=== PATIENT | female | born 1970 | race Caucasian/White ===

== ENCOUNTER → 2016-04-08 | Outpatient (CLI) | payer BC ==
[2016-04-08 17:14] LABS: EKG EKG PERFORMED
[2016-04-08 17:37] LABS: Basophils # (A) 0.1 k/uL (0-0.2); Basophils % (A) 0 %; CH 29.9; CHCM 32.5; Eosinophils # (A) 0.1 k/uL (0-0.7); Eosinophils % (A) 1 %; HCT 43.8 % (34.0-46.0); HDW 2.25; Luc # (Auto) 0.18; Luc % (Auto) 2; Lymphocytes # (A) 2.8 k/uL (1.0-4.8); Lymphocytes % (A) 25 %; MCH 29.6 pg (25.0-35.0); MCV 92.4 fL (80.0-100.0); Mean Platelet Volume 6.4; Monocytes # (A) 0.5 k/uL (0-1.0); Monocytes % (A) 4 %; Neutrophils # (A) 7.6 k/uL (1.3-7.7); Neutrophils % (A) 68 %; RBC 4.75 m/uL (3.80-5.40); WBC 11.1 k/uL (3.8-10.6); WBC (Perox) 11.25
[2016-04-08 17:48] LABS: ALT 40 U/L (9-52); AST 23 U/L (14-36); Alkaline Phosphatase 86 U/L (38-126); Anion Gap 8 mmol/L; Blood Urea Nitrogen 11 mg/dL (7-17); Calcium 8.8 mg/dL (8.4-10.2); Carbon Dioxide 28 mmol/L (22-30); Chloride 104 mmol/L (98-107); Glucose 172 mg/dL (74-99); Non-African American GFR(MDRD) >60 (>60 ml/min/1.73 sqM); Potassium 3.8 mmol/L (3.5-5.1); Sodium 140 mmol/L (137-145); Total Bilirubin 0.6 mg/dL (0.2-1.3); Total Protein 6.4 g/dL (6.3-8.2)
== END | disposition home or self-care (01) ==
LOC: LABWHC1 16:51
PROVIDERS: ATTEND Psychiatry & Neurology Pain Medicine
DX: G35 Multiple sclerosis (principal)
CPT/HCPCS: 36415; 80053; 85025; 86480; 93005

== ENCOUNTER 2016-06-22 11:54 | Inpatient (IN) | payer BC ==
[2016-06-22] MEDS ORDERED: IPRATROPIUM-ALBUTEROL 3 ML NEB INHALATION PRN (13:49)
[2016-06-22] MEDS ORDERED: LEVOFLOXACIN 750MG-D5W PMX 750 MG in DEXTROSE/WATER 1 150ML.BAG IVPB SCH (14:00)
[2016-06-22] MEDS: BUDESONIDE 0.5 MG/2 ML NEBU INHALATION SCH ×2 (14:11→19:59)
[2016-06-22 15:06] LABS: ALT 23 U/L (9-52); AST 17 U/L (14-36); Alkaline Phosphatase 72 U/L (38-126); Anion Gap 10 mmol/L; Blood Urea Nitrogen 10 mg/dL (7-17); Carbon Dioxide 29 mmol/L (22-30); Chloride 105 mmol/L (98-107); Glucose 96 mg/dL (74-99); Non-African American GFR(MDRD) >60 (>60 ml/min/1.73 sqM); Potassium 3.7 mmol/L (3.5-5.1); Sodium 144 mmol/L (137-145); Total Bilirubin 0.6 mg/dL (0.2-1.3); Total Protein 6.9 g/dL (6.3-8.2)
--- NOTE | 2016-06-22 15:19 | XR ---
EXAMINATION TYPE: XR chest 2V DATE OF EXAM: 06/22/2016 3:15 PM COMPARISON: 06/06/2015 TECHNIQUE: PA and lateral views submitted. HISTORY: Pneumonia FINDINGS: The lungs are clear and there is no pneumothorax, pleural effusion, or focal pneumonia. IMPRESSION: 1. No acute process.
[2016-06-22 16:06] LABS: Basophils # (A) 0.1 k/uL (0-0.2); Basophils % (A) 1 %; CH 30.1; CHCM 33.2; Eosinophils % (A) 0 %; HCT 40.2 % (34.0-46.0); HDW 2.57; Luc % (Auto) 4; Lymphocytes # (A) 3.3 k/uL (1.0-4.8); Lymphocytes % (A) 33 %; MCH 29.4 pg (25.0-35.0); MCHC 32.3 g/dL (31.0-37.0); MCV 91.1 fL (80.0-100.0); Mean Platelet Volume 7.6; Monocytes # (A) 0.6 k/uL (0-1.0); Monocytes % (A) 6 %; Neutrophils # (A) 5.8 k/uL (1.3-7.7); Neutrophils % (A) 56 %; RBC 4.41 m/uL (3.80-5.40); WBC 10.3 k/uL (3.8-10.6)
[2016-06-22] MEDS: IPRATROPIUM-ALBUTEROL 3 ML NEB INHALATION SCH ×2 (16:47→20:00)
[2016-06-22] MEDS: methylPREDNISolone SOD SUCCI 125 MG/2 ML VIAL IV SCH ×3 (17:57→23:53)
[2016-06-22] MEDS: HEPARIN SODIUM,PORCINE 5,000 UNIT/ML 1 ML VIAL SQ SCH ×3 (17:58→23:53)
[2016-06-22] MEDS: SODIUM CHLORIDE 0.9% 1,000 ML IV SCH (18:05)
[2016-06-22] MEDS: FAMOTIDINE 20 MG TAB PO SCH ×2 (18:08→23:53)
[2016-06-22 18:15] LABS: Glucose,Whole Blood 137 mg/dL (75-99)
[2016-06-22] MEDS: INSULIN LISPRO (humaLOG) 300 UNIT/3 ML VIAL SQ SCH ×2 (18:20→22:38)
[2016-06-22] MEDS: guaiFENesin 600 MG TABLET.ER PO SCH (18:22)
[2016-06-22] MEDS ORDERED: DICLOFENAC SODIUM GEL 100 GM TUBE TOPICAL PRN (18:59)
[2016-06-22] MEDS ORDERED: MORPHINE SULFATE IR 15 MG TABLET PO PRN (18:59)
[2016-06-22] MEDS ORDERED: LOPERAMIDE 2 MG CAP PO PRN (19:04)
[2016-06-22] MEDS ORDERED: ATORVASTATIN 10 MG TAB PO SCH (21:00)
[2016-06-22] MEDS ORDERED: MONTELUKAST 10 MG TAB PO SCH (21:00)
[2016-06-22 21:17] LABS: Glucose,Whole Blood 173 mg/dL (75-99)
[2016-06-22 22:03] LABS: Hemoglobin A1C 6.1 % (4.2-6.1)
--- NOTE | 2016-06-22 22:15 | CONS ---
DATE OF CONSULTATION: 06/22/2016. HISTORY OF PRESENT ILLNESS: The patient is a 46-year-old female who follows with Dr. Wynne. She states that she has been sick off and on from April since her grandchildren and her daughter and son-in-law moved in with them. She also has a significant history of MS and problems with hypertension, hypothyroidism, and chronic pain. She also states that she has problems due to her Capoxone causing her to have problems with diabetes mellitus and lupus. She does have a pain pump of morphine. She states that she has been having problems with diarrhea the last few days, problems with night sweats and sore throat. She has been sick since Monday and has been having a cough occasionally productive of yellow-green sputum. Subsequently due to her comorbidities and not getting any better, she was admitted into the hospital for further care. She was started on nebulizer treatments of Duoneb and Pulmicort and started on antibiotic therapy of Levaquin and steroids of Solu-Medrol which are appropriate at this time. The patient also has a significant history of asthma, dyslipidemia, hypertension, hypothyroidism, and migraines. She is examined. She has tight wheezes and cough. She denies any chest pain. She denies any nausea or vomiting. She has no swelling to her extremities at this time. Her allergies are to ADHESIVES, FENTANYL AND LATEX. Her home medications included: 1. Dilaudid pump. 2. Voltaren gel as needed. 3. Flector patch as needed. 4. Norvasc 5 mg daily. 5. Adipex 37.5 mg daily. 6. Morphine sulfate IR 15 mg every 5 hours as needed. 7. Robaxin 1000 mg q.i.d. 8. Amitiza 24 mcg twice a day. 9. Synthroid 100 mcg daily. 10. Copaxone 40 mg on Monday, Monday and Monday. 11. Nuedexta 20/10 mg 1 cap twice a day. 12. Cymbalta 30 mg daily. 13. Vitamin D3 2000 units daily. 14. Lipitor 10 mg daily. 15. ProAir 2 puffs every 6 hours as needed. FAMILY HISTORY: Significant for both parents being alive. She does not know much about them. She is estranged from them, other than father has a history of hypertension. SOCIAL HISTORY: The patient is . She has 5 children, all girls, one girl, does have a history of epilepsy. She is a never smoker. No marijuana. No recreational drugs or alcohol use. 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 She wears glasses. Her past surgical history is significant for hysterectomy and tubal ligation, though she still has ovaries. She has had two tummy tucks, rhinoplasty, bladder suspension, breast surgery implant and morphine pump, right knee arthroscopy, T10 laminectomy for her spinal cord stimulator and removal. PAST MEDICAL HISTORY: Significant for MS, migraines, myalgia, asthma, dyslipidemia, hypertension, hypothyroidism, degenerative disc disease, febrile seizures as a child, uterine cancer, chronic pain, positive for lupus and diabetes mellitus, and both of these complications from Copaxone. Review of systems was completed with patient. Head to toe assessment was done and is negative other than what is noted in her HPI. On physical examination, vital signs show temperature of 97.9, heart rate 88, respiratory rate 20, blood pressure is 110/85. Oxygen saturation on room air is 95%. Labs show sodium of 144, potassium 3.7, chloride 105, carbon dioxide 29, BUN 10, creatinine 0.7. Glucose is 96. Calcium is 9, total bilirubin 0.6, AST 17, ALT 23, alkaline phosphatase 72, total protein 6.9, albumin 3.9. Chest x-ray shows no acute process. GENERAL: She is a 46-year-old female, with mild/mod respiratory distress. HEENT: Head is atraumatic, normocephalic. Pupils are equal, reactive. Mucous membranes slightly dry. NECK: Short, supple. LUNGS: Sounds with scattered wheezes heard throughout, tight. CARDIOVASCULAR: S1 and S2 is heard; regular. No gallop. ABDOMEN: Soft. Bowel sounds are heard, nontender. No obvious masses or organomegaly palpated. No rebound or rigidity. EXTREMITIES: No edema. Dorsalis pedis pulses palpable. NEUROLOGIC: She is awake, alert. IMPRESSION: 1. Acute exacerbation asthma. 2. Multiple sclerosis. 3. Myalgia with chronic pain for which she has a morphine pump. 4. History of hypertension. 5. Hypothyroidism. 6. Degenerative disc disease. 7. Diarrhea. PLAN: Patient's medications have been reviewed. Agree with nebulizer treatments, antibiotic therapy and IV steroids. Continue with GI and DVT prophylaxis. We will add Mucinex, glucose checks and insulin sliding scale. We will also order flutter therapy and incentive spirometer. Oxygen to keep sats 90% or better. Increase activity as tolerated. We will wait for rest of her labs results. CBC is pending. Cultures as needed. Thank you for the consultation. Will continue to follow patient closely with you and make further changes as necessary. I performed a history and physical examination of this patient and discussed the same with the dictator. I agree with the dictator's note. Any additional findings/opinions, etc. will be noted. KYARA
[2016-06-22] MEDS: Dextromethorphan Hbr/Quinidine [Nuedexta 20-10 Mg Capsule] PO SCH (22:40)
[2016-06-22] MEDS: METHOCARBAMOL 500 MG TAB PO SCH (22:40)
[2016-06-23] MEDS: methylPREDNISolone SOD SUCCI 125 MG/2 ML VIAL IV SCH (05:44)
[2016-06-23] MEDS ORDERED: LEVOTHYROXINE 100 MCG TAB PO SCH (06:30)
[2016-06-23] MEDS: METHOCARBAMOL 500 MG TAB PO SCH (07:36)
[2016-06-23] MEDS: SODIUM CHLORIDE 0.9% 1,000 ML IV SCH (07:36)
[2016-06-23 07:42] LABS: Glucose,Whole Blood 163 mg/dL (75-99)
[2016-06-23] MEDS: BUDESONIDE 0.5 MG/2 ML NEBU INHALATION SCH (08:56)
[2016-06-23] MEDS: IPRATROPIUM-ALBUTEROL 3 ML NEB INHALATION SCH (08:56)
[2016-06-23] MEDS ORDERED: amLODIPine 5 MG TAB PO SCH (09:00)
[2016-06-23] MEDS ORDERED: DULoxetine HCL 30 MG CAPSULE.DR PO SCH (09:00)
[2016-06-23] MEDS ORDERED: Phentermine Hcl [Adipex-P] 37.5 MG PO SCH (09:00)
[2016-06-23] MEDS: Dextromethorphan Hbr/Quinidine [Nuedexta 20-10 Mg Capsule] PO SCH (09:29)
[2016-06-23] MEDS: HEPARIN SODIUM,PORCINE 5,000 UNIT/ML 1 ML VIAL SQ SCH (09:29)
--- NOTE | 2016-06-23 09:31 | P.DS ---
Providers Date of admission: 06/22/16 12:56 Expected date of discharge: 06/23/16 Attending physician: Sean Hunt Consults: 06/22/16 13:44 Consult Physician Urgent Consulting Provider: Tuyet Nagy Consult Reason/Comments: asthma Do you want consulting provider notified?: Yes Primary care physician: Sean Hunt [facility] Course: 46-year-old female was a direct admit from Dr. Hunt's office on June 22 patient stated she was being seen for shortness of breath patient stated that she just felt like she could not breathe. She states the symptoms have been on and off since April of this year. She states that all started to occur when her grandchildren her daughter and daughter has been moved in with them. She states she has a significant history of multiple sclerosis has a pain contract with a pain pump of morphine and place. Patient was seen in the office was noted to be audibly wheezing was advised to come into the hospital to be admitted. Patient was started on updrafts IV Solu-Medrol and DuoNeb and Pulmicort and IV antibiotic in the form of Levaquin. Patient's symptoms significant only improved and patient was adamant about being discharged on June 23 to home. Patient was requesting a nebulizer machine stated that she did not have one at home this was set up to the patient case manager. Patient did have poor IV access anesthesiologist was not able to obtain IV access. Patient received a couple doses of IV Solu-Medrol before losing IV access. Patient's home meds worse be started as appropriate and on the day of discharge patient was not wheezing nonproductive dry cough patient felt that she was acting back to baseline was adamant about being discharged stated she would see continuous pillowcase cutter doctor in an outpatient setting next week and with see Dr. Hunt in the office tomorrow . Patient's lungs were clear did not qualify home O2. Subsequently the patient was discharged home Impression discharge diagnosis Present on admission shortness of breath with audible wheezing due to an acute exacerbation of asthma Mild asthma History of multiple sclerosis Chronic pain on opiate and a pain pump of morphine Hypothyroid on supplements myalgia with chronic pain with morphine pump History of chronic diarrhea Acute exacerbation of asthma The above dictated assessment and findings were discussed with dr marilee Howard and the plan of care have been dictated as directed. Olesya Poe nurse practitioner acting as a scribe for dr hunt Plan - Discharge Summary New Discharge Prescriptions: Levofloxacin [Levaquin] 500 mg PO DAILY #7 tab Loperamide [Imodium] 2 mg PO QID PRN #30 cap PRN Reason: Diarrhea Montelukast [Singulair] 10 mg PO DAILY #30 tab guaiFENesin [Mucinex] 1,200 mg PO Q12HR #60 tablet.er methylPREDNISolone Dose Pack [Medrol Dose Pack] 4 mg PO DIRECTED #21 package Discharge Medication List Albuterol Sulfate [Proair Hfa] 2 puff INHALATION RT-Q6H PRN 09/26/15 [History] Atorvastatin [Lipitor] 10 mg PO DAILY 09/26/15 [History] DULoxetine HCL [Cymbalta] 30 mg PO DAILY 09/26/15 [History] Diclofenac Sodium [Voltaren Gel] 4 gm TOPICAL DAILY PRN 09/26/15 [History] Lubiprostone [Amitiza] 24 mcg PO BID 09/26/15 [History] Phentermine HCl [Adipex-P] 37.5 mg PO QAM 09/26/15 [History] amLODIPine BESYLATE [Norvasc] 5 mg PO DAILY 09/26/15 [History] Cholecalciferol [Vitamin D3] 2,000 unit PO DAILY 02/24/16 [History] Diclofenac Epolamine [Flector 1.3% Patch] 2 patch TRANSDERM DAILY PRN 02/24/16 [ History] Glatiramer Acetate [Copaxone] 40 mg SQ MOWEFR 02/24/16 [History] Levothyroxine Sodium [Synthroid] 100 mcg PO DAILY 02/24/16 [History] Methocarbamol [Robaxin] 1,000 mg PO QID 02/24/16 [History] Morphine Sulfate Ir [MSIR] 15 mg PO Q5H PRN 02/24/16 [History] Dextromethorphan HBr/Quinidine [Nuedexta 20-10 mg Capsule] 1 cap PO BID [History] Morphine Pain Pump 5 mg EPIDURAL DAILY 06/22/16 [History] Ipratropium-Albuterol Nebulize [Duoneb 0.5 mg-3 mg/3 ml Soln] 3 ml INHALATION RT -QID ampul.neb 06/23/16 [Rx] Levofloxacin [Levaquin] 500 mg PO DAILY #7 tab 06/23/16 [Rx] Loperamide [Imodium] 2 mg PO QID PRN #30 cap 06/23/16 [Rx] Montelukast [Singulair] 10 mg PO DAILY #30 tab 06/23/16 [Rx] guaiFENesin [Mucinex] 1,200 mg PO Q12HR #60 tablet.er 06/23/16 [Rx] methylPREDNISolone Dose Pack [Medrol Dose Pack] 4 mg PO DIRECTED #21 package 06/23/16 [Rx] Follow up Appointment(s)/Referral(s): Sean Hunt MD [Primary Care Provider] - 06/24/16 Tuyet Nagy DO [Doctor of Osteopathic Medicine] - 1 Week Discharge Disposition: HOME SELF-CARE
[2016-06-23] MEDS: INSULIN LISPRO (humaLOG) 300 UNIT/3 ML VIAL SQ SCH (09:34)
[2016-06-23] MEDS: guaiFENesin 600 MG TABLET.ER PO SCH (09:42)
[2016-06-23] MEDS: FAMOTIDINE 20 MG TAB PO SCH (09:42)
[2016-06-23 09:54] VITALS: BP 130/71; RESP 16; TEMP 99.2
[2016-06-23 10:11] VITALS: PULSE 85
--- NOTE | 2016-06-23 11:16 | HP ---
DATE OF ADMISSION: CHIEF COMPLAINT: A 46-year-old white female who was admitted to the hospital for outpatient failure of treatment for significant cough, congestion, shortness of breath, asthma exacerbation despite oral steroids and updraft treatments. She has been around many sick people including children and family members. She has immune deficiency with multiple sclerosis, hypothyroidism, hypertension. She has some chronic pain also. Her Copaxone has given her diabetes mellitus and lupus and difficulties with this. She is on a pain pump for morphine. She had some diarrhea for the past few days also and productive cough, green-yellow sputum. She was admitted after failing outpatient treatment. She is on home medicines: 1. Dilaudid pump. 2. Voltaren Gel. 3. Flector patch. 4. Norvasc. 5. Adipex. 6. Morphine sulfate. 7. Robaxin. 8. Amitiza. 9. Synthroid. 10. Copaxone. 11. Nuedexta. 12. Cymbalta. 13. Vitamin D3. 14. Lipitor. 15. ProAir. FAMILY HISTORY: Estranged from her parents. Father had hypertension. SOCIAL HISTORY: , 5 children, all girls. ( ). She denies smoking. No marijuana. No recreational drug use or alcohol use. She is not working every since 2009. SURGICAL HISTORY: She has hysterectomy, tubal ligation, 2 tummy tucks, rhinoplasty, bladder suspension, breast surgery implant, morphine ( ), right knee arthroscopy, T10 laminectomy, spinal cord stimulator removal. She has multiple sclerosis, migraines, myalgias, asthma, dyslipidemia, hypertension, hypothyroidism, degenerative disc disease, febrile seizure as a child, uterine cancer, chronic pain, lupus, diabetes mellitus. REVIEW OF SYSTEMS: A 14-point review of systems negative except for as mentioned in HPI. Temperature 97.9, respiratory rate 25 to 35. She has blood pressure 110/85. She is 95% to 93% on room air. She has audible wheezing on exam. CARDIOVASCULAR: S1 and S2. LUNGS: Shows expiratory and inspiratory wheezes x4. Some mild retractions. CARDIAC: Tachycardia, S1, S2. Heart rate is 117. GI: Distended due to obesity. He ABDOMEN: Soft, distended, obesity. EXTREMITIES: No cyanosis, clubbing, edema. VASCULAR: Normal dorsalis pedis, posterior tibial and radial pulse. Liver enzymes are normal. Calcium os 9. Bilirubin 0.6. Creatinine is 0.7. HEAD: Normocephalic, atraumatic. Pupils equal, and reactive to light and accommodation. NECK: Supple. LUNGS: As mentioned. EXTREMITIES: No cyanosis, clubbing, edema. NEUROLOGIC: Alert and oriented x3. ASSESSMENT: 1. Acute asthma exacerbation. 2. Tracheobronchitis. 3. Multiple sclerosis. 4. Hypoxemic respiratory failure. 5. ( ). 6. Chronic pain. 7. Hypertension. 8. Hypothyroidism. 9. Degenerative disc disease. 10. Diarrhea. IV Levaquin and IV steroids, updrafts albuterol and Atrovent, adding Mucinex. Pulmonary consultation. Please see further orders.
[2016-06-24] MEDS ORDERED: Glatiramer Acetate [Copaxone] 40 MG SQ SCH (12:00)
== END 2016-06-23 10:25 | disposition home or self-care (01) | DRG 202 ==
LOC: 6PED 12:56
PROVIDERS: ADMIT Family Medicine; ATTEND Family Medicine
DX: J45.21 Mild intermittent asthma with (acute) exacerbation (principal); D84.9 Immunodeficiency, unspecified; M32.9 Systemic lupus erythematosus, unspecified; G35 Multiple sclerosis; E11.9 Type 2 diabetes mellitus without complications; E03.9 Hypothyroidism, unspecified; E78.5 Hyperlipidemia, unspecified; G89.29 Other chronic pain; I10 Essential (primary) hypertension; M79.1 Myalgia; G43.909 Migraine, unspecified, not intractable, without status migrainosus; R19.7 Diarrhea, unspecified; J02.9 Acute pharyngitis, unspecified; E66.9 Obesity, unspecified; Z79.891 Long term (current) use of opiate analgesic; Z79.899 Other long term (current) drug therapy; Z91.040 Latex allergy status; Z68.39 Body mass index [BMI] 39.0-39.9, adult; Z88.8 Allergy status to other drugs, medicaments and biological substances; Z82.49 Family history of ischemic heart disease and other diseases of the circulatory system
CPT/HCPCS: 71020; 80053; 83036; 85025; 94640; 94667

== ENCOUNTER → 2017-01-05 | Outpatient (CLI) | payer BC, MEDICARE ==
[2017-01-05 18:10] LABS: Basophils # (A) 0.1 k/uL (0-0.2); Basophils % (A) 1 %; CH 30.3; CHCM 32.5; Eosinophils # (A) 0.3 k/uL (0-0.7); Eosinophils % (A) 3 %; HDW 2.33; HGB 14.4 gm/dL (11.4-16.0); Luc # (Auto) 0.11; Luc % (Auto) 1; Lymphocytes # (A) 3.3 k/uL (1.0-4.8); Lymphocytes % (A) 36 %; MCH 29.4 pg (25.0-35.0); MCHC 31.4 g/dL (31.0-37.0); MCV 93.8 fL (80.0-100.0); Mean Platelet Volume 7.1; Monocytes # (A) 0.4 k/uL (0-1.0); Monocytes % (A) 5 %; Neutrophils # (A) 4.9 k/uL (1.3-7.7); Neutrophils % (A) 54 %; RDW 14.2 % (11.5-15.5); WBC (Perox) 9.47
[2017-01-05 18:45] LABS: Appearance,Urine Cloudy (Clear); Bilirubin,Urine Negative (Negative); Calcium Oxalate Crystals,Urine Many /hpf; Glucose,Urine (UA) Negative (Negative); Ketones,Urine Trace (Negative); Leukocyte Esterase,Urine Negative (Negative); Mucus,Urine Few /hpf; Nitrite,Urine Negative (Negative); PH, Urine 5.5 (5.0-8.0); Particle Count 13239; Protein,Urine 1+ (Negative); Specific Gravity,Urine 1.027 (1.001-1.035); Squamous Epithelial Cell,Urine 6 /hpf (0-4); UA Billing (MACRO vs. MICRO) MICRO; WBC,Urine 1 /hpf (0-5)
== END | disposition home or self-care (01) ==
LOC: LABWHC1 17:15
PROVIDERS: ATTEND Psychiatry & Neurology Pain Medicine
DX: G35 Multiple sclerosis (principal)
CPT/HCPCS: 36415; 81001; 85025

== ENCOUNTER → 2017-01-09 | Outpatient (CLI) | payer BC, MEDICARE ==
[2017-01-09 13:38] VITALS: BP 119/85; PULSE 93; RESP 16; TEMP 98.3; BMI 42.0
--- NOTE | 2017-01-09 16:29 | P.HPBAR ---
Bariatric H&P - History & Physicial H&P Date: 01/09/17 History & Physicial: Visit/CC: Initial Visit Patient initial contact: Initial weight: 121.563 kg Initial weight in pounds: 268.00 Height: 5 ft 7 in Initial BMI: 42.0 Last weight: Current weight: 121.563 kg Current weight in pounds: 268.00 Current BMI: 42.0 [place] body weight (based on NIH guidelines): 61.235 kg Excess body weight loss: 0.0% The patient is a 46 year-old F who presents for Bariatric Assessment. Patient presents today for new patient consultation. She has had lifetime problems obesity. She has gained approximately 100 pounds over the last 5 years. She has a history of MS. Past Medical History Past Medical History: Asthma, Neurologic Disorder, Thyroid Disorder Additional Past Medical History / Comment(s): MS, DJD, back pain History of Any Multi-Drug Resistant Organisms: None Reported Past Surgical History: Hysterectomy, Orthopedic Surgery, Tubal Ligation Additional Past Surgical History / Comment(s): rhinoplasty, bladder suspension, breast sx, morphine pump Past Anesthesia/Blood Transfusion Reactions: No Reported Reaction Past Psychological History: No Psychological Hx Reported Smoking Status: Never smoker Past Alcohol Use History: None Reported Past Drug Use History: None Reported - Past Family History Father Family Medical History: Hypertension Mother Family Medical History: Hypertension Surgical - Exam Vital Signs Temp Pulse Resp BP 98.3 F 93 16 119/85 01/09/17 13:35 01/09/17 13:35 01/09/17 13:35 01/09/17 13:35 - General well developed, no distress - Eyes PERRL - Abdomen Abdomen: soft, non tender Bariatric Assessment & Plan Plan: I had a lengthy discussion with the patient regarding sleeve gastrectomy. I went over the risks and benefits of procedure including conversion to the open procedure and injury to the stomach liver spleen I also discussed the possibility of sleeve gastrectomy perforation, bleeding or scarring. The patient will be scheduled for EGD. Bariatric Checklist Checklist: Plan: Checklist: EGD: 1. Hiatal hernia: 2. H. Pylori: HgbA1c: Vitamin D: Smoking: Never smoker Primary care physician referral: MULLALLY Psychiatry clearance: Cardiology clearance: Sleep study: Diet journal: VTE risk score: VTE risk level: Rehab needs at discharge:
== END | disposition home or self-care (01) ==
LOC: BARWHC3 13:07
PROVIDERS: ATTEND Surgery
DX: E66.01 Morbid (severe) obesity due to excess calories (principal); Z68.41 Body mass index [BMI] 40.0-44.9, adult
CPT/HCPCS: 99201

== ENCOUNTER 2017-01-10 17:27 | Emergency (ER) | payer BC, MEDICARE ==
[2017-01-10 17:32] VITALS: TEMP 98.2
[2017-01-10] MEDS ORDERED: SODIUM CHLORIDE 0.9% 1,000 ML IV STA ×2 (17:42→17:43)
--- NOTE | 2017-01-10 17:57 | ED ---
Recheck HPI - General Chief Complaint: Recheck/Abnormal Lab/Rx Stated Complaint: Dehydrated Time Seen by Provider: 01/10/17 17:40 Source: patient Mode of arrival: ambulatory Limitations: no limitations - History of Present Illness Initial Comments: Patient has a history of MS, states she was sent from her neurologist office today for dehydration. Patient states she had "crystals in her urine" & patient states they're concerned her diabetes may be uncontrolled. Patient states she is on metformin. Has no history of DKA. Patient states she does feel dehydrated. Patient states she has exacerbation of her MS pain and muscle spasms in her back. States her neurologist increased her morphine intrathecal pump dosing today in office. However neurologist wanted her to go to Hospital for IV hydration. - Related Data Home Medications Medication Instructions Recorded Confirmed Albuterol Sulfate [Proair Hfa] 2 puff INHALATION RT-Q6H PRN 09/26/15 09/02/16 Atorvastatin [Lipitor] 10 mg PO DAILY 09/26/15 09/02/16 DULoxetine HCL [Cymbalta] 30 mg PO DAILY 09/26/15 09/02/16 Diclofenac Sodium [Voltaren Gel] 4 gm TOPICAL DAILY PRN 09/26/15 09/02/16 Lubiprostone [Amitiza] 24 mcg PO BID 09/26/15 09/02/16 Phentermine HCl [Adipex-P] 37.5 mg PO QAM 09/26/15 09/02/16 amLODIPine BESYLATE [Norvasc] 5 mg PO DAILY 09/26/15 09/02/16 Diclofenac Epolamine [Flector 1.3% 2 patch TRANSDERM DAILY PRN 02/24/16 09/02/16 Patch] Glatiramer Acetate [Copaxone] 40 mg SQ MOWEFR 02/24/16 09/02/16 Levothyroxine Sodium [Synthroid] 100 mcg PO DAILY 02/24/16 09/02/16 Methocarbamol [Robaxin] 1,000 mg PO QID 02/24/16 09/02/16 Morphine Sulfate Ir [MSIR] 15 mg PO Q5H PRN 02/24/16 09/02/16 Dextromethorphan HBr/Quinidine 1 cap PO BID 06/22/16 09/02/16 [Nuedexta 20-10 mg Capsule] Morphine Pain Pump 5 mg EPIDURAL DAILY 06/22/16 09/02/16 metFORMIN HCL [Metformin HCl] 125 mg PO DAILY 08/31/16 09/02/16 Previous Rx's Medication Instructions Recorded Ipratropium-Albuterol Nebulize 3 ml INHALATION RT-QID ampul.neb 06/23/16 [Duoneb 0.5 mg-3 mg/3 ml Soln] Loperamide [Imodium] 2 mg PO QID PRN #30 cap 06/23/16 Montelukast [Singulair] 10 mg PO DAILY #30 tab 06/23/16 Allergies Allergy/AdvReac Type Severity Reaction Status Date / Time adhesive Allergy Rash/Hives Verified 01/10/17 18:43 adhesive tape Allergy Rash/Hives Verified 01/10/17 18:43 fentanyl Allergy Rash/Hives Verified 01/10/17 18:43 latex Allergy Rash/Hives Verified 01/10/17 18:43 Review of Systems ROS Statement: Those systems with pertinent positive or pertinent negative responses have been documented in the HPI. ROS Other: All systems not noted in ROS Statement are negative. Constitutional: Denies: fever, chills, weakness Eyes: Denies: vision change ENT: Denies: ear pain, throat pain, congestion Respiratory: Denies: cough, dyspnea Cardiovascular: Denies: chest pain, palpitations Endocrine: Reports: fatigue. Denies: polydipsia, polyuria Gastrointestinal: Denies: abdominal pain, nausea, vomiting Genitourinary: Denies: urgency, dysuria, frequency, hematuria, discharge Musculoskeletal: Reports: back pain (Chronic) Skin: Denies: rash Neurological: Denies: headache, weakness, numbness, paresthesias, confusion Past Medical History Past Medical History: Asthma, Neurologic Disorder, Thyroid Disorder Additional Past Medical History / Comment(s): MS, DJD, back pain History of Any Multi-Drug Resistant Organisms: None Reported Past Surgical History: Hysterectomy, Orthopedic Surgery, Tubal Ligation Additional Past Surgical History / Comment(s): rhinoplasty, bladder suspension, breast sx, morphine pump Past Anesthesia/Blood Transfusion Reactions: No Reported Reaction Past Psychological History: No Psychological Hx Reported Smoking Status: Never smoker Past Alcohol Use History: None Reported Past Drug Use History: None Reported - Past Family History Father Family Medical History: Hypertension Mother Family Medical History: Hypertension General Exam - General Exam Comments Initial Comments: Patient laying on side on the bed. Well appearing. Appears mildly fatigued. Well-groomed well-dressed. Calm, pleasant. Limitations: no limitations General appearance: alert, in no apparent distress Head exam: Present: atraumatic, normocephalic Eye exam: Present: normal appearance, PERRL, EOMI ENT exam: Present: mucous membranes moist, normal external ear exam Neck exam: Present: normal inspection, full ROM Respiratory exam: Present: normal lung sounds bilaterally. Absent: respiratory distress, wheezes, rales, rhonchi Cardiovascular Exam: Present: regular rate, normal rhythm GI/Abdominal exam: Present: soft. Absent: distended, tenderness, guarding, rebound, rigid Extremities exam: Present: normal inspection Back exam: Absent: tenderness, muscle spasm, paraspinal tenderness, vertebral tenderness Neurological exam: Present: alert, oriented X3, CN II-XII intact. Absent: altered, motor sensory deficit Psychiatric exam: Present: normal affect, normal mood Skin exam: Present: warm, dry, intact, normal color. Absent: rash Course Vital Signs 01/10/17 17:28 Temperature 98.2 F Pulse Rate 101 H Respiratory 18 Rate Blood Pressure 128/75 O2 Sat by Pulse 98 Oximetry Medical Decision Making - Medical Decision Making Patient sent for IV hydration. Patient has no focal abnormalities on exam, including no focal neuro deficits. Infection on urinalysis. Patient with trace ketones. Normal glucose on basic metabolic panel. No significant lab abnormalities. Patient does not appear significantly dehydrated by lab work or exam. Patient was given IV fluids in the ER. Patient updated with all results. Feels comfortable going home. Patient to follow-up with her neurologist regarding her chronic MS symptoms. Return immediately if new or worsening symptoms. Discussed need for evaluation by urologist if her concern for calcium crystals in urine persists. - Lab Data Result diagrams: 01/10/17 18:06 01/10/17 18:06 Lab Results 01/10/17 01/10/17 01/10/17 Range/Units 18:06 18:06 18:06 WBC 10.3 (3.8-10.6) k/uL RBC 4.84 (3.80-5.40) m/uL Hgb 14.4 (11.4-16.0) gm/dL Hct 44.4 (34.0-46.0) % MCV 91.8 (80.0-100.0) fL MCH 29.7 (25.0-35.0) pg MCHC 32.3 (31.0-37.0) g/dL RDW 13.0 (11.5-15.5) % Plt Count 392 (150-450) k/uL Neutrophils % 55 % Lymphocytes % 35 % Monocytes % 5 % Eosinophils % 3 % Basophils % 1 % Neutrophils # 5.6 (1.3-7.7) k/uL Lymphocytes # 3.6 (1.0-4.8) k/uL Monocytes # 0.5 (0-1.0) k/uL Eosinophils # 0.4 (0-0.7) k/uL Basophils # 0.1 (0-0.2) k/uL Sodium (137-145) mmol/L Potassium (3.5-5.1) mmol/L Chloride (98-107) mmol/L Carbon Dioxide (22-30) mmol/L Anion Gap mmol/L BUN (7-17) mg/dL Creatinine (0.52-1.04) mg/dL Est GFR (MDRD) Af Amer (>60 ml/min/1.73 sqM) Est GFR (MDRD) Non-Af (>60 ml/min/1.73 sqM) Glucose (74-99) mg/dL Calcium (8.4-10.2) mg/dL Urine Color Yellow Urine Appearance Cloudy H (Clear) Urine pH 5.5 (5.0-8.0) Ur Specific [place] 1.026 (1.001-1.035) Urine Protein 1+ H (Negative) Urine Glucose (UA) Negative (Negative) Urine Ketones Trace H (Negative) Urine Blood Negative (Negative) Urine Nitrite Negative (Negative) Urine Bilirubin Negative (Negative) Urine Urobilinogen 2.0 (<2.0) mg/dL Ur Leukocyte Esterase Negative (Negative) Urine RBC <1 (0-5) /hpf Urine WBC 2 (0-5) /hpf Ur Squamous Epith Cells 11 H (0-4) /hpf Urine Bacteria Occasional H (None) /hpf Hyaline Casts 26 H (0-2) /lpf Urine Mucus Occasional H (None) /hpf Urine HCG, Qual Not Detected (Not Detectd) 01/10/17 Range/Units 18:06 WBC (3.8-10.6) k/uL RBC (3.80-5.40) m/uL Hgb (11.4-16.0) gm/dL Hct (34.0-46.0) % MCV (80.0-100.0) fL MCH (25.0-35.0) pg MCHC (31.0-37.0) g/dL RDW (11.5-15.5) % Plt Count (150-450) k/uL Neutrophils % % Lymphocytes % % Monocytes % % Eosinophils % % Basophils % % Neutrophils # (1.3-7.7) k/uL Lymphocytes # (1.0-4.8) k/uL Monocytes # (0-1.0) k/uL Eosinophils # (0-0.7) k/uL Basophils # (0-0.2) k/uL Sodium 140 (137-145) mmol/L Potassium 4.1 (3.5-5.1) mmol/L Chloride 102 (98-107) mmol/L Carbon Dioxide 29 (22-30) mmol/L Anion Gap 9 mmol/L BUN 9 (7-17) mg/dL Creatinine 0.71 (0.52-1.04) mg/dL Est GFR (MDRD) Af Amer >60 (>60 ml/min/1.73 sqM) Est GFR (MDRD) Non-Af >60 (>60 ml/min/1.73 sqM) Glucose 108 H (74-99) mg/dL Calcium 9.5 (8.4-10.2) mg/dL Urine Color Urine Appearance (Clear) Urine pH (5.0-8.0) Ur Specific [place] (1.001-1.035) Urine Protein (Negative) Urine Glucose (UA) (Negative) Urine Ketones (Negative) Urine Blood (Negative) Urine Nitrite (Negative) Urine Bilirubin (Negative) Urine Urobilinogen (<2.0) mg/dL Ur Leukocyte Esterase (Negative) Urine RBC (0-5) /hpf Urine WBC (0-5) /hpf Ur Squamous Epith Cells (0-4) /hpf Urine Bacteria (None) /hpf Hyaline Casts (0-2) /lpf Urine Mucus (None) /hpf Urine HCG, Qual (Not Detectd) Disposition Clinical Impression: Dehydration symptoms Disposition: HOME SELF-CARE Condition: Good Instructions: Dehydration (ED) Additional Instructions: Follow-up with your neurologist as directed. Referrals: Sean Wynne MD [Primary Care Provider] - 1-2 days
[2017-01-10] MEDS ORDERED: ONDANSETRON 4 MG/2 ML VIAL IVP STA (18:11)
[2017-01-10 18:14] LABS: Basophils # (A) 0.1 k/uL (0-0.2); Basophils % (A) 1 %; CH 29.3; CHCM 32.1; Eosinophils # (A) 0.4 k/uL (0-0.7); Eosinophils % (A) 3 %; HCT 44.4 % (34.0-46.0); HGB 14.4 gm/dL (11.4-16.0); Luc # (Auto) 0.14; Luc % (Auto) 1; Lymphocytes # (A) 3.6 k/uL (1.0-4.8); Lymphocytes % (A) 35 %; MCH 29.7 pg (25.0-35.0); MCHC 32.3 g/dL (31.0-37.0); MCV 91.8 fL (80.0-100.0); Mean Platelet Volume 6.5; Monocytes # (A) 0.5 k/uL (0-1.0); Monocytes % (A) 5 %; Neutrophils # (A) 5.6 k/uL (1.3-7.7); Neutrophils % (A) 55 %; RBC 4.84 m/uL (3.80-5.40); WBC 10.3 k/uL (3.8-10.6)
[2017-01-10 18:15] LABS: Appearance,Urine Cloudy (Clear); Bacteria,Urine Occasional /hpf; Bilirubin,Urine Negative (Negative); Glucose,Urine (UA) Negative (Negative); Ketones,Urine Trace (Negative); Leukocyte Esterase,Urine Negative (Negative); Mucus,Urine Occasional /hpf; Nitrite,Urine Negative (Negative); PH, Urine 5.5 (5.0-8.0); Particle Count 7845; Protein,Urine 1+ (Negative); RBC,Urine <1 /hpf (0-5); Specific Gravity,Urine 1.026 (1.001-1.035); Squamous Epithelial Cell,Urine 11 /hpf (0-4); UA Billing (MACRO vs. MICRO) MICRO; WBC,Urine 2 /hpf (0-5)
[2017-01-10 18:26] LABS: Anion Gap 9 mmol/L; Blood Urea Nitrogen 9 mg/dL (7-17); Calcium 9.5 mg/dL (8.4-10.2); Carbon Dioxide 29 mmol/L (22-30); Chloride 102 mmol/L (98-107); Glucose 108 mg/dL (74-99); Non-African American GFR(MDRD) >60 (>60 ml/min/1.73 sqM); Potassium 4.1 mmol/L (3.5-5.1); Sodium 140 mmol/L (137-145)
[2017-01-10 18:52] VITALS: BP 132/61; PULSE 89; RESP 16
== END 2017-01-10 18:52 | disposition home or self-care (01) ==
LOC: EC 17:27
DX: E86.0 Dehydration (principal); E07.9 Disorder of thyroid, unspecified; E11.9 Type 2 diabetes mellitus without complications; G35 Multiple sclerosis; Z79.891 Long term (current) use of opiate analgesic; Z79.84 Long term (current) use of oral hypoglycemic drugs; Z79.899 Other long term (current) drug therapy; Z88.5 Allergy status to narcotic agent; Z91.040 Latex allergy status; Z91.048 Other nonmedicinal substance allergy status
CPT/HCPCS: 99284 ×2; 96374 ×2; 96361 ×2; 36415; 80048; 85025; 81001; 81025; J2405

== ENCOUNTER → 2017-03-20 | Outpatient (CLI) | payer BC, MEDICARE ==
[2017-03-20 15:12] VITALS: BP 131/87; PULSE 120; RESP 16; TEMP 98; BMI 42.0
--- NOTE | 2017-03-20 16:23 | P.HPBAR ---
Bariatric H&P - History & Physicial H&P Date: 03/20/17 History & Physicial: Visit/CC: egd follow-up Patient initial contact: Initial weight: 121.563 kg Initial weight in pounds: 268.00 Height: 5 ft 7 in Initial BMI: 42.0 Last weight: Current weight: 121.676 kg Current weight in pounds: 268.00 Current BMI: 42.0 [place] body weight (based on NIH guidelines): 61.235 kg Excess body weight loss: 0.0% The patient is a 46 year-old F who presents for Bariatric Assessment. The patient presents today for new patient consultation for sleeve gastrectomy. She has had lifetime problems obesity. The patient attended informational seminar in November. She is interested in the gastric sleeve. Her BMI is 42 Past Medical History Past Medical History: Asthma, Diabetes Mellitus, Hypertension, Musculoskeletal Disorder, Neurologic Disorder, Thyroid Disorder Additional Past Medical History / Comment(s): MS, DJD, back pain, History of Any Multi-Drug Resistant Organisms: None Reported Past Surgical History: Hysterectomy, Orthopedic Surgery, Tubal Ligation Additional Past Surgical History / Comment(s): rhinoplasty, bladder suspension, breast sx, morphine pump , RT KNEE SCOPE, TUMMY TUCK, SCS DEVICE INSERTED AND REMOVED-DOES NOT HAVE T-11 IN SPINE. Past Anesthesia/Blood Transfusion Reactions: Postoperative Nausea & Vomiting ( PONV) Smoking Status: Never smoker - Past Family History Father Family Medical History: Hypertension Mother Family Medical History: Hypertension Surgical - Exam Vital Signs Temp Pulse Resp BP 98.0 F 120 H 16 131/87 03/20/17 15:08 03/20/17 15:08 03/20/17 15:08 03/20/17 15:08 - General well developed, no distress - Eyes PERRL - ENT normal pinna - Neck no masses - Respiratory normal expansion - Cardiovascular Rhythm: regular - Abdomen Abdomen: soft, non tender Bariatric Assessment & Plan Plan: Morbid obesity with BMI 42. Patient will undergo workup for sleeve gastrectomy. She'll be scheduled for EGD. I went over the risks and benefits of procedure. I discussed with the risk of staple line disruption bleeding or scarring. She will follow-up in 8 weeks after her EGD. Bariatric Checklist Checklist: Plan: Checklist: EGD: 1. Hiatal hernia: 2. H. Pylori: HgbA1c: Vitamin D: Smoking: Never smoker Primary care physician referral: D[facility]IE Psychiatry clearance: Cardiology clearance: Sleep study: Diet journal: VTE risk score: VTE risk level: Rehab needs at discharge:
== END | disposition home or self-care (01) ==
LOC: BARWHC3 14:06
PROVIDERS: ATTEND Surgery
DX: E66.01 Morbid (severe) obesity due to excess calories (principal); Z68.41 Body mass index [BMI] 40.0-44.9, adult
CPT/HCPCS: 99211

== ENCOUNTER → 2017-04-19 | Outpatient (CLI) | payer BC, MEDICARE ==
[2017-04-19 18:24] LABS: Basophils # (A) 0.1 k/uL (0-0.2); Basophils % (A) 1 %; Eosinophils # (A) 0.2 k/uL (0-0.7); Eosinophils % (A) 3 %; HCT 42.8 % (34.0-46.0); HGB 13.5 gm/dL (11.4-16.0); Lymphocytes # (A) 3.5 k/uL (1.0-4.8); Lymphocytes % (A) 39 %; MCH 28.5 pg (25.0-35.0); MCHC 31.4 g/dL (31.0-37.0); MCV 90.8 fL (80.0-100.0); Mean Platelet Volume 7.2; Monocytes # (A) 0.6 k/uL (0-1.0); Monocytes % (A) 6 %; Neutrophils # (A) 4.6 k/uL (1.3-7.7); Neutrophils % (A) 51 %; Platelet Count 357 k/uL (150-450); RBC 4.72 m/uL (3.80-5.40); RDW 13.1 % (11.5-15.5); WBC 9.1 k/uL (3.8-10.6)
[2017-04-19 18:27] LABS: ALT 38 U/L (9-52); AST 19 U/L (14-36); Albumin 3.6 g/dL (3.5-5.0); Alkaline Phosphatase 76 U/L (38-126); Anion Gap 10 mmol/L; Blood Urea Nitrogen 12 mg/dL (7-17); Calcium 9.2 mg/dL (8.4-10.2); Carbon Dioxide 27 mmol/L (22-30); Chloride 104 mmol/L (98-107); Glucose 201 mg/dL (74-99); Potassium 3.8 mmol/L (3.5-5.1); Sodium 141 mmol/L (137-145); Total Bilirubin 0.2 mg/dL (0.2-1.3)
== END | disposition home or self-care (01) ==
LOC: LABPAT 16:59
PROVIDERS: ATTEND Surgery
DX: Z01.812 Encounter for preprocedural laboratory examination (principal); R94.31 Abnormal electrocardiogram [ECG] [EKG]
CPT/HCPCS: 80053; 85025; 93005

== ENCOUNTER 2017-04-26 13:46 | Inpatient (IN) | payer BC, MEDICARE ==
[2017-04-20 11:18] VITALS: BMI 38.9
[~2017-04-26 13:46] MED LIST: LIDOCAINE 1% 20 ML VIAL (10MG/ML) FOR IV START INTRADERMA PRN; ceFAZolin IN SWFI 2 GM/20 ML SYRINGE IVP ONE
--- NOTE | 2017-04-26 14:40 | P.GSHP ---
History of Present Illness H&P Date: 04/26/17 Chief Complaint: GERD This a 46-year-old female who presents today for laparoscopic hiatal hernia repair. Patient's had GERD symptoms. MiThe patient has had long-standing problems with reflux esophagitis. The patient underwent recent EGD is found have evidence of esophagitis. Patient has been well informed on the procedure of laparoscopic hiatal hernia repair. The patient is aware the risk of the conversion to the open procedure, risk of injury to the stomach, liver and spleen. The patient is also a risk of recurrent GERD and dysphagia symptoms. The patient understands there is a postoperative diet of full liquids for 2 weeks after surgery. 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 History of Any Multi-Drug Resistant Organisms: None Reported Past Surgical History: Hysterectomy, Orthopedic Surgery, Tubal Ligation Additional Past Surgical History / Comment(s): rhinoplasty, bladder suspension, breast sx, morphine pump , RT KNEE SCOPE, TUMMY TUCK, SCS DEVICE INSERTED AND REMOVED-DOES NOT HAVE T-11 IN SPINE. Past Anesthesia/Blood Transfusion Reactions: Motion Sickness, Postoperative Nausea & Vomiting (PONV) Past Psychological History: Depression Smoking Status: Never smoker Past Alcohol Use History: None Reported Past Drug Use History: None Reported - Past Family History Father Family Medical History: Hypertension Mother Family Medical History: Hypertension Medications and Allergies Home Medications Medication Instructions Recorded Confirmed Type Albuterol Sulfate [Proair Hfa] 2 puff INHALATION RT-Q6H PRN 09/26/15 04/26/17 History Atorvastatin [Lipitor] 10 mg PO DAILY 09/26/15 04/26/17 History Diclofenac Sodium [Voltaren Gel] 4 gm TOPICAL DAILY PRN 09/26/15 04/20/17 History Lubiprostone [Amitiza] 24 mcg PO BID 09/26/15 04/26/17 History Phentermine HCl [Adipex-P] 37.5 mg PO QAM 09/26/15 04/26/17 History Levothyroxine Sodium [Synthroid] 100 mcg PO QAM 02/24/16 04/26/17 History Morphine Sulfate Ir [MSIR] 15 mg PO Q4H PRN 02/24/16 04/26/17 History Dextromethorphan HBr/Quinidine 1 cap PO BID 06/22/16 04/26/17 History [Nuedexta 20-10 mg Capsule] Morphine Pain Pump 6.355 mg EPIDURAL DAILY 06/22/16 04/20/17 History Loperamide [Imodium] 2 mg PO QID PRN #30 cap 06/23/16 04/26/17 Rx Montelukast [Singulair] 10 mg PO DAILY #30 tab 06/23/16 04/26/17 Rx metFORMIN HCL [Metformin HCl] 250 mg PO DAILY 08/31/16 04/26/17 History Baclofen [Lioresal] 20 mg PO QID 01/10/17 04/26/17 History DULoxetine HCL [Cymbalta] 60 mg PO QAM 01/10/17 04/26/17 History Modafinil [Provigil] 400 mg PO DAILY 01/10/17 04/26/17 History cloNIDine 0.1 MG/24HR PATCH 1 patch TRANSDERM MO 01/10/17 04/26/17 History [Catapres-TTS] Butalb/Acetaminophen/Caffeine 1 cap PO AC-TID PRN 01/16/17 04/26/17 History [Esgic 50-325-40 Capsule] Ipratropium-Albuterol Nebulize 3 ml INHALATION RT-QID PRN 01/16/17 04/26/17 History [Duoneb 0.5 mg-3 mg/3 ml Soln] INSULIN LISPRO (HumaLOG) [HumaLOG] 0 units SQ ACHS PRN 01/19/17 04/20/17 History Cholecalciferol [Vitamin D3] 1,000 unit PO MOWE 03/03/17 04/26/17 History Metoclopramide [Reglan] 10 mg PO DAILY PRN 03/03/17 04/26/17 History Teriflunomide [Aubagio] 7 mg PO DAILY 03/03/17 04/26/17 History Allergies Allergy/AdvReac Type Severity Reaction Status Date / Time adhesive Allergy Severe Rash/Hives Verified 04/26/17 13:57 adhesive tape Allergy Severe Rash/Hives Verified 04/26/17 13:57 fentanyl Allergy Severe Rash/Hives Verified 04/26/17 13:57 latex Allergy Severe Rash/Hives Verified 04/26/17 13:57 Surgical - Exam Vital Signs Temp Pulse Resp BP Pulse Ox 98.5 F 112 H 18 136/85 95 04/26/17 14:06 04/26/17 14:06 04/26/17 14:06 04/26/17 14:06 04/26/17 14:06 - General well developed, no distress - Eyes PERRL - ENT normal pinna - Neck no masses - Respiratory normal expansion - Cardiovascular Rhythm: regular - Abdomen Abdomen: soft, non tender Assessment and Plan Assessment: GERD, hiatal hernia. We'll perform laparoscopic hiatal hernia..
[2017-04-26] MEDS: LACTATED RINGERS 1,000 ML IV SCH ×2 (14:42→18:06)
[2017-04-26] MEDS ORDERED: HEPARIN SODIUM,PORCINE 5,000 UNIT/ML 1 ML VIAL SQ ONE (14:43)
[2017-04-26] MEDS ORDERED: DEXAMETHASONE SOD PHOSPHATE 10 MG/ML 1 ML VIAL IV ONE (14:44)
[2017-04-26] MEDS ORDERED: ONDANSETRON 4 MG/2 ML VIAL IVP ONE (14:44)
[2017-04-26 14:49] LABS: Glucose,Whole Blood 145 mg/dL (75-99)
[2017-04-26] MEDS ORDERED: fentaNYL (PF) 50 MCG/ML 2 ML AMP ONE (15:15)
[2017-04-26] MEDS ORDERED: ROCURONIUM BROMIDE 10 MG/ML 10 ML VIAL IV ONE (15:15)
[2017-04-26] MEDS ORDERED: LIDOCAINE 1% INJ 10MG/ML (20 ML MDV) ONE (15:15)
[2017-04-26] MEDS ORDERED: GLYCOPYRROLATE 0.2 MG/ML 2 ML VIAL ONE (15:15)
[2017-04-26] MEDS ORDERED: SUCCINYLCHOLINE CHLORIDE 100 MG/5 ML SYR IV ONE (15:15)
[2017-04-26] MEDS ORDERED: NEOSTIGMINE 1 MG/ML 10 ML VIAL ONE (15:15)
[2017-04-26] MEDS ORDERED: PROPOFOL 10 MG/ML 20 ML VIAL IV ONE (15:15)
[2017-04-26] MEDS ORDERED: KETOROLAC 30 MG/ML 1 ML VIAL ONE (15:15)
[2017-04-26] MEDS ORDERED: MIDAZOLAM 2 MG/2 ML VIAL ONE (15:15)
[2017-04-26] MEDS ORDERED: BUPIVACAINE (PF) 0.5% 30 ML VIAL SQ ONE (15:36)
[2017-04-26 16:37] LABS: Glucose,Whole Blood 136 mg/dL (75-99)
[2017-04-26] MEDS: HYDROmorphone 0.5 MG/0.5 ML SYRINGE IVP PRN ×4 (16:45→17:02)
--- NOTE | 2017-04-26 16:48 | P.OP ---
Date of Procedure: 04/26/17 Preoperative Diagnosis: Hiatal hernia GERD Postoperative Diagnosis: hiatal hernia GERD Procedure(s) Performed: Endoscopic repair of hiatal hernia with 180 fundoplication wrap Anesthesia: MINH Surgeon: Skyler Denney Estimated Blood Loss (ml): 5 Pathology: none sent Condition: stable Disposition: PACU Description of Procedure: The patient was placed on the operating table in the supine position. The patient received general anesthesia. And was placed in dorsal lithotomy position. The patient was prepped and draped in the usual sterile fashion. The skin incision sites were anesthetized with 1% local Xylocaine. The skin was incised in the left periumbilical area and then using a blade less 5 mm trocar under direct visualization panel cavity was entered. After adequate insufflation the laparoscope was then placed into the peritoneal cavity. Next a 5 mm trochars placed in the right epigastric position. Another 5 millimeter trocar the right lateral position. Another 5 millimeter trocar in the left lateral position a 5 mm trocar is placed in the left epigastric position. And then the initial 5 mm trocar was exchanged for a 10 mm trocar. The left lateral lobe liver was retracted. The hernia was seen. The crural defect was then dissected using the Harmonic scissors device. A 360 crural dissection was performed the esophagus stomach was reduced back into the peritoneal Cavity. The crural defect was then closed using 2-0 Ethibond suture. Next the fundus of the stomach was mobilized using the [place] scissors device. and then a 58-Emirati bougie dilator was placed oropharynx passed into the esophagus and stomach the 180 fundal plication wrap was then performed by grasping the fundus posteriorly and bringing it around the esophagus and stomach fundoplication was then performed using 2-0 Ethibond suture. Care was taken that the fundal location rested over top of the intra-abdominal esophagus. There was no injury seen to the stomach or esophagus. The dilator was then withdrawn. The abdomen was irrigated there is no bleeding seen. The trochars were then withdrawn and then skin incision sites were closed using 3-0 Monocryl suture Steri-Strips are applied. Patient thought procedure well and sent to recovery room in stable condition.
[2017-04-26] MEDS ORDERED: SODIUM CHLORIDE 0.9% 1,000 ML IV ONE (16:57)
[2017-04-26] MEDS: INSULIN ASPART 100 UNIT/ML 1 ML 10 ML VIAL SQ SCH ×2 (18:01→20:49)
[2017-04-26] MEDS: D5-0.45% NACL WITH KCL 20MEQ/L 1,000 ML IV SCH (18:07)
[2017-04-26] MEDS: HYDROmorphone 2 MG/ML 1 ML SYRINGE IVP PRN ×2 (18:08→22:12)
[2017-04-26 20:39] LABS: Glucose,Whole Blood 205 mg/dL (75-99)
[2017-04-26] MEDS ORDERED: METOCLOPRAMIDE 10 MG TAB PO PRN (22:41)
[2017-04-26] MEDS ORDERED: LOPERAMIDE 2 MG CAP PO PRN (22:41)
[2017-04-26] MEDS ORDERED: IPRATROPIUM-ALBUTEROL 3 ML NEB INHALATION PRN (22:41)
[2017-04-26] MEDS ORDERED: DICLOFENAC SODIUM GEL 100 GM TUBE TOPICAL PRN (22:41)
[2017-04-26] MEDS ORDERED: BUTALB/APAP/CAFF 50-325-40MG TAB PO PRN (22:41)
[2017-04-26] MEDS ORDERED: ALBUTEROL INHALER 60 PUFF/8 GM INHALER INHALATION PRN (22:41)
[2017-04-26] MEDS ORDERED: CHOLECALCIFEROL 1,000 UNIT TAB PO SCH (22:45)
[2017-04-26] MEDS: ATORVASTATIN 10 MG TAB PO SCH (23:49)
[2017-04-26] MEDS: BACLOFEN 10 MG TAB PO SCH (23:49)
[2017-04-27] MEDS: HYDROmorphone 2 MG/ML 1 ML SYRINGE IVP PRN ×3 (02:12→10:42)
[2017-04-27] MEDS: D5-0.45% NACL WITH KCL 20MEQ/L 1,000 ML IV SCH (02:13)
[2017-04-27] MEDS ORDERED: LEVOTHYROXINE 100 MCG TAB PO SCH (06:30)
[2017-04-27] MEDS ORDERED: metFORMIN 500 MG TAB PO SCH (07:30)
[2017-04-27 07:34] LABS: Glucose,Whole Blood 189 mg/dL (75-99)
[2017-04-27] MEDS: INSULIN ASPART 100 UNIT/ML 1 ML 10 ML VIAL SQ SCH ×2 (07:44→08:49)
[2017-04-27] MEDS ORDERED: methylPREDNISolone SOD SUCCI 40 MG/ML 1 ML VIAL IV SCH (08:00)
[2017-04-27 08:33] VITALS: BP 133/62; PULSE 79; RESP 18; TEMP 98
[2017-04-27] MEDS: BACLOFEN 10 MG TAB PO SCH (08:48)
[2017-04-27] MEDS: ATORVASTATIN 10 MG TAB PO SCH (08:48)
[2017-04-27] MEDS ORDERED: ENOXAPARIN 40 MG/0.4 ML SYRINGE SQ SCH (09:00)
[2017-04-27] MEDS ORDERED: NON-FORMULARY DRUG (Phentermine Hcl [Adipex-P] 37.5 MG) PO SCH (09:00)
[2017-04-27] MEDS ORDERED: TERIFLUNOMIDE 7 MG PO SCH (09:00)
[2017-04-27] MEDS ORDERED: DULoxetine HCL 60 MG CAPSULE.DR PO SCH (09:00)
[2017-04-27] MEDS ORDERED: MODAFINIL 200 MG TAB PO SCH (09:00)
[2017-04-27] MEDS ORDERED: MONTELUKAST 10 MG TAB PO SCH (09:00)
--- NOTE | 2017-04-27 09:54 | CONS ---
CONSULTATION This is a 46-year-old white female who is status post surgery with Dr. Denney for laparoscopic hiatal hernia repair. She had had problem with esophagitis. Performed procedure, laparoscopic hiatal hernia repair. History of GERD, asthma, diabetes mellitus, dyslipidemia, hypertension, memory impairment, neurologic disorder, hypothyroidism. SURGERY HISTORY: Hysterectomy, orthopedic surgery, tubal ligation, rhinoplasty, bladder suspension, breast surgery, morphine pump, right knee scope. PSYCH HISTORY: Depression. SOCIAL HISTORY: Does not smoke, drink alcohol or take illicit drugs. FAMILY HISTORY: Father with hypertension. Mother with hypertension. HOME MEDICATIONS: She takes ProAir HFA, Lipitor 10 daily, Voltaren gel b.i.d., Amitiza 25 b.i.d. She takes Adipex-P 1 daily p.r.n., Synthroid 100 mcg daily. She apparently takes Nuedexta 20/10 one tablet b.i.d. She has a morphine pain pump. She takes singular 10 mg daily, metformin 250 daily, Lioresal 20 q.i.d., Cymbalta 60 daily, Provigil 400 daily, clonidine Catapres patch 1 patch transdermal every 72 hours. She is on DuoNeb 3 mL q.i.d., Humalog a.c. and bedtime, vitamin D3 one thousand daily, Reglan 10 mg daily, Aubagio 7 mg daily. ALLERGIES: ADHESIVE and LATEX. PHYSICAL EXAM: Temp 98.5, pulse 100, respiratory 18 to 22, blood pressure is 138/85, O2 is 95% on room air. HEENT: Well developed, in no acute distress. OPHTHALMOLOGIC: Pupils equal, round, reactive to light and accommodation. ENT: Normal. NECK: Supple. No masses. RESPIRATORY: Clear. GI: Regular rate and rhythm. ABDOMEN: Soft, nontender. ASSESSMENT: 1. Gastroesophageal reflux disease, status post hiatal hernia. 2. Diabetes mellitus. 3. Hypertension. 4. Hypothyroidism. Continue home medications. Await hiatal hernia repair. Possible discharge home per Dr. Denney. Will monitor blood pressure, status post hernia repair with multiple blood pressure meds on board. MMODL / IJN: [id number] /
--- NOTE | 2017-04-27 11:26 | P.DS ---
Providers Date of admission: 04/26/17 13:46 Expected date of discharge: 04/27/17 Attending physician: Skyler Alicea Consults: 04/26/17 16:18 Consult Physician Routine Consulting Provider: Sean Wynne Reason/Comments: Medical management Do you want consulting provider notified?: Yes [facility] Course: 46-year-old female was admitted on elective basis to undergo an endoscopic repair of hiatal hernia with 180 fundoplication wrapfor symptomatic esophageal reflux symptoms. Patient has a long-standing problem with reflux esophagitis. Patient underwent a recent EGD which showed evidence of esophagitis. Patient underwent the procedure on April 26. There were no postop events. 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 Patient states she would feel more comfortable at home. It was anxious to be discharged stated she has a scheduled appointment tomorrow with her neurologist who manages her MS due to patient's MS has difficulty ambulating uses a walker at home and sits in a specialized chair due to her morphine pain pumpthe day of discharge there were no labs. On room air sats are 96 heart rate was in the 80s temp is 98.8 surgical sites showed no evidence of any redness. Abdomen was soft nondistended tolerating a Ruth clear diet patient was felt to be hemodynamically stable and appropriate proceed with a discharge impression discharge diagnoses Status post April 26 laparoscopic hiatal hernia repair with mesh for symptomatic reflux esophagitis Recent EGD showing evidence of esophagitis History of GERD symptomatic with a hiatal hernia history of MS The above impression and plan of care have been discussed and directed by signing physician. Olesya Poe nurse practitioner acting as scribe for signing physician. Plan - Discharge Summary Discharge Rx Participant: Yes New Discharge Prescriptions: Continue Phentermine HCl [Adipex-P] 37.5 mg PO QAM Atorvastatin [Lipitor] 10 mg PO DAILY Albuterol Sulfate [Proair Hfa] 2 puff INHALATION RT-Q6H PRN PRN Reason: Shortness Of Breath Lubiprostone [Amitiza] 24 mcg PO BID Diclofenac Sodium [Voltaren Gel] 4 gm TOPICAL DAILY PRN PRN Reason: Pain Morphine Sulfate Ir [MSIR] 15 mg PO Q4H PRN PRN Reason: Pain Levothyroxine Sodium [Synthroid] 100 mcg PO QAM Dextromethorphan HBr/Quinidine [Nuedexta 20-10 mg Capsule] 1 cap PO BID Morphine Pain Pump 6.355 mg EPIDURAL DAILY Montelukast [Singulair] 10 mg PO DAILY #30 tab Loperamide [Imodium] 2 mg PO QID PRN #30 cap PRN Reason: Diarrhea metFORMIN HCL [Metformin HCl] 250 mg PO DAILY cloNIDine 0.1 MG/24HR PATCH [Catapres-TTS] 1 patch TRANSDERM MO Modafinil [Provigil] 400 mg PO DAILY DULoxetine HCL [Cymbalta] 60 mg PO QAM Ipratropium-Albuterol Nebulize [Duoneb 0.5 mg-3 mg/3 ml Soln] 3 ml INHALATION RT-QID PRN PRN Reason: Shortness Of Breath Butalb/Acetaminophen/Caffeine [Esgic 50-325-40 Capsule] 1 cap PO AC-TID PRN PRN Reason: Headache INSULIN LISPRO (HumaLOG) [humaLOG] See Protocol SQ ACHS PRN PRN Reason: Blood Sugar - High Cholecalciferol [Vitamin D3] 1,000 unit PO MOWE Teriflunomide [Aubagio] 7 mg PO DAILY Metoclopramide [Reglan] 10 mg PO DAILY PRN PRN Reason: REFLUX Baclofen [Lioresal] 20 mg PO QID Discharge Medication List Albuterol Sulfate [Proair Hfa] 2 puff INHALATION RT-Q6H PRN 09/26/15 [History] Atorvastatin [Lipitor] 10 mg PO DAILY 09/26/15 [History] Diclofenac Sodium [Voltaren Gel] 4 gm TOPICAL DAILY PRN 09/26/15 [History] Lubiprostone [Amitiza] 24 mcg PO BID 09/26/15 [History] Phentermine HCl [Adipex-P] 37.5 mg PO QAM 09/26/15 [History] Levothyroxine Sodium [Synthroid] 100 mcg PO QAM 02/24/16 [History] Morphine Sulfate Ir [MSIR] 15 mg PO Q4H PRN 02/24/16 [History] Dextromethorphan HBr/Quinidine [Nuedexta 20-10 mg Capsule] 1 cap PO BID [History] Morphine Pain Pump 6.355 mg EPIDURAL DAILY 06/22/16 [History] Loperamide [Imodium] 2 mg PO QID PRN #30 cap 06/23/16 [Rx] Montelukast [Singulair] 10 mg PO DAILY #30 tab 06/23/16 [Rx] metFORMIN HCL [Metformin HCl] 250 mg PO DAILY 08/31/16 [History] DULoxetine HCL [Cymbalta] 60 mg PO QAM 01/10/17 [History] Modafinil [Provigil] 400 mg PO DAILY 01/10/17 [History] cloNIDine 0.1 MG/24HR PATCH [Catapres-TTS] 1 patch TRANSDERM MO 01/10/17 [ History] Butalb/Acetaminophen/Caffeine [Esgic 50-325-40 Capsule] 1 cap PO AC-TID PRN [History] Ipratropium-Albuterol Nebulize [Duoneb 0.5 mg-3 mg/3 ml Soln] 3 ml INHALATION RT -QID PRN 01/16/17 [History] INSULIN LISPRO (HumaLOG) [humaLOG] See Protocol SQ ACHS PRN 01/19/17 [History] Cholecalciferol [Vitamin D3] 1,000 unit PO MOWE 03/03/17 [History] Metoclopramide [Reglan] 10 mg PO DAILY PRN 03/03/17 [History] Teriflunomide [Aubagio] 7 mg PO DAILY 03/03/17 [History] Baclofen [Lioresal] 20 mg PO QID 04/26/17 [History] Follow up Appointment(s)/Referral(s): Skyler Alicea MD [STAFF PHYSICIAN] - 1 Week Maura No MD [STAFF PHYSICIAN] - 04/28/17 Activity/Diet/Wound Care/Special Instructions: full liquid diet for 2 weeks after surgery No tub bath for six weeks. Shower daily. No lifting over 4 pounds for the next 6 weeks. May use ice packs to surgical site. No driving while taking narcotic for pain. to not remove surgical dressings at surgical site until seen in a follow-up visit with dr alicea Discharge Disposition: HOME SELF-CARE
--- NOTE | 2017-04-27 11:45 | FL ---
Single contrast esophagram EXAMINATION TYPE: FL esophagus cervic/pharynx DATE OF EXAM: 04/27/2017 9:07 AM COMPARISON: None 6 images obtained. fl time 34 sec. Omnipaque 350 50ml. CLINICAL HISTORY: Status post Ede fundoplication The patient ingested contrast without difficulty or delay. Noted are changes of Ede fundoplicatio n. There is no evidence for leak or obstruction. Small amount of residual contrast within the distal esophagus. IMPRESSION: Post-surgical change of Ede fundoplication without evidence for leak or obstruction.
[2017-04-27 12:06] LABS: Glucose,Whole Blood 174 mg/dL (75-99)
[2017-04-27 17:15] LABS: Hemoglobin A1C 6.3 % (4.0-6.0)
[2017-05-01] MEDS ORDERED: cloNIDine 0.1 MG/24HR PATCH 1 PATCH PATCH TRANSDERM SCH (09:00)
== END 2017-04-27 12:42 | disposition home or self-care (01) | DRG 328 ==
LOC: 2ORWHC 13:46 → EDSTATUS 14:05 → 5MS5E 16:47
PROVIDERS: ADMIT Surgery; ATTEND Surgery
PROC: 0BQT4ZZ Repair Diaphragm, Percutaneous Endoscopic Approach (ICD-10-PCS; 2017-04-26)
PROC: 0DV44ZZ Restriction of Esophagogastric Junction, Percutaneous Endoscopic Approach (ICD-10-PCS; principal; 2017-04-26 15:30)
DX: K44.9 Diaphragmatic hernia without obstruction or gangrene (principal); G35 Multiple sclerosis; E03.9 Hypothyroidism, unspecified; E11.9 Type 2 diabetes mellitus without complications; E78.5 Hyperlipidemia, unspecified; F32.9 Major depressive disorder, single episode, unspecified; I10 Essential (primary) hypertension; J45.909 Unspecified asthma, uncomplicated; K21.0 Gastro-esophageal reflux disease with esophagitis; Z79.899 Other long term (current) drug therapy; Z79.4 Long term (current) use of insulin; H81.90 Unspecified disorder of vestibular function, unspecified ear; H53.9 Unspecified visual disturbance; R41.3 Other amnesia; Z91.040 Latex allergy status; Z88.8 Allergy status to other drugs, medicaments and biological substances; Z91.048 Other nonmedicinal substance allergy status; Z90.710 Acquired absence of both cervix and uterus; Z82.49 Family history of ischemic heart disease and other diseases of the circulatory system
CPT/HCPCS: 74210; 83036

== ENCOUNTER → 2017-05-01 | Outpatient (CLI) | payer BC, MEDICARE ==
[2017-05-01 13:41] VITALS: BP 137/99; PULSE 101; RESP 16; TEMP 98.2; BMI 41.2
--- NOTE | 2017-05-01 15:04 | P.HPBAR ---
Bariatric H&P - History & Physicial H&P Date: 05/01/17 History & Physicial: Visit/CC: Hernia Repair follow-up Patient initial contact: Initial weight: 121.563 kg Initial weight in pounds: 268.00 Height: 5 ft 7 in Initial BMI: 42.0 Last weight: Current weight: 119.408 kg Current weight in pounds: 263.00 Current BMI: 41.2 [place] body weight (based on NIH guidelines): 61.235 kg Excess body weight loss: 3.7% The patient is a 46 year-old F who presents for Bariatric Assessment. The patient is status post laparoscopic hiatal hernia repair. She's doing well she denies a significant dysphagia or GERD symptoms. She has minimal incisional pain. Past Medical History Past Medical History: Asthma, Diabetes Mellitus, Hypertension, Musculoskeletal Disorder, Neurologic Disorder, Thyroid Disorder Additional Past Medical History / Comment(s): MS, DJD, back pain, History of Any Multi-Drug Resistant Organisms: None Reported Past Surgical History: Hysterectomy, Orthopedic Surgery, Tubal Ligation Additional Past Surgical History / Comment(s): rhinoplasty, bladder suspension, breast sx, morphine pump , RT KNEE SCOPE, TUMMY TUCK, SCS DEVICE INSERTED AND REMOVED-DOES NOT HAVE T-11 IN SPINE. Past Anesthesia/Blood Transfusion Reactions: Postoperative Nausea & Vomiting ( PONV) Past Psychological History: Depression Smoking Status: Never smoker Past Alcohol Use History: None Reported Past Drug Use History: None Reported - Past Family History Father Family Medical History: Hypertension Mother Family Medical History: Hypertension Surgical - Exam Vital Signs Temp Pulse Resp BP 98.2 F 101 H 16 137/99 05/01/17 13:24 05/01/17 13:24 05/01/17 13:24 05/01/17 13:24 - General well developed, no distress - Eyes PERRL - ENT normal pinna - Neck no masses - Respiratory normal expansion - Cardiovascular Rhythm: regular - Abdomen Abdomen: soft, non tender Bariatric Assessment & Plan Plan: Status post laparoscopic hiatal hernia repair. Patient is doing quite well. She will follow-up in one month. Bariatric Checklist Checklist: Plan: Checklist: EGD: 1. Hiatal hernia: 2. H. Pylori: HgbA1c: Vitamin D: Smoking: Never smoker [facility] care [facility] [place] Psych[place]ry clearance: Cardiology clearance: Sleep study: Diet journal: VTE risk score: VTE risk level: Rehab needs at discharge:
== END | disposition home or self-care (01) ==
LOC: BARWHC3 13:07
PROVIDERS: ATTEND Surgery
DX: Z09 Encounter for follow-up examination after completed treatment for conditions other than malignant neoplasm (principal); G89.18 Other acute postprocedural pain; J45.909 Unspecified asthma, uncomplicated; E11.9 Type 2 diabetes mellitus without complications; I10 Essential (primary) hypertension; F32.9 Major depressive disorder, single episode, unspecified; Z90.710 Acquired absence of both cervix and uterus; Z98.890 Other specified postprocedural states
CPT/HCPCS: 99211

== ENCOUNTER 2017-05-28 18:20 | Inpatient (IN) | payer BC, MEDICARE ==
[2017-05-28] MEDS ORDERED: PANTOPRAZOLE 40 MG/10 ML VIAL IVP STA (18:34)
[2017-05-28] MEDS ORDERED: MORPHINE SULFATE 4 MG/ML SYRINGE IV STA (18:34)
[2017-05-28] MEDS ORDERED: ONDANSETRON 4 MG/2 ML VIAL IVP STA (18:34)
[2017-05-28] MEDS ORDERED: SODIUM CHLORIDE 0.9% 1,000 ML IV STA (18:34)
[2017-05-28] MEDS ORDERED: RX INFO: IV CONTRAST WAS GIVEN 1 EACH MISC MISCELLANE PRN (18:34)
--- NOTE | 2017-05-28 18:43 | ED ---
General Adult HPI - General Chief complaint: Abdominal Pain Stated complaint: Abdominal pain Time Seen by Provider: 05/28/17 18:28 Source: patient, family, RN notes reviewed, old records reviewed Mode of arrival: wheelchair Limitations: no limitations - History of Present Illness Initial comments: This is a 46-year-old female the ER with severe abdominal pain nausea or vomiting. Unable to eat. Patient recently had recent fundoplication regarding hiatal hernia. Patient has surgery about a week about a month ago. The last week unable to eat.. No fevers, she has had abdominal pain. No recent bowel movements. - Related Data Home Medications Medication Instructions Recorded Confirmed Albuterol Sulfate [Proair Hfa] 2 puff INHALATION RT-Q6H PRN 09/26/15 05/28/17 Atorvastatin [Lipitor] 10 mg PO DAILY 09/26/15 05/28/17 Diclofenac Sodium [Voltaren Gel] 4 gm TOPICAL DAILY PRN 09/26/15 05/28/17 Lubiprostone [Amitiza] 24 mcg PO BID 09/26/15 05/28/17 Phentermine HCl [Adipex-P] 37.5 mg PO QAM 09/26/15 05/28/17 Levothyroxine Sodium [Synthroid] 100 mcg PO QAM 02/24/16 05/28/17 Morphine Sulfate Ir [MSIR] 15 mg PO Q4H PRN 02/24/16 05/28/17 Dextromethorphan HBr/Quinidine 1 cap PO BID 06/22/16 05/28/17 [Nuedexta 20-10 mg Capsule] Morphine Pain Pump 6.355 mg EPIDURAL DAILY 06/22/16 05/28/17 metFORMIN HCL [Metformin HCl] 250 mg PO DAILY 08/31/16 05/28/17 DULoxetine HCL [Cymbalta] 60 mg PO QAM 01/10/17 05/28/17 Modafinil [Provigil] 400 mg PO DAILY 01/10/17 05/28/17 cloNIDine 0.1 MG/24HR PATCH 1 patch TRANSDERM MO 01/10/17 05/28/17 [Catapres-TTS] Butalb/Acetaminophen/Caffeine 1 cap PO AC-TID PRN 01/16/17 05/28/17 [Esgic 50-325-40 Capsule] Ipratropium-Albuterol Nebulize 3 ml INHALATION RT-QID PRN 01/16/17 05/28/17 [Duoneb 0.5 mg-3 mg/3 ml Soln] INSULIN LISPRO (HumaLOG) [humaLOG] See Protocol SQ ACHS PRN 01/19/17 05/28/17 Cholecalciferol [Vitamin D3] 1,000 unit PO MOWE 03/03/17 05/28/17 Metoclopramide [Reglan] 10 mg PO DAILY PRN 03/03/17 05/28/17 Teriflunomide [Aubagio] 14 mg PO DAILY 03/03/17 06/01/17 Baclofen [Lioresal] 20 mg PO QID 04/26/17 05/28/17 Previous Rx's Medication Instructions Recorded Loperamide [Imodium] 2 mg PO QID PRN #30 cap 06/23/16 Montelukast [Singulair] 10 mg PO DAILY #30 tab 06/23/16 Allergies Allergy/AdvReac Type Severity Reaction Status Date / Time adhesive Allergy Severe Rash/Hives Verified 05/28/17 18:30 adhesive tape Allergy Severe Rash/Hives Verified 05/28/17 18:30 fentanyl Allergy Severe Rash/Hives Verified 05/28/17 18:30 latex Allergy Severe Rash/Hives Verified 05/28/17 18:30 Review of Systems ROS Statement: Those systems with pertinent positive or pertinent negative responses have been documented in the HPI. ROS Other: All systems not noted in ROS Statement are negative. Past Medical History Past Medical History: Asthma, Diabetes Mellitus, Hypertension, Musculoskeletal Disorder, Neurologic Disorder, Thyroid Disorder Additional Past Medical History / Comment(s): MS, DJD, back pain, History of Any Multi-Drug Resistant Organisms: None Reported Past Surgical History: Hernia Repair, Hysterectomy, Orthopedic Surgery, Tubal Ligation Additional Past Surgical History / Comment(s): rhinoplasty, bladder suspension, breast sx, morphine pump , RT KNEE SCOPE, TUMMY TUCK, SCS DEVICE INSERTED AND REMOVED-DOES NOT HAVE T-11 IN SPINE. Past Anesthesia/Blood Transfusion Reactions: Postoperative Nausea & Vomiting ( PONV) Past Psychological History: Depression Smoking Status: Never smoker Past Alcohol Use History: None Reported Past Drug Use History: None Reported - Past Family History Father Family Medical History: Hypertension Mother Family Medical History: Hypertension General Exam Limitations: no limitations Course Vital Signs 05/28/17 05/28/17 05/28/17 18:21 20:33 21:41 Temperature 97.9 F 98.1 F 98.1 F Pulse Rate 83 80 71 Respiratory 20 16 18 Rate Blood Pressure 123/73 132/60 127/65 O2 Sat by Pulse 98 95 97 Oximetry Medical Decision Making - Medical Decision Making 46 female the ER for evaluation of abdominal pain, persistent nausea and vomiting. Intractable pain. Patient to be admitted and evaluated for pain control - Lab Data Result diagrams: 05/28/17 18:58 05/31/17 07:57 Lab Results 05/28/17 05/28/17 05/28/17 Range/Units 18:58 18:58 18:58 WBC 4.4 (3.8-10.6) k/uL RBC 4.57 (3.80-5.40) m/uL Hgb 13.2 (11.4-16.0) gm/dL Hct 41.5 (34.0-46.0) % MCV 90.8 (80.0-100.0) fL MCH 28.9 (25.0-35.0) pg MCHC 31.8 (31.0-37.0) g/dL RDW 12.7 (11.5-15.5) % Plt Count 280 (150-450) k/uL Neutrophils % 52 % Lymphocytes % 37 % Monocytes % 5 % Eosinophils % 3 % Basophils % 1 % Neutrophils # 2.3 (1.3-7.7) k/uL Lymphocytes # 1.6 (1.0-4.8) k/uL Monocytes # 0.2 (0-1.0) k/uL Eosinophils # 0.1 (0-0.7) k/uL Basophils # 0.1 (0-0.2) k/uL Sodium 140 (137-145) mmol/L Potassium 4.2 (3.5-5.1) mmol/L Chloride 106 (98-107) mmol/L Carbon Dioxide 25 (22-30) mmol/L Anion Gap 9 mmol/L BUN 11 (7-17) mg/dL Creatinine 0.50 L (0.52-1.04) mg/dL Est GFR (MDRD) Af Amer >60 (>60 ml/min/1.73 sqM) Est GFR (MDRD) Non-Af >60 (>60 ml/min/1.73 sqM) Glucose 103 H (74-99) mg/dL Plasma Lactic Acid Antoni 0.9 (0.7-2.0) mmol/L Calcium 9.0 (8.4-10.2) mg/dL Total Bilirubin 0.5 (0.2-1.3) mg/dL AST 62 H (14-36) U/L ALT 64 H (9-52) U/L Alkaline Phosphatase 75 (38-126) U/L Troponin I (0.000-0.034) ng/mL Total Protein 6.5 (6.3-8.2) g/dL Albumin 3.9 (3.5-5.0) g/dL Amylase 59 (30-110) U/L Lipase 28 (23-300) U/L 05/28/17 Range/Units 18:58 WBC (3.8-10.6) k/uL RBC (3.80-5.40) m/uL Hgb (11.4-16.0) gm/dL Hct (34.0-46.0) % MCV (80.0-100.0) fL MCH (25.0-35.0) pg MCHC (31.0-37.0) g/dL RDW (11.5-15.5) % Plt Count (150-450) k/uL Neutrophils % % Lymphocytes % % Monocytes % % Eosinophils % % Basophils % % Neutrophils # (1.3-7.7) k/uL Lymphocytes # (1.0-4.8) k/uL Monocytes # (0-1.0) k/uL Eosinophils # (0-0.7) k/uL Basophils # (0-0.2) k/uL Sodium (137-145) mmol/L Potassium (3.5-5.1) mmol/L Chloride (98-107) mmol/L Carbon Dioxide (22-30) mmol/L Anion Gap mmol/L BUN (7-17) mg/dL Creatinine (0.52-1.04) mg/dL Est GFR (MDRD) Af Amer (>60 ml/min/1.73 sqM) Est GFR (MDRD) Non-Af (>60 ml/min/1.73 sqM) Glucose (74-99) mg/dL Plasma Lactic Acid Antoni (0.7-2.0) mmol/L Calcium (8.4-10.2) mg/dL Total Bilirubin (0.2-1.3) mg/dL AST (14-36) U/L ALT (9-52) U/L Alkaline Phosphatase (38-126) U/L Troponin I <0.012 (0.000-0.034) ng/mL Total Protein (6.3-8.2) g/dL Albumin (3.5-5.0) g/dL Amylase (30-110) U/L Lipase (23-300) U/L - Radiology Data Radiology results: report reviewed (CT abdomen and pelvis unremarkable), image reviewed Disposition Clinical Impression: Diaphragmatic hernia, Abdominal pain, Intractable nausea and vomiting, Intractable abdominal pain Disposition: ADMITTED IP TO THIS [facility] Condition: Good
[2017-05-28 19:13] LABS: Basophils # (A) 0.1 k/uL (0-0.2); Basophils % (A) 1 %; Eosinophils # (A) 0.1 k/uL (0-0.7); Eosinophils % (A) 3 %; HCT 41.5 % (34.0-46.0); HGB 13.2 gm/dL (11.4-16.0); Lymphocytes # (A) 1.6 k/uL (1.0-4.8); Lymphocytes % (A) 37 %; MCH 28.9 pg (25.0-35.0); MCHC 31.8 g/dL (31.0-37.0); MCV 90.8 fL (80.0-100.0); Mean Platelet Volume 7.3; Monocytes # (A) 0.2 k/uL (0-1.0); Monocytes % (A) 5 %; Neutrophils # (A) 2.3 k/uL (1.3-7.7); Neutrophils % (A) 52 %; Platelet Count 280 k/uL (150-450); RBC 4.57 m/uL (3.80-5.40); RDW 12.7 % (11.5-15.5); WBC 4.4 k/uL (3.8-10.6)
[2017-05-28 19:22] LABS: ALT 64 U/L (9-52); AST 62 U/L (14-36); Albumin 3.9 g/dL (3.5-5.0); Alkaline Phosphatase 75 U/L (38-126); Amylase 59 U/L (30-110); Anion Gap 9 mmol/L; Blood Urea Nitrogen 11 mg/dL (7-17); Carbon Dioxide 25 mmol/L (22-30); Chloride 106 mmol/L (98-107); Glucose 103 mg/dL (74-99); Lipase 28 U/L (23-300); Potassium 4.2 mmol/L (3.5-5.1); Sodium 140 mmol/L (137-145); Total Bilirubin 0.5 mg/dL (0.2-1.3); Total Protein 6.5 g/dL (6.3-8.2)
[2017-05-28] MEDS ORDERED: MORPHINE SULFATE 4 MG/ML SYRINGE IVP STA (19:46)
--- NOTE | 2017-05-28 20:02 | CT ---
EXAMINATION TYPE: CT abdomen pelvis w con DATE OF EXAM: 05/28/2017 HISTORY: Hiatal hernia repair 4 weeks ago. complains of nausea and vomiting for [address] DLP: 1944.6mGycm Automated Exposure Control for Dose Reduction was Utilized. CONTRAST: CT scan of the abdomen and pelvis is performed with IV Contrast, patient injected with 100 mL of Omni paque 300. COMPARISON: None. FINDINGS: LUNG BASES: No significant abnormality is appreciated. LIVER/GB: The liver is diffusely hypoattenuated, most commonly related to hepatic steatosis. Hepatic lesion that is too small to accurately characterize is seen near the gallbladder fossa on series 3 im age 29 measuring 4 mm. No evidence of cholelithiasis. PANCREAS: There is mild atrophy of the pancreatic head parenchyma. No ductal dilatation. SPLEEN: No significant abnormality is seen. No splenomegaly. ADRENALS: No significant abnormality is seen. No thickening. KIDNEYS: No significant abnormality is seen. No hydronephrosis. Kidneys enhance symmetrically. BOWEL: No proximal esophageal dilatation is seen adjacent to postoperative changes from the Ruth fu ndoplication at the gastroesophageal junction. Bowel is nondilated. No focal inflammatory fat strandi ng is seen. UTERUS/ADNEXA: Uterus appears surgically absent and ovaries are seen bilaterally. LYMPH NODES: No greater than 1cm abdominal or pelvic lymph nodes are appreciated. OSSEOUS STRUCTURES: No significant abnormality is seen. Intrathecal pain pump is implanted within the lumbar soft tissues. OTHER: Subcutaneous edema is noted from the recent surgery with a small 1.8 cm subcutaneous fluid col lection likely relating to a postop seroma. IMPRESSION: 1. No proximal esophageal dilation to suggest obstruction at the gastroesophageal junction and this p atient is status post Ruth fundoplication. No evidence of bowel obstruction. 2. Subcutaneous 1.8 cm fluid collection likely representing a postoperative seroma. 3. Hepatic steatosis.
[2017-05-28] MEDS ORDERED: HYDROmorphone 0.5 MG/0.5 ML SYRINGE IVP STA (20:36)
[2017-05-28] MEDS ORDERED: METOCLOPRAMIDE 5 MG/ML 2 ML VIAL IVP STA (20:36)
[2017-05-28] MEDS ORDERED: diphenhydrAMINE 50 MG/ML 1 ML VIAL IVP STA (20:36)
[2017-05-28] MEDS ORDERED: SODIUM CHLORIDE 0.9% 1,000 ML IV ONE (21:09)
[2017-05-28] MEDS: MORPHINE SULFATE 4 MG/ML SYRINGE IVP PRN (22:33)
[2017-05-28] MEDS: ONDANSETRON 4 MG/2 ML VIAL IVP PRN (22:34)
[2017-05-28] MEDS: METOCLOPRAMIDE 5 MG/ML 2 ML VIAL IVP SCH (23:46)
[2017-05-29] MEDS: diphenhydrAMINE 50 MG/ML 1 ML VIAL IVP PRN ×3 (02:47→19:23)
[2017-05-29] MEDS: MORPHINE SULFATE 4 MG/ML SYRINGE IVP PRN ×3 (02:48→10:34)
[2017-05-29] MEDS: METOCLOPRAMIDE 5 MG/ML 2 ML VIAL IVP SCH ×3 (06:03→17:52)
[2017-05-29 07:29] LABS: Glucose,Whole Blood 85 mg/dL (75-99)
[2017-05-29 09:29] LABS: ALT 67 U/L (9-52); AST 48 U/L (14-36)
[2017-05-29] MEDS: ONDANSETRON 4 MG/2 ML VIAL IVP PRN ×2 (09:38→16:24)
[2017-05-29] MEDS: LORazepam 2 MG/ML INJ IV PRN (09:38)
[2017-05-29] MEDS: PANTOPRAZOLE 40 MG/10 ML VIAL IVP SCH (10:48)
[2017-05-29] MEDS: ENOXAPARIN 40 MG/0.4 ML SYRINGE SQ SCH (10:48)
--- NOTE | 2017-05-29 11:17 | P.GSCN ---
<Olesya Poe - Last Filed: 05/29/17 11:05> History of Present Illness Consult date: 05/29/17 Reason for Consult: Abdominal pain History of present illness: 46-year-old female being seen at request of the attending for surgical eval for abdominal pain. Patient stated that she did present to the emergency room on the day of admission with severe abdominal pain nausea vomiting unable to eat onset 4-5 days prior. Patient states she was not able to keep any fluids down started having dry heaves. Patient stated the abdominal pain was intense across the lower abdominal wall patient underwent a recent April 26 laparoscopic hiatal hernia repair with mesh for symptomatic reflux esophagitis. A recent EGD done before the procedure showed evidence of esophagitis. Emergency room CAT scan of the abdomen pelvis the report showed no actual esophageal dilatation to suggest an obstruction. No evidence of a bowel obstruction. Hepatic steatosis, subcutaneous 1.8 cm fluid collection likely represents a postoperative seroma. Labs in the emergency lipase 28 amylase 59 AST 62 the ALT 64 patient was afebrile with a white count of 4.4. Patient states even the smell of food creates sensation of nausea states no frequent stooling no change in bowel habits states it's been several days since her last bowel movement Patient does have a history of having multiple sclerosis Has chronic pain and has a pain pump in place Review of Systems Essentially unremarkable except as mentioned in the present illness Past Medical History Past Medical History: Asthma, Cancer, Diabetes Mellitus, Hypertension, Musculoskeletal Disorder, Neurologic Disorder, Thyroid Disorder Additional Past Medical History / Comment(s): MS, DJD, back pain, uterine cancer History of Any Multi-Drug Resistant Organisms: None Reported Past Surgical History: Hernia Repair, Hysterectomy, Orthopedic Surgery, Tubal Ligation Additional Past Surgical History / Comment(s): rhinoplasty, bladder suspension, breast sx, morphine pump , RT KNEE SCOPE, TUMMY TUCK, SCS DEVICE INSERTED AND REMOVED-DOES NOT HAVE T-11 IN SPINE. partial hysterectomy Past Anesthesia/Blood Transfusion Reactions: Postoperative Nausea & Vomiting ( PONV) Past Psychological History: Depression Smoking Status: Never smoker Past Alcohol Use History: None Reported Past Drug Use History: None Reported - Past Family History Father Family Medical History: Hypertension Mother Family Medical History: Hypertension Medications and Allergies Home Medications Medication Instructions Recorded Confirmed Type Albuterol Sulfate [Proair Hfa] 2 puff INHALATION RT-Q6H PRN 09/26/15 05/28/17 History Atorvastatin [Lipitor] 10 mg PO DAILY 09/26/15 05/28/17 History Diclofenac Sodium [Voltaren Gel] 4 gm TOPICAL DAILY PRN 09/26/15 05/28/17 History Lubiprostone [Amitiza] 24 mcg PO BID 09/26/15 05/28/17 History Phentermine HCl [Adipex-P] 37.5 mg PO QAM 09/26/15 05/28/17 History Levothyroxine Sodium [Synthroid] 100 mcg PO QAM 02/24/16 05/28/17 History Morphine Sulfate Ir [MSIR] 15 mg PO Q4H PRN 02/24/16 05/28/17 History Dextromethorphan HBr/Quinidine 1 cap PO BID 06/22/16 05/28/17 History [Nuedexta 20-10 mg Capsule] Morphine Pain Pump 6.355 mg EPIDURAL DAILY 06/22/16 05/28/17 History Loperamide [Imodium] 2 mg PO QID PRN #30 cap 06/23/16 05/28/17 Rx Montelukast [Singulair] 10 mg PO DAILY #30 tab 06/23/16 05/28/17 Rx metFORMIN HCL [Metformin HCl] 250 mg PO DAILY 08/31/16 05/28/17 History DULoxetine HCL [Cymbalta] 60 mg PO QAM 01/10/17 05/28/17 History Modafinil [Provigil] 400 mg PO DAILY 01/10/17 05/28/17 History cloNIDine 0.1 MG/24HR PATCH 1 patch TRANSDERM MO 01/10/17 05/28/17 History [Catapres-TTS] Butalb/Acetaminophen/Caffeine 1 cap PO AC-TID PRN 01/16/17 05/28/17 History [Esgic 50-325-40 Capsule] Ipratropium-Albuterol Nebulize 3 ml INHALATION RT-QID PRN 01/16/17 05/28/17 History [Duoneb 0.5 mg-3 mg/3 ml Soln] INSULIN LISPRO (HumaLOG) [humaLOG] See Protocol SQ ACHS PRN 01/19/17 05/28/17 History Cholecalciferol [Vitamin D3] 1,000 unit PO MOWE 03/03/17 05/28/17 History Metoclopramide [Reglan] 10 mg PO DAILY PRN 03/03/17 05/28/17 History Teriflunomide [Aubagio] 7 mg PO DAILY 03/03/17 05/28/17 History Baclofen [Lioresal] 20 mg PO QID 04/26/17 05/28/17 History Allergies Allergy/AdvReac Type Severity Reaction Status Date / Time adhesive Allergy Severe Rash/Hives Verified 05/28/17 18:30 adhesive tape Allergy Severe Rash/Hives Verified 05/28/17 18:30 fentanyl Allergy Severe Rash/Hives Verified 05/28/17 18:30 latex Allergy Severe Rash/Hives Verified 05/28/17 18:30 Surgical - Exam Vital Signs Temp Pulse Resp BP Pulse Ox 97.9 F 83 20 123/73 98 05/28/17 18:21 05/28/17 18:21 05/28/17 18:21 05/28/17 18:21 05/28/17 18:21 GENERAL APPEARANCE: 46-year-old female patient is alert, oriented, in no acute distress. Resting in bed VITAL SIGNS: Reviewed HEENT: Head is normocephalic and atraumatic. Pupils are equal and reactive. The nares are patent. Oropharynx is clear without lesions. NECK: Supple without lymphadenopathy. Traches midline. HEART: S1, S2. Regular rate and rhythm. Denying chest pain LUNGS: No crackles or wheezes are heard. Adequate air movement bilaterally on room air no cough noted ABDOMEN: Soft, reports diffuse tenderness across the lower abdominal wall nondistended with good bowel sounds. No peritoneal signs. No palpable organomegaly or masses. EXTREMITIES: Normal skin color and turgor. No cyanosis, rash, ulceration, clubbing or edema. Radial pedal pulses are 2/4 bilaterally. Results Impression Present on admission intractable nausea vomiting abdominal pain unclear etiology Recent April 26 endoscopically repair of hiatal hernia with mesh for symptomatic esophageal reflux symptoms Chronic pain with a pain pump in place History of multiple sclerosis Debilitated Present on admission mildly elevated liver enzymes Computed tomography scan abdomen and pelvis on admission subcutaneous 1.8 cm fluid collection likely representing postoperative seroma with no evidence of a bowel obstruction Plan No evidence of an acute surgical abdomen at this time Check hepatitis panel IV fluid for hydration Pain control DVT and GI prophylaxis We'll follow with you Surgical consultation note dictated for Dr. alicea - Labs 05/28/17 18:58 05/28/17 18:58 Abnormal Lab Results - Last 24 Hours (Table) 05/28/17 05/29/17 Range/Units 18:58 08:46 Creatinine 0.50 L (0.52-1.04) mg/dL Glucose 103 H (74-99) mg/dL AST 62 H 48 H (14-36) U/L ALT 64 H 67 H (9-52) U/L Diabetes panel 05/28/17 05/29/17 Range/Units 18:58 08:46 Sodium 140 (137-145) mmol/L Potassium 4.2 (3.5-5.1) mmol/L Chloride 106 (98-107) mmol/L Carbon Dioxide 25 (22-30) mmol/L BUN 11 (7-17) mg/dL Creatinine 0.50 L (0.52-1.04) mg/dL Glucose 103 H (74-99) mg/dL Calcium 9.0 (8.4-10.2) mg/dL AST 62 H 48 H (14-36) U/L ALT 64 H 67 H (9-52) U/L Alkaline Phosphatase 75 (38-126) U/L Total Protein 6.5 (6.3-8.2) g/dL Albumin 3.9 (3.5-5.0) g/dL Calcium panel 05/28/17 Range/Units 18:58 Calcium 9.0 (8.4-10.2) mg/dL Albumin 3.9 (3.5-5.0) g/dL Pituitary panel 05/28/17 Range/Units 18:58 Sodium 140 (137-145) mmol/L Potassium 4.2 (3.5-5.1) mmol/L Chloride 106 (98-107) mmol/L Carbon Dioxide 25 (22-30) mmol/L BUN 11 (7-17) mg/dL Creatinine 0.50 L (0.52-1.04) mg/dL Glucose 103 H (74-99) mg/dL Calcium 9.0 (8.4-10.2) mg/dL Adrenal panel 05/28/17 05/29/17 Range/Units 18:58 08:46 Sodium 140 (137-145) mmol/L Potassium 4.2 (3.5-5.1) mmol/L Chloride 106 (98-107) mmol/L Carbon Dioxide 25 (22-30) mmol/L BUN 11 (7-17) mg/dL Creatinine 0.50 L (0.52-1.04) mg/dL Glucose 103 H (74-99) mg/dL Calcium 9.0 (8.4-10.2) mg/dL Total Bilirubin 0.5 (0.2-1.3) mg/dL AST 62 H 48 H (14-36) U/L ALT 64 H 67 H (9-52) U/L Alkaline Phosphatase 75 (38-126) U/L Total Protein 6.5 (6.3-8.2) g/dL Albumin 3.9 (3.5-5.0) g/dL <Skyler Alicea - Last Filed: 05/29/17 16:52> Surgical - Exam Vital Signs Temp Pulse Resp BP Pulse Ox 97.9 F 83 20 123/73 98 05/28/17 18:21 05/28/17 18:21 05/28/17 18:21 05/28/17 18:21 05/28/17 18:21 Results - Labs 05/28/17 18:58 05/28/17 18:58 Abnormal Lab Results - Last 24 Hours (Table) 05/28/17 05/29/17 05/29/17 Range/Units 18:58 08:46 08:46 Creatinine 0.50 L (0.52-1.04) mg/dL Glucose 103 H (74-99) mg/dL Delta Bilirubin 0.3 H (0.0-0.2) mg/dL AST 62 H 48 H 50 H (14-36) U/L ALT 64 H 67 H 65 H (9-52) U/L Total Protein 6.0 L (6.3-8.2) g/dL Diabetes panel 05/28/17 05/29/17 05/29/17 Range/Units 18:58 08:46 08:46 Sodium 140 (137-145) mmol/L Potassium 4.2 (3.5-5.1) mmol/L Chloride 106 (98-107) mmol/L Carbon Dioxide 25 (22-30) mmol/L BUN 11 (7-17) mg/dL Creatinine 0.50 L (0.52-1.04) mg/dL Glucose 103 H (74-99) mg/dL Calcium 9.0 (8.4-10.2) mg/dL AST 62 H 48 H 50 H (14-36) U/L ALT 64 H 67 H 65 H (9-52) U/L Alkaline Phosphatase 75 78 (38-126) U/L Total Protein 6.5 6.0 L (6.3-8.2) g/dL Albumin 3.9 3.6 (3.5-5.0) g/dL Calcium panel 05/28/17 05/29/17 Range/Units 18:58 08:46 Calcium 9.0 (8.4-10.2) mg/dL Albumin 3.9 3.6 (3.5-5.0) g/dL Pituitary panel 05/28/17 Range/Units 18:58 Sodium 140 (137-145) mmol/L Potassium 4.2 (3.5-5.1) mmol/L Chloride 106 (98-107) mmol/L Carbon Dioxide 25 (22-30) mmol/L BUN 11 (7-17) mg/dL Creatinine 0.50 L (0.52-1.04) mg/dL Glucose 103 H (74-99) mg/dL Calcium 9.0 (8.4-10.2) mg/dL Adrenal panel 05/28/17 05/29/17 05/29/17 Range/Units 18:58 08:46 08:46 Sodium 140 (137-145) mmol/L Potassium 4.2 (3.5-5.1) mmol/L Chloride 106 (98-107) mmol/L Carbon Dioxide 25 (22-30) mmol/L BUN 11 (7-17) mg/dL Creatinine 0.50 L (0.52-1.04) mg/dL Glucose 103 H (74-99) mg/dL Calcium 9.0 (8.4-10.2) mg/dL Total Bilirubin 0.5 0.3 (0.2-1.3) mg/dL AST 62 H 48 H 50 H (14-36) U/L ALT 64 H 67 H 65 H (9-52) U/L Alkaline Phosphatase 75 78 (38-126) U/L Total Protein 6.5 6.0 L (6.3-8.2) g/dL Albumin 3.9 3.6 (3.5-5.0) g/dL Assessment and Plan Plan: Probable viral gastritis. Patient observed.
[2017-05-29 11:30] LABS: Albumin 3.6 g/dL (3.5-5.0); Bilirubin, Delta 0.3 mg/dL (0.0-0.2); Total Bilirubin 0.3 mg/dL (0.2-1.3)
--- NOTE | 2017-05-29 14:55 | CONS ---
CONSULTATION DATE OF SERVICE: May 29, 2017. REQUESTING PHYSICIAN: Dr. José Miguel Estrada. REASON FOR CONSULTATION: Abdominal pain and elevated LFTs. HISTORY OF PRESENT ILLNESS: The patient is a 46-year-old white female who was admitted to hospital because of severe upper abdominal pain associated with nausea, vomiting for the last 5 days duration. She underwent a laparoscopic Ruth fundoplication by Dr. Denney on April 25 and prior to that she had an upper endoscopy done that according to the patient showed evidence of esophagitis. Following the surgery, she continued to have some vague abdominal discomfort, which has been on and off, associated with some dry heaves. She was able to eat only toast and jam, and experiencing abdominal pain. However, 4 days ago, symptoms got much worse. Came to the emergency room yesterday, had a CT of the abdomen pelvis done that showed no significant pathology other than a small seroma. She was also noted to have mild elevations in serum transaminases and hence we are consulted in regards to this issue. The patient denies any history of chronic liver disease. No history of jaundice or hepatitis in the past. She was noted to have an AST of 62, ALT of 64 and this morning they have slightly improved. The patient is on multiple medications on outpatient basis. PAST MEDICAL HISTORY: Significant for asthma, diabetes mellitus, hypertension, morbid obesity, hypothyroidism, gastroesophageal reflux disease. Chronic pain syndrome. PAST SURGICAL HISTORY: Tubal ligation, rhinoplasty, bladder suspension, breast biopsy, tummy tuck, right knee scope, recent Ruth fundoplication. MEDICATIONS: At home include albuterol, Lipitor, Voltaren, Amitiza, Adipex, Synthroid, morphine pain pump, Imodium, Singulair, metformin, Cymbalta, clonidine, Provigil, Humalog, vitamin D, Reglan, Lioresal. ALLERGIES: To FENTANYL, LATEX. SOCIAL HISTORY: No smoking or alcohol use. FAMILY HISTORY: Unremarkable. Father had hypertension. Mother has hypertension. REVIEW OF SYSTEMS: Cardiopulmonary: No chest pain, shortness of breath. Genitourinary: No dysuria, hematuria. Musculoskeletal unremarkable. Skin unremarkable. Endocrine unremarkable. Psychiatric unremarkable. Neurology unremarkable other than chronic pain syndrome. ENT vision unremarkable. Constitutional: No recent weight loss. No fever, chills, night sweats. PHYSICAL EXAMINATION: She appears comfortable. No apparent distress. VITAL SIGNS: Stable. Blood pressure 103/64, pulse is 70, temperature 97.8. HEENT examination: Unremarkable. Conjunctivae pink. Sclerae anicteric. Oral cavity no lesions. Neck: No jugular venous distention or lymph node enlargement. Chest was clear to auscultation. HEART: Regular rate and rhythm. ABDOMEN: Soft. Diffuse tenderness all over the abdomen. No rebound or rigidity. Bowel sounds are positive. Extremities: No pedal edema. Skin no rashes. Neuro: She is alert and oriented x3. No focal deficits. LABS: WBC 4.4, hemoglobin 13.2, platelets are normal. Basic metabolic panel is within normal limits. AST 62, ALT 64. Today AST is down to 15, ALT 65. Hepatitis viral serology for A, B, and C are pending. CT of the abdomen showed decreased echogenicity, decreased echogenicity consistent with hepatic steatosis. Small seroma noted. IMPRESSION: 1. This is a lady who was admitted to the hospital with acute onset of severe upper abdominal pain associated with nausea, vomiting, and she is status post a Ruth fundoplication by Dr. Denney about [address] of the abdomen was unremarkable. 2. Mild elevation of serum transaminases and fatty liver. RECOMMENDATION: 1. At this time we will await surgical consultation as this could be surgically related from recent Ruth fundoplication. 2. In regards to the mild elevation of LFTs, most likely could be explained on the basis of fatty infiltration of the liver. However, we will obtain hepatitis viral serologies for A, B, and C. I showed the patient that with such mild degree of elevated LFTs, she does not need to have any further workup done. We can just watch them on an outpatient basis and consider further evaluation if they continue to remain persistently elevated on a chronic basis. 3. 4. Thank you for this consultation. MMODL / IJN: [id number] /
[2017-05-29 15:10] VITALS: BMI 38.0
[2017-05-29 16:16] LABS: Hepatitis A Antibody IgM Non-Reactive (Non-Reactive); Hepatitis B Core IgM Non-Reactive (Non-Reactive)
[2017-05-29] MEDS: MORPHINE ORAL SOLN 10 MG/5 ML CUP PO PRN (16:25)
[2017-05-29] MEDS ORDERED: IPRATROPIUM-ALBUTEROL 3 ML NEB INHALATION PRN (16:35)
[2017-05-29] MEDS ORDERED: DICLOFENAC SODIUM GEL 100 GM TUBE TOPICAL PRN (16:35)
[2017-05-29] MEDS ORDERED: ALBUTEROL NEBULIZED 2.5 MG/3 ML INHALATION PRN (16:35)
[2017-05-29] MEDS ORDERED: cloNIDine 0.1 MG/24HR PATCH 1 PATCH PATCH TRANSDERM SCH (17:00)
[2017-05-29] MEDS: metFORMIN 500 MG TAB PO SCH (17:52)
[2017-05-29] MEDS: DULoxetine HCL 60 MG CAPSULE.DR PO SCH (17:53)
[2017-05-29] MEDS: BACLOFEN 10 MG TAB PO SCH ×2 (17:53→21:57)
[2017-05-29] MEDS: DEXTROMETHORPHAN HBR PO SCH (21:54)
[2017-05-29] MEDS: QUINIDINE PO SCH (21:54)
[2017-05-29] MEDS: NON-FORMULARY DRUG (Lubiprostone [Amitiza] 24 MCG) PO SCH (21:54)
--- NOTE | 2017-05-29 23:04 | HP ---
HISTORY AND PHYSICAL CHIEF COMPLAINT: 46-year-old white female with severe abdominal pain, nausea. She states she is unable to eat for 4 weeks after hiatal hernia repair. She has had abdominal pain. She has had no recent bowel movements. Poor appetite. She has refused to go home in the ER due to inability to severe abdominal pain. HOME MEDICATIONS: 1. Amitiza 24 mcg b.i.d. 2. Adipex P 37.5 q.a.m. 3. Synthroid 100 mcg daily. 4. Morphine sulfate 50 mg q.4 hours p.r.n.. 5. Dextromethorphan. 6. Nuedexta 20/10 1 b.i.d. 7. Albuterol 2 puffs q.4-6 hours p.r.n. 8. Morphine pain pump. 9. Metformin 250 daily. 10.Cymbalta 60 daily. 11.Provigil 400 daily. 12.Catapres TTS patch once a week 0.1 mg. 13.Fioricet 1 caplet a.c. t.i.d. 14.DuoNeb 3 mL q.i.d., Humalog a.c. and bedtime. 15.Vitamin D3 1000 daily. 16.Reglan 10 mg p.r.n. 17.Aubagio 7 mg p.o. daily. 18.Lioresal 20 mg q.i.d. ALLERGIES: RELATED TO LATEX, FENTANYL, ADHESIVE TAPE. SURGICAL HISTORY: Orthopedic surgery, tubal ligation, hysterectomy, hernia repair, tummy tuck, right knee scope, bladder suspension, rhinoplasty, for surgery morphine mump. Past psych history of depression. FAMILY HISTORY: Father had hypertension and mother hypertension. PHYSICAL EXAMINATION: Vital signs temp 97, pulse 80 to 83, respirations 16 to 20, blood pressure 120s to 130s over 60s to 70s. O2 95 to 98% on room air. Cardiovascular S1, S2. Gastrointestinal status normal dorsalis pedis, posterior tibial, radial pulses, no carotid bruits. Psychiatric: Fair mood and affect. Neurologic: Alert orient x3. ASSESSMENT: 1. Diaphragmatic hernia. 2. Acute abdominal pain. 3. Retractable nausea, vomiting, intractable abdominal pain. 4. Please see further treatment including Gastroenterology and surgical consult. MMODL / IJN: [id number] /
[2017-05-30] MEDS: METOCLOPRAMIDE 5 MG/ML 2 ML VIAL IVP SCH ×5 (01:13→23:39)
[2017-05-30] MEDS: LORazepam 2 MG/ML INJ IV PRN ×3 (01:13→21:39)
[2017-05-30] MEDS: MORPHINE ORAL SOLN 10 MG/5 ML CUP PO PRN ×3 (02:38→15:57)
[2017-05-30] MEDS: LOPERAMIDE 2 MG CAP PO PRN ×4 (02:38→21:39)
[2017-05-30] MEDS: diphenhydrAMINE 50 MG/ML 1 ML VIAL IVP PRN ×4 (02:39→21:40)
[2017-05-30] MEDS: LEVOTHYROXINE 100 MCG TAB PO SCH (06:24)
[2017-05-30] MEDS: ATORVASTATIN 10 MG TAB PO SCH (08:00)
[2017-05-30] MEDS: QUINIDINE PO SCH ×2 (08:01→21:47)
[2017-05-30] MEDS: BACLOFEN 10 MG TAB PO SCH ×4 (08:01→21:39)
[2017-05-30] MEDS: DULoxetine HCL 60 MG CAPSULE.DR PO SCH (08:01)
[2017-05-30] MEDS: DEXTROMETHORPHAN HBR PO SCH ×2 (08:01→21:47)
[2017-05-30] MEDS: metFORMIN 500 MG TAB PO SCH (08:02)
[2017-05-30] MEDS: ENOXAPARIN 40 MG/0.4 ML SYRINGE SQ SCH (08:02)
[2017-05-30] MEDS: NON-FORMULARY DRUG (Lubiprostone [Amitiza] 24 MCG) PO SCH ×2 (08:02→21:47)
[2017-05-30] MEDS: MONTELUKAST 10 MG TAB PO SCH (08:03)
[2017-05-30] MEDS: MODAFINIL 200 MG TAB PO SCH (08:06)
[2017-05-30] MEDS: TERIFLUNOMIDE 7 MG PO SCH (08:07)
[2017-05-30] MEDS: PANTOPRAZOLE 40 MG/10 ML VIAL IVP SCH (08:07)
[2017-05-30] MEDS: NON-FORMULARY DRUG (Phentermine Hcl [Adipex-P] 37.5 MG) PO SCH (08:07)
[2017-05-30] MEDS: ONDANSETRON 4 MG/2 ML VIAL IVP PRN ×3 (08:08→21:39)
[2017-05-30 08:47] LABS: ALT 53 U/L (9-52); AST 35 U/L (14-36); Albumin 3.2 g/dL (3.5-5.0); Alkaline Phosphatase 66 U/L (38-126); Anion Gap 5 mmol/L; Blood Urea Nitrogen 6 mg/dL (7-17); Calcium 8.1 mg/dL (8.4-10.2); Carbon Dioxide 26 mmol/L (22-30); Chloride 107 mmol/L (98-107); Glucose 84 mg/dL (74-99); Potassium 3.8 mmol/L (3.5-5.1); Sodium 138 mmol/L (137-145); Total Bilirubin 0.2 mg/dL (0.2-1.3); Total Protein 5.4 g/dL (6.3-8.2)
[2017-05-30] MEDS: MORPHINE EPIDURAL SCH (10:03)
--- NOTE | 2017-05-30 10:25 | P.PN ---
Subjective Progress Note Date: 05/30/17 46-year-old female seen and examined at bedside patient reports had an episode last night of having 3-4 loose watery stools incontinent. Patient states she had no control. Patient continues to report having intermittent episodes of severe upper abdominal pain associated with nausea. Stated that she had not vomited last night did have dry heaves. Patient states does not feel any better.. She did undergo laparoscopic Ruth fundoplication on April 25 by . Patient states prior to having the procedure she did undergo an EGD that according to the patient showed evidence of esophagitis. Patient states since having the procedure there's been no real change in patient's symptoms. This admission the patient came into the emergency room a CAT scan of the abdomen done that showed no significant findings except a small seroma. C. diff was negative hepatitis panel nonreactive influenza A and B not detected AST 35 ALT 54 trending down Objective - Vital Signs Vital signs: Vital Signs Temp 98.7 F 05/30/17 06:09 Pulse 76 05/30/17 06:09 Resp 18 05/30/17 06:09 BP 126/60 05/30/17 06:09 Pulse Ox 93 L 05/30/17 06:09 Intake & Output 05/29/17 05/30/17 05/30/17 18:59 06:59 18:59 Intake Total 900 Output Total 1 Balance 899 Weight 113.398 kg Intake: Oral 900 Output: Emesis 1 Other: Voiding Method Toilet # Voids 2 2 1 # Bowel Movements 2 - Exam Physical exam 46-year-old female seen and examined resting in bed appearing in no acute distress Lungs adequate air movement bilaterally on room air Heart S1-S2 audible regular denying chest pain Abdomen soft nondistended with diffuse tenderness across the abdominal wall no facial grimacing with palpitation reports a nausea sensation no active emesis states had several episodes of incontinent stool last night Extremities no edema - Labs CBC & Chem 7: 05/28/17 18:58 05/30/17 07:40 Labs: Abnormal Lab Results - Last 24 Hours (Table) 05/29/17 05/30/17 Range/Units 08:46 07:40 BUN 6 L (7-17) mg/dL Calcium 8.1 L (8.4-10.2) mg/dL Delta Bilirubin 0.3 H (0.0-0.2) mg/dL AST 50 H (14-36) U/L ALT 65 H 53 H (9-52) U/L Total Protein 6.0 L 5.4 L (6.3-8.2) g/dL Albumin 3.2 L (3.5-5.0) g/dL Assessment and Plan Assessment: Impression Mild elevation of liver function test trending down Present on admission intractable nausea vomiting abdominal pain probable viral gastritis Recent April 26 endoscopically repair of hiatal hernia with mesh for symptomatic esophageal reflux symptoms Chronic pain with a pain pump in place History of multiple sclerosis Debilitated Frequent loose stools Computed tomography scan abdomen and pelvis on admission subcutaneous 1.8 cm fluid collection likely representing postoperative seroma with no evidence of a bowel obstruction Plan Schedule patient for an EGD tomorrow Nothing by mouth after midnight Resume home meds as appropriate Repeat labs in the morning DVT and GI prophylaxis Further recommendations pending Progress note dictated for dr alicea The above impression and plan of care have been discussed and directed by signing physician. Olesya Poe nurse practitioner acting as scribe for signing physician.
--- NOTE | 2017-05-30 23:41 | PN ---
PROGRESS NOTE SUBJECTIVE: White female admitted with abdominal pain, status post Ruth procedure. Still has vomiting and diarrhea. Awaiting surgical consultation, possible barium swallow. Vital signs are stable. Afebrile. CARDIOVASCULAR: S1, S2. LUNGS: Clear GI: Diffuse tenderness. Distended due to obesity. HEMATOLOGIC: Negative Homans. ASSESSMENT: Acute abdominal pain, status post Ruth. Possible gastroenteritis. Possible esophageal constriction. Continue current treatments. Await surgical recommendations. MMODL / IJN: [id number] /
[2017-05-31] MEDS: diphenhydrAMINE 50 MG/ML 1 ML VIAL IVP PRN ×2 (03:55→20:28)
[2017-05-31] MEDS: LORazepam 2 MG/ML INJ IV PRN ×3 (03:55→20:28)
[2017-05-31] MEDS: ONDANSETRON 4 MG/2 ML VIAL IVP PRN ×3 (03:55→21:51)
[2017-05-31] MEDS: METOCLOPRAMIDE 5 MG/ML 2 ML VIAL IVP SCH ×4 (05:57→23:37)
[2017-05-31] MEDS: metFORMIN 500 MG TAB PO SCH (08:13)
[2017-05-31] MEDS: NON-FORMULARY DRUG (Phentermine Hcl [Adipex-P] 37.5 MG) PO SCH (08:17)
[2017-05-31] MEDS: NON-FORMULARY DRUG (Lubiprostone [Amitiza] 24 MCG) PO SCH ×2 (08:17→20:35)
[2017-05-31] MEDS: QUINIDINE PO SCH ×2 (08:17→20:44)
[2017-05-31] MEDS: DEXTROMETHORPHAN HBR PO SCH ×2 (08:17→20:44)
[2017-05-31] MEDS: PANTOPRAZOLE 40 MG/10 ML VIAL IVP SCH (08:19)
[2017-05-31] MEDS: ATORVASTATIN 10 MG TAB PO SCH (08:20)
[2017-05-31] MEDS: ENOXAPARIN 40 MG/0.4 ML SYRINGE SQ SCH (08:20)
[2017-05-31] MEDS: LEVOTHYROXINE 100 MCG TAB PO SCH (08:20)
[2017-05-31] MEDS: MONTELUKAST 10 MG TAB PO SCH (08:20)
[2017-05-31] MEDS: DULoxetine HCL 60 MG CAPSULE.DR PO SCH (08:20)
[2017-05-31] MEDS: MODAFINIL 200 MG TAB PO SCH (08:20)
[2017-05-31] MEDS: BACLOFEN 10 MG TAB PO SCH ×4 (08:20→20:38)
[2017-05-31] MEDS: TERIFLUNOMIDE 7 MG PO SCH (08:20)
[2017-05-31] MEDS: MORPHINE ORAL SOLN 10 MG/5 ML CUP PO PRN ×3 (08:27→21:51)
[2017-05-31] MEDS: LOPERAMIDE 2 MG CAP PO PRN (08:27)
[2017-05-31 08:42] LABS: ALT 45 U/L (9-52); AST 24 U/L (14-36); Albumin 3.1 g/dL (3.5-5.0); Alkaline Phosphatase 73 U/L (38-126); Anion Gap 6 mmol/L; Blood Urea Nitrogen 4 mg/dL (7-17); Calcium 8.4 mg/dL (8.4-10.2); Carbon Dioxide 27 mmol/L (22-30); Chloride 108 mmol/L (98-107); Glucose 97 mg/dL (74-99); Potassium 3.7 mmol/L (3.5-5.1); Sodium 141 mmol/L (137-145); Total Bilirubin 0.2 mg/dL (0.2-1.3); Total Protein 5.3 g/dL (6.3-8.2)
[2017-05-31] MEDS: MORPHINE EPIDURAL SCH (09:30)
[2017-05-31] MEDS ORDERED: PROPOFOL 10 MG/ML 20 ML VIAL IV ONE (10:22)
[2017-05-31] MEDS ORDERED: LIDOCAINE 1% INJ 10MG/ML (20 ML MDV) ONE (10:22)
[2017-05-31] MEDS ORDERED: IV FLUID CONTINUATION 200 ML IV ONE (10:25)
[2017-05-31] MEDS ORDERED: SODIUM CHLORIDE 0.9% 1,000 ML IV ONE (10:44)
--- NOTE | 2017-05-31 10:56 | P.OP ---
Date of Procedure: 05/31/17 Preoperative Diagnosis: GERD, nausea Postoperative Diagnosis: Gastroparesis with a large amount of retained food within the stomach Procedure(s) Performed: EGD Anesthesia: MAC Surgeon: Skyler Denney Pathology: other (Antrum) Condition: stable Disposition: PACU Description of Procedure: The patient's placed on the endoscopy table lateral position. She received IV sedation. The gastroscope placed oropharynx and passed in the esophagus and stomach. Scope was then placed through the pylorus. First and second portion of the duodenum appeared normal. Scope was then brought back the antrum and this appeared inflamed a biopsies performed. The patient had a large amount of food within the stomach. There appeared to be gastroparesis. The stomach was retroflexed remainder some appeared normal. The GE junction was at 47 is. There was no hiatal hernia.. The distal esophagus and proximal esophagus appeared normal. Scope was withdrawn for patient.
[2017-05-31] MEDS ORDERED: CHOLECALCIFEROL 1,000 UNIT TAB PO SCH (12:00)
[2017-05-31] MEDS: BUTALB/APAP/CAFF 50-325-40MG TAB PO PRN (18:53)
[2017-05-31 21:04] LABS: Glucose,Whole Blood 126 mg/dL (75-99)
[2017-06-01] MEDS: LORazepam 2 MG/ML INJ IV PRN ×3 (00:23→18:53)
[2017-06-01] MEDS: MORPHINE ORAL SOLN 10 MG/5 ML CUP PO PRN ×3 (01:21→14:53)
[2017-06-01] MEDS: METOCLOPRAMIDE 5 MG/ML 2 ML VIAL IVP SCH ×3 (06:09→17:09)
[2017-06-01] MEDS: LEVOTHYROXINE 100 MCG TAB PO SCH (06:21)
[2017-06-01 07:17] LABS: Glucose,Whole Blood 106 mg/dL (75-99)
[2017-06-01] MEDS: MODAFINIL 200 MG TAB PO SCH (07:48)
[2017-06-01] MEDS: BACLOFEN 10 MG TAB PO SCH ×3 (07:48→17:09)
[2017-06-01] MEDS: metFORMIN 500 MG TAB PO SCH (07:48)
[2017-06-01] MEDS: ENOXAPARIN 40 MG/0.4 ML SYRINGE SQ SCH (07:49)
[2017-06-01] MEDS: DULoxetine HCL 60 MG CAPSULE.DR PO SCH (07:49)
[2017-06-01] MEDS: ATORVASTATIN 10 MG TAB PO SCH (07:49)
[2017-06-01] MEDS: MONTELUKAST 10 MG TAB PO SCH (07:49)
[2017-06-01] MEDS: TERIFLUNOMIDE 7 MG PO SCH (07:49)
[2017-06-01] MEDS: diphenhydrAMINE 50 MG/ML 1 ML VIAL IVP PRN ×2 (07:57→14:53)
[2017-06-01] MEDS: ONDANSETRON 4 MG/2 ML VIAL IVP PRN (07:57)
[2017-06-01] MEDS: DEXTROMETHORPHAN HBR PO SCH (08:04)
[2017-06-01] MEDS: NON-FORMULARY DRUG (Lubiprostone [Amitiza] 24 MCG) PO SCH (08:04)
[2017-06-01] MEDS: QUINIDINE PO SCH (08:04)
[2017-06-01] MEDS: NON-FORMULARY DRUG (Phentermine Hcl [Adipex-P] 37.5 MG) PO SCH (08:05)
[2017-06-01] MEDS ORDERED: PANTOPRAZOLE 40 MG TABLET PO SCH (09:00)
--- NOTE | 2017-06-01 09:32 | P.PN ---
Subjective Progress Note Date: 06/01/17 46-year-old female seen and examined at bedside. Patient is teary-eyed this morning states she's not feeling any improvement feels like she has a nausea sensation with dry heaves when she vomits it's just foam patient states I think there should be some answers" states she has taken Reglan at home and that does not help her. Patient is status post EGD done on May 31 it showed gastroparesis with a large amount of retained food within the stomach no hiatal hernia the esophagus up appeared normal Objective - Vital Signs Vital signs: Vital Signs Temp 98.1 F 06/01/17 07:00 Pulse 85 06/01/17 07:00 Resp 18 06/01/17 07:00 BP 147/75 06/01/17 07:00 Pulse Ox 97 06/01/17 07:00 Intake & Output 05/31/17 06/01/17 06/01/17 18:59 06:59 18:59 Intake Total 400 1200 Balance 400 1200 Intake: IV 400 Oral 1200 Other: # Voids 1 2 # Bowel Movements 0 - Exam Physical exam 46-year-old female seen and examined resting in bed very teary-eyed Lungs adequate air movement bilaterally on room air Heart S1-S2 audible regular denying chest pain Abdomen soft nondistended with diffuse tenderness across the abdominal wall with a nausea sensation dry heaves no stool urinating no difficulty Extremities no edema - Labs CBC & Chem 7: 05/28/17 18:58 05/31/17 07:57 Labs: Abnormal Lab Results - Last 24 Hours (Table) 05/31/17 06/01/17 Range/Units 20:50 07:08 POC Glucose (mg/dL) 126 H 106 H (75-99) mg/dL Microbiology - Last 24 Hours (Table) 05/30/17 14:51 Stool for WBCs - Final Stool Assessment and Plan Assessment: Impression Mild elevation of liver function test trending down Present on admission intractable nausea vomiting abdominal pain probable viral gastritis Recent April 26 endoscopically repair of hiatal hernia with mesh for symptomatic esophageal reflux symptoms Chronic pain with a pain pump in place History of multiple sclerosis Debilitated Frequent loose stools Computed tomography scan abdomen and pelvis on admission subcutaneous 1.8 cm fluid collection likely representing postoperative seroma with no evidence of a bowel obstruction Status post 31 of May gastroparesis with a large amount of retained food within the stomach Plan Continue Reglan as ordered Resume home meds as appropriate Repeat labs in the morning DVT and GI prophylaxis Further recommendations pending Progress note dictated for dr alicea The above impression and plan of care have been discussed and directed by signing physician. Olesya Poe nurse practitioner acting as scribe for signing physician.
[2017-06-01] MEDS ORDERED: NUEDEXTA PO SCH (10:00)
[2017-06-01] MEDS: MORPHINE EPIDURAL SCH (10:18)
[2017-06-01 11:50] LABS: Glucose,Whole Blood 98 mg/dL (75-99)
--- NOTE | 2017-06-01 12:43 | PN ---
PROGRESS NOTE DATE OF SERVICE: 05/31/2017 SUBJECTIVE: This is a white female who had EGD showed severe gastroparesis despite Reglan 10 mg a.c. and at bedtime. Abdominal pain, unable to eat or drink. No obstruction was seen. She is possibly going to be sent down to [facility] as surgeon has run out of ideas on how to fix her gastroparesis and abdominal pain. CARDIOVASCULAR: S1, S2. LUNGS: Clear. GI: Tender and diffuse. ENDOCRINE: BMI is over 30. Discussed the case with her and possible transfer. ASSESSMENT: 1. Severe gastroparesis. 2. Abdominal pain. 3. Poor oral intake. 4. Multiple sclerosis. 5. Hypertension. 6. Hypothyroidism. PLAN: Possibly transfer to [facility] unless Surgery can improve her symptoms with medications as Reglan failed. MMODL / IJN: [id number] /
[2017-06-01] MEDS: BUTALB/APAP/CAFF 50-325-40MG TAB PO PRN (14:53)
[2017-06-01] MEDS: LOPERAMIDE 2 MG CAP PO PRN (14:56)
[2017-06-01 15:26] VITALS: BP 143/97; PULSE 88; RESP 16; TEMP 97.2
== END 2017-06-01 18:56 | disposition short-term general hospital (02) | DRG 74 ==
LOC: EC 18:20 → 4MS4W 21:09
PROVIDERS: ADMIT Family Medicine; ATTEND Family Medicine
PROC: 0DB68ZX Excision of Stomach, Via Natural or Artificial Opening Endoscopic, Diagnostic (ICD-10-PCS; principal; 2017-05-28)
DX: E11.43 Type 2 diabetes mellitus with diabetic autonomic (poly)neuropathy (principal); K76.0 Fatty (change of) liver, not elsewhere classified; K91.872 Postprocedural seroma of a digestive system organ or structure following a digestive system procedure; G35 Multiple sclerosis; K31.84 Gastroparesis; E03.9 Hypothyroidism, unspecified; E66.9 Obesity, unspecified; G89.4 Chronic pain syndrome; I10 Essential (primary) hypertension; J45.909 Unspecified asthma, uncomplicated; K21.0 Gastro-esophageal reflux disease with esophagitis; Z79.84 Long term (current) use of oral hypoglycemic drugs; Z79.899 Other long term (current) drug therapy; Z82.49 Family history of ischemic heart disease and other diseases of the circulatory system; Z85.42 Personal history of malignant neoplasm of other parts of uterus; Z90.710 Acquired absence of both cervix and uterus; Z79.890 Hormone replacement therapy; Z79.891 Long term (current) use of opiate analgesic; Z88.5 Allergy status to narcotic agent; Z91.040 Latex allergy status
CPT/HCPCS: 36415; 43239; 74177; 80053; 80074; 80076; 82150; 82272; 83605; 83690; 84450; 84460; 84484; 85025; 87045; 87046; 87324; 87338; 87425; 87502; 88305; 89055; 96361; 96374; 96375; 96376; 99285

== ENCOUNTER 2017-06-15 14:35 | Observation (INO) | payer BC, MEDICARE ==
[2017-06-15] MEDS ORDERED: METOCLOPRAMIDE 5 MG/ML 2 ML VIAL IVP STA (15:34)
[2017-06-15] MEDS ORDERED: SODIUM CHLORIDE 0.9% 2,000 ML IV ONE (15:35)
[2017-06-15 15:58] LABS: Appearance,Urine Cloudy (Clear); Bacteria,Urine Occasional /hpf; Bilirubin,Urine Negative (Negative); Blood,Urine Negative (Negative); Budding Yeast,Urine Few /hpf; Color,Urine Yellow; Glucose,Urine (UA) Negative (Negative); Ketones,Urine Negative (Negative); Leukocyte Esterase,Urine Trace (Negative); Mucus,Urine Many /hpf; Nitrite,Urine Negative (Negative); PH, Urine 5.5 (5.0-8.0); Protein,Urine 1+ (Negative); RBC,Urine 67 /hpf (0-5); Specific Gravity,Urine 1.027 (1.001-1.035); Squamous Epithelial Cell,Urine 18 /hpf (0-4); WBC,Urine 17 /hpf (0-5)
--- NOTE | 2017-06-15 16:00 | ED ---
Nausea/Vomiting/Diarrhea HPI - General Chief complaint: Nausea/Vomiting/Diarrhea Stated complaint: gastroparesis Time Seen by Provider: 06/15/17 15:34 Source: patient, RN notes reviewed Mode of arrival: ambulatory Limitations: no limitations - History of Present Illness Initial comments: 47-year-old female presents emergency Department chief complaint abdominal issues. Patient states that she's been having ongoing issues last few months. Patient states that she's been transferred to other hospitals for further evaluation. Patient states that she's had issues with gastroparesis, was told that she had a for her stomach Surgery in a [place] complication here by Dr. Denney. Patient states states that she's had no fevers or chills. She was at Dr. Bartholomew's office few days ago though she nausea and diarrhea. Patient called office today and which she attempted to direct admit but then advised patient go to the emergency department to be admitted. Patient was instructed that she did receive IV Reglan - Related Data Home Medications Medication Instructions Recorded Confirmed Albuterol Sulfate [Proair Hfa] 2 puff INHALATION RT-Q6H PRN 09/26/15 06/15/17 Atorvastatin [Lipitor] 10 mg PO DAILY 09/26/15 06/15/17 Diclofenac Sodium [Voltaren Gel] 4 gm TOPICAL DAILY PRN 09/26/15 06/15/17 Lubiprostone [Amitiza] 24 mcg PO BID 09/26/15 06/15/17 Phentermine HCl [Adipex-P] 37.5 mg PO QAM 09/26/15 06/15/17 Levothyroxine Sodium [Synthroid] 100 mcg PO QAM 02/24/16 06/15/17 Morphine Sulfate Ir [MSIR] 15 mg PO Q4H PRN 02/24/16 06/15/17 Dextromethorphan HBr/Quinidine 1 cap PO BID 06/22/16 06/15/17 [Nuedexta 20-10 mg Capsule] Morphine Pain Pump 6.355 mg EPIDURAL DAILY 06/22/16 06/15/17 metFORMIN HCL [Metformin HCl] 250 mg PO DAILY 08/31/16 06/15/17 DULoxetine HCL [Cymbalta] 60 mg PO QAM 01/10/17 06/15/17 Modafinil [Provigil] 400 mg PO DAILY 01/10/17 06/15/17 cloNIDine 0.1 MG/24HR PATCH 1 patch TRANSDERM MO 01/10/17 06/15/17 [Catapres-TTS] Butalb/Acetaminophen/Caffeine 1 cap PO AC-TID PRN 01/16/17 06/15/17 [Esgic 50-325-40 Capsule] Ipratropium-Albuterol Nebulize 3 ml INHALATION RT-QID PRN 01/16/17 06/15/17 [Duoneb 0.5 mg-3 mg/3 ml Soln] INSULIN LISPRO (HumaLOG) [humaLOG] See Protocol SQ ACHS PRN 01/19/17 06/15/17 Cholecalciferol [Vitamin D3] 1,000 unit PO MOWE 03/03/17 06/15/17 Metoclopramide [Reglan] 10 mg PO ACHS 03/03/17 06/15/17 Teriflunomide [Aubagio] 14 mg PO DAILY 03/03/17 06/15/17 Baclofen [Lioresal] 20 mg PO QID 04/26/17 06/15/17 tiZANidine HCL [Zanaflex] 2 mg PO QID 06/15/17 06/15/17 Previous Rx's Medication Instructions Recorded Loperamide [Imodium] 2 mg PO QID PRN #30 cap 06/23/16 Montelukast [Singulair] 10 mg PO DAILY #30 tab 06/23/16 Allergies Allergy/AdvReac Type Severity Reaction Status Date / Time adhesive Allergy Severe Rash/Hives Verified 06/15/17 15:42 adhesive tape Allergy Severe Rash/Hives Verified 06/15/17 15:42 fentanyl Allergy Severe Rash/Hives Verified 06/15/17 15:42 latex Allergy Severe Rash/Hives Verified 06/15/17 15:42 Review of Systems ROS Statement: Those systems with pertinent positive or pertinent negative responses have been documented in the HPI. ROS Other: All systems not noted in ROS Statement are negative. Past Medical History Past Medical History: Asthma, Diabetes Mellitus, Hypertension, Musculoskeletal Disorder, Neurologic Disorder, Thyroid Disorder Additional Past Medical History / Comment(s): MS, DJD, back pain, History of Any Multi-Drug Resistant Organisms: None Reported Past Surgical History: Hernia Repair, Hysterectomy, Orthopedic Surgery, Tubal Ligation Additional Past Surgical History / Comment(s): rhinoplasty, bladder suspension, breast sx, morphine pump , RT KNEE SCOPE, TUMMY TUCK, SCS DEVICE INSERTED AND REMOVED-DOES NOT HAVE T-11 IN SPINE. Past Anesthesia/Blood Transfusion Reactions: Postoperative Nausea & Vomiting ( PONV) Past Psychological History: Depression Smoking Status: Never smoker Past Alcohol Use History: None Reported Past Drug Use History: None Reported - Past Family History Father Family Medical History: Hypertension Mother Family Medical History: Hypertension General Exam Limitations: no limitations General appearance: alert, in no apparent distress Head exam: Present: atraumatic, normocephalic, normal inspection Neck exam: Present: normal inspection. Absent: tenderness, meningismus, lymphadenopathy Respiratory exam: Present: normal lung sounds bilaterally. Absent: respiratory distress, wheezes, rales, rhonchi, stridor Cardiovascular Exam: Present: regular rate, normal rhythm, normal heart sounds. Absent: systolic murmur, diastolic murmur, rubs, gallop, clicks GI/Abdominal exam: Present: soft, tenderness, normal bowel sounds. Absent: distended, guarding, rebound, rigid Back exam: Absent: CVA tenderness (R), CVA tenderness (L) Skin exam: Present: warm, dry, intact, normal color. Absent: rash Course Vital Signs 06/15/17 06/15/17 14:53 17:21 Temperature 98.3 F Pulse Rate 94 78 Respiratory 18 18 Rate Blood Pressure 123/76 125/78 O2 Sat by Pulse 98 98 Oximetry Medical Decision Making - Lab Data Result diagrams: 06/15/17 16:07 06/15/17 16:07 Lab Results 06/15/17 06/15/17 06/15/17 Range/Units 15:26 16:07 16:07 WBC 7.2 (3.8-10.6) k/uL RBC 4.73 (3.80-5.40) m/uL Hgb 14.1 (11.4-16.0) gm/dL Hct 41.3 (34.0-46.0) % MCV 87.4 (80.0-100.0) fL MCH 29.8 (25.0-35.0) pg MCHC 34.1 (31.0-37.0) g/dL RDW 13.3 (11.5-15.5) % Plt Count 319 (150-450) k/uL Neutrophils % 55 % Lymphocytes % 33 % Monocytes % 5 % Eosinophils % 5 % Basophils % 1 % Neutrophils # 3.9 (1.3-7.7) k/uL Lymphocytes # 2.4 (1.0-4.8) k/uL Monocytes # 0.4 (0-1.0) k/uL Eosinophils # 0.4 (0-0.7) k/uL Basophils # 0.1 (0-0.2) k/uL Sodium 139 (137-145) mmol/L Potassium 3.8 (3.5-5.1) mmol/L Chloride 106 (98-107) mmol/L Carbon Dioxide 23 (22-30) mmol/L Anion Gap 10 mmol/L BUN 12 (7-17) mg/dL Creatinine 0.50 L (0.52-1.04) mg/dL Est GFR (CKD-EPI)AfAm >90 (>60 ml/min/1.73 sqM) Est GFR (CKD-EPI)NonAf >90 (>60 ml/min/1.73 sqM) Glucose 117 H (74-99) mg/dL Calcium 9.4 (8.4-10.2) mg/dL Total Bilirubin 0.5 (0.2-1.3) mg/dL AST 28 (14-36) U/L ALT 56 H (9-52) U/L Alkaline Phosphatase 91 (38-126) U/L Total Protein 6.5 (6.3-8.2) g/dL Albumin 4.0 (3.5-5.0) g/dL Amylase 51 (30-110) U/L Lipase 20 L (23-300) U/L Urine Color Yellow Urine Appearance Cloudy H (Clear) Urine pH 5.5 (5.0-8.0) Ur Specific [place] 1.027 (1.001-1.035) Urine Protein 1+ H (Negative) Urine Glucose (UA) Negative (Negative) Urine Ketones Negative (Negative) Urine Blood Negative (Negative) Urine Nitrite Negative (Negative) Urine Bilirubin Negative (Negative) Urine Urobilinogen 2.0 (<2.0) mg/dL Ur Leukocyte Esterase Trace H (Negative) Urine RBC 67 H (0-5) /hpf Urine WBC 17 H (0-5) /hpf Urine WBC Clumps Many H (None) /hpf Ur Squamous Epith Cells 18 H (0-4) /hpf Urine Bacteria Occasional H (None) /hpf Urine Mucus Many H (None) /hpf Urine Yeast (Budding) Few H (None) /hpf Disposition Clinical Impression: Intractable nausea and vomiting, Intractable abdominal pain, Abdominal pain, Gastroparesis Disposition: ADMITTED IP TO THIS [facility] Condition: Stable Referrals: Sean Wynne MD [Primary Care Provider] - 1-2 days
--- NOTE | 2017-06-15 16:00 | XR ---
EXAMINATION TYPE: XR KUB DATE OF EXAM: 06/15/2017 COMPARISON: 06/06/2015 HISTORY: Pain TECHNIQUE: One view abdominal series FINDINGS: The osseous structures are intact. The bowel gas pattern is nonspecific. Lung bases are clear. Auberry llic device overlying the right lower quadrant. Retained fecal debris. IMPRESSION: 1. Nonspecific abdomen.
[2017-06-15] MEDS: SODIUM CHLORIDE 0.9% 1,000 ML IV SCH (16:04)
[2017-06-15] MEDS ORDERED: diphenhydrAMINE 50 MG/ML 1 ML VIAL IVP STA (16:12)
[2017-06-15 16:21] LABS: Basophils # (A) 0.1 k/uL (0-0.2); Basophils % (A) 1 %; Eosinophils # (A) 0.4 k/uL (0-0.7); Eosinophils % (A) 5 %; HCT 41.3 % (34.0-46.0); HGB 14.1 gm/dL (11.4-16.0); Lymphocytes # (A) 2.4 k/uL (1.0-4.8); Lymphocytes % (A) 33 %; MCH 29.8 pg (25.0-35.0); MCHC 34.1 g/dL (31.0-37.0); MCV 87.4 fL (80.0-100.0); Monocytes # (A) 0.4 k/uL (0-1.0); Monocytes % (A) 5 %; Neutrophils # (A) 3.9 k/uL (1.3-7.7); Neutrophils % (A) 55 %; Platelet Count 319 k/uL (150-450); RBC 4.73 m/uL (3.80-5.40); RDW 13.3 % (11.5-15.5); WBC 7.2 k/uL (3.8-10.6)
[2017-06-15 16:26] LABS: ALT 56 U/L (9-52); AST 28 U/L (14-36); Alkaline Phosphatase 91 U/L (38-126); Amylase 51 U/L (30-110); Anion Gap 10 mmol/L; Blood Urea Nitrogen 12 mg/dL (7-17); Calcium 9.4 mg/dL (8.4-10.2); Carbon Dioxide 23 mmol/L (22-30); Chloride 106 mmol/L (98-107); Glucose 117 mg/dL (74-99); Lipase 20 U/L (23-300); Potassium 3.8 mmol/L (3.5-5.1); Sodium 139 mmol/L (137-145); Total Bilirubin 0.5 mg/dL (0.2-1.3); Total Protein 6.5 g/dL (6.3-8.2)
[2017-06-15] MEDS ORDERED: MORPHINE SULFATE 4 MG/ML SYRINGE IVP STA (17:44)
[2017-06-15] MEDS ORDERED: NALOXONE 0.4 MG/ML 1 ML VIAL IV PRN (17:47)
[2017-06-15] MEDS ORDERED: MORPHINE SULFATE IR 15 MG TABLET PO PRN (17:49)
[2017-06-15] MEDS ORDERED: IPRATROPIUM-ALBUTEROL 3 ML NEB INHALATION PRN (17:49)
[2017-06-15] MEDS: BACLOFEN 10 MG TAB PO SCH (20:17)
[2017-06-15] MEDS: METOCLOPRAMIDE 5 MG/ML 2 ML VIAL IVP SCH (20:53)
[2017-06-15] MEDS: MORPHINE SULFATE 4 MG/ML SYRINGE IVP PRN (20:53)
[2017-06-15 21:17] LABS: Glucose,Whole Blood 117 mg/dL (75-99)
[2017-06-15] MEDS: INSULIN ASPART 100 UNIT/ML 1 ML 10 ML VIAL SQ SCH (23:55)
[2017-06-16] MEDS: METOCLOPRAMIDE 5 MG/ML 2 ML VIAL IVP SCH ×4 (00:13→17:33)
[2017-06-16] MEDS: SODIUM CHLORIDE 0.9% 1,000 ML IV SCH ×4 (00:13→09:39)
[2017-06-16] MEDS: BACLOFEN 10 MG TAB PO SCH ×5 (00:13→21:16)
[2017-06-16 00:32] VITALS: BMI 38.0
[2017-06-16] MEDS: diphenhydrAMINE 50 MG/ML 1 ML VIAL IVP PRN ×3 (00:33→15:50)
[2017-06-16] MEDS: MORPHINE SULFATE 4 MG/ML SYRINGE IVP PRN ×4 (00:34→12:50)
[2017-06-16] MEDS: LEVOTHYROXINE 100 MCG TAB PO SCH (06:18)
[2017-06-16] MEDS: INSULIN ASPART 100 UNIT/ML 1 ML 10 ML VIAL SQ SCH ×5 (09:10→21:12)
[2017-06-16 09:15] LABS: Glucose,Whole Blood 139 mg/dL (75-99)
[2017-06-16] MEDS: Teriflunomide [Aubagio] 14 MG PO SCH (09:34)
[2017-06-16] MEDS: ATORVASTATIN 10 MG TAB PO SCH (09:34)
[2017-06-16] MEDS: DULoxetine HCL 60 MG CAPSULE.DR PO SCH (09:34)
[2017-06-16 11:08] LABS: Glucose,Whole Blood 110 mg/dL (75-99)
--- NOTE | 2017-06-16 11:28 | P.CONS ---
History of Present Illness - Reason for Consult Consult date: 06/16/17 gastroparesis Requesting physician: Sean Wynne - History of Present Illness 47-year-old female with a past medical history of multiple sclerosis, asthma, diabetes, hypertension, chronic back pain, chronic pain with morphine pump. Patient presents with a recent diagnosis of gastroparesis. She underwent endoscopic repair of hiatal hernia with 180 degree fundoplication wrap on [address] Denney. Patient states since her procedure she's had an EGD that confirmed large amount of retained food. She followed up at [facility] for further evaluation with a diagnosis of gastroparesis. [facility] to not provide any additional intervention secondary to her morphine pump. Patient is expressing a lot of frustration secondary to these ongoing symptoms. She reports chronic diarrhea chronic abdominal discomfort nausea vomiting since having the surgery. She has requested "to have this fixed " and is awaiting surgical evaluation. Oral Reglan worsens her diarrhea she states intravenous Reglan helps more with her nausea. Denies hematemesis hematochezia melena. Afebrile. KUB nonspecific abdomen. Review of Systems Constitutional: Denies fever, chills, sweats, weight gain, or loss. HEENT: Negative for migraines, blurred vision or loss, earaches, drainage, tinnitus, oral mucosal lesions, dysphagia, or odynophagia. CARDIAC: Negative for chest pain, arrhythmias, or palpitation. RESPIRATORY: Asthma. Negative for shortness of breath, hemoptysis, cough, or sputum production. GI: See HPI for pertinent findings. : Negative for hematuria, urgency, frequency, polyuria, or dysuria. GYNc: Denies possibility of . Negative vaginal discharge. MUSCULOSKELETAL: Multiple sclerosis. Chronic pain. Negative for muscle aches, swelling, arthritis, and arthralgias. NEUROLOGIC: Negative for stroke or TIA. ENDOCRINE: Negative for thyroid problems. SKIN: Negative for rash or itching. PSYCHIATRIC: Negative history for depression and anxiety Past Medical History Past Medical History: Asthma, Diabetes Mellitus, Hypertension, Musculoskeletal Disorder, Neurologic Disorder, Thyroid Disorder Additional Past Medical History / Comment(s): MS, DJD, back pain, History of Any Multi-Drug Resistant Organisms: None Reported Past Surgical History: Hernia Repair, Hysterectomy, Orthopedic Surgery, Tubal Ligation Additional Past Surgical History / Comment(s): rhinoplasty, bladder suspension, breast sx, morphine pump , RT KNEE SCOPE, TUMMY TUCK, SCS DEVICE INSERTED AND REMOVED-DOES NOT HAVE T-11 IN SPINE. Past Anesthesia/Blood Transfusion Reactions: Postoperative Nausea & Vomiting ( PONV) Past Psychological History: Depression Smoking Status: Never smoker Past Alcohol Use History: None Reported Past Drug Use History: None Reported - Past Family History Father Family Medical History: Hypertension Mother History Unknown: Yes Family Medical History: Hypertension Medications and Allergies Home Medications Medication Instructions Recorded Confirmed Type Albuterol Sulfate [Proair Hfa] 2 puff INHALATION RT-Q6H PRN 09/26/15 06/15/17 History Atorvastatin [Lipitor] 10 mg PO DAILY 09/26/15 06/15/17 History Diclofenac Sodium [Voltaren Gel] 4 gm TOPICAL DAILY PRN 09/26/15 06/15/17 History Lubiprostone [Amitiza] 24 mcg PO BID 09/26/15 06/15/17 History Phentermine HCl [Adipex-P] 37.5 mg PO QAM 09/26/15 06/15/17 History Levothyroxine Sodium [Synthroid] 100 mcg PO QAM 02/24/16 06/15/17 History Morphine Sulfate Ir [MSIR] 15 mg PO Q4H PRN 02/24/16 06/15/17 History Dextromethorphan HBr/Quinidine 1 cap PO BID 06/22/16 06/15/17 History [Nuedexta 20-10 mg Capsule] Morphine Pain Pump 6.355 mg EPIDURAL DAILY 06/22/16 06/15/17 History Loperamide [Imodium] 2 mg PO QID PRN #30 cap 06/23/16 06/15/17 Rx Montelukast [Singulair] 10 mg PO DAILY #30 tab 06/23/16 06/15/17 Rx metFORMIN HCL [Metformin HCl] 250 mg PO DAILY 08/31/16 06/15/17 History DULoxetine HCL [Cymbalta] 60 mg PO QAM 01/10/17 06/15/17 History Modafinil [Provigil] 400 mg PO DAILY 01/10/17 06/15/17 History cloNIDine 0.1 MG/24HR PATCH 1 patch TRANSDERM MO 01/10/17 06/15/17 History [Catapres-TTS] Butalb/Acetaminophen/Caffeine 1 cap PO AC-TID PRN 01/16/17 06/15/17 History [Esgic 50-325-40 Capsule] Ipratropium-Albuterol Nebulize 3 ml INHALATION RT-QID PRN 01/16/17 06/15/17 History [Duoneb 0.5 mg-3 mg/3 ml Soln] INSULIN LISPRO (HumaLOG) [humaLOG] See Protocol SQ ACHS PRN 01/19/17 06/15/17 History Cholecalciferol [Vitamin D3] 1,000 unit PO MOWE 03/03/17 06/15/17 History Metoclopramide [Reglan] 10 mg PO ACHS 03/03/17 06/15/17 History Teriflunomide [Aubagio] 14 mg PO DAILY 03/03/17 06/15/17 History Baclofen [Lioresal] 20 mg PO QID 04/26/17 06/15/17 History tiZANidine HCL [Zanaflex] 2 mg PO QID 06/15/17 06/15/17 History Allergies Allergy/AdvReac Type Severity Reaction Status Date / Time adhesive Allergy Severe Rash/Hives Verified 06/15/17 15:42 adhesive tape Allergy Severe Rash/Hives Verified 06/15/17 15:42 fentanyl Allergy Severe Rash/Hives Verified 06/15/17 15:42 latex Allergy Severe Rash/Hives Verified 06/15/17 15:42 Physical Exam Vitals: Vital Signs Temp Pulse Pulse Resp BP BP Pulse Ox 06/16/17 09:12 98.8 F 75 16 104/70 95 06/16/17 01:19 98.3 F 72 16 99/55 94 L 06/16/17 00:00 16 06/15/17 20:00 69 18 06/15/17 18:51 98.5 F 69 18 143/84 100 06/15/17 18:32 98.0 F 71 18 130/65 98 06/15/17 18:07 18 06/15/17 17:21 78 18 125/78 98 06/15/17 14:53 98.3 F 94 18 123/76 98 Intake and Output 06/15/17 06/16/17 06/16/17 22:59 06:59 14:59 Intake Total 650 237 Balance 650 237 Intake: Intake, IV Titration 300 Amount Sodium Chloride 0.9% 1, 300 000 ml @ 75 mls/hr IV . [id number] [facility] Rx#:[id number] Oral 350 237 Other: Voiding Method Toilet Toilet Toilet # Voids 3 1 1 Weight 113.398 kg General appearance: The patient is alert, oriented, in no acute distress. HET: Head is normocephalic and atraumatic. Pupils are equal and reactive. Oropharynx is clear without lesions. Neck: Supple without lymphadenopathy. Trachea midline. Heart: S1 S2. Regular rate and rhythm. Lungs: No crackles or wheezes are heard. Abdomen: Soft, mild tenderness midepigastrium, nondistended with bowel sounds. No peritoneal signs. No palpable organomegaly or masses. Extremities: Normal skin color and turgor. No cyanosis, rash, ulceration, clubbing, or edema. Radial and pedal pulses are 2/4 bilaterally. Neurological: No focal deficits. Strength and sensation are grossly intact. Results CBC & Chem 7: 06/15/17 16:07 06/15/17 16:07 Labs: Abnormal Lab Results - Last 24 Hours (Table) 06/15/17 06/15/17 06/15/17 Range/Units 15:26 16:07 21:15 Creatinine 0.50 L (0.52-1.04) mg/dL Glucose 117 H (74-99) mg/dL POC Glucose (mg/dL) 117 H (75-99) mg/dL ALT 56 H (9-52) U/L Lipase 20 L (23-300) U/L Urine Appearance Cloudy H (Clear) Urine Protein 1+ H (Negative) Ur Leukocyte Esterase Trace H (Negative) Urine RBC 67 H (0-5) /hpf Urine WBC 17 H (0-5) /hpf Urine WBC Clumps Many H (None) /hpf Ur Squamous Epith Cells 18 H (0-4) /hpf Urine Bacteria Occasional H (None) /hpf Urine Mucus Many H (None) /hpf Urine Yeast (Budding) Few H (None) /hpf 06/16/17 06/16/17 Range/Units 09:13 11:03 Creatinine (0.52-1.04) mg/dL Glucose (74-99) mg/dL POC Glucose (mg/dL) 139 H 110 H (75-99) mg/dL ALT (9-52) U/L Lipase (23-300) U/L Urine Appearance (Clear) Urine Protein (Negative) Ur Leukocyte Esterase (Negative) Urine RBC (0-5) /hpf Urine WBC (0-5) /hpf Urine WBC Clumps (None) /hpf Ur Squamous Epith Cells (0-4) /hpf Urine Bacteria (None) /hpf Urine Mucus (None) /hpf Urine Yeast (Budding) (None) /hpf Microbiology - Last 24 Hours (Table) 06/15/17 15:26 Urine Culture - Preliminary Urine,Clean Catch Abdominal x-ray: report reviewed (Dr. Orourke) Assessment and Plan (1) Abdominal pain Narrative/Plan: Intractable nausea vomiting upper abdominal pain status post fundoplication April 2017 with worsening nausea vomiting diarrhea recently evaluated at [facility] with diagnosis of gastroparesis without further intervention. Current Visit: Yes Status: Acute Code(s): R10.9 - UNSPECIFIED ABDOMINAL PAIN SNOMED Code(s): 47808607 Plan: 1. General surgical consult. 2. Scopolamine patch for nausea. Continue intravenous Reglan. Iv Protonix. Diet as tolerated per patient request. Thank you for this kind referral and the opportunity to participate in the care of your patient. This consultation was discussed with Dr. Orourke. The impression and plan of care have been directed as dictated.
[2017-06-16] MEDS ORDERED: SCOPOLAMINE 1.5MG/72HR PATCH TRANSDERM STA (12:09)
--- NOTE | 2017-06-16 12:32 | P.GSCN ---
History of Present Illness Consult date: 06/16/17 History of present illness: 47-year-old female well known to Dr. alicea service presented to the emergency room for chief complaint of ongoing abdominal pain with nausea vomiting frequent stooling. Patient states that there has been no improvement since her last hospitalization. Patient has a history of multiple sclerosis with limited mobility and uses a pain pump. Patient has had multiple admissions and workup for gastroparesis. Recently had an EGD May 31 at this facility which did show large amount of retained food. That admission the patient was transferred to [facility] for further evaluation for diagnosis of gastroparesis for a workup. According to the patient she was at [facility] in [place] for a week according to the patient they told her that her primary surgeon would need to address the gastroparesis that there would not be any intervention at [facility]. Patient is expressing a sense of frustration. She states "that she wants this fixed by Dr. alicea wants food that is in the stomach retained taken out " "I'm not leaving the hospital this time until this is fixed" patient states that she's been having emesis is described as foamy. She hasn' t eaten 48 hours. Patient states she has severe pain in the right upper quadrant cannot take the pain anymore. Patient is stating that IV Reglan is effective for the nausea sensation. Patient asking for a diet states that she' s hungry Patient is teary-eyed stating she cannot take much more this" patient states she's under a lot of stress at home her daughter 16 years of age is at a facility for mental illness after attempted suicide according to the patient Patient has a past medical history multiple sclerosis, hypertension, chronic back pain with the pain pump morphine asthma Past surgical history patient has had an extensive past surgical history multiple EGDs, bladder suspension, tummy tuck. Review of Systems Essentially unremarkable except as mentioned in the present illness Past Medical History Past Medical History: Asthma, Diabetes Mellitus, Hypertension, Musculoskeletal Disorder, Neurologic Disorder, Thyroid Disorder Additional Past Medical History / Comment(s): MS, DJD, back pain, History of Any Multi-Drug Resistant Organisms: None Reported Past Surgical History: Hernia Repair, Hysterectomy, Orthopedic Surgery, Tubal Ligation Additional Past Surgical History / Comment(s): rhinoplasty, bladder suspension, breast sx, morphine pump , RT KNEE SCOPE, TUMMY TUCK, SCS DEVICE INSERTED AND REMOVED-DOES NOT HAVE T-11 IN SPINE. Past Anesthesia/Blood Transfusion Reactions: Postoperative Nausea & Vomiting ( PONV) Past Psychological History: Depression Smoking Status: Never smoker Past Alcohol Use History: None Reported Past Drug Use History: None Reported - Past Family History Father Family Medical History: Hypertension Mother History Unknown: Yes Family Medical History: Hypertension Medications and Allergies Home Medications Medication Instructions Recorded Confirmed Type Albuterol Sulfate [Proair Hfa] 2 puff INHALATION RT-Q6H PRN 09/26/15 06/15/17 History Atorvastatin [Lipitor] 10 mg PO DAILY 09/26/15 06/15/17 History Diclofenac Sodium [Voltaren Gel] 4 gm TOPICAL DAILY PRN 09/26/15 06/15/17 History Lubiprostone [Amitiza] 24 mcg PO BID 09/26/15 06/15/17 History Phentermine HCl [Adipex-P] 37.5 mg PO QAM 09/26/15 06/15/17 History Levothyroxine Sodium [Synthroid] 100 mcg PO QAM 02/24/16 06/15/17 History Morphine Sulfate Ir [MSIR] 15 mg PO Q4H PRN 02/24/16 06/15/17 History Dextromethorphan HBr/Quinidine 1 cap PO BID 06/22/16 06/15/17 History [Nuedexta 20-10 mg Capsule] Morphine Pain Pump 6.355 mg EPIDURAL DAILY 06/22/16 06/15/17 History Loperamide [Imodium] 2 mg PO QID PRN #30 cap 06/23/16 06/15/17 Rx Montelukast [Singulair] 10 mg PO DAILY #30 tab 06/23/16 06/15/17 Rx metFORMIN HCL [Metformin HCl] 250 mg PO DAILY 08/31/16 06/15/17 History DULoxetine HCL [Cymbalta] 60 mg PO QAM 01/10/17 06/15/17 History Modafinil [Provigil] 400 mg PO DAILY 01/10/17 06/15/17 History cloNIDine 0.1 MG/24HR PATCH 1 patch TRANSDERM MO 01/10/17 06/15/17 History [Catapres-TTS] Butalb/Acetaminophen/Caffeine 1 cap PO AC-TID PRN 01/16/17 06/15/17 History [Esgic 50-325-40 Capsule] Ipratropium-Albuterol Nebulize 3 ml INHALATION RT-QID PRN 01/16/17 06/15/17 History [Duoneb 0.5 mg-3 mg/3 ml Soln] INSULIN LISPRO (HumaLOG) [humaLOG] See Protocol SQ ACHS PRN 01/19/17 06/15/17 History Cholecalciferol [Vitamin D3] 1,000 unit PO MOWE 03/03/17 06/15/17 History Metoclopramide [Reglan] 10 mg PO ACHS 03/03/17 06/15/17 History Teriflunomide [Aubagio] 14 mg PO DAILY 03/03/17 06/15/17 History Baclofen [Lioresal] 20 mg PO QID 04/26/17 06/15/17 History tiZANidine HCL [Zanaflex] 2 mg PO QID 06/15/17 06/15/17 History Allergies Allergy/AdvReac Type Severity Reaction Status Date / Time adhesive Allergy Severe Rash/Hives Verified 06/15/17 15:42 adhesive tape Allergy Severe Rash/Hives Verified 06/15/17 15:42 fentanyl Allergy Severe Rash/Hives Verified 06/15/17 15:42 latex Allergy Severe Rash/Hives Verified 06/15/17 15:42 Surgical - Exam Vital Signs Temp Pulse Resp BP Pulse Ox 98.3 F 94 18 123/76 98 06/15/17 14:53 06/15/17 14:53 06/15/17 14:53 06/15/17 14:53 06/15/17 14:53 GENERAL APPEARANCE: 47-year-old female teary-eyed resting in bed states having severe right upper quadrant pain VITAL SIGNS: Reviewed HEENT: Head is normocephalic and atraumatic. Pupils are equal and reactive. The nares are patent. Oropharynx is clear without lesions. NECK: Supple without lymphadenopathy. Traches midline. HEART: S1, S2. Regular rate and rhythm. Denies chest pain LUNGS: No crackles or wheezes are heard. On room air adequate air movement ABDOMEN: Soft, mild tenderness right upper quadrant nondistended with good bowel sounds. No peritoneal signs. No palpable organomegaly or masses. EXTREMITIES: Normal skin color and turgor. No cyanosis, rash, ulceration, clubbing or edema. Radial pedal pulses are 2/4 bilaterally. NEUROLOGICAL: No focal deficits. Strength and sensation are grossly intact. Results - Labs 06/15/17 16:07 06/15/17 16:07 Abnormal Lab Results - Last 24 Hours (Table) 06/15/17 06/15/17 06/15/17 Range/Units 15:26 16:07 21:15 Creatinine 0.50 L (0.52-1.04) mg/dL Glucose 117 H (74-99) mg/dL POC Glucose (mg/dL) 117 H (75-99) mg/dL ALT 56 H (9-52) U/L Lipase 20 L (23-300) U/L Urine Appearance Cloudy H (Clear) Urine Protein 1+ H (Negative) Ur Leukocyte Esterase Trace H (Negative) Urine RBC 67 H (0-5) /hpf Urine WBC 17 H (0-5) /hpf Urine WBC Clumps Many H (None) /hpf Ur Squamous Epith Cells 18 H (0-4) /hpf Urine Bacteria Occasional H (None) /hpf Urine Mucus Many H (None) /hpf Urine Yeast (Budding) Few H (None) /hpf 06/16/17 06/16/17 Range/Units 09:13 11:03 Creatinine (0.52-1.04) mg/dL Glucose (74-99) mg/dL POC Glucose (mg/dL) 139 H 110 H (75-99) mg/dL ALT (9-52) U/L Lipase (23-300) U/L Urine Appearance (Clear) Urine Protein (Negative) Ur Leukocyte Esterase (Negative) Urine RBC (0-5) /hpf Urine WBC (0-5) /hpf Urine WBC Clumps (None) /hpf Ur Squamous Epith Cells (0-4) /hpf Urine Bacteria (None) /hpf Urine Mucus (None) /hpf Urine Yeast (Budding) (None) /hpf Microbiology - Last 24 Hours (Table) 06/15/17 15:26 Urine Culture - Preliminary Urine,Clean Catch Diabetes panel 06/15/17 Range/Units 16:07 Sodium 139 (137-145) mmol/L Potassium 3.8 (3.5-5.1) mmol/L Chloride 106 (98-107) mmol/L Carbon Dioxide 23 (22-30) mmol/L BUN 12 (7-17) mg/dL Creatinine 0.50 L (0.52-1.04) mg/dL Glucose 117 H (74-99) mg/dL Calcium 9.4 (8.4-10.2) mg/dL AST 28 (14-36) U/L ALT 56 H (9-52) U/L Alkaline Phosphatase 91 (38-126) U/L Total Protein 6.5 (6.3-8.2) g/dL Albumin 4.0 (3.5-5.0) g/dL Calcium panel 06/15/17 Range/Units 16:07 Calcium 9.4 (8.4-10.2) mg/dL Albumin 4.0 (3.5-5.0) g/dL Pituitary panel 06/15/17 Range/Units 16:07 Sodium 139 (137-145) mmol/L Potassium 3.8 (3.5-5.1) mmol/L Chloride 106 (98-107) mmol/L Carbon Dioxide 23 (22-30) mmol/L BUN 12 (7-17) mg/dL Creatinine 0.50 L (0.52-1.04) mg/dL Glucose 117 H (74-99) mg/dL Calcium 9.4 (8.4-10.2) mg/dL Adrenal panel 06/15/17 Range/Units 16:07 Sodium 139 (137-145) mmol/L Potassium 3.8 (3.5-5.1) mmol/L Chloride 106 (98-107) mmol/L Carbon Dioxide 23 (22-30) mmol/L BUN 12 (7-17) mg/dL Creatinine 0.50 L (0.52-1.04) mg/dL Glucose 117 H (74-99) mg/dL Calcium 9.4 (8.4-10.2) mg/dL Total Bilirubin 0.5 (0.2-1.3) mg/dL AST 28 (14-36) U/L ALT 56 H (9-52) U/L Alkaline Phosphatase 91 (38-126) U/L Total Protein 6.5 (6.3-8.2) g/dL Albumin 4.0 (3.5-5.0) g/dL Assessment and Plan Assessment: Impression Present on admission intractable nausea vomiting upper abdominal pain likely due to gastroparesis Chronic pain with a pain pump Multiple sclerosis limited mobility wheelchair bedbound A recent April 26 into scalp he repair hiatal hernia with mesh for symptomatic esophageal reflux symptoms A recent EGD May 31 2017 confirmed a large amount of retained food Chronic abdominal discomfort with chronic nausea Plan Further recommendations pending eval by dr alicea Home meds as appropriate Pain pump as ordered Scopolamine patch for nausea Continue IV Reglan as ordered IV protonix as ordered Will follow with you Surgical consultation note dictated for Dr. alicea The above impression and plan of care have been discussed and directed by signing physician. Olesya Poe nurse practitioner acting as scribe for signing physician.
[2017-06-16] MEDS: PANTOPRAZOLE 40 MG/10 ML VIAL IVP SCH ×2 (12:49→21:16)
[2017-06-16] MEDS: HEPARIN SODIUM,PORCINE 5,000 UNIT/ML 1 ML VIAL SQ SCH (17:06)
[2017-06-16] MEDS: MORPHINE ORAL SOLN 10 MG/5 ML CUP PO PRN (17:06)
[2017-06-16 17:11] LABS: Glucose,Whole Blood 111 mg/dL (75-99)
[2017-06-16 20:54] LABS: Glucose,Whole Blood 113 mg/dL (75-99)
[2017-06-17] MEDS: METOCLOPRAMIDE 5 MG/ML 2 ML VIAL IVP SCH ×3 (00:32→12:08)
[2017-06-17] MEDS: HEPARIN SODIUM,PORCINE 5,000 UNIT/ML 1 ML VIAL SQ SCH ×2 (00:32→08:56)
[2017-06-17] MEDS: diphenhydrAMINE 50 MG/ML 1 ML VIAL IVP PRN ×3 (01:53→12:08)
[2017-06-17] MEDS: MORPHINE ORAL SOLN 10 MG/5 ML CUP PO PRN ×3 (01:53→12:07)
[2017-06-17] MEDS: SODIUM CHLORIDE 0.9% 1,000 ML IV SCH ×2 (06:39→08:55)
[2017-06-17] MEDS: BACLOFEN 10 MG TAB PO SCH ×2 (06:44→12:09)
[2017-06-17] MEDS: LEVOTHYROXINE 100 MCG TAB PO SCH (06:44)
[2017-06-17 07:08] LABS: Glucose,Whole Blood 122 mg/dL (75-99)
[2017-06-17] MEDS: INSULIN ASPART 100 UNIT/ML 1 ML 10 ML VIAL SQ SCH ×2 (07:17→12:10)
[2017-06-17 07:23] VITALS: RESP 18
[2017-06-17 07:24] LABS: Basophils # (A) 0.1 k/uL (0-0.2); Basophils % (A) 1 %; Eosinophils # (A) 0.4 k/uL (0-0.7); Eosinophils % (A) 5 %; HCT 35.8 % (34.0-46.0); HGB 11.8 gm/dL (11.4-16.0); Lymphocytes % (A) 28 %; MCH 29.3 pg (25.0-35.0); MCHC 32.9 g/dL (31.0-37.0); MCV 89.1 fL (80.0-100.0); Mean Platelet Volume 7.5; Monocytes # (A) 0.5 k/uL (0-1.0); Monocytes % (A) 6 %; Neutrophils # (A) 4.2 k/uL (1.3-7.7); Neutrophils % (A) 59 %; Platelet Count 292 k/uL (150-450); RBC 4.01 m/uL (3.80-5.40); RDW 13.4 % (11.5-15.5); WBC 7.2 k/uL (3.8-10.6)
[2017-06-17 07:55] LABS: ALT 49 U/L (9-52); AST 23 U/L (14-36); Albumin 3.2 g/dL (3.5-5.0); Alkaline Phosphatase 82 U/L (38-126); Anion Gap 8 mmol/L; Blood Urea Nitrogen 5 mg/dL (7-17); Calcium 8.6 mg/dL (8.4-10.2); Carbon Dioxide 24 mmol/L (22-30); Chloride 108 mmol/L (98-107); Glucose 122 mg/dL (74-99); Potassium 4.1 mmol/L (3.5-5.1); Sodium 140 mmol/L (137-145); Total Bilirubin 0.3 mg/dL (0.2-1.3); Total Protein 5.4 g/dL (6.3-8.2)
--- NOTE | 2017-06-17 08:02 | HP ---
HISTORY AND PHYSICAL CHIEF COMPLAINT: 47-year-old white female, gastroparesis, severe abdominal pain. HISTORY OF PRESENT ILLNESS: A white female who developed severe abdominal pain, nausea, vomiting, unable to swallow food, status post Ruth procedure 2 months ago. She has had difficulty ever since surgery. She is recommended a gastric sleeve procedure to be done or reversal of her Ruth procedure as she thinks it is too tight and her diet has not been the same. She is unable to eat and she has nausea and severe gastroparesis ever since surgery. Before that she had gastroparesis and multiple sclerosis, but she had no difficulty with her swallowing or abdominal pain or gastroparesis like she does now, which she thinks is from surgery. HOME MEDICATIONS: Albuterol, Lipitor, Voltaren, Amitiza, Adipex-P, Synthroid, MS IR, Nuedexta, metformin, Cymbalta, Provigil, Catapres patch, DuoNeb updrafts, Reglan, Lioresal, Zanaflex, Aubagio. PAST MEDICAL HISTORY: Asthma, diabetes mellitus, hypertension, musculoskeletal disorder, thyroid disorder, neurologic disorder, DJD. SURGERY: Hernia repair, hysterectomy, orthopedic surgery, tubal ligation, rhinoplasty, bladder suspension, morphine problem, right knee scope. SOCIAL HISTORY: Does not smoke, drinks alcohol or take illicit drugs. PAST FAMILY MEDICAL HISTORY: Father with hypertension. Mother with hypertension. PHYSICAL EXAM: Vital signs stable, afebrile. CARDIOVASCULAR: S1, S2. LUNGS: Transmitted upper sounds. GI: Soft, nontender. She has abdominal distention, has decreased bowel sounds. HEMATOLOGIC: Negative Homans. PSYCH: Fair mood and affect. NEUROLOGIC: Alert and oriented x3. VASCULAR: Normal dorsalis pedis, posterior tibial, radial pulse. ASSESSMENT: Irretractable nausea, vomiting, and irretractable abdominal pain, gastroparesis, possible Ruth abnormality causing severe trouble with bowels. Await surgical repair of the issue as this is clearly related to Ruth procedure as that is when the procedure occurred and abdominal pain and vomiting started. MMODL / IJN: [id number] /
--- NOTE | 2017-06-17 08:39 | FL ---
EXAMINATION TYPE: FL barium swallow DATE OF EXAM ORDERED: 06/17/2017 8:24 AM HISTORY: History of Ruth fundoplication. COMPARISON: None. FINDINGS: The esophagus distended normally with air and barium without evidence of obstructing or co nstricting disease. The mucosal pattern throughout the esophagus is normal. There is no significant h iatal hernia or reflux. Stomach contour is unremarkable. There is no fixed filling defect or yanira ulceration. The duodenal c ap and sweep are normal. IMPRESSION: NORMAL AIR-CONTRAST UPPER GI SERIES.
[2017-06-17] MEDS: Teriflunomide [Aubagio] 14 MG PO SCH (08:54)
[2017-06-17] MEDS: PANTOPRAZOLE 40 MG/10 ML VIAL IVP SCH (08:54)
[2017-06-17] MEDS: DULoxetine HCL 60 MG CAPSULE.DR PO SCH (08:54)
[2017-06-17] MEDS: ATORVASTATIN 10 MG TAB PO SCH (08:55)
--- NOTE | 2017-06-17 10:54 | P.PN ---
Progress Note - Text Progress Note Date: 06/17/17 The patient states he feels better today. She and esophagram performed showed no evidence of hilar hernia, obstruction or reflux. She is requesting a home. On exam her vital signs are stable. Her abdomen soft. It. Patient is stable for discharge. I recommended she stay on a full liquid diet to her gastroparesis. She'll follow-up in the burn center in 1-2 weeks.
[2017-06-17 11:28] LABS: Glucose,Whole Blood 120 mg/dL (75-99)
[2017-06-17 14:39] VITALS: BP 99/67; PULSE 72; TEMP 97.9
[2017-06-17] MEDS ORDERED: PANTOPRAZOLE 40 MG TABLET PO SCH (17:30)
== END 2017-06-17 15:30 | disposition home or self-care (01) ==
LOC: EC 14:35 → 3SUR 17:55
PROVIDERS: ADMIT Family Medicine; ATTEND Family Medicine
DX: E11.43 Type 2 diabetes mellitus with diabetic autonomic (poly)neuropathy (principal); K31.84 Gastroparesis; G35 Multiple sclerosis; I10 Essential (primary) hypertension; E07.9 Disorder of thyroid, unspecified; J45.909 Unspecified asthma, uncomplicated; M19.90 Unspecified osteoarthritis, unspecified site; M54.9 Dorsalgia, unspecified; F32.9 Major depressive disorder, single episode, unspecified; R19.7 Diarrhea, unspecified; G89.29 Other chronic pain; Z79.899 Other long term (current) drug therapy; Z79.84 Long term (current) use of oral hypoglycemic drugs; Z91.040 Latex allergy status; Z88.5 Allergy status to narcotic agent; Z91.048 Other nonmedicinal substance allergy status; Z82.49 Family history of ischemic heart disease and other diseases of the circulatory system; Z79.4 Long term (current) use of insulin; Z99.3 Dependence on wheelchair; Z96.89 Presence of other specified functional implants
CPT/HCPCS: 99285 ×2; 96374 ×2; 96361 ×4; 96375 ×4; 96376 ×3; 96372 ×2; 36415; 80053 ×2; 82150; 83690; 85025 ×2; 81001; 87086; 74220; 74018; G0378 ×3; J2270 ×2; J1200 ×3; J1644 ×2; J2765 ×3; C9113 ×2

== ENCOUNTER 2017-07-12 07:53 | Day surgery (SDC) | payer BC, MEDICARE ==
[2017-07-07 14:19] VITALS: BMI 38.5
[~2017-07-12 07:53] MED LIST changes: +DEXAMETHASONE SOD PHOSPHATE 10 MG/ML 1 ML VIAL IV ONE; -LIDOCAINE 1% 20 ML VIAL (10MG/ML) FOR IV START INTRADERMA PRN; +ONDANSETRON 4 MG/2 ML VIAL IVP ONE; -ceFAZolin IN SWFI 2 GM/20 ML SYRINGE IVP ONE
[2017-07-12 08:09] VITALS: RESP 18; TEMP 98.3
[2017-07-12] MEDS: LACTATED RINGERS 1,000 ML IV SCH ×2 (08:25→08:28)
[2017-07-12 08:29] LABS: Glucose,Whole Blood 142 mg/dL (75-99)
[2017-07-12] MEDS ORDERED: GLYCOPYRROLATE 0.2 MG/ML 2 ML VIAL ONE (08:30)
[2017-07-12] MEDS ORDERED: PROPOFOL 10 MG/ML 20 ML VIAL IV ONE (08:30)
[2017-07-12] MEDS ORDERED: LIDOCAINE 1% INJ 10MG/ML (20 ML MDV) ONE (08:30)
--- NOTE | 2017-07-12 08:37 | P.GSHP ---
History of Present Illness H&P Date: 07/12/17 Chief Complaint: Gastritis, gastroparesis This a 47-year-old female who presents today for EGD. She's had issues with gastritis and gastroparesis. Patient is also had some chronic nausea. Patient' s had previous esophagram which shows no evidence of any obstruction of the GE junction. She's had a previous hiatal hernia repair. Past Medical History Past Medical History: Asthma, Diabetes Mellitus, Hypertension, Musculoskeletal Disorder, Neurologic Disorder, Thyroid Disorder Additional Past Medical History / Comment(s): MS, back pain, DEGENERATIVE DISC DISEASE History of Any Multi-Drug Resistant Organisms: None Reported Past Surgical History: Bladder Surgery, Hernia Repair, Hysterectomy, Orthopedic Surgery, Tubal Ligation Additional Past Surgical History / Comment(s): rhinoplasty, bladder suspension, breast sx, morphine pump , RT KNEE SCOPE, TUMMY TUCK, SCS DEVICE INSERTED AND REMOVED-DOES NOT HAVE T-11 IN SPINE. Past Anesthesia/Blood Transfusion Reactions: Motion Sickness, Postoperative Nausea & Vomiting (PONV) Smoking Status: Never smoker - Past Family History Father Family Medical History: Hypertension Mother History Unknown: Yes Family Medical History: No Reported History, Unable to Obtain Additional Family Medical History / Comment(s): NO FAMILY HISTORY Medications and Allergies Home Medications Medication Instructions Recorded Confirmed Type Albuterol Sulfate [Proair Hfa] 2 puff INHALATION RT-Q6H PRN 09/26/15 07/12/17 History Atorvastatin [Lipitor] 10 mg PO DAILY 09/26/15 07/12/17 History Diclofenac Sodium [Voltaren Gel] 4 gm TOPICAL DAILY PRN 09/26/15 07/12/17 History Lubiprostone [Amitiza] 24 mcg PO BID 09/26/15 07/12/17 History Phentermine HCl [Adipex-P] 37.5 mg PO QAM 09/26/15 07/12/17 History Levothyroxine Sodium [Synthroid] 100 mcg PO QAM 02/24/16 07/12/17 History Morphine Sulfate Ir [MSIR] 15 mg PO Q4H PRN 02/24/16 07/12/17 History Dextromethorphan HBr/Quinidine 1 cap PO BID 06/22/16 07/12/17 History [Nuedexta 20-10 mg Capsule] Morphine Pain Pump 7 mg EPIDURAL DAILY 06/22/16 07/12/17 History Loperamide [Imodium] 2 mg PO QID PRN #30 cap 06/23/16 07/12/17 Rx Montelukast [Singulair] 10 mg PO DAILY #30 tab 06/23/16 07/12/17 Rx metFORMIN HCL [Metformin HCl] 250 mg PO DAILY 08/31/16 07/12/17 History DULoxetine HCL [Cymbalta] 60 mg PO QAM 01/10/17 07/12/17 History Modafinil [Provigil] 400 mg PO DAILY 01/10/17 07/12/17 History cloNIDine 0.1 MG/24HR PATCH 1 patch TRANSDERM MO 01/10/17 07/12/17 History [Catapres-TTS] Butalb/Acetaminophen/Caffeine 1 cap PO AC-TID PRN 01/16/17 07/12/17 History [Esgic 50-325-40 Capsule] Ipratropium-Albuterol Nebulize 3 ml INHALATION RT-QID PRN 01/16/17 07/12/17 History [Duoneb 0.5 mg-3 mg/3 ml Soln] INSULIN LISPRO (HumaLOG) [humaLOG] See Protocol SQ ACHS PRN 01/19/17 07/12/17 History Cholecalciferol [Vitamin D3] 1,000 unit PO MOWE 03/03/17 07/12/17 History Metoclopramide [Reglan] 10 mg PO QID 03/03/17 07/12/17 History Teriflunomide [Aubagio] 14 mg PO DAILY 03/03/17 07/12/17 History Baclofen [Lioresal] 20 mg PO QID 04/26/17 07/12/17 History tiZANidine HCL [Zanaflex] 2 mg PO QID 06/15/17 07/12/17 History Scopolamine 1.5MG/72Hr Patch 1 patch TRANSDERM Q72H 07/07/17 07/12/17 History [Transderm-Scop 1.5MG/72Hr Patch] Allergies Allergy/AdvReac Type Severity Reaction Status Date / Time adhesive Allergy Severe Rash/Hives Verified 07/12/17 08:11 adhesive tape Allergy Severe Rash/Hives Verified 07/12/17 08:11 fentanyl Allergy Severe Rash/Hives Verified 07/12/17 08:11 latex Allergy Severe Rash/Hives Verified 07/12/17 08:11 Surgical - Exam Vital Signs Temp Pulse Resp BP Pulse Ox 98.3 F 84 18 126/59 95 07/12/17 08:06 07/12/17 08:06 07/12/17 08:06 07/12/17 08:06 07/12/17 08:06 Patient's morbidly obese with BMI of 39. - General well developed, no distress - Eyes PERRL - ENT normal pinna - Neck no masses - Respiratory normal expansion - Cardiovascular Rhythm: regular - Abdomen Abdomen: soft, non tender Results - Labs Abnormal Lab Results - Last 24 Hours (Table) 07/12/17 Range/Units 08:22 POC Glucose (mg/dL) 142 H (75-99) mg/dL Assessment and Plan Assessment: History of gastritis and gastroparesis. We'll perform EGD.
--- NOTE | 2017-07-12 08:51 | P.OP ---
Date of Procedure: 07/12/17 Preoperative Diagnosis: Gastritis Postoperative Diagnosis: Mild antral gastritis Fundal polyp No evidence of hiatal hernia No evidence of GE junction stricture Mild esophagitis pathology pending Procedure(s) Performed: EGD Anesthesia: MAC Surgeon: Skyler Denney Pathology: other (Antrum, esophagus) Condition: stable Disposition: PACU Description of Procedure: The patient's placed on the endoscopy table lateral position. She received sedation. The gastroscope placed oropharynx passed in the esophagus into the stomach. The scope was then placed through the pylorus. The first and second portion of duodenum appeared normal. Scope was then brought back the antrum and this appeared minimally inflamed a biopsies performed. The scope was then retroflexed there was a small amount of liquid food in the stomach. There is evidence of polyps. A biopsy was performed. Scope was then brought back to the level of the GE junction. There was no evidence of a hiatal hernia. There did not appear to be any evidence of a stricture of the GE junction. Due to the patient's symptoms of intermittent dysphagia a 20 mm balloon was placed across the GE junction. The balloon was slid easily back and forth across the GE junction. There was no holdup of the balloon. The balloon was photograph of the GE junction showing space around the balloon. There was definitely no evidence of a GE junction stricture. At this point the balloon was withdrawn. The distal esophagus appeared minimally inflamed a biopsies performed. The proximal esophagus appeared normal. Scope was withdrawn for patient.
[2017-07-12 09:09] VITALS: BP 116/78; PULSE 79
== END 2017-07-12 09:52 | disposition home or self-care (01) ==
LOC: ORWHC2ENDO 07:53
PROVIDERS: ATTEND Surgery
DX: K29.50 Unspecified chronic gastritis without bleeding (principal); K31.7 Polyp of stomach and duodenum; K20.9 Esophagitis, unspecified; E11.43 Type 2 diabetes mellitus with diabetic autonomic (poly)neuropathy; K31.84 Gastroparesis; J45.909 Unspecified asthma, uncomplicated; I10 Essential (primary) hypertension; E07.9 Disorder of thyroid, unspecified; G35 Multiple sclerosis; E66.9 Obesity, unspecified; Z68.38 Body mass index [BMI] 38.0-38.9, adult; Z79.890 Hormone replacement therapy; Z79.4 Long term (current) use of insulin; Z79.891 Long term (current) use of opiate analgesic; Z79.899 Other long term (current) drug therapy; Z91.040 Latex allergy status; Z88.8 Allergy status to other drugs, medicaments and biological substances; Z91.048 Other nonmedicinal substance allergy status; Z98.51 Tubal ligation status; Z90.710 Acquired absence of both cervix and uterus
CPT/HCPCS: 88305; 43239; 43249; J2001; J2704; C1726; 43266

== ENCOUNTER 2017-07-22 17:48 | Observation (INO) | payer BC, MEDICARE ==
[2017-07-22] MEDS ORDERED: methylPREDNISolone SOD SUCCI 250 MG in SODIUM CHLORIDE 0.9% 100 ML IVPB STA (18:30)
--- NOTE | 2017-07-22 18:33 | ED ---
General Adult HPI - General Chief complaint: Back Pain/Injury Stated complaint: MS flare up Time Seen by Provider: 07/22/17 18:04 Source: patient, RN notes reviewed Mode of arrival: EMS Limitations: no limitations - History of Present Illness Initial comments: This is a 47-year-old female who presents to the emergency department with chief complaint of MS flareup. Patient states that she was diagnosed with MS in 2008. She states that she has flareups approximately every 6 months where she is admitted and receives high-dose IV steroids. Patient states that 2 days ago she began to experience bilateral leg spasms. She states that today she developed low back pain that is sharp and spastic. This started at approximately 3 PM this afternoon. States that the majority of the back pain is located on the right side of the low back. She denies any falls, injuries or trauma. She denies saddle paresthesias or loss of bladder or bowel function. She denies fevers or chills, chest pain or shortness breath, abdominal pain, nausea or vomiting. She does admit to having diarrhea for the past 3 days. Denies dysuria or hematuria. - Related Data Home Medications Medication Instructions Recorded Confirmed Albuterol Sulfate [Proair Hfa] 2 puff INHALATION RT-Q6H PRN 09/26/15 07/12/17 Atorvastatin [Lipitor] 10 mg PO DAILY 09/26/15 07/12/17 Diclofenac Sodium [Voltaren Gel] 4 gm TOPICAL DAILY PRN 09/26/15 07/12/17 Lubiprostone [Amitiza] 24 mcg PO BID 09/26/15 07/12/17 Phentermine HCl [Adipex-P] 37.5 mg PO QAM 09/26/15 07/12/17 Levothyroxine Sodium [Synthroid] 100 mcg PO QAM 02/24/16 07/12/17 Morphine Sulfate Ir [MSIR] 15 mg PO Q4H PRN 02/24/16 07/12/17 Dextromethorphan HBr/Quinidine 1 cap PO BID 06/22/16 07/12/17 [Nuedexta 20-10 mg Capsule] Morphine Pain Pump 7 mg EPIDURAL DAILY 06/22/16 07/12/17 metFORMIN HCL [Metformin HCl] 250 mg PO DAILY 08/31/16 07/12/17 DULoxetine HCL [Cymbalta] 60 mg PO QAM 01/10/17 07/12/17 Modafinil [Provigil] 400 mg PO DAILY 01/10/17 07/12/17 cloNIDine 0.1 MG/24HR PATCH 1 patch TRANSDERM MO 01/10/17 07/12/17 [Catapres-TTS] Butalb/Acetaminophen/Caffeine 1 cap PO AC-TID PRN 01/16/17 07/12/17 [Esgic 50-325-40 Capsule] Ipratropium-Albuterol Nebulize 3 ml INHALATION RT-QID PRN 01/16/17 07/12/17 [Duoneb 0.5 mg-3 mg/3 ml Soln] INSULIN LISPRO (HumaLOG) [humaLOG] See Protocol SQ ACHS PRN 01/19/17 07/12/17 Cholecalciferol [Vitamin D3] 1,000 unit PO MOWE 03/03/17 07/12/17 Metoclopramide [Reglan] 10 mg PO QID 03/03/17 07/12/17 Teriflunomide [Aubagio] 14 mg PO DAILY 03/03/17 07/12/17 Baclofen [Lioresal] 20 mg PO QID 04/26/17 07/12/17 tiZANidine HCL [Zanaflex] 2 mg PO QID 06/15/17 07/12/17 Scopolamine 1.5MG/72Hr Patch 1 patch TRANSDERM Q72H 07/07/17 07/12/17 [Transderm-Scop 1.5MG/72Hr Patch] Previous Rx's Medication Instructions Recorded Loperamide [Imodium] 2 mg PO QID PRN #30 cap 06/23/16 Montelukast [Singulair] 10 mg PO DAILY #30 tab 06/23/16 Omeprazole 40 mg PO DAILY #60 capsule. 07/12/17 Allergies Allergy/AdvReac Type Severity Reaction Status Date / Time adhesive Allergy Severe Rash/Hives Verified 07/22/17 17:56 adhesive tape Allergy Severe Rash/Hives Verified 07/22/17 17:56 fentanyl Allergy Severe Rash/Hives Verified 07/22/17 17:56 latex Allergy Severe Rash/Hives Verified 07/22/17 17:56 Review of Systems ROS Statement: Those systems with pertinent positive or pertinent negative responses have been documented in the HPI. ROS Other: All systems not noted in ROS Statement are negative. Past Medical History Past Medical History: Asthma, Diabetes Mellitus, Hypertension, Musculoskeletal Disorder, Neurologic Disorder, Thyroid Disorder Additional Past Medical History / Comment(s): MS, back pain, DEGENERATIVE DISC DISEASE History of Any Multi-Drug Resistant Organisms: None Reported Past Surgical History: Bladder Surgery, Hernia Repair, Hysterectomy, Orthopedic Surgery, Tubal Ligation Additional Past Surgical History / Comment(s): rhinoplasty, bladder suspension, breast sx, morphine pump , RT KNEE SCOPE, TUMMY TUCK, SCS DEVICE INSERTED AND REMOVED-DOES NOT HAVE T-11 IN SPINE. Past Anesthesia/Blood Transfusion Reactions: Motion Sickness, Postoperative Nausea & Vomiting (PONV) Past Psychological History: No Psychological Hx Reported Smoking Status: Never smoker - Past Family History Father Family Medical History: Hypertension Mother History Unknown: Yes Family Medical History: No Reported History, Unable to Obtain Additional Family Medical History / Comment(s): NO FAMILY HISTORY General Exam - General Exam Comments Initial Comments: General: Awake and alert, well-developed; in no apparent distress. Rocking back and forth and fidgeting. Appears uncomfortable. is at bedside. HEENT: Head atraumatic, normocephalic. Pupils are equal, round and reactive to light. Extraocular movements intact. Oropharynx moist without erythema or exudate. Neck: Supple. Normal ROM. Cardiovascular: Regular rate and rhythm. No murmurs, rubs or gallops. Chest symmetrical. Respiratory: Lungs clear to auscultation bilaterally. No wheezes, rales or rhonchi. Normal respiratory effort with no use of accessory muscles. Abdomen: Soft, non-tender, non-distended. No rigidity, rebound or guarding. Normal bowel sounds in all 4 quadrants. Musculoskeletal: Normal ROM, no tenderness bilateral upper and lower extremities. Weakness of bilateral upper and lower extremities. There is tenderness on palpation of the paraspinal muscles of the low back, specifically right side. Ambulating normally. Skin: [place], warm and dry without rashes or lesions. Neurological: Alert and oriented x3. CN II-XII grossly intact. Speech is fluent and answers are appropriate. No focal neuro deficits. Limitations: no limitations Course Vital Signs 07/22/17 17:53 Temperature 98.2 F Pulse Rate 105 H Respiratory 18 Rate Blood Pressure 163/93 O2 Sat by Pulse 96 Oximetry Medical Decision Making - Medical Decision Making This is a 47-year-old female who presents to the emergency department with chief complaint of acute MS flare up. Patient was diagnosed with MS in 2008. She states that she has flareups approximately every 6 months. She complains of leg spasms and low back pain. Denies any injuries or trauma. Vital signs are stable and she is in no acute distress. She was started on IV Solu-Medrol in the emergency department. Labs were obtained. CBC, CMP, coags and UA were unremarkable. Patient will be admitted to Dr. Sean Wynne with a consult to neurology, Dr. No. She was made aware of findings and plan and is in agreement for admission. All questions answered. - Lab Data Result diagrams: 07/22/17 18:55 07/22/17 19:36 Lab Results 07/22/17 07/22/17 07/22/17 Range/Units 18:55 19:36 19:36 WBC 9.0 (3.8-10.6) k/uL RBC 4.41 (3.80-5.40) m/uL Hgb 12.9 (11.4-16.0) gm/dL Hct 38.4 (34.0-46.0) % MCV 87.1 (80.0-100.0) fL MCH 29.3 (25.0-35.0) pg MCHC 33.7 (31.0-37.0) g/dL RDW 13.3 (11.5-15.5) % Plt Count 334 (150-450) k/uL Neutrophils % 83 % Lymphocytes % 11 % Monocytes % 2 % Eosinophils % 4 % Basophils % 0 % Neutrophils # 7.4 (1.3-7.7) k/uL Lymphocytes # 1.0 (1.0-4.8) k/uL Monocytes # 0.2 (0-1.0) k/uL Eosinophils # 0.4 (0-0.7) k/uL Basophils # 0.0 (0-0.2) k/uL PT 10.1 (9.0-12.0) sec INR 1.0 (<1.2) APTT 22.7 (22.0-30.0) sec Sodium 142 (137-145) mmol/L Potassium 3.8 (3.5-5.1) mmol/L Chloride 106 (98-107) mmol/L Carbon Dioxide 24 (22-30) mmol/L Anion Gap 12 mmol/L BUN 11 (7-17) mg/dL Creatinine 0.60 (0.52-1.04) mg/dL Est GFR (CKD-EPI)AfAm >90 (>60 ml/min/1.73 sqM) Est GFR (CKD-EPI)NonAf >90 (>60 ml/min/1.73 sqM) Glucose 150 H (74-99) mg/dL Calcium 10.0 (8.4-10.2) mg/dL Phosphorus 1.7 L (2.5-4.5) mg/dL Magnesium 1.7 (1.6-2.3) mg/dL Total Bilirubin 0.3 (0.2-1.3) mg/dL AST 40 H (14-36) U/L ALT 70 H (9-52) U/L Alkaline Phosphatase 88 (38-126) U/L Total Protein 6.1 L (6.3-8.2) g/dL Albumin 3.8 (3.5-5.0) g/dL Urine Color Urine Appearance (Clear) Urine pH (5.0-8.0) Ur Specific [place] (1.001-1.035) Urine Protein (Negative) Urine Glucose (UA) (Negative) Urine Ketones (Negative) Urine Blood (Negative) Urine Nitrite (Negative) Urine Bilirubin (Negative) Urine Urobilinogen (<2.0) mg/dL Ur Leukocyte Esterase (Negative) 07/22/17 Range/Units 20:30 WBC (3.8-10.6) k/uL RBC (3.80-5.40) m/uL Hgb (11.4-16.0) gm/dL Hct (34.0-46.0) % MCV (80.0-100.0) fL MCH (25.0-35.0) pg MCHC (31.0-37.0) g/dL RDW (11.5-15.5) % Plt Count (150-450) k/uL Neutrophils % % Lymphocytes % % Monocytes % % Eosinophils % % Basophils % % Neutrophils # (1.3-7.7) k/uL Lymphocytes # (1.0-4.8) k/uL Monocytes # (0-1.0) k/uL Eosinophils # (0-0.7) k/uL Basophils # (0-0.2) k/uL PT (9.0-12.0) sec INR (<1.2) APTT (22.0-30.0) sec Sodium (137-145) mmol/L Potassium (3.5-5.1) mmol/L Chloride (98-107) mmol/L Carbon Dioxide (22-30) mmol/L Anion Gap mmol/L BUN (7-17) mg/dL Creatinine (0.52-1.04) mg/dL Est GFR (CKD-EPI)AfAm (>60 ml/min/1.73 sqM) Est GFR (CKD-EPI)NonAf (>60 ml/min/1.73 sqM) Glucose (74-99) mg/dL Calcium (8.4-10.2) mg/dL Phosphorus (2.5-4.5) mg/dL Magnesium (1.6-2.3) mg/dL Total Bilirubin (0.2-1.3) mg/dL AST (14-36) U/L ALT (9-52) U/L Alkaline Phosphatase (38-126) U/L Total Protein (6.3-8.2) g/dL Albumin (3.5-5.0) g/dL Urine Color Yellow Urine Appearance Clear (Clear) Urine pH 8.5 H (5.0-8.0) Ur Specific [place] 1.020 (1.001-1.035) Urine Protein Trace H (Negative) Urine Glucose (UA) Negative (Negative) Urine Ketones Negative (Negative) Urine Blood Negative (Negative) Urine Nitrite Negative (Negative) Urine Bilirubin Negative (Negative) Urine Urobilinogen <2.0 (<2.0) mg/dL Ur Leukocyte Esterase Negative (Negative) Disposition Clinical Impression: Exacerbation of multiple sclerosis Disposition: ADMITTED IP TO THIS HOSP Condition: Stable Is patient prescribed a controlled substance at d/c from ED?: No Referrals: None,Stated [Primary Care Provider] - 1-2 days Time of Disposition: 20:53
[2017-07-22 19:03] LABS: Basophils % (A) 0 %; Eosinophils # (A) 0.4 k/uL (0-0.7); Eosinophils % (A) 4 %; HCT 38.4 % (34.0-46.0); HGB 12.9 gm/dL (11.4-16.0); Lymphocytes % (A) 11 %; MCH 29.3 pg (25.0-35.0); MCHC 33.7 g/dL (31.0-37.0); MCV 87.1 fL (80.0-100.0); Mean Platelet Volume 7.5; Monocytes # (A) 0.2 k/uL (0-1.0); Monocytes % (A) 2 %; Neutrophils # (A) 7.4 k/uL (1.3-7.7); Neutrophils % (A) 83 %; Platelet Count 334 k/uL (150-450); RBC 4.41 m/uL (3.80-5.40); RDW 13.3 % (11.5-15.5)
[2017-07-22] MEDS ORDERED: NALOXONE 0.4 MG/ML 1 ML VIAL IV PRN (19:51)
[2017-07-22] MEDS ORDERED: ACETAMINOPHEN TAB 325 MG TAB PO PRN (19:51)
[2017-07-22] MEDS ORDERED: Acetaminophen-Codeine 300-30mg TAB PO PRN (19:51)
[2017-07-22] MEDS ORDERED: MORPHINE ORAL SOLN 10 MG/5 ML CUP PO PRN (19:51)
[2017-07-22 20:14] LABS: Partial Thromboplastin Time 22.7 sec (22.0-30.0); Prothrombin Time 10.1 sec (9.0-12.0)
[2017-07-22 20:32] LABS: ALT 70 U/L (9-52); AST 40 U/L (14-36); Albumin 3.8 g/dL (3.5-5.0); Alkaline Phosphatase 88 U/L (38-126); Anion Gap 12 mmol/L; Blood Urea Nitrogen 11 mg/dL (7-17); Carbon Dioxide 24 mmol/L (22-30); Chloride 106 mmol/L (98-107); Glucose 150 mg/dL (74-99); Magnesium 1.7 mg/dL (1.6-2.3); Phosphorus 1.7 mg/dL (2.5-4.5); Potassium 3.8 mmol/L (3.5-5.1); Sodium 142 mmol/L (137-145); Total Bilirubin 0.3 mg/dL (0.2-1.3); Total Protein 6.1 g/dL (6.3-8.2)
[2017-07-22 20:45] LABS: Appearance,Urine Clear (Clear); Bilirubin,Urine Negative (Negative); Blood,Urine Negative (Negative); Color,Urine Yellow; Glucose,Urine (UA) Negative (Negative); Ketones,Urine Negative (Negative); Leukocyte Esterase,Urine Negative (Negative); Nitrite,Urine Negative (Negative); PH, Urine 8.5 (5.0-8.0); Protein,Urine Trace (Negative); Urobilinogen,Urine <2.0 mg/dL (<2.0)
[2017-07-22] MEDS ORDERED: ACETAMINOPHEN TAB 500 MG TAB PO STA (20:48)
[2017-07-22] MEDS ORDERED: IBUPROFEN 600 MG TAB PO STA (20:48)
[2017-07-22] MEDS ORDERED: BACLOFEN 10 MG TAB PO STA (20:50)
[2017-07-22] MEDS ORDERED: SODIUM CHLORIDE 0.9% 500 ML IV SCH (21:00)
[2017-07-22] MEDS: SODIUM CHLORIDE 0.9% 1,000 ML IV SCH (21:34)
[2017-07-22] MEDS ORDERED: BUTALB PO PRN (22:15)
[2017-07-22] MEDS ORDERED: ALBUTEROL INHALER 60 PUFF/8 GM INHALER INHALATION PRN (22:15)
[2017-07-22] MEDS ORDERED: CAFFEINE PO PRN (22:15)
[2017-07-22] MEDS ORDERED: IPRATROPIUM-ALBUTEROL 3 ML NEB INHALATION PRN (22:15)
[2017-07-22] MEDS ORDERED: ACETAMINOPHEN PO PRN (22:15)
[2017-07-22 22:58] LABS: Glucose,Whole Blood 177 mg/dL (75-99)
[2017-07-22] MEDS: QUINIDINE PO SCH (23:16)
[2017-07-22] MEDS: DEXTROMETHORPHAN HBR PO SCH (23:16)
[2017-07-22] MEDS: NON-FORMULARY DRUG (Lubiprostone [Amitiza] 24 MCG) PO SCH (23:16)
[2017-07-22] MEDS: METOCLOPRAMIDE 10 MG TAB PO SCH (23:17)
[2017-07-22] MEDS: MORPHINE SULFATE IR 15 MG TABLET PO PRN (23:17)
[2017-07-22] MEDS: diphenhydrAMINE 50 MG/ML 1 ML VIAL IVP SCH (23:39)
[2017-07-22] MEDS: INSULIN ASPART 100 UNIT/ML 1 ML 10 ML VIAL SQ SCH (23:40)
[2017-07-23] MEDS: MORPHINE SULFATE IR 15 MG TABLET PO PRN ×2 (03:12→12:39)
[2017-07-23] MEDS: diphenhydrAMINE 50 MG/ML 1 ML VIAL IVP SCH ×4 (05:11→23:50)
[2017-07-23] MEDS: LEVOTHYROXINE 100 MCG TAB PO SCH (05:13)
[2017-07-23 07:38] LABS: Glucose,Whole Blood 209 mg/dL (75-99)
[2017-07-23] MEDS: DEXTROMETHORPHAN HBR PO SCH ×2 (08:01→21:49)
[2017-07-23] MEDS: QUINIDINE PO SCH ×2 (08:01→21:49)
[2017-07-23] MEDS: NON-FORMULARY DRUG (Lubiprostone [Amitiza] 24 MCG) PO SCH ×2 (08:01→21:50)
[2017-07-23] MEDS: MORPHINE EPIDURAL SCH (08:02)
[2017-07-23] MEDS: NON-FORMULARY DRUG (Phentermine Hcl [Adipex-P] 37.5 MG) PO SCH (08:03)
[2017-07-23] MEDS: PANTOPRAZOLE 40 MG TABLET PO SCH (08:04)
[2017-07-23] MEDS: METOCLOPRAMIDE 10 MG TAB PO SCH ×4 (08:04→21:48)
[2017-07-23] MEDS: metFORMIN 500 MG TAB PO SCH (08:04)
[2017-07-23] MEDS: ATORVASTATIN 10 MG TAB PO SCH (08:04)
[2017-07-23] MEDS: DULoxetine HCL 60 MG CAPSULE.DR PO SCH (08:04)
[2017-07-23] MEDS: MONTELUKAST 10 MG TAB PO SCH (08:05)
[2017-07-23] MEDS: INSULIN ASPART 100 UNIT/ML 1 ML 10 ML VIAL SQ SCH ×4 (08:05→21:47)
[2017-07-23] MEDS: NON-FORMULARY DRUG (Teriflunomide [Aubagio] 14 MG) PO SCH (08:06)
[2017-07-23] MEDS: BACLOFEN 10 MG TAB PO SCH ×4 (08:07→21:48)
[2017-07-23] MEDS ORDERED: methylPREDNISolone SOD SUCCI 125 MG/2 ML VIAL IVPB SCH (08:30)
[2017-07-23] MEDS: NALTREXONE 4.5 MG PO SCH (08:53)
[2017-07-23] MEDS: SCOPOLAMINE 1.5MG/72HR PATCH TRANSDERM SCH (08:58)
[2017-07-23] MEDS ORDERED: NALTREXONE HCL 50 MG TAB PO SCH (09:00)
[2017-07-23] MEDS: SODIUM CHLORIDE 0.9% 1,000 ML IV SCH ×2 (09:20→23:48)
[2017-07-23] MEDS: BUTALB/APAP/CAFF 50-325-40MG TAB PO PRN (09:58)
[2017-07-23] MEDS: methylPREDNISolone SOD SUCCI 250 MG in SODIUM CHLORIDE 0.9% 100 ML IVPB SCH ×4 (09:58→23:48)
[2017-07-23 12:30] LABS: Glucose,Whole Blood 204 mg/dL (75-99)
--- NOTE | 2017-07-23 15:19 | P.CNNES ---
History of Present Illness Consult date: 07/23/17 Requesting physician: Greta Macias Reason for Consult: MS Exacerbation Chief complaint: Lower extremity and back pain History of Present Illness: Neurology is counseled in a 47-year-old female presented to the emergency room with complaint of MS exacerbation. Patient was diagnosed in 2008. Patient does have intermittent flareups of approximate 6 months between flareups. Patient does have good history of IV steroid response for treatment of MS exacerbation. Patient is a known clinic patient of our practice and does have significant MS history along with multiple other comorbidities. Patient developed low back pain that was sharp and spastic as well as bilateral leg spasms. Complaints started approximately 3 PM yesterday. Majority of the back pain is right low back. Patient is positive for nausea at this time. Denies any falls, injury or trauma. Denies saddle paresthesia or loss of bladder or bowel function. Denies fever chills, shortness of breath chest pain, abdominal pain. patient is extremely aware of her disease process as well as her treatment and success with different treatment options. Patient is requesting IV steroid infusion at this time. Patient is alert and oriented 3, resting in bed in no acute distress. Review of Systems systems not noted in HPI or negative Past Medical History Past Medical History: Asthma, Diabetes Mellitus, Hypertension, Musculoskeletal Disorder, Neurologic Disorder, Thyroid Disorder Additional Past Medical History / Comment(s): MS, back pain, DEGENERATIVE DISC DISEASE History of Any Multi-Drug Resistant Organisms: None Reported Past Surgical History: Bladder Surgery, Hernia Repair, Hysterectomy, Orthopedic Surgery, Tubal Ligation Additional Past Surgical History / Comment(s): rhinoplasty, bladder suspension, breast sx, morphine pump , RT KNEE SCOPE, TUMMY TUCK, SCS DEVICE INSERTED AND REMOVED-DOES NOT HAVE T-11 IN SPINE. Past Anesthesia/Blood Transfusion Reactions: Motion Sickness, Postoperative Nausea & Vomiting (PONV) Past Psychological History: No Psychological Hx Reported Smoking Status: Never smoker Past Alcohol Use History: None Reported Past Drug Use History: None Reported - Past Family History Father Family Medical History: Hypertension Mother History Unknown: Yes Family Medical History: No Reported History, Unable to Obtain Additional Family Medical History / Comment(s): NO FAMILY HISTORY Medications and Allergies Home Medications Medication Instructions Recorded Confirmed Type Albuterol Sulfate [Proair Hfa] 2 puff INHALATION RT-Q6H PRN 09/26/15 07/23/17 History Atorvastatin [Lipitor] 10 mg PO DAILY 09/26/15 07/23/17 History Diclofenac Sodium [Voltaren Gel] 4 gm TOPICAL DAILY PRN 09/26/15 07/23/17 History Lubiprostone [Amitiza] 24 mcg PO BID 09/26/15 07/23/17 History Phentermine HCl [Adipex-P] 37.5 mg PO QAM 09/26/15 07/23/17 History Levothyroxine Sodium [Synthroid] 100 mcg PO QAM 02/24/16 07/23/17 History Morphine Sulfate Ir [MSIR] 15 mg PO Q4H PRN 02/24/16 07/23/17 History Dextromethorphan HBr/Quinidine 1 cap PO BID 06/22/16 07/23/17 History [Nuedexta 20-10 mg Capsule] Morphine Pain Pump 8.35 mg EPIDURAL DAILY 06/22/16 07/23/17 History Loperamide [Imodium] 2 mg PO QID PRN #30 cap 06/23/16 07/23/17 Rx Montelukast [Singulair] 10 mg PO DAILY #30 tab 06/23/16 07/23/17 Rx metFORMIN HCL [Metformin HCl] 250 mg PO DAILY 08/31/16 07/23/17 History DULoxetine HCL [Cymbalta] 60 mg PO QAM 01/10/17 07/23/17 History cloNIDine 0.1 MG/24HR PATCH 1 patch TRANSDERM MO 01/10/17 07/23/17 History [Catapres-TTS] Butalb/Acetaminophen/Caffeine 1 cap PO AC-TID PRN 01/16/17 07/23/17 History [Esgic 50-325-40 Capsule] Ipratropium-Albuterol Nebulize 3 ml INHALATION RT-QID PRN 01/16/17 07/23/17 History [Duoneb 0.5 mg-3 mg/3 ml Soln] INSULIN LISPRO (HumaLOG) [humaLOG] See Protocol SQ ACHS PRN 01/19/17 07/23/17 History Cholecalciferol [Vitamin D3] 1,000 unit PO MOWE 03/03/17 07/23/17 History Metoclopramide [Reglan] 10 mg PO QID 03/03/17 07/23/17 History Teriflunomide [Aubagio] 14 mg PO DAILY 03/03/17 07/23/17 History Baclofen [Lioresal] 20 mg PO QID 04/26/17 07/23/17 History tiZANidine HCL [Zanaflex] 2 mg PO QID 06/15/17 07/23/17 History Scopolamine 1.5MG/72Hr Patch 1 patch TRANSDERM Q72H 07/07/17 07/23/17 History [Transderm-Scop 1.5MG/72Hr Patch] Omeprazole 40 mg PO DAILY #60 capsule. 07/12/17 07/23/17 Rx Allergies Allergy/AdvReac Type Severity Reaction Status Date / Time adhesive Allergy Severe Rash/Hives Verified 07/23/17 12:56 adhesive tape Allergy Severe Rash/Hives Verified 07/23/17 12:56 fentanyl Allergy Severe Rash/Hives Verified 07/23/17 12:56 latex Allergy Severe Rash/Hives Verified 07/23/17 12:56 Physical Examination - Vital Signs Vital Signs: Vital Signs Temp Pulse Pulse Resp BP BP Pulse Ox 07/23/17 07:47 95 07/23/17 05:40 98.9 F 94 16 112/70 93 L 07/22/17 23:00 98.9 F 88 16 119/77 92 L 07/22/17 21:15 97.4 F L 90 18 140/87 99 07/22/17 17:53 98.2 F 105 H 18 163/93 96 Intake and Output 07/23/17 07/23/17 07/23/17 06:59 14:59 22:59 Intake Total 240 Balance 240 Intake: Oral 240 Other: Voiding Method Toilet # Voids 1 2 Weight 113.398 kg General appearance: Alert & oriented x3, no apparent distress. Head: Atraumatic, normocephalic, normal inspection Eyes: Well appearance, PERRLA, EOMI. Ear, nose and throat: Normal exam, mucous membranes moist Neck: Normal inspection, absent tenderness, lymphadenopathy. Respiratory: No increased work of breathing Cardiovascular: Regular rate, rhythm GI/abdominal: nontender nondistended Extremities: full range of motion in all 4 extremities, lower extremities present with some acute weakness as noted below. Integumentary: patient does have right gluteal scar which is noteworthy for IT pump placement location site. Patient pump is managed by our group. Provider is actively involved in patient's treatment. Neurological: cranial nerves II through XII intact no lateralizing weakness no seizure activity noted on physical exam no pronator drift and no nystagmus. Left lower extremity: 4-/5 Right lower extremity: 4-/5 Left upper extremity: 4+/5 Right upper extremity: 4+/5 Sensation: equal in all 4 extremities to light touch Psychological: Mood and affect appropriate for setting. Results - Laboratory Findings CBC and BMP: 07/22/17 18:55 07/22/17 19:36 Abnormal Lab Findings: Abnormal Labs 07/22/17 07/22/17 07/22/17 19:36 20:30 22:56 Glucose 150 H POC Glucose (mg/dL) 177 H Phosphorus 1.7 L AST 40 H ALT 70 H Total Protein 6.1 L Urine pH 8.5 H Urine Protein Trace H 07/23/17 07/23/17 07:09 11:57 Glucose POC Glucose (mg/dL) 209 H 204 H Phosphorus AST ALT Total Protein Urine pH Urine Protein Assessment and Plan (1) Exacerbation of multiple sclerosis Current Visit: Yes Status: Acute Code(s): G35 - MULTIPLE SCLEROSIS SNOMED Code(s): 427388645 (2) Low back ache Current Visit: Yes Status: Acute Code(s): M54.5 - LOW BACK PAIN SNOMED Code(s): 804911112 (3) Lower extremity weakness Current Visit: Yes Status: Acute Code(s): R29.898 - OTH SYMPTOMS AND SIGNS INVOLVING THE MUSCULOSKELETAL SYSTEM SNOMED Code(s): 414943445 Plan: Patient's constellation of symptoms are consistent with the patient's MS exacerbation pattern. Patient also confirms that her complaints and symptoms are consistent with previous MS exacerbations. Laboratory blood work blood work is unremarkable. Provider has treated patient in the clinic and is aware the patient does respond well to IV steroid infusion. I am going to prescribe IV Solu-Medrol 250 mg IV piggyback every 6 hours along with bedside blood glucose monitoring every 6 hours and sliding scale insulin protocol for steroid use. Patient already has Reglan prescribed for nausea. Patient does complain of some nausea at this time. If after IV steroid infusion, patient's symptoms are not decreased to a tolerable level, we'll repeat imaging of the brain as well as cervical spine for any new or changed underlying etiology related to patient's MS. patient does have intrathecal pump at this time. No reprogramming was performed on the pump today. We will attempt to treat the patient with IV medication as well as oral medication at this time. Discussed treatment and testing options with the patient agreed to risks, benefits and alternatives. Patient agreed to proceed as noted above. status: Neurology will continue to follow provide updates as needed or warranted. I have discussed the plan of care with the physician prior to implementation and he agrees with the plan as implemented.
--- NOTE | 2017-07-23 17:04 | HP ---
HISTORY AND PHYSICAL CHIEF COMPLAINT: 47-year-old white female, MS exacerbation, admitted with bilateral leg weakness, diagnosed with MS in 2008. She has had flare-ups probably every 6 months. Uses IV steroids. Bilateral leg spasms, sharp spastic sharp pain at which time she came to the ER and was admitted to the hospital with MS exacerbation. Denies saddle paresthesias or loss of bladder or bowel function. Denies fever, chills, abdominal pain, nausea, vomiting. Has had diarrhea over the past 3 days. Denies dysuria or hematuria. MEDICATIONS: ProAir HFA, Lipitor 10 mg daily, Voltaren gel 4 g b.i.d. and Amitiza 25 mcg daily. Adipex-P, Synthroid, MS-IR, Nuedexta metformin is 250 daily, Cymbalta 60 daily, Provigil 400 daily, Catapres TTS patch, capsules, DuoNeb, Humalog, vitamin D3, raglan, Lioresal, Zanaflex, scopolamine. PAST MEDICAL HISTORY: Asthma, diabetes mellitus, hypertension, musculoskeletal disorder, MS exacerbation, hypothyroidism, rhinoplasty, bladder suspension, morphine pump, SCS device inserted. FAMILY HISTORY: Father hypertension. Mother unable to obtain. PHYSICAL: Vital signs stable. Afebrile. Cardiovascular S1, S2. LUNGS: Transmitted upper sounds. Hematology negative Homans. Psych: Fair mood and affect. NEUROLOGIC: Alert and oriented x3. Vascular: Normal dorsalis pedis, posterior tibial pulses. Ophthalmological: Pupils equal, round, react to light and accommodation. GI: Soft and nontender. Vascular: Normal dorsalis pedis, posterior tibial pulse. Ophthalmologic: Pupils equal, round, react to light and accommodation. NEUROLOGIC: Alert and oriented x3. Musculoskeletal generalized weakness 3 out of 5 all 4 extremities. Temp 98.2, pulse 105, respiratory rate 18, blood pressure 163/83, O2 96% on room air. LABORATORY DATA: White count is 9, hemoglobin 12.9. ASSESSMENT: 1. Status post exacerbation of multiple sclerosis. 2. Hypothyroidism. 3. Hypertension. 4. Asthma. 5. Diabetes mellitus. 6. Hypertension. 7. Neurologic disorder. 8. Hypothyroidism. IV Solu-Medrol 60 q.8, continue current home medications. Await neurology consult. MMODL / IJN: [id number] /
[2017-07-23 17:06] LABS: Glucose,Whole Blood 228 mg/dL (75-99)
[2017-07-23 19:12] LABS: Hemoglobin A1C 5.8 % (4.0-6.0)
[2017-07-23] MEDS: LOPERAMIDE 2 MG CAP PO PRN (20:11)
[2017-07-23 20:59] LABS: Glucose,Whole Blood 263 mg/dL (75-99)
[2017-07-23] MEDS ORDERED: DICLOFENAC SODIUM GEL 100 GM TUBE TOPICAL PRN (22:17)
[2017-07-23] MEDS ORDERED: INSULIN ASPART 100 UNIT/ML 1 ML 10 ML VIAL SQ SCH (23:23)
[2017-07-24] MEDS: MORPHINE SULFATE IR 15 MG TABLET PO PRN ×5 (00:05→17:02)
[2017-07-24 02:20] LABS: Glucose,Whole Blood 233 mg/dL (75-99)
[2017-07-24] MEDS: BUTALB/APAP/CAFF 50-325-40MG TAB PO PRN ×2 (05:01→12:40)
[2017-07-24] MEDS: LOPERAMIDE 2 MG CAP PO PRN ×3 (05:09→22:21)
[2017-07-24] MEDS: LEVOTHYROXINE 100 MCG TAB PO SCH (05:09)
[2017-07-24] MEDS: methylPREDNISolone SOD SUCCI 250 MG in SODIUM CHLORIDE 0.9% 100 ML IVPB SCH ×4 (06:17→23:20)
[2017-07-24] MEDS: diphenhydrAMINE 50 MG/ML 1 ML VIAL IVP SCH ×4 (06:17→23:20)
[2017-07-24 06:24] LABS: Glucose,Whole Blood 201 mg/dL (75-99)
[2017-07-24] MEDS: INSULIN ASPART 100 UNIT/ML 1 ML 10 ML VIAL SQ SCH ×3 (06:28→17:22)
[2017-07-24] MEDS: BACLOFEN 10 MG TAB PO SCH ×4 (08:12→20:54)
[2017-07-24] MEDS: NALTREXONE 4.5 MG PO SCH (08:12)
[2017-07-24] MEDS: NON-FORMULARY DRUG (Teriflunomide [Aubagio] 14 MG) PO SCH (08:12)
[2017-07-24] MEDS: METOCLOPRAMIDE 10 MG TAB PO SCH ×4 (08:13→20:54)
[2017-07-24] MEDS: metFORMIN 500 MG TAB PO SCH (08:13)
[2017-07-24] MEDS: DULoxetine HCL 60 MG CAPSULE.DR PO SCH (08:13)
[2017-07-24] MEDS: CHOLECALCIFEROL 1,000 UNIT TAB PO SCH (08:13)
[2017-07-24] MEDS: ATORVASTATIN 10 MG TAB PO SCH (08:13)
[2017-07-24] MEDS: PANTOPRAZOLE 40 MG TABLET PO SCH (08:13)
[2017-07-24] MEDS: MONTELUKAST 10 MG TAB PO SCH (08:13)
[2017-07-24] MEDS: QUINIDINE PO SCH ×2 (08:14→20:53)
[2017-07-24] MEDS: DEXTROMETHORPHAN HBR PO SCH ×2 (08:14→20:53)
[2017-07-24] MEDS: NON-FORMULARY DRUG (Lubiprostone [Amitiza] 24 MCG) PO SCH ×2 (08:15→20:53)
[2017-07-24] MEDS: NON-FORMULARY DRUG (Phentermine Hcl [Adipex-P] 37.5 MG) PO SCH (08:15)
[2017-07-24] MEDS: MORPHINE EPIDURAL SCH (08:15)
[2017-07-24] MEDS ORDERED: SCOPOLAMINE 1.5MG/72HR PATCH TRANSDERM SCH (09:00)
[2017-07-24] MEDS ORDERED: cloNIDine 0.1 MG/24HR PATCH 1 PATCH PATCH TRANSDERM SCH (09:00)
[2017-07-24 09:04] LABS: ALT 46 U/L (9-52); AST 18 U/L (14-36); Albumin 3.5 g/dL (3.5-5.0); Alkaline Phosphatase 65 U/L (38-126); Anion Gap 12 mmol/L; Blood Urea Nitrogen 14 mg/dL (7-17); Calcium 8.8 mg/dL (8.4-10.2); Carbon Dioxide 24 mmol/L (22-30); Chloride 110 mmol/L (98-107); Glucose 169 mg/dL (74-99); Potassium 3.9 mmol/L (3.5-5.1); Sodium 146 mmol/L (137-145); Total Bilirubin 0.3 mg/dL (0.2-1.3); Total Protein 5.7 g/dL (6.3-8.2)
[2017-07-24 12:22] LABS: Glucose,Whole Blood 157 mg/dL (75-99)
[2017-07-24] MEDS: SODIUM CHLORIDE 0.9% 1,000 ML IV SCH (12:51)
--- NOTE | 2017-07-24 14:49 | US ---
EXAMINATION TYPE: US liver DATE OF EXAM: 07/24/2017 COMPARISON: CT, US CLINICAL HISTORY: Davide colored stool, abdominal pain; acute MS exacerbation; on Morphine for MS and d egenerative disc disease, gastroparesis per patient EXAM MEASUREMENTS: Liver Length: 16.1 cm Gallbladder Wall: 0.2 cm CBD: 0.4 cm Right Kidney: 10.7 x 6.3 x 4.2 cm Pancreas: hyperechoic, mid and tail obscured by overlying bowel gas Liver: Hyperechoic echotexture with poor visualization of the portal triads and right hemidiaphragm. This finding limits evaluation for underlying hepatic masses. A right lobe cystic mass anterior to g allbladder within segment IVb is seen measuring 0.6 x 0.6 x 0.5cm with increased through transmissio n. Gallbladder: wnl Evidence for sonographic Small's sign: No CBD: wnl Right Kidney: No hydronephrosis or masses seen IMPRESSION: 1. Sonographic findings most compatible with hepatic steatosis appearing moderate in degree. 2. Simple appearing subcentimeter hepatic cyst. 3. No sonographic evidence of acute cholecystitis or cholelithiasis.
--- NOTE | 2017-07-24 16:48 | P.GSCN ---
History of Present Illness Consult date: 07/24/17 Reason for Consult: Intermittent dysphagia History of present illness: 's is a 47-year-old female well-known to myself. Patient was admitted to the hospital for exacerbation of her MS. She's had known history of intermittent dysphagia due to gastroparesis. The patient is morbidly obese. Her BMI is 38. She is awaiting authorization for sleeve gastrectomy. Past Medical History Past Medical History: Asthma, Diabetes Mellitus, Hypertension, Musculoskeletal Disorder, Neurologic Disorder, Thyroid Disorder Additional Past Medical History / Comment(s): MS, back pain, DEGENERATIVE DISC DISEASE History of Any Multi-Drug Resistant Organisms: None Reported Past Surgical History: Bladder Surgery, Hernia Repair, Hysterectomy, Orthopedic Surgery, Tubal Ligation Additional Past Surgical History / Comment(s): rhinoplasty, bladder suspension, breast sx, morphine pump , RT KNEE SCOPE, TUMMY TUCK, SCS DEVICE INSERTED AND REMOVED-DOES NOT HAVE T-11 IN SPINE. Past Anesthesia/Blood Transfusion Reactions: Motion Sickness, Postoperative Nausea & Vomiting (PONV) Past Psychological History: No Psychological Hx Reported Smoking Status: Never smoker Past Alcohol Use History: None Reported Past Drug Use History: None Reported - Past Family History Father Family Medical History: Hypertension Mother History Unknown: Yes Family Medical History: No Reported History, Unable to Obtain Additional Family Medical History / Comment(s): NO FAMILY HISTORY Medications and Allergies Home Medications Medication Instructions Recorded Confirmed Type Albuterol Sulfate [Proair Hfa] 2 puff INHALATION RT-Q6H PRN 09/26/15 07/23/17 History Atorvastatin [Lipitor] 10 mg PO DAILY 09/26/15 07/23/17 History Diclofenac Sodium [Voltaren Gel] 4 gm TOPICAL DAILY PRN 09/26/15 07/23/17 History Lubiprostone [Amitiza] 24 mcg PO BID 09/26/15 07/23/17 History Phentermine HCl [Adipex-P] 37.5 mg PO QAM 09/26/15 07/23/17 History Levothyroxine Sodium [Synthroid] 100 mcg PO QAM 02/24/16 07/23/17 History Morphine Sulfate Ir [MSIR] 15 mg PO Q4H PRN 02/24/16 07/23/17 History Dextromethorphan HBr/Quinidine 1 cap PO BID 06/22/16 07/23/17 History [Nuedexta 20-10 mg Capsule] Morphine Pain Pump 8.35 mg EPIDURAL DAILY 06/22/16 07/23/17 History Loperamide [Imodium] 2 mg PO QID PRN #30 cap 06/23/16 07/23/17 Rx Montelukast [Singulair] 10 mg PO DAILY #30 tab 06/23/16 07/23/17 Rx metFORMIN HCL [Metformin HCl] 250 mg PO DAILY 08/31/16 07/23/17 History DULoxetine HCL [Cymbalta] 60 mg PO QAM 01/10/17 07/23/17 History cloNIDine 0.1 MG/24HR PATCH 1 patch TRANSDERM MO 01/10/17 07/23/17 History [Catapres-TTS] Butalb/Acetaminophen/Caffeine 1 cap PO AC-TID PRN 01/16/17 07/23/17 History [Esgic 50-325-40 Capsule] Ipratropium-Albuterol Nebulize 3 ml INHALATION RT-QID PRN 01/16/17 07/23/17 History [Duoneb 0.5 mg-3 mg/3 ml Soln] INSULIN LISPRO (HumaLOG) [humaLOG] See Protocol SQ ACHS PRN 01/19/17 07/23/17 History Cholecalciferol [Vitamin D3] 1,000 unit PO MOWE 03/03/17 07/23/17 History Metoclopramide [Reglan] 10 mg PO QID 03/03/17 07/23/17 History Teriflunomide [Aubagio] 14 mg PO DAILY 03/03/17 07/23/17 History Baclofen [Lioresal] 20 mg PO QID 04/26/17 07/23/17 History tiZANidine HCL [Zanaflex] 2 mg PO QID 06/15/17 07/23/17 History Scopolamine 1.5MG/72Hr Patch 1 patch TRANSDERM Q72H 07/07/17 07/23/17 History [Transderm-Scop 1.5MG/72Hr Patch] Omeprazole 40 mg PO DAILY #60 capsule. 07/12/17 07/23/17 Rx Allergies Allergy/AdvReac Type Severity Reaction Status Date / Time adhesive Allergy Severe Rash/Hives Verified 07/23/17 12:56 adhesive tape Allergy Severe Rash/Hives Verified 07/23/17 12:56 fentanyl Allergy Severe Rash/Hives Verified 07/23/17 12:56 latex Allergy Severe Rash/Hives Verified 07/23/17 12:56 Surgical - Exam Vital Signs Temp Pulse Resp BP Pulse Ox 98.2 F 105 H 18 163/93 96 07/22/17 17:53 07/22/17 17:53 07/22/17 17:53 07/22/17 17:53 07/22/17 17:53 - General well developed, no distress - Eyes PERRL - ENT normal pinna - Neck no masses - Respiratory normal expansion - Cardiovascular Rhythm: regular - Abdomen Abdomen: soft, non tender Results - Labs 07/22/17 18:55 07/24/17 08:34 Abnormal Lab Results - Last 24 Hours (Table) 07/23/17 07/23/17 07/24/17 Range/Units 16:58 20:58 02:19 Sodium (137-145) mmol/L Chloride (98-107) mmol/L Glucose (74-99) mg/dL POC Glucose (mg/dL) 228 H 263 H 233 H (75-99) mg/dL Total Protein (6.3-8.2) g/dL 07/24/17 07/24/17 07/24/17 Range/Units 06:23 08:34 12:16 Sodium 146 H (137-145) mmol/L Chloride 110 H (98-107) mmol/L Glucose 169 H (74-99) mg/dL POC Glucose (mg/dL) 201 H 157 H (75-99) mg/dL Total Protein 5.7 L (6.3-8.2) g/dL Diabetes panel 07/22/17 07/24/17 Range/Units 18:55 08:34 Sodium 146 H (137-145) mmol/L Potassium 3.9 (3.5-5.1) mmol/L Chloride 110 H (98-107) mmol/L Carbon Dioxide 24 (22-30) mmol/L BUN 14 (7-17) mg/dL Creatinine 0.64 (0.52-1.04) mg/dL Glucose 169 H (74-99) mg/dL Hemoglobin A1c 5.8 (4.0-6.0) % Calcium 8.8 (8.4-10.2) mg/dL AST 18 (14-36) U/L ALT 46 (9-52) U/L Alkaline Phosphatase 65 (38-126) U/L Total Protein 5.7 L (6.3-8.2) g/dL Albumin 3.5 (3.5-5.0) g/dL Calcium panel 07/24/17 Range/Units 08:34 Calcium 8.8 (8.4-10.2) mg/dL Albumin 3.5 (3.5-5.0) g/dL Pituitary panel 07/24/17 Range/Units 08:34 Sodium 146 H (137-145) mmol/L Potassium 3.9 (3.5-5.1) mmol/L Chloride 110 H (98-107) mmol/L Carbon Dioxide 24 (22-30) mmol/L BUN 14 (7-17) mg/dL Creatinine 0.64 (0.52-1.04) mg/dL Glucose 169 H (74-99) mg/dL Calcium 8.8 (8.4-10.2) mg/dL Adrenal panel 07/24/17 Range/Units 08:34 Sodium 146 H (137-145) mmol/L Potassium 3.9 (3.5-5.1) mmol/L Chloride 110 H (98-107) mmol/L Carbon Dioxide 24 (22-30) mmol/L BUN 14 (7-17) mg/dL Creatinine 0.64 (0.52-1.04) mg/dL Glucose 169 H (74-99) mg/dL Calcium 8.8 (8.4-10.2) mg/dL Total Bilirubin 0.3 (0.2-1.3) mg/dL AST 18 (14-36) U/L ALT 46 (9-52) U/L Alkaline Phosphatase 65 (38-126) U/L Total Protein 5.7 L (6.3-8.2) g/dL Albumin 3.5 (3.5-5.0) g/dL Assessment and Plan Assessment: The patient currently does not have any significant dysphagia. She will be managed conservatively. We will await insurance authorization for her sleeve gastrectomy.
[2017-07-24 17:08] LABS: Glucose,Whole Blood 185 mg/dL (75-99)
[2017-07-24 17:20] LABS: Hepatitis A Antibody IgM Non-Reactive (Non-Reactive); Hepatitis B Core IgM Non-Reactive (Non-Reactive)
--- NOTE | 2017-07-24 18:07 | P.PN ---
Subjective Progress Note Date: 07/24/17 Principal diagnosis: MS exacerbation interval update: (07/24/17): Rounding time 0605 hrs. Neurology is following on a 47-year-old female with known MS. Patient is known in our practice and treated in the clinic. Patient has extensive history of MS and IV steroid infusion for exacerbation. Patient complained of bilateral lower extremity weakness at admission via the ED. Patient was placed on IV Solu -Medrol to 50 mg every 6 hours with glucose monitoring, sliding scale insulin and Reglan. Patient stated she did improve from an exacerbation level of 10 out of 10 to approximately a 7 out of 10 and starting IV steroid infusion. Patient is known to take up to 3-5 days of IV steroid infusion in the outpatient infusion center when needing IV steroid for exacerbation. She reports no new neurological deficits or complaints related to her MS or any other neurological condition. Patient was found resting in bed, alert and oriented 3 in no acute distress. Objective - Vital Signs Vital signs: Vital Signs Temp 98.8 F 07/24/17 14:36 Pulse 69 07/24/17 14:36 Resp 16 07/24/17 14:36 BP 123/64 07/24/17 14:36 Pulse Ox 92 L 07/24/17 14:36 Intake & Output 07/23/17 07/24/17 07/24/17 18:59 06:59 18:59 Intake Total 240 850 200 Balance 240 850 200 Intake: Intake, IV Titration 850 Amount Sodium Chloride 0.9% 1, 600 000 ml @ 75 mls/hr IV . [id number] [facility] Rx#:[id number] methylPREDNISolone SOD 250 SUCCI 250 mg In Sodium Chloride 0.9% 100 ml @ 100 mls/hr IVPB Q6HR [facility] Rx#:[id number] Oral 240 200 Other: Voiding Method Toilet Toilet # Voids 2 2 2 # Bowel Movements 1 0 - Exam General appearance: Alert & oriented x3, no apparent distress. Head: Atraumatic, normocephalic, normal inspection Eyes: Well appearance, PERRLA, EOMI. Ear, nose and throat: Normal exam, mucous membranes moist Neck: Normal inspection, absent tenderness, lymphadenopathy. Respiratory: No increased work of breathing Cardiovascular: Regular rate, rhythm GI/abdominal: no guarding Extremities: range of motion all 4 extremities Neurological: cranial nerves II through XII intact no lateralizing weakness no seizure activity noted on physical exam no pronator drift and no nystagmus. Left lower extremity: 4 minus/5 Right lower extremity: 4 minus /5 Left upper extremity: 4+/5 Right upper extremity: 4+/5 Sensation: resident off 4 extremities Psychological: anxious - Labs CBC & Chem 7: 07/22/17 18:55 07/24/17 08:34 Labs: Abnormal Lab Results - Last 24 Hours (Table) 07/23/17 07/24/17 07/24/17 Range/Units 20:58 02:19 06:23 Sodium (137-145) mmol/L Chloride (98-107) mmol/L Glucose (74-99) mg/dL POC Glucose (mg/dL) 263 H 233 H 201 H (75-99) mg/dL Total Protein (6.3-8.2) g/dL 07/24/17 07/24/17 07/24/17 Range/Units 08:34 12:16 17:05 Sodium 146 H (137-145) mmol/L Chloride 110 H (98-107) mmol/L Glucose 169 H (74-99) mg/dL POC Glucose (mg/dL) 157 H 185 H (75-99) mg/dL Total Protein 5.7 L (6.3-8.2) g/dL Assessment and Plan (1) Exacerbation of multiple sclerosis Current Visit: Yes Status: Acute Code(s): G35 - MULTIPLE SCLEROSIS SNOMED Code(s): 587606103 (2) Low back ache Current Visit: Yes Status: Acute Code(s): M54.5 - LOW BACK PAIN SNOMED Code(s): 800677346 (3) Lower extremity weakness Current Visit: Yes Status: Acute Code(s): R29.898 - OTH SYMPTOMS AND SIGNS INVOLVING THE MUSCULOSKELETAL SYSTEM SNOMED Code(s): 097753050 Plan: Patient's constellation of symptoms are consistent with the patient's MS exacerbation pattern. Patient also confirms that her complaints and symptoms are consistent with previous MS exacerbations. Laboratory blood work blood work is unremarkable. Provider has treated patient in the clinic and is aware the patient does respond well to IV steroid infusion. I am going to continue IV Solu-Medrol 250 mg IV piggyback every 6 hours along with bedside blood glucose monitoring every 6 hours and sliding scale insulin protocol for steroid use. Patient already has Reglan prescribed for nausea. Patient does complain of some nausea at this time. if IV steroid infusion does not decrease patient's symptoms to a tolerable level , we'll repeat imaging of the brain as well as cervical spine for any new or changed underlying etiology related to patient's MS. Patient does have intrathecal pump at this time. No reprogramming was performed on the pump today. We will attempt to treat the patient with IV medication as well as oral medication at this time. Discussed treatment and testing options with the patient agreed to risks, benefits and alternatives. Patient agreed to proceed as noted above. Patient is known to take 3-5 days of IV steroid infusion 1000 mg daily in the outpatient setting in the infusion center. This is consistent with her previous MS exacerbation pattern of treatment. continue treatment as noted above. status: Neurology will continue to follow on an as-needed basis. The patient is discharged, advised patient to contact our office for follow-up in the office at the next available date. I have discussed the plan of care with the physician prior to implementation and he agrees with the plan as implemented.
[2017-07-25 00:27] LABS: Glucose,Whole Blood 198 mg/dL (75-99)
[2017-07-25] MEDS: INSULIN ASPART 100 UNIT/ML 1 ML 10 ML VIAL SQ SCH ×4 (00:54→18:11)
[2017-07-25] MEDS: diphenhydrAMINE 50 MG/ML 1 ML VIAL IVP SCH ×4 (06:07→23:03)
[2017-07-25] MEDS: SODIUM CHLORIDE 0.9% 1,000 ML IV SCH ×2 (06:07→17:03)
[2017-07-25] MEDS: LEVOTHYROXINE 100 MCG TAB PO SCH (06:08)
[2017-07-25] MEDS: methylPREDNISolone SOD SUCCI 250 MG in SODIUM CHLORIDE 0.9% 100 ML IVPB SCH ×4 (06:08→23:03)
[2017-07-25] MEDS: BUTALB/APAP/CAFF 50-325-40MG TAB PO PRN ×2 (06:08→17:02)
[2017-07-25 06:09] LABS: Glucose,Whole Blood 205 mg/dL (75-99)
[2017-07-25] MEDS: MORPHINE SULFATE IR 15 MG TABLET PO PRN ×4 (06:09→23:03)
[2017-07-25] MEDS: BACLOFEN 10 MG TAB PO SCH ×4 (08:27→21:13)
[2017-07-25] MEDS: NON-FORMULARY DRUG (Teriflunomide [Aubagio] 14 MG) PO SCH (08:27)
[2017-07-25] MEDS: METOCLOPRAMIDE 10 MG TAB PO SCH ×4 (08:27→21:13)
[2017-07-25] MEDS: MONTELUKAST 10 MG TAB PO SCH (08:27)
[2017-07-25] MEDS: ATORVASTATIN 10 MG TAB PO SCH (08:27)
[2017-07-25] MEDS: DULoxetine HCL 60 MG CAPSULE.DR PO SCH (08:27)
[2017-07-25] MEDS: PANTOPRAZOLE 40 MG TABLET PO SCH (08:27)
[2017-07-25] MEDS: DEXTROMETHORPHAN HBR PO SCH ×2 (08:28→20:48)
[2017-07-25] MEDS: NON-FORMULARY DRUG (Lubiprostone [Amitiza] 24 MCG) PO SCH ×2 (08:28→20:48)
[2017-07-25] MEDS: QUINIDINE PO SCH ×2 (08:28→20:48)
[2017-07-25] MEDS: NALTREXONE 4.5 MG PO SCH (08:28)
[2017-07-25] MEDS: metFORMIN 500 MG TAB PO SCH (08:28)
[2017-07-25] MEDS: MORPHINE EPIDURAL SCH (08:28)
[2017-07-25] MEDS: NON-FORMULARY DRUG (Phentermine Hcl [Adipex-P] 37.5 MG) PO SCH (08:28)
[2017-07-25] MEDS ORDERED: RX INFO: IV CONTRAST WAS GIVEN 1 EACH MISC MISCELLANE PRN (08:53)
--- NOTE | 2017-07-25 08:59 | PN ---
PROGRESS NOTE SUBJECTIVE: A 47-year-old white female with MS exacerbation, placed on 250 mg IV q.6 hours. Close monitoring for MS exacerbation. Her leg pain is sharp, shooting. Pain and numbness are improving. Temperature 98.8, pulse 65, respiratory rate 16-18, blood pressure 130/20, 3.4, O2 92%. CARDIOVASCULAR: S1, S2. LUNGS: Clear. GI: Soft. MUSCULOSKELETAL: 5/5 strength x4 extremities. Cranial nerves are intact. HEMATOLOGY: Negative Homans. PSYCH: Fair mood and affect. Labs reviewed. She will continue on IV steroids. Accu-Chek protocol. Continue current treatment. Waiting for Neurology to clear her for discharge. MMODL / IJN: [id number] /
--- NOTE | 2017-07-25 10:25 | CT ---
EXAMINATION TYPE: CT lumbar spine w con DATE OF EXAM: 07/25/2017 COMPARISON: CT abdomen and pelvis May 28, 2017 HISTORY: Herniated disc per order. 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 CT DLP: 999 mGycm Automated exposure control for dose reduction was used. CONTRAST: CT scan of the lumbar is performed with IV Contrast, patient injected with 100 mL of Isovue 300. Enhanced CT of the lumbar spine was performed. Bone and soft tissue window settings are submitted as well as coronal and sagittal reconstructions. 5 lumbar-type vertebra are redemonstrated. Lumbar spine shows satisfactory alignment without evidence of acute fracture or dislocation. There is mild disc space narrowing L4-L5 level redemonstrated. Schuyler tebral body heights and disc space heights otherwise are maintained. Spinal canal is grossly preserve d. No large disc herniations are seen. Evaluation for small disc herniations is suboptimal due to art ifact possibly related to patient's large body habitus. There appear to be posterior disc herniation L5-S1 level on recent CT sagittal image 63 not as well seen on today's study. Axial images show the T12-L1, L1-L2, and L2-L3 levels to appear within normal limits. Axial images at L3-L4 level show mild facet arthropathy bilaterally and mild broad disc bulge minimal ly effacing anterior thecal sac on axial image 40, bilateral neural foramina are patent. Axial images at L4-L5 level show mild to moderate facet degenerative changes bilaterally along with c entral disc protrusion minimally effacing anterior thecal sac. There is mild bilateral anterior infer ior neural foraminal narrowing at this level identified. Axial images at L5-S1 level show moderate facet degenerative changes bilaterally. Previously visualiz ed focal right paracentral disc protrusion axial image 57 that is likely effacing central right S1 ne rve is redemonstrated seen best axial image 59 on today's study. Spinal canal is preserved. Bilateral neural foramina are patent. No suspicious retroperitoneal findings are seen. IMPRESSION: Suboptimal study with increased artifact degradation. Persistent degenerative changes mid to lower piotr mbar spine are redemonstrated with no made of prominent disc herniation L5-S1 level believed to be ef facing central right S1 nerve again seen. Clinical correlation advised.
[2017-07-25 12:04] LABS: Glucose,Whole Blood 219 mg/dL (75-99)
[2017-07-25 18:19] LABS: Glucose,Whole Blood 211 mg/dL (75-99)
[2017-07-25] MEDS: LOPERAMIDE 2 MG CAP PO PRN (21:13)
[2017-07-26 00:01] LABS: Glucose,Whole Blood 219 mg/dL (75-99)
[2017-07-26] MEDS: INSULIN ASPART 100 UNIT/ML 1 ML 10 ML VIAL SQ SCH ×2 (00:02→06:04)
[2017-07-26] MEDS: LOPERAMIDE 2 MG CAP PO PRN ×2 (02:36→08:02)
[2017-07-26] MEDS: SODIUM CHLORIDE 0.9% 1,000 ML IV SCH (03:54)
[2017-07-26 06:02] LABS: Glucose,Whole Blood 181 mg/dL (75-99)
[2017-07-26] MEDS: MORPHINE SULFATE IR 15 MG TABLET PO PRN (06:03)
[2017-07-26] MEDS: methylPREDNISolone SOD SUCCI 250 MG in SODIUM CHLORIDE 0.9% 100 ML IVPB SCH (06:03)
[2017-07-26] MEDS: LEVOTHYROXINE 100 MCG TAB PO SCH (06:03)
[2017-07-26] MEDS: diphenhydrAMINE 50 MG/ML 1 ML VIAL IVP SCH (06:04)
[2017-07-26] MEDS: PANTOPRAZOLE 40 MG TABLET PO SCH (08:01)
[2017-07-26] MEDS: METOCLOPRAMIDE 10 MG TAB PO SCH (08:01)
[2017-07-26] MEDS: ATORVASTATIN 10 MG TAB PO SCH (08:02)
[2017-07-26] MEDS: SCOPOLAMINE 1.5MG/72HR PATCH TRANSDERM SCH (08:02)
[2017-07-26] MEDS: CHOLECALCIFEROL 1,000 UNIT TAB PO SCH (08:02)
[2017-07-26] MEDS: BACLOFEN 10 MG TAB PO SCH (08:02)
[2017-07-26] MEDS: DEXTROMETHORPHAN HBR PO SCH (08:03)
[2017-07-26] MEDS: QUINIDINE PO SCH (08:03)
[2017-07-26] MEDS: DULoxetine HCL 60 MG CAPSULE.DR PO SCH (08:03)
[2017-07-26] MEDS: MONTELUKAST 10 MG TAB PO SCH (08:03)
[2017-07-26] MEDS: NON-FORMULARY DRUG (Phentermine Hcl [Adipex-P] 37.5 MG) PO SCH (08:04)
[2017-07-26] MEDS: NON-FORMULARY DRUG (Lubiprostone [Amitiza] 24 MCG) PO SCH (08:04)
[2017-07-26] MEDS: NALTREXONE 4.5 MG PO SCH (08:04)
[2017-07-26] MEDS: NON-FORMULARY DRUG (Teriflunomide [Aubagio] 14 MG) PO SCH (08:05)
[2017-07-26 08:32] VITALS: BP 147/85; PULSE 59; RESP 16; TEMP 97
--- NOTE | 2017-07-26 08:40 | P.CON ---
Consult Note - . Consult date: 07/26/17 Assessment/Plan:: Ms. Braun is a 47-year-old female admitted with intractable back pain radiating to bilateral lower extremities. Patient has history of MS that is treated by Dr. No with neurologic medications and an intrathecal pain pump , and her symptoms have been diagnosed as MS exacerbation and she is receiving IV steroids. Pain service consulted for epidural steroid injection today. Patient does not use blood thinners. I spoke to the patient regarding this procedure, and explained the risks, benefits, and alternatives thoroughly. Although the patient initially signed consent for the procedure, she later decided that she did not want it and preferred to follow up with Dr. No as an outpatient for further evaluation. Will sign off, please call back with questions.
[2017-07-26] MEDS: MORPHINE EPIDURAL SCH (09:31)
--- NOTE | 2017-07-26 13:41 | DS ---
DISCHARGE SUMMARY DISCHARGE MEDICATIONS: 1. Adipex-P one q. day. 2. Lipitor 10 q. day. 3. ProAir HFA 2 puffs q.4 hours p.r.n. 4. Prednisone taper 60 mg for 4 days, 40 mg for 4 days, 20 mg for 4 days, 10 mg for 4 days. 5. Voltaren gel 4 grams topically p.r.n. 6. Pain pump per pain physician. 7. Synthroid 100 mcg daily. 8. Nuedexta 20 to 10 b.i.d. 9. Singulair 10 mg daily. 10.Imodium p.r.n. 11.Metformin 250 daily. 12.Catapres TTS patch 0.1 every 7 days. 13.Cymbalta 60 mg daily. 14.DuoNeb q.i.d. 15.Esgic 50-325-40 one capsule q.8 hours p.r.n. 16.Humalog a.c. and at bedtime protocol. 17.Vitamin D3 daily. 18.Teriflunomide which is Aubagio 14 mg daily. 19.Reglan 10 mg q.i.d. 20.Lioresal 20 mg q.i.d. 21.Zanaflex 2 mg q.i.d. 22.Scopolamine patch q.72 hours p.r.n. 23.Omeprazole 40 mg daily. CONDITION: Stable. PROGNOSIS: Guarded. Ambulate as tolerated. DISCHARGE DIAGNOSES: 1. Acute exacerbation of multiple sclerosis. 2. Acute lumbar disc herniation. 3. Lumbar degenerative disc disease. 4. Gait imbalance. 5. Lower extremity weakness. 6. History of multiple sclerosis. 7. History of gastroparesis. 8. History of diabetes mellitus. 9. History of irritable bowel syndrome. 10.History of severe chronic pain syndrome. CAT scan was done while she was in the hospital, showed lumbar disc herniation. Neurology saw her, placed her on IV Solu-Medrol for multiple sclerosis exacerbation. Patient is slowly improving. [facility] were consulted for possible epidural injection, which patient did not have. The patient continued with current treatment. Will follow up as an outpatient after cleared by Neurology to go home and [facility] were not going to do lumbar epidural. Follow up with outpatient PT, OT and pain physician in [place]. MMODL / IJN: [id number] /
== END 2017-07-26 12:13 | disposition home or self-care (01) ==
LOC: EC 17:48 → 4MS4W 19:57
PROVIDERS: ADMIT Family Medicine; ATTEND Family Medicine
DX: G35 Multiple sclerosis (principal); M51.27 Other intervertebral disc displacement, lumbosacral region; M51.36 Other intervertebral disc degeneration, lumbar region; G89.4 Chronic pain syndrome; E11.43 Type 2 diabetes mellitus with diabetic autonomic (poly)neuropathy; K31.84 Gastroparesis; J45.909 Unspecified asthma, uncomplicated; I10 Essential (primary) hypertension; K58.0 Irritable bowel syndrome with diarrhea; E03.9 Hypothyroidism, unspecified; E66.01 Morbid (severe) obesity due to excess calories; Z68.38 Body mass index [BMI] 38.0-38.9, adult; Z79.84 Long term (current) use of oral hypoglycemic drugs; Z97.8 Presence of other specified devices; Z79.891 Long term (current) use of opiate analgesic; Z79.899 Other long term (current) drug therapy; Z91.040 Latex allergy status; Z88.5 Allergy status to narcotic agent; Z91.048 Other nonmedicinal substance allergy status; Z82.49 Family history of ischemic heart disease and other diseases of the circulatory system
CPT/HCPCS: 99285 ×2; 96365 ×2; 96366 ×5; 96376 ×4; 96375; 36415; 94760; 80053 ×2; 80074; 83735; 84100; 85025; 85610; 85730; 81003; 83036; 76705; 72132; G0378 ×5; J1200 ×5; J2930 ×5; Q9967

== ENCOUNTER → 2017-08-07 | Outpatient (CLI) | payer BC, MEDICARE | LOC: BARWHC3 14:12 | PROVIDERS: ATTEND Surgery | DX: Z53.9 Procedure and treatment not carried out, unspecified reason (principal) ==

== ENCOUNTER → 2017-09-19 | Outpatient (CLI) | payer BC, MEDICARE ==
[2017-09-19 17:43] LABS: Basophils # (A) 0.1 k/uL (0-0.2); Basophils % (A) 1 %; Eosinophils # (A) 0.2 k/uL (0-0.7); Eosinophils % (A) 4 %; HCT 41.4 % (34.0-46.0); HGB 13.7 gm/dL (11.4-16.0); Lymphocytes # (A) 2.5 k/uL (1.0-4.8); Lymphocytes % (A) 41 %; MCHC 33.1 g/dL (31.0-37.0); MCV 87.8 fL (80.0-100.0); Mean Platelet Volume 7.5; Monocytes # (A) 0.4 k/uL (0-1.0); Monocytes % (A) 6 %; Neutrophils # (A) 2.9 k/uL (1.3-7.7); Neutrophils % (A) 48 %; Platelet Count 403 k/uL (150-450); RBC 4.71 m/uL (3.80-5.40); RDW 13.4 % (11.5-15.5); WBC 6.1 k/uL (3.8-10.6)
[2017-09-19 17:56] LABS: ALT 66 U/L (9-52); AST 46 U/L (14-36); Albumin 3.7 g/dL (3.5-5.0); Alkaline Phosphatase 81 U/L (38-126); Anion Gap 9 mmol/L; Blood Urea Nitrogen 13 mg/dL (7-17); Calcium 8.9 mg/dL (8.4-10.2); Carbon Dioxide 22 mmol/L (22-30); Chloride 109 mmol/L (98-107); Glucose 193 mg/dL (74-99); Sodium 140 mmol/L (137-145); Total Bilirubin 0.3 mg/dL (0.2-1.3); Total Protein 5.9 g/dL (6.3-8.2)
[2017-09-19 18:12] LABS: T4, Free (Free Thyroxine) 0.65 ng/dL (0.78-2.19)
[2017-09-20 01:53] LABS: Vitamin D 25 Hydroxy 22.1 ng/mL (30.0-100.0)
[2017-09-20 02:02] LABS: Folate, Serum 10.2 ng/mL
[2017-09-20 02:05] LABS: Hepatitis A Antibody IgM Non-Reactive (Non-Reactive); Hepatitis B Core IgM Non-Reactive (Non-Reactive)
[2017-09-20 02:42] LABS: HIV AB P24 Non-Reactive (Non-Reactive); HIV P24 AG Non-Reactive (Non-Reactive)
[2017-09-20 02:47] LABS: Hemoglobin A1C 6.6 % (4.0-6.0)
[2017-09-21 05:26] LABS: Vitamin B1 46 ug/L (38-122)
== END | disposition home or self-care (01) ==
LOC: LABWHC1 17:19
PROVIDERS: ATTEND Psychiatry & Neurology Neurology
DX: G35 Multiple sclerosis (principal)
CPT/HCPCS: 36415; 80053; 80074; 82306; 82607; 82746; 83036; 84207; 84425; 84439; 84443; 84481; 84591; 85025; 87390

== ENCOUNTER → 2017-10-23 | Outpatient (CLI) | payer BC, MEDICARE ==
--- NOTE | 2017-10-24 09:11 | MR ---
EXAMINATION TYPE: MR brain/cspine wo/w DATE OF EXAM: 10/24/2017 COMPARISON: NONE HISTORY: Neck pain, headaches, BUE weakness, MS CONTRAST: 11 mL Gadavist TECHNIQUE: T1 sagittal and coronal, T2 sagittal, and gradient echo axial views of the cervical spine are submitted. FINDINGS: The cranial cervical junction is preserved. There is no abnormal signal seen within the sp inal cord or paraspinal soft tissues. At C2-3 there is no disc herniation, canal stenosis, or foraminal encroachment. At C3-4 there is no disc herniation, canal stenosis, or foraminal encroachment. At C4-5 there is no disc herniation, canal stenosis, or foraminal encroachment. At C5-6 there is no disc herniation, canal stenosis, or foraminal encroachment. At C6-7 there is no disc herniation, canal stenosis, or foraminal encroachment. At C7-T1 there is no disc herniation, canal stenosis, or foraminal encroachment. IMPRESSION: 1. Normal MRI cervical spine. MRI of the brain with and without contrast EXAM DATE: 10/24/2017 HISTORY: MS TECHNIQUE: T1-weighted sagittal, T2, FLAIR, and diffusion axial, postcontrast T1 axial and coronal vi ews of the brain are submitted. CONTRAST: 11 mL Gadavist FINDINGS: There is no evidence of acute ischemia. The ventricles, basal cisterns, and sulci overlying the co nvexities are consistent with the patient's age. There is no mass effect or enhancing mass. Craniocervical junction maintained. Sella turcica has a normal appearance. No evidence of cerebellopo ntine angle mass. Basilar artery somewhat diminutive in size. Changes of chronic sinusitis noted. WHITE MATTER: Artifact in the posterior fossa is noted. There is a 5 mm focus of abnormal signal within the right cerebellar hemisphere and a 2 mm area of ab normal signal within the left parietal white matter. No enhancing lesions. No callosal lesions. IMPRESSION: 1. No acute intracranial process. There are 2 5 mm or less white matter lesions with no evidence of enhancement. Findings are nonspecific.
== END | disposition home or self-care (01) ==
LOC: RADMRIMAIN 19:57
PROVIDERS: ATTEND Psychiatry & Neurology Neurology
DX: M54.2 Cervicalgia (principal); R90.82 White matter disease, unspecified; G35 Multiple sclerosis; Z88.5 Allergy status to narcotic agent; Z91.048 Other nonmedicinal substance allergy status; Z91.040 Latex allergy status
CPT/HCPCS: 70553; 72156; A9581

== ENCOUNTER → 2017-10-24 | Outpatient (CLI) | payer BC, MEDICARE | END | disposition home or self-care (01) | LOC: RADMRIMAIN 20:05 | PROVIDERS: ATTEND Psychiatry & Neurology Neurology | DX: Z53.9 Procedure and treatment not carried out, unspecified reason (principal) ==

== ENCOUNTER 2017-12-15 20:16 | Observation (INO) | payer BC, MEDICARE ==
--- NOTE | 2017-12-15 21:08 | ED ---
General Adult HPI - General Chief complaint: Recheck/Abnormal Lab/Rx Stated complaint: HTN Time Seen by Provider: 12/15/17 21:08 Source: patient Mode of arrival: ambulatory Limitations: no limitations - History of Present Illness Initial comments: Peyton is a 47-year-old female with past medical history most significant for multiple sclerosis and chronic migraines who presents to emergency department today for evaluation of palpitations. Patient reports that approximately 2 weeks ago she began a new infusion therapy for her MS, she states after starting this therapy she began experiencing headache and palpitations. She followed up with her primary care physician 7 days after initiating therapy and was advised to come to the ER however she decided not to at that time and she wanted to pursue the second dose of the medication. Patient had her second dose of the medication today and followed up with her neurologist who noted that she was tachycardic and hypertensive. Patient was complaining of persistent headache as well as exacerbation of her MS symptoms including feeling some mental confusion, unsteadiness on her feet and generalized malaise. The patient's neurologist agreed she was likely having a flare of her MS, this could be related to having been taken off all medications for 1 month prior to starting this new medication, however he advised that she come to the ER for evaluation of her palpitations and hypertension. Patient reports she's had palpitations intermittently for approximately 2 weeks. These are not associated with any shortness of breath or difficulty breathing. She has had intermittent episodes of diaphoresis but they are not exertional. Patient's physical activity is limited by her MS and chronic back pain. She states she is able to walk approximately 15 minutes but then has severe back pain or leg spasms and has to rest. This is unchanged recently. Patient has no personal cardiac history, no history of DVT or PE in the past. She has used albuterol in the past. She does report that her brother in his sleep in his mid 20s and this was attributed to an acute cardiac event though he had no predisposing cardiac condition she was aware of. Patient is a nonsmoker, she's not on any estrogen supplementation, she's had no recent immobilizations or other risk factors for DVT. - Related Data Home Medications Medication Instructions Recorded Confirmed Albuterol Sulfate [Proair Hfa] 2 puff INHALATION RT-Q6H PRN 09/26/15 12/15/17 Atorvastatin [Lipitor] 10 mg PO DAILY 09/26/15 12/15/17 Diclofenac Sodium [Voltaren Gel] 4 gm TOPICAL DAILY PRN 09/26/15 12/15/17 Phentermine HCl [Adipex-P] 37.5 mg PO QAM 09/26/15 12/15/17 Levothyroxine Sodium [Synthroid] 100 mcg PO QAM 02/24/16 12/15/17 Dextromethorphan HBr/Quinidine 1 cap PO BID 06/22/16 12/15/17 [Nuedexta 20-10 mg Capsule] Morphine Pain Pump 8.35 mg EPIDURAL DAILY 06/22/16 12/15/17 metFORMIN HCL [Metformin HCl] 250 mg PO DAILY 08/31/16 12/15/17 DULoxetine HCL [Cymbalta] 60 mg PO QAM 01/10/17 12/15/17 Butalb/Acetaminophen/Caffeine 1 cap PO AC-TID PRN 01/16/17 12/15/17 [Esgic 50-325-40 Capsule] Ipratropium-Albuterol Nebulize 3 ml INHALATION RT-QID PRN 01/16/17 12/15/17 [Duoneb 0.5 mg-3 mg/3 ml Soln] INSULIN LISPRO (HumaLOG) [humaLOG] See Protocol SQ ACHS PRN 01/19/17 12/15/17 Cholecalciferol [Vitamin D3] 1,000 unit PO MOWE 03/03/17 12/15/17 Metoclopramide [Reglan] 10 mg PO QID 03/03/17 12/15/17 Baclofen [Lioresal] 20 mg PO QID 04/26/17 12/15/17 tiZANidine HCL [Zanaflex] 2 mg PO QID 06/15/17 12/15/17 Scopolamine 1.5MG/72Hr Patch 1 patch TRANSDERM Q72H 07/07/17 12/15/17 [Transderm-Scop 1.5MG/72Hr Patch] rOPINIRole HCL [Requip] 1 mg PO TID 10/30/17 12/15/17 Ketorolac [Toradol] 10 mg PO TID 12/15/17 12/15/17 Previous Rx's Medication Instructions Recorded Loperamide [Imodium] 2 mg PO QID PRN #30 cap 06/23/16 Montelukast [Singulair] 10 mg PO DAILY #30 tab 06/23/16 Omeprazole 40 mg PO DAILY #60 capsule. 07/12/17 Allergies Allergy/AdvReac Type Severity Reaction Status Date / Time adhesive Allergy Severe Rash/Hives Verified 12/15/17 20:26 adhesive tape Allergy Severe Rash/Hives Verified 12/15/17 20:26 fentanyl Allergy Severe Rash/Hives Verified 12/15/17 20:26 latex Allergy Severe Rash/Hives Verified 12/15/17 20:26 Review of Systems ROS Statement: Those systems with pertinent positive or pertinent negative responses have been documented in the HPI. ROS Other: All systems not noted in ROS Statement are negative. Past Medical History Past Medical History: Asthma, Diabetes Mellitus, Hypertension, Musculoskeletal Disorder, Neurologic Disorder, Thyroid Disorder Additional Past Medical History / Comment(s): MS, back pain, DEGENERATIVE DISC DISEASE History of Any Multi-Drug Resistant Organisms: None Reported Past Surgical History: Bladder Surgery, Hernia Repair, Hysterectomy, Orthopedic Surgery, Tubal Ligation Additional Past Surgical History / Comment(s): rhinoplasty, bladder suspension, breast sx, morphine pump , RT KNEE SCOPE, TUMMY TUCK, SCS DEVICE INSERTED AND REMOVED-DOES NOT HAVE T-11 IN SPINE. Past Anesthesia/Blood Transfusion Reactions: Motion Sickness, Postoperative Nausea & Vomiting (PONV) Past Psychological History: No Psychological Hx Reported Smoking Status: Never smoker Past Alcohol Use History: None Reported Past Drug Use History: None Reported - Past Family History Father Family Medical History: Hypertension Mother History Unknown: Yes Family Medical History: No Reported History, Unable to Obtain Additional Family Medical History / Comment(s): NO FAMILY HISTORY General Exam - General Exam Comments Initial Comments: GENERAL: Patient is well-developed and well-nourished. Patient is nontoxic and well- hydrated and appears quite anxious, her legs are shaking which she attributes to her restless leg. HENT: Normocephalic, Atraumatic. Neck is soft and supple. No significant lymphadenopathy is noted. Oropharynx is clear. Moist mucous membranes. Neck has full range of motion without eliciting any pain. EYES: The sclera were anicteric and conjunctiva were pink and moist. Extraocular movements were intact and pupils were equal round and reactive to light. Eyelids were unremarkable. PULMONARY: Unlabored respirations. Good breath sounds bilaterally. No audible rales rhonchi or wheezing was noted. CARDIOVASCULAR: Tachycardic, regular without any murmurs rubs or gallops ABDOMEN: Soft and nontender with normal bowel sounds. SKIN: Skin is clear with no lesions or rashes and otherwise unremarkable. NEUROLOGIC: Patient is alert and oriented x3. Cranial nerves II through XII are grossly intact. Normal strength in bilateral upper and lower extremities MUSCULOSKELETAL: Normal extremities with adequate strength and full range of motion. No lower extremity swelling or edema. No calf tenderness. LYMPHATICS: No significant lymphadenopathy is noted PSYCHIATRIC: Anxious Limitations: no limitations Limitations: no limitations Course Vital Signs 12/15/17 12/15/17 12/15/17 20:21 21:06 21:52 Temperature 98.8 F Pulse Rate 130 H 119 H Respiratory 20 20 Rate Blood Pressure 148/105 151/102 O2 Sat by Pulse 98 96 Oximetry 12/15/17 12/15/17 12/15/17 22:28 23:17 23:32 Temperature Pulse Rate 113 H 116 H 103 H Respiratory 18 18 18 Rate Blood Pressure 120/60 154/104 153/94 O2 Sat by Pulse 95 97 Oximetry 12/15/17 12/16/17 23:48 00:47 Temperature Pulse Rate 108 H Respiratory Rate Blood Pressure 163/115 148/93 O2 Sat by Pulse 96 Oximetry Medical Decision Making - Medical Decision Making Patient was seen and evaluated, history is obtained from patient and review of medical record A short with a history of MS was taken off of her medication for approximately month and started a new medication approximately 2 weeks ago, had her second infusion earlier today, has persistent headache and palpitations and was advised come to the ER for evaluation as well as treatment of a MS exacerbation Medications ordered for headache Cardiac workup was ordered EKG obtained at 2032, rate is 127, rhythm is sinus tachycardia, there is normal axis, there are normal intervals, IN 128, QRS 66, QTC is 459, there is a wandering baseline but no acute ST elevations or depressions no evidence of acute ischemia or infarction. Troponin and d-dimer were negative CBC and BMP with no significant abnormalities TSH within normal limits Patient's HR improved to low 100s while resting Labs and EKG findings were discussed with patient who expresses understanding and relief, however she does not feel well enough to go home and does feel she requires treatment for her MS exacerbation. Review of previous admissions reveals patient is typically treated with 250mg Solu-medrol Q6 - first dose ordered in ER Patient care discussed with patients PCP Dr. Recio who accepts admission with consult to neurology placed - Lab Data Result diagrams: 12/15/17 21:47 12/15/17 21:47 Lab Results 12/15/17 12/15/17 12/15/17 Range/Units 21:47 21:47 21:47 WBC 11.6 H (3.8-10.6) k/uL RBC 4.59 (3.80-5.40) m/uL Hgb 13.1 (11.4-16.0) gm/dL Hct 40.2 (34.0-46.0) % MCV 87.5 (80.0-100.0) fL MCH 28.5 (25.0-35.0) pg MCHC 32.6 (31.0-37.0) g/dL RDW 13.4 (11.5-15.5) % Plt Count 308 (150-450) k/uL Neutrophils % 90 % Lymphocytes % 6 % Monocytes % 3 % Eosinophils % 1 % Basophils % 0 % Neutrophils # 10.5 H (1.3-7.7) k/uL Lymphocytes # 0.7 L (1.0-4.8) k/uL Monocytes # 0.3 (0-1.0) k/uL Eosinophils # 0.1 (0-0.7) k/uL Basophils # 0.0 (0-0.2) k/uL PT (9.0-12.0) sec INR (<1.2) APTT (22.0-30.0) sec D-Dimer (<0.60) mg/L FEU Sodium 141 (137-145) mmol/L Potassium 4.3 (3.5-5.1) mmol/L Chloride 110 H (98-107) mmol/L Carbon Dioxide 21 L (22-30) mmol/L Anion Gap 10 mmol/L BUN 15 (7-17) mg/dL Creatinine 0.58 (0.52-1.04) mg/dL Est GFR (CKD-EPI)AfAm >90 (>60 ml/min/1.73 sqM) Est GFR (CKD-EPI)NonAf >90 (>60 ml/min/1.73 sqM) Glucose 179 H (74-99) mg/dL Calcium 9.8 (8.4-10.2) mg/dL Magnesium 1.7 (1.6-2.3) mg/dL Total Bilirubin 0.3 (0.2-1.3) mg/dL AST 22 (14-36) U/L ALT 28 (9-52) U/L Alkaline Phosphatase 68 (38-126) U/L Total Creatine Kinase 63 (30-135) U/L CK-MB (CK-2) 0.3 (0.0-2.4) ng/mL CK-MB (CK-2) Rel Index 0.5 Troponin I <0.012 (0.000-0.034) ng/mL Total Protein 6.7 (6.3-8.2) g/dL Albumin 4.1 (3.5-5.0) g/dL TSH 1.790 (0.465-4.680) mIU/L Urine Color Urine Appearance (Clear) Urine pH (5.0-8.0) Ur Specific [place] (1.001-1.035) Urine Protein (Negative) Urine Glucose (UA) (Negative) Urine Ketones (Negative) Urine Blood (Negative) Urine Nitrite (Negative) Urine Bilirubin (Negative) Urine Urobilinogen (<2.0) mg/dL Ur Leukocyte Esterase (Negative) Urine RBC (0-5) /hpf Urine WBC (0-5) /hpf Ur Squamous Epith Cells (0-4) /hpf Urine Mucus (None) /hpf 12/15/17 12/15/17 Range/Units 21:47 22:17 WBC (3.8-10.6) k/uL RBC (3.80-5.40) m/uL Hgb (11.4-16.0) gm/dL Hct (34.0-46.0) % MCV (80.0-100.0) fL MCH (25.0-35.0) pg MCHC (31.0-37.0) g/dL RDW (11.5-15.5) % Plt Count (150-450) k/uL Neutrophils % % Lymphocytes % % Monocytes % % Eosinophils % % Basophils % % Neutrophils # (1.3-7.7) k/uL Lymphocytes # (1.0-4.8) k/uL Monocytes # (0-1.0) k/uL Eosinophils # (0-0.7) k/uL Basophils # (0-0.2) k/uL PT 9.5 (9.0-12.0) sec INR 1.0 (<1.2) APTT 21.6 L (22.0-30.0) sec D-Dimer 0.52 (<0.60) mg/L FEU Sodium (137-145) mmol/L Potassium (3.5-5.1) mmol/L Chloride (98-107) mmol/L Carbon Dioxide (22-30) mmol/L Anion Gap mmol/L BUN (7-17) mg/dL Creatinine (0.52-1.04) mg/dL Est GFR (CKD-EPI)AfAm (>60 ml/min/1.73 sqM) Est GFR (CKD-EPI)NonAf (>60 ml/min/1.73 sqM) Glucose (74-99) mg/dL Calcium (8.4-10.2) mg/dL Magnesium (1.6-2.3) mg/dL Total Bilirubin (0.2-1.3) mg/dL AST (14-36) U/L ALT (9-52) U/L Alkaline Phosphatase (38-126) U/L Total Creatine Kinase (30-135) U/L CK-MB (CK-2) (0.0-2.4) ng/mL CK-MB (CK-2) Rel Index Troponin I (0.000-0.034) ng/mL Total Protein (6.3-8.2) g/dL Albumin (3.5-5.0) g/dL TSH (0.465-4.680) mIU/L Urine Color Yellow Urine Appearance Cloudy H (Clear) Urine pH 5.5 (5.0-8.0) Ur Specific [place] 1.031 (1.001-1.035) Urine Protein 1+ H (Negative) Urine Glucose (UA) Negative (Negative) Urine Ketones Trace H (Negative) Urine Blood Negative (Negative) Urine Nitrite Negative (Negative) Urine Bilirubin Negative (Negative) Urine Urobilinogen <2.0 (<2.0) mg/dL Ur Leukocyte Esterase Moderate H (Negative) Urine RBC 3 (0-5) /hpf Urine WBC 3 (0-5) /hpf Ur Squamous Epith Cells 11 H (0-4) /hpf Urine Mucus Rare H (None) /hpf Disposition Clinical Impression: Exacerbation of multiple sclerosis Disposition: ADMITTED IP TO THIS HOSP Condition: Fair Referrals: Robbie Recio MD [Primary Care Provider] - 1-2 days
[2017-12-15] MEDS ORDERED: diphenhydrAMINE 50 MG/ML 1 ML VIAL IVP STA (21:25)
[2017-12-15] MEDS ORDERED: SODIUM CHLORIDE 0.9% 1,000 ML IV STA (21:25)
[2017-12-15] MEDS ORDERED: METOCLOPRAMIDE 5 MG/ML 2 ML VIAL IVP STA (21:25)
[2017-12-15] MEDS ORDERED: KETOROLAC 30 MG/ML 1 ML VIAL IVP STA (21:25)
[2017-12-15 22:05] LABS: Basophils % (A) 0 %; Eosinophils # (A) 0.1 k/uL (0-0.7); Eosinophils % (A) 1 %; HCT 40.2 % (34.0-46.0); HGB 13.1 gm/dL (11.4-16.0); Lymphocytes # (A) 0.7 k/uL (1.0-4.8); Lymphocytes % (A) 6 %; MCH 28.5 pg (25.0-35.0); MCHC 32.6 g/dL (31.0-37.0); MCV 87.5 fL (80.0-100.0); Mean Platelet Volume 7.7; Monocytes # (A) 0.3 k/uL (0-1.0); Monocytes % (A) 3 %; Neutrophils # (A) 10.5 k/uL (1.3-7.7); Neutrophils % (A) 90 %; Platelet Count 308 k/uL (150-450); RBC 4.59 m/uL (3.80-5.40); RDW 13.4 % (11.5-15.5); WBC 11.6 k/uL (3.8-10.6)
[2017-12-15 22:12] LABS: ALT 28 U/L (9-52); AST 22 U/L (14-36); Albumin 4.1 g/dL (3.5-5.0); Alkaline Phosphatase 68 U/L (38-126); Anion Gap 10 mmol/L; Blood Urea Nitrogen 15 mg/dL (7-17); Calcium 9.8 mg/dL (8.4-10.2); Carbon Dioxide 21 mmol/L (22-30); Chloride 110 mmol/L (98-107); Glucose 179 mg/dL (74-99); Magnesium 1.7 mg/dL (1.6-2.3); Potassium 4.3 mmol/L (3.5-5.1); Sodium 141 mmol/L (137-145); Total Bilirubin 0.3 mg/dL (0.2-1.3); Total Protein 6.7 g/dL (6.3-8.2)
--- NOTE | 2017-12-15 22:19 | XR ---
EXAMINATION TYPE: XR chest 2V DATE OF EXAM: 12/15/2017 COMPARISON: 06/22/2016 HISTORY: Asthma. Hypertension TECHNIQUE: Frontal and lateral views of the chest are obtained. FINDINGS: Heart and mediastinum are normal. Lungs are clear. Diaphragm is normal. Bony thorax is int act. IMPRESSION: Normal chest. No change.
[2017-12-15 22:26] LABS: D-Dimer 0.52 mg/L FEU (<0.60); Prothrombin Time 9.5 sec (9.0-12.0)
[2017-12-15 22:29] LABS: Partial Thromboplastin Time 21.6 sec (22.0-30.0)
[2017-12-15 22:32] LABS: Appearance,Urine Cloudy (Clear); Bilirubin,Urine Negative (Negative); Blood,Urine Negative (Negative); Color,Urine Yellow; Glucose,Urine (UA) Negative (Negative); Ketones,Urine Trace (Negative); Leukocyte Esterase,Urine Moderate (Negative); Mucus,Urine Rare /hpf; Nitrite,Urine Negative (Negative); PH, Urine 5.5 (5.0-8.0); Protein,Urine 1+ (Negative); RBC,Urine 3 /hpf (0-5); Specific Gravity,Urine 1.031 (1.001-1.035); Squamous Epithelial Cell,Urine 11 /hpf (0-4); Urobilinogen,Urine <2.0 mg/dL (<2.0); WBC,Urine 3 /hpf (0-5)
[2017-12-15 22:33] LABS: Creatine Kinase 63 U/L (30-135)
[2017-12-15 22:46] LABS: Creatine Kinase MB 0.3 ng/mL (0.0-2.4); Troponin I <0.012 ng/mL (0.000-0.034)
[2017-12-16] MEDS ORDERED: methylPREDNISolone SOD SUCCI 250 MG in SODIUM CHLORIDE 0.9% 100 ML IVPB STA ×2 (00:08→08:54)
[2017-12-16] MEDS ORDERED: NALOXONE 0.4 MG/ML 1 ML VIAL IV PRN (00:13)
[2017-12-16 01:52] VITALS: BMI 34.8
[2017-12-16] MEDS ORDERED: diphenhydrAMINE 25 MG CAP PO PRN (02:07)
[2017-12-16] MEDS ORDERED: KETOROLAC 30 MG/ML 1 ML VIAL IVP SCH (02:15)
[2017-12-16] MEDS: BACLOFEN 10 MG TAB PO PRN ×5 (03:16→23:08)
[2017-12-16] MEDS: diphenhydrAMINE 50 MG/ML 1 ML VIAL IVP PRN ×4 (03:21→18:49)
[2017-12-16] MEDS: KETOROLAC 30 MG/ML 1 ML VIAL IVP PRN ×4 (07:31→23:06)
[2017-12-16] MEDS: INSULIN ASPART 100 UNIT/ML 1 ML 10 ML VIAL SQ SCH ×4 (07:39→21:10)
[2017-12-16 07:41] LABS: Glucose,Whole Blood 277 mg/dL (75-99)
[2017-12-16] MEDS: MONTELUKAST 10 MG TAB PO SCH (09:19)
[2017-12-16] MEDS: DULoxetine HCL 60 MG CAPSULE.DR PO SCH (09:19)
[2017-12-16] MEDS: PANTOPRAZOLE 40 MG TABLET PO SCH (09:19)
[2017-12-16] MEDS: ATORVASTATIN 10 MG TAB PO SCH (09:19)
[2017-12-16] MEDS: metFORMIN 500 MG TAB PO SCH (09:19)
[2017-12-16] MEDS: LEVOTHYROXINE 100 MCG TAB PO SCH (09:20)
[2017-12-16] MEDS: CHOLECALCIFEROL 1,000 UNIT TAB PO SCH (09:20)
[2017-12-16] MEDS: METOPROLOL TARTRATE 25 MG TAB PO SCH ×2 (09:20→21:10)
[2017-12-16] MEDS: NON-FORMULARY DRUG (Phentermine Hcl [Adipex-P] 37.5 MG) PO SCH (09:42)
[2017-12-16 11:42] LABS: Glucose,Whole Blood 257 mg/dL (75-99)
[2017-12-16 17:22] LABS: Glucose,Whole Blood 277 mg/dL (75-99)
--- NOTE | 2017-12-16 17:43 | P.HPIM ---
History of Present Illness Chief Complaint: numbness Peyton is a 47-year-old female newer to my practice with a history of multiple sclerosis and chronic migraines. She went to the emergency department yesterday for evaluation of palpitations. Patient reports that approximately 2 weeks ago she began a new infusion therapy for her MS (Ocrevus), since then, she began experiencing headache and palpitations. She followed up with us last week, but had no abnormalities on EKG and BP was minimally elevated. She c/o of some mental confusion, unsteadiness on her feet and generalized malaise. The patient's neurologist agreed she was likely having a flare of her MS, this could be related to having been taken off all medications for 1 month prior to starting this new medication, however he advised that she come to the ER for evaluation of her palpitations and hypertension. Review of Systems All systems: negative Past Medical History Past Medical History: Asthma, Diabetes Mellitus, Hypertension, Musculoskeletal Disorder, Neurologic Disorder, Thyroid Disorder Additional Past Medical History / Comment(s): MS, back pain, DEGENERATIVE DISC DISEASE History of Any Multi-Drug Resistant Organisms: None Reported Past Surgical History: Bladder Surgery, Hernia Repair, Hysterectomy, Orthopedic Surgery, Tubal Ligation Additional Past Surgical History / Comment(s): rhinoplasty, bladder suspension, breast sx, morphine pump , RT KNEE SCOPE, TUMMY TUCK, SCS DEVICE INSERTED AND REMOVED-DOES NOT HAVE T-11 IN SPINE. Past Anesthesia/Blood Transfusion Reactions: Motion Sickness, Postoperative Nausea & Vomiting (PONV) Past Psychological History: No Psychological Hx Reported Smoking Status: Never smoker Past Alcohol Use History: None Reported Past Drug Use History: None Reported - Past Family History Father Family Medical History: Hypertension Mother History Unknown: Yes Family Medical History: No Reported History, Unable to Obtain Additional Family Medical History / Comment(s): NO FAMILY HISTORY Medications and Allergies Home Medications Medication Instructions Recorded Confirmed Type Albuterol Sulfate [Proair Hfa] 2 puff INHALATION RT-Q6H PRN 09/26/15 12/15/17 History Atorvastatin [Lipitor] 10 mg PO DAILY 09/26/15 12/15/17 History Diclofenac Sodium [Voltaren Gel] 4 gm TOPICAL DAILY PRN 09/26/15 12/15/17 History Phentermine HCl [Adipex-P] 37.5 mg PO QAM 09/26/15 12/15/17 History Levothyroxine Sodium [Synthroid] 100 mcg PO QAM 02/24/16 12/15/17 History Dextromethorphan HBr/Quinidine 1 cap PO BID 06/22/16 12/15/17 History [Nuedexta 20-10 mg Capsule] Morphine Pain Pump 8.35 mg EPIDURAL DAILY 06/22/16 12/15/17 History Loperamide [Imodium] 2 mg PO QID PRN #30 cap 06/23/16 12/15/17 Rx Montelukast [Singulair] 10 mg PO DAILY #30 tab 06/23/16 12/15/17 Rx metFORMIN HCL [Metformin HCl] 250 mg PO DAILY 08/31/16 12/15/17 History DULoxetine HCL [Cymbalta] 60 mg PO QAM 01/10/17 12/15/17 History Butalb/Acetaminophen/Caffeine 1 cap PO AC-TID PRN 01/16/17 12/15/17 History [Esgic 50-325-40 Capsule] Ipratropium-Albuterol Nebulize 3 ml INHALATION RT-QID PRN 01/16/17 12/15/17 History [Duoneb 0.5 mg-3 mg/3 ml Soln] INSULIN LISPRO (HumaLOG) [humaLOG] See Protocol SQ ACHS PRN 01/19/17 12/15/17 History Cholecalciferol [Vitamin D3] 1,000 unit PO MOWE 03/03/17 12/15/17 History Metoclopramide [Reglan] 10 mg PO QID 03/03/17 12/15/17 History Baclofen [Lioresal] 20 mg PO QID 04/26/17 12/15/17 History tiZANidine HCL [Zanaflex] 2 mg PO QID 06/15/17 12/15/17 History Scopolamine 1.5MG/72Hr Patch 1 patch TRANSDERM Q72H 07/07/17 12/15/17 History [Transderm-Scop 1.5MG/72Hr Patch] Omeprazole 40 mg PO DAILY #60 capsule. 07/12/17 12/15/17 Rx rOPINIRole HCL [Requip] 1 mg PO TID 10/30/17 12/15/17 History Ketorolac [Toradol] 10 mg PO TID 12/15/17 12/15/17 History Allergies Allergy/AdvReac Type Severity Reaction Status Date / Time adhesive Allergy Severe Rash/Hives Verified 12/15/17 20:26 adhesive tape Allergy Severe Rash/Hives Verified 12/15/17 20:26 fentanyl Allergy Severe Rash/Hives Verified 12/15/17 20:26 latex Allergy Severe Rash/Hives Verified 12/15/17 20:26 Physical Exam Vitals: Vital Signs Temp Pulse Pulse Resp BP BP Pulse Ox 12/16/17 15:00 98.8 F 86 18 153/98 94 L 12/16/17 12:55 92 142/99 93 L 12/16/17 11:00 82 134/74 12/16/17 09:00 110 H 176/117 12/16/17 07:37 98.4 F 101 H 22 164/104 97 12/16/17 03:00 18 12/16/17 01:46 98.8 F 94 18 170/69 96 12/16/17 01:26 84 16 141/76 95 12/16/17 00:47 148/93 12/15/17 23:48 108 H 163/115 96 12/15/17 23:32 103 H 18 153/94 12/15/17 23:17 116 H 18 154/104 97 12/15/17 22:28 113 H 18 120/60 95 12/15/17 21:52 151/102 12/15/17 21:06 119 H 20 96 12/15/17 20:21 98.8 F 130 H 20 148/105 98 Intake and Output 12/16/17 12/16/17 12/16/17 06:59 14:59 22:59 Intake Total 850 Balance 850 Intake: Oral 850 Other: Voiding Method Toilet Toilet # Voids 2 2 Weight 104 kg GENERAL: Well-appearing, well-nourished and in mild acute distress. sHe looks her age of 47. HEAD: Atraumatic, normocephalic. EYES: Pupils equal round and reactive to light, extraocular movements intact, sclera anicteric, conjunctiva are normal. ENT:nares patent, oropharynx clear without exudates. Moist mucous membranes. NECK: Normal range of motion, supple without lymphadenopathy or JVD, no thyromegaly LUNGS: Breath sounds clear to auscultation bilaterally and equal. No wheezes rales or rhonchi. HEART: Regular rate and rhythm without murmurs, rubs or gallops.S1S2 Normal ABDOMEN: Soft, nontender, normoactive bowel sounds. No guarding, no rebound. No masses appreciated. EXTREMITIES: Normal range of motion, no pitting or edema. No clubbing or cyanosis. NEUROLOGICAL: Cranial nerves II through XII grossly intact. Normal speech, normal gait. PSYCH: Normal mood, normal affect. SKIN: Warm, Dry, normal turgor, no rashes or lesions noted. Results CBC & Chem 7: 12/15/17 21:47 12/15/17 21:47 Labs: Abnormal Lab Results - Last 24 Hours (Table) 12/15/17 12/15/17 12/15/17 Range/Units 21:47 21:47 21:47 WBC 11.6 H (3.8-10.6) k/uL Neutrophils # 10.5 H (1.3-7.7) k/uL Lymphocytes # 0.7 L (1.0-4.8) k/uL APTT 21.6 L (22.0-30.0) sec Chloride 110 H (98-107) mmol/L Carbon Dioxide 21 L (22-30) mmol/L Glucose 179 H (74-99) mg/dL POC Glucose (mg/dL) (75-99) mg/dL Urine Appearance (Clear) Urine Protein (Negative) Urine Ketones (Negative) Ur Leukocyte Esterase (Negative) Ur Squamous Epith Cells (0-4) /hpf Urine Mucus (None) /hpf 12/15/17 12/16/17 12/16/17 Range/Units 22:17 07:35 11:39 WBC (3.8-10.6) k/uL Neutrophils # (1.3-7.7) k/uL Lymphocytes # (1.0-4.8) k/uL APTT (22.0-30.0) sec Chloride (98-107) mmol/L Carbon Dioxide (22-30) mmol/L Glucose (74-99) mg/dL POC Glucose (mg/dL) 277 H 257 H (75-99) mg/dL Urine Appearance Cloudy H (Clear) Urine Protein 1+ H (Negative) Urine Ketones Trace H (Negative) Ur Leukocyte Esterase Moderate H (Negative) Ur Squamous Epith Cells 11 H (0-4) /hpf Urine Mucus Rare H (None) /hpf 12/16/17 Range/Units 17:13 WBC (3.8-10.6) k/uL Neutrophils # (1.3-7.7) k/uL Lymphocytes # (1.0-4.8) k/uL APTT (22.0-30.0) sec Chloride (98-107) mmol/L Carbon Dioxide (22-30) mmol/L Glucose (74-99) mg/dL POC Glucose (mg/dL) 277 H (75-99) mg/dL Urine Appearance (Clear) Urine Protein (Negative) Urine Ketones (Negative) Ur Leukocyte Esterase (Negative) Ur Squamous Epith Cells (0-4) /hpf Urine Mucus (None) /hpf Chest x-ray: report reviewed Thrombosis Risk Factor Assmnt - Choose All That Apply Each Factor Represents 1 point: Age 41-60 years Thrombosis Risk Factor Assessment Total Risk Factor Score: 1 Thrombosis Risk Factor Assessment Level: Low Risk Assessment and Plan (1) Accelerated hypertension Current Visit: Yes Status: Acute Code(s): I10 - ESSENTIAL (PRIMARY) HYPERTENSION SNOMED Code(s): 04302453 (2) Palpitations Current Visit: Yes Status: Acute Code(s): R00.2 - PALPITATIONS SNOMED Code (s): 44769056 (3) Exacerbation of multiple sclerosis Current Visit: Yes Status: Acute Code(s): G35 - MULTIPLE SCLEROSIS SNOMED Code(s): 071995591 (4) Migraine Current Visit: No Status: Acute Code(s): G43.909 - MIGRAINE, UNSP, NOT INTRACTABLE, WITHOUT STATUS MIGRAINOSUS SNOMED Code(s): 60416736 (5) Paresthesias Current Visit: No Status: Acute Code(s): R20.2 - PARESTHESIA OF SKIN SNOMED Code(s): 37058335 Plan: I have already started her on Lpressor. Neuro Consult pending. Continue Solumedol 250mg q6hr. She will be revaluated in the next 24 hrs
[2017-12-16] MEDS: LISINOPRIL 20 MG TAB PO SCH (17:54)
[2017-12-16] MEDS ORDERED: methylPREDNISolone SOD SUCCI 250 MG in SODIUM CHLORIDE 0.9% 100 ML IVPB SCH (18:00)
[2017-12-16 21:18] LABS: Glucose,Whole Blood 258 mg/dL (75-99)
--- NOTE | 2017-12-16 22:42 | P.CNNES ---
History of Present Illness Consult date: 12/16/17 Reason for Consult: Patient admitted for MS exacerbation and headaches. History of Present Illness: This patient is a 47-year-old right-handed white female who was admitted to [facility] today for possible exacerbation of multiple sclerosis. The patient has a history of relapsing remitting form of multiple sclerosis which was first diagnosed in 2008. She was treated aggressively with interferon therapy at the time but over the last several years has been showing progression of her multiple sclerosis. She is followed in the outpatient neurology clinic with Dr. No. She has history of multiple other medical conditions including chronic pain syndrome, diabetes mellitus, asthma, and thyroid disorder. Due to her chronic pain syndrome she has been treated with a pain pump. This is usually been of some help in terms of management of her chronic pain symptoms. More recently she has been showing progression of her MS. She initially was treated for MS and was taking interferon therapy with Copaxone for years. She then tried to linear for a year to all of which were not effective in controlling her MS condition as was identified with progressive MRI studies of her brain. According to the patient about 2 months ago she underwent a MRI of the brain which showed 2 new lesions. For this reason she was recommended to consider Ocrevus infusion for treatment of her more advanced MS. The patient underwent her first infusion for this medication on 11/30/2017. Patient states that the entire infusion over 6 hours with close monitoring. The patient apparently developed some hypertension following this first infusion. She also was complaining of headache symptoms which were worsening after this first infusion. The patient apparently over the last 2 months has been having chest discomfort and has had evaluation with EKG studies showing some changes for her. She has not been seen by cardiology however for these conditions. Following her first infusion on 11/30/2017 the patient has been having increased symptoms of uncontrolled hypertension as well as tachycardia. We have recommended a cardiology consultation for this patient to be seen as soon as possible today. The patient states that her MS has been progressing over the last 1 year. 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 Due to this finding she was advised to stop all treatment for her MS for 2 months. This has been progressing causing her more discomfort and most likely an acute exacerbation of her MS requiring her admission to hospital today. The patient underwent a second dose of Ocrevus infusion yesterday at Dr. No's office. She again had 6 hours of infusion therapy and again was complaining of chest discomfort as well as headaches. She was noted to have uncontrolled hypertension at the time as well. Due to her symptoms of worsening blood pressure control she was advised admission to the hospital today for further evaluation. Due to her MS exacerbation she was started on IV Solu-Medrol. Due to her immunocompromised state with the use of the new infusion therapy for her MS which is the Ocrevus we are recommending that she be placed on a slightly lower dose of the IV Solu-Medrol and we are recommending IV Solu-Medrol 250 mg IVP back every 12 hours. Would also recommend for her to be on Benadryl 25 mg IV piggyback every 8 hours. Due to her MS she has more left sided weakness. Her MRI of the brain which was performed on 10/24/2017 revealed 2 lesions one in the right cerebellum and the other on the left parietal lobe. These did not show enhancement with gadolinium. She has mostly left-sided weakness secondary to her MS findings. The patient is more concerned now in terms of her heart condition. We have explained to her that it would be best to have a full and complete evaluation from cardiology tomorrow morning. She is complaining of headaches today as well and on examination she has evidence of occipital neuritis left greater than right side on palpation. Her pain level is rated at 9/10 intensity especially on her left side. We have recommended the patient undergo an occipital nerve block procedure tomorrow to be performed by anesthesia. She is fully agreeable and we will arrange for this consultation for her. This patient 's overall prognosis at this time remains very guarded. She should follow-up with Dr. No for further management of her advanced multiple sclerosis when she is discharged. Hopefully we will be able to continue with IV Solu-Medrol for 2-3 days for her to see if we can alleviate some of her MS exacerbation symptoms. Her overall prognosis at this time remains very guarded. Neurology is now been consulted for further evaluation and recommendations. Review of Systems Constitutional: Denies chills, Denies fever Eyes: denies blurred vision, denies pain Ears, nose, mouth and throat: Denies headache, Denies sore throat Cardiovascular: Denies chest pain, Denies shortness of breath Respiratory: Denies cough Gastrointestinal: Denies abdominal pain, Denies diarrhea, Denies nausea, Denies vomiting Genitourinary: Denies dysuria, Denies hematuria Musculoskeletal: Denies myalgias Integumentary: Denies pruritus, Denies rash Neurological: Reports burning pain, Reports headaches, Reports migraines, Reports paresthesias, Denies numbness, Denies weakness Psychiatric: Denies anxiety, Denies depression Endocrine: Denies fatigue, Denies weight change Past Medical History Past Medical History: Asthma, Diabetes Mellitus, Hypertension, Musculoskeletal Disorder, Neurologic Disorder, Thyroid Disorder Additional Past Medical History / Comment(s): MS, back pain, DEGENERATIVE DISC DISEASE History of Any Multi-Drug Resistant Organisms: None Reported Past Surgical History: Bladder Surgery, Hernia Repair, Hysterectomy, Orthopedic Surgery, Tubal Ligation Additional Past Surgical History / Comment(s): rhinoplasty, bladder suspension, breast sx, morphine pump , RT KNEE SCOPE, TUMMY TUCK, SCS DEVICE INSERTED AND REMOVED-DOES NOT HAVE T-11 IN SPINE. Past Anesthesia/Blood Transfusion Reactions: Motion Sickness, Postoperative Nausea & Vomiting (PONV) Past Psychological History: No Psychological Hx Reported Smoking Status: Never smoker Past Alcohol Use History: None Reported Past Drug Use History: None Reported - Past Family History Father Family Medical History: Hypertension Mother History Unknown: Yes Family Medical History: No Reported History, Unable to Obtain Additional Family Medical History / Comment(s): NO FAMILY HISTORY Medications and Allergies Home Medications Medication Instructions Recorded Confirmed Type Albuterol Sulfate [Proair Hfa] 2 puff INHALATION RT-Q6H PRN 09/26/15 12/15/17 History Atorvastatin [Lipitor] 10 mg PO DAILY 09/26/15 12/15/17 History Diclofenac Sodium [Voltaren Gel] 4 gm TOPICAL DAILY PRN 09/26/15 12/15/17 History Phentermine HCl [Adipex-P] 37.5 mg PO QAM 09/26/15 12/15/17 History Levothyroxine Sodium [Synthroid] 100 mcg PO QAM 02/24/16 12/15/17 History Dextromethorphan HBr/Quinidine 1 cap PO BID 06/22/16 12/15/17 History [Nuedexta 20-10 mg Capsule] Morphine Pain Pump 8.35 mg EPIDURAL DAILY 06/22/16 12/15/17 History Loperamide [Imodium] 2 mg PO QID PRN #30 cap 06/23/16 12/15/17 Rx Montelukast [Singulair] 10 mg PO DAILY #30 tab 06/23/16 12/15/17 Rx metFORMIN HCL [Metformin HCl] 250 mg PO DAILY 08/31/16 12/15/17 History DULoxetine HCL [Cymbalta] 60 mg PO QAM 01/10/17 12/15/17 History Butalb/Acetaminophen/Caffeine 1 cap PO AC-TID PRN 01/16/17 12/15/17 History [Esgic 50-325-40 Capsule] Ipratropium-Albuterol Nebulize 3 ml INHALATION RT-QID PRN 01/16/17 12/15/17 History [Duoneb 0.5 mg-3 mg/3 ml Soln] INSULIN LISPRO (HumaLOG) [humaLOG] See Protocol SQ ACHS PRN 01/19/17 12/15/17 History Cholecalciferol [Vitamin D3] 1,000 unit PO MOWE 03/03/17 12/15/17 History Metoclopramide [Reglan] 10 mg PO QID 03/03/17 12/15/17 History Baclofen [Lioresal] 20 mg PO QID 04/26/17 12/15/17 History tiZANidine HCL [Zanaflex] 2 mg PO QID 06/15/17 12/15/17 History Scopolamine 1.5MG/72Hr Patch 1 patch TRANSDERM Q72H 07/07/17 12/15/17 History [Transderm-Scop 1.5MG/72Hr Patch] Omeprazole 40 mg PO DAILY #60 capsule. 07/12/17 12/15/17 Rx rOPINIRole HCL [Requip] 1 mg PO TID 10/30/17 12/15/17 History Ketorolac [Toradol] 10 mg PO TID 12/15/17 12/15/17 History Allergies Allergy/AdvReac Type Severity Reaction Status Date / Time adhesive Allergy Severe Rash/Hives Verified 12/15/17 20:26 adhesive tape Allergy Severe Rash/Hives Verified 12/15/17 20:26 fentanyl Allergy Severe Rash/Hives Verified 12/15/17 20:26 latex Allergy Severe Rash/Hives Verified 12/15/17 20:26 Physical Examination - Vital Signs Vital Signs: Vital Signs Temp Pulse Pulse Resp BP BP Pulse Ox 12/16/17 15:00 98.8 F 86 18 153/98 94 L 12/16/17 12:55 92 142/99 93 L 12/16/17 11:00 82 134/74 12/16/17 09:00 110 H 176/117 12/16/17 07:37 98.4 F 101 H 22 164/104 97 12/16/17 03:00 18 12/16/17 01:46 98.8 F 94 18 170/69 96 12/16/17 01:26 84 16 141/76 95 12/16/17 00:47 148/93 12/15/17 23:48 108 H 163/115 96 12/15/17 23:32 103 H 18 153/94 12/15/17 23:17 116 H 18 154/104 97 12/15/17 22:28 113 H 18 120/60 95 Intake and Output 12/16/17 12/16/17 12/16/17 06:59 14:59 22:59 Intake Total 850 Balance 850 Intake: Oral 850 Other: Voiding Method Toilet Toilet # Voids 2 2 Weight 104 kg - Constitutional General appearance: average body habitus, cooperative - EENT EENT: PERRL, mucous membranes moist - Respiratory Respiratory: lungs clear, normal breath sounds - Cardiovascular Cardiovascular: regular rate, normal S1, normal S2 Extremities: no peripheral edema bilaterally - Gastrointestinal Gastrointestinal: normoactive bowel sounds - Integumentary Integumentary: normal - Neurologic Cranial nerve examination: PERRL, EOMI, VFF, V1/V2/V3 grossly intact, face symmetric, tongue midline, intact gag reflex, intact corneal reflex, normal palatal elevation Speech examination: intact Sensorimotor examination: intact Motor examination - right side: 4/5: biceps, triceps, wrist flexion, wrist extension, purchasing intern, hip flexors, knee extensors, dorsiflexion, toe extension (EHL) , plantarflexion Motor examination - left side: 3/5: biceps, triceps, wrist flexion, wrist extension, purchasing intern, hip flexors, knee extensors, dorsiflexion, toe extension (EHL) , plantarflexion Detailed sensory examination: intact Reflex and gait examination: intact Reflexes: 1+: ankle, bicep, knee, tricep - Musculoskeletal Musculoskeletal: no pain - Psychiatric Psychiatric: mood/affect appropriate, cooperative Results - Laboratory Findings CBC and BMP: 12/15/17 21:47 12/15/17 21:47 Abnormal Lab Findings: Abnormal Labs 12/15/17 12/15/17 12/15/17 21:47 21:47 21:47 WBC 11.6 H Neutrophils # 10.5 H Lymphocytes # 0.7 L APTT 21.6 L Chloride 110 H Carbon Dioxide 21 L Glucose 179 H POC Glucose (mg/dL) Urine Appearance Urine Protein Urine Ketones Ur Leukocyte Esterase Ur Squamous Epith Cells Urine Mucus 12/15/17 12/16/17 12/16/17 22:17 07:35 11:39 WBC Neutrophils # Lymphocytes # APTT Chloride Carbon Dioxide Glucose POC Glucose (mg/dL) 277 H 257 H Urine Appearance Cloudy H Urine Protein 1+ H Urine Ketones Trace H Ur Leukocyte Esterase Moderate H Ur Squamous Epith Cells 11 H Urine Mucus Rare H 12/16/17 12/16/17 17:13 21:06 WBC Neutrophils # Lymphocytes # APTT Chloride Carbon Dioxide Glucose POC Glucose (mg/dL) 277 H 258 H Urine Appearance Urine Protein Urine Ketones Ur Leukocyte Esterase Ur Squamous Epith Cells Urine Mucus Assessment and Plan (1) Exacerbation of multiple sclerosis Current Visit: Yes Status: Acute Code(s): G35 - MULTIPLE SCLEROSIS SNOMED Code(s): 310546009 (2) Accelerated hypertension Current Visit: Yes Status: Acute Code(s): I10 - ESSENTIAL (PRIMARY) HYPERTENSION SNOMED Code(s): 80688298 (3) Occipital neuritis Current Visit: Yes Status: Acute Code(s): M54.81 - OCCIPITAL NEURALGIA SNOMED Code(s): 17003116 (4) Palpitations Current Visit: Yes Status: Acute Code(s): R00.2 - PALPITATIONS SNOMED Code (s): 48643349 Plan: This patient is a 47-year-old female who has a long-standing history of relapsing remitting form of multiple sclerosis. She was diagnosed in 2008 and has been showing evidence of progression of her MS condition. She has tried many interferon therapies over the years. 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 She was advised to begin a trial with use of Ocrevus infusion therapy for her more advanced MS. She had her first dose of this infusion back on 11/30. Her second dose was given to her yesterday on 12/15/2017. Following the first infusion therapy she began experiencing uncontrolled hypertension and chest discomfort. Her blood pressure was out of control and she was experiencing tachycardia. She has no previous history of these symptoms prior to the onset and use of the infusion therapy for her MS. 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 Patient states that her blood pressure readings recently were 173/120 with a heart rate of 140. She was quite concerned and decided to mention this to her primary care physician Dr. Recio. We have recommended the patient to be seen by cardiology as soon as possible tomorrow regarding her overall cardiac symptoms. In terms of her MS we would recommend he use the IV Solu- Medrol with Benadryl. She will need to follow-up with Dr. Moran for further management of her MS and whether she should continue use of the Ocrevus. We have discussed all of these findings in detail today with the patient. We reviewed her most recent MRI of the brain with her in detail as well. We will continue to follow her progress closely during this admission. Her overall prognosis at this time remains very guarded. Time with Patient: Greater than 30
[2017-12-16] MEDS: methylPREDNISolone SOD SUCCI 250 MG in SODIUM CHLORIDE 0.9% 100 ML IVPB SCH (23:05)
[2017-12-17] MEDS: KETOROLAC 30 MG/ML 1 ML VIAL IVP PRN ×3 (06:44→21:27)
[2017-12-17] MEDS: LEVOTHYROXINE 100 MCG TAB PO SCH (06:44)
[2017-12-17] MEDS: diphenhydrAMINE 50 MG/ML 1 ML VIAL IVP PRN ×3 (07:09→23:45)
[2017-12-17 07:19] LABS: Glucose,Whole Blood 212 mg/dL (75-99)
[2017-12-17] MEDS: metFORMIN 500 MG TAB PO SCH (08:09)
[2017-12-17] MEDS: INSULIN ASPART 100 UNIT/ML 1 ML 10 ML VIAL SQ SCH ×4 (08:09→21:16)
[2017-12-17] MEDS: PANTOPRAZOLE 40 MG TABLET PO SCH (08:11)
[2017-12-17] MEDS: CHOLECALCIFEROL 1,000 UNIT TAB PO SCH (08:11)
[2017-12-17] MEDS: ATORVASTATIN 10 MG TAB PO SCH (08:11)
[2017-12-17] MEDS: DULoxetine HCL 60 MG CAPSULE.DR PO SCH (08:11)
[2017-12-17] MEDS: METOPROLOL TARTRATE 25 MG TAB PO SCH (08:12)
[2017-12-17] MEDS: NON-FORMULARY DRUG (Phentermine Hcl [Adipex-P] 37.5 MG) PO SCH (08:13)
[2017-12-17] MEDS: MONTELUKAST 10 MG TAB PO SCH (08:13)
[2017-12-17 08:30] LABS: ALT 20 U/L (9-52); AST 12 U/L (14-36); Albumin 3.5 g/dL (3.5-5.0); Alkaline Phosphatase 62 U/L (38-126); Anion Gap 7 mmol/L; Blood Urea Nitrogen 18 mg/dL (7-17); Calcium 8.9 mg/dL (8.4-10.2); Carbon Dioxide 25 mmol/L (22-30); Chloride 110 mmol/L (98-107); Glucose 212 mg/dL (74-99); Potassium 4.3 mmol/L (3.5-5.1); Sodium 142 mmol/L (137-145); Total Bilirubin 0.3 mg/dL (0.2-1.3); Total Protein 5.8 g/dL (6.3-8.2)
[2017-12-17] MEDS: LISINOPRIL 20 MG TAB PO SCH (09:15)
[2017-12-17] MEDS: methylPREDNISolone SOD SUCCI 250 MG in SODIUM CHLORIDE 0.9% 100 ML IVPB SCH ×2 (10:07→21:15)
[2017-12-17] MEDS: BACLOFEN 10 MG TAB PO PRN ×2 (10:19→18:04)
[2017-12-17 12:02] LABS: Glucose,Whole Blood 230 mg/dL (75-99)
--- NOTE | 2017-12-17 12:02 | P.CRDCN ---
History of Present Illness History of present illness: Mrs. Braun is a pleasant 47-year-old female past medical history significant for multiple sclerosis, dyslipidemia, diabetes mellitus, hypertension, hypothyroidism, chronic back pain with morphine pump in place and asthma. She denies history of coronary artery disease or dyslipidemia and is never seen a carcass trimmer for any reason. We've been asked to see her in consultation for tachycardia and hypertension related to new MS medication infusion. She states she underwent an infusion of a new medication Ocrevus secondary to 2 new lesions noted on recent MRI. She states since undergoing the first infusion approximately 2 weeks ago she has had a persistent headache. She went in on Monday to undergo the second infusion. After the infusion was completed her blood pressure was checked and came to be elevated roughly 140/ 110 per the patient. She was tachycardic at 119. She was told that this can be a side effect of the medication. She states she has suffered from blood pressure in the past but since having a morphine pump implantation in 2012 she is not on any antihypertensives and her blood pressures been low 90-100 systolic. Upon admission to the hospital blood pressure was 148/105, 151/102. She has been started on lisinopril 20 mg daily and Lopressor 25 mg twice a day. Blood pressure this morning 128/72 heart rate is 78. She also has very vague complaints of intermittent episodes of chest discomfort in the last 2 weeks described as somebody flicking her chest. The symptoms are not associated with exertion with no specific aggravating or alleviating factors. They have been intermittent in nature and associated with mild shortness of breath and nausea. She also states she has been extremely diaphoretic. EKG reveals sinus tachycardia no acute ST or T wave abnormalities noted with a heart rate of 127 on admission. Chest x-ray is negative for an acute cardiopulmonary process. Laboratory data reviewed, sodium 142, potassium 4.3, creatinine 0.68, WBC 11.6, hemoglobin 13.1, platelets 308, d-dimer 0.52, magnesium 1.7, cardiac enzymes negative 1, TSH 1.79. At the time of my exam: CONSTITUTIONAL: Denies fever. Denies chills. EYES: Denies blurred vision. Denies vision changes. Denies eye pain. EARS, NOSE, MOUTH & THROAT: Denies headache. Denies sore throat. Denies ear pain. CARDIOVASCULAR: Denies chest pain. Denies shortness of breath. Denies orthopnea. Denies PND. Denies palpitations. RESPIRATORY: Denies cough. GASTROINTESTINAL: Denies abdominal pain. Denies diarrhea. Denies constipation. Denies nausea. Denies vomiting. MUSCULOSKELETAL: Denies myalgias. INTEGUMENTARY: Denies pruitis. Denies rash. NEUROLOGIC: Denies numbness. Denies tingling. Denies weakness. PSYCHIATRIC: Denies anxiety. Denies depression. ENDOCRINE: Denies fatigue. Denies weight change. Denies polydipsia. Denies polyurina. GENITOURINARY: Denies burning, hematuria or urgency with micturation. HEMATOLOGIC: Denies history of anemia. Denies bleeding. GENERAL: This is a 47-year-old occasion female in no apparent distress at the time of my examination. Obese. HEENT: Head is atraumatic, normocephalic. Pupils are equal, round. Sclerae anicteric. Conjunctivae are clear. Mucous membranes of the mouth are moist. Neck is supple. There is no jugular venous distention. No carotid bruit is heard. LUNGS: Clear to auscultation no wheezes, rales or rhonchi. No chest wall tenderness is noted on palpation or with deep breathing. HEART: Regular rate and rhythm without murmurs, rubs or gallops. S1 and S2 heard. ABDOMEN: Soft, nontender. Bowel sounds are heard. No organomegaly noted. EXTREMITIES: No evidence of peripheral edema and no calf tenderness noted. VASCULAR: Radial and dorsalis pedis pulses palpated, no evidence of clubbing. NEUROLOGIC: Patient is awake, alert and oriented x3. ASSESSMENT Chest pain, atypical. Hypertension Sinus tachycardia History of multiple sclerosis recently started new medication Ocrevus Diabetes mellitus Hypothyroidism Obesity PLAN Obtain stat troponin to rule out an acute coronary event. Obtain 2-D echocardiogram and Doppler study to assess cardiac structure and function. Discontinue lopressor and decrease lisinopril to 10 mg daily. Hemodynamically stable. Further recommendations to follow based on clinical course. Thank you kindly for this consultation. Nurse Practitioner note has been reviewed, I agree with a documented findings and plan of care. Patient was seen and examined. Past Medical History Past Medical History: Asthma, Diabetes Mellitus, Hypertension, Musculoskeletal Disorder, Neurologic Disorder, Thyroid Disorder Additional Past Medical History / Comment(s): MS, back pain, DEGENERATIVE DISC DISEASE History of Any Multi-Drug Resistant Organisms: None Reported Past Surgical History: Bladder Surgery, Hernia Repair, Hysterectomy, Orthopedic Surgery, Tubal Ligation Additional Past Surgical History / Comment(s): rhinoplasty, bladder suspension, breast sx, morphine pump , RT KNEE SCOPE, TUMMY TUCK, SCS DEVICE INSERTED AND REMOVED-DOES NOT HAVE T-11 IN SPINE. Past Anesthesia/Blood Transfusion Reactions: Motion Sickness, Postoperative Nausea & Vomiting (PONV) Past Psychological History: No Psychological Hx Reported Smoking Status: Never smoker Past Alcohol Use History: None Reported Past Drug Use History: None Reported - Past Family History Father Family Medical History: Hypertension Mother History Unknown: Yes Family Medical History: No Reported History, Unable to Obtain Additional Family Medical History / Comment(s): NO FAMILY HISTORY Medications and Allergies Home Medications Medication Instructions Recorded Confirmed Type Albuterol Sulfate [Proair Hfa] 2 puff INHALATION RT-Q6H PRN 09/26/15 12/15/17 History Atorvastatin [Lipitor] 10 mg PO DAILY 09/26/15 12/15/17 History Diclofenac Sodium [Voltaren Gel] 4 gm TOPICAL DAILY PRN 09/26/15 12/15/17 History Phentermine HCl [Adipex-P] 37.5 mg PO QAM 09/26/15 12/15/17 History Levothyroxine Sodium [Synthroid] 100 mcg PO QAM 02/24/16 12/15/17 History Dextromethorphan HBr/Quinidine 1 cap PO BID 06/22/16 12/15/17 History [Nuedexta 20-10 mg Capsule] Morphine Pain Pump 8.35 mg EPIDURAL DAILY 06/22/16 12/15/17 History Loperamide [Imodium] 2 mg PO QID PRN #30 cap 06/23/16 12/15/17 Rx Montelukast [Singulair] 10 mg PO DAILY #30 tab 06/23/16 12/15/17 Rx metFORMIN HCL [Metformin HCl] 250 mg PO DAILY 08/31/16 12/15/17 History DULoxetine HCL [Cymbalta] 60 mg PO QAM 01/10/17 12/15/17 History Butalb/Acetaminophen/Caffeine 1 cap PO AC-TID PRN 01/16/17 12/15/17 History [Esgic 50-325-40 Capsule] Ipratropium-Albuterol Nebulize 3 ml INHALATION RT-QID PRN 01/16/17 12/15/17 History [Duoneb 0.5 mg-3 mg/3 ml Soln] INSULIN LISPRO (HumaLOG) [humaLOG] See Protocol SQ ACHS PRN 01/19/17 12/15/17 History Cholecalciferol [Vitamin D3] 1,000 unit PO MOWE 03/03/17 12/15/17 History Metoclopramide [Reglan] 10 mg PO QID 03/03/17 12/15/17 History Baclofen [Lioresal] 20 mg PO QID 04/26/17 12/15/17 History tiZANidine HCL [Zanaflex] 2 mg PO QID 06/15/17 12/15/17 History Scopolamine 1.5MG/72Hr Patch 1 patch TRANSDERM Q72H 07/07/17 12/15/17 History [Transderm-Scop 1.5MG/72Hr Patch] Omeprazole 40 mg PO DAILY #60 capsule. 07/12/17 12/15/17 Rx rOPINIRole HCL [Requip] 1 mg PO TID 10/30/17 12/15/17 History Ketorolac [Toradol] 10 mg PO TID 12/15/17 12/15/17 History Allergies Allergy/AdvReac Type Severity Reaction Status Date / Time adhesive Allergy Severe Rash/Hives Verified 12/15/17 20:26 adhesive tape Allergy Severe Rash/Hives Verified 12/15/17 20:26 fentanyl Allergy Severe Rash/Hives Verified 12/15/17 20:26 latex Allergy Severe Rash/Hives Verified 12/15/17 20:26 Physical Exam Vitals: Vital Signs Temp Pulse Pulse Resp BP Pulse Ox 12/17/17 05:56 98.6 F 78 20 128/72 95 12/16/17 23:00 98.5 F 68 20 123/78 98 12/16/17 15:00 98.8 F 86 18 153/98 94 L 12/16/17 12:55 92 142/99 93 L Intake and Output 12/16/17 12/17/17 12/17/17 22:59 06:59 14:59 Intake Total 300 200 320 Balance 300 200 320 Intake: Oral 300 200 320 Other: Voiding Method Toilet Toilet # Voids 1 1 Results 12/15/17 21:47 12/17/17 07:51 Cardiac Enzymes 12/17/17 Range/Units 07:51 AST 12 L (14-36) U/L Comprehensive Metabolic Panel 12/17/17 Range/Units 07:51 Sodium 142 (137-145) mmol/L Potassium 4.3 (3.5-5.1) mmol/L Chloride 110 H (98-107) mmol/L Carbon Dioxide 25 (22-30) mmol/L BUN 18 H (7-17) mg/dL Creatinine 0.68 (0.52-1.04) mg/dL Glucose 212 H (74-99) mg/dL Calcium 8.9 (8.4-10.2) mg/dL AST 12 L (14-36) U/L ALT 20 (9-52) U/L Alkaline Phosphatase 62 (38-126) U/L Total Protein 5.8 L (6.3-8.2) g/dL Albumin 3.5 (3.5-5.0) g/dL Current Medications Generic Name Dose Route Start Last Admin Trade Name Freq PRN Reason Stop Dose Admin Atorvastatin Calcium 10 mg 12/16/17 09:00 12/17/17 08:11 Lipitor PO 10 mg DAILY DESTINY Administration Baclofen 20 mg 12/16/17 02:15 12/17/17 10:19 Lioresal PO 20 mg QID PRN Administration SPASM Cholecalciferol 1,000 unit 12/16/17 09:00 12/17/17 08:11 Vitamin D3 PO 1,000 unit DAILY DESTINY Administration Diphenhydramine HCl 25 mg 12/16/17 22:20 12/17/17 07:09 Benadryl IVP 25 mg Q8HR PRN Administration Allergy Symptoms Duloxetine HCl 60 mg 12/16/17 09:00 12/17/17 08:11 Cymbalta PO 60 mg QAM DESTINY Administration Methylprednisolone Sodium 104 mls @ 100 mls/hr 12/17/17 00:00 12/17/17 10:07 Succinate 250 mg/ Sodium IVPB 12/18/17 22:03 100 mls/hr Chloride Q12HR DESTINY Administration Insulin Aspart 0 unit 12/16/17 07:30 12/17/17 08:09 Novolog SQ 4 unit ACHS DESTINY Administration Protocol Ketorolac Tromethamine 15 mg 12/16/17 04:54 12/17/17 06:44 Toradol IVP 12/20/17 02:08 15 mg Q6HR PRN Administration Pain Scale 3 To 5 Levothyroxine Sodium 100 mcg 12/16/17 09:00 12/17/17 06:44 Synthroid PO 100 mcg 0630 DESTINY Administration Lisinopril 20 mg 12/16/17 17:45 12/17/17 09:15 Zestril PO 20 mg DAILY DESTINY Administration Metformin HCl 250 mg 12/16/17 09:00 12/17/17 08:09 Glucophage PO 250 mg W/BRKFST DESTINY Administration Metoprolol Tartrate 25 mg 12/16/17 09:00 12/17/17 08:12 Lopressor PO 25 mg BID DESTINY Administration Montelukast Sodium 10 mg 12/16/17 09:00 12/17/17 08:13 Singulair PO 10 mg DAILY DESTINY Administration Naloxone HCl 0.2 mg 12/16/17 00:13 Narcan IV Q2M PRN Opioid Reversal Non-Formulary Medication 37.5 mg 12/16/17 09:00 12/17/17 08:13 Phentermine Hcl [Adipex-P] PO Not Given QAM DESTINY Pantoprazole Sodium 40 mg 12/16/17 09:00 12/17/17 08:11 Protonix PO 40 mg AC-BRKFST DESTINY Administration Ropinirole HCl 1 mg 12/16/17 02:27 12/17/17 08:13 Requip PO 1 mg TID [facility] Administration Scopolamine 1 patch 12/18/17 09:00 Transderm-Scop 1.5mg/72hr Patch TRANSDERM Q72H [facility] Tizanidine HCl 2 mg 12/16/17 09:00 12/17/17 08:13 Zanaflex PO 2 mg QID [facility] Administration Intake and Output 12/16/17 12/17/17 12/17/17 22:59 06:59 14:59 Intake Total 300 200 320 Balance 300 200 320 Intake: Oral 300 200 320 Other: Voiding Method Toilet Toilet # Voids 1 1 12/15/17 21:47 12/17/17 07:51
[2017-12-17 17:18] LABS: Glucose,Whole Blood 191 mg/dL (75-99)
--- NOTE | 2017-12-17 17:21 | P.PN ---
Subjective Peyton is a 47-year-old female newer to my practice with a history of multiple sclerosis and chronic migraines. She went to the emergency department yesterday for evaluation of palpitations. Patient reports that approximately 2 weeks ago she began a new infusion therapy for her MS (Ocrevus), since then, she began experiencing headache and palpitations. She followed up with us last week, but had no abnormalities on EKG and BP was minimally elevated. She c/o of some mental confusion, unsteadiness on her feet and generalized malaise. The patient's neurologist agreed she was likely having a flare of her MS, this could be related to having been taken off all medications for 1 month prior to starting this new medication, however he advised that she come to the ER for evaluation of her palpitations and hypertension. 12/17/2017: Neurology evaluation was noted. They're planning a occipital block tomorrow. They reduced her steroids to 250 mg IV piggyback every 12 hourly. Cardiology evaluation was noted. The etiology discontinued her Lopressor and decreased her lisinopril. Her blood pressure and pulse remained good today. Currently Peyton is complaining of her ongoing headache. She denies any chest pains, pressures, or shortness of breath this time. She denies any more palpitations. Objective - Vital Signs Vital signs: Vital Signs Temp 99.2 F 12/17/17 15:00 Pulse 77 12/17/17 15:00 Resp 16 12/17/17 15:00 BP 144/83 12/17/17 15:00 Pulse Ox 95 12/17/17 15:00 Intake & Output 12/16/17 12/17/17 12/17/17 18:59 06:59 18:59 Intake Total 850 500 320 Balance 850 500 320 Intake: Oral 850 500 320 Other: Voiding Method Toilet Toilet Toilet # Voids 2 1 4 - Exam GENERAL: Well-appearing, well-nourished and in mild acute distress. sHe looks her age of 47. HEAD: Atraumatic, normocephalic. EYES: Pupils equal round and reactive to light, extraocular movements intact, sclera anicteric, conjunctiva are normal. ENT:nares patent, oropharynx clear without exudates. Moist mucous membranes. NECK: Normal range of motion, supple without lymphadenopathy or JVD, no thyromegaly LUNGS: Breath sounds clear to auscultation bilaterally and equal. No wheezes rales or rhonchi. HEART: Regular rate and rhythm without murmurs, rubs or gallops.S1S2 Normal ABDOMEN: Soft, nontender, normoactive bowel sounds. No guarding, no rebound. No masses appreciated. EXTREMITIES: Normal range of motion, no pitting or edema. No clubbing or cyanosis. NEUROLOGICAL: Cranial nerves II through XII grossly intact. Normal speech, normal gait. PSYCH: Normal mood, normal affect. SKIN: Warm, Dry, normal turgor, no rashes or lesions noted. - Labs CBC & Chem 7: 12/15/17 21:47 12/17/17 07:51 Labs: Abnormal Lab Results - Last 24 Hours (Table) 12/16/17 12/16/17 12/17/17 Range/Units 17:13 21:06 07:12 Chloride (98-107) mmol/L BUN (7-17) mg/dL Glucose (74-99) mg/dL POC Glucose (mg/dL) 277 H 258 H 212 H (75-99) mg/dL AST (14-36) U/L Total Protein (6.3-8.2) g/dL 12/17/17 12/17/17 Range/Units 07:51 11:56 Chloride 110 H (98-107) mmol/L BUN 18 H (7-17) mg/dL Glucose 212 H (74-99) mg/dL POC Glucose (mg/dL) 230 H (75-99) mg/dL AST 12 L (14-36) U/L Total Protein 5.8 L (6.3-8.2) g/dL Assessment and Plan (1) Accelerated hypertension Current Visit: Yes Status: Acute Code(s): I10 - ESSENTIAL (PRIMARY) HYPERTENSION SNOMED Code(s): 14741762 (2) Palpitations Current Visit: Yes Status: Acute Code(s): R00.2 - PALPITATIONS SNOMED Code (s): 46709092 (3) Exacerbation of multiple sclerosis Current Visit: Yes Status: Acute Code(s): G35 - MULTIPLE SCLEROSIS SNOMED Code(s): 043078510 (4) Migraine Current Visit: No Status: Acute Code(s): G43.909 - MIGRAINE, UNSP, NOT INTRACTABLE, WITHOUT STATUS MIGRAINOSUS SNOMED Code(s): 72859067 (5) Paresthesias Current Visit: No Status: Acute Code(s): R20.2 - PARESTHESIA OF SKIN SNOMED Code(s): 83187842 Plan: Occipital block pending with neurology. Continue lisinopril, and her Lopressor was discontinued by cardiology. She will remain on the Solu-Medrol per neurology 250 IV piggyback every 12 hourly. She will be revaluated in the next 24 hrs
[2017-12-17 20:57] LABS: Glucose,Whole Blood 192 mg/dL (75-99)
[2017-12-18] MEDS: KETOROLAC 30 MG/ML 1 ML VIAL IVP PRN ×4 (03:44→20:19)
[2017-12-18] MEDS: LEVOTHYROXINE 100 MCG TAB PO SCH (06:32)
[2017-12-18 07:38] LABS: Glucose,Whole Blood 210 mg/dL (75-99)
[2017-12-18] MEDS: BACLOFEN 10 MG TAB PO PRN ×2 (08:09→14:20)
[2017-12-18] MEDS: diphenhydrAMINE 50 MG/ML 1 ML VIAL IVP PRN ×3 (08:10→23:30)
[2017-12-18] MEDS: INSULIN ASPART 100 UNIT/ML 1 ML 10 ML VIAL SQ SCH ×4 (08:10→21:06)
[2017-12-18] MEDS: DULoxetine HCL 60 MG CAPSULE.DR PO SCH (08:10)
[2017-12-18] MEDS: NON-FORMULARY DRUG (Phentermine Hcl [Adipex-P] 37.5 MG) PO SCH (08:11)
[2017-12-18] MEDS: PANTOPRAZOLE 40 MG TABLET PO SCH (08:11)
[2017-12-18] MEDS: MONTELUKAST 10 MG TAB PO SCH (08:11)
[2017-12-18] MEDS: LISINOPRIL 20 MG TAB PO SCH (08:11)
[2017-12-18] MEDS: ATORVASTATIN 10 MG TAB PO SCH (08:11)
[2017-12-18] MEDS: CHOLECALCIFEROL 1,000 UNIT TAB PO SCH (08:11)
[2017-12-18] MEDS: metFORMIN 500 MG TAB PO SCH (08:11)
[2017-12-18] MEDS ORDERED: SCOPOLAMINE 1.5MG/72HR PATCH TRANSDERM SCH (09:00)
[2017-12-18] MEDS: methylPREDNISolone SOD SUCCI 250 MG in SODIUM CHLORIDE 0.9% 100 ML IVPB SCH ×2 (09:04→21:40)
[2017-12-18 09:28] LABS: Anion Gap 7 mmol/L; Blood Urea Nitrogen 24 mg/dL (7-17); Calcium 8.8 mg/dL (8.4-10.2); Carbon Dioxide 27 mmol/L (22-30); Chloride 107 mmol/L (98-107); Glucose 190 mg/dL (74-99); Potassium 4.1 mmol/L (3.5-5.1); Sodium 141 mmol/L (137-145)
[2017-12-18 09:36] LABS: Basophils % (A) 0 %; Eosinophils % (A) 0 %; HCT 35.8 % (34.0-46.0); HGB 11.6 gm/dL (11.4-16.0); Lymphocytes # (A) 0.7 k/uL (1.0-4.8); Lymphocytes % (A) 7 %; MCH 29.1 pg (25.0-35.0); MCHC 32.4 g/dL (31.0-37.0); MCV 89.8 fL (80.0-100.0); Mean Platelet Volume 7.4; Monocytes # (A) 0.4 k/uL (0-1.0); Monocytes % (A) 4 %; Neutrophils % (A) 89 %; Platelet Count 299 k/uL (150-450); RBC 3.99 m/uL (3.80-5.40); RDW 13.9 % (11.5-15.5); WBC 11.2 k/uL (3.8-10.6)
--- NOTE | 2017-12-18 09:53 | P.PN ---
Subjective Progress Note Date: 12/18/17 Peyton is a 47-year-old female newer to my practice with a history of multiple sclerosis and chronic migraines. She went to the emergency department yesterday for evaluation of palpitations. Patient reports that approximately 2 weeks ago she began a new infusion therapy for her MS (Ocrevus), since then, she began experiencing headache and palpitations. She followed up with us last week, but had no abnormalities on EKG and BP was minimally elevated. She c/o of some mental confusion, unsteadiness on her feet and generalized malaise. The patient's neurologist agreed she was likely having a flare of her MS, this could be related to having been taken off all medications for 1 month prior to starting this new medication, however he advised that she come to the ER for evaluation of her palpitations and hypertension. 12/17/2017: Neurology evaluation was noted. They're planning a occipital block tomorrow. They reduced her steroids to 250 mg IV piggyback every 12 hourly. Cardiology evaluation was noted. The etiology discontinued her Lopressor and decreased her lisinopril. Her blood pressure and pulse remained good today. Currently Peyton is complaining of her ongoing headache. She denies any chest pains, pressures, or shortness of breath this time. She denies any more palpitations. Above notes per Dr. Recio 12/18/2017 Patient seen and examined at the bedside. Patient reports persistent headache. Neurology has consulted anesthesia for occipital nerve block but anesthesia has not evaluated patient yet at the time of my discussion with the patient. She does report she ate breakfast this morning. She states for previous nerve blocks she had to be "knocked out" for them. Advised patient to remain NPO until evaluated by anesthesia. If not intervention is to be performed from their standpoint today, patient may resume her diet. Patient states she continues to have weakness, mostly on her left side. She remains on Solumedral 250mg Q12 hours per neurology. Patient was started on lisinopril for her hypertension, which is currently controlled. 138/72 this morning. She denies chest pain or pressure. Denies shortness of breath or cough. Denies nausea or vomiting. Objective - Vital Signs Vital signs: Vital Signs Temp 98.9 F 12/18/17 07:33 Pulse 66 12/18/17 07:33 Resp 16 12/18/17 07:33 BP 138/72 12/18/17 07:33 Pulse Ox 94 L 12/18/17 07:33 Intake & Output 12/17/17 12/18/17 12/18/17 18:59 06:59 18:59 Intake Total 320 Balance 320 Weight 104 kg Intake: Oral 320 Other: Voiding Method Toilet Toilet Toilet # Voids 4 2 - Exam GENERAL: This is a 47-year-old female in no apparent distress at the time of examination. Pleasant and cooperative. HEENT: Head is atraumatic, normocephalic. Sclerae anicteric. Conjunctivae are clear. Mucus membranes of the mouth are moist. Neck is supple. RESPIRATORY: Clear to ausculation. No wheezes, rales, or rhonchi. No use of accessory muscles. Patient maintaining oxygen saturation greater than 92%. No chest wall tenderness is noted on palpation or with deep breathing. CARDIOVASCULAR: Regular rate and rhythm. S1 and S2 noted. No systolic or diastolic murmur auscultated. No JVD noted. No S3 or S4 noted. GASTROINTESTINAL: No distention noted. Abdomen soft and round. Normal active bowel sounds auscultated x 4 quadrants. No pain or tenderness noted upon palpation. INTEGUMENTARY: No cyanosis. No jaundice. No rashes noted. No cellulitis noted. EXTREMITIES: 2+ peripheral pulses. No evidence of peripheral edema. No calf tenderness noted. NEUROLOGIC: Cranial nerves II-XII intact. Left-sided weakness. PSYCHIATRIC: Awake, alert, and oriented X 3. Appropriate affect. Intact judgement and insight. - Labs CBC & Chem 7: 12/18/17 08:37 12/18/17 08:37 Labs: Abnormal Lab Results - Last 24 Hours (Table) 12/17/17 12/17/17 12/17/17 Range/Units 11:56 17:13 20:56 WBC (3.8-10.6) k/uL Neutrophils # (1.3-7.7) k/uL Lymphocytes # (1.0-4.8) k/uL BUN (7-17) mg/dL Glucose (74-99) mg/dL POC Glucose (mg/dL) 230 H 191 H 192 H (75-99) mg/dL 12/18/17 12/18/17 12/18/17 Range/Units 07:31 08:37 08:37 WBC 11.2 H (3.8-10.6) k/uL Neutrophils # 10.0 H (1.3-7.7) k/uL Lymphocytes # 0.7 L (1.0-4.8) k/uL BUN 24 H (7-17) mg/dL Glucose 190 H (74-99) mg/dL POC Glucose (mg/dL) 210 H (75-99) mg/dL Assessment and Plan Plan: ASSESSMENT: Acute exacerbation of multiple sclerosis Accelerated hypertension Chest pain, atypical, acute coronary syndrome ruled out Intractable migraine Occipital neuritis Diabetes mellitus, type II Steroid-induced hyperglycemia Hypothyroidism Obesity: BMI 34.9 Chronic pain syndrome with implantation of morphine pain pump PLAN: Cardiology on consult. Appreciate recommendations and input Echo ordered. Await results. Continue lisinopril Neurology on consult. Appreciate recommendations and input Continue Solu-Medrol 250 mg IV every 12 hours per neurology Continue NovoLog sliding scale AC/HS Anesthesia consulted for occipital nerve block NPO until patient has been evaluated by anesthesia. If no intervention today, patient may resume diet Home meds as appropriate Monitor labs GI prophylaxis: Protonix 40 mg PO Daily DVT prophylaxis: SCDs to bilateral lower extremities Monitor vital signs and address as appropriate Discharge planning: Patient to return home when stable Further recommendations pending patient's course Nurse practitioner note has been reviewed by physician. Signing provider agrees with the documented findings, assessment, and plan of care.
[2017-12-18] MEDS ORDERED: BUPIVACAIN-EPI 0.5%-1:200,000 30 ML VIAL SQ ONE (10:32)
[2017-12-18] MEDS ORDERED: TRIAMCINOLONE ACETONIDE 40 MG/ML 1 ML VIAL INTRABURSA ONE (10:33)
--- NOTE | 2017-12-18 11:25 | P.PCN ---
Date of Procedure: 12/18/17 Preoperative Diagnosis: Occipital headache Postoperative Diagnosis: Occipital headache Anesthesia: local Surgeon: Dejon Street Pathology: none sent Condition: stable Disposition: floor Description of Procedure: Procedure: 1- Bilateral (Right /Left ) occipital nerve block EBL: Minimal PROCEDURE INDICATION: The patient with neck pain and headache secondary to occipital neuralgea unresponsive to conservative treatments. PROCEDURE DESCRIPTION / TECHNIQUE: The patient was seen and identified in the preoperative area. Risks, benefits, complications, and alternatives were discussed with the patient, the patient agreed to proceed with the procedure and signed the consent. IV was started. Vital signs remained stable throughout the procedure. Patient was taken to the OR and time out was completed. The patient was placed in the prone position on the procedure table. A pillow was placed under the patients chest to increase the cervical interlaminar space. The cervical area and right occiptial area were prepped with chloraprep. Critical pause was taken. Vital signs were closely monitored during the procedure. Conscious sedation was used during the procedure to decrease patients anxiety. The the occipital exuberance and superior nuchal line were identified on the right side of the occiput. The greater occipital nerve location was estimated to be medial to the occipital artery and one third of the distance between the occipital exuberance and the right mastoid and the lesser occipital nerve was about two thirds of the distance between the occipital exuberance and the right mastoid on the superior nuchal line. I used 25-gauge 1-1/2 inch needle to go through the skin at these 2 points and infiltrate 2.5 MLS of a solution made up of 6 MLS Marcaine 0.5% +20 mg of Kenalog. The solution was infiltrated down to the periosteum.The same procedure was repeated on the left side. Patient tolerated procedure well.
[2017-12-18 11:45] LABS: Glucose,Whole Blood 154 mg/dL (75-99)
--- NOTE | 2017-12-18 13:05 | ECHOF ---
Referral Reason:Chest pain MEASUREMENTS -------- HEIGHT: 172.7 cm WEIGHT: 103.9 kg BP: 118/75 RVIDd: 3.3 cm (< 3.3) IVSd: 1.1 cm (0.6 - 1.1) LVIDd: 4.9 cm (3.9 - 5.3) LVPWd: 1.1 cm (0.6 - 1.1) IVSs: 1.5 cm LVIDs: 3.4 cm LVPWs: 1.8 cm LA Diam: 3.9 cm (2.7 - 3.8) LAESV Index (A-L): 23.56 ml/m Ao Diam: 3.4 cm (2.0 - 3.7) AV Cusp: 2.3 cm (1.5 - 2.6) MV EXCURSION: 15.618 mm (> 18.000) MV EF SLOPE: 110 mm/s (70 - 150) EPSS: 0.3 cm MV E Alireza: 1.06 m/s MV DecT: 152 ms MV A Alireza: 0.80 m/s MV E/A Ratio: 1.33 RAP: 5.00 mmHg RVSP: 40.81 mmHg FINDINGS -------- Resting bradycardia (HR<60bpm). This was a technically adequate study. Pt. Has Breast inplants The left ventricular size is normal. There is borderline concentric left ventricular hypertrophy. Overall left ventricular systolic function is normal with, an EF between 55 - 60 %. The right ventricle is mildly enlarged. Normal LA size by volume 22+/-6 ml/m2. The right atrium is normal in size. There is mild aortic valve sclerosis. Mild mitral annular calcification present. There is trace to mild mitral regurgitation. Mild tricuspid regurgitation present. There is mild pulmonary hypertension. The right ventricular systolic pressure, as measured by Doppler, is 40.81mmHg. Trace/mild (physiologic) pulmonic regurgitation. The aortic root size is normal. IVC Not well visulized. There is no pericardial effusion. CONCLUSIONS -------- 1. Resting bradycardia (HR<60bpm). 2. This was a technically adequate study. 3. Pt. Has Breast inplants 4. The left ventricular size is normal. 5. There is borderline concentric left ventricular hypertrophy. 6. Overall left ventricular systolic function is normal with, an EF between 55 - 60 %. 7. The right ventricle is mildly enlarged. 8. Normal LA size by volume 22+/-6 ml/m2. 9. The right atrium is normal in size. 10. There is mild aortic valve sclerosis. 11. Mild mitral annular calcification present. 12. There is trace to mild mitral regurgitation. 13. Mild tricuspid regurgitation present. 14. There is mild pulmonary hypertension. 15. The right ventricular systolic pressure, as measured by Doppler, is 40.81mmHg. 16. Trace/mild (physiologic) pulmonic regurgitation. 17. The aortic root size is normal. 18. IVC Not well visulized. 19. There is no pericardial effusion. FINAL FINISHER FORGING DIES: Fang Avila RDCS
[2017-12-18 17:01] LABS: Glucose,Whole Blood 271 mg/dL (75-99)
[2017-12-18 20:51] LABS: Glucose,Whole Blood 218 mg/dL (75-99)
[2017-12-19] MEDS: KETOROLAC 30 MG/ML 1 ML VIAL IVP PRN ×2 (02:40→10:13)
[2017-12-19] MEDS: BACLOFEN 10 MG TAB PO PRN (02:40)
[2017-12-19 05:54] VITALS: BP 141/86; PULSE 65; RESP 18; TEMP 98
[2017-12-19] MEDS: LEVOTHYROXINE 100 MCG TAB PO SCH (06:21)
[2017-12-19 07:18] LABS: Glucose,Whole Blood 222 mg/dL (75-99)
[2017-12-19] MEDS: PANTOPRAZOLE 40 MG TABLET PO SCH (07:49)
[2017-12-19] MEDS: ATORVASTATIN 10 MG TAB PO SCH (07:49)
[2017-12-19] MEDS: INSULIN ASPART 100 UNIT/ML 1 ML 10 ML VIAL SQ SCH (07:49)
[2017-12-19] MEDS: metFORMIN 500 MG TAB PO SCH (07:49)
[2017-12-19] MEDS: LISINOPRIL 20 MG TAB PO SCH (07:50)
[2017-12-19] MEDS: CHOLECALCIFEROL 1,000 UNIT TAB PO SCH (07:50)
[2017-12-19] MEDS: DULoxetine HCL 60 MG CAPSULE.DR PO SCH (07:50)
[2017-12-19] MEDS: NON-FORMULARY DRUG (Phentermine Hcl [Adipex-P] 37.5 MG) PO SCH (07:50)
[2017-12-19] MEDS: MONTELUKAST 10 MG TAB PO SCH (07:50)
[2017-12-19] MEDS: diphenhydrAMINE 50 MG/ML 1 ML VIAL IVP PRN (07:54)
--- NOTE | 2017-12-19 11:09 | P.DS ---
Providers Date of admission: 12/16/17 00:17 Expected date of discharge: 12/19/17 Attending physician: Robbie Recio Consults: 12/16/17 09:59 Consult Physician Urgent Consulting Provider: Carlos Winters Consult Reason/Comments: MS exacerbation Do you want consulting provider notified?: Yes 12/16/17 10:47 Consult Physician Routine Consulting Provider: Ziggy Arango Consult Reason/Comments: HTN, Tachycardia r/t possible MS medication Do you want consulting provider notified?: Yes 12/17/17 08:00 Consult to Anesthesia Routine Consulting Provider: Anesthesia,Services Consult Reason/Comments: Bilateral occipital nerve block procedure for occipital neuritis. Primary care physician: Robbie Recio [facility] Course: Peyton is a 47-year-old female newer to my practice with a history of multiple sclerosis and chronic migraines. She went to the emergency department yesterday for evaluation of palpitations. Patient reports that approximately 2 weeks ago she began a new infusion therapy for her MS (Ocrevus), since then, she began experiencing headache and palpitations. She followed up with us last week, but had no abnormalities on EKG and BP was minimally elevated. She c/o of some mental confusion, unsteadiness on her feet and generalized malaise. The patient's neurologist agreed she was likely having a flare of her MS, this could be related to having been taken off all medications for 1 month prior to starting this new medication, however he advised that she come to the ER for evaluation of her palpitations and hypertension. 12/17/2017: Neurology evaluation was noted. They're planning a occipital block tomorrow. They reduced her steroids to 250 mg IV piggyback every 12 hourly. Cardiology evaluation was noted. The etiology discontinued her Lopressor and decreased her lisinopril. Her blood pressure and pulse remained good today. Currently Peyton is complaining of her ongoing headache. She denies any chest pains, pressures, or shortness of breath this time. She denies any more palpitations. Above notes per Dr. Recio 12/18/2017 Patient seen and examined at the bedside. Patient reports persistent headache. Neurology has consulted anesthesia for occipital nerve block but anesthesia has not evaluated patient yet at the time of my discussion with the patient. She does report she ate breakfast this morning. She states for previous nerve blocks she had to be "knocked out" for them. Advised patient to remain NPO until evaluated by anesthesia. If not intervention is to be performed from their standpoint today, patient may resume her diet. Patient states she continues to have weakness, mostly on her left side. She remains on Solumedral 250mg Q12 hours per neurology. Patient was started on lisinopril for her hypertension, which is currently controlled. 138/72 this morning. She denies chest pain or pressure. Denies shortness of breath or cough. Denies nausea or vomiting. 12/19/2017 Patient received occipital nerve block yesterday per anesthesia. She reports her headache has improved. Patient has completed her regimen of IV steroids. Dr. Rivera requesting prednisone taper to begin at 40mg daily. Her blood pressure has remained stable since she was started on lisinopril 20 mg daily. Cardiology recommends to continue lisinopril 20 mg at the time of discharge. Patient had an echocardiogram completed which revealed an ejection fraction of 55-60%. No further intervention at this time from cardiology. The patient was cleared for discharge. She is to follow up on an outpatient basis with her primary care physician and all consulting providers. Prescriptions were sent to the patient's preferred pharmacy for lisinopril 20 mg daily. Also a prescription for a prednisone taper was sent to the patient's pharmacy at the request of neurology, Dr. Winters DISCHARGE DIAGNOSIS: Acute exacerbation of multiple sclerosis, improved at discharge Accelerated hypertension, improved at discharge Chest pain, atypical, acute coronary syndrome ruled out Intractable migraine, resolved Occipital neuritis, status post occipital nerve block Diabetes mellitus, type II Steroid-induced hyperglycemia Hypothyroidism Obesity: BMI 34.9 Chronic pain syndrome with implantation of morphine pain pump Nurse practitioner note has been reviewed by physician. Signing provider agrees with the documented findings, assessment, and plan of care. Patient Condition at Discharge: Stable Plan - Discharge Summary New Discharge Prescriptions: New Lisinopril [Zestril] 20 mg PO DAILY #30 tab predniSONE See Taper PO DIRECTED #30 tab Continue Phentermine HCl [Adipex-P] 37.5 mg PO QAM Atorvastatin [Lipitor] 10 mg PO DAILY Albuterol Sulfate [Proair Hfa] 2 puff INHALATION RT-Q6H PRN PRN Reason: Shortness Of Breath Diclofenac Sodium [Voltaren Gel] 4 gm TOPICAL DAILY PRN PRN Reason: Pain Levothyroxine Sodium [Synthroid] 100 mcg PO QAM Dextromethorphan HBr/Quinidine [Nuedexta 20-10 mg Capsule] 1 cap PO BID Morphine Pain Pump 8.35 mg EPIDURAL DAILY Montelukast [Singulair] 10 mg PO DAILY #30 tab Loperamide [Imodium] 2 mg PO QID PRN #30 cap PRN Reason: Diarrhea metFORMIN HCL [Metformin HCl] 250 mg PO DAILY DULoxetine HCL [Cymbalta] 60 mg PO QAM Ipratropium-Albuterol Nebulize [Duoneb 0.5 mg-3 mg/3 ml Soln] 3 ml INHALATION RT-QID PRN PRN Reason: Shortness Of Breath Butalb/Acetaminophen/Caffeine [Esgic 50-325-40 Capsule] 1 cap PO AC-TID PRN PRN Reason: Headache INSULIN LISPRO (HumaLOG) [humaLOG] See Protocol SQ ACHS PRN PRN Reason: Blood Sugar - High Cholecalciferol [Vitamin D3] 1,000 unit PO MOWE Metoclopramide [Reglan] 10 mg PO QID Baclofen [Lioresal] 20 mg PO QID tiZANidine HCL [Zanaflex] 2 mg PO QID Scopolamine 1.5MG/72Hr Patch [TransDerm Scop] 1 patch TRANSDERM Q72H Omeprazole 40 mg PO DAILY #60 capsule. rOPINIRole HCL [Requip] 1 mg PO TID Ketorolac [Toradol] 10 mg PO TID Discharge Medication List Albuterol Sulfate [Proair Hfa] 2 puff INHALATION RT-Q6H PRN 09/26/15 [History] Atorvastatin [Lipitor] 10 mg PO DAILY 09/26/15 [History] Diclofenac Sodium [Voltaren Gel] 4 gm TOPICAL DAILY PRN 09/26/15 [History] Phentermine HCl [Adipex-P] 37.5 mg PO QAM 09/26/15 [History] Levothyroxine Sodium [Synthroid] 100 mcg PO QAM 02/24/16 [History] Dextromethorphan HBr/Quinidine [Nuedexta 20-10 mg Capsule] 1 cap PO BID [History] Morphine Pain Pump 8.35 mg EPIDURAL DAILY 06/22/16 [History] Loperamide [Imodium] 2 mg PO QID PRN #30 cap 06/23/16 [Rx] Montelukast [Singulair] 10 mg PO DAILY #30 tab 06/23/16 [Rx] metFORMIN HCL [Metformin HCl] 250 mg PO DAILY 08/31/16 [History] DULoxetine HCL [Cymbalta] 60 mg PO QAM 01/10/17 [History] Butalb/Acetaminophen/Caffeine [Esgic 50-325-40 Capsule] 1 cap PO AC-TID PRN [History] Ipratropium-Albuterol Nebulize [Duoneb 0.5 mg-3 mg/3 ml Soln] 3 ml INHALATION RT -QID PRN 01/16/17 [History] INSULIN LISPRO (HumaLOG) [humaLOG] See Protocol SQ ACHS PRN 01/19/17 [History] Cholecalciferol [Vitamin D3] 1,000 unit PO MOWE 03/03/17 [History] Metoclopramide [Reglan] 10 mg PO QID 03/03/17 [History] Baclofen [Lioresal] 20 mg PO QID 04/26/17 [History] tiZANidine HCL [Zanaflex] 2 mg PO QID 06/15/17 [History] Scopolamine 1.5MG/72Hr Patch [TransDerm Scop] 1 patch TRANSDERM Q72H 07/07/17 [ History] Omeprazole 40 mg PO DAILY #60 capsule. 07/12/17 [Rx] rOPINIRole HCL [Requip] 1 mg PO TID 10/30/17 [History] Ketorolac [Toradol] 10 mg PO TID 12/15/17 [History] Lisinopril [Zestril] 20 mg PO DAILY #30 tab 12/19/17 [Rx] predniSONE See Taper PO DIRECTED #30 tab 12/19/17 [Rx] Follow up Appointment(s)/Referral(s): Landen Demarco MD [STAFF PHYSICIAN] - 2 Weeks (pt wants to make her own appointment.) Maura No MD [STAFF PHYSICIAN] - 1 Week (pt wants to make her own appointment.) Robbie Recio MD [Primary Care Provider] - 1 Week (pt wants to make her own appointment.) Patient Instructions/Handouts: Hypertension (DC) Discharge Disposition: HOME SELF-CARE
[2017-12-19 11:26] LABS: Glucose,Whole Blood 187 mg/dL (75-99)
== END 2017-12-19 11:48 | disposition home or self-care (01) ==
LOC: EC 20:16 → 4MS4W 12-16 00:17
PROVIDERS: ADMIT Family Medicine; ATTEND Family Medicine
DX: G35 Multiple sclerosis (principal); R00.2 Palpitations; G43.919 Migraine, unspecified, intractable, without status migrainosus; F44.89 Other dissociative and conversion disorders; I10 Essential (primary) hypertension; R07.89 Other chest pain; M54.81 Occipital neuralgia; E11.65 Type 2 diabetes mellitus with hyperglycemia; T38.0X5A Adverse effect of glucocorticoids and synthetic analogues, initial encounter; E03.9 Hypothyroidism, unspecified; Z68.34 Body mass index [BMI] 34.0-34.9, adult; E66.9 Obesity, unspecified; G89.4 Chronic pain syndrome; R00.0 Tachycardia, unspecified; R61 Generalized hyperhidrosis; R11.0 Nausea; R06.02 Shortness of breath; E78.5 Hyperlipidemia, unspecified; J45.909 Unspecified asthma, uncomplicated; Z82.41 Family history of sudden cardiac death; Z79.899 Other long term (current) drug therapy; Z79.890 Hormone replacement therapy; Z79.84 Long term (current) use of oral hypoglycemic drugs; Z79.891 Long term (current) use of opiate analgesic; Z79.4 Long term (current) use of insulin; Z91.040 Latex allergy status; Z88.5 Allergy status to narcotic agent; Z91.048 Other nonmedicinal substance allergy status
CPT/HCPCS: 99284; 96365 ×2; 96375 ×4; 96361 ×2; 96376 ×4; 96366 ×4; 36415; 93005; 93306; 64405; 85379; 80053 ×2; 80048; 84443; 82550; 82553; 83735; 84484 ×2; 85025 ×2; 85610; 85730; 81001; 71046; G0378 ×4; J1200 ×5; J3301; J2765; J2930 ×3; J1885 ×5

== ENCOUNTER 2017-12-21 14:54 | Emergency (ER) | payer BC, MEDICARE ==
[2017-12-21] MEDS ORDERED: SODIUM CHLORIDE 0.9% 500 ML IV STA (16:31)
[2017-12-21] MEDS ORDERED: HYDROmorphone 0.5 MG/0.5 ML SYRINGE IVP STA (16:33)
[2017-12-21] MEDS ORDERED: diphenhydrAMINE 50 MG/ML 1 ML VIAL IVP STA (16:33)
[2017-12-21] MEDS ORDERED: ONDANSETRON 4 MG/2 ML VIAL IVP STA (16:33)
--- NOTE | 2017-12-21 16:45 | ED ---
General Adult HPI - General Chief complaint: Recheck/Abnormal Lab/Rx Stated complaint: High blood pressure Time Seen by Provider: 12/21/17 16:12 Source: patient, RN notes reviewed Mode of arrival: ambulatory Limitations: no limitations - History of Present Illness Initial comments: This a 47-year-old female presents emergency Department chief complaint of palpitations, hypertension. Patient states she was just discharged from the hospital 2 days ago for similar complaints. She states that they told her it was related to a new MS medication infusion. She states that she was controlled on lisinopril and metoprolol in the hospital but was only sent home on lisinopril. She states that her blood pressure was elevated morning and her heart rate has been in the 130s all day. She now complains of worsening headache. She did have an occipital block by neurology while in the hospital and states that it did initially help. She didn't states that she tried to call her PCP and neurologist to get into a secondary symptoms though they had no availability. She states her neurologist now is told her that her symptoms are not related to the new medications though she states all symptoms started after receiving this infusion on Monday. - Related Data Home Medications Medication Instructions Recorded Confirmed Albuterol Sulfate [Proair Hfa] 2 puff INHALATION RT-Q6H PRN 09/26/15 12/21/17 Atorvastatin [Lipitor] 10 mg PO DAILY 09/26/15 12/21/17 Diclofenac Sodium [Voltaren Gel] 4 gm TOPICAL DAILY PRN 09/26/15 12/21/17 Phentermine HCl [Adipex-P] 37.5 mg PO QAM 09/26/15 12/21/17 Levothyroxine Sodium [Synthroid] 100 mcg PO QAM 02/24/16 12/21/17 Dextromethorphan HBr/Quinidine 1 cap PO BID 06/22/16 12/21/17 [Nuedexta 20-10 mg Capsule] Morphine Pain Pump 8.35 mg EPIDURAL DAILY 06/22/16 12/21/17 metFORMIN HCL [Metformin HCl] 250 mg PO DAILY 08/31/16 12/21/17 DULoxetine HCL [Cymbalta] 60 mg PO QAM 01/10/17 12/21/17 Butalb/Acetaminophen/Caffeine 1 cap PO AC-TID PRN 01/16/17 12/21/17 [Esgic 50-325-40 Capsule] Ipratropium-Albuterol Nebulize 3 ml INHALATION RT-QID PRN 01/16/17 12/21/17 [Duoneb 0.5 mg-3 mg/3 ml Soln] INSULIN LISPRO (HumaLOG) [humaLOG] See Protocol SQ ACHS PRN 01/19/17 12/21/17 Cholecalciferol [Vitamin D3] 1,000 unit PO MOWE 03/03/17 12/21/17 Metoclopramide [Reglan] 10 mg PO QID 03/03/17 12/21/17 Baclofen [Lioresal] 20 mg PO QID 04/26/17 12/21/17 tiZANidine HCL [Zanaflex] 2 mg PO QID 06/15/17 12/21/17 Scopolamine 1.5MG/72Hr Patch 1 patch TRANSDERM Q72H 07/07/17 12/21/17 [TransDerm Scop] rOPINIRole HCL [Requip] 1 mg PO TID 10/30/17 12/21/17 Ketorolac [Toradol] 10 mg PO TID 12/15/17 12/21/17 Previous Rx's Medication Instructions Recorded Loperamide [Imodium] 2 mg PO QID PRN #30 cap 06/23/16 Montelukast [Singulair] 10 mg PO DAILY #30 tab 06/23/16 Omeprazole 40 mg PO DAILY #60 capsule. 07/12/17 Lisinopril [Zestril] 20 mg PO DAILY #30 tab 12/19/17 predniSONE See Taper PO DIRECTED #30 tab 12/19/17 Metoprolol Tartrate [Lopressor] 12.5 mg PO BID #14 dose 12/21/17 Allergies Allergy/AdvReac Type Severity Reaction Status Date / Time adhesive Allergy Severe Rash/Hives Verified 12/21/17 16:26 adhesive tape Allergy Severe Rash/Hives Verified 12/21/17 16:26 fentanyl Allergy Severe Rash/Hives Verified 12/21/17 16:26 latex Allergy Severe Rash/Hives Verified 12/21/17 16:26 Review of Systems ROS Statement: Those systems with pertinent positive or pertinent negative responses have been documented in the HPI. ROS Other: All systems not noted in ROS Statement are negative. Past Medical History Past Medical History: Asthma, Diabetes Mellitus, Hypertension, Musculoskeletal Disorder, Neurologic Disorder, Thyroid Disorder Additional Past Medical History / Comment(s): MS, back pain, DEGENERATIVE DISC DISEASE History of Any Multi-Drug Resistant Organisms: None Reported Past Surgical History: Bladder Surgery, Hernia Repair, Hysterectomy, Orthopedic Surgery, Tubal Ligation Additional Past Surgical History / Comment(s): rhinoplasty, bladder suspension, breast sx, morphine pump , RT KNEE SCOPE, TUMMY TUCK, SCS DEVICE INSERTED AND REMOVED-DOES NOT HAVE T-11 IN SPINE. Past Anesthesia/Blood Transfusion Reactions: Motion Sickness, Postoperative Nausea & Vomiting (PONV) Past Psychological History: No Psychological Hx Reported Smoking Status: Never smoker Past Alcohol Use History: None Reported Past Drug Use History: None Reported - Past Family History Father Family Medical History: Hypertension Mother History Unknown: Yes Family Medical History: No Reported History, Unable to Obtain Additional Family Medical History / Comment(s): NO FAMILY HISTORY General Exam Limitations: no limitations General appearance: alert, in no apparent distress Head exam: Present: atraumatic, normocephalic, normal inspection Eye exam: Present: normal appearance, PERRL, EOMI. Absent: scleral icterus, conjunctival injection, periorbital swelling ENT exam: Present: normal exam, normal oropharynx, mucous membranes moist Neck exam: Present: normal inspection, full ROM. Absent: tenderness, meningismus, lymphadenopathy Respiratory exam: Present: normal lung sounds bilaterally. Absent: respiratory distress, wheezes, rales, rhonchi, stridor Cardiovascular Exam: Present: normal rhythm, tachycardia, normal heart sounds. Absent: systolic murmur, diastolic murmur, rubs, gallop, clicks GI/Abdominal exam: Present: soft, normal bowel sounds. Absent: distended, tenderness, guarding, rebound, rigid Neurological exam: Present: alert, oriented X3, CN II-XII intact, reflexes normal. Absent: motor sensory deficit Skin exam: Present: warm, dry, intact, normal color. Absent: rash Course Vital Signs 12/21/17 12/21/17 12/21/17 14:59 17:02 18:49 Temperature 98.2 F 99.5 F Pulse Rate 131 H 75 84 Respiratory 22 16 16 Rate Blood Pressure 134/92 144/89 O2 Sat by Pulse 98 98 98 Oximetry EKG Findings - EKG Comments: EKG Findings:: EKG performed at 15:13 sinus tachycardia with rate of 107 TX 112 QRS 66 QT/QTC 352/469 Medical Decision Making - Medical Decision Making 47-year-old female presented for episode of tachycardia palpitations and headache. This headache has been ongoing has been evaluated by neurology. They do feel this is related to her MS and had an occipital block. Patient did have tachycardia at 1:30 on initial triage vitals. Though she has been in the 70s to 80s at this time. Patient EKG is unremarkable. Labwork was obtained which is unremarkable. Patient will be discharged on low-dose Toprol and follow -up with PCP. - Lab Data Result diagrams: 12/21/17 17:24 12/21/17 17:24 Lab Results 12/21/17 12/21/17 12/21/17 Range/Units 17:24 17:24 17:24 WBC 13.0 H (3.8-10.6) k/uL RBC 4.79 (3.80-5.40) m/uL Hgb 14.1 (11.4-16.0) gm/dL Hct 41.9 (34.0-46.0) % MCV 87.4 (80.0-100.0) fL MCH 29.4 (25.0-35.0) pg MCHC 33.6 (31.0-37.0) g/dL RDW 13.7 (11.5-15.5) % Plt Count 360 (150-450) k/uL Neutrophils % 73 % Lymphocytes % 18 % Monocytes % 5 % Eosinophils % 3 % Basophils % 0 % Neutrophils # 9.5 H (1.3-7.7) k/uL Lymphocytes # 2.4 (1.0-4.8) k/uL Monocytes # 0.7 (0-1.0) k/uL Eosinophils # 0.4 (0-0.7) k/uL Basophils # 0.0 (0-0.2) k/uL PT (9.0-12.0) sec INR (<1.2) APTT (22.0-30.0) sec Sodium 138 (137-145) mmol/L Potassium 4.1 (3.5-5.1) mmol/L Chloride 100 (98-107) mmol/L Carbon Dioxide 31 H (22-30) mmol/L Anion Gap 7 mmol/L BUN 21 H (7-17) mg/dL Creatinine 0.75 (0.52-1.04) mg/dL Est GFR (CKD-EPI)AfAm >90 (>60 ml/min/1.73 sqM) Est GFR (CKD-EPI)NonAf >90 (>60 ml/min/1.73 sqM) Glucose 128 H (74-99) mg/dL Calcium 9.1 (8.4-10.2) mg/dL Magnesium 2.0 (1.6-2.3) mg/dL Total Bilirubin 0.5 (0.2-1.3) mg/dL AST 23 (14-36) U/L ALT 30 (9-52) U/L Alkaline Phosphatase 52 (38-126) U/L Total Creatine Kinase 28 L (30-135) U/L CK-MB (CK-2) 0.2 (0.0-2.4) ng/mL CK-MB (CK-2) Rel Index 0.7 Troponin I <0.012 (0.000-0.034) ng/mL Total Protein 5.8 L (6.3-8.2) g/dL Albumin 3.3 L (3.5-5.0) g/dL TSH 4.970 H (0.465-4.680) mIU/L 12/21/17 Range/Units 17:24 WBC (3.8-10.6) k/uL RBC (3.80-5.40) m/uL Hgb (11.4-16.0) gm/dL Hct (34.0-46.0) % MCV (80.0-100.0) fL MCH (25.0-35.0) pg MCHC (31.0-37.0) g/dL RDW (11.5-15.5) % Plt Count (150-450) k/uL Neutrophils % % Lymphocytes % % Monocytes % % Eosinophils % % Basophils % % Neutrophils # (1.3-7.7) k/uL Lymphocytes # (1.0-4.8) k/uL Monocytes # (0-1.0) k/uL Eosinophils # (0-0.7) k/uL Basophils # (0-0.2) k/uL PT 9.8 (9.0-12.0) sec INR 1.0 (<1.2) APTT 19.2 L (22.0-30.0) sec Sodium (137-145) mmol/L Potassium (3.5-5.1) mmol/L Chloride (98-107) mmol/L Carbon Dioxide (22-30) mmol/L Anion Gap mmol/L BUN (7-17) mg/dL Creatinine (0.52-1.04) mg/dL Est GFR (CKD-EPI)AfAm (>60 ml/min/1.73 sqM) Est GFR (CKD-EPI)NonAf (>60 ml/min/1.73 sqM) Glucose (74-99) mg/dL Calcium (8.4-10.2) mg/dL Magnesium (1.6-2.3) mg/dL Total Bilirubin (0.2-1.3) mg/dL AST (14-36) U/L ALT (9-52) U/L Alkaline Phosphatase (38-126) U/L Total Creatine Kinase (30-135) U/L CK-MB (CK-2) (0.0-2.4) ng/mL CK-MB (CK-2) Rel Index Troponin I (0.000-0.034) ng/mL Total Protein (6.3-8.2) g/dL Albumin (3.5-5.0) g/dL TSH (0.465-4.680) mIU/L Disposition Clinical Impression: Palpitations, Paroxysmal tachycardia Disposition: HOME SELF-CARE Condition: Stable Instructions: Heart Palpitations (ED) Additional Instructions: Please return to the Emergency Department if symptoms worsen or any other concerns. Prescriptions: Metoprolol Tartrate [Lopressor] 12.5 mg PO BID #14 dose Is patient prescribed a controlled substance at d/c from ED?: No Referrals: Robbie Recio MD [Primary Care Provider] - 1-2 days Time of Disposition: 18:56
[2017-12-21 17:33] VITALS: RESP 16
[2017-12-21 17:57] LABS: Basophils % (A) 0 %; Eosinophils # (A) 0.4 k/uL (0-0.7); Eosinophils % (A) 3 %; HCT 41.9 % (34.0-46.0); HGB 14.1 gm/dL (11.4-16.0); Lymphocytes # (A) 2.4 k/uL (1.0-4.8); Lymphocytes % (A) 18 %; MCH 29.4 pg (25.0-35.0); MCHC 33.6 g/dL (31.0-37.0); MCV 87.4 fL (80.0-100.0); Mean Platelet Volume 7.9; Monocytes # (A) 0.7 k/uL (0-1.0); Monocytes % (A) 5 %; Neutrophils # (A) 9.5 k/uL (1.3-7.7); Neutrophils % (A) 73 %; Platelet Count 360 k/uL (150-450); RBC 4.79 m/uL (3.80-5.40); RDW 13.7 % (11.5-15.5)
[2017-12-21 18:11] LABS: ALT 30 U/L (9-52); AST 23 U/L (14-36); Albumin 3.3 g/dL (3.5-5.0); Alkaline Phosphatase 52 U/L (38-126); Anion Gap 7 mmol/L; Blood Urea Nitrogen 21 mg/dL (7-17); Calcium 9.1 mg/dL (8.4-10.2); Carbon Dioxide 31 mmol/L (22-30); Chloride 100 mmol/L (98-107); Creatine Kinase 28 U/L (30-135); Glucose 128 mg/dL (74-99); Potassium 4.1 mmol/L (3.5-5.1); Prothrombin Time 9.8 sec (9.0-12.0); Sodium 138 mmol/L (137-145); Total Bilirubin 0.5 mg/dL (0.2-1.3); Total Protein 5.8 g/dL (6.3-8.2)
[2017-12-21 18:17] LABS: Partial Thromboplastin Time 19.2 sec (22.0-30.0)
[2017-12-21 18:23] LABS: Creatine Kinase MB 0.2 ng/mL (0.0-2.4); Troponin I <0.012 ng/mL (0.000-0.034)
[2017-12-21 18:51] VITALS: BP 144/89; PULSE 84; TEMP 99.5
== END 2017-12-21 19:04 | disposition home or self-care (01) ==
LOC: EC 14:54
DX: I47.9 Paroxysmal tachycardia, unspecified (principal); R51 Headache; J45.909 Unspecified asthma, uncomplicated; E11.9 Type 2 diabetes mellitus without complications; I10 Essential (primary) hypertension; E07.9 Disorder of thyroid, unspecified; G35 Multiple sclerosis; Z79.4 Long term (current) use of insulin; Z79.891 Long term (current) use of opiate analgesic; Z79.899 Other long term (current) drug therapy; Z91.040 Latex allergy status; Z88.5 Allergy status to narcotic agent; Z91.048 Other nonmedicinal substance allergy status
CPT/HCPCS: 36415; 93005; 80053; 82550; 82553; 83735; 84443; 84484; 85025; 85610; 85730; 99283; 96374; 96375 ×2; J1200; J2405; J1170

== ENCOUNTER 2018-01-09 17:07 | Emergency (ER) | payer BC, MEDICARE ==
[2018-01-09] MEDS ORDERED: ORPHENADRINE 30 MG/ML 2 ML VIAL IVP STA (18:21)
[2018-01-09] MEDS ORDERED: HYDROmorphone 1 MG/ML 1 ML SYRINGE IVP STA (18:21)
[2018-01-09] MEDS ORDERED: METOPROLOL TARTRATE 25 MG TAB PO STA (18:21)
[2018-01-09] MEDS ORDERED: METOCLOPRAMIDE 5 MG/ML 2 ML VIAL IVP STA (18:21)
[2018-01-09] MEDS ORDERED: diphenhydrAMINE 50 MG/ML 1 ML VIAL IVP STA (18:21)
[2018-01-09] MEDS ORDERED: KETOROLAC 30 MG/ML 1 ML VIAL IVP STA (18:21)
[2018-01-09] MEDS ORDERED: SODIUM CHLORIDE 0.9% 1,000 ML IV ONE (18:21)
[2018-01-09] MEDS ORDERED: DIAZEPAM 5 MG/ML 2 ML INJ IVP STA (19:27)
--- NOTE | 2018-01-09 19:49 | ED ---
General Adult HPI - General Chief complaint: Recheck/Abnormal Lab/Rx Stated complaint: HTN,migraine Time Seen by Provider: 01/09/18 17:43 Source: patient, RN notes reviewed Mode of arrival: ambulatory Limitations: no limitations - History of Present Illness Initial comments: This a 47-year-old female presented emergency department for multiple complaints. Patient states that she's had ongoing headaches and blood pressure issues ever since receiving medication for MS infusion. Patient states that she called her neurologist today who advised to go emergency department again for her symptoms. She states that she has a morphine pump. Patient has been evaluated in the emergency department and admitted for symptoms in the past. Patient has no focal weakness. Patient has had recent MRI of her thoracic and lumbar region which showed degenerative changes and bulging disks. Patient states that she is not taking much [id number] medications because he usually does not work. - Related Data Home Medications Medication Instructions Recorded Confirmed Albuterol Sulfate [Proair Hfa] 2 puff INHALATION RT-Q6H PRN 09/26/15 01/09/18 Atorvastatin [Lipitor] 10 mg PO DAILY 09/26/15 01/09/18 Diclofenac Sodium [Voltaren Gel] 4 gm TOPICAL DAILY PRN 09/26/15 01/09/18 Levothyroxine Sodium [Synthroid] 100 mcg PO QAM 02/24/16 01/09/18 Morphine Pain Pump 8.35 mg EPIDURAL DAILY 06/22/16 01/09/18 metFORMIN HCL [Metformin HCl] 250 mg PO DAILY 08/31/16 01/09/18 DULoxetine HCL [Cymbalta] 60 mg PO QAM 01/10/17 01/09/18 Butalb/Acetaminophen/Caffeine 1 cap PO AC-TID PRN 01/16/17 01/09/18 [Esgic 50-325-40 Capsule] Ipratropium-Albuterol Nebulize 3 ml INHALATION RT-QID PRN 01/16/17 01/09/18 [Duoneb 0.5 mg-3 mg/3 ml Soln] INSULIN LISPRO (HumaLOG) [humaLOG] See Protocol SQ ACHS PRN 01/19/17 01/09/18 Cholecalciferol [Vitamin D3] 1,000 unit PO MOWE 03/03/17 01/09/18 Metoclopramide [Reglan] 10 mg PO QID PRN 03/03/17 01/09/18 Baclofen [Lioresal] 20 mg PO QID 04/26/17 01/09/18 tiZANidine HCL [Zanaflex] 2 mg PO QID 06/15/17 01/09/18 Scopolamine 1.5MG/72Hr Patch 1 patch TRANSDERM Q72H 07/07/17 01/09/18 [TransDerm Scop] rOPINIRole HCL [Requip] 1 mg PO TID 10/30/17 01/09/18 Metoprolol Tartrate [Lopressor] 25 mg PO BID 01/09/18 01/09/18 Previous Rx's Medication Instructions Recorded Montelukast [Singulair] 10 mg PO DAILY #30 tab 06/23/16 Omeprazole 40 mg PO DAILY #60 capsule. 07/12/17 Lisinopril [Zestril] 20 mg PO DAILY #30 tab 12/19/17 Allergies Allergy/AdvReac Type Severity Reaction Status Date / Time adhesive Allergy Severe Rash/Hives Verified 01/09/18 17:24 adhesive tape Allergy Severe Rash/Hives Verified 01/09/18 17:24 fentanyl Allergy Severe Rash/Hives Verified 01/09/18 17:24 latex Allergy Severe Rash/Hives Verified 01/09/18 17:24 Review of Systems ROS Statement: Those systems with pertinent positive or pertinent negative responses have been documented in the HPI. ROS Other: All systems not noted in ROS Statement are negative. Past Medical History Past Medical History: Asthma, Diabetes Mellitus, Hypertension, Musculoskeletal Disorder, Neurologic Disorder, Thyroid Disorder Additional Past Medical History / Comment(s): MS, back pain, DEGENERATIVE DISC DISEASE History of Any Multi-Drug Resistant Organisms: None Reported Past Surgical History: Bladder Surgery, Hernia Repair, Hysterectomy, Orthopedic Surgery, Tubal Ligation Additional Past Surgical History / Comment(s): rhinoplasty, bladder suspension, breast sx, morphine pump , RT KNEE SCOPE, TUMMY TUCK, SCS DEVICE INSERTED AND REMOVED-DOES NOT HAVE T-11 IN SPINE. Past Anesthesia/Blood Transfusion Reactions: Motion Sickness, Postoperative Nausea & Vomiting (PONV) Past Psychological History: No Psychological Hx Reported Smoking Status: Never smoker Past Alcohol Use History: None Reported Past Drug Use History: None Reported - Past Family History Father Family Medical History: Hypertension Mother History Unknown: Yes Family Medical History: No Reported History, Unable to Obtain Additional Family Medical History / Comment(s): NO FAMILY HISTORY General Exam Limitations: no limitations General appearance: alert, in no apparent distress Head exam: Present: atraumatic, normocephalic, normal inspection Eye exam: Present: normal appearance, PERRL, EOMI. Absent: scleral icterus, conjunctival injection, periorbital swelling ENT exam: Present: normal exam, normal oropharynx, mucous membranes moist, TM's normal bilaterally, normal external ear exam Neck exam: Present: normal inspection, full ROM. Absent: tenderness, meningismus, lymphadenopathy Respiratory exam: Present: normal lung sounds bilaterally. Absent: respiratory distress, wheezes, rales, rhonchi, stridor Cardiovascular Exam: Present: regular rate, normal rhythm, normal heart sounds. Absent: systolic murmur, diastolic murmur, rubs, gallop, clicks Neurological exam: Present: alert, oriented X3, CN II-XII intact, reflexes normal. Absent: motor sensory deficit Skin exam: Present: warm, dry, intact, normal color. Absent: rash Course Vital Signs 01/09/18 01/09/18 01/09/18 17:09 19:14 19:58 Temperature 98.4 F Pulse Rate 107 H Respiratory 18 19 Rate Blood Pressure 151/92 182/70 119/80 O2 Sat by Pulse 99 Oximetry Medical Decision Making - Medical Decision Making 47-year-old female presented for multiple complaints to emergency from. Primary complaint was headache. Patient states that she was told it was related to her blood pressure which was 150/90. Patient has normal neuro exam. Patient was given IV medications and has improved. She states that her headache has resolved and no exam remains unremarkable. Patient states that she has "MS symptoms" which she states are numb since tingling and restless legs of her lower extremities but she does have MRI which shows bulging disc and she's had a history of lumbar radiculopathy. Patient will follow-up with neurology tomorrow she was given a prescription by her neurologist today for increase of her blood pressure medication and which she'll continue palpation. Return parameters were discussed. Disposition Clinical Impression: Chronic headaches, Hypertension, Lumbar radicular syndrome Disposition: HOME SELF-CARE Condition: Stable Instructions: Acute Headache (ED) Additional Instructions: Please return to the Emergency Department if symptoms worsen or any other concerns. Is patient prescribed a controlled substance at d/c from ED?: No Referrals: Robbie Recio MD [Primary Care Provider] - 1-2 days Time of Disposition: 20:07
[2018-01-09] MEDS ORDERED: methylPREDNISolone SOD SUCCI 125 MG/2 ML VIAL IV STA (20:07)
[2018-01-09 20:28] VITALS: BP 123/73; PULSE 82; RESP 18; TEMP 98.2
== END 2018-01-09 20:28 | disposition home or self-care (01) ==
LOC: EC 17:07
DX: M54.16 Radiculopathy, lumbar region (principal); I10 Essential (primary) hypertension; R51 Headache; G89.29 Other chronic pain; E11.9 Type 2 diabetes mellitus without complications; J45.909 Unspecified asthma, uncomplicated; G35 Multiple sclerosis; Z79.891 Long term (current) use of opiate analgesic; Z79.899 Other long term (current) drug therapy; Z79.4 Long term (current) use of insulin; Z91.040 Latex allergy status; Z91.048 Other nonmedicinal substance allergy status; Z88.8 Allergy status to other drugs, medicaments and biological substances; Z87.898 Personal history of other specified conditions
CPT/HCPCS: 99284; 96374; 96375 ×6; 96361; J1200; J2360; J2765; J2930; J3360; J1885; J1170

== ENCOUNTER 2018-01-11 03:35 | Observation (INO) | payer BC, MEDICARE ==
[2018-01-11] MEDS ORDERED: KETOROLAC 30 MG/ML 1 ML VIAL IVP STA (04:45)
[2018-01-11] MEDS ORDERED: diphenhydrAMINE 50 MG/ML 1 ML VIAL IVP STA (04:45)
[2018-01-11] MEDS ORDERED: METOCLOPRAMIDE 5 MG/ML 2 ML VIAL IVP STA (04:45)
--- NOTE | 2018-01-11 04:54 | ED ---
Headache HPI - General Chief Complaint: Headache Stated Complaint: Headache Time Seen by Provider: 01/11/18 04:14 Mode of arrival: ambulatory Limitations: no limitations - History of Present Illness Initial Comments: This patient is a 47-year-old woman who presents to be evaluated for headache. She describes it as frontal and retro-orbital. The pain is a burning type of pain and also aching. She describes this as being similar to previous MS flares though not exactly identical. She states pain is severe. She has tried her home medications without relief. She has found no relieving factors but does get worse with light. No fever or chills. No neck stiffness. MD Complaint: headache -: days(s) Onset Description: gradual Location: diffuse Severity: moderate Quality: aching, throbbing Consistency: constant Improves With: nothing Worsens With: none Context: occurred at rest Treatments Prior to Arrival: none - Related Data Home Medications Medication Instructions Recorded Confirmed Albuterol Sulfate [Proair Hfa] 2 puff INHALATION RT-Q6H PRN 09/26/15 01/11/18 Atorvastatin [Lipitor] 10 mg PO DAILY 09/26/15 01/11/18 Diclofenac Sodium [Voltaren Gel] 4 gm TOPICAL DAILY PRN 09/26/15 01/11/18 Levothyroxine Sodium [Synthroid] 100 mcg PO QAM 02/24/16 01/11/18 Morphine Pain Pump 8.35 mg EPIDURAL DAILY 06/22/16 01/11/18 metFORMIN HCL [Metformin HCl] 250 mg PO DAILY 08/31/16 01/11/18 DULoxetine HCL [Cymbalta] 60 mg PO QAM 01/10/17 01/11/18 Butalb/Acetaminophen/Caffeine 1 cap PO AC-TID PRN 01/16/17 01/11/18 [Esgic 50-325-40 Capsule] Ipratropium-Albuterol Nebulize 3 ml INHALATION RT-QID PRN 01/16/17 01/11/18 [Duoneb 0.5 mg-3 mg/3 ml Soln] INSULIN LISPRO (HumaLOG) [humaLOG] See Protocol SQ ACHS PRN 01/19/17 01/11/18 Cholecalciferol [Vitamin D3] 1,000 unit PO MOWE 03/03/17 01/11/18 Metoclopramide [Reglan] 10 mg PO QID PRN 03/03/17 01/11/18 Baclofen [Lioresal] 20 mg PO QID 04/26/17 01/11/18 tiZANidine HCL [Zanaflex] 2 mg PO QID 06/15/17 01/11/18 Scopolamine 1.5MG/72Hr Patch 1 patch TRANSDERM Q72H 07/07/17 01/11/18 [TransDerm Scop] rOPINIRole HCL [Requip] 1 mg PO TID 10/30/17 01/11/18 Metoprolol Tartrate [Lopressor] 25 mg PO BID 01/09/18 01/11/18 Previous Rx's Medication Instructions Recorded Montelukast [Singulair] 10 mg PO DAILY #30 tab 06/23/16 Omeprazole 40 mg PO DAILY #60 capsule. 07/12/17 Lisinopril [Zestril] 20 mg PO DAILY #30 tab 12/19/17 Allergies Allergy/AdvReac Type Severity Reaction Status Date / Time adhesive Allergy Severe Rash/Hives Verified 01/11/18 08:21 adhesive tape Allergy Severe Rash/Hives Verified 01/11/18 08:21 fentanyl Allergy Severe Rash/Hives Verified 01/11/18 08:21 latex Allergy Severe Rash/Hives Verified 01/11/18 08:21 Review of Systems ROS Statement: Those systems with pertinent positive or pertinent negative responses have been documented in the HPI. ROS Other: All systems not noted in ROS Statement are negative. Constitutional: Denies: fever, chills, weakness Eyes: Denies: eye pain, eye discharge, vision change ENT: Denies: ear pain, congestion Respiratory: Denies: cough, dyspnea Cardiovascular: Denies: chest pain, palpitations, edema, syncope Gastrointestinal: Reports: nausea. Denies: abdominal pain, vomiting Musculoskeletal: Denies: back pain Skin: Denies: rash Neurological: Reports: as per HPI, headache. Denies: weakness, numbness, paresthesias Past Medical History Past Medical History: Asthma, Diabetes Mellitus, Hypertension, Musculoskeletal Disorder, Neurologic Disorder, Thyroid Disorder Additional Past Medical History / Comment(s): MS, back pain, DEGENERATIVE DISC DISEASE History of Any Multi-Drug Resistant Organisms: None Reported Past Surgical History: Bladder Surgery, Hernia Repair, Hysterectomy, Orthopedic Surgery, Tubal Ligation Additional Past Surgical History / Comment(s): rhinoplasty, bladder suspension, breast sx, morphine pump , RT KNEE SCOPE, TUMMY TUCK, SCS DEVICE INSERTED AND REMOVED-DOES NOT HAVE T-11 IN SPINE. Past Anesthesia/Blood Transfusion Reactions: Motion Sickness, Postoperative Nausea & Vomiting (PONV) Past Psychological History: No Psychological Hx Reported Smoking Status: Never smoker Past Alcohol Use History: None Reported Past Drug Use History: None Reported - Past Family History Father Family Medical History: Hypertension Mother History Unknown: Yes Family Medical History: No Reported History, Unable to Obtain Additional Family Medical History / Comment(s): NO FAMILY HISTORY General Exam Limitations: no limitations General appearance: alert, in no apparent distress, obese Head exam: Present: atraumatic, normocephalic Eye exam: Present: normal appearance, EOMI. Absent: scleral icterus, conjunctival injection Pupils: Present: other (Unable to perform funduscopic exam secondary to photophobia) ENT exam: Present: normal oropharynx, mucous membranes dry Neck exam: Present: normal inspection, full ROM. Absent: meningismus Respiratory exam: Present: normal lung sounds bilaterally. Absent: respiratory distress, wheezes, rales, rhonchi, stridor Cardiovascular Exam: Present: regular rate, normal rhythm, normal heart sounds. Absent: systolic murmur, diastolic murmur, rubs, gallop Neurological exam: Present: alert, oriented X3, CN II-XII intact. Absent: motor sensory deficit Skin exam: Present: warm, dry, intact, normal color. Absent: rash Course Vital Signs 01/11/18 01/11/18 01/11/18 03:43 06:30 07:46 Temperature 98.7 F 97 F L Pulse Rate 80 77 76 Respiratory 20 18 18 Rate Blood Pressure 152/90 129/85 130/99 O2 Sat by Pulse 98 98 97 Oximetry Medical Decision Making - Medical Decision Making Patient is a 47-year-old woman with intractable headache. We were not achieving good symptom relief. Discussed with Dr. Recio, who will admit with neurology consult. Patient started on steroid therapy here. - Lab Data Result diagrams: 01/11/18 13:38 01/11/18 13:38 Disposition Clinical Impression: Exacerbation of multiple sclerosis, Intractable headache Disposition: ADMITTED IP TO THIS HOSP Condition: Fair Is patient prescribed a controlled substance at d/c from ED?: No
[2018-01-11] MEDS ORDERED: methylPREDNISolone SOD SUCCI 125 MG/2 ML VIAL IV STA (06:20)
[2018-01-11] MEDS ORDERED: NALOXONE 0.4 MG/ML 1 ML VIAL IV PRN (06:56)
[2018-01-11] MEDS ORDERED: DICLOFENAC SODIUM GEL 100 GM TUBE TOPICAL PRN (07:12)
[2018-01-11] MEDS ORDERED: METOCLOPRAMIDE 10 MG TAB PO PRN (07:12)
[2018-01-11 10:42] LABS: Glucose,Whole Blood 180 mg/dL (75-99)
[2018-01-11] MEDS: BUTALB/APAP/CAFF 50-325-40MG TAB PO PRN (10:42)
[2018-01-11] MEDS: BACLOFEN 10 MG TAB PO SCH ×4 (10:45→22:51)
[2018-01-11] MEDS: LEVOTHYROXINE 100 MCG TAB PO SCH (10:45)
[2018-01-11] MEDS: ATORVASTATIN 10 MG TAB PO SCH (10:45)
[2018-01-11] MEDS: DULoxetine HCL 60 MG CAPSULE.DR PO SCH (10:46)
[2018-01-11] MEDS: FAMOTIDINE 20 MG TAB PO SCH ×2 (10:47→22:50)
[2018-01-11] MEDS: LISINOPRIL 20 MG TAB PO SCH (10:47)
[2018-01-11] MEDS: METOPROLOL TARTRATE 25 MG TAB PO SCH ×2 (10:48→22:51)
[2018-01-11] MEDS: MONTELUKAST 10 MG TAB PO SCH (10:48)
[2018-01-11] MEDS: SCOPOLAMINE 1.5MG/72HR PATCH TRANSDERM SCH (10:49)
[2018-01-11] MEDS: metFORMIN 500 MG TAB PO SCH (10:56)
[2018-01-11] MEDS: ONDANSETRON 4 MG/2 ML VIAL IVP PRN (10:57)
[2018-01-11 11:33] LABS: Glucose,Whole Blood 214 mg/dL (75-99)
[2018-01-11] MEDS ORDERED: ALBUTEROL NEBULIZED 2.5 MG/3 ML INHALATION PRN (12:37)
--- NOTE | 2018-01-11 13:06 | P.HPIM ---
History of Present Illness H&P Date: 01/11/18 Chief Complaint: Intractable headache 47-year-old female well-known to Dr. Recio, this patient presented to the hospital with intractable headache secondary to infusion for multiple sclerosis, patient states that her MS is a progressive type of MS and she was going to need infusion ever since the first infusion patient has complained of significant retractable headache. Patient also has history of lumbar radiculopathy as well as history of migraine headaches Review of Systems Constitutional: Reports chronic headaches, Reports weight gain Ears, nose, mouth and throat: Reports as per HPI, Reports ant. neck pain Breasts: bilateral: as per HPI (History of breast reduction and then subsequent implant placement bilaterally) Cardiovascular: Reports as per HPI Respiratory: Reports as per HPI Gastrointestinal: Reports as per HPI Genitourinary: Reports as per HPI Menstruation: Reports as per HPI Musculoskeletal: Reports low back pain, Reports myalgias, Reports neck pain Integumentary: Reports as per HPI Neurological: Reports headaches Psychiatric: Reports anxiety attacks, Reports depression, Reports insomnia, Reports irritability (Secondary to multiple sclerosis) Past Medical History Past Medical History: Asthma, Diabetes Mellitus, Hypertension, Musculoskeletal Disorder, Neurologic Disorder, Thyroid Disorder Additional Past Medical History / Comment(s): Pt recently admitted to [facility] on with palpitations/mental confusion/unsteady gait/general malaise/L sided weakness/acute exacerbation of MS, chest pain, intractable migraine, occipital neuritis with nerve block. Other hx: Multiple sclerosis, hyperglycemia with steroid use, chronic migraines, chronic back pain/DDD, RLS, hypothyroid, missing T 11 d/t pain pump (now out). History of Any Multi-Drug Resistant Organisms: None Reported Past Surgical History: Bladder Surgery, Hernia Repair, Hysterectomy, Orthopedic Surgery, Tubal Ligation Additional Past Surgical History / Comment(s): rhinoplasty, bladder suspension, bilateral breast reduction then implants, morphine pain pump-out now , RT KNEE SCOPE, TUMMY TUCK, abdominal hernia repair, low back nerve blocks, 12/2017 occipital nerve block. Past Anesthesia/Blood Transfusion Reactions: Motion Sickness, Postoperative Nausea & Vomiting (PONV) Smoking Status: Never smoker - Past Family History Father History Unknown: Yes Family Medical History: Unable to Obtain Additional Family Medical History / Comment(s): Pt left home as a teen and does not know parents PMH Mother History Unknown: Yes Family Medical History: Unable to Obtain Additional Family Medical History / Comment(s): Pt left home as a teen and does not know mother or father PMH Medications and Allergies Home Medications Medication Instructions Recorded Confirmed Type RX: Albuterol Sulfate [Proair Hfa] 2 puff INHALATION RT-Q6H PRN 09/26/15 History RX: Atorvastatin [Lipitor] 10 mg PO DAILY 09/26/15 01/11/18 History RX: Diclofenac Sodium [Voltaren 4 gm TOPICAL DAILY PRN 09/26/15 01/11/18 History Gel] RX: Levothyroxine Sodium 100 mcg PO QAM 02/24/16 01/11/18 History [Synthroid] Morphine Pain Pump 8.35 mg EPIDURAL DAILY 06/22/16 01/11/18 History RX: Montelukast [Singulair] 10 mg PO DAILY #30 tab 06/23/16 01/11/18 Rx RX: metFORMIN HCL [Metformin HCl] 250 mg PO DAILY 08/31/16 01/11/18 History RX: DULoxetine HCL [Cymbalta] 60 mg PO QAM 01/10/17 01/11/18 History RX: Butalb/Acetaminophen/Caffeine 1 cap PO AC-TID PRN 01/16/17 01/11/18 History [Esgic 50-325-40 Capsule] RX: Ipratropium-Albuterol Nebulize 3 ml INHALATION RT-QID PRN 01/16/17 01/11/18 History [Duoneb 0.5 mg-3 mg/3 ml Soln] RX: INSULIN LISPRO (HumaLOG) See Protocol SQ ACHS PRN 01/19/17 01/11/18 History [humaLOG] RX: Cholecalciferol [Vitamin D3] 1,000 unit PO MOWE 03/03/17 01/11/18 History RX: Metoclopramide [Reglan] 10 mg PO QID PRN 03/03/17 01/11/18 History RX: Baclofen [Lioresal] 20 mg PO QID 04/26/17 01/11/18 History RX: tiZANidine HCL [Zanaflex] 2 mg PO QID 06/15/17 01/11/18 History RX: Scopolamine 1.5MG/72Hr Patch 1 patch TRANSDERM Q72H 04/06/18 10/11/18 History [TransDerm Scop] RX: Omeprazole 40 mg PO DAILY #60 capsule. 07/12/17 01/11/18 Rx RX: rOPINIRole HCL [Requip] 1 mg PO TID 10/30/17 01/11/18 History RX: Lisinopril [Zestril] 20 mg PO DAILY #30 tab 12/19/17 01/11/18 Rx Metoprolol Tartrate [Lopressor] 25 mg PO BID 01/09/18 01/11/18 History Allergies Allergy/AdvReac Type Severity Reaction Status Date / Time adhesive Allergy Severe Rash/Hives Verified 01/11/18 08:21 adhesive tape Allergy Severe Rash/Hives Verified 01/11/18 08:21 fentanyl Allergy Severe Rash/Hives Verified 01/11/18 08:21 latex Allergy Severe Rash/Hives Verified 01/11/18 08:21 Physical Exam Osteopathic Statement: *. No significant issues noted on an osteopathic structural exam other than those noted in the History and Physical/Consult. Vitals: Vital Signs Temp Pulse Resp BP Pulse Ox 01/11/18 07:46 97 F L 76 18 130/99 97 01/11/18 06:30 77 18 129/85 98 01/11/18 03:43 98.7 F 80 20 152/90 98 Intake and Output 01/10/18 01/11/18 01/11/18 22:59 06:59 14:59 Other: Weight 106.594 kg General: [Patient awake, alert and oriented times 3. Patient in no acute distress.] HEENT: [PERRL. EOMI. No pharyngeal erythema or exudate.] Neck: [No adenopathy.] Cardiac: [Heart regular in rate and rhythm. No S3. No S4. No clicks, rubs. No murmur.] Lungs: [Clear to auscultation bilaterally.] Abdomen: [No mass. No organomegaly. Bowel sounds presnt and normoactive in all 4 quadrants.] Extremes: [No edema no cyanosis no claudication normal pulses] Morbid obesity Musculoskeletal: [No joint erythema, edema or tenderness.] Skin: [No rash.] Neurologic: [No lateralizing deficits. CN II - XII grossly intact.] Lymphatic: [No adenopathy.] Results Results: We'll obtain baseline labs Labs: Abnormal Lab Results - Last 24 Hours (Table) 01/11/18 01/11/18 Range/Units 10:40 11:32 POC Glucose (mg/dL) 180 H 214 H (75-99) mg/dL Thrombosis Risk Factor Assmnt - Choose All That Apply Any of the Below Risk Factors Present?: Yes Each Factor Represents 1 point: Age 41-60 years, Obesity (BMI >25) Other Risk Factors: No Other congenital or acquired thrombophilia - If yes, enter type in comment: No Thrombosis Risk Factor Assessment Total Risk Factor Score: 2 Thrombosis Risk Factor Assessment Level: Low Risk Assessment and Plan (1) Chronic headaches Current Visit: No Status: Acute Code(s): R51 - HEADACHE SNOMED Code(s): 995053357 (2) Exacerbation of multiple sclerosis Current Visit: No Status: Acute Code(s): G35 - MULTIPLE SCLEROSIS SNOMED Code(s): 189543573 Plan: Chronic intractable migraines Will give patient IV Tylenol currently has morphine infusion pump reluctant to give patient more opiates Waiting on neurology for evaluation and recommendations Will obtain baseline labs including CBC basic metabolic panel and thyroid stimulating hormone Will reevaluate patient tomorrow Time with Patient: Greater than 30
[2018-01-11 14:18] LABS: Basophils % (A) 1 %; Eosinophils % (A) 0 %; HCT 38.3 % (34.0-46.0); HGB 12.2 gm/dL (11.4-16.0); Lymphocytes # (A) 1.1 k/uL (1.0-4.8); Lymphocytes % (A) 13 %; MCH 29.4 pg (25.0-35.0); Mean Platelet Volume 7.3; Monocytes # (A) 0.1 k/uL (0-1.0); Monocytes % (A) 1 %; Neutrophils % (A) 84 %; Platelet Count 359 k/uL (150-450); RBC 4.16 m/uL (3.80-5.40); RDW 14.2 % (11.5-15.5); WBC 8.3 k/uL (3.8-10.6)
[2018-01-11 14:28] LABS: Anion Gap 9 mmol/L; Blood Urea Nitrogen 15 mg/dL (7-17); Calcium 9.1 mg/dL (8.4-10.2); Carbon Dioxide 24 mmol/L (22-30); Chloride 106 mmol/L (98-107); Glucose 250 mg/dL (74-99); Potassium 4.4 mmol/L (3.5-5.1); Sodium 139 mmol/L (137-145)
[2018-01-11] MEDS: ACETAMINOPHEN IV (For NPO) 1,000 MG in EMPTY BAG 1 BAG IVPB PRN ×2 (14:54→22:57)
[2018-01-11] MEDS ORDERED: diphenhydrAMINE 25 MG CAP PO PRN (16:59)
[2018-01-11 17:06] LABS: Glucose,Whole Blood 203 mg/dL (75-99)
[2018-01-11] MEDS ORDERED: diphenhydrAMINE 50 MG CAP PO PRN (17:58)
[2018-01-11] MEDS: INSULIN ASPART 100 UNIT/ML 1 ML 10 ML VIAL SQ SCH ×2 (18:06→22:50)
[2018-01-11 20:06] LABS: Glucose,Whole Blood 185 mg/dL (75-99)
[2018-01-11] MEDS: ALPRAZolam 0.25 MG TAB PO PRN (22:49)
[2018-01-11] MEDS: hydrALAZINE HCL 25 MG TAB PO SCH (22:50)
[2018-01-11] MEDS: diphenhydrAMINE 50 MG/ML 1 ML VIAL IVP SCH (23:48)
[2018-01-12] MEDS: methylPREDNISolone SOD SUCCI 250 MG in SODIUM CHLORIDE 0.9% 100 ML IVPB SCH ×5 (00:15→23:41)
--- NOTE | 2018-01-12 01:49 | P.CNNES ---
History of Present Illness Consult date: 01/11/18 Reason for Consult: Patient admitted with headache and MS exacerbation. History of Present Illness: This patient is a 47-year-old right-handed white female who has a history of underlying multiple sclerosis. Patient was just recently admitted to Hospital on 12/16/2017 for MS exacerbation and headaches. She was treated with IV Solu- Medrol during that course of treatment and did fairly well and was discharged home. More recently she has had flareup of her MS-like symptoms including blurred vision, headache, chronic low back pain. Patient states that these are her typical symptoms with each of her MS exacerbations. The patient is followed in the outpatient clinic by Dr. No. She went to see him on Monday of this last week and was found to have evidence of hypertensive urgency. Blood pressure was 168/112. This is quite elevated for her and she was advised to talk to her primary care physician to increase her antihypertensive medications. During this office visit her most recent MRI of the lumbar spine done on 12/21/2017 was also reviewed and reveals significant arthritic changes with a large disc herniation. She was advised to seek out neurosurgical or orthopedic spine surgery for further management. The patient has noted a slight increase in her MS exacerbations over the last several months. She is being considered for more aggressive MS therapy with the use of Ocrevus. The patient has history of occipital neuritis in the past as well. She does feel she needs a redo injection for the occipital nerve pain as well. Dr. No's office and schedule this only towards the end of January. We are recommending the patient to have occipital nerve block procedure done tomorrow by anesthesia while she is still an inpatient. She will require 3 days of IV Solu-Medrol therapy. we have also recommended a pain management consultation to be done for her. She did seem to respond to IV Solu-Medrol therapy last month. As noted she has been noticing the frequency and intensity of the storms have been increasing. The patient is aware of her chronic low back pain symptoms and her recent MRI of the lumbar spine. She is to be referred to a building specialist for further treatment and management. Her overall prognosis remains guarded. We will continue to monitor this patient's overall condition closely during this admission. Review of Systems Constitutional: Denies chills, Denies fever Eyes: denies blurred vision, denies pain Ears, nose, mouth and throat: Denies headache, Denies sore throat Cardiovascular: Denies chest pain, Denies shortness of breath Respiratory: Denies cough Gastrointestinal: Denies abdominal pain, Denies diarrhea, Denies nausea, Denies vomiting Genitourinary: Denies dysuria, Denies hematuria Musculoskeletal: Denies myalgias Integumentary: Denies pruritus, Denies rash Neurological: Reports confusion, Reports headaches, Reports migraines, Reports paresthesias, Reports spasticity, Reports tingling, Denies numbness, Denies weakness Psychiatric: Denies anxiety, Denies depression Endocrine: Denies fatigue, Denies weight change Past Medical History Past Medical History: Asthma, Diabetes Mellitus, Hypertension, Musculoskeletal Disorder, Neurologic Disorder, Thyroid Disorder Additional Past Medical History / Comment(s): Pt recently admitted to [facility] on with palpitations/mental confusion/unsteady gait/general malaise/L sided weakness/acute exacerbation of MS, chest pain, intractable migraine, occipital neuritis with nerve block. Other hx: Multiple sclerosis, hyperglycemia with steroid use, chronic migraines, chronic back pain/DDD, RLS, hypothyroid, missing T 11 d/t pain pump (now out). History of Any Multi-Drug Resistant Organisms: None Reported Past Surgical History: Bladder Surgery, Hernia Repair, Hysterectomy, Orthopedic Surgery, Tubal Ligation Additional Past Surgical History / Comment(s): rhinoplasty, bladder suspension, bilateral breast reduction then implants, morphine pain pump-out now , RT KNEE SCOPE, TUMMY TUCK, abdominal hernia repair, low back nerve blocks, 12/2017 occipital nerve block. Past Anesthesia/Blood Transfusion Reactions: Motion Sickness, Postoperative Nausea & Vomiting (PONV) Smoking Status: Never smoker - Past Family History Father History Unknown: Yes Family Medical History: Unable to Obtain Additional Family Medical History / Comment(s): Pt left home as a teen and does not know parents PMH Mother History Unknown: Yes Family Medical History: Unable to Obtain Additional Family Medical History / Comment(s): Pt left home as a teen and does not know mother or father PMH Medications and Allergies Home Medications Medication Instructions Recorded Confirmed Type Albuterol Sulfate [Proair Hfa] 2 puff INHALATION RT-Q6H PRN 09/26/15 01/11/18 History Atorvastatin [Lipitor] 10 mg PO DAILY 09/26/15 01/11/18 History Diclofenac Sodium [Voltaren Gel] 4 gm TOPICAL DAILY PRN 09/26/15 01/11/18 History Levothyroxine Sodium [Synthroid] 100 mcg PO QAM 02/24/16 01/11/18 History Morphine Pain Pump 8.35 mg EPIDURAL DAILY 06/22/16 01/11/18 History Montelukast [Singulair] 10 mg PO DAILY #30 tab 06/23/16 01/11/18 Rx metFORMIN HCL [Metformin HCl] 250 mg PO DAILY 08/31/16 01/11/18 History DULoxetine HCL [Cymbalta] 60 mg PO QAM 01/10/17 01/11/18 History Butalb/Acetaminophen/Caffeine 1 cap PO AC-TID PRN 01/16/17 01/11/18 History [Esgic 50-325-40 Capsule] Ipratropium-Albuterol Nebulize 3 ml INHALATION RT-QID PRN 01/16/17 01/11/18 History [Duoneb 0.5 mg-3 mg/3 ml Soln] INSULIN LISPRO (HumaLOG) [humaLOG] See Protocol SQ ACHS PRN 01/19/17 01/11/18 History Cholecalciferol [Vitamin D3] 1,000 unit PO MOWE 03/03/17 01/11/18 History Metoclopramide [Reglan] 10 mg PO QID PRN 03/03/17 01/11/18 History Baclofen [Lioresal] 20 mg PO QID 04/26/17 01/11/18 History tiZANidine HCL [Zanaflex] 2 mg PO QID 06/15/17 01/11/18 History Scopolamine 1.5MG/72Hr Patch 1 patch TRANSDERM Q72H 07/07/17 01/11/18 History [TransDerm Scop] Omeprazole 40 mg PO DAILY #60 capsule. 07/12/17 01/11/18 Rx rOPINIRole HCL [Requip] 1 mg PO TID 10/30/17 01/11/18 History Lisinopril [Zestril] 20 mg PO DAILY #30 tab 12/19/17 01/11/18 Rx Metoprolol Tartrate [Lopressor] 25 mg PO BID 01/09/18 01/11/18 History Allergies Allergy/AdvReac Type Severity Reaction Status Date / Time adhesive Allergy Severe Rash/Hives Verified 01/11/18 08:21 adhesive tape Allergy Severe Rash/Hives Verified 01/11/18 08:21 fentanyl Allergy Severe Rash/Hives Verified 01/11/18 08:21 latex Allergy Severe Rash/Hives Verified 01/11/18 08:21 Physical Examination - Vital Signs Vital Signs: Vital Signs Temp Pulse Pulse Resp BP BP Pulse Ox 01/11/18 21:50 98.9 F 85 16 111/55 95 01/11/18 14:12 97.5 F L 81 20 124/67 95 01/11/18 08:00 98.6 F 73 20 127/83 95 01/11/18 07:46 97 F L 76 18 130/99 97 01/11/18 06:30 77 18 129/85 98 01/11/18 03:43 98.7 F 80 20 152/90 98 Intake and Output 01/11/18 01/11/18 01/12/18 14:59 22:59 06:59 Other: # Voids 2 - Constitutional General appearance: average body habitus, cooperative - EENT EENT: PERRL, mucous membranes moist - Respiratory Respiratory: lungs clear, normal breath sounds - Cardiovascular Cardiovascular: regular rate, normal S1, normal S2 Extremities: no peripheral edema bilaterally - Gastrointestinal Gastrointestinal: normoactive bowel sounds - Integumentary Integumentary: normal - Neurologic Cranial nerve examination: PERRL, EOMI, VFF, anisocoria, nystagmus, V1/V2/V3 grossly intact, face symmetric, tongue midline, intact gag reflex, intact corneal reflex, normal palatal elevation Speech examination: intact Sensorimotor examination: intact Motor examination - right side: 3/5: biceps, triceps, wrist flexion, wrist extension, vice investigator, hip flexors, knee extensors, dorsiflexion, toe extension (EHL) , plantarflexion Motor examination - left side: 3/5: biceps, triceps, wrist flexion, wrist extension, vice investigator, hip flexors, knee extensors, dorsiflexion, toe extension (EHL) , plantarflexion Detailed sensory examination: intact Reflex and gait examination: intact Reflexes: 1+: ankle, bicep, knee, tricep - Musculoskeletal Musculoskeletal: no pain - Psychiatric Psychiatric: mood/affect appropriate, cooperative Results - Laboratory Findings CBC and BMP: 01/11/18 13:38 01/11/18 13:38 Abnormal Lab Findings: Abnormal Labs 01/11/18 01/11/18 01/11/18 10:40 11:32 13:38 Glucose 250 H POC Glucose (mg/dL) 180 H 214 H 01/11/18 01/11/18 17:05 20:00 Glucose POC Glucose (mg/dL) 203 H 185 H Assessment and Plan (1) Chronic headaches Current Visit: No Status: Acute Code(s): R51 - HEADACHE SNOMED Code(s): 292526621 (2) Exacerbation of multiple sclerosis Current Visit: No Status: Acute Code(s): G35 - MULTIPLE SCLEROSIS SNOMED Code(s): 461733556 Plan: This patient is a 47-year-old female who was admitted today to the hospital for treatment and management of acute MS exacerbation. Patient has been having blurred vision and increase in paresthesias and numbness causing her some alarm. She was brought into the emergency room subsequently admitted to hospital under the care of Dr. Patton. She continues to do quite well overall now that her bladder symptoms have been treated. She has been started on IV Solu-Medrol for 3 day course of treatment. She is being considered for newer treatments for MS is well including the use of Ocrevus. Due to the acute nature of her MS exacerbation she will continue on IV steroid therapy for 3 days. Her overall prognosis at this time remains very guarded. Time with Patient: Greater than 30
[2018-01-12] MEDS: diphenhydrAMINE 50 MG/ML 1 ML VIAL IVP SCH ×4 (05:43→21:58)
[2018-01-12] MEDS: LEVOTHYROXINE 100 MCG TAB PO SCH (05:44)
[2018-01-12 07:09] LABS: Glucose,Whole Blood 215 mg/dL (75-99)
[2018-01-12] MEDS: BACLOFEN 10 MG TAB PO SCH ×4 (07:49→20:39)
[2018-01-12] MEDS: hydrALAZINE HCL 25 MG TAB PO SCH ×2 (07:49→20:39)
[2018-01-12] MEDS: MONTELUKAST 10 MG TAB PO SCH (07:49)
[2018-01-12] MEDS: METOPROLOL TARTRATE 25 MG TAB PO SCH ×2 (07:50→20:39)
[2018-01-12] MEDS: LISINOPRIL 20 MG TAB PO SCH (07:50)
[2018-01-12] MEDS: DULoxetine HCL 60 MG CAPSULE.DR PO SCH (07:51)
[2018-01-12] MEDS: FAMOTIDINE 20 MG TAB PO SCH ×2 (07:51→20:39)
[2018-01-12] MEDS: ATORVASTATIN 10 MG TAB PO SCH (07:51)
[2018-01-12] MEDS: metFORMIN 500 MG TAB PO SCH (07:51)
[2018-01-12] MEDS: INSULIN ASPART 100 UNIT/ML 1 ML 10 ML VIAL SQ SCH ×4 (07:53→20:38)
[2018-01-12] MEDS: MORPHINE EPIDURAL SCH (07:54)
--- NOTE | 2018-01-12 10:19 | P.PN ---
Subjective Progress Note Date: 01/12/18 Patient seen and examined at the bedside. Patient states her headache is currently 9/10. She states her morphine pump does not help with her headache. She reports the only thing that helps with her pain is "the cocktail they gave me in ER that had dilaudid in it and some other stuff ". She did receive IV tylenol which she states did not help the pain. She states her weakness is slowly improving. She remains on IV steroids per neurology. She denies chest pain or pressure. Denies shortness of breath. Vital signs have been stable. Objective - Vital Signs Vital signs: Vital Signs Temp 98.4 F 01/12/18 05:03 Pulse 80 01/12/18 05:03 Resp 16 01/12/18 05:03 BP 143/81 01/12/18 05:03 Pulse Ox 94 L 01/12/18 05:03 Intake & Output 01/11/18 01/12/18 01/12/18 18:59 06:59 18:59 Intake Total 1900 Balance 1900 Weight 106.594 kg Intake: Intake, IV Titration 100 Amount methylPREDNISolone SOD 100 SUCCI 250 mg In Sodium Chloride 0.9% 100 ml @ 100 mls/hr IVPB Q6HR [facility] Rx#:[id number] Oral 1800 Other: Voiding Method Toilet Toilet # Voids 2 1 - Constitutional General appearance: Present: cooperative, no acute distress - EENT Eyes: Present: PERRLA - Neck Neck: Present: normal ROM - Respiratory Respiratory: bilateral: CTA, negative: rales, rhonchi, wheezing - Cardiovascular Rhythm: regular Heart sounds: normal: S1, S2 - Gastrointestinal General gastrointestinal: Present: normal bowel sounds, soft - Integumentary Integumentary: Present: normal - Neurologic Neurologic: Present: CNII-XII intact - Musculoskeletal Musculoskeletal: Present: generalized weakness - Psychiatric Psychiatric: Present: A&O x's 3, appropriate affect - Labs CBC & Chem 7: 01/11/18 13:38 01/11/18 13:38 Labs: Abnormal Lab Results - Last 24 Hours (Table) 01/11/18 01/11/18 01/11/18 Range/Units 10:40 11:32 13:38 Glucose 250 H (74-99) mg/dL POC Glucose (mg/dL) 180 H 214 H (75-99) mg/dL 01/11/18 01/11/18 01/12/18 Range/Units 17:05 20:00 07:07 Glucose (74-99) mg/dL POC Glucose (mg/dL) 203 H 185 H 215 H (75-99) mg/dL Assessment and Plan Plan: ASSESSMENT: Chronic headache, patient reports due to MS medication Ocrevus Acute exacerbation of multiple sclerosis Hypertension Diabetes mellitus, type II Hypothyroidism Obesity: BMI 35.7 Chronic pain syndrome with implantation of morphine pain pump PLAN: Neurology on consult. Appreciate recommendations and input Continue IV steroids per neurology Anesthesia consulted for occipital nerve block and pain management. Await recommendations Avoid use of additional narcotics due to patients morphine pain pump and risk for respiratory depression. May use additional non-narcotic pain options but patient declining at this time Home meds as appropriate Monitor labs GI prophylaxis: Pepcid 20 mg by mouth twice a day DVT prophylaxis: SCDs to bilateral lower extremities Monitor vital signs and address as appropriate Discharge planning: Patient to return home when stable Further recommendations pending patient's course Nurse practitioner note has been reviewed by physician. Signing provider agrees with the documented findings, assessment, and plan of care.
[2018-01-12 11:16] LABS: Glucose,Whole Blood 229 mg/dL (75-99)
[2018-01-12 15:25] LABS: Hemoglobin A1C 6.7 % (4.0-6.0)
[2018-01-12] MEDS: BUTALB/APAP/CAFF 50-325-40MG TAB PO PRN (15:37)
[2018-01-12 17:28] LABS: Glucose,Whole Blood 176 mg/dL (75-99)
[2018-01-12 20:27] LABS: Glucose,Whole Blood 199 mg/dL (75-99)
[2018-01-12] MEDS: ONDANSETRON 4 MG/2 ML VIAL IVP PRN (20:39)
[2018-01-13] MEDS: BUTALB/APAP/CAFF 50-325-40MG TAB PO PRN ×2 (00:06→12:46)
[2018-01-13] MEDS: ALPRAZolam 0.25 MG TAB PO PRN ×2 (03:45→11:27)
[2018-01-13] MEDS: methylPREDNISolone SOD SUCCI 250 MG in SODIUM CHLORIDE 0.9% 100 ML IVPB SCH ×3 (05:19→17:06)
[2018-01-13] MEDS: diphenhydrAMINE 50 MG/ML 1 ML VIAL IVP SCH ×3 (05:21→17:06)
[2018-01-13] MEDS: LEVOTHYROXINE 100 MCG TAB PO SCH (05:25)
[2018-01-13 05:44] VITALS: RESP 18
[2018-01-13 06:56] LABS: Glucose,Whole Blood 225 mg/dL (75-99)
[2018-01-13] MEDS: INSULIN ASPART 100 UNIT/ML 1 ML 10 ML VIAL SQ SCH ×4 (08:20→21:23)
[2018-01-13] MEDS: MONTELUKAST 10 MG TAB PO SCH (11:09)
[2018-01-13] MEDS: metFORMIN 500 MG TAB PO SCH (11:09)
[2018-01-13] MEDS: LISINOPRIL 20 MG TAB PO SCH (11:09)
[2018-01-13] MEDS: METOPROLOL TARTRATE 25 MG TAB PO SCH ×2 (11:09→21:23)
[2018-01-13] MEDS: FAMOTIDINE 20 MG TAB PO SCH ×2 (11:10→21:23)
[2018-01-13] MEDS: ATORVASTATIN 10 MG TAB PO SCH (11:10)
[2018-01-13] MEDS: hydrALAZINE HCL 25 MG TAB PO SCH ×2 (11:10→21:23)
[2018-01-13] MEDS: BACLOFEN 10 MG TAB PO SCH ×4 (11:10→21:23)
[2018-01-13] MEDS: DULoxetine HCL 60 MG CAPSULE.DR PO SCH (11:11)
[2018-01-13 11:39] LABS: Glucose,Whole Blood 234 mg/dL (75-99)
[2018-01-13] MEDS: MORPHINE EPIDURAL SCH (12:59)
[2018-01-13 17:21] LABS: Glucose,Whole Blood 182 mg/dL (75-99)
[2018-01-13 20:26] LABS: Glucose,Whole Blood 201 mg/dL (75-99)
[2018-01-13 22:44] VITALS: TEMP 98.2
[2018-01-14] MEDS ORDERED: diphenhydrAMINE 50 MG/ML 1 ML VIAL IVP SCH (03:11)
[2018-01-14] MEDS: methylPREDNISolone SOD SUCCI 250 MG in SODIUM CHLORIDE 0.9% 100 ML IVPB SCH ×2 (03:15→05:30)
[2018-01-14] MEDS: IPRATROPIUM-ALBUTEROL 3 ML NEB INHALATION PRN ×3 (03:28→12:10)
[2018-01-14] MEDS: diphenhydrAMINE 50 MG/ML 1 ML VIAL IVP SCH ×3 (04:20→12:36)
[2018-01-14] MEDS: LEVOTHYROXINE 100 MCG TAB PO SCH (05:30)
[2018-01-14 06:22] VITALS: BP 132/81
[2018-01-14 06:29] LABS: Glucose,Whole Blood 177 mg/dL (75-99)
[2018-01-14] MEDS: INSULIN ASPART 100 UNIT/ML 1 ML 10 ML VIAL SQ SCH ×2 (07:54→12:35)
[2018-01-14] MEDS: metFORMIN 500 MG TAB PO SCH (08:07)
[2018-01-14] MEDS: SCOPOLAMINE 1.5MG/72HR PATCH TRANSDERM SCH (08:07)
[2018-01-14] MEDS: MONTELUKAST 10 MG TAB PO SCH (08:07)
[2018-01-14] MEDS: BACLOFEN 10 MG TAB PO SCH ×2 (08:07→12:36)
[2018-01-14] MEDS: LISINOPRIL 20 MG TAB PO SCH (08:08)
[2018-01-14] MEDS: ATORVASTATIN 10 MG TAB PO SCH (08:08)
[2018-01-14] MEDS: DULoxetine HCL 60 MG CAPSULE.DR PO SCH (08:08)
[2018-01-14] MEDS: FAMOTIDINE 20 MG TAB PO SCH (08:08)
[2018-01-14] MEDS: hydrALAZINE HCL 25 MG TAB PO SCH (08:08)
[2018-01-14] MEDS: METOPROLOL TARTRATE 25 MG TAB PO SCH (08:08)
[2018-01-14] MEDS: ALPRAZolam 0.25 MG TAB PO PRN (08:16)
[2018-01-14] MEDS: MORPHINE EPIDURAL SCH (08:31)
--- NOTE | 2018-01-14 10:15 | P.PN ---
Subjective Progress Note Date: 01/13/18 This patient is a 47 year old female admitted for acute MS exacerbation and pain management. The patient has evidence of bilateral occipital neuritis and we did request a consultation with anesthesia for bilateral occipital nerve block treatment as well as pain management. Unfortunately the anesthesia Department cannot see her until Monday of this coming week. The patient states she is also been having increasing back pain and we did review her recent MRI study of the lumbar spine that was done on 12/21/2017 which reveals evidence of a large right disc herniation at L5-S1. Given the findings on the MRI she is requesting neurosurgical consultation at [facility]. Apparently her neurologist recommended she should be seen in the neurosurgery clinic given her MRI findings. We have recommended the patient to discuss this with her attending physician Dr. Rivera. Patient states she still would like to be considered for transfer as soon as possible when a bed may be available. We will initiate this request of the patient and will contact the administrative charge tomorrow morning to help make arrangements for her transfer. Her overall prognosis at this time remains very guarded. Objective - Vital Signs Vital signs: Vital Signs Temp 98.5 F 01/13/18 12:49 Pulse 78 01/13/18 21:00 Resp 18 01/13/18 21:00 BP 151/90 01/13/18 21:00 Pulse Ox 93 L 01/13/18 12:49 Intake & Output 01/13/18 01/13/18 01/14/18 06:59 18:59 06:59 Intake Total 700 250 Balance 700 250 Intake: Intake, IV Titration 100 Amount methylPREDNISolone SOD 100 SUCCI 250 mg In Sodium Chloride 0.9% 100 ml @ 100 mls/hr IVPB Q6HR [facility] Rx#:[id number] Oral 600 250 Other: Voiding Method Toilet Toilet # Voids 3 3 - Exam Physical Examination: PHYSICAL EXAMINATION: Patient is resting comfortably in bed. VITAL SIGNS: Blood pressure is [157/89]. Heart rate is [85]. Respiration is [18] . Temperature is [98.5]. HEENT: Head is atraumatic, neck is supple, there were no carotid bruits. CHEST: Lungs are clear to auscultation and percussion. CARDIAC: S1, S2 normal rate and rhythm. There is no murmur. ABDOMEN: Soft and nontender. Bowel sounds are present. EXTREMITIES: There is no pedal edema. Peripheral pulses are present. Neurological examination: Patient's neurological examination is unchanged from yesterday.atient states her headache pain is slilling of the face earli back pain still is problematic for her causing moderate to severe pain and discomfort. - Labs CBC & Chem 7: 01/11/18 13:38 01/11/18 13:38 Labs: Abnormal Lab Results - Last 24 Hours (Table) 01/13/18 01/13/18 01/13/18 Range/Units 06:55 11:38 17:20 POC Glucose (mg/dL) 225 H 234 H 182 H (75-99) mg/dL 01/13/18 Range/Units 20:25 POC Glucose (mg/dL) 201 H (75-99) mg/dL Assessment and Plan (1) Chronic headaches Current Visit: No Status: Acute Code(s): R51 - HEADACHE SNOMED Code(s): 014113051 (2) Exacerbation of multiple sclerosis Current Visit: Yes Status: Acute Code(s): G35 - MULTIPLE SCLEROSIS SNOMED Code(s): 860460747 Plan: This patient is a 47-year-old female who was admitted today to the hospital for treatment and management of acute MS exacerbation. Patient has been having blurred vision and increase in paresthesias and numbness causing her some alarm. She was brought into the emergency room subsequently admitted to hospital under the care of Dr. Patton. She continues to do quite well overall now that her bladder symptoms have been treated. She has been started on IV Solu-Medrol for 3 day course of treatment. She is being considered for newer treatments for MS is well including the use of Ocrevus. Due to the acute nature of her MS exacerbation she will continue on IV steroid therapy for 3 days.he patient underwent recent MRI of the lumbar spine on 12/21/2017 which did reveal evidence of a large right disc herniation at L5-S1. This is causing her moderate to severe degree of back pain. The patient is requesting transfer to [facility] for neurosurgical consultation. We've recommended she should discuss this with her attending physician Dr. Rivera. Patient still would like to move forward with transfer plan hopefully for tomorrow morning. We will arrange for the administrative charged Carmen to help initiate transferred for this patient to [facility] neurosurgery. She should also be evaluated and treated for intractable headache. Her MS condition remains stable and she will complete a full five-day course of IV Solu-Medrol by the time she is discharged. Her overall prognosis at this time remains very guarded.
[2018-01-14 12:22] VITALS: PULSE 84
[2018-01-14] MEDS: BUTALB/APAP/CAFF 50-325-40MG TAB PO PRN (12:35)
[2018-01-14 12:38] LABS: Glucose,Whole Blood 276 mg/dL (75-99)
[2018-01-15] MEDS ORDERED: CHOLECALCIFEROL 1,000 UNIT TAB PO SCH (12:00)
== END 2018-01-14 13:30 ==
LOC: EC 03:35 → 5MS5E 07:12 → 4SSUR 01-14 11:50
PROVIDERS: ADMIT Family Medicine; ATTEND Family Medicine
DX: G43.919 Migraine, unspecified, intractable, without status migrainosus (principal); G35 Multiple sclerosis; E66.9 Obesity, unspecified; Z68.35 Body mass index [BMI] 35.0-35.9, adult; Z91.040 Latex allergy status; Z88.5 Allergy status to narcotic agent; Z91.048 Other nonmedicinal substance allergy status; J45.909 Unspecified asthma, uncomplicated; M51.16 Intervertebral disc disorders with radiculopathy, lumbar region; I10 Essential (primary) hypertension; E03.9 Hypothyroidism, unspecified; G89.4 Chronic pain syndrome; G25.81 Restless legs syndrome; M54.5 Low back pain; Z79.899 Other long term (current) drug therapy; Z79.890 Hormone replacement therapy; Z79.84 Long term (current) use of oral hypoglycemic drugs; Z79.4 Long term (current) use of insulin; Z82.49 Family history of ischemic heart disease and other diseases of the circulatory system; T50.995A Adverse effect of other drugs, medicaments and biological substances, initial encounter; Z96.41 Presence of insulin pump (external) (internal); E09.65 Drug or chemical induced diabetes mellitus with hyperglycemia; T38.0X5A Adverse effect of glucocorticoids and synthetic analogues, initial encounter
CPT/HCPCS: 96375 ×5; 96376 ×6; 99284 ×2; 96365; 96366 ×4; 96367; 94640 ×2; 80048; 84443; 85025; 83036; G0378 ×4; J1200 ×4; J2765; J2930 ×4; J2405 ×2; J1885; J0131

== ENCOUNTER 2018-02-06 21:54 | Inpatient (IN) | payer BC, MEDICARE ==
[2018-02-06] MEDS ORDERED: SODIUM CHLORIDE 0.9% 1,000 ML IV STA (23:19)
[2018-02-06] MEDS ORDERED: KETOROLAC 30 MG/ML 1 ML VIAL IVP STA (23:19)
[2018-02-06] MEDS ORDERED: diphenhydrAMINE 50 MG/ML 1 ML VIAL IVP STA (23:19)
[2018-02-06] MEDS ORDERED: METOCLOPRAMIDE 5 MG/ML 2 ML VIAL IVP STA (23:19)
[2018-02-06 23:39] LABS: Basophils % (A) 0 %; Eosinophils # (A) 0.4 k/uL (0-0.7); Eosinophils % (A) 5 %; HCT 36.9 % (34.0-46.0); HGB 12.3 gm/dL (11.4-16.0); Lymphocytes # (A) 2.3 k/uL (1.0-4.8); Lymphocytes % (A) 30 %; MCH 30.8 pg (25.0-35.0); MCHC 33.4 g/dL (31.0-37.0); MCV 92.2 fL (80.0-100.0); Mean Platelet Volume 7.2; Monocytes # (A) 0.4 k/uL (0-1.0); Monocytes % (A) 5 %; Neutrophils # (A) 4.5 k/uL (1.3-7.7); Neutrophils % (A) 58 %; Platelet Count 400 k/uL (150-450); RDW 14.5 % (11.5-15.5); WBC 7.8 k/uL (3.8-10.6)
[2018-02-06] MEDS: methylPREDNISolone SOD SUCCI 250 MG in SODIUM CHLORIDE 0.9% 100 ML IVPB STA ×2 (23:45→23:58)
[2018-02-06 23:52] LABS: Anion Gap 8 mmol/L; Blood Urea Nitrogen 15 mg/dL (7-17); Calcium 9.4 mg/dL (8.4-10.2); Carbon Dioxide 22 mmol/L (22-30); Chloride 111 mmol/L (98-107); Glucose 150 mg/dL (74-99); Potassium 3.9 mmol/L (3.5-5.1); Sodium 141 mmol/L (137-145)
--- NOTE | 2018-02-07 00:18 | ED ---
Headache HPI - General Source: RN notes reviewed, old records reviewed Mode of arrival: ambulatory Limitations: no limitations <Lesly Felton - Last Filed: 02/07/18 01:25> <Patti Bobby - Last Filed: 02/07/18 04:11> - General Chief Complaint: Headache Stated Complaint: Migraine & MS flare up Time Seen by Provider: 02/06/18 22:41 - History of Present Illness Initial Comments: Patient is a 47-year-old female with history of MS presents emergency Department due to complaint of migraine-like headache and MS exacerbation. Patient reports that she feels like her lower extremities are numb and tingling. Patient reports that he felt weak and restless. She also complains of increased blurry vision concern for occipital neuritis. Patient states that she was seen at this hospital and then transferred [facility] early in January and had an occipital nerve block completed. She reports that her symptoms were relieved at that time. Patient states that she's had an MS flare up today due to increased stressors at home. She's been an argument with her daughter. She' s had a go to court with her daughter today. Patient reports that the increased stresses cause this to be much worse. [facility] department today complaining of migraine. (Lesly Felton) - Related Data Home Medications Medication Instructions Recorded Confirmed Albuterol Sulfate [Proair Hfa] 2 puff INHALATION RT-Q6H PRN 09/26/15 02/06/18 Atorvastatin [Lipitor] 10 mg PO DAILY 09/26/15 02/06/18 Diclofenac Sodium [Voltaren Gel] 4 gm TOPICAL DAILY PRN 09/26/15 02/06/18 Levothyroxine Sodium [Synthroid] 100 mcg PO QAM 02/24/16 02/06/18 Morphine Pain Pump 8.35 mg EPIDURAL DAILY 06/22/16 02/06/18 metFORMIN HCL [Metformin HCl] 250 mg PO DAILY 08/31/16 02/06/18 DULoxetine HCL [Cymbalta] 60 mg PO QAM 01/10/17 02/06/18 Butalb/Acetaminophen/Caffeine 1 cap PO AC-TID PRN 01/16/17 02/06/18 [Esgic 50-325-40 Capsule] Ipratropium-Albuterol Nebulize 3 ml INHALATION RT-QID PRN 01/16/17 02/06/18 [Duoneb 0.5 mg-3 mg/3 ml Soln] INSULIN LISPRO (HumaLOG) [humaLOG] See Protocol SQ ACHS PRN 01/19/17 02/06/18 Cholecalciferol [Vitamin D3] 1,000 unit PO MOWE 03/03/17 02/06/18 Metoclopramide [Reglan] 10 mg PO QID PRN 03/03/17 02/06/18 Baclofen [Lioresal] 20 mg PO QID 04/26/17 02/06/18 tiZANidine HCL [Zanaflex] 2 mg PO QID 06/15/17 02/06/18 Scopolamine 1.5MG/72Hr Patch 1 patch TRANSDERM Q72H 07/07/17 02/06/18 [TransDerm Scop] rOPINIRole HCL [Requip] 1 mg PO TID 10/30/17 02/06/18 Metoprolol Tartrate [Lopressor] 25 mg PO BID 01/09/18 02/06/18 Gabapentin [Neurontin] 300 mg PO TID 02/06/18 02/06/18 Ketorolac [Toradol] 10 mg PO Q6HR PRN 02/06/18 02/06/18 Prochlorperazine [Compazine] 10 mg PO Q6H 02/06/18 02/06/18 Previous Rx's Medication Instructions Recorded Montelukast [Singulair] 10 mg PO DAILY #30 tab 06/23/16 Omeprazole 40 mg PO DAILY #60 capsule. 07/12/17 Lisinopril [Zestril] 20 mg PO DAILY #30 tab 12/19/17 Allergies Allergy/AdvReac Type Severity Reaction Status Date / Time adhesive Allergy Severe Rash/Hives Verified 02/06/18 22:12 adhesive tape Allergy Severe Rash/Hives Verified 02/06/18 22:12 fentanyl Allergy Severe Rash/Hives Verified 02/06/18 22:12 latex Allergy Severe Rash/Hives Verified 02/06/18 22:12 Review of Systems ROS Other: All systems not noted in ROS Statement are negative. <Lesly Felton - Last Filed: 02/07/18 01:25> ROS Other: All systems not noted in ROS Statement are negative. <Patti Bobby - Last Filed: 02/07/18 04:11> ROS Statement: Those systems with pertinent positive or pertinent negative responses have been documented in the HPI. Past Medical History Past Medical History: Asthma, Diabetes Mellitus, Hypertension, Musculoskeletal Disorder, Neurologic Disorder, Thyroid Disorder Additional Past Medical History / Comment(s): MS, back pain, DEGENERATIVE DISC DISEASE History of Any Multi-Drug Resistant Organisms: None Reported Past Surgical History: Bladder Surgery, Hernia Repair, Hysterectomy, Orthopedic Surgery, Tubal Ligation Additional Past Surgical History / Comment(s): rhinoplasty, bladder suspension, breast sx, morphine pump , RT KNEE SCOPE, TUMMY TUCK, SCS DEVICE INSERTED AND REMOVED-DOES NOT HAVE T-11 IN SPINE. Past Anesthesia/Blood Transfusion Reactions: Motion Sickness, Postoperative Nausea & Vomiting (PONV) Past Psychological History: No Psychological Hx Reported Smoking Status: Never smoker Past Alcohol Use History: None Reported Past Drug Use History: None Reported - Past Family History Father History Unknown: Yes Family Medical History: Hypertension Additional Family Medical History / Comment(s): Pt left home as a teen and does not know parents PMH Mother History Unknown: Yes Family Medical History: No Reported History, Unable to Obtain Additional Family Medical History / Comment(s): NO FAMILY HISTORY <Lesly Felton - Last Filed: 02/07/18 01:25> General Exam Limitations: no limitations General appearance: alert, in no apparent distress Head exam: Present: atraumatic, normocephalic, normal inspection Eye exam: Present: normal appearance, PERRL, EOMI. Absent: scleral icterus, conjunctival injection, periorbital swelling ENT exam: Present: normal exam Neck exam: Present: normal inspection. Absent: tenderness, meningismus, lymphadenopathy Respiratory exam: Present: normal lung sounds bilaterally. Absent: respiratory distress, wheezes, rales, rhonchi, stridor Cardiovascular Exam: Present: regular rate, normal rhythm, normal heart sounds. Absent: systolic murmur, diastolic murmur, rubs, gallop, clicks GI/Abdominal exam: Present: soft, normal bowel sounds. Absent: distended, tenderness, guarding, rebound, rigid Neurological exam: Present: alert, oriented X3 Expanded Patient oriented to: Present: person, place, time Speech: Present: fluid speech Cranial nerves: EOM's Intact: Normal Cerebellar function: Finger to Nose: Normal Upper motor neuron: Pronator Drift: Normal Sensory exam: Upper Extremity Light Touch: Normal, Lower Extremity Light Touch: Normal Motor strength exam: RUE: 5, LUE: 5, RLE: 5, LLE: 4 (Patient has decreased flexion and extension of the left foot.The right foot.) Eye Response: (4) open spontaneously Motor Response: (6) obeys commands Verbal Response: (5) oriented [place] Total: 15 Psychiatric exam: Present: normal affect, normal mood Skin exam: Present: warm, dry, intact, normal color. Absent: rash <Lesly Felton - Last Filed: 02/07/18 01:25> <Patti Bobby - Last Filed: 02/07/18 04:11> - General Exam Comments Initial Comments: 47-year-old female. Alert and oriented 3. Patient appears in no acute distress. (Lesly Felton) Course <Lesly Felton - Last Filed: 02/07/18 01:25> <Patti Bobby - Last Filed: 02/07/18 04:11> Vital Signs 02/06/18 02/07/18 02/07/18 21:56 00:59 01:41 Temperature 99.0 F Pulse Rate 111 H 97 85 Respiratory 20 16 16 Rate Blood Pressure 120/80 152/90 108/64 O2 Sat by Pulse 100 100 96 Oximetry - Reevaluation(s) Reevaluation #1: 02/07/18 01:22 is reevaluated this time. Patient's parents have somewhat of a dystonic reaction related clearly related to the Reglan dose for nausea. Patient is given Benadryl. Complaining of restless legs. Moving around the bed. ( Lesly Felton) Medical Decision Making - Lab Data Result diagrams: 02/06/18 22:56 02/06/18 22:56 <Lesly Felton - Last Filed: 02/07/18 01:25> - Lab Data Result diagrams: 02/06/18 22:56 02/06/18 22:56 <Patti Bobby P - Last Filed: 02/07/18 04:11> - Medical Decision Making 47-year-old female presents emergency department today and she played an MS exacerbation. Reports she's having some blurry vision complains of left lower extremity weakness. She reports that her typical and was at its vaccinations continue to have the left leg weakness. Patient also complains of migraine- like headache. She's been having a headache for the past 3 days. She is given IV fluids and laboratory obtained. Normal white count and normal chemistry panel. Patient's EKG was reviewed and normal. Patient was given migraine cocktail. She continues to state that she's having a significant headache. She was given Reglan and subsequently developed a dystonic reaction restless legs. She is given Benadryl and Norflex and Ativan. Patient was started on 250 mg of IV Solu-Medrol. Discussed that I would like the Patient at this time for increased leg weakness and concern for MS exacerbation. An intractable headache. She's had multiple CT scans and MRIs. She does not want to have a further computed tomography scan during this emergency department visit. ( Lesly Felton) Patient care was discussed with Dr. Arciniega who states the patient has been discharged from their service he recommends that if the patient requires admission he admitted to the on-call medicine service. Patient care was discussed with Dr. Linares of the [facility] [place] [facility] who accepts the admission. Patient was placed in observation for headache, MS exacerbation. (Patti Bobby) - Lab Data Lab Results 02/06/18 02/06/18 02/06/18 Range/Units 22:56 22:56 22:56 WBC 7.8 (3.8-10.6) k/uL RBC 4.00 (3.80-5.40) m/uL Hgb 12.3 (11.4-16.0) gm/dL Hct 36.9 (34.0-46.0) % MCV 92.2 (80.0-100.0) fL MCH 30.8 (25.0-35.0) pg MCHC 33.4 (31.0-37.0) g/dL RDW 14.5 (11.5-15.5) % Plt Count 400 (150-450) k/uL Neutrophils % 58 % Lymphocytes % 30 % Monocytes % 5 % Eosinophils % 5 % Basophils % 0 % Neutrophils # 4.5 (1.3-7.7) k/uL Lymphocytes # 2.3 (1.0-4.8) k/uL Monocytes # 0.4 (0-1.0) k/uL Eosinophils # 0.4 (0-0.7) k/uL Basophils # 0.0 (0-0.2) k/uL Sodium 141 (137-145) mmol/L Potassium 3.9 (3.5-5.1) mmol/L Chloride 111 H (98-107) mmol/L Carbon Dioxide 22 (22-30) mmol/L Anion Gap 8 mmol/L BUN 15 (7-17) mg/dL Creatinine 0.71 (0.52-1.04) mg/dL Est GFR (CKD-EPI)AfAm >90 (>60 ml/min/1.73 sqM) Est GFR (CKD-EPI)NonAf >90 (>60 ml/min/1.73 sqM) Glucose 150 H (74-99) mg/dL Calcium 9.4 (8.4-10.2) mg/dL Troponin I <0.012 (0.000-0.034) ng/mL 02/07/18 01:25 EKG shows normal sinus rhythm mobile distress. Prolonged QT. A normal EKG. Ventricular rate 95 bpm. NH interval is 122 ms. QRS ration 72 ms. QT QTC 390/ 4 and 90 ms. (Lesly Felton) Disposition Is patient prescribed a controlled substance at d/c from ED?: No Time of Disposition: 01:28 <Lelsy Felton - Last Filed: 02/07/18 01:25> <Patti Bobby - Last Filed: 02/07/18 04:11> Clinical Impression: Exacerbation of multiple sclerosis, Lower extremity weakness, Headache Disposition: ADMITTED IP TO THIS HOSP Condition: Stable
[2018-02-07] MEDS ORDERED: ORPHENADRINE 30 MG/ML 2 ML VIAL IVP STA (00:37)
[2018-02-07] MEDS ORDERED: LORazepam 2 MG/ML INJ IV STA (00:37)
[2018-02-07] MEDS: SODIUM CHLORIDE 0.9% 1,000 ML IV SCH ×3 (00:46→20:54)
[2018-02-07] MEDS ORDERED: IBUPROFEN 400 MG TAB PO PRN (01:28)
[2018-02-07] MEDS ORDERED: NALOXONE 0.4 MG/ML 1 ML VIAL IV PRN (01:28)
[2018-02-07] MEDS ORDERED: LORazepam 2 MG/ML INJ IV PRN (01:28)
[2018-02-07] MEDS ORDERED: ACETAMINOPHEN TAB 325 MG TAB PO PRN (01:28)
[2018-02-07] MEDS ORDERED: ONDANSETRON 4 MG/2 ML VIAL IVP PRN (01:28)
[2018-02-07] MEDS ORDERED: CHOLECALCIFEROL 1,000 UNIT TAB PO SCH (01:30)
[2018-02-07] MEDS ORDERED: NON-FORMULARY DRUG (Ketorolac 10 MG) PO PRN (01:30)
[2018-02-07] MEDS ORDERED: BUTALB/APAP/CAFF 50-325-40MG TAB PO PRN (01:30)
[2018-02-07] MEDS ORDERED: DICLOFENAC SODIUM GEL 100 GM TUBE TOPICAL PRN (01:30)
[2018-02-07] MEDS ORDERED: PROCHLORPERAZINE 10 MG TAB PO PRN (01:30)
[2018-02-07] MEDS ORDERED: MORPHINE SULFATE 4 MG/ML SYRINGE IVP STA (01:35)
[2018-02-07 03:09] VITALS: BMI 35.7
[2018-02-07] MEDS ORDERED: GABAPENTIN 300 MG CAP PO STA (04:02)
[2018-02-07] MEDS ORDERED: BACLOFEN 10 MG TAB PO PRN (04:03)
[2018-02-07] MEDS ORDERED: diphenhydrAMINE 25 MG CAP PO SCH (04:15)
[2018-02-07] MEDS: KETOROLAC 30 MG/ML 1 ML VIAL IVP PRN ×4 (04:28→23:47)
[2018-02-07] MEDS: methylPREDNISolone SOD SUCCI 250 MG in SODIUM CHLORIDE 0.9% 100 ML IVPB SCH ×4 (05:58→23:48)
[2018-02-07] MEDS: LEVOTHYROXINE 100 MCG TAB PO SCH (06:07)
[2018-02-07] MEDS ORDERED: diphenhydrAMINE 50 MG/ML 1 ML VIAL IVP PRN ×2 (06:13→18:16)
--- NOTE | 2018-02-07 06:46 | P.HPIM ---
History of Present Illness H&P Date: 02/07/18 Chief Complaint: Migraine headaches 47-year-old female with history of MS and migraines. Patient presented to the hospital mainly for migraine headaches. She reports multiple other comorbidities. She reports that her headache started 2 days back, she has called her doctor who her prescription for oral Toradol Compazine and Benadryl however she didn't get a chance to fill in the prescription. She felt that her headaches are getting worse sitting decided come the hospital. She describes the headache as typical mainly in the back of her head severe and was getting worse and becoming associated with blurry vision. Now she reports that she has history of MS and usually when she gets exacerbations she presents with worsening tingling and numbness in her lower extremities and blurry vision. She also describes the numbness and tingling in her lower extremities without any new onset weakness. And then she does report history of residual left upper extremity weakness from prior attacks. Her most recent flareup was back in early January when she presented with similar symptoms but then was transferred to [facility] to receive occipital nerve block for the migraine headaches. She reports that the procedure was successful and helped easing down her pain. She is going through a lot of stress in her life these days and she says this is typical precipitating factor for her MS flareups. In the emergency department she got the "headache "cocktail but then she had a reaction to the Reglan with worsening restless legs and dystonia. She was given Benadryl in the ED and helped resolve the symptoms. Patient also reports history of reaction to the Tegaderm in the hospital and requesting IV Benadryl otherwise she was started swelling up and her asthma with flareup 2. Patient also reports diarrhea this been going on for over a week however for today she didn't have any bowel movements yet as she didn't eat. She denies any fevers chills abdominal pain, denies any bloody bowel movements. She denies any recent traveling or in any unsanitary food. Patient also has morphine pump for her chronic back pain and also has scopolamine patch on from home. Currently she feels comfortable laying in bed denies any trouble breathing or any chest pain reports that her headache is improving but she continues to have blurry vision and bilateral lower extremity tingling up to the mid leg Review of Systems Pertinent positives as noted in HPI. All other systems were reviewed and are negative Past Medical History Past Medical History: Asthma, Diabetes Mellitus, Hypertension, Musculoskeletal Disorder, Neurologic Disorder, Thyroid Disorder Additional Past Medical History / Comment(s): MS, back pain, DEGENERATIVE DISC DISEASE History of Any Multi-Drug Resistant Organisms: None Reported Past Surgical History: Bladder Surgery, Hernia Repair, Hysterectomy, Orthopedic Surgery, Tubal Ligation Additional Past Surgical History / Comment(s): rhinoplasty, bladder suspension, breast sx, morphine pump , RT KNEE SCOPE, TUMMY TUCK, SCS DEVICE INSERTED AND REMOVED-DOES NOT HAVE T-11 IN SPINE. Past Anesthesia/Blood Transfusion Reactions: Motion Sickness, Postoperative Nausea & Vomiting (PONV) Past Psychological History: No Psychological Hx Reported Additional Psychological History / Comment(s): Pt resides with her spouse and a 16 yr old mindy. She has a glucometer. She is independent. Smoking Status: Never smoker Past Alcohol Use History: None Reported Past Drug Use History: None Reported - Past Family History Father History Unknown: Yes Family Medical History: Hypertension Additional Family Medical History / Comment(s): Pt left home as a teen and does not know parents PMH Mother History Unknown: Yes Family Medical History: No Reported History, Unable to Obtain Additional Family Medical History / Comment(s): NO FAMILY HISTORY Medications and Allergies Home Medications Medication Instructions Recorded Confirmed Type Albuterol Sulfate [Proair Hfa] 2 puff INHALATION RT-Q6H PRN 09/26/15 02/06/18 History Atorvastatin [Lipitor] 10 mg PO DAILY 09/26/15 02/06/18 History Diclofenac Sodium [Voltaren Gel] 4 gm TOPICAL DAILY PRN 09/26/15 02/06/18 History Levothyroxine Sodium [Synthroid] 100 mcg PO QAM 02/24/16 02/06/18 History Morphine Pain Pump 8.35 mg EPIDURAL DAILY 06/22/16 02/06/18 History Montelukast [Singulair] 10 mg PO DAILY #30 tab 06/23/16 02/06/18 Rx metFORMIN HCL [Metformin HCl] 250 mg PO DAILY 08/31/16 02/06/18 History DULoxetine HCL [Cymbalta] 60 mg PO QAM 01/10/17 02/06/18 History Butalb/Acetaminophen/Caffeine 1 cap PO AC-TID PRN 01/16/17 02/06/18 History [Esgic 50-325-40 Capsule] Ipratropium-Albuterol Nebulize 3 ml INHALATION RT-QID PRN 01/16/17 02/06/18 History [Duoneb 0.5 mg-3 mg/3 ml Soln] INSULIN LISPRO (HumaLOG) [humaLOG] See Protocol SQ ACHS PRN 01/19/17 02/06/18 History Cholecalciferol [Vitamin D3] 1,000 unit PO MOWE 03/03/17 02/06/18 History Metoclopramide [Reglan] 10 mg PO QID PRN 03/03/17 02/06/18 History Baclofen [Lioresal] 20 mg PO QID 04/26/17 02/06/18 History tiZANidine HCL [Zanaflex] 2 mg PO QID 06/15/17 02/06/18 History Scopolamine 1.5MG/72Hr Patch 1 patch TRANSDERM Q72H 07/07/17 02/06/18 History [TransDerm Scop] Omeprazole 40 mg PO DAILY #60 capsule. 07/12/17 02/06/18 Rx rOPINIRole HCL [Requip] 1 mg PO TID 10/30/17 02/06/18 History Lisinopril [Zestril] 20 mg PO DAILY #30 tab 12/19/17 02/06/18 Rx Metoprolol Tartrate [Lopressor] 25 mg PO BID 01/09/18 02/06/18 History Gabapentin [Neurontin] 300 mg PO TID 02/06/18 02/06/18 History Ketorolac [Toradol] 10 mg PO Q6HR PRN 02/06/18 02/06/18 History Prochlorperazine [Compazine] 10 mg PO Q6H 02/06/18 02/06/18 History Allergies Allergy/AdvReac Type Severity Reaction Status Date / Time adhesive Allergy Severe Rash/Hives Verified 02/06/18 22:12 adhesive tape Allergy Severe Rash/Hives Verified 02/06/18 22:12 fentanyl Allergy Severe Rash/Hives Verified 02/06/18 22:12 latex Allergy Severe Rash/Hives Verified 02/06/18 22:12 Physical Exam Vitals: Vital Signs Temp Pulse Pulse Resp BP BP Pulse Ox 02/07/18 03:20 98.2 F 85 17 112/75 95 02/07/18 02:36 88 97 02/07/18 01:41 85 16 108/64 96 02/07/18 00:59 97 16 152/90 100 02/06/18 21:56 99.0 F 111 H 20 120/80 100 Intake and Output 02/06/18 02/06/18 02/07/18 14:59 22:59 06:59 Intake Total 150 Balance 150 Intake: Intake, IV Titration 150 Amount Sodium Chloride 0.9% 1, 150 000 ml @ 100 mls/hr IV . Q10H [facility] Rx#:[id number] Other: Weight 106.594 kg 106.594 kg Constitutional: No acute distress, conversant, pleasant, obese Eyes: Anicteric sclerae, moist conjunctiva, no lid-lag Pupils equal round reactive to light ENMT: NC/AT Oropharynx clear, no erythema, or exudates Neck: Supple, FROM, no masses, or JVD No carotid bruits No thyromegaly Lungs: Clear to auscultation Clear to percussion Normal respiratory effort, no accessory muscle use Cardiovascular: Heart regular in rate and rhythm, No murmurs, gallops, or rubs No peripheral edema Abdominal: Soft Nontender, no guarding, rebound or rigidity Abdomen moving with respiration Normoactive bowel sounds No hepatomegaly, No splenomegaly No palpable mass No abdominal wall hernia noted Skin: Normal temperature, tone, texture, turgor No induration No subcutaneous nodules No rash, lesions No ulcers Extremities: No digital cyanosis No clubbing Pedal pulses intact and symmetrical Radial pulses intact and symmetrical No calf tenderness Psychiatric: Alert and oriented to person, place and time Appropriate affect fair judgment Neuro Muscles Strength 5/5 in all 4 extremities except for left upper extremity with strength 4 / 5 in both proximal and distal muscle groups Sensation to light touch grossly present throughout, except for reported dullness to sensation over bilateral feet Cranial nerves II-XII grossly intact Lymphatics: no palpable cervical or supraclavicular , or inguinal lymph nodes Results CBC & Chem 7: 02/06/18 22:56 02/06/18 22:56 Labs: Abnormal Lab Results - Last 24 Hours (Table) 02/06/18 Range/Units 22:56 Chloride 111 H (98-107) mmol/L Glucose 150 H (74-99) mg/dL Thrombosis Risk Factor Assmnt - Choose All That Apply Any of the Below Risk Factors Present?: No Other Risk Factors: No Other congenital or acquired thrombophilia - If yes, enter type in comment: No Thrombosis Risk Factor Assessment Level: Very Low Risk Assessment and Plan Assessment: 47-year-old female with history of MS and occipital headaches "migraine code, patient admitted as inpatient with anticipated length of stay more than 48 hours due to suspected MS flareup, and uncontrolled headaches. Patient was started on IV Solu-Medrol and was given NSAIDs for her headaches. Neurology's consult for further evaluation and recommendations. Most recent presentation back in January patient had to be transferred to [facility] for occipital nerve block which was done successfully. Patient admitted under [facility] as she was discharged from her regular team service Dr. Rivera Plan: Migraine headaches Acute flareup of MS Patient started on IV Solu-Medrol Toradol for pain control Neurochecks Neuro consult Full precautions Diabetes mellitus, on oral hypoglycemic, currently controlled Hold metformin Insulin sliding scale History of asthma, intermittent, currently stable DuoNeb's when necessary Hypothyroidism Continue levothyroxine Chronic low back pain Patient has morphine pump DVT prophylaxis Heparin subcu 3 times a day Hypertension currently stable continu home meds restless leg syndrome requip Obesity Outpatient follow-up, consider lifestyle modification Preformed a thorough record review from recent hospitalization is summarized in HPI Surrogate decision-maker: Patient has been met. CODE STATUS: Full code Discussed with: Patient, ER, RN Anticipated discharge: 48-[address]: Home A total of 55 minutes was spent on the care of this complex patient more than 50 % of the time was spent in counseling and care coordination.
[2018-02-07 07:07] LABS: Glucose,Whole Blood 199 mg/dL (75-99)
[2018-02-07] MEDS: INSULIN ASPART 100 UNIT/ML 1 ML 10 ML VIAL SQ SCH ×4 (07:46→20:54)
[2018-02-07] MEDS: LISINOPRIL 20 MG TAB PO SCH (08:30)
[2018-02-07] MEDS: METOPROLOL TARTRATE 25 MG TAB PO SCH ×2 (08:31→20:53)
[2018-02-07] MEDS: HEPARIN SODIUM,PORCINE 5,000 UNIT/ML 1 ML VIAL SQ SCH ×3 (08:38→23:48)
[2018-02-07] MEDS: BACLOFEN 10 MG TAB PO SCH ×4 (08:38→20:54)
[2018-02-07] MEDS: SCOPOLAMINE 1.5MG/72HR PATCH TRANSDERM SCH (08:38)
[2018-02-07] MEDS: ATORVASTATIN 10 MG TAB PO SCH (08:38)
[2018-02-07] MEDS: MONTELUKAST 10 MG TAB PO SCH (08:38)
[2018-02-07] MEDS: GABAPENTIN 300 MG CAP PO SCH ×3 (08:39→20:53)
[2018-02-07] MEDS: DULoxetine HCL 60 MG CAPSULE.DR PO SCH (08:39)
[2018-02-07] MEDS: MORPHINE EPIDURAL SCH (08:46)
[2018-02-07] MEDS ORDERED: NON-FORMULARY DRUG (Omeprazole [Omeprazole] 40 MG) PO SCH (09:00)
[2018-02-07] MEDS ORDERED: metFORMIN 500 MG TAB PO SCH (09:00)
[2018-02-07] MEDS ORDERED: TIZANIDINE HCL 2 MG PO SCH (09:00)
[2018-02-07] MEDS ORDERED: PANTOPRAZOLE 40 MG/10 ML VIAL IV SCH (09:00)
[2018-02-07] MEDS: oxyCODONE-APAP 5-325MG 1 EACH TAB PO PRN ×2 (11:31→20:53)
[2018-02-07 11:34] LABS: Glucose,Whole Blood 191 mg/dL (75-99)
[2018-02-07] MEDS ORDERED: diphenhydrAMINE 25 MG CAP PO PRN ×2 (14:43→23:50)
[2018-02-07 14:56] LABS: Hemoglobin A1C 6.3 % (4.0-6.0)
--- NOTE | 2018-02-07 15:58 | P.PN ---
Progress Note - Text Progress Note Date: 02/07/18 Hospital. The: Patient reports that her headache is slightly better. She reports that she had an occipital nerve block at [facility] approximately 3 weeks ago. They did state she would be a candidate for repeat block if needed. States her headache is getting better but still present. Still having blurry vision and an increased lower extremity numbness. Had tried new MS medication in December and has felt ill since that infusion. Is investigating id she will continue to see Dr. Recio on discharge. General: non toxic, no distress, appears at stated age Derm: warm, dry Head: atraumatic, normocephalic, symmetric Eyes: EOMI, no lid lag, anicteric sclera Mouth: no lip lesion, mucus membranes moist Cardiovascular: S1S2 reg, no murmur, positive posterior tibial pulse bilateral, Lungs: CTA bilateral, no rhonchi, no rales , no accessory muscle use Abdominal: soft, nontender to palpation, no guarding, no appreciable organomegaly Ext: no gross muscle atrophy, no edema, no contractures Neuro: CN II-XI grossly intact Psych: Alert, oriented, appropriate affect Medications reviewed. Continue current medications.
--- NOTE | 2018-02-07 16:09 | P.CON ---
Consult Note - . Consult date: 02/07/18 Assessment/Plan:: This is a 47-year-old lady with history of MS with current exacerbation. She also has occipital neuralgia with occipital headache that responded previously to occipital nerve block which lasted for about one month. By physical exam she is alert oriented 3 She has tenderness in the occipital area bilaterally. We will plan on doing occipital nerve block bilaterally with IV moderate conscious sedation tomorrow. The patient will be made nothing by mouth after midnight. I thank you for the consultation
[2018-02-07 17:02] LABS: Glucose,Whole Blood 193 mg/dL (75-99)
[2018-02-07 19:56] LABS: Glucose,Whole Blood 137 mg/dL (75-99)
--- NOTE | 2018-02-07 22:46 | P.CNNES ---
History of Present Illness Consult date: 02/07/18 Reason for Consult: Patient admitted with occipital neuritis and MS exacerbation. History of Present Illness: This patient is a 47-year-old right-handed white female who was brought into the emergency room at [facility] with a 2 day history of severe migraine headaches. Apparently 2 days ago she did contact her primary care physician for prescription for pain medication. She was unable to fill the prescription and apparently the headaches worsen. Due to the worsening severity of the headache pain she decided to come to the emergency room and was seen in the ER today by Dr. Bobby as well as the physician assistant quality manager Lesly Felton. Her headache pain was noted by the ER physician as mostly involving the occipital region of the head and neck area. She has a history of underlying multiple sclerosis which is usually exacerbated by any stress or occipital headache pain. Over the last few days the patient was also experiencing numbness and tingling in her lower extremities as well as blurriness in her vision. She feels these are her typical symptoms of acute MS exacerbation at the early onset of symptoms. She had a recent flareup of her MS with MS exacerbation in January of this year for which she was treated and then transferred to [facility] where she was treated for occipital neuritis with the occipital nerve block procedure. She was also complaining of back pain and this was also evaluated at [facility]. It was felt her back was moderate to severe degree of arthritic changes but she did not require any back surgery. She did have a adverse reaction to one of the newer MS medications which was given to her as IV infusion. She was treated with Ocrevus several months ago and had a very adverse reaction to this IV infusion. Patient also notices that stress will definitely exacerbate her MS condition as well. She has been under a great deal of stress recently due to family issues related to her daughter. She had to be in court with the daughter today and has been under a great deal of stress taking care of her daughter. This likely had worsened some of her MS symptoms as well. The patient was seen in the emergency room is noted and was given and a cocktail. One of the ingredients included Reglan for nausea vomiting and apparently she had a very bad adverse reaction to the Reglan and had a acute dystonic reaction. She was given Benadryl in the emergency room and her symptoms did gradually improve. The patient states that her chronic low back pain has been treated with a morphine pump. She is being followed in the outpatient clinics for this condition. Once again [facility] did not recommend any acute surgical intervention for her back pain. Patient states she is somewhat limited in what she can do due to the severity of her back pain. Soon after admission today she was evaluated by anesthesia for her occipital neuritis. Anesthesia is agreed to proceed with a bilateral occipital nerve brought procedure tomorrow which should be very helpful for her. Her last occipital nerve block procedure done at [facility] worked very well according to the patient for the past month. She was told that she may require repeat procedure with a occipital nerve block depending on her long-term course. The patient was started on IV Solu-Medrol today at a rate of 250 mg IV piggyback every 6 hours. We did recommend she be on these IV Solu-Medrol for at least 3 days. The patient otherwise seems to be coming along well. She is now been admitted and neurology has been consulted for further evaluation and recommendations. Review of Systems Constitutional: Reports as per HPI Eyes: denies blurred vision, denies pain Ears, nose, mouth and throat: Denies headache, Denies sore throat Cardiovascular: Denies chest pain, Denies shortness of breath Respiratory: Denies cough Gastrointestinal: Denies abdominal pain, Denies diarrhea, Denies nausea, Denies vomiting Genitourinary: Denies dysuria, Denies hematuria Musculoskeletal: Denies myalgias Integumentary: Denies pruritus, Denies rash Neurological: Reports headaches, Reports migraines, Reports paresthesias, Reports sensory deficit, Reports spasticity, Reports tingling, Denies numbness, Denies weakness Psychiatric: Reports irritability, Reports mood swings, Denies anxiety, Denies depression Endocrine: Denies fatigue, Denies weight change Past Medical History Past Medical History: Asthma, Diabetes Mellitus, Hypertension, Musculoskeletal Disorder, Neurologic Disorder, Thyroid Disorder Additional Past Medical History / Comment(s): MS, back pain, DEGENERATIVE DISC DISEASE History of Any Multi-Drug Resistant Organisms: None Reported Past Surgical History: Bladder Surgery, Hernia Repair, Hysterectomy, Orthopedic Surgery, Tubal Ligation Additional Past Surgical History / Comment(s): rhinoplasty, bladder suspension, breast sx, morphine pump , RT KNEE SCOPE, TUMMY TUCK, SCS DEVICE INSERTED AND REMOVED-DOES NOT HAVE T-11 IN SPINE. Past Anesthesia/Blood Transfusion Reactions: Motion Sickness, Postoperative Nausea & Vomiting (PONV) Past Psychological History: No Psychological Hx Reported Additional Psychological History / Comment(s): Pt resides with her spouse and a 16 yr old mindy. She has a glucometer. She is independent. Smoking Status: Never smoker Past Alcohol Use History: None Reported Past Drug Use History: None Reported - Past Family History Father History Unknown: Yes Family Medical History: Hypertension Additional Family Medical History / Comment(s): Pt left home as a teen and does not know parents PMH Mother History Unknown: Yes Family Medical History: No Reported History, Unable to Obtain Additional Family Medical History / Comment(s): NO FAMILY HISTORY Medications and Allergies Home Medications Medication Instructions Recorded Confirmed Type Albuterol Sulfate [Proair Hfa] 2 puff INHALATION RT-Q6H PRN 09/26/15 02/06/18 History Atorvastatin [Lipitor] 10 mg PO DAILY 09/26/15 02/06/18 History Diclofenac Sodium [Voltaren Gel] 4 gm TOPICAL DAILY PRN 09/26/15 02/06/18 History Levothyroxine Sodium [Synthroid] 100 mcg PO QAM 02/24/16 02/06/18 History Morphine Pain Pump 8.35 mg EPIDURAL DAILY 06/22/16 02/06/18 History Montelukast [Singulair] 10 mg PO DAILY #30 tab 06/23/16 02/06/18 Rx metFORMIN HCL [Metformin HCl] 250 mg PO DAILY 08/31/16 02/06/18 History DULoxetine HCL [Cymbalta] 60 mg PO QAM 01/10/17 02/06/18 History Butalb/Acetaminophen/Caffeine 1 cap PO AC-TID PRN 01/16/17 02/06/18 History [Esgic 50-325-40 Capsule] Ipratropium-Albuterol Nebulize 3 ml INHALATION RT-QID PRN 01/16/17 02/06/18 History [Duoneb 0.5 mg-3 mg/3 ml Soln] INSULIN LISPRO (HumaLOG) [humaLOG] See Protocol SQ ACHS PRN 01/19/17 02/06/18 History Cholecalciferol [Vitamin D3] 1,000 unit PO MOWE 03/03/17 02/06/18 History Metoclopramide [Reglan] 10 mg PO QID PRN 03/03/17 02/06/18 History Baclofen [Lioresal] 20 mg PO QID 04/26/17 02/06/18 History tiZANidine HCL [Zanaflex] 2 mg PO QID 06/15/17 02/06/18 History Scopolamine 1.5MG/72Hr Patch 1 patch TRANSDERM Q72H 07/07/17 02/06/18 History [TransDerm Scop] Omeprazole 40 mg PO DAILY #60 capsule.dr 07/12/17 02/06/18 Rx rOPINIRole HCL [Requip] 1 mg PO TID 10/30/17 02/06/18 History Lisinopril [Zestril] 20 mg PO DAILY #30 tab 12/19/17 02/06/18 Rx Metoprolol Tartrate [Lopressor] 25 mg PO BID 01/09/18 02/06/18 History Gabapentin [Neurontin] 300 mg PO TID 02/06/18 02/06/18 History Ketorolac [Toradol] 10 mg PO Q6HR PRN 02/06/18 02/06/18 History Prochlorperazine [Compazine] 10 mg PO Q6H 02/06/18 02/06/18 History Allergies Allergy/AdvReac Type Severity Reaction Status Date / Time adhesive Allergy Severe Rash/Hives Verified 02/06/18 22:12 adhesive tape Allergy Severe Rash/Hives Verified 02/06/18 22:12 fentanyl Allergy Severe Rash/Hives Verified 02/06/18 22:12 latex Allergy Severe Rash/Hives Verified 02/06/18 22:12 Physical Examination - Vital Signs Vital Signs: Vital Signs Temp Pulse Pulse Resp BP BP Pulse Ox 02/07/18 16:22 98.1 F 55 L 16 144/78 95 02/07/18 07:00 98.3 F 78 16 104/67 94 L 02/07/18 03:20 98.2 F 85 17 112/75 95 02/07/18 02:36 88 97 02/07/18 01:41 85 16 108/64 96 02/07/18 00:59 97 16 152/90 100 02/06/18 21:56 99.0 F 111 H 20 120/80 100 Intake and Output 11/07/18 11/07/18 11/07/18 06:59 14:59 22:59 Intake Total 150 Balance 150 Intake: Intake, IV Titration 150 Amount Sodium Chloride 0.9% 1, 150 000 ml @ 100 mls/hr IV . Q10H [facility] Rx#:[id number] Other: Voiding Method Toilet # Voids 3 Weight 106.594 kg - Constitutional General appearance: average body habitus, cooperative - EENT EENT: PERRL, mucous membranes moist - Respiratory Respiratory: lungs clear, normal breath sounds - Cardiovascular Cardiovascular: regular rate, normal S1, normal S2 Extremities: no peripheral edema bilaterally - Gastrointestinal Gastrointestinal: normoactive bowel sounds - Integumentary Integumentary: normal - Neurologic Cranial nerve examination: PERRL, EOMI, VFF, V1/V2/V3 grossly intact, face symmetric, intact gag reflex, intact corneal reflex, normal palatal elevation Speech examination: intact Sensorimotor examination: intact Motor examination - right side: 4/5: biceps, triceps, wrist flexion, wrist extension, electrician, hip flexors, knee extensors, dorsiflexion, toe extension (EHL) , plantarflexion Motor examination - left side: 4/5: biceps, triceps, wrist flexion, wrist extension, electrician, hip flexors, knee extensors, dorsiflexion, toe extension (EHL) , plantarflexion Detailed sensory examination: intact Reflex and gait examination: intact Reflexes: 1+: ankle, bicep, knee, tricep - Musculoskeletal Musculoskeletal: no pain - Psychiatric Psychiatric: mood/affect appropriate, cooperative Results - Laboratory Findings CBC and BMP: 02/06/18 22:56 02/06/18 22:56 Abnormal Lab Findings: Abnormal Labs 02/06/18 02/06/18 02/07/18 22:56 22:56 06:55 Chloride 111 H Glucose 150 H POC Glucose (mg/dL) 199 H Hemoglobin A1c 6.3 H 02/07/18 02/07/18 11:23 16:58 Chloride Glucose POC Glucose (mg/dL) 191 H 193 H Hemoglobin A1c Assessment and Plan (1) Exacerbation of multiple sclerosis Current Visit: Yes Status: Acute Code(s): G35 - MULTIPLE SCLEROSIS SNOMED Code(s): 522838264 (2) Occipital neuritis Current Visit: No Status: Acute Code(s): M54.81 - OCCIPITAL NEURALGIA SNOMED Code(s): 62459482 (3) Chronic headaches Current Visit: No Status: Acute Code(s): R51 - HEADACHE SNOMED Code(s): 675896498 (4) Lumbar radicular syndrome Current Visit: No Status: Acute Code(s): M54.16 - RADICULOPATHY, LUMBAR REGION SNOMED Code(s): 028472184 (5) Migraine Current Visit: No Status: Acute Code(s): G43.909 - MIGRAINE, UNSP, NOT INTRACTABLE, WITHOUT STATUS MIGRAINOSUS SNOMED Code(s): 61941677 (6) Paresthesias Current Visit: No Status: Acute Code(s): R20.2 - PARESTHESIA OF SKIN SNOMED Code(s): 81884005 Plan: This patient is a 47-year-old female with a long-standing history of relapsing remitting form of multiple sclerosis. Her last MS exacerbation was in January of this year. Patient over the last 2 days had recurrent severe occipital headache pain. She recently underwent a occipital nerve block procedure to [facility] in January. This worked very well for the past 1 month. Patient decided to come to the emergency room as her headache pain was becoming unmanageable at home. She was seen in the ER and was given a headache cocktail unfortunately she had a side effect to the Reglan. She was treated for acute dystonic reaction and was given Benadryl and did seem to come out fairly well. The patient has been on various treatments for her MS over the years. More recently she had been given an infusion of Ocrevus. This treatment unfortunately caused a severe side effect and she has not been able to go back to this new or treatment plan. She is considering to restart on one of the interferons most likely Copaxone in the past. The patient otherwise was recommended admission to the hospital. She was seen by anesthesia earlier today and they're agreeable to perform a bilateral occipital nerve block procedure for this patient. She may also require other trigger point injections to the shoulder region. We will have the patient continue on IV Solu -Medrol 250 mg IV piggyback every 6 hours for 3 days. We will await her occipital nerve block procedure to be done tomorrow morning and we will monitor for any further intervention as needed. This patient's overall prognosis at this time remains guarded. Time with Patient: Greater than 30
[2018-02-08] MEDS ORDERED: diphenhydrAMINE 50 MG/ML 1 ML VIAL IVP PRN (05:17)
[2018-02-08] MEDS: methylPREDNISolone SOD SUCCI 250 MG in SODIUM CHLORIDE 0.9% 100 ML IVPB SCH ×4 (05:23→23:43)
[2018-02-08] MEDS: LEVOTHYROXINE 100 MCG TAB PO SCH (05:23)
[2018-02-08] MEDS: oxyCODONE-APAP 5-325MG 1 EACH TAB PO PRN ×2 (05:23→15:34)
[2018-02-08 07:06] LABS: Glucose,Whole Blood 190 mg/dL (75-99)
[2018-02-08] MEDS: KETOROLAC 30 MG/ML 1 ML VIAL IVP PRN ×3 (07:21→21:26)
[2018-02-08] MEDS: SODIUM CHLORIDE 0.9% 1,000 ML IV SCH ×2 (09:02→18:25)
[2018-02-08] MEDS: HEPARIN SODIUM,PORCINE 5,000 UNIT/ML 1 ML VIAL SQ SCH ×3 (09:03→23:43)
[2018-02-08] MEDS: INSULIN ASPART 100 UNIT/ML 1 ML 10 ML VIAL SQ SCH ×4 (09:03→21:25)
[2018-02-08] MEDS: BACLOFEN 10 MG TAB PO SCH ×4 (09:04→21:26)
[2018-02-08] MEDS: MONTELUKAST 10 MG TAB PO SCH (09:04)
[2018-02-08] MEDS: ATORVASTATIN 10 MG TAB PO SCH (09:04)
[2018-02-08] MEDS: LISINOPRIL 20 MG TAB PO SCH (09:04)
[2018-02-08] MEDS: DULoxetine HCL 60 MG CAPSULE.DR PO SCH (09:05)
[2018-02-08] MEDS: METOPROLOL TARTRATE 25 MG TAB PO SCH ×2 (09:05→21:25)
[2018-02-08] MEDS: PANTOPRAZOLE 40 MG TABLET PO SCH (09:05)
[2018-02-08] MEDS: GABAPENTIN 300 MG CAP PO SCH ×3 (09:05→21:26)
[2018-02-08] MEDS: MORPHINE EPIDURAL SCH (09:06)
[2018-02-08] MEDS ORDERED: diphenhydrAMINE 25 MG CAP PO PRN (10:35)
--- NOTE | 2018-02-08 11:54 | P.PN ---
Subjective Progress Note Date: 02/08/18 Principal diagnosis: headache Patient is a 47-year-old female with a history of diabetes mellitus, gastroparesis, relapsing remitting limiting MS, and occipital migraine headaches who presented to the ER with complaints of migraine headaches. In the ER she underwent an extensive evaluation. She received Reglan for her headache which caused dystonic reaction worsening her restless legs and cramping. She was also reporting blurry vision and numbness and tingling in her lower extremities which is consistent with her MS flare. With concern for an MS flare she was started on IV steroids and request was made for admission. She has been seen by neurology who agrees with continuing IV steroids for 72 hours. She was seen by anesthesia who planned on an occipital nerve block as well as trigger point injections on 02/08. She also developed a reaction to her Tegaderm and tape and required IV Benadryl. Patient seen and examined at bedside. She states that she is still having her headache, blurry vision, and lower extremity cramping. No nausea, vomiting, or diarrhea. Sleeping well. We discussed that her A1c is 6.3 consistent with diabetes, she states it is down from 6.7 several months ago. 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 at bedside all questions answered. Objective - Vital Signs Vital signs: Vital Signs Temp 98.0 F 02/08/18 07:00 Pulse 76 02/08/18 07:00 Resp 18 02/08/18 07:00 BP 122/70 02/08/18 07:00 Pulse Ox 95 02/07/18 23:00 Intake & Output 02/07/18 02/08/18 02/08/18 18:59 06:59 18:59 Other: Voiding Method Toilet # Voids 3 1 - Exam General: non toxic, no distress, appears at stated age, obese Derm: Swelling over left arm, warm, dry Head: atraumatic, normocephalic, symmetric Eyes: EOMI, no lid lag, anicteric sclera Mouth: no lip lesion, mucus membranes moist Cardiovascular: S1S2 reg, no murmur, positive posterior tibial pulse bilateral, Lungs: CTA bilateral, no rhonchi, no rales , no accessory muscle use Abdominal: soft, nontender to palpation, no guarding, no appreciable organomegaly Ext: no gross muscle atrophy, no edema bilateral lower extremities, no contractures Neuro: CN II-XI grossly intact, no focal neuro deficits Psych: Alert, oriented, appropriate affect - Labs CBC & Chem 7: 02/06/18 22:56 02/06/18 22:56 Labs: Abnormal Lab Results - Last 24 Hours (Table) 02/06/18 02/07/18 02/07/18 Range/Units 22:56 16:58 19:44 POC Glucose (mg/dL) 193 H 137 H (75-99) mg/dL Hemoglobin A1c 6.3 H (4.0-6.0) % 02/08/18 Range/Units 06:54 POC Glucose (mg/dL) 190 H (75-99) mg/dL Hemoglobin A1c (4.0-6.0) % Assessment and Plan Assessment: Occipital migraine headache with history of occipital neuritis -Continue with pain control -Plan is for anesthesia to do occipital nerve block and possible trigger point injections on 02/08 -Neurology recommendations appreciated MS flare, relapsing remitting -Continue with Solu-Medrol for an additional 48 hours IV -Neurology recommendations appreciated -Continue outpatient evaluation with [facility] Nurse Practitioner with Dr. No' s Office -Baclofen, Diabetes mellitus type 2, diet controlled -Continue with sliding scale while on IV steroids -A1c 6.3 -Follow blood sugars closely -Suspect secondary to chronic steroid usage Chronic low back pain with degenerative disc disease -Continue morphine pain pump Stable asthma -DuoNeb's when necessary Hypothyroidism -Levothyroxine Hypertension, stable -Continue with metoprolol, lisinopril Restless Leg syndrome -Continue Requip DVT prophylaxis: Heparin Discussed with: Patient,, , nursing Anticipated discharge: [address]: home A total of 40 minutes was spent on the care of this complex patient more than 50 % of the time was spent in counseling and care coordination.
--- NOTE | 2018-02-08 11:58 | P.PCN ---
Date of Procedure: 02/08/18 Procedure(s) Performed: Preoperative diagnoses= 1- occipital neuralgia Postoperative diagnoses= same as preoperative diagnosis. Procedure= Bilateral Greater occipital nerve block Anesthesia= moderate sedation with Versed 2 mg . Estimated blood loss=minimal. Procedure indication= the patient had a history of severe chronic neck pain , and headache, diagnosed with occipital neuralgia exam was positive for severe tenderness over the occipital nerve bilaterally, she will be a good candidate occipital nerve block, patient failed conservative management Procedure description= the patient was seen and identified in the preoperative holding area, risks and benefits and alternative of the procedure and possible complications discussed with the patient, and he agreed with the preceding, patient signed the consent, an IV was started, and vital signs were monitored and were stable throughout the procedure, patient was placed in the sitting position or table and the neck area was prepped and draped with a sterile fashion, vital signs were closely monitored during the procedure, 25-gauge needle advanced 1 inch lateral to the occipital protuberance on the right side , at the location of the right occipital nerve , then after negative aspiration for heme and CSF and there was no paresthesia during the injection, 6 ml of Robivacaine 0.5% and 20 mg of Kenalog injected after negative aspiration, the needle removed, and the entire same procedure was repeated for the left Greater occipital nerve. Patient tolerated the procedure well without any complication, The patient returned to supine position after the back was cleaned and a Band- Aid applied, the patient transported to recovery room in stable condition and he was monitored for 30 minutes before he was discharged home and then patient was reexamined before going home and patient was discharged in stable condition and patient will follow up with the pain clinic in a f
[2018-02-08 17:23] LABS: Glucose,Whole Blood 212 mg/dL (75-99)
[2018-02-08 20:36] LABS: Glucose,Whole Blood 220 mg/dL (75-99)
[2018-02-08] MEDS: diphenhydrAMINE 50 MG/ML 1 ML VIAL IVP PRN (21:27)
[2018-02-09] MEDS: oxyCODONE-APAP 5-325MG 1 EACH TAB PO PRN ×4 (01:25→22:29)
[2018-02-09] MEDS: SODIUM CHLORIDE 0.9% 1,000 ML IV SCH ×3 (04:51→22:32)
[2018-02-09] MEDS: IPRATROPIUM-ALBUTEROL 3 ML NEB INHALATION PRN ×4 (05:34→17:11)
[2018-02-09] MEDS: LEVOTHYROXINE 100 MCG TAB PO SCH (06:09)
[2018-02-09] MEDS: KETOROLAC 30 MG/ML 1 ML VIAL IVP PRN ×3 (06:09→20:08)
[2018-02-09] MEDS: methylPREDNISolone SOD SUCCI 250 MG in SODIUM CHLORIDE 0.9% 100 ML IVPB SCH ×3 (06:09→19:06)
[2018-02-09] MEDS: diphenhydrAMINE 50 MG/ML 1 ML VIAL IVP PRN ×3 (06:09→20:08)
[2018-02-09 07:37] LABS: Glucose,Whole Blood 216 mg/dL (75-99)
--- NOTE | 2018-02-09 09:07 | P.PN ---
Subjective Progress Note Date: 02/08/18 This patient is a 47-year-old right-handed white female was admitted to hospital with symptoms of severe recurrent occipital neuritis headache pain and MS exacerbation. Patient has a known history of multiple sclerosis and has been treated for this condition over the years. She was treated in January for an acute MS exacerbation. She was transferred to [facility] during that admission and was seen in the neurology clinic for her MS and occipital neuritis. She underwent a occipital neuritis nerve block procedure which was helpful for about a month. More recently she has been under great deal of stress and this is exacerbated another recurrence of her MS symptoms. She was admitted to hospital yesterday and started on IV Solu-Medrol therapy. She has evidence of recurrent occipital neuritis and was seen today by the anesthesia pain clinic. She underwent bilateral occipital nerve block procedure today performed by Dr. Skinner. Patient was told that it may take one or 2 days to see the maximum benefit of the nerve block procedure. We will have to see how this procedure works in terms of reducing the severity of her headache pain. She does have known history of diabetes mellitus type 2. Her most recent hemoglobin A1c was 6.3. We are recommending tight control since she is receiving IV steroids at this time. She is to continue with 3 days of IV Solu- Medrol therapy at which time she can be discharged home on tapering doses of oral prednisone. She is to follow-up with her regular neurologist soon after discharge. She is to continue on Requip for treatment of her restless leg syndrome. We will continue close neurological follow-up with the patient during this admission. Her overall prognosis at this time remains guarded. Objective - Vital Signs Vital signs: Vital Signs Temp 99.0 F 02/08/18 20:07 Pulse 73 02/08/18 20:07 Resp 17 02/08/18 20:07 BP 107/70 02/08/18 20:07 Pulse Ox 95 02/08/18 14:15 Intake & Output 02/08/18 02/08/18 02/09/18 06:59 18:59 06:59 Intake Total 1620 120 Balance 1620 120 Intake: Intake, IV Titration 900 Amount methylPREDNISolone SOD 900 SUCCI 250 mg In Sodium Chloride 0.9% 100 ml @ 100 mls/hr IVPB Q6H [facility] Rx#:[id number] Oral 720 120 Other: # Voids 1 3 - Exam Physical examination: PHYSICAL EXAMINATION: Patient is resting comfortably in bed. VITAL SIGNS: Blood pressure is [107/70]. Heart rate is [73]. Respiration is [17] . Temperature is [99.0]. HEENT: Head is atraumatic, neck is supple, there were no carotid bruits. CHEST: Lungs are clear to auscultation and percussion. CARDIAC: S1, S2 normal rate and rhythm. There is no murmur. ABDOMEN: Soft and nontender. Bowel sounds are present. EXTREMITIES: There is no pedal edema. Peripheral pulses are present. Neurological examination: Patient's neurological examination is unchanged from yesterday. - Labs CBC & Chem 7: 02/06/18 22:56 02/06/18 22:56 Labs: Abnormal Lab Results - Last 24 Hours (Table) 02/08/18 02/08/18 02/08/18 Range/Units 06:54 17:11 20:25 POC Glucose (mg/dL) 190 H 212 H 220 H (75-99) mg/dL Assessment and Plan (1) Exacerbation of multiple sclerosis Current Visit: Yes Status: Acute Code(s): G35 - MULTIPLE SCLEROSIS SNOMED Code(s): 220912931 (2) Occipital neuritis Current Visit: No Status: Acute Code(s): M54.81 - OCCIPITAL NEURALGIA SNOMED Code(s): 37504303 (3) Chronic headaches Current Visit: No Status: Inactive Code(s): R51 - HEADACHE SNOMED Code(s) : 700028788 (4) Lumbar radicular syndrome Current Visit: No Status: Inactive Code(s): M54.16 - RADICULOPATHY, LUMBAR REGION SNOMED Code(s): 521276068 (5) Migraine Current Visit: No Status: Acute Code(s): G43.909 - MIGRAINE, UNSP, NOT INTRACTABLE, WITHOUT STATUS MIGRAINOSUS SNOMED Code(s): 53124285 (6) Paresthesias Current Visit: No Status: Acute Code(s): R20.2 - PARESTHESIA OF SKIN SNOMED Code(s): 70760862 Plan: This patient is a 47-year-old female with a long-standing history of relapsing remitting form of multiple sclerosis. Her last MS exacerbation was in January of this year. Patient over the last 2 days had recurrent severe occipital headache pain. She recently underwent a occipital nerve block procedure to [facility] in January. This worked very well for the past 1 month. Patient decided to come to the emergency room as her headache pain was becoming unmanageable at home. She was seen in the ER and was given a headache cocktail unfortunately she had a side effect to the Reglan. She was treated for acute dystonic reaction and was given Benadryl and did seem to come out fairly well. The patient has been on various treatments for her MS over the years. More recently she had been given an infusion of Ocrevus. This treatment unfortunately caused a severe side effect and she has not been able to go back to this new or treatment plan. She is considering to restart on one of the interferons most likely Copaxone in the past. The patient otherwise was recommended admission to the hospital. She was seen by anesthesia earlier today and they're agreeable to perform a bilateral occipital nerve block procedure for this patient. She may also require other trigger point injections to the shoulder region. We will have the patient continue on IV Solu -Medrol 250 mg IV piggyback every 6 hours for 3 days. We will await her occipital nerve block procedure to be done tomorrow morning and we will monitor for any further intervention as needed. This patient's overall prognosis at this time remains guarded. Patient did undergo bilateral occipital nerve block procedure today and she has noted slight improvement. It may take one or 2 days to see the maximum effect of this procedure. She is to continue on IV Solu -Medrol and complete 3 days of therapy at which time she can be transitioned to oral prednisone and discharge home. She is making good progress. We will continue close neurological follow-up for the patient during this admission.
[2018-02-09] MEDS: ATORVASTATIN 10 MG TAB PO SCH (10:03)
[2018-02-09] MEDS: LISINOPRIL 20 MG TAB PO SCH (10:03)
[2018-02-09] MEDS: HEPARIN SODIUM,PORCINE 5,000 UNIT/ML 1 ML VIAL SQ SCH ×2 (10:03→16:48)
[2018-02-09] MEDS: MONTELUKAST 10 MG TAB PO SCH (10:04)
[2018-02-09] MEDS: INSULIN ASPART 100 UNIT/ML 1 ML 10 ML VIAL SQ SCH ×4 (10:04→20:58)
[2018-02-09] MEDS: BACLOFEN 10 MG TAB PO SCH ×4 (10:04→22:29)
[2018-02-09] MEDS: PANTOPRAZOLE 40 MG TABLET PO SCH (10:04)
[2018-02-09] MEDS: DULoxetine HCL 60 MG CAPSULE.DR PO SCH (10:04)
[2018-02-09] MEDS: METOPROLOL TARTRATE 25 MG TAB PO SCH ×2 (10:04→22:28)
[2018-02-09] MEDS: GABAPENTIN 300 MG CAP PO SCH ×3 (10:04→22:29)
[2018-02-09 10:21] LABS: Anion Gap 8 mmol/L; Blood Urea Nitrogen 22 mg/dL (7-17); Calcium 8.9 mg/dL (8.4-10.2); Carbon Dioxide 20 mmol/L (22-30); Chloride 115 mmol/L (98-107); Glucose 190 mg/dL (74-99); Potassium 4.5 mmol/L (3.5-5.1); Sodium 143 mmol/L (137-145)
[2018-02-09] MEDS: MORPHINE EPIDURAL SCH (10:23)
--- NOTE | 2018-02-09 10:58 | P.PN ---
Subjective Progress Note Date: 02/09/18 Principal diagnosis: headache Patient is a 47-year-old female with a history of diabetes mellitus, gastroparesis, relapsing remitting limiting MS, and occipital migraine headaches who presented to the ER with complaints of migraine headaches. In the ER she underwent an extensive evaluation. She received Reglan for her headache which caused dystonic reaction worsening her restless legs and cramping. She was also reporting blurry vision and numbness and tingling in her lower extremities which is consistent with her MS flare. With concern for an MS flare she was started on IV steroids and request was made for admission. She has been seen by neurology who agrees with continuing IV steroids for 72 hours. She was seen by anesthesia and underwent an occipital nerve block as well as trigger point injections on 02/08. She also developed a reaction to her Tegaderm and tape and required IV Benadryl. Her symptoms slowly improved. Patient seen and examined at bedside. Leg tingling and cramping are improving. Still with RAMON has minimal improvement. C/O wheezing as she missed 1 dose of IV benadryl when her IV went bad yesterday. Has been taking q 4 hours breathing treatments. States that she is still "wheezing Bad". Discussed with patient that she will complete her IV steroids tmorrow morning at 6 am and plan will be for discharge home. Objective - Vital Signs Vital signs: Vital Signs Temp 98.2 F 02/09/18 07:16 Pulse 76 02/09/18 08:17 Resp 16 02/09/18 07:16 BP 127/81 02/09/18 07:16 Pulse Ox 95 02/09/18 07:16 Intake & Output 02/08/18 02/09/18 02/09/18 18:59 06:59 18:59 Intake Total 1620 120 Balance 1620 120 Intake: Intake, IV Titration 900 Amount methylPREDNISolone SOD 900 SUCCI 250 mg In Sodium Chloride 0.9% 100 ml @ 100 mls/hr IVPB Q6H [facility] Rx#:[id number] Oral 720 120 Other: # Voids 3 - Exam General: non toxic, mild distress, appears at stated age, obese Derm: Swelling over left arm, warm, dry Head: atraumatic, normocephalic, symmetric Eyes: EOMI, no lid lag, anicteric sclera Mouth: no lip lesion, mucus membranes moist Cardiovascular: S1S2 reg, no murmur, positive posterior tibial pulse bilateral, Lungs: faint expiratory wheeze anterior chest wall, no rhonchi, no rales , no accessory muscle use Abdominal: soft, nontender to palpation, no guarding, no appreciable organomegaly Ext: no gross muscle atrophy, 2+ edema bilateral lower extremities, no contractures Neuro: CN II-XI grossly intact, no focal neuro deficits Psych: Alert, oriented, appropriate affect - Labs CBC & Chem 7: 02/06/18 22:56 02/09/18 08:13 Labs: Abnormal Lab Results - Last 24 Hours (Table) 02/08/18 02/08/18 02/09/18 Range/Units 17:11 20:25 07:17 Chloride (98-107) mmol/L Carbon Dioxide (22-30) mmol/L BUN (7-17) mg/dL Glucose (74-99) mg/dL POC Glucose (mg/dL) 212 H 220 H 216 H (75-99) mg/dL 02/09/18 Range/Units 08:13 Chloride 115 H (98-107) mmol/L Carbon Dioxide 20 L (22-30) mmol/L BUN 22 H (7-17) mg/dL Glucose 190 H (74-99) mg/dL POC Glucose (mg/dL) (75-99) mg/dL Assessment and Plan Assessment: Occipital migraine headache with history of occipital neuritis -Continue with pain control -Occipital nerve block on 02/08 -Neurology recommendations appreciated MS flare, relapsing remitting -Continue with Solu-Medrol for an additional 24 hours IV, plan on D/C home in AM with steroid dominic -Neurology recommendations appreciated -Continue outpatient evaluation with [facility] Practitioner with Dr. No' s [facility] -Baclofen Diabetes mellitus type 2, diet controlled -Continue with sliding scale while on IV steroids -A1c 6.3 -Follow blood sugars closely -Suspect secondary to chronic steroid usage Chronic low back pain with degenerative disc disease -Continue morphine pain pump Stable asthma -DuoNeb's when necessary Hypothyroidism -Levothyroxine Hypertension, stable -Continue with metoprolol, lisinopril Restless Leg syndrome -Continue Requip DVT prophylaxis: Heparin Discussed with: Patient, nursing Anticipated discharge: [address]: home A total of 25 minutes was spent on the care of this complex patient more than 50 % of the time was spent in counseling and care coordination.
[2018-02-09 11:40] LABS: Glucose,Whole Blood 326 mg/dL (75-99)
[2018-02-09] MEDS ORDERED: INSULIN ASPART 100 UNIT/ML 1 ML 10 ML VIAL SQ ONE ×2 (12:45→23:03)
[2018-02-09 17:08] LABS: Glucose,Whole Blood 205 mg/dL (75-99)
[2018-02-09 20:09] LABS: Glucose,Whole Blood 291 mg/dL (75-99)
[2018-02-09 20:45] LABS: Glucose,Whole Blood 311 mg/dL (75-99)
[2018-02-09 23:09] LABS: Glucose,Whole Blood 303 mg/dL (75-99)
[2018-02-10] MEDS: HEPARIN SODIUM,PORCINE 5,000 UNIT/ML 1 ML VIAL SQ SCH ×2 (00:46→08:32)
[2018-02-10] MEDS: methylPREDNISolone SOD SUCCI 250 MG in SODIUM CHLORIDE 0.9% 100 ML IVPB SCH ×3 (00:46→12:50)
[2018-02-10] MEDS ORDERED: INSULIN ASPART 100 UNIT/ML 1 ML 10 ML VIAL SQ ONE (01:21)
[2018-02-10 01:22] LABS: Glucose,Whole Blood 235 mg/dL (75-99)
[2018-02-10 03:35] LABS: Glucose,Whole Blood 218 mg/dL (75-99)
[2018-02-10] MEDS: KETOROLAC 30 MG/ML 1 ML VIAL IVP PRN ×2 (04:23→11:08)
[2018-02-10] MEDS: diphenhydrAMINE 50 MG/ML 1 ML VIAL IVP PRN ×2 (04:23→11:04)
[2018-02-10] MEDS: IPRATROPIUM-ALBUTEROL 3 ML NEB INHALATION PRN ×3 (04:28→11:15)
[2018-02-10] MEDS: LEVOTHYROXINE 100 MCG TAB PO SCH (05:58)
[2018-02-10 07:26] LABS: Glucose,Whole Blood 174 mg/dL (75-99)
[2018-02-10 07:59] VITALS: BP 140/70; RESP 16; TEMP 98
[2018-02-10] MEDS: INSULIN ASPART 100 UNIT/ML 1 ML 10 ML VIAL SQ SCH ×2 (08:31→13:14)
[2018-02-10] MEDS: SCOPOLAMINE 1.5MG/72HR PATCH TRANSDERM SCH (08:32)
[2018-02-10] MEDS: MONTELUKAST 10 MG TAB PO SCH (08:32)
[2018-02-10] MEDS: ATORVASTATIN 10 MG TAB PO SCH (08:32)
[2018-02-10] MEDS: BACLOFEN 10 MG TAB PO SCH ×2 (08:32→13:14)
[2018-02-10] MEDS: METOPROLOL TARTRATE 25 MG TAB PO SCH (08:32)
[2018-02-10] MEDS: LISINOPRIL 20 MG TAB PO SCH (08:32)
[2018-02-10] MEDS: PANTOPRAZOLE 40 MG TABLET PO SCH (08:32)
[2018-02-10] MEDS: DULoxetine HCL 60 MG CAPSULE.DR PO SCH (08:33)
[2018-02-10] MEDS: SODIUM CHLORIDE 0.9% 1,000 ML IV SCH (08:33)
[2018-02-10] MEDS: MORPHINE EPIDURAL SCH (08:34)
[2018-02-10] MEDS: GABAPENTIN 300 MG CAP PO SCH (08:34)
[2018-02-10 11:24] VITALS: PULSE 74
[2018-02-10 12:10] LABS: Glucose,Whole Blood 216 mg/dL (75-99)
--- NOTE | 2018-02-10 17:23 | P.DS ---
Providers Date of admission: 02/08/18 08:40 Expected date of discharge: 02/10/18 Attending physician: Narcisa Zamudio MD Consults: 02/07/18 02:11 Consult Physician Stat Consulting Provider: Maranda Winters Consult Reason/Comments: MS exacerbation Do you want consulting provider notified?: Yes 02/07/18 11:33 Consult Physician Routine Consulting Provider: Guillermina Skinner Consult Reason/Comments: occipital migraine, occipital injection, Hx of injecction at [facility] Do you want consulting provider notified?: Yes Primary care physician: Robbie Recio Hospital Course: Discharge Diagnosis: Exacerbation of relapsing remitting multiple sclerosis Occipital migraine with history of occipital neuritis Diabetes mellitus type 2 (A1C 6.3) with steroid induced hyperglycemia Chronic low back pain Stable asthma Hypothyroidism Hypertension Restless leg syndrome Hospital Course: Patient is a 47-year-old female with a history of diabetes mellitus, gastroparesis, relapsing remitting limiting MS, and occipital migraine headaches who presented to the ER with complaints of migraine headaches. In the ER she underwent an extensive evaluation. She received Reglan for her headache which caused dystonic reaction worsening her restless legs and cramping. She was also reporting blurry vision and numbness and tingling in her lower extremities which is consistent with her MS flare. With concern for an MS flare she was started on IV steroids and request was made for admission. She has been seen by neurology who agrees with continuing IV steroids for 72 hours. She was seen by anesthesia and underwent an occipital nerve block as well as trigger point injections on 02/08. She also developed a reaction to her Tegaderm and tape and required IV Benadryl. Her symptoms slowly improved. She completed 72 hours of IV solumedrol. Her blood sugars elevated slightly and she required insulin. She already uses insulin as needed at home when on steroids. Her lower extremity tingling improved slightly with IV steroids. She was determined stable for discharge home. She will complete a slow steroids dominic at neurology recommendations. She will increase her metformin to 500mg BID. She will follow up with Dr. Recio and [facility]. She is considering to keep following with anesthesia for never block with sedation. Patient seen and examined at bedside. Still with wheeze (upper airway on exam). C/O swelling in face and legs. ( Offered lasix but she declines and will let in improve naturally). No chest pain. Still with some tingling in feet, cramping improved. Vital signs reviewed and stable. General: non toxic, no distress, appears at stated age Derm: warm, dry Head: atraumatic, normocephalic, symmetric Eyes: EOMI, no lid lag, anicteric sclera Mouth: no lip lesion, mucus membranes moist Cardiovascular: S1S2 reg, no murmur, positive posterior tibial pulse bilateral, Lungs: CTA bilateral- upper airway wheeze audible over trachea., no rhonchi, no rales , no accessory muscle use Abdominal: soft, nontender to palpation, no guarding, no appreciable organomegaly Ext: no gross muscle atrophy, no edema, no contractures Neuro: CN II-XI grossly intact, no focal neuro deficits Psych: Alert, oriented, withdrawn A total of 35 minutes of time were spent preparing this complex discharge summary . Pertinent Studies: None Patient Condition at Discharge: Stable Plan - Discharge Summary Discharge Rx Participant: No New Discharge Prescriptions: New metFORMIN HCL [Glucophage] 500 mg PO BID #60 tab predniSONE 0 mg PO DIRECTED #140 tab Continue Atorvastatin [Lipitor] 10 mg PO DAILY Albuterol Sulfate [Proair Hfa] 2 puff INHALATION RT-Q6H PRN PRN Reason: Shortness Of Breath Diclofenac Sodium [Voltaren Gel] 4 gm TOPICAL DAILY PRN PRN Reason: Pain Levothyroxine Sodium [Synthroid] 100 mcg PO QAM Morphine Pain Pump 8.35 mg EPIDURAL DAILY Montelukast [Singulair] 10 mg PO DAILY #30 tab DULoxetine HCL [Cymbalta] 60 mg PO QAM Ipratropium-Albuterol Nebulize [Duoneb 0.5 mg-3 mg/3 ml Soln] 3 ml INHALATION RT-QID PRN PRN Reason: Shortness Of Breath Butalb/Acetaminophen/Caffeine [Esgic 50-325-40 Capsule] 1 cap PO AC-TID PRN PRN Reason: Headache INSULIN LISPRO (HumaLOG) [humaLOG] See Protocol SQ ACHS PRN PRN Reason: Blood Sugar - High Cholecalciferol [Vitamin D3] 1,000 unit PO MOWE Metoclopramide [Reglan] 10 mg PO QID PRN PRN Reason: Muscle Spasm Baclofen [Lioresal] 20 mg PO QID tiZANidine HCL [Zanaflex] 2 mg PO QID Scopolamine 1.5MG/72Hr Patch [TransDerm Scop] 1 patch TRANSDERM Q72H Omeprazole 40 mg PO DAILY #60 capsule. rOPINIRole HCL [Requip] 1 mg PO TID Lisinopril [Zestril] 20 mg PO DAILY #30 tab Metoprolol Tartrate [Lopressor] 25 mg PO BID Prochlorperazine [Compazine] 10 mg PO Q6H Gabapentin [Neurontin] 300 mg PO TID Ketorolac [Toradol] 10 mg PO Q6HR PRN PRN Reason: Pain Discontinued metFORMIN HCL [Metformin HCl] 250 mg PO DAILY Discharge Medication List Albuterol Sulfate [Proair Hfa] 2 puff INHALATION RT-Q6H PRN 09/26/15 [History] Atorvastatin [Lipitor] 10 mg PO DAILY 09/26/15 [History] Diclofenac Sodium [Voltaren Gel] 4 gm TOPICAL DAILY PRN 09/26/15 [History] Levothyroxine Sodium [Synthroid] 100 mcg PO QAM 02/24/16 [History] Morphine Pain Pump 8.35 mg EPIDURAL DAILY 06/22/16 [History] Montelukast [Singulair] 10 mg PO DAILY #30 tab 06/23/16 [Rx] DULoxetine HCL [Cymbalta] 60 mg PO QAM 01/10/17 [History] Butalb/Acetaminophen/Caffeine [Esgic 50-325-40 Capsule] 1 cap PO AC-TID PRN [History] Ipratropium-Albuterol Nebulize [Duoneb 0.5 mg-3 mg/3 ml Soln] 3 ml INHALATION RT -QID PRN 01/16/17 [History] INSULIN LISPRO (HumaLOG) [humaLOG] See Protocol SQ ACHS PRN 01/19/17 [History] Cholecalciferol [Vitamin D3] 1,000 unit PO MOWE 03/03/17 [History] Metoclopramide [Reglan] 10 mg PO QID PRN 03/03/17 [History] Baclofen [Lioresal] 20 mg PO QID 04/26/17 [History] tiZANidine HCL [Zanaflex] 2 mg PO QID 06/15/17 [History] Scopolamine 1.5MG/72Hr Patch [TransDerm Scop] 1 patch TRANSDERM Q72H 07/07/17 [ History] Omeprazole 40 mg PO DAILY #60 myke. 07/12/17 [Rx] rOPINIRole HCL [Requip] 1 mg PO TID 10/30/17 [History] Lisinopril [Zestril] 20 mg PO DAILY #30 tab 12/19/17 [Rx] Metoprolol Tartrate [Lopressor] 25 mg PO BID 01/09/18 [History] Gabapentin [Neurontin] 300 mg PO TID 02/06/18 [History] Ketorolac [Toradol] 10 mg PO Q6HR PRN 02/06/18 [History] Prochlorperazine [Compazine] 10 mg PO Q6H 02/06/18 [History] metFORMIN HCL [Glucophage] 500 mg PO BID #60 tab 02/10/18 [Rx] predniSONE 0 mg PO DIRECTED #140 tab 02/10/18 [Rx] Follow up Appointment(s)/Referral(s): [facility] [REFERRING] - 03/02/18 Robbie Recio MD [Primary Care Provider] - 1-2 days Activity/Diet/Wound Care/Special Instructions: carb consistent diet activity as tolerated Discharge Disposition: HOME SELF-CARE
== END 2018-02-10 14:02 | disposition home or self-care (01) | DRG 103 ==
LOC: EC 21:54 → 4SSUR 02-07 02:09 → OBSVTOIN 02-08 08:40
PROVIDERS: ADMIT Internal Medicine; ATTEND Internal Medicine
PROC: 3E0R33Z Introduction of Anti-inflammatory into Spinal Canal, Percutaneous Approach (ICD-10-PCS; principal; 2018-02-08)
PROC: 3E0R33Z Introduction of Anti-inflammatory into Spinal Canal, Percutaneous Approach (ICD-10-PCS; 2018-02-08)
PROC: 3E0R3BZ Introduction of Anesthetic Agent into Spinal Canal, Percutaneous Approach (ICD-10-PCS; 2018-02-08)
PROC: 3E0R3BZ Introduction of Anesthetic Agent into Spinal Canal, Percutaneous Approach (ICD-10-PCS; 2018-02-08)
DX: G43.819 Other migraine, intractable, without status migrainosus (principal); E11.43 Type 2 diabetes mellitus with diabetic autonomic (poly)neuropathy; K31.84 Gastroparesis; E11.65 Type 2 diabetes mellitus with hyperglycemia; G35 Multiple sclerosis; T38.0X5A Adverse effect of glucocorticoids and synthetic analogues, initial encounter; M54.81 Occipital neuralgia; J45.20 Mild intermittent asthma, uncomplicated; I10 Essential (primary) hypertension; E03.9 Hypothyroidism, unspecified; G25.81 Restless legs syndrome; G24.9 Dystonia, unspecified; G89.29 Other chronic pain; M51.16 Intervertebral disc disorders with radiculopathy, lumbar region; L23.1 Allergic contact dermatitis due to adhesives; R19.7 Diarrhea, unspecified; E66.9 Obesity, unspecified; Z68.35 Body mass index [BMI] 35.0-35.9, adult; Z79.890 Hormone replacement therapy; Z79.4 Long term (current) use of insulin; Z79.891 Long term (current) use of opiate analgesic; Z79.899 Other long term (current) drug therapy; Z90.710 Acquired absence of both cervix and uterus; Z98.51 Tubal ligation status; Z91.040 Latex allergy status; Z88.5 Allergy status to narcotic agent; Z91.048 Other nonmedicinal substance allergy status; Z82.49 Family history of ischemic heart disease and other diseases of the circulatory system
CPT/HCPCS: 36415; 80048; 83036; 84484; 85025; 93005; 94640; 96365; 96366; 96375; 99285

== ENCOUNTER 2018-02-11 10:21 | Emergency (ER) | payer BC, MEDICARE ==
[2018-02-11 10:32] VITALS: RESP 18; TEMP 98.4
[2018-02-11] MEDS ORDERED: methylPREDNISolone SOD SUCCI 125 MG/2 ML VIAL IM STA (10:55)
[2018-02-11] MEDS ORDERED: hydrOXYzine HCL 25 MG TAB PO STA (10:56)
--- NOTE | 2018-02-11 11:06 | ED ---
General Adult HPI - General Chief complaint: Allergic Reaction Stated complaint: Allergic Reaction Time Seen by Provider: 02/11/18 10:44 Source: patient, RN notes reviewed, old records reviewed Mode of arrival: ambulatory Limitations: no limitations - History of Present Illness Initial comments: Patient 47-year-old female was sent with a past medical history for MS, presented to the emergency room today with a chief complaint of an ALLERGIC reaction. She states that she was admitted to the hospital symptoms yesterday. She states she has an ALLERGY to adhesive. She states that she had to hold an IV in place because she was receiving steroids and also IV Benadryl while she was here in the emergency room. She states that she went home yesterday and she feels like she is more swollen today. Some swelling to the left hand and face. She states she does not feel that this is due to the steroids that she's on. She states she's been on these for a long times never had a problem. She feels that it is a reaction to the adhesive tape. She denies any difficulty breathing, swallowing, tongue swelling, lip swelling. Patient denies any other complaints currently. - Related Data Home Medications Medication Instructions Recorded Confirmed Albuterol Sulfate [Proair Hfa] 2 puff INHALATION RT-Q6H PRN 09/26/15 02/06/18 Atorvastatin [Lipitor] 10 mg PO DAILY 09/26/15 02/06/18 Diclofenac Sodium [Voltaren Gel] 4 gm TOPICAL DAILY PRN 09/26/15 02/06/18 Levothyroxine Sodium [Synthroid] 100 mcg PO QAM 02/24/16 02/06/18 Morphine Pain Pump 8.35 mg EPIDURAL DAILY 06/22/16 02/06/18 DULoxetine HCL [Cymbalta] 60 mg PO QAM 01/10/17 02/06/18 Butalb/Acetaminophen/Caffeine 1 cap PO AC-TID PRN 01/16/17 02/06/18 [Esgic 50-325-40 Capsule] Ipratropium-Albuterol Nebulize 3 ml INHALATION RT-QID PRN 01/16/17 02/06/18 [Duoneb 0.5 mg-3 mg/3 ml Soln] INSULIN LISPRO (HumaLOG) [humaLOG] See Protocol SQ ACHS PRN 01/19/17 02/06/18 Cholecalciferol [Vitamin D3] 1,000 unit PO MOWE 03/03/17 02/06/18 Metoclopramide [Reglan] 10 mg PO QID PRN 03/03/17 02/06/18 Baclofen [Lioresal] 20 mg PO QID 04/26/17 02/06/18 tiZANidine HCL [Zanaflex] 2 mg PO QID 06/15/17 02/06/18 Scopolamine 1.5MG/72Hr Patch 1 patch TRANSDERM Q72H 07/07/17 02/06/18 [TransDerm Scop] rOPINIRole HCL [Requip] 1 mg PO TID 10/30/17 02/06/18 Metoprolol Tartrate [Lopressor] 25 mg PO BID 01/09/18 02/06/18 Gabapentin [Neurontin] 300 mg PO TID 02/06/18 02/06/18 Ketorolac [Toradol] 10 mg PO Q6HR PRN 02/06/18 02/06/18 Prochlorperazine [Compazine] 10 mg PO Q6H 02/06/18 02/06/18 diphenhydrAMINE [Benadryl] 75 mg PO DAILY PRN 02/11/18 02/11/18 Previous Rx's Medication Instructions Recorded Montelukast [Singulair] 10 mg PO DAILY #30 tab 06/23/16 Omeprazole 40 mg PO DAILY #60 capsule. 07/12/17 Lisinopril [Zestril] 20 mg PO DAILY #30 tab 12/19/17 metFORMIN HCL [Glucophage] 500 mg PO BID #60 tab 02/10/18 Famotidine [Pepcid] 20 mg PO BID #20 tablet 02/11/18 hydrOXYzine HCL [Atarax] 1 - 2 tab PO QID #30 tab 02/11/18 Allergies Allergy/AdvReac Type Severity Reaction Status Date / Time adhesive Allergy Severe Rash/Hives Verified 02/11/18 10:32 adhesive tape Allergy Severe Rash/Hives Verified 02/11/18 10:32 fentanyl Allergy Severe Rash/Hives Verified 02/11/18 11:01 latex Allergy Severe Rash/Hives Verified 02/11/18 10:32 Review of Systems ROS Statement: Those systems with pertinent positive or pertinent negative responses have been documented in the HPI. ROS Other: All systems not noted in ROS Statement are negative. Past Medical History Past Medical History: Asthma, Diabetes Mellitus, Hypertension, Musculoskeletal Disorder, Neurologic Disorder, Thyroid Disorder Additional Past Medical History / Comment(s): MS, back pain, DEGENERATIVE DISC DISEASE History of Any Multi-Drug Resistant Organisms: None Reported Past Surgical History: Bladder Surgery, Hernia Repair, Hysterectomy, Orthopedic Surgery, Tubal Ligation Additional Past Surgical History / Comment(s): rhinoplasty, bladder suspension, breast sx, morphine pump , RT KNEE SCOPE, TUMMY TUCK, SCS DEVICE INSERTED AND REMOVED-DOES NOT HAVE T-11 IN SPINE. Past Anesthesia/Blood Transfusion Reactions: Motion Sickness, Postoperative Nausea & Vomiting (PONV) Past Psychological History: No Psychological Hx Reported Smoking Status: Never smoker Past Alcohol Use History: None Reported Past Drug Use History: None Reported - Past Family History Father History Unknown: Yes Family Medical History: Hypertension Additional Family Medical History / Comment(s): Pt left home as a teen and does not know parents PMH Mother History Unknown: Yes Family Medical History: No Reported History, Unable to Obtain Additional Family Medical History / Comment(s): NO FAMILY HISTORY General Exam - General Exam Comments Initial Comments: General: The patient is awake and alert, in no distress, and does not appear acutely ill. Patient resting comfortable and speaking in full sentences no sign of distress. Eye: There is normal conjunctiva bilaterally. No signs of icterus. Ears, nose, mouth and throat: There are moist mucous membranes and no oral lesions. Uvula midline. Patient swallows and tolerating oral secretions without any difficulty. Neck: The neck is supple, there is no tenderness or JVD. Cardiovascular: There is a regular rate and rhythm. No murmur, rub or gallop is appreciated. Respiratory: Lungs are clear to auscultation, respirations are non-labored, breath sounds are equal. No wheezes, stridor, rales, or rhonchi. Musculoskeletal: Normal ROM, no tenderness. Sensation intact. Strength 5/5. Pulses equal bilaterally 2+. Neurological: A&O x 3. CN II-XII intact, There are no obvious motor or sensory deficits. Coordination appears grossly intact. Speech is normal. Skin: Skin is warm and dry and no rashes or lesions are noted. Psychiatric: Cooperative, appropriate mood & affect, normal judgment. Limitations: no limitations Course Vital Signs 02/11/18 10:28 Temperature 98.4 F Pulse Rate 68 Respiratory 18 Rate Blood Pressure 187/101 O2 Sat by Pulse 97 Oximetry Medical Decision Making - Medical Decision Making Was discussed with the patient that there is no rash or for a IV Benadryl. She states that by mouth does not seem to work for her as she has a history of gastroparesis. She states she feels that she needs something. Patient offered a dose of steroids here as did discuss that Benadryl is on a shortage. Did discuss with patient about trying Atarax along with Pepcid. She'll be discharged home with prescriptions. She is advised that she should follow-up the family doctor tomorrow return here to the emergency room symptoms increase or worsen. Did offer the patient breathing treatment as well as she states that she feels that she has wheeze. Her lungs are clear. She has declined breathing treatments that she has these at home. Disposition Clinical Impression: Allergy to adhesive tape Disposition: HOME SELF-CARE Condition: Good Instructions: Urticaria (ED) Additional Instructions: Please use medication as discussed. Please follow-up with family doctor in the next 2 days of symptoms have not improved. Please return to emergency room if the symptoms increase or worsen or for any other concerns. Prescriptions: Famotidine [Pepcid] 20 mg PO BID #20 tablet hydrOXYzine HCL [Atarax] 1 - 2 tab PO QID #30 tab Is patient prescribed a controlled substance at d/c from ED?: No Referrals: Robbie Recio MD [Primary Care Provider] - 1-2 days Time of Disposition: 11:05
[2018-02-11 11:45] VITALS: BP 141/90; PULSE 71
== END 2018-02-11 11:43 | disposition home or self-care (01) ==
LOC: EC 10:21
DX: T78.49XA Other allergy, initial encounter (principal); R22.0 Localized swelling, mass and lump, head; M79.89 Other specified soft tissue disorders; J45.909 Unspecified asthma, uncomplicated; E11.9 Type 2 diabetes mellitus without complications; I10 Essential (primary) hypertension; E07.9 Disorder of thyroid, unspecified; Z79.4 Long term (current) use of insulin; Z79.899 Other long term (current) drug therapy; Z79.891 Long term (current) use of opiate analgesic; Z91.048 Other nonmedicinal substance allergy status; Z91.040 Latex allergy status; Z88.5 Allergy status to narcotic agent
CPT/HCPCS: 99283; 96372; J2930

== ENCOUNTER 2018-03-24 15:42 | Emergency (ER) | payer BC, MEDICARE ==
[2018-03-24] MEDS ORDERED: IOPAMIDOL-300 CONTRAST 30 ML VIAL (ORAL USE) PO PRN (16:32)
[2018-03-24] MEDS ORDERED: MORPHINE SULFATE 4 MG/ML SYRINGE IVP STA (16:32)
[2018-03-24] MEDS ORDERED: ONDANSETRON 4 MG/2 ML VIAL IVP STA (16:32)
--- NOTE | 2018-03-24 16:36 | ED ---
Abdominal Pain HPI - General Chief Complaint: Abdominal Pain Stated Complaint: Abd pain Time Seen by Provider: 03/24/18 16:21 Source: patient Mode of arrival: ambulatory Limitations: no limitations - History of Present Illness Initial Comments: Patient is a 47-year-old female presents with the chief complaint of abdominal pain after running a grocery cart into a cement pillar yesterday and subsequently running into a cart. She states the bar of the cart hit her across the abdomen. Patient states that she had pain initially but was able to go home. She states that earlier this morning she started having hematochezia. Patient denies any other injury. Patient states that her bowel movements of bloody though they are not painful. She characterizes her pain as cramping in nature. There are no aggravating or alleviating factors. She states her pain is constant. - Related Data Home Medications Medication Instructions Recorded Confirmed Albuterol Sulfate [Proair Hfa] See Taper INHALATION RT-Q6H PRN 09/26/15 02/11/18 Atorvastatin [Lipitor] 10 mg PO DAILY 09/26/15 02/11/18 Diclofenac Sodium [Voltaren Gel] 4 gm TOPICAL DAILY PRN 09/26/15 02/11/18 Levothyroxine Sodium [Synthroid] 100 mcg PO QAM 02/24/16 02/11/18 Morphine Pain Pump 8.35 mg EPIDURAL DAILY 06/22/16 02/11/18 DULoxetine HCL [Cymbalta] 60 mg PO QAM 01/10/17 02/11/18 Butalb/Acetaminophen/Caffeine 1 cap PO AC-TID PRN 01/16/17 02/11/18 [Esgic 50-325-40 Capsule] Ipratropium-Albuterol Nebulize 3 ml INHALATION RT-QID PRN 01/16/17 02/11/18 [Duoneb 0.5 mg-3 mg/3 ml Soln] INSULIN LISPRO (HumaLOG) [humaLOG] See Protocol SQ ACHS PRN 01/19/17 02/11/18 Cholecalciferol [Vitamin D3] 1,000 unit PO MOWE 03/03/17 02/11/18 Metoclopramide [Reglan] 10 mg PO QID PRN 03/03/17 02/11/18 Baclofen [Lioresal] 20 mg PO QID 04/26/17 02/11/18 tiZANidine HCL [Zanaflex] 2 mg PO QID 06/15/17 02/11/18 Scopolamine 1.5MG/72Hr Patch 1 patch TRANSDERM Q72H 07/07/17 02/11/18 [TransDerm Scop] rOPINIRole HCL [Requip] 1 mg PO TID 10/30/17 02/11/18 Metoprolol Tartrate [Lopressor] 25 mg PO BID 01/09/18 02/11/18 Gabapentin [Neurontin] 300 mg PO TID 02/06/18 02/11/18 Ketorolac [Toradol] 10 mg PO Q6HR PRN 02/06/18 02/11/18 Prochlorperazine [Compazine] 10 mg PO Q6H 02/06/18 02/11/18 diphenhydrAMINE [Benadryl] 75 mg PO DAILY PRN 02/11/18 02/11/18 predniSONE See Taper PO DAILY 02/11/18 02/11/18 Previous Rx's Medication Instructions Recorded Montelukast [Singulair] 10 mg PO DAILY #30 tab 06/23/16 Omeprazole 40 mg PO DAILY #60 capsule. 07/12/17 Lisinopril [Zestril] 20 mg PO DAILY #30 tab 12/19/17 metFORMIN HCL [Glucophage] 500 mg PO BID #60 tab 02/10/18 Famotidine [Pepcid] 20 mg PO BID #20 tablet 02/11/18 hydrOXYzine HCL [Atarax] 1 - 2 tab PO QID #30 tab 02/11/18 Allergies Allergy/AdvReac Type Severity Reaction Status Date / Time adhesive Allergy Severe Rash/Hives Verified 03/24/18 15:46 adhesive tape Allergy Severe Rash/Hives Verified 03/24/18 15:46 fentanyl Allergy Severe Rash/Hives Verified 03/24/18 15:46 latex Allergy Severe Rash/Hives Verified 03/24/18 15:46 Review of Systems ROS Statement: Those systems with pertinent positive or pertinent negative responses have been documented in the HPI. ROS Other: All systems not noted in ROS Statement are negative. Gastrointestinal: Reports: abdominal pain, hematochezia Past Medical History Past Medical History: Asthma, Diabetes Mellitus, Hypertension, Musculoskeletal Disorder, Neurologic Disorder, Thyroid Disorder Additional Past Medical History / Comment(s): MS, back pain, DEGENERATIVE DISC DISEASE History of Any Multi-Drug Resistant Organisms: None Reported Past Surgical History: Bladder Surgery, Hernia Repair, Hysterectomy, Orthopedic Surgery, Tubal Ligation Additional Past Surgical History / Comment(s): rhinoplasty, bladder suspension, breast sx, morphine pump , RT KNEE SCOPE, TUMMY TUCK, SCS DEVICE INSERTED AND REMOVED-DOES NOT HAVE T-11 IN SPINE. Past Anesthesia/Blood Transfusion Reactions: Motion Sickness, Postoperative Nausea & Vomiting (PONV) Past Psychological History: No Psychological Hx Reported Smoking Status: Never smoker Past Alcohol Use History: None Reported Past Drug Use History: None Reported - Past Family History Father History Unknown: Yes Family Medical History: Hypertension Additional Family Medical History / Comment(s): Pt left home as a teen and does not know parents PMH Mother History Unknown: Yes Family Medical History: No Reported History, Unable to Obtain Additional Family Medical History / Comment(s): NO FAMILY HISTORY General Exam Limitations: no limitations General appearance: alert, in no apparent distress Head exam: Present: atraumatic, normocephalic Eye exam: Present: normal appearance ENT exam: Present: normal exam Neck exam: Present: normal inspection Respiratory exam: Present: normal lung sounds bilaterally. Absent: respiratory distress, wheezes Cardiovascular Exam: Present: regular rate, normal rhythm GI/Abdominal exam: Present: soft, tenderness. Absent: distended Extremities exam: Present: normal inspection Back exam: Present: normal inspection Neurological exam: Present: alert, oriented X3 Psychiatric exam: Present: normal affect, normal mood Skin exam: Present: warm, dry, intact Course Vital Signs 03/24/18 15:44 Temperature 98.1 F Pulse Rate 86 Respiratory 20 Rate Blood Pressure 147/97 O2 Sat by Pulse 100 Oximetry Medical Decision Making - Medical Decision Making Patient presents with a chief complaint of abdominal pain after running into a stop shopping cart yesterday. She also complains of hematochezia. On initial evaluation, vitals are stable, patient is in no acute distress. She will be evaluated with basic labs including liver profile and lipase. Rectal exam will be performed. Patient will be sent for a computed tomography scan of the abdomen and pelvis with IV and oral contrast. She was given morphine and Zofran for symptomatic relief. 7:43 PM lab evaluation of this patient shows a mildly elevated white count but is otherwise unremarkable. there was no gross blood on rectal exam, however occult is positive. suspect internal hemorrhoids. CT shows no acute process. there is incidental finding of an unchanged abdominal wall seroma, and an ovarian cyst. patient updated on the results. at this time, she is stable for discharge and close follow up with PCP. prior to discharge, patient complains of a migraine headache. she was given a headache cocktail. - Lab Data Result diagrams: 03/24/18 16:41 03/24/18 16:41 Lab Results 03/24/18 03/24/18 03/24/18 Range/Units 16:41 16:41 Unknown WBC 12.2 H (3.8-10.6) k/uL RBC 4.35 (3.80-5.40) m/uL Hgb 13.3 (11.4-16.0) gm/dL Hct 39.3 (34.0-46.0) % MCV 90.2 (80.0-100.0) fL MCH 30.6 (25.0-35.0) pg MCHC 33.9 (31.0-37.0) g/dL RDW 13.4 (11.5-15.5) % Plt Count 319 (150-450) k/uL Neutrophils % 74 % Lymphocytes % 20 % Monocytes % 4 % Eosinophils % 1 % Basophils % 0 % Neutrophils # 9.0 H (1.3-7.7) k/uL Lymphocytes # 2.4 (1.0-4.8) k/uL Monocytes # 0.5 (0-1.0) k/uL Eosinophils # 0.2 (0-0.7) k/uL Basophils # 0.1 (0-0.2) k/uL Sodium 141 (137-145) mmol/L Potassium 4.1 (3.5-5.1) mmol/L Chloride 108 H (98-107) mmol/L Carbon Dioxide 26 (22-30) mmol/L Anion Gap 7 mmol/L BUN 15 (7-17) mg/dL Creatinine 0.67 (0.52-1.04) mg/dL Est GFR (CKD-EPI)AfAm >90 (>60 ml/min/1.73 sqM) Est GFR (CKD-EPI)NonAf >90 (>60 ml/min/1.73 sqM) Glucose 117 H (74-99) mg/dL Calcium 9.2 (8.4-10.2) mg/dL Total Bilirubin 0.3 (0.2-1.3) mg/dL AST 16 (14-36) U/L ALT 19 (9-52) U/L Alkaline Phosphatase 61 (38-126) U/L Total Protein 6.4 (6.3-8.2) g/dL Albumin 4.0 (3.5-5.0) g/dL Lipase 14 L (23-300) U/L Stool Occult Blood Positive H (Negative) Disposition Clinical Impression: Abdominal pain, Seroma, Ovarian cyst, Migraine headache Disposition: HOME SELF-CARE Condition: Good Is patient prescribed a controlled substance at d/c from ED?: No Referrals: Robbie Recio MD [Primary Care Provider] - 1-2 days
[2018-03-24 17:04] LABS: ALT 19 U/L (9-52); AST 16 U/L (14-36); Alkaline Phosphatase 61 U/L (38-126); Anion Gap 7 mmol/L; Blood Urea Nitrogen 15 mg/dL (7-17); Calcium 9.2 mg/dL (8.4-10.2); Carbon Dioxide 26 mmol/L (22-30); Chloride 108 mmol/L (98-107); Glucose 117 mg/dL (74-99); Lipase 14 U/L (23-300); Potassium 4.1 mmol/L (3.5-5.1); Sodium 141 mmol/L (137-145); Total Bilirubin 0.3 mg/dL (0.2-1.3); Total Protein 6.4 g/dL (6.3-8.2)
[2018-03-24 17:08] LABS: Basophils # (A) 0.1 k/uL (0-0.2); Basophils % (A) 0 %; Eosinophils # (A) 0.2 k/uL (0-0.7); Eosinophils % (A) 1 %; HCT 39.3 % (34.0-46.0); HGB 13.3 gm/dL (11.4-16.0); Lymphocytes # (A) 2.4 k/uL (1.0-4.8); Lymphocytes % (A) 20 %; MCH 30.6 pg (25.0-35.0); MCHC 33.9 g/dL (31.0-37.0); MCV 90.2 fL (80.0-100.0); Mean Platelet Volume 7.1; Monocytes # (A) 0.5 k/uL (0-1.0); Monocytes % (A) 4 %; Neutrophils % (A) 74 %; Platelet Count 319 k/uL (150-450); RBC 4.35 m/uL (3.80-5.40); RDW 13.4 % (11.5-15.5); WBC 12.2 k/uL (3.8-10.6)
--- NOTE | 2018-03-24 18:41 | CT ---
EXAMINATION TYPE: CT abdomen pelvis w con DATE OF EXAM: 03/24/2018 COMPARISON: 05/28/2017 HISTORY: Abdominal pain after injury CT DLP: 1885.1 mGycm Automated exposure control for dose reduction was used. TECHNIQUE: Helical acquisition of images was performed from the lung bases through the pelvis. CONTRAST: Performed with Oral Contrast and without and with IV Contrast, patient injected with 100 mL of Isovue 300. FINDINGS: Lung bases are clear. There is no pleural effusion. There is no pericardial effusion. There are bilat eral breast implants. Liver spleen pancreas gallbladder appear normal. Bile ducts are not dilated. St omach appears normal. There is no adrenal mass. Kidneys show satisfactory contrast opacification. There is no hydronephrosi s. Ureters are not dilated. There is no retroperitoneal adenopathy. There is subcutaneous edema aroun d the abdomen. There is a 3 cm cystic fluid collection in the subcutaneous fat over the anterior mid abdomen. Bladder distends smoothly. There is no inguinal hernia. There is no free fluid in the pelvis. There is a 4.5 cm cyst in the pelvis on the right side that is probably ovarian cyst. There is no evidence of a bowel obstruction. There is no sign of free air. The re is no ascites. There is no mesenteric edema. IMPRESSION: SUBCUTANEOUS CYST OVER THE ANTERIOR ABDOMEN NOT SIGNIFICANTLY DIFFERENT THAN OLD EXAM AND PROBABLY IS A SEROMA. THERE IS A NEW CYSTIC FLUID COLLECTION IN THE PELVIS ON THE RIGHT SIDE THAT IS PROBABLY OVARIAN CYST COMPARED TO OLD EXAM. FOLLOW-UP IS RECOMMENDED.
[2018-03-24] MEDS ORDERED: SODIUM CHLORIDE 0.9% 1,000 ML IV ONE (19:06)
[2018-03-24] MEDS ORDERED: diphenhydrAMINE 50 MG/ML 1 ML VIAL IVP STA (19:06)
[2018-03-24] MEDS ORDERED: PROCHLORPERAZINE 10 MG TAB PO STA (19:06)
[2018-03-24] MEDS ORDERED: KETOROLAC 30 MG/ML 1 ML VIAL IVP STA (19:06)
[2018-03-24] MEDS ORDERED: DEXAMETHASONE SOD PHOSPHATE 10 MG/ML 1 ML VIAL IV STA (19:06)
[2018-03-24 20:17] VITALS: BP 144/96; PULSE 76; RESP 16; TEMP 98.6
== END 2018-03-24 20:11 | disposition home or self-care (01) ==
LOC: EC 15:42
DX: N83.209 Unspecified ovarian cyst, unspecified side (principal); G43.909 Migraine, unspecified, not intractable, without status migrainosus; S30.1XXA Contusion of abdominal wall, initial encounter; J45.909 Unspecified asthma, uncomplicated; E11.9 Type 2 diabetes mellitus without complications; I10 Essential (primary) hypertension; Z79.4 Long term (current) use of insulin; Z79.51 Long term (current) use of inhaled steroids; Z79.899 Other long term (current) drug therapy; Z91.048 Other nonmedicinal substance allergy status; Z91.040 Latex allergy status; Z88.8 Allergy status to other drugs, medicaments and biological substances; W22.8XXA Striking against or struck by other objects, initial encounter
CPT/HCPCS: 99284; 96374; 96375 ×4; 96361; 36415; 80053; 83690; 85025; 82272; 74177; S0183; J2270; J1200; J1100; J2405; J1885; Q9967

== ENCOUNTER → 2018-03-29 | Outpatient (CLI) | payer BC, MEDICARE ==
[2018-03-29 12:29] LABS: Basophils # (A) 0.1 k/uL (0-0.2); Basophils % (A) 1 %; Eosinophils # (A) 0.3 k/uL (0-0.7); Eosinophils % (A) 3 %; HCT 40.1 % (34.0-46.0); HGB 13.5 gm/dL (11.4-16.0); Lymphocytes # (A) 2.3 k/uL (1.0-4.8); Lymphocytes % (A) 25 %; MCH 30.5 pg (25.0-35.0); MCHC 33.7 g/dL (31.0-37.0); MCV 90.7 fL (80.0-100.0); Mean Platelet Volume 7.2; Monocytes # (A) 0.4 k/uL (0-1.0); Monocytes % (A) 4 %; Neutrophils # (A) 6.2 k/uL (1.3-7.7); Neutrophils % (A) 67 %; Platelet Count 355 k/uL (150-450); RBC 4.41 m/uL (3.80-5.40); RDW 13.4 % (11.5-15.5); WBC 9.3 k/uL (3.8-10.6)
== END ==
LOC: LABWHC1 11:18
PROVIDERS: ATTEND Nurse Practitioner Family
DX: R79.9 Abnormal finding of blood chemistry, unspecified (principal)
CPT/HCPCS: 36415; 85025

== ENCOUNTER 2018-03-31 11:35 | Observation (INO) | payer BC, MEDICARE ==
--- NOTE | 2018-03-31 12:21 | ED ---
General Adult HPI - General Chief complaint: Recheck/Abnormal Lab/Rx Stated complaint: MS flare up Source: patient Mode of arrival: ambulatory Limitations: no limitations - History of Present Illness Initial comments: Dictation was produced using [employer] dictation software. please excuse any grammatical, word or spelling errors. Chief Complaint: 37 year old female past medical history of multiple sclerosis presents with MS flare and lower extremity swelling. History of Present Illness: He is a 47-year-old female past medical history of multiple sclerosis. She states that she is here for lower extremity swelling and MS flare. Patient was receiving infusions for ocrevus for her MS. Patient has not had any confusion for several months. States that she was evaluated by her neurologist for these symptoms before and she believes that her symptoms are from that medication. Patient states she's developed swelling to her bilateral lower extremities. Patient denies any shortness of breath. She feels as though she is having MS flare. She has not had any multiple sclerosis treatment which is whitish believes her multiple sclerosis is flaring up. She states her symptoms are of numbness in her lower extremities and pain. The ROS documented in this emergency department record has been reviewed and confirmed by me. Those systems with pertinent positive or negative responses have been documented in the HPI. All other systems are other negative and/or noncontributory. - Related Data Home Medications Medication Instructions Recorded Confirmed Albuterol Sulfate [Proair Hfa] See Taper INHALATION RT-Q6H PRN 09/26/15 03/31/18 Atorvastatin [Lipitor] 10 mg PO DAILY 09/26/15 03/31/18 Diclofenac Sodium [Voltaren Gel] 4 gm TOPICAL DAILY PRN 09/26/15 03/31/18 Levothyroxine Sodium [Synthroid] 100 mcg PO QAM 02/24/16 03/31/18 Morphine Pain Pump 8.35 mg EPIDURAL DAILY 06/22/16 03/31/18 DULoxetine HCL [Cymbalta] 60 mg PO QAM 01/10/17 03/31/18 Butalb/Acetaminophen/Caffeine 1 cap PO AC-TID PRN 01/16/17 03/31/18 [Esgic 50-325-40 Capsule] Ipratropium-Albuterol Nebulize 3 ml INHALATION RT-QID PRN 01/16/17 03/31/18 [Duoneb 0.5 mg-3 mg/3 ml Soln] INSULIN LISPRO (HumaLOG) [humaLOG] See Protocol SQ ACHS PRN 01/19/17 03/31/18 Cholecalciferol [Vitamin D3] 1,000 unit PO MOWE 03/03/17 03/31/18 Metoclopramide [Reglan] 10 mg PO QID PRN 03/03/17 03/31/18 Baclofen [Lioresal] 20 mg PO QID 04/26/17 03/31/18 tiZANidine HCL [Zanaflex] 2 mg PO QID 06/15/17 03/31/18 Scopolamine 1.5MG/72Hr Patch 1 patch TRANSDERM Q72H 07/07/17 03/31/18 [TransDerm Scop] rOPINIRole HCL [Requip] 1 mg PO TID 10/30/17 03/31/18 Metoprolol Tartrate [Lopressor] 25 mg PO BID 01/09/18 03/31/18 Gabapentin [Neurontin] 300 mg PO TID 02/06/18 03/31/18 Ketorolac [Toradol] 10 mg PO Q6HR PRN 02/06/18 03/31/18 Prochlorperazine [Compazine] 10 mg PO Q6H 02/06/18 03/31/18 diphenhydrAMINE [Benadryl] 75 mg PO DAILY PRN 02/11/18 03/31/18 predniSONE See Taper PO DAILY 02/11/18 03/31/18 Previous Rx's Medication Instructions Recorded Montelukast [Singulair] 10 mg PO DAILY #30 tab 06/23/16 Omeprazole 40 mg PO DAILY #60 capsule. 07/12/17 Lisinopril [Zestril] 20 mg PO DAILY #30 tab 12/19/17 metFORMIN HCL [Glucophage] 500 mg PO BID #60 tab 02/10/18 Famotidine [Pepcid] 20 mg PO BID #20 tablet 02/11/18 hydrOXYzine HCL [Atarax] 1 - 2 tab PO QID #30 tab 02/11/18 Allergies Allergy/AdvReac Type Severity Reaction Status Date / Time adhesive Allergy Severe Rash/Hives Verified 03/31/18 13:23 adhesive tape Allergy Severe Rash/Hives Verified 03/31/18 13:23 fentanyl Allergy Severe Rash/Hives Verified 03/31/18 13:23 latex Allergy Severe Rash/Hives Verified 03/31/18 13:23 Review of Systems ROS Statement: Those systems with pertinent positive or pertinent negative responses have been documented in the HPI. ROS Other: All systems not noted in ROS Statement are negative. Past Medical History Past Medical History: Asthma, Diabetes Mellitus, Hypertension, Musculoskeletal Disorder, Neurologic Disorder, Thyroid Disorder Additional Past Medical History / Comment(s): MS, back pain, DEGENERATIVE DISC DISEASE History of Any Multi-Drug Resistant Organisms: None Reported Past Surgical History: Bladder Surgery, Hernia Repair, Hysterectomy, Orthopedic Surgery, Tubal Ligation Additional Past Surgical History / Comment(s): rhinoplasty, bladder suspension, breast sx, morphine pump , RT KNEE SCOPE, TUMMY TUCK, SCS DEVICE INSERTED AND REMOVED-DOES NOT HAVE T-11 IN SPINE. Past Anesthesia/Blood Transfusion Reactions: Motion Sickness, Postoperative Nausea & Vomiting (PONV) Past Psychological History: No Psychological Hx Reported Smoking Status: Never smoker Past Alcohol Use History: None Reported Past Drug Use History: None Reported - Past Family History Father History Unknown: Yes Family Medical History: Hypertension Additional Family Medical History / Comment(s): Pt left home as a teen and does not know parents PMH Mother History Unknown: Yes Family Medical History: No Reported History, Unable to Obtain Additional Family Medical History / Comment(s): NO FAMILY HISTORY General Exam - General Exam Comments Initial Comments: PHYSICAL EXAM: General Impression: Alert and oriented x3, not in acute distress HEENT: Normocephalic atraumatic, extra-ocular movements intact, pupils equal and reactive to light bilaterally, mucous membranes moist. Cardiovascular: Heart regular rate and rhythm, S1&S2 audible, no murmurs, rubs or gallops Chest: Lungs clear to auscultation bilaterally, no rhonchi, no wheeze, no rales Abdomen: Bowel sounds present, abdomen soft, non-tender, non-distended, no organomegaly Musculoskeletal: Pulses present and equal in all extremities, 1+ pitting edema of bilateral lower extremities Motor: Power 5/5 bilaterally, no focal deficits noted Neurological: CN II-XII grossly intact, no focal motor or sensory deficits to light touch noted Skin: Intact with no visualized rashes Psych: Normal affect and mood Limitations: no limitations Course Vital Signs 03/31/18 03/31/18 03/31/18 11:37 12:15 13:06 Temperature 98.2 F Pulse Rate 90 78 Respiratory 20 18 16 Rate Blood Pressure 158/94 149/89 O2 Sat by Pulse 99 99 Oximetry Medical Decision Making - Medical Decision Making ED course: 47-year-old female past medical history of multiple sclerosis presents with lower extremity swelling. Vital signs upon arrival are within acceptable limits. Discussed patient case with Dr. Winters who agrees with headache cocktail and administration of steroids here. He does not believe that her symptoms are secondary to the antibiotic treatment. Recommends that patient be seen outpatient for outpatient management of multiple sclerosis. Laboratory evaluation is unremarkable. Patient case was discussed with Dr. Recio who works closely Dr. Rivera. Allegedly she was fired from their practice. Plans to admit patient to on-call medical service with neurology on consultation. - Lab Data Result diagrams: 03/31/18 12:40 03/31/18 12:40 Lab Results 03/31/18 03/31/18 03/31/18 Range/Units 12:40 12:40 12:40 WBC 8.3 (3.8-10.6) k/uL RBC 4.28 (3.80-5.40) m/uL Hgb 12.7 (11.4-16.0) gm/dL Hct 38.4 (34.0-46.0) % MCV 89.6 (80.0-100.0) fL MCH 29.6 (25.0-35.0) pg MCHC 33.1 (31.0-37.0) g/dL RDW 13.2 (11.5-15.5) % Plt Count 324 (150-450) k/uL Neutrophils % 63 % Lymphocytes % 27 % Monocytes % 4 % Eosinophils % 4 % Basophils % 1 % Neutrophils # 5.2 (1.3-7.7) k/uL Lymphocytes # 2.3 (1.0-4.8) k/uL Monocytes # 0.3 (0-1.0) k/uL Eosinophils # 0.3 (0-0.7) k/uL Basophils # 0.1 (0-0.2) k/uL PT (9.0-12.0) sec INR (<1.2) APTT (22.0-30.0) sec Sodium 140 (137-145) mmol/L Potassium 4.2 (3.5-5.1) mmol/L Chloride 108 H (98-107) mmol/L Carbon Dioxide 27 (22-30) mmol/L Anion Gap 5 mmol/L BUN 12 (7-17) mg/dL Creatinine 0.61 (0.52-1.04) mg/dL Est GFR (CKD-EPI)AfAm >90 (>60 ml/min/1.73 sqM) Est GFR (CKD-EPI)NonAf >90 (>60 ml/min/1.73 sqM) Glucose 107 H (74-99) mg/dL Calcium 9.0 (8.4-10.2) mg/dL Total Bilirubin 0.2 (0.2-1.3) mg/dL AST 16 (14-36) U/L ALT 29 (9-52) U/L Alkaline Phosphatase 58 (38-126) U/L Total Creatine Kinase 51 (30-135) U/L CK-MB (CK-2) <0.2 (0.0-2.4) ng/mL CK-MB (CK-2) Rel Index Troponin I <0.012 (0.000-0.034) ng/mL NT-Pro-B Natriuret Pep pg/mL Total Protein 5.7 L (6.3-8.2) g/dL Albumin 3.4 L (3.5-5.0) g/dL 03/31/18 03/31/18 Range/Units 12:40 12:40 WBC (3.8-10.6) k/uL RBC (3.80-5.40) m/uL Hgb (11.4-16.0) gm/dL Hct (34.0-46.0) % MCV (80.0-100.0) fL MCH (25.0-35.0) pg MCHC (31.0-37.0) g/dL RDW (11.5-15.5) % Plt Count (150-450) k/uL Neutrophils % % Lymphocytes % % Monocytes % % Eosinophils % % Basophils % % Neutrophils # (1.3-7.7) k/uL Lymphocytes # (1.0-4.8) k/uL Monocytes # (0-1.0) k/uL Eosinophils # (0-0.7) k/uL Basophils # (0-0.2) k/uL PT 9.6 (9.0-12.0) sec INR 0.9 (<1.2) APTT 22.6 (22.0-30.0) sec Sodium (137-145) mmol/L Potassium (3.5-5.1) mmol/L Chloride (98-107) mmol/L Carbon Dioxide (22-30) mmol/L Anion Gap mmol/L BUN (7-17) mg/dL Creatinine (0.52-1.04) mg/dL Est GFR (CKD-EPI)AfAm (>60 ml/min/1.73 sqM) Est GFR (CKD-EPI)NonAf (>60 ml/min/1.73 sqM) Glucose (74-99) mg/dL Calcium (8.4-10.2) mg/dL Total Bilirubin (0.2-1.3) mg/dL AST (14-36) U/L ALT (9-52) U/L Alkaline Phosphatase (38-126) U/L Total Creatine Kinase (30-135) U/L CK-MB (CK-2) (0.0-2.4) ng/mL CK-MB (CK-2) Rel Index Troponin I (0.000-0.034) ng/mL NT-Pro-B Natriuret Pep 127 pg/mL Total Protein (6.3-8.2) g/dL Albumin (3.5-5.0) g/dL Disposition Clinical Impression: Multiple sclerosis Disposition: ADMITTED IP TO THIS HOSP Condition: Good Referrals: Robbie Recio MD [Primary Care Provider] - 1-2 days Decision Time: 14:23
[2018-03-31] MEDS ORDERED: KETOROLAC 30 MG/ML 1 ML VIAL IVP STA (12:27)
[2018-03-31] MEDS ORDERED: diphenhydrAMINE 50 MG/ML 1 ML VIAL IVP STA (12:28)
[2018-03-31] MEDS ORDERED: METOCLOPRAMIDE 5 MG/ML 2 ML VIAL IVP STA (12:28)
[2018-03-31] MEDS ORDERED: DEXAMETHASONE SOD PHOSPHATE 10 MG/ML 1 ML VIAL IV STA (12:30)
[2018-03-31] MEDS ORDERED: ONDANSETRON 4 MG/2 ML VIAL IVP STA (12:51)
[2018-03-31 13:08] LABS: Basophils # (A) 0.1 k/uL (0-0.2); Basophils % (A) 1 %; Eosinophils # (A) 0.3 k/uL (0-0.7); Eosinophils % (A) 4 %; HCT 38.4 % (34.0-46.0); HGB 12.7 gm/dL (11.4-16.0); Lymphocytes # (A) 2.3 k/uL (1.0-4.8); Lymphocytes % (A) 27 %; MCH 29.6 pg (25.0-35.0); MCHC 33.1 g/dL (31.0-37.0); MCV 89.6 fL (80.0-100.0); Monocytes # (A) 0.3 k/uL (0-1.0); Monocytes % (A) 4 %; Neutrophils # (A) 5.2 k/uL (1.3-7.7); Neutrophils % (A) 63 %; Platelet Count 324 k/uL (150-450); RBC 4.28 m/uL (3.80-5.40); RDW 13.2 % (11.5-15.5); WBC 8.3 k/uL (3.8-10.6)
[2018-03-31 13:17] LABS: ALT 29 U/L (9-52); AST 16 U/L (14-36); Albumin 3.4 g/dL (3.5-5.0); Alkaline Phosphatase 58 U/L (38-126); Anion Gap 5 mmol/L; Blood Urea Nitrogen 12 mg/dL (7-17); Carbon Dioxide 27 mmol/L (22-30); Chloride 108 mmol/L (98-107); Glucose 107 mg/dL (74-99); Potassium 4.2 mmol/L (3.5-5.1); Sodium 140 mmol/L (137-145); Total Bilirubin 0.2 mg/dL (0.2-1.3); Total Protein 5.7 g/dL (6.3-8.2)
--- NOTE | 2018-03-31 13:33 | XR ---
EXAMINATION TYPE: XR chest 2V DATE OF EXAM: 03/31/2018 COMPARISON: 12/15/2017 INDICATION: MS flare and lower extremity swelling TECHNIQUE: Frontal and lateral views of the chest are obtained. FINDINGS: The heart size is normal. The pulmonary vasculature is normal. The lungs are clear. IMPRESSION: 1. No acute pulmonary process.
[2018-03-31 13:34] LABS: Creatine Kinase 51 U/L (30-135)
[2018-03-31 13:41] LABS: INR 0.9 (<1.2); Partial Thromboplastin Time 22.6 sec (22.0-30.0); Prothrombin Time 9.6 sec (9.0-12.0)
[2018-03-31 13:47] LABS: Creatine Kinase MB <0.2 ng/mL (0.0-2.4); Troponin I <0.012 ng/mL (0.000-0.034)
[2018-03-31] MEDS ORDERED: NALOXONE 0.4 MG/ML 1 ML VIAL IV PRN (14:24)
[2018-03-31] MEDS ORDERED: ACETAMINOPHEN TAB 500 MG TAB PO STA (14:51)
[2018-03-31] MEDS ORDERED: diphenhydrAMINE 25 MG CAP PO PRN (16:05)
[2018-03-31] MEDS ORDERED: DICLOFENAC SODIUM GEL 100 GM TUBE TOPICAL PRN (16:05)
[2018-03-31] MEDS ORDERED: IPRATROPIUM-ALBUTEROL 3 ML NEB INHALATION PRN (16:05)
[2018-03-31] MEDS ORDERED: BUTALB/APAP/CAFF 50-325-40MG TAB PO PRN (16:05)
[2018-03-31] MEDS ORDERED: ACETAMINOPHEN TAB 500 MG TAB PO PRN (16:09)
[2018-03-31] MEDS ORDERED: ALPRAZolam 0.25 MG TAB PO PRN (16:09)
[2018-03-31] MEDS ORDERED: methylPREDNISolone SOD SUCCI 125 MG/2 ML VIAL IV SCH (16:15)
[2018-03-31 16:59] LABS: Glucose,Whole Blood 127 mg/dL (75-99)
[2018-03-31] MEDS ORDERED: SCOPOLAMINE 1.5MG/72HR PATCH TRANSDERM SCH (17:00)
[2018-03-31] MEDS: BACLOFEN 10 MG TAB PO SCH ×2 (17:15→21:20)
[2018-03-31] MEDS: FAMOTIDINE 20 MG TAB PO SCH (17:15)
[2018-03-31] MEDS: INSULIN ASPART 100 UNIT/ML 1 ML 10 ML VIAL SQ SCH ×2 (17:16→21:21)
[2018-03-31] MEDS: methylPREDNISolone SOD SUCCI 250 MG in SODIUM CHLORIDE 0.9% 100 ML IVPB SCH ×2 (17:16→23:41)
[2018-03-31] MEDS ORDERED: hydrOXYzine HCL 25 MG TAB PO PRN (18:00)
--- NOTE | 2018-03-31 19:19 | HP ---
HISTORY AND PHYSICAL DATE OF ADMISSION: 03/31/2018 I am covering for Dr. Recio. CHIEF COMPLAINTS: Weakness, tiredness and leg pain. HISTORY OF PRESENT ILLNESS: This 47-year-old woman with a past medical history of multiple medical problems including multiple sclerosis, asthma, diabetes mellitus, hypertension, history of hypothyroidism, being followed by [facility] and Dr. No in the outpatient setting was taking MS medications recently but the patient is unable to tolerate because of allergies. The patient apparently had injury with a shopping cart about a week ago and the patient came to [facility]. Patient also had apparently some rectal bleeding. CT scan showed only a cyst and the patient improved significantly. Patient went home. Currently the patient is complaining of abdominal pain, diffuse leg pain, weakness, and the patient is admitted for further evaluation and treatment. There is no history of fever, rigors or chills. No history of headache, loss of consciousness or seizures. PAST MEDICAL HISTORY: History of asthma, MS, diabetes, hypertension, DJD, history of hypothyroidism. MEDICATIONS: Home medications are reviewed which include: 1. Zanaflex 2 mg q.i.d. 2. Requip 1 mg p.o. t.i.d. 3. Glucophage 500 mg b.i.d. 5. Benadryl 75 mg p.o. daily p.r.n. 6. Transderm patch 1 patch q.72h hours. 7. Omeprazole 40 mg p.o. daily. 8. Singulair 10 mg p.o. daily. 9. Lopressor 25 mg p.o. b.i.d. 10.Zestril 20 mg. 11.Synthroid 120 mcg p.o. q.a.m. 12.DuoNeb q.i.d. p.r.n. 13.Humalog scale. 14.Pepcid 20 mg p.o. b.i.d. 15.Voltaren 4 mg b.i.d. p.r.n. 16.Cymbalta 60 mg p.o. q.a.m. 17.Vitamin D3 1000 p.o. Monday, Monday. 18.Butalbital 1 capsule t.i.d. p.r.n. 19.Lioresal 20 mg q.h.s. 20.Lipitor 10 mg daily. 21.ProAir HFA q.6h p.r.n. ALLERGIES: ADHESIVES, FENTANYL and LATEX. FAMILY HISTORY: History of hypertension in the family. SOCIAL HISTORY: No history of smoking. No history of alcohol intake. REVIEW OF SYSTEMS: ENT: No diminished vision. No diminished hearing. CARDIOVASCULAR: No angina or palpitations. RESPIRATORY: No cough. GI no nausea or vomiting. : No dysuria. NERVOUS SYSTEM: As mentioned earlier. ALLERGY/IMMUNOLOGY: No asthma or hayfever. MUSCULOSKELETAL: As mentioned earlier. HEMATOLOGY/ONCOLOGY: No history of anemia. ENDOCRINE: Hypothyroidism and diabetes. CONSTITUTIONAL: As mentioned. Dermatology: Negative. Rheumatology: Negative. Psychiatry: As mentioned earlier. PHYSICAL EXAMINATION: GENERAL: Alert and oriented times three. VITAL SIGNS: Pulse is 74, blood pressure 160/86, respiration 16, temperature 97.8, pulse ox 99% on room air. HEENT: Conjunctivae normal. Oral mucosa moist. NECK is no jugular venous distention. No carotid bruit. No lymph node enlargement. CARDIOVASCULAR: S1, S2. No S3. No S4. RESPIRATORY: Breath sounds diminished in the bases. No rhonchi. No crackles. ABDOMEN: Soft, obese, mild diffuse discomfort. No guarding. No rigidity. No mass palpable. No tenderness. Bowel sounds present. Ascites. LEGS: Minimal edema otherwise. Moves all 4 limbs. NERVOUS SYSTEM: Higher functions minimal diffuse weakness present. No signs of cerebellar incoordination. SKIN: No ulcer, rash or bleeding. Lymphatics: No lymph nodes palpable in the neck, axillae or groin. JOINTS: No active deforming arthropathy. LABS: At this time shows CBC within normal limits, chloride is 108, albumin 3.4. ASSESSMENT: 1. Generalized aches and pains and also weakness and multiple sclerosis acute exacerbation. 2. History of asthma. 3. Diabetes mellitus type 2. 4. Hypertension. 5. Degenerative joint disease. 6. History of hypothyroidism. 7. History of back pain. 8. History of bladder surgery. RECOMMENDATIONS AND DISCUSSION: In this 47-year-old woman who presented with multiple complex medical issues, we will monitor the patient closely. Continue the current medications, management and symptomatic treatment. Otherwise, at this time, I recommend initiate high-dose intravenous steroids. Monitor blood sugars closely. If blood sugar is more than 300, recommend IV insulin drip. Continue rest of medications. Pain medications. Prognosis guarded. Further recommendations to follow. A copy of dictation being forwarded to Dr. Recio, who is the primary care physician, who will follow the patient on Monday. POONAM / GANGA: [id number] / MTDD
[2018-03-31] MEDS: HYDROcodone/APAP 5-325MG 1 EACH TAB PO PRN (19:26)
[2018-03-31] MEDS: diphenhydrAMINE 50 MG/ML 1 ML VIAL IVP PRN (20:13)
[2018-03-31 20:42] LABS: Glucose,Whole Blood 262 mg/dL (75-99)
[2018-03-31] MEDS: TEMAZEPAM 15 MG CAP PO PRN (21:20)
[2018-03-31] MEDS: metFORMIN 500 MG TAB PO SCH (21:21)
[2018-03-31] MEDS: METOPROLOL TARTRATE 25 MG TAB PO SCH (21:21)
[2018-03-31] MEDS: HEPARIN SODIUM,PORCINE 5,000 UNIT/ML 1 ML VIAL SQ SCH (21:21)
[2018-04-01] MEDS: HYDROmorphone 0.5 MG/0.5 ML SYRINGE IVP PRN ×2 (00:10→06:50)
[2018-04-01] MEDS: diphenhydrAMINE 50 MG/ML 1 ML VIAL IVP PRN ×3 (02:50→21:21)
[2018-04-01] MEDS: HYDROcodone/APAP 5-325MG 1 EACH TAB PO PRN ×3 (02:51→16:52)
[2018-04-01] MEDS: LEVOTHYROXINE 100 MCG TAB PO SCH (05:53)
[2018-04-01 07:18] LABS: Glucose,Whole Blood 195 mg/dL (75-99)
[2018-04-01 07:18] LABS: Basophils % (A) 0 %; Eosinophils # (A) 0.1 k/uL (0-0.7); Eosinophils % (A) 0 %; HCT 39.2 % (34.0-46.0); HGB 12.8 gm/dL (11.4-16.0); Lymphocytes # (A) 1.3 k/uL (1.0-4.8); Lymphocytes % (A) 8 %; MCH 29.4 pg (25.0-35.0); MCHC 32.7 g/dL (31.0-37.0); MCV 90.1 fL (80.0-100.0); Mean Platelet Volume 7.2; Monocytes # (A) 0.1 k/uL (0-1.0); Monocytes % (A) 1 %; Neutrophils # (A) 14.6 k/uL (1.3-7.7); Neutrophils % (A) 91 %; Platelet Count 362 k/uL (150-450); RBC 4.35 m/uL (3.80-5.40); RDW 13.1 % (11.5-15.5); WBC 16.1 k/uL (3.8-10.6)
[2018-04-01 07:26] LABS: Anion Gap 7 mmol/L; Blood Urea Nitrogen 14 mg/dL (7-17); Calcium 9.3 mg/dL (8.4-10.2); Carbon Dioxide 24 mmol/L (22-30); Chloride 109 mmol/L (98-107); Glucose 210 mg/dL (74-99); Potassium 4.4 mmol/L (3.5-5.1); Sodium 140 mmol/L (137-145)
[2018-04-01] MEDS: metFORMIN 500 MG TAB PO SCH (08:16)
[2018-04-01] MEDS: MONTELUKAST 10 MG TAB PO SCH (08:16)
[2018-04-01] MEDS: BACLOFEN 10 MG TAB PO SCH ×4 (08:16→20:53)
[2018-04-01] MEDS: ATORVASTATIN 10 MG TAB PO SCH (08:16)
[2018-04-01] MEDS: PANTOPRAZOLE 40 MG TABLET PO SCH (08:16)
[2018-04-01] MEDS: METOPROLOL TARTRATE 25 MG TAB PO SCH ×2 (08:16→20:53)
[2018-04-01] MEDS: LISINOPRIL 20 MG TAB PO SCH (08:17)
[2018-04-01] MEDS: HEPARIN SODIUM,PORCINE 5,000 UNIT/ML 1 ML VIAL SQ SCH (08:17)
[2018-04-01] MEDS: DULoxetine HCL 60 MG CAPSULE.DR PO SCH (08:17)
[2018-04-01] MEDS: FAMOTIDINE 20 MG TAB PO SCH ×2 (08:17→20:53)
[2018-04-01] MEDS: INSULIN ASPART 100 UNIT/ML 1 ML 10 ML VIAL SQ SCH ×4 (08:18→20:56)
[2018-04-01] MEDS: methylPREDNISolone SOD SUCCI 250 MG in SODIUM CHLORIDE 0.9% 100 ML IVPB SCH ×3 (08:26→20:55)
[2018-04-01 11:51] LABS: Glucose,Whole Blood 228 mg/dL (75-99)
--- NOTE | 2018-04-01 12:05 | P.PN ---
Subjective This is a 47-year-old white female with multiple medical issues who came emergency room with complaints of tingling or numbness to hands or feet in complaining of a flareup of multiple sclerosis. She currently sees Dr. No outpatient for MS treatment. There was not significant impairment noted time other than the subjective symptoms, per the emergency room physician. Patient also complained of significant abdominal pain with my visit to her today. She reports running into a concrete barrier with a shopping cart 1 week ago, made her abdominal pain worse. She indicates that since then she's had some bright red blood per rectum. She is noted to have a history of hemorrhoids as well. She sees Dr. Killian for GI problems and his multiple surgeries in the past for abdomen, including a hernia repair 11 months ago. Currently she denies any chest pains, pressures, shortness of breath. This to play significant swelling and relates that to a recent MS treatment about 6 months ago. Due to a miscommunication with my office, the patient was seen by Dr. Aguirre, the hospitalist, initially, I am taking over her care at this time. Objective - Vital Signs Vital signs: Vital Signs Temp 98.9 F 04/01/18 06:00 Pulse 72 04/01/18 06:00 Resp 20 04/01/18 06:00 BP 147/83 04/01/18 06:00 Pulse Ox 92 L 04/01/18 06:00 Intake & Output 03/31/18 04/01/18 04/01/18 18:59 06:59 18:59 Intake Total 800 Balance 800 Weight 104.326 kg 104.326 kg Intake: Oral 800 Other: Voiding Method Toilet Toilet Toilet # Voids 1 2 - Exam GENERAL: Morbidly obese female in no acute distress. 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 EYES: Pupils equal round and reactive to light, extraocular movements intact, sclera anicteric, conjunctiva are normal. ENT:nares patent, oropharynx clear without exudates. Moist mucous membranes. NECK: Normal range of motion, supple without lymphadenopathy or JVD, no thyromegaly LUNGS: Breath sounds clear to auscultation bilaterally and equal. No wheezes rales or rhonchi. HEART: Regular rate and rhythm without murmurs, rubs or gallops.S1S2 Normal ABDOMEN: Soft, nontender, normoactive bowel sounds. No guarding, no rebound. No masses appreciated. EXTREMITIES: Normal range of motion, minimal pitting +1 edema to the lower extremities. No clubbing or cyanosis. NEUROLOGICAL: Cranial nerves II through XII grossly intact. Normal speech, normal gait. There is weakness to the left hand grasp. Strength with standing is normal on each leg independently. She ambulates without assistance. PSYCH: Depressed mood, normal affect. SKIN: Warm, Dry, normal turgor, no rashes or lesions noted. - Labs CBC & Chem 7: 04/01/18 06:39 04/01/18 06:39 Labs: Abnormal Lab Results - Last 24 Hours (Table) 03/31/18 03/31/18 03/31/18 Range/Units 12:40 16:56 20:39 WBC (3.8-10.6) k/uL Neutrophils # (1.3-7.7) k/uL Chloride 108 H (98-107) mmol/L Glucose 107 H (74-99) mg/dL POC Glucose (mg/dL) 127 H 262 H (75-99) mg/dL Total Protein 5.7 L (6.3-8.2) g/dL Albumin 3.4 L (3.5-5.0) g/dL 04/01/18 04/01/18 04/01/18 Range/Units 06:39 06:39 07:14 WBC 16.1 H (3.8-10.6) k/uL Neutrophils # 14.6 H (1.3-7.7) k/uL Chloride 109 H (98-107) mmol/L Glucose 210 H (74-99) mg/dL POC Glucose (mg/dL) 195 H (75-99) mg/dL Total Protein (6.3-8.2) g/dL Albumin (3.5-5.0) g/dL 04/01/18 Range/Units 11:49 WBC (3.8-10.6) k/uL Neutrophils # (1.3-7.7) k/uL Chloride (98-107) mmol/L Glucose (74-99) mg/dL POC Glucose (mg/dL) 228 H (75-99) mg/dL Total Protein (6.3-8.2) g/dL Albumin (3.5-5.0) g/dL Assessment and Plan (1) Exacerbation of multiple sclerosis Current Visit: Yes Status: Acute Code(s): G35 - MULTIPLE SCLEROSIS SNOMED Code(s): 625707640 (2) Abdominal pain Current Visit: Yes Status: Acute Code(s): R10.9 - UNSPECIFIED ABDOMINAL PAIN SNOMED Code(s): 98920247 (3) Multiple sclerosis Current Visit: Yes Status: Chronic Code(s): G35 - MULTIPLE SCLEROSIS SNOMED Code(s): 34908030 (4) Headache Current Visit: Yes Status: Acute Code(s): R51 - HEADACHE SNOMED Code(s): 70705219 (5) Paresthesias Current Visit: Yes Status: Acute Code(s): R20.2 - PARESTHESIA OF SKIN SNOMED Code(s): 53836078 (6) Diabetes Narrative/Plan: HbA1c was 6.3 on 02/06/2018 Current Visit: Yes Status: Acute Code(s): E11.9 - TYPE 2 DIABETES MELLITUS WITHOUT COMPLICATIONS SNOMED Code(s): 05074199 (7) Somatization disorder Current Visit: Yes Status: Acute Code(s): F45.0 - SOMATIZATION DISORDER SNOMED Code(s): 431426806 Plan: We'll consult neurology and general surgery for her MS complaints and her abdominal pain complaints. She has a known old seroma over the anterior abdomen. There is a new ovarian cyst on the right lower quadrant from her 03/24 CT, that may explain some of her pain. Otherwise it was negative. We'll repeat labs in a.m. She'll be reevaluate next 24 hours.
[2018-04-01] MEDS ORDERED: KETOROLAC 30 MG/ML 1 ML VIAL IVP PRN (12:08)
[2018-04-01] MEDS: LOPERAMIDE 2 MG CAP PO PRN ×2 (14:25→19:41)
[2018-04-01] MEDS ORDERED: SODIUM CHLORIDE 0.9% 1,000 ML IV ONE (15:07)
--- NOTE | 2018-04-01 15:07 | P.GSCN ---
History of Present Illness Consult date: 04/01/18 History of present illness: CHIEF COMPLAINT: Abdominal pain HISTORY OF PRESENT ILLNESS: The patient is a 47-year-old female who over 1 week ago on 03/24/2018 presented to the ER following a trauma to the abdomen. She reports a grocery cart had hit a cement pillar and into her abdomen. At that time she had gross blood in her stools. She was seen in the emergency room and subsequently released. She has history of multiple sclerosis. She now presents with exacerbation of her multiple sclerosis including persistent abdominal pain. Since her trauma over 1 week ago, her pain is still persistent along the periumbilical area. She has past surgical history of a colectomy, hiatal hernia repair including upper endoscopies. She denies any previous colonoscopies. She has also incidental finding of a cyst of the ovary. She reports abdominal gas bloat as well. Her pain is otherwise monitor. PAST MEDICAL HISTORY: Please see list PAST SURGICAL HISTORY: Please see list MEDICATIONS: Please see list ALLERGIES: Please see list SOCIAL HISTORY: No illicit drug use or recent tobacco use FAMILY HISTORY: Noncontributory REVIEW OF ORGAN SYSTEMS: CONSTITUTIONAL: No reports of fevers or chills. HEENT: Denies any troubles with the vision or hearing. ENDOCRINE: Has hypothyroidism. Has diabetes. RESPIRATORY: No recent pneumonias. CARDIOVASCULAR: Denies chest pain or palpitations GI: Had blood in stools. No constipation. MUSCULOSKELETAL: Has joint pain including back pain. NEURO: No seizure disorders or headaches. No recent stroke. PSYCH: Has depression. No suicidal ideation. GENITOURINARY: No active blood in urine. No urinary hesitancy. History of ovarian cyst. HEMATOLOGIC: No personal or family history of DVTs or pulmonary emboli. SKIN: No skin cancer. No rash PHYSICAL EXAM: VITAL SIGNS: Reviewed GENERAL: Well-developed pleasant in no acute distress. HEENT: No scleral icterus. Extraocular movements grossly intact. Moist buccal mucosa. NECK: Supple without lymphadenopathy. CHEST: Unlabored respirations. Equal bilateral excursions. CARDIOVASCULAR: Regular rate regular rhythm rhythm. Distal 2+ pulses. ABDOMEN: Soft, mildy distended. Tender along the lower abdomen and periumbilical area. Absent umbilicus from previous panniculectomy MUSCULOSKELETAL: No clubbing, cyanosis, or edema. NEURO: Cranial nerves II to XII within normal limits. No focal or lateralizing signs. PSYCH: Alert and oriented to person, place and time. SKIN: Well-perfused good skin turgor. ASSESSMENT: 1. Lower abdominal pain 2. History of hematochezia 3. History of ovarian cyst 4. Multiple sclerosis PLAN: 1. Her previous computed tomography scan was reviewed however as his symptoms progress, recommend repeat imaging. 2. Gynecology consultation for increase in size of ovarian cyst 3. Colonoscopy on hold should she have another episode of rectal bleeding 4. Most of her pain is lower abdomen, no upper endoscopy at this time. Past Medical History Past Medical History: Asthma, Diabetes Mellitus, Hypertension, Musculoskeletal Disorder, Neurologic Disorder, Thyroid Disorder Additional Past Medical History / Comment(s): MS, back pain, DEGENERATIVE DISC DISEASE History of Any Multi-Drug Resistant Organisms: None Reported Past Surgical History: Bladder Surgery, Hernia Repair, Hysterectomy, Orthopedic Surgery, Tubal Ligation Additional Past Surgical History / Comment(s): rhinoplasty, bladder suspension, breast sx, morphine pump , RT KNEE SCOPE, TUMMY TUCK, SCS DEVICE INSERTED AND REMOVED-DOES NOT HAVE T-11 IN SPINE. Past Anesthesia/Blood Transfusion Reactions: Motion Sickness, Postoperative Nausea & Vomiting (PONV) Past Psychological History: No Psychological Hx Reported Additional Psychological History / Comment(s): Pt resides with her spouse and a 16 yr old mindy. She has a glucometer. She is independent. Smoking Status: Never smoker Past Alcohol Use History: None Reported Past Drug Use History: None Reported - Past Family History Father History Unknown: Yes Family Medical History: Hypertension Additional Family Medical History / Comment(s): Pt left home as a teen and does not know parents PMH Mother History Unknown: Yes Family Medical History: No Reported History, Unable to Obtain Additional Family Medical History / Comment(s): NO FAMILY HISTORY Medications and Allergies Home Medications Medication Instructions Recorded Confirmed Type Albuterol Sulfate [Proair Hfa] See Taper INHALATION RT-Q6H PRN 09/26/15 History Atorvastatin [Lipitor] 10 mg PO DAILY 09/26/15 03/31/18 History Diclofenac Sodium [Voltaren Gel] 4 gm TOPICAL DAILY PRN 09/26/15 03/31/18 History Levothyroxine Sodium [Synthroid] 100 mcg PO QAM 02/24/16 03/31/18 History Montelukast [Singulair] 10 mg PO DAILY #30 tab 06/23/16 03/31/18 Rx DULoxetine HCL [Cymbalta] 60 mg PO QAM 01/10/17 03/31/18 History Butalb/Acetaminophen/Caffeine 1 cap PO AC-TID PRN 01/16/17 03/31/18 History [Esgic 50-325-40 Capsule] Ipratropium-Albuterol Nebulize 3 ml INHALATION RT-QID PRN 01/16/17 03/31/18 History [Duoneb 0.5 mg-3 mg/3 ml Soln] INSULIN LISPRO (HumaLOG) [humaLOG] See Protocol SQ ACHS PRN 01/19/17 03/31/18 History Cholecalciferol [Vitamin D3] 1,000 unit PO MOWE 03/03/17 03/31/18 History Baclofen [Lioresal] 20 mg PO QID 04/26/17 03/31/18 History tiZANidine HCL [Zanaflex] 2 mg PO QID 06/15/17 03/31/18 History Scopolamine 1.5MG/72Hr Patch 1 patch TRANSDERM Q72H 07/07/17 03/31/18 History [TransDerm Scop] Omeprazole 40 mg PO DAILY #60 capsule. 07/12/17 03/31/18 Rx rOPINIRole HCL [Requip] 1 mg PO TID 10/30/17 03/31/18 History Lisinopril [Zestril] 20 mg PO DAILY #30 tab 12/19/17 03/31/18 Rx Metoprolol Tartrate [Lopressor] 25 mg PO BID 01/09/18 03/31/18 History metFORMIN HCL [Glucophage] 500 mg PO BID #60 tab 02/10/18 03/31/18 Rx Famotidine [Pepcid] 20 mg PO BID #20 tablet 02/11/18 03/31/18 Rx diphenhydrAMINE [Benadryl] 75 mg PO DAILY PRN 02/11/18 03/31/18 History hydrOXYzine HCL [Atarax] 1 - 2 tab PO QID #30 tab 02/11/18 03/31/18 Rx Allergies Allergy/AdvReac Type Severity Reaction Status Date / Time adhesive Allergy Severe Rash/Hives Verified 03/31/18 13:23 adhesive tape Allergy Severe Rash/Hives Verified 03/31/18 13:23 fentanyl Allergy Severe Rash/Hives Verified 03/31/18 13:23 latex Allergy Severe Rash/Hives Verified 03/31/18 13:23 Surgical - Exam Vital Signs Temp Pulse Resp BP Pulse Ox 98.2 F 90 20 158/94 99 03/31/18 11:37 03/31/18 11:37 03/31/18 11:37 03/31/18 11:37 03/31/18 11:37 Results - Labs 04/01/18 06:39 04/01/18 06:39 Abnormal Lab Results - Last 24 Hours (Table) 03/31/18 03/31/18 04/01/18 Range/Units 16:56 20:39 06:39 WBC 16.1 H (3.8-10.6) k/uL Neutrophils # 14.6 H (1.3-7.7) k/uL Chloride (98-107) mmol/L Glucose (74-99) mg/dL POC Glucose (mg/dL) 127 H 262 H (75-99) mg/dL 04/01/18 04/01/18 04/01/18 Range/Units 06:39 07:14 11:49 WBC (3.8-10.6) k/uL Neutrophils # (1.3-7.7) k/uL Chloride 109 H (98-107) mmol/L Glucose 210 H (74-99) mg/dL POC Glucose (mg/dL) 195 H 228 H (75-99) mg/dL Diabetes panel 04/01/18 Range/Units 06:39 Sodium 140 (137-145) mmol/L Potassium 4.4 (3.5-5.1) mmol/L Chloride 109 H (98-107) mmol/L Carbon Dioxide 24 (22-30) mmol/L BUN 14 (7-17) mg/dL Creatinine 0.62 (0.52-1.04) mg/dL Glucose 210 H (74-99) mg/dL Calcium 9.3 (8.4-10.2) mg/dL Calcium panel 04/01/18 Range/Units 06:39 Calcium 9.3 (8.4-10.2) mg/dL Pituitary panel 04/01/18 Range/Units 06:39 Sodium 140 (137-145) mmol/L Potassium 4.4 (3.5-5.1) mmol/L Chloride 109 H (98-107) mmol/L Carbon Dioxide 24 (22-30) mmol/L BUN 14 (7-17) mg/dL Creatinine 0.62 (0.52-1.04) mg/dL Glucose 210 H (74-99) mg/dL Calcium 9.3 (8.4-10.2) mg/dL Adrenal panel 04/01/18 Range/Units 06:39 Sodium 140 (137-145) mmol/L Potassium 4.4 (3.5-5.1) mmol/L Chloride 109 H (98-107) mmol/L Carbon Dioxide 24 (22-30) mmol/L BUN 14 (7-17) mg/dL Creatinine 0.62 (0.52-1.04) mg/dL Glucose 210 H (74-99) mg/dL Calcium 9.3 (8.4-10.2) mg/dL - Imaging CT scan - abdomen: report reviewed, image reviewed CT scan - pelvis: report reviewed, image reviewed (Previous computed tomography scan was unremarkable for hematoma of the intestine. Small seroma of the umbilicus noted. Ovarian cyst noted.) Assessment and Plan (1) Abdominal pain Current Visit: Yes Status: Acute Code(s): R10.9 - UNSPECIFIED ABDOMINAL PAIN SNOMED Code(s): 99298240 (2) Exacerbation of multiple sclerosis Current Visit: Yes Status: Acute Code(s): G35 - MULTIPLE SCLEROSIS SNOMED Code(s): 372471579 (3) Multiple sclerosis Current Visit: Yes Status: Chronic Code(s): G35 - MULTIPLE SCLEROSIS SNOMED Code(s): 26630955 (4) Ovarian cyst Current Visit: No Status: Acute Code(s): N83.209 - UNSPECIFIED OVARIAN CYST , UNSPECIFIED SIDE SNOMED Code(s): 90301843 (5) Seroma Current Visit: No Status: Acute Code(s): DSL5070 - SNOMED Code(s): 299991592 (6) Morbid obesity due to excess calories Current Visit: Yes Status: Acute Code(s): E66.01 - MORBID (SEVERE) OBESITY DUE TO EXCESS CALORIES SNOMED Code(s): 701150011 (7) BMI 35.0-35.9,adult Current Visit: Yes Status: Acute Code(s): Z68.35 - BODY MASS INDEX (BMI) 35.0-35.9, ADULT SNOMED Code(s): 754081630 (8) S/P panniculectomy Current Visit: Yes Status: Acute Code(s): Z98.890 - OTHER SPECIFIED POSTPROCEDURAL STATES SNOMED Code(s): 575043636
[2018-04-01] MEDS ORDERED: IOPAMIDOL-300 CONTRAST 30 ML VIAL (ORAL USE) PO PRN (15:09)
--- NOTE | 2018-04-01 15:46 | P.CNNES ---
History of Present Illness Consult date: 04/01/18 Reason for Consult: Patient admitted for Multiple Sclerosis exacerbation. History of Present Illness: This patient is a 47-year-old right-handed white female who was admitted to [facility] on 03/31/2018 for acute MS exacerbation. Patient had been having symptoms of ongoing swelling of both her hands and feet as well as increased paresthesias involving her hands and feet as well. She was seen in the emergency room on 03/31/2018 and was advised admission for acute MS flare up. She is followed in the outpatient neurology clinic by Dr. No for treatment of her MS. She had started on a new treatment for MS in December of this year and had been given a infusion of Ocrevus. She states that recently she was told that the medication may be causing some of her edema in the hands and feet. She is to remain off of this medication as the infusion is done every 6 months. She states that recently she was having increasing weakness as well as numbness in her hands and feet. This is her typical MS presentation for acute MS exacerbation. She also recently was involved in a mild trauma back on 03/24/2018 when she was pushing a cart outside of the parking lot and then struck a cement pillar. This caused trauma to her abdominal area. She went into the emergency room and apparently was discharged following this trauma. She still experiences pain around the periumbilical area and surgery has been consulted today. She was also found on CAT scan during her last evaluation for the abdominal pain to have a seroma as well as a cyst on her ovary. She is to have this further evaluated. The patient has had frequent admissions for acute MS exacerbation this past year. This was her reason to switch to the new treatment with the IV infusion using Orevus. We have recommended that she should be placed on IV Solu-Medrol 250 mg IV piggyback every 6 hours for 3 days. Apparently her admission dosage was only every 8 hours. We have made the change today with the nursing staff on the fourth floor. We would recommend she at least have a total of 3 days of IV Solu -Medrol therapy for MS condition. The patient otherwise is being further evaluated for her abdominal symptoms. Neurology is consulted for further evaluation and management of her MS condition. Review of Systems Constitutional: Denies chills, Denies fever Eyes: denies blurred vision, denies pain Ears, nose, mouth and throat: Denies headache, Denies sore throat Cardiovascular: Denies chest pain, Denies shortness of breath Respiratory: Denies cough Gastrointestinal: Denies abdominal pain, Denies diarrhea, Denies nausea, Denies vomiting Genitourinary: Denies dysuria, Denies hematuria Musculoskeletal: Denies myalgias Integumentary: Denies pruritus, Denies rash Neurological: Reports paresthesias, Reports sensory deficit, Reports tingling, Denies numbness, Denies weakness Psychiatric: Denies anxiety, Denies depression Endocrine: Denies fatigue, Denies weight change Past Medical History Past Medical History: Asthma, Diabetes Mellitus, Hypertension, Musculoskeletal Disorder, Neurologic Disorder, Thyroid Disorder Additional Past Medical History / Comment(s): MS, back pain, DEGENERATIVE DISC DISEASE History of Any Multi-Drug Resistant Organisms: None Reported Past Surgical History: Bladder Surgery, Hernia Repair, Hysterectomy, Orthopedic Surgery, Tubal Ligation Additional Past Surgical History / Comment(s): rhinoplasty, bladder suspension, breast sx, morphine pump , RT KNEE SCOPE, TUMMY TUCK, SCS DEVICE INSERTED AND REMOVED-DOES NOT HAVE T-11 IN SPINE. Past Anesthesia/Blood Transfusion Reactions: Motion Sickness, Postoperative Nausea & Vomiting (PONV) Past Psychological History: No Psychological Hx Reported Additional Psychological History / Comment(s): Pt resides with her spouse and a 16 yr old mindy. She has a glucometer. She is independent. Smoking Status: Never smoker Past Alcohol Use History: None Reported Past Drug Use History: None Reported - Past Family History Father History Unknown: Yes Family Medical History: Hypertension Additional Family Medical History / Comment(s): Pt left home as a teen and does not know parents PMH Mother History Unknown: Yes Family Medical History: No Reported History, Unable to Obtain Additional Family Medical History / Comment(s): NO FAMILY HISTORY Medications and Allergies Home Medications Medication Instructions Recorded Confirmed Type Albuterol Sulfate [Proair Hfa] See Taper INHALATION RT-Q6H PRN 09/26/15 History Atorvastatin [Lipitor] 10 mg PO DAILY 09/26/15 03/31/18 History Diclofenac Sodium [Voltaren Gel] 4 gm TOPICAL DAILY PRN 09/26/15 03/31/18 History Levothyroxine Sodium [Synthroid] 100 mcg PO QAM 02/24/16 03/31/18 History Montelukast [Singulair] 10 mg PO DAILY #30 tab 06/23/16 03/31/18 Rx DULoxetine HCL [Cymbalta] 60 mg PO QAM 01/10/17 03/31/18 History Butalb/Acetaminophen/Caffeine 1 cap PO AC-TID PRN 01/16/17 03/31/18 History [Esgic 50-325-40 Capsule] Ipratropium-Albuterol Nebulize 3 ml INHALATION RT-QID PRN 01/16/17 03/31/18 History [Duoneb 0.5 mg-3 mg/3 ml Soln] INSULIN LISPRO (HumaLOG) [humaLOG] See Protocol SQ ACHS PRN 01/19/17 03/31/18 History Cholecalciferol [Vitamin D3] 1,000 unit PO MOWE 03/03/17 03/31/18 History Baclofen [Lioresal] 20 mg PO QID 04/26/17 03/31/18 History tiZANidine HCL [Zanaflex] 2 mg PO QID 06/15/17 03/31/18 History Scopolamine 1.5MG/72Hr Patch 1 patch TRANSDERM Q72H 07/07/17 03/31/18 History [TransDerm Scop] Omeprazole 40 mg PO DAILY #60 capsule. 07/12/17 03/31/18 Rx rOPINIRole HCL [Requip] 1 mg PO TID 10/30/17 03/31/18 History Lisinopril [Zestril] 20 mg PO DAILY #30 tab 12/19/17 03/31/18 Rx Metoprolol Tartrate [Lopressor] 25 mg PO BID 01/09/18 03/31/18 History metFORMIN HCL [Glucophage] 500 mg PO BID #60 tab 02/10/18 03/31/18 Rx Famotidine [Pepcid] 20 mg PO BID #20 tablet 02/11/18 03/31/18 Rx diphenhydrAMINE [Benadryl] 75 mg PO DAILY PRN 02/11/18 03/31/18 History hydrOXYzine HCL [Atarax] 1 - 2 tab PO QID #30 tab 02/11/18 03/31/18 Rx Allergies Allergy/AdvReac Type Severity Reaction Status Date / Time adhesive Allergy Severe Rash/Hives Verified 03/31/18 13:23 adhesive tape Allergy Severe Rash/Hives Verified 03/31/18 13:23 fentanyl Allergy Severe Rash/Hives Verified 03/31/18 13:23 latex Allergy Severe Rash/Hives Verified 03/31/18 13:23 Physical Examination - Vital Signs Vital Signs: Vital Signs Temp Pulse Resp BP BP Pulse Ox 04/01/18 06:00 98.9 F 72 20 147/83 92 L 03/31/18 22:00 97.8 F 77 20 110/70 94 L 03/31/18 15:08 97.8 F 74 16 164/86 99 Intake and Output 03/31/18 04/01/18 04/01/18 22:59 06:59 14:59 Intake Total 700 100 Balance 700 100 Intake: Oral 700 100 Other: Voiding Method Toilet Toilet Toilet # Voids 1 1 2 Weight 104.326 kg - Constitutional General appearance: average body habitus, cooperative - EENT EENT: PERRL, mucous membranes moist - Respiratory Respiratory: lungs clear, normal breath sounds - Cardiovascular Cardiovascular: regular rate, normal S1, normal S2 Extremities: no peripheral edema bilaterally - Gastrointestinal Gastrointestinal: normoactive bowel sounds - Integumentary Integumentary: normal - Neurologic Cranial nerve examination: PERRL, EOMI, VFF, V1/V2/V3 grossly intact, face symmetric, intact gag reflex, intact corneal reflex, normal palatal elevation Speech examination: intact Sensorimotor examination: intact Motor examination - right side: 4/5: biceps, triceps, wrist flexion, wrist extension, human resources executive, hip flexors, knee extensors, dorsiflexion, toe extension (EHL) , plantarflexion Motor examination - left side: 4/5: biceps, triceps, wrist flexion, wrist extension, human resources executive, hip flexors, knee extensors, dorsiflexion, toe extension (EHL) , plantarflexion Detailed sensory examination: intact Reflex and gait examination: intact Reflexes: 1+: ankle, bicep, knee, tricep - Musculoskeletal Musculoskeletal: no pain - Psychiatric Psychiatric: mood/affect appropriate, cooperative Results - Laboratory Findings CBC and BMP: 04/01/18 06:39 04/01/18 06:39 Abnormal Lab Findings: Abnormal Labs 03/31/18 03/31/18 03/31/18 12:40 16:56 20:39 WBC Neutrophils # Chloride 108 H Glucose 107 H POC Glucose (mg/dL) 127 H 262 H Total Protein 5.7 L Albumin 3.4 L 04/01/18 04/01/18 04/01/18 06:39 06:39 07:14 WBC 16.1 H Neutrophils # 14.6 H Chloride 109 H Glucose 210 H POC Glucose (mg/dL) 195 H Total Protein Albumin 04/01/18 11:49 WBC Neutrophils # Chloride Glucose POC Glucose (mg/dL) 228 H Total Protein Albumin Assessment and Plan (1) Exacerbation of multiple sclerosis Current Visit: Yes Status: Acute Code(s): G35 - MULTIPLE SCLEROSIS SNOMED Code(s): 369606932 (2) Abdominal pain Current Visit: Yes Status: Acute Code(s): R10.9 - UNSPECIFIED ABDOMINAL PAIN SNOMED Code(s): 93859677 (3) Ovarian cyst Current Visit: No Status: Acute Code(s): N83.209 - UNSPECIFIED OVARIAN CYST , UNSPECIFIED SIDE SNOMED Code(s): 57482286 (4) Seroma Current Visit: No Status: Acute Code(s): ZQO6680 - SNOMED Code(s): 460936369 Plan: This patient is a 47-year-old female who was admitted to hospital for acute MS exacerbation. She has a history of multiple sclerosis for many years and had recently and treated in December with Ocrevus infusion therapy for her MS. She is developing increase symptoms of swelling and apparently this medication is on hold for her. She recently developed increased symptoms of paresthesias and numbness in the hands and feet along with swelling. She was admitted to hospital yesterday for acute MS exacerbation. We are recommending that she be placed on IV Solu-Medrol 250 mg IV piggyback every 6 hours. She is to be treated for at least 3 days minimum to see how she responds. She is being evaluated by surgery for recent abdominal contusion. She sustained an injury while pushing a cart and had a cement pillar causing her to sustain a trauma to the abdomen. She is being evaluated by surgery with repeat CAT scan of the abdomen. We are recommend patient to have ongoing PT /OT evaluation for MS exacerbation. We will continue to follow her progress closely during this admission. Time with Patient: Greater than 30
[2018-04-01 17:00] LABS: Glucose,Whole Blood 162 mg/dL (75-99)
[2018-04-01] MEDS: TEMAZEPAM 15 MG CAP PO PRN (20:53)
[2018-04-01 21:01] LABS: Glucose,Whole Blood 227 mg/dL (75-99)
[2018-04-02] MEDS: methylPREDNISolone SOD SUCCI 250 MG in SODIUM CHLORIDE 0.9% 100 ML IVPB SCH ×4 (03:27→20:59)
[2018-04-02] MEDS: diphenhydrAMINE 50 MG/ML 1 ML VIAL IVP PRN ×4 (03:28→21:02)
[2018-04-02] MEDS: HYDROcodone/APAP 5-325MG 1 EACH TAB PO PRN ×4 (03:28→20:49)
[2018-04-02] MEDS: LEVOTHYROXINE 100 MCG TAB PO SCH (05:41)
[2018-04-02 07:31] LABS: Glucose,Whole Blood 169 mg/dL (75-99)
[2018-04-02 08:41] LABS: Basophils % (A) 0 %; Eosinophils % (A) 0 %; HCT 38.2 % (34.0-46.0); HGB 12.1 gm/dL (11.4-16.0); Lymphocytes # (A) 1.2 k/uL (1.0-4.8); Lymphocytes % (A) 6 %; MCH 28.8 pg (25.0-35.0); MCHC 31.7 g/dL (31.0-37.0); MCV 90.9 fL (80.0-100.0); Mean Platelet Volume 7.2; Monocytes # (A) 0.4 k/uL (0-1.0); Monocytes % (A) 2 %; Neutrophils # (A) 19.8 k/uL (1.3-7.7); Neutrophils % (A) 92 %; Platelet Count 377 k/uL (150-450); RBC 4.21 m/uL (3.80-5.40); RDW 13.3 % (11.5-15.5); WBC 21.5 k/uL (3.8-10.6)
[2018-04-02] MEDS: IOPAMIDOL-300 CONTRAST 30 ML VIAL (ORAL USE) PO PRN ×2 (08:50→09:59)
[2018-04-02] MEDS: LISINOPRIL 20 MG TAB PO SCH (08:51)
[2018-04-02] MEDS: DULoxetine HCL 60 MG CAPSULE.DR PO SCH (08:51)
[2018-04-02] MEDS: FAMOTIDINE 20 MG TAB PO SCH ×2 (08:51→20:48)
[2018-04-02] MEDS: BACLOFEN 10 MG TAB PO SCH ×4 (08:52→20:49)
[2018-04-02] MEDS: PANTOPRAZOLE 40 MG TABLET PO SCH (08:52)
[2018-04-02] MEDS: ATORVASTATIN 10 MG TAB PO SCH (08:52)
[2018-04-02] MEDS: MONTELUKAST 10 MG TAB PO SCH (08:53)
[2018-04-02] MEDS: METOPROLOL TARTRATE 25 MG TAB PO SCH ×2 (08:53→20:48)
[2018-04-02] MEDS: INSULIN ASPART 100 UNIT/ML 1 ML 10 ML VIAL SQ SCH ×4 (08:53→20:58)
[2018-04-02 09:02] LABS: Anion Gap 8 mmol/L; Blood Urea Nitrogen 21 mg/dL (7-17); Calcium 9.2 mg/dL (8.4-10.2); Carbon Dioxide 26 mmol/L (22-30); Chloride 108 mmol/L (98-107); Glucose 189 mg/dL (74-99); Magnesium 2.1 mg/dL (1.6-2.3); Potassium 4.8 mmol/L (3.5-5.1); Sodium 142 mmol/L (137-145)
--- NOTE | 2018-04-02 11:21 | CT ---
EXAMINATION TYPE: CT abdomen pelvis w con DATE OF EXAM: 04/02/2018 COMPARISON: 03/24/2018 INDICATION: Follow up scan for seroma. DLP: 2289.8 mGycm, Automated exposure control for dose reduction was used. CONTRAST: 100 mL of Isovue M300. Study performed with Oral Contrast TECHNIQUE: Axial images were obtained from above the diaphragm to the pubic rami in the axial plane a t 5 mm thick sections. Reconstructed images are reviewed on the computer in the coronal plane. FINDINGS: Limited CT sections are obtained the lung bases. The lung bases are clear. Bilateral breast prosthe ses are present. CT ABDOMEN: Liver: Normal Spleen: Normal Pancreas: Atrophic Adrenal glands: The adrenal glands are normal. Gallbladder: Normal Kidneys: No masses are evident. No hydronephrosis is present. No cysts are present. Delayed images were obtained through the kidneys, which remain unremarkable. Aorta: Normal Inferior vena cava: Normal. CT PELVIS: r there is a 2.2 cm rounded density in the subcutaneous tissues periumbilical region. This is smaller than comparison. Increased markings are through the subcutaneous tissues of the anterior mid abdomen. Loops of bowel within the abdomen and pelvis are normal. There are loops of bowel which are incom pletely distended or lack oral contrast limiting their evaluation. Appendix: Normal as visualized. Urinary bladder: Normal. Genitourinary structures: Uterus is not identified. The right ovarian cyst has diminished markedly ov er the interval. Free fluid is not evident within the pelvis. Osseous structures: No suspicious lytic or sclerotic lesions. IMPRESSIONS: 1. Increased markings to the subtalar tissue can be compatible some ecchymosis. A small rounded dens ity in the subcutaneous tissue may be a diminished size small hematoma or seroma.
[2018-04-02] MEDS ORDERED: CHOLECALCIFEROL 1,000 UNIT TAB PO SCH (12:00)
[2018-04-02 12:19] LABS: Glucose,Whole Blood 217 mg/dL (75-99)
[2018-04-02 13:09] LABS: Hemoglobin A1C 6.5 % (4.0-6.0)
[2018-04-02] MEDS ORDERED: diphenhydrAMINE 25 MG CAP PO PRN (14:42)
--- NOTE | 2018-04-02 14:47 | P.PN ---
Subjective This is a 47-year-old white female with multiple medical issues who came emergency room with complaints of tingling or numbness to hands or feet in complaining of a flareup of multiple sclerosis. She currently sees Dr. No outpatient for MS treatment. There was not significant impairment noted time other than the subjective symptoms, per the emergency room physician. Patient also complained of significant abdominal pain with my visit to her today. She reports running into a concrete barrier with a shopping cart 1 week ago, made her abdominal pain worse. She indicates that since then she's had some bright red blood per rectum. She is noted to have a history of hemorrhoids as well. She sees Dr. Killian for GI problems and his multiple surgeries in the past for abdomen, including a hernia repair 11 months ago. Currently she denies any chest pains, pressures, shortness of breath. This to play significant swelling and relates that to a recent MS treatment about 6 months ago. Due to a miscommunication with my office, the patient was seen by Dr. Aguirre, the hospitalist, initially, I am taking over her care at this time. 04/02/2018 Patient seen by Neurology who increased steroids. She was alos seen by Gerneal Surgery and a CT abdomen was ordered. She reports no more blood in stool, but indates abdominal pain is now upper abdomen. She denoes any CP, Pressures, SOB, Nausea or vomiting. She reports minimal improvent in Subjective numbness to extremities. Objective - Vital Signs Vital signs: Vital Signs Temp 98.7 F 04/02/18 06:42 Pulse 58 L 04/02/18 06:42 Resp 18 04/02/18 06:42 BP 116/72 04/02/18 06:42 Pulse Ox 92 L 04/02/18 06:42 Intake & Output 04/01/18 04/02/18 04/02/18 18:59 06:59 18:59 Intake Total 200 Balance 200 Weight 104.326 kg Intake: Oral 200 Other: Voiding Method Toilet Toilet Toilet # Voids 3 2 # Bowel Movements 2 - Exam GENERAL: Morbidly obese female in no acute distress. She has noted generalized edema, mild in quality NECK: Normal range of motion, supple without lymphadenopathy or JVD, no thyromegaly LUNGS: Breath sounds clear to auscultation bilaterally and equal. No wheezes rales or rhonchi. HEART: Regular rate and rhythm without murmurs, rubs or gallops.S1S2 Normal ABDOMEN: Soft,, normoactive bowel sounds. No guarding, no rebound. No masses appreciated.now has upper abdominal tenderness, , no rebound, minimal lower quadrant paon EXTREMITIES: Normal range of motion, minimal pitting +1 edema to the lower extremities. No clubbing or cyanosis. NEUROLOGICAL: Cranial nerves II through XII grossly intact. Normal speech, normal gait. There is weakness to the left hand grasp. Strength with standing is normal on each leg independently. She ambulates without assistance. PSYCH: Depressed mood, normal affect. SKIN: Warm, Dry, normal turgor, no rashes or lesions noted. - Labs CBC & Chem 7: 04/02/18 08:02 04/02/18 08:02 Labs: Abnormal Lab Results - Last 24 Hours (Table) 04/01/18 04/01/18 04/01/18 Range/Units 06:39 16:58 20:41 WBC (3.8-10.6) k/uL Neutrophils # (1.3-7.7) k/uL Chloride (98-107) mmol/L BUN (7-17) mg/dL Glucose (74-99) mg/dL POC Glucose (mg/dL) 162 H 227 H (75-99) mg/dL Hemoglobin A1c 6.5 H (4.0-6.0) % 04/02/18 04/02/18 04/02/18 Range/Units 07:24 08:02 08:02 WBC 21.5 H (3.8-10.6) k/uL Neutrophils # 19.8 H (1.3-7.7) k/uL Chloride 108 H (98-107) mmol/L BUN 21 H (7-17) mg/dL Glucose 189 H (74-99) mg/dL POC Glucose (mg/dL) 169 H (75-99) mg/dL Hemoglobin A1c (4.0-6.0) % 04/02/18 Range/Units 12:11 WBC (3.8-10.6) k/uL Neutrophils # (1.3-7.7) k/uL Chloride (98-107) mmol/L BUN (7-17) mg/dL Glucose (74-99) mg/dL POC Glucose (mg/dL) 217 H (75-99) mg/dL Hemoglobin A1c (4.0-6.0) % Assessment and Plan (1) Exacerbation of multiple sclerosis Current Visit: Yes Status: Acute Code(s): G35 - MULTIPLE SCLEROSIS SNOMED Code(s): 936544246 (2) Abdominal pain Current Visit: Yes Status: Acute Code(s): R10.9 - UNSPECIFIED ABDOMINAL PAIN SNOMED Code(s): 13250994 (3) Multiple sclerosis Current Visit: Yes Status: Chronic Code(s): G35 - MULTIPLE SCLEROSIS SNOMED Code(s): 14730273 (4) Headache Current Visit: Yes Status: Acute Code(s): R51 - HEADACHE SNOMED Code(s): 61540656 (5) Paresthesias Current Visit: Yes Status: Acute Code(s): R20.2 - PARESTHESIA OF SKIN SNOMED Code(s): 33634379 (6) Diabetes Narrative/Plan: HbA1c was 6.3 on 02/06/2018 Current Visit: Yes Status: Acute Code(s): E11.9 - TYPE 2 DIABETES MELLITUS WITHOUT COMPLICATIONS SNOMED Code(s): 43363533 (7) Somatization disorder Current Visit: Yes Status: Acute Code(s): F45.0 - SOMATIZATION DISORDER SNOMED Code(s): 766611854 Plan: lrepeat CT does not show any significant abnormalities at this time. Will wait on further recommendations from consultants We'll repeat labs in a.m. She'll be reevaluate next 24 hours.She will remain on IV steroids pre Neurology
--- NOTE | 2018-04-02 15:46 | P.PN ---
Subjective Progress Note Date: 04/02/18 CHIEF COMPLAINT: Abdominal pain HISTORY OF PRESENT ILLNESS: The patient is a 47-year-old female who over 1 week ago on 03/24/2018 presented to the ER following a trauma to the abdomen. She also has multiple sclerosis flare up. She has chronic pain. As a result of the chronicity of her abdominal pain, a repeat computed tomography scan was obtained. No reports of blood in her stools since admission. She is tolerating diet. She still reports primarily periumbilical pain. PHYSICAL EXAM: VITAL SIGNS: Reviewed GENERAL: Well-developed pleasant in no acute distress. HEENT: No scleral icterus. Extraocular movements grossly intact. Moist buccal mucosa. NECK: Supple without lymphadenopathy. CHEST: Unlabored respirations. Equal bilateral excursions. CARDIOVASCULAR: Regular rate regular rhythm rhythm. Distal 2+ pulses. ABDOMEN: No peritonitis. Absent umbilicus from previous panniculectomy MUSCULOSKELETAL: No clubbing, cyanosis, or edema. NEURO: Cranial nerves II to XII within normal limits. No focal or lateralizing signs. PSYCH: Alert and oriented to person, place and time. SKIN: Well-perfused good skin turgor. ASSESSMENT: 1. Abdominal pain 2. History of hematochezia, resolved 3. History of ovarian cyst 4. Multiple sclerosis 5. History of chronic pain with multiple sclerosis PLAN: 1. Her repeat computed tomography scan demonstrates as to be expected inflammation of the abdominal wall consistent with her history of trauma. 2. CT scan show no significant intra-abdominal pathology such as duodenal hematoma or colitis for history of hematochezia which is now resolved. 3. Leukocytosis likely secondary to steroid exposure. Otherwise no acute abdomen. 4. No surgical intervention at this time. 5. For history of abdominal wall bruise, may benefit from anti-inflammatory such as NSAIDs and cool compress 6. Recommend PPIs for current steroid treatment that puts her at risk for gastritis as well as epigastric abdominal pain 6. We'll follow as needed Objective - Vital Signs Vital signs: Vital Signs Temp 98.0 F 04/02/18 15:00 Pulse 60 04/02/18 15:19 Resp 20 04/02/18 15:19 BP 153/84 04/02/18 15:00 Pulse Ox 94 L 04/02/18 15:00 Intake & Output 12/30/18 12/31/18 12/31/18 18:59 06:59 18:59 Intake Total 200 Balance 200 Weight 104.326 kg 104.326 kg Intake: Oral 200 Other: Voiding Method Toilet Toilet Toilet # Voids 3 2 3 # Bowel Movements 2 2 - Labs CBC & Chem 7: 04/02/18 08:02 04/02/18 08:02 Labs: Abnormal Lab Results - Last 24 Hours (Table) 04/01/18 04/01/18 04/01/18 Range/Units 06:39 16:58 20:41 WBC (3.8-10.6) k/uL Neutrophils # (1.3-7.7) k/uL Chloride (98-107) mmol/L BUN (7-17) mg/dL Glucose (74-99) mg/dL POC Glucose (mg/dL) 162 H 227 H (75-99) mg/dL Hemoglobin A1c 6.5 H (4.0-6.0) % 04/02/18 04/02/18 04/02/18 Range/Units 07:24 08:02 08:02 WBC 21.5 H (3.8-10.6) k/uL Neutrophils # 19.8 H (1.3-7.7) k/uL Chloride 108 H (98-107) mmol/L BUN 21 H (7-17) mg/dL Glucose 189 H (74-99) mg/dL POC Glucose (mg/dL) 169 H (75-99) mg/dL Hemoglobin A1c (4.0-6.0) % 04/02/18 Range/Units 12:11 WBC (3.8-10.6) k/uL Neutrophils # (1.3-7.7) k/uL Chloride (98-107) mmol/L BUN (7-17) mg/dL Glucose (74-99) mg/dL POC Glucose (mg/dL) 217 H (75-99) mg/dL Hemoglobin A1c (4.0-6.0) % - Imaging and Cardiology CT scan - abdomen: report reviewed (No acute abdominal pathology such as colitis or duodenal hematoma noted. Inflammation of abdominal wall consistent with history of trauma), image reviewed CT scan - pelvis: report reviewed, image reviewed Assessment and Plan (1) Abdominal pain Current Visit: Yes Status: Acute Code(s): R10.9 - UNSPECIFIED ABDOMINAL PAIN SNOMED Code(s): 97049938 (2) Exacerbation of multiple sclerosis Current Visit: Yes Status: Acute Code(s): G35 - MULTIPLE SCLEROSIS SNOMED Code(s): 112444212 (3) Multiple sclerosis Current Visit: Yes Status: Chronic Code(s): G35 - MULTIPLE SCLEROSIS SNOMED Code(s): 54179897 (4) Ovarian cyst Current Visit: No Status: Acute Code(s): N83.209 - UNSPECIFIED OVARIAN CYST , UNSPECIFIED SIDE SNOMED Code(s): 26593886 (5) Seroma Current Visit: No Status: Acute Code(s): DXU4522 - SNOMED Code(s): 929183314 (6) Morbid obesity due to excess calories Current Visit: Yes Status: Acute Code(s): E66.01 - MORBID (SEVERE) OBESITY DUE TO EXCESS CALORIES SNOMED Code(s): 723900116 (7) BMI 35.0-35.9,adult Current Visit: Yes Status: Acute Code(s): Z68.35 - BODY MASS INDEX (BMI) 35.0-35.9, ADULT SNOMED Code(s): 491387136 (8) S/P panniculectomy Current Visit: Yes Status: Acute Code(s): Z98.890 - OTHER SPECIFIED POSTPROCEDURAL STATES SNOMED Code(s): 691024623
[2018-04-02 17:19] LABS: Glucose,Whole Blood 190 mg/dL (75-99)
--- NOTE | 2018-04-02 20:24 | P.PN ---
Subjective Progress Note Date: 04/02/18 This patient is seen in Neurology follow-up today for MS exacerbation. Patient has been started on IV Solu-Medrol therapy for acute MS exacerbation. She also sustained a recent trauma to her abdominal area and was evaluated by Dr. Merchant. Apparently a repeat computed tomography scan of the abdomen was reviewed and does not indicate any immediate surgical intervention. Patient has noted improvement on the IV Solu-Medrol for treatment of her acute MS exacerbation. She will complete 3 days tomorrow and hopefully should be ready for discharge home tomorrow on tapering doses of oral prednisone. She may follow-up with her regular neurologist once she is discharged for further management of her MS condition. She has been cleared by her surgeon as well after review of her CAT scan results today. We will continue to follow the patient closely during this admission. Her overall prognosis remains guarded. Objective - Vital Signs Vital signs: Vital Signs Temp 98.0 F 04/02/18 15:00 Pulse 60 04/02/18 15:19 Resp 20 04/02/18 15:19 BP 153/84 04/02/18 15:00 Pulse Ox 94 L 04/02/18 15:00 Intake & Output 04/01/18 04/02/18 04/02/18 18:59 06:59 18:59 Intake Total 200 Balance 200 Weight 104.326 kg 104.326 kg Intake: Oral 200 Other: Voiding Method Toilet Toilet Toilet # Voids 3 2 3 # Bowel Movements 2 2 - Exam Physical Examination: PHYSICAL EXAMINATION: Patient is resting comfortably in bed. VITAL SIGNS: Blood pressure is [153/84]. Heart rate is [60]. Respiration is [20] . Temperature is [98.0]. HEENT: Head is atraumatic, neck is supple, there were no carotid bruits. CHEST: Lungs are clear to auscultation and percussion. CARDIAC: S1, S2 normal rate and rhythm. There is no murmur. ABDOMEN: Soft and nontender. Bowel sounds are present. EXTREMITIES: There is no pedal edema. Peripheral pulses are present. Neurological examination: Patient's neurological examination is nonfocal today. She has some mild generalized weakness but is improving with steroid therapy. - Labs CBC & Chem 7: 04/02/18 08:02 04/02/18 08:02 Labs: Abnormal Lab Results - Last 24 Hours (Table) 04/01/18 04/01/18 04/02/18 Range/Units 06:39 20:41 07:24 WBC (3.8-10.6) k/uL Neutrophils # (1.3-7.7) k/uL Chloride (98-107) mmol/L BUN (7-17) mg/dL Glucose (74-99) mg/dL POC Glucose (mg/dL) 227 H 169 H (75-99) mg/dL Hemoglobin A1c 6.5 H (4.0-6.0) % 04/02/18 04/02/18 04/02/18 Range/Units 08:02 08:02 12:11 WBC 21.5 H (3.8-10.6) k/uL Neutrophils # 19.8 H (1.3-7.7) k/uL Chloride 108 H (98-107) mmol/L BUN 21 H (7-17) mg/dL Glucose 189 H (74-99) mg/dL POC Glucose (mg/dL) 217 H (75-99) mg/dL Hemoglobin A1c (4.0-6.0) % 04/02/18 Range/Units 17:17 WBC (3.8-10.6) k/uL Neutrophils # (1.3-7.7) k/uL Chloride (98-107) mmol/L BUN (7-17) mg/dL Glucose (74-99) mg/dL POC Glucose (mg/dL) 190 H (75-99) mg/dL Hemoglobin A1c (4.0-6.0) % Assessment and Plan (1) Exacerbation of multiple sclerosis Current Visit: Yes Status: Acute Code(s): G35 - MULTIPLE SCLEROSIS SNOMED Code(s): 042403100 (2) Abdominal pain Current Visit: Yes Status: Acute Code(s): R10.9 - UNSPECIFIED ABDOMINAL PAIN SNOMED Code(s): 84033933 (3) Ovarian cyst Current Visit: No Status: Acute Code(s): N83.209 - UNSPECIFIED OVARIAN CYST , UNSPECIFIED SIDE SNOMED Code(s): 06868632 (4) Seroma Current Visit: No Status: Acute Code(s): AHI8907 - SNOMED Code(s): 163333067 Plan: This patient is a 47-year-old female who is admitted to Hospital for evaluation and treatment of acute MS exacerbation. She is on IV Solu-Medrol therapy and is responding well. She has noted improvement today in her overall MS condition. She recently sustained abdominal injury and has been evaluated and cleared by the surgeon for discharge. Patient will be completing 3 days of IV steroid therapy tomorrow and may be considered for discharge home. She may follow-up with her regular neurologist for further management of her MS condition soon after discharge. Patient should be placed on tapering doses of oral prednisone at the time of her discharge. Overall prognosis at this time remains fair. Case was discussed at length with the patient and her at bedside today. All of their questions were answered. We will continue to follow her closely during this admission.
[2018-04-02 20:47] LABS: Glucose,Whole Blood 274 mg/dL (75-99)
[2018-04-02] MEDS: TEMAZEPAM 15 MG CAP PO PRN (20:48)
[2018-04-03 00:41] VITALS: PULSE 55
[2018-04-03] MEDS: diphenhydrAMINE 50 MG/ML 1 ML VIAL IVP PRN (03:07)
[2018-04-03] MEDS: HYDROcodone/APAP 5-325MG 1 EACH TAB PO PRN ×2 (03:08→09:10)
[2018-04-03] MEDS: methylPREDNISolone SOD SUCCI 250 MG in SODIUM CHLORIDE 0.9% 100 ML IVPB SCH (04:52)
[2018-04-03] MEDS: LEVOTHYROXINE 100 MCG TAB PO SCH (04:56)
[2018-04-03 07:51] LABS: Glucose,Whole Blood 190 mg/dL (75-99)
[2018-04-03] MEDS: METOPROLOL TARTRATE 25 MG TAB PO SCH (08:13)
[2018-04-03] MEDS: PANTOPRAZOLE 40 MG TABLET PO SCH (08:13)
[2018-04-03] MEDS: LOPERAMIDE 2 MG CAP PO PRN (08:13)
[2018-04-03] MEDS: FAMOTIDINE 20 MG TAB PO SCH (08:14)
[2018-04-03] MEDS: BACLOFEN 10 MG TAB PO SCH ×2 (08:14→12:15)
[2018-04-03] MEDS: ATORVASTATIN 10 MG TAB PO SCH (08:14)
[2018-04-03] MEDS: MONTELUKAST 10 MG TAB PO SCH (08:14)
[2018-04-03] MEDS: INSULIN ASPART 100 UNIT/ML 1 ML 10 ML VIAL SQ SCH (08:14)
[2018-04-03] MEDS: LISINOPRIL 20 MG TAB PO SCH (08:14)
[2018-04-03] MEDS: DULoxetine HCL 60 MG CAPSULE.DR PO SCH (08:14)
[2018-04-03 08:54] VITALS: BP 149/89; RESP 16; TEMP 98.3
[2018-04-03 10:12] LABS: Basophils % (A) 0 %; Eosinophils # (A) 0.1 k/uL (0-0.7); Eosinophils % (A) 0 %; HCT 37.5 % (34.0-46.0); Lymphocytes # (A) 0.7 k/uL (1.0-4.8); Lymphocytes % (A) 5 %; MCH 29.4 pg (25.0-35.0); MCV 91.8 fL (80.0-100.0); Mean Platelet Volume 7.4; Monocytes # (A) 0.3 k/uL (0-1.0); Monocytes % (A) 2 %; Neutrophils # (A) 14.6 k/uL (1.3-7.7); Neutrophils % (A) 93 %; Platelet Count 352 k/uL (150-450); RBC 4.08 m/uL (3.80-5.40); RDW 13.4 % (11.5-15.5); WBC 15.8 k/uL (3.8-10.6)
[2018-04-03 10:20] LABS: Anion Gap 9 mmol/L; Blood Urea Nitrogen 20 mg/dL (7-17); Calcium 9.1 mg/dL (8.4-10.2); Carbon Dioxide 25 mmol/L (22-30); Chloride 107 mmol/L (98-107); Glucose 225 mg/dL (74-99); Potassium 4.4 mmol/L (3.5-5.1); Sodium 141 mmol/L (137-145)
[2018-04-03] MEDS ORDERED: diphenhydrAMINE 50 MG/ML 1 ML VIAL IM PRN (11:55)
[2018-04-03] MEDS ORDERED: methylPREDNISolone SOD SUCCI 125 MG/2 ML VIAL IM ONE (11:55)
--- NOTE | 2018-04-03 12:04 | P.DS ---
Providers Date of admission: 03/31/18 14:25 Expected date of discharge: 04/03/18 Attending physician: Robbie Recio Consults: 04/01/18 12:07 Consult Physician Routine Consulting Provider: Carlos Winters Consult Reason/Comments: ms Do you want consulting provider notified?: Yes 04/01/18 12:09 Consult Physician Routine Consulting Provider: Skyler Denney Consult Reason/Comments: abdominal pain, rectal bleeding Do you want consulting provider notified?: Yes Primary care physician: Robbie Recio - Discharge Diagnosis(es) (1) Exacerbation of multiple sclerosis Current Visit: Yes Status: Acute (2) Abdominal pain Current Visit: Yes Status: Acute (3) Multiple sclerosis Current Visit: Yes Status: Chronic (4) Headache Current Visit: Yes Status: Acute (5) Paresthesias Current Visit: Yes Status: Acute (6) Diabetes Current Visit: Yes Status: Acute (7) Somatization disorder Current Visit: Yes Status: Acute Hospital Course: This is a 47-year-old white female with multiple medical issues who came emergency room with complaints of tingling or numbness to hands or feet in complaining of a flareup of multiple sclerosis. She currently sees Dr. No outpatient for MS treatment. There was not significant impairment noted time other than the subjective symptoms, per the emergency room physician. Patient also complained of significant abdominal pain with my visit to her today. She reports running into a concrete barrier with a shopping cart 1 week ago, made her abdominal pain worse. She indicates that since then she's had some bright red blood per rectum. She is noted to have a history of hemorrhoids as well. She sees Dr. Killian for GI problems and his multiple surgeries in the past for abdomen, including a hernia repair 11 months ago. Currently she denies any chest pains, pressures, shortness of breath. This to play significant swelling and relates that to a recent MS treatment about 6 months ago. Due to a miscommunication with my office, the patient was seen by Dr. Aguirre, the hospitalist, initially, I am taking over her care at this time. 04/02/2018 Patient seen by Neurology who increased steroids. She was alos seen by Gerneal Surgery and a CT abdomen was ordered. She reports no more blood in stool, but indates abdominal pain is now upper abdomen. She denoes any CP, Pressures, SOB, Nausea or vomiting. She reports minimal improvent in Subjective numbness to extremities. 04/03/2018 Patient was seen and examined rounds today. She's been cleared by neurology to go home. Her IV did go subcutaneous, and she required her last dose of Solu- Medrol IM. General surgery and cleared her and indicated no surgery was needed as her hematochezia resolved. She continues to have some mild midepigastric and lower quadrant pain. Medicate midepigastric pain from trauma due to her shopping cart, and the lower quadrant pain from her ovarian cyst. We discussed the her seeing gynecology for Ovarian cyst pain should it change or worsen. We' ll plan outpatient ultrasound of this in the next several weeks reevaluate this. Patient Condition at Discharge: Fair Plan - Discharge Summary New Discharge Prescriptions: Continue Atorvastatin [Lipitor] 10 mg PO DAILY Albuterol Sulfate [Proair Hfa] See Taper INHALATION RT-Q6H PRN PRN Reason: Shortness Of Breath Diclofenac Sodium [Voltaren Gel] 4 gm TOPICAL DAILY PRN PRN Reason: Pain Levothyroxine Sodium [Synthroid] 100 mcg PO QAM Montelukast [Singulair] 10 mg PO DAILY #30 tab DULoxetine HCL [Cymbalta] 60 mg PO QAM Ipratropium-Albuterol Nebulize [Duoneb 0.5 mg-3 mg/3 ml Soln] 3 ml INHALATION RT-QID PRN PRN Reason: Shortness Of Breath Butalb/Acetaminophen/Caffeine [Esgic 50-325-40 Capsule] 1 cap PO AC-TID PRN PRN Reason: Headache INSULIN LISPRO (HumaLOG) [humaLOG] See Protocol SQ ACHS PRN PRN Reason: Blood Sugar - High Cholecalciferol [Vitamin D3] 1,000 unit PO MOWE Baclofen [Lioresal] 20 mg PO QID tiZANidine HCL [Zanaflex] 2 mg PO QID Scopolamine 1.5MG/72Hr Patch [TransDerm Scop] 1 patch TRANSDERM Q72H Omeprazole 40 mg PO DAILY #60 capsule. rOPINIRole HCL [Requip] 1 mg PO TID Lisinopril [Zestril] 20 mg PO DAILY #30 tab Metoprolol Tartrate [Lopressor] 25 mg PO BID metFORMIN HCL [Glucophage] 500 mg PO BID #60 tab diphenhydrAMINE [Benadryl] 75 mg PO DAILY PRN PRN Reason: Rash Famotidine [Pepcid] 20 mg PO BID #20 tablet hydrOXYzine HCL [Atarax] 1 - 2 tab PO QID #30 tab Discharge Medication List Albuterol Sulfate [Proair Hfa] See Taper INHALATION RT-Q6H PRN 09/26/15 [History ] Atorvastatin [Lipitor] 10 mg PO DAILY 09/26/15 [History] Diclofenac Sodium [Voltaren Gel] 4 gm TOPICAL DAILY PRN 09/26/15 [History] Levothyroxine Sodium [Synthroid] 100 mcg PO QAM 02/24/16 [History] Montelukast [Singulair] 10 mg PO DAILY #30 tab 06/23/16 [Rx] DULoxetine HCL [Cymbalta] 60 mg PO QAM 01/10/17 [History] Butalb/Acetaminophen/Caffeine [Esgic 50-325-40 Capsule] 1 cap PO AC-TID PRN [History] Ipratropium-Albuterol Nebulize [Duoneb 0.5 mg-3 mg/3 ml Soln] 3 ml INHALATION RT -QID PRN 01/16/17 [History] INSULIN LISPRO (HumaLOG) [humaLOG] See Protocol SQ ACHS PRN 01/19/17 [History] Cholecalciferol [Vitamin D3] 1,000 unit PO MOWE 03/03/17 [History] Baclofen [Lioresal] 20 mg PO QID 04/26/17 [History] tiZANidine HCL [Zanaflex] 2 mg PO QID 06/15/17 [History] Scopolamine 1.5MG/72Hr Patch [TransDerm Scop] 1 patch TRANSDERM Q72H 07/07/17 [ History] Omeprazole 40 mg PO DAILY #60 capsule. 07/12/17 [Rx] rOPINIRole HCL [Requip] 1 mg PO TID 10/30/17 [History] Lisinopril [Zestril] 20 mg PO DAILY #30 tab 12/19/17 [Rx] Metoprolol Tartrate [Lopressor] 25 mg PO BID 01/09/18 [History] metFORMIN HCL [Glucophage] 500 mg PO BID #60 tab 02/10/18 [Rx] Famotidine [Pepcid] 20 mg PO BID #20 tablet 02/11/18 [Rx] diphenhydrAMINE [Benadryl] 75 mg PO DAILY PRN 02/11/18 [History] hydrOXYzine HCL [Atarax] 1 - 2 tab PO QID #30 tab 02/11/18 [Rx] Follow up Appointment(s)/Referral(s): Robbie Recio MD [Primary Care Provider] - 1 Week Maura No MD [REFERRING] - 3 Days Amrik Licea MD [Medical Doctor] - 1 Week Discharge Disposition: HOME SELF-CARE
[2018-04-03 12:17] LABS: Glucose,Whole Blood 219 mg/dL (75-99)
== END 2018-04-03 12:38 | disposition home or self-care (01) ==
LOC: EC 11:35 → 4MS4W 14:25
PROVIDERS: ADMIT Family Medicine; ATTEND Family Medicine
DX: G35 Multiple sclerosis (principal); E66.01 Morbid (severe) obesity due to excess calories; Z68.35 Body mass index [BMI] 35.0-35.9, adult; F45.0 Somatization disorder; N83.209 Unspecified ovarian cyst, unspecified side; M19.90 Unspecified osteoarthritis, unspecified site; E03.9 Hypothyroidism, unspecified; I10 Essential (primary) hypertension; E11.9 Type 2 diabetes mellitus without complications; R10.33 Periumbilical pain; Z90.49 Acquired absence of other specified parts of digestive tract; Z98.890 Other specified postprocedural states; J45.909 Unspecified asthma, uncomplicated; Z79.4 Long term (current) use of insulin; Z79.899 Other long term (current) drug therapy; Z82.49 Family history of ischemic heart disease and other diseases of the circulatory system; Z91.040 Latex allergy status; Z88.5 Allergy status to narcotic agent; Z91.048 Other nonmedicinal substance allergy status; Z90.710 Acquired absence of both cervix and uterus; Z98.51 Tubal ligation status
CPT/HCPCS: 96376 ×4; 96365; 96366 ×3; 96375 ×2; 99285; 36415; 97162; 97166; 83880; 80053; 80048 ×3; 82550; 82553; 83735; 84484; 85025 ×4; 85610; 85730; 82272; 87324; 83036; 71046; 74177; G0378 ×4; J1200 ×4; J1644 ×2; J1100; J2930 ×4; J2405; J1885 ×2; J1170; Q9967

== ENCOUNTER → 2018-07-03 | Outpatient (CLI) | payer BC, MEDICARE | END | disposition home or self-care (01) | LOC: LABWHC1 17:20 | PROVIDERS: ATTEND Internal Medicine | DX: D72.829 Elevated white blood cell count, unspecified (principal) | CPT/HCPCS: 36415; 87040 ==

== ENCOUNTER 2018-11-19 23:18 | Emergency (ER) | payer BC, MEDICARE ==
[2018-11-19 23:25] VITALS: RESP 18
[2018-11-20] MEDS ORDERED: diphenhydrAMINE 2% CREAM 28.4 GM TUBE TOPICAL STA (00:22)
[2018-11-20] MEDS ORDERED: methylPREDNISolone SOD SUCCI 125 MG/2 ML VIAL IM ONE (00:22)
[2018-11-20] MEDS ORDERED: diphenhydrAMINE 50 MG/ML 1 ML VIAL IM STA (00:22)
[2018-11-20] MEDS ORDERED: FAMOTIDINE 20 MG TAB PO STA (00:25)
--- NOTE | 2018-11-20 00:25 | ED ---
Skin/Abscess/FB HPI - General Chief complaint: Skin/Abscess/Foreign Body Stated complaint: Rash Time Seen by Provider: 11/20/18 00:03 Source: patient Mode of arrival: ambulatory Limitations: no limitations - History of Present Illness Initial comments: 48 year-old female patient presents to the emergency department today for evaluation of rash. Patient states that she's had the rash since last Monday. States that it started on her arms and develops over her body wherever she scratches. Patient states that she has been taking Eliana without much relief of symptoms. Patient states rash [place]. She denies any known new exposures. States that she does have history of MS and autoimmune disorder. She states she has been applying hydrocortisone/lidocaine cream without much relief. She denies lip, tongue, or throat swelling. States the itching was getting out of control tonight so she presented for further evaluation. Patient denies any recent fever, chills, shortness breath, chest pain, abdominal pain, nausea, vomiting, diarrhea, constipation, back pain, numbness, tingling, dizziness, weakness, hematuria, dysuria, urinary urgency, urinary frequency, headache, visual changes, or any other complaints. - Related Data Home Medications Medication Instructions Recorded Confirmed Albuterol Sulfate [Proair Hfa] See Taper INHALATION RT-Q6H PRN 09/26/15 03/31/18 Atorvastatin [Lipitor] 10 mg PO DAILY 09/26/15 03/31/18 Diclofenac Sodium [Voltaren Gel] 4 gm TOPICAL DAILY PRN 09/26/15 03/31/18 Levothyroxine Sodium [Synthroid] 100 mcg PO QAM 02/24/16 03/31/18 DULoxetine HCL [Cymbalta] 60 mg PO QAM 01/10/17 03/31/18 Butalb/Acetaminophen/Caffeine 1 cap PO AC-TID PRN 01/16/17 03/31/18 [Esgic 50-325-40 Capsule] Ipratropium-Albuterol Nebulize 3 ml INHALATION RT-QID PRN 01/16/17 03/31/18 [Duoneb 0.5 mg-3 mg/3 ml Soln] INSULIN LISPRO (HumaLOG) [humaLOG] See Protocol SQ ACHS PRN 01/19/17 03/31/18 Cholecalciferol [Vitamin D3 (25 1,000 unit PO MOWE 03/03/17 03/31/18 Mcg = 1000 Iu)] Baclofen [Lioresal] 20 mg PO QID 04/26/17 03/31/18 tiZANidine HCL [Zanaflex] 2 mg PO QID 06/15/17 03/31/18 Scopolamine 1.5MG/72Hr Patch 1 patch TRANSDERM Q72H 07/07/17 03/31/18 [TransDerm Scop] rOPINIRole HCL [Requip] 1 mg PO TID 10/30/17 03/31/18 Metoprolol Tartrate [Lopressor] 25 mg PO BID 01/09/18 03/31/18 diphenhydrAMINE [Benadryl] 75 mg PO DAILY PRN 02/11/18 03/31/18 Previous Rx's Medication Instructions Recorded Montelukast [Singulair] 10 mg PO DAILY #30 tab 06/23/16 Omeprazole 40 mg PO DAILY #60 capsule. 07/12/17 Lisinopril [Zestril] 20 mg PO DAILY #30 tab 12/19/17 metFORMIN HCL [Glucophage] 500 mg PO BID #60 tab 02/10/18 Famotidine [Pepcid] 20 mg PO BID #20 tablet 02/11/18 hydrOXYzine HCL [Atarax] 1 - 2 tab PO QID #30 tab 02/11/18 Famotidine [Pepcid] 20 mg PO DAILY #3 tablet 11/20/18 predniSONE 50 mg PO DAILY #3 tab 11/20/18 Allergies Allergy/AdvReac Type Severity Reaction Status Date / Time adhesive Allergy Severe Rash/Hives Verified 03/31/18 13:23 adhesive tape Allergy Severe Rash/Hives Verified 03/31/18 13:23 fentanyl Allergy Severe Rash/Hives Verified 03/31/18 13:23 latex Allergy Severe Rash/Hives Verified 03/31/18 13:23 Review of Systems ROS Statement: Those systems with pertinent positive or pertinent negative responses have been documented in the HPI. ROS Other: All systems not noted in ROS Statement are negative. Past Medical History Past Medical History: Asthma, Diabetes Mellitus, Hypertension, Musculoskeletal Disorder, Neurologic Disorder, Thyroid Disorder Additional Past Medical History / Comment(s): MS, back pain, DEGENERATIVE DISC DISEASE, History of Any Multi-Drug Resistant Organisms: C-DIFF Date of last positivie culture/infection: 2019 MDRO Source:: stool Past Surgical History: Bladder Surgery, Hernia Repair, Hysterectomy, Orthopedic Surgery, Tubal Ligation Additional Past Surgical History / Comment(s): rhinoplasty, bladder suspension, breast sx, morphine pump , RT KNEE SCOPE, TUMMY TUCK, SCS DEVICE INSERTED AND REMOVED-DOES NOT HAVE T-11 IN SPINE. Past Anesthesia/Blood Transfusion Reactions: Motion Sickness, Postoperative N ausea & Vomiting (PONV) Past Psychological History: No Psychological Hx Reported Smoking Status: Never smoker Past Alcohol Use History: None Reported Past Drug Use History: None Reported - Past Family History Father History Unknown: Yes Family Medical History: Hypertension Additional Family Medical History / Comment(s): Pt left home as a teen and does not know parents PMH Mother History Unknown: Yes Family Medical History: No Reported History, Unable to Obtain Additional Family Medical History / Comment(s): NO FAMILY HISTORY General Exam Limitations: no limitations General appearance: alert, in no apparent distress, other (Physical well-dev eloped, well-nourished adult female patient in no acute distress. Vital signs upon presentation are temperature 98.3F, pulse 99, respirations 18, blood pressure 147/92, pulse ox 97% on room air.) Eye exam: Present: normal appearance, PERRL, EOMI. Absent: scleral icterus, conjunctival injection, periorbital swelling ENT exam: Present: normal exam, normal oropharynx, mucous membranes moist Respiratory exam: Present: normal lung sounds bilaterally. Absent: respiratory distress, wheezes, rales, rhonchi, stridor Cardiovascular Exam: Present: regular rate, normal rhythm, normal heart sounds. Absent: systolic murmur, diastolic murmur, rubs, gallop, clicks Neurological exam: Present: alert, oriented X3, CN II-XII intact Psychiatric exam: Present: normal affect, normal mood Skin exam: Present: warm, dry, intact, normal color, rash (Rash noted to the bilateral arms, erythematous, urticarial. Lesions are non-petechial, nonvesicular.) Course Vital Signs 11/19/18 11/20/18 23:19 01:13 Temperature 98.3 F 98 F Pulse Rate 99 77 Respiratory 18 18 Rate Blood Pressure 147/92 137/86 O2 Sat by Pulse 97 96 Oximetry Medical Decision Making - Medical Decision Making 48-year-old female patient presented to the emergency department today for evaluation of rash of the bilateral arms and over left leg. Physical examination did reveal a urticarial type rash. She'll be discharged home at this time with prescription for steroids, Pepcid, and Benadryl cream. She is instructed to follow-up with her primary care physician for recheck as soon as possible. She does have an appointment on Monday. Return parameters were discussed in detail. She verbalizes understanding and agrees with this plan. Disposition Clinical Impression: Rash Disposition: HOME SELF-CARE Condition: Good Instructions (If sedation given, give patient instructions): Diphenhydramine/Zinc (On the skin), Acute Rash (ED) Additional Instructions: Continue Eliana. Take Pepcid and steroid as directed. Apply Benadryl cream 3 times daily as needed. Follow up with her primary care physician for recheck as soon as possible. Return to the emergency department immediately for any new, worsening, or concerning symptoms. Prescriptions: Famotidine [Pepcid] 20 mg PO DAILY #3 tablet predniSONE 50 mg PO DAILY #3 tab Is patient prescribed a controlled substance at d/c from ED?: No Referrals: Viola Serrano MD [Primary Care Provider] - 1-2 days Time of Disposition: 00:25
[2018-11-20 01:15] VITALS: BP 137/86; PULSE 77; TEMP 98
== END 2018-11-20 01:15 | disposition home or self-care (01) ==
LOC: EC 23:18
DX: R21 Rash and other nonspecific skin eruption (principal); J45.909 Unspecified asthma, uncomplicated; E11.9 Type 2 diabetes mellitus without complications; I10 Essential (primary) hypertension; E07.9 Disorder of thyroid, unspecified; Z79.890 Hormone replacement therapy; Z79.4 Long term (current) use of insulin; Z79.899 Other long term (current) drug therapy; Z91.040 Latex allergy status; Z91.048 Other nonmedicinal substance allergy status; Z88.5 Allergy status to narcotic agent
CPT/HCPCS: 99282; 96372 ×2; J1200; J2930

== ENCOUNTER 2018-12-05 15:51 | Observation (INO) | payer BC, MEDICARE ==
[2018-12-05] MEDS ORDERED: KETOROLAC 30 MG/ML 1 ML VIAL IVP STA (16:29)
[2018-12-05] MEDS ORDERED: DEXAMETHASONE SOD PHOSPHATE 10 MG/ML 1 ML VIAL IV STA (16:29)
[2018-12-05] MEDS ORDERED: MAGNESIUM SULFATE-D5W PMX 1 GM in DEXTROSE/WATER 1 100ML.BAG IVPB ONE (16:29)
[2018-12-05] MEDS ORDERED: ONDANSETRON 4 MG/2 ML VIAL IVP STA (16:29)
[2018-12-05] MEDS ORDERED: SODIUM CHLORIDE 0.9% 1,000 ML IV STA (16:29)
[2018-12-05] MEDS ORDERED: diphenhydrAMINE 50 MG/ML 1 ML VIAL IVP STA (16:29)
[2018-12-05 16:46] LABS: Basophils # (A) 0.1 k/uL (0-0.2); Basophils % (A) 1 %; Eosinophils # (A) 0.2 k/uL (0-0.7); Eosinophils % (A) 2 %; HCT 39.9 % (34.0-46.0); HGB 13.3 gm/dL (11.4-16.0); Lymphocytes # (A) 2.2 k/uL (1.0-4.8); Lymphocytes % (A) 22 %; MCH 28.6 pg (25.0-35.0); MCHC 33.3 g/dL (31.0-37.0); MCV 85.9 fL (80.0-100.0); Mean Platelet Volume 6.4; Monocytes # (A) 0.4 k/uL (0-1.0); Monocytes % (A) 4 %; Neutrophils # (A) 6.8 k/uL (1.3-7.7); Neutrophils % (A) 69 %; Platelet Count 316 k/uL (150-450); RBC 4.65 m/uL (3.80-5.40); RDW 13.9 % (11.5-15.5); WBC 9.9 k/uL (3.8-10.6)
[2018-12-05 16:50] LABS: Appearance,Urine Cloudy (Clear); Bacteria,Urine Rare /hpf; Bilirubin,Urine Negative (Negative); Blood,Urine Negative (Negative); Color,Urine Yellow; Glucose,Urine (UA) Negative (Negative); Ketones,Urine Negative (Negative); Leukocyte Esterase,Urine Small (Negative); Mucus,Urine Rare /hpf; Nitrite,Urine Negative (Negative); Protein,Urine Trace (Negative); RBC,Urine 1 /hpf (0-5); Specific Gravity,Urine 1.021 (1.001-1.035); Squamous Epithelial Cell,Urine 6 /hpf (0-4); Urobilinogen,Urine <2.0 mg/dL (<2.0); WBC,Urine 3 /hpf (0-5)
[2018-12-05 16:56] LABS: ALT 22 U/L (9-52); AST 22 U/L (14-36); African American GFR (CKD) >90 (>60 ml/min/1.73 sqM); Alkaline Phosphatase 72 U/L (38-126); Anion Gap 12 mmol/L; Blood Urea Nitrogen 12 mg/dL (7-17); Calcium 9.1 mg/dL (8.4-10.2); Carbon Dioxide 24 mmol/L (22-30); Chloride 104 mmol/L (98-107); Glucose 149 mg/dL (74-99); Potassium 3.8 mmol/L (3.5-5.1); Sodium 140 mmol/L (137-145); Total Bilirubin 0.6 mg/dL (0.2-1.3); Total Protein 6.5 g/dL (6.3-8.2)
--- NOTE | 2018-12-05 18:27 | ED ---
Headache HPI - General Chief Complaint: Headache Stated Complaint: migraine x 3 days Time Seen by Provider: 12/05/18 16:02 Mode of arrival: ambulatory Limitations: no limitations - History of Present Illness Initial Comments: The patient is a 48-year-old female with past medical history of MS and migraines who presents to the emergency room with a headache that has been going on for the past 3 days. She states that she normally takes Topamax and Imitrex at home for her symptoms. States that she's been taking both these medications at home without improvement. She states that the duration of the headache is inconsistent with her previous migraines. It is described as a global ache. She denies any visual changes, unilateral numbness or weakness, slurred speech or confusion. She does report to photophobia and phonophobia. Reports neck pain. Denies any fevers or chills. No sick contacts. No recent head trauma. This was not sudden onset or maximal intensity. Also reports to profuse watery diarrhea which has been going on for the past 3 days. She was on antibiotics several months ago and did develop C. diff. Last week she did have an open wound on her lower extremity and did take an additional course of antibiotics. She is concerned that she may have C. diff again.She denies any urinary changes to include dysuria, hematuria or difficulty voiding. Denies any melanotic stools or hematochezia. There are no other alleviating, precipitating or modifying factors - Related Data Home Medications Medication Instructions Recorded Confirmed Albuterol Sulfate [Proair Hfa] See Taper INHALATION RT-Q6H PRN 09/26/15 12/05/18 Atorvastatin [Lipitor] 10 mg PO DAILY 09/26/15 12/05/18 DULoxetine HCL [Cymbalta] 60 mg PO QAM 01/10/17 12/05/18 Butalb/Acetaminophen/Caffeine 1 cap PO AC-TID PRN 01/16/17 12/05/18 [Esgic 50-325-40 Capsule] Ipratropium-Albuterol Nebulize 3 ml INHALATION RT-QID PRN 01/16/17 12/05/18 [Duoneb 0.5 mg-3 mg/3 ml Soln] INSULIN LISPRO (HumaLOG) [humaLOG] See Protocol SQ ACHS PRN 01/19/17 12/05/18 Cholecalciferol [Vitamin D3 (25 1,000 unit PO MOWE 03/03/17 12/05/18 Mcg = 1000 Iu)] Baclofen [Lioresal] 20 mg PO QID 04/26/17 12/05/18 tiZANidine HCL [Zanaflex] 2 mg PO QID 06/15/17 12/05/18 Scopolamine 1.5MG/72Hr Patch 1 patch TRANSDERM Q72H 07/07/17 12/05/18 [TransDerm Scop] Metoprolol Tartrate [Lopressor] 25 mg PO DAILY 01/09/18 12/05/18 Acetaminophen-Codeine 300-30mg 1 tab PO TID PRN 12/05/18 12/05/18 [Tylenol w/codeine #3] Glatiramer Acetate [Copaxone] 40 mg SQ MOWEFR 12/05/18 12/05/18 Levothyroxine Sodium [Synthroid] 112 mcg PO DAILY 12/05/18 12/05/18 SUMAtriptan SUCCINATE [Sumatriptan 6 mg SQ DAILY PRN 12/05/18 12/05/18 Succinate] Topiramate [Topamax] 50 mg PO BID PRN 12/05/18 12/05/18 rOPINIRole HCL [Requip] 2 mg PO TID 12/05/18 12/05/18 Previous Rx's Medication Instructions Recorded Montelukast [Singulair] 10 mg PO DAILY #30 tab 06/23/16 Lisinopril [Zestril] 20 mg PO DAILY #30 tab 12/19/17 metFORMIN HCL [Glucophage] 500 mg PO BID #60 tab 02/10/18 Famotidine [Pepcid] 20 mg PO BID #20 tablet 02/11/18 Magnesium Oxide [Mag-Ox] 400 mg PO BID #30 tab 12/06/18 Allergies Allergy/AdvReac Type Severity Reaction Status Date / Time adhesive Allergy Severe Rash/Hives Verified 12/05/18 16:27 adhesive tape Allergy Severe Rash/Hives Verified 12/05/18 16:27 fentanyl Allergy Severe Rash/Hives Verified 12/05/18 16:27 latex Allergy Severe Rash/Hives Verified 12/05/18 16:27 Review of Systems ROS Statement: Those systems with pertinent positive or pertinent negative responses have been documented in the HPI. ROS Other: All systems not noted in ROS Statement are negative. Past Medical History Past Medical History: Asthma, Diabetes Mellitus, Hypertension, Musculoskeletal Disorder, Neurologic Disorder, Thyroid Disorder Additional Past Medical History / Comment(s): MS, back pain, DEGENERATIVE DISC DISEASE, History of Any Multi-Drug Resistant Organisms: C-DIFF Date of last positivie culture/infection: 2018 MDRO Source:: stool Past Surgical History: Bladder Surgery, Hernia Repair, Hysterectomy, Orthopedic Surgery, Tubal Ligation Additional Past Surgical History / Comment(s): rhinoplasty, bladder suspension, breast sx, morphine pump , RT KNEE SCOPE, TUMMY TUCK, SCS DEVICE INSERTED AND REMOVED-DOES NOT HAVE T-11 IN SPINE. Past Anesthesia/Blood Transfusion Reactions: Motion Sickness, Postoperative Nausea & Vomiting (PONV) Past Psychological History: No Psychological Hx Reported Smoking Status: Never smoker Past Alcohol Use History: None Reported Past Drug Use History: None Reported - Past Family History Father History Unknown: Yes Family Medical History: Hypertension Additional Family Medical History / Comment(s): Pt left home as a teen and does not know parents PMH Mother History Unknown: Yes Family Medical History: No Reported History, Unable to Obtain Additional Family Medical History / Comment(s): NO FAMILY HISTORY General Exam Limitations: no limitations General appearance: alert, in no apparent distress Head exam: Present: atraumatic, normocephalic, normal inspection, other (tenderness to the posterior occiput) Eye exam: Present: normal appearance, PERRL, EOMI. Absent: scleral icterus, conjunctival injection, periorbital swelling ENT exam: Present: normal exam, mucous membranes moist Neck exam: Present: normal inspection. Absent: tenderness, meningismus, lymphadenopathy Respiratory exam: Present: normal lung sounds bilaterally. Absent: respiratory distress, wheezes, rales, rhonchi, stridor Cardiovascular Exam: Present: regular rate, normal rhythm, normal heart sounds. Absent: systolic murmur, diastolic murmur, rubs, gallop, clicks GI/Abdominal exam: Present: soft, normal bowel sounds. Absent: distended, tenderness, guarding, rebound, rigid Extremities exam: Present: normal inspection, full ROM, normal capillary refill. Absent: tenderness, pedal edema, joint swelling, calf tenderness Back exam: Present: normal inspection Neurological exam: Present: alert, oriented X3, CN II-XII intact Psychiatric exam: Present: normal affect, normal mood Skin exam: Present: warm, dry, intact, normal color. Absent: rash Course Vital Signs 12/05/18 12/05/18 15:51 18:45 Temperature 98.8 F 97.7 F Pulse Rate 99 82 Respiratory 18 15 Rate Blood Pressure 161/123 130/81 O2 Sat by Pulse 96 98 Oximetry Medical Decision Making - Medical Decision Making Upon arrival the patient is placed into room 21. She is hooked up to continuous pulse ox and cardiac monitoring. Peripheral IV is established. The patient is given 4 mg of Zofran, 25 mg of Benadryl, 1 g of magnesium, 15 milligrams of Toradol, and 10 mg of Decadron. I did recommend laboratory studies. I did discuss CT examination the patient's head. The patient is refusing head CT at this time. I did order a urinalysis and stool sample. Upon review the patient's results she does have trace leukocyte esterase in her urine. We will hold off on initiating antibiotics as the patient reports to possible C. diff. Still currently awaiting a stool study. The patient's glucose is 149. I did re evaluate the patient she continues to have a persistent headache. She normally states that the migraine cocktail does alleviate her symptoms however once she did have to be hospitalized for her headache. I discussed diagnosis, differential and treatment options. The patient states that he continues to have persistent right-sided headache. She does not feel comfortable going home. Because of this I did call discuss case with Dr. dozier. He did accept admission of the patient. I will place neurology on consult. The patient remained in stable condition and is awaiting a bed on the floor - Lab Data Result diagrams: 12/05/18 16:30 12/05/18 16:30 Lab Results 12/05/18 12/05/18 12/05/18 Range/Units 16:30 16:30 16:30 WBC 9.9 (3.8-10.6) k/uL RBC 4.65 (3.80-5.40) m/uL Hgb 13.3 (11.4-16.0) gm/dL Hct 39.9 (34.0-46.0) % MCV 85.9 (80.0-100.0) fL MCH 28.6 (25.0-35.0) pg MCHC 33.3 (31.0-37.0) g/dL RDW 13.9 (11.5-15.5) % Plt Count 316 (150-450) k/uL Neutrophils % 69 % Lymphocytes % 22 % Monocytes % 4 % Eosinophils % 2 % Basophils % 1 % Neutrophils # 6.8 (1.3-7.7) k/uL Lymphocytes # 2.2 (1.0-4.8) k/uL Monocytes # 0.4 (0-1.0) k/uL Eosinophils # 0.2 (0-0.7) k/uL Basophils # 0.1 (0-0.2) k/uL Sodium 140 (137-145) mmol/L Potassium 3.8 (3.5-5.1) mmol/L Chloride 104 (98-107) mmol/L Carbon Dioxide 24 (22-30) mmol/L Anion Gap 12 mmol/L BUN 12 (7-17) mg/dL Creatinine 0.66 (0.52-1.04) mg/dL Est GFR (CKD-EPI)AfAm >90 (>60 ml/min/1.73 sqM) Est GFR (CKD-EPI)NonAf >90 (>60 ml/min/1.73 sqM) Glucose 149 H (74-99) mg/dL Calcium 9.1 (8.4-10.2) mg/dL Total Bilirubin 0.6 (0.2-1.3) mg/dL AST 22 (14-36) U/L ALT 22 (9-52) U/L Alkaline Phosphatase 72 (38-126) U/L Total Protein 6.5 (6.3-8.2) g/dL Albumin 4.0 (3.5-5.0) g/dL TSH 2.860 (0.465-4.680) mIU/L Urine Color Urine Appearance (Clear) Urine pH (5.0-8.0) Ur Specific [place] (1.001-1.035) Urine Protein (Negative) Urine Glucose (UA) (Negative) Urine Ketones (Negative) Urine Blood (Negative) Urine Nitrite (Negative) Urine Bilirubin (Negative) Urine Urobilinogen (<2.0) mg/dL Ur Leukocyte Esterase (Negative) Urine RBC (0-5) /hpf Urine WBC (0-5) /hpf Ur Squamous Epith Cells (0-4) /hpf Urine Bacteria (None) /hpf Urine Mucus (None) /hpf Urine HCG, Qual Not Detected (Not Detectd) 12/05/18 Range/Units 16:30 WBC (3.8-10.6) k/uL RBC (3.80-5.40) m/uL Hgb (11.4-16.0) gm/dL Hct (34.0-46.0) % MCV (80.0-100.0) fL MCH (25.0-35.0) pg MCHC (31.0-37.0) g/dL RDW (11.5-15.5) % Plt Count (150-450) k/uL Neutrophils % % Lymphocytes % % Monocytes % % Eosinophils % % Basophils % % Neutrophils # (1.3-7.7) k/uL Lymphocytes # (1.0-4.8) k/uL Monocytes # (0-1.0) k/uL Eosinophils # (0-0.7) k/uL Basophils # (0-0.2) k/uL Sodium (137-145) mmol/L Potassium (3.5-5.1) mmol/L Chloride (98-107) mmol/L Carbon Dioxide (22-30) mmol/L Anion Gap mmol/L BUN (7-17) mg/dL Creatinine (0.52-1.04) mg/dL Est GFR (CKD-EPI)AfAm (>60 ml/min/1.73 sqM) Est GFR (CKD-EPI)NonAf (>60 ml/min/1.73 sqM) Glucose (74-99) mg/dL Calcium (8.4-10.2) mg/dL Total Bilirubin (0.2-1.3) mg/dL AST (14-36) U/L ALT (9-52) U/L Alkaline Phosphatase (38-126) U/L Total Protein (6.3-8.2) g/dL Albumin (3.5-5.0) g/dL TSH (0.465-4.680) mIU/L Urine Color Yellow Urine Appearance Cloudy H (Clear) Urine pH 5.0 (5.0-8.0) Ur Specific [place] 1.021 (1.001-1.035) Urine Protein Trace H (Negative) Urine Glucose (UA) Negative (Negative) Urine Ketones Negative (Negative) Urine Blood Negative (Negative) Urine Nitrite Negative (Negative) Urine Bilirubin Negative (Negative) Urine Urobilinogen <2.0 (<2.0) mg/dL Ur Leukocyte Esterase Small H (Negative) Urine RBC 1 (0-5) /hpf Urine WBC 3 (0-5) /hpf Ur Squamous Epith Cells 6 H (0-4) /hpf Urine Bacteria Rare H (None) /hpf Urine Mucus Rare H (None) /hpf Urine HCG, Qual (Not Detectd) Disposition Clinical Impression: Migraine, Diarrhea Disposition: ADMITTED IP TO THIS [facility] Condition: Stable Is patient prescribed a controlled substance at d/c from ED?: No Decision to Admit Reason: Admit from EC Decision Date: 12/05/18 Decision Time: 18:54
[2018-12-05] MEDS ORDERED: NALOXONE 0.4 MG/ML 1 ML VIAL IV PRN (18:55)
[2018-12-05] MEDS ORDERED: SUMAtriptan SUCCINATE 6 MG/0.5 ML VIAL SQ PRN (18:59)
[2018-12-05] MEDS ORDERED: TOPIRAMATE 25 MG TAB PO PRN (18:59)
[2018-12-05] MEDS ORDERED: SODIUM CHLORIDE 0.9% 1,000 ML IV SCH (19:00)
[2018-12-05 20:23] LABS: Glucose,Whole Blood 152 mg/dL (75-99)
[2018-12-05] MEDS: FAMOTIDINE 20 MG TAB PO SCH (21:01)
[2018-12-05] MEDS: ONDANSETRON 4 MG/2 ML VIAL IVP PRN (21:01)
[2018-12-05] MEDS: BACLOFEN 10 MG TAB PO SCH (21:01)
[2018-12-05] MEDS: INSULIN ASPART (NovoLOG) 100 UNIT/ML VIAL SQ SCH (21:02)
[2018-12-05] MEDS: diphenhydrAMINE 50 MG/ML 1 ML VIAL IVP PRN (23:07)
[2018-12-05] MEDS: KETOROLAC 30 MG/ML 1 ML VIAL IVP PRN (23:08)
[2018-12-06] MEDS: BUTALB/APAP/CAFF 50-325-40MG TAB PO PRN ×2 (03:18→11:18)
[2018-12-06] MEDS: ONDANSETRON 4 MG/2 ML VIAL IVP PRN ×3 (03:18→16:56)
[2018-12-06 04:42] VITALS: TEMP 98.6
[2018-12-06] MEDS: diphenhydrAMINE 50 MG/ML 1 ML VIAL IVP PRN ×3 (05:04→17:41)
[2018-12-06] MEDS: KETOROLAC 30 MG/ML 1 ML VIAL IVP PRN ×3 (05:04→17:42)
[2018-12-06] MEDS ORDERED: LEVOTHYROXINE 112 MCG TAB PO SCH (06:30)
[2018-12-06 07:19] LABS: Glucose,Whole Blood 143 mg/dL (75-99)
[2018-12-06] MEDS: INSULIN ASPART (NovoLOG) 100 UNIT/ML VIAL SQ SCH ×3 (07:40→16:56)
[2018-12-06] MEDS: BACLOFEN 10 MG TAB PO SCH ×3 (07:40→16:55)
[2018-12-06] MEDS: FAMOTIDINE 20 MG TAB PO SCH (07:41)
[2018-12-06] MEDS ORDERED: DULoxetine HCL 60 MG CAPSULE.DR PO SCH (09:00)
[2018-12-06] MEDS ORDERED: MONTELUKAST 10 MG TAB PO SCH (09:00)
[2018-12-06] MEDS ORDERED: METOPROLOL TARTRATE 25 MG TAB PO SCH (09:00)
[2018-12-06] MEDS ORDERED: LISINOPRIL 20 MG TAB PO SCH (09:00)
[2018-12-06] MEDS ORDERED: ATORVASTATIN 10 MG TAB PO SCH (09:00)
[2018-12-06 11:55] LABS: Glucose,Whole Blood 153 mg/dL (75-99)
[2018-12-06] MEDS ORDERED: MAGNESIUM OXIDE 400 MG TAB PO SCH (12:45)
--- NOTE | 2018-12-06 12:46 | P.CNNES ---
History of Present Illness Consult date: 12/06/18 Reason for Consult: Intractable cephalgia Chief complaint: Headaches 3 days History of Present Illness: REFERRING PHYSICIAN: Dr. Joi Cid HISTORY OF PRESENT ILLNESS: Thank you for allowing me to evaluate Ms. Peyton Braun is a 48-year-old woman with past medical history of asthma, multiple sclerosis, diabetes, hypertension, back pain, hypothyroidism, presenting with 4 days of significant migraine. Patient states that her daughter moved in with her about 4 months ago with her 5 kids, so it's been very difficult to manage her migraines which are staying in a quiet and dark room. Patient also states that she's been having issues with diarrhea for about 4 days. Patient was recently on Ocrevus, but she did not tolerate it. Patient is just on Copaxone for her MS, and she will be meeting with her neurologist Dr. Rivera for further management. Patient stated that she's only been on Topamax for her migraine. Patient takes Sumatriptan and Fioricet when she starts having a headache. Patient only takes Topamax as needed cause she does not like its side effects. She has not been on any other migraine prophylactics. Patient states that her previous MS exacerbations included weakness and vision deficits. Patient herself does not believe that she is having an MS flare. She is complaining of a lot of headache as well as bilateral yesterday 10 out of 10 pain with photophobia and phonophobia, which has improved after she got her Decadron, magnesium, Zofran as her medical detail in the ED yesterday. PAST MEDICAL HISTORY: Asthma, multiple sclerosis, diabetes, hypertension, back pain, hypothyroidism, multiple sclerosis, pain, degenerative disc disease, PAST SURGICAL HISTORY: Rhinoplasty, hernia repair, hysterectomy, tubal ligation, breast surgery, morphine pump, tummy tuck HOME MEDICATIONS: Singulair, fluoxetine, insulin, vitamin D, baclofen, tizanidine, scopolamine q72 hours, Lisinopril, metoprolol, metformin, famotidine, Topamax PRN, Copaxone, ropinirole, levothyroxine, sumatriptan prn ALLERGIES: Adhesive and no latex SOCIAL HISTORY: Never smoker. FAMILY HISTORY: Father hypertension. Brother at age 27 with a heart attack (Brother at that time a diagnosis of sleep apnea) REVIEW OF SYSTEMS: The 14 systems are reviewed and no additional points are identified compared to the review of systems documented history and physical PHYSICAL EXAMINATION: VITAL SIGNS: Temperature 98.6 pulse rate 90 respiratory rate 20 blood pressure 152/77 O2 saturation 97% on room air GEN.: NAD, pleasant and cooperative HEENT: NCAT, sclera without icterus NECK: Supple SKIN AND EXTREMITIES: Warm to touch, no edema NEURO: MENTAL STATUS: Patient alert and oriented to self, place, time. Able to name the current president. Speech fluent, able to name and repeat, following all commands readily. No right and left disorientation, extinction to double simultaneous stimulation, finger agnosia, neglect. CRANIAL NERVES II THROUGH XII: II: Pupils are equal and reactive to light symmetrically. Afferent pupillary defect present in both eyes. Visual leung are intact. III, IV, : No ptosis. Extraocular movements full. No nystagmus. V: Facial sensation intact from V1-3. VII. No clear facial asymmetry. VIII: Hearing intact to finger rub bilaterally. IX, X: Symmetric palate elevation. XI: Shoulder shrug intact. XII: Tongue midline without fasciculation or atrophy. MOTOR: Normal bulk/tone. No pronator drift or tremor. Strength is 5/5 in right upper and lower extremity. Left upper extremity and lower extremity proximal strength is greater than her distal strength. Patient mostly has difficulty with dorsiflexion of her left foot and finger register of wills. Overall however, 4/5 strength in left upper and lower extremity. SENSORY: Grossly intact REFLEXES: 2+ throughout, toes downgoing COORDINATION: Finger to nose intact. No dysmetria. GAIT: Patient refusing to headache DIAGNOSTIC TESTING: LABORATORY: WBC 9.9 hemoglobin 13.3 platelet 316 sodium 140 potassium 3.8 chloride 104 bicarb 24 BUN 12 creatinine 0.66 glucose 149 AST 22 ALT 22 alk phos 72 TSH 2.6 urinalysis small LEUK esterase IMAGING: MRI brain without contrast and cervical MRI on 10/03/2017: Normal cervical MRI. 5 mm focus of abnormal signal within the right cerebral hemisphere and a 2 mm area of abnormal signal within the left parietal white matter. No acute intracranial process. Findings are nonspecific ASSESSMENT: Ms. Braun is a 48-year-old woman with past medical history of asthma, multiple sclerosis, diabetes, hypertension, back pain, hypothyroidism, presenting with 4 days of significant migraine. Her migraine has improved about 30% per patient since the migraine cocktail. Previously, patient has gotten occipital nerve block which helped with her headache. This point, patient with mostly occipital headache. Patient states that she has gotten occipital nerve blocks at her neurologists office, she doesn't like getting them there is the PA that gives her a nerve block injection. Patient does not want to take scheduled Topamax. Patient also reporting some difficulty with sleeping, for which patient actually has a sleep study scheduled for next week. Patient states that she's had some possible blocking while sitting on her bed with her . Patient denies any heart palpitations or chest pain. There is some concern about starting a TCA as patient having these possible syncope-like episodes. Gave her a list of medications the patient can ask her neurologist about for migraine prophylaxis. RECOMMENDATIONS: 1. Magnesium 500 mg twice a day. The patient having diarrhea, can increase to once a day dosing. 2. Patient should also be started on vitamin B2 400 mg once a day for migraine prophylaxis. However not on the formulary at this hospitals. Patient agrees to purchase it and discharge. 3. Neurology will sign off at this time. Please feel free to contact Neurology again if with additional questions or concerns. Past Medical History Past Medical History: Asthma, Diabetes Mellitus, Hypertension, Musculoskeletal Disorder, Neurologic Disorder, Thyroid Disorder Additional Past Medical History / Comment(s): MS, back pain, DEGENERATIVE DISC DISEASE, History of Any Multi-Drug Resistant Organisms: C-DIFF Date of last positivie culture/infection: 2018 MDRO Source:: stool Past Surgical History: Bladder Surgery, Hernia Repair, Hysterectomy, Orthopedic Surgery, Tubal Ligation Additional Past Surgical History / Comment(s): rhinoplasty, bladder suspension, breast sx, morphine pump , RT KNEE SCOPE, TUMMY TUCK, SCS DEVICE INSERTED AND REMOVED-DOES NOT HAVE T-11 IN SPINE. Past Anesthesia/Blood Transfusion Reactions: Motion Sickness, Postoperative Nausea & Vomiting (PONV) Past Psychological History: No Psychological Hx Reported Additional Psychological History / Comment(s): Pt resides with her spouse and a 16 yr old mindy. She has a glucometer. She is independent. Smoking Status: Never smoker Past Alcohol Use History: None Reported Past Drug Use History: None Reported - Past Family History Father History Unknown: Yes Family Medical History: Hypertension Additional Family Medical History / Comment(s): Pt left home as a teen and does not know parents PMH Mother History Unknown: Yes Family Medical History: No Reported History, Unable to Obtain Additional Family Medical History / Comment(s): NO FAMILY HISTORY Medications and Allergies Home Medications Medication Instructions Recorded Confirmed Type Albuterol Sulfate [Proair Hfa] See Taper INHALATION RT-Q6H PRN 09/26/15 12/05/18 History Atorvastatin [Lipitor] 10 mg PO DAILY 09/26/15 12/05/18 History Montelukast [Singulair] 10 mg PO DAILY #30 tab 06/23/16 12/05/18 Rx DULoxetine HCL [Cymbalta] 60 mg PO QAM 01/10/17 12/05/18 History Butalb/Acetaminophen/Caffeine 1 cap PO AC-TID PRN 01/16/17 12/05/18 History [Esgic 50-325-40 Capsule] Ipratropium-Albuterol Nebulize 3 ml INHALATION RT-QID PRN 01/16/17 12/05/18 History [Duoneb 0.5 mg-3 mg/3 ml Soln] INSULIN LISPRO (HumaLOG) [humaLOG] See Protocol SQ ACHS PRN 01/19/17 12/05/18 History Cholecalciferol [Vitamin D3 (25 1,000 unit PO MOWE 03/03/17 12/05/18 History Mcg = 1000 Iu)] Baclofen [Lioresal] 20 mg PO QID 04/26/17 12/05/18 History tiZANidine HCL [Zanaflex] 2 mg PO QID 06/15/17 12/05/18 History Scopolamine 1.5MG/72Hr Patch 1 patch TRANSDERM Q72H 07/07/17 12/05/18 History [TransDerm Scop] Lisinopril [Zestril] 20 mg PO DAILY #30 tab 12/19/17 12/05/18 Rx Metoprolol Tartrate [Lopressor] 25 mg PO DAILY 01/09/18 12/05/18 History metFORMIN HCL [Glucophage] 500 mg PO BID #60 tab 02/10/18 12/05/18 Rx Famotidine [Pepcid] 20 mg PO BID #20 tablet 02/11/18 12/05/18 Rx Acetaminophen-Codeine 300-30mg 1 tab PO TID PRN 12/05/18 12/05/18 History [Tylenol w/codeine #3] Glatiramer Acetate [Copaxone] 40 mg SQ MOWEFR 12/05/18 12/05/18 History Levothyroxine Sodium [Synthroid] 112 mcg PO DAILY 12/05/18 12/05/18 History SUMAtriptan SUCCINATE [Sumatriptan 6 mg SQ DAILY PRN 12/05/18 12/05/18 History Succinate] Topiramate [Topamax] 50 mg PO BID PRN 12/05/18 12/05/18 History rOPINIRole HCL [Requip] 2 mg PO TID 12/05/18 12/05/18 History Allergies Allergy/AdvReac Type Severity Reaction Status Date / Time adhesive Allergy Severe Rash/Hives Verified 12/05/18 16:27 adhesive tape Allergy Severe Rash/Hives Verified 12/05/18 16:27 fentanyl Allergy Severe Rash/Hives Verified 12/05/18 16:27 latex Allergy Severe Rash/Hives Verified 12/05/18 16:27 Physical Examination - Vital Signs Vital Signs: Vital Signs Temp Pulse Pulse Resp BP BP Pulse Ox 12/06/18 04:30 98.6 F 90 20 152/77 97 12/05/18 20:10 98.8 F 83 20 159/95 95 12/05/18 18:45 97.7 F 82 15 130/81 98 12/05/18 15:51 98.8 F 99 18 161/123 96 Intake and Output 12/05/18 12/06/18 12/06/18 22:59 06:59 14:59 Intake Total 200 100 Balance 200 100 Intake: Oral 200 100 Other: # Voids 1 Weight 113.398 kg Results - Laboratory Findings CBC and BMP: 12/05/18 16:30 12/05/18 16:30 Abnormal Lab Findings: Abnormal Labs 12/05/18 12/05/18 12/05/18 16:30 16:30 20:19 Glucose 149 H POC Glucose (mg/dL) 152 H Urine Appearance Cloudy H Urine Protein Trace H Ur Leukocyte Esterase Small H Ur Squamous Epith Cells 6 H Urine Bacteria Rare H Urine Mucus Rare H 12/06/18 07:10 Glucose POC Glucose (mg/dL) 143 H Urine Appearance Urine Protein Ur Leukocyte Esterase Ur Squamous Epith Cells Urine Bacteria Urine Mucus
[2018-12-06] MEDS ORDERED: BUPIVACAINE (PF) 0.5% 30 ML VIAL SQ ONE (15:11)
[2018-12-06] MEDS ORDERED: TRIAMCINOLONE ACETONIDE 40 MG/ML 1 ML VIAL INTRADERMA ONE (15:12)
[2018-12-06 15:16] VITALS: BP 102/68; PULSE 69; RESP 16
[2018-12-06 16:54] LABS: Glucose,Whole Blood 144 mg/dL (75-99)
--- NOTE | 2018-12-06 17:06 | P.PAINCN ---
History of Present Illness - Reason for Consult Consult date: 12/06/18 - History of Present Illness Consult date: 12/06/18 Reason for Consult: Occipital neuralgia Chief complaint: Headaches 3 days History of Present Illness: REFERRING PHYSICIAN: Dr. José Ferreira HISTORY OF PRESENT ILLNESS: Ms. Braun is a 48-year-old woman with past medical history of asthma, multiple sclerosis, diabetes, hypertension, back pain, hypothyroidism, presenting with 4 days of significant migraine. She is also complaining of bilateral occipital pain, left greater than right, with radiation into the upper part of her neck. She has had this kind of pain before, and has responded well to bilateral occipital nerve blocks. The patient was evaluated by neurology, who recommended bilateral occipital nerve blocks. We will consult for this reason. PAST MEDICAL HISTORY: Asthma, multiple sclerosis, diabetes, hypertension, back pain, hypothyroidism, multiple sclerosis, pain, degenerative disc disease, PAST SURGICAL HISTORY: Rhinoplasty, hernia repair, hysterectomy, tubal ligation, breast surgery, morphine pump, tummy tuck HOME MEDICATIONS: Singulair, fluoxetine, insulin, vitamin D, baclofen, tizanidine, scopolamine q72 hours, Lisinopril, metoprolol, metformin, famotidine, Topamax PRN, Copaxone, ropinirole, levothyroxine, sumatriptan prn ALLERGIES: Adhesive and no latex SOCIAL HISTORY: Never smoker. FAMILY HISTORY: Father hypertension. Brother at age 27 with a heart attack (Brother at that time a diagnosis of sleep apnea) REVIEW OF SYSTEMS: The 14 systems are reviewed and no additional points are identified compared to the review of systems documented history and physical, except chronic bowel and bladder incontinence patient attributes to multiple sclerosis. PHYSICAL EXAMINATION: VITAL SIGNS: Temperature 98.6 pulse rate 90 respiratory rate 20 blood pressure 1 52/77 O2 saturation 97% on room air GEN.: NAD, pleasant and cooperative HEENT: NCAT, sclera without icterus NECK: Supple SKIN AND EXTREMITIES: Warm to touch, no edema NEURO: MENTAL STATUS: Patient alert, CRANIAL NERVES II THROUGH XII: Grossly intact DIAGNOSTIC TESTING: LABORATORY: WBC 9.9 hemoglobin 13.3 platelet 316 sodium 140 potassium 3.8 chloride 104 bicarb 24 BUN 12 creatinine 0.66 glucose 149 AST 22 ALT 22 alk phos 72 TSH 2.6 urinalysis small LEUK esterase IMAGING: MRI brain without contrast and cervical MRI on 10/03/2017: Normal cervical MRI. 5 mm focus of abnormal signal within the right cerebral hemisphere and a 2 mm area of abnormal signal within the left parietal white matter. No acute intracranial process. Findings are nonspecific ASSESSMENT: Ms. Braun is a 48-year-old woman with past medical history of asthma, multiple sclerosis, diabetes, hypertension, back pain, hypothyroidism, presenting with 4 days of significant migraine with occipital neuralgia. Previously, patient has gotten occipital nerve block in the past which helped with her headache. At this point, patient with mostly occipital headache. RECOMMENDATIONS: 1. Bilateral occipital nerve blocks done at bedside today. See separate procedure note. 2. Medication management per neurology and primary service. 3. We will sign off at this time, please call with additional questions. Thank you for allowing us to participate in the care of . Past Medical History Past Medical History: Asthma, Diabetes Mellitus, Hypertension, Musculoskeletal Disorder, Neurologic Disorder, Thyroid Disorder Additional Past Medical History / Comment(s): MS, back pain, DEGENERATIVE DISC DISEASE, History of Any Multi-Drug Resistant Organisms: C-DIFF Year Discovered:: 2018 MDRO Source:: stool Past Surgical History: Bladder Surgery, Hernia Repair, Hysterectomy, Orthopedic Surgery, Tubal Ligation Additional Past Surgical History / Comment(s): rhinoplasty, bladder suspension, breast sx, morphine pump , RT KNEE SCOPE, TUMMY TUCK, SCS DEVICE INSERTED AND REMOVED-DOES NOT HAVE T-11 IN SPINE. Past Anesthesia/Blood Transfusion Reactions: Motion Sickness, Postoperative Nausea & Vomiting (PONV) Past Psychological History: No Psychological Hx Reported Additional Psychological History / Comment(s): Pt resides with her spouse and a 16 yr old mindy. She has a glucometer. She is independent. Smoking Status: Never smoker Past Alcohol Use History: None Reported Past Drug Use History: None Reported - Past Family History Father History Unknown: Yes Family Medical History: Hypertension Additional Family Medical History / Comment(s): Pt left home as a teen and does not know parents PMH Mother History Unknown: Yes Family Medical History: No Reported History, Unable to Obtain Additional Family Medical History / Comment(s): NO FAMILY HISTORY Medications and Allergies Home Medications Medication Instructions Recorded Confirmed Type Albuterol Sulfate [Proair Hfa] See Taper INHALATION RT-Q6H PRN 09/25/12/05/18 History Atorvastatin [Lipitor] 10 mg PO DAILY 09/26/15 12/05/18 History Montelukast [Singulair] 10 mg PO DAILY #30 tab 06/23/16 12/05/18 Rx DULoxetine HCL [Cymbalta] 60 mg PO QAM 01/10/17 12/05/18 History Butalb/Acetaminophen/Caffeine 1 cap PO AC-TID PRN 01/16/17 12/05/18 History [Esgic 50-325-40 Capsule] Ipratropium-Albuterol Nebulize 3 ml INHALATION RT-QID PRN 01/16/17 12/05/18 History [Duoneb 0.5 mg-3 mg/3 ml Soln] INSULIN LISPRO (HumaLOG) [humaLOG] See Protocol SQ ACHS PRN 01/19/17 12/05/18 History Cholecalciferol [Vitamin D3 (25 1,000 unit PO MOWE 03/03/17 12/05/18 History Mcg = 1000 Iu)] Baclofen [Lioresal] 20 mg PO QID 04/26/17 12/05/18 History tiZANidine HCL [Zanaflex] 2 mg PO QID 06/15/17 12/05/18 History Scopolamine 1.5MG/72Hr Patch 1 patch TRANSDERM Q72H 07/07/17 12/05/18 History [TransDerm Scop] Lisinopril [Zestril] 20 mg PO DAILY #30 tab 12/19/17 12/05/18 Rx Metoprolol Tartrate [Lopressor] 25 mg PO DAILY 01/09/18 12/05/18 History metFORMIN HCL [Glucophage] 500 mg PO BID #60 tab 02/10/18 12/05/18 Rx Famotidine [Pepcid] 20 mg PO BID #20 tablet 02/11/18 12/05/18 Rx Acetaminophen-Codeine 300-30mg 1 tab PO TID PRN 12/05/18 12/05/18 History [Tylenol w/codeine #3] Glatiramer Acetate [Copaxone] 40 mg SQ MOWEFR 12/05/18 12/05/18 History Levothyroxine Sodium [Synthroid] 112 mcg PO DAILY 12/05/18 12/05/18 History SUMAtriptan SUCCINATE [Sumatriptan 6 mg SQ DAILY PRN 12/05/18 12/05/18 History Succinate] Topiramate [Topamax] 50 mg PO BID PRN 12/05/18 12/05/18 History rOPINIRole HCL [Requip] 2 mg PO TID 12/05/18 12/05/18 History Allergies Allergy/AdvReac Type Severity Reaction Status Date / Time adhesive Allergy Severe Rash/Hives Verified 12/05/18 16:27 adhesive tape Allergy Severe Rash/Hives Verified 12/05/18 16:27 fentanyl Allergy Severe Rash/Hives Verified 12/05/18 16:27 latex Allergy Severe Rash/Hives Verified 12/05/18 16:27 Physical Exam Vitals: Vital Signs Temp Pulse Pulse Resp BP BP Pulse Ox 12/06/18 13:49 98.6 F 69 16 102/68 97 12/06/18 04:30 98.6 F 90 20 152/77 97 12/05/18 20:10 98.8 F 83 20 159/95 95 12/05/18 18:45 97.7 F 82 15 130/81 98 Intake and Output 12/06/18 12/06/18 12/06/18 06:59 14:59 22:59 Intake Total 100 540 Balance 100 540 Intake: Oral 100 540 Other: # Voids 1 5 Results CBC & Chem 7: 12/05/18 16:30 12/05/18 16:30 Labs: Abnormal Lab Results - Last 24 Hours (Table) 12/05/18 12/06/18 12/06/18 Range/Units 20:19 07:10 11:45 POC Glucose (mg/dL) 152 H 143 H 153 H (75-99) mg/dL 12/06/18 Range/Units 16:38 POC Glucose (mg/dL) 144 H (75-99) mg/dL PQRS Measure Charge Sheet PQRS Narrative: Smoking Status Never smoker Blood Pressure [Right Arm] 102/68 Blood Pressure 130/81 Pain Intensity [Head] 0 Pain Intensity 3 Pain Scale Used Numeric (1 - 10) Scale Used Numeric (1 - 10) Home Medications: Ambulatory Orders Albuterol Sulfate [Proair Hfa] See Taper INHALATION RT-Q6H PRN 09/26/15 Atorvastatin [Lipitor] 10 mg PO DAILY 09/26/15 Montelukast [Singulair] 10 mg PO DAILY #30 tab 06/23/16 DULoxetine HCL [Cymbalta] 60 mg PO QAM 01/10/17 Butalb/Acetaminophen/Caffeine [Esgic 50-325-40 Capsule] 1 cap PO AC-TID PRN 01/16/17 Ipratropium-Albuterol Nebulize [Duoneb 0.5 mg-3 mg/3 ml Soln] 3 ml INHALATION RT-QID PRN 01/16/17 INSULIN LISPRO (HumaLOG) [humaLOG] See Protocol SQ ACHS PRN 01/19/17 Cholecalciferol [Vitamin D3 (25 Mcg = 1000 Iu)] 1,000 unit PO MOWE 03/03/17 Baclofen [Lioresal] 20 mg PO QID 04/26/17 tiZANidine HCL [Zanaflex] 2 mg PO QID 06/15/17 Scopolamine 1.5MG/72Hr Patch [TransDerm Scop] 1 patch TRANSDERM Q72H 07/07/17 Lisinopril [Zestril] 20 mg PO DAILY #30 tab 12/19/17 Metoprolol Tartrate [Lopressor] 25 mg PO DAILY 01/09/18 metFORMIN HCL [Glucophage] 500 mg PO BID #60 tab 02/10/18 Famotidine [Pepcid] 20 mg PO BID #20 tablet 02/11/18 Acetaminophen-Codeine 300-30mg [Tylenol w/codeine #3] 1 tab PO TID PRN 12/05/18 Glatiramer Acetate [Copaxone] 40 mg SQ MOWEFR 12/05/18 Levothyroxine Sodium [Synthroid] 112 mcg PO DAILY 12/05/18 SUMAtriptan SUCCINATE [Sumatriptan Succinate] 6 mg SQ DAILY PRN 12/05/18 Topiramate [Topamax] 50 mg PO BID PRN 12/05/18 rOPINIRole HCL [Requip] 2 mg PO TID 12/05/18
--- NOTE | 2018-12-06 17:09 | P.PCN ---
Date of Procedure: 12/06/18 Procedure(s) Performed: Pre-operative diagnosis: bilateral occipital neuralgia Post Operative Diagnosis same Procedure: Bilateral occipital nerve blocks ANESTHESIA: none EBL: Minimal PROCEDURE INDICATION: The patient with neck pain and headache secondary to occipital neuralgia unresponsive to conservative treatments. PROCEDURE DESCRIPTION / TECHNIQUE: The patient was seen and identified. Risks, benefits, complications, and alternatives were discussed with the patient, the patient agreed to proceed with the procedure and signed the consent. Procedure was performed at bedside, bedside nurse was present throughout the procedure. A time out was completed. The patient was placed in the seated position on the bed. The bilateral occiptial area were prepped with alcohol swab. The bilateral occiptal ridge was palpated and was then accessed with a 25 G needle. Then after negative aspiration, 3.5 ml of the block solution containing 3 ml of ropivacaine 0.5% and Kenalog 20 mg was injected at each side. A total of 40 mg of Kenalog was used. Needle was withdrawn intact. Patient tolerated procedure well. No acute complications.
--- NOTE | 2018-12-06 18:15 | P.HPIM ---
History of Present Illness H&P Date: 12/06/18 Chief Complaint: Headache History of presenting complaint: This is a 48-year-old patient of Dr.L Serrano. Chronic stable medical conditions include asthma, diabetes, hypertension, hypothyroid. Patient has a diagnosis of multiple sclerosis. Does follow with Dr. No. Patient also's optic neuritis. At a baseline vision is sometimes fuzzy. Also does subtle left-sided weakness does use a walker. Patient is maintained on Copaxone. Patient presents with 4 days of headaches. She's had occipital no block and Dr. Brown office by his PA. She states she does not going there.. She is also the injection here in the hospital. She states that this is a migraine flareup. When asked to describe for the headache is. He states sometimes on the left side some blood on the right side now primarily localized to the back of the head. She is also tender at the nuchal line. No nausea vomiting. No change in vision. No neck stiffness. No fever. Patient able to keep some food down. Review of systems: GEN.: Tired EYES: As above HEENT: None NECK: None RESPIRATORY: None CARDIOVASCULAR: None GASTROINTESTINAL: Diarrhea at home for 4 days prior to coming in now settled down.] GENITOURINARY: None MUSCULOSKELETAL: Some pain in the joints LYMPHATICS: None HEMATOLOGICAL: None PSYCHIATRY: Anxious NEUROLOGICAL: As above Past medical history: To include Asthma, diabetes, hypertension, hypothyroid, multiple sclerosis, occipital neuralgia Social history: Doesn't smoke or drink alcohol. . 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 Physical examination: VITAL SIGNS: 98.8, 99, 18, 1:30 was 81, 98% on room air GENERAL: BMI 38, laying in bed, not in distress. EYES: Pupils equal. Conjunctiva normal. HEENT: External appearance of nose and ears normal, oral cavity grossly normal, significant tenderness at the nuchal line. NECK: JVD not raised; masses not palpable. HEART: First and second heart sounds are normal; no edema. LUNGS: Respiratory rate normal; clear to auscultation. ABDOMEN: Soft, nontender, liver spleen not palpable, no masses palpable. PSYCH: Alert and oriented x3; mood and affect anxiousl. NEUROLOGICAL: Cranial nerves grossly intact; no facial asymmetry, some weakness on the left side. LYMPHATICS: No lymph nodes palpable in the axilla and neck Assessment: -Intractable headache for 4 days. Patient is very tender at the nuchal line. Patient's a prior steroid injections with relief. We'll consult the pain management team and the hospital for the same. Otherwise patient looks rela tively stable. -Intermittent asthma -Diabetes mellitus type 2 on oral hypoglycemic -Essential hypertension -Hypothyroid -Chronic multiple sclerosis with chronic left-sided weakness and optic neuritis Plan: Neurology was consulted. Pain management was consulted for steroid injection the nuchal line. Home medications were resumed. Care was discussed in detail with the patient. Past Medical History Past Medical History: Asthma, Diabetes Mellitus, Hypertension, Musculoskeletal Disorder, Neurologic Disorder, Thyroid Disorder Additional Past Medical History / Comment(s): MS, back pain, DEGENERATIVE DISC DISEASE, History of Any Multi-Drug Resistant Organisms: None Reported Date of last positivie culture/infection: 2018 MDRO Source:: stool Past Surgical History: Bladder Surgery, Hernia Repair, Hysterectomy, Orthopedic Surgery, Tubal Ligation Additional Past Surgical History / Comment(s): rhinoplasty, bladder suspension, breast sx, morphine pump , RT KNEE SCOPE, TUMMY TUCK, SCS DEVICE INSERTED AND REMOVED-DOES NOT HAVE T-11 IN SPINE. Past Anesthesia/Blood Transfusion Reactions: Motion Sickness, Postoperative Nausea & Vomiting (PONV) Past Psychological History: No Psychological Hx Reported Additional Psychological History / Comment(s): Pt resides with her spouse and a 16 yr old mindy. She has a glucometer. She is independent. Smoking Status: Never smoker Past Alcohol Use History: None Reported Past Drug Use History: None Reported - Past Family History Father History Unknown: Yes Family Medical History: Hypertension Additional Family Medical History / Comment(s): Pt left home as a teen and does not know parents PMH Mother History Unknown: Yes Family Medical History: No Reported History, Unable to Obtain Additional Family Medical History / Comment(s): NO FAMILY HISTORY Medications and Allergies Home Medications Medication Instructions Recorded Confirmed Type Albuterol Sulfate [Proair Hfa] See Taper INHALATION RT-Q6H PRN 09/26/15 12/05/18 History Atorvastatin [Lipitor] 10 mg PO DAILY 09/26/15 12/05/18 History Montelukast [Singulair] 10 mg PO DAILY #30 tab 06/23/16 12/05/18 Rx DULoxetine HCL [Cymbalta] 60 mg PO QAM 01/10/17 12/05/18 History Butalb/Acetaminophen/Caffeine 1 cap PO AC-TID PRN 01/16/17 12/05/18 History [Esgic 50-325-40 Capsule] Ipratropium-Albuterol Nebulize 3 ml INHALATION RT-QID PRN 01/16/17 12/05/18 History [Duoneb 0.5 mg-3 mg/3 ml Soln] INSULIN LISPRO (HumaLOG) [humaLOG] See Protocol SQ ACHS PRN 01/19/17 12/05/18 History Cholecalciferol [Vitamin D3 (25 1,000 unit PO MOWE 03/03/17 12/05/18 History Mcg = 1000 Iu)] Baclofen [Lioresal] 20 mg PO QID 04/26/17 12/05/18 History tiZANidine HCL [Zanaflex] 2 mg PO QID 06/15/17 12/05/18 History Scopolamine 1.5MG/72Hr Patch 1 patch TRANSDERM Q72H 07/07/17 12/05/18 History [TransDerm Scop] Lisinopril [Zestril] 20 mg PO DAILY #30 tab 12/19/17 12/05/18 Rx Metoprolol Tartrate [Lopressor] 25 mg PO DAILY 01/09/18 12/05/18 History metFORMIN HCL [Glucophage] 500 mg PO BID #60 tab 02/10/18 12/05/18 Rx Famotidine [Pepcid] 20 mg PO BID #20 tablet 02/11/18 12/05/18 Rx Acetaminophen-Codeine 300-30mg 1 tab PO TID PRN 12/05/18 12/05/18 History [Tylenol w/codeine #3] Glatiramer Acetate [Copaxone] 40 mg SQ MOWEFR 12/05/18 12/05/18 History Levothyroxine Sodium [Synthroid] 112 mcg PO DAILY 12/05/18 12/05/18 History SUMAtriptan SUCCINATE [Sumatriptan 6 mg SQ DAILY PRN 12/05/18 12/05/18 History Succinate] Topiramate [Topamax] 50 mg PO BID PRN 12/05/18 12/05/18 History rOPINIRole HCL [Requip] 2 mg PO TID 12/05/18 12/05/18 History Allergies Allergy/AdvReac Type Severity Reaction Status Date / Time adhesive Allergy Severe Rash/Hives Verified 12/05/18 16:27 adhesive tape Allergy Severe Rash/Hives Verified 12/05/18 16:27 fentanyl Allergy Severe Rash/Hives Verified 12/05/18 16:27 latex Allergy Severe Rash/Hives Verified 12/05/18 16:27 Physical Exam Vitals: Vital Signs Temp Pulse Pulse Resp BP BP Pulse Ox 12/06/18 04:30 98.6 F 90 20 152/77 97 12/05/18 20:10 98.8 F 83 20 159/95 95 12/05/18 18:45 97.7 F 82 15 130/81 98 12/05/18 15:51 98.8 F 99 18 161/123 96 Intake and Output 12/05/18 12/06/18 12/06/18 22:59 06:59 14:59 Intake Total 200 100 Balance 200 100 Intake: Oral 200 100 Other: # Voids 1 Weight 113.398 kg Results CBC & Chem 7: 12/05/18 16:30 12/05/18 16:30 Labs: Abnormal Lab Results - Last 24 Hours (Table) 12/05/18 12/05/18 12/05/18 Range/Units 16:30 16:30 20:19 Glucose 149 H (74-99) mg/dL POC Glucose (mg/dL) 152 H (75-99) mg/dL Urine Appearance Cloudy H (Clear) Urine Protein Trace H (Negative) Ur Leukocyte Esterase Small H (Negative) Ur Squamous Epith Cells 6 H (0-4) /hpf Urine Bacteria Rare H (None) /hpf Urine Mucus Rare H (None) /hpf 12/06/18 Range/Units 07:10 Glucose (74-99) mg/dL POC Glucose (mg/dL) 143 H (75-99) mg/dL Urine Appearance (Clear) Urine Protein (Negative) Ur Leukocyte Esterase (Negative) Ur Squamous Epith Cells (0-4) /hpf Urine Bacteria (None) /hpf Urine Mucus (None) /hpf Thrombosis Risk Factor Assmnt - Choose All That Apply Any of the Below Risk Factors Present?: Yes Each Factor Represents 1 point: Age 41-60 years, Obesity (BMI >25) Thrombosis Risk Factor Assessment Total Risk Factor Score: 2 Thrombosis Risk Factor Assessment Level: Low Risk
--- NOTE | 2018-12-08 22:33 | P.DS ---
Providers Date of admission: 12/05/18 18:55 Expected date of discharge: 12/06/18 Attending physician: José Ferreira Consults: 12/05/18 18:55 Consult Physician Urgent Consulting Provider: Pilar Kincaid Consult Reason/Comments: intractable cephalgia Do you want consulting provider notified?: Yes Primary care physician: Viola Serrano [facility] Course: Hospital course: This is a 48-year-old patient of Dr.L Serrano. Chronic stable medical conditions include asthma, diabetes, hypertension, hypothyroid. Patient has a diagnosis of multiple sclerosis. Does follow with Dr. No. Patient also's optic neuritis. At a baseline vision is sometimes fuzzy. Also does subtle left-sided weakness does use a walker. Patient is maintained on Copaxone. Patient presents with 4 days of headaches. She's had occipital no block and Dr. Brown office by his PA. She states she does not going there.. She is also the injection here in the hospital. She states that this is a migraine flareup. When asked to describe for the headache is. He states sometimes on the left side some blood on the right side now primarily localized to the back of the head. She is also tender at the nuchal line. No nausea vomiting. No change in vision. No neck stiffness. No fever. Patient able to keep some food down. Patient is felt to have headaches from occipital neuralgia. Seen by pain ma nagement team. Steroid injection was carried out. Doing much better by the evening. Consultation: Dr. Kincaid from neurology Dr. Johnston from pain management Physical examination: VITAL SIGNS: 98.6, 69, 16, 1 or 2/68, 97% room air GENERAL: BMI 38, laying in bed, not in distress. EYES: Pupils equal. Conjunctiva normal. HEENT: External appearance of nose and ears normal, oral cavity grossly normal, significant tenderness at the nuchal line. NECK: JVD not raised; masses not palpable. HEART: First and second heart sounds are normal; no edema. LUNGS: Respiratory rate normal; clear to auscultation. ABDOMEN: Soft, nontender, liver spleen not palpable, no masses palpable. PSYCH: Alert and oriented x3; mood and affect anxiousl. NEUROLOGICAL: Cranial nerves grossly intact; no facial asymmetry, some weakness on the left side. LYMPHATICS: No lymph nodes palpable in the axilla and neck Discharge diagnosis: -Acute flareup of occipital neuralgia -Intermittent asthma -Diabetes mellitus type 2 on oral hypoglycemic -Essential hypertension -Hypothyroid -Chronic multiple sclerosis with chronic left-sided weakness and optic neuritis Disposition: Home Patient Condition at Discharge: Stable Plan - Discharge Summary New Discharge Prescriptions: New Magnesium Oxide [Mag-Ox] 400 mg PO BID #30 tab Continue Atorvastatin [Lipitor] 10 mg PO DAILY Albuterol Sulfate [Proair Hfa] See Taper INHALATION RT-Q6H PRN PRN Reason: Shortness Of Breath Montelukast [Singulair] 10 mg PO DAILY #30 tab DULoxetine HCL [Cymbalta] 60 mg PO QAM Ipratropium-Albuterol Nebulize [Duoneb 0.5 mg-3 mg/3 ml Soln] 3 ml INHALATION RT-QID PRN PRN Reason: Shortness Of Breath Butalb/Acetaminophen/Caffeine [Esgic 50-325-40 Capsule] 1 cap PO AC-TID PRN PRN Reason: Headache INSULIN LISPRO (HumaLOG) [humaLOG] See Protocol SQ ACHS PRN PRN Reason: Blood Sugar - High Cholecalciferol [Vitamin D3 (25 Mcg = 1000 Iu)] 1,000 unit PO MOWE Baclofen [Lioresal] 20 mg PO QID tiZANidine HCL [Zanaflex] 2 mg PO QID Scopolamine 1.5MG/72Hr Patch [TransDerm Scop] 1 patch TRANSDERM Q72H Lisinopril [Zestril] 20 mg PO DAILY #30 tab Metoprolol Tartrate [Lopressor] 25 mg PO DAILY metFORMIN HCL [Glucophage] 500 mg PO BID #60 tab Famotidine [Pepcid] 20 mg PO BID #20 tablet Topiramate [Topamax] 50 mg PO BID PRN PRN Reason: Migraine Headache Glatiramer Acetate [Copaxone] 40 mg SQ MOWEFR Acetaminophen-Codeine 300-30mg [Tylenol w/codeine #3] 1 tab PO TID PRN PRN Reason: Pain rOPINIRole HCL [Requip] 2 mg PO TID Levothyroxine Sodium [Synthroid] 112 mcg PO DAILY SUMAtriptan SUCCINATE [Sumatriptan Succinate] 6 mg SQ DAILY PRN PRN Reason: Migraine Headache Discharge Medication List Albuterol Sulfate [Proair Hfa] See Taper INHALATION RT-Q6H PRN 09/26/15 [History] Atorvastatin [Lipitor] 10 mg PO DAILY 09/26/15 [History] Montelukast [Singulair] 10 mg PO DAILY #30 tab 06/23/16 [Rx] DULoxetine HCL [Cymbalta] 60 mg PO QAM 01/10/17 [History] Butalb/Acetaminophen/Caffeine [Esgic 50-325-40 Capsule] 1 cap PO AC-TID PRN 1 [History] Ipratropium-Albuterol Nebulize [Duoneb 0.5 mg-3 mg/3 ml Soln] 3 ml INHALATION RT-QID PRN 01/16/17 [History] INSULIN LISPRO (HumaLOG) [humaLOG] See Protocol SQ ACHS PRN 01/19/17 [History] Cholecalciferol [Vitamin D3 (25 Mcg = 1000 Iu)] 1,000 unit PO MOWE 03/03/17 [History] Baclofen [Lioresal] 20 mg PO QID 04/26/17 [History] tiZANidine HCL [Zanaflex] 2 mg PO QID 06/15/17 [History] Scopolamine 1.5MG/72Hr Patch [TransDerm Scop] 1 patch TRANSDERM Q72H 07/07/17 [History] Lisinopril [Zestril] 20 mg PO DAILY #30 tab 12/19/17 [Rx] Metoprolol Tartrate [Lopressor] 25 mg PO DAILY 01/09/18 [History] metFORMIN HCL [Glucophage] 500 mg PO BID #60 tab 02/10/18 [Rx] Famotidine [Pepcid] 20 mg PO BID #20 tablet 02/11/18 [Rx] Acetaminophen-Codeine 300-30mg [Tylenol w/codeine #3] 1 tab PO TID PRN 12/05/18 [History] Glatiramer Acetate [Copaxone] 40 mg SQ MOWEFR 12/05/18 [History] Levothyroxine Sodium [Synthroid] 112 mcg PO DAILY 12/05/18 [History] SUMAtriptan SUCCINATE [Sumatriptan Succinate] 6 mg SQ DAILY PRN 12/05/18 [History] Topiramate [Topamax] 50 mg PO BID PRN 12/05/18 [History] rOPINIRole HCL [Requip] 2 mg PO TID 12/05/18 [History] Magnesium Oxide [Mag-Ox] 400 mg PO BID #30 tab 12/06/18 [Rx] Follow up Appointment(s)/Referral(s): Viola Serrano MD [Primary Care Provider] - 1-2 days (office closed. please call to schedule appt) Maura No MD [Family Provider] - 1-2 Days (office closed. please call to schedule appt. ) Patient Instructions/Handouts: Migraine Headache (ED) Discharge Disposition: HOME SELF-CARE
== END 2018-12-06 18:49 | disposition home or self-care (01) ==
LOC: EC 15:51 → 4SSUR 18:55 → 4MS4W 19:20
PROVIDERS: ADMIT Hospitalist; ATTEND Hospitalist
DX: M54.81 Occipital neuralgia (principal); J45.20 Mild intermittent asthma, uncomplicated; E11.9 Type 2 diabetes mellitus without complications; I10 Essential (primary) hypertension; E03.9 Hypothyroidism, unspecified; G35 Multiple sclerosis; H46.9 Unspecified optic neuritis; R19.7 Diarrhea, unspecified; M54.9 Dorsalgia, unspecified; Z79.899 Other long term (current) drug therapy; Z79.4 Long term (current) use of insulin; Z79.890 Hormone replacement therapy; Z79.891 Long term (current) use of opiate analgesic; Z88.5 Allergy status to narcotic agent; Z91.048 Other nonmedicinal substance allergy status; Z91.040 Latex allergy status; Z16.24 Resistance to multiple antibiotics; E66.9 Obesity, unspecified; Z68.38 Body mass index [BMI] 38.0-38.9, adult; Z80.49 Family history of malignant neoplasm of other genital organs; Z84.89 Family history of other specified conditions; Z82.49 Family history of ischemic heart disease and other diseases of the circulatory system
CPT/HCPCS: 64405; 96376 ×2; 96365; 96375; 99284; 36415; 80053; 84443; 85025; 81001; 81025; G0378 ×2; J1200 ×2; J1100; J3301; J2405 ×2; J1885 ×2; J3475

== ENCOUNTER 2019-01-15 17:40 | Inpatient (IN) | payer BC, MEDICARE ==
[2019-01-15] MEDS ORDERED: MORPHINE SULFATE 4 MG/ML SYRINGE IVP STA (19:10)
[2019-01-15] MEDS ORDERED: ONDANSETRON 4 MG/2 ML VIAL IVP STA (19:10)
[2019-01-15] MEDS ORDERED: SODIUM CHLORIDE 0.9% 1,000 ML IV STA ×2 (19:10)
[2019-01-15] MEDS ORDERED: MORPHINE SULFATE 4 MG/ML SYRINGE IVP PRN (19:10)
--- NOTE | 2019-01-15 19:14 | ED ---
Weakness HPI - General Chief complaint: Weakness Stated complaint: MS attack Time Seen by Provider: 01/15/19 18:46 Source: patient, RN notes reviewed, old records reviewed Mode of arrival: ambulatory Limitations: no limitations - History of Present Illness Initial comments: This is a 48-year-old female the ER for evaluation patient does say for evaluati on regards to weakness severe pain and mouth pain and hand pain and foot pain generalized body pain and severe weakness secondary to MS exacerbation 7 by neurologist for evaluation regarding an MS exacerbation unable to give steroids at home and coming in for further management. Patient has had symptoms before with multiple hospitalizations. No other significant symptoms no vision changes no other complaints MD Complaint: generalized weakness, lack of energy -: days(s) Location: generalized Severity: moderate Severity scale (1-10): 4 Quality: sharp Consistency: constant Improves with: none Worsens with: none Context: recent illness, history of similar Associated Symptoms: fever/chills, nausea/vomiting - Related Data Home Medications Medication Instructions Recorded Confirmed Albuterol Sulfate [Proair Hfa] 2 puff INHALATION RT-Q6H PRN 09/26/15 01/15/19 Atorvastatin [Lipitor] 10 mg PO DAILY 09/26/15 01/15/19 DULoxetine HCL [Cymbalta] 60 mg PO QAM 01/10/17 01/15/19 Butalb/Acetaminophen/Caffeine 1 cap PO AC-TID PRN 01/16/17 01/15/19 [Esgic 50-325-40 Capsule] Ipratropium-Albuterol Nebulize 3 ml INHALATION RT-QID PRN 01/16/17 01/15/19 [Duoneb 0.5 mg-3 mg/3 ml Soln] INSULIN LISPRO (HumaLOG) [humaLOG] See Protocol SQ ACHS PRN 01/19/17 01/15/19 Cholecalciferol [Vitamin D3 (25 1,000 unit PO MOWE 03/03/17 01/15/19 Mcg = 1000 Iu)] Baclofen [Lioresal] 20 mg PO QID 04/26/17 01/15/19 tiZANidine HCL [Zanaflex] 2 mg PO QID 06/15/17 01/15/19 Scopolamine 1.5MG/72Hr Patch 1 patch TRANSDERM Q72H 07/07/17 01/15/19 [TransDerm Scop] Metoprolol Tartrate [Lopressor] 25 mg PO DAILY 01/09/18 01/15/19 Acetaminophen-Codeine 300-30mg 1 tab PO TID PRN 12/05/18 01/15/19 [Tylenol w/codeine #3] Glatiramer Acetate [Copaxone] 40 mg SQ MOWEFR 12/05/18 01/15/19 Levothyroxine Sodium [Synthroid] 112 mcg PO DAILY 12/05/18 01/15/19 SUMAtriptan SUCCINATE [Sumatriptan 6 mg SQ DAILY PRN 12/05/18 01/15/19 Succinate] rOPINIRole HCL [Requip] 2 mg PO TID 12/05/18 01/15/19 Erenumab-Aooe [Aimovig 70 mg SQ Q30D 01/15/19 01/15/19 Autoinjector] Morphine Pump 0.1 dose SQ CONTINUOUS 01/15/19 01/15/19 valACYclovir HCL [Valtrex] 1,000 mg PO BID 01/15/19 01/15/19 Previous Rx's Medication Instructions Recorded Montelukast [Singulair] 10 mg PO DAILY #30 tab 06/23/16 Lisinopril [Zestril] 20 mg PO DAILY #30 tab 12/19/17 metFORMIN HCL [Glucophage] 500 mg PO BID #60 tab 02/10/18 Famotidine [Pepcid] 20 mg PO BID #20 tablet 02/11/18 Allergies Allergy/AdvReac Type Severity Reaction Status Date / Time adhesive Allergy Severe Rash/Hives Verified 01/15/19 19:14 adhesive tape Allergy Severe Rash/Hives Verified 01/15/19 19:14 fentanyl Allergy Severe Rash/Hives Verified 01/15/19 19:14 latex Allergy Severe Rash/Hives Verified 01/15/19 19:14 metoclopramide [From Reglan] Allergy Unknown Verified 01/15/19 19:14 Review of Systems ROS Statement: Those systems with pertinent positive or pertinent negative responses have been documented in the HPI. ROS Other: All systems not noted in ROS Statement are negative. Past Medical History Past Medical History: Asthma, Diabetes Mellitus, Hypertension, Musculoskeletal Disorder, Neurologic Disorder, Thyroid Disorder Additional Past Medical History / Comment(s): MS, back pain, DEGENERATIVE DISC DISEASE, History of Any Multi-Drug Resistant Organisms: None Reported Date of last positivie culture/infection: 2018 MDRO Source:: stool Past Surgical History: Bladder Surgery, Hernia Repair, Hysterectomy, Orthopedic Surgery, Tubal Ligation Additional Past Surgical History / Comment(s): rhinoplasty, bladder suspension, breast sx, morphine pump , RT KNEE SCOPE, TUMMY TUCK, SCS DEVICE INSERTED AND REMOVED-DOES NOT HAVE T-11 IN SPINE. Past Anesthesia/Blood Transfusion Reactions: Motion Sickness, Postoperative Nausea & Vomiting (PONV) Past Psychological History: No Psychological Hx Reported Smoking Status: Never smoker Past Alcohol Use History: None Reported Past Drug Use History: None Reported - Past Family History Father History Unknown: Yes Family Medical History: Hypertension Additional Family Medical History / Comment(s): Pt left home as a teen and does not know parents PMH Mother History Unknown: Yes Family Medical History: No Reported History, Unable to Obtain Additional Family Medical History / Comment(s): NO FAMILY HISTORY General Exam Limitations: no limitations General appearance: alert, in no apparent distress Head exam: Present: atraumatic, normocephalic, normal inspection Eye exam: Present: normal appearance, EOMI. Absent: scleral icterus, conjunctival injection, periorbital swelling ENT exam: Present: normal exam, mucous membranes moist Neck exam: Present: normal inspection. Absent: tenderness, meningismus, lymphadenopathy Respiratory exam: Present: normal lung sounds bilaterally. Absent: respiratory distress, wheezes, rales, rhonchi, stridor Cardiovascular Exam: Present: normal rhythm, tachycardia, normal heart sounds. Absent: systolic murmur, diastolic murmur, rubs, gallop, clicks GI/Abdominal exam: Present: soft, normal bowel sounds. Absent: distended, tenderness, guarding, rebound, rigid Extremities exam: Present: normal inspection, full ROM, normal capillary refill. Absent: tenderness, pedal edema, joint swelling, calf tenderness Back exam: Present: normal inspection Neurological exam: Present: alert, oriented X3, CN II-XII intact Psychiatric exam: Present: normal affect, normal mood Skin exam: Present: warm, dry, intact, normal color, other (rash to hand and feet, leukoplasia). Absent: rash Course Vital Signs 01/15/19 17:54 Temperature 99 F Pulse Rate 118 H Respiratory 20 Rate Blood Pressure 154/97 O2 Sat by Pulse 100 Oximetry - Reevaluation(s) Reevaluation #1: 01/15/19 19:27 Medical records reviewed Reevaluation #2: 01/15/19 19:27 Patient has mild improvement in pain control Reevaluation #3: 01/15/19 19:27 started on steroids 1 g a day - Consultations Consultation #1: Will admit for Dr. Aguirre, spoke with Dr. Aguirre who is agreeable for admission and neurology consult Medical Decision Making - Medical Decision Making 48 female positive for MS exacerbation will admit for persistent steroids pain control as needed Disposition Clinical Impression: Dehydration, Chronic pain, Exacerbation of multiple sclerosis Disposition: ADMITTED IP TO THIS [facility] Condition: Fair Is patient prescribed a controlled substance at d/c from ED?: No Referrals: Viola Serrano MD [Primary Care Provider] - 1-2 days
[2019-01-15 20:25] LABS: Appearance,Urine Clear (Clear); Bilirubin,Urine Negative (Negative); Blood,Urine Negative (Negative); Color,Urine Yellow; Glucose,Urine (UA) Negative (Negative); Ketones,Urine Negative (Negative); Leukocyte Esterase,Urine Negative (Negative); Nitrite,Urine Negative (Negative); Protein,Urine Negative (Negative); Specific Gravity,Urine 1.012 (1.001-1.035); Urobilinogen,Urine <2.0 mg/dL (<2.0)
[2019-01-15] MEDS: diphenhydrAMINE 50 MG/ML 1 ML VIAL IVP PRN (20:49)
[2019-01-15 21:22] LABS: ALT 13 U/L (9-52); AST 25 U/L (14-36); African American GFR (CKD) >90 (>60 ml/min/1.73 sqM); Alkaline Phosphatase 56 U/L (38-126); Anion Gap 10 mmol/L; Blood Urea Nitrogen 17 mg/dL (7-17); Calcium 9.2 mg/dL (8.4-10.2); Carbon Dioxide 23 mmol/L (22-30); Chloride 107 mmol/L (98-107); Creatine Kinase 60 U/L (30-135); Glucose 96 mg/dL (74-99); Magnesium 1.9 mg/dL (1.6-2.3); Sodium 140 mmol/L (137-145); Total Bilirubin 0.6 mg/dL (0.2-1.3); Total Protein 6.9 g/dL (6.3-8.2)
[2019-01-15 21:27] LABS: HGB 14.1 gm/dL (11.4-16.0); MCH 29.8 pg (25.0-35.0); MCHC 33.6 g/dL (31.0-37.0); MCV 88.6 fL (80.0-100.0); Platelet Count 341 k/uL (150-450); RBC 4.75 m/uL (3.80-5.40); RDW 12.8 % (11.5-15.5); WBC 9.2 k/uL (3.8-10.6)
[2019-01-15 21:34] LABS: Potassium 4.7 mmol/L (3.5-5.1)
[2019-01-15] MEDS ORDERED: DEXAMETHASONE SOD PHOSPHATE 10 MG/ML 1 ML VIAL IM STA (22:20)
[2019-01-15 22:24] LABS: Eosinophils # (M) 0.28 k/uL (0-0.7); Lymphocytes # (M) 1.47 k/uL (1.0-4.8); Monocytes # (M) 0.74 k/uL (0-1.0); Neutrophils % (M) 73 %; Nucleated Red Blood Cells 0 /100 WBC (0-0); Total Cells Counted 100
[2019-01-16] MEDS ORDERED: valACYclovir HCL 1,000 MG TABLET PO ONE
[2019-01-16] MEDS ORDERED: MORPHINE SULFATE 4 MG/ML SYRINGE ONE ×2
[2019-01-16] MEDS ORDERED: diphenhydrAMINE 50 MG/ML 1 ML VIAL ONE
[2019-01-16] MEDS ORDERED: INSULIN ASPART (NovoLOG) 100 UNIT/ML VIAL SQ ONE
[2019-01-16] MEDS ORDERED: methylPREDNISolone SOD SUCCI 125 MG/2 ML VIAL ONE ×2
[2019-01-16] MEDS ORDERED: BACLOFEN 10 MG TAB ONE
[2019-01-16] MEDS ORDERED: ONDANSETRON 4 MG/2 ML VIAL ONE ×2 (03:53)
[2019-01-16 07:18] LABS: Glucose,Whole Blood 211 mg/dL (75-99)
[2019-01-16 07:18] LABS: Glucose,Whole Blood 242 mg/dL (75-99)
[2019-01-16 07:19] LABS: Glucose,Whole Blood 199 mg/dL (75-99)
[2019-01-16] MEDS: diphenhydrAMINE 50 MG/ML 1 ML VIAL IVP PRN (08:30)
[2019-01-16] MEDS: ENOXAPARIN 40 MG/0.4 ML SYRINGE SQ SCH (08:30)
[2019-01-16] MEDS: BACLOFEN 10 MG TAB PO SCH ×4 (08:30→21:32)
[2019-01-16] MEDS: INSULIN ASPART (NovoLOG) 100 UNIT/ML VIAL SQ SCH ×4 (08:31→21:33)
[2019-01-16] MEDS: valACYclovir HCL 1,000 MG TABLET PO SCH ×2 (10:45→21:32)
[2019-01-16] MEDS: ONDANSETRON 4 MG/2 ML VIAL IVP PRN (10:50)
[2019-01-16 11:35] LABS: Glucose,Whole Blood 227 mg/dL (75-99)
[2019-01-16] MEDS ORDERED: diphenhydrAMINE 25 MG CAP PO PRN (13:11)
[2019-01-16] MEDS ORDERED: SUMAtriptan SUCCINATE 6 MG/0.5 ML VIAL SQ PRN (13:36)
[2019-01-16] MEDS ORDERED: ALBUTEROL INHALER 60 PUFF/8 GM INHALER INHALATION PRN (13:36)
[2019-01-16] MEDS ORDERED: IPRATROPIUM-ALBUTEROL 3 ML NEB INHALATION PRN (13:36)
[2019-01-16] MEDS ORDERED: BUTALB/APAP/CAFF 50-325-40MG TAB PO PRN (13:36)
[2019-01-16] MEDS ORDERED: SCOPOLAMINE 1.5MG/72HR PATCH TRANSDERM SCH (13:45)
[2019-01-16] MEDS ORDERED: METOPROLOL TARTRATE 25 MG TAB PO SCH (13:45)
[2019-01-16] MEDS ORDERED: ERENUMAB AOOE 70 MG SQ SCH (13:45)
--- NOTE | 2019-01-16 14:26 | P.HPIM ---
History of Present Illness 48-year-old the female came in with complaints of tingling numbness in both legs patient was believed to have medicine and her neurologist asked her to get admitted because of which patient admitted I tried to reach the neurologist I'm unable to reach him. Neurology here was consult that. Patient has seen her neurologist yesterday. Patient has multiple hospitalizations in the past for similar complaints patient is on multiple opiate medication she is comparing of her severe tingling and numbness in both hands and legs which she believes it Neno exacerbation denied any weakness denied any visual problems. Patient is requesting IV Benadryl as she has lot of ALLERGIES although I don't see any obvious ALLERGIC reaction at this time because of which IV Benadryl will be discontinued and patient was also started on IV morphine I don't need to don't see a reason for her IV morphine patient already has a pain pump in is also on Boomer as well as Fioricet which will be continued on IV morphine will be discontinued. Patient is clearly exhibiting opiate seeking behavior. Review of Systems REVIEW OF SYSTEMS: CONSTITUTIONAL: No fever, no malaise, no fatigue. HEENT: No recent visual problems or hearing problems. Denied any sore throat. CARDIOVASCULAR: No chest pain, orthopnea, PND, no palpitations, no syncope. PULMONARY: No shortness of breath, no cough, no hemoptysis. GASTROINTESTINAL: No diarrhea, no nausea, no vomiting, no abdominal pain. NEUROLOGICAL: As mentioned in HPI HEMATOLOGICAL: Denies any bleeding or petechiae. GENITOURINARY: Denies any burning micturition, frequency, or urgency. MUSCULOSKELETAL/RHEUMATOLOGICAL: Denies any joint pain, swelling, or any muscle pain. ENDOCRINE: Denies any polyuria or polydipsia. The rest of the 14-point review of systems is negative. Past Medical History Past Medical History: Asthma, Diabetes Mellitus, Hypertension, Musculoskeletal Disorder, Neurologic Disorder, Thyroid Disorder Additional Past Medical History / Comment(s): MS, back pain, DEGENERATIVE DISC D ISEASE, optic neuritis, leukopenia (sores in mouth) History of Any Multi-Drug Resistant Organisms: C-DIFF Date of last positivie culture/infection: 2018 MDRO Source:: stool Past Surgical History: Bladder Surgery, Hernia Repair, Hysterectomy, Orthopedic Surgery, Tubal Ligation Additional Past Surgical History / Comment(s): rhinoplasty, bladder suspension, breast sx, morphine pump , RT KNEE SCOPE, TUMMY TUCK, SCS DEVICE INSERTED AND REMOVED-DOES NOT HAVE T-11 IN SPINE. Past Anesthesia/Blood Transfusion Reactions: Motion Sickness, Postoperative Nausea & Vomiting (PONV) Past Psychological History: No Psychological Hx Reported Additional Psychological History / Comment(s): Pt resides with her spouse and a 16 yr old mindy. She has a glucometer. She is independent. Smoking Status: Never smoker Past Alcohol Use History: None Reported Past Drug Use History: None Reported - Past Family History Father History Unknown: Yes Family Medical History: Hypertension Additional Family Medical History / Comment(s): Pt left home as a teen and does not know parents PMH Mother History Unknown: Yes Family Medical History: No Reported History, Unable to Obtain Additional Family Medical History / Comment(s): NO FAMILY HISTORY Medications and Allergies Home Medications Medication Instructions Recorded Confirmed Type Albuterol Sulfate [Proair Hfa] 2 puff INHALATION RT-Q6H PRN 09/26/15 01/15/19 History Atorvastatin [Lipitor] 10 mg PO DAILY 09/26/15 01/15/19 History Montelukast [Singulair] 10 mg PO DAILY #30 tab 06/23/16 01/15/19 Rx DULoxetine HCL [Cymbalta] 60 mg PO QAM 01/10/17 01/15/19 History Butalb/Acetaminophen/Caffeine 1 cap PO AC-TID PRN 01/16/17 01/15/19 History [Esgic 50-325-40 Capsule] Ipratropium-Albuterol Nebulize 3 ml INHALATION RT-QID PRN 01/16/17 01/15/19 History [Duoneb 0.5 mg-3 mg/3 ml Soln] INSULIN LISPRO (HumaLOG) [humaLOG] See Protocol SQ ACHS PRN 01/19/17 01/15/19 History Cholecalciferol [Vitamin D3 (25 1,000 unit PO MOWE 03/03/17 01/15/19 History Mcg = 1000 Iu)] Baclofen [Lioresal] 20 mg PO QID 04/26/17 01/15/19 History tiZANidine HCL [Zanaflex] 2 mg PO QID 06/15/17 01/15/19 History Scopolamine 1.5MG/72Hr Patch 1 patch TRANSDERM Q72H 07/07/17 01/15/19 History [TransDerm Scop] Lisinopril [Zestril] 20 mg PO DAILY #30 tab 12/19/17 01/15/19 Rx Metoprolol Tartrate [Lopressor] 25 mg PO DAILY 01/09/18 01/15/19 History metFORMIN HCL [Glucophage] 500 mg PO BID #60 tab 02/10/18 01/15/19 Rx Famotidine [Pepcid] 20 mg PO BID #20 tablet 02/11/18 01/15/19 Rx Acetaminophen-Codeine 300-30mg 1 tab PO TID PRN 12/05/18 01/15/19 History [Tylenol w/codeine #3] Glatiramer Acetate [Copaxone] 40 mg SQ MOWEFR 12/05/18 01/15/19 History Levothyroxine Sodium [Synthroid] 112 mcg PO DAILY 12/05/18 01/15/19 History SUMAtriptan SUCCINATE [Sumatriptan 6 mg SQ DAILY PRN 12/05/18 01/15/19 History Succinate] rOPINIRole HCL [Requip] 2 mg PO TID 12/05/18 01/15/19 History Erenumab-Aooe [Aimovig 70 mg SQ Q30D 01/15/19 01/15/19 History Autoinjector] Morphine Pump 0.1 dose SQ CONTINUOUS 01/15/19 01/15/19 History valACYclovir HCL [Valtrex] 1,000 mg PO BID 01/15/19 01/15/19 History Allergies Allergy/AdvReac Type Severity Reaction Status Date / Time adhesive Allergy Severe Rash/Hives Verified 01/15/19 19:14 adhesive tape Allergy Severe Rash/Hives Verified 01/15/19 19:14 fentanyl Allergy Severe Rash/Hives Verified 01/15/19 19:14 latex Allergy Severe Rash/Hives Verified 01/15/19 19:14 metoclopramide [From Reglan] Allergy Unknown Verified 01/15/19 19:14 Physical Exam Vitals: Vital Signs Temp Pulse Pulse Resp BP BP Pulse Ox 01/16/19 11:14 98.6 F 66 16 89/54 94 L 01/16/19 08:00 18 01/15/19 22:25 80 18 127/91 98 01/15/19 21:06 85 18 118/81 98 01/15/19 17:54 99 F 118 H 20 154/97 100 Intake and Output 01/15/19 01/16/19 01/16/19 22:59 06:59 14:59 Other: Weight 113.398 kg PHYSICAL EXAMINATION: GENERAL: The patient is alert and oriented x3, not in any acute distress. Well developed, well nourished. HEENT: Pupils are round and equally reacting to light. EOMI. No scleral icterus. No conjunctival pallor. Normocephalic, atraumatic. No pharyngeal erythema. No thyromegaly. CARDIOVASCULAR: S1 and S2 present. No murmurs, rubs, or gallops. PULMONARY: Chest is clear to auscultation, no wheezing or crackles. ABDOMEN: Soft, nontender, nondistended, normoactive bowel sounds. No palpable organomegaly. MUSCULOSKELETAL: No joint swelling or deformity. EXTREMITIES: No cyanosis, clubbing, or pedal edema. NEUROLOGICAL: Gross neurological examination did not reveal any new focal deficits. She appears to have some chronic weakness in both upper limbs and lower limbs with 4/5 strength SKIN: No rashes. Results CBC & Chem 7: 01/15/19 20:45 01/15/19 20:45 Labs: Abnormal Lab Results - Last 24 Hours (Table) 01/15/19 01/16/19 01/16/19 Range/Units 23:53 02:30 06:59 POC Glucose (mg/dL) 242 H 211 H 199 H (75-99) mg/dL 01/16/19 Range/Units 11:33 POC Glucose (mg/dL) 227 H (75-99) mg/dL Thrombosis Risk Factor Assmnt - Choose All That Apply Any of the Below Risk Factors Present?: Yes Each Factor Represents 1 point: Age 41-60 years, Obesity (BMI >25) Other Risk Factors: No Other congenital or acquired thrombophilia - If yes, enter type in comment: No Thrombosis Risk Factor Assessment Total Risk Factor Score: 2 Thrombosis Risk Factor Assessment Level: Low Risk Assessment and Plan Plan: -Tingling and numbness in both hands and legs: Patient is on IV sodium Medrol which will be continued and neurology will be consulted possibility of MS cannot be ruled out but the possibly is low the other differential being malingering for opiates. Patient definitely exhibiting opiate seeking behavior and narcotic seeking behavior. -Type 2 diabetes mellitus: Patient will be resumed on her home regimen along with the sliding scale insulin patient is on high-dose of steroids and had blood sugars are expected to go up -Hypertension: Patient is hypotensive because of which I'll hold off on lisinopril and metoprolol temporarily patient is not an appropriate dose of met oprolol Hypothyroidism -History of MS -History of migraine -Hypothyroidism -Depression -hyperlipidemia For above-mentioned chronic medical problems patient will be resumed and continued on appropriate home medications
--- NOTE | 2019-01-16 16:10 | P.CNNES ---
History of Present Illness Consult date: 01/16/19 Requesting physician: Beatrice De La Vega Reason for Consult: MS exacerbation Chief complaint: MS exacerbation. History of Present Illness: Patient is a 48-year-old female, who was diagnosed with MS in 2009, currently follows up with Dr. Wilkinson. Patient currently is taking Copaxone generic 40 mg 3 times a week. She has previously failed Ocrevus, Aubagio, Gilenya due to possible side effects. Patient is JCV positive with index value 3.11, therefore cannot try Tysabri. Patient frequently gets MS flare ups. Patient states that since 01/10/2019, she has been noticing "MS hugs" pointing to her upper abdominal region. She is getting spasms in the legs, numbness and tingling in the feet and legs. Patient went to see her neurologist, who did not have any opening for Solu-Medrol infusions at his office, therefore is recommended to go to the hospital for admission for MS exacerbation. Patient states that whenever she is hospitalized, she has to have an IV line, and Tegaderm or any tape on even Band-Aids produces significant rash and ALLERGIES. She therefore requires Benadryl 50 mg IV every 6 hours to prevent rash. Patient states that this has been consistently given to her with previous admissions. She also needs pain medications, as she takes Tylenol 3 at home. She is asking for morphine although she does have a morphine pump in place. Patient was recently admitted to the hospital on 12/06/2018 for intractable headaches. Patient states that she has been started on Aimovig injections by her neurologist. Patient's last MRI of the cervical spine with and without contrast from 10/23/2017 was normal. MRI of the brain showed no acute intracranial process. There are 25 mm or less white matter lesions with no evidence of enhancement. Findings are nonspecific. Her last B6 level was borderline 5, B12 453, folate 10.2. Vitamin D was slightly elevated 87. Her last hemoglobin A1c 6.5 on 04/01/2018. I do not see any spinal fluid results in the system. Review of Systems Multiple including headache, numbness tingling, pain, rashes, ALLERGIES, weakness, dizziness. No blood pressure. Pain, aching. Arthralgias. Denies any loss of control of bowels or bladder. Joint pain, swelling, abdominal pain. Possible anxiety depression. Past Medical History Past Medical History: Asthma, Diabetes Mellitus, Hypertension, Musculoskeletal Disorder, Neurologic Disorder, Thyroid Disorder Additional Past Medical History / Comment(s): MS, back pain, DEGENERATIVE DISC DISEASE, optic neuritis, leukopenia (sores in mouth) History of Any Multi-Drug Resistant Organisms: C-DIFF Date of last positivie culture/infection: 2018 MDRO Source:: stool Past Surgical History: Bladder Surgery, Hernia Repair, Hysterectomy, Orthopedic Surgery, Tubal Ligation Additional Past Surgical History / Comment(s): rhinoplasty, bladder suspension, breast sx, morphine pump , RT KNEE SCOPE, TUMMY TUCK, SCS DEVICE INSERTED AND REMOVED-DOES NOT HAVE T-11 IN SPINE. Past Anesthesia/Blood Transfusion Reactions: Motion Sickness, Postoperative Nausea & Vomiting (PONV) Past Psychological History: No Psychological Hx Reported Additional Psychological History / Comment(s): Pt resides with her spouse and a 16 yr old mindy. She has a glucometer. She is independent. Smoking Status: Never smoker Past Alcohol Use History: None Reported Past Drug Use History: None Reported - Past Family History Father History Unknown: Yes Family Medical History: Hypertension Additional Family Medical History / Comment(s): Pt left home as a teen and does not know parents PMH Mother History Unknown: Yes Family Medical History: No Reported History, Unable to Obtain Additional Family Medical History / Comment(s): NO FAMILY HISTORY Medications and Allergies Home Medications Medication Instructions Recorded Confirmed Type Albuterol Sulfate [Proair Hfa] 2 puff INHALATION RT-Q6H PRN 09/26/15 01/15/19 Hi story Atorvastatin [Lipitor] 10 mg PO DAILY 09/26/15 01/15/19 History Montelukast [Singulair] 10 mg PO DAILY #30 tab 06/23/16 01/15/19 Rx DULoxetine HCL [Cymbalta] 60 mg PO QAM 01/10/17 01/15/19 History Butalb/Acetaminophen/Caffeine 1 cap PO AC-TID PRN 01/16/17 01/15/19 History [Esgic 50-325-40 Capsule] Ipratropium-Albuterol Nebulize 3 ml INHALATION RT-QID PRN 01/16/17 01/15/19 Hist ory [Duoneb 0.5 mg-3 mg/3 ml Soln] INSULIN LISPRO (HumaLOG) [humaLOG] See Protocol SQ ACHS PRN 01/19/17 01/15/19 History Cholecalciferol [Vitamin D3 (25 1,000 unit PO MOWE 03/03/17 01/15/19 History Mcg = 1000 Iu)] Baclofen [Lioresal] 20 mg PO QID 04/26/17 01/15/19 History tiZANidine HCL [Zanaflex] 2 mg PO QID 06/15/17 01/15/19 History Scopolamine 1.5MG/72Hr Patch 1 patch TRANSDERM Q72H 07/07/17 01/15/19 History [TransDerm Scop] Lisinopril [Zestril] 20 mg PO DAILY #30 tab 12/19/17 01/15/19 Rx Metoprolol Tartrate [Lopressor] 25 mg PO DAILY 01/09/18 01/15/19 History metFORMIN HCL [Glucophage] 500 mg PO BID #60 tab 02/10/18 01/15/19 Rx Famotidine [Pepcid] 20 mg PO BID #20 tablet 02/11/18 01/15/19 Rx Acetaminophen-Codeine 300-30mg 1 tab PO TID PRN 12/05/18 01/15/19 History [Tylenol w/codeine #3] Glatiramer Acetate [Copaxone] 40 mg SQ MOWEFR 12/05/18 01/15/19 History Levothyroxine Sodium [Synthroid] 112 mcg PO DAILY 12/05/18 01/15/19 History SUMAtriptan SUCCINATE [Sumatriptan 6 mg SQ DAILY PRN 12/05/18 01/15/19 History Succinate] rOPINIRole HCL [Requip] 2 mg PO TID 12/05/18 01/15/19 History Erenumab-Aooe [Aimovig 70 mg SQ Q30D 01/15/19 01/15/19 History Autoinjector] Morphine Pump 0.1 dose SQ CONTINUOUS 01/15/19 01/15/19 History valACYclovir HCL [Valtrex] 1,000 mg PO BID 01/15/19 01/15/19 History Allergies Allergy/AdvReac Type Severity Reaction Status Date / Time adhesive Allergy Severe Rash/Hives Verified 01/15/19 19:14 adhesive tape Allergy Severe Rash/Hives Verified 01/15/19 19:14 fentanyl Allergy Severe Rash/Hives Verified 01/15/19 19:14 latex Allergy Severe Rash/Hives Verified 01/15/19 19:14 metoclopramide [From Reglan] Allergy Unknown Verified 01/15/19 19:14 Physical Examination - Vital Signs Vital Signs: Vital Signs Temp Pulse Pulse Resp BP BP Pulse Ox 01/16/19 14:47 118/69 01/16/19 11:30 111/51 01/16/19 11:14 98.6 F 66 16 89/54 94 L 01/16/19 08:00 18 01/15/19 22:25 80 18 127/91 98 01/15/19 21:06 85 18 118/81 98 01/15/19 17:54 99 F 118 H 20 154/97 100 Intake and Output 01/16/19 01/16/19 01/16/19 06:59 14:59 22:59 Intake Total 1130 Balance 1130 Intake: Intake, IV Titration 450 Amount Sodium Chloride 0.9% 1, 200 000 ml @ 100 mls/hr IV . Q10H STA Rx#:[id number] methylPREDNISolone SOD 250 SUCC 250 mg In Sodium Chloride 0.9% 100 ml @ 100 mls/hr IVPB Q6HR DESTINY Rx#:[id number] Oral 680 Other: # Voids 2 On examination patient is a middle aged female, who is alert and awake, in no distress. Patient does cry, and sometimes laughs inappropriately. She appears to have some pseudobulbar affect. Patient is demanding medication regimen as above. Speech and language functions are normal. On cranial nerve examination her pupils are round and reacting, visual leung are full. Face is symmetric and tongue protrudes the midline. Palatal elevation and sensation normal. On muscle strength testing, there is no pronator drift, and the strength has a lot of inconsistencies, some giveaway weakness. Overall it was 4 to 4+ to 5-all over. Reflexes are 1+ and plantars are downgoing. No obvious ataxia for [id number] testing. Tone and bulk of muscles normal. Gait deferred. Results - Laboratory Findings CBC and BMP: 01/15/19 20:45 01/15/19 20:45 Abnormal Lab Findings: Abnormal Labs 01/15/19 01/16/19 01/16/19 23:53 02:30 06:59 POC Glucose (mg/dL) 242 H 211 H 199 H 01/16/19 11:33 POC Glucose (mg/dL) 227 H Assessment and Plan Assessment: * Possible MS exacerbation. * Reported history of relapsing remitting MS. * Occipital neuralgia * Multiple ALLERGIES with rash Plan: * Patient will be started on Solu-Medrol 250 mg IV PB every 6 hours for a total of 3 days. * Benadryl 50 mg IV twice a day, as per patient request (although she requested it 4 times a day.) * Tramadol as needed for pain. * After completing above therapy, then patient can follow up with her neurolo gist. * Thank you very much for allowing me to participate in care of your patient.
--- NOTE | 2019-01-16 16:26 | P.PN ---
Progress Note - Text After discontinuation of opiate medications patient declined to see her service. Patient doesn't want any physician from [facility]. She will not be followed by any physician from [facility]. I will let the hospital administration addressed this issue.
[2019-01-16] MEDS: Acetaminophen-Codeine 300-30mg TAB PO PRN (17:02)
[2019-01-16 17:07] LABS: Glucose,Whole Blood 164 mg/dL (75-99)
[2019-01-16] MEDS ORDERED: KETOROLAC 30 MG/ML 1 ML VIAL IVP SCH (19:30)
[2019-01-16] MEDS: KETOROLAC 30 MG/ML 1 ML VIAL IVP PRN (19:56)
[2019-01-16 20:43] LABS: Glucose,Whole Blood 382 mg/dL (75-99)
[2019-01-16] MEDS ORDERED: diphenhydrAMINE 50 MG/ML 1 ML VIAL IVP SCH (21:00)
[2019-01-16] MEDS: FAMOTIDINE 20 MG TAB PO SCH (21:32)
[2019-01-16] MEDS: metFORMIN 500 MG TAB PO SCH (21:32)
[2019-01-16] MEDS: diphenhydrAMINE 50 MG/ML 1 ML VIAL IVP SCH (23:32)
[2019-01-17] MEDS: KETOROLAC 30 MG/ML 1 ML VIAL IVP PRN (04:13)
[2019-01-17] MEDS: LEVOTHYROXINE 112 MCG TAB PO SCH (05:49)
[2019-01-17] MEDS: diphenhydrAMINE 50 MG/ML 1 ML VIAL IVP SCH ×4 (05:50→23:31)
[2019-01-17 07:00] LABS: Glucose,Whole Blood 189 mg/dL (75-99)
[2019-01-17] MEDS: METOPROLOL TARTRATE 25 MG TAB PO SCH (08:22)
[2019-01-17] MEDS: ATORVASTATIN 10 MG TAB PO SCH (08:23)
[2019-01-17] MEDS: LISINOPRIL 20 MG TAB PO SCH (08:23)
[2019-01-17] MEDS: valACYclovir HCL 1,000 MG TABLET PO SCH ×2 (08:23→22:00)
[2019-01-17] MEDS: FAMOTIDINE 20 MG TAB PO SCH ×2 (08:23→22:00)
[2019-01-17] MEDS: BACLOFEN 10 MG TAB PO SCH ×4 (08:23→22:00)
[2019-01-17] MEDS: metFORMIN 500 MG TAB PO SCH ×2 (08:24→22:00)
[2019-01-17] MEDS: ENOXAPARIN 40 MG/0.4 ML SYRINGE SQ SCH (08:24)
[2019-01-17] MEDS: INSULIN ASPART (NovoLOG) 100 UNIT/ML VIAL SQ SCH ×4 (08:25→22:00)
[2019-01-17] MEDS: ONDANSETRON 4 MG/2 ML VIAL IVP PRN (08:29)
[2019-01-17] MEDS: DULoxetine HCL 60 MG CAPSULE.DR PO SCH (08:30)
[2019-01-17] MEDS ORDERED: LISINOPRIL 20 MG TAB PO SCH (09:00)
[2019-01-17] MEDS: Acetaminophen-Codeine 300-30mg TAB PO PRN (10:32)
[2019-01-17 11:35] LABS: Glucose,Whole Blood 200 mg/dL (75-99)
--- NOTE | 2019-01-17 14:04 | P.PAINCN ---
History of Present Illness - Reason for Consult Consult date: 01/17/19 - History of Present Illness This is a 48 years old female, with a long-standing history of severe and chronic low back and generalized pain, she's been diagnosed with multiple sclerosis in 2009, when she had chronic pain syndrome, and she had intrathecal pain pump implanted several years ago and she is currently on intrathecal morphine therapy 9 mg per day, and patient recently admitted to [facility] b ecause of multiple sclerosis exacerbation, she is getting Tylenol No. 3 for breakthrough pain, and she reported the current medication is not helping enough to control her pain she had generalized pain all over her body, and for this reason pain management consultation was requested Past Medical History Past Medical History: Asthma, Diabetes Mellitus, Hypertension, Musculoskeletal Disorder, Neurologic Disorder, Thyroid Disorder Additional Past Medical History / Comment(s): MS, back pain, DEGENERATIVE DISC DISEASE, optic neuritis, leukopenia (sores in mouth) History of Any Multi-Drug Resistant Organisms: C-DIFF Year Discovered:: 2018 MDRO Source:: stool Past Surgical History: Bladder Surgery, Hernia Repair, Hysterectomy, Orthopedic Surgery, Tubal Ligation Additional Past Surgical History / Comment(s): rhinoplasty, bladder suspension, breast sx, morphine pump , RT KNEE SCOPE, TUMMY TUCK, SCS DEVICE INSERTED AND REMOVED-DOES NOT HAVE T-11 IN SPINE. Past Anesthesia/Blood Transfusion Reactions: Motion Sickness, Postoperative Nausea & Vomiting (PONV) Past Psychological History: No Psychological Hx Reported Additional Psychological History / Comment(s): Pt resides with her spouse and a 16 yr old mindy. She has a glucometer. She is independent. Smoking Status: Never smoker Past Alcohol Use History: None Reported Past Drug Use History: None Reported - Past Family History Father History Unknown: Yes Family Medical History: Hypertension Additional Family Medical History / Comment(s): Pt left home as a teen and does not know parents PMH Mother History Unknown: Yes Family Medical History: No Reported History, Unable to Obtain Additional Family Medical History / Comment(s): NO FAMILY HISTORY Medications and Allergies Home Medications Medication Instructions Recorded Confirmed Type Albuterol Sulfate [Proair Hfa] 2 puff INHALATION RT-Q6H PRN 09/26/15 01/15/19 History Atorvastatin [Lipitor] 10 mg PO DAILY 09/26/15 01/15/19 History Montelukast [Singulair] 10 mg PO DAILY #30 tab 06/23/16 01/15/19 Rx DULoxetine HCL [Cymbalta] 60 mg PO QAM 01/10/17 01/15/19 History Butalb/Acetaminophen/Caffeine 1 cap PO AC-TID PRN 01/16/17 01/15/19 History [Esgic 50-325-40 Capsule] Ipratropium-Albuterol Nebulize 3 ml INHALATION RT-QID PRN 01/16/17 01/15/19 History [Duoneb 0.5 mg-3 mg/3 ml Soln] INSULIN LISPRO (HumaLOG) [humaLOG] See Protocol SQ ACHS PRN 01/19/17 01/15/19 History Cholecalciferol [Vitamin D3 (25 1,000 unit PO MOWE 03/03/17 01/15/19 History Mcg = 1000 Iu)] Baclofen [Lioresal] 20 mg PO QID 04/26/17 01/15/19 History tiZANidine HCL [Zanaflex] 2 mg PO QID 06/15/17 01/15/19 History Scopolamine 1.5MG/72Hr Patch 1 patch TRANSDERM Q72H 07/07/17 01/15/19 History [TransDerm Scop] Lisinopril [Zestril] 20 mg PO DAILY #30 tab 12/19/17 01/15/19 Rx Metoprolol Tartrate [Lopressor] 25 mg PO DAILY 01/09/18 01/15/19 History metFORMIN HCL [Glucophage] 500 mg PO BID #60 tab 02/10/18 01/15/19 Rx Famotidine [Pepcid] 20 mg PO BID #20 tablet 02/11/18 01/15/19 Rx Acetaminophen-Codeine 300-30mg 1 tab PO TID PRN 12/05/18 01/15/19 History [Tylenol w/codeine #3] Glatiramer Acetate [Copaxone] 40 mg SQ MOWEFR 12/05/18 01/15/19 History Levothyroxine Sodium [Synthroid] 112 mcg PO DAILY 12/05/18 01/15/19 History SUMAtriptan SUCCINATE [Sumatriptan 6 mg SQ DAILY PRN 12/05/18 01/15/19 History Succinate] rOPINIRole HCL [Requip] 2 mg PO TID 12/05/18 01/15/19 History Erenumab-Aooe [Aimovig 70 mg SQ Q30D 01/15/19 01/15/19 History Autoinjector] Morphine Pump 0.1 dose SQ CONTINUOUS 01/15/19 01/15/19 History valACYclovir HCL [Valtrex] 1,000 mg PO BID 01/15/19 01/15/19 History Allergies Allergy/AdvReac Type Severity Reaction Status Date / Time adhesive Allergy Severe Rash/Hives Verified 01/15/19 19:14 adhesive tape Allergy Severe Rash/Hives Verified 01/15/19 19:14 fentanyl Allergy Severe Rash/Hives Verified 01/15/19 19:14 latex Allergy Severe Rash/Hives Verified 01/15/19 19:14 metoclopramide [From Reglan] Allergy Unknown Verified 01/15/19 19:14 Physical Exam Vitals: Vital Signs Temp Pulse Resp BP Pulse Ox 01/17/19 12:02 98 F 57 L 18 143/90 96 01/17/19 04:56 98.2 F 69 18 118/65 97 01/16/19 23:30 18 01/16/19 22:47 98.9 F 90 18 103/60 93 L 01/16/19 16:33 96 01/16/19 16:00 66 16 01/16/19 14:47 118/69 Intake and Output 01/16/19 01/17/19 01/17/19 22:59 06:59 14:59 Intake Total 740 Balance 740 Intake: Intake, IV Titration 260 Amount Sodium Chloride 0.9% 1, 160 000 ml @ 100 mls/hr IV . Q10H [facility] Rx#:[id number] methylPREDNISolone SOD 100 SUCC 250 mg In Sodium Chloride 0.9% 100 ml @ 100 mls/hr IVPB Q6HR [facility] Rx#:[id number] Oral 480 Other: Voiding Method Toilet # Voids 1 1 Physical Examinations : -Constitutiona : Cooperative , not in acute distress . -HEENT : nech : supple , no Lymphadenopathy , normal thyroid size . eyes : no ptosis , no icterus, no photophobia . . - neurologic : Cranial nerve II to XII intact , no focal ne urological deffecit . -psychatric : alert , oriented X 3 , appropriate affect , intact judgment and insight . Results CBC & Chem 7: 01/15/19 20:45 01/15/19 20:45 Labs: Abnormal Lab Results - Last 24 Hours (Table) 01/16/19 01/16/19 01/17/19 Range/Units 17:06 20:42 06:57 POC Glucose (mg/dL) 164 H 382 H 189 H (75-99) mg/dL 01/17/19 Range/Units 11:32 POC Glucose (mg/dL) 200 H (75-99) mg/dL Assessment and Plan Plan: Assessment and plan= chronic pain syndrome/opioid tolerance, Multiple Sclerosis exacerbation. Patient currently on intrathecal morphine 9 mg per day , she is getting Tylenol No. 3 for breakthrough pain Current regimen is not helping enough to control her pain I recommend to add morphine sulfate 4 mg IV every 4 hours when necessary Time with Patient: Less than 30 PQRS Measure Charge Sheet PQRS Narrative: Smoking Status Never smoker Blood Pressure [Right Arm] 143/90 Blood Pressure 127/91 Pain Intensity [Generalized] 8 Pain Intensity 0 Pain Scale Used Non Verbal Pain Indicator Scale Used Numeric (1 - 10) Home Medications: Ambulatory Orders Albuterol Sulfate [Proair Hfa] 2 puff INHALATION RT-Q6H PRN 09/26/15 Atorvastatin [Lipitor] 10 mg PO DAILY 09/26/15 Montelukast [Singulair] 10 mg PO DAILY #30 tab 06/23/16 DULoxetine HCL [Cymbalta] 60 mg PO QAM 01/10/17 Butalb/Acetaminophen/Caffeine [Esgic 50-325-40 Capsule] 1 cap PO AC-TID PRN 01/16/17 Ipratropium-Albuterol Nebulize [Duoneb 0.5 mg-3 mg/3 ml Soln] 3 ml INHALATION RT-QID PRN 01/16/17 INSULIN LISPRO (HumaLOG) [humaLOG] See Protocol SQ ACHS PRN 01/19/17 Cholecalciferol [Vitamin D3 (25 Mcg = 1000 Iu)] 1,000 unit PO MOWE 03/03/17 Baclofen [Lioresal] 20 mg PO QID 04/26/17 tiZANidine HCL [Zanaflex] 2 mg PO QID 06/15/17 Scopolamine 1.5MG/72Hr Patch [TransDerm Scop] 1 patch TRANSDERM Q72H 07/07/17 Lisinopril [Zestril] 20 mg PO DAILY #30 tab 12/19/17 Metoprolol Tartrate [Lopressor] 25 mg PO DAILY 01/09/18 metFORMIN HCL [Glucophage] 500 mg PO BID #60 tab 02/10/18 Famotidine [Pepcid] 20 mg PO BID #20 tablet 02/11/18 Acetaminophen-Codeine 300-30mg [Tylenol w/codeine #3] 1 tab PO TID PRN 12/05/18 Glatiramer Acetate [Copaxone] 40 mg SQ MOWEFR 12/05/18 Levothyroxine Sodium [Synthroid] 112 mcg PO DAILY 12/05/18 SUMAtriptan SUCCINATE [Sumatriptan Succinate] 6 mg SQ DAILY PRN 12/05/18 rOPINIRole HCL [Requip] 2 mg PO TID 12/05/18 Erenumab-Aooe [Aimovig Autoinjector] 70 mg SQ Q30D 01/15/19 Morphine Pump 0.1 dose SQ CONTINUOUS 01/15/19 valACYclovir HCL [Valtrex] 1,000 mg PO BID 01/15/19
[2019-01-17] MEDS: MORPHINE SULFATE 4 MG/ML SYRINGE IVP PRN (14:35)
[2019-01-17 17:39] LABS: Glucose,Whole Blood 150 mg/dL (75-99)
--- NOTE | 2019-01-17 19:48 | P.PN ---
Subjective Progress Note Date: 01/17/19 Patient states she is feeling much better. She is receiving Solu-Medrol 250 mg every 6 hours. Patient is also on Benadryl 50 May grams IV push every 6 hours to prevent ALLERGIES related to adhesive tape material. She is also getting optimal pain control, as per recommendation from pain specialist. No new neurological symptoms. Objective - Vital Signs Vital signs: Vital Signs Temp 98 F 01/17/19 12:02 Pulse 72 01/17/19 15:45 Resp 18 01/17/19 15:45 BP 143/90 01/17/19 12:02 Pulse Ox 96 01/17/19 12:02 Intake & Output 01/17/19 01/17/19 01/18/19 06:59 18:59 06:59 Intake Total 260 1060 360 Balance 260 1060 360 Intake: Intake, IV Titration 260 200 Amount Sodium Chloride 0.9% 1, 160 000 ml @ 100 mls/hr IV . Q10H [facility] Rx#:[id number] methylPREDNISolone SOD 100 200 SUCC 250 mg In Sodium Chloride 0.9% 100 ml @ 100 mls/hr IVPB Q6HR [facility] Rx#:[id number] Oral 860 360 Other: Voiding Method Toilet Toilet # Voids 1 4 - Exam Patient's mental status, speech and language functions are normal. Affect is improved. - Labs CBC & Chem 7: 01/15/19 20:45 01/15/19 20:45 Labs: Abnormal Lab Results - Last 24 Hours (Table) 01/16/19 01/17/19 01/17/19 Range/Units 20:42 06:57 11:32 POC Glucose (mg/dL) 382 H 189 H 200 H (75-99) mg/dL 01/17/19 Range/Units 17:37 POC Glucose (mg/dL) 150 H (75-99) mg/dL Assessment and Plan Assessment: * Possible MS exacerbation. * Reported history of relapsing remitting MS. * Occipital neuralgia * Multiple ALLERGIES with rash Plan: * Continue Solu-Medrol 250 mg IV PB every 6 hours for a total of 3 days (or equal to 12 doses total). Then patient can be discharged. * Benadryl 50 mg IV every 6 hours. * Pain management addressing her chronic pain. * After completing above therapy, then patient can follow up with her neurologist. * Thank you very much for allowing me to participate in care of your patient.
[2019-01-17 20:57] LABS: Glucose,Whole Blood 194 mg/dL (75-99)
--- NOTE | 2019-01-17 23:00 | P.PN ---
Progress Note - Text Progress Note Date: 01/17/19 Interval history: Patient admitted with MS exacerbation. Admitted with numbness and tingling in both the legs. Patient does follow with Dr. No. She also follows with him for his chronic pain medications. On IV Solu-Medrol. Also got chronic pain. Feeling better. Up to the bathroom. Starting a diet. Had a bowel movement. Feeling better today. Review of systems: Was done for constitutional, cardiovascular, GI, pulmonary. Neurological, relevant finding as above Active Medications Acetaminophen/Butalbital/Caffeine (Fioricet 50-325-40) 1 each PO AC-TID PRN PRN Reason: Headache Acetaminophen/Codeine Phosphate (Tylenol #3) 1 each PO TID PRN PRN Reason: Moderate Pain Last Admin: 01/17/19 10:32 Dose: 1 each Documented by: Albuterol/Ipratropium (Duoneb 0.5 Mg-3 Mg/3 Ml Soln) 3 ml INHALATION RT-QID PRN PRN Reason: Shortness Of Breath Atorvastatin Calcium (Lipitor) 10 mg PO DAILY [facility] Last Admin: 01/17/19 08:23 Dose: 10 mg Documented by: Baclofen (Lioresal) 20 mg PO QID [facility] Last Admin: 01/17/19 22:00 Dose: 20 mg Documented by: Diphenhydramine HCl (Benadryl) 50 mg IVP Q6HR [facility] Last Admin: 01/17/19 17:54 Dose: 50 mg Documented by: Duloxetine HCl (Cymbalta) 60 mg PO QAM [facility] Last Admin: 01/17/19 08:30 Dose: 60 mg Documented by: Enoxaparin Sodium (Lovenox) 40 mg SQ DAILY [facility] Last Admin: 01/17/19 08:24 Dose: 40 mg Documented by: Famotidine (Pepcid) 20 mg PO BID [facility] Last Admin: 01/17/19 22:00 Dose: 20 mg Documented by: Methylprednisolone Sodium Succinate 250 mg/ Sodium Chloride 100 mls @ 100 mls/hr IVPB Q6HR [facility] Last Admin: 01/17/19 17:53 Dose: 100 mls/hr Documented by: Insulin Aspart (Novolog) 0 unit SQ ACHS [facility]; Protocol Last Admin: 01/17/19 22:00 Dose: 2 unit Documented by: Ketorolac Tromethamine (Toradol) 30 mg IVP Q8HR PRN PRN Reason: Mild Pain Stop: 01/20/19 19:23 Last Admin: 01/17/19 04:13 Dose: 30 mg Documented by: Levothyroxine Sodium (Synthroid) 112 mcg PO 0630 [facility] Last Admin: 01/17/19 05:49 Dose: 112 mcg Documented by: Lisinopril (Zestril) 20 mg PO DAILY [facility] Last Admin: 01/17/19 08:23 Dose: 20 mg Documented by: Metformin HCl (Glucophage) 500 mg PO BID [facility] Last Admin: 01/17/19 22:00 Dose: 500 mg Documented by: Metoprolol Tartrate (Lopressor) 25 mg PO DAILY [facility] Last Admin: 01/17/19 08:22 Dose: 25 mg Documented by: Morphine Sulfate (Morphine Sulfate (Inj)) 4 mg IVP Q4H PRN PRN Reason: Severe Pain Last Admin: 01/17/19 14:35 Dose: 4 mg Documented by: Copaxone (Glatiramer (Acetate) 40 Mg) 40 mg SQ MoWeFr@0900 [facility] Last Admin: 01/16/19 19:55 Dose: 40 mg Documented by: Ondansetron HCl (Zofran) 4 mg IVP Q6HR PRN PRN Reason: Nausea And Vomiting Last Admin: 01/17/19 08:29 Dose: 4 mg Documented by: Ropinirole HCl (Requip) 2 mg PO TID [facility] Last Admin: 01/17/19 22:00 Dose: 2 mg Documented by: Scopolamine (Transderm-Scop 1.5mg/72hr Patch) 1 patch TRANSDERM Q72H [facility] Last Admin: 01/16/19 16:31 Dose: 1 patch Documented by: Sumatriptan Succinate (Imitrex) 6 mg SQ DAILY PRN PRN Reason: Migraine Headache Last Admin: 01/17/19 10:57 Dose: 6 mg Documented by: Valacyclovir HCl (Valtrex) 1,000 mg PO BID [facility] Last Admin: 01/17/19 22:00 Dose: 1,000 mg Documented by: Physical examination: VITAL SIGNS: 98, 57, 18, 143/90, 96% room air GENERAL: BMI 38, laying in bed not in distress. EYES: Pupils equal. Conjunctiva normal. HEENT: External appearance of nose and ears normal, oral cavity grossly normal. NECK: JVD not raised; masses not palpable. HEART: First and second heart sounds are normal; no edema. LUNGS: Respiratory rate normal; clear to auscultation. ABDOMEN: Soft, nontender, liver spleen not palpable, no masses palpable. PSYCH: Alert and oriented x3; mood and affect normal. NEUROLOGICAL: Cranial nerves grossly intact; no facial asymmetry, power and sensation grossly intact. INVESTIGATIONS, reviewed in the clinical context: [id number], 200, 150, Assessment: -Acute exacerbation of multiple sclerosis with chronic left-sided weakness and optic neuritis -Hypothyroid -Essential hypertension -Diabetes mellitus type 2 -Intermittent asthma -Chronic pain syndrome Plan: Patient is IV Solu-Medrol was 6 out of a total of 3 days. Also in IV Benadryl 50 mg every 6 per neurology. Pain management was consulted. Care was discussed with the patient. Questions were answered. Hopefully can be discharged tomorrow.
[2019-01-17] MEDS ORDERED: ENOXAPARIN 40 MG/0.4 ML SYRINGE SQ SCH (23:15)
[2019-01-18] MEDS: ONDANSETRON 4 MG/2 ML VIAL IVP PRN ×2 (00:16→07:52)
[2019-01-18] MEDS: MORPHINE SULFATE 4 MG/ML SYRINGE IVP PRN ×3 (00:18→17:20)
[2019-01-18] MEDS: KETOROLAC 30 MG/ML 1 ML VIAL IVP PRN ×2 (03:59→11:45)
[2019-01-18] MEDS: diphenhydrAMINE 50 MG/ML 1 ML VIAL IVP SCH ×3 (06:12→21:51)
[2019-01-18] MEDS: LEVOTHYROXINE 112 MCG TAB PO SCH (06:17)
[2019-01-18 07:15] LABS: Glucose,Whole Blood 190 mg/dL (75-99)
[2019-01-18] MEDS: metFORMIN 500 MG TAB PO SCH ×2 (07:39→22:04)
[2019-01-18] MEDS: valACYclovir HCL 1,000 MG TABLET PO SCH ×2 (07:39→22:04)
[2019-01-18] MEDS: FAMOTIDINE 20 MG TAB PO SCH ×2 (07:39→22:00)
[2019-01-18] MEDS: DULoxetine HCL 60 MG CAPSULE.DR PO SCH (07:40)
[2019-01-18] MEDS: ENOXAPARIN 40 MG/0.4 ML SYRINGE SQ SCH (07:40)
[2019-01-18] MEDS: ATORVASTATIN 10 MG TAB PO SCH (07:40)
[2019-01-18] MEDS: INSULIN ASPART (NovoLOG) 100 UNIT/ML VIAL SQ SCH ×4 (07:40→22:00)
[2019-01-18] MEDS: METOPROLOL TARTRATE 25 MG TAB PO SCH (07:40)
[2019-01-18] MEDS: BACLOFEN 10 MG TAB PO SCH ×4 (07:40→22:04)
[2019-01-18] MEDS: LISINOPRIL 20 MG TAB PO SCH (07:40)
[2019-01-18 11:43] LABS: Glucose,Whole Blood 190 mg/dL (75-99)
[2019-01-18 17:19] LABS: Glucose,Whole Blood 176 mg/dL (75-99)
[2019-01-18 20:13] LABS: Glucose,Whole Blood 181 mg/dL (75-99)
--- NOTE | 2019-01-18 21:29 | P.PN ---
Subjective Progress Note Date: 01/18/19 Patient states she is feeling much better. She is receiving Solu-Medrol 250 mg every 6 hours. Patient is also on Benadryl 50 May grams IV push every 6 hours to prevent ALLERGIES related to adhesive tape material. She is also getting optimal pain control, as per recommendation from pain specialist. Patient's IV got infiltrated. The nurses tried numerous times including anesthesiologists and not able to get an IV access. Patient upset that she is not able to receive her pain medications, Benadryl or Solu-Medrol. Objective - Vital Signs Vital signs: Vital Signs Temp 98.8 F 01/18/19 13:00 Pulse 61 01/18/19 16:00 Resp 18 01/18/19 16:00 BP 143/74 01/18/19 13:00 Pulse Ox 94 L 01/18/19 16:39 Intake & Output 01/18/19 01/18/19 01/19/19 06:59 18:59 06:59 Intake Total 1640 Balance 1640 Intake: Intake, IV Titration 200 Amount methylPREDNISolone SOD 200 SUCC 250 mg In Sodium Chloride 0.9% 100 ml @ 100 mls/hr IVPB Q6HR [facility] Rx#:[id number] Oral 1440 Other: Voiding Method Toilet Toilet # Voids 3 1 - Exam Patient's mental status, speech and language functions are normal. Affect is i mproved. 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 Hip flexion is 5-, but ankles and knees are normal. No ataxia. - Labs CBC & Chem 7: 01/15/19 20:45 01/15/19 20:45 Labs: Abnormal Lab Results - Last 24 Hours (Table) 01/18/19 01/18/19 01/18/19 Range/Units 07:12 11:20 17:10 POC Glucose (mg/dL) 190 H 190 H 176 H (75-99) mg/dL 01/18/19 Range/Units 20:11 POC Glucose (mg/dL) 181 H (75-99) mg/dL Assessment and Plan Assessment: * Possible MS exacerbation. * Reported history of relapsing remitting MS. * Occipital neuralgia * Multiple ALLERGIES with rash Plan: * Continue Solu-Medrol 250 mg IV PB every 6 hours for a total of 3 days. If the IV access cannot be obtained, and if patient is feeling well, no need to give the last one treatment of Solu-Medrol 250 mg. * Patient is clear for discharge from neurology point. * We will sign off.
[2019-01-18] MEDS: Acetaminophen-Codeine 300-30mg TAB PO PRN (22:10)
--- NOTE | 2019-01-18 22:21 | P.PN ---
Progress Note - Text Progress Note Date: 01/18/19 Interval history: Patient admitted with MS exacerbation. Admitted with numbness and tingling in both the legs. Patient does follow with Dr. No. She also follows with him for his chronic pain medications. On IV Solu-Medrol. Also got chronic pain. Patient seen by neurology and also by pain management team. Today-current is to feel better. Care is IV Solu-Medrol. Tolerating a diet. Pain is better controlled. Laying in bed. Up to the bathroom. Review of systems: Was done for constitutional, cardiovascular, GI, pulmonary. Neurological, relevant finding as above Active Medications Acetaminophen/Butalbital/Caffeine (Fioricet 50-325-40) 1 each PO AC-TID PRN PRN Reason: Headache Acetaminophen/Codeine Phosphate (Tylenol #3) 1 each PO TID PRN PRN Reason: Moderate Pain Last Admin: 01/18/19 22:10 Dose: 1 each Documented by: Albuterol/Ipratropium (Duoneb 0.5 Mg-3 Mg/3 Ml Soln) 3 ml INHALATION RT-QID PRN PRN Reason: Shortness Of Breath Atorvastatin Calcium (Lipitor) 10 mg PO DAILY [facility] Last Admin: 01/18/19 07:40 Dose: 10 mg Documented by: Baclofen (Lioresal) 20 mg PO QID [facility] Last Admin: 01/18/19 22:04 Dose: 20 mg Documented by: Diphenhydramine HCl (Benadryl) 50 mg IVP Q6HR [facility] Last Admin: 01/18/19 21:51 Dose: Not Given Documented by: Duloxetine HCl (Cymbalta) 60 mg PO QAM [facility] Last Admin: 01/18/19 07:40 Dose: 60 mg Documented by: Enoxaparin Sodium (Lovenox) 40 mg SQ DAILY [facility] Last Admin: 01/18/19 07:40 Dose: 40 mg Documented by: Famotidine (Pepcid) 20 mg PO BID [facility] Last Admin: 01/18/19 22:00 Dose: 20 mg Documented by: Insulin Aspart (Novolog) 0 unit SQ [facility]; Protocol Last Admin: 01/18/19 22:00 Dose: 4 unit Documented by: Ketorolac Tromethamine (Toradol) 30 mg IVP Q8HR PRN PRN Reason: Mild Pain Stop: 01/20/19 19:23 Last Admin: 01/18/19 11:45 Dose: 30 mg Documented by: Levothyroxine Sodium (Synthroid) 112 mcg PO 0630 [facility] Last Admin: 01/18/19 06:17 Dose: 112 mcg Documented by: Lisinopril (Zestril) 20 mg PO DAILY [facility] Last Admin: 01/18/19 07:40 Dose: 20 mg Documented by: Metformin HCl (Glucophage) 500 mg PO BID [facility] Last Admin: 01/18/19 22:04 Dose: 500 mg Documented by: Methylprednisolone Sodium Succinate (Solu-Medrol) 250 mg IM Q6HR [facility] Stop: 01/19/19 06:01 Metoprolol Tartrate (Lopressor) 25 mg PO DAILY [facility] Last Admin: 01/18/19 07:40 Dose: 25 mg Documented by: Morphine Sulfate (Morphine Sulfate (Inj)) 4 mg IVP Q4H PRN PRN Reason: Severe Pain Last Admin: 01/18/19 17:20 Dose: 4 mg Documented by: Copaxone (Glatiramer (Acetate) 40 Mg) 40 mg SQ MoWeFr@0900 [facility] Last Admin: 01/16/19 19:55 Dose: 40 mg Documented by: Ondansetron HCl (Zofran) 4 mg IVP Q6HR PRN PRN Reason: Nausea And Vomiting Last Admin: 01/18/19 07:52 Dose: 4 mg Documented by: Ropinirole HCl (Requip) 2 mg PO TID [facility] Last Admin: 01/18/19 22:04 Dose: 2 mg Documented by: Scopolamine (Transderm-Scop 1.5mg/72hr Patch) 1 patch TRANSDERM Q72H [facility] Last Admin: 01/16/19 16:31 Dose: 1 patch Documented by: Sumatriptan Succinate (Imitrex) 6 mg SQ DAILY PRN PRN Reason: Migraine Headache Last Admin: 01/17/19 10:57 Dose: 6 mg Documented by: Valacyclovir HCl (Valtrex) 1,000 mg PO BID [facility] Last Admin: 01/18/19 22:04 Dose: 1,000 mg Documented by: Physical examination: VITAL SIGNS: 98.8, 61, 18, 143 was 34, 93% room air GENERAL: Laying in bed, comfortable. EYES: Pupils equal. Conjunctiva normal. HEENT: External appearance of nose and ears normal, oral cavity grossly normal. NECK: JVD not raised; masses not palpable. HEART: First and second heart sounds are normal; no edema. LUNGS: Respiratory rate normal; clear to auscultation. ABDOMEN: Soft, nontender, liver spleen not palpable, no masses palpable. PSYCH: Alert and oriented x3; mood and affect normal. NEUROLOGICAL: Cranial nerves grossly intact; no facial asymmetry, power and sensation grossly intact. INVESTIGATIONS, reviewed in the clinical context: [id number] Assessment: -Acute exacerbation of multiple sclerosis with chronic left-sided weakness and optic neuritis -Hypothyroid -Essential hypertension -Diabetes mellitus type 2 -Intermittent asthma -Chronic pain syndrome Plan: Patient be completing her 12 doses of Solu-Medrol tomorrow afternoon. Patient came in discharge of left. Discussed with the patient. Question answered
[2019-01-19] MEDS: methylPREDNISolone SOD SUCCI 125 MG/2 ML VIAL IM SCH ×2 (01:04→06:07)
[2019-01-19] MEDS: diphenhydrAMINE 50 MG/ML 1 ML VIAL IVP SCH ×3 (01:07→12:11)
[2019-01-19 05:28] VITALS: BP 153/67; TEMP 97.7
[2019-01-19] MEDS: LEVOTHYROXINE 112 MCG TAB PO SCH (06:08)
[2019-01-19 07:32] LABS: Glucose,Whole Blood 195 mg/dL (75-99)
[2019-01-19] MEDS: diphenhydrAMINE 25 MG CAP PO STA ×2 (08:28→09:25)
[2019-01-19] MEDS: INSULIN ASPART (NovoLOG) 100 UNIT/ML VIAL SQ SCH (08:34)
[2019-01-19] MEDS: metFORMIN 500 MG TAB PO SCH (08:38)
[2019-01-19] MEDS: LISINOPRIL 20 MG TAB PO SCH (08:38)
[2019-01-19] MEDS: valACYclovir HCL 1,000 MG TABLET PO SCH (08:38)
[2019-01-19] MEDS: FAMOTIDINE 20 MG TAB PO SCH (08:39)
[2019-01-19] MEDS: DULoxetine HCL 60 MG CAPSULE.DR PO SCH (08:39)
[2019-01-19] MEDS: ENOXAPARIN 40 MG/0.4 ML SYRINGE SQ SCH (08:39)
[2019-01-19] MEDS: ATORVASTATIN 10 MG TAB PO SCH (08:39)
[2019-01-19] MEDS: BACLOFEN 10 MG TAB PO SCH (08:39)
[2019-01-19] MEDS: METOPROLOL TARTRATE 25 MG TAB PO SCH (08:40)
[2019-01-19] MEDS: Acetaminophen-Codeine 300-30mg TAB PO PRN (10:41)
[2019-01-19 11:07] VITALS: PULSE 52; RESP 18
[2019-01-19] MEDS ORDERED: diphenhydrAMINE 50 MG/ML 1 ML VIAL IVP STA (12:07)
--- NOTE | 2019-01-21 00:22 | P.DS ---
Providers Date of admission: 01/17/19 08:12 Expected date of discharge: 01/19/19 Attending physician: José Ferreira Consults: 01/15/19 19:26 Consult Physician Routine Consulting Provider: Travis Hirsch Consult Reason/Comments: MS Do you want consulting provider notified?: Yes 01/17/19 10:26 Consult Physician Routine Consulting Provider: Guillermina Skinner Consult Reason/Comments: pain management Do you want consulting provider notified?: Yes Primary care physician: Viola Serrano [facility] Course: Hospital course: Patient admitted with MS exacerbation. Admitted with numbness and tingling in both the legs. Patient does follow with Dr. No. She also follows with him for his chronic pain medications. On IV Solu-Medrol. Also got chronic pain. Patient seen by neurology and also by pain management team. Patient received a total current dose of IV Solu-Medrol. Feeling much better care of discharge. Care was discussed with the patient and the daughter in detail. Daughters will be staying with the patient 2 days at all times. Patient is ambulatory. Consultation: Dr. Izquierdo from neurology Dr. Skinner from pain management Physical examination: VITAL SIGNS: 97.7, 52, 18, 153/67, 97% room air GENERAL: Propped up, comfortable EYES: Pupils equal. Conjunctiva normal. HEENT: External appearance of nose and ears normal, oral cavity grossly normal. NECK: JVD not raised; masses not palpable. HEART: First and second heart sounds are normal; no edema. LUNGS: Respiratory rate normal; clear to auscultation. ABDOMEN: Soft, nontender, liver spleen not palpable, no masses palpable. PSYCH: Alert and oriented x3; mood and affect normal. NEUROLOGICAL: Cranial nerves grossly intact; no facial asymmetry, power and sensation grossly intact. INVESTIGATIONS, reviewed in the clinical context: [id number] Discharge diagnosis: -Acute exacerbation of multiple sclerosis with chronic left-sided weakness and optic neuritis -Hypothyroid -Essential hypertension -Diabetes mellitus type 2 -Intermittent asthma -Chronic pain syndrome Disposition: Home Patient Condition at Discharge: Stable Plan - Discharge Summary Discharge Rx Participant: Yes New Discharge Prescriptions: Continue Atorvastatin [Lipitor] 10 mg PO DAILY Albuterol Sulfate [Proair Hfa] 2 puff INHALATION RT-Q6H PRN PRN Reason: Shortness Of Breath Montelukast [Singulair] 10 mg PO DAILY #30 tab DULoxetine HCL [Cymbalta] 60 mg PO QAM Ipratropium-Albuterol Nebulize [Duoneb 0.5 mg-3 mg/3 ml Soln] 3 ml INHALATION RT-QID PRN PRN Reason: Shortness Of Breath Butalb/Acetaminophen/Caffeine [Esgic 50-325-40 Capsule] 1 cap PO AC-TID PRN PRN Reason: Headache INSULIN LISPRO (HumaLOG) [humaLOG] See Protocol SQ ACHS PRN PRN Reason: Blood Sugar - High Cholecalciferol [Vitamin D3 (25 Mcg = 1000 Iu)] 1,000 unit PO MOWE Baclofen [Lioresal] 20 mg PO QID tiZANidine HCL [Zanaflex] 2 mg PO QID Scopolamine 1.5MG/72Hr Patch [TransDerm Scop] 1 patch TRANSDERM Q72H Lisinopril [Zestril] 20 mg PO DAILY #30 tab metFORMIN HCL [Glucophage] 500 mg PO BID #60 tab Famotidine [Pepcid] 20 mg PO BID #20 tablet Glatiramer Acetate [Copaxone] 40 mg SQ MOWEFR Acetaminophen-Codeine 300-30mg [Tylenol w/codeine #3] 1 tab PO TID PRN PRN Reason: Pain rOPINIRole HCL [Requip] 2 mg PO TID Levothyroxine Sodium [Synthroid] 112 mcg PO DAILY SUMAtriptan SUCCINATE [Sumatriptan Succinate] 6 mg SQ DAILY PRN PRN Reason: Migraine Headache Erenumab-Aooe [Aimovig Autoinjector] 70 mg SQ Q30D valACYclovir HCL [Valtrex] 1,000 mg PO BID Morphine Pump 0.1 dose SQ CONTINUOUS Changed Metoprolol Tartrate [Lopressor] 12.5 mg PO BID #0 Discharge Medication List Albuterol Sulfate [Proair Hfa] 2 puff INHALATION RT-Q6H PRN 09/26/15 [History] Atorvastatin [Lipitor] 10 mg PO DAILY 09/26/15 [History] Montelukast [Singulair] 10 mg PO DAILY #30 tab 06/23/16 [Rx] DULoxetine HCL [Cymbalta] 60 mg PO QAM 01/10/17 [History] Butalb/Acetaminophen/Caffeine [Esgic 50-325-40 Capsule] 1 cap PO AC-TID PRN 01/16/17 [History] Ipratropium-Albuterol Nebulize [Duoneb 0.5 mg-3 mg/3 ml Soln] 3 ml INHALATION RT-QID PRN 01/16/17 [History] INSULIN LISPRO (HumaLOG) [humaLOG] See Protocol SQ ACHS PRN 01/19/17 [History] Cholecalciferol [Vitamin D3 (25 Mcg = 1000 Iu)] 1,000 unit PO MOWE 03/03/17 [History] Baclofen [Lioresal] 20 mg PO QID 04/26/17 [History] tiZANidine HCL [Zanaflex] 2 mg PO QID 06/15/17 [History] Scopolamine 1.5MG/72Hr Patch [TransDerm Scop] 1 patch TRANSDERM Q72H 07/07/17 [History] Lisinopril [Zestril] 20 mg PO DAILY #30 tab 12/19/17 [Rx] metFORMIN HCL [Glucophage] 500 mg PO BID #60 tab 02/10/18 [Rx] Famotidine [Pepcid] 20 mg PO BID #20 tablet 02/11/18 [Rx] Acetaminophen-Codeine 300-30mg [Tylenol w/codeine #3] 1 tab PO TID PRN 12/05/18 [History] Glatiramer Acetate [Copaxone] 40 mg SQ MOWEFR 12/05/18 [History] Levothyroxine Sodium [Synthroid] 112 mcg PO DAILY 12/05/18 [History] SUMAtriptan SUCCINATE [Sumatriptan Succinate] 6 mg SQ DAILY PRN 12/05/18 [History] rOPINIRole HCL [Requip] 2 mg PO TID 12/05/18 [History] Erenumab-Aooe [Aimovig Autoinjector] 70 mg SQ Q30D 01/15/19 [History] Morphine Pump 0.1 dose SQ CONTINUOUS 01/15/19 [History] valACYclovir HCL [Valtrex] 1,000 mg PO BID 01/15/19 [History] Metoprolol Tartrate [Lopressor] 12.5 mg PO BID #0 01/19/19 [Rx] Follow up Appointment(s)/Referral(s): Viola Serrano MD [Primary Care Provider] - 1 Week (Patient to call Dr. Serrano's office Monday morning to schedule follow up appointment. The office is closed at time of discharge. ) Maura No MD [Medical Doctor] - 3 Days (Patient to call Dr. No's office Monday morning to schedule follow up appointment. The office is closed at time of discharge. ) Patient Instructions/Handouts: Dehydration (DC), Chronic Pain (DC) Discharge Disposition: HOME SELF-CARE
== END 2019-01-19 12:30 | disposition home or self-care (01) | DRG 59 ==
LOC: EC 17:40 → 3NMEDONC 19:26 → OBSVTOIN 01-17 08:12
PROVIDERS: ADMIT Hospitalist; ATTEND Hospitalist
DX: G35 Multiple sclerosis (principal); H46.9 Unspecified optic neuritis; I95.9 Hypotension, unspecified; M54.81 Occipital neuralgia; G89.4 Chronic pain syndrome; M54.9 Dorsalgia, unspecified; E86.0 Dehydration; Z76.5 Malingerer [conscious simulation]; G43.909 Migraine, unspecified, not intractable, without status migrainosus; I10 Essential (primary) hypertension; E11.9 Type 2 diabetes mellitus without complications; J45.20 Mild intermittent asthma, uncomplicated; E78.5 Hyperlipidemia, unspecified; E03.9 Hypothyroidism, unspecified; F32.9 Major depressive disorder, single episode, unspecified; Z79.4 Long term (current) use of insulin; Z79.890 Hormone replacement therapy; Z79.891 Long term (current) use of opiate analgesic; Z79.899 Other long term (current) drug therapy; Z90.710 Acquired absence of both cervix and uterus; Z96.9 Presence of functional implant, unspecified; Z86.19 Personal history of other infectious and parasitic diseases; Z98.51 Tubal ligation status; Z98.890 Other specified postprocedural states; Z91.040 Latex allergy status; Z88.5 Allergy status to narcotic agent; Z88.8 Allergy status to other drugs, medicaments and biological substances; Z91.048 Other nonmedicinal substance allergy status; Z82.49 Family history of ischemic heart disease and other diseases of the circulatory system
CPT/HCPCS: 80053; 81003; 82550; 83735; 84100; 85025; 93005; 94760; 96365; 96366; 96372; 96375; 99285

== ENCOUNTER 2019-03-20 20:46 | Emergency (ER) | payer BC, MEDICARE ==
[2019-03-20 21:01] VITALS: RESP 18; TEMP 98.3
[2019-03-20] MEDS ORDERED: SODIUM CHLORIDE 0.9% 1,000 ML IV STA (21:12)
[2019-03-20] MEDS ORDERED: ONDANSETRON 4 MG/2 ML VIAL IVP STA (21:12)
[2019-03-20] MEDS ORDERED: MORPHINE SULFATE 4 MG/ML SYRINGE IV STA (21:12)
--- NOTE | 2019-03-20 21:15 | ED ---
General Adult HPI - General Chief complaint: Abdominal Pain Stated complaint: Abd Pain Time Seen by Provider: 03/20/19 21:08 Source: patient, RN notes reviewed, old records reviewed Mode of arrival: ambulatory Limitations: no limitations - History of Present Illness Initial comments: 48 -year-old female history of MS, migraines presenting for evaluation of generalized abdominal pain and nausea. Patient states she's had persistent abdominal pain for the past one week. She has history of anterior abdominal wall hernia which was repaired approximately 2 years ago. She states that her symptoms feel similar to previous hernia. She's had approximately 20 episodes of vomiting over the course of one week. She does report several episodes of diarrhea yesterday. No diarrhea today. She reports subjective low grade fever and chills. She also is complaining of a migraine headache and states she does have nausea with her headaches but this is only been going on today. - Related Data Home Medications Medication Instructions Recorded Confirmed Albuterol Sulfate [Proair Hfa] 2 puff INHALATION RT-Q6H PRN 09/26/15 01/15/19 Atorvastatin [Lipitor] 10 mg PO DAILY 09/26/15 01/15/19 DULoxetine HCL [Cymbalta] 60 mg PO QAM 01/10/17 01/15/19 Butalb/Acetaminophen/Caffeine 1 cap PO AC-TID PRN 01/16/17 01/15/19 [Esgic 50-325-40 Capsule] Ipratropium-Albuterol Nebulize 3 ml INHALATION RT-QID PRN 01/16/17 01/15/19 [Duoneb 0.5 mg-3 mg/3 ml Soln] INSULIN LISPRO (HumaLOG) [humaLOG] See Protocol SQ ACHS PRN 01/19/17 01/15/19 Cholecalciferol [Vitamin D3 (25 1,000 unit PO MOWE 03/03/17 01/15/19 Mcg = 1000 Iu)] Baclofen [Lioresal] 20 mg PO QID 04/26/17 01/15/19 tiZANidine HCL [Zanaflex] 2 mg PO QID 06/15/17 01/15/19 Scopolamine 1.5MG/72Hr Patch 1 patch TRANSDERM Q72H 07/07/17 01/15/19 [TransDerm Scop] Acetaminophen-Codeine 300-30mg 1 tab PO TID PRN 12/05/18 01/15/19 [Tylenol w/codeine #3] Glatiramer Acetate [Copaxone] 40 mg SQ MOWEFR 12/05/18 01/15/19 Levothyroxine Sodium [Synthroid] 112 mcg PO DAILY 12/05/18 01/15/19 SUMAtriptan SUCCINATE [Sumatriptan 6 mg SQ DAILY PRN 12/05/18 01/15/19 Succinate] rOPINIRole HCL [Requip] 2 mg PO TID 12/05/18 01/15/19 Erenumab-Aooe [Aimovig 70 mg SQ Q30D 01/15/19 01/15/19 Autoinjector] Morphine Pump 0.1 dose SQ CONTINUOUS 01/15/19 01/15/19 valACYclovir HCL [Valtrex] 1,000 mg PO BID 01/15/19 01/15/19 Previous Rx's Medication Instructions Recorded Montelukast [Singulair] 10 mg PO DAILY #30 tab 06/23/16 Lisinopril [Zestril] 20 mg PO DAILY #30 tab 12/19/17 metFORMIN HCL [Glucophage] 500 mg PO BID #60 tab 02/10/18 Famotidine [Pepcid] 20 mg PO BID #20 tablet 02/11/18 Metoprolol Tartrate [Lopressor] 12.5 mg PO BID #0 01/19/19 Allergies Allergy/AdvReac Type Severity Reaction Status Date / Time adhesive Allergy Severe Rash/Hives Verified 03/20/19 21:01 adhesive tape Allergy Severe Rash/Hives Verified 03/20/19 21:01 fentanyl Allergy Severe Rash/Hives Verified 03/20/19 21:01 latex Allergy Severe Rash/Hives Verified 03/20/19 21:01 metoclopramide [From Reglan] Allergy Unknown Verified 03/20/19 21:01 Review of Systems ROS Statement: Those systems with pertinent positive or pertinent negative responses have been documented in the HPI. ROS Other: All systems not noted in ROS Statement are negative. Past Medical History Past Medical History: Asthma, Diabetes Mellitus, Hypertension, Musculoskeletal Disorder, Neurologic Disorder, Thyroid Disorder Additional Past Medical History / Comment(s): MS, back pain, DEGENERATIVE DISC DISEASE, optic neuritis, leukopenia (sores in mouth) History of Any Multi-Drug Resistant Organisms: C-DIFF Date of last positivie culture/infection: 2018 MDRO Source:: stool Past Surgical History: Bladder Surgery, Hernia Repair, Hysterectomy, Orthopedic Surgery, Tubal Ligation Additional Past Surgical History / Comment(s): rhinoplasty, bladder suspension, breast sx, morphine pump , RT KNEE SCOPE, TUMMY TUCK, SCS DEVICE INSERTED AND REMOVED-DOES NOT HAVE T-11 IN SPINE. Past Anesthesia/Blood Transfusion Reactions: Motion Sickness, Postoperative Nausea & Vomiting (PONV) Past Psychological History: No Psychological Hx Reported Smoking Status: Never smoker Past Alcohol Use History: None Reported Past Drug Use History: None Reported - Past Family History Father History Unknown: Yes Family Medical History: Hypertension Additional Family Medical History / Comment(s): Pt left home as a teen and does not know parents PMH Mother History Unknown: Yes Family Medical History: No Reported History, Unable to Obtain Additional Family Medical History / Comment(s): NO FAMILY HISTORY General Exam Limitations: no limitations General appearance: alert, in no apparent distress Head exam: Present: atraumatic, normocephalic Eye exam: Present: normal appearance, PERRL ENT exam: Present: mucous membranes dry Neck exam: Present: normal inspection. Absent: tenderness, meningismus Respiratory exam: Present: normal lung sounds bilaterally. Absent: respiratory distress Cardiovascular Exam: Present: normal rhythm, tachycardia GI/Abdominal exam: Present: soft, tenderness (mild generalized tenderness). Absent: distended, guarding, rebound, hernia Extremities exam: Present: normal inspection Neurological exam: Present: alert, oriented X3, CN II-XII intact. Absent: motor sensory deficit Psychiatric exam: Present: normal affect, normal mood Skin exam: Present: warm, dry, intact. Absent: cyanosis, diaphoretic Course Vital Signs 03/20/19 03/20/19 20:55 23:44 Temperature 98.3 F Pulse Rate 106 H 80 Respiratory 18 18 Rate Blood Pressure 185/128 137/93 O2 Sat by Pulse 99 98 Oximetry Medical Decision Making - Medical Decision Making 48-year-old female with generalized abdominal pain, nausea vomiting and diarrhea. Patient has mild generalized tenderness to palpation, no rebound or guarding. She isinitially hypotensive and tachycardic likely related to deh ydration and a complaints. This improves with symptomatic treatment. She has normal CBC, normal CMP, normal lactic acid. X-ray negative for obstruction or free air. She had previous intra-abdominal hernia and is concerned that she may have recurrent hernia. This is not palpable on exam however there is a 3 cm defect in the anterior abdominal wall which is soft, no erythema, no induration. CT is performed which shows a cystic accumulation within this region. No adjacent signs of infection. No hernia. No acute intra-abdominal process. she is feeling better after symptomatic treatment. She is stable for discharge. She will follow-up with her primary care physician. patient has had no episodes of vomiting or diarrhea while in the emergency department. - Lab Data Result diagrams: 03/20/19 21:46 03/20/19 21:46 Lab Results 03/20/19 03/20/19 03/20/19 Range/Units 21:46 21:46 21:46 WBC 8.5 (3.8-10.6) k/uL RBC 4.29 (3.80-5.40) m/uL Hgb 12.6 (11.4-16.0) gm/dL Hct 38.5 (34.0-46.0) % MCV 89.7 (80.0-100.0) fL MCH 29.4 (25.0-35.0) pg MCHC 32.8 (31.0-37.0) g/dL RDW 13.1 (11.5-15.5) % Plt Count 385 (150-450) k/uL Neutrophils % 65 % Lymphocytes % 23 % Monocytes % 4 % Eosinophils % 5 % Basophils % 1 % Neutrophils # 5.5 (1.3-7.7) k/uL Lymphocytes # 2.0 (1.0-4.8) k/uL Monocytes # 0.4 (0-1.0) k/uL Eosinophils # 0.4 (0-0.7) k/uL Basophils # 0.1 (0-0.2) k/uL PT (9.0-12.0) sec INR (<1.2) APTT (22.0-30.0) sec Sodium 140 (137-145) mmol/L Potassium 4.1 (3.5-5.1) mmol/L Chloride 105 (98-107) mmol/L Carbon Dioxide 26 (22-30) mmol/L Anion Gap 9 mmol/L BUN 12 (7-17) mg/dL Creatinine 0.62 (0.52-1.04) mg/dL Est GFR (CKD-EPI)AfAm >90 (>60 ml/min/1.73 sqM) Est GFR (CKD-EPI)NonAf >90 (>60 ml/min/1.73 sqM) Glucose 122 H (74-99) mg/dL Plasma Lactic Acid Antoni 1.1 (0.7-2.0) mmol/L Calcium 9.4 (8.4-10.2) mg/dL Total Bilirubin 0.4 (0.2-1.3) mg/dL AST 25 (14-36) U/L ALT 16 (4-34) U/L Alkaline Phosphatase 67 (38-126) U/L Total Protein 6.5 (6.3-8.2) g/dL Albumin 4.0 (3.5-5.0) g/dL Amylase 54 (30-110) U/L Lipase 23 (23-300) U/L //19 Range/Units 21:46 WBC (3.8-10.6) k/uL RBC (3.80-5.40) m/uL Hgb (11.4-16.0) gm/dL Hct (34.0-46.0) % MCV (80.0-100.0) fL MCH (25.0-35.0) pg MCHC (31.0-37.0) g/dL RDW (11.5-15.5) % Plt Count (150-450) k/uL Neutrophils % % Lymphocytes % % Monocytes % % Eosinophils % % Basophils % % Neutrophils # (1.3-7.7) k/uL Lymphocytes # (1.0-4.8) k/uL Monocytes # (0-1.0) k/uL Eosinophils # (0-0.7) k/uL Basophils # (0-0.2) k/uL PT 9.6 (9.0-12.0) sec INR 0.9 (<1.2) APTT 23.4 (22.0-30.0) sec Sodium (137-145) mmol/L Potassium (3.5-5.1) mmol/L Chloride (98-107) mmol/L Carbon Dioxide (22-30) mmol/L Anion Gap mmol/L BUN (7-17) mg/dL Creatinine (0.52-1.04) mg/dL Est GFR (CKD-EPI)AfAm (>60 ml/min/1.73 sqM) Est GFR (CKD-EPI)NonAf (>60 ml/min/1.73 sqM) Glucose (74-99) mg/dL Plasma Lactic Acid Antoni (0.7-2.0) mmol/L Calcium (8.4-10.2) mg/dL Total Bilirubin (0.2-1.3) mg/dL AST (14-36) U/L ALT (4-34) U/L Alkaline Phosphatase (38-126) U/L Total Protein (6.3-8.2) g/dL Albumin (3.5-5.0) g/dL Amylase (30-110) U/L Lipase (23-300) U/L Disposition Clinical Impression: Abdominal pain, Nausea and vomiting, Diarrhea Disposition: HOME SELF-CARE Condition: Good Instructions (If sedation given, give patient instructions): Acute Nausea and Vomiting (ED), Abdominal Pain (ED) Is patient prescribed a controlled substance at d/c from ED?: No Referrals: Viola Serrano MD [Primary Care Provider] - 1-2 days Time of Disposition: 00:07
[2019-03-20 21:58] LABS: Basophils # (A) 0.1 k/uL (0-0.2); Basophils % (A) 1 %; Eosinophils # (A) 0.4 k/uL (0-0.7); Eosinophils % (A) 5 %; HCT 38.5 % (34.0-46.0); HGB 12.6 gm/dL (11.4-16.0); Lymphocytes % (A) 23 %; MCH 29.4 pg (25.0-35.0); MCHC 32.8 g/dL (31.0-37.0); MCV 89.7 fL (80.0-100.0); Mean Platelet Volume 7.3; Monocytes # (A) 0.4 k/uL (0-1.0); Monocytes % (A) 4 %; Neutrophils # (A) 5.5 k/uL (1.3-7.7); Neutrophils % (A) 65 %; Platelet Count 385 k/uL (150-450); RBC 4.29 m/uL (3.80-5.40); RDW 13.1 % (11.5-15.5); WBC 8.5 k/uL (3.8-10.6)
[2019-03-20] MEDS ORDERED: diphenhydrAMINE 50 MG/ML 1 ML VIAL IVP STA (22:06)
[2019-03-20 22:08] LABS: INR 0.9 (<1.2); Partial Thromboplastin Time 23.4 sec (22.0-30.0); Prothrombin Time 9.6 sec (9.0-12.0)
[2019-03-20 22:09] LABS: ALT 16 U/L (4-34); AST 25 U/L (14-36); African American GFR (CKD) >90 (>60 ml/min/1.73 sqM); Alkaline Phosphatase 67 U/L (38-126); Amylase 54 U/L (30-110); Anion Gap 9 mmol/L; Blood Urea Nitrogen 12 mg/dL (7-17); Calcium 9.4 mg/dL (8.4-10.2); Carbon Dioxide 26 mmol/L (22-30); Chloride 105 mmol/L (98-107); Glucose 122 mg/dL (74-99); Non-African American GFR(CKD) >90 (>60 ml/min/1.73 sqM); Potassium 4.1 mmol/L (3.5-5.1); Sodium 140 mmol/L (137-145); Total Bilirubin 0.4 mg/dL (0.2-1.3); Total Protein 6.5 g/dL (6.3-8.2)
--- NOTE | 2019-03-20 22:34 | XR ---
EXAMINATION TYPE: XR KUB DATE OF EXAM: 03/20/2019 COMPARISON: 06/15/2017 HISTORY: Gastroparesis TECHNIQUE: 2 views FINDINGS: There is no sign of intestinal obstruction or pneumoperitoneum. Fecal pattern is normal. Sonali ng bases are clear. There are no pathologic calcifications over the kidneys. IMPRESSION: Nonacute abdomen. No change.
[2019-03-20] MEDS ORDERED: SODIUM CHLORIDE 0.9% 500 ML 500 ML IV ONE (23:00)
[2019-03-20] MEDS ORDERED: HYDROmorphone 1 MG/ML 1 ML SYRINGE IVP STA (23:00)
--- NOTE | 2019-03-20 23:44 | CT ---
EXAMINATION TYPE: CT abdomen pelvis w con DATE OF EXAM: 03/20/2019 COMPARISON: 04/02/2018 HISTORY: Patient presents with lower abdominal pain. CT DLP: 1846.9 mGycm Automated exposure control for dose reduction was used. CONTRAST: Performed with IV Contrast, patient injected with 100mL mL of Isovue 300. Lung bases are clear. There is no pleural effusion. Heart size is normal. There is no pericardial eff usion. There is small hiatal hernia. Liver spleen pancreas gallbladder appear normal. Bile ducts are not dilated. There is 2 cm cystic fluid collection at the umbilicus. There is no adrenal mass. Kidneys show satisfactory contrast opacification. There is no hydronephrosi s. Ureters are not dilated. There is no retroperitoneal adenopathy. Bladder distends smoothly. There is no inguinal hernia. There is no free fluid in the pelvis. Appendix is not seen. There is no sign o f thickened appendix. There is no mesenteric edema. There is no sign of a bowel obstruction. There is no ascites or free air. There is device implanted over the right iliac bone posteriorly. Lumbar vertebra have normal alignmen t. Disc spaces are fairly normal. There is no compression fracture. Bony pelvis is intact. IMPRESSION: No acute abnormality of the abdomen pelvis. Small umbilical cystic fluid collection could be a seroma unchanged. There is partial clearing of the subcutaneous edema over the anterior mid abdomen compare d to old exam.
[2019-03-20 23:47] VITALS: BP 137/93; PULSE 80
[2019-03-21] MEDS ORDERED: diphenhydrAMINE 50 MG/ML 1 ML VIAL IM STA (00:22)
== END 2019-03-21 00:30 | disposition home or self-care (01) ==
LOC: EC 20:46
DX: R10.84 Generalized abdominal pain (principal); R11.2 Nausea with vomiting, unspecified; R19.7 Diarrhea, unspecified; K45.8 Other specified abdominal hernia without obstruction or gangrene; I95.9 Hypotension, unspecified; R00.0 Tachycardia, unspecified; G43.909 Migraine, unspecified, not intractable, without status migrainosus; J45.909 Unspecified asthma, uncomplicated; E11.9 Type 2 diabetes mellitus without complications; I10 Essential (primary) hypertension; E07.9 Disorder of thyroid, unspecified; G35 Multiple sclerosis; H46.9 Unspecified optic neuritis; Z79.51 Long term (current) use of inhaled steroids; Z79.899 Other long term (current) drug therapy; Z79.4 Long term (current) use of insulin; Z91.048 Other nonmedicinal substance allergy status; Z88.5 Allergy status to narcotic agent; Z91.040 Latex allergy status; Z88.8 Allergy status to other drugs, medicaments and biological substances
CPT/HCPCS: 36415; 80053; 82150; 83605; 83690; 85025; 85610; 85730; 74018; 74177; 99285; 96374; 96375 ×3; 96372; 96361 ×2; J2270; J1200; J2405; J1170; Q9967

== ENCOUNTER 2019-04-29 12:51 | Inpatient (IN) | payer BC, MEDICARE ==
[2019-04-29] MEDS ORDERED: SODIUM CHLORIDE 0.9% 1,000 ML IV STA (13:46)
[2019-04-29] MEDS ORDERED: diphenhydrAMINE 50 MG/ML 1 ML VIAL IVP SCH (14:00)
--- NOTE | 2019-04-29 14:00 | ED ---
General Adult HPI - General Chief complaint: Recheck/Abnormal Lab/Rx Stated complaint: MS pain Time Seen by Provider: 04/29/19 13:22 Source: patient, family, RN notes reviewed Mode of arrival: ambulatory Limitations: no limitations - History of Present Illness Initial comments: Patient is a pleasant 48-year-old female presenting to the emergency Department with MS exacerbation. Symptoms have progressed over the past couple days. Patient is having generalized weakness and difficulty with walking. Patient does have some blurred vision. Patient has diffuse pain. Symptoms are similar to previous EMS. Patient did see her doctor who put orders for Solu-Medrol 1000 mg over 3 days. Patient states they were unable to do it at the infusion center. Patient also states that count includes the [facility] was unable to get her in. - Related Data Home Medications Medication Instructions Recorded Confirmed Albuterol Sulfate [Proair Hfa] 2 puff INHALATION RT-Q6H PRN 09/26/15 01/15/19 Atorvastatin [Lipitor] 10 mg PO DAILY 09/26/15 01/15/19 DULoxetine HCL [Cymbalta] 60 mg PO QAM 01/10/17 01/15/19 Butalb/Acetaminophen/Caffeine 1 cap PO AC-TID PRN 01/16/17 01/15/19 [Esgic 50-325-40 Capsule] Ipratropium-Albuterol Nebulize 3 ml INHALATION RT-QID PRN 01/16/17 01/15/19 [Duoneb 0.5 mg-3 mg/3 ml Soln] INSULIN LISPRO (HumaLOG) [humaLOG] See Protocol SQ ACHS PRN 01/19/17 01/15/19 Cholecalciferol [Vitamin D3 (25 1,000 unit PO MOWE 03/03/17 01/15/19 Mcg = 1000 Iu)] Baclofen [Lioresal] 20 mg PO QID 04/26/17 01/15/19 tiZANidine HCL [Zanaflex] 2 mg PO QID 06/15/17 01/15/19 Scopolamine 1.5MG/72Hr Patch 1 patch TRANSDERM Q72H 07/07/17 01/15/19 [TransDerm Scop] Acetaminophen-Codeine 300-30mg 1 tab PO TID PRN 12/05/18 01/15/19 [Tylenol w/codeine #3] Glatiramer Acetate [Copaxone] 40 mg SQ MOWEFR 12/05/18 01/15/19 Levothyroxine Sodium [Synthroid] 112 mcg PO DAILY 12/05/18 01/15/19 SUMAtriptan SUCCINATE [Sumatriptan 6 mg SQ DAILY PRN 12/05/18 01/15/19 Succinate] rOPINIRole HCL [Requip] 2 mg PO TID 12/05/18 01/15/19 Erenumab-Aooe [Aimovig 70 mg SQ Q30D 01/15/19 01/15/19 Autoinjector] Morphine Pump 0.1 dose SQ CONTINUOUS 01/15/19 01/15/19 valACYclovir HCL [Valtrex] 1,000 mg PO BID 01/15/19 01/15/19 Previous Rx's Medication Instructions Recorded Montelukast [Singulair] 10 mg PO DAILY #30 tab 06/23/16 Lisinopril [Zestril] 20 mg PO DAILY #30 tab 12/19/17 metFORMIN HCL [Glucophage] 500 mg PO BID #60 tab 02/10/18 Famotidine [Pepcid] 20 mg PO BID #20 tablet 02/11/18 Metoprolol Tartrate [Lopressor] 12.5 mg PO BID #0 01/19/19 Allergies Allergy/AdvReac Type Severity Reaction Status Date / Time adhesive Allergy Severe Rash/Hives Verified 03/20/19 21:01 adhesive tape Allergy Severe Rash/Hives Verified 03/20/19 21:01 fentanyl Allergy Severe Rash/Hives Verified 03/20/19 21:01 latex Allergy Severe Rash/Hives Verified 03/20/19 21:01 metoclopramide [From Reglan] Allergy Unknown Verified 03/20/19 21:01 Review of Systems ROS Statement: Those systems with pertinent positive or pertinent negative responses have been documented in the HPI. ROS Other: All systems not noted in ROS Statement are negative. Constitutional: Denies: fever Eyes: Reports: vision change ENT: Denies: ear pain Respiratory: Denies: cough Cardiovascular: Denies: chest pain Endocrine: Reports: fatigue Gastrointestinal: Reports: abdominal pain Genitourinary: Denies: dysuria Musculoskeletal: Reports: back pain Skin: Reports: rash Neurological: Reports: weakness Past Medical History Past Medical History: Asthma, Diabetes Mellitus, Hypertension, Musculoskeletal Disorder, Neurologic Disorder, Thyroid Disorder Additional Past Medical History / Comment(s): MS, back pain, DEGENERATIVE DISC DISEASE, optic neuritis, leukopenia (sores in mouth) History of Any Multi-Drug Resistant Organisms: C-DIFF Date of last positivie culture/infection: 2018 MDRO Source:: stool Past Surgical History: Bladder Surgery, Hernia Repair, Hysterectomy, Orthopedic Surgery, Tubal Ligation Additional Past Surgical History / Comment(s): rhinoplasty, bladder suspension, breast sx, morphine pump , RT KNEE SCOPE, TUMMY TUCK, SCS DEVICE INSERTED AND REMOVED-DOES NOT HAVE T-11 IN SPINE. Past Anesthesia/Blood Transfusion Reactions: Motion Sickness, Postoperative Nausea & Vomiting (PONV) Past Psychological History: No Psychological Hx Reported Smoking Status: Never smoker Past Alcohol Use History: None Reported Past Drug Use History: None Reported - Past Family History Father History Unknown: Yes Family Medical History: Hypertension Additional Family Medical History / Comment(s): Pt left home as a teen and does not know parents PMH Mother History Unknown: Yes Family Medical History: No Reported History, Unable to Obtain Additional Family Medical History / Comment(s): NO FAMILY HISTORY General Exam Limitations: no limitations General appearance: alert, in no apparent distress Head exam: Present: normocephalic Eye exam: Present: normal appearance, PERRL ENT exam: Present: normal oropharynx Neck exam: Present: normal inspection Respiratory exam: Present: normal lung sounds bilaterally Cardiovascular Exam: Present: regular rate, normal rhythm GI/Abdominal exam: Present: soft. Absent: tenderness Extremities exam: Present: normal inspection Neurological exam: Present: alert Psychiatric exam: Present: normal affect, normal mood Skin exam: Present: other (Patient has a couple diffuse macules with some tenderness.) Course Vital Signs 04/29/19 12:59 Temperature 98.2 F Pulse Rate 105 H Respiratory 18 Rate Blood Pressure 157/82 O2 Sat by Pulse 99 Oximetry Medical Decision Making - Medical Decision Making Case discussed with Dr. Aguirre, who will admit covering for Dr. Ferreira, who admits for Dr. Briscoe. Patient updated. - Lab Data Result diagrams: 04/29/19 14:15 Lab Results 04/29/19 04/29/19 Range/Units 14:15 14:30 WBC 8.8 (3.8-10.6) k/uL RBC 4.82 (3.80-5.40) m/uL Hgb 13.4 (11.4-16.0) gm/dL Hct 41.3 (34.0-46.0) % MCV 85.8 (80.0-100.0) fL MCH 27.7 (25.0-35.0) pg MCHC 32.3 (31.0-37.0) g/dL RDW 13.2 (11.5-15.5) % Plt Count 493 H (150-450) k/uL Neutrophils % 71 % Lymphocytes % 20 % Monocytes % 4 % Eosinophils % 3 % Basophils % 1 % Neutrophils # 6.2 (1.3-7.7) k/uL Lymphocytes # 1.8 (1.0-4.8) k/uL Monocytes # 0.4 (0-1.0) k/uL Eosinophils # 0.3 (0-0.7) k/uL Basophils # 0.1 (0-0.2) k/uL POC Glucose (mg/dL) 114 H (75-99) mg/dL POC Glu Cable Tender ID Jael Braun Disposition Clinical Impression: Multiple sclerosis Disposition: ADMITTED IP TO THIS HOSP Is patient prescribed a controlled substance at d/c from ED?: No Referrals: Viola Serrano MD [Primary Care Provider] - 1-2 days Decision Time: 14:40
[2019-04-29 14:29] LABS: Basophils # (A) 0.1 k/uL (0-0.2); Basophils % (A) 1 %; Eosinophils # (A) 0.3 k/uL (0-0.7); Eosinophils % (A) 3 %; HCT 41.3 % (34.0-46.0); HGB 13.4 gm/dL (11.4-16.0); Lymphocytes # (A) 1.8 k/uL (1.0-4.8); Lymphocytes % (A) 20 %; MCH 27.7 pg (25.0-35.0); MCHC 32.3 g/dL (31.0-37.0); MCV 85.8 fL (80.0-100.0); Monocytes # (A) 0.4 k/uL (0-1.0); Monocytes % (A) 4 %; Neutrophils # (A) 6.2 k/uL (1.3-7.7); Neutrophils % (A) 71 %; Platelet Count 493 k/uL (150-450); RBC 4.82 m/uL (3.80-5.40); RDW 13.2 % (11.5-15.5); WBC 8.8 k/uL (3.8-10.6)
[2019-04-29] MEDS: FAMOTIDINE 20 MG/2 ML VIAL IV SCH (14:31)
[2019-04-29 14:36] LABS: Glucose,Whole Blood 114 mg/dL (75-99)
[2019-04-29 14:41] LABS: ALT 12 U/L (4-34); AST 19 U/L (14-36); African American GFR (CKD) >90 (>60 ml/min/1.73 sqM); Alkaline Phosphatase 71 U/L (38-126); Anion Gap 9 mmol/L; Blood Urea Nitrogen 12 mg/dL (7-17); Calcium 9.5 mg/dL (8.4-10.2); Carbon Dioxide 26 mmol/L (22-30); Chloride 105 mmol/L (98-107); Glucose 125 mg/dL (74-99); Non-African American GFR(CKD) >90 (>60 ml/min/1.73 sqM); Potassium 4.1 mmol/L (3.5-5.1); Sodium 140 mmol/L (137-145); Total Bilirubin 0.4 mg/dL (0.2-1.3); Total Protein 6.5 g/dL (6.3-8.2)
[2019-04-29] MEDS ORDERED: NALOXONE 0.4 MG/ML 1 ML VIAL IV PRN (14:41)
[2019-04-29 14:58] LABS: T4, Free (Free Thyroxine) 0.82 ng/dL (0.78-2.19)
[2019-04-29] MEDS ORDERED: methylPREDNISolone SOD SUCC 1,000 MG in SODIUM CHLORIDE 0.9% 250 ML IVPB ONE (15:00)
[2019-04-29] MEDS: SODIUM CHLORIDE 0.9% 1,000 ML IV SCH (15:06)
[2019-04-29 17:22] LABS: Glucose,Whole Blood 170 mg/dL (75-99)
[2019-04-29] MEDS ORDERED: ALBUTEROL INHALER 60 PUFF/8 GM INHALER INHALATION PRN (17:55)
[2019-04-29] MEDS ORDERED: SUMAtriptan SUCCINATE 6 MG/0.5 ML VIAL SQ PRN (17:55)
[2019-04-29] MEDS ORDERED: IPRATROPIUM-ALBUTEROL 3 ML NEB INHALATION PRN (17:55)
[2019-04-29] MEDS ORDERED: TEMAZEPAM 15 MG CAP PO PRN (17:57)
[2019-04-29] MEDS ORDERED: NON FORMULARY DRUG (Omeprazole 20 MG) PO SCH (18:00)
[2019-04-29] MEDS: INSULIN ASPART (NovoLOG) 100 UNIT/ML VIAL SQ SCH ×2 (18:04→20:27)
[2019-04-29] MEDS: NON FORMULARY DRUG (Glatiramer Acetate [Copaxone] 40 MG) SQ SCH (18:13)
[2019-04-29] MEDS: MORPHINE PUMP SQ SCH (18:14)
[2019-04-29] MEDS: Acetaminophen-Codeine 300-30mg TAB PO PRN (18:18)
[2019-04-29] MEDS: BACLOFEN 10 MG TAB PO SCH ×2 (18:18→21:40)
[2019-04-29] MEDS: tiZANidine 4 MG TAB PO SCH ×2 (19:08→23:40)
[2019-04-29] MEDS: KETOROLAC 30 MG/ML 1 ML VIAL IVP PRN (19:08)
[2019-04-29 20:08] LABS: Glucose,Whole Blood 354 mg/dL (75-99)
[2019-04-29] MEDS: METOPROLOL TARTRATE 12.5 MG TAB PO SCH (20:26)
[2019-04-29] MEDS: metFORMIN 500 MG TAB PO SCH (20:26)
[2019-04-29] MEDS: HEPARIN SODIUM,PORCINE 5,000 UNIT/ML 1 ML VIAL SQ SCH (20:27)
[2019-04-29] MEDS: diphenhydrAMINE 50 MG/ML 1 ML VIAL IVP PRN (20:27)
--- NOTE | 2019-04-29 22:50 | HP ---
HISTORY AND PHYSICAL CHIEF COMPLAINTS: Weakness and diffuse aches and pains. HISTORY OF PRESENT ILLNESS: This 48-year-old woman with a past medical history of multiple medical problems including asthma, diabetes, hypertension, history of DJD, history of multiple sclerosis, being followed by Dr. Serrano and Dr. No in the outpatient setting is being evaluated in the outpatient setting recently. The patient is complaining of diffuse aches and pains and weakness. 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 Patient also had difficulty in getting up. Indicates some proximal muscle weakness. The patient also had painful bumps all over the body especially the palms and the hand also. Dr. No is evaluating the patient in the outpatient setting. However, MRI of the brain could not be done because of the lack of IV access and Dr. No recommended Solu-Medrol 1000 mg IV b.i.d. and the patient directed to [facility] emergency room. The patient came to [facility] emergency Room and was admitted for further evaluation and treatment. There is no history of fever, rigors or chills. No history of headache, loss of seizures. The platelets were slightly increased to 493. Sugars also increased. TSH is 5.13, 5.310. PAST MEDICAL HISTORY: History of multiple sclerosis, history of asthma, diabetes mellitus, hypertension, history of DJD, history of C difficile colitis. MEDICATIONS: Home medications are: 1. Scopolamine patch daily q.72h hours. 2. Baclofen 20 mg p.o. q.i.d. 3. DuoNeb q.i.d. and p.r.n. 4. Humalog scale. 5. Copaxone 40 mg subcu Monday, Monday, Monday. 6. Vitamin D3 1000 units daily. 7. ProAir HFA 2 puffs q.6h p.r.n. 8. Lipitor 10 mg p.o. daily. 9. Requip 2 mg p.o. t.i.d. 10.Sumatriptan 6 mg p.o. daily p.r.n. 11.Zanaflex 2 mg p.o. q.i.d. 12.Prilosec 20 mg p.o. daily. 13.Synthroid 112 mcg p.o. daily. 14.Cymbalta 60 mg q.a.m. 15.Morphine pump. 16.Tylenol No.3. 17.Singulair 10 mg p.o. daily. 18.Zestril 20 mg. 19.Glucophage 500 mg p.o. b.i.d. 20.Lopressor 12.5 mg p.o. b.i.d. ALLERGIES: ADHESIVE TAPE, FENTANYL, LATEX, REGLAN. FAMILY HISTORY: History of hypertension in the family. SOCIAL HISTORY: No history of smoking. No history of alcohol intake. REVIEW OF SYSTEMS: ENT: No diminished vision. No diminished hearing. CARDIOVASCULAR: No angina or palpitations. RESPIRATORY: No cough. No hemoptysis. GI no nausea or vomiting. no dysuria. Nervous System as mentioned earlier. ALLERGIES/IMMUNOLOGY: No asthma or hayfever. MUSCULOSKELETAL as mentioned earlier. HEMATOLOGY/ONCOLOGY: No history of anemia. ENDOCRINE: As mentioned earlier. CONSTITUTIONAL: As mentioned earlier. DERMATOLOGY negative. RHEUMATOLOGY: Negative. PSYCHIATRIC: As mentioned earlier. PHYSICAL EXAMINATION: Alert and oriented times three. Pulse is 85. Blood pressure 135/82, respiration 18, temperature 98.1, pulse ox 98% on room air. HEENT: Conjunctivae normal. Oral mucosa moist. NECK is no jugular venous distention. No carotid bruit. No lymph node enlargement. Cardiovascular system: S1, S2 muffled. No S3, no S4. RESPIRATORY: Breath sounds diminished in the bases. No rhonchi. No crackles. ABDOMEN: Soft, obese, nontender. No mass palpable. LEGS: No edema. No swelling. NERVOUS SYSTEM: Higher functions as mentioned earlier. Moves all 4 limbs. Mild diffuse weakness present. No wasting appreciated. Significant tenderness also noted especially in the subcutaneous nodules in the arms and both forearms also. SKIN: No ulcer, no rash, no bleeding. JOINTS: No active deforming arthropathy. LYMPHATICS: No lymph nodes palpable in the neck, axillae or groin. LABS: WBC 8.2, hemoglobin 13.4, platelets 493. Glucose 125. TSH 5.310. ASSESSMENT: 1. Acute multiple sclerosis, acute exacerbation. 2. Diffuse aches and pains. 3. Chronic pain syndrome with acute on chronic pain syndrome. 4. Diabetes mellitus type 2. 5. Obesity with body mass index 36.5. 6. History of asthma. 7. History of hypertension. 8. History of degenerative joint disease. 9. History of hypothyroidism. 10.History of back pain. 11.History of optic neuritis. 12.History of leukopenia. 13.History of Clostridium difficile colitis. 14.Mild thrombocytosis. 15.Increased TSH with normal free T3, and free T4. PLAN AND DISCUSSION: This 48-year-old woman who presented with multiple complex medical issues, at this time, I recommend continue the current medications, continue symptomatic treatment. Otherwise, at this time I would recommend high-dose IV steroids and monitor blood sugars closely. If the blood sugars are going more than 300, I would recommend insulin drip to control blood sugars. DVT prophylaxis. Symptomatic treatment of the pain. Patient already had pain pump which was renewed today. We will continue to monitor p.r.n. Benadryl can be used. See orders for details. Resume the home medications. DVT prophylaxis. Prognosis guarded because of multiple complex medical issues. I recommend the patient follow up with closely with primary physician and as well as the neurologist in outpatient setting. Repeat labs have been ordered. Discussed with staff. Discussed with the patient's family at the bedside. Copy of this dictation being forwarded to Dr. Viola Serrano who is the primary physician. MMODL / IJN: [id number] /
[2019-04-29 23:09] LABS: Appearance,Urine Clear (Clear); Bilirubin,Urine Negative (Negative); Blood,Urine Negative (Negative); Color,Urine Yellow; Glucose,Urine (UA) 4+ (Negative); Ketones,Urine 1+ (Negative); Leukocyte Esterase,Urine Negative (Negative); Nitrite,Urine Negative (Negative); Protein,Urine Trace (Negative); Urobilinogen,Urine <2.0 mg/dL (<2.0)
[2019-04-29] MEDS: ONDANSETRON 4 MG/2 ML VIAL IVP PRN (23:41)
[2019-04-30] MEDS: Acetaminophen-Codeine 300-30mg TAB PO PRN ×3 (02:32→15:28)
[2019-04-30] MEDS: diphenhydrAMINE 50 MG/ML 1 ML VIAL IVP PRN ×4 (02:33→21:29)
[2019-04-30] MEDS: KETOROLAC 30 MG/ML 1 ML VIAL IVP PRN ×4 (02:33→21:29)
[2019-04-30] MEDS: LEVOTHYROXINE 112 MCG TAB PO SCH (05:52)
[2019-04-30] MEDS: methylPREDNISolone SOD SUCC 1,000 MG in SODIUM CHLORIDE 0.9% 250 ML IVPB SCH ×2 (05:52→17:26)
[2019-04-30 06:50] LABS: Glucose,Whole Blood 288 mg/dL (75-99)
[2019-04-30] MEDS: INSULIN ASPART (NovoLOG) 100 UNIT/ML VIAL SQ SCH ×4 (07:51→21:25)
[2019-04-30] MEDS: PANTOPRAZOLE 40 MG TABLET PO SCH (07:52)
[2019-04-30] MEDS: FAMOTIDINE 20 MG/2 ML VIAL IV SCH (08:45)
[2019-04-30] MEDS: ONDANSETRON 4 MG/2 ML VIAL IVP PRN ×2 (08:46→14:47)
[2019-04-30] MEDS ORDERED: methylPREDNISolone SOD SUCC 1,000 MG in SODIUM CHLORIDE 0.9% 250 ML IVPB SCH (09:00)
[2019-04-30 09:39] LABS: Basophils # (A) 0.1 k/uL (0-0.2); Basophils % (A) 1 %; Eosinophils # (A) 0.1 k/uL (0-0.7); Eosinophils % (A) 0 %; HCT 40.8 % (34.0-46.0); HGB 13.1 gm/dL (11.4-16.0); Lymphocytes # (A) 1.3 k/uL (1.0-4.8); Lymphocytes % (A) 6 %; MCH 28.5 pg (25.0-35.0); MCHC 32.1 g/dL (31.0-37.0); MCV 88.9 fL (80.0-100.0); Mean Platelet Volume 7.9; Monocytes # (A) 0.2 k/uL (0-1.0); Monocytes % (A) 1 %; Neutrophils # (A) 18.6 k/uL (1.3-7.7); Neutrophils % (A) 92 %; Platelet Count 424 k/uL (150-450); RBC 4.59 m/uL (3.80-5.40); RDW 13.4 % (11.5-15.5); WBC 20.3 k/uL (3.8-10.6)
[2019-04-30 10:31] LABS: African American GFR (CKD) >90 (>60 ml/min/1.73 sqM); Anion Gap 16 mmol/L; Blood Urea Nitrogen 21 mg/dL (7-17); Calcium 9.4 mg/dL (8.4-10.2); Carbon Dioxide 16 mmol/L (22-30); Chloride 109 mmol/L (98-107); Glucose 263 mg/dL (74-99); Non-African American GFR(CKD) >90 (>60 ml/min/1.73 sqM); Potassium 4.6 mmol/L (3.5-5.1); Sodium 141 mmol/L (137-145)
[2019-04-30 11:12] LABS: Glucose,Whole Blood 207 mg/dL (75-99)
[2019-04-30] MEDS: HEPARIN SODIUM,PORCINE 5,000 UNIT/ML 1 ML VIAL SQ SCH ×2 (11:36→21:25)
[2019-04-30] MEDS: MONTELUKAST 10 MG TAB PO SCH (11:37)
[2019-04-30] MEDS: METOPROLOL TARTRATE 12.5 MG TAB PO SCH ×2 (11:37→21:24)
[2019-04-30] MEDS: tiZANidine 4 MG TAB PO SCH ×4 (11:38→21:25)
[2019-04-30] MEDS: DULoxetine HCL 60 MG CAPSULE.DR PO SCH (11:39)
[2019-04-30] MEDS: metFORMIN 500 MG TAB PO SCH ×2 (11:39→21:25)
[2019-04-30] MEDS: CHOLECALCIFEROL 1,000 UNIT TAB PO SCH (11:39)
[2019-04-30] MEDS: BACLOFEN 10 MG TAB PO SCH ×4 (11:39→21:25)
[2019-04-30] MEDS: SCOPOLAMINE 1.5MG/72HR PATCH TRANSDERM SCH (11:40)
[2019-04-30] MEDS: ATORVASTATIN 10 MG TAB PO SCH (11:40)
[2019-04-30] MEDS: LISINOPRIL 20 MG TAB PO SCH (11:40)
[2019-04-30] MEDS ORDERED: diphenhydrAMINE 25 MG CAP PO PRN (12:33)
[2019-04-30] MEDS: SODIUM CHLORIDE 0.9% 1,000 ML IV SCH (14:28)
[2019-04-30 16:49] LABS: Glucose,Whole Blood 202 mg/dL (75-99)
--- NOTE | 2019-04-30 17:01 | XR ---
EXAMINATION TYPE: XR chest 1V portable DATE OF EXAM: 04/30/2019 COMPARISON: 03/31/2018 HISTORY: Short of breath. Heart failure. TECHNIQUE: FINDINGS: A single view of the chest shows a normal heart and mediastinum. Lungs are clear. Diaphragm is normal. Bony thorax is intact. IMPRESSION: Normal chest. No change compared to old exam. No heart failure seen.
[2019-04-30] MEDS: MORPHINE PUMP SQ SCH (17:20)
--- NOTE | 2019-04-30 18:58 | PN ---
PROGRESS NOTE DATE OF SERVICE: 04/30/2019 This 48-year-old woman with a past medical history of multiple medical problems was admitted with AMS, acute exacerbation. Patient was started on high-dose IV steroids. Patient is being closely monitored. Patient is also complaining of upper abdominal discomfort at this time. The patient apparently had an outpatient appointment with Dr. Gage for evaluation of the abdominal pain as well as evaluation of hernia, according to her. No chest pain. No palpitations. Past medical history reviewed. REVIEW OF SYSTEMS: CARDIOVASCULAR SYSTEM: No angina. RESPIRATORY SYSTEM: As mentioned earlier. GI: As mentioned earlier. : No dysuria or retention. NERVOUS SYSTEM: As mentioned earlier. CURRENT MEDICATIONS: Reviewed. They include: 1. Tylenol No.3. 2. Lipitor 10 mg p.o. daily. 3. Lioresal 20 mg p.o. q.i.d. 4. Vitamin D3. 5. Benadryl. 6. Cymbalta 60 mg each morning. 7. Pepcid 20 mg daily. 8. Heparin 5000 units subcutaneously b.i.d. 9. Toradol p.r.n. 10.Synthroid 112 mcg. 11.Pain pump. 12.Zestril 20 mg p.o. daily. 13.Glucophage. 15.Lopressor. 16.Singulair 10 mg p.o. daily. 17.Narcan. 18.Morphine pump. 19.Zofran. 20.Protonix 40 mg daily. 21.Requip 2 mg p.o. t.i.d. 22.Imitrex 6 mg p.o. daily. 23.Restoril. 24.Zanaflex. PHYSICAL EXAMINATION: Patient is alert and oriented x3. Pulse 83, blood pressure 113/60, respiration 17, temperature 98.3, pulse ox 92% on room air. HEENT: Conjunctivae normal. NECK: No jugular venous distention. CARDIOVASCULAR SYSTEM: S1, S2 muffled. RESPIRATORY SYSTEM: Breath sounds diminished at the bases. No rhonchi. No crackles. ABDOMEN: Soft. Minimal diffuse discomfort. Otherwise, no guarding. No rigidity. No mass palpable. LEGS: No edema. No swelling. NERVOUS SYSTEM: Higher functions as mentioned earlier. Diffuse weakness present. LYMPHATICS: No lymph node palpable in neck, axillae or groin. LABS: WBC 20.3, sodium 141, potassium 4.6. Accu-Cheks are 288, 263, 207. ASSESSMENT: 1. Acute multiple sclerosis, acute exacerbation. 2. Diffuse aches and pains. 3. Chronic pain syndrome with acute on chronic pain syndrome. 4. Diabetes mellitus, type 2, uncontrolled, with hyperglycemia. 5. Obesity with a body mass index of 36.5. 6. History of asthma. 7. History of hypertension. 8. Degenerative joint disease. 9. Hypothyroidism. 10.Back pain. 11.History of optic neuritis. 12.History of leukopenia. 13.History of Clostridium difficile colitis. 14.Mild thrombocytosis. 15.Increased TSH with normal free T3 and free T4. RECOMMENDATIONS AND DISCUSSION: I recommend to continue the current medications, continue with the monitoring, symptomatic treatment. Continue with the high-dose IV steroids. Otherwise, add proton pump inhibitors. I would recommend Protonix IV twice daily. Otherwise, continue to monitor. Monitor blood sugars closely. DVT prophylaxis. Continue the rest of the medications. See orders for further details. Symptomatic treatment. to be continued. Further recommendations to follow. MMODL / IJN: [id number] / MTDD
--- NOTE | 2019-04-30 19:41 | P.CNNES ---
History of Present Illness Consult date: 04/30/19 Reason for Consult: MS exacerbation History of Present Illness: HISTORY OF PRESENT ILLNESS: Thank you for allowing me to evaluate Ms. Peyton Braun. Ms. Braun is a 48 year-old woman with PMhx of Asthma, Diabetes Mellitus, Hypertension, hypothyroidism, Multiple Sclerosis, back pain, DEGENERATIVE DISC DISEASE, optic neuritis, leukopenia (sores in mouth), who presented to [facility] for generalized weakness and difficulty with walking, which is a common manifestation of her MS exacerbation. Patient states that she has been having these symptoms since about 1.5 weeks ago, saw Dr. No, and he wanted to get MRI brain w and w/o contrast, but they could not get an IV in. It sounds that patient also got MRI c-spine, but without contrast. Patient is reporting pain all over, which has improved, but still there. Patient asking if she can get MRI of her back with contrast as she has never gotten it before. 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 Denies any recent sickness, fever, nausea, vomiting, headache, coughing, diarrhea, constipation. Patient is still on copaxone for MS along with morphine pump and baclofen. From previous neuro consult note on 01/2019: 48-year-old female, who was diagnosed with MS in 2009, currently follows up with Dr. Wilkinson. Patient currently is taking Copaxone generic 40 mg 3 times a week. She has previously failed Ocrevus, Aubagio, Gilenya due to possible side effects. Patient is JCV positive with index value 3.11, therefore cannot try Tysabri. Patient frequently gets MS flare ups. Patient states that since 01/10/2019, she has been noticing "MS hugs" pointing to her upper abdominal region. She is getting spasms in the legs, numbness and tingling in the feet and legs. Patient went to see her neurologist, who did not have any opening for Solu-Medrol infusions at his office, therefore is recommended to go to the hospital for admission for MS exacerbation. Patient states that whenever she is hospitalized, she has to have an IV line, an d Tegaderm or any tape on even Band-Aids produces significant rash and ALLERGIES. She therefore requires Benadryl 50 mg IV every 6 hours to prevent rash. Patient states that this has been consistently given to her with previous admissions. She also needs pain medications, as she takes Tylenol 3 at home. She is asking for morphine although she does have a morphine pump in place. Patient was recently admitted to the hospital on 12/06/2018 for intractable headaches. Patient states that she has been started on Aimovig injections by her neurologist. Patient's last MRI of the cervical spine with and without contrast from 10/23/2017 was normal. MRI of the brain showed no acute intracranial process. There are 25 mm or less white matter lesions with no evidence of enhancement. Findings are nonspecific. Her last B6 level was borderline 5, B12 453, folate 10.2. Vitamin D was slightly elevated 87. Her last hemoglobin A1c 6.5 on 04/01/2018. I do not see any spinal fluid results in the system. Review of Systems: Multiple including headache, numbness tingling, pain, rashes, ALLERGIES, weakness, dizziness. No blood pressure. Pain, aching. Arthralgias. Denies any loss of control of bowels or bladder. Joint pain, swelling, abdominal pain. Possible anxiety depression. PAST MEDICAL HISTORY: Asthma, Diabetes Mellitus, Hypertension, hypothyroidism, Multiple Sclerosis, back pain, DEGENERATIVE DISC DISEASE, optic neuritis, leukopenia (sores in mouth) PAST SURGICAL HISTORY: Bladder suspension, Hernia Repair, Hysterectomy, T11 spine surgery, R knee scope, breast surgery Tubal Ligation HOME MEDICATIONS: Atorvastatin, albuterol, singulair, duloxetime, duoneb, insulin, vitamin D, tizanidine, scopolamine, lisinopril, metformin, copaxone, ropinirole, levothyroxine, sumatriptan, aimovig, metoprolol, omeprazole baclofen ALLERGIES: adhesive, fentanl, latex, metoclopramide SOCIAL HISTORY: Never smoker. FAMILY HISTORY: Pt left home as a teen and does not know parents PMH REVIEW OF SYSTEMS: The 14 systems are reviewed and no additional points are identified compared to the review of systems documented history and physical PHYSICAL EXAMINATION: VITAL SIGNS: T 98.5 HR 80 RR 20 BP 122/63 O2 sat 92% on RA GEN.: NAD, pleasant and cooperative HEENT: NCAT, sclera without icterus NECK: Supple SKIN AND EXTREMITIES: Warm to touch, no edema NEURO: MENTAL STATUS: Patient alert and oriented to self, place, time. Able to name the current president. Speech fluent, able to name and repeat, following all commands readily. CRANIAL NERVES II THROUGH XII: II: Pupils are equal and reactive to light symmetrically. Visual leung are intact to confrontation. No red color desaturation. III, IV, : No ptosis. Extraocular movements full. No nystagmus. No pain with eye movement. V: Facial sensation intact from V1-3. VII. No clear facial asymmetry. VIII: Hearing intact to finger rub bilaterally. IX, X: Symmetric palate elevation. XI: Shoulder shrug intact. XII: Tongue midline without fasciculation or atrophy. MOTOR: Normal bulk/tone. No pronator drift or tremor. Strength is 5/5 throughout all 4 extremities but at times, patient showing L hand and L foot weakness that is not consistent SENSORY: Intact to light touch in all 4 extremities. REFLEXES: 2+ throughout. Toes are downgoing. No clonus. Marisol's is present COORDINATION: Finger to nose intact. No dysmetria. GAIT: not assessed DIAGNOSTIC TESTING: LABORATORY: WBC 20.3 Hgb 13.1 Platelet 424 Na 141 K 4.6 Cl 109 CO2 16 BUN 21 Cr 0.73 glucose 263 urinarlysis negative for NE and nitrite. r+ glucose and 1+ ketones IMAGING: No brain imaging obtained during this admission ASSESSMENT: 48 year-old woman with PMhx of Asthma, Diabetes Mellitus, Hypertension, hypothyroidism, Multiple Sclerosis, back pain, DDD, optic neuritis, leukopenia (sores in mouth), who presented to [facility] for generalized weakness and difficulty with walking, which is a common manifestation of her MS exacerbation. On review of MRI brain w/ and w/o contrast from 2018, patient with 2 lesions, one in R cerebellum and one in the L parietal white matter, diagnosis of MS difficult to make. Patient reports having diagnosed in 2008. Patient's outpatient neurologist, Dr. No, had written prescription for patient to receive steroids for concern for MS exacerbation. RECOMMENDATIONS: 1. c/w IV steroids 2. c/w PPI and glucose checks 3. will call Dr. No's office to ask about patient's diagnosis; will consider MRI after discussion 4. Neurology will continue to follow. Past Medical History Past Medical History: Asthma, Diabetes Mellitus, Hypertension, Musculoskeletal Disorder, Neurologic Disorder, Thyroid Disorder Additional Past Medical History / Comment(s): MS, back pain, DEGENERATIVE DISC DISEASE, optic neuritis, leukopenia (sores in mouth) migraines History of Any Multi-Drug Resistant Organisms: C-DIFF Date of last positivie culture/infection: 2018 MDRO Source:: stool Past Surgical History: Bladder Surgery, Hernia Repair, Hysterectomy, Orthopedic Surgery, Tubal Ligation Additional Past Surgical History / Comment(s): rhinoplasty, bladder suspension, breast sx, morphine pump , RT KNEE SCOPE, TUMMY TUCK, SCS DEVICE INSERTED AND REMOVED-DOES NOT HAVE T-11 IN SPINE. Past Anesthesia/Blood Transfusion Reactions: Motion Sickness, Postoperative Nausea & Vomiting (PONV) Past Psychological History: No Psychological Hx Reported Additional Psychological History / Comment(s): Pt resides with her spouse and a 16 yr old mindy. She has a glucometer. She is independent. Smoking Status: Never smoker Past Alcohol Use History: None Reported Past Drug Use History: None Reported - Past Family History Father History Unknown: Yes Family Medical History: Hypertension Additional Family Medical History / Comment(s): Pt left home as a teen and does not know parents PMH Mother History Unknown: Yes Family Medical History: No Reported History, Unable to Obtain Additional Family Medical History / Comment(s): NO FAMILY HISTORY Medications and Allergies Home Medications Medication Instructions Recorded Confirmed Type Albuterol Sulfate [Proair Hfa] 2 puff INHALATION RT-Q6H PRN 09/26/15 04/29/19 History Atorvastatin [Lipitor] 10 mg PO DAILY 09/26/15 04/29/19 History Montelukast [Singulair] 10 mg PO DAILY #30 tab 06/23/16 04/29/19 Rx DULoxetine HCL [Cymbalta] 60 mg PO QAM 01/10/17 04/29/19 History Ipratropium-Albuterol Nebulize 3 ml INHALATION RT-QID PRN 01/16/17 04/29/19 History [Duoneb 0.5 mg-3 mg/3 ml Soln] INSULIN LISPRO (HumaLOG) [humaLOG] See Protocol SQ ACHS PRN 01/19/17 04/29/19 History Cholecalciferol [Vitamin D3 (25 1,000 unit PO DAILY 03/03/17 04/29/19 History Mcg = 1000 Iu)] tiZANidine HCL [Zanaflex] 2 mg PO QID 06/15/17 04/29/19 History Scopolamine 1.5MG/72Hr Patch 1 patch TRANSDERM Q72H 07/07/17 04/29/19 History [TransDerm Scop] Lisinopril [Zestril] 20 mg PO DAILY #30 tab 12/19/17 04/29/19 Rx metFORMIN HCL [Glucophage] 500 mg PO BID #60 tab 02/10/18 04/29/19 Rx Acetaminophen-Codeine 300-30mg 1 tab PO TID PRN 12/05/18 04/29/19 History [Tylenol w/codeine #3] Glatiramer Acetate [Copaxone] 40 mg SQ MOWESA 12/05/18 04/29/19 History Levothyroxine Sodium [Synthroid] 112 mcg PO DAILY 12/05/18 04/29/19 History SUMAtriptan SUCCINATE [Sumatriptan 6 mg SQ DAILY PRN 12/05/18 04/29/19 History Succinate] rOPINIRole HCL [Requip] 2 mg PO TID 12/05/18 04/29/19 History Erenumab-Aooe [Aimovig 70 mg SQ Q30D 01/15/19 04/29/19 History Autoinjector] Morphine Pump 0.1 dose SQ CONTINUOUS 01/15/19 04/29/19 History Metoprolol Tartrate [Lopressor] 12.5 mg PO BID #0 01/19/19 04/29/19 Rx Baclofen 20 mg PO QID 04/29/19 04/29/19 History Omeprazole [PriLOSEC] 20 mg PO DAILY 04/29/19 04/29/19 History Allergies Allergy/AdvReac Type Severity Reaction Status Date / Time adhesive Allergy Severe Rash/Hives Verified 04/29/19 15:13 adhesive tape Allergy Severe Rash/Hives Verified 04/29/19 15:13 fentanyl Allergy Severe Rash/Hives Verified 04/29/19 15:13 latex Allergy Severe Rash/Hives Verified 04/29/19 15:13 metoclopramide [From Reglan] Allergy Unknown Verified 04/29/19 15:13 Physical Examination - Vital Signs Vital Signs: Vital Signs Temp Pulse Resp BP Pulse Ox 04/30/19 13:00 98.5 F 80 20 122/63 04/30/19 08:20 98.3 F 83 17 113/69 04/30/19 05:31 98.2 F 71 20 100/57 92 L 04/29/19 21:13 98.1 F 90 20 110/72 95 04/29/19 16:46 20 04/29/19 16:30 98.2 F 82 20 149/91 97 Intake and Output 04/30/19 04/30/19 04/30/19 06:59 14:59 22:59 Intake Total 1650 Balance 1650 Intake: Intake, IV Titration 850 Amount Sodium Chloride 0.9% 1, 600 000 ml @ 100 mls/hr IV . Q10H STA Rx#:[id number] methylPREDNISolone SOD 250 SUCC 1,000 mg In Sodium Chloride 0.9% 250 ml @ 250 mls/hr IVPB BID@0600, 1800 DESTINY Rx#:[id number] Oral 800 Other: Voiding Method Toilet Toilet # Voids 1 2 Results - Laboratory Findings CBC and BMP: 04/30/19 08:31 04/30/19 08:31 Abnormal Lab Findings: Abnormal Labs 04/29/19 04/29/19 04/29/19 14:15 14:15 14:30 WBC Plt Count 493 H Neutrophils # Chloride Carbon Dioxide BUN Glucose 125 H POC Glucose (mg/dL) 114 H TSH 5.310 H Ur Specific [place] Urine Protein Urine Glucose (UA) Urine Ketones 04/29/19 04/29/19 04/29/19 17:21 20:06 22:45 WBC Plt Count Neutrophils # Chloride Carbon Dioxide BUN Glucose POC Glucose (mg/dL) 170 H 354 H TSH Ur Specific [place] 1.040 H Urine Protein Trace H Urine Glucose (UA) 4+ H Urine Ketones 1+ H 04/30/19 04/30/19 04/30/19 06:49 08:31 08:31 WBC 20.3 H Plt Count Neutrophils # 18.6 H Chloride 109 H Carbon Dioxide 16 L BUN 21 H Glucose 263 H POC Glucose (mg/dL) 288 H TSH Ur Specific [place] Urine Protein Urine Glucose (UA) Urine Ketones 04/30/19 11:10 WBC Plt Count Neutrophils # Chloride Carbon Dioxide BUN Glucose POC Glucose (mg/dL) 207 H TSH Ur Specific [place] Urine Protein Urine Glucose (UA) Urine Ketones
[2019-04-30 19:56] LABS: Glucose,Whole Blood 219 mg/dL (75-99)
[2019-05-01] MEDS: Acetaminophen-Codeine 300-30mg TAB PO PRN ×3 (02:20→21:39)
[2019-05-01] MEDS: diphenhydrAMINE 50 MG/ML 1 ML VIAL IVP PRN ×2 (04:02→16:14)
[2019-05-01] MEDS: KETOROLAC 30 MG/ML 1 ML VIAL IVP PRN ×2 (04:02→16:14)
[2019-05-01] MEDS: methylPREDNISolone SOD SUCC 1,000 MG in SODIUM CHLORIDE 0.9% 250 ML IVPB SCH ×2 (05:48→16:15)
[2019-05-01] MEDS: LEVOTHYROXINE 112 MCG TAB PO SCH (05:49)
[2019-05-01 06:57] LABS: Glucose,Whole Blood 201 mg/dL (75-99)
[2019-05-01 09:39] LABS: Basophils % (A) 0 %; Eosinophils # (A) 0.1 k/uL (0-0.7); Eosinophils % (A) 0 %; HCT 38.1 % (34.0-46.0); HGB 11.7 gm/dL (11.4-16.0); Lymphocytes # (A) 1.2 k/uL (1.0-4.8); Lymphocytes % (A) 5 %; MCH 27.5 pg (25.0-35.0); MCHC 30.8 g/dL (31.0-37.0); MCV 89.2 fL (80.0-100.0); Mean Platelet Volume 7.7; Monocytes # (A) 0.4 k/uL (0-1.0); Monocytes % (A) 2 %; Neutrophils # (A) 20.3 k/uL (1.3-7.7); Neutrophils % (A) 92 %; Platelet Count 422 k/uL (150-450); RBC 4.27 m/uL (3.80-5.40); RDW 13.7 % (11.5-15.5)
[2019-05-01] MEDS: INSULIN ASPART (NovoLOG) 100 UNIT/ML VIAL SQ SCH ×4 (09:46→21:38)
[2019-05-01] MEDS: DULoxetine HCL 60 MG CAPSULE.DR PO SCH (09:48)
[2019-05-01] MEDS: ATORVASTATIN 10 MG TAB PO SCH (09:49)
[2019-05-01] MEDS: BACLOFEN 10 MG TAB PO SCH ×4 (09:49→21:39)
[2019-05-01] MEDS: PANTOPRAZOLE 40 MG TABLET PO SCH (09:49)
[2019-05-01] MEDS: LISINOPRIL 20 MG TAB PO SCH (09:49)
[2019-05-01] MEDS: CHOLECALCIFEROL 1,000 UNIT TAB PO SCH (09:49)
[2019-05-01] MEDS: metFORMIN 500 MG TAB PO SCH ×2 (09:49→21:39)
[2019-05-01] MEDS: METOPROLOL TARTRATE 12.5 MG TAB PO SCH ×2 (09:50→21:40)
[2019-05-01] MEDS: tiZANidine 4 MG TAB PO SCH ×4 (09:50→21:39)
[2019-05-01] MEDS: FAMOTIDINE 20 MG TAB PO SCH (09:50)
[2019-05-01] MEDS: MONTELUKAST 10 MG TAB PO SCH (09:50)
[2019-05-01] MEDS: HEPARIN SODIUM,PORCINE 5,000 UNIT/ML 1 ML VIAL SQ SCH ×2 (09:57→21:38)
[2019-05-01 10:02] LABS: African American GFR (CKD) >90 (>60 ml/min/1.73 sqM); Anion Gap 9 mmol/L; Blood Urea Nitrogen 27 mg/dL (7-17); Calcium 9.6 mg/dL (8.4-10.2); Carbon Dioxide 21 mmol/L (22-30); Chloride 111 mmol/L (98-107); Glucose 182 mg/dL (74-99); Non-African American GFR(CKD) 83 (>60 ml/min/1.73 sqM); Potassium 4.6 mmol/L (3.5-5.1); Sodium 141 mmol/L (137-145)
[2019-05-01 11:06] LABS: Glucose,Whole Blood 214 mg/dL (75-99)
[2019-05-01] MEDS: SODIUM CHLORIDE 0.9% 1,000 ML IV SCH (13:10)
[2019-05-01] MEDS: MORPHINE PUMP SQ SCH (16:15)
[2019-05-01 17:15] LABS: Glucose,Whole Blood 243 mg/dL (75-99)
[2019-05-01] MEDS: NON FORMULARY DRUG (Glatiramer Acetate [Copaxone] 40 MG) SQ SCH (17:37)
[2019-05-01 20:29] LABS: Glucose,Whole Blood 145 mg/dL (75-99)
--- NOTE | 2019-05-01 21:57 | P.PN ---
Progress Note - Text Progress Note Date: 05/01/19 SUBJECTIVE/INTERVAL EVENTS: No acute overnight events. Patient states that she feels better. With her usual MS exacerbation, with steroid treatment, her arms improve first, then her legs then her vision. Her arms feels better but legs still have tingling sensation and has blurred vision. Denies any headache, nausea, vomiting, dizziness. PHYSICAL EXAMINATION: VITAL SIGNS: T 98.5 HR 60 RR 18 BP 109/68 O2 sat 94% on RA GEN.: NAD, pleasant and cooperative HEENT: NCAT, sclera without icterus NECK: Supple SKIN AND EXTREMITIES: Warm to touch, no edema NEURO: MENTAL STATUS: Patient alert and oriented to self, place, time. Able to name the current president. Speech fluent, able to name and repeat, following all commands readily. CRANIAL NERVES II THROUGH XII: II: Pupils are equal and reactive to light symmetrically. Visual leung are intact to confrontation. No red color desaturation. III, IV, : No ptosis. Extraocular movements full. No nystagmus. No pain with eye movement. V: Facial sensation intact from V1-3. VII. No clear facial asymmetry. VIII: Hearing intact to finger rub bilaterally. IX, X: Symmetric palate elevation. XI: Shoulder shrug intact. XII: Tongue midline without fasciculation or atrophy. MOTOR: Normal bulk/tone. No pronator drift or tremor. Strength is 5/5 throughout all 4 extremities but at times, patient showing L hand and L foot weakness that is not consistent SENSORY: Intact to light touch in all 4 extremities. REFLEXES: 2+ throughout. Toes are downgoing. No clonus. Marisol's is present COORDINATION: Finger to nose intact. No dysmetria. GAIT: not assessed DIAGNOSTIC TESTING: LABORATORY: WBC 20.3 Hgb 13.1 Platelet 424 Na 141 K 4.6 Cl 109 CO2 16 BUN 21 Cr 0.73 glucose 263 urinarlysis negative for NE and nitrite. r+ glucose and 1+ ketones IMAGING: No brain imaging obtained during this admission ASSESSMENT: 48 year-old woman with PMhx of Asthma, Diabetes Mellitus, Hypertension, hypothyroidism, Multiple Sclerosis, back pain, DDD, optic neuritis, leukopenia (sores in mouth), who presented to [facility] for generalized weakness and difficulty with walking, which is a common manifestation of her MS exacerbation. On review of MRI brain w/ and w/o contrast from 2018, patient with 2 lesions, one in R cerebellum and one in the L parietal white matter, diagnosis of MS difficult to make. Patient reports having diagnosed in 2008. Patient's outpatient neurologist, Dr. No, had written prescription for patient to receive steroids for concern for MS exacerbation. Spoke to Dr. No today, who states patient should not get MRI inpatient as her morphine pump needs to be periodically checked during and after MRI. RECOMMENDATIONS: 1. c/w IV steroids 2. c/w PPI and glucose checks 3. will call Dr. No's office to ask about patient's diagnosis; will consider MRI after discussion 4. Neurology will sign off at this time. Please contact with additional questi ons or concerns.
--- NOTE | 2019-05-01 22:21 | P.PN ---
Subjective Progress Note Date: 05/01/19 Principal diagnosis: Acute MS exacerbation Patient is a 48-year-old female with a known history of multiple sclerosis with frequent admissions and chronic pain and diabetes type 2 was at the hospital due to acute MS exacerbation. 05/01/2019 Patient says that her visual disturbance and bilateral leg weakness is improving. Still having tingling sensation in the upper extremities. Patient is being continued on high-dose Solu-Medrol as per neurology. Denied any complaints of dizziness or lightheadedness. Patient is also complaining of pain in the anterior abdominal wall and hernia for which patient has with her physician. No chest pain or shortness of breath. WBC 22 likely due to steroids. Patient has been afebrile. Patient says that she also has history of gastroparesis. Active Medications Acetaminophen/Codeine Phosphate (Tylenol #3) 1 each PO TID PRN PRN Reason: Pain Last Admin: 05/01/19 21:39 Dose: 1 each Documented by: Albuterol/Ipratropium (Duoneb 0.5 Mg-3 Mg/3 Ml Soln) 3 ml INHALATION RT-QID PRN PRN Reason: Shortness Of Breath Atorvastatin Calcium (Lipitor) 10 mg PO DAILY [facility] Last Admin: 05/01/19 09:49 Dose: 10 mg Documented by: Baclofen (Lioresal) 20 mg PO QID [facility] Last Admin: 05/01/19 21:39 Dose: 20 mg Documented by: Cholecalciferol (Vitamin D3 (25 Mcg = 1000 Iu)) 1,000 unit PO DAILY [facility] Last Admin: 05/01/19 09:49 Dose: 1,000 unit Documented by: Diphenhydramine HCl (Benadryl) 50 mg IVP Q6HR PRN PRN Reason: Allergy Symptoms Stop: 05/02/19 23:59 Last Admin: 05/01/19 16:14 Dose: 50 mg Documented by: Duloxetine HCl (Cymbalta) 60 mg PO QAM [facility] Last Admin: 05/01/19 09:48 Dose: 60 mg Documented by: Famotidine (Pepcid) 20 mg PO DAILY [facility] Last Admin: 05/01/19 09:50 Dose: 20 mg Documented by: Heparin Sodium (Porcine) (Heparin) 5,000 unit SQ Q12HR [facility] Last Admin: 05/01/19 21:38 Dose: 5,000 unit Documented by: Sodium Chloride (Saline 0.9%) 1,000 mls @ 20 mls/hr IV .Q24H [facility] Last Admin: 05/01/19 13:10 Dose: Not Given Documented by: Methylprednisolone Sodium Succinate 1,000 mg/ Sodium Chloride 250 mls @ 250 mls/hr IVPB BID@0600,1800 [facility] Last Admin: 05/01/19 16:15 Dose: 250 mls/hr Documented by: Insulin Aspart (Novolog) 0 unit SQ [facility]; Protocol Last Admin: 05/01/19 21:38 Dose: 2 unit Documented by: Ketorolac Tromethamine (Toradol) 15 mg IVP Q6HR PRN PRN Reason: Breakthrough Pain Stop: 05/03/19 17:58 Last Admin: 05/01/19 16:14 Dose: 15 mg Documented by: Levothyroxine Sodium (Synthroid) 112 mcg PO 0630 [facility] Last Admin: 05/01/19 05:49 Dose: 112 mcg Documented by: Lisinopril (Zestril) 20 mg PO DAILY [facility] Last Admin: 05/01/19 09:49 Dose: 20 mg Documented by: Metformin HCl (Glucophage) 500 mg PO BID [facility] Last Admin: 05/01/19 21:39 Dose: 500 mg Documented by: Metoprolol Tartrate (Lopressor) 12.5 mg PO BID [facility] Last Admin: 05/01/19 21:40 Dose: 12.5 mg Documented by: Montelukast Sodium (Singulair) 10 mg PO DAILY [facility] Last Admin: 05/01/19 09:50 Dose: 10 mg Documented by: Naloxone HCl (Narcan) 0.2 mg IV Q2M PRN PRN Reason: Opioid Reversal Non-Formulary Medication (Morphine Pump) 0.1 dose SQ CONTINUOUS [facility] Last Admin: 05/01/19 16:15 Dose: Not Given Documented by: Non-Formulary Medication (Glatiramer Acetate [Copaxone]) 40 mg SQ [facility] Last Admin: 05/01/19 17:37 Dose: Not Given Documented by: Ondansetron HCl (Zofran) 4 mg IVP Q6HR PRN PRN Reason: Nausea And Vomiting Last Admin: 04/30/19 14:47 Dose: 4 mg Documented by: Pantoprazole Sodium (Protonix) 40 mg [facility] Last Admin: 05/01/19 09:49 Dose: 40 mg Documented by: Ropinirole HCl (Requip) 2 mg PO TID [facility] Last Admin: 05/01/19 21:40 Dose: 2 mg Documented by: Scopolamine (Transderm-Scop 1.5mg/72hr Patch) 1 patch TRANSDERM Q72H [facility] Last Admin: 04/30/19 11:40 Dose: 1 patch Documented by: Sumatriptan Succinate (Imitrex) 6 mg SQ DAILY PRN PRN Reason: Migraine Headache Temazepam (Restoril) 15 mg PO HS PRN PRN Reason: Insomnia Tizanidine HCl (Zanaflex) 2 mg PO QID [facility] Last Admin: 05/01/19 21:39 Dose: 2 mg Documented by: Objective - Vital Signs Vital signs: Vital Signs Temp 97.7 F 05/01/19 13:53 Pulse 65 05/01/19 13:53 Resp 18 05/01/19 13:53 BP 110/67 05/01/19 13:53 Pulse Ox 96 05/01/19 13:53 Intake & Output 04/30/19 05/01/19 05/01/19 18:59 06:59 18:59 Intake Total 1650 830 100 Balance 1650 830 100 Intake: Intake, IV Titration 850 270 100 Amount Sodium Chloride 0.9% 1, 600 000 ml @ 100 mls/hr IV . Q10H [facility] Rx#:[id number] Sodium Chloride 0.9% 1, 20 000 ml @ 20 mls/hr IV . Q24H [facility] Rx#:[id number] methylPREDNISolone SOD 250 100 SUCC 1,000 mg In Sodium Chloride 0.9% 250 ml @ 250 mls/hr IVPB BID@0600, 1800 [facility] Rx#:[id number] methylPREDNISolone SOD 250 SUCC 1,000 mg In Sodium Chloride 0.9% 250 ml @ 250 mls/hr IVPB DAILY [facility] Rx#:[id number] Oral 800 560 Other: Voiding Method Toilet Toilet Toilet # Voids 2 1 - Exam PHYSICAL EXAMINATION: Patient is lying in the bed comfortably, no acute distress, awake alert and oriented.. HEENT: Normocephalic. Neck is supple. Pupils reactive. Nostrils clear. Oral cavity is moist. Ears reveal no drainage. Neck reveals no JVD, carotid bruits, or thyromegaly. CHEST EXAMINATION: Trachea is central. Symmetrical expansion. Lung leung clear to auscultation and percussion. CARDIAC: Normal S1, S2 with no gallops. No murmurs ABDOMEN: Soft. Small anterior upper ventral hernia. Nontender. No guarding no rigidity. Bowel sounds normal. No organomegaly. No abdominal bruits. Extremities: reveal no edema. No clubbing or cyanosis Neurologically awake, alert, oriented x3 with well-coordinated movements. Bilateral lower extremity weakness. Upper extremities weakness left greater than right. Skin: No rash or skin lesions. Psychiatric: Coperative. Nonsuicidal. Anxious. Musculoskeletal: No joint swelling or deformity. Normal range of motion. - Labs CBC & Chem 7: 05/01/19 08:32 05/01/19 08:32 Labs: Abnormal Lab Results - Last 24 Hours (Table) 04/30/19 04/30/19 05/01/19 Range/Units 16:48 19:54 06:56 WBC (3.8-10.6) k/uL MCHC (31.0-37.0) g/dL Neutrophils # (1.3-7.7) k/uL Chloride (98-107) mmol/L Carbon Dioxide (22-30) mmol/L BUN (7-17) mg/dL Glucose (74-99) mg/dL POC Glucose (mg/dL) 202 H 219 H 201 H (75-99) mg/dL 05/01/19 05/01/19 05/01/19 Range/Units 08:32 08:32 11:05 WBC 22.0 H (3.8-10.6) k/uL MCHC 30.8 L (31.0-37.0) g/dL Neutrophils # 20.3 H (1.3-7.7) k/uL Chloride 111 H (98-107) mmol/L Carbon Dioxide 21 L (22-30) mmol/L BUN 27 H (7-17) mg/dL Glucose 182 H (74-99) mg/dL POC Glucose (mg/dL) 214 H (75-99) mg/dL Assessment and Plan Assessment: Acute multiple sclerosis exacerbation Generalized body pains and aches. Chronic pain syndrome, on morphine pump Hyperglycemia with uncontrolled diabetes type 2. Steroids contributing. Leukocytosis likely due to steroids. Asthma, Hypertension Morbid obesity with BMI 36.5 Hypothyroidism Degenerative joint disease History of optic neuritis Increased TSH with normal free T4 and T3 levels DVT prophylaxis with heparin subcu for Plan: Patient will be continued on high-dose IV steroids. Patient is improving symptomatically. Continue to monitor blood sugar closely and continue with pain management. Continue the home medications and follow up closely. Neurology is on board. MRI of the brain is being considered but currently on hold after discussing with her neurologist, Dr. franklin who recommends outpatient follow-up for MRI. Further recommendations based on the clinical course. Time with Patient: Greater than 30
[2019-05-02] MEDS: diphenhydrAMINE 50 MG/ML 1 ML VIAL IVP PRN ×3 (00:30→19:50)
[2019-05-02] MEDS: KETOROLAC 30 MG/ML 1 ML VIAL IVP PRN ×3 (00:30→19:48)
[2019-05-02] MEDS: Acetaminophen-Codeine 300-30mg TAB PO PRN ×2 (05:04→21:44)
[2019-05-02] MEDS: methylPREDNISolone SOD SUCC 1,000 MG in SODIUM CHLORIDE 0.9% 250 ML IVPB SCH ×2 (05:04→17:30)
[2019-05-02] MEDS: LEVOTHYROXINE 112 MCG TAB PO SCH (05:04)
[2019-05-02] MEDS: ONDANSETRON 4 MG/2 ML VIAL IVP PRN (05:09)
[2019-05-02 07:06] LABS: Glucose,Whole Blood 172 mg/dL (75-99)
[2019-05-02] MEDS: INSULIN ASPART (NovoLOG) 100 UNIT/ML VIAL SQ SCH ×4 (08:12→21:05)
[2019-05-02] MEDS: BACLOFEN 10 MG TAB PO SCH ×4 (08:14→21:05)
[2019-05-02] MEDS: CHOLECALCIFEROL 1,000 UNIT TAB PO SCH (08:14)
[2019-05-02] MEDS: LISINOPRIL 20 MG TAB PO SCH (08:14)
[2019-05-02] MEDS: ATORVASTATIN 10 MG TAB PO SCH (08:14)
[2019-05-02] MEDS: DULoxetine HCL 60 MG CAPSULE.DR PO SCH (08:14)
[2019-05-02] MEDS: MONTELUKAST 10 MG TAB PO SCH (08:14)
[2019-05-02] MEDS: HEPARIN SODIUM,PORCINE 5,000 UNIT/ML 1 ML VIAL SQ SCH ×2 (08:14→21:05)
[2019-05-02] MEDS: metFORMIN 500 MG TAB PO SCH ×2 (08:14→21:05)
[2019-05-02] MEDS: PANTOPRAZOLE 40 MG TABLET PO SCH (08:15)
[2019-05-02] MEDS: FAMOTIDINE 20 MG TAB PO SCH (08:15)
[2019-05-02] MEDS: METOPROLOL TARTRATE 12.5 MG TAB PO SCH ×2 (08:15→21:05)
[2019-05-02] MEDS: tiZANidine 4 MG TAB PO SCH ×4 (08:16→21:27)
[2019-05-02 09:13] LABS: Basophils % (A) 0 %; Eosinophils # (A) 0.1 k/uL (0-0.7); Eosinophils % (A) 0 %; HCT 37.1 % (34.0-46.0); HGB 11.4 gm/dL (11.4-16.0); Lymphocytes # (A) 0.7 k/uL (1.0-4.8); Lymphocytes % (A) 4 %; MCH 27.4 pg (25.0-35.0); MCHC 30.8 g/dL (31.0-37.0); MCV 88.9 fL (80.0-100.0); Mean Platelet Volume 7.7; Monocytes # (A) 0.4 k/uL (0-1.0); Monocytes % (A) 3 %; Neutrophils # (A) 14.2 k/uL (1.3-7.7); Neutrophils % (A) 93 %; Platelet Count 374 k/uL (150-450); RBC 4.18 m/uL (3.80-5.40); RDW 13.6 % (11.5-15.5); WBC 15.4 k/uL (3.8-10.6)
[2019-05-02 09:28] LABS: African American GFR (CKD) >90 (>60 ml/min/1.73 sqM); Anion Gap 8 mmol/L; Blood Urea Nitrogen 32 mg/dL (7-17); Calcium 8.9 mg/dL (8.4-10.2); Carbon Dioxide 23 mmol/L (22-30); Chloride 110 mmol/L (98-107); Glucose 182 mg/dL (74-99); Non-African American GFR(CKD) 80 (>60 ml/min/1.73 sqM); Potassium 4.6 mmol/L (3.5-5.1); Sodium 141 mmol/L (137-145)
[2019-05-02] MEDS: SODIUM CHLORIDE 0.9% 1,000 ML IV SCH (12:30)
[2019-05-02 12:44] LABS: Glucose,Whole Blood 160 mg/dL (75-99)
[2019-05-02 17:08] LABS: Glucose,Whole Blood 197 mg/dL (75-99)
[2019-05-02] MEDS: MORPHINE PUMP SQ SCH (17:23)
--- NOTE | 2019-05-02 18:26 | PN ---
PROGRESS NOTE DATE OF SERVICE: 05/02/2019 This 48-year-old woman who was admitted with significant multiple sclerosis, acute exacerbation, also had lack of IV access. The patient is on high-dose IV steroids. Neurology is following the patient closely. PAST MEDICAL HISTORY: Reviewed. PHYSICAL EXAMINATION: Patient is alert and oriented x3. Pulse is 50, blood pressure is 134//66, respiration 16, temperature 98.2, pulse ox 94% on room air. HEENT: Conjunctivae normal. NECK: No jugular venous distention. CARDIOVASCULAR SYSTEM: S1, S2 muffled. RESPIRATORY SYSTEM: Breath sounds diminished at the bases. No rhonchi. No crackles. ABDOMEN: Soft, obese. Non-tender. LEGS: No edema. No swelling. NERVOUS SYSTEM: Diffusely weak. LABS: WBC 15.5, hemoglobin is 11.4. ASSESSMENT: 1. Multiple sclerosis, acute exacerbation, on high-dose IV steroids. 2. Diffuse aches and pains. 3. Chronic pain syndrome with acute on chronic pain syndrome. 4. Diabetes mellitus, type 2, uncontrolled, with hyperglycemia. 5. Obesity with a body mass index of 36.5. 6. History of asthma. 7. History of hypertension. 8. History of degenerative joint disease. 9. Hypothyroidism. 10.History of back pain. 11.History of optic neuritis. 12.History of leukopenia. 13.History of Clostridium difficile colitis. 14.History of mild thrombocytopenia. 15.Increased TSH with normal free T3 and free T4. RECOMMENDATIONS AND DISCUSSION: I recommend to continue current medications, continue symptomatic treatment, continue with the high-dose IV steroids, monitor closely. Otherwise, MRA has been scheduled at this time, but would like to get it from Dr. No's office because of the pain pump issues. I would keep the IV line, and if the patient is stabilized, he may be discharged home in the next 24-48 hours with outpatient followup. Prognosis extremely guarded because of multiple complex medical issues. Further recommendations to follow. MMODL / IJN: [id number] /
[2019-05-02 19:56] LABS: Glucose,Whole Blood 163 mg/dL (75-99)
[2019-05-02] MEDS ORDERED: NON FORMULARY DRUG (Glatiramer Acetate [Copaxone] 40 MG) SQ SCH (21:30)
[2019-05-03] MEDS: KETOROLAC 30 MG/ML 1 ML VIAL IVP PRN ×3 (01:49→19:29)
[2019-05-03] MEDS ORDERED: diphenhydrAMINE 50 MG/ML 1 ML VIAL IVP STA (03:08)
[2019-05-03] MEDS: LEVOTHYROXINE 112 MCG TAB PO SCH (06:26)
[2019-05-03] MEDS: methylPREDNISolone SOD SUCC 1,000 MG in SODIUM CHLORIDE 0.9% 250 ML IVPB SCH ×2 (06:26→17:41)
[2019-05-03 07:07] LABS: Glucose,Whole Blood 187 mg/dL (75-99)
[2019-05-03] MEDS: tiZANidine 4 MG TAB PO SCH ×4 (08:15→21:13)
[2019-05-03] MEDS: CHOLECALCIFEROL 1,000 UNIT TAB PO SCH (08:16)
[2019-05-03] MEDS: METOPROLOL TARTRATE 12.5 MG TAB PO SCH ×2 (08:16→21:12)
[2019-05-03] MEDS: FAMOTIDINE 20 MG TAB PO SCH (08:16)
[2019-05-03] MEDS: BACLOFEN 10 MG TAB PO SCH ×4 (08:16→21:12)
[2019-05-03] MEDS: DULoxetine HCL 60 MG CAPSULE.DR PO SCH (08:16)
[2019-05-03] MEDS: SCOPOLAMINE 1.5MG/72HR PATCH TRANSDERM SCH (08:16)
[2019-05-03] MEDS: metFORMIN 500 MG TAB PO SCH ×2 (08:17→21:12)
[2019-05-03] MEDS: HEPARIN SODIUM,PORCINE 5,000 UNIT/ML 1 ML VIAL SQ SCH ×2 (08:17→21:13)
[2019-05-03] MEDS: PANTOPRAZOLE 40 MG TABLET PO SCH (08:17)
[2019-05-03] MEDS: INSULIN ASPART (NovoLOG) 100 UNIT/ML VIAL SQ SCH ×4 (08:17→21:13)
[2019-05-03] MEDS: LISINOPRIL 20 MG TAB PO SCH (08:17)
[2019-05-03] MEDS: MONTELUKAST 10 MG TAB PO SCH (08:17)
[2019-05-03] MEDS: ATORVASTATIN 10 MG TAB PO SCH (08:56)
[2019-05-03] MEDS ORDERED: diphenhydrAMINE 50 MG/ML 1 ML VIAL IVP PRN (10:40)
[2019-05-03 11:07] LABS: Glucose,Whole Blood 190 mg/dL (75-99)
[2019-05-03] MEDS: ONDANSETRON 4 MG/2 ML VIAL IVP PRN (14:06)
[2019-05-03] MEDS: SODIUM CHLORIDE 0.9% 1,000 ML IV SCH (15:41)
--- NOTE | 2019-05-03 16:52 | PN ---
PROGRESS NOTE DATE OF SERVICE: 05/03/2018 This 48-year-old woman who was admitted with multiple sclerosis acute exacerbation, also had significant diarrhea and diffuse aches and pains also. The patient is heart sick and the patient had difficulty in getting IV axis. The patient also has allergy to multiple medications, multiple substances as well. The patient had catheter intravenously currently at this time. Because of the IV access, the patient had difficulty in receiving routine treatments according to the according the . The patient was unable to get an MRI also done because of the issue of the IV access. Apparently the MRI currently could not be done in Dr. No's office because of concerns of the pain pump which is also being monitored by Dr. No's office at this time. PAST MEDICAL HISTORY: Reviewed. REVIEW OF SYSTEMS: CARDIOVASCULAR SYSTEM: No angina or palpitations. RESPIRATORY: As mentioned earlier. GASTROINTESTINAL: As mentioned earlier. : No dysuria. CENTRAL NERVOUS SYSTEM: No numbness or weakness. CURRENT MEDICATIONS: Reviewed and include: 1. Tylenol No.3 p.r.n. 2. Lipitor 10 mg daily. 3. Lioresal 20 mg q.i.d. 4. Benadryl 50 mg p.r.n. 5. Cymbalta 60 mg q.a.m. 6. Pepcid 20 mg daily. 7. Heparin. 8. Toradol. 9. Synthroid. 10.Zestril. 11.Glucophage. 12.Singular. 13.Narcan. 14.Zofran. 15.Protonix. 16.Requip. 17.Imitrex. 18.Zanaflex. PHYSICAL EXAM: Patient is alert, oriented x3. Pulse 61. Blood pressure 161/79, respirations 16, temperature 98.1. HEENT: Conjunctivae normal. NECK: No JVD. CARDIOVASCULAR: S1. S2 muffled. RESPIRATIONS: Breath sounds diminished in the bases. A few scattered rhonchi and crackles. ABDOMEN: Soft. Nontender. LEGS are no edema. No swelling. CENTRAL NERVOUS SYSTEM: Diffusely weak. LABS: At this time shows glucose 190 and WBC 15.4, sodium 141, potassium 4.6. ASSESSMENT: 1. Multiple sclerosis, acute exacerbation on high-dose IV steroids. 2. Diffuse aches and pains. 3. Diarrhea for evaluation. 4. Chronic pain syndrome with acute on chronic pain syndrome. 5. Lack of IV access. 6. Diabetes mellitus type 2 uncontrolled with hyperglycemia. 7. Obesity with body mass index of 36.5. 8. History of asthma. 9. History of hypertension. 10.History of degenerative joint disease. 11.History of hypothyroidism. 12.History of back pain. 13.History of optic neuritis. 14.History of mild leukopenia. 15.History of C difficile colitis. 16.Mild thrombocytopenia. 17.Increased TSH. Normal free T3 and free T4 with sick euthyroid syndrome. RECOMMENDATIONS AND DISCUSSION: In this 48-year-old woman who presented with multiple complex medical issues, we will monitor the patient closely. Continue the current medications, management and symptomatic treatment. We will recommend to continue with high-dose IV steroids. Monitor blood sugars closely. Repeat labs. The patient also had IV line at this time. Continue with Benadryl. Otherwise, I recommend resume the home medications. Also I had a detailed discussion with the family at this time. I would also recommend consideration of port also. Despite the risk of infections and other complications, the family is very keen on having one. I would recommend evaluation by a vascular surgeon as an outpatient. Otherwise, repeat labs are ordered and continue the rest of medications. Guarded prognosis. Further recommendations to follow. Follow closely with neurology. MMODL / IJN: [id number] /
[2019-05-03 17:21] LABS: Glucose,Whole Blood 167 mg/dL (75-99)
[2019-05-03] MEDS: MORPHINE PUMP SQ SCH (17:37)
[2019-05-03] MEDS: diphenhydrAMINE 50 MG/ML 1 ML VIAL IVP PRN (19:28)
[2019-05-03 20:18] LABS: Glucose,Whole Blood 189 mg/dL (75-99)
[2019-05-04] MEDS: KETOROLAC 30 MG/ML 1 ML VIAL IVP PRN ×4 (01:28→21:41)
[2019-05-04] MEDS: diphenhydrAMINE 50 MG/ML 1 ML VIAL IVP PRN ×4 (01:29→21:41)
[2019-05-04] MEDS: LEVOTHYROXINE 112 MCG TAB PO SCH (06:25)
[2019-05-04 07:02] LABS: Glucose,Whole Blood 193 mg/dL (75-99)
[2019-05-04] MEDS: methylPREDNISolone SOD SUCC 1,000 MG in SODIUM CHLORIDE 0.9% 250 ML IVPB SCH ×2 (07:30→18:09)
[2019-05-04 08:06] LABS: Basophils % (A) 0 %; Eosinophils # (A) 0.2 k/uL (0-0.7); Eosinophils % (A) 1 %; HCT 36.4 % (34.0-46.0); HGB 11.6 gm/dL (11.4-16.0); Lymphocytes # (A) 0.5 k/uL (1.0-4.8); Lymphocytes % (A) 4 %; MCV 87.4 fL (80.0-100.0); Mean Platelet Volume 7.7; Monocytes # (A) 0.1 k/uL (0-1.0); Monocytes % (A) 1 %; Neutrophils # (A) 10.1 k/uL (1.3-7.7); Neutrophils % (A) 93 %; Platelet Count 349 k/uL (150-450); RBC 4.16 m/uL (3.80-5.40); RDW 13.3 % (11.5-15.5); WBC 10.9 k/uL (3.8-10.6)
[2019-05-04 08:13] LABS: African American GFR (CKD) >90 (>60 ml/min/1.73 sqM); Anion Gap 10 mmol/L; Blood Urea Nitrogen 36 mg/dL (7-17); Calcium 8.7 mg/dL (8.4-10.2); Carbon Dioxide 24 mmol/L (22-30); Chloride 107 mmol/L (98-107); Glucose 199 mg/dL (74-99); Non-African American GFR(CKD) 81 (>60 ml/min/1.73 sqM); Potassium 4.3 mmol/L (3.5-5.1); Sodium 141 mmol/L (137-145)
[2019-05-04] MEDS: INSULIN ASPART (NovoLOG) 100 UNIT/ML VIAL SQ SCH ×4 (08:19→20:48)
[2019-05-04] MEDS: BACLOFEN 10 MG TAB PO SCH ×4 (08:26→20:50)
[2019-05-04] MEDS: CHOLECALCIFEROL 1,000 UNIT TAB PO SCH ×2 (08:26→08:27)
[2019-05-04] MEDS: FAMOTIDINE 20 MG TAB PO SCH (08:27)
[2019-05-04] MEDS: PANTOPRAZOLE 40 MG TABLET PO SCH (08:27)
[2019-05-04] MEDS: METOPROLOL TARTRATE 12.5 MG TAB PO SCH ×2 (08:27→20:49)
[2019-05-04] MEDS: LISINOPRIL 20 MG TAB PO SCH (08:28)
[2019-05-04] MEDS: metFORMIN 500 MG TAB PO SCH ×2 (08:28→20:50)
[2019-05-04] MEDS: DULoxetine HCL 60 MG CAPSULE.DR PO SCH (08:28)
[2019-05-04] MEDS: MONTELUKAST 10 MG TAB PO SCH (08:28)
[2019-05-04] MEDS: ATORVASTATIN 10 MG TAB PO SCH (08:29)
[2019-05-04] MEDS: HEPARIN SODIUM,PORCINE 5,000 UNIT/ML 1 ML VIAL SQ SCH ×2 (08:29→20:50)
[2019-05-04] MEDS: tiZANidine 4 MG TAB PO SCH ×4 (08:31→20:49)
[2019-05-04 11:44] LABS: Glucose,Whole Blood 171 mg/dL (75-99)
[2019-05-04] MEDS: SODIUM CHLORIDE 0.9% 1,000 ML IV SCH (14:07)
--- NOTE | 2019-05-04 15:00 | PN ---
PROGRESS NOTE DATE OF SERVICE: 05/04/2019 This 48-year-old woman who was admitted with multiple sclerosis, acute exacerbation, is still on high-dose IV steroids. The patient had lack of IV site because of apparent fragility of the veins. No chest pain. No palpitations. No fever. PHYSICAL EXAMINATION: Alert and oriented x3. Pulse is 56, blood pressure 158/92, respiration 18, temperature 98.2, pulse ox 94% on room air. HEENT: Conjunctivae normal. NECK: No jugular venous distention. CARDIOVASCULAR SYSTEM: S1, S2 muffled. RESPIRATORY SYSTEM: Breath sounds diminished at the bases. No rhonchi. No crackles. ABDOMEN: Soft, non-tender. LEGS: No edema. No swelling. NERVOUS SYSTEM: Diffusely weak. LABS: WBC 10.9. Other labs are noted. Accu-Cheks noted. ASSESSMENT: 1. Acute multiple sclerosis, acute exacerbation, on high-dose IV steroids. 2. Diffuse aches and pains. 3. Diarrhea, improved. 4. Chronic pain syndrome with acute on chronic pain syndrome. 5. Lack of IV access. 6. Diabetes mellitus, type 2, uncontrolled with hyperglycemia. 7. Obesity with body mass index of 36.5. 8. History of asthma. 9. Hypertension. 10.Degenerative joint disease. 11.History of hypothyroidism. 12.History of back pain. 13.History of optic neuritis. 14.History of mild leukopenia. 15.History of Clostridium difficile colitis. 16.Mild thrombocytopenia. 17.Increased TSH with normal free T3 and T4 with sick euthyroid syndrome. RECOMMENDATIONS AND DISCUSSION: I recommend to continue current medications, continue with the monitoring, symptomatic treatment. Otherwise at this time I recommend continuing with the high-dose IV steroids. Guarded prognosis because of the multiple complex medical issues. Further recommendations to follow. The patient will require an MRI to be done as an outpatient because of the compatibility issues and the patient's pain pump. Prognosis guarded. Further recommendations to follow. MMODL / IJN: [id number] /
[2019-05-04 17:03] LABS: Glucose,Whole Blood 179 mg/dL (75-99)
[2019-05-04] MEDS: MORPHINE PUMP SQ SCH (18:02)
[2019-05-04] MEDS: ONDANSETRON 4 MG/2 ML VIAL IVP PRN (18:14)
[2019-05-04 19:58] LABS: Glucose,Whole Blood 193 mg/dL (75-99)
[2019-05-04] MEDS: Acetaminophen-Codeine 300-30mg TAB PO PRN (20:51)
[2019-05-04 22:06] VITALS: RESP 16
[2019-05-05] MEDS: ONDANSETRON 4 MG/2 ML VIAL IVP PRN ×2 (01:19→20:49)
[2019-05-05] MEDS: KETOROLAC 30 MG/ML 1 ML VIAL IVP PRN ×4 (03:57→22:59)
[2019-05-05] MEDS: diphenhydrAMINE 50 MG/ML 1 ML VIAL IVP PRN ×4 (03:57→23:00)
[2019-05-05] MEDS: methylPREDNISolone SOD SUCC 1,000 MG in SODIUM CHLORIDE 0.9% 250 ML IVPB SCH (05:16)
[2019-05-05] MEDS: LEVOTHYROXINE 112 MCG TAB PO SCH (05:16)
[2019-05-05 07:11] LABS: Glucose,Whole Blood 189 mg/dL (75-99)
[2019-05-05 07:26] LABS: Basophils % (A) 0 %; Eosinophils # (A) 0.1 k/uL (0-0.7); Eosinophils % (A) 1 %; HCT 38.6 % (34.0-46.0); HGB 12.3 gm/dL (11.4-16.0); Lymphocytes # (A) 0.5 k/uL (1.0-4.8); Lymphocytes % (A) 4 %; MCHC 31.9 g/dL (31.0-37.0); MCV 87.5 fL (80.0-100.0); Mean Platelet Volume 7.5; Monocytes # (A) 0.2 k/uL (0-1.0); Monocytes % (A) 2 %; Neutrophils # (A) 11.5 k/uL (1.3-7.7); Neutrophils % (A) 93 %; Platelet Count 365 k/uL (150-450); RBC 4.41 m/uL (3.80-5.40); RDW 13.1 % (11.5-15.5); WBC 12.4 k/uL (3.8-10.6)
[2019-05-05 07:35] LABS: African American GFR (CKD) >90 (>60 ml/min/1.73 sqM); Anion Gap 7 mmol/L; Blood Urea Nitrogen 28 mg/dL (7-17); Calcium 8.6 mg/dL (8.4-10.2); Carbon Dioxide 29 mmol/L (22-30); Chloride 102 mmol/L (98-107); Glucose 182 mg/dL (74-99); Non-African American GFR(CKD) >90 (>60 ml/min/1.73 sqM); Potassium 4.3 mmol/L (3.5-5.1); Sodium 138 mmol/L (137-145)
[2019-05-05] MEDS: INSULIN ASPART (NovoLOG) 100 UNIT/ML VIAL SQ SCH ×4 (10:02→21:36)
[2019-05-05] MEDS: PANTOPRAZOLE 40 MG TABLET PO SCH (10:03)
[2019-05-05] MEDS: LISINOPRIL 20 MG TAB PO SCH (10:03)
[2019-05-05] MEDS: FAMOTIDINE 20 MG TAB PO SCH (10:03)
[2019-05-05] MEDS: BACLOFEN 10 MG TAB PO SCH ×4 (10:03→22:58)
[2019-05-05] MEDS: METOPROLOL TARTRATE 12.5 MG TAB PO SCH ×2 (10:03→20:49)
[2019-05-05] MEDS: MONTELUKAST 10 MG TAB PO SCH (10:03)
[2019-05-05] MEDS: DULoxetine HCL 60 MG CAPSULE.DR PO SCH (10:03)
[2019-05-05] MEDS: metFORMIN 500 MG TAB PO SCH ×2 (10:03→20:49)
[2019-05-05] MEDS: ATORVASTATIN 10 MG TAB PO SCH (10:04)
[2019-05-05] MEDS: HEPARIN SODIUM,PORCINE 5,000 UNIT/ML 1 ML VIAL SQ SCH ×2 (10:04→20:49)
[2019-05-05] MEDS: CHOLECALCIFEROL 1,000 UNIT TAB PO SCH (10:04)
[2019-05-05] MEDS: tiZANidine 4 MG TAB PO SCH ×4 (10:05→22:58)
[2019-05-05 12:06] LABS: Glucose,Whole Blood 245 mg/dL (75-99)
[2019-05-05] MEDS: SODIUM CHLORIDE 0.9% 1,000 ML IV SCH (13:13)
[2019-05-05] MEDS: MORPHINE PUMP SQ SCH (17:07)
[2019-05-05 17:27] LABS: Glucose,Whole Blood 150 mg/dL (75-99)
--- NOTE | 2019-05-05 19:53 | PN ---
PROGRESS NOTE DATE OF SERVICE: 05/05/2019 This 48-year-old woman was admitted with acute multiple sclerosis acute exacerbation on high-dose IV steroids. No chest pain. No palpitations. No fever. The patient had positive IV access. The patient is scheduled for MRI at Dr. No's office, Monday afternoon actually 1 o'clock. No chest pain. No palpitations. No fever. Patient complains of diarrhea. EXAM: Alert and oriented times three. Pulse 55. Blood pressure 179/80, respiration 16, temperature 97.8, pulse ox 98% on room air. HEENT: Conjunctivae normal. NECK: No JVD. CARDIOVASCULAR SYSTEM: S1, S2 muffled. RESPIRATORY SYSTEM: Breath sounds diminished at the bases. No rhonchi. No crackles. Abdomen soft, obese. LEGS are no edema. No swelling. Nervous system: Mild diffuse weakness. LAB STUDIES: WBC 12.4, glucose 189. ASSESSMENT: 1. Acute multiple sclerosis acute exacerbation on high-dose IV steroids. 2. Diffuse aches and pains. 3. Diarrhea improved. 4. Chronic pain syndrome with acute on chronic pain syndrome. 5. Lack of IV access. 6. Diabetes mellitus type 2 uncontrolled with hyperglycemia. 7. Obesity with body mass index 36.5. 8. History of asthma. 9. Hypertension. 10.History of degenerative joint disease. 11.History of hypothyroidism. 12.History of back pain. 13.History of optic neuritis. 14.History of mild leukopenia. 15.History of C difficile colitis. 16.Mild thrombocytopenia. 17.Increased TSH with normal free T3 and free T4 with sick euthyroid syndrome. RECOMMENDATION AND DISCUSSION: In this 48-year-old woman who presented with multiple medical problems, at this time, I recommend to continue the IV steroids at a lower dose. Otherwise, continue the rest of medications, symptomatic treatment. Keep an IV line and we will try to discharge the patient with an IV line, so the patient can have an MRI with contrast at Dr. No's office. Office once again the prognosis guarded. Further recommendations to follow. MMCLINTL / GANGA: [id number] /
[2019-05-05 20:01] LABS: Glucose,Whole Blood 104 mg/dL (75-99)
[2019-05-05] MEDS: Acetaminophen-Codeine 300-30mg TAB PO PRN (20:50)
[2019-05-06] MEDS: KETOROLAC 30 MG/ML 1 ML VIAL IVP PRN ×2 (04:58→10:40)
[2019-05-06] MEDS: LEVOTHYROXINE 112 MCG TAB PO SCH (04:58)
[2019-05-06] MEDS: diphenhydrAMINE 50 MG/ML 1 ML VIAL IVP PRN ×2 (04:58→10:40)
[2019-05-06 05:43] VITALS: PULSE 90; TEMP 98.6
[2019-05-06 06:19] VITALS: BP 159/79
[2019-05-06 07:16] LABS: Glucose,Whole Blood 166 mg/dL (75-99)
[2019-05-06 07:50] LABS: Basophils # (A) 0.1 k/uL (0-0.2); Basophils % (A) 1 %; Eosinophils # (A) 0.1 k/uL (0-0.7); Eosinophils % (A) 1 %; HGB 13.1 gm/dL (11.4-16.0); Lymphocytes # (A) 0.8 k/uL (1.0-4.8); Lymphocytes % (A) 6 %; MCHC 32.8 g/dL (31.0-37.0); MCV 85.4 fL (80.0-100.0); Mean Platelet Volume 7.9; Monocytes # (A) 0.3 k/uL (0-1.0); Monocytes % (A) 2 %; Neutrophils # (A) 12.6 k/uL (1.3-7.7); Neutrophils % (A) 91 %; Platelet Count 405 k/uL (150-450); RBC 4.69 m/uL (3.80-5.40); RDW 12.7 % (11.5-15.5); WBC 13.9 k/uL (3.8-10.6)
[2019-05-06 08:05] LABS: African American GFR (CKD) >90 (>60 ml/min/1.73 sqM); Anion Gap 8 mmol/L; Blood Urea Nitrogen 25 mg/dL (7-17); Calcium 8.6 mg/dL (8.4-10.2); Carbon Dioxide 31 mmol/L (22-30); Chloride 96 mmol/L (98-107); Glucose 158 mg/dL (74-99); Non-African American GFR(CKD) >90 (>60 ml/min/1.73 sqM); Potassium 3.6 mmol/L (3.5-5.1); Sodium 135 mmol/L (137-145)
[2019-05-06] MEDS: MONTELUKAST 10 MG TAB PO SCH (09:18)
[2019-05-06] MEDS: BACLOFEN 10 MG TAB PO SCH (09:19)
[2019-05-06] MEDS: LISINOPRIL 20 MG TAB PO SCH (09:19)
[2019-05-06] MEDS: DULoxetine HCL 60 MG CAPSULE.DR PO SCH (09:19)
[2019-05-06] MEDS: METOPROLOL TARTRATE 12.5 MG TAB PO SCH (09:19)
[2019-05-06] MEDS: FAMOTIDINE 20 MG TAB PO SCH (09:19)
[2019-05-06] MEDS: ATORVASTATIN 10 MG TAB PO SCH (09:19)
[2019-05-06] MEDS: PANTOPRAZOLE 40 MG TABLET PO SCH (09:19)
[2019-05-06] MEDS: INSULIN ASPART (NovoLOG) 100 UNIT/ML VIAL SQ SCH (09:19)
[2019-05-06] MEDS: HEPARIN SODIUM,PORCINE 5,000 UNIT/ML 1 ML VIAL SQ SCH (09:19)
[2019-05-06] MEDS: metFORMIN 500 MG TAB PO SCH (09:19)
[2019-05-06] MEDS: tiZANidine 4 MG TAB PO SCH (09:20)
[2019-05-06] MEDS: SCOPOLAMINE 1.5MG/72HR PATCH TRANSDERM SCH (09:20)
[2019-05-06 11:37] LABS: Glucose,Whole Blood 202 mg/dL (75-99)
--- NOTE | 2019-05-06 19:42 | DS ---
DISCHARGE SUMMARY DATE OF SERVICE: 05/06/2019 FINAL DIAGNOSES: 1. Acute multiple sclerosis acute exacerbation status post high-dose IV steroids. 2. Diffuse aches and pains with acute on chronic pain syndrome. 3. Diarrhea, improved, possibly infective. 4. Chronic pain syndrome with acute on chronic pain syndrome. 5. Lack of IV access. 6. Diabetes mellitus type 2, uncontrolled with hyperglycemia. 7. Obesity with a body mass index of 36.5. 8. History of asthma. 9. History of hypertension. 10.History of degenerative joint disease. 11.Hypothyroidism. 12.History of back pain. 13.History of optic neuritis. 14.History of mild leukopenia. 15.History of C difficile colitis. 16.Mild thrombocytopenia. 17.Increased TSH with normal free T3 and free T4 with sick euthyroid syndrome. DISCHARGE DISPOSITION: The patient will be discharged in stable condition with guarded prognosis. HISTORY OF PRESENT ILLNESS: This 48-year-old woman with a past medical history of multiple medical problems was admitted with multiple sclerosis, acute exacerbation. Patient was seen by Dr. No. The patient was given high-dose IV steroids. Neurology saw the patient. The patient also had lack of IV access. The patient was supposed to have a MRI scan from Dr. No's office. A midline was inserted just for the purpose of contrast admission during the MRI scan and midline to be cared off and then taken off after the MRI scan and MRI scan to be followed up from primary physician and as well as Dr. No. On exam, vitals stable. Cardiovascular: S1, S2. Abdomen soft. Nervous system: Mild diffuse weakness. The patient also has significant issues with IV access. Multiple IV lines including Angiocath have been inserted and blown causing no significant issues and the patient also reports this also currently happening in the outpatient setting also. The patient is requesting a possibility of a port. I would recommend the patient follow up with Dr. Licea closely in the outpatient setting and discuss for a permanent port placement. The family is aware of the long-term risks including infection, thrombosis to which they are agreeable to take the risk because of the continued discomfort and inability to administer proper medications in a timely manner to this patient. DISCHARGE ADVICE AND MEDICATIONS: 1. Diet is cardiac diet. 2. Activity limited until followup. 3. Follow up with Dr. Serrano in 2-3 days. 4. Follow up with neurologist Dr. No as recommended. 5. Follow up with Dr. Licea as recommended. DISCHARGE MEDICATIONS: 1. Amovig 70 mg subcu 30 days. 2. Baclofen 20 mg p.o. q.i.d. 3. Copaxone 40 mg subcu Monday, Monday. 4. Cymbalta 60 mg p.o. q.a.m. 5. DuoNeb q.i.d. and p.r.n. 6. NovoLog scale. 7. Lipitor 10 mg p.o. daily. 8. Morphine pump as before. 9. Prilosec 20 mg p.o. daily. 10.ProAir an 8.5, q.i.d. and p.r.n. 11.Requip 2 mg p.o. t.i.d. 12.Sumatriptan p.r.n. 6 mg subcu daily p.r.n. 13.Synthroid 112 mcg p.o. daily. 14.Scopolamine patch q.72h hours. 15.Tylenol No.3 t.i.d. p.r.n. 16.Vitamin D3 1000 daily. 17.Zanaflex 2 mg p.o. q.i.d. 18.Glucophage 500 mg p.o. b.i.d. 19.Lopressor 12.5 mg p.o. b.i.d. 20.Singulair 10 mg p.o. daily. 21.Zestril 20 mg p.o. daily. Once again the patient being discharged in stable condition with guarded prognosis. MMODL / IJN: [id number] /
== END 2019-05-06 13:47 | disposition home or self-care (01) | DRG 59 ==
LOC: EC 12:51 → 5NMEDONC 14:49 → OBSVTOIN 05-01 09:26
PROVIDERS: ADMIT Hospitalist; ATTEND Hospitalist
PROC: 05HD33Z Insertion of Infusion Device into Right Cephalic Vein, Percutaneous Approach (ICD-10-PCS; principal; 2019-05-01 09:45)
PROC: 05HB33Z Insertion of Infusion Device into Right Basilic Vein, Percutaneous Approach (ICD-10-PCS; 2019-05-06 08:30)
DX: G35 Multiple sclerosis (principal); A09 Infectious gastroenteritis and colitis, unspecified; D69.6 Thrombocytopenia, unspecified; E11.43 Type 2 diabetes mellitus with diabetic autonomic (poly)neuropathy; K31.84 Gastroparesis; D72.829 Elevated white blood cell count, unspecified; E03.9 Hypothyroidism, unspecified; T38.0X5A Adverse effect of glucocorticoids and synthetic analogues, initial encounter; E11.65 Type 2 diabetes mellitus with hyperglycemia; E07.81 Sick-euthyroid syndrome; G89.4 Chronic pain syndrome; J45.909 Unspecified asthma, uncomplicated; I10 Essential (primary) hypertension; G43.909 Migraine, unspecified, not intractable, without status migrainosus; G47.00 Insomnia, unspecified; M19.90 Unspecified osteoarthritis, unspecified site; M54.9 Dorsalgia, unspecified; E66.01 Morbid (severe) obesity due to excess calories; Z68.36 Body mass index [BMI] 36.0-36.9, adult; Z79.890 Hormone replacement therapy; Z79.4 Long term (current) use of insulin; Z79.891 Long term (current) use of opiate analgesic; Z79.899 Other long term (current) drug therapy; Z86.19 Personal history of other infectious and parasitic diseases; Z86.69 Personal history of other diseases of the nervous system and sense organs; Z90.710 Acquired absence of both cervix and uterus; Z98.890 Other specified postprocedural states; Z98.51 Tubal ligation status; Z91.040 Latex allergy status; Z88.5 Allergy status to narcotic agent; Z88.8 Allergy status to other drugs, medicaments and biological substances; Z91.048 Other nonmedicinal substance allergy status; Z82.49 Family history of ischemic heart disease and other diseases of the circulatory system
CPT/HCPCS: 36410; 36415; 71045; 76937; 80048; 80053; 81003; 84439; 84443; 84481; 85025; 87324; 94760; 96365; 96375; 99284

== ENCOUNTER 2019-10-03 07:40 | Day surgery (SDC) | payer BC, MEDICARE ==
[2019-10-03] MEDS ORDERED: diphenhydrAMINE 50 MG/ML 1 ML VIAL ONE ×2 (08:29→14:55)
[2019-10-03 08:34] LABS: Glucose,Whole Blood 122 mg/dL (75-99)
[2019-10-03] MEDS: LACTATED RINGERS 1,000 ML IV SCH ×2 (08:38→10:07)
[2019-10-03] MEDS ORDERED: fentaNYL (PF) 50 MCG/ML 2 ML AMP ONE (08:40)
[2019-10-03] MEDS ORDERED: MIDAZOLAM 2 MG/2 ML VIAL ONE (08:40)
[2019-10-03] MEDS ORDERED: IV FLUID CONTINUATION 800 ML IV ONE (08:55)
[2019-10-03] MEDS ORDERED: ONDANSETRON 4 MG/2 ML VIAL ONE (09:20)
[2019-10-03] MEDS ORDERED: KETOROLAC 30 MG/ML 1 ML VIAL ONE ×2 (09:20→14:55)
--- NOTE | 2019-10-03 09:24 | P.PCN ---
Date of Procedure: 10/03/19 Procedure(s) Performed: Preoperative diagnosis: White matter disease, possible multiple sclerosis Post operative diagnoses: Same Anesthesia local infiltration with lidocaine 1% 2 mL., [moderate sedation with fentanyl and Versed], sedation time 10 minutes Condition: stable Complication: none. Description of the procedure procedure risk and benefits discussed with the patient and family, consent signed. Patient was taken to the procedure area placed in left lateral position. Local infiltration of the skin and subcutaneous tissue with lidocaine 1%. A 20-gauge Quincke-type needle advanced slowly at L4- 5 interlaminar space. CSF was collected. A total of 12 ML of clear cerebrospinal fluid collected in 4 tubes. Then, the needle was removed and a Band-Aid applied and patient tolerated the procedure well without any complications.
[2019-10-03] MEDS ORDERED: ONDANSETRON 4 MG/2 ML VIAL IVP ONE (09:26)
[2019-10-03] MEDS ORDERED: CAFFEINE-SODIUM BENZOATE 500 MG in SODIUM CHLORIDE 0.9% 1,000 ML IVPB ONE (11:11)
[2019-10-03] MEDS ORDERED: ACETAMINOPHEN TAB 325 MG TAB PO PRN (14:32)
[2019-10-03] MEDS ORDERED: NALOXONE 0.4 MG/ML 1 ML VIAL IV PRN (14:32)
[2019-10-03] MEDS ORDERED: IBUPROFEN 400 MG TAB PO PRN (14:32)
[2019-10-03] MEDS ORDERED: ONDANSETRON 4 MG/2 ML VIAL IVP PRN (14:32)
[2019-10-03] MEDS ORDERED: ALBUTEROL HFA INHALER INHALATION PRN (14:35)
[2019-10-03] MEDS ORDERED: IPRATROPIUM-ALBUTEROL 3 ML NEB INHALATION PRN (14:35)
[2019-10-03] MEDS ORDERED: Acetaminophen-Codeine 300-30mg TAB PO PRN (14:35)
[2019-10-03] MEDS ORDERED: MORPHINE SULFATE 2 MG/ML SYRINGE IVP PRN (14:36)
[2019-10-03] MEDS ORDERED: SCOPOLAMINE 1.5MG/72HR PATCH TRANSDERM SCH (14:45)
--- NOTE | 2019-10-03 14:45 | P.CONS ---
History of Present Illness - Reason for Consult Consult date: 10/03/19 Bradycardia - Chief Complaint Headache - History of Present Illness This is a 49-year-old female with complex past medical history significant for underlying multiple sclerosis, chronic pain syndrome, and morbid obesity who presented to the hospital for a scheduled outpatient lumbar puncture procedure. After the procedure well in recovery room, patient was noted to be bradycardic with heart rate down to the high 30s and low 40s on multiple occasions. Patient was complaining of severe headache on the right side associated with some numbness in her arm. I was asked to see her for medical consultation. At the time of my evaluation heart rate was in the 60s and 70s. Twelve-lead EKG done earlier showed normal sinus rhythm with sinus bradycardia. Patient denies any chest pain or dizziness. She is on metoprolol at home. She said that she did not take her metoprolol this morning. She received fentanyl and midazolam for sedation area. Patient was offered to have a blood patch procedure tomorrow that she feels uncomfortable going home and draining back in the morning. She said that her migraine headache is also not well controlled. Her at bedside is requesting her to have Benadryl every 6 hours as she is ALLERGIC to ''tape''. Review of Systems Review of system: 14 points review of systems were obtained and were negative except to what were mentioned in the HPI. Past Medical History Past Medical History: Asthma, Diabetes Mellitus, GERD/Reflux, Hypertension, Musculoskeletal Disorder, Neurologic Disorder, Sleep Apnea/CPAP/BIPAP, Thyroid Disorder Additional Past Medical History / Comment(s): MS, back pain, DDD, optic neuritis, Gastroparesis., C-Diff (June 2018) leukopenia (sores in mouth) migraines, sleep apnea due to M.S. (no machine), History of Any Multi-Drug Resistant Organisms: None Reported Year Discovered:: 2018 MDRO Source:: stool Past Surgical History: Bladder Surgery, Hernia Repair, Hysterectomy, Orthopedic Surgery, Tubal Ligation Additional Past Surgical History / Comment(s): rhinoplasty, bladder suspension, breast sx, morphine pump , RT KNEE SCOPE, TUMMY TUCK, Spinal cord stimulator inserted and removed. Past Anesthesia/Blood Transfusion Reactions: Motion Sickness, Postoperative Nausea & Vomiting (PONV) Past Psychological History: No Psychological Hx Reported Additional Psychological History / Comment(s): . Smoking Status: Never smoker Past Alcohol Use History: None Reported Past Drug Use History: None Reported - Past Family History Father History Unknown: Yes Family Medical History: No Reported History Additional Family Medical History / Comment(s): . Mother History Unknown: Yes Family Medical History: No Reported History Additional Family Medical History / Comment(s): NO FAMILY HISTORY Medications and Allergies Home Medications Medication Instructions Recorded Confirmed Type Albuterol Sulfate [Proair Hfa] 2 puff INHALATION RT-Q6H PRN 09/26/15 10/01/19 History Atorvastatin [Lipitor] 10 mg PO DAILY 09/26/15 10/01/19 History Montelukast [Singulair] 10 mg PO DAILY #30 tab 06/23/16 10/01/19 Rx DULoxetine HCL [Cymbalta] 60 mg PO QAM 01/10/17 10/01/19 History Ipratropium-Albuterol Nebulize 3 ml INHALATION RT-QID PRN 01/16/17 10/01/19 History [Duoneb 0.5 mg-3 mg/3 ml Soln] INSULIN LISPRO (HumaLOG) [humaLOG] See Protocol SQ ACHS PRN 01/19/17 10/01/19 History Cholecalciferol [Vitamin D3 (25 1,000 unit PO DAILY 03/03/17 10/01/19 History Mcg = 1000 Iu)] tiZANidine HCL [Zanaflex] 2 mg PO QID 06/15/17 10/01/19 History Scopolamine 1.5MG/72Hr Patch 1 patch TRANSDERM Q72H 07/07/17 10/01/19 History [TransDerm Scop] metFORMIN HCL [Glucophage] 500 mg PO BID #60 tab 02/10/18 10/01/19 Rx Acetaminophen-Codeine 300-30mg 1 tab PO TID PRN 12/05/18 10/01/19 History [Tylenol w/codeine #3] Levothyroxine Sodium [Synthroid] 112 mcg PO DAILY 12/05/18 10/01/19 History rOPINIRole HCL [Requip] 2 mg PO TID 12/05/18 10/01/19 History Erenumab-Aooe [Aimovig 140 mg SQ Q30D 01/15/19 10/01/19 History Autoinjector] Morphine Pump 8.93 dose SQ DAILY 01/15/19 10/01/19 History Metoprolol Tartrate [Lopressor] 12.5 mg PO BID #0 01/19/19 10/01/19 Rx Baclofen 20 mg PO QID 04/29/19 10/01/19 History Omeprazole [PriLOSEC] 20 mg PO DAILY 04/29/19 10/01/19 History Cyanocobalamin (Vitamin B-12) 1,000 mcg PO DAILY 10/01/19 10/01/19 History [Vitamin B-12] Allergies Allergy/AdvReac Type Severity Reaction Status Date / Time adhesive Allergy Severe Rash/Hives Verified 10/03/19 07:52 adhesive tape Allergy Severe Rash/Hives Verified 10/03/19 07:52 fentanyl Allergy Severe Rash/Hives Verified 10/03/19 07:52 from patch only latex Allergy Severe Rash/Hives Verified 10/03/19 07:52 metoclopramide [From Reglan] Allergy dystonia Verified 10/03/19 07:52 Physical Exam Vitals: Vital Signs Temp Pulse Resp BP Pulse Ox 10/03/19 14:07 57 L 16 99 10/03/19 13:40 86 16 117/73 10/03/19 13:10 71 16 119/74 100 10/03/19 12:24 62 16 103/67 100 10/03/19 12:04 68 18 108/61 100 10/03/19 10:35 62 16 107/64 100 10/03/19 10:13 55 L 18 108/70 99 10/03/19 09:56 63 20 125/82 98 10/03/19 09:40 61 18 129/78 97 10/03/19 09:25 69 18 130/84 96 10/03/19 09:10 65 16 130/75 99 10/03/19 08:55 63 16 119/76 99 10/03/19 08:05 96.8 F L 65 120/70 65 L Intake and Output 10/02/19 10/03/19 10/03/19 22:59 06:59 14:59 Intake Total 2852 Balance 2852 Intake: IV 2852 Other: Weight 114 kg General: The patient is awake and alert, in no distress Eye: there is normal conjunctiva bilaterally. Neck: The neck is supple, there is no JVD. Cardiovascular: Normal S1-S2, no S3-S4, no murmurs. Respiratory: Lungs clear to auscultation bilaterally Gastrointestinal: Abdomen is soft, nontender Musculoskeletal: There is no pedal edema. Neurological:. Speech is normal. Skin: Skin is warm and dry Results Labs: Abnormal Lab Results - Last 24 Hours (Table) 10/03/19 Range/Units 08:33 POC Glucose (mg/dL) 122 H (75-99) mg/dL Assessment and Plan Assessment: 1. Sinus bradycardia, postoperative probably secondary to fentanyl and medazepam use. Now resolved heart rate in the 60s and 70s. I would continue to hold her metoprolol and continue telemetry monitoring. Check thyroid function test. Consult cardiology for further evaluation. Patient denies any cardiac history otherwise. 2. Essential hypertension: Blood pressure within acceptable range. Discharge summary from May showed that patient also takes history that she reported that she took herself off of it. We will continue to monitor blood pressure. If blood pressure started to increase may consider starting different agent other than metoprolol for blood pressure control. 3. Acute migraine headache, will continue with Tylenol/caffeine, Benadryl, and IV morphine for severe pain. May be evaluated for blood patch procedure to [place]. 4. Underlying multiple sclerosis 5. Hypothyroidism on levothyroxine 6. DVT prophylaxis with SCD
[2019-10-03] MEDS ORDERED: diphenhydrAMINE 50 MG/ML 1 ML VIAL IVP ONE (14:58)
[2019-10-03] MEDS ORDERED: KETOROLAC 30 MG/ML 1 ML VIAL IVP ONE ×2 (14:59→22:53)
[2019-10-03 17:56] LABS: Glucose,Whole Blood 93 mg/dL (75-99)
[2019-10-03 19:09] LABS: African American GFR (CKD) >90 (>60 ml/min/1.73 sqM); Anion Gap 5 mmol/L; Basophils # (A) 0.1 k/uL (0-0.2); Basophils % (A) 1 %; Blood Urea Nitrogen 12 mg/dL (7-17); Calcium 8.6 mg/dL (8.4-10.2); Carbon Dioxide 24 mmol/L (22-30); Chloride 107 mmol/L (98-107); Eosinophils # (A) 0.2 k/uL (0-0.7); Eosinophils % (A) 3 %; Glucose 119 mg/dL (74-99); HCT 36.5 % (34.0-46.0); HGB 12.4 gm/dL (11.4-16.0); Lymphocytes # (A) 2.4 k/uL (1.0-4.8); Lymphocytes % (A) 34 %; MCH 30.7 pg (25.0-35.0); MCHC 34.1 g/dL (31.0-37.0); Magnesium 1.8 mg/dL (1.6-2.3); Mean Platelet Volume 7.3; Monocytes # (A) 0.3 k/uL (0-1.0); Monocytes % (A) 4 %; Neutrophils % (A) 56 %; Non-African American GFR(CKD) >90 (>60 ml/min/1.73 sqM); Platelet Count 315 k/uL (150-450); Potassium 4.2 mmol/L (3.5-5.1); RBC 4.06 m/uL (3.80-5.40); Sodium 136 mmol/L (137-145); WBC 7.1 k/uL (3.8-10.6)
[2019-10-03] MEDS: INSULIN ASPART (NovoLOG) 100 UNIT/ML VIAL SQ SCH ×2 (20:50→21:51)
[2019-10-03] MEDS: BACLOFEN 10 MG TAB PO SCH (21:48)
[2019-10-03] MEDS: diphenhydrAMINE 25 MG CAP PO SCH ×2 (21:48→23:10)
[2019-10-03 21:52] LABS: Glucose,Whole Blood 105 mg/dL (75-99)
[2019-10-04] MEDS ORDERED: KETOROLAC 30 MG/ML 1 ML VIAL IVP SCH
[2019-10-04] MEDS ORDERED: diphenhydrAMINE 50 MG/ML 1 ML VIAL IVP STA ×2 (03:47→10:30)
[2019-10-04] MEDS ORDERED: KETOROLAC 30 MG/ML 1 ML VIAL IVP ONE (03:48)
[2019-10-04] MEDS ORDERED: methylPREDNISolone SOD SUCCI 125 MG/2 ML VIAL IV STA (04:04)
[2019-10-04] MEDS ORDERED: LEVOTHYROXINE 112 MCG TAB PO SCH (06:30)
[2019-10-04 07:05] LABS: Glucose,Whole Blood 157 mg/dL (75-99)
[2019-10-04] MEDS ORDERED: PANTOPRAZOLE 40 MG TABLET PO SCH (07:30)
[2019-10-04 08:26] VITALS: BP 123/64; PULSE 70; RESP 12; TEMP 98.2
[2019-10-04] MEDS: diphenhydrAMINE 25 MG CAP PO SCH (08:26)
[2019-10-04] MEDS: INSULIN ASPART (NovoLOG) 100 UNIT/ML VIAL SQ SCH (08:27)
[2019-10-04] MEDS: BACLOFEN 10 MG TAB PO SCH (08:36)
[2019-10-04] MEDS ORDERED: ATORVASTATIN 10 MG TAB PO SCH (09:00)
[2019-10-04] MEDS ORDERED: DULoxetine HCL 60 MG CAPSULE.DR PO SCH (09:00)
[2019-10-04] MEDS ORDERED: MONTELUKAST 10 MG TAB PO SCH (09:00)
--- NOTE | 2019-10-04 11:24 | CONS ---
CONSULTATION This is a 49-year-old lady was admitted to the hospital and had a spinal tap. Subsequently developed spinal headache and while she was being observed here had an episode of bradycardia of a heart rate of about 38 beats per minute and I was asked to see her. The patient was asleep at that time. It was nearly 12:30 in the morning. She does have a diagnosis of obstructive sleep apnea. She was prescribed a CPAP, but for whatever reason she chose not to wear it. So, her bradycardia is probably asymptomatic related to underlying sleep apnea. She is comfortable, resting without any symptoms at the time of my evaluation. PAST MEDICAL HISTORY: Remarkable for type 2 diabetes mellitus, hypothyroidism, she also has some mild underlying depression and hyperlipidemia. MEDICATIONS: Medications at home include atorvastatin, metformin, insulin, levothyroxine, omeprazole, Singulair, and Lopressor 12.5 mg b.i.d. and vitamin supplements. ALLERGIES: ALLERGIC TO REGLAN AND FENTANYL. On examination, blood pressure is 124/70, pulse rate is 70 per minute regular. HEENT unremarkable. Fundus was not examined by me neck is supple. No JVD. I do not hear a carotid bruit. Heart exam reveals S1, S2 heard normally. No rub, murmur or gallop. Lungs are clear. Abdomen is soft, nontender. Lower extremities reveal normal pulses. No edema. Central nervous system is normal. EKG revealed sinus mechanism, no acute changes and no evidence of bradycardia. IMPRESSION: 1. Episode of asymptomatic bradycardia, probably related to underlying obstructive sleep apnea, which patient and was advised but not has not used CPAP. 2. Obesity. 3. Type 2 diabetes. 4. Hypertension. RECOMMENDATIONS: No intervention necessary. The patient is not on any rate-lowering agents. Her bradycardia is asymptomatic related to obstructive sleep apnea. I will see her as needed, but I will request Dr. Pedro to see her from a sleep apnea standpoint since he has seen and performed a sleep study not too long ago. Thank you very much for the consult. MMODL / IJN: [id number] /
--- NOTE | 2019-10-04 13:25 | P.DS ---
Providers Date of admission: 10/03/19 14:32 Expected date of discharge: 10/04/19 Attending physician: Keith Johnston MD Consults: 10/03/19 13:18 Consult Physician Routine Consulting Provider: Morgan Pelayo Consult Reason/Comments: bradycardia Do you want consulting provider notified?: Yes 10/03/19 14:34 Consult Physician Routine Consulting Provider: Kayla Saavedra Consult Reason/Comments: bradycardia Do you want consulting provider notified?: Yes 10/03/19 15:15 Consult Physician Routine Consulting Provider: Keith Johnston Consult Reason/Comments: continue care Do you want consulting provider notified?: Yes, Notify in am Primary care physician: [facility] Course: Patient is a 49-year-old female with PMH of multiple sclerosis, chronic pain syndrome and morbid obesity presented to the ED for outpatient lumbar puncture. Patient was noted to be bradycardic with heart rate in the high 30s and low 40s after her lumbar puncture. She also had complaints of right-sided headache and numbness in her arm. 12-lead EKG was done which showed normal sinus rhythm with sinus bradycardia. She did receive fentanyl and midazolam for sedation during the lumbar puncture. She was on metoprolol at home. She was admitted for observation. Cardiology was consulted and recommended discontinuing metoprolol at home as discussed with nursing. TSH was within normal limits. Anesthesiology was consulted and recommended no further management or blood patch. Patient was seen and examined. No acute events overnight. Patient reports continued right-sided headache but appears comfortable. She is requesting IV Benadryl. She denies any chest pain, shortness of breath or palpitations. No nausea or vomiting. No fever or chills. General: [non toxic], [no distress. obese], [appears at stated age] Derm: [warm], [dry] Head: [atraumatic], [normocephalic], [symmetric] Eyes: [EOMI], [no lid lag], [anicteric sclera] Mouth: [no lip lesion], [mucus membranes moist] Cardiovascular: [S1S2 reg], [bradycardic], [positive DP pulse bilateral], Lungs: [CTA bilateral], [no rhonchi, no rales] , [no accessory muscle use] Abdominal: [soft], [ nontender to palpation], [no guarding], [no appreciable organomegaly] Ext: [no gross muscle atrophy], [no edema], [no contractures] Neuro: [no focal neuro deficits] Psych: [Alert], [oriented], [appropriate affect] Sinus bradycardia Hypertension Dyslipidemia Migraine headache Chronic conditions: Multiple sclerosis, hypothyroidism Patient's heart rate is in the 60s. Cardiology has evaluated the patient and recommends discontinuing metoprolol. Thyroid function is within normal limits. Her sinus bradycardia is likely multifactorial related to fentanyl, medazepam, metoprolol induced. She is asymptomatic. Her blood pressure has been within normal limits during her admission. As metoprolol has been discontinued, we'll start the patient on hydrochlorothiazide by mouth. Continue Lipitor for dyslipidemia. Continue Synthroid for hypothyroidism. Patient will be given an appointment with cardiology, anesthesiology and neurology. Plans on DC home today. Pertinent Studies: EKG Patient Condition at Discharge: Stable Plan - Discharge Summary Discharge Rx Participant: No New Discharge Prescriptions: New Hydrochlorothiazide 12.5 mg PO DAILY #30 capsule Continue Atorvastatin [Lipitor] 10 mg PO DAILY Albuterol Sulfate [Proair Hfa] 2 puff INHALATION RT-Q6H PRN PRN Reason: Shortness Of Breath Montelukast [Singulair] 10 mg PO DAILY #30 tab DULoxetine HCL [Cymbalta] 60 mg PO QAM Ipratropium-Albuterol Nebulize [Duoneb 0.5 mg-3 mg/3 ml Soln] 3 ml INHALATION RT-QID PRN PRN Reason: Shortness Of Breath INSULIN LISPRO (HumaLOG) [humaLOG] See Protocol SQ ACHS PRN PRN Reason: Blood Sugar - High Cholecalciferol [Vitamin D3 (25 Mcg = 1000 Iu)] 1,000 unit PO DAILY tiZANidine HCL [Zanaflex] 2 mg PO QID Scopolamine 1.5MG/72Hr Patch [TransDerm Scop] 1 patch TRANSDERM Q72H metFORMIN HCL [Glucophage] 500 mg PO BID #60 tab rOPINIRole HCL [Requip] 2 mg PO TID Levothyroxine Sodium [Synthroid] 112 mcg PO DAILY Erenumab-Aooe [Aimovig Autoinjector] 140 mg SQ Q30D Morphine Pump 8.93 dose SQ DAILY Omeprazole [PriLOSEC] 20 mg PO DAILY Baclofen 20 mg PO QID Cyanocobalamin (Vitamin B-12) [Vitamin B-12] 1,000 mcg PO DAILY Discontinued Acetaminophen-Codeine 300-30mg [Tylenol w/codeine #3] 1 tab PO TID PRN PRN Reason: Pain Metoprolol Tartrate [Lopressor] 12.5 mg PO BID #0 Discharge Medication List Albuterol Sulfate [Proair Hfa] 2 puff INHALATION RT-Q6H PRN 09/26/15 [History] Atorvastatin [Lipitor] 10 mg PO DAILY 09/26/15 [History] Montelukast [Singulair] 10 mg PO DAILY #30 tab 06/23/16 [Rx] DULoxetine HCL [Cymbalta] 60 mg PO QAM 01/10/17 [History] Ipratropium-Albuterol Nebulize [Duoneb 0.5 mg-3 mg/3 ml Soln] 3 ml INHALATION RT-QID PRN 01/16/17 [History] INSULIN LISPRO (HumaLOG) [humaLOG] See Protocol SQ ACHS PRN 01/19/17 [History] Cholecalciferol [Vitamin D3 (25 Mcg = 1000 Iu)] 1,000 unit PO DAILY 03/03/17 [History] tiZANidine HCL [Zanaflex] 2 mg PO QID 06/15/17 [History] Scopolamine 1.5MG/72Hr Patch [TransDerm Scop] 1 patch TRANSDERM Q72H 07/07/17 [History] metFORMIN HCL [Glucophage] 500 mg PO BID #60 tab 02/10/18 [Rx] Levothyroxine Sodium [Synthroid] 112 mcg PO DAILY 12/05/18 [History] rOPINIRole HCL [Requip] 2 mg PO TID 12/05/18 [History] Erenumab-Aooe [Aimovig Autoinjector] 140 mg SQ Q30D 01/15/19 [History] Morphine Pump 8.93 dose SQ DAILY 01/15/19 [History] Baclofen 20 mg PO QID 04/29/19 [History] Omeprazole [PriLOSEC] 20 mg PO DAILY 04/29/19 [History] Cyanocobalamin (Vitamin B-12) [Vitamin B-12] 1,000 mcg PO DAILY 10/01/19 [History] Hydrochlorothiazide 12.5 mg PO DAILY #30 capsule 10/04/19 [Rx] Follow up Appointment(s)/Referral(s): Landen Demarco MD [STAFF PHYSICIAN] - 1 Week Keith Johnston MD [STAFF PHYSICIAN] - 1 Week Maura No MD [Medical Doctor] - 1 Week Patient Instructions/Handouts: *Surgery [facility] - Lumbar Puncture Discharge Instructions Activity/Diet/Wound Care/Special Instructions: Diet: Low salt FU PCP within 3 days of DC. FU Cardiology, Anesthesia and Neurology within 1 week of DC. Take all meds as advised. DC Metoprolol and start HCTZ Come back to the ED or call 911 for worsening intractable RAMON, CP, SOB, palpitations, dizziness. Discharge/Stand Alone Forms: Anes Pain/Wismer Instructions Discharge Disposition: HOME SELF-CARE
[2019-10-09 12:20] LABS: IgG - CSF 0.8 mg/dL (0.0 - 3.4); IgG/Albumin Index (CSF) 0.48 (0.00 - 0.77); Immunoglobulin G 552 mg/dL (700 - 1600)
== END 2019-10-04 12:32 | disposition home or self-care (01) ==
LOC: ORPAIN 07:40 → 1SOBS 14:32 → ORPAIN 14:32 → 1SOBS 17:31
PROVIDERS: ADMIT Anesthesiology; ATTEND Anesthesiology
DX: R90.82 White matter disease, unspecified (principal); G35 Multiple sclerosis; E03.9 Hypothyroidism, unspecified; G89.4 Chronic pain syndrome; E66.01 Morbid (severe) obesity due to excess calories; R00.1 Bradycardia, unspecified; G43.909 Migraine, unspecified, not intractable, without status migrainosus; J45.909 Unspecified asthma, uncomplicated; E11.9 Type 2 diabetes mellitus without complications; K21.9 Gastro-esophageal reflux disease without esophagitis; I10 Essential (primary) hypertension; G47.33 Obstructive sleep apnea (adult) (pediatric); H46.9 Unspecified optic neuritis; E11.43 Type 2 diabetes mellitus with diabetic autonomic (poly)neuropathy; K31.84 Gastroparesis; Z98.890 Other specified postprocedural states; Z90.710 Acquired absence of both cervix and uterus; Z98.51 Tubal ligation status; Z86.19 Personal history of other infectious and parasitic diseases; Z79.899 Other long term (current) drug therapy; Z79.4 Long term (current) use of insulin; Z79.890 Hormone replacement therapy; Z79.891 Long term (current) use of opiate analgesic; Z91.048 Other nonmedicinal substance allergy status; Z91.040 Latex allergy status; Z88.8 Allergy status to other drugs, medicaments and biological substances; E78.5 Hyperlipidemia, unspecified; F32.9 Major depressive disorder, single episode, unspecified
CPT/HCPCS: 62270; 93005; 88108; 84157; 80048; 84443; 82040; 82042; 82784; 83916; 83735; 85025; 81025; 87801; G0378 ×2; J2250; J1200 ×2; J2930; J2405; J1642; J3010; J1885 ×2; J2270; 99152

== ENCOUNTER 2019-10-10 15:27 | Observation (INO) | payer BC, MEDICARE ==
[2019-10-10] MEDS ORDERED: CAFFEINE-SODIUM BENZOATE 500 MG in SODIUM CHLORIDE 0.9% 1,000 ML IVPB ONE (16:14)
[2019-10-10] MEDS ORDERED: diphenhydrAMINE 50 MG/ML 1 ML VIAL IVP STA (16:14)
[2019-10-10] MEDS ORDERED: MAGNESIUM SULFATE-D5W PMX 1 GM in DEXTROSE/WATER 1 100ML.BAG IVPB ONE (16:18)
[2019-10-10] MEDS ORDERED: DEXAMETHASONE SOD PHOSPHATE 10 MG/ML 1 ML VIAL IV STA (16:18)
[2019-10-10 17:24] LABS: Basophils % (A) 1 %; Eosinophils # (A) 0.3 k/uL (0-0.7); Eosinophils % (A) 4 %; HGB 12.8 gm/dL (11.4-16.0); Lymphocytes # (A) 2.1 k/uL (1.0-4.8); Lymphocytes % (A) 23 %; MCH 28.3 pg (25.0-35.0); MCV 88.2 fL (80.0-100.0); Mean Platelet Volume 7.8; Monocytes # (A) 0.4 k/uL (0-1.0); Monocytes % (A) 5 %; Neutrophils % (A) 67 %; Platelet Count 308 k/uL (150-450); RBC 4.54 m/uL (3.80-5.40); RDW 13.3 % (11.5-15.5)
[2019-10-10 17:39] LABS: ALT 14 U/L (4-34); AST 18 U/L (14-36); African American GFR (CKD) >90 (>60 ml/min/1.73 sqM); Albumin 3.7 g/dL (3.5-5.0); Alkaline Phosphatase 64 U/L (38-126); Anion Gap 6 mmol/L; Blood Urea Nitrogen 9 mg/dL (7-17); Calcium 9.2 mg/dL (8.4-10.2); Carbon Dioxide 25 mmol/L (22-30); Chloride 107 mmol/L (98-107); Glucose 104 mg/dL (74-99); Non-African American GFR(CKD) >90 (>60 ml/min/1.73 sqM); Potassium 4.1 mmol/L (3.5-5.1); Sodium 138 mmol/L (137-145); Total Bilirubin 0.4 mg/dL (0.2-1.3); Total Protein 5.9 g/dL (6.3-8.2)
[2019-10-10 18:05] LABS: INR 0.9 (<1.2); Prothrombin Time 9.5 sec (9.0-12.0)
[2019-10-10 18:09] LABS: Partial Thromboplastin Time 21.5 sec (22.0-30.0)
--- NOTE | 2019-10-10 18:21 | ED ---
Headache HPI - General Chief Complaint: Headache Stated Complaint: Migraine, low Vitamin D Time Seen by Provider: 10/10/19 15:58 Mode of arrival: ambulatory Limitations: no limitations - History of Present Illness Initial Comments: Patient is a 49-year-old female past nuchal history of MS who presents to the emergency department after she lumbar puncture on the second. She was kept overnight in the hospital. She had a headache while hospitalized and she reports that they thought about doing a blood patch however she went home and felt somewhat improved. They afterward she began having a throbbing headache every time she got up and ambulated. She denies any fevers or chills. No visual changes. No unilateral numbness or weakness. Denies any neck stiffness. Does admit to nausea without vomiting. She sees Dr. No in office. She did not take any medications for her headache. There are no other alleviating, precipitating or modifying factors - Related Data Home Medications Medication Instructions Recorded Confirmed Albuterol Sulfate [Proair Hfa] 2 puff INHALATION RT-Q6H PRN 09/26/15 10/10/19 Atorvastatin [Lipitor] 10 mg PO DAILY 09/26/15 10/10/19 DULoxetine HCL [Cymbalta] 60 mg PO DAILY 01/10/17 10/10/19 Ipratropium-Albuterol Nebulize 3 ml INHALATION RT-QID PRN 01/16/17 10/10/19 [Duoneb 0.5 mg-3 mg/3 ml Soln] INSULIN LISPRO (HumaLOG) [humaLOG] See Protocol SQ ACHS PRN 01/19/17 10/10/19 Cholecalciferol [Vitamin D3 (25 1,000 unit PO DAILY 03/03/17 10/10/19 Mcg = 1000 Iu)] tiZANidine HCL [Zanaflex] 2 mg PO Q6H PRN 06/15/17 10/10/19 Scopolamine 1.5MG/72Hr Patch 1 patch TRANSDERM Q72H 07/07/17 10/10/19 [TransDerm Scop] Levothyroxine Sodium [Synthroid] 112 mcg PO DAILY 12/05/18 10/10/19 rOPINIRole HCL [Requip] 2 mg PO TID 12/05/18 10/10/19 Erenumab-Aooe [Aimovig 140 mg SQ Q30D 01/15/19 10/10/19 Autoinjector] Baclofen 20 mg PO QID 04/29/19 10/10/19 Omeprazole [PriLOSEC] 20 mg PO DAILY 04/29/19 10/10/19 Cyanocobalamin (Vitamin B-12) 1,000 mcg PO DAILY 10/01/19 10/10/19 [Vitamin B-12] Morphine Pain Pump 1 dose INTRATHECA CONTINUOUS 10/10/19 10/10/19 Previous Rx's Medication Instructions Recorded Montelukast [Singulair] 10 mg PO DAILY #30 tab 06/23/16 metFORMIN HCL [Glucophage] 500 mg PO BID #60 tab 02/10/18 Hydrochlorothiazide 12.5 mg PO DAILY #30 capsule 10/04/19 Allergies Allergy/AdvReac Type Severity Reaction Status Date / Time adhesive Allergy Severe Rash/Hives Verified 10/10/19 16:42 adhesive tape Allergy Severe Rash/Hives Verified 10/10/19 16:42 fentanyl Allergy Severe Rash/Hives Verified 10/10/19 16:42 from patch only latex Allergy Severe Rash/Hives Verified 10/10/19 16:42 metoclopramide [From Reglan] Allergy dystonia Verified 10/10/19 16:42 Review of Systems ROS Statement: Those systems with pertinent positive or pertinent negative responses have been documented in the HPI. ROS Other: All systems not noted in ROS Statement are negative. Past Medical History Past Medical History: Asthma, Diabetes Mellitus, GERD/Reflux, Hypertension, Musculoskeletal Disorder, Neurologic Disorder, Sleep Apnea/CPAP/BIPAP, Thyroid Disorder Additional Past Medical History / Comment(s): MS, back pain, DDD, optic neuritis, Gastroparesis., C-Diff (June 2018) leukopenia (sores in mouth) migraines, sleep apnea due to M.S. (no machine), sarcoidosis History of Any Multi-Drug Resistant Organisms: None Reported Date of last positivie culture/infection: 2018 MDRO Source:: stool Past Surgical History: Bladder Surgery, Hernia Repair, Hysterectomy, Orthopedic Surgery, Tubal Ligation Additional Past Surgical History / Comment(s): rhinoplasty, bladder suspension, breast sx, morphine pump , RT KNEE SCOPE, TUMMY TUCK, Spinal cord stimulator inserted and removed. port august 2019 Past Anesthesia/Blood Transfusion Reactions: Motion Sickness, Postoperative Nausea & Vomiting (PONV) Past Psychological History: No Psychological Hx Reported Smoking Status: Never smoker Past Alcohol Use History: None Reported Past Drug Use History: None Reported - Past Family History Father History Unknown: Yes Family Medical History: No Reported History Additional Family Medical History / Comment(s): . Mother History Unknown: Yes Family Medical History: No Reported History Additional Family Medical History / Comment(s): NO FAMILY HISTORY General Exam Limitations: no limitations General appearance: alert, in no apparent distress Head exam: Present: atraumatic, normocephalic, normal inspection Eye exam: Present: normal appearance, PERRL, EOMI. Absent: scleral icterus, conjunctival injection, periorbital swelling ENT exam: Present: normal exam, mucous membranes moist Neck exam: Present: normal inspection. Absent: tenderness, meningismus, lymphadenopathy Respiratory exam: Present: normal lung sounds bilaterally. Absent: respiratory distress, wheezes, rales, rhonchi, stridor Cardiovascular Exam: Present: regular rate, normal rhythm, normal heart sounds. Absent: systolic murmur, diastolic murmur, rubs, gallop, clicks GI/Abdominal exam: Present: soft, normal bowel sounds. Absent: distended, tenderness, guarding, rebound, rigid Extremities exam: Present: normal inspection, full ROM, normal capillary refill. Absent: tenderness, pedal edema, joint swelling, calf tenderness Back exam: Present: normal inspection Neurological exam: Present: alert, oriented X3, CN II-XII intact Psychiatric exam: Present: normal affect, normal mood Skin exam: Present: warm, dry, intact, normal color. Absent: rash Course Vital Signs 10/10/19 10/10/19 15:30 18:26 Temperature 98.2 F Pulse Rate 81 73 Respiratory 18 18 Rate Blood Pressure 138/91 124/81 O2 Sat by Pulse 99 100 Oximetry Medical Decision Making - Medical Decision Making Upon arrival the patient was placed into room 10. Her history and physical exam was performed. We did access the patient's port. Patient was given 50 mg of Benadryl, 10 mg of Decadron, 1 g of magnesium and 500 mg back caffeine. Laboratory studies were conducted. Lab studies all within normal range. Patient is reevaluated and continues to complain of an intractable headache. I discussed the patient's care with Dr. Fernandez of anesthesiology who presents emergency Department. He does not feel patient would benefit from a blood patch as he does not believe that the patient is having spinal headache at this time. He recommended a CT of the patient's brain for which the patient does go over to. CT is read as no acute intracranial hemorrhage or midline shift. No signif icant change from prior. He does recommend that the patient be started on steroids and Fioricet. I did provide the patient with a dose of Toradol for which she does not get any relief. Patient continues to report 10 out of 10 pain and therefore I did give her a dose of Dilaudid. As the patient is having an intractable headache and I am having difficulty controlling her pain. Recommend hospital admission for neurology evaluation. Patient does agree to this. I discussed case with Dr. Ferreira who accepted admission. Patient transported to floor in stable condition - Lab Data Result diagrams: 10/10/19 17:00 10/10/19 17:00 Lab Results 10/10/19 10/10/19 10/10/19 Range/Units 17:00 17:00 17:00 WBC 9.0 (3.8-10.6) k/uL RBC 4.54 (3.80-5.40) m/uL Hgb 12.8 (11.4-16.0) gm/dL Hct 40.0 (34.0-46.0) % MCV 88.2 (80.0-100.0) fL MCH 28.3 (25.0-35.0) pg MCHC 32.0 (31.0-37.0) g/dL RDW 13.3 (11.5-15.5) % Plt Count 308 (150-450) k/uL Neutrophils % 67 % Lymphocytes % 23 % Monocytes % 5 % Eosinophils % 4 % Basophils % 1 % Neutrophils # 6.0 (1.3-7.7) k/uL Lymphocytes # 2.1 (1.0-4.8) k/uL Monocytes # 0.4 (0-1.0) k/uL Eosinophils # 0.3 (0-0.7) k/uL Basophils # 0.0 (0-0.2) k/uL PT 9.5 (9.0-12.0) sec INR 0.9 (<1.2) APTT 21.5 L (22.0-30.0) sec Sodium 138 (137-145) mmol/L Potassium 4.1 (3.5-5.1) mmol/L Chloride 107 (98-107) mmol/L Carbon Dioxide 25 (22-30) mmol/L Anion Gap 6 mmol/L BUN 9 (7-17) mg/dL Creatinine 0.59 (0.52-1.04) mg/dL Est GFR (CKD-EPI)AfAm >90 (>60 ml/min/1.73 sqM) Est GFR (CKD-EPI)NonAf >90 (>60 ml/min/1.73 sqM) Glucose 104 H (74-99) mg/dL Calcium 9.2 (8.4-10.2) mg/dL Total Bilirubin 0.4 (0.2-1.3) mg/dL AST 18 (14-36) U/L ALT 14 (4-34) U/L Alkaline Phosphatase 64 (38-126) U/L Total Protein 5.9 L (6.3-8.2) g/dL Albumin 3.7 (3.5-5.0) g/dL Disposition Clinical Impression: Intractable headache Disposition: ADMITTED IP TO THIS [facility] Condition: Stable Is patient prescribed a controlled substance at d/c from ED?: No Decision to Admit Reason: Admit from EC Decision Date: 10/10/19 Decision Time: 20:23
[2019-10-10] MEDS ORDERED: ONDANSETRON 4 MG/2 ML VIAL IVP STA (18:55)
[2019-10-10] MEDS ORDERED: KETOROLAC 30 MG/ML 1 ML VIAL IVP STA (19:23)
--- NOTE | 2019-10-10 19:49 | CT ---
EXAMINATION TYPE: CT brain wo con DATE OF EXAM: 10/10/2019 COMPARISON: CT brain December 11, 2015. MRI brain October 23, 2017. HISTORY: RAMON post lumbar puncture on 10/03/19 CT DLP: 1147.4 mGycm. Automated Exposure Control for Dose Reduction was Utilized. TECHNIQUE: CT scan of the head is performed without contrast. FINDINGS: There is no acute intracranial hemorrhage, mass effect, or midline shift identified. The ventricles and sulci are within normal limits in size. Blum-white matter differentiation fairly well maintained. The globes are intact and the visualized sinuses are clear. IMPRESSION: No acute intracranial hemorrhage or midline shift is seen. No significant change from pr ior studies.
[2019-10-10] MEDS ORDERED: HYDROmorphone 1 MG/ML 1 ML SYRINGE IVP STA (20:05)
[2019-10-10] MEDS ORDERED: NALOXONE 0.4 MG/ML 1 ML VIAL IV PRN (20:23)
[2019-10-10] MEDS ORDERED: ONDANSETRON 4 MG/2 ML VIAL IVP PRN (20:23)
[2019-10-10] MEDS ORDERED: ALBUTEROL HFA INHALER INHALATION PRN (20:24)
[2019-10-10] MEDS ORDERED: tiZANidine 4 MG TAB PO PRN (20:24)
[2019-10-10] MEDS ORDERED: IPRATROPIUM-ALBUTEROL 3 ML NEB INHALATION PRN (20:24)
[2019-10-10] MEDS ORDERED: PATIENT'S OWN (Morphine Pain Pump 1 DOSE) MISCELLANE SCH (20:30)
[2019-10-10] MEDS ORDERED: diphenhydrAMINE 50 MG/ML 1 ML VIAL IVP SCH (20:30)
[2019-10-10] MEDS: SODIUM CHLORIDE 0.9% 1,000 ML IV SCH (20:51)
[2019-10-10] MEDS ORDERED: SCOPOLAMINE 1.5MG/72HR PATCH TRANSDERM SCH (21:00)
[2019-10-10] MEDS: BACLOFEN 10 MG TAB PO SCH (21:36)
[2019-10-10] MEDS: INSULIN ASPART (NovoLOG) 100 UNIT/ML VIAL SQ SCH (21:37)
[2019-10-10] MEDS: diphenhydrAMINE 50 MG/ML 1 ML VIAL IVP SCH (23:19)
[2019-10-10] MEDS: KETOROLAC 30 MG/ML 1 ML VIAL IVP PRN (23:58)
[2019-10-11] MEDS: diphenhydrAMINE 50 MG/ML 1 ML VIAL IVP SCH ×2 (05:50→11:46)
[2019-10-11] MEDS: KETOROLAC 30 MG/ML 1 ML VIAL IVP PRN ×2 (05:51→11:47)
[2019-10-11 06:07] LABS: Glucose,Whole Blood 138 mg/dL (75-99)
[2019-10-11] MEDS ORDERED: LEVOTHYROXINE 112 MCG TAB PO SCH (06:30)
[2019-10-11] MEDS ORDERED: PANTOPRAZOLE 40 MG TABLET PO SCH (07:30)
[2019-10-11] MEDS ORDERED: CHOLECALCIFEROL 1,000 UNIT TAB PO SCH (09:00)
[2019-10-11] MEDS ORDERED: MONTELUKAST 10 MG TAB PO SCH (09:00)
[2019-10-11] MEDS ORDERED: hydroCHLOROthiazide 12.5 MG CAP PO SCH (09:00)
[2019-10-11] MEDS ORDERED: ATORVASTATIN 10 MG TAB PO SCH (09:00)
[2019-10-11] MEDS ORDERED: DULoxetine HCL 60 MG CAPSULE.DR PO SCH (09:00)
[2019-10-11] MEDS: INSULIN ASPART (NovoLOG) 100 UNIT/ML VIAL SQ SCH ×2 (09:18→11:54)
[2019-10-11] MEDS: BACLOFEN 10 MG TAB PO SCH ×2 (09:27→12:52)
[2019-10-11] MEDS ORDERED: OXYMETAZOLINE 0.05% NASL SPRAY 1 SPRAY BOTTLE ONE (09:31)
[2019-10-11 10:18] VITALS: RESP 16; TEMP 98.4
[2019-10-11] MEDS ORDERED: OXYMETAZOLINE 0.05% NASL SPRAY 1 SPRAY BOTTLE EA NOSTRIL ONE (10:25)
[2019-10-11] MEDS ORDERED: SODIUM CHLORIDE 0.9% 1,000 ML IV ONE (10:36)
[2019-10-11] MEDS ORDERED: CYANOCOBALAMIN 500 MCG TAB PO SCH (10:45)
--- NOTE | 2019-10-11 10:59 | P.CNNES ---
History of Present Illness Consult date: 10/11/19 Requesting physician: Joi Cid Reason for Consult: Intractable headache History of Present Illness: Patient is a 49-year-old female who carries a diagnosis of relapsing remitting multiple sclerosis. Patient follows up with Dr. Oliver in his office. I have seen patient previously on 01/16/2019 as well. Patient tells me that she has been diagnosed with multiple sclerosis in 2019. She has previously failed numerous MS medications. Patient most recently was on on Copaxone. Patient previously was JCV positive index of 3.11. Patient has previously failedOcrevus, Aubagio, Gilenya due to possible side effects. Patient states that she had undergone lumbar puncture to her neurology office on 10/03/2019. This was performed because her initial lumbar puncture that was performed "was lost". Patient since the lumbar puncture has been having headaches. Patient went to her PCP, who diagnosed her with vitamin D deficiency of 13. Because she has "severe gastroparesis", she was recommended vitamin D replacement intravenous Nissley, therefore she came to the hospital. Patient has been having headaches with nausea vomiting. Patient also is on Aimovig 140 mg, which she took on 10/07/2019. Patient does not take any abortive treatment for migraines. She does have morphine pain pump. Also on Cymbalta, Zanaflex, baclofen. Patient states that she is going for sphenopalatine ganglion block by her anesthesiologist for headaches. Patient's blood tests from 09/19/2017 showed vitamin D of 22.1, folate 10.2, TSH is normal vitamin B1 46 B12 453, hemoglobin A1c 6.5 on 04/01/2018. Patient's CSF from 10/03/2019 showed negative oligoclonal bands. Synthesis rate is 0. IgG index negative. Total protein 80 which is normal. Previous rheumatoid factor, MORGAN negative. Lyme titer negative. Review of Systems Complains of headaches. Denies double vision loss of vision. Denies hoarseness, sore throat, dysphagia. Denies abdominal pain nausea vomiting diarrhea. She does have gastroparesis. All other review of systems unremarkable. Past Medical History Past Medical History: Asthma, Diabetes Mellitus, GERD/Reflux, Hypertension, Musculoskeletal Disorder, Neurologic Disorder, Sleep Apnea/CPAP/BIPAP, Thyroid Disorder Additional Past Medical History / Comment(s): MS, back pain, DDD, optic neuritis, Gastroparesis., C-Diff (June 2018) leukopenia (sores in mouth) migraines, sleep apnea due to M.S. (no machine), sarcoidosis History of Any Multi-Drug Resistant Organisms: None Reported Date of last positivie culture/infection: 2018 MDRO Source:: stool Past Surgical History: Bladder Surgery, Hernia Repair, Hysterectomy, Orthopedic Surgery, Tubal Ligation Additional Past Surgical History / Comment(s): rhinoplasty, bladder suspension, breast sx, morphine pump , RT KNEE SCOPE, TUMMY TUCK, Spinal cord stimulator inserted and removed. port august 2019 Past Anesthesia/Blood Transfusion Reactions: Motion Sickness, Postoperative Nausea & Vomiting (PONV) Past Psychological History: No Psychological Hx Reported Smoking Status: Never smoker Past Alcohol Use History: None Reported Past Drug Use History: None Reported - Past Family History Father History Unknown: Yes Family Medical History: No Reported History Additional Family Medical History / Comment(s): . Mother History Unknown: Yes Family Medical History: No Reported History Additional Family Medical History / Comment(s): NO FAMILY HISTORY Medications and Allergies Home Medications Medication Instructions Recorded Confirmed Type Albuterol Sulfate [Proair Hfa] 2 puff INHALATION RT-Q6H PRN 09/26/15 10/10/19 History Atorvastatin [Lipitor] 10 mg PO DAILY 09/26/15 10/10/19 History Montelukast [Singulair] 10 mg PO DAILY #30 tab 06/23/16 10/10/19 Rx DULoxetine HCL [Cymbalta] 60 mg PO DAILY 01/10/17 10/10/19 History Ipratropium-Albuterol Nebulize 3 ml INHALATION RT-QID PRN 01/16/17 10/10/19 History [Duoneb 0.5 mg-3 mg/3 ml Soln] INSULIN LISPRO (HumaLOG) [humaLOG] See Protocol SQ ACHS PRN 01/19/17 10/10/19 History Cholecalciferol [Vitamin D3 (25 1,000 unit PO DAILY 03/03/17 10/10/19 History Mcg = 1000 Iu)] tiZANidine HCL [Zanaflex] 2 mg PO Q6H PRN 06/15/17 10/10/19 History Scopolamine 1.5MG/72Hr Patch 1 patch TRANSDERM Q72H 07/07/17 10/10/19 History [TransDerm Scop] metFORMIN HCL [Glucophage] 500 mg PO BID #60 tab 02/10/18 10/10/19 Rx Levothyroxine Sodium [Synthroid] 112 mcg PO DAILY 12/05/18 10/10/19 History rOPINIRole HCL [Requip] 2 mg PO TID 12/05/18 10/10/19 History Erenumab-Aooe [Aimovig 140 mg SQ Q30D 01/15/19 10/10/19 History Autoinjector] Baclofen 20 mg PO QID 04/29/19 10/10/19 History Omeprazole [PriLOSEC] 20 mg PO DAILY 04/29/19 10/10/19 History Cyanocobalamin (Vitamin B-12) 1,000 mcg PO DAILY 10/01/19 10/10/19 History [Vitamin B-12] Hydrochlorothiazide 12.5 mg PO DAILY #30 capsule 10/04/19 10/10/19 Rx Morphine Pain Pump 1 dose INTRATHECA CONTINUOUS 10/10/19 10/10/19 History Allergies Allergy/AdvReac Type Severity Reaction Status Date / Time adhesive Allergy Severe Rash/Hives Verified 10/10/19 16:42 adhesive tape Allergy Severe Rash/Hives Verified 10/10/19 16:42 fentanyl Allergy Severe Rash/Hives Verified 10/10/19 16:42 from patch only latex Allergy Severe Rash/Hives Verified 10/10/19 16:42 metoclopramide [From Reglan] Allergy dystonia Verified 10/10/19 16:42 Physical Examination - Vital Signs Vital Signs: Vital Signs Temp Pulse Pulse Resp BP BP Pulse Ox 10/11/19 08:23 98.4 F 58 L 16 109/58 99 10/11/19 04:00 98.7 F 73 14 10/11/19 00:00 98.0 F 73 14 107/56 93 L 10/10/19 21:25 99.3 F 70 16 133/83 96 10/10/19 21:00 98.6 F 71 18 136/57 96 10/10/19 18:26 73 18 124/81 100 10/10/19 15:30 98.2 F 81 18 138/91 99 Intake and Output 10/10/19 10/11/19 10/11/19 22:59 06:59 14:59 Intake Total 480 Balance 480 Intake: Oral 480 Other: # Voids 1 Weight 111.13 kg On examination patient is a middle aged female, laying comfortably in the bed. Patient is alert awake fully oriented. Speech and language functions are normal. Attention, concentration and fund of knowledge is adequate. On cranial exam showed pupils are round and reactive to light, visual leung appears full, face is symmetric, tongue protrudes midline. Palatal elevation and sensation normal. Shoulder shrug normal. On muscle strength testing, there is no pronator drift and the strength is normal in arms and legs. Reflexes are 1+ to 2 and plantars downgoing. Sensory touch is equal. No ataxia for fin jersey-to-nose testing. Tone and bulk of muscles normal. Gait deferred. No obvious bruit or murmur, peripheral pulses present. Abdomen soft nontender. Chest clear. Results - Laboratory Findings CBC and BMP: 10/10/19 17:00 10/10/19 17:00 Abnormal Lab Findings: Abnormal Labs 10/10/19 10/10/19 10/11/19 17:00 17:00 06:06 APTT 21.5 L Glucose 104 H POC Glucose (mg/dL) 138 H Total Protein 5.9 L Assessment and Plan Assessment: * Cephalgia, possible post spinal headache. Patient does have a history of chronic headaches. * Reported history of multiple sclerosis. Patient's spinal fluid is negative for oligoclonal bands or IgG index. Her previous MRI of the brain did not reveal significant white matter lesions. * History of gastroparesis. * History of vitamin D deficiency. Her vitamin D level was borderline 22 previously. Plan: * Patient is currently undergoing sphenopalatine ganglion block for headache. * Patient should follow-up with her neurologist regarding interpretation of spinal for examination, and possible MS. * Neurologically clear.
[2019-10-11 11:39] VITALS: BP 107/72; PULSE 58
[2019-10-11 11:45] LABS: Glucose,Whole Blood 112 mg/dL (75-99)
[2019-10-11] MEDS: SODIUM CHLORIDE 0.9% 1,000 ML IV SCH (11:48)
--- NOTE | 2019-10-11 13:01 | P.PAINCN ---
History of Present Illness - Reason for Consult Consult date: 10/11/19 (7 AM) - History of Present Illness This is a 49-year-old patient who was seen and examined at bedside at 7 AM on 10/11/2019. She has a chief complaint of headache. She was referred by Dr. Dixon, ED physician. Her past medical history is significant for chronic headaches, migraines, multiple sclerosis. She underwent lumbar puncture for multiple sclerosis on 10/03/2019. At that time, she had significant headache in the recovery room, she was admitted to observation for pain management, discharg ed the next day. Her pain at the time was not felt to be post dural puncture headache and pain was improving on discharge. However, 2 days later, she noticed a headache of different character, which was positional, worse when sitting up, better when laying down, frontal in nature, described as throbbing, rated as 8-10/10 in intensity. She presented to the emergency room last night. She underwent a computed tomography scan of the head which was negative. She has been given IV caffeine, Toradol with no significant relief. She does endorse nausea and vomiting associated with the headache, photophobia. She denies fevers, chills, motor or sensory weakness, back pain, nuchal rigidity. Physical exam: Vital Signs: Reviewed in EMR GENERAL: Well appearing, lights in the room are dimmed, patient holding her head in pain PSYCH: Awake, alert, and oriented SKIN: Skin color, texture, turgor normal, no rashes or lesions HEENT: Normocephalic, atraumatic. EOM intact CV: No pedal edema RESP: Respirations are unlabored, no audible wheezing GI: Abdomen non-distended MUSCULOSKELETAL: Bilateral lower extremity strength is normal and symmetric. No atrophy or tone abnormalities are noted. Neck: No nuchal rigidity NEUR: Cranial nerves are grossly intact. Imaging: CT spine done at [facility] on 10/10/2019 is negative for acute intracranial process Assessment: 1. Post dural puncture headache 2. Chronic headaches and migraines 3. Multiple sclerosis 4. Morbid obesity Plan: We had a lengthy discussion regarding the risks and benefits of epidural blood patch. Given her multiple sclerosis and chronic headaches, combined with the possibility of worsening headaches if dural puncture were to ensue, we elected to not proceed with epidural blood patch. I have also had a lengthy discussion with the patient regarding sphenopalatine ganglion block. Risks and benefits were discussed. She would like to proceed with this. This was done in PACU at 1020 AM. Procedure note to follow. Past Medical History Past Medical History: Asthma, Diabetes Mellitus, GERD/Reflux, Hypertension, Musculoskeletal Disorder, Neurologic Disorder, Sleep Apnea/CPAP/BIPAP, Thyroid Disorder Additional Past Medical History / Comment(s): MS, back pain, DDD, optic neuritis, Gastroparesis., C-Diff (June 2018) leukopenia (sores in mouth) migraines, sleep apnea due to M.S. (no machine), sarcoidosis History of Any Multi-Drug Resistant Organisms: None Reported Year Discovered:: 2018 MDRO Source:: stool Past Surgical History: Bladder Surgery, Hernia Repair, Hysterectomy, Orthopedic Surgery, Tubal Ligation Additional Past Surgical History / Comment(s): rhinoplasty, bladder suspension, breast sx, morphine pump , RT KNEE SCOPE, TUMMY TUCK, Spinal cord stimulator inserted and removed. port august 2019 Past Anesthesia/Blood Transfusion Reactions: Motion Sickness, Postoperative Nausea & Vomiting (PONV) Past Psychological History: No Psychological Hx Reported Smoking Status: Never smoker Past Alcohol Use History: None Reported Past Drug Use History: None Reported - Past Family History Father History Unknown: Yes Family Medical History: No Reported History Additional Family Medical History / Comment(s): . Mother History Unknown: Yes Family Medical History: No Reported History Additional Family Medical History / Comment(s): NO FAMILY HISTORY Medications and Allergies Home Medications Medication Instructions Recorded Confirmed Type Albuterol Sulfate [Proair Hfa] 2 puff INHALATION RT-Q6H PRN 09/26/15 10/10/19 History Atorvastatin [Lipitor] 10 mg PO DAILY 09/26/15 10/10/19 History Montelukast [Singulair] 10 mg PO DAILY #30 tab 06/23/16 10/10/19 Rx DULoxetine HCL [Cymbalta] 60 mg PO DAILY 01/10/17 10/10/19 History Ipratropium-Albuterol Nebulize 3 ml INHALATION RT-QID PRN 01/16/17 10/10/19 History [Duoneb 0.5 mg-3 mg/3 ml Soln] INSULIN LISPRO (HumaLOG) [humaLOG] See Protocol SQ ACHS PRN 01/19/17 10/10/19 History Cholecalciferol [Vitamin D3 (25 1,000 unit PO DAILY 03/03/17 10/10/19 History Mcg = 1000 Iu)] tiZANidine HCL [Zanaflex] 2 mg PO Q6H PRN 06/15/17 10/10/19 History Scopolamine 1.5MG/72Hr Patch 1 patch TRANSDERM Q72H 07/07/17 10/10/19 History [TransDerm Scop] metFORMIN HCL [Glucophage] 500 mg PO BID #60 tab 02/10/18 10/10/19 Rx Levothyroxine Sodium [Synthroid] 112 mcg PO DAILY 12/05/18 10/10/19 History rOPINIRole HCL [Requip] 2 mg PO TID 12/05/18 10/10/19 History Erenumab-Aooe [Aimovig 140 mg SQ Q30D 01/15/19 10/10/19 History Autoinjector] Baclofen 20 mg PO QID 04/29/19 10/10/19 History Omeprazole [PriLOSEC] 20 mg PO DAILY 04/29/19 10/10/19 History Cyanocobalamin (Vitamin B-12) 1,000 mcg PO DAILY 10/01/19 10/10/19 History [Vitamin B-12] Hydrochlorothiazide 12.5 mg PO DAILY #30 capsule 10/04/19 10/10/19 Rx Morphine Pain Pump 1 dose INTRATHECA CONTINUOUS 10/10/19 10/10/19 History Allergies Allergy/AdvReac Type Severity Reaction Status Date / Time adhesive Allergy Severe Rash/Hives Verified 10/10/19 16:42 adhesive tape Allergy Severe Rash/Hives Verified 10/10/19 16:42 fentanyl Allergy Severe Rash/Hives Verified 10/10/19 16:42 from patch only latex Allergy Severe Rash/Hives Verified 10/10/19 16:42 metoclopramide [From Reglan] Allergy dystonia Verified 10/10/19 16:42 Physical Exam Vitals: Vital Signs Temp Pulse Pulse Resp BP BP Pulse Ox 10/11/19 11:38 58 L 16 107/72 98 10/11/19 11:15 70 16 119/56 100 10/11/19 11:03 69 16 118/69 100 10/11/19 10:45 71 16 120/71 100 10/11/19 10:20 98.4 F 69 16 119/70 99 10/11/19 08:23 98.4 F 58 L 16 109/58 99 10/11/19 08:00 78 10/11/19 04:00 98.7 F 73 14 10/11/19 00:00 98.0 F 73 14 107/56 93 L 10/10/19 21:25 99.3 F 70 16 133/83 96 10/10/19 21:00 98.6 F 71 18 136/57 96 10/10/19 18:26 73 18 124/81 100 10/10/19 15:30 98.2 F 81 18 138/91 99 Intake and Output 10/10/19 10/11/19 10/11/19 22:59 06:59 14:59 Intake Total 480 100 Balance 480 100 Intake: IV 100 Oral 480 Other: # Voids 1 Weight 111.13 kg 111.13 kg Results CBC & Chem 7: 10/10/19 17:00 10/10/19 17:00 Labs: Abnormal Lab Results - Last 24 Hours (Table) 10/10/19 10/10/19 10/11/19 Range/Units 17:00 17:00 06:06 APTT 21.5 L (22.0-30.0) sec Glucose 104 H (74-99) mg/dL POC Glucose (mg/dL) 138 H (75-99) mg/dL Total Protein 5.9 L (6.3-8.2) g/dL 10/11/19 Range/Units 11:43 APTT (22.0-30.0) sec Glucose (74-99) mg/dL POC Glucose (mg/dL) 112 H (75-99) mg/dL Total Protein (6.3-8.2) g/dL PQRS Measure Charge Sheet PQRS Narrative: Smoking Status Never smoker Do You Want the Pneumonia No Vaccine AT THIS TIME? Blood Pressure [Left Arm] 107/72 Blood Pressure 136/57 Pain Intensity [Head] 5 Pain Intensity 4 Pain Scale Used Numeric (1 - 10) Scale Used Numeric (1 - 10) Home Medications: Ambulatory Orders Albuterol Sulfate [Proair Hfa] 2 puff INHALATION RT-Q6H PRN 09/26/15 Atorvastatin [Lipitor] 10 mg PO DAILY 09/26/15 Montelukast [Singulair] 10 mg PO DAILY #30 tab 06/23/16 DULoxetine HCL [Cymbalta] 60 mg PO DAILY 01/10/17 Ipratropium-Albuterol Nebulize [Duoneb 0.5 mg-3 mg/3 ml Soln] 3 ml INHALATION RT-QID PRN 01/16/17 INSULIN LISPRO (HumaLOG) [humaLOG] See Protocol SQ ACHS PRN 01/19/17 Cholecalciferol [Vitamin D3 (25 Mcg = 1000 Iu)] 1,000 unit PO DAILY 03/03/17 tiZANidine HCL [Zanaflex] 2 mg PO Q6H PRN 06/15/17 Scopolamine 1.5MG/72Hr Patch [TransDerm Scop] 1 patch TRANSDERM Q72H 07/07/17 metFORMIN HCL [Glucophage] 500 mg PO BID #60 tab 02/10/18 Levothyroxine Sodium [Synthroid] 112 mcg PO DAILY 12/05/18 rOPINIRole HCL [Requip] 2 mg PO TID 12/05/18 Erenumab-Aooe [Aimovig Autoinjector] 140 mg SQ Q30D 01/15/19 Baclofen 20 mg PO QID 04/29/19 Omeprazole [PriLOSEC] 20 mg PO DAILY 04/29/19 Cyanocobalamin (Vitamin B-12) [Vitamin B-12] 1,000 mcg PO DAILY 10/01/19 Hydrochlorothiazide 12.5 mg PO DAILY #30 capsule 10/04/19 Morphine Pain Pump 1 dose INTRATHECA CONTINUOUS 10/10/19
--- NOTE | 2019-10-11 13:19 | P.PCN ---
Date of Procedure: 10/11/19 Procedure(s) Performed: Procedure Note Sphenopalatine ganglion block Procedure Date:10/11/2019 TIme [id number] AM PREOPERATIVE DIAGNOSIS: Postdural puncture headache POSTOPERATIVE DIAGNOSIS: Postdural OPERATION PERFORMED: Bilateral sphenopalatine ganglion block SEDATION WAS NOT USED ESTIMATED BLOOD LOSS: None FLUIDS: None Procedure performed in PACU. INDICATIONS FOR PROCEDURE: This is a 49-year-old female with a clinical picture of posterior puncture headache, not responsive to conservative management, she is not a candidate for an epidural blood patch. PROCEDURE AND FINDINGS: The patient was greeted in the pre procedure holding area. The risk, benefits and alternatives to the procedure were again reviewed with the patient and written informed consent was placed in the chart. Prior to the procedure a time out was completed, verifying correct patient, procedure, site, positioning, and implants and/or special equipment. Both nostrils were sprayed with Bert-synephrine 2-sprays each nostril. An IV line was in place. Routine monitors were applied including EKG leads, blood pressure cuff, and pulse oximetry. An LTA kit was lubricated and then placed into the bilateral nostril(s). The LTA kit advanced into the nasal passage staying anterior to the middle turbinate until the catheter tip contacted the mucosa overlying the cribiform plate. Then 2 mls containing 4% lidocaine was injected without incident into each nostril. The patient monitored in the recovery room for 1 hour. They tolerated the procedure well and were discharged in stable condition with post procedural instructions. Prior to the procedure, the patient reported a pain score of 8 out of 10. Thirty minutes following the procedure, the pain was reported as 0 out of 10- she had no headache on sitting up. Follow-up when necessary COMPLICATIONS: NONE Comment(s): None
[2019-10-11 14:09] LABS: Glucose,Whole Blood 150 mg/dL (75-99)
--- NOTE | 2019-10-11 20:46 | P.HPIM ---
History of Present Illness H&P Date: 10/11/19 Chief Complaint: Headache History of presenting complaint: This is a [address] Taylor. Chronic stable medical conditions include asthma, diabetes, GERD, hypertension,(s) sleep apnea, optic neuritis, gastroparesis sleep apnea or MS but no machine. Patient does follow Dr. No. Also the pain pump. Patient now switching over to neurologist called Dr. Cavazos. Patient on October 03 underwent a lumbar puncture by neurology for further workup not MS. Subsequently that she kept having significant headache. Positional worse with sitting up in standing up. Some nausea. No fever no chills. Patient is had vomiting for 2 days. Patient is readmitted to the ER. No lateralizing signs. Review of systems: GEN.: Tired EYES: None HEENT: [As above, no photophobia NECK: No neck stiffness RESPIRATORY: None CARDIOVASCULAR: None GASTROINTESTINAL: None GENITOURINARY: None MUSCULOSKELETAL: None LYMPHATICS: None HEMATOLOGICAL: None PSYCHIATRY: [But anxious NEUROLOGICAL: None Past medical history to include: Asthma, diabetes, GERD, hypertension, chronic pain syndrome, obstructive sleep apnea, multiple sclerosis, optic neuritis, gastroparesis questionable sarco idosis, patient is a morphine pain pump Social history: . Does not smoke or drink alcohol. Family history: Reviewed, noncontributory to presentation Physical examination: VITAL SIGNS: 98.2, 81, 18, 138/91, 99% room air GENERAL: BMI 37.3, laying in bed comfortable. EYES: Pupils equal. Conjunctiva normal. HEENT: External appearance of nose and ears normal, oral cavity grossly normal. NECK: JVD not raised; masses not palpable. HEART: First and second heart sounds are normal; no edema. LUNGS: Respiratory rate normal; clear to auscultation. ABDOMEN: Soft, nontender, liver spleen not palpable, no masses palpable. PSYCH: [Alert and oriented x3; mood and affect slightly anxious l. NEUROLOGICAL: Cranial nerves grossly intact; no facial asymmetry, power and sensation grossly intact. LYMPHATICS: No lymph nodes palpable in the axilla and neck INVESTIGATIONS, reviewed in the clinical context: White count 9 hemoglobin 12.8 platelets 308 potassium 4.1 crit 0.59 COVID 19 PCR-moderate infected Computed tomography scan of the brain unremarkable Assessment: -This is a patient presented with symptoms of a classical for spinal headache following a lumbar puncture done on October 03. Headache is worse with sitting up better with laying down. Nausea vomiting. No symptoms of meningism -Intubated asthma -Diabetes mellitus type 2 -GERD -Hypertension -Obstructive sleep apnea -Hypothyroid -Multiple sclerosis -Optic neuritis Plan: Home medications resumed. Consultations made to anesthesia with a view to blood patch. Also neurology was consulted. Care was discussed with the patient. Past Medical History Past Medical History: Asthma, Diabetes Mellitus, GERD/Reflux, Hypertension, Musculoskeletal Disorder, Neurologic Disorder, Sleep Apnea/CPAP/BIPAP, Thyroid Disorder Additional Past Medical History / Comment(s): MS, back pain, DDD, optic neuritis, Gastroparesis., C-Diff (June 2018) leukopenia (sores in mouth) migraines, sleep apnea due to M.S. (no machine), sarcoidosis History of Any Multi-Drug Resistant Organisms: None Reported Date of last positivie culture/infection: 2018 MDRO Source:: stool Past Surgical History: Bladder Surgery, Hernia Repair, Hysterectomy, Orthopedic Surgery, Tubal Ligation Additional Past Surgical History / Comment(s): rhinoplasty, bladder suspension, breast sx, morphine pump , RT KNEE SCOPE, TUMMY TUCK, Spinal cord stimulator inserted and removed. port august 2019 Past Anesthesia/Blood Transfusion Reactions: Motion Sickness, Postoperative Nausea & Vomiting (PONV) Past Psychological History: No Psychological Hx Reported Smoking Status: Never smoker Past Alcohol Use History: None Reported Past Drug Use History: None Reported - Past Family History Father History Unknown: Yes Family Medical History: No Reported History Additional Family Medical History / Comment(s): . Mother History Unknown: Yes Family Medical History: No Reported History Additional Family Medical History / Comment(s): NO FAMILY HISTORY Medications and Allergies Home Medications Medication Instructions Recorded Confirmed Type Albuterol Sulfate [Proair Hfa] 2 puff INHALATION RT-Q6H PRN 09/26/15 10/10/19 History Atorvastatin [Lipitor] 10 mg PO DAILY 09/26/15 10/10/19 History Montelukast [Singulair] 10 mg PO DAILY #30 tab 06/23/16 10/10/19 Rx DULoxetine HCL [Cymbalta] 60 mg PO DAILY 01/10/17 10/10/19 History Ipratropium-Albuterol Nebulize 3 ml INHALATION RT-QID PRN 01/16/17 10/10/19 Hist ory [Duoneb 0.5 mg-3 mg/3 ml Soln] INSULIN LISPRO (HumaLOG) [humaLOG] See Protocol SQ ACHS PRN 01/19/17 10/10/19 History Cholecalciferol [Vitamin D3 (25 1,000 unit PO DAILY 03/03/17 10/10/19 History Mcg = 1000 Iu)] tiZANidine HCL [Zanaflex] 2 mg PO Q6H PRN 06/15/17 10/10/19 History Scopolamine 1.5MG/72Hr Patch 1 patch TRANSDERM Q72H 07/07/17 10/10/19 History [TransDerm Scop] metFORMIN HCL [Glucophage] 500 mg PO BID #60 tab 02/10/18 10/10/19 Rx Levothyroxine Sodium [Synthroid] 112 mcg PO DAILY 12/05/18 10/10/19 History rOPINIRole HCL [Requip] 2 mg PO TID 12/05/18 10/10/19 History Erenumab-Aooe [Aimovig 140 mg SQ Q30D 01/15/19 10/10/19 History Autoinjector] Baclofen 20 mg PO QID 04/29/19 10/10/19 History Omeprazole [PriLOSEC] 20 mg PO DAILY 04/29/19 10/10/19 History Cyanocobalamin (Vitamin B-12) 1,000 mcg PO DAILY 10/01/19 10/10/19 History [Vitamin B-12] Hydrochlorothiazide 12.5 mg PO DAILY #30 capsule 10/04/19 10/10/19 Rx Morphine Pain Pump 1 dose INTRATHECA CONTINUOUS 10/10/19 10/10/19 History Allergies Allergy/AdvReac Type Severity Reaction Status Date / Time adhesive Allergy Severe Rash/Hives Verified 10/10/19 16:42 adhesive tape Allergy Severe Rash/Hives Verified 10/10/19 16:42 fentanyl Allergy Severe Rash/Hives Verified 10/10/19 16:42 from patch only latex Allergy Severe Rash/Hives Verified 10/10/19 16:42 metoclopramide [From Reglan] Allergy dystonia Verified 10/10/19 16:42 Physical Exam Vitals: Vital Signs Temp Pulse Pulse Resp BP BP Pulse Ox 10/11/19 10:20 98.4 F 69 16 119/70 99 10/11/19 08:23 98.4 F 58 L 16 109/58 99 10/11/19 08:00 78 10/11/19 04:00 98.7 F 73 14 10/11/19 00:00 98.0 F 73 14 107/56 93 L 10/10/19 21:25 99.3 F 70 16 133/83 96 10/10/19 21:00 98.6 F 71 18 136/57 96 10/10/19 18:26 73 18 124/81 100 10/10/19 15:30 98.2 F 81 18 138/91 99 Intake and Output 10/10/19 10/11/19 10/11/19 22:59 06:59 14:59 Intake Total 480 Balance 480 Intake: Oral 480 Other: # Voids 1 Weight 111.13 kg 111.13 kg Results CBC & Chem 7: 10/10/19 17:00 10/10/19 17:00 Labs: Abnormal Lab Results - Last 24 Hours (Table) 10/10/19 10/10/19 10/11/19 Range/Units 17:00 17:00 06:06 APTT 21.5 L (22.0-30.0) sec Glucose 104 H (74-99) mg/dL POC Glucose (mg/dL) 138 H (75-99) mg/dL Total Protein 5.9 L (6.3-8.2) g/dL Thrombosis Risk Factor Assmnt - Choose All That Apply Any of the Below Risk Factors Present?: Yes Each Factor Represents 1 point: Age 41-60 years, Obesity (BMI >25) Other congenital or acquired thrombophilia - If yes, enter type in comment: No Thrombosis Risk Factor Assessment Total Risk Factor Score: 2 Thrombosis Risk Factor Assessment Level: Low Risk
--- NOTE | 2019-10-11 20:50 | P.DS ---
Providers Date of admission: 10/10/19 20:23 Expected date of discharge: 10/11/19 Attending physician: José Ferreira Consults: 10/10/19 20:23 Consult Physician Urgent Consulting Provider: Travis Hirsch Consult Reason/Comments: intractable headache Do you want consulting provider notified?: Yes Primary care physician: [facility] Course: Chief Complaint: Headache History of presenting complaint: This is a [address] Taylor. Chronic stable medical conditions include asthma, diabetes, GERD, hypertension,(s) sleep apnea, optic neuritis, gastroparesis sleep apnea or MS but no machine. Patient does follow Dr. No. Also the pain pump. Patient now switching over to neurologist called Dr. Cavazos. Patient on October 03 underwent a lumbar puncture by neurology for further workup not MS. Subsequently that she kept having significant headache. Positional worse with sitting up in standing up. Some nausea. No fever no chills. Patient is had vomiting for 2 days. Patient is admitted from the ER. No lateralizing signs. Patient was seen by anesthesia. Underwent bilateral sphenopalatine ganglion block. Postprocedure patient doing much better. Headache improved significantly. Patient very keen to go home. Pain also seen by the neurologist. Consultation: Dr. Izquierdo from neurology Dr. Johnston from anesthesia Physical examination: VITAL SIGNS: 58, 16, 1971, 98% room air GENERAL: BMI 37.3, laying in bed comfortable. EYES: Pupils equal. Conjunctiva normal. HEENT: External appearance of nose and ears normal, oral cavity grossly normal. NECK: JVD not raised; masses not palpable. HEART: First and second heart sounds are normal; no edema. LUNGS: Respiratory rate normal; clear to auscultation. ABDOMEN: Soft, nontender, liver spleen not palpable, no masses palpable. PSYCH: [Alert and oriented x3; mood and affect slightly anxious l. NEUROLOGICAL: Nonfocal INVESTIGATIONS, reviewed in the clinical context: White count 9 hemoglobin 12.8 platelets 308 potassium 4.1 crit 0.59 COVID 19 PCR-moderate infected Computed tomography scan of the brain unremarkable Assessment: -This is a patient presented with symptoms of a classical for spinal headache following a lumbar puncture done on October 03. Status post bilateral sphenopalatine ganglion block-successful -Intermittent asthma -Diabetes mellitus type 2 -GERD -Hypertension -Obstructive sleep apnea -Hypothyroid -Multiple sclerosis -Optic neuritis Disposition: Home Patient Condition at Discharge: Stable Plan - Discharge Summary New Discharge Prescriptions: Continue Atorvastatin [Lipitor] 10 mg PO DAILY Albuterol Sulfate [Proair Hfa] 2 puff INHALATION RT-Q6H PRN PRN Reason: Shortness Of Breath Montelukast [Singulair] 10 mg PO DAILY #30 tab DULoxetine HCL [Cymbalta] 60 mg PO DAILY Ipratropium-Albuterol Nebulize [Duoneb 0.5 mg-3 mg/3 ml Soln] 3 ml INHALATION RT-QID PRN PRN Reason: Shortness Of Breath INSULIN LISPRO (HumaLOG) [humaLOG] See Protocol SQ ACHS PRN PRN Reason: taking steroids Cholecalciferol [Vitamin D3 (25 Mcg = 1000 Iu)] 1,000 unit PO DAILY tiZANidine HCL [Zanaflex] 2 mg PO Q6H PRN PRN Reason: Muscle Spasm Scopolamine 1.5MG/72Hr Patch [TransDerm Scop] 1 patch TRANSDERM Q72H metFORMIN HCL [Glucophage] 500 mg PO BID #60 tab rOPINIRole HCL [Requip] 2 mg PO TID Levothyroxine Sodium [Synthroid] 112 mcg PO DAILY Erenumab-Aooe [Aimovig Autoinjector] 140 mg SQ Q30D Omeprazole [PriLOSEC] 20 mg PO DAILY Baclofen 20 mg PO QID Cyanocobalamin (Vitamin B-12) [Vitamin B-12] 1,000 mcg PO DAILY Hydrochlorothiazide 12.5 mg PO DAILY #30 capsule Morphine Pain Pump 1 dose INTRATHECA CONTINUOUS Discharge Medication List Albuterol Sulfate [Proair Hfa] 2 puff INHALATION RT-Q6H PRN 09/26/15 [History] Atorvastatin [Lipitor] 10 mg PO DAILY 09/26/15 [History] Montelukast [Singulair] 10 mg PO DAILY #30 tab 06/23/16 [Rx] DULoxetine HCL [Cymbalta] 60 mg PO DAILY 01/10/17 [History] Ipratropium-Albuterol Nebulize [Duoneb 0.5 mg-3 mg/3 ml Soln] 3 ml INHALATION RT-QID PRN 01/16/17 [History] INSULIN LISPRO (HumaLOG) [humaLOG] See Protocol SQ ACHS PRN 01/19/17 [History] Cholecalciferol [Vitamin D3 (25 Mcg = 1000 Iu)] 1,000 unit PO DAILY 03/03/17 [History] tiZANidine HCL [Zanaflex] 2 mg PO Q6H PRN 06/15/17 [History] Scopolamine 1.5MG/72Hr Patch [TransDerm Scop] 1 patch TRANSDERM Q72H 07/07/17 [History] metFORMIN HCL [Glucophage] 500 mg PO BID #60 tab 02/10/18 [Rx] Levothyroxine Sodium [Synthroid] 112 mcg PO DAILY 12/05/18 [History] rOPINIRole HCL [Requip] 2 mg PO TID 12/05/18 [History] Erenumab-Aooe [Aimovig Autoinjector] 140 mg SQ Q30D 01/15/19 [History] Baclofen 20 mg PO QID 04/29/19 [History] Omeprazole [PriLOSEC] 20 mg PO DAILY 04/29/19 [History] Cyanocobalamin (Vitamin B-12) [Vitamin B-12] 1,000 mcg PO DAILY 10/01/19 [History] Hydrochlorothiazide 12.5 mg PO DAILY #30 capsule 10/04/19 [Rx] Morphine Pain Pump 1 dose INTRATHECA CONTINUOUS 10/10/19 [History] Follow up Appointment(s)/Referral(s): Abdi Taylor MD [Primary Care Provider] - 1-2 days (Patient to follow up with Dr. Taylor in office call on Monday to . [phone] Office is currently closed) Maura No MD [Medical Doctor] - 1 Week (please call office and reschedule appointment, missed due to current hospitalization) Patient Instructions/Handouts: Migraine Headache (ED) Discharge Disposition: HOME SELF-CARE
== END 2019-10-11 13:38 | disposition home or self-care (01) ==
LOC: EC 15:27 → 1SOBS 20:23
PROVIDERS: ADMIT Hospitalist; ATTEND Hospitalist
DX: G97.1 Other reaction to spinal and lumbar puncture (principal); Y84.4 Aspiration of fluid as the cause of abnormal reaction of the patient, or of later complication, without mention of misadventure at the time of the procedure; J45.20 Mild intermittent asthma, uncomplicated; K31.84 Gastroparesis; E11.43 Type 2 diabetes mellitus with diabetic autonomic (poly)neuropathy; K21.9 Gastro-esophageal reflux disease without esophagitis; I10 Essential (primary) hypertension; G47.33 Obstructive sleep apnea (adult) (pediatric); E03.9 Hypothyroidism, unspecified; G35 Multiple sclerosis; H46.9 Unspecified optic neuritis; G43.909 Migraine, unspecified, not intractable, without status migrainosus; E66.01 Morbid (severe) obesity due to excess calories; Z68.37 Body mass index [BMI] 37.0-37.9, adult; E07.9 Disorder of thyroid, unspecified; M54.9 Dorsalgia, unspecified; D72.819 Decreased white blood cell count, unspecified; Z79.899 Other long term (current) drug therapy; Z79.4 Long term (current) use of insulin; E55.9 Vitamin D deficiency, unspecified; Z79.890 Hormone replacement therapy; Z79.891 Long term (current) use of opiate analgesic; Z88.5 Allergy status to narcotic agent; Z88.8 Allergy status to other drugs, medicaments and biological substances; Z91.040 Latex allergy status; Z91.048 Other nonmedicinal substance allergy status; Z97.8 Presence of other specified devices; Z11.59 Encounter for screening for other viral diseases
CPT/HCPCS: 96376 ×2; 96365; 96366; 96367; 96375; 99285; 36415; 64505; 80053; 85025; 85610; 85730; 70450; G0378 ×2; U0003; J1200 ×2; J1100; J2405 ×2; J1885 ×2; J1170; J3475; J1642

== ENCOUNTER → 2019-10-23 | Day surgery (SDC) | payer BC, MEDICARE ==
[2019-10-22 13:05] VITALS: BMI 34.9
[~2019-10-23] MED LIST changes: -DEXAMETHASONE SOD PHOSPHATE 10 MG/ML 1 ML VIAL IV ONE; +LACTATED RINGERS 1,000 ML IV ONE; +LIDOCAINE 1% (10MG/ML) FOR IV START INTRADERMA ONE; +LIDOCAINE 1% INJ 10MG/ML (20 ML MDV) ONE; -ONDANSETRON 4 MG/2 ML VIAL IVP ONE; +PROPOFOL 10 MG/ML 20 ML VIAL IV ONE; +diphenhydrAMINE 50 MG/ML 1 ML VIAL IVP ONE; +diphenhydrAMINE 50 MG/ML 1 ML VIAL ONE
[2019-10-23 07:42] VITALS: RESP 16; TEMP 97.7
--- NOTE | 2019-10-23 08:10 | P.PCN ---
Date of Procedure: 10/23/19 Procedure(s) Performed: BRIEF HISTORY: Patient is a 49-year-old, pleasant, female scheduled for an upper endoscopy as a part of evaluation of epigastric pain and persistent nausea vomiting on and off for the last 2 years duration. She is status post Ruth fundoplication in 2018 and since then her symptoms have been progressively get worse. His been on Prilosec 20 mg daily. She was irregular in the past but caused diarrhea and hence stop the medication. PROCEDURE PERFORMED: Esophagogastroduodenoscopy with biopsy PREOPERATIVE DIAGNOSIS: Persistent nausea vomiting and abdominal pain of several months duration. IV sedation per anesthesia. PROCEDURE: After informed consent was obtained, the patient was brought into the endoscopy unit. IV sedation was administered by Anesthesia under continuous monitoring. Initially the Olympus GIF-140 video endoscope was inserted into the mouth. Esophagus intubated without any difficulty. It was gradually advanced into the stomach and duodenum and carefully examined. The bulb and the second part of the duodenum appeared normal. The scope at this time was withdrawn to the stomach, adequately insufflated with air, and upon careful examination, mucosa of the antrum had mild gastritis and biopsies were done from this area. It was large amount of retained food noted in the proximal body of the stomach consistent with gastroparesis. The visualized portions of the, cardia and the fundus appeared normal. The scope was then withdrawn into the esophagus. The GE junction was located at 37 cm from the incisors. It appeared irregular and there were 2 tongues of Dhillon's appearing mucosa extending 5 mm proximal to the GE junction which were biopsied. The rest of the esophagus appeared normal. There were no erosions or ulcerations seen and the patient tolerated the procedure well. IMPRESSION: 1. Retained food in the stomach suggestive of gastroparesis. 2. No evidence of gastric outlet obstruction. 3. Short segment Dhillon's esophagus RECOMMENDATIONS: The findings of this examination were discussed with the patient as well as a family. She was advised to continue with small frequent meals. She will increase the Prilosec to 20 mg twice daily and follow antireflux measures.
[2019-10-23 08:16] VITALS: BP 117/74
[2019-10-23 08:33] VITALS: PULSE 64
== END ==
LOC: ORWHC2ENDO 06:57
PROVIDERS: ATTEND Internal Medicine Gastroenterology
DX: K29.50 Unspecified chronic gastritis without bleeding (principal); K31.9 Disease of stomach and duodenum, unspecified; K22.70 Barrett's esophagus without dysplasia; K21.0 Gastro-esophageal reflux disease with esophagitis; I10 Essential (primary) hypertension; E78.5 Hyperlipidemia, unspecified; E11.9 Type 2 diabetes mellitus without complications; E07.9 Disorder of thyroid, unspecified; Z98.890 Other specified postprocedural states; Z79.899 Other long term (current) drug therapy; Z79.890 Hormone replacement therapy; Z79.4 Long term (current) use of insulin; Z98.82 Breast implant status; Z96.89 Presence of other specified functional implants; Z90.710 Acquired absence of both cervix and uterus; Z91.040 Latex allergy status; Z88.5 Allergy status to narcotic agent; Z88.8 Allergy status to other drugs, medicaments and biological substances; Z91.09 Other allergy status, other than to drugs and biological substances
CPT/HCPCS: 88305; 43239; J1200; J2001; J1642; J2704

== ENCOUNTER 2019-10-24 11:32 | Emergency (ER) | payer BC, MEDICARE ==
[2019-10-24 11:46] VITALS: RESP 18
[2019-10-24] MEDS ORDERED: MORPHINE SULFATE 4 MG/ML SYRINGE IVP STA (12:47)
[2019-10-24] MEDS ORDERED: MORPHINE SULFATE 4 MG/ML SYRINGE IM STA (12:56)
[2019-10-24] MEDS ORDERED: valACYclovir 500 MG TAB PO STA (13:05)
--- NOTE | 2019-10-24 13:23 | ED ---
Skin/Abscess/FB HPI - General Chief complaint: Skin/Abscess/Foreign Body Stated complaint: Rash Time Seen by Provider: 10/24/19 12:30 Source: patient, RN notes reviewed, old records reviewed Mode of arrival: ambulatory Limitations: no limitations - History of Present Illness Initial comments: 70 is a 41-year-old female who presents today with 1 day of painful burning rash over the left side of her back across chest and shooting pain down the left arm. Patient reports that she had an upper endoscopy yesterday and was informed that she has gastroparesis. Patient states that she initially thought that the area of pain was a spider bite a few days ago. Patient states that she did have chickenpox as a child. She denies any other area of rash or pain. - Related Data Home Medications Medication Instructions Recorded Confirmed Albuterol Sulfate [Proair Hfa] 2 puff INHALATION RT-Q6H PRN 09/26/15 10/24/19 Atorvastatin [Lipitor] 10 mg PO DAILY 09/26/15 10/24/19 DULoxetine HCL [Cymbalta] 60 mg PO DAILY 01/10/17 10/24/19 Ipratropium-Albuterol Nebulize 3 ml INHALATION RT-QID PRN 01/16/17 10/24/19 [Duoneb 0.5 mg-3 mg/3 ml Soln] INSULIN LISPRO (HumaLOG) [humaLOG] See Protocol SQ ACHS PRN 01/19/17 10/24/19 tiZANidine HCL [Zanaflex] 2 mg PO Q6H PRN 06/15/17 10/24/19 Scopolamine 1.5MG/72Hr Patch 1 patch TRANSDERM Q72H 07/07/17 10/24/19 [TransDerm Scop] Levothyroxine Sodium [Synthroid] 112 mcg PO DAILY 12/05/18 10/24/19 rOPINIRole HCL [Requip] 2 mg PO TID 12/05/18 10/24/19 Erenumab-Aooe [Aimovig 140 mg SQ Q30D 01/15/19 10/24/19 Autoinjector] Baclofen 20 mg PO QID 04/29/19 10/24/19 Omeprazole [PriLOSEC] 20 mg PO DAILY 04/29/19 10/24/19 Cyanocobalamin (Vitamin B-12) 1,000 mcg PO DAILY 10/01/19 10/24/19 [Vitamin B-12] Morphine Pain Pump 1 dose INTRATHECA CONTINUOUS 10/10/19 10/24/19 Acetaminophen-Codeine 300-30mg 1 tab PO DIRECTED PRN 10/22/19 10/24/19 [Tylenol w/codeine #3] Ergocalciferol [Vitamin D2] 50,000 unit PO Q7D 10/22/19 10/24/19 Previous Rx's Medication Instructions Recorded Montelukast [Singulair] 10 mg PO DAILY #30 tab 06/23/16 metFORMIN HCL [Glucophage] 500 mg PO BID #60 tab 02/10/18 Hydrochlorothiazide 12.5 mg PO DAILY #30 capsule 10/04/19 [hydroCHLOROthiazide] Lidocaine 4% Cream [Lmx 4] 1 applic TOPICAL DAILY #1 bottle 10/24/19 valACYclovir HCL [Valacyclovir] 1,000 mg PO TID #21 tablet 10/24/19 Allergies Allergy/AdvReac Type Severity Reaction Status Date / Time adhesive Allergy Severe Rash/Hives Verified 10/24/19 13:55 adhesive tape Allergy Severe Rash/Hives Verified 10/24/19 13:55 fentanyl Allergy Severe Rash/Hives Verified 10/24/19 13:55 from patch only latex Allergy Severe Rash/Hives Verified 10/24/19 13:55 metoclopramide [From Reglan] Allergy dystonia Verified 10/24/19 13:55 from IV Reglan Review of Systems ROS Statement: Those systems with pertinent positive or pertinent negative responses have been documented in the HPI. ROS Other: All systems not noted in ROS Statement are negative. Past Medical History Past Medical History: Asthma, Diabetes Mellitus, GERD/Reflux, Hypertension, Musculoskeletal Disorder, Neurologic Disorder, Sleep Apnea/CPAP/BIPAP, Thyroid Disorder Additional Past Medical History / Comment(s): MS, back pain, DDD, optic neuritis, Gastroparesis., C-Diff (June 2018) leukopenia (sores in mouth) migraines, sleep apnea due to M.S. (no machine), sarcoidosis, cyst in stomach. , hopitalized 10/04/19 after lumbar puncture becaruse heart rate dropped, hospitalized 10/10/19 for headache (post l.p.), states allergy to all adhesive and needs benadry 50mg prior to using tape or tegaderm etc. History of Any Multi-Drug Resistant Organisms: None Reported Date of last positivie culture/infection: 2018 MDRO Source:: stool Past Surgical History: Bladder Surgery, Hernia Repair, Hysterectomy, Orthopedic Surgery, Tubal Ligation Additional Past Surgical History / Comment(s): rhinoplasty, bladder suspension, breast sx, morphine pump , RT KNEE SCOPE, TUMMY TUCK, Spinal cord stimulator inserted and removed. port august 2019 Past Anesthesia/Blood Transfusion Reactions: Motion Sickness, Postoperative N ausea & Vomiting (PONV) Past Psychological History: No Psychological Hx Reported Smoking Status: Never smoker Past Alcohol Use History: Occasional Past Drug Use History: None Reported - Past Family History Father History Unknown: Yes Family Medical History: No Reported History Additional Family Medical History / Comment(s): . Mother History Unknown: Yes Family Medical History: No Reported History Additional Family Medical History / Comment(s): NO FAMILY HISTORY General Exam - General Exam Comments Initial Comments: 49-year-old female. Patient appears in mild to moderate discomfort. Oriented 3. Limitations: no limitations General appearance: alert, in no apparent distress Head exam: Present: atraumatic, normocephalic, normal inspection Eye exam: Present: normal appearance, PERRL, EOMI. Absent: scleral icterus, conjunctival injection, periorbital swelling ENT exam: Present: normal exam Neck exam: Present: normal inspection. Absent: tenderness, meningismus, lymphadenopathy Respiratory exam: Present: normal lung sounds bilaterally. Absent: respiratory distress, wheezes, rales, rhonchi, stridor Cardiovascular Exam: Present: regular rate, normal rhythm, normal heart sounds, other (Patient has evidence of erythematous papular rash over the T4 to T5 dermatome on the left side. The rash does not cross the midline of the back.). Absent: systolic murmur, diastolic murmur, rubs, gallop, clicks GI/Abdominal exam: Present: soft, normal bowel sounds. Absent: distended, tenderness, guarding, rebound, rigid Extremities exam: Present: normal inspection, full ROM, normal capillary refill. Absent: tenderness, pedal edema, joint swelling, calf tenderness Back exam: Present: normal inspection Neurological exam: Present: alert, oriented X3, CN II-XII intact Psychiatric exam: Present: normal affect, normal mood Skin exam: Present: warm, dry, intact, normal color. Absent: rash Course Vital Signs 10/24/19 10/24/19 10/24/19 11:38 13:29 13:40 Temperature 98.2 F 98.3 F 98.3 F Pulse Rate 81 79 79 Respiratory 18 18 18 Rate Blood Pressure 139/96 151/95 151/95 O2 Sat by Pulse 100 98 98 Oximetry Medical Decision Making - Medical Decision Making 49-year-old female presents emergency department today for evaluation for concerns for rash over her back across the chest and pain with down the left arm. Patient's rash does not cross the midline has macular papular lesions that are concerning for early blisters. Rash is consistent with shingles. Patient is worried with history of gastric paresis that she'll not be able to tolerate the pills. I discussed that she does take other pills and she needs to attempt that at this time and the fact that the rash is only consolidated to one dermatome does not mean and systemic. Patient was not pleased with this. Discussed with my attending Dr. Stuart, whom stated to only do oral medications in the meantime. I did offer the Patient lidocaine patches and states she's had a history of ALLERGIES to adhesive. Discussed to do topical lidocaine cream. Discussed follow-up with her PCP. Discussed return parameters. Disposition Clinical Impression: Shingles Disposition: HOME SELF-CARE Condition: Good Instructions (If sedation given, give patient instructions): Shingles (ED) Additional Instructions: Patient is a follow-up with your primary care doctor for further pain management and take the antiviral as prescribed. Topical lidocaine cream can help with sym ptoms. Prescriptions: Lidocaine 4% Cream [Lmx 4] 1 applic TOPICAL DAILY #1 bottle valACYclovir HCL [Valacyclovir] 1,000 mg PO TID #21 tablet Is patient prescribed a controlled substance at d/c from ED?: No Referrals: Abdi Taylor MD [Primary Care Provider] - 1-2 days Time of Disposition: 13:20
[2019-10-24 13:36] VITALS: BP 151/95; PULSE 79; TEMP 98.3
== END 2019-10-24 13:40 | disposition home or self-care (01) ==
LOC: EC 11:32
DX: B02.9 Zoster without complications (principal); J45.909 Unspecified asthma, uncomplicated; E11.9 Type 2 diabetes mellitus without complications; K21.9 Gastro-esophageal reflux disease without esophagitis; G47.30 Sleep apnea, unspecified; G35 Multiple sclerosis; M54.9 Dorsalgia, unspecified; E07.9 Disorder of thyroid, unspecified; G43.909 Migraine, unspecified, not intractable, without status migrainosus; Z79.890 Hormone replacement therapy; Z79.899 Other long term (current) drug therapy; Z88.8 Allergy status to other drugs, medicaments and biological substances; Z91.040 Latex allergy status; Z91.048 Other nonmedicinal substance allergy status; Z99.89 Dependence on other enabling machines and devices
CPT/HCPCS: 96372; 99283; J2270

== ENCOUNTER 2019-10-24 13:44 | Day surgery (SDC) | payer BC, MEDICARE ==
[2019-10-24 14:15] VITALS: BP 105/56; PULSE 73; RESP 16; TEMP 98.8
--- NOTE | 2019-10-24 16:04 | US ---
Ultrasound EXAMINATION TYPE: US discontinued FNA panel DATE OF EXAM: 10/24/2019 HISTORY: Seroma. Remote surgical history. Lower abdominal pain. FINDINGS: Preprocedure preliminary ultrasound imaging demonstrates a 2.3 x 2.3 x 2.4 cm well-circumscribed roun d hypoechoic heterogenous primarily solid round mass within the superficial lower mid abdomen subcuta neous soft tissue. No internal color flow. There are scattered 2 to 3 mm, more hypoechoic possibly cy stic spaces. No evidence of fluid large enough to target for aspiration. Appearance is consistent with primarily solid old hematoma. Findings were discussed with patient. I d iscussed with patient the possibility of canceling procedure versus trying to aspirate the scattered tiny 2 to 3 mm cystic areas for fluid sample, however I did not expect to yield much fluid/any fluid based on ultrasound appearance and any benefit would be for laboratory evaluation and would not decre ase the actual size of the lesion. Seeing as patient goal is symptomatic pain relief, patient in agre ement with canceling procedure. IMPRESSION: 2.4 cm lower abdominal subcutaneous mass with appearance of hematoma. A few internal 2 to 3 mm more c ystic-appearing spaces within the hematoma are seen, however appearance is primarily solid. No aspira tion performed.
== END 2019-10-24 14:50 | disposition home or self-care (01) ==
LOC: RADPROMAIN 13:44
PROVIDERS: ATTEND Surgery Plastic and Reconstructive Surgery
DX: L76.32 Postprocedural hematoma of skin and subcutaneous tissue following other procedure (principal)
CPT/HCPCS: 76536

== ENCOUNTER 2019-11-06 11:48 | Day surgery (SDC) | payer BC, MEDICARE ==
[2019-11-06] MEDS ORDERED: LACTATED RINGERS 1,000 ML IV ONE (11:56)
[2019-11-06] MEDS ORDERED: diphenhydrAMINE 50 MG/ML 1 ML VIAL ONE (12:05)
[2019-11-06 12:10] VITALS: TEMP 97
[2019-11-06] MEDS ORDERED: ONABOTULINUMTOXINA 100 UNIT VIAL MISCELLANE ONE ×2 (12:22→13:38)
[2019-11-06] MEDS ORDERED: diphenhydrAMINE 50 MG/ML 1 ML VIAL IVP ONE (12:25)
[2019-11-06 12:42] LABS: Glucose,Whole Blood 115 mg/dL (75-99)
[2019-11-06] MEDS ORDERED: PROPOFOL 10 MG/ML 20 ML VIAL IV ONE (13:10)
[2019-11-06] MEDS ORDERED: LIDOCAINE 1% INJ 10MG/ML (20 ML MDV) ONE (13:10)
--- NOTE | 2019-11-06 13:46 | P.PCN ---
Date of Procedure: 11/06/19 Procedure(s) Performed: BRIEF HISTORY: Patient is a 49-year-old, pleasant, white female diagnosed with diabetic gastroparesis 5 years ago. Lately she has been having nausea vomiting I placed4 times a week. She cheduled for an upper endoscopy with Botox injection of the pyloric sphincter.. PROCEDURE PERFORMED: EGD With Botox injection of the pylorus and biopsy PREOPERATIVE DIAGNOSIS: diabetic gastroparesis IV sedation per anesthesia. PROCEDURE: After informed consent was obtained, the patient was brought into the endoscopy unit. IV sedation was administered by Anesthesia under continuous monitoring. Initially the Olympus GIF-140 video endoscope was inserted into the mouth. Esophagus intubated without any difficulty. It was gradually advanced into the stomach and duodenum and carefully examined. The bulb and the second part of the duodenum appeared normal. The scope at this time was withdrawn to the stomach, adequately insufflated with air, and upon careful examination, and upon careful examination the pylorus was patent. At this time 100 units of Botox was injected in 4 quadrants around the pylorus. The mucosa of the antrum, body, cardia and the fundus appeared normal. evidence of retained solid food in the stomach noted. Small gastric polyps identified. The scope was then withdrawn into the esophagus. The GE junction was located at 39 cm from the incisors. small hiatal hernia noted. There was 2 cm tongue of Dhillon's appearing mucosa proximal to the GE junction which was biopsied.The rest of the esophagus appeared normal. There were no erosions or ulcerations seen and the patient tolerated the procedure well. IMPRESSION: 1. Botox injection of the pyloric as described above. 2. Diabetic gastroparesis with no evidence of gastric outlet obstruction 3. Small hiatal hernia and 2 centimeter length of Dhillon's mucosa at the distal esophagus status post biopsy RECOMMENDATIONS: The findings of this examination were discussed with the patient as well as a family. She will follow with the biopsy results. She was advised to follow up in office in 2 weeks. Continue current medications.
[2019-11-06] MEDS ORDERED: IV FLUID CONTINUATION 700 ML IV ONE (13:53)
[2019-11-06] MEDS ORDERED: ONDANSETRON 4 MG/2 ML VIAL ONE (14:14)
[2019-11-06] MEDS ORDERED: DEXAMETHASONE SOD PHOSPHATE 10 MG/ML 1 ML VIAL IV ONE (14:19)
[2019-11-06] MEDS ORDERED: ONDANSETRON 4 MG/2 ML VIAL IVP ONE (14:20)
[2019-11-06 14:29] VITALS: RESP 18
[2019-11-06 14:42] VITALS: BP 157/86; PULSE 79
== END 2019-11-06 15:18 | disposition home or self-care (01) ==
LOC: ORWHC2ENDO 11:48
PROVIDERS: ATTEND Internal Medicine Gastroenterology
DX: K31.84 Gastroparesis (principal); K22.70 Barrett's esophagus without dysplasia; K31.7 Polyp of stomach and duodenum; E11.43 Type 2 diabetes mellitus with diabetic autonomic (poly)neuropathy; K44.9 Diaphragmatic hernia without obstruction or gangrene; J45.909 Unspecified asthma, uncomplicated; G47.33 Obstructive sleep apnea (adult) (pediatric); H46.9 Unspecified optic neuritis; K21.9 Gastro-esophageal reflux disease without esophagitis; Z91.048 Other nonmedicinal substance allergy status; Z91.040 Latex allergy status; Z88.8 Allergy status to other drugs, medicaments and biological substances; Z99.89 Dependence on other enabling machines and devices; Z79.4 Long term (current) use of insulin; Z79.899 Other long term (current) drug therapy
CPT/HCPCS: 43239; 43236; 88305; J1200; J1100; J2405; J2001; J0585; J2704; 43243

== ENCOUNTER 2019-11-13 10:48 | Emergency (ER) | payer BC, MEDICARE ==
[2019-11-13] MEDS ORDERED: PANTOPRAZOLE 40 MG/10 ML VIAL IVP STA (11:29)
[2019-11-13] MEDS ORDERED: SODIUM CHLORIDE 0.9% 1,000 ML IV ONE ×2 (11:29→14:04)
[2019-11-13] MEDS ORDERED: diphenhydrAMINE 50 MG/ML 1 ML VIAL IVP STA (11:29)
--- NOTE | 2019-11-13 11:32 | ED ---
Abdominal Pain HPI - General Chief Complaint: Abdominal Pain Stated Complaint: post op abd pain Time Seen by Provider: 11/13/19 11:14 Source: patient, family, RN notes reviewed, old records reviewed Mode of arrival: ambulatory Limitations: no limitations - History of Present Illness Initial Comments: Patient is a 39-year-old female sent by Dr. Hutchinson's office for concerns for dehydration related to gastroparesis. Patient reports that she has had signif icant nausea vomiting diarrhea since she's had upper GI scope on 11/06/2019. She reports that they did Botox injections in her stomach. When she saw their office today and a 70 maps in her [facility] facility to deal with her gastroparesis. Patient states that she at this time feels very weak and dehydrated. She states that she has been trying to keep fluids down. - Related Data Home Medications Medication Instructions Recorded Confirmed Albuterol Sulfate [Proair Hfa] 2 puff INHALATION RT-Q6H PRN 09/26/15 11/13/19 Atorvastatin [Lipitor] 10 mg PO DAILY 09/26/15 11/13/19 DULoxetine HCL [Cymbalta] 60 mg PO DAILY 01/10/17 11/13/19 Ipratropium-Albuterol Nebulize 3 ml INHALATION RT-QID PRN 01/16/17 11/13/19 [Duoneb 0.5 mg-3 mg/3 ml Soln] INSULIN LISPRO (HumaLOG) [humaLOG] See Protocol SQ ACHS PRN 01/19/17 11/13/19 tiZANidine HCL [Zanaflex] 2 mg PO Q6H PRN 06/15/17 11/13/19 Scopolamine 1.5MG/72Hr Patch 1 patch TRANSDERM Q72H 07/07/17 11/13/19 [TransDerm Scop] Levothyroxine Sodium [Synthroid] 112 mcg PO DAILY 12/05/18 11/13/19 rOPINIRole HCL [Requip] 2 mg PO TID 12/05/18 11/13/19 Erenumab-Aooe [Aimovig 140 mg SQ Q30D 01/15/19 11/13/19 Autoinjector] Baclofen 20 mg PO QID 04/29/19 11/13/19 Omeprazole [PriLOSEC] 20 mg PO BID 04/29/19 11/13/19 Cyanocobalamin (Vitamin B-12) 1,000 mcg PO DAILY 10/01/19 11/13/19 [Vitamin B-12] Morphine Pain Pump 1 dose INTRATHECA CONTINUOUS 10/10/19 11/13/19 Acetaminophen-Codeine 300-30mg 1 tab PO TID PRN 10/22/19 11/13/19 [Tylenol w/codeine #3] Ergocalciferol [Vitamin D2] 50,000 unit PO WE 10/22/19 11/13/19 Lidocaine 4% Cream [Lmx 4] 1 applic TOPICAL DAILY PRN 11/13/19 11/13/19 Ondansetron Odt [Zofran Odt] 8 mg PO Q6H PRN 11/13/19 11/13/19 Previous Rx's Medication Instructions Recorded Montelukast [Singulair] 10 mg PO DAILY #30 tab 06/23/16 metFORMIN HCL [Glucophage] 500 mg PO BID #60 tab 02/10/18 Hydrochlorothiazide 12.5 mg PO DAILY #30 capsule 10/04/19 [hydroCHLOROthiazide] Allergies Allergy/AdvReac Type Severity Reaction Status Date / Time adhesive Allergy Severe Rash/Hives Verified 11/13/19 13:30 adhesive tape Allergy Severe Rash/Hives Verified 11/13/19 13:30 fentanyl Allergy Severe Rash/Hives Verified 11/13/19 13:30 from patch only latex Allergy Severe Rash/Hives Verified 11/13/19 13:30 metoclopramide [From Reglan] Allergy dystonia Verified 11/13/19 13:30 from IV Reglan Review of Systems ROS Statement: Those systems with pertinent positive or pertinent negative responses have been documented in the HPI. ROS Other: All systems not noted in ROS Statement are negative. Past Medical History Past Medical History: Asthma, Diabetes Mellitus, GERD/Reflux, Hypertension, Musculoskeletal Disorder, Neurologic Disorder, Sleep Apnea/CPAP/BIPAP, Thyroid Disorder Additional Past Medical History / Comment(s): MS, back pain, DDD, optic neuritis, Gastroparesis., C-Diff (June 2018) leukopenia (sores in mouth) migraines, sleep apnea due to M.S. (no machine), sarcoidosis, cyst in stomach. , hopitalized 10/04/19 after lumbar puncture becaruse heart rate dropped, hospitalized 10/10/19 for headache (post l.p.), states allergy to all adhesive and needs benadry 50mg prior to using tape or tegaderm etc. History of Any Multi-Drug Resistant Organisms: C-DIFF Date of last positivie culture/infection: 2018 MDRO Source:: stool Past Surgical History: Bladder Surgery, Hernia Repair, Hysterectomy, Orthopedic Surgery, Tubal Ligation Additional Past Surgical History / Comment(s): rhinoplasty, bladder suspension, breast sx, morphine pump , RT KNEE SCOPE, TUMMY TUCK, Spinal cord stimulator inserted and removed. port august 2019, gastroparesis botox and EGD 11/06/2019 Past Anesthesia/Blood Transfusion Reactions: Motion Sickness, Postoperative Nausea & Vomiting (PONV) Past Psychological History: No Psychological Hx Reported Smoking Status: Never smoker Past Alcohol Use History: Occasional Past Drug Use History: None Reported - Past Family History Father History Unknown: Yes Family Medical History: No Reported History Additional Family Medical History / Comment(s): . Mother History Unknown: Yes Family Medical History: No Reported History Additional Family Medical History / Comment(s): NO FAMILY HISTORY General Exam - General Exam Comments Initial Comments: 49 year old female, resting in bed. No acute distress. Limitations: no limitations General appearance: alert, in no apparent distress Head exam: Present: atraumatic, normocephalic, normal inspection Eye exam: Present: normal appearance, PERRL, EOMI. Absent: scleral icterus, conjunctival injection, periorbital swelling ENT exam: Present: normal exam, mucous membranes moist Neck exam: Present: normal inspection. Absent: tenderness, meningismus, lymphadenopathy Respiratory exam: Present: normal lung sounds bilaterally. Absent: respiratory distress, wheezes, rales, rhonchi, stridor Cardiovascular Exam: Present: regular rate, normal rhythm, normal heart sounds. Absent: systolic murmur, diastolic murmur, rubs, gallop, clicks GI/Abdominal exam: Present: soft, distended, normal bowel sounds. Absent: te nderness, guarding, rebound, rigid Neurological exam: Present: alert, oriented X3, CN II-XII intact Psychiatric exam: Present: normal affect, normal mood Skin exam: Present: warm, dry, intact, normal color. Absent: rash Course Vital Signs 08/12/20 08/12/20 08/12/20 11:18 14:02 16:47 Temperature 98.2 F 99.4 F Pulse Rate 90 83 70 Respiratory 18 17 18 Rate Blood Pressure 139/90 123/85 127/74 O2 Sat by Pulse 100 100 98 Oximetry Medical Decision Making - Medical Decision Making 49 year old female presents today for concern for nausea, vomiting, and diarrhea related to chronic gastroparesis. She reports 7lb weight loss and states her abdomen feels full and distended. She has KUB with moderate stool burden, despite hx of diarrhea. She has no vomiting in ED. She had port accessed and was given IV fluids, labs obtained.Labs are reviewed and unremarkable, no elevated lactic or significant ketones in urine. She was given 2 L bolus. Discussed with Dr. Stuart, whom discussed with Dr. Peoples, advised DC with outpatient follow up. Discussed with patient whom is agreeable. - Lab Data Result diagrams: 11/13/19 13:13 11/13/19 13:13 Lab Results 11/13/19 11/13/19 11/13/19 Range/Units 13:13 13:13 13:13 WBC 10.5 (3.8-10.6) k/uL RBC 4.69 (3.80-5.40) m/uL Hgb 13.3 (11.4-16.0) gm/dL Hct 41.0 (34.0-46.0) % MCV 87.4 (80.0-100.0) fL MCH 28.4 (25.0-35.0) pg MCHC 32.5 (31.0-37.0) g/dL RDW 13.2 (11.5-15.5) % Plt Count 349 (150-450) k/uL Neutrophils % 71 % Lymphocytes % 21 % Monocytes % 5 % Eosinophils % 2 % Basophils % 1 % Neutrophils # 7.4 (1.3-7.7) k/uL Lymphocytes # 2.2 (1.0-4.8) k/uL Monocytes # 0.5 (0-1.0) k/uL Eosinophils # 0.3 (0-0.7) k/uL Basophils # 0.1 (0-0.2) k/uL Sodium 138 (137-145) mmol/L Potassium 4.6 (3.5-5.1) mmol/L Chloride 106 (98-107) mmol/L Carbon Dioxide 25 (22-30) mmol/L Anion Gap 7 mmol/L BUN 13 (7-17) mg/dL Creatinine 0.67 (0.52-1.04) mg/dL Est GFR (CKD-EPI)AfAm >90 (>60 ml/min/1.73 sqM) Est GFR (CKD-EPI)NonAf >90 (>60 ml/min/1.73 sqM) Glucose 99 (74-99) mg/dL Plasma Lactic Acid Antoni 0.9 (0.7-2.0) mmol/L Calcium 9.5 (8.4-10.2) mg/dL Total Bilirubin 0.5 (0.2-1.3) mg/dL AST 18 (14-36) U/L ALT 13 (4-34) U/L Alkaline Phosphatase 67 (38-126) U/L Total Protein 6.1 L (6.3-8.2) g/dL Albumin 3.8 (3.5-5.0) g/dL Lipase 29 (23-300) U/L Urine Color Urine Appearance (Clear) Urine pH (5.0-8.0) Ur Specific [place] (1.001-1.035) Urine Protein (Negative) Urine Glucose (UA) (Negative) Urine Ketones (Negative) Urine Blood (Negative) Urine Nitrite (Negative) Urine Bilirubin (Negative) Urine Urobilinogen (<2.0) mg/dL Ur Leukocyte Esterase (Negative) 11/13/19 Range/Units 14:28 WBC (3.8-10.6) k/uL RBC (3.80-5.40) m/uL Hgb (11.4-16.0) gm/dL Hct (34.0-46.0) % MCV (80.0-100.0) fL MCH (25.0-35.0) pg MCHC (31.0-37.0) g/dL RDW (11.5-15.5) % Plt Count (150-450) k/uL Neutrophils % % Lymphocytes % % Monocytes % % Eosinophils % % Basophils % % Neutrophils # (1.3-7.7) k/uL Lymphocytes # (1.0-4.8) k/uL Monocytes # (0-1.0) k/uL Eosinophils # (0-0.7) k/uL Basophils # (0-0.2) k/uL Sodium (137-145) mmol/L Potassium (3.5-5.1) mmol/L Chloride (98-107) mmol/L Carbon Dioxide (22-30) mmol/L Anion Gap mmol/L BUN (7-17) mg/dL Creatinine (0.52-1.04) mg/dL Est GFR (CKD-EPI)AfAm (>60 ml/min/1.73 sqM) Est GFR (CKD-EPI)NonAf (>60 ml/min/1.73 sqM) Glucose (74-99) mg/dL Plasma Lactic Acid Antoni (0.7-2.0) mmol/L Calcium (8.4-10.2) mg/dL Total Bilirubin (0.2-1.3) mg/dL AST (14-36) U/L ALT (4-34) U/L Alkaline Phosphatase (38-126) U/L Total Protein (6.3-8.2) g/dL Albumin (3.5-5.0) g/dL Lipase (23-300) U/L Urine Color Yellow Urine Appearance Clear (Clear) Urine pH 7.5 (5.0-8.0) Ur Specific [place] 1.018 (1.001-1.035) Urine Protein Negative (Negative) Urine Glucose (UA) Negative (Negative) Urine Ketones Negative (Negative) Urine Blood Negative (Negative) Urine Nitrite Negative (Negative) Urine Bilirubin Negative (Negative) Urine Urobilinogen <2.0 (<2.0) mg/dL Ur Leukocyte Esterase Negative (Negative) - Radiology Data Radiology results: report reviewed KUB shows moderate stool burden, no evidence for free air or bowel obstruction. Possible hepatomegaly at 19 cm. Disposition Clinical Impression: Gastroparesis Disposition: HOME SELF-CARE Condition: Good Instructions (If sedation given, give patient instructions): Gastroparesis (ED) Additional Instructions: Follow up with GI physician. Return to ED if any alarming signs or symptoms occur. Is patient prescribed a controlled substance at d/c from ED?: No Referrals: Abdi Taylor MD [Primary Care Provider] - 1-2 days Time of Disposition: 15:32
--- NOTE | 2019-11-13 12:08 | XR ---
EXAMINATION TYPE: XR KUB DATE OF EXAM: 11/13/2019 Comparison: 03/20/2019 Clinical History: 49-year-old female abdominal pain and distension Findings: Lung bases are clear. No evidence for free intraperitoneal air. Liver may be enlarged measuring up to 19.0 cm. No dilated small bowel or air-fluid levels. Scattered moderate stool throughout the colon extending distally to the rectum. Generator device projecting at the right hip. No suspicious calcifications seen. Impression: Moderate stool burden. No evidence for free air or bowel obstruction. Possible mild hepatomegaly at 1 9.0 cm.
[2019-11-13 13:48] LABS: ALT 13 U/L (4-34); AST 18 U/L (14-36); African American GFR (CKD) >90 (>60 ml/min/1.73 sqM); Albumin 3.8 g/dL (3.5-5.0); Alkaline Phosphatase 67 U/L (38-126); Anion Gap 7 mmol/L; Blood Urea Nitrogen 13 mg/dL (7-17); Calcium 9.5 mg/dL (8.4-10.2); Carbon Dioxide 25 mmol/L (22-30); Chloride 106 mmol/L (98-107); Glucose 99 mg/dL (74-99); Non-African American GFR(CKD) >90 (>60 ml/min/1.73 sqM); Potassium 4.6 mmol/L (3.5-5.1); Sodium 138 mmol/L (137-145); Total Bilirubin 0.5 mg/dL (0.2-1.3); Total Protein 6.1 g/dL (6.3-8.2)
[2019-11-13 13:54] LABS: Basophils # (A) 0.1 k/uL (0-0.2); Basophils % (A) 1 %; Eosinophils # (A) 0.3 k/uL (0-0.7); Eosinophils % (A) 2 %; HGB 13.3 gm/dL (11.4-16.0); Lymphocytes # (A) 2.2 k/uL (1.0-4.8); Lymphocytes % (A) 21 %; MCH 28.4 pg (25.0-35.0); MCHC 32.5 g/dL (31.0-37.0); MCV 87.4 fL (80.0-100.0); Mean Platelet Volume 7.4; Monocytes # (A) 0.5 k/uL (0-1.0); Monocytes % (A) 5 %; Neutrophils # (A) 7.4 k/uL (1.3-7.7); Neutrophils % (A) 71 %; Platelet Count 349 k/uL (150-450); RBC 4.69 m/uL (3.80-5.40); RDW 13.2 % (11.5-15.5); WBC 10.5 k/uL (3.8-10.6)
[2019-11-13 14:49] LABS: Appearance,Urine Clear (Clear); Bilirubin,Urine Negative (Negative); Blood,Urine Negative (Negative); Color,Urine Yellow; Glucose,Urine (UA) Negative (Negative); Ketones,Urine Negative (Negative); Leukocyte Esterase,Urine Negative (Negative); Nitrite,Urine Negative (Negative); PH, Urine 7.5 (5.0-8.0); Protein,Urine Negative (Negative); Specific Gravity,Urine 1.018 (1.001-1.035); Urobilinogen,Urine <2.0 mg/dL (<2.0)
[2019-11-13] MEDS ORDERED: ONDANSETRON 4 MG/2 ML VIAL IVP STA (15:12)
[2019-11-13] MEDS ORDERED: DEXAMETHASONE SOD PHOSPHATE 10 MG/ML 1 ML VIAL IV STA (15:12)
[2019-11-13] MEDS ORDERED: KETOROLAC 15 MG/ML 1 ML VIAL IVP STA (15:12)
[2019-11-13 16:48] VITALS: BP 127/74; PULSE 70; RESP 18; TEMP 99.4
== END 2019-11-13 16:48 | disposition home or self-care (01) ==
LOC: EC 10:48
DX: E11.43 Type 2 diabetes mellitus with diabetic autonomic (poly)neuropathy (principal); K31.84 Gastroparesis; J45.909 Unspecified asthma, uncomplicated; K21.9 Gastro-esophageal reflux disease without esophagitis; I10 Essential (primary) hypertension; G47.30 Sleep apnea, unspecified; E07.9 Disorder of thyroid, unspecified; G35 Multiple sclerosis; H46.9 Unspecified optic neuritis; G43.909 Migraine, unspecified, not intractable, without status migrainosus; Z79.891 Long term (current) use of opiate analgesic; Z98.890 Other specified postprocedural states; Z79.51 Long term (current) use of inhaled steroids; Z79.4 Long term (current) use of insulin; Z79.899 Other long term (current) drug therapy; Z79.890 Hormone replacement therapy; Z91.048 Other nonmedicinal substance allergy status; Z88.5 Allergy status to narcotic agent; Z91.040 Latex allergy status; Z88.8 Allergy status to other drugs, medicaments and biological substances; Z99.89 Dependence on other enabling machines and devices
CPT/HCPCS: 99284; 96374; 96375 ×5; 96361 ×3; 36415; 80053; 83605; 83690; 85025; 81003; 87040; 74018; J1200; J1100; J2405; J1642; J1885; C9113

== ENCOUNTER → 2019-12-20 | Day surgery (SDC) | payer BC, MEDICARE ==
[2019-12-19 11:10] VITALS: BMI 33.4
[~2019-12-20] MED LIST changes: +IOPAMIDOL-370 100ML BTL INJ ONE; -LACTATED RINGERS 1,000 ML IV ONE; -LIDOCAINE 1% (10MG/ML) FOR IV START INTRADERMA ONE; -LIDOCAINE 1% INJ 10MG/ML (20 ML MDV) ONE; -PROPOFOL 10 MG/ML 20 ML VIAL IV ONE; -diphenhydrAMINE 50 MG/ML 1 ML VIAL IVP ONE; -diphenhydrAMINE 50 MG/ML 1 ML VIAL ONE
[2019-12-20 14:20] VITALS: BP 130/60; PULSE 64; RESP 18; TEMP 98
[2019-12-20 14:29] LABS: Glucose,Whole Blood 88 mg/dL (75-99)
--- NOTE | 2019-12-23 15:39 | IR ---
Port-A-Cath check HISTORY: Pain, Port-A-Cath dysfunction Following informed consent, the skin overlying the patient's port was localized with fluoroscopy. The skin was prepped and draped. Under fluoroscopic guidance the port was accessed with a Julio needle. Gentle hand injection of contrast material was performed under fluoroscopy. 545 images were obtained. 4 minutes of fluoroscopy time. The catheter is intact. There is no evident leak. Flow the contrast material is along the catheter ra ther than from the distal tip. Following the procedure the catheters flushed with heparin flush. Patient remained stable. There is n o immediate application. IMPRESSION: There is a fibrin sheath along the catheter, the tip the catheter is intraluminal within the superior vena cava.
== END ==
LOC: CATHCVL 13:51
PROVIDERS: ATTEND Radiology Diagnostic Radiology
DX: T82.594A Other mechanical complication of infusion catheter, initial encounter (principal)
CPT/HCPCS: 36598; J1642; Q9967

== ENCOUNTER 2019-12-24 08:06 | Day surgery (SDC) | payer BC, MEDICARE ==
[2019-12-19 13:29] VITALS: BMI 33.4
[~2019-12-24 08:06] MED LIST changes: +ACETAMINOPHEN TAB 500 MG TAB PO ONE; +DEXAMETHASONE SOD PHOSPHATE 10 MG/ML 1 ML VIAL IV ONE; +HEPARIN SODIUM,PORCINE 5,000 UNIT/ML 1 ML VIAL SQ ONE; -IOPAMIDOL-370 100ML BTL INJ ONE; +LACTATED RINGERS 1,000 ML IV SCH; +LIDOCAINE 1% (10MG/ML) FOR IV START INTRADERMA PRN; +MIDAZOLAM 2 MG/2 ML VIAL IV PRN; +ONDANSETRON 4 MG/2 ML VIAL IVP ONE
[2019-12-24] MEDS ORDERED: diphenhydrAMINE 50 MG/ML 1 ML VIAL ONE (08:44)
[2019-12-24] MEDS ORDERED: diphenhydrAMINE 50 MG/ML 1 ML VIAL IVP ONE (09:20)
--- NOTE | 2019-12-24 09:28 | P.GSHP ---
History of Present Illness H&P Date: 12/24/19 Chief Complaint: Umbilical hernia This a 41-year-old female who's developed a tender mass at her umbilicus. Patient rents today for laparoscopic robotic periumbilical hernia. Patient. History of abdominoplasty. Past Medical History Past Medical History: Asthma, Diabetes Mellitus, GERD/Reflux, Hypertension, Musculoskeletal Disorder, Neurologic Disorder, Sleep Apnea/CPAP/BIPAP, Thyroid Disorder Additional Past Medical History / Comment(s): MS, back pain, DDD, optic neuritis, Gastroparesis., C-Diff (June 2018) leukopenia (sores in mouth) migraines, sleep apnea due to M.S. (no machine), sarcoidosis, cyst in stomach. , hopitalized 10/04/19 after lumbar puncture because heart rate dropped, hospitalized 10/10/19 for headache (post l.p.), states allergy to all adhesive and needs benadryl IV 50mg prior to using tape or tegaderm etc., no longer take BP med. History of Any Multi-Drug Resistant Organisms: C-DIFF Date of last positivie culture/infection: 2018 MDRO Source:: stool Past Surgical History: Bladder Surgery, Hernia Repair, Hysterectomy, Orthopedic Surgery, Tubal Ligation Additional Past Surgical History / Comment(s): rhinoplasty, bladder suspension, breast sx, morphine pump , RT KNEE SCOPE, TUMMY TUCK, Spinal cord stimulator inserted and removed. port august 2019, gastroparesis, botox and EGD 11/06/2019 Past Anesthesia/Blood Transfusion Reactions: Motion Sickness, Postoperative Nausea & Vomiting (PONV) Smoking Status: Never smoker - Past Family History Father History Unknown: Yes Family Medical History: No Reported History Additional Family Medical History / Comment(s): . Mother History Unknown: Yes Family Medical History: No Reported History Additional Family Medical History / Comment(s): NO FAMILY HISTORY Medications and Allergies Home Medications Medication Instructions Recorded Confirmed Type Albuterol Sulfate [Proair Hfa] 2 puff INHALATION RT-Q6H PRN 09/26/15 12/24/19 History Atorvastatin [Lipitor] 10 mg PO DAILY 09/26/15 12/24/19 History Montelukast [Singulair] 10 mg PO DAILY #30 tab 06/23/16 12/24/19 Rx DULoxetine HCL [Cymbalta] 60 mg PO DAILY 01/10/17 12/24/19 History Ipratropium-Albuterol Nebulize 3 ml INHALATION RT-QID PRN 01/16/17 12/24/19 H istory [Duoneb 0.5 mg-3 mg/3 ml Soln] INSULIN LISPRO (HumaLOG) [humaLOG] See Protocol SQ ACHS PRN 01/19/17 12/24/19 History tiZANidine HCL [Zanaflex] 2 mg PO Q6H PRN 06/15/17 12/24/19 History Scopolamine 1.5MG/72Hr Patch 1 patch TRANSDERM Q72H 07/07/17 12/24/19 History [TransDerm Scop] metFORMIN HCL [Glucophage] 500 mg PO BID #60 tab 02/10/18 12/24/19 Rx Levothyroxine Sodium [Synthroid] 112 mcg PO DAILY 12/05/18 12/24/19 History rOPINIRole HCL [Requip] 2 mg PO TID 12/05/18 12/24/19 History Erenumab-Aooe [Aimovig 140 mg SQ Q30D 01/15/19 12/24/19 History Autoinjector] Baclofen 20 mg PO QID 04/29/19 12/24/19 History Omeprazole [PriLOSEC] 20 mg PO BID 04/29/19 12/24/19 History Cyanocobalamin (Vitamin B-12) 1,000 mcg PO DAILY 10/01/19 12/24/19 History [Vitamin B-12] Hydrochlorothiazide 12.5 mg PO DAILY #30 capsule 10/04/19 12/24/19 Rx [hydroCHLOROthiazide] Morphine Pain Pump 1 dose INTRATHECA CONTINUOUS 10/10/19 12/24/19 History Acetaminophen-Codeine 300-30mg 1 tab PO TID PRN 10/22/19 12/24/19 History [Tylenol w/codeine #3] Ergocalciferol [Vitamin D2] 50,000 unit PO WE 10/22/19 12/24/19 History Lidocaine 4% Cream [Lmx 4] 1 applic TOPICAL DAILY PRN 11/13/19 12/24/19 History Ondansetron Odt [Zofran Odt] 8 mg PO Q6H PRN 11/13/19 12/24/19 History SUMAtriptan SUCCINATE [Imitrex] 4 mg SQ DIRECTED PRN 12/19/19 12/24/19 Hist ory Allergies Allergy/AdvReac Type Severity Reaction Status Date / Time adhesive Allergy Severe Rash/Hives Verified 12/24/19 08:32 adhesive tape Allergy Severe Rash/Hives Verified 12/24/19 08:32 fentanyl Allergy Severe Rash/Hives Verified 12/24/19 08:32 from patch only latex Allergy Severe Rash/Hives Verified 12/24/19 08:32 metoclopramide [From Reglan] Allergy dystonia Verified 12/24/19 08:32 from IV Reglan Surgical - Exam - General well developed, well nourished, no distress - Eyes PERRL - ENT normal pinna - Neck no masses - Respiratory normal expansion - Cardiovascular Rhythm: regular - Abdomen Abdomen: soft, non tender Hernia: umbilical (3 cm mass in umbilicus) Assessment and Plan Assessment: Umbilical hernia. We'll perform laparoscopic robotic-assisted repair.
[2019-12-24] MEDS ORDERED: SCOPOLAMINE 1.5MG/72HR PATCH TRANSDERM ONE (09:29)
[2019-12-24 09:30] LABS: Glucose,Whole Blood 114 mg/dL (75-99)
[2019-12-24] MEDS ORDERED: SUCCINYLCHOLINE CHLORIDE 100 MG/5 ML SYR IV ONE (09:51)
[2019-12-24] MEDS ORDERED: NEOSTIGMINE 1 MG/ML 10 ML VIAL ONE (09:51)
[2019-12-24] MEDS ORDERED: ePHEDrine SULFATE/0.9% NACL/PF 50 MG/5 ML SYRINGE IV ONE (09:51)
[2019-12-24] MEDS ORDERED: fentaNYL (PF) 50 MCG/ML 2 ML AMP ONE (09:51)
[2019-12-24] MEDS ORDERED: ROCURONIUM BROMIDE 10 MG/ML 5 ML VIAL IV ONE (09:51)
[2019-12-24] MEDS ORDERED: LIDOCAINE 1% INJ 10MG/ML (20 ML MDV) ONE (09:51)
[2019-12-24] MEDS ORDERED: MIDAZOLAM 2 MG/2 ML VIAL ONE (09:51)
[2019-12-24] MEDS ORDERED: PROPOFOL 10 MG/ML 20 ML VIAL IV ONE (09:51)
[2019-12-24] MEDS ORDERED: GLYCOPYRROLATE 0.2 MG/ML 2 ML VIAL ONE (09:51)
[2019-12-24] MEDS ORDERED: LIDOCAINE 1%-EPI 1:100,000 20 ML VIAL SQ ONE ×2 (10:09→10:25)
--- NOTE | 2019-12-24 10:36 | P.OP ---
Date of Procedure: 12/24/19 Preoperative Diagnosis: Umbilical hernia Postoperative Diagnosis: Incisional hernia Sebaceous cyst Procedure(s) Performed: Excision of sebaceous cyst Repair of incisional hernia Anesthesia: MINH Surgeon: Skyler Denney Estimated Blood Loss (ml): 10 Pathology: other (Sebaceous cyst) Condition: stable Disposition: PACU Description of Procedure: The patient's placed on the operative table in the supine position. She received general anesthesia. Her abdomen was prepped and draped in sterile fashion. The patient a previous medical therapy. Her umbilicus had been previously excised. The skin incision was made below the umbilical scar. Using blunt sharp dissection with cautery a sebaceous cyst was found. This measured approximately 3 cm diameter. This was dissected free with cautery and sent to pathology. The hernia defect was then visualized. It measured approximately 3 cm diameter. The hernia defect was then closed using number once traffic suture. After the hernia was repaired. The skin was closed interrupted 3-0 Monocryl suture. Dermabond was applied. Patient top she will was sent to recovery room stable condition
[2019-12-24 10:42] VITALS: TEMP 98.3
[2019-12-24] MEDS ORDERED: KETOROLAC 15 MG/ML 1 ML VIAL IVP ONE (10:51)
[2019-12-24 10:58] LABS: Glucose,Whole Blood 180 mg/dL (75-99)
[2019-12-24] MEDS: HYDROmorphone 0.5 MG/0.5 ML SYRINGE IVP PRN ×4 (11:00→11:15)
[2019-12-24] MEDS ORDERED: LACTATED RINGERS 1,000 ML IV ONE (12:26)
[2019-12-24] MEDS ORDERED: HYDROcodone/APAP 5-325MG 1 EACH TAB PO ONE (12:31)
[2019-12-24] MEDS ORDERED: HYDROcodone/APAP 5-325MG 1 EACH TAB ONE (12:31)
[2019-12-24 12:55] VITALS: RESP 20
[2019-12-24 13:09] VITALS: BP 113/63; PULSE 63
== END 2019-12-24 13:27 | disposition home or self-care (01) ==
LOC: OR 08:06
PROVIDERS: ATTEND Surgery
DX: K43.2 Incisional hernia without obstruction or gangrene (principal); L72.0 Epidermal cyst; I10 Essential (primary) hypertension; E11.9 Type 2 diabetes mellitus without complications; E07.9 Disorder of thyroid, unspecified; J45.909 Unspecified asthma, uncomplicated; E78.5 Hyperlipidemia, unspecified; K21.9 Gastro-esophageal reflux disease without esophagitis; G43.909 Migraine, unspecified, not intractable, without status migrainosus; G47.30 Sleep apnea, unspecified; G35 Multiple sclerosis; Z91.040 Latex allergy status; Z91.048 Other nonmedicinal substance allergy status; Z88.8 Allergy status to other drugs, medicaments and biological substances; Z79.890 Hormone replacement therapy; Z79.891 Long term (current) use of opiate analgesic; Z79.4 Long term (current) use of insulin; Z79.899 Other long term (current) drug therapy; Z90.710 Acquired absence of both cervix and uterus; Z98.890 Other specified postprocedural states; Z99.89 Dependence on other enabling machines and devices; Z86.19 Personal history of other infectious and parasitic diseases; Z98.51 Tubal ligation status
CPT/HCPCS: 88304; 49560; J2250; J1200; J1644; J1100; J2710; J0690; J2405; J2001; J3010; J1885; J0330; J2704; J1170

== ENCOUNTER → 2020-03-16 | Outpatient (CLI) | payer BC, MEDICARE ==
[~2020-03-16] MED LIST changes: -ACETAMINOPHEN TAB 500 MG TAB PO ONE; -DEXAMETHASONE SOD PHOSPHATE 10 MG/ML 1 ML VIAL IV ONE; -HEPARIN SODIUM,PORCINE 5,000 UNIT/ML 1 ML VIAL SQ ONE; -LACTATED RINGERS 1,000 ML IV SCH; -LIDOCAINE 1% (10MG/ML) FOR IV START INTRADERMA PRN; -MIDAZOLAM 2 MG/2 ML VIAL IV PRN; -ONDANSETRON 4 MG/2 ML VIAL IVP ONE; +diphenhydrAMINE 50 MG/ML 1 ML VIAL IVP STA
[2020-03-16 15:15] LABS: African American GFR (CKD) >90 (>60 ml/min/1.73 sqM); Blood Urea Nitrogen 12 mg/dL (7-17); Non-African American GFR(CKD) >90 (>60 ml/min/1.73 sqM)
--- NOTE | 2020-03-16 16:48 | CT ---
EXAMINATION TYPE: CT chest w con DATE OF EXAM: 03/16/2020 COMPARISON: Chest x-ray April 30, 2019 and older x-rays. HISTORY: sarcoidosis CT DLP: 768 mGycm. Automated Exposure Control for Dose Reduction was Utilized. TECHNIQUE: CT scan of the thorax is performed following with IV Contrast, patient injected with 100 mL of Isovue 300. FINDINGS: LUNGS: The lungs are grossly clear, there is no concerning parenchymal mass or nodule identified. T here is no pleural effusion or pneumothorax seen. The tracheobronchial tree is patent. MEDIASTINUM: There are prominent borderline enlarged prevascular, AP window, right paratracheal, and bilateral hilar lymph nodes. No definitive greater than 1 cm thoracic lymph nodes. No cardiomegaly or pericardial effusion is seen. OTHER: There is right internal jugular Mediport catheter terminating in SVC. Small sized hiatal herni a. Subpectoral bilateral breast implants noted. IMPRESSION: No acute or chronic pulmonary parenchymal process. Prominent but subcentimeter thoracic l ymph nodes.
== END | disposition home or self-care (01) ==
LOC: RADPROMAIN 13:37
PROVIDERS: ATTEND Internal Medicine
DX: R59.0 Localized enlarged lymph nodes (principal); J98.4 Other disorders of lung
CPT/HCPCS: 82565; 84520; 71260; 36415; J1200; J1642; Q9967

== ENCOUNTER 2020-05-10 13:25 | Observation (INO) | payer BC, MEDICARE ==
--- NOTE | 2020-05-10 13:59 | ED ---
Chest Pain HPI - General Chief Complaint: Chest Pain Stated Complaint: Chest Pain Time Seen by Provider: 05/10/20 13:30 Source: patient, EMS Mode of arrival: EMS Limitations: no limitations - History of Present Illness Initial Comments: Patient is a 49-year-old female, with history of diabetes, hypertension, recent diagnosis sarcoidosis, presenting to the emergency Department as a transfer from [facility] for chest pain. Patient states she woke up this morning with left arm pain with radiation into her chest as well as chest tightness. Patient was seen and evaluated [facility], she had normal blood work and chest x-ray, normal EKG and first troponin was normal. Patient has a recent diagnosis of sarcoidosis, was also start transfusions in a week. Patient also had a recent gastric surgery at [facility] one week ago. She has been recovering well from this. Patient has received an aspirin, fluids, Solu- Medrol, Benadryl and Zofran prior to arrival. Currently she is experiencing no chest pain, she does continue to have pain in the left shoulder. She rates her pain as 7/10. Patient is currently on a morphine pump. Patient denies any fever or chills. She has no shortness of breath. She has no further complaints at this time. - Related Data Home Medications Medication Instructions Recorded Confirmed Albuterol Sulfate [Proair Hfa] 2 puff INHALATION RT-Q6H PRN 09/26/15 12/24/19 Atorvastatin [Lipitor] 10 mg PO DAILY 09/26/15 12/24/19 DULoxetine HCL [Cymbalta] 60 mg PO DAILY 01/10/17 12/24/19 Ipratropium-Albuterol Nebulize 3 ml INHALATION RT-QID PRN 01/16/17 12/24/19 [Duoneb 0.5 mg-3 mg/3 ml Soln] INSULIN LISPRO (HumaLOG) [humaLOG] See Protocol SQ ACHS PRN 01/19/17 12/24/19 tiZANidine HCL [Zanaflex] 2 mg PO Q6H PRN 06/15/17 12/24/19 Scopolamine 1.5MG/72Hr Patch 1 patch TRANSDERM Q72H 07/07/17 12/24/19 [TransDerm Scop] Levothyroxine Sodium [Synthroid] 112 mcg PO DAILY 12/05/18 12/24/19 rOPINIRole HCL [Requip] 2 mg PO TID 12/05/18 12/24/19 Erenumab-Aooe [Aimovig 140 mg SQ Q30D 01/15/19 12/24/19 Autoinjector] Baclofen 20 mg PO QID 04/29/19 12/24/19 Omeprazole [PriLOSEC] 20 mg PO BID 04/29/19 12/24/19 Cyanocobalamin (Vitamin B-12) 1,000 mcg PO DAILY 10/01/19 12/24/19 [Vitamin B-12] Morphine Pain Pump 1 dose INTRATHECA CONTINUOUS 10/10/19 12/24/19 Acetaminophen-Codeine 300-30mg 1 tab PO TID PRN 10/22/19 12/24/19 [Tylenol w/codeine #3] Ergocalciferol [Vitamin D2] 50,000 unit PO WE 10/22/19 12/24/19 Lidocaine 4% Cream [Lmx 4] 1 applic TOPICAL DAILY PRN 11/13/19 12/24/19 Ondansetron Odt [Zofran Odt] 8 mg PO Q6H PRN 11/13/19 12/24/19 SUMAtriptan SUCCINATE [Imitrex] 4 mg SQ DIRECTED PRN 12/19/19 12/24/19 Previous Rx's Medication Instructions Recorded Montelukast [Singulair] 10 mg PO DAILY #30 tab 06/23/16 metFORMIN HCL [Glucophage] 500 mg PO BID #60 tab 02/10/18 Hydrochlorothiazide 12.5 mg PO DAILY #30 capsule 10/04/19 [hydroCHLOROthiazide] Docusate [Colace] 100 mg PO BID #20 capsule 12/24/19 HYDROcodone/APAP 5-325MG [[place] 1 tab PO Q6HR PRN #10 tab 12/24/19 5-325] Allergies Allergy/AdvReac Type Severity Reaction Status Date / Time adhesive Allergy Severe Rash/Hives Verified 12/24/19 08:32 adhesive tape Allergy Severe Rash/Hives Verified 12/24/19 08:32 fentanyl Allergy Severe Rash/Hives Verified 12/24/19 08:32 from patch only latex Allergy Severe Rash/Hives Verified 12/24/19 08:32 metoclopramide [From Reglan] Allergy dystonia Verified 12/24/19 08:32 from IV Reglan prochlorperazine Allergy Unknown Verified 05/10/20 13:43 [From Compazine] Review of Systems ROS Statement: Those systems with pertinent positive or pertinent negative responses have been documented in the HPI. ROS Other: All systems not noted in ROS Statement are negative. Past Medical History Past Medical History: Asthma, Diabetes Mellitus, GERD/Reflux, Hypertension, Musculoskeletal Disorder, Neurologic Disorder, Sleep Apnea/CPAP/BIPAP, Thyroid Disorder Additional Past Medical History / Comment(s): MS, back pain, DDD, optic neuritis, Gastroparesis., C-Diff (June 2018) leukopenia (sores in mouth) migraines, sleep apnea due to M.S. (no machine), sarcoidosis, cyst in stomach. , hopitalized 10/04/19 after lumbar puncture because heart rate dropped, hos pitalized 10/10/19 for headache (post l.p.), states allergy to all adhesive and needs benadryl IV 50mg prior to using tape or tegaderm etc. History of Any Multi-Drug Resistant Organisms: C-DIFF Date of last positivie culture/infection: 2018 MDRO Source:: stool Past Surgical History: Bladder Surgery, Breast Surgery, Hernia Repair, Hysterectomy, Orthopedic Surgery, Tubal Ligation Additional Past Surgical History / Comment(s): rhinoplasty, bladder suspension, breast sx, morphine pump , RT KNEE SCOPE, TUMMY TUCK, Spinal cord stimulator inserted and removed. port august 2019, gastroparesis botox and EGD 11/06/2019, breast implants, gastric surgery 05/05/20 Past Anesthesia/Blood Transfusion Reactions: Motion Sickness, Postoperative Nausea & Vomiting (PONV) Past Psychological History: No Psychological Hx Reported Smoking Status: Never smoker - Past Family History Father History Unknown: Yes Family Medical History: No Reported History Additional Family Medical History / Comment(s): . Mother History Unknown: Yes Family Medical History: No Reported History Additional Family Medical History / Comment(s): NO FAMILY HISTORY General Exam - General Exam Comments Initial Comments: GENERAL: Patient is well-developed and well-nourished. Patient is nontoxic and in no acute distress. HEAD: Atraumatic, normocephalic. EYES: Pupils equal round and reactive to light, extraocular movements intact, sclera anicteric, conjunctiva are normal. Eyelids were unremarkable. ENT: TMs normal, nares patent, oropharynx clear without exudates. Moist mucous membranes. NECK: Normal range of motion, supple without lymphadenopathy or JVD. LUNGS: Unlabored respirations. Breath sounds clear to auscultation bilaterally and equal. No wheezes rales or rhonchi. HEART: Regular rate and rhythm without murmurs, rubs or gallops. ABDOMEN: Recent gastric surgery, incisions clean and dry. Soft, normoactive bowel sounds. No guarding, no rebound. No masses appreciated. : Deferred MUSCULOSKELETAL: Normal extremities with adequate strength and normal range of motion, no pitting or edema. No clubbing or cyanosis. NEUROLOGICAL: Patient is alert and oriented x 3. Motor and sensory are also intact. Cranial nerves II through XII grossly intact. Symmetrical smile. Normal speech, normal gait. PSYCH: Normal mood, normal affect. SKIN: Warm, Dry, normal turgor, no rashes or lesions noted. Limitations: no limitations Course Vital Signs 05/10/20 13:31 Temperature 98.2 F Pulse Rate 96 Respiratory 16 Rate Blood Pressure 137/93 O2 Sat by Pulse 98 Oximetry Chest Pain [facility] Patient is a 49-year-old female with history of diabetes, sarcoidosis, recent gastric surgery one week ago, presenting as a [facility] transfer for chest pain. EKG showed no acute process, lab work including troponin was normal, BNP was normal, rapid Covid and influenza were both negative today as well. Patient will be admitted for chest pain r/o, serial troponins and cardiac consult. Patient accepted by Dr. Ferreira. Case discussed with Dr. moreno. Disposition Clinical Impression: Chest pain Disposition: ADMITTED IP TO THIS HOSP Condition: Stable Referrals: Abdi Taylor MD [Primary Care Provider] - 1-2 days Decision Date: 05/10/20 Decision Time: 14:30
[2020-05-10] MEDS ORDERED: NITROGLYCERIN SL TABS 0.4 MG TAB SUBLINGUAL PRN (14:28)
[2020-05-10] MEDS ORDERED: KETOROLAC 15 MG/ML 1 ML VIAL IVP STA (14:36)
[2020-05-10] MEDS ORDERED: SUMAtriptan succinate 6 MG/0.5 ML VIAL SQ PRN (16:23)
[2020-05-10] MEDS ORDERED: ONDANSETRON ODT 8 MG TAB.RAPDIS PO PRN (16:23)
[2020-05-10] MEDS ORDERED: ALBUTEROL HFA INHALER INHALATION PRN (16:23)
[2020-05-10] MEDS ORDERED: Acetaminophen-Codeine 300-30mg TAB PO PRN (16:23)
[2020-05-10] MEDS ORDERED: diphenhydrAMINE 50 MG CAP PO PRN (17:00)
[2020-05-10] MEDS ORDERED: diphenhydrAMINE 50 MG/ML 1 ML VIAL IVP SCH (17:00)
[2020-05-10 17:09] LABS: Glucose,Whole Blood 150 mg/dL (75-99)
[2020-05-10] MEDS: BACLOFEN 10 MG TAB PO SCH ×2 (17:47→22:37)
[2020-05-10] MEDS ORDERED: ATORVASTATIN 10 MG TAB PO SCH (21:00)
[2020-05-10 21:01] LABS: Glucose,Whole Blood 207 mg/dL (75-99)
--- NOTE | 2020-05-10 22:33 | P.HPIM ---
History of Present Illness H&P Date: 05/10/20 Chief Complaint: Chest pressure History of presenting complaint: This is a [address] Taylor. Chronic stable medical conditions include asthma, diabetes, GERD, hypertension,(s) sleep apnea, optic neuritis, gastroparesis-recently had surgery for hoping the pylorus. Patient has a morphine pain pump that is operated by . Patient of month ago had lymph nodes pulmonary biopsy done at [facility].. pt has received first dose of Inflectra. Patient today developed a pressure across the chest left arm and presented to [facility]. Her EKG and troponin was negative. No dizziness nor lightheadedness. Patient is on a soft diet because of her gastric surgery. No fever no chills. No cough. Patient is as a telei appointment with the last waxer tomorrow. Review of systems: GEN.: Tired EYES: None HEENT: Has a migraine headache NECK: None RESPIRATORY: None CARDIOVASCULAR: As above GASTROINTESTINAL: None GENITOURINARY: None MUSCULOSKELETAL: None LYMPHATICS: None HEMATOLOGICAL: None PSYCHIATRY: [But anxious NEUROLOGICAL: None Past medical history to include: Asthma, diabetes, GERD, hypertension, chronic pain syndrome, obstructive sleep apnea, multiple sclerosis, optic neuritis, gastroparesis-with outlet surgery, sarcoidosis, morphine pain pump Social history: . Does not smoke or drink alcohol. 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 Conjunctiva normal. HEENT: External appearance of nose and ears normal, oral cavity grossly normal. NECK: JVD not raised; masses not palpable. HEART: First and second heart sounds are normal; no edema. LUNGS: Respiratory rate normal; clear to auscultation. ABDOMEN: Soft, nontender, liver spleen not palpable, no masses palpable. PSYCH: [Alert and oriented x3; mood and affect slightly anxious NEUROLOGICAL: Cranial nerves grossly intact; no facial asymmetry, power and sensation grossly intact. LYMPHATICS: No lymph nodes palpable in the axilla and neck INVESTIGATIONS, reviewed in the clinical context: Troponin I 2 negative here. Additional set was negative at [facility]. Assessment and plan: -Patient presents with chest pain and left arm. EKG was reported to be negative. Troponin is negative. Could be muscular skeletal. Patient has cardiac risk factors. Telemetry. Consult cardiology -Sarcoidosis. Patient had lymph node biopsies done about 4 weeks ago at [facility]. Patient be started on Inflectra infusion. -Diabetes mellitus type 2 on oral hypoglycemic. Follow Accu-Cheks. -Gastroparesis-patient is just had pylorus release surgery at [facility]. Soft diet -GERD -Hypertension -Obstructive sleep apnea -Hypothyroid -Multiple sclerosis -Optic neuritis -Chronic pain syndrome patient does have a morphine pain pump being followed by Dr. Dias Care was discussed with the patient. Questions answered. Past Medical History Past Medical History: Asthma, Diabetes Mellitus, GERD/Reflux, Hypertension, Musculoskeletal Disorder, Neurologic Disorder, Sleep Apnea/CPAP/BIPAP, Thyroid Disorder Additional Past Medical History / Comment(s): MS, back pain, DDD, optic neuritis, Gastroparesis., C-Diff (June 2018) leukopenia (sores in mouth) migraines, sleep apnea due to M.S. (no machine), sarcoidosis, cyst in stomach. , hopitalized 10/04/19 after lumbar puncture because heart rate dropped, hospitalized 10/10/19 for headache (post l.p.), states allergy to all adhesive and needs benadryl IV 50mg prior to using tape or tegaderm etc. History of Any Multi-Drug Resistant Organisms: C-DIFF Date of last positivie culture/infection: 2018 MDRO Source:: stool Past Surgical History: Bladder Surgery, Breast Surgery, Hernia Repair, Hysterectomy, Orthopedic Surgery, Tubal Ligation Additional Past Surgical History / Comment(s): rhinoplasty, bladder suspension, breast sx, morphine pump , RT KNEE SCOPE, TUMMY TUCK, Spinal cord stimulator inserted and removed. port august 2019, gastroparesis botox and EGD 11/06/2019, breast implants, gastric surgery 05/05/20 Past Anesthesia/Blood Transfusion Reactions: Motion Sickness, Postoperative Nausea & Vomiting (PONV) Past Psychological History: No Psychological Hx Reported Additional Psychological History / Comment(s): . Smoking Status: Never smoker Past Alcohol Use History: Occasional Past Drug Use History: None Reported - Past Family History Father History Unknown: Yes Family Medical History: No Reported History Additional Family Medical History / Comment(s): . Mother History Unknown: Yes Family Medical History: No Reported History Additional Family Medical History / Comment(s): NO FAMILY HISTORY Medications and Allergies Home Medications Medication Instructions Recorded Confirmed Type Albuterol Sulfate [Proair Hfa] 2 puff INHALATION RT-Q6H PRN 09/26/15 05/10/20 History Atorvastatin [Lipitor] 10 mg PO HS 09/26/15 05/10/20 History Montelukast [Singulair] 10 mg PO DAILY #30 tab 06/23/16 05/10/20 Rx DULoxetine HCL [Cymbalta] 60 mg PO DAILY 01/10/17 05/10/20 History Scopolamine 1.5MG/72Hr Patch 1 patch TRANSDERM Q72H 07/07/17 05/10/20 History [TransDerm Scop] metFORMIN HCL [Glucophage] 500 mg PO BID #60 tab 02/10/18 05/10/20 Rx Levothyroxine Sodium [Synthroid] 112 mcg PO DAILY 12/05/18 05/10/20 History rOPINIRole HCL [Requip] 2 mg PO TID 12/05/18 05/10/20 History Baclofen 20 mg PO QID 04/29/19 05/10/20 History Cyanocobalamin (Vitamin B-12) 1,000 mcg PO DAILY 10/01/19 05/10/20 History [Vitamin B-12] Hydrochlorothiazide 12.5 mg PO DAILY #30 capsule 10/04/19 05/10/20 Rx [hydroCHLOROthiazide] Morphine Pain Pump 1 dose INTRATHECA CONTINUOUS 10/10/19 05/10/20 History Acetaminophen-Codeine 300-30mg 1 tab PO Q12H PRN 10/22/19 05/10/20 History [Tylenol w/codeine #3] Ondansetron Odt [Zofran Odt] 8 mg PO Q6H PRN 11/13/19 05/10/20 History Ergocalciferol [Vitamin D2 (1250 1,250 mcg PO WE 05/10/20 05/10/20 History Mcg = 31699 Iu)] Fremanezumab-Vfrm [Ajovy 225 mg SQ Q30D 05/10/20 05/10/20 History Autoinjector] Gabapentin [Neurontin] 100 mg PO TID 05/10/20 05/10/20 History Pantoprazole Sodium [Protonix] 40 mg PO DAILY 05/10/20 05/10/20 History SUMAtriptan succinate [Sumatriptan 12 mg SQ DAILY PRN 05/10/20 05/10/20 History Succinate] methocarbamoL [Robaxin] 500 mg PO TID 05/10/20 05/10/20 History Allergies Allergy/AdvReac Type Severity Reaction Status Date / Time adhesive Allergy Severe Rash/Hives Verified 05/10/20 15:57 adhesive tape Allergy Severe Rash/Hives Verified 05/10/20 15:57 fentanyl Allergy Severe Rash/Hives Verified 05/10/20 15:57 from patch only latex Allergy Severe Rash/Hives Verified 05/10/20 15:57 metoclopramide [From Reglan] Allergy dystonia Verified 05/10/20 15:57 from IV Reglan prochlorperazine Allergy Unknown Verified 05/10/20 15:57 [From Compazine] Physical Exam Vitals: Vital Signs Temp Pulse Pulse Resp BP BP Pulse Ox 05/10/20 15:10 98.8 F 64 19 130/83 98 05/10/20 14:44 70 16 125/72 97 05/10/20 13:31 98.2 F 96 16 137/93 98 Intake and Output 05/10/20 05/10/20 05/10/20 06:59 14:59 22:59 Intake Total 540 Balance 540 Intake: Oral 540 Other: # Voids 0 Weight 104.326 kg 104.326 kg Results Labs: Abnormal Lab Results - Last 24 Hours (Table) 05/10/20 05/10/20 Range/Units 17:08 20:57 POC Glucose (mg/dL) 150 H 207 H (75-99) mg/dL Thrombosis Risk Factor Assmnt - Choose All That Apply Each Factor Represents 1 point: Age 41-60 years Thrombosis Risk Factor Assessment Total Risk Factor Score: 1 Thrombosis Risk Factor Assessment Level: Low Risk
[2020-05-10] MEDS: GABAPENTIN 100 MG CAP PO SCH (22:37)
[2020-05-10] MEDS: methocarbamoL 500 MG TAB PO SCH (22:38)
[2020-05-10] MEDS: diphenhydrAMINE 50 MG/ML 1 ML VIAL IVP SCH (22:38)
[2020-05-10] MEDS: metFORMIN 500 MG TAB PO SCH (22:39)
[2020-05-10 23:03] LABS: Basophils % (A) 0 %; Eosinophils # (A) 0.3 k/uL (0-0.7); Eosinophils % (A) 2 %; HCT 40.7 % (34.0-46.0); HGB 13.5 gm/dL (11.4-16.0); Lymphocytes # (A) 1.1 k/uL (1.0-4.8); Lymphocytes % (A) 7 %; MCH 29.5 pg (25.0-35.0); MCHC 33.2 g/dL (31.0-37.0); Mean Platelet Volume 7.2; Monocytes # (A) 0.3 k/uL (0-1.0); Monocytes % (A) 2 %; Neutrophils % (A) 89 %; Platelet Count 341 k/uL (150-450); RBC 4.57 m/uL (3.80-5.40); WBC 15.7 k/uL (3.8-10.6)
[2020-05-10 23:14] LABS: African American GFR (CKD) >90 (>60 ml/min/1.73 sqM); Anion Gap 14 mmol/L; Blood Urea Nitrogen 19 mg/dL (7-17); Calcium 9.1 mg/dL (8.4-10.2); Carbon Dioxide 20 mmol/L (22-30); Chloride 105 mmol/L (98-107); Glucose 186 mg/dL (74-99); Magnesium 1.8 mg/dL (1.6-2.3); Non-African American GFR(CKD) >90 (>60 ml/min/1.73 sqM); Potassium 4.4 mmol/L (3.5-5.1); Sodium 139 mmol/L (137-145)
[2020-05-11] MEDS: DULoxetine HCL 60 MG CAPSULE.DR PO SCH ×2 (00:28→13:36)
[2020-05-11] MEDS: diphenhydrAMINE 50 MG/ML 1 ML VIAL IVP SCH ×2 (04:49→12:11)
[2020-05-11] MEDS ORDERED: LEVOTHYROXINE 112 MCG TAB PO SCH (06:30)
[2020-05-11] MEDS ORDERED: PANTOPRAZOLE 40 MG TABLET PO SCH (07:30)
[2020-05-11] MEDS ORDERED: DOBUTamine DRIP for NUC MED 500 MG in DEXTROSE/WATER 1 250ML.BAG IV PRN (07:55)
[2020-05-11 08:19] VITALS: BP 142/85; PULSE 68; RESP 16; TEMP 98.2
[2020-05-11 08:27] LABS: Glucose,Whole Blood 45 mg/dL (75-99)
--- NOTE | 2020-05-11 08:30 | CONS ---
CONSULTATION Mrs. Braun is a 49-year-old female with history of multiple sclerosis, history of recently diagnosed sarcoidosis, who presented to the hospital with symptoms of chest and arm discomfort. The discomfort occurred at rest and persisted throughout the day, was not associated with any other symptoms. The patient has a known history of chronic dyspnea on exertion. She is limited in her physical activity and has chronic pain pump. She recently underwent surgery at [facility] for gastroparesis. She was diagnosed with the sarcoidosis and was scheduled to start treatment. She has a Port-A-Cath. The patient has chronic dyspnea on exertion, history of bronchial asthma. She has no peripheral edema. No dizziness or palpitation. No syncope. She has no prior history of smoking or documented coronary artery disease. She has a history of diabetes and hypertension. MEDICATION: Her medications at home include Requip, Robaxin, metformin 500 mg twice a day, sumatriptan, scopolamine, Protonix, Zofran, Singulair, Synthroid, hydrochlorothiazide 12.5 mg daily, Lipitor 10 mg daily. REVIEW OF SYSTEMS: RESPIRATORY SYSTEM: She has chronic dyspnea on exertion, cough, but no recent wheezing. GI SYSTEM: She has gastroparesis. No recent GI bleeding. She has nausea. SYSTEM: No dysuria or hematuria. NERVOUS SYSTEM: She has chronic pain, but no history of stroke or seizure. PHYSICAL EXAMINATION: A 49-year-old female, alert, oriented, in no apparent distress. Blood pressure 116/70 with the heart rate in the 70s. HEAD: Normocephalic. EYES: Sclerae anicteric. NECK: Good carotid upstroke. No bruit. No jugular venous distention. LUNGS: Clear to auscultation. HEART: Regular rate and rhythm. S1, S2. No S3 with systolic ejection murmur 2/6 heard at the base. No diastolic murmur. No rub. ABDOMEN: Soft, obese, nontender. EXTREMITIES: No edema. Intact distal pulses. EKG revealed a sinus mechanism with no acute ST-segment changes. LAB DATA: Lab data revealed a hemoglobin of 13.5, her white blood cells 15.7. BUN and creatinine 19 and 0.72. Troponin less than 0.012. IMPRESSION: 1. Chest discomfort, has atypical features for ischemic heart disease probably noncardiac. 2. History of sarcoidosis. 3. History of multiple sclerosis. 4. Chronic pain. 5. History of diabetes mellitus. RECOMMENDATION: From the cardiac standpoint, I will obtain echocardiogram and the dobutamine stress echocardiogram to assess her status and guide her treatment and depending on those testing, further recommendation will be made. Thank you for this consult. We will follow with you. POONAM / ADRIANN: [id number] /
[2020-05-11 08:59] LABS: Glucose,Whole Blood 41 mg/dL (75-99)
[2020-05-11] MEDS ORDERED: hydroCHLOROthiazide 12.5 MG CAP PO SCH (09:00)
[2020-05-11] MEDS ORDERED: ASPIRIN 325 MG TAB PO SCH (09:00)
[2020-05-11] MEDS ORDERED: CYANOCOBALAMIN 500 MCG TAB PO SCH (09:00)
[2020-05-11] MEDS ORDERED: MONTELUKAST 10 MG TAB PO SCH (09:00)
[2020-05-11] MEDS ORDERED: DULoxetine HCL 60 MG CAPSULE.DR PO SCH (09:00)
[2020-05-11] MEDS ORDERED: SCOPOLAMINE 1.5MG/72HR PATCH TRANSDERM SCH (09:00)
[2020-05-11 09:16] LABS: Chol/HDL Ratio 4.15
[2020-05-11] MEDS ORDERED: DEXTROSE 50% SYRINGE 50 ML IVP STA (09:19)
[2020-05-11 10:07] LABS: Glucose,Whole Blood 81 mg/dL (75-99)
--- NOTE | 2020-05-11 13:16 | ECHOF ---
Referral Reason:cp MEASUREMENTS -------- HEIGHT: 172.7 cm WEIGHT: 104.3 kg BP: IVSd: 1.2 cm (0.6 - 1.1) LVIDd: 4.0 cm (3.9 - 5.3) LVPWd: 1.3 cm (0.6 - 1.1) IVSs: 1.7 cm LVIDs: 2.5 cm LVPWs: 1.9 cm Ao Diam: 3.0 cm (2.0 - 3.7) AV Cusp: 2.1 cm (1.5 - 2.6) LA Diam: 3.7 cm (2.7 - 3.8) MV EXCURSION: 9.479 mm (> 18.000) MV EF SLOPE: 105 mm/s (70 - 150) EPSS: 0.6 cm MV E Alireza: 1.09 m/s MV DecT: 314 ms MV A Alireza: 0.94 m/s MV E/A Ratio: 1.16 RAP: 5.00 mmHg RVSP: 33.58 mmHg FINDINGS -------- Sinus rhythm. This was a technically difficult study with suboptimal views. Pt. Has Breast inplants The left ventricular size is normal. There is mild concentric left ventricular hypertrophy. Overa ll left ventricular systolic function is normal with, an EF between 55 - 60 %. The right ventricle is normal in size. The left atrial size is normal. The right atrial size is normal. 5.0mg of Lumason was utilized for enhancement of images The aortic valve is trileaflet, and appears structurally normal. No aortic stenosis or regurgitation. The mitral valve is normal. There is trace mitral regurgitation. The tricuspid valve appears structurally normal. Trace tricuspid regurgitation present. Right lala tricular systolic pressure is normal at < 35 mmHg. The pulmonic valve was not well visualized. There is no pulmonic regurgitation present. The aortic root size is normal. IVC Not well visulized. There is no pericardial effusion. CONCLUSIONS -------- 1. This was a technically difficult study with suboptimal views. 2. Pt. Has Breast inplants 3. There is mild concentric left ventricular hypertrophy. 4. Overall left ventricular systolic function is normal with, an EF between 55 - 60 %. 5. 5.0mg of Lumason was utilized for enhancement of images 6. The aortic valve is trileaflet, and appears structurally normal. No aortic stenosis or regurgitati on. 7. There is trace mitral regurgitation. 8. Trace tricuspid regurgitation present. 9. There is no pericardial effusion. METAL CUT OFF SAW TENDER: Jennifer Costa RDCS
[2020-05-11] MEDS: metFORMIN 500 MG TAB PO SCH (13:24)
[2020-05-11] MEDS: BACLOFEN 10 MG TAB PO SCH ×2 (13:35→13:37)
[2020-05-11] MEDS: GABAPENTIN 100 MG CAP PO SCH (13:36)
[2020-05-11] MEDS: methocarbamoL 500 MG TAB PO SCH (13:36)
--- NOTE | 2020-05-11 23:43 | P.DS ---
Providers Date of admission: 05/10/20 14:28 Expected date of discharge: 05/11/20 Attending physician: José Ferreira Consults: 05/10/20 14:28 Consult Physician Urgent Consulting Provider: [facility] Consult Reason/Comments: chest pain Do you want consulting provider notified?: Yes Primary care physician: [facility] Course: Chief Complaint: Chest pressure History of presenting complaint: This is a [address] Taylor. Chronic stable medical conditions include asthma, diabetes, GERD, hypertension,(s) sleep apnea, optic neuritis, gastroparesis-recently had surgery for hoping the pylorus. Patient has a morphine pain pump that is operated by . Patient of month ago had lymph nodes pulmonary biopsy done at [facility].. pt has received first dose of Inflectra. Patient today developed a pressure across the chest left arm and presented to [facility]. Her EKG and troponin was negative. No dizziness nor lightheadedness. Patient is on a soft diet because of her gastric surgery. No fever no chills. No cough. Patient is as a telei appointment with the award machine operator tomorrow. Today-patient is agreed to a tele appointment from her room. With the award machine operator. Stress echocardiogram was negative. Patient will follow-up with her physicians at an different hospital. Consultation: Dr. Saavedra from cardiology Past medical history to include: Asthma, diabetes, GERD, hypertension, chronic pain syndrome, obstructive sleep apnea, multiple sclerosis, optic neuritis, gastroparesis-with outlet surgery, sarcoidosis, morphine pain pump Social history: . Does not smoke or drink alcohol. 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 Conjunctiva normal. HEENT: External appearance of nose and ears normal, oral cavity grossly normal. NECK: JVD not raised; masses not palpable. HEART: First and second heart sounds are normal; no edema. LUNGS: Respiratory rate normal; clear to auscultation. ABDOMEN: Soft, nontender, liver spleen not palpable, no masses palpable. PSYCH: [Alert and oriented x3; mood and affect slightly anxious INVESTIGATIONS, reviewed in the clinical context: White count 15.7 hemoglobin 13.5 potassium 4.4 creatinine 0.7 to LDL 145 Troponin I 2 negative here. Additional set was negative at [facility]. Assessment and plan: -Chest pain possibly muscular skeletal. -Leukocytosis likely from recent gastric surgery. No clinical evidence of infection. No fever. No respiratory urinary symptoms. -Sarcoidosis. Patient had lymph node biopsies done about 4 weeks ago at [facility]. Patient be started on Inflectra infusion. -Diabetes mellitus type 2 on oral hypoglycemic. Uncontrolled with hypoglycemia. Patient was nothing by mouth for the stress test. -Gastroparesis-patient is just had pylorus release surgery at [facility]. Soft diet -GERD -Hypertension -Obstructive sleep apnea -Hypothyroid -Multiple sclerosis -Optic neuritis -Chronic pain syndrome patient does have a morphine pain pump being followed by Dr. Dias Disposition: Home Patient Condition at Discharge: Stable Plan - Discharge Summary Discharge Rx Participant: No New Discharge Prescriptions: Continue Atorvastatin [Lipitor] 10 mg PO HS Albuterol Sulfate [Proair Hfa] 2 puff INHALATION RT-Q6H PRN PRN Reason: Shortness Of Breath Montelukast [Singulair] 10 mg PO DAILY #30 tab DULoxetine HCL [Cymbalta] 60 mg PO DAILY Scopolamine 1.5MG/72Hr Patch [TransDerm Scop] 1 patch TRANSDERM Q72H metFORMIN HCL [Glucophage] 500 mg PO BID #60 tab rOPINIRole HCL [Requip] 2 mg PO TID Levothyroxine Sodium [Synthroid] 112 mcg PO DAILY Baclofen 20 mg PO QID Cyanocobalamin (Vitamin B-12) [Vitamin B-12] 1,000 mcg PO DAILY Hydrochlorothiazide [hydroCHLOROthiazide] 12.5 mg PO DAILY #30 capsule Morphine Pain Pump 1 dose INTRATHECA CONTINUOUS Acetaminophen-Codeine 300-30mg [Tylenol w/codeine #3] 1 tab PO Q12H PRN PRN Reason: Breakthrough Pain Ondansetron Odt [Zofran ODT] 8 mg PO Q6H PRN PRN Reason: Nausea Ergocalciferol [Vitamin D2 (1250 Mcg = 01953 Iu)] 1,250 mcg PO WE Gabapentin [Neurontin] 100 mg PO TID methocarbamoL [Robaxin] 500 mg PO TID Pantoprazole Sodium [Protonix] 40 mg PO DAILY SUMAtriptan succinate [Sumatriptan Succinate] 12 mg SQ DAILY PRN PRN Reason: Migraine Headache Fremanezumab-Vfrm [Ajovy Autoinjector] 225 mg SQ Q30D Discharge Medication List Albuterol Sulfate [Proair Hfa] 2 puff INHALATION RT-Q6H PRN 09/26/15 [History] Atorvastatin [Lipitor] 10 mg PO HS 09/26/15 [History] Montelukast [Singulair] 10 mg PO DAILY #30 tab 06/23/16 [Rx] DULoxetine HCL [Cymbalta] 60 mg PO DAILY 01/10/17 [History] Scopolamine 1.5MG/72Hr Patch [TransDerm Scop] 1 patch TRANSDERM Q72H 07/07/17 [History] metFORMIN HCL [Glucophage] 500 mg PO BID #60 tab 02/10/18 [Rx] Levothyroxine Sodium [Synthroid] 112 mcg PO DAILY 12/05/18 [History] rOPINIRole HCL [Requip] 2 mg PO TID 12/05/18 [History] Baclofen 20 mg PO QID 04/29/19 [History] Cyanocobalamin (Vitamin B-12) [Vitamin B-12] 1,000 mcg PO DAILY 10/01/19 [History] Hydrochlorothiazide [hydroCHLOROthiazide] 12.5 mg PO DAILY #30 capsule 10/04/19 [Rx] Morphine Pain Pump 1 dose INTRATHECA CONTINUOUS 10/10/19 [History] Acetaminophen-Codeine 300-30mg [Tylenol w/codeine #3] 1 tab PO Q12H PRN 10/22/19 [History] Ondansetron Odt [Zofran ODT] 8 mg PO Q6H PRN 11/13/19 [History] Ergocalciferol [Vitamin D2 (1250 Mcg = 16594 Iu)] 1,250 mcg PO WE 05/10/20 [History] Fremanezumab-Vfrm [Ajovy Autoinjector] 225 mg SQ Q30D 05/10/20 [History] Gabapentin [Neurontin] 100 mg PO TID 05/10/20 [History] Pantoprazole Sodium [Protonix] 40 mg PO DAILY 05/10/20 [History] SUMAtriptan succinate [Sumatriptan Succinate] 12 mg SQ DAILY PRN 05/10/20 [History] methocarbamoL [Robaxin] 500 mg PO TID 05/10/20 [History] Follow up Appointment(s)/Referral(s): Kayla Saavedra MD [STAFF PHYSICIAN] - 2 Weeks Abdi Taylor MD [Primary Care Provider] - 1-2 days Patient Instructions/Handouts: Chest Pain (GEN) Activity/Diet/Wound Care/Special Instructions: soft diet
--- NOTE | 2020-05-12 10:16 | ECHOS ---
STRESS ECHOCARDIOGRAM LUMASON: N/A Vial INDICATIONS: Chest pain MEDICATIONS: BASELINE HEART RATE: 61 BASELINE BLOOD PRESSURE: 104/68 MAXIMUM HEART RATE: 145 MAXIMUM BLOOD PRESSURE: 107/55 85% MPHR: 146 100% MPHR: 172 METS: MAXIMUM STAGE REACHED: 146 TOTAL EXERCISE TIME: 172 CLINICAL INFORMATION: Baseline rhythm is sinus mechanism, rate of 61, normal axis and intervals, minor nonspecific ST-T wave changes. Baseline blood pressure 104/68 mmHg. Patient received infusion of dobutamine per protocol, peak rate 145 beats per minute which is equal to 84% maximum predicted heart rate. Peak blood pressure 107/55 mmHg. Electrocardiograph monitoring revealed no evidence of diagnostic ischemic ST deviation. Occasional PVCs were noted. Baseline echocardiogram revealed normal wall motion. At peak infusion, there was normal wall motion augmentation with no hypokinesis or dyskinesis. CONCLUSION: 1. Nondiagnostic electrocardiographic response to dobutamine infusion secondary to baseline EKG abnormality. 2. Normal stress echocardiogram with no evidence of stress-induced ischemia. MMODL / IJN: [id number] /
[2020-05-13] MEDS ORDERED: ERGOCALCIFEROL 1,250 MCG (50,000 IU) CAPSULE PO SCH (09:00)
== END 2020-05-11 16:55 ==
LOC: EC 13:25 → 6NMEDSUR 14:28
PROVIDERS: ADMIT Hospitalist; ATTEND Hospitalist
DX: R07.89 Other chest pain (principal); M25.512 Pain in left shoulder; I10 Essential (primary) hypertension; D86.9 Sarcoidosis, unspecified; R06.09 Other forms of dyspnea; J45.909 Unspecified asthma, uncomplicated; G35 Multiple sclerosis; M54.9 Dorsalgia, unspecified; H46.9 Unspecified optic neuritis; K21.9 Gastro-esophageal reflux disease without esophagitis; E11.649 Type 2 diabetes mellitus with hypoglycemia without coma; E11.43 Type 2 diabetes mellitus with diabetic autonomic (poly)neuropathy; K31.84 Gastroparesis; G47.33 Obstructive sleep apnea (adult) (pediatric); G89.4 Chronic pain syndrome; E03.9 Hypothyroidism, unspecified; G43.909 Migraine, unspecified, not intractable, without status migrainosus; Z16.24 Resistance to multiple antibiotics; Z90.710 Acquired absence of both cervix and uterus; Z98.82 Breast implant status; Z79.899 Other long term (current) drug therapy; Z79.4 Long term (current) use of insulin; Z79.890 Hormone replacement therapy; Z79.891 Long term (current) use of opiate analgesic; Z96.9 Presence of functional implant, unspecified; Z91.040 Latex allergy status; Z88.5 Allergy status to narcotic agent; Z88.8 Allergy status to other drugs, medicaments and biological substances; Z91.048 Other nonmedicinal substance allergy status
CPT/HCPCS: 96376 ×2; 96375 ×2; 96374; 99285; 94640; 93306; 93351; 80061; 80048; 83735; 84484; 85025; G0378 ×2; J1250; J1200 ×2; J1885; Q9950

== ENCOUNTER 2020-05-23 08:14 | Inpatient (IN) | payer BC, MEDICARE ==
[2020-05-23] MEDS ORDERED: KETOROLAC 15 MG/ML 1 ML VIAL IVP STA (08:34)
[2020-05-23] MEDS ORDERED: ONDANSETRON 4 MG/2 ML VIAL IVP STA (08:34)
[2020-05-23] MEDS ORDERED: HYDROmorphone 0.5 MG/0.5 ML SYRINGE IVP STA (08:34)
[2020-05-23] MEDS ORDERED: SODIUM CHLORIDE 0.9% 500 ML 500 ML IV STA (08:34)
--- NOTE | 2020-05-23 08:47 | ED ---
Abdominal Pain HPI - General Chief Complaint: Abdominal Pain Stated Complaint: kidney stone Time Seen by Provider: 05/23/20 08:25 Source: patient Mode of arrival: ambulatory Limitations: no limitations - History of Present Illness Initial Comments: 49-year-old female history of multiple sclerosis and sarcoidosis that affects the lungs present to the ER today for chief complaint of kidney stone. Patient states that she was diagnosed on the , yesterday, with a kidney stone at [facility]. Patient states she had a horrible stabbing pain in the right flank that radiated towards the right groin and radiated into the vagina. She states it is stabbing pain. She states it comes in waves. She states she has occasional nausea no vomiting. Patient denies any fevers chills or malaise. There is a chest pain shortness of breath. Patient states she could not tolerate the pain any longer and was up all night. Patient has no additional complaints. Appears nontoxic on arrival. Patient states she is highly allergic to any type of tega-derm, or adhesives, she states she will need benadryl 50mg IV q6h while any tape is on her skin. - Related Data Home Medications Medication Instructions Recorded Confirmed Albuterol Sulfate [Proair Hfa] 2 puff INHALATION RT-Q6H PRN 09/26/15 05/23/20 Atorvastatin [Lipitor] 10 mg PO HS 09/26/15 05/23/20 DULoxetine HCL [Cymbalta] 60 mg PO DAILY 01/10/17 05/23/20 Scopolamine 1.5MG/72Hr Patch 1 patch TRANSDERM Q72H 07/07/17 05/23/20 [TransDerm Scop] Levothyroxine Sodium [Synthroid] 112 mcg PO DAILY 12/05/18 05/23/20 rOPINIRole HCL [Requip] 2 mg PO TID 12/05/18 05/23/20 Baclofen 20 mg PO QID 04/29/19 05/23/20 Cyanocobalamin (Vitamin B-12) 1,000 mcg PO DAILY 10/01/19 05/23/20 [Vitamin B-12] Morphine Pain Pump 1 dose INTRATHECA CONTINUOUS 10/10/19 05/23/20 Acetaminophen-Codeine 300-30mg 1 tab PO Q12H PRN 10/22/19 05/23/20 [Tylenol w/codeine #3] Ondansetron Odt [Zofran ODT] 8 mg PO Q6H PRN 11/13/19 05/23/20 Ergocalciferol [Vitamin D2 (1250 1,250 mcg PO WE 05/10/20 05/23/20 Mcg = 90789 Iu)] Fremanezumab-Vfrm [Ajovy 225 mg SQ Q30D 05/10/20 05/23/20 Autoinjector] Gabapentin [Neurontin] 100 mg PO TID 05/10/20 05/23/20 Pantoprazole Sodium [Protonix] 40 mg PO DAILY 05/10/20 05/23/20 SUMAtriptan succinate [Sumatriptan 12 mg SQ DAILY PRN 05/10/20 05/23/20 Succinate] methocarbamoL [Robaxin] 500 mg PO TID 05/10/20 05/23/20 Previous Rx's Medication Instructions Recorded Montelukast [Singulair] 10 mg PO DAILY #30 tab 06/23/16 metFORMIN HCL [Glucophage] 500 mg PO BID #60 tab 02/10/18 Hydrochlorothiazide 12.5 mg PO DAILY #30 capsule 10/04/19 [hydroCHLOROthiazide] Allergies Allergy/AdvReac Type Severity Reaction Status Date / Time adhesive Allergy Severe Rash/Hives Verified 05/23/20 10:03 adhesive tape Allergy Severe Rash/Hives Verified 05/23/20 10:03 fentanyl Allergy Severe Rash/Hives Verified 05/23/20 10:03 from patch only latex Allergy Severe Rash/Hives Verified 05/23/20 10:03 metoclopramide [From Reglan] Allergy dystonia Verified 05/23/20 10:03 from IV Reglan prochlorperazine Allergy Unknown Verified 05/23/20 10:03 [From Compazine] Review of Systems ROS Statement: Those systems with pertinent positive or pertinent negative responses have been documented in the HPI. ROS Other: All systems not noted in ROS Statement are negative. Past Medical History Past Medical History: Asthma, Diabetes Mellitus, GERD/Reflux, Hypertension, Musculoskeletal Disorder, Neurologic Disorder, Sleep Apnea/CPAP/BIPAP, Thyroid Disorder Additional Past Medical History / Comment(s): MS, back pain, DDD, optic neuritis, Gastroparesis., C-Diff (June 2018) leukopenia (sores in mouth) migraines, sleep apnea due to M.S. (no machine), sarcoidosis, cyst in stomach. , hopitalized 10/04/19 after lumbar puncture because heart rate dropped, hospitalized 10/10/19 for headache (post l.p.), states allergy to all adhesive and needs benadryl IV 50mg prior to using tape or tegaderm etc. History of Any Multi-Drug Resistant Organisms: C-DIFF Date of last positivie culture/infection: 2018 MDRO Source:: stool Past Surgical History: Bladder Surgery, Breast Surgery, Hernia Repair, Hysterectomy, Orthopedic Surgery, Tubal Ligation Additional Past Surgical History / Comment(s): rhinoplasty, bladder suspension, breast sx, morphine pump , RT KNEE SCOPE, TUMMY TUCK, Spinal cord stimulator inserted and removed. port august 2019, gastroparesis botox and EGD 11/06/2019, breast implants, gastric surgery 05/05/20 Past Anesthesia/Blood Transfusion Reactions: Motion Sickness, Postoperative Nausea & Vomiting (PONV) Past Psychological History: No Psychological Hx Reported Smoking Status: Never smoker Past Alcohol Use History: Occasional Past Drug Use History: None Reported - Past Family History Father History Unknown: Yes Family Medical History: No Reported History Additional Family Medical History / Comment(s): . Mother History Unknown: Yes Family Medical History: No Reported History Additional Family Medical History / Comment(s): NO FAMILY HISTORY General Exam - General Exam Comments Initial Comments: General: The patient is awake and alert, writhing in pain Eye: Pupils are equal, round and reactive to light, extra-ocular movements are intact. No nystagmus. There is normal conjunctiva bilaterally. No signs of icterus. Ears, nose, mouth and throat: There are moist mucous membranes and no oral lesions. Neck: The neck is supple, there is no tenderness or JVD. Cardiovascular: There is a regular rate and rhythm. No murmur, rub or gallop is appreciated. Respiratory: Lungs are clear to auscultation, respirations are non-labored, breath sounds are equal. No wheezes, stridor, rales, or rhonchi. Gastrointestinal: Soft, non-distended, non-tender abdomen without masses or organomegaly noted. There is no rebound or guarding present. Musculoskeletal: Normal ROM, no tenderness. Strength 5/5. Sensation intact. Radial pulses equal bilaterally 2+. Neurological: A&O x 3. CN II-XII intact grossly, There are no obvious motor or sensory deficits. Coordination appears grossly intact. Speech is normal. Skin: Skin is warm and dry and no rashes or lesions are noted. Psychiatric: Cooperative, appropriate mood & affect, normal judgment. Limitations: no limitations Course Vital Signs 05/23/20 08:16 Temperature 98.6 F Pulse Rate 86 Respiratory 16 Rate Blood Pressure 143/86 O2 Sat by Pulse 98 Oximetry Medical Decision Making - Medical Decision Making Patient presented for right flank pain diagnosed with 5 mm ureterovesicular junction stone yesterday at [facility]. Stone appears unchanged in comparison with previous KUB and today's KUB which was sent over from outside facility. After multiple doses of analgesics patient continues to be writhing in pain she is afebrile she does have mild leukocytosis which is felt to be reactive with a contaminated urine sample. Only 6 white blood cells. No nitrates. I consulted on-call urologist Dr. Dorantes who is agreeable to admission, recommending rocephin--and NPO after midnight. Patient agreeable to admission. Dr Stuart agreeable to care plan. - Lab Data Result diagrams: 05/23/20 09:03 05/23/20 09:03 Lab Results 05/23/20 05/23/20 05/23/20 Range/Units 09:03 09:03 09:03 WBC 12.0 H (3.8-10.6) k/uL RBC 4.42 (3.80-5.40) m/uL Hgb 13.1 (11.4-16.0) gm/dL Hct 39.4 (34.0-46.0) % MCV 89.1 (80.0-100.0) fL MCH 29.7 (25.0-35.0) pg MCHC 33.3 (31.0-37.0) g/dL RDW 13.4 (11.5-15.5) % Plt Count 332 (150-450) k/uL MPV 7.1 Neutrophils % 72 % Lymphocytes % 20 % Monocytes % 4 % Eosinophils % 2 % Basophils % 1 % Neutrophils # 8.7 H (1.3-7.7) k/uL Lymphocytes # 2.4 (1.0-4.8) k/uL Monocytes # 0.5 (0-1.0) k/uL Eosinophils # 0.3 (0-0.7) k/uL Basophils # 0.1 (0-0.2) k/uL Sodium 138 (137-145) mmol/L Potassium 4.5 (3.5-5.1) mmol/L Chloride 105 (98-107) mmol/L Carbon Dioxide 27 (22-30) mmol/L Anion Gap 6 mmol/L BUN 16 (7-17) mg/dL Creatinine 0.77 (0.52-1.04) mg/dL Est GFR (CKD-EPI)AfAm >90 (>60 ml/min/1.73 sqM) Est GFR (CKD-EPI)NonAf >90 (>60 ml/min/1.73 sqM) Glucose 135 H (74-99) mg/dL Calcium 9.0 (8.4-10.2) mg/dL Total Bilirubin 0.5 (0.2-1.3) mg/dL AST 20 (14-36) U/L ALT 13 (4-34) U/L Alkaline Phosphatase 64 (38-126) U/L Total Protein 6.4 (6.3-8.2) g/dL Albumin 3.8 (3.5-5.0) g/dL Lipase 40 (23-300) U/L Urine Color Yellow Urine Appearance Cloudy H (Clear) Urine pH 5.5 (5.0-8.0) Ur Specific [place] 1.023 (1.001-1.035) Urine Protein Trace H (Negative) Urine Glucose (UA) Negative (Negative) Urine Ketones Negative (Negative) Urine Blood Moderate H (Negative) Urine Nitrite Negative (Negative) Urine Bilirubin Negative (Negative) Urine Urobilinogen <2.0 (<2.0) mg/dL Ur Leukocyte Esterase Trace H (Negative) Urine RBC 33 H (0-5) /hpf Urine WBC 6 H (0-5) /hpf Ur Squamous Epith Cells 22 H (0-4) /hpf Urine Bacteria Rare H (None) /hpf Urine Mucus Few H (None) /hpf Disposition Clinical Impression: Intractable pain, Kidney stone, Urolithiasis Disposition: ADMITTED IP TO THIS [facility] Condition: Stable Is patient prescribed a controlled substance at d/c from ED?: No Referrals: Abdi Taylor MD [Primary Care Provider] - 1-2 days Time of Disposition: 10:08 Decision to Admit Reason: Admit from EC Decision Date: 05/23/20 Decision Time: 10:08
[2020-05-23] MEDS: diphenhydrAMINE 50 MG/ML 1 ML VIAL IVP SCH ×3 (09:07→20:01)
[2020-05-23 09:21] LABS: Basophils # (A) 0.1 k/uL (0-0.2); Basophils % (A) 1 %; Eosinophils # (A) 0.3 k/uL (0-0.7); Eosinophils % (A) 2 %; HCT 39.4 % (34.0-46.0); HGB 13.1 gm/dL (11.4-16.0); Lymphocytes # (A) 2.4 k/uL (1.0-4.8); Lymphocytes % (A) 20 %; MCH 29.7 pg (25.0-35.0); MCHC 33.3 g/dL (31.0-37.0); MCV 89.1 fL (80.0-100.0); Mean Platelet Volume 7.1; Monocytes # (A) 0.5 k/uL (0-1.0); Monocytes % (A) 4 %; Neutrophils # (A) 8.7 k/uL (1.3-7.7); Neutrophils % (A) 72 %; Platelet Count 332 k/uL (150-450); RBC 4.42 m/uL (3.80-5.40); RDW 13.4 % (11.5-15.5)
[2020-05-23 09:23] LABS: Appearance,Urine Cloudy (Clear); Bacteria,Urine Rare /hpf; Bilirubin,Urine Negative (Negative); Blood,Urine Moderate (Negative); Color,Urine Yellow; Glucose,Urine (UA) Negative (Negative); Ketones,Urine Negative (Negative); Leukocyte Esterase,Urine Trace (Negative); Mucus,Urine Few /hpf; Nitrite,Urine Negative (Negative); PH, Urine 5.5 (5.0-8.0); Protein,Urine Trace (Negative); RBC,Urine 33 /hpf (0-5); Specific Gravity,Urine 1.023 (1.001-1.035); Squamous Epithelial Cell,Urine 22 /hpf (0-4); Urobilinogen,Urine <2.0 mg/dL (<2.0); WBC,Urine 6 /hpf (0-5)
[2020-05-23 09:33] LABS: ALT 13 U/L (4-34); AST 20 U/L (14-36); African American GFR (CKD) >90 (>60 ml/min/1.73 sqM); Albumin 3.8 g/dL (3.5-5.0); Alkaline Phosphatase 64 U/L (38-126); Anion Gap 6 mmol/L; Blood Urea Nitrogen 16 mg/dL (7-17); Carbon Dioxide 27 mmol/L (22-30); Chloride 105 mmol/L (98-107); Glucose 135 mg/dL (74-99); Lipase 40 U/L (23-300); Non-African American GFR(CKD) >90 (>60 ml/min/1.73 sqM); Potassium 4.5 mmol/L (3.5-5.1); Sodium 138 mmol/L (137-145); Total Bilirubin 0.5 mg/dL (0.2-1.3); Total Protein 6.4 g/dL (6.3-8.2)
[2020-05-23] MEDS ORDERED: HYDROmorphone 1 MG/ML 1 ML SYRINGE IVP STA (09:40)
--- NOTE | 2020-05-23 09:50 | XR ---
EXAMINATION TYPE: XR KUB portable DATE OF EXAM: 05/23/2020 COMPARISON: 11/13/2019 HISTORY: Pain TECHNIQUE: Single supine KUB image of the abdomen is obtained FINDINGS: Small bowel demonstrates no evidence for dilatation or air fluid levels. Gas and fecal material is seen in non-distended colon. No convincing evidence for pneumoperitoneum. No unusual calcifications. The lung bases are clear. The osseous structures are intact. IMPRESSION: 1. Overall nonobstructive bowel gas pattern.
[2020-05-23] MEDS ORDERED: NALOXONE 0.4 MG/ML 1 ML VIAL IV PRN (10:04)
[2020-05-23] MEDS: SODIUM CHLORIDE 0.9% 1,000 ML IV SCH ×2 (10:30→20:02)
[2020-05-23] MEDS: ONDANSETRON 4 MG/2 ML VIAL IVP PRN (12:31)
[2020-05-23] MEDS ORDERED: ALBUTEROL NEBULIZED 2.5 MG/3 ML INHALATION PRN (13:48)
[2020-05-23] MEDS ORDERED: AUTO INJCT SQ SCH (14:00)
[2020-05-23] MEDS ORDERED: FREMANEZUMAB VFRM 225 MG/1.5 ML SQ SCH (14:00)
[2020-05-23] MEDS: BACLOFEN 10 MG TAB PO SCH ×3 (14:05→22:07)
[2020-05-23] MEDS: DULoxetine HCL 60 MG CAPSULE.DR PO SCH (14:06)
[2020-05-23] MEDS: CYANOCOBALAMIN 500 MCG TAB PO SCH (14:06)
[2020-05-23] MEDS: GABAPENTIN 100 MG CAP PO SCH ×2 (14:06→22:07)
[2020-05-23] MEDS: hydroCHLOROthiazide 12.5 MG CAP PO SCH (14:06)
[2020-05-23] MEDS: HYDROmorphone 1 MG/ML 1 ML SYRINGE IVP PRN ×4 (14:07→23:15)
[2020-05-23] MEDS ORDERED: KETOROLAC 15 MG/ML 1 ML VIAL IVP SCH (16:00)
[2020-05-23] MEDS: KETOROLAC 15 MG/ML 1 ML VIAL IVP SCH (17:16)
--- NOTE | 2020-05-23 19:57 | P.GSHP ---
History of Present Illness H&P Date: 05/23/20 Chief Complaint: right flank pain Ms Braun is a 49-year-old female with multiple comorbidities. She presents to the ED with right flank pain. Patient states that she was diagnosed on the , yesterday, with a kidney stone at [facility]. It was 5 mm stone at the UVJ, She is been having intractable pain, and presented today to the ED with the flank pain. She denies any previous hx of kidney stones. She indicates her pain is radiating to the groin, she also complains of gross hematuria. Denies any fever/chills, or dysuria. - Constitutional Constitutional: Denies chills, Denies fever - Cardiovascular Cardiovascular: Denies chest pain, Denies shortness of breath - Respiratory Respiratory: Denies cough, Denies 7 - Gastrointestinal Gastrointestinal: Reports abdominal pain, Reports nausea, Denies diarrhea, Denies vomiting - Genitourinary (Female) Genitourinary: Reports flank pain, Reports hematuria, Denies dysuria - Musculoskeletal Musculoskeletal: Denies myalgias - Integumentary Integumentary: Denies pruritus, Denies rash - Neurological Neurological: Denies numbness, Denies weakness Past Medical History Past Medical History: Asthma, Diabetes Mellitus, GERD/Reflux, Hypertension, Musculoskeletal Disorder, Neurologic Disorder, Sleep Apnea/CPAP/BIPAP, Thyroid Disorder Additional Past Medical History / Comment(s): MS, back pain, DDD, optic neuritis, Gastroparesis., C-Diff (June 2018) leukopenia (sores in mouth) migraines, sleep apnea due to M.S. (no machine), sarcoidosis, cyst in stomach. , hopitalized 10/04/19 after lumbar puncture because heart rate dropped, hospital ized 10/10/19 for headache (post l.p.), states allergy to all adhesive and needs benadryl IV 50mg prior to using tape or tegaderm etc. History of Any Multi-Drug Resistant Organisms: C-DIFF Date of last positivie culture/infection: 2018 MDRO Source:: stool Past Surgical History: Bladder Surgery, Breast Surgery, Hernia Repair, Hysterectomy, Orthopedic Surgery, Tubal Ligation Additional Past Surgical History / Comment(s): rhinoplasty, bladder suspension, breast sx, morphine pump , RT KNEE SCOPE, TUMMY TUCK, Spinal cord stimulator inserted and removed. port august 2019, gastroparesis botox and EGD 11/06/2019, breast implants, gastric surgery 05/05/20 Past Anesthesia/Blood Transfusion Reactions: Motion Sickness, Postoperative Nausea & Vomiting (PONV) Past Psychological History: No Psychological Hx Reported Additional Psychological History / Comment(s): . Smoking Status: Never smoker Past Alcohol Use History: Occasional Past Drug Use History: None Reported - Past Family History Father History Unknown: Yes Family Medical History: No Reported History Additional Family Medical History / Comment(s): . Mother History Unknown: Yes Family Medical History: No Reported History Additional Family Medical History / Comment(s): NO FAMILY HISTORY Medications and Allergies Home Medications Medication Instructions Recorded Confirmed Type Albuterol Sulfate [Proair Hfa] 2 puff INHALATION RT-Q6H PRN 09/26/15 05/23/20 History Atorvastatin [Lipitor] 10 mg PO HS 09/26/15 05/10/20 History Montelukast [Singulair] 10 mg PO DAILY #30 tab 06/23/16 05/10/20 Rx DULoxetine HCL [Cymbalta] 60 mg PO DAILY 01/10/17 05/23/20 History Scopolamine 1.5MG/72Hr Patch 1 patch TRANSDERM Q72H 07/07/17 05/23/20 History [TransDerm Scop] metFORMIN HCL [Glucophage] 500 mg PO BID #60 tab 02/10/18 05/23/20 Rx Levothyroxine Sodium [Synthroid] 112 mcg PO DAILY 12/05/18 05/10/20 History rOPINIRole HCL [Requip] 2 mg PO TID 12/05/18 05/23/20 History Baclofen 20 mg PO QID 04/29/19 05/23/20 History Cyanocobalamin (Vitamin B-12) 1,000 mcg PO DAILY 10/01/19 05/23/20 History [Vitamin B-12] Hydrochlorothiazide 12.5 mg PO DAILY #30 capsule 10/04/19 05/23/20 Rx [hydroCHLOROthiazide] Morphine Pain Pump 1 dose INTRATHECA CONTINUOUS 10/10/19 05/23/20 History Acetaminophen-Codeine 300-30mg 1 tab PO Q12H PRN 10/22/19 05/23/20 History [Tylenol w/codeine #3] Ondansetron Odt [Zofran ODT] 8 mg PO Q6H PRN 11/13/19 05/23/20 History Ergocalciferol [Vitamin D2 (1250 1,250 mcg PO WE 05/10/20 05/23/20 History Mcg = 32019 Iu)] Fremanezumab-Vfrm [Ajovy 225 mg SQ Q30D 05/10/20 05/23/20 History Autoinjector] Gabapentin [Neurontin] 100 mg PO TID 05/10/20 05/23/20 History Pantoprazole Sodium [Protonix] 40 mg PO DAILY 05/10/20 05/23/20 History SUMAtriptan succinate [Sumatriptan 12 mg SQ DAILY PRN 05/10/20 05/23/20 History Succinate] methocarbamoL [Robaxin] 500 mg PO TID 05/10/20 05/23/20 History HYDROcodone/APAP 7.5-325MG [Rogers 1 tab PO DAILY PRN 05/23/20 05/23/20 History 7.5-325] Infliximab-Dyyb [Inflectra] 1 dose IV [id number] 05/23/20 05/23/20 History Allergies Allergy/AdvReac Type Severity Reaction Status Date / Time adhesive Allergy Severe Rash/Hives Verified 05/23/20 10:03 adhesive tape Allergy Severe Rash/Hives Verified 05/23/20 10:03 fentanyl Allergy Severe Rash/Hives Verified 05/23/20 10:03 from patch only latex Allergy Severe Rash/Hives Verified 05/23/20 10:03 metoclopramide [From Reglan] Allergy dystonia Verified 05/23/20 10:03 from IV Reglan prochlorperazine Allergy Unknown Verified 05/23/20 10:03 [From Compazine] Surgical - Exam Vital Signs Temp Pulse Resp BP Pulse Ox 98.6 F 86 16 143/86 98 05/23/20 08:16 05/23/20 08:16 05/23/20 08:16 05/23/20 08:16 05/23/20 08:16 - General well developed, well nourished, moderate distress, severe pain - Eyes PERRL, normal ocular movement - ENT normal nares, normal mucosa, no hearing loss - Neck trachea midline, no venous distension - Respiratory normal expansion, normal respiratory effort - Psychiatric oriented to time, oriented to person, oriented to place, speech is normal Results - Labs 05/23/20 09:03 05/23/20 09:03 Abnormal Lab Results - Last 24 Hours (Table) 05/23/20 05/23/20 05/23/20 Range/Units 09:03 09:03 09:03 WBC 12.0 H (3.8-10.6) k/uL Neutrophils # 8.7 H (1.3-7.7) k/uL Glucose 135 H (74-99) mg/dL Urine Appearance Cloudy H (Clear) Urine Protein Trace H (Negative) Urine Blood Moderate H (Negative) Ur Leukocyte Esterase Trace H (Negative) Urine RBC 33 H (0-5) /hpf Urine WBC 6 H (0-5) /hpf Ur Squamous Epith Cells 22 H (0-4) /hpf Urine Bacteria Rare H (None) /hpf Urine Mucus Few H (None) /hpf Diabetes panel 05/23/20 Range/Units 09:03 Sodium 138 (137-145) mmol/L Potassium 4.5 (3.5-5.1) mmol/L Chloride 105 (98-107) mmol/L Carbon Dioxide 27 (22-30) mmol/L BUN 16 (7-17) mg/dL Creatinine 0.77 (0.52-1.04) mg/dL Glucose 135 H (74-99) mg/dL Calcium 9.0 (8.4-10.2) mg/dL AST 20 (14-36) U/L ALT 13 (4-34) U/L Alkaline Phosphatase 64 (38-126) U/L Total Protein 6.4 (6.3-8.2) g/dL Albumin 3.8 (3.5-5.0) g/dL Calcium panel 05/23/20 Range/Units 09:03 Calcium 9.0 (8.4-10.2) mg/dL Albumin 3.8 (3.5-5.0) g/dL Pituitary panel 05/23/20 Range/Units 09:03 Sodium 138 (137-145) mmol/L Potassium 4.5 (3.5-5.1) mmol/L Chloride 105 (98-107) mmol/L Carbon Dioxide 27 (22-30) mmol/L BUN 16 (7-17) mg/dL Creatinine 0.77 (0.52-1.04) mg/dL Glucose 135 H (74-99) mg/dL Calcium 9.0 (8.4-10.2) mg/dL Adrenal panel 05/23/20 Range/Units 09:03 Sodium 138 (137-145) mmol/L Potassium 4.5 (3.5-5.1) mmol/L Chloride 105 (98-107) mmol/L Carbon Dioxide 27 (22-30) mmol/L BUN 16 (7-17) mg/dL Creatinine 0.77 (0.52-1.04) mg/dL Glucose 135 H (74-99) mg/dL Calcium 9.0 (8.4-10.2) mg/dL Total Bilirubin 0.5 (0.2-1.3) mg/dL AST 20 (14-36) U/L ALT 13 (4-34) U/L Alkaline Phosphatase 64 (38-126) U/L Total Protein 6.4 (6.3-8.2) g/dL Albumin 3.8 (3.5-5.0) g/dL Assessment and Plan Assessment: 49 yo female with 5 mm right UVJ stone, having intractable pain. No previous hx of stone. UA showed only 6 WBC, and negative Nitrite. WBC is 12, VSS. Discussed with her if her urine dosen't appear infected, will proceed with right sided ureteroscopy with holmium laser and stent. Discussed risk of bleeding, infection and injury to ureter. -NPO past MN -Continue ceftrixone -OR tomorrow for right sided ureteroscopy with holmium laser and stent placement
[2020-05-23 20:01] LABS: Glucose,Whole Blood 129 mg/dL (75-99)
[2020-05-23] MEDS: ATORVASTATIN 10 MG TAB PO SCH (20:01)
[2020-05-23] MEDS: metFORMIN 500 MG TAB PO SCH (20:11)
[2020-05-23] MEDS: methocarbamoL 500 MG TAB PO SCH (22:07)
[2020-05-24] MEDS: KETOROLAC 15 MG/ML 1 ML VIAL IVP SCH ×4 (00:06→17:28)
[2020-05-24] MEDS: ONDANSETRON 4 MG/2 ML VIAL IVP PRN (00:11)
[2020-05-24] MEDS: diphenhydrAMINE 50 MG/ML 1 ML VIAL IVP SCH ×4 (03:27→21:25)
[2020-05-24] MEDS: HYDROmorphone 1 MG/ML 1 ML SYRINGE IVP PRN (03:27)
[2020-05-24] MEDS: LEVOTHYROXINE 112 MCG TAB PO SCH (05:24)
[2020-05-24] MEDS: SODIUM CHLORIDE 0.9% 1,000 ML IV SCH ×2 (06:07→17:28)
[2020-05-24 07:10] LABS: Glucose,Whole Blood 114 mg/dL (75-99)
[2020-05-24] MEDS ORDERED: fentaNYL (PF) 50 MCG/ML 2 ML AMP ONE (08:02)
[2020-05-24] MEDS ORDERED: MIDAZOLAM 2 MG/2 ML VIAL ONE (08:02)
[2020-05-24] MEDS ORDERED: ePHEDrine SULFATE/0.9% NACL/PF 50 MG/5 ML SYRINGE IV ONE (08:02)
[2020-05-24] MEDS ORDERED: PROPOFOL 10 MG/ML 20 ML VIAL IV ONE (08:02)
[2020-05-24] MEDS ORDERED: IV FLUID CONTINUATION 1,000 ML IV ONE (08:08)
[2020-05-24] MEDS ORDERED: SODIUM CHLORIDE 0.9% IV ONE ×2 (08:28)
[2020-05-24] MEDS ORDERED: GENTAMICIN IV ONE ×2 (08:28)
[2020-05-24] MEDS ORDERED: IOPAMIDOL-300 50ML BTL MISCELLANE ONE (08:38)
--- NOTE | 2020-05-24 08:53 | P.PN ---
Subjective Progress Note Date: 05/24/20 No acute overnight event, still having pain this am Objective - Vital Signs Vital signs: Vital Signs Temp 98.0 F 05/24/20 07:00 Pulse 74 05/24/20 07:00 Resp 18 05/24/20 07:00 BP 120/76 05/24/20 07:00 Pulse Ox 98 05/24/20 07:00 Intake & Output 05/23/20 05/24/20 05/24/20 18:59 06:59 18:59 Weight 115.5 kg Other: # Voids 1 4 # Bowel Movements 3 - Constitutional General appearance: Present: mild distress, morbidly obese - Psychiatric Psychiatric: Present: A&O x's 3 - Labs CBC & Chem 7: 05/23/20 09:03 05/23/20 09:03 Labs: Abnormal Lab Results - Last 24 Hours (Table) 05/23/20 05/23/20 05/23/20 Range/Units 09:03 09:03 09:03 WBC 12.0 H (3.8-10.6) k/uL Neutrophils # 8.7 H (1.3-7.7) k/uL Glucose 135 H (74-99) mg/dL POC Glucose (mg/dL) (75-99) mg/dL Urine Appearance Cloudy H (Clear) Urine Protein Trace H (Negative) Urine Blood Moderate H (Negative) Ur Leukocyte Esterase Trace H (Negative) Urine RBC 33 H (0-5) /hpf Urine WBC 6 H (0-5) /hpf Ur Squamous Epith Cells 22 H (0-4) /hpf Urine Bacteria Rare H (None) /hpf Urine Mucus Few H (None) /hpf 05/23/20 05/24/20 Range/Units 20:00 07:09 WBC (3.8-10.6) k/uL Neutrophils # (1.3-7.7) k/uL Glucose (74-99) mg/dL POC Glucose (mg/dL) 129 H 114 H (75-99) mg/dL Urine Appearance (Clear) Urine Protein (Negative) Urine Blood (Negative) Ur Leukocyte Esterase (Negative) Urine RBC (0-5) /hpf Urine WBC (0-5) /hpf Ur Squamous Epith Cells (0-4) /hpf Urine Bacteria (None) /hpf Urine Mucus (None) /hpf Assessment and Plan Assessment: 49 yo female with 5 mm right UVJ stone, having intractable pain. No previous hx of stone. UA showed only 6 WBC, and negative Nitrite. WBC is 12, VSS. Discussed with her if her urine dosen't appear infected, will proceed with right sided ureteroscopy with holmium laser and stent. Discussed risk of bleeding, infection and injury to ureter. -OR today for right sided ureteroscopy with holmium laser and stent placement
--- NOTE | 2020-05-24 08:59 | P.OP ---
Date of Procedure: 05/24/20 Preoperative Diagnosis: Right ureteral calculi Postoperative Diagnosis: Same Procedure(s) Performed: Cystoscopy, right ureteroscopy, retrograde pyelogram holmium laser lithotripsy, stone basketing and stent placement Implants: 6-Burmese by 26 cm stent Anesthesia: NEDRAA Surgeon: Fabian Dorantes Estimated Blood Loss (ml): 1 Pathology: other (right ureteral calculi) Condition: stable Disposition: PACU Indications for Procedure: Ms Braun is 49 yo female with 5 mm right UVJ stone, having intractable pain. No previous hx of stone. UA showed only 6 WBC, and negative Nitrite. WBC is 12, VSS. Discussed with her if her urine dosen't appear infected, will proceed with right sided ureteroscopy with holmium laser and stent. Discussed risk of bleeding, infection and injury to ureter. Operative Findings: Stone in the distal ureter, impacted at the right UVJ Description of Procedure: Patient was brought to the operating room, general anesthesia was induced. She was prepped and draped in sterile fashion a placemed in dorsal lithotomy position. Cystoscopy fitted with 21-Burmese sheath was inserted per urethra, cystoscopy was performed which showed no abnormality within the bladder, there was evidence of cystitis. The cystoscope was withdrawn and a semirigid ureteroscope was inserted per urethra, it was advanced up the right ureteral orifice, right at the UVJ the stone was completely impacted, I attempted to pass a wire past the stone but was completely impacted. At this time using the holmium laser the stone was fragmented into small fragments, the fragments were removed and sent to pathology, once the stone was removed I can see the opening to the lumen. A sensor wire was advanced through the impaction site and up into the renal pelvis. Next the ureteroscope was withdrawn and an open-ended catheter was advanced over the wire. Retrograde pyelogram was performed which which showed moderate hydronephrosis but no filling defect within the kidney, at this time the wire was readvanced through the catheter the catheter was removed the wire in place. Next the semirigid ureteroscope was advanced up the urethra and into the right ureteral orifice, I was able to navigate over the wire the ureteroscope past the area of impaction, next the ureteroscope was advanced all the way up to the proximal ureter which showed no evidence of additional stones. Pullback ureteroscopy was performed which showed no stone fragments or injury to the ureter. Of note the stone impaction site had significant ureteral edema. Next a ureteral stent was passed over the wire, the proximal curl was visu alized on fluoroscopy and the distal curl was visualized using the cystoscope. The bladder was emptied and the case. The patient tolerated the procedure well was taken to PACU in stable condition
[2020-05-24] MEDS ORDERED: HYDROmorphone 0.5 MG/0.5 ML SYRINGE IVP ONE ×2 (09:15→09:20)
[2020-05-24 09:28] LABS: Glucose,Whole Blood 94 mg/dL (75-99)
[2020-05-24] MEDS: CYANOCOBALAMIN 500 MCG TAB PO SCH (10:17)
[2020-05-24] MEDS: BACLOFEN 10 MG TAB PO SCH ×4 (10:18→21:25)
[2020-05-24] MEDS: GABAPENTIN 100 MG CAP PO SCH ×3 (10:18→21:26)
[2020-05-24] MEDS: methocarbamoL 500 MG TAB PO SCH ×3 (10:18→21:26)
[2020-05-24] MEDS: hydroCHLOROthiazide 12.5 MG CAP PO SCH (10:18)
[2020-05-24] MEDS: MONTELUKAST 10 MG TAB PO SCH (10:18)
[2020-05-24] MEDS: DULoxetine HCL 60 MG CAPSULE.DR PO SCH (10:18)
[2020-05-24] MEDS: metFORMIN 500 MG TAB PO SCH ×2 (10:19→17:28)
[2020-05-24] MEDS: PANTOPRAZOLE 40 MG TABLET PO SCH (10:19)
[2020-05-24 11:18] LABS: Glucose,Whole Blood 66 mg/dL (75-99)
[2020-05-24 11:50] LABS: Glucose,Whole Blood 75 mg/dL (75-99)
[2020-05-24] MEDS: PHENAZOPYRIDINE 100 MG TAB PO PRN (13:49)
[2020-05-24 17:12] LABS: Glucose,Whole Blood 144 mg/dL (75-99)
[2020-05-24 19:34] LABS: Glucose,Whole Blood 157 mg/dL (75-99)
[2020-05-24] MEDS: ATORVASTATIN 10 MG TAB PO SCH (21:26)
[2020-05-25] MEDS: KETOROLAC 15 MG/ML 1 ML VIAL IVP SCH ×5 (00:35→23:18)
[2020-05-25] MEDS ORDERED: MORPHINE SULFATE 2 MG/ML SYRINGE IVP STA (03:09)
[2020-05-25] MEDS: SODIUM CHLORIDE 0.9% 1,000 ML IV SCH ×3 (03:36→23:13)
[2020-05-25] MEDS: diphenhydrAMINE 50 MG/ML 1 ML VIAL IVP SCH ×4 (03:39→20:08)
[2020-05-25] MEDS: PHENAZOPYRIDINE 100 MG TAB PO PRN (03:40)
[2020-05-25] MEDS: LEVOTHYROXINE 112 MCG TAB PO SCH (05:53)
[2020-05-25 08:04] LABS: Glucose,Whole Blood 120 mg/dL (75-99)
[2020-05-25] MEDS ORDERED: MORPHINE SULFATE 2 MG/ML SYRINGE IVP PRN (08:12)
[2020-05-25] MEDS: metFORMIN 500 MG TAB PO SCH ×2 (08:32→20:00)
[2020-05-25] MEDS: PANTOPRAZOLE 40 MG TABLET PO SCH (08:32)
[2020-05-25] MEDS: CYANOCOBALAMIN 500 MCG TAB PO SCH (08:32)
[2020-05-25] MEDS: BACLOFEN 10 MG TAB PO SCH ×4 (08:32→23:20)
[2020-05-25] MEDS: methocarbamoL 500 MG TAB PO SCH ×3 (08:32→23:19)
[2020-05-25] MEDS: hydroCHLOROthiazide 12.5 MG CAP PO SCH (08:33)
[2020-05-25] MEDS: GABAPENTIN 100 MG CAP PO SCH ×3 (08:33→23:20)
[2020-05-25] MEDS: DULoxetine HCL 60 MG CAPSULE.DR PO SCH (08:33)
[2020-05-25] MEDS: MONTELUKAST 10 MG TAB PO SCH (08:33)
--- NOTE | 2020-05-25 08:52 | FL ---
Fluoroscopy HISTORY: Stent placement 24 seconds fluoroscopy time supplied to the referring clinician. 1 intraoperative C-arm images docum ent the procedure. See dictated report from urology.
[2020-05-25] MEDS: PHENAZOPYRIDINE 100 MG TAB PO SCH ×3 (09:22→23:33)
[2020-05-25] MEDS: OXYBUTYNIN 10 MG TAB.ER.24 PO SCH (09:22)
[2020-05-25] MEDS ORDERED: NON FORMULARY DRUG (Morphine Pain Pump 1 DOSE) IV PRN (10:30)
[2020-05-25 11:47] LABS: Glucose,Whole Blood 91 mg/dL (75-99)
--- NOTE | 2020-05-25 13:08 | P.PN ---
Subjective Progress Note Date: 05/25/20 POD #1 S/P right ureteroscopy with holmium laser Still having significant spasms secondary to her stent, has required IV toradol and IV morphine. No fever/chills. Objective - Vital Signs Vital signs: Vital Signs Temp 98.2 F 05/25/20 07:26 Pulse 83 05/25/20 07:26 Resp 18 05/25/20 07:26 BP 132/78 05/25/20 07:26 Pulse Ox 94 L 05/25/20 07:26 Intake & Output 05/24/20 05/25/20 05/25/20 18:59 06:59 18:59 Intake Total 1701.5 Output Total 1 Balance 1700.5 Intake: IV 151.5 Intake, IV Titration 1100 Amount Sodium Chloride 0.9% 1, 1000 000 ml @ 100 mls/hr IV . Q10H DESTINY Rx#:[id number] Sodium Chloride 0.9% 50 50 ml @ 0 mls/hr IV .STK-MED ONE with Gentamicin 60 mg Rx#:[id number] cefTRIAXone 1 gm In 50 Sodium Chloride 0.9% 50 ml @ 100 mls/hr IVPB DAILY DESTINY Rx#:[id number] Oral 450 Output: Estimated Blood Loss 1 Other: # Voids 2 2 - Constitutional General appearance: Present: morbidly obese, severe distress - Psychiatric Psychiatric: Present: A&O x's 3, appropriate affect - Labs CBC & Chem 7: 05/23/20 09:03 05/23/20 09:03 Labs: Abnormal Lab Results - Last 24 Hours (Table) 05/24/20 05/24/20 05/25/20 Range/Units 17:10 19:32 08:03 POC Glucose (mg/dL) 144 H 157 H 120 H (75-99) mg/dL Assessment and Plan Assessment: 49 yo female with 5 mm right UVJ stone, She proceeded right sided ureteroscopy with holmium laser and stent on 05/24. Of note stone was impacted. Having significant spasms secondary to her stent, is requiring IV Toradol and IV mor phine for pain control. She also has been complaining of possible Sarcoidosis flare up. -Continue IV Toradol, Pyriduim,Will also Add Ditropan 10 mg XL. -Consult medicine for medical management -Consult pain service -Consult rheumatology for her Sarcoidosis -Repeat CBC and BMP
--- NOTE | 2020-05-25 13:08 | P.CON ---
Consult Note - . Consult date: 05/25/20 Assessment/Plan:: This is a 49-year-old morbidly obese lady with multiple medical issues including: Diabetes, sarcoidosis with arthritis, right kidney stone with right ureteral stent placement yesterday, intrathecal morphine pump due to chronic lower back pain with no back surgeries previously. The patient's pain has increased since her on urethroscopy and ureteral stent placement. Right now she gets morphine every 4 hours IV. Of note the patient cannot take pills because of surgery on her stomach and due to gastroparesis. By physical exam the patient is alert oriented 3 in mild distress. Positive tenderness on the right side of her lumbar spine. Plan: I will switch from IV morphine to IV Dilaudid 1 mg every 4 hours when necessary pain. The patient is to continue the same rate of intrathecal morphine dose which is 9 mg a day as she states. I thank you for the consultation
[2020-05-25] MEDS: HYDROmorphone 1 MG/ML 1 ML SYRINGE IVP PRN ×2 (13:31→17:52)
[2020-05-25 17:42] LABS: Glucose,Whole Blood 178 mg/dL (75-99)
[2020-05-25] MEDS: methylPREDNISolone SOD SUCCI 125 MG/2 ML VIAL IV SCH ×2 (17:52→23:18)
[2020-05-25 19:59] LABS: Glucose,Whole Blood 126 mg/dL (75-99)
[2020-05-25] MEDS: ATORVASTATIN 10 MG TAB PO SCH (20:06)
--- NOTE | 2020-05-25 22:49 | P.CONS ---
History of Present Illness - Reason for Consult Consult date: 05/25/20 Medical management Requesting physician: Fabian Dorantes - Chief Complaint Pain in all the joints joints - History of Present Illness Consultation: This is a [address] Taylor. Chronic stable medical conditions include asthma, diabetes, GERD, hypertension,(s) sleep apnea, optic neuritis, has had surgery for opening the pylorus. Patient has a morphine pain pump that is operated by . April of this year had lymph nodes pulmonary biopsy done at [facility].. pt has received Inflectra. . Patient recently received a second dose of the same. Started having significant pain all over. Presented to [facility]. Was discharged home. She presented to our ER with increasing abdominal pain. Yesterday morning patient underwent cystoscopy with the right rectus copy retrograde pyelogram laser lithotripsy, stone basketing and stent placement. This morning patient is complaining of pain predominantly in all her joints. She was to get transferred to [facility]. She states that the pain in her joints and not in the lungs. And she now says she cannot get treated her. She states that a morphine pain pump which is active does not do anything for her. Denies any fever and chills. She had eaten on her dinner last night and had all her breakfast this morning. She is quite sure that her pain is from sarcoidosis. She cannot take her car right to [facility] hence wants us to transfer her there. Review of systems: GEN.: None EYES: None HEENT: None NECK: None RESPIRATORY: None CARDIOVASCULAR: As above GASTROINTESTINAL: None GENITOURINARY: None MUSCULOSKELETAL: Pain in multiple joints LYMPHATICS: None HEMATOLOGICAL: None PSYCHIATRY: anxious NEUROLOGICAL: None Past medical history to include: Asthma, diabetes, GERD, hypertension, chronic pain syndrome, obstructive sleep apnea, multiple sclerosis, optic neuritis, gastroparesis-with outlet surgery, sarcoidosis, morphine pain pump Social history: . Does not smoke or drink alcohol. 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 Conjunctiva normal. HEENT: External appearance of nose and ears normal, oral cavity grossly normal. NECK: JVD not raised; masses not palpable. HEART: First and second heart sounds are normal; no edema. LUNGS: Respiratory rate normal; clear to auscultation. ABDOMEN: Soft, mild, liver spleen not palpable, no masses palpable. PSYCH: [Alert and oriented x3; mood and affect anxious NEUROLOGICAL: Cranial nerves grossly intact; no facial asymmetry, power and sensation grossly intact. LYMPHATICS: No lymph nodes palpable in the axilla and neck INVESTIGATIONS, reviewed in the clinical context: WBC 12 hemoglobin 13.1 platelets 332 potassium 4.5 creatinine 0.77 Coronavirus [PCR]-not detected Assessment and plan: -Patient completed her acute flareup of pain in multiple joints especially the hands. Patient's only a morphine pain pump. I'm not sure if additional pain medications will be entirely helpful. I did offer the patient that we can check with the primary team and may be a pain services see her. Patient quite thinks that the fluid up in the joints is from sarcoidosis. I'm not sure about the diagnosis. Also offered the patient to see the [facility]iee architect [facility] -Right ureter calculi: cystoscopy with the right ureteroscopy retrograde pyelogram laser lithotripsy, stone basketing and stent placement. On May 24 -Sarcoidosis. Patient had lymph node biopsies done at [facility]. Has received 2 doses Inflectra infusion. -Diabetes mellitus type 2 on oral hypoglycemic. Follow Accu-Cheks. -Gastroparesis- pylorus release surgery at [facility]. Soft diet -GERD -Hypertension -Obstructive sleep apnea -Hypothyroid -Multiple sclerosis -Optic neuritis -Chronic pain syndrome patient does have a morphine pain pump being followed by Dr. Dias Spoke to patient's nurse this morning. We'll communicate to Dr. dorantes about pain services consultation and consultation to rheumatology. I do not see any obvious benefit for patient transfer to [facility] at this point. We will await further input from the above consultants Thank you Dr. dorantes Past Medical History Past Medical History: Asthma, Diabetes Mellitus, GERD/Reflux, Hypertension, Musculoskeletal Disorder, Neurologic Disorder, Sleep Apnea/CPAP/BIPAP, Thyroid Disorder Additional Past Medical History / Comment(s): MS, back pain, DDD, optic neuritis, Gastroparesis., C-Diff (June 2018) leukopenia (sores in mouth) migraines, sleep apnea due to M.S. (no machine), sarcoidosis, cyst in stomach. , hopitalized 10/04/19 after lumbar puncture because heart rate dropped, ho spitalized 10/10/19 for headache (post l.p.), states allergy to all adhesive and needs benadryl IV 50mg prior to using tape or tegaderm etc. History of Any Multi-Drug Resistant Organisms: C-DIFF Year Discovered:: 2018 MDRO Source:: stool Past Surgical History: Bladder Surgery, Breast Surgery, Hernia Repair, Hysterectomy, Orthopedic Surgery, Tubal Ligation Additional Past Surgical History / Comment(s): rhinoplasty, bladder suspension, breast sx, morphine pump , RT KNEE SCOPE, TUMMY TUCK, Spinal cord stimulator inserted and removed. port august 2019, gastroparesis botox and EGD 11/06/2019, breast implants, gastric surgery 05/05/20 Past Anesthesia/Blood Transfusion Reactions: Motion Sickness, Postoperative Nausea & Vomiting (PONV) Past Psychological History: No Psychological Hx Reported Additional Psychological History / Comment(s): . Smoking Status: Never smoker Past Alcohol Use History: Occasional Past Drug Use History: None Reported - Past Family History Father History Unknown: Yes Family Medical History: No Reported History Additional Family Medical History / Comment(s): . Mother History Unknown: Yes Family Medical History: No Reported History Additional Family Medical History / Comment(s): NO FAMILY HISTORY Medications and Allergies Home Medications Medication Instructions Recorded Confirmed Type Albuterol Sulfate [Proair Hfa] 2 puff INHALATION RT-Q6H PRN 09/26/15 05/23/20 History Atorvastatin [Lipitor] 10 mg PO HS 09/26/15 05/10/20 History Montelukast [Singulair] 10 mg PO DAILY #30 tab 06/23/16 05/10/20 Rx DULoxetine HCL [Cymbalta] 60 mg PO DAILY 01/10/17 05/23/20 History Scopolamine 1.5MG/72Hr Patch 1 patch TRANSDERM Q72H 07/07/17 05/23/20 History [TransDerm Scop] metFORMIN HCL [Glucophage] 500 mg PO BID #60 tab 02/10/18 05/23/20 Rx Levothyroxine Sodium [Synthroid] 112 mcg PO DAILY 12/05/18 05/10/20 History rOPINIRole HCL [Requip] 2 mg PO TID 12/05/18 05/23/20 History Baclofen 20 mg PO QID 04/29/19 05/23/20 History Cyanocobalamin (Vitamin B-12) 1,000 mcg PO DAILY 10/01/19 05/23/20 History [Vitamin B-12] Hydrochlorothiazide 12.5 mg PO DAILY #30 capsule 10/04/19 05/23/20 Rx [hydroCHLOROthiazide] Morphine Pain Pump 1 dose INTRATHECA CONTINUOUS 10/10/19 05/23/20 History Acetaminophen-Codeine 300-30mg 1 tab PO Q12H PRN 10/22/19 05/23/20 History [Tylenol w/codeine #3] Ondansetron Odt [Zofran ODT] 8 mg PO Q6H PRN 11/13/19 05/23/20 History Ergocalciferol [Vitamin D2 (1250 1,250 mcg PO WE 05/10/20 05/23/20 History Mcg = 19677 Iu)] Fremanezumab-Vfrm [Ajovy 225 mg SQ Q30D 05/10/20 05/23/20 History Autoinjector] Gabapentin [Neurontin] 100 mg PO TID 05/10/20 05/23/20 History Pantoprazole Sodium [Protonix] 40 mg PO DAILY 05/10/20 05/23/20 History SUMAtriptan succinate [Sumatriptan 12 mg SQ DAILY PRN 05/10/20 05/23/20 History Succinate] methocarbamoL [Robaxin] 500 mg PO TID 05/10/20 05/23/20 History HYDROcodone/APAP 7.5-325MG [[place] 1 tab PO DAILY PRN 05/23/20 05/23/20 History 7.5-325] Infliximab-Dyyb [Inflectra] 1 dose IV [id number] 05/23/20 05/23/20 History Cephalexin [Keflex] 500 mg PO Q8HR #15 cap 05/24/20 Rx Ibuprofen 600 mg PO Q8H #20 tab 05/24/20 Rx Allergies Allergy/AdvReac Type Severity Reaction Status Date / Time adhesive Allergy Severe Rash/Hives Verified 05/23/20 10:03 adhesive tape Allergy Severe Rash/Hives Verified 05/23/20 10:03 fentanyl Allergy Severe Rash/Hives Verified 05/23/20 10:03 from patch only latex Allergy Severe Rash/Hives Verified 05/23/20 10:03 metoclopramide [From Reglan] Allergy dystonia Verified 05/23/20 10:03 from IV Reglan prochlorperazine Allergy Unknown Verified 05/23/20 10:03 [From Compazine] Physical Exam Vitals: Vital Signs Temp Pulse Resp BP Pulse Ox 05/25/20 07:26 98.2 F 83 18 132/78 94 L 05/25/20 01:37 69 17 05/25/20 00:49 97.6 F 69 17 107/70 97 05/24/20 20:00 98.0 F 78 16 117/61 97 05/24/20 15:34 97.8 F 05/24/20 15:00 71 16 116/75 98 Intake and Output 05/24/20 05/25/20 05/25/20 22:59 06:59 14:59 Other: # Voids 1 2 Results CBC & Chem 7: 05/23/20 09:03 05/23/20 09:03 Labs: Abnormal Lab Results - Last 24 Hours (Table) 05/24/20 05/24/20 05/24/20 Range/Units 11:17 17:10 19:32 POC Glucose (mg/dL) 66 L 144 H 157 H (75-99) mg/dL 05/25/20 Range/Units 08:03 POC Glucose (mg/dL) 120 H (75-99) mg/dL
[2020-05-26 01:23] LABS: Basophils # (A) 0.07 X 10*3/uL (0.00-0.10); Basophils % (A) 0.7 %; Eosinophils # (A) 0.39 X 10*3/uL (0.04-0.35); Eosinophils % (A) 3.7 %; HCT 38.3 % (37.2-46.3); HGB 12.2 g/dL (12.0-15.0); Lymphocytes % (A) 31.1 %; MCHC 31.9 g/dL (32.0-37.0); MCV 91.2 fL (80.0-97.0); Monocytes # (A) 0.59 X 10*3/uL (0.20-1.00); Monocytes % (A) 5.6 %; Neutrophils # (A) 6.23 X 10*3/uL (1.80-7.70); Neutrophils % (A) 58.7 %; Platelet Count 300 X 10*3/uL (140-440); RDW 13.3 % (11.5-14.5)
[2020-05-26] MEDS: HYDROmorphone 1 MG/ML 1 ML SYRINGE IVP PRN ×4 (02:18→17:48)
[2020-05-26 02:34] LABS: Anion Gap 10.2 mmol/L (4.00-12.00); BUN/Creat Ratio 17.5 Ratio (12.00-20.00); Calcium 8.9 mg/dL (8.7-10.3); Carbon Dioxide 25.8 mmol/L (21.6-31.8); Non-African American GFR(CKD) 87.2 (60.0-200.0); Potassium 4.4 mmol/L (3.5-5.5)
[2020-05-26] MEDS: diphenhydrAMINE 50 MG/ML 1 ML VIAL IVP SCH ×4 (03:58→21:34)
[2020-05-26] MEDS: methylPREDNISolone SOD SUCCI 125 MG/2 ML VIAL IV SCH ×3 (05:55→17:28)
[2020-05-26] MEDS: KETOROLAC 15 MG/ML 1 ML VIAL IVP SCH ×3 (05:55→17:54)
[2020-05-26] MEDS: LEVOTHYROXINE 112 MCG TAB PO SCH (05:57)
[2020-05-26 06:53] LABS: Glucose,Whole Blood 186 mg/dL (75-99)
[2020-05-26] MEDS: hydroCHLOROthiazide 12.5 MG CAP PO SCH (08:22)
[2020-05-26] MEDS: metFORMIN 500 MG TAB PO SCH ×2 (08:22→17:26)
[2020-05-26] MEDS: BACLOFEN 10 MG TAB PO SCH ×4 (08:22→21:34)
[2020-05-26] MEDS: GABAPENTIN 100 MG CAP PO SCH ×3 (08:22→21:33)
[2020-05-26] MEDS: PANTOPRAZOLE 40 MG TABLET PO SCH (08:22)
[2020-05-26] MEDS: MONTELUKAST 10 MG TAB PO SCH (08:22)
[2020-05-26] MEDS: DULoxetine HCL 60 MG CAPSULE.DR PO SCH (08:23)
[2020-05-26] MEDS: CYANOCOBALAMIN 500 MCG TAB PO SCH (08:23)
[2020-05-26] MEDS: SODIUM CHLORIDE 0.9% 1,000 ML IV SCH ×2 (08:27→21:34)
[2020-05-26] MEDS: PHENAZOPYRIDINE 100 MG TAB PO SCH ×3 (09:39→21:33)
[2020-05-26] MEDS: OXYBUTYNIN 10 MG TAB.ER.24 PO SCH (09:39)
[2020-05-26] MEDS: methocarbamoL 500 MG TAB PO SCH ×3 (09:40→21:34)
[2020-05-26 11:50] LABS: Glucose,Whole Blood 244 mg/dL (75-99)
[2020-05-26 16:58] LABS: Glucose,Whole Blood 257 mg/dL (75-99)
--- NOTE | 2020-05-26 17:01 | P.PN ---
Subjective Progress Note Date: 05/26/20 POD #2 S/P right ureteroscopy with holmium laser Still having significant spasms secondary to her stent, has required IV pain medications. No fever/chills. Objective - Vital Signs Vital signs: Vital Signs Temp 98.3 F 05/26/20 14:45 Pulse 84 05/26/20 14:45 Resp 16 05/26/20 14:45 BP 120/72 05/26/20 14:45 Pulse Ox 94 L 05/26/20 14:45 Intake & Output 05/25/20 05/26/20 05/26/20 18:59 06:59 18:59 Intake Total 620 Balance 620 Intake: Oral 620 Other: # Voids 1 2 - Constitutional General appearance: Present: mild distress, morbidly obese - Psychiatric Psychiatric: Present: A&O x's 3 - Labs CBC & Chem 7: 05/25/20 16:40 05/25/20 16:40 Labs: Abnormal Lab Results - Last 24 Hours (Table) 05/25/20 05/25/20 05/25/20 Range/Units 16:40 16:40 17:41 WBC 10.60 H (4.50-10.00) X 10*3/uL MCHC 31.9 L (32.0-37.0) g/dL Eosinophils # 0.39 H (0.04-0.35) X 10*3/uL Glucose 119 H (70-110) mg/dL POC Glucose (mg/dL) 178 H (75-99) mg/dL 05/25/20 05/26/20 05/26/20 Range/Units 19:57 06:51 11:48 WBC (4.50-10.00) X 10*3/uL MCHC (32.0-37.0) g/dL Eosinophils # (0.04-0.35) X 10*3/uL Glucose (70-110) mg/dL POC Glucose (mg/dL) 126 H 186 H 244 H (75-99) mg/dL 05/26/20 Range/Units 16:56 WBC (4.50-10.00) X 10*3/uL MCHC (32.0-37.0) g/dL Eosinophils # (0.04-0.35) X 10*3/uL Glucose (70-110) mg/dL POC Glucose (mg/dL) 257 H (75-99) mg/dL Assessment and Plan Assessment: 49 yo female with 5 mm right UVJ stone, She proceeded right sided ureteroscopy with holmium laser and stent on 05/24. Of note stone was impacted. Having significant spasms secondary to her stent, is requiring IV Toradol and IV morphine for pain control. She also has been complaining of possible Sarcoidosis flare up. -Continue IV Toradol, Pyriduim, Ditropan 10 mg XL, will also add B&O suppositories -F/U on rheumatology recs for her Sarcoidosis
--- NOTE | 2020-05-26 17:20 | P.CONS ---
History of Present Illness - Reason for Consult Consult date: 05/25/20 Requesting physician: José Ferreira - Chief Complaint sarcoidosis - History of Present Illness Pain in all joints Review of Systems Constitutional: Reports fatigue Musculoskeletal: Reports morning stiffness, Reports myalgias Past Medical History Past Medical History: Asthma, Diabetes Mellitus, GERD/Reflux, Hypertension, Musculoskeletal Disorder, Neurologic Disorder, Sleep Apnea/CPAP/BIPAP, Thyroid Disorder Additional Past Medical History / Comment(s): MS, back pain, DDD, optic neuritis, Gastroparesis., C-Diff (June 2018) leukopenia (sores in mouth) migraines, sleep apnea due to M.S. (no machine), sarcoidosis, cyst in stomach. , hopitalized 10/04/19 after lumbar puncture because heart rate dropped, hospitalized 10/10/19 for headache (post l.p.), states allergy to all adhesive and needs benadryl IV 50mg prior to using tape or tegaderm etc. History of Any Multi-Drug Resistant Organisms: C-DIFF Year Discovered:: 2018 MDRO Source:: stool Past Surgical History: Bladder Surgery, Breast Surgery, Hernia Repair, Hysterectomy, Orthopedic Surgery, Tubal Ligation Additional Past Surgical History / Comment(s): rhinoplasty, bladder suspension, breast sx, morphine pump , RT KNEE SCOPE, TUMMY TUCK, Spinal cord stimulator inserted and removed. port august 2019, gastroparesis botox and EGD 11/06/2019, breast implants, gastric surgery 05/05/20 Past Anesthesia/Blood Transfusion Reactions: Motion Sickness, Postoperative Nausea & Vomiting (PONV) Past Psychological History: No Psychological Hx Reported Additional Psychological History / Comment(s): . Smoking Status: Never smoker Past Alcohol Use History: Occasional Past Drug Use History: None Reported - Past Family History Father History Unknown: Yes Family Medical History: No Reported History Additional Family Medical History / Comment(s): . Mother History Unknown: Yes Family Medical History: No Reported History Additional Family Medical History / Comment(s): NO FAMILY HISTORY Medications and Allergies Home Medications Medication Instructions Recorded Confirmed Type Albuterol Sulfate [Proair Hfa] 2 puff INHALATION RT-Q6H PRN 09/26/15 05/23/20 History Atorvastatin [Lipitor] 10 mg PO HS 09/26/15 05/10/20 History Montelukast [Singulair] 10 mg PO DAILY #30 tab 06/23/16 05/10/20 Rx DULoxetine HCL [Cymbalta] 60 mg PO DAILY 01/10/17 05/23/20 History Scopolamine 1.5MG/72Hr Patch 1 patch TRANSDERM Q72H 07/07/17 05/23/20 History [TransDerm Scop] metFORMIN HCL [Glucophage] 500 mg PO BID #60 tab 02/10/18 05/23/20 Rx Levothyroxine Sodium [Synthroid] 112 mcg PO DAILY 12/05/18 05/10/20 History rOPINIRole HCL [Requip] 2 mg PO TID 12/05/18 05/23/20 History Baclofen 20 mg PO QID 04/29/19 05/23/20 History Cyanocobalamin (Vitamin B-12) 1,000 mcg PO DAILY 10/01/19 05/23/20 History [Vitamin B-12] Hydrochlorothiazide 12.5 mg PO DAILY #30 capsule 10/04/19 05/23/20 Rx [hydroCHLOROthiazide] Morphine Pain Pump 1 dose INTRATHECA CONTINUOUS 10/10/19 05/23/20 History Acetaminophen-Codeine 300-30mg 1 tab PO Q12H PRN 10/22/19 05/23/20 History [Tylenol w/codeine #3] Ondansetron Odt [Zofran ODT] 8 mg PO Q6H PRN 11/13/19 05/23/20 History Ergocalciferol [Vitamin D2 (1250 1,250 mcg PO WE 05/10/20 05/23/20 History Mcg = 60753 Iu)] Fremanezumab-Vfrm [Ajovy 225 mg SQ Q30D 05/10/20 05/23/20 History Autoinjector] Gabapentin [Neurontin] 100 mg PO TID 05/10/20 05/23/20 History Pantoprazole Sodium [Protonix] 40 mg PO DAILY 05/10/20 05/23/20 History SUMAtriptan succinate [Sumatriptan 12 mg SQ DAILY PRN 05/10/20 05/23/20 History Succinate] methocarbamoL [Robaxin] 500 mg PO TID 05/10/20 05/23/20 History HYDROcodone/APAP 7.5-325MG [[place] 1 tab PO DAILY PRN 05/23/20 05/23/20 History 7.5-325] Infliximab-Dyyb [Inflectra] 1 dose IV [id number] 05/23/20 05/23/20 History Cephalexin [Keflex] 500 mg PO Q8HR #15 cap 05/24/20 Rx Ibuprofen 600 mg PO Q8H #20 tab 05/24/20 Rx Allergies Allergy/AdvReac Type Severity Reaction Status Date / Time adhesive Allergy Severe Rash/Hives Verified 05/23/20 10:03 adhesive tape Allergy Severe Rash/Hives Verified 05/23/20 10:03 fentanyl Allergy Severe Rash/Hives Verified 05/23/20 10:03 from patch only latex Allergy Severe Rash/Hives Verified 05/23/20 10:03 metoclopramide [From Reglan] Allergy dystonia Verified 05/23/20 10:03 from IV Reglan prochlorperazine Allergy Unknown Verified 05/23/20 10:03 [From Compazine] Physical Exam Vitals: Vital Signs Temp Pulse Resp BP Pulse Ox 05/26/20 14:45 98.3 F 84 16 120/72 94 L 05/26/20 14:00 16 05/26/20 07:00 98.6 F 76 17 136/78 93 L 05/26/20 02:00 98.1 F 83 125/80 95 05/25/20 19:55 98.1 F 71 127/83 95 05/25/20 18:21 124/71 Intake and Output 05/26/20 05/26/20 05/26/20 06:59 14:59 22:59 Other: # Voids 2 Results CBC & Chem 7: 05/25/20 16:40 05/25/20 16:40 Labs: Abnormal Lab Results - Last 24 Hours (Table) 05/25/20 05/25/20 05/25/20 Range/Units 16:40 16:40 17:41 WBC 10.60 H (4.50-10.00) X 10*3/uL MCHC 31.9 L (32.0-37.0) g/dL Eosinophils # 0.39 H (0.04-0.35) X 10*3/uL Glucose 119 H (70-110) mg/dL POC Glucose (mg/dL) 178 H (75-99) mg/dL 05/25/20 05/26/20 05/26/20 Range/Units 19:57 06:51 11:48 WBC (4.50-10.00) X 10*3/uL MCHC (32.0-37.0) g/dL Eosinophils # (0.04-0.35) X 10*3/uL Glucose (70-110) mg/dL POC Glucose (mg/dL) 126 H 186 H 244 H (75-99) mg/dL 05/26/20 Range/Units 16:56 WBC (4.50-10.00) X 10*3/uL MCHC (32.0-37.0) g/dL Eosinophils # (0.04-0.35) X 10*3/uL Glucose (70-110) mg/dL POC Glucose (mg/dL) 257 H (75-99) mg/dL Assessment and Plan (1) Sarcoidosis of lung Current Visit: Yes Status: Acute Code(s): D86.0 - SARCOIDOSIS OF LUNG SNOMED Code(s): 27676813 (2) Intractable pain Current Visit: Yes Status: Acute Code(s): R52 - PAIN, UNSPECIFIED SNOMED Code(s): 96662252 (3) Kidney stone Current Visit: Yes Status: Acute Code(s): N20.0 - CALCULUS OF KIDNEY SNOMED Code(s): 38757292 Plan: This is a 49 y.o female that was admitted to the emergency room for (pain secondary to kidney stones....?). Patient is accompanied by her at bedside. Rheumatology was consulted as patient has recent history of sarcoidosis s/p first Inflectra infusion through Dr. Hearn at [facility]. Patient was diagnosed with sarcoidosis by roll carrier Dr. Hearn at [facility] after a positive bronchoscopy on 03/31/20 which showed non-caseating granulomas consistent with sarcoidosis along with Chronic Pain Syndrome versus small fiber neuropathy ( These results were reviewed on the patient's Portal over her phone) The patient said she received a single infusion of Inflectra on 05/21/20 and the next day experienced severe abdominal cramping. She then went to the ER in [place] and was told that she was passing kidney stones which had already reached her bladder so she was then discharged home. She continued to experience severe pain and went to [facility] emergency room on 05/23/20 where she was admitted and bladder stent inserted by Dr Magdaleno. Patient denies any previous history of renal calculi. At the time of my exam, patient complains of severe generalized pain rated a 8/10 and describes pain as a throbbing throughout shoulders and across lower abdomen. She states that pain medication makes it better and certain positions make it worse. On exam, no active synovitis or swelling. She has decreased ROM of bilateral shoulders with abduction and forward flexion secondary to pain and positive impingement sign bilaterally. Her lung leung are clear to auscultation and heart sounds RRR. Her abdomen is soft and non-distended. She has no edema. Pulses equal and 2+. Patient is in no acute distress and appears well nourished. Her skin is warm and dry to touch. She was previously seen as a new patient at our office on 09/18/19 for polyarth ropathy, weakness, swelling, and elevated C-reactive protein. Previous medical history of multiple sclerosis and hypothyroidism. At that time, she complained of mouth sores, hand swelling, and a bumpy skin rash. Her Complete Connective Tissue Disease Panel showed a POSITIVE HLA-B27, low vitamin D, and HIGH CARMEN OF 77. Her initial exam by Dr. Frazier was normal. Pelvic x-ray in 2015 and 2019 were both normal. Her elevated CARMEN level was thought to be benign as she denied any symptoms of shortness of breath, wheezing, or cough and also had clear lung leung. As she had two separate work-ups that were negative for any evidence of autoimmune disease or inflammatory arthritis, she was switched to a PRN follow up. We will draw a ionized calcium, angiotension converting enzyme, and sedimentation rate stat. I will initiate IV solu-medrol 60mg every 6 hours for 24 hours followed by Solu-medrol 60mg [id number] after. Patient may discharge home on Prednisone 30mg twice daily once she is stable, and should follow up with pulmonology as soon as possible. Addendum Dr. Frazier :The patient was seen and examined by me. I did speak directly to about this patient and the patient was demanding to be sent to [facility] as she felt that all her symptoms were related sarcoidosis which was diagnosed by pulmonary at [facility]. On physical exam I did not see any active inflammation and I was not certain that her joint pains are related to sarcoidosis. Her kidney stone could be related sarcoid but I explained to the patient that the acute treatment of kidney stone would be the same whether or not it was related sarcoid. We will do an ionized calcium to make sure she is not hypercalcemic. At this time the patient seems to be in severe pain which is most likely related to her chronic pain syndrome But since it might have something to do with her sarcoidosis I will give her IV steroids for couple days and discharged on oral steroids that she may be able to see her roll carrier as an outpatient. The patient's questions were answered to her satisfaction and she understood why a transfer to [facility] was not necessary at this time . We will return to see the patient in a day or so to get further recommendations on discharge.
[2020-05-26] MEDS: BELLADONNA-OPIUM 16.2-60 MG 1 EACH SUPP RECTAL SCH (17:35)
--- NOTE | 2020-05-26 20:39 | P.PN ---
Progress Note - Text Progress Note Date: 05/26/20 - Chief Complaint Pain in all the joints joints - History of Present Illness Consultation: This is a [address] Taylor. Chronic stable medical conditions include asthma, diabetes, GERD, hypertension,(s) sleep apnea, optic neuritis, h as had surgery for opening the pylorus. Patient has a morphine pain pump that is operated by . April of this year had lymph nodes pulmonary biopsy done at [facility].. pt has received Inflectra. . Patient recently received a second dose of the same. Started having significant pain all over. Presented to [facility]. Was discharged home. She presented to our ER with increasing abdominal pain. Yesterday morning patient underwent cystoscopy with the right rectus copy retrograde pyelogram laser lithotripsy, stone basketing and stent placement. This morning patient is complaining of pain predominantly in all her joints. She was to get transferred to [facility]. She states that the pain in her joints and not in the lungs. And she now says she cannot get treated her. She states that a morphine pain pump which is active does not do anything for her. Denies any fever and chills. She had eaten on her dinner last night and had all her breakfast this morning. She is quite sure that her pain is from sarcoidosis. She cannot take her car right to [facility] hence wants us to transfer her there. Patient was seen by Dr. Frazier from rheumatology. Started on IV Solu-Medrol. Also seen by pain services. Patient IV Dilaudid. Today-laying in bed. Appears rather comfortable. Complaining of pain in the right flank. Also stating she had some blood in the urine. Complaining of joint pains. Both in the hands and knees. Review of systems: Was done for constitutional, cardiovascular, GI, pulmonary. relevant finding as above Active Medications Albuterol Sulfate (Albuterol Nebulized 2.5 Mg/3 Ml) 2.5 mg INHALATION RT-Q6H PRN PRN Reason: Shortness Of Breath Atorvastatin Calcium (Atorvastatin 10 Mg Tab) 10 mg PO HS [facility] Last Admin: 05/25/20 20:06 Dose: 10 mg Documented by: Baclofen (Baclofen 10 Mg Tab) 20 mg PO QID [facility] Last Admin: 05/26/20 17:26 Dose: 20 mg Documented by: Belladonna Alkaloids/Opium (Belladonna-Opium 16.2-60 Mg 1 Each Supp) 1 each RECTAL TID [facility] Last Admin: 05/26/20 17:35 Dose: Not Given Documented by: Cyanocobalamin (Cyanocobalamin 500 Mcg Tab) 1,000 mcg PO DAILY [facility] Last Admin: 05/26/20 08:23 Dose: 1,000 mcg Documented by: Diphenhydramine HCl (Diphenhydramine 50 Mg/Ml 1 Ml Vial) 50 mg IVP Q6H [facility] Last Admin: 05/26/20 17:54 Dose: 50 mg Documented by: Duloxetine HCl (Duloxetine Hcl 60 Mg Capsule.Dr) 60 mg PO DAILY [facility] Last Admin: 05/26/20 08:23 Dose: 60 mg Documented by: Ergocalciferol (Ergocalciferol 1,250 Mcg (50,000 Iu) Capsule) 1,250 mcg PO [facility] Gabapentin (Gabapentin 100 Mg Cap) 100 mg PO TID [facility] Last Admin: 05/26/20 17:26 Dose: 100 mg Documented by: Hydrochlorothiazide (Hydrochlorothiazide 12.5 Mg Cap) 12.5 mg PO DAILY [facility] Last Admin: 05/26/20 08:22 Dose: 12.5 mg Documented by: Hydromorphone HCl (Hydromorphone 1 Mg/Ml 1 Ml Syringe) 1 mg IVP Q4HR PRN PRN Reason: Pain Last Admin: 05/26/20 17:48 Dose: 1 mg Documented by: Ceftriaxone Sodium 1 gm/ (Sodium Chloride) 50 mls @ 100 mls/hr IVPB DAILY [facility] Last Admin: 05/26/20 08:22 Dose: 100 mls/hr Documented by: Sodium Chloride (Saline 0.9%) 1,000 mls @ 100 mls/hr IV .Q10H [facility] Last Admin: 05/26/20 08:27 Dose: 100 mls/hr Documented by: Ketorolac Tromethamine (Ketorolac 15 Mg/Ml 1 Ml Vial) 30 mg IVP Q6HR [facility] Stop: 05/28/20 18:01 Last Admin: 05/26/20 17:54 Dose: 30 mg Documented by: Levothyroxine Sodium (Levothyroxine 112 Mcg Tab) 112 mcg PO DAILY@0630 [facility] Last Admin: 05/26/20 05:57 Dose: 112 mcg Documented by: Metformin HCl (Metformin 500 Mg Tab) 500 mg PO AC-BID [facility] Last Admin: 05/26/20 17:26 Dose: 500 mg Documented by: Methocarbamol (Methocarbamol 500 Mg Tab) 500 mg PO TID [facility] Last Admin: 05/26/20 17:26 Dose: 500 mg Documented by: Methylprednisolone Sodium Succinate (Methylprednisolone Sod Succi 125 Mg/2 Ml Vial) 60 mg IV Q8HR [facility] Last Admin: 05/26/20 17:28 Dose: 60 mg Documented by: Montelukast Sodium (Montelukast 10 Mg Tab) 10 mg PO DAILY [facility] Last Admin: 05/26/20 08:22 Dose: 10 mg Documented by: Naloxone HCl (Naloxone 0.4 Mg/Ml 1 Ml Vial) 0.2 mg IV Q2M PRN PRN Reason: Opioid Reversal Non-Formulary Medication (Morphine Pain Pump) 1 dose IV CONTINUOUS PRN PRN Reason: SEE COMMENTS Ondansetron HCl (Ondansetron 4 Mg/2 Ml Vial) 8 mg IVP Q8HR PRN PRN Reason: Nausea And Vomiting Last Admin: 05/24/20 00:11 Dose: 8 mg Documented by: Oxybutynin Chloride (Oxybutynin 10 Mg Tab.Er.24) 10 mg PO DAILY [facility] Last Admin: 05/26/20 09:39 Dose: 10 mg Documented by: Pantoprazole Sodium (Pantoprazole 40 Mg Tablet) 40 mg PO AC-BRKFST [facility] Last Admin: 05/26/20 08:22 Dose: 40 mg Documented by: Phenazopyridine HCl (Phenazopyridine 100 Mg Tab) 100 mg PO TID [facility] Last Admin: 05/26/20 17:26 Dose: 100 mg Documented by: Ropinirole HCl (Ropinirole Hcl 1 Mg Tab) 2 mg PO TID [facility] Last Admin: 05/26/20 17:26 Dose: 2 mg Documented by: Past medical history to include: Asthma, diabetes, GERD, hypertension, chronic pain syndrome, obstructive sleep apnea, multiple sclerosis, optic neuritis, gastroparesis-with outlet surgery, sarcoidosis, morphine pain pump Social history: . Does not smoke or drink alcohol. 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 Conjunctiva normal. NECK: JVD not raised; masses not palpable. HEART: First and second heart sounds are normal; no edema. LUNGS: Respiratory rate normal; clear to auscultation. ABDOMEN: Soft, mild right abdominal pain. liver spleen not palpable, no masses palpable. Muscular skeletal: Possible tenderness in the small joints of the hand PSYCH: [Alert and oriented x3; mood and affect anxious INVESTIGATIONS, reviewed in the clinical context: [address]: ESR 15 ionized calcium 5.2 AST 48 WBC 12 hemoglobin 13.1 platelets 332 potassium 4.5 creatinine 0.77 Coronavirus [PCR]-not detected Assessment and plan: -Acute care of of pain in both the hands and knees. Questionable diagnosis of sarcoidosis. Doubt the same. Ionized calcium is normal. This could be delayed serositis from Inflectra -Right ureter calculi: cystoscopy with the right ureteroscopy retrograde pyelogram laser lithotripsy, stone basketing and stent placement. On May 24 -Sarcoidosis. Patient had lymph node biopsies done [facility]. Has received 2 doses Inflectra infusion. -Diabetes mellitus type 2 on oral hypoglycemic. Uncontrolled with hyperglycemia secondary to steroids -Gastroparesis- pylorus release surgery at [facility]. Soft diet -GERD -Hypertension -Obstructive sleep apnea -Hypothyroid -Multiple sclerosis -Optic neuritis -Chronic pain syndrome patient does have a morphine pain pump being followed by Dr. Dias -Obesity BMI 30.7 Patient being followed by Dr. Frazier from rheumatology and the pain services. Continue current medications. Patient should follow-up at [facility] upon discharge. Thank you Dr. porter
[2020-05-26 21:17] LABS: Glucose,Whole Blood 177 mg/dL (75-99)
[2020-05-26] MEDS: ATORVASTATIN 10 MG TAB PO SCH (21:33)
[2020-05-27] MEDS: KETOROLAC 15 MG/ML 1 ML VIAL IVP SCH ×3 (00:30→11:25)
[2020-05-27] MEDS: BELLADONNA-OPIUM 16.2-60 MG 1 EACH SUPP RECTAL SCH ×2 (00:32→08:07)
[2020-05-27] MEDS: methylPREDNISolone SOD SUCCI 125 MG/2 ML VIAL IV SCH ×2 (00:34→07:59)
[2020-05-27] MEDS: SODIUM CHLORIDE 0.9% 1,000 ML IV SCH ×2 (02:18→11:25)
[2020-05-27] MEDS: diphenhydrAMINE 50 MG/ML 1 ML VIAL IVP SCH ×2 (02:26→08:10)
[2020-05-27] MEDS: HYDROmorphone 1 MG/ML 1 ML SYRINGE IVP PRN ×3 (02:26→13:49)
[2020-05-27] MEDS: LEVOTHYROXINE 112 MCG TAB PO SCH (06:02)
[2020-05-27 06:56] LABS: Glucose,Whole Blood 185 mg/dL (75-99)
[2020-05-27] MEDS: CYANOCOBALAMIN 500 MCG TAB PO SCH (08:03)
[2020-05-27] MEDS: MONTELUKAST 10 MG TAB PO SCH (08:03)
[2020-05-27] MEDS: BACLOFEN 10 MG TAB PO SCH ×2 (08:03→13:10)
[2020-05-27] MEDS: metFORMIN 500 MG TAB PO SCH (08:03)
[2020-05-27] MEDS: hydroCHLOROthiazide 12.5 MG CAP PO SCH (08:03)
[2020-05-27] MEDS: PANTOPRAZOLE 40 MG TABLET PO SCH (08:03)
[2020-05-27] MEDS: GABAPENTIN 100 MG CAP PO SCH (08:03)
[2020-05-27] MEDS: DULoxetine HCL 60 MG CAPSULE.DR PO SCH (08:04)
[2020-05-27] MEDS ORDERED: ERGOCALCIFEROL 1,250 MCG (50,000 IU) CAPSULE PO SCH (09:00)
[2020-05-27] MEDS: PHENAZOPYRIDINE 100 MG TAB PO SCH (09:14)
[2020-05-27] MEDS: methocarbamoL 500 MG TAB PO SCH (09:14)
[2020-05-27] MEDS: OXYBUTYNIN 10 MG TAB.ER.24 PO SCH (09:14)
[2020-05-27 11:06] VITALS: BP 183/87; PULSE 77; RESP 17; TEMP 97.6
--- NOTE | 2020-05-27 11:23 | P.PN ---
Subjective Progress Note Date: 05/27/20 Objective - Vital Signs Vital signs: Vital Signs Temp 97.6 F 05/27/20 11:05 Pulse 77 05/27/20 11:13 Resp 17 05/27/20 11:05 BP 183/87 05/27/20 11:13 Pulse Ox 94 L 05/27/20 11:05 Intake & Output 05/26/20 05/27/20 05/27/20 18:59 06:59 18:59 Intake Total 2140 Balance 2140 Intake: Intake, IV Titration 1200 Amount Sodium Chloride 0.9% 1, 1200 000 ml @ 100 mls/hr IV . Q10H DESTINY Rx#:[id number] Oral 940 Other: Voiding Method Toilet # Voids 2 4 - Labs CBC & Chem 7: 05/25/20 16:40 05/25/20 16:40 Labs: Abnormal Lab Results - Last 24 Hours (Table) 05/26/20 05/26/20 05/26/20 Range/Units 11:48 16:56 21:16 POC Glucose (mg/dL) 244 H 257 H 177 H (75-99) mg/dL 05/27/20 Range/Units 06:56 POC Glucose (mg/dL) 185 H (75-99) mg/dL Assessment and Plan (1) Sarcoidosis of lung Current Visit: Yes Status: Acute Code(s): D86.0 - SARCOIDOSIS OF LUNG SNOMED Code(s): 74964514 (2) Intractable pain Current Visit: Yes Status: Acute Code(s): R52 - PAIN, UNSPECIFIED SNOMED Code(s): 05772840 (3) Kidney stone Current Visit: Yes Status: Acute Code(s): N20.0 - CALCULUS OF KIDNEY SNOME D Code(s): 37028303 Plan: Patient was examined at bedside and is complaining of swelling in face, hands, and legs, hoarseness of voice, continued pain, and lesions to knuckles. Patient states that around 9pm last night she started noticing swelling in her left hand, eyelids, and bilateral lower extremities. She then paged the nurse who took her blood pressure which was found to be elevated. Dr Frazier was called and instructed the nurse to turn off any IVF that may be running and to contact Dr Ferreira for further management. Today, patient complains of generalized pain rated a 6/10 at best and 10/10 at worst. She denies any aggravating factors and states her pain medication is the only alleviating factor. On exam, lungs CTA and heart sounds RRR. There is mild swelling in left hand dorsum and mild swelling to BLE. She has a erythematosus papule on right 4th MCP but no rashes, skin is warm and dry. Her neurological exam is negative, AOx4. Pain is elicited with active ROM of bilateral shoulders with patient wincing and grunting. All other joints have good ROM. Patient's voice is hoarse. She appears well nourished and in no acute distress. Abdomen soft, non distended, no guarding or tenderness. I spoke with Dr. Frazier regarding the patient and we do feel her joint pain is likely non-inflammatory as she did not have a positive response to intravenous steroids and her Sed Rate prior to the initiation of IV steroids was also normal. Patient is likely suffering from chronic joint pain related to chronic pain syndrome. We will discontinue all IV steroids. Patient is stable from our standpoint as there is no evidence to suggest she is in a sarcoidosis flare. Our recommendation would include discharge home and follow-up with [facility] for further evaluation and treatment. Dictated by Rosalia Sofia HEAD BUCKER Addendum Dr De Leon : The night nurse Tata called me at 10:15 PM to tell me the patient was in severe pain from swelling in her joints and felt this was all related to sarcoidosis. Per the nurse she did feel her joints are swollen and red. I told the nurse that on initial exam she did not have any inflammatory arthritis and I did not feel her joint pain was related to her sarcoidosis as she has had chronic pain syndrome for many years and is on opiate therapy for her fibromyalgia and chronic pain And so her joint pain is certainly not a new symptom. I also told the nurse that if this was an inflammatory arthritis it would have responded to IV steroids which she has been on for 2 days and it seems like the pain has only gotten worse. When I asked the nurse with a she was on a lot of IV fluids which may be causing her edema and her blood pressure was also elevated, the nurse told me that she is only on KVO. The morning nurse did mention that her IV fluids were going at 100 and not KVO and did turn them down this morning and last night I did tell the nurse to call the primary care to discuss hypertension management. This morning per my nurse practitioner's exam she did not have any synovitis and it seemed like she had some edema related to fluid retention. At this time we have told the patient that she can stop the IV steroids since that did not really seem to help her pain and only aggravated her swelling and blood pressure and so does not need to be discharged home on oral steroids which she believes she cannot tolerate anyway. At this point rheumatology will not continue on this case. From our standpoint she can be discharged and has sarcoidosis and any potential complications can be taken care of by her [facility] specialists. She continues to complain of pain in spite of being on IV Dilaudid every 4-6 hours. I also believe she may need to see a counselor and psychiatry because of his symptoms seem exaggerated and now that she has a diagnosis of sarcoid she wants to attribute everything to that. Time with Patient: Greater than 30
[2020-05-27 11:36] LABS: Glucose,Whole Blood 280 mg/dL (75-99)
--- NOTE | 2020-05-27 22:44 | P.DS ---
Providers Date of admission: 05/23/20 10:13 Attending physician: Fabian Dorantes MD Consults: 05/25/20 08:11 Consult Physician Routine Consulting Provider: José Ferreira Consult Reason/Comments: medical management Do you want consulting provider notified?: Yes 05/25/20 11:37 Consult Physician Routine Consulting Provider: María Frazier Consult Reason/Comments: pain management Do you want consulting provider notified?: Yes Primary care physician: [facility] Course: Ms Braun is a 49 yo female that presented to the ED with 5mm right distal ureteral stone on 05/23 patient was admitted to the hospital due to intractable pain secondary to her stone. She was taken to the OR on 05/24 for right sided ureteroscopy holmium laser and stent placement, please see op note dated 05/24 for surgery details. Patient was having intractable pain secondary to spasms from her stent, she was also complaining of possible Sarcoidosis flare up. Rheumotology and internal medicine service was consulted. She was initially started on IV steroid but did not have symptoms improvement at that time it was felt her symptoms were more from chronic pain rather than Sarcoidosis flare up. She was deemed stable for discharge on 05/27 from internal medicine and Rheumotology service. Her stent discomfort also improved. She was discharged home on 05/27, she was advised to follow up in one week for stent removal, At time of discharge she was tolerating a diet, ambulating and pain is well controlled Assessment: Patient Condition at Discharge: Good Plan - Discharge Summary Discharge Rx Participant: No New Discharge Prescriptions: New Ibuprofen 600 mg PO Q8H #20 tab Cephalexin [Keflex] 500 mg PO Q8HR #15 cap No Action Atorvastatin [Lipitor] 10 mg PO HS Albuterol Sulfate [Proair Hfa] 2 puff INHALATION RT-Q6H PRN PRN Reason: Shortness Of Breath Montelukast [Singulair] 10 mg PO DAILY #30 tab DULoxetine HCL [Cymbalta] 60 mg PO DAILY Scopolamine 1.5MG/72Hr Patch [TransDerm Scop] 1 patch TRANSDERM Q72H metFORMIN HCL [Glucophage] 500 mg PO BID #60 tab rOPINIRole HCL [Requip] 2 mg PO TID Levothyroxine Sodium [Synthroid] 112 mcg PO DAILY Baclofen 20 mg PO QID Cyanocobalamin (Vitamin B-12) [Vitamin B-12] 1,000 mcg PO DAILY Hydrochlorothiazide [hydroCHLOROthiazide] 12.5 mg PO DAILY #30 capsule Morphine Pain Pump 1 dose INTRATHECA CONTINUOUS Acetaminophen-Codeine 300-30mg [Tylenol w/codeine #3] 1 tab PO Q12H PRN PRN Reason: Breakthrough Pain Ondansetron Odt [Zofran ODT] 8 mg PO Q6H PRN PRN Reason: Nausea Ergocalciferol [Vitamin D2 (1250 Mcg = 39663 Iu)] 1,250 mcg PO WE Gabapentin [Neurontin] 100 mg PO TID methocarbamoL [Robaxin] 500 mg PO TID Pantoprazole Sodium [Protonix] 40 mg PO DAILY SUMAtriptan succinate [Sumatriptan Succinate] 12 mg SQ DAILY PRN PRN Reason: Migraine Headache Fremanezumab-Vfrm [Ajovy Autoinjector] 225 mg SQ Q30D Infliximab-Dyyb [Inflectra] 1 dose IV [id number] HYDROcodone/APAP 7.5-325MG [Mcdonald 7.5-325] 1 tab PO DAILY PRN PRN Reason: Pain Discharge Medication List Albuterol Sulfate [Proair Hfa] 2 puff INHALATION RT-Q6H PRN 09/26/15 [History] Atorvastatin [Lipitor] 10 mg PO HS 09/26/15 [History] Montelukast [Singulair] 10 mg PO DAILY #30 tab 06/23/16 [Rx] DULoxetine HCL [Cymbalta] 60 mg PO DAILY 01/10/17 [History] Scopolamine 1.5MG/72Hr Patch [TransDerm Scop] 1 patch TRANSDERM Q72H 07/07/17 [History] metFORMIN HCL [Glucophage] 500 mg PO BID #60 tab 02/10/18 [Rx] Levothyroxine Sodium [Synthroid] 112 mcg PO DAILY 12/05/18 [History] rOPINIRole HCL [Requip] 2 mg PO TID 12/05/18 [History] Baclofen 20 mg PO QID 04/29/19 [History] Cyanocobalamin (Vitamin B-12) [Vitamin B-12] 1,000 mcg PO DAILY 10/01/19 [History] Hydrochlorothiazide [hydroCHLOROthiazide] 12.5 mg PO DAILY #30 capsule 10/04/19 [Rx] Morphine Pain Pump 1 dose INTRATHECA CONTINUOUS 10/10/19 [History] Acetaminophen-Codeine 300-30mg [Tylenol w/codeine #3] 1 tab PO Q12H PRN 10/22/19 [History] Ondansetron Odt [Zofran ODT] 8 mg PO Q6H PRN 11/13/19 [History] Ergocalciferol [Vitamin D2 (1250 Mcg = 69864 Iu)] 1,250 mcg PO WE 05/10/20 [History] Fremanezumab-Vfrm [Ajovy Autoinjector] 225 mg SQ Q30D 05/10/20 [History] Gabapentin [Neurontin] 100 mg PO TID 05/10/20 [History] Pantoprazole Sodium [Protonix] 40 mg PO DAILY 05/10/20 [History] SUMAtriptan succinate [Sumatriptan Succinate] 12 mg SQ DAILY PRN 05/10/20 [History] methocarbamoL [Robaxin] 500 mg PO TID 05/10/20 [History] HYDROcodone/APAP 7.5-325MG [Mcdonald 7.5-325] 1 tab PO DAILY PRN 05/23/20 [History] Infliximab-Dyyb [Inflectra] 1 dose IV [id number] 05/23/20 [History] Cephalexin [Keflex] 500 mg PO Q8HR #15 cap 05/24/20 [Rx] Ibuprofen 600 mg PO Q8H #20 tab 05/24/20 [Rx] Follow up Appointment(s)/Referral(s): Fabian Dorantes MD [STAFF PHYSICIAN] - 2 Weeks (stent removal Office is currently closed, please call the office Monday am to schedule your appointment.) Abdi Taylor MD [Primary Care Provider] - 1-2 days (Office is currently closed, please call the office Monday am to schedule your appointment.) Ashely [facility], [NON-STAFF] - 1-2 Days Patient Instructions/Handouts: Cystoscopy (DC), Lithotripsy (DC) Activity/Diet/Wound Care/Special Instructions: Increase fluid intake You may see some blood in the urine Follow-up in 2-3 weeks for you stent removal follow up at [facility] with current artist agent Discharge Disposition: HOME WITH HOME HEALTH SERVICES
--- NOTE | 2020-05-27 23:06 | P.PN ---
Progress Note - Text Progress Note Date: 05/27/20 - Chief Complaint Pain in all the joints joints - History of Present Illness Consultation: This is a [address] Taylor. Chronic stable medical conditions include asthma, diabetes, GERD, hypertension,(s) sleep apnea, optic neuritis, h as had surgery for opening the pylorus. Patient has a morphine pain pump that is operated by . April of this year had lymph nodes pulmonary biopsy done at [facility].. pt has received Inflectra. . Patient recently received a second dose of the same. Started having significant pain all over. Presented to [facility]. Was discharged home. She presented to our ER with increasing abdominal pain. Yesterday morning patient underwent cystoscopy with the right rectus copy retrograde pyelogram laser lithotripsy, stone basketing and stent placement. This morning patient is complaining of pain predominantly in all her joints. She was to get transferred to [facility]. She states that the pain in her joints and not in the lungs. And she now says she cannot get treated her. She states that a morphine pain pump which is active does not do anything for her. Denies any fever and chills. She had eaten on her dinner last night and had all her breakfast this morning. She is quite sure that her pain is from sarcoidosis. She cannot take her car right to [facility] hence wants us to transfer her there. Patient was seen by Dr. Frazier from rheumatology. Started on IV Solu-Medrol. Also seen by pain services. Patient IV Dilaudid. Today-so the patient this afternoon. Sitting at the edge of the bed. Wants to go home. Once her IV Dilaudid before she leaves. at the bedside. Still complaining of abdominal pain. Does not wish to be here anymore. Did not sleep at all last night. Rather upset. Blood pressure running on the high side. Review of systems: Was done for constitutional, cardiovascular, GI, pulmonary. relevant finding as above Current medications reviewed in today's electronic records Past medical history to include: Asthma, diabetes, GERD, hypertension, chronic pain syndrome, obstructive sleep apnea, multiple sclerosis, optic neuritis, gastroparesis-with outlet surgery, sarcoidosis, morphine pain pump Social history: . Does not smoke or drink alcohol. 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 Conjunctiva normal. NECK: JVD not raised; masses not palpable. HEART: First and second heart sounds are normal; no edema. LUNGS: Respiratory rate normal; clear to auscultation. ABDOMEN: Soft, mild right abdominal pain. liver spleen not palpable, no masses palpable. Muscular skeletal: Possible tenderness in the small joints of the hand PSYCH: [Alert and oriented x3; mood and affect very anxious INVESTIGATIONS, reviewed in the clinical context: May 26: ESR 15 ionized calcium 5.2 AST 48 WBC 12 hemoglobin 13.1 platelets 332 potassium 4.5 creatinine 0.77 Coronavirus [PCR]-not detected Assessment and plan: -Acute flare of pain in both the hands and knees. Questionable diagnosis of sarcoidosis. Doubt the same. Ionized calcium is normal. This could be delayed serositis from Inflectra -Right ureter calculi: cystoscopy with the right ureteroscopy retrograde pyelogram laser lithotripsy, stone basketing and stent placement. On May 24 -Sarcoidosis. Patient had lymph node biopsies done [facility]. Has received 2 doses Inflectra infusion. -Diabetes mellitus type 2 on oral hypoglycemic. Uncontrolled with hyperglycemia secondary to steroids -Gastroparesis- pylorus release surgery at [facility]. Soft diet -GERD -Hypertension -Obstructive sleep apnea -Hypothyroid -Multiple sclerosis -Optic neuritis -Chronic pain syndrome patient does have a morphine pain pump being followed by Dr. Dias -Obesity BMI 30.7 Patient was concerned about her blood pressure. I did explain to her it was totally relatively the same. I did explain that she has not slept last night is rather upset that explains her acute rise in blood pressure. She's had several normal readings in the course of the last 2 days. Did explain to them at length to follow up with her specialist at [facility]. For the pain instructions by the pain services and steroids as per Dr. Frazier. Several questions answered. Thank you Dr. porter
[2020-06-06] MEDS ORDERED: INFLIXIMAB-DYYB 100 MG VIAL IV SCH (09:00)
== END 2020-05-27 14:44 | disposition home health service (06) | DRG 660 ==
LOC: EC 08:14 → 6NMEDSUR 10:13 → OBSVTOIN 10:13 → 6NMEDSUR 05-26 21:50
PROVIDERS: ADMIT Urology; ATTEND Urology
PROC: BT1D1ZZ Fluoroscopy of Right Kidney, Ureter and Bladder using Low Osmolar Contrast (ICD-10-PCS; 2020-05-24)
PROC: 0T768DZ Dilation of Right Ureter with Intraluminal Device, Via Natural or Artificial Opening Endoscopic (ICD-10-PCS; principal; 2020-05-24 07:40)
PROC: 0TC68ZZ Extirpation of Matter from Right Ureter, Via Natural or Artificial Opening Endoscopic (ICD-10-PCS; 2020-05-24 07:40)
DX: N13.2 Hydronephrosis with renal and ureteral calculous obstruction (principal); H46.9 Unspecified optic neuritis; E66.01 Morbid (severe) obesity due to excess calories; E11.65 Type 2 diabetes mellitus with hyperglycemia; D86.0 Sarcoidosis of lung; G35 Multiple sclerosis; E11.43 Type 2 diabetes mellitus with diabetic autonomic (poly)neuropathy; Z20.822 Contact with and (suspected) exposure to COVID-19; K31.84 Gastroparesis; G47.33 Obstructive sleep apnea (adult) (pediatric); I10 Essential (primary) hypertension; J45.909 Unspecified asthma, uncomplicated; K21.9 Gastro-esophageal reflux disease without esophagitis; M51.36 Other intervertebral disc degeneration, lumbar region; G89.4 Chronic pain syndrome; M19.90 Unspecified osteoarthritis, unspecified site; E03.9 Hypothyroidism, unspecified; T38.0X5A Adverse effect of glucocorticoids and synthetic analogues, initial encounter; R31.0 Gross hematuria; G43.909 Migraine, unspecified, not intractable, without status migrainosus; Z68.38 Body mass index [BMI] 38.0-38.9, adult; Z79.899 Other long term (current) drug therapy; Z79.890 Hormone replacement therapy; Z79.84 Long term (current) use of oral hypoglycemic drugs; Z79.891 Long term (current) use of opiate analgesic; Z91.048 Other nonmedicinal substance allergy status; Z98.890 Other specified postprocedural states; Z90.710 Acquired absence of both cervix and uterus; Z96.82 Presence of neurostimulator; Z98.82 Breast implant status; Z91.040 Latex allergy status; Z88.5 Allergy status to narcotic agent; Z88.8 Allergy status to other drugs, medicaments and biological substances
CPT/HCPCS: 36415; 74018; 74420; 80048; 80053; 81001; 82164; 82330; 82365; 83690; 85025; 85652; 87635; 96361; 96365; 96375; 99285

== ENCOUNTER 2020-05-30 21:45 | Observation (INO) | payer BC, MEDICARE ==
[2020-05-30] MEDS ORDERED: SODIUM CHLORIDE 0.9% 1,000 ML IV STA (23:05)
[2020-05-30] MEDS ORDERED: HYDROmorphone 1 MG/ML 1 ML SYRINGE IVP STA (23:05)
[2020-05-30] MEDS ORDERED: ONDANSETRON 4 MG/2 ML VIAL IVP STA (23:05)
[2020-05-30] MEDS ORDERED: diphenhydrAMINE 50 MG/ML 1 ML VIAL IVP STA (23:05)
[2020-05-30 23:32] LABS: Basophils % (A) 0 %; Eosinophils # (A) 0.5 k/uL (0-0.7); Eosinophils % (A) 6 %; HCT 37.6 % (34.0-46.0); HGB 12.4 gm/dL (11.4-16.0); Lymphocytes # (A) 2.9 k/uL (1.0-4.8); Lymphocytes % (A) 36 %; MCH 28.8 pg (25.0-35.0); MCHC 33.1 g/dL (31.0-37.0); MCV 87.1 fL (80.0-100.0); Mean Platelet Volume 7.3; Monocytes # (A) 0.4 k/uL (0-1.0); Monocytes % (A) 5 %; Neutrophils # (A) 4.2 k/uL (1.3-7.7); Neutrophils % (A) 51 %; Platelet Count 322 k/uL (150-450); RBC 4.32 m/uL (3.80-5.40); RDW 13.5 % (11.5-15.5); WBC 8.1 k/uL (3.8-10.6)
[2020-05-30 23:41] LABS: Appearance,Urine Clear (Clear); Bacteria,Urine Rare /hpf; Bilirubin,Urine Negative (Negative); Blood,Urine Large (Negative); Color,Urine Yellow; Glucose,Urine (UA) Negative (Negative); Ketones,Urine Negative (Negative); Leukocyte Esterase,Urine Trace (Negative); Mucus,Urine Occasional /hpf; Nitrite,Urine Negative (Negative); Protein,Urine 1+ (Negative); RBC,Urine >182 /hpf (0-5); Specific Gravity,Urine 1.017 (1.001-1.035); Squamous Epithelial Cell,Urine <1 /hpf (0-4); Urobilinogen,Urine <2.0 mg/dL (<2.0); WBC,Urine 4 /hpf (0-5)
[2020-05-30 23:46] LABS: ALT 14 U/L (4-34); AST 17 U/L (14-36); African American GFR (CKD) >90 (>60 ml/min/1.73 sqM); Albumin 3.5 g/dL (3.5-5.0); Alkaline Phosphatase 66 U/L (38-126); Amylase 48 U/L (30-110); Anion Gap 4 mmol/L; Blood Urea Nitrogen 21 mg/dL (7-17); Calcium 9.1 mg/dL (8.4-10.2); Carbon Dioxide 30 mmol/L (22-30); Chloride 103 mmol/L (98-107); Glucose 121 mg/dL (74-99); Lipase 25 U/L (23-300); Non-African American GFR(CKD) >90 (>60 ml/min/1.73 sqM); Potassium 4.3 mmol/L (3.5-5.1); Sodium 137 mmol/L (137-145); Total Bilirubin 0.3 mg/dL (0.2-1.3); Total Protein 5.8 g/dL (6.3-8.2)
--- NOTE | 2020-05-31 00:19 | CT ---
EXAMINATION TYPE: CT abdomen pelvis w con DATE OF EXAM: 05/31/2020 COMPARISON: 05/22/2020 HISTORY: Abd Pain CT DLP: 2380.4 mGycm Automated exposure control for dose reduction was used. CONTRAST: Performed with IV Contrast, patient injected with 100 mL of Isovue 300. Images obtained from the diaphragm to the floor the pelvis with IV contrast. Lung bases show no pulmonary consolidation or pleural fluid. Heart appears normal. There is no perica rdial effusion. There is small hiatal hernia. Liver spleen stomach pancreas gallbladder appear intact. The bile ducts are not dilated. There is no adrenal mass. There is right-sided ureteral stent in good position. There is mild right-s ided hydronephrosis. The bladder distends smoothly. Left kidney shows no hydronephrosis. There is no retroperitoneal adenopathy. There is no inguinal hernia. There is no free fluid in the pelvis. There are scattered sigmoid divert icula. There is no sign of diverticulitis. There is subcutaneous edema over the anterior abdomen. The re is device implanted in the subcutaneous tissues posterior to the right iliac bone. There is hyster ectomy. There is 2.7 cm cyst in the pelvis on the right side that is probably ovarian cyst. Appendix is not definitely seen. There is no sign of thickened appendix. There is no mesenteric edema. There is no ascites or free air. There is no bowel obstruction. The del ayed images show normal renal excretion. There is normal contrast opacification of the urinary bladde r. I see no sign of renal obstruction. IMPRESSION: There is right ureteral stent in good position. Mild right-sided hydronephrosis not changed compared to old exam. No sign of renal obstruction. There is moderate subcutaneous edema over the anterior abdomen that is new compared to old exam. Ther e is also subcutaneous edema over the lower lumbar spine also essentially new compared to old exam. C linical significance is not clear.
[2020-05-31] MEDS ORDERED: ONDANSETRON 4 MG/2 ML VIAL IVP PRN (01:03)
[2020-05-31] MEDS ORDERED: NALOXONE 0.4 MG/ML 1 ML VIAL IV PRN (01:03)
--- NOTE | 2020-05-31 01:07 | ED ---
Abdominal Pain HPI - General Chief Complaint: Abdominal Pain Stated Complaint: nausea, abd pain Time Seen by Provider: 05/30/20 22:14 Source: patient Mode of arrival: ambulatory Limitations: no limitations - History of Present Illness Initial Comments: 49-year-old female patient presents to the emergency department today for evaluation of right flank pain, swelling over her abdomen and lower legs. Patient states she recently was admitted and had a stent placed in the right ureter for a kidney stone. States she was discharged home feeling somewhat b jesus. States pain started to increase again. States her home pain medications are not helping. States that she has a history of gastroparesis and can't take ibuprofen because the pills in her stomach for to long. States that her pain management physician did give her prescription for one [place] per day which is not helping. Patient states over the last couple days she has noticed increased swelling over her abdomen and lower legs. Denies any shortness of breath or orthopnea. Denies fever or chills. States she is still having a lot of blood in her urine. States she has pain over her lower abdomen and suprapubic region. Patient denies any recent rash, cough, shortness of breath, chest pain, diarrhea, constipation, numbness, tingling, dizziness, weakness, headache, visual changes, or any other complaints. - Related Data Home Medications Medication Instructions Recorded Confirmed Albuterol Sulfate [Proair Hfa] 2 puff INHALATION RT-Q6H PRN 09/26/15 05/23/20 Atorvastatin [Lipitor] 10 mg PO HS 09/26/15 05/10/20 DULoxetine HCL [Cymbalta] 60 mg PO DAILY 01/10/17 05/23/20 Scopolamine 1.5MG/72Hr Patch 1 patch TRANSDERM Q72H 07/07/17 05/23/20 [TransDerm Scop] Levothyroxine Sodium [Synthroid] 112 mcg PO DAILY 12/05/18 05/10/20 rOPINIRole HCL [Requip] 2 mg PO TID 12/05/18 05/23/20 Baclofen 20 mg PO QID 04/29/19 05/23/20 Cyanocobalamin (Vitamin B-12) 1,000 mcg PO DAILY 10/01/19 05/23/20 [Vitamin B-12] Morphine Pain Pump 1 dose INTRATHECA CONTINUOUS 10/10/19 05/23/20 Acetaminophen-Codeine 300-30mg 1 tab PO Q12H PRN 10/22/19 05/23/20 [Tylenol w/codeine #3] Ondansetron Odt [Zofran ODT] 8 mg PO Q6H PRN 11/13/19 05/23/20 Ergocalciferol [Vitamin D2 (1250 1,250 mcg PO WE 05/10/20 05/23/20 Mcg = 43176 Iu)] Fremanezumab-Vfrm [Ajovy 225 mg SQ Q30D 05/10/20 05/23/20 Autoinjector] Gabapentin [Neurontin] 100 mg PO TID 05/10/20 05/23/20 Pantoprazole Sodium [Protonix] 40 mg PO DAILY 05/10/20 05/23/20 SUMAtriptan succinate [Sumatriptan 12 mg SQ DAILY PRN 05/10/20 05/23/20 Succinate] methocarbamoL [Robaxin] 500 mg PO TID 05/10/20 05/23/20 HYDROcodone/APAP 7.5-325MG [[place] 1 tab PO DAILY PRN 05/23/20 05/23/20 7.5-325] Infliximab-Dyyb [Inflectra] 1 dose IV [id number] 05/23/20 05/23/20 Previous Rx's Medication Instructions Recorded Montelukast [Singulair] 10 mg PO DAILY #30 tab 06/23/16 metFORMIN HCL [Glucophage] 500 mg PO BID #60 tab 02/10/18 Hydrochlorothiazide 12.5 mg PO DAILY #30 capsule 10/04/19 [hydroCHLOROthiazide] Cephalexin [Keflex] 500 mg PO Q8HR #15 cap 05/24/20 Ibuprofen 600 mg PO Q8H #20 tab 05/24/20 Allergies Allergy/AdvReac Type Severity Reaction Status Date / Time adhesive Allergy Severe Rash/Hives Verified 05/30/20 21:52 adhesive tape Allergy Severe Rash/Hives Verified 05/30/20 21:52 fentanyl Allergy Severe Rash/Hives Verified 05/30/20 21:52 from patch only latex Allergy Severe Rash/Hives Verified 05/30/20 21:52 metoclopramide [From Reglan] Allergy dystonia Verified 05/30/20 21:52 from IV Reglan prochlorperazine Allergy Unknown Verified 05/30/20 21:52 [From Compazine] Review of Systems ROS Statement: Those systems with pertinent positive or pertinent negative responses have been documented in the HPI. ROS Other: All systems not noted in ROS Statement are negative. Past Medical History Past Medical History: Asthma, Diabetes Mellitus, GERD/Reflux, Hypertension, Musculoskeletal Disorder, Neurologic Disorder, Sleep Apnea/CPAP/BIPAP, Thyroid Disorder Additional Past Medical History / Comment(s): MS, back pain, DDD, optic neuritis, Gastroparesis., C-Diff (June 2018) leukopenia (sores in mouth) migraines, sleep apnea due to M.S. (no machine), sarcoidosis, cyst in stomach. , hopitalized 10/04/19 after lumbar puncture because heart rate dropped, hospitalized 10/10/19 for headache (post l.p.), states allergy to all adhesive and needs benadryl IV 50mg prior to using tape or tegaderm etc. History of Any Multi-Drug Resistant Organisms: C-DIFF Date of last positivie culture/infection: 2018 MDRO Source:: stool Past Surgical History: Bladder Surgery, Breast Surgery, Hernia Repair, Hysterect dread, Orthopedic Surgery, Tubal Ligation Additional Past Surgical History / Comment(s): rhinoplasty, bladder suspension, breast sx, morphine pump , RT KNEE SCOPE, TUMMY TUCK, Spinal cord stimulator inserted and removed. port august 2019, gastroparesis botox and EGD 11/06/2019, kandi ast implants, gastric surgery 05/05/20 Past Anesthesia/Blood Transfusion Reactions: Motion Sickness, Postoperative Nausea & Vomiting (PONV) Past Psychological History: No Psychological Hx Reported Smoking Status: Never smoker Past Alcohol Use History: Occasional Past Drug Use History: None Reported - Past Family History Father History Unknown: Yes Family Medical History: No Reported History Additional Family Medical History / Comment(s): . Mother History Unknown: Yes Family Medical History: No Reported History Additional Family Medical History / Comment(s): NO FAMILY HISTORY General Exam Limitations: no limitations General appearance: alert, in no apparent distress, other (This is a well- developed, well-nourished adult female patient in no acute distress. Vital signs upon presentation are temperature 98.9F, pulse 75, respirations 20, blood pressure 173/113, pulse ox 100% on room air.) Eye exam: Present: normal appearance, PERRL, EOMI. Absent: scleral icterus, conjunctival injection, periorbital swelling ENT exam: Present: normal exam, normal oropharynx, mucous membranes moist Respiratory exam: Present: normal lung sounds bilaterally. Absent: respiratory distress, wheezes, rales, rhonchi, stridor Cardiovascular Exam: Present: regular rate, normal rhythm, normal heart sounds. Absent: systolic murmur, diastolic murmur, rubs, gallop, clicks GI/Abdominal exam: Present: soft, tenderness (Suprapubic), normal bowel sounds. Absent: distended, guarding, rebound, rigid Back exam: Present: normal inspection, CVA tenderness (R), CVA tenderness (L) Neurological exam: Present: alert, oriented X3, CN II-XII intact Psychiatric exam: Present: normal affect, normal mood Skin exam: Present: warm, dry, intact, normal color. Absent: rash Course Vital Signs 05/30/20 21:49 Temperature 98.9 F Pulse Rate 75 Respiratory 20 Rate Blood Pressure 173/113 O2 Sat by Pulse 100 Oximetry Medical Decision Making - Medical Decision Making 49-year-old female patient presented to the emergency department today reporting uncontrollable pain to the back and abdomen mostly in the right flank. Had a recent ureteral stent placed for kidney stone. Home pain medication is not work ing. Patient is also reporting swelling over her abdomen and lower legs which is new for her. Physical examination did reveal bilateral CVA tenderness, suprapubic tenderness. Labs reviewed and revealed normal white blood cell count, elevated BUN at 21. Urinalysis showed greater than [address] abdomen and pelvis was obtained to check stent position, this shows to be in good position with mild right-sided hydronephrosis. Also showed new moderate subcutaneous edema over the abdomen and lumbar spine which is of uncertain clinical significance. Patient will be admitted to the hospital for intractable pain. We will consult urology. Patient is agreeable this plan. Case discussed with my attending Dr. Chacon. - Lab Data Result diagrams: 05/30/20 23:14 05/30/20 23:14 Lab Results 05/30/20 05/30/20 05/30/20 Range/Units 23:14 23:14 23:14 WBC 8.1 (3.8-10.6) k/uL RBC 4.32 (3.80-5.40) m/uL Hgb 12.4 (11.4-16.0) gm/dL Hct 37.6 (34.0-46.0) % MCV 87.1 (80.0-100.0) fL MCH 28.8 (25.0-35.0) pg MCHC 33.1 (31.0-37.0) g/dL RDW 13.5 (11.5-15.5) % Plt Count 322 (150-450) k/uL MPV 7.3 Neutrophils % 51 % Lymphocytes % 36 % Monocytes % 5 % Eosinophils % 6 % Basophils % 0 % Neutrophils # 4.2 (1.3-7.7) k/uL Lymphocytes # 2.9 (1.0-4.8) k/uL Monocytes # 0.4 (0-1.0) k/uL Eosinophils # 0.5 (0-0.7) k/uL Basophils # 0.0 (0-0.2) k/uL Sodium 137 (137-145) mmol/L Potassium 4.3 (3.5-5.1) mmol/L Chloride 103 (98-107) mmol/L Carbon Dioxide 30 (22-30) mmol/L Anion Gap 4 mmol/L BUN 21 H (7-17) mg/dL Creatinine 0.75 (0.52-1.04) mg/dL Est GFR (CKD-EPI)AfAm >90 (>60 ml/min/1.73 sqM) Est GFR (CKD-EPI)NonAf >90 (>60 ml/min/1.73 sqM) Glucose 121 H (74-99) mg/dL Calcium 9.1 (8.4-10.2) mg/dL Total Bilirubin 0.3 (0.2-1.3) mg/dL AST 17 (14-36) U/L ALT 14 (4-34) U/L Alkaline Phosphatase 66 (38-126) U/L Total Protein 5.8 L (6.3-8.2) g/dL Albumin 3.5 (3.5-5.0) g/dL Amylase 48 (30-110) U/L Lipase 25 (23-300) U/L Urine Color Yellow Urine Appearance Clear (Clear) Urine pH 7.0 (5.0-8.0) Ur Specific [place] 1.017 (1.001-1.035) Urine Protein 1+ H (Negative) Urine Glucose (UA) Negative (Negative) Urine Ketones Negative (Negative) Urine Blood Large H (Negative) Urine Nitrite Negative (Negative) Urine Bilirubin Negative (Negative) Urine Urobilinogen <2.0 (<2.0) mg/dL Ur Leukocyte Esterase Trace H (Negative) Urine RBC >182 H (0-5) /hpf Urine WBC 4 (0-5) /hpf Ur Squamous Epith Cells <1 (0-4) /hpf Urine Bacteria Rare H (None) /hpf Urine Mucus Occasional H (None) /hpf - Radiology Data Radiology results: report reviewed, image reviewed CT abdomen and pelvis with contrast was obtained. Report was reviewed in its entirety. Impression by Dr. Humphrey shows right ureteral stent in good position. Mild right-sided hydronephrosis not changed compared to old exam. No sign of renal traction. There is moderate subcutaneous edema over the anterior abdomen that is new compared to old exam. There is also subcutaneous edema over the lower lumbar spine also essentially new compared to old exam. Clinical significance is not clear. Disposition Clinical Impression: Right flank pain, Intractable pain, Edema Disposition: ADMITTED IP TO THIS [facility] Condition: Serious Referrals: Abdi Taylor MD [Primary Care Provider] - 1-2 days Decision to Admit Reason: Admit from EC Decision Date: 05/31/20 Decision Time: 01:07
[2020-05-31] MEDS ORDERED: SODIUM CHLORIDE 0.9% 1,000 ML IV SCH (01:15)
[2020-05-31] MEDS: HYDROmorphone 1 MG/ML 1 ML SYRINGE IVP PRN ×2 (04:21→07:37)
[2020-05-31] MEDS ORDERED: KETOROLAC 15 MG/ML 1 ML VIAL IVP SCH (06:00)
[2020-05-31 07:47] VITALS: PULSE 82; RESP 16; TEMP 98.6
[2020-05-31] MEDS ORDERED: HYDROcodone/APAP 7.5-325MG 1 EACH TAB PO PRN (08:35)
[2020-05-31] MEDS ORDERED: ONDANSETRON ODT 8 MG TAB.RAPDIS PO PRN (08:49)
[2020-05-31] MEDS ORDERED: DULoxetine HCL 60 MG CAPSULE.DR PO SCH (09:00)
[2020-05-31] MEDS ORDERED: LEVOTHYROXINE 112 MCG TAB PO SCH (09:00)
[2020-05-31] MEDS ORDERED: methocarbamoL 500 MG TAB PO SCH (09:00)
[2020-05-31] MEDS ORDERED: metFORMIN 500 MG TAB PO SCH (09:00)
[2020-05-31] MEDS ORDERED: SCOPOLAMINE 1.5MG/72HR PATCH TRANSDERM SCH (09:00)
[2020-05-31] MEDS ORDERED: CYANOCOBALAMIN 500 MCG TAB PO SCH (09:00)
[2020-05-31] MEDS ORDERED: BACLOFEN 10 MG TAB PO SCH (09:00)
[2020-05-31] MEDS ORDERED: MONTELUKAST 10 MG TAB PO SCH (09:00)
[2020-05-31] MEDS ORDERED: IBUPROFEN 600 MG TAB PO SCH (09:00)
[2020-05-31] MEDS ORDERED: PANTOPRAZOLE 40 MG TABLET PO SCH (09:00)
[2020-05-31] MEDS ORDERED: GABAPENTIN 100 MG CAP PO SCH (09:00)
[2020-05-31] MEDS ORDERED: hydroCHLOROthiazide 12.5 MG CAP PO SCH (09:00)
[2020-05-31 09:27] VITALS: BP 170/80
--- NOTE | 2020-05-31 14:47 | P.HPIM ---
History of Present Illness 49-year-old the female was admitted the with concerns of pain secondary to ureteral stents. Patient has a recent ureteral stents that were placed. Patient was comparing of right flank pain and believes she has pain secondary to his ureteral stents. Patient has multiple other complaints. Patient was requesting for narcotic pain medication although all night patient doesn't have any evidence of ALLERGIC reaction clinically but was requesting Benadryl. Patient is clearly exhibiting narcotic seeking behavior CT of the him in and pelvis was obtained which was read as abdominal wall edema or erythema in the back although that was not evident clinically patient doesn't have any abdominal wall edema or edema of the back may have mild nonpitting pedal edema. She does not have any other signs or symptoms of sepsis. Denied any UTI symptoms patient urine did show RBC of 182 which is said secondary to recent ureteral stent. Patient requested multiple times for Benadryl when I declined to give her Benadryl patient became belligerent started shouting. Although clinically patient doesn't have any rash no evidence of any ALLERGIC reaction will not require any Benadryl or any opiates. Patient is clearly exhibiting narcotic seeking behavior. Review of Systems REVIEW OF SYSTEMS: CONSTITUTIONAL: No fever, no malaise, no fatigue. HEENT: No recent visual problems or hearing problems. Denied any sore throat. CARDIOVASCULAR: No chest pain, orthopnea, PND, no palpitations, no syncope. PULMONARY: No shortness of breath, no cough, no hemoptysis. GASTROINTESTINAL: Mentioned in HPI NEUROLOGICAL: No headaches, no weakness, no numbness. HEMATOLOGICAL: Denies any bleeding or petechiae. GENITOURINARY: Denies any burning micturition, frequency, or urgency. MUSCULOSKELETAL/RHEUMATOLOGICAL: Denies any joint pain, swelling, or any muscle pain. ENDOCRINE: Denies any polyuria or polydipsia. The rest of the 14-point review of systems is negative. Past Medical History Past Medical History: Asthma, Diabetes Mellitus, GERD/Reflux, Hypertension, Musc uloskeletal Disorder, Neurologic Disorder, Sleep Apnea/CPAP/BIPAP, Thyroid Disorder Additional Past Medical History / Comment(s): MS, back pain, DDD, optic neuritis, Gastroparesis., C-Diff (June 2018) leukopenia (sores in mouth) migraines, sleep apnea due to M.S. (no machine), sarcoidosis, cyst in stomach. , hopitalized 10/04/19 after lumbar puncture because heart rate dropped, hospitalized 10/10/19 for headache (post l.p.), states allergy to all adhesive and needs benadryl IV 50mg prior to using tape or tegaderm etc. History of Any Multi-Drug Resistant Organisms: C-DIFF Date of last positivie culture/infection: 2018 MDRO Source:: stool Past Surgical History: Bladder Surgery, Breast Surgery, Hernia Repair, Hysterectomy, Orthopedic Surgery, Tubal Ligation Additional Past Surgical History / Comment(s): rhinoplasty, bladder suspension, breast sx, morphine pump , RT KNEE SCOPE, TUMMY TUCK, Spinal cord stimulator inserted and removed. port august 2019, gastroparesis botox and EGD 11/06/2019, breast implants, gastric surgery 05/05/20, Stent placed on kidney Past Anesthesia/Blood Transfusion Reactions: Motion Sickness, Postoperative Nausea & Vomiting (PONV) Past Psychological History: No Psychological Hx Reported Additional Psychological History / Comment(s): . Smoking Status: Never smoker Past Alcohol Use History: Occasional Past Drug Use History: None Reported - Past Family History Father History Unknown: Yes Family Medical History: No Reported History Additional Family Medical History / Comment(s): . Mother History Unknown: Yes Family Medical History: No Reported History Additional Family Medical History / Comment(s): NO FAMILY HISTORY Medications and Allergies Home Medications Medication Instructions Recorded Confirmed Type Albuterol Sulfate [Proair Hfa] 2 puff INHALATION RT-Q6H PRN 09/26/15 05/31/20 History Atorvastatin [Lipitor] 10 mg PO HS 09/26/15 05/31/20 History Montelukast [Singulair] 10 mg PO DAILY #30 tab 06/23/16 05/31/20 Rx DULoxetine HCL [Cymbalta] 60 mg PO DAILY 01/10/17 05/31/20 History Scopolamine 1.5MG/72Hr Patch 1 patch TRANSDERM Q72H 07/07/17 05/31/20 History [TransDerm Scop] metFORMIN HCL [Glucophage] 500 mg PO BID #60 tab 02/10/18 05/31/20 Rx Levothyroxine Sodium [Synthroid] 112 mcg PO DAILY 12/05/18 05/31/20 History rOPINIRole HCL [Requip] 2 mg PO TID 12/05/18 05/31/20 History Baclofen 20 mg PO QID 04/29/19 05/31/20 History Cyanocobalamin (Vitamin B-12) 1,000 mcg PO DAILY 10/01/19 05/31/20 History [Vitamin B-12] Hydrochlorothiazide 12.5 mg PO DAILY #30 capsule 10/04/19 05/31/20 Rx [hydroCHLOROthiazide] Morphine Pain Pump 1 dose INTRATHECA CONTINUOUS 10/10/19 05/31/20 History Acetaminophen-Codeine 300-30mg 1 tab PO Q12H PRN 10/22/19 05/31/20 History [Tylenol w/codeine #3] Ondansetron Odt [Zofran ODT] 8 mg PO Q6H PRN 11/13/19 05/31/20 History Ergocalciferol [Vitamin D2 (1250 1,250 mcg PO WE 05/10/20 05/31/20 History Mcg = 89101 Iu)] Fremanezumab-Vfrm [Ajovy 225 mg SQ Q30D 05/10/20 05/31/20 History Autoinjector] Gabapentin [Neurontin] 100 mg PO TID 05/10/20 05/31/20 History Pantoprazole Sodium [Protonix] 40 mg PO DAILY 05/10/20 05/31/20 History SUMAtriptan succinate [Sumatriptan 12 mg SQ DAILY PRN 05/10/20 05/31/20 History Succinate] methocarbamoL [Robaxin] 500 mg PO TID 05/10/20 05/31/20 History HYDROcodone/APAP 7.5-325MG [[place] 1 tab PO DAILY PRN 05/23/20 05/31/20 History 7.5-325] Infliximab-Dyyb [Inflectra] 1 dose IV [id number] 05/23/20 05/31/20 History Cephalexin [Keflex] 500 mg PO Q8HR #15 cap 05/24/20 05/31/20 Rx Ibuprofen 600 mg PO Q8H #20 tab 05/24/20 05/31/20 Rx Allergies Allergy/AdvReac Type Severity Reaction Status Date / Time adhesive Allergy Severe Rash/Hives Verified 05/31/20 09:18 adhesive tape Allergy Severe Rash/Hives Verified 05/31/20 09:18 fentanyl Allergy Severe Rash/Hives Verified 05/31/20 09:18 from patch only latex Allergy Severe Rash/Hives Verified 05/31/20 09:18 metoclopramide [From Reglan] Allergy dystonia Verified 05/31/20 09:18 from IV Reglan prochlorperazine Allergy Unknown Verified 05/31/20 09:18 [From Compazine] Physical Exam Vitals: Vital Signs Temp Pulse Pulse Resp BP BP Pulse Ox 05/31/20 09:26 170/80 05/31/20 07:00 98.6 F 82 16 178/99 98 05/31/20 02:52 98.1 F 05/31/20 02:01 98 F 72 18 146/99 97 05/31/20 01:28 68 18 146/90 98 05/30/20 21:49 98.9 F 75 20 173/113 100 Intake and Output 05/30/20 05/31/20 05/31/20 22:59 06:59 14:59 Intake Total 160 Balance 160 Intake: Intake, IV Titration 160 Amount Sodium Chloride 0.9% 1, 160 000 ml @ 20 mls/hr IV . Q24H [facility] Rx#:[id number] Other: Voiding Method Toilet # Voids 1 Weight 108.862 kg 108.862 kg PHYSICAL EXAMINATION: GENERAL: The patient is alert and oriented x3, not in any acute distress. Obese HEENT: Pupils are round and equally reacting to light. EOMI. No scleral icterus. No conjunctival pallor. Normocephalic, atraumatic. No pharyngeal erythema. No thyromegaly. CARDIOVASCULAR: S1 and S2 present. No murmurs, rubs, or gallops. PULMONARY: Chest is clear to auscultation, no wheezing or crackles. ABDOMEN: Soft, nontender, nondistended, normoactive bowel sounds. No palpable organomegaly. MUSCULOSKELETAL: No joint swelling or deformity. EXTREMITIES: No cyanosis, clubbing, or pedal edema. NEUROLOGICAL: Gross neurological examination did not reveal any focal deficits. SKIN: No rashes. Results CBC & Chem 7: 05/30/20 23:14 05/30/20 23:14 Labs: Abnormal Lab Results - Last 24 Hours (Table) 05/30/20 05/30/20 Range/Units 23:14 23:14 BUN 21 H (7-17) mg/dL Glucose 121 H (74-99) mg/dL Total Protein 5.8 L (6.3-8.2) g/dL Urine Protein 1+ H (Negative) Urine Blood Large H (Negative) Ur Leukocyte Esterase Trace H (Negative) Urine RBC >182 H (0-5) /hpf Urine Bacteria Rare H (None) /hpf Urine Mucus Occasional H (None) /hpf Thrombosis Risk Factor Assmnt - Choose All That Apply Any of the Below Risk Factors Present?: Yes Each Factor Represents 1 point: Age 41-60 years, Obesity (BMI >25) Other Risk Factors: No Other congenital or acquired thrombophilia - If yes, enter type in comment: No Thrombosis Risk Factor Assessment Total Risk Factor Score: 2 Thrombosis Risk Factor Assessment Level: Low Risk Assessment and Plan Plan: -Abdominal pain. No clear pathology was evident on the computed tomography scan of the abdomen clinically abdomen is soft. Patient is probably malingering for opiates. Patient will be discharged today counseling was provided although patient really became belligerent. She and the in the past had a spinal Stimulator Which Was Subsequently Removed Patient Has Multiple Other Diagnosis Including Multiple Sclerosis, Sarcoidosis Not Sure whether she actually has these conditions. -Type 2 diabetes mellitus -gastroesophageal reflux disease -hypertension -Sleep apnea -Obesity -Hypothyroidism -Hypertension Patient will be discharged today will not need further hospitalization
--- NOTE | 2020-05-31 14:48 | P.DS ---
Providers Date of admission: 05/31/20 00:51 Attending physician: Nyla Aguirre Consults: 05/31/20 01:05 Consult Physician Routine Consulting Provider: Fabian Dorantes Consult Reason/Comments: intractable right flank pain; Recent stent placement Do you want consulting provider notified?: Yes Primary care physician: [facility] Course: Refer to HPI for further details Patient Condition at Discharge: Serious Plan - Discharge Summary Discharge Rx Participant: No New Discharge Prescriptions: No Action Atorvastatin [Lipitor] 10 mg PO HS Albuterol Sulfate [Proair Hfa] 2 puff INHALATION RT-Q6H PRN PRN Reason: Shortness Of Breath Montelukast [Singulair] 10 mg PO DAILY #30 tab DULoxetine HCL [Cymbalta] 60 mg PO DAILY Scopolamine 1.5MG/72Hr Patch [TransDerm Scop] 1 patch TRANSDERM Q72H metFORMIN HCL [Glucophage] 500 mg PO BID #60 tab rOPINIRole HCL [Requip] 2 mg PO TID Levothyroxine Sodium [Synthroid] 112 mcg PO DAILY Baclofen 20 mg PO QID Cyanocobalamin (Vitamin B-12) [Vitamin B-12] 1,000 mcg PO DAILY Hydrochlorothiazide [hydroCHLOROthiazide] 12.5 mg PO DAILY #30 capsule Morphine Pain Pump 1 dose INTRATHECA CONTINUOUS Acetaminophen-Codeine 300-30mg [Tylenol w/codeine #3] 1 tab PO Q12H PRN PRN Reason: Breakthrough Pain Ondansetron Odt [Zofran ODT] 8 mg PO Q6H PRN PRN Reason: Nausea Ergocalciferol [Vitamin D2 (1250 Mcg = 41292 Iu)] 1,250 mcg PO WE Gabapentin [Neurontin] 100 mg PO TID methocarbamoL [Robaxin] 500 mg PO TID Pantoprazole Sodium [Protonix] 40 mg PO DAILY SUMAtriptan succinate [Sumatriptan Succinate] 12 mg SQ DAILY PRN PRN Reason: Migraine Headache Fremanezumab-Vfrm [Ajovy Autoinjector] 225 mg SQ Q30D Infliximab-Dyyb [Inflectra] 1 dose IV [id number] HYDROcodone/APAP 7.5-325MG [[place] 7.5-325] 1 tab PO DAILY PRN PRN Reason: Pain Ibuprofen 600 mg PO Q8H #20 tab Cephalexin [Keflex] 500 mg PO Q8HR #15 cap Discharge Medication List Albuterol Sulfate [Proair Hfa] 2 puff INHALATION RT-Q6H PRN 09/26/15 [History] Atorvastatin [Lipitor] 10 mg PO HS 09/26/15 [History] Montelukast [Singulair] 10 mg PO DAILY #30 tab 06/23/16 [Rx] DULoxetine HCL [Cymbalta] 60 mg PO DAILY 01/10/17 [History] Scopolamine 1.5MG/72Hr Patch [TransDerm Scop] 1 patch TRANSDERM Q72H 07/07/17 [History] metFORMIN HCL [Glucophage] 500 mg PO BID #60 tab 02/10/18 [Rx] Levothyroxine Sodium [Synthroid] 112 mcg PO DAILY 12/05/18 [History] rOPINIRole HCL [Requip] 2 mg PO TID 12/05/18 [History] Baclofen 20 mg PO QID 04/29/19 [History] Cyanocobalamin (Vitamin B-12) [Vitamin B-12] 1,000 mcg PO DAILY 10/01/19 [History] Hydrochlorothiazide [hydroCHLOROthiazide] 12.5 mg PO DAILY #30 capsule 10/04/19 [Rx] Morphine Pain Pump 1 dose INTRATHECA CONTINUOUS 10/10/19 [History] Acetaminophen-Codeine 300-30mg [Tylenol w/codeine #3] 1 tab PO Q12H PRN 10/22/19 [History] Ondansetron Odt [Zofran ODT] 8 mg PO Q6H PRN 11/13/19 [History] Ergocalciferol [Vitamin D2 (1250 Mcg = 61739 Iu)] 1,250 mcg PO WE 05/10/20 [History] Fremanezumab-Vfrm [Ajovy Autoinjector] 225 mg SQ Q30D 05/10/20 [History] Gabapentin [Neurontin] 100 mg PO TID 05/10/20 [History] Pantoprazole Sodium [Protonix] 40 mg PO DAILY 05/10/20 [History] SUMAtriptan succinate [Sumatriptan Succinate] 12 mg SQ DAILY PRN 05/10/20 [History] methocarbamoL [Robaxin] 500 mg PO TID 05/10/20 [History] HYDROcodone/APAP 7.5-325MG [[place] 7.5-325] 1 tab PO DAILY PRN 05/23/20 [History] Infliximab-Dyyb [Inflectra] 1 dose IV [id number] 05/23/20 [History] Cephalexin [Keflex] 500 mg PO Q8HR #15 cap 05/24/20 [Rx] Ibuprofen 600 mg PO Q8H #20 tab 05/24/20 [Rx] Follow up Appointment(s)/Referral(s): Abdi Taylor MD [Primary Care Provider] - 1-2 days Patient Instructions/Handouts: Chronic Pain (DC) Discharge Disposition: HOME SELF-CARE
[2020-05-31] MEDS ORDERED: CEPHALEXIN 500 MG CAP PO SCH (16:00)
[2020-05-31] MEDS ORDERED: ATORVASTATIN 10 MG TAB PO SCH (21:00)
== END 2020-05-31 10:50 | disposition home or self-care (01) ==
LOC: EC 21:45 → 6NMEDSUR 05-31 00:51
PROVIDERS: ADMIT Hospitalist; ATTEND Hospitalist
DX: R10.30 Lower abdominal pain, unspecified (principal); R11.0 Nausea; R60.9 Edema, unspecified; E11.43 Type 2 diabetes mellitus with diabetic autonomic (poly)neuropathy; K31.84 Gastroparesis; I10 Essential (primary) hypertension; K21.9 Gastro-esophageal reflux disease without esophagitis; G47.30 Sleep apnea, unspecified; E66.9 Obesity, unspecified; Z68.36 Body mass index [BMI] 36.0-36.9, adult; E03.9 Hypothyroidism, unspecified; J45.909 Unspecified asthma, uncomplicated; G35 Multiple sclerosis; M54.9 Dorsalgia, unspecified; H46.9 Unspecified optic neuritis; G43.909 Migraine, unspecified, not intractable, without status migrainosus; D86.9 Sarcoidosis, unspecified; Z96.0 Presence of urogenital implants; R94.4 Abnormal results of kidney function studies; M79.89 Other specified soft tissue disorders; Z91.048 Other nonmedicinal substance allergy status; Z16.24 Resistance to multiple antibiotics; Z90.710 Acquired absence of both cervix and uterus; Z98.82 Breast implant status; Z79.899 Other long term (current) drug therapy; Z79.84 Long term (current) use of oral hypoglycemic drugs; Z79.890 Hormone replacement therapy; Z79.891 Long term (current) use of opiate analgesic; Z88.5 Allergy status to narcotic agent; Z88.8 Allergy status to other drugs, medicaments and biological substances; Z91.040 Latex allergy status; Z87.442 Personal history of urinary calculi; Z20.822 Contact with and (suspected) exposure to COVID-19; Z96.9 Presence of functional implant, unspecified
CPT/HCPCS: 96376; 96361 ×3; 96375 ×2; 96374; 99285; 36415; 80053; 82150; 83690; 85025; 81001; 87635; 74177; G0378; J1200; J2405 ×2; J1642; J1170 ×2; J1885; Q9967

== ENCOUNTER → 2020-07-06 | Outpatient (CLI) | payer BC, MEDICARE ==
--- NOTE | 2020-07-06 15:51 | US ---
EXAMINATION TYPE: US kidneys/renal and bladder DATE OF EXAM: 07/06/2020 COMPARISON: CT 05/30/2020 CLINICAL HISTORY: 50-year-old female N20.1 Calculus of ureter. TECHNIQUE: Multiple sonographic images of the kidneys and bladder are obtained. FINDINGS: EXAM MEASUREMENTS: Right Kidney: 10.8 x 4.5 x 4.5 cm Left Kidney: 11.5 x 5.8 x 5.5 cm No hydronephrosis on either side. Bladder: Partially distended bladder shows no gross abnormality. Bilateral Jets seen: only right jet seen. IMPRESSION: No hydronephrosis.
== END | disposition home or self-care (01) ==
LOC: RADUSWWP 15:04
PROVIDERS: ATTEND Urology
DX: N20.1 Calculus of ureter (principal)
CPT/HCPCS: 76770

== ENCOUNTER 2022-04-17 18:17 | Inpatient (IN) | payer MEDICARE, OTHER ==
[2022-04-17] MEDS ORDERED: MORPHINE SULFATE 4 MG/ML SYRINGE IV STA ×2 (18:45→21:06)
[2022-04-17] MEDS ORDERED: SODIUM CHLORIDE 0.9% 500 ML 500 ML IV STA (18:45)
[2022-04-17] MEDS ORDERED: diphenhydrAMINE 50 MG/ML 1 ML VIAL IVP STA (19:03)
[2022-04-17 19:23] LABS: Appearance,Urine Clear (Clear); Bilirubin,Urine Negative (Negative); Blood,Urine Large (Negative); Color,Urine Yellow; Glucose,Urine (UA) Negative (Negative); Ketones,Urine Negative (Negative); Leukocyte Esterase,Urine Moderate (Negative); Mucus,Urine Rare /hpf; Nitrite,Urine Negative (Negative); Protein,Urine Trace (Negative); RBC,Urine >182 /hpf (0-5); Specific Gravity,Urine 1.028 (1.001-1.035); Squamous Epithelial Cell,Urine 2 /hpf (0-4); Urobilinogen,Urine <2.0 mg/dL (<2.0); WBC,Urine 5 /hpf (0-5)
--- NOTE | 2022-04-17 19:26 | XR ---
EXAMINATION TYPE: XR KUB DATE OF EXAM: 04/17/2022 COMPARISON: 05/23/2020 HISTORY: Abdominal pain TECHNIQUE: 2 views FINDINGS: There is no sign of intestinal obstruction or pneumoperitoneum. Fecal pattern is normal. No evidence of a mass. There is device implanted over the right ilium. Lung bases are clear. No patholo gic calcifications over the kidneys. IMPRESSION: Nonacute abdomen. No adverse change.
[2022-04-17 19:54] LABS: Basophils # (A) 0.1 k/uL (0-0.2); Basophils % (A) 1 %; Eosinophils # (A) 0.2 k/uL (0-0.7); Eosinophils % (A) 4 %; HCT 36.2 % (34.0-46.0); HGB 11.6 gm/dL (11.4-16.0); Lymphocytes # (A) 2.6 k/uL (1.0-4.8); Lymphocytes % (A) 50 %; MCH 27.9 pg (25.0-35.0); MCHC 31.9 g/dL (31.0-37.0); MCV 87.4 fL (80.0-100.0); Mean Platelet Volume 7.5; Monocytes # (A) 0.3 k/uL (0-1.0); Monocytes % (A) 5 %; Neutrophils # (A) 1.9 k/uL (1.3-7.7); Neutrophils % (A) 37 %; Platelet Count 257 k/uL (150-450); RBC 4.14 m/uL (3.80-5.40); RDW 13.7 % (11.5-15.5); WBC 5.2 k/uL (3.8-10.6)
[2022-04-17 20:09] LABS: ALT 23 U/L (4-34); AST 26 U/L (14-36); African American GFR (CKD) >90 (>60 ml/min/1.73 sqM); Albumin 3.5 g/dL (3.5-5.0); Alkaline Phosphatase 70 U/L (38-126); Amylase 59 U/L (30-110); Anion Gap 4 mmol/L; Blood Urea Nitrogen 18 mg/dL (7-17); Calcium 8.5 mg/dL (8.4-10.2); Carbon Dioxide 28 mmol/L (22-30); Chloride 107 mmol/L (98-107); Glucose 121 mg/dL (74-99); Lipase 34 U/L (23-300); Non-African American GFR(CKD) 78 (>60 ml/min/1.73 sqM); Potassium 4.1 mmol/L (3.5-5.1); Sodium 139 mmol/L (137-145); Total Bilirubin 0.3 mg/dL (0.2-1.3); Total Protein 6.2 g/dL (6.3-8.2)
--- NOTE | 2022-04-17 20:47 | CT ---
EXAMINATION TYPE: CT abdomen pelvis wo con DATE OF EXAM: 04/17/2022 COMPARISON: 05/30/2020 HISTORY: Right flank pain CT DLP: mGycm Automated exposure control for dose reduction was used. Images obtained from the diaphragm to the floor the pelvis with no contrast. Heart is normal. Lung bases are clear of consolidation. No pleural effusion. No pericardial effusion. There is small hiatal hernia. Liver spleen and stomach appear intact. The bile duct are not dilated. There is no evidence of pancre atic mass. Gallbladder appears normal. There is no adrenal mass. Kidneys have normal size and contour. No hydronephrosis. Ureters are not dilated. The bladder distend s smoothly. No inguinal hernia. No free fluid in the pelvis. No pelvic mass. There is hysterectomy. There is no mesenteric edema. No ascites or free air. No sign of a bowel obstruction. Appendix appear s normal. The lumbar vertebra have normal alignment. Posterior element are intact. No compression fracture. The bony pelvis is intact. The hip joints are intact. There is device implanted over the anterior right lower quadrant. IMPRESSION: Negative CT scan abdomen and pelvis. No renal stone or obstruction. Normal appendix. No adverse merida e compared to old exam. There is removal of the right-sided ureteral stent compared to old exam. Ther e is clearing of the anterior subcutaneous edema compared to old exam.
[2022-04-17] MEDS ORDERED: ONDANSETRON 4 MG/2 ML VIAL IVP STA (21:06)
[2022-04-17] MEDS ORDERED: ACETAMINOPHEN TAB 325 MG TAB PO PRN (21:09)
[2022-04-17] MEDS ORDERED: NALOXONE 0.4 MG/ML 1 ML VIAL IV PRN (21:09)
--- NOTE | 2022-04-17 21:17 | ED ---
Abdominal Pain HPI - General Chief Complaint: Abdominal Pain Stated Complaint: abd pain, migraine Time Seen by Provider: 04/17/22 18:23 Source: patient Limitations: no limitations - History of Present Illness Initial Comments: This patient is a 51-year-old woman who presents to have evaluation of right sided abdominal pain. She states that this is been going on and getting pro gressively worse over the pulp the past 3 days or so. She states the pains were sharp and severe but then will resolve for a number of minutes but they do recur. The patient has had associated nausea and has had a couple of episodes of vomiting, no hematemesis. Patient states she has had no change in bowel movements. When questioned she states she does have a bowel movement every week and that that is normal for her. No change in urination noted. No fever or chills. No chest symptoms no symptoms into the legs. MD Complaint: abdominal pain Onset/Timin -: days(s) Location: RLQ, R flank Radiation: none Migration to: no migration Severity: severe Quality: sharp Consistency: intermittent Improves With: nothing Worsens With: nothing Associated Symptoms: nausea - Related Data Home Medications Medication Instructions Recorded Confirmed Albuterol Sulfate [Proair Hfa] 2 puff INHALATION RT-Q6H PRN 09/26/15 04/17/22 DULoxetine HCL [Cymbalta] 60 mg PO DAILY 01/10/17 04/17/22 Scopolamine 1 mg/72 Hr Patch 1 patch TRANSDERM Q72H 07/07/17 04/17/22 [TransDerm Scop] Levothyroxine Sodium [Synthroid] 112 mcg PO DAILY 12/05/18 04/18/22 rOPINIRole HCL [Requip] 2 mg PO TID 12/05/18 04/17/22 Baclofen 10 mg PO TID PRN 04/29/19 04/17/22 Morphine Pain Pump 1 dose INTRATHECA CONTINUOUS 10/10/19 04/17/22 Ondansetron Odt [Zofran ODT] 8 mg PO Q6H PRN 11/13/19 04/17/22 Gabapentin [Neurontin] 100 mg PO TID 05/10/20 04/17/22 Pantoprazole Sodium [Protonix] 40 mg PO BID 05/10/20 04/17/22 SUMAtriptan succinate 6 mg SQ BID PRN 05/10/20 04/17/22 methocarbamoL [Robaxin] 500 mg PO TID PRN 05/10/20 04/17/22 Infliximab-Dyyb [Inflectra] 1 dose IV Q42D 05/23/20 04/17/22 oxyCODONE-APAP 10-325MG [Percocet 1 tab PO BID PRN 04/17/22 04/17/22 10-325 mg] Previous Rx's Medication Instructions Recorded metFORMIN HCL [Glucophage] 500 mg PO BID #60 tab 02/10/18 Allergies Allergy/AdvReac Type Severity Reaction Status Date / Time adhesive Allergy Severe Rash/Hives Verified 04/17/22 21:37 adhesive tape Allergy Severe Rash/Hives Verified 04/17/22 21:37 fentanyl Allergy Severe Rash/Hives Verified 04/17/22 21:37 from patch only latex Allergy Severe Rash/Hives Verified 04/17/22 21:37 metoclopramide [From Reglan] Allergy dystonia Verified 04/17/22 21:37 from IV Reglan prochlorperazine Allergy Unknown Verified 04/17/22 21:37 [From Compazine] Review of Systems ROS Statement: Those systems with pertinent positive or pertinent negative responses have been documented in the HPI. ROS Other: All systems not noted in ROS Statement are negative. Constitutional: Denies: fever, chills Respiratory: Denies: cough, dyspnea Cardiovascular: Denies: chest pain, palpitations, edema Gastrointestinal: Reports: abdominal pain, nausea, vomiting. Denies: diarrhea, constipation, melena, hematochezia Genitourinary: Denies: dysuria, frequency, hematuria Musculoskeletal: Denies: back pain Skin: Denies: rash Neurological: Denies: headache, weakness Past Medical History Past Medical History: Asthma, Diabetes Mellitus, GERD/Reflux, Hypertension, Musculoskeletal Disorder, Neurologic Disorder, Sleep Apnea/CPAP/BIPAP, Thyroid Disorder Additional Past Medical History / Comment(s): MS, back pain, DDD, optic chaz ritis, Gastroparesis., C-Diff (June 2018) leukopenia (sores in mouth) migraines, sleep apnea due to M.S. (no machine), sarcoidosis, cyst in stomach. , hopitalized 10/04/19 after lumbar puncture because heart rate dropped, hospitalized 10/10/19 for headache (post l.p.), states allergy to all adhesive and needs benadryl IV 50mg prior to using tape or tegaderm etc. History of Any Multi-Drug Resistant Organisms: C-DIFF Date of last positivie culture/infection: 2018 MDRO Source:: stool Past Surgical History: Bladder Surgery, Breast Surgery, Hernia Repair, Hysterectomy, Orthopedic Surgery, Tubal Ligation Additional Past Surgical History / Comment(s): rhinoplasty, bladder suspension, breast sx, morphine pump , RT KNEE SCOPE, TUMMY TUCK, Spinal cord stimulator inserted and removed. port august 2019, gastroparesis botox and EGD 11/06/2019, breast implants, gastric surgery 05/05/20, Stent placed on kidney Past Anesthesia/Blood Transfusion Reactions: Motion Sickness, Postoperative Nausea & Vomiting (PONV) Past Psychological History: No Psychological Hx Reported Smoking Status: Never smoker Past Alcohol Use History: Occasional Past Drug Use History: None Reported - Past Family History Father History Unknown: Yes Family Medical History: No Reported History Additional Family Medical History / Comment(s): . Mother History Unknown: Yes Family Medical History: No Reported History Additional Family Medical History / Comment(s): NO FAMILY HISTORY General Exam Limitations: no limitations General appearance: alert, in no apparent distress Head exam: Present: atraumatic, normocephalic Eye exam: Present: normal appearance. Absent: scleral icterus, conjunctival injection Neck exam: Present: normal inspection Respiratory exam: Present: normal lung sounds bilaterally. Absent: respiratory distress, wheezes, rales, rhonchi, stridor Cardiovascular Exam: Present: regular rate, normal rhythm, normal heart sounds. Absent: systolic murmur, diastolic murmur, rubs, gallop GI/Abdominal exam: Present: soft, tenderness (Right-sided tenderness no rebo und), other (Exam is slightly limited in that the patient has pain pump implanted in the area of the pain makes palpation of the underlying abdomen difficult.). Absent: distended, guarding, rebound, rigid, mass, pulsatile mass, hernia Extremities exam: Present: normal inspection, normal capillary refill. Absent: pedal edema, calf tenderness Back exam: Present: normal inspection. Absent: CVA tenderness (R), CVA tenderness (L) Neurological exam: Present: alert Skin exam: Present: warm, dry, intact, normal color. Absent: rash Course Vital Signs 04/17/22 04/17/22 18:18 21:37 Temperature 98.6 F Pulse Rate 70 72 Respiratory 18 16 Rate Blood Pressure 158/94 124/88 O2 Sat by Pulse 99 95 Oximetry Medical Decision Making - Medical Decision Making Patient is 51-year-old woman with going on 3 days of intermittent, severe, sharp, right lower quadrant abdominal pains. The workup here not revealing the cause. She does have large amounts of much Hematuria and therefore sent for CT but does not reveal evident stone. Computed tomography scan of the abdomen as interpreted by myself does not reveal acute kidney stone. No evident appendicitis. There does appear to be moderate amount of stool throughout the colon, but no yanira obstruction. The patient is given multiple rounds of analgesic and antiemetic here and states she is has not having any improvement, therefore will admit to medical service with surgery consult for abdominal pain. Was pt. sent in by a medical professional or institution? @ -No Did you speak to anyone other than the patient for history? @ -[Partner Did you review nursing and triage notes? @ -[agree Were old charts reviewed? @ -[No Differential Diagnosis? @ -[Differential Abdominal Pain Women: Appendicitis, Cholecystitis, diverticulosis, ischemic bowel, pancreatitis, hepatitis, UTI, gastroenteritis, AAA, incarcerated hernia, bowel obstruction, constipation, inflammatory bowel, hepatitis, peptic ulcer disease, splenic infarction, perforated viscus, vulvitis, ovarian torsion, PID, kidney stone, placenta abruption, this is not meant to be an all-inclusive list EKG interpreted by me (3pts min.)? @ -[none] X-rays interpreted by me (1pt min.)? @ -[none] CT interpreted by me (1pt min.)? @ -[See chart] U/S interpreted by me (1pt. min.)? @ -[none] What testing was considered but not performed? (CT, X-rays, U/S, labs)? Why? @ [No What meds were considered but not given? Why? @ -[none] Did you discuss the management of the patient with other professionals? @ -[Admitting provider Did you reconcile home meds? @ -[none] Was smoking cessation discussed for >3mins.? @ -[none] Was critical care preformed (if so, how long)? @ -[none] Were there social determinants of health that impacted care today? How? (Homelessness, low income, unemployed, alcoholism, drug addiction, transportation, low edu. Level, literacy, decrease access to med. care, [facility], rehab)? @ -[No Was there de-escalation of care discussed even if they declined? (Discuss DNR or withdrawal of care, Hospice)? @ -[No What co-morbidities impacted this encounter? (DM, HTN, Smoking, COPD, CAD, Cancer, CVA, Hep., AIDS, mental health diagnosis, sleep apnea, morbid obesity)? @ -[Patient multiple comorbidities Was patient admitted / discharged? @ -[Admitted Undiagnosed new problem with uncertain prognosis? @ -[none] Drug Therapy requiring intensive monitoring for toxicity (Heparin, Nitro, Insulin, Cardizem)? @ -[none] Were any procedures done? @ -[none] Diagnosis/symptom? @ -[1. Intractable right-sided abdominal pain, acute 2. Hematuria Acute, or Chronic, or Acute on Chronic? @ -[default] Uncomplicated (without systemic symptoms) or Complicated (systemic symptoms)? @ -[Uncomplicated Side effects of treatment? @ -[none] Exacerbation, Progression, or Severe Exacerbation] @ -[no] Poses a threat to life or bodily function? @ -[no] - Lab Data Result diagrams: 04/21/22 05:19 04/21/22 05:19 Lab Results 04/17/22 04/17/22 04/17/22 Range/Units 18:49 18:49 18:49 WBC 5.2 (3.8-10.6) k/uL RBC 4.14 (3.80-5.40) m/uL Hgb 11.6 (11.4-16.0) gm/dL Hct 36.2 (34.0-46.0) % MCV 87.4 (80.0-100.0) fL MCH 27.9 (25.0-35.0) pg MCHC 31.9 (31.0-37.0) g/dL RDW 13.7 (11.5-15.5) % Plt Count 257 (150-450) k/uL MPV 7.5 Neutrophils % 37 % Lymphocytes % 50 % Monocytes % 5 % Eosinophils % 4 % Basophils % 1 % Neutrophils # 1.9 (1.3-7.7) k/uL Lymphocytes # 2.6 (1.0-4.8) k/uL Monocytes # 0.3 (0-1.0) k/uL Eosinophils # 0.2 (0-0.7) k/uL Basophils # 0.1 (0-0.2) k/uL Sodium 139 (137-145) mmol/L Potassium 4.1 (3.5-5.1) mmol/L Chloride 107 (98-107) mmol/L Carbon Dioxide 28 (22-30) mmol/L Anion Gap 4 mmol/L BUN 18 H (7-17) mg/dL Creatinine 0.87 (0.52-1.04) mg/dL Est GFR (CKD-EPI)AfAm >90 (>60 ml/min/1.73 sqM) Est GFR (CKD-EPI)NonAf 78 (>60 ml/min/1.73 sqM) Glucose 121 H (74-99) mg/dL POC Glucose (mg/dL) (70-110) mg/dL POC Glu Injection Molding Process Technician ID Estimated Ave Glu mg/dL Hemoglobin A1c (0.0-6.0) % Plasma Lactic Acid Antoni (0.7-2.0) mmol/L Calcium 8.5 (8.4-10.2) mg/dL Total Bilirubin 0.3 (0.2-1.3) mg/dL AST 26 (14-36) U/L ALT 23 (4-34) U/L Alkaline Phosphatase 70 (38-126) U/L Total Protein 6.2 L (6.3-8.2) g/dL Albumin 3.5 (3.5-5.0) g/dL Amylase 59 (30-110) U/L Lipase 34 (23-300) U/L Urine Color Yellow Urine Appearance Clear (Clear) Urine pH 5.0 (5.0-8.0) Ur Specific [place] 1.028 (1.001-1.035) Urine Protein Trace H (Negative) Urine Glucose (UA) Negative (Negative) Urine Ketones Negative (Negative) Urine Blood Large H (Negative) Urine Nitrite Negative (Negative) Urine Bilirubin Negative (Negative) Urine Urobilinogen <2.0 (<2.0) mg/dL Ur Leukocyte Esterase Moderate H (Negative) Urine RBC >182 H (0-5) /hpf Urine WBC 5 (0-5) /hpf Ur Squamous Epith Cells 2 (0-4) /hpf Urine Mucus Rare H (None) /hpf 04/17/22 04/17/22 04/18/22 Range/Units 18:49 18:49 17:37 WBC (3.8-10.6) k/uL RBC (3.80-5.40) m/uL Hgb (11.4-16.0) gm/dL Hct (34.0-46.0) % MCV (80.0-100.0) fL MCH (25.0-35.0) pg MCHC (31.0-37.0) g/dL RDW (11.5-15.5) % Plt Count (150-450) k/uL MPV Neutrophils % % Lymphocytes % % Monocytes % % Eosinophils % % Basophils % % Neutrophils # (1.3-7.7) k/uL Lymphocytes # (1.0-4.8) k/uL Monocytes # (0-1.0) k/uL Eosinophils # (0-0.7) k/uL Basophils # (0-0.2) k/uL Sodium (137-145) mmol/L Potassium (3.5-5.1) mmol/L Chloride (98-107) mmol/L Carbon Dioxide (22-30) mmol/L Anion Gap mmol/L BUN (7-17) mg/dL Creatinine (0.52-1.04) mg/dL Est GFR (CKD-EPI)AfAm (>60 ml/min/1.73 sqM) Est GFR (CKD-EPI)NonAf (>60 ml/min/1.73 sqM) Glucose (74-99) mg/dL POC Glucose (mg/dL) 105 (70-110) mg/dL POC Glu Injection Molding Process Technician ID Jeannette Manzo Estimated Ave Glu mg/dL 128 Hemoglobin A1c 6.1 H (0.0-6.0) % Plasma Lactic Acid Antoni 1.7 (0.7-2.0) mmol/L Calcium (8.4-10.2) mg/dL Total Bilirubin (0.2-1.3) mg/dL AST (14-36) U/L ALT (4-34) U/L Alkaline Phosphatase (38-126) U/L Total Protein (6.3-8.2) g/dL Albumin (3.5-5.0) g/dL Amylase (30-110) U/L Lipase (23-300) U/L Urine Color Urine Appearance (Clear) Urine pH (5.0-8.0) Ur Specific [place] (1.001-1.035) Urine Protein (Negative) Urine Glucose (UA) (Negative) Urine Ketones (Negative) Urine Blood (Negative) Urine Nitrite (Negative) Urine Bilirubin (Negative) Urine Urobilinogen (<2.0) mg/dL Ur Leukocyte Esterase (Negative) Urine RBC (0-5) /hpf Urine WBC (0-5) /hpf Ur Squamous Epith Cells (0-4) /hpf Urine Mucus (None) /hpf 04/18/22 04/19/22 Range/Units 20:32 06:34 WBC (3.8-10.6) k/uL RBC (3.80-5.40) m/uL Hgb (11.4-16.0) gm/dL Hct (34.0-46.0) % MCV (80.0-100.0) fL MCH (25.0-35.0) pg MCHC (31.0-37.0) g/dL RDW (11.5-15.5) % Plt Count (150-450) k/uL MPV Neutrophils % % Lymphocytes % % Monocytes % % Eosinophils % % Basophils % % Neutrophils # (1.3-7.7) k/uL Lymphocytes # (1.0-4.8) k/uL Monocytes # (0-1.0) k/uL Eosinophils # (0-0.7) k/uL Basophils # (0-0.2) k/uL Sodium (137-145) mmol/L Potassium (3.5-5.1) mmol/L Chloride (98-107) mmol/L Carbon Dioxide (22-30) mmol/L Anion Gap mmol/L BUN (7-17) mg/dL Creatinine (0.52-1.04) mg/dL Est GFR (CKD-EPI)AfAm (>60 ml/min/1.73 sqM) Est GFR (CKD-EPI)NonAf (>60 ml/min/1.73 sqM) Glucose (74-99) mg/dL POC Glucose (mg/dL) 147 H 111 H (70-110) mg/dL POC Glu Injection Molding Process Technician ID Eliud, Earl Blaine, Domonique Estimated Ave Glu mg/dL Hemoglobin A1c (0.0-6.0) % Plasma Lactic Acid Antoni (0.7-2.0) mmol/L Calcium (8.4-10.2) mg/dL Total Bilirubin (0.2-1.3) mg/dL AST (14-36) U/L ALT (4-34) U/L Alkaline Phosphatase (38-126) U/L Total Protein (6.3-8.2) g/dL Albumin (3.5-5.0) g/dL Amylase (30-110) U/L Lipase (23-300) U/L Urine Color Urine Appearance (Clear) Urine pH (5.0-8.0) Ur Specific [place] (1.001-1.035) Urine Protein (Negative) Urine Glucose (UA) (Negative) Urine Ketones (Negative) Urine Blood (Negative) Urine Nitrite (Negative) Urine Bilirubin (Negative) Urine Urobilinogen (<2.0) mg/dL Ur Leukocyte Esterase (Negative) Urine RBC (0-5) /hpf Urine WBC (0-5) /hpf Ur Squamous Epith Cells (0-4) /hpf Urine Mucus (None) /hpf Disposition Clinical Impression: Abdominal pain, Hematuria Disposition: ADMITTED IP TO THIS HOSP
[2022-04-17] MEDS ORDERED: ALBUTEROL NEBULIZED 2.5 MG/3 ML INHALATION PRN (21:57)
[2022-04-17] MEDS: SODIUM CHLORIDE 0.9% 1,000 ML IV SCH (22:24)
[2022-04-17] MEDS: GABAPENTIN 100 MG CAP PO SCH (22:25)
[2022-04-17] MEDS: diphenhydrAMINE 50 MG/ML 1 ML VIAL IVP PRN (22:40)
[2022-04-18] MEDS: MORPHINE SULFATE 4 MG/ML SYRINGE IV PRN ×5 (01:08→23:39)
[2022-04-18] MEDS: SODIUM CHLORIDE 0.9% 1,000 ML IV SCH ×3 (05:45→20:34)
[2022-04-18] MEDS: LEVOTHYROXINE 112 MCG TAB PO SCH (05:46)
[2022-04-18] MEDS: ONDANSETRON 4 MG/2 ML VIAL IVP PRN ×3 (05:46→23:40)
[2022-04-18] MEDS: diphenhydrAMINE 50 MG/ML 1 ML VIAL IVP PRN ×3 (06:08→20:34)
[2022-04-18] MEDS: GABAPENTIN 100 MG CAP PO SCH ×3 (08:53→20:34)
[2022-04-18] MEDS: DULoxetine HCL 60 MG CAPSULE.DR PO SCH (08:54)
[2022-04-18] MEDS: FAMOTIDINE 20 MG TAB PO SCH ×2 (08:54→20:34)
--- NOTE | 2022-04-18 13:30 | P.HPIM ---
History of Present Illness H&P Date: 04/18/22 History of present illness; patient is a 51-year-old lady with past medical history significant for gastroparesis, kidney stone presented to the ER because of right-sided abdominal pain. Patient stated that this abdominal pain started 3 days ago and is progressively getting worse. Patient describes pain as being sharp, intermittent in nature. It was initially associated nausea and vomiting. No blood in the vomitus. There was no change in patient with bowel movements, for patient normal is going once or twice a week.Initial lab work showed sodium of 139, potassium 4.1, chloride 107, carbon dioxide 28, anion gap 4, BUN 18, creatinine 0.87. X abdominal showed no acute intra-abdominal process CT abdominal pelvis was negative for any acute intercurrent pathology, no renal stones or obstruction. Patient was admitted to hospitalist service for further evaluation and treatment. REVIEW OF SYSTEMS: CONSTITUTIONAL: No fever, no malaise, no fatigue. HEENT: No recent visual problems or hearing problems. Denied any sore throat. CARDIOVASCULAR: No chest pain, orthopnea, PND, no palpitations, no syncope. PULMONARY: No shortness of breath, no cough, no hemoptysis. GASTROINTESTINAL As mentioned in HPI NEUROLOGICAL: No headaches, no weakness, no numbness. HEMATOLOGICAL: Denies any bleeding or petechiae. GENITOURINARY: Denies any burning micturition, frequency, or urgency. Did notice some hematuria MUSCULOSKELETAL/RHEUMATOLOGICAL: Denies any joint pain, swelling, or any muscle pain. ENDOCRINE: Denies any polyuria or polydipsia. The rest of the 14-point review of systems is negative. PHYSICAL EXAMINATION: GENERAL: The patient is alert and oriented x3, not in any acute distress. Well developed, well nourished. HEENT: Pupils are round and equally reacting to light. EOMI. No scleral icterus. No conjunctival pallor. Normocephalic, atraumatic. No pharyngeal erythema. No thyromegaly. CARDIOVASCULAR: S1 and S2 present. No murmurs, rubs, or gallops. PULMONARY: Chest is clear to auscultation, no wheezing or crackles. ABDOMEN: Soft, nontender, nondistended, normoactive bowel sounds. No palpable organomegaly. MUSCULOSKELETAL: No joint swelling or deformity. EXTREMITIES: No cyanosis, clubbing, or pedal edema. NEUROLOGICAL: Gross neurological examination did not reveal any focal deficits. SKIN: No rashes. Assessment and plan Abdominal pain History of gastroparesis History of prior kidney stones Plan; Monitor vital signs Monitor CBC Monitor CMP Continue IV fluids and continue antiemetics Continue pain management Consulted surgery for evaluation Past Medical History Past Medical History: Asthma, Diabetes Mellitus, GERD/Reflux, Hypertension, Musculoskeletal Disorder, Neurologic Disorder, Sleep Apnea/CPAP/BIPAP, Thyroid Disorder Additional Past Medical History / Comment(s): MS, back pain, DDD, optic neuritis, Gastroparesis., C-Diff (June 2018) leukopenia (sores in mouth) migraines, sleep apnea due to M.S. (no machine), sarcoidosis, cyst in stomach. , hopitalized 10/04/19 after lumbar puncture because heart rate dropped, hospitalized 10/10/19 for headache (post l.p.), states allergy to all adhesive and needs benadryl IV 50mg prior to using tape or tegaderm etc. History of Any Multi-Drug Resistant Organisms: C-DIFF Date of last positivie culture/infection: 2018 MDRO Source:: stool Past Surgical History: Bladder Surgery, Breast Surgery, Hernia Repair, Hysterectomy, Orthopedic Surgery, Tubal Ligation Additional Past Surgical History / Comment(s): rhinoplasty, bladder suspension, breast sx, morphine pump , RT KNEE SCOPE, TUMMY TUCK, Spinal cord stimulator inserted and removed. port august 2019, gastroparesis botox and EGD 11/06/2019, breast implants, gastric surgery 05/05/20, Stent placed on kidney Past Anesthesia/Blood Transfusion Reactions: Motion Sickness, Postoperative Nausea & Vomiting (PONV) Past Psychological History: No Psychological Hx Reported Smoking Status: Never smoker Past Alcohol Use History: Occasional Past Drug Use History: None Reported - Past Family History Father History Unknown: Yes Family Medical History: No Reported History Additional Family Medical History / Comment(s): . Mother History Unknown: Yes Family Medical History: No Reported History Additional Family Medical History / Comment(s): NO FAMILY HISTORY Medications and Allergies Home Medications Medication Instructions Recorded Confirmed Type Albuterol Sulfate [Proair Hfa] 2 puff INHALATION RT-Q6H PRN 09/25/04/17/22 History DULoxetine HCL [Cymbalta] 60 mg PO DAILY 01/10/17 04/17/22 History Scopolamine 1 mg/72 Hr Patch 1 patch TRANSDERM Q72H 07/07/17 04/17/22 History [TransDerm Scop] metFORMIN HCL [Glucophage] 500 mg PO BID #60 tab 02/10/18 04/17/22 Rx Levothyroxine Sodium [Synthroid] 112 mcg PO DAILY 12/05/18 04/18/22 History rOPINIRole HCL [Requip] 2 mg PO TID 12/05/18 04/17/22 History Baclofen 10 mg PO TID PRN 04/29/19 04/17/22 History Morphine Pain Pump 1 dose INTRATHECA CONTINUOUS 10/10/19 04/17/22 History Ondansetron Odt [Zofran ODT] 8 mg PO Q6H PRN 11/13/19 04/17/22 History Gabapentin [Neurontin] 100 mg PO TID 05/10/20 04/17/22 History Pantoprazole Sodium [Protonix] 40 mg PO BID 05/10/20 04/17/22 History SUMAtriptan succinate 6 mg SQ BID PRN 05/10/20 04/17/22 History methocarbamoL [Robaxin] 500 mg PO TID PRN 05/10/20 04/17/22 History Infliximab-Dyyb [Inflectra] 1 dose IV Q42D 05/23/20 04/17/22 History oxyCODONE-APAP 10-325MG [Percocet 1 tab PO BID PRN 04/17/22 04/17/22 History 10-325 mg] Allergies Allergy/AdvReac Type Severity Reaction Status Date / Time adhesive Allergy Severe Rash/Hives Verified 04/17/22 21:37 adhesive tape Allergy Severe Rash/Hives Verified 04/17/22 21:37 fentanyl Allergy Severe Rash/Hives Verified 04/17/22 21:37 from patch only latex Allergy Severe Rash/Hives Verified 04/17/22 21:37 metoclopramide [From Reglan] Allergy dystonia Verified 04/17/22 21:37 from IV Reglan prochlorperazine Allergy Unknown Verified 04/17/22 21:37 [From Compazine] Physical Exam Vitals: Vital Signs Temp Pulse Pulse Resp BP BP Pulse Ox 04/18/22 09:34 108/72 04/18/22 07:00 98.6 F 65 16 95/57 99 04/18/22 02:40 98.1 F 58 L 17 99/61 95 04/18/22 01:26 82 17 04/17/22 22:23 98.0 F 82 17 141/77 94 L 04/17/22 21:37 72 16 124/88 95 04/17/22 18:18 98.6 F 70 18 158/94 99 Intake and Output 04/17/22 04/18/22 04/18/22 22:59 06:59 14:59 Intake Total 222 Balance 222 Intake: Oral 222 Other: Voiding Method Toilet # Voids 2 Weight 90.718 kg Results CBC & Chem 7: 04/17/22 18:49 04/17/22 18:49 Labs: Abnormal Lab Results - Last 24 Hours (Table) 04/17/22 04/17/22 Range/Units 18:49 18:49 BUN 18 H (7-17) mg/dL Glucose 121 H (74-99) mg/dL Total Protein 6.2 L (6.3-8.2) g/dL Urine Protein Trace H (Negative) Urine Blood Large H (Negative) Ur Leukocyte Esterase Moderate H (Negative) Urine RBC >182 H (0-5) /hpf Urine Mucus Rare H (None) /hpf Thrombosis Risk Factor Assmnt - Choose All That Apply Each Factor Represents 1 point: Age 41-60 years, Obesity (BMI >25) Other Risk Factors: No Other congenital or acquired thrombophilia - If yes, enter type in comment: No Thrombosis Risk Factor Assessment Total Risk Factor Score: 2 Thrombosis Risk Factor Assessment Level: Low Risk
[2022-04-18] MEDS ORDERED: METOCLOPRAMIDE 5 MG/ML 2 ML VIAL IVP STA (14:12)
[2022-04-18] MEDS ORDERED: DEXAMETHASONE SOD PHOSPHATE 4 MG/ML 1 ML VIAL IVP STA (14:40)
[2022-04-18] MEDS ORDERED: DEXTROSE 50% SYRINGE 50 ML IVP PRN ×2 (16:29)
[2022-04-18 17:38] LABS: Glucose,Whole Blood 105 mg/dL (70-110)
[2022-04-18] MEDS: INSULIN ASPART (NovoLOG) 100 UNIT/ML VIAL SQ SCH ×2 (17:40→20:38)
--- NOTE | 2022-04-18 18:53 | P.GSCN ---
History of Present Illness Consult date: 04/18/22 Reason for Consult: Abdominal pain History of present illness: This a 51-year-old female. Patient has history of chronic pain. She has a pain pump inserted on her right abdominal wall. Patient states that she had some bloody urine. She is also states that she had some diarrhea recently. Currently states he has pain throughout her abdomen. Which radiates up to her neck. Past Medical History Past Medical History: Asthma, Diabetes Mellitus, GERD/Reflux, Hypertension, Musculoskeletal Disorder, Neurologic Disorder, Sleep Apnea/CPAP/BIPAP, Thyroid Disorder Additional Past Medical History / Comment(s): MS, back pain, DDD, optic neuritis, Gastroparesis., C-Diff (June 2018) leukopenia (sores in mouth) migraines, sleep apnea due to M.S. (no machine), sarcoidosis, cyst in stomach. , hopitalized 10/04/19 after lumbar puncture because heart rate dropped, hospitalized 10/10/19 for headache (post l.p.), states allergy to all adhesive and needs benadryl IV 50mg prior to using tape or tegaderm etc. History of Any Multi-Drug Resistant Organisms: C-DIFF Year Discovered:: 2018 MDRO Source:: stool Past Surgical History: Bladder Surgery, Breast Surgery, Hernia Repair, Hys terectomy, Orthopedic Surgery, Tubal Ligation Additional Past Surgical History / Comment(s): rhinoplasty, bladder suspension, breast sx, morphine pump , RT KNEE SCOPE, TUMMY TUCK, Spinal cord stimulator inserted and removed. port august 2019, gastroparesis botox and EGD 11/06/2019, breast implants, gastric surgery 05/05/20, Stent placed on kidney Past Anesthesia/Blood Transfusion Reactions: Motion Sickness, Postoperative Nausea & Vomiting (PONV) Past Psychological History: No Psychological Hx Reported Smoking Status: Never smoker Past Alcohol Use History: Occasional Past Drug Use History: None Reported - Past Family History Father History Unknown: Yes Family Medical History: No Reported History Additional Family Medical History / Comment(s): . Mother History Unknown: Yes Family Medical History: No Reported History Additional Family Medical History / Comment(s): NO FAMILY HISTORY Medications and Allergies Home Medications Medication Instructions Recorded Confirmed Type Albuterol Sulfate [Proair Hfa] 2 puff INHALATION RT-Q6H PRN 09/25/04/17/22 History DULoxetine HCL [Cymbalta] 60 mg PO DAILY 01/10/17 04/17/22 History Scopolamine 1 mg/72 Hr Patch 1 patch TRANSDERM Q72H 07/07/17 04/17/22 History [TransDerm Scop] metFORMIN HCL [Glucophage] 500 mg PO BID #60 tab 02/10/18 04/17/22 Rx Levothyroxine Sodium [Synthroid] 112 mcg PO DAILY 12/05/18 04/18/22 History rOPINIRole HCL [Requip] 2 mg PO TID 12/05/18 04/17/22 History Baclofen 10 mg PO TID PRN 04/29/19 04/17/22 History Morphine Pain Pump 1 dose INTRATHECA CONTINUOUS 10/10/19 04/17/22 History Ondansetron Odt [Zofran ODT] 8 mg PO Q6H PRN 11/13/19 04/17/22 History Gabapentin [Neurontin] 100 mg PO TID 05/10/20 04/17/22 History Pantoprazole Sodium [Protonix] 40 mg PO BID 05/10/20 04/17/22 History SUMAtriptan succinate 6 mg SQ BID PRN 05/10/20 04/17/22 History methocarbamoL [Robaxin] 500 mg PO TID PRN 05/10/20 04/17/22 History Infliximab-Dyyb [Inflectra] 1 dose IV Q42D 05/23/20 04/17/22 History oxyCODONE-APAP 10-325MG [Percocet 1 tab PO BID PRN 04/17/22 04/17/22 History 10-325 mg] Allergies Allergy/AdvReac Type Severity Reaction Status Date / Time adhesive Allergy Severe Rash/Hives Verified 04/17/22 21:37 adhesive tape Allergy Severe Rash/Hives Verified 04/17/22 21:37 fentanyl Allergy Severe Rash/Hives Verified 04/17/22 21:37 from patch only latex Allergy Severe Rash/Hives Verified 04/17/22 21:37 metoclopramide [From Reglan] Allergy dystonia Verified 04/17/22 21:37 from IV Reglan prochlorperazine Allergy Unknown Verified 04/17/22 21:37 [From Compazine] Surgical - Exam Vital Signs Temp Pulse Resp BP Pulse Ox 98.6 F 70 18 158/94 99 04/17/22 18:18 04/17/22 18:18 04/17/22 18:18 04/17/22 18:18 04/17/22 18:18 - General well developed, well nourished, no distress - Eyes PERRL - ENT normal pinna - Neck no masses - Respiratory normal expansion - Cardiovascular Rhythm: regular - Abdomen Mild tenderness throughout. There is no rebound or guarding. Abdomen: soft Results - Labs 04/17/22 18:49 04/17/22 18:49 Abnormal Lab Results - Last 24 Hours (Table) 04/17/22 04/17/22 Range/Units 18:49 18:49 BUN 18 H (7-17) mg/dL Glucose 121 H (74-99) mg/dL Total Protein 6.2 L (6.3-8.2) g/dL Urine Protein Trace H (Negative) Urine Blood Large H (Negative) Ur Leukocyte Esterase Moderate H (Negative) Urine RBC >182 H (0-5) /hpf Urine Mucus Rare H (None) /hpf Diabetes panel 04/17/22 Range/Units 18:49 Sodium 139 (137-145) mmol/L Potassium 4.1 (3.5-5.1) mmol/L Chloride 107 (98-107) mmol/L Carbon Dioxide 28 (22-30) mmol/L BUN 18 H (7-17) mg/dL Creatinine 0.87 (0.52-1.04) mg/dL Glucose 121 H (74-99) mg/dL Calcium 8.5 (8.4-10.2) mg/dL AST 26 (14-36) U/L ALT 23 (4-34) U/L Alkaline Phosphatase 70 (38-126) U/L Total Protein 6.2 L (6.3-8.2) g/dL Albumin 3.5 (3.5-5.0) g/dL Calcium panel 04/17/22 Range/Units 18:49 Calcium 8.5 (8.4-10.2) mg/dL Albumin 3.5 (3.5-5.0) g/dL Pituitary panel 04/17/22 Range/Units 18:49 Sodium 139 (137-145) mmol/L Potassium 4.1 (3.5-5.1) mmol/L Chloride 107 (98-107) mmol/L Carbon Dioxide 28 (22-30) mmol/L BUN 18 H (7-17) mg/dL Creatinine 0.87 (0.52-1.04) mg/dL Glucose 121 H (74-99) mg/dL Calcium 8.5 (8.4-10.2) mg/dL Adrenal panel 04/17/22 Range/Units 18:49 Sodium 139 (137-145) mmol/L Potassium 4.1 (3.5-5.1) mmol/L Chloride 107 (98-107) mmol/L Carbon Dioxide 28 (22-30) mmol/L BUN 18 H (7-17) mg/dL Creatinine 0.87 (0.52-1.04) mg/dL Glucose 121 H (74-99) mg/dL Calcium 8.5 (8.4-10.2) mg/dL Total Bilirubin 0.3 (0.2-1.3) mg/dL AST 26 (14-36) U/L ALT 23 (4-34) U/L Alkaline Phosphatase 70 (38-126) U/L Total Protein 6.2 L (6.3-8.2) g/dL Albumin 3.5 (3.5-5.0) g/dL - Imaging CT scan - abdomen: report reviewed (Report reviewed. CT is essentially negative.) Assessment and Plan Assessment: Chronic abdominal pain. Unsure of etiology this point. Patient may have adhesions. We will follow with you.
[2022-04-18 20:35] LABS: Glucose,Whole Blood 147 mg/dL (70-110)
[2022-04-19] MEDS: diphenhydrAMINE 50 MG/ML 1 ML VIAL IVP PRN ×4 (02:18→21:16)
[2022-04-19] MEDS: SODIUM CHLORIDE 0.9% 1,000 ML IV SCH ×3 (04:16→18:11)
[2022-04-19] MEDS: LEVOTHYROXINE 112 MCG TAB PO SCH (05:53)
[2022-04-19] MEDS: MORPHINE SULFATE 4 MG/ML SYRINGE IV PRN ×4 (05:53→21:16)
[2022-04-19] MEDS: INSULIN ASPART (NovoLOG) 100 UNIT/ML VIAL SQ SCH ×4 (06:36→21:15)
[2022-04-19 06:47] LABS: Glucose,Whole Blood 111 mg/dL (70-110)
[2022-04-19] MEDS: DULoxetine HCL 60 MG CAPSULE.DR PO SCH (08:50)
[2022-04-19] MEDS: GABAPENTIN 100 MG CAP PO SCH ×3 (08:51→21:17)
[2022-04-19] MEDS: FAMOTIDINE 20 MG TAB PO SCH ×2 (08:51→21:17)
[2022-04-19] MEDS: ONDANSETRON 4 MG/2 ML VIAL IVP PRN ×2 (08:52→16:50)
--- NOTE | 2022-04-19 11:21 | P.PN ---
Subjective Progress Note Date: 04/19/22 patient is a 51-year-old lady with past medical history significant for gastroparesis, kidney stone presented to the ER because of right-sided abdominal pain. Patient stated that this abdominal pain started 3 days ago and is progressively getting worse. Patient describes pain as being sharp, intermitten t in nature. It was initially associated nausea and vomiting. No blood in the vomitus. There was no change in patient with bowel movements, for patient normal is going once or twice a week.Initial lab work showed sodium of 139, potassium 4.1, chloride 107, carbon dioxide 28, anion gap 4, BUN 18, creatinine 0.87. X abdominal showed no acute intra-abdominal process CT abdominal pelvis was negative for any acute intercurrent pathology, no renal stones or obstruction. Patient was admitted to hospitalist service for further evaluation and treatment. . seen and examined. Still having abdominal pain willing to try a regular diet. Encourage patient to ambulate REVIEW OF SYSTEMS: CONSTITUTIONAL: No fever, no malaise,. CARDIOVASCULAR: No chest pain, no palpitations, no syncope. PULMONARY: No shortness of breath, no cough, GASTROINTESTINAL: Complaining of nausea. NEUROLOGICAL: No headaches, no weakness, PHYSICAL EXAMINATION: GENERAL: The patient is alert and oriented x3, not in any acute distress. Well developed, well nourished. HEENT: Pupils are round and equally reacting to light. EOMI. No scleral icterus. No conjunctival pallor. Normocephalic, atraumatic. No pharyngeal erythema. No thyromegaly. CARDIOVASCULAR: S1 and S2 present. No murmurs, rubs, or gallops. PULMONARY: Chest is clear to auscultation, no wheezing or crackles. ABDOMEN: Soft, nontender, nondistended, normoactive bowel sounds. No palpable organomegaly. MUSCULOSKELETAL: No joint swelling or deformity. EXTREMITIES: No cyanosis, clubbing, or pedal edema. NEUROLOGICAL: Gross neurological examination did not reveal any focal deficits. SKIN: No rashes. Assessment and plan Abdominal pain History of gastroparesis History of prior kidney stones [id number] diabetes mellitus Plan; Monitor vital signs Monitor CBC Monitor CMP Continue IV fluids continue antiemetics Continue pain management Advance diet to regular. Encourage ambulation Follow-up on surgery recs Objective - Vital Signs Vital signs: Vital Signs Temp 98.4 F 04/19/22 06:58 Pulse 59 L 04/19/22 08:00 Resp 16 04/19/22 08:00 BP 90/55 04/19/22 06:58 Pulse Ox 99 04/19/22 06:58 FiO2 Intake & Output 04/18/22 04/19/22 04/19/22 18:59 06:59 18:59 Intake Total 222 200 Balance 222 200 Intake: Oral 222 200 Other: Voiding Method Toilet Toilet # Voids 5 1 - Labs CBC & Chem 7: 04/17/22 18:49 04/17/22 18:49 Labs: Abnormal Lab Results - Last 24 Hours (Table) 04/17/22 04/18/22 04/19/22 Range/Units 18:49 20:32 06:34 POC Glucose (mg/dL) 147 H 111 H (70-110) mg/dL Hemoglobin A1c 6.1 H (0.0-6.0) %
[2022-04-19 11:57] LABS: Glucose,Whole Blood 133 mg/dL (70-110)
--- NOTE | 2022-04-19 16:19 | P.PN ---
Subjective Progress Note Date: 04/19/22 CHIEF COMPLAINT: Abdominal pain HISTORY OF PRESENT ILLNESS: Patient continues to report abdominal pain mostly on the right lower abdomen that radiates to her back and down her legs. She has a known history of gastroparesis. Computed tomography scan abdomen and pelvis was essentially unremarkable. She reports her last bowel movement was 4 days ago and this is not abnormal for her. Patient continues to have hematuria. Patient reports no further blood in her stools. She did have one stool with blood prior to admission Afebrile. She does report feeling hungry. Hemoglobin 11.6 PHYSICAL EXAM: VITAL SIGNS: Reviewed. GENERAL: Well-developed in no acute distress. HEENT: No sclera icterus. Extraocular movements grossly intact. Moist buccal mucosa. Head is atraumatic, normocephalic. ABDOMEN: Soft. Nondistended. Right lower quadrant tenderness NEUROLOGIC: Alert and oriented. Cranial nerves II through XII grossly intact. ASSESSMENT: 1. Chronic abdominal pain pain could be related to adhesions 2. History of gastroparesis 3. Multiple abdominal surgeries 4. Hematuria PLAN: -Agree with advancing diet to regular -Continue supportive care -No surgical intervention planned -Patient may benefit from urology consult regarding her hematuria Physician [employer] note has been reviewed by physician. Signing provider agrees with the documented findings, assessment, and plan of care. Objective - Vital Signs Vital signs: Vital Signs Temp 98.2 F 04/19/22 13:49 Pulse 76 04/19/22 13:49 Resp 12 04/19/22 13:49 BP 95/60 04/19/22 13:49 Pulse Ox 100 04/19/22 13:49 FiO2 Intake & Output 04/18/22 04/19/22 04/19/22 18:59 06:59 18:59 Intake Total 222 200 Balance 222 200 Intake: Oral 222 200 Other: Voiding Method Toilet Toilet # Voids 5 1 - Labs CBC & Chem 7: 04/17/22 18:49 04/17/22 18:49 Labs: Abnormal Lab Results - Last 24 Hours (Table) 04/17/22 04/18/22 04/19/22 Range/Units 18:49 20:32 06:34 POC Glucose (mg/dL) 147 H 111 H (70-110) mg/dL Hemoglobin A1c 6.1 H (0.0-6.0) % 04/19/22 Range/Units 11:55 POC Glucose (mg/dL) 133 H (70-110) mg/dL Hemoglobin A1c (0.0-6.0) %
[2022-04-19 17:35] LABS: Glucose,Whole Blood 105 mg/dL (70-110)
[2022-04-19 20:35] LABS: Glucose,Whole Blood 127 mg/dL (70-110)
[2022-04-20] MEDS: SODIUM CHLORIDE 0.9% 1,000 ML IV SCH ×4 (03:21→23:26)
[2022-04-20] MEDS: MORPHINE SULFATE 4 MG/ML SYRINGE IV PRN ×4 (04:02→20:30)
[2022-04-20] MEDS: ONDANSETRON 4 MG/2 ML VIAL IVP PRN ×3 (04:02→20:29)
[2022-04-20] MEDS: diphenhydrAMINE 50 MG/ML 1 ML VIAL IVP PRN ×4 (04:02→23:26)
[2022-04-20 06:04] LABS: Glucose,Whole Blood 107 mg/dL (70-110)
[2022-04-20] MEDS: LEVOTHYROXINE 112 MCG TAB PO SCH (06:17)
[2022-04-20] MEDS: INSULIN ASPART (NovoLOG) 100 UNIT/ML VIAL SQ SCH ×4 (06:26→20:13)
[2022-04-20] MEDS: FAMOTIDINE 20 MG TAB PO SCH ×2 (09:25→20:30)
[2022-04-20] MEDS: DULoxetine HCL 60 MG CAPSULE.DR PO SCH (09:25)
[2022-04-20] MEDS: GABAPENTIN 100 MG CAP PO SCH ×3 (09:26→20:30)
[2022-04-20 11:05] LABS: ALT 19 U/L (4-34); AST 26 U/L (14-36); African American GFR (CKD) 87 (>60 ml/min/1.73 sqM); Albumin 3.1 g/dL (3.5-5.0); Albumin/Globulin Ratio 1.2; Alkaline Phosphatase 66 U/L (38-126); Anion Gap 3 mmol/L; Blood Urea Nitrogen 10 mg/dL (7-17); Calcium 7.8 mg/dL (8.4-10.2); Carbon Dioxide 26 mmol/L (22-30); Chloride 111 mmol/L (98-107); Globulin 2.5 g/dL; Glucose 98 mg/dL (74-99); Non-African American GFR(CKD) 75 (>60 ml/min/1.73 sqM); Potassium 3.8 mmol/L (3.5-5.1); Sodium 140 mmol/L (137-145); Total Bilirubin 0.4 mg/dL (0.2-1.3); Total Protein 5.6 g/dL (6.3-8.2)
[2022-04-20 12:13] LABS: Glucose,Whole Blood 84 mg/dL (70-110)
[2022-04-20] MEDS ORDERED: PEG 3350 (236 GM/BTL) + LYTES 4,000 ML BOTTLE PO ONE (12:13)
--- NOTE | 2022-04-20 13:26 | P.PN ---
Subjective Progress Note Date: 04/20/22 CHIEF COMPLAINT: Abdominal pain HISTORY OF PRESENT ILLNESS: Patient continues to report abdominal pain mostly on the right lower abdomen that radiates to her back and down her legs. She has a known history of gastroparesis. Computed tomography scan abdomen and pelvis was essentially unremarkable. Patient had episode of vomiting yesterday. And reports diarrhea with no blood times one. Further discussion with medicine service patient has been having bloody stools for about one week. And they're r equesting EGD and colonoscopy. Patient also continues to have hematuria. Afebrile hemoglobin 11.6 PHYSICAL EXAM: VITAL SIGNS: Reviewed. GENERAL: Well-developed in no acute distress. HEENT: No sclera icterus. Extraocular movements grossly intact. Moist buccal mucosa. Head is atraumatic, normocephalic. ABDOMEN: Soft. Nondistended. Right lower quadrant tenderness NEUROLOGIC: Alert and oriented. Cranial nerves II through XII grossly intact. ASSESSMENT: 1. Chronic abdominal pain pain could be related to adhesions 2. History of gastroparesis 3. Multiple abdominal surgeries 4. Hematuria 5. GI bleed with bloody stools PLAN: -Patient scheduled for EGD and colonoscopy tomorrow -Start clear liquid diet -Start GoLYTELY bowel prep -Nothing by mouth after midnight -Urology following regarding hematuria Physician Quality Manager note has been reviewed by physician. Signing provider agrees with the documented findings, assessment, and plan of care. Objective - Vital Signs Vital signs: Vital Signs Temp 98.6 F 04/20/22 06:51 Pulse 60 04/20/22 08:00 Resp 16 04/20/22 08:00 BP 108/70 04/20/22 06:51 Pulse Ox 99 04/20/22 06:51 FiO2 Intake & Output 04/19/22 04/20/22 04/20/22 18:59 06:59 18:59 Intake Total 200 Balance 200 Intake: Oral 200 Other: Voiding Method Toilet Toilet Toilet # Voids 5 2 - Labs CBC & Chem 7: 04/17/22 18:49 04/20/22 10:24 Labs: Abnormal Lab Results - Last 24 Hours (Table) 04/19/22 04/20/22 Range/Units 20:33 10:24 Chloride 111 H (98-107) mmol/L POC Glucose (mg/dL) 127 H (70-110) mg/dL Calcium 7.8 L (8.4-10.2) mg/dL Total Protein 5.6 L (6.3-8.2) g/dL Albumin 3.1 L (3.5-5.0) g/dL
--- NOTE | 2022-04-20 14:43 | P.GSCN ---
History of Present Illness Consult date: 04/20/22 Reason for Consult: Hematuria Requesting physician: Darvin Sanders History of present illness: The patient is a 51-year-old female with a past medical history significant for gastroparesis, hypertension, asthma, diabetes mellitus, GERD, sleep apnea, hypothyroid, MS, DDD, and sarcoidosis. She presented to the [facility] on 04/17/22 with complaints of lower quadrant abdominal pain. She reports that the pain has been going on for 3 days and radiates to her back. The patient denies any fever, chills, pain, or shortness of breath. Since reports being chronically nauseated secondary to her gastroparesis. She has a history of chronic pain and has a pain pump inserted on her right abdominal wall. She has reported hematochezia as well as hematuria. CT abdomen and pelvis without contrast done and does not show any renal stones, obstruction, or hydronephrosis.. General surgery has been consult regarding her abdominal pain. Their plan is to do an EGD and colonoscopy tomorrow. Patient has a history of a kidney stone which required laser lithotripsy and stone basketing and a right ureteral stent placement with Dr. Dorantes in 05/24. Her stent was later removed. She also has had a bladder suspension. Review of Systems - Constitutional Denies chills, Denies fever - EENT Ears, nose, mouth and throat: Denies headache - Cardiovascular Denies chest pain, Denies shortness of breath - Respiratory Denies cough - Gastrointestinal Reports abdominal pain, Reports diarrhea, Reports nausea, Reports vomiting - Genitourinary Genitourinary: Reports flank pain, Reports urgency, Reports urinary frequency, Denies dysuria Past Medical History Past Medical History: Asthma, Diabetes Mellitus, GERD/Reflux, Hypertension, Musculoskeletal Disorder, Neurologic Disorder, Sleep Apnea/CPAP/BIPAP, Thyroid Disorder Additional Past Medical History / Comment(s): MS, back pain, DDD, optic neuritis, Gastroparesis., C-Diff (June 2018) leukopenia (sores in mouth) migraines, sleep apnea due to M.S. (no machine), sarcoidosis, cyst in stomach. , hopitalized 10/04/19 after lumbar puncture because heart rate dropped, hospitalized 10/10/19 for headache (post l.p.), states allergy to all adhesive and needs benadryl IV 50mg prior to using tape or tegaderm etc. History of Any Multi-Drug Resistant Organisms: C-DIFF Year Discovered:: 2018 MDRO Source:: stool Past Surgical History: Bladder Surgery, Breast Surgery, Hernia Repair, Hysterectomy, Orthopedic Surgery, Tubal Ligation Additional Past Surgical History / Comment(s): rhinoplasty, bladder suspension, breast sx, morphine pump , RT KNEE SCOPE, TUMMY TUCK, Spinal cord stimulator inserted and removed. port august 2019, gastroparesis botox and EGD 11/06/2019, breast implants, gastric surgery 05/05/20, Stent placed on kidney Past Anesthesia/Blood Transfusion Reactions: Motion Sickness, Postoperative Nausea & Vomiting (PONV) Past Psychological History: No Psychological Hx Reported Smoking Status: Never smoker Past Alcohol Use History: Occasional Past Drug Use History: None Reported - Past Family History Father History Unknown: Yes Family Medical History: No Reported History Additional Family Medical History / Comment(s): . Mother History Unknown: Yes Family Medical History: No Reported History Additional Family Medical History / Comment(s): NO FAMILY HISTORY Medications and Allergies Home Medications Medication Instructions Recorded Confirmed Type Albuterol Sulfate [Proair Hfa] 2 puff INHALATION RT-Q6H PRN 09/26/15 04/17/22 History DULoxetine HCL [Cymbalta] 60 mg PO DAILY 01/10/17 04/17/22 History Scopolamine 1 mg/72 Hr Patch 1 patch TRANSDERM Q72H 07/07/17 04/17/22 History [TransDerm Scop] metFORMIN HCL [Glucophage] 500 mg PO BID #60 tab 02/10/18 04/17/22 Rx Levothyroxine Sodium [Synthroid] 112 mcg PO DAILY 12/05/18 04/18/22 History rOPINIRole HCL [Requip] 2 mg PO TID 12/05/18 04/17/22 History Baclofen 10 mg PO TID PRN 04/29/19 04/17/22 History Morphine Pain Pump 1 dose INTRATHECA CONTINUOUS 10/10/19 04/17/22 History Ondansetron Odt [Zofran ODT] 8 mg PO Q6H PRN 11/13/19 04/17/22 History Gabapentin [Neurontin] 100 mg PO TID 05/10/20 04/17/22 History Pantoprazole Sodium [Protonix] 40 mg PO BID 05/10/20 04/17/22 History SUMAtriptan succinate 6 mg SQ BID PRN 05/10/20 04/17/22 History methocarbamoL [Robaxin] 500 mg PO TID PRN 05/10/20 04/17/22 History Infliximab-Dyyb [Inflectra] 1 dose IV Q42D 05/23/20 04/17/22 History oxyCODONE-APAP 10-325MG [Percocet 1 tab PO BID PRN 04/17/22 04/17/22 History 10-325 mg] Allergies Allergy/AdvReac Type Severity Reaction Status Date / Time adhesive Allergy Severe Rash/Hives Verified 04/17/22 21:37 adhesive tape Allergy Severe Rash/Hives Verified 04/17/22 21:37 fentanyl Allergy Severe Rash/Hives Verified 04/17/22 21:37 from patch only latex Allergy Severe Rash/Hives Verified 04/17/22 21:37 metoclopramide [From Reglan] Allergy dystonia Verified 04/17/22 21:37 from IV Reglan prochlorperazine Allergy Unknown Verified 04/17/22 21:37 [From Compazine] Surgical - Exam Vital Signs Temp Pulse Resp BP Pulse Ox 98.6 F 70 18 158/94 99 04/17/22 18:18 04/17/22 18:18 04/17/22 18:18 04/17/22 18:18 04/17/22 18:18 General: Well developed, well nourished. No acute distress. HEENT: Head is atraumatic, normocephalic. Mucus membranes moist. Lungs: Respirations even and nonlabored. Abdomen/GI: Soft. Nondistended Right lower quadrant tenderness. : No suprapubic tenderness. Skin: Warm and dry Neurologic: Awake, alert and oriented times 3. CN II-XII grossly intact. No focal deficits. Psychiatric: Appropriate mood and affect. Results - Labs 04/21/22 05:19 04/21/22 05:19 Abnormal Lab Results - Last 24 Hours (Table) 04/19/22 04/20/22 Range/Units 20:33 10:24 Chloride 111 H (98-107) mmol/L POC Glucose (mg/dL) 127 H (70-110) mg/dL Calcium 7.8 L (8.4-10.2) mg/dL Total Protein 5.6 L (6.3-8.2) g/dL Albumin 3.1 L (3.5-5.0) g/dL Diabetes panel 04/20/22 Range/Units 10:24 Sodium 140 (137-145) mmol/L Potassium 3.8 (3.5-5.1) mmol/L Chloride 111 H (98-107) mmol/L Carbon Dioxide 26 (22-30) mmol/L BUN 10 (7-17) mg/dL Creatinine 0.90 (0.52-1.04) mg/dL Glucose 98 (74-99) mg/dL Calcium 7.8 L (8.4-10.2) mg/dL AST 26 (14-36) U/L ALT 19 (4-34) U/L Alkaline Phosphatase 66 (38-126) U/L Total Protein 5.6 L (6.3-8.2) g/dL Albumin 3.1 L (3.5-5.0) g/dL Calcium panel 04/20/22 Range/Units 10:24 Calcium 7.8 L (8.4-10.2) mg/dL Albumin 3.1 L (3.5-5.0) g/dL Pituitary panel 04/20/22 Range/Units 10:24 Sodium 140 (137-145) mmol/L Potassium 3.8 (3.5-5.1) mmol/L Chloride 111 H (98-107) mmol/L Carbon Dioxide 26 (22-30) mmol/L BUN 10 (7-17) mg/dL Creatinine 0.90 (0.52-1.04) mg/dL Glucose 98 (74-99) mg/dL Calcium 7.8 L (8.4-10.2) mg/dL Adrenal panel 04/20/22 Range/Units 10:24 Sodium 140 (137-145) mmol/L Potassium 3.8 (3.5-5.1) mmol/L Chloride 111 H (98-107) mmol/L Carbon Dioxide 26 (22-30) mmol/L BUN 10 (7-17) mg/dL Creatinine 0.90 (0.52-1.04) mg/dL Glucose 98 (74-99) mg/dL Calcium 7.8 L (8.4-10.2) mg/dL Total Bilirubin 0.4 (0.2-1.3) mg/dL AST 26 (14-36) U/L ALT 19 (4-34) U/L Alkaline Phosphatase 66 (38-126) U/L Total Protein 5.6 L (6.3-8.2) g/dL Albumin 3.1 L (3.5-5.0) g/dL - Imaging CT scan - abdomen: report reviewed CT scan - pelvis: report reviewed Assessment and Plan Assessment: The patient complains of right lower quadrant pain that radiates to her right flank. She describes the pain as a dull ache that becomes sharp at times. She states this pain is different than she experienced with her kidney stone. She states having hematuria for approximately 6 days now. She denies any family history of renal or bladder cancer. She denies any dysuria. She does report urinary frequency and urgency. She has been afebrile, vital signs stable, and she is on room air. Urinalysis without evidence of infection. WBC 5.2, hemoglobin stable at 11.6, and creatinine 0.90. (1) Hematuria Current Visit: Yes Status: Acute Code(s): R31.9 - HEMATURIA, UNSPECIFIED SNOMED Code(s): 98092043 Plan: - Monitor hemoglobin - Will need a cystoscopy - Further recommendations to come from surgeon Impression and plan of care have been directed as dictated by the signing physician. Gladys Huggins nurse practitioner acting as scribe for signing physician. Gladys Huggins [facility] Palliative Care/Urology Spectralink [phone] Email: [email or web address] I have personally seen and examined the patient, reviewed the documentation and agree with the assessment and plan as written. Number of minutes spent on the visit: 30. I have reviewed the CT scan. There is no evidence of hydronephrosis or urolithiasis. UA shows significant microhematuria, no evidence of infection. Given her irritative voiding symptoms, she may have passed a ureteral calculus and is experiencing persistent irritative voiding symptoms. Outpatient cystoscopy will confirm the absence of intravesical pathology. Karel Bishop MD Time with Patient: Greater than 30
[2022-04-20 17:18] LABS: Glucose,Whole Blood 90 mg/dL (70-110)
--- NOTE | 2022-04-20 19:05 | P.PN ---
Progress Note - Text Progress Note Date: 04/20/22 patient is a 51-year-old lady with past medical history significant for gastroparesis, kidney stone presented to the ER because of right-sided abdominal pain. Patient stated that this abdominal pain started 3 days ago and is progressively getting worse. Patient describes pain as being sharp, intermittent in nature. It was initially associated nausea and vomiting. No blood in the vomitus. There was no change in patient with bowel movements, for patient normal is going once or twice a week.Initial lab work showed sodium of 139, potassium 4.1, chloride 107, carbon dioxide 28, anion gap 4, BUN 18, creatinine 0.87. X abdominal showed no acute intra-abdominal process CT abdominal pelvis was negative for any acute intercurrent pathology, no renal stones or obstruction. Patient was admitted to hospitalist service for further evaluation and treatment. 04/20/2022: I assumed care of the patient today. She informed be that patient had maroon stool for about a week prior to coming in. Including abdominal pain. Had nausea vomiting last night. Discussed with Janie from surgery. She called back to me that patient proceed with EGD colonoscopy. Urology was also consulted. Active Medications Acetaminophen (Acetaminophen Tab 325 Mg Tab) 650 mg PO Q6HR PRN PRN Reason: Mild Pain or Fever > 100.5 Albuterol Sulfate (Albuterol Nebulized 2.5 Mg/3 Ml) 2.5 mg INHALATION RT-Q6H PRN PRN Reason: Shortness Of Breath Baclofen (Baclofen 10 Mg Tab) 10 mg PO TID PRN PRN Reason: Muscle Pain Dextrose/Water (Dextrose 50% Syringe 50 Ml) 25 ml IVP PER PROTOCOL PRN; Protocol PRN Reason: Hypoglycemia Dextrose/Water (Dextrose 50% Syringe 50 Ml) 50 ml IVP PER PROTOCOL PRN; Protocol PRN Reason: Hypoglycemia Diphenhydramine HCl (Diphenhydramine 50 Mg/Ml 1 Ml Vial) 25 mg IVP Q6HR PRN PRN Reason: Allergy Symptoms Last Admin: 04/20/22 16:13 Dose: 25 mg Duloxetine HCl (Duloxetine Hcl 60 Mg Capsule.Dr) 60 mg PO DAILY [facility] Last Admin: 04/20/22 09:25 Dose: 60 mg Famotidine (Famotidine 20 Mg Tab) 20 mg PO BID [facility] Last Admin: 04/20/22 09:25 Dose: 20 mg Gabapentin (Gabapentin 100 Mg Cap) 100 mg PO TID [facility] Last Admin: 04/20/22 16:13 Dose: 100 mg Sodium Chloride (Saline 0.9%) 1,000 mls @ 130 mls/hr IV .Q7H42M [facility] Last Admin: 04/20/22 17:34 Dose: Not Given Insulin Aspart (Insulin Aspart (Novolog) 100 Unit/Ml Vial) 0 unit SQ ACHS [facility]; Protocol Last Admin: 04/20/22 17:28 Dose: Not Given Levothyroxine Sodium (Levothyroxine 112 Mcg Tab) 112 mcg PO DAILY@0630 [facility] Last Admin: 04/20/22 06:17 Dose: 112 mcg Methocarbamol (Methocarbamol 500 Mg Tab) 500 mg PO TID PRN PRN Reason: Muscle Pain Morphine Sulfate (Morphine Sulfate 4 Mg/Ml Syringe) 4 mg IV Q4HR PRN PRN Reason: Severe Pain (Scale 7 to 10) Last Admin: 04/20/22 16:13 Dose: 4 mg Naloxone HCl (Naloxone 0.4 Mg/Ml 1 Ml Vial) 0.2 mg IV Q2M PRN PRN Reason: Opioid Reversal Ondansetron HCl (Ondansetron 4 Mg/2 Ml Vial) 4 mg IVP Q8HR PRN PRN Reason: Nausea And Vomiting Last Admin: 04/20/22 12:19 Dose: 4 mg Ropinirole HCl (Ropinirole Hcl 1 Mg Tab) 2 mg PO TID [facility] Last Admin: 04/20/22 16:14 Dose: 2 mg INVESTIGATIONS, reviewed in the clinical context: Sodium 140 potassium 3.8 creatinine 0.90 Computed tomography scan abdomen and pelvis: Negative for renal stone. No obstruction. Assessment and plan: -Acute GI bleed. Patient complained of maroon stool for about a week prior to coming in. Has had endoscopies a while ago.: New diagnosis EGD coloscopy by Dr. Denney. Follow CBC. -Sarcoidosis. IV inflecta every 42 days -Diabetes mellitus type 2 on oral hypoglycemic. Follow Accu-Cheks and sliding scale -Gastroparesis- had pylorus release surgery at [facility]. -GERD Protonix 40 mg twice a day -Obstructive sleep apnea -Hypothyroid Synthroid 112 -Multiple sclerosis Baclofen -Chronic restless legs syndrome Requip -Optic neuritis -Chronic pain syndrome patient does have a morphine pain pump [facility]
[2022-04-20 20:08] LABS: Glucose,Whole Blood 96 mg/dL (70-110)
[2022-04-21] MEDS: MORPHINE SULFATE 4 MG/ML SYRINGE IV PRN ×4 (02:04→16:01)
[2022-04-21 02:09] LABS: Glucose,Whole Blood 87 mg/dL (70-110)
[2022-04-21] MEDS: diphenhydrAMINE 50 MG/ML 1 ML VIAL IVP PRN ×3 (05:25→20:45)
[2022-04-21] MEDS: ONDANSETRON 4 MG/2 ML VIAL IVP PRN ×2 (05:25→15:41)
[2022-04-21 05:50] LABS: Basophils % (A) 1 %; Eosinophils # (A) 0.2 k/uL (0-0.7); Eosinophils % (A) 4 %; HCT 33.4 % (34.0-46.0); HGB 10.5 gm/dL (11.4-16.0); Lymphocytes # (A) 2.4 k/uL (1.0-4.8); Lymphocytes % (A) 51 %; MCH 27.6 pg (25.0-35.0); MCHC 31.4 g/dL (31.0-37.0); Mean Platelet Volume 7.4; Monocytes # (A) 0.3 k/uL (0-1.0); Monocytes % (A) 6 %; Neutrophils # (A) 1.7 k/uL (1.3-7.7); Neutrophils % (A) 36 %; Platelet Count 219 k/uL (150-450); RBC 3.79 m/uL (3.80-5.40); RDW 13.7 % (11.5-15.5); WBC 4.7 k/uL (3.8-10.6)
[2022-04-21] MEDS: INSULIN ASPART (NovoLOG) 100 UNIT/ML VIAL SQ SCH ×4 (05:50→20:24)
[2022-04-21 05:51] LABS: Glucose,Whole Blood 79 mg/dL (70-110)
[2022-04-21 06:09] LABS: African American GFR (CKD) >90 (>60 ml/min/1.73 sqM); Anion Gap 2 mmol/L; Blood Urea Nitrogen 7 mg/dL (7-17); Carbon Dioxide 30 mmol/L (22-30); Chloride 108 mmol/L (98-107); Glucose 85 mg/dL (74-99); Non-African American GFR(CKD) 80 (>60 ml/min/1.73 sqM); Potassium 3.7 mmol/L (3.5-5.1); Sodium 140 mmol/L (137-145)
[2022-04-21] MEDS: LEVOTHYROXINE 112 MCG TAB PO SCH (06:21)
[2022-04-21] MEDS: SODIUM CHLORIDE 0.9% 1,000 ML IV SCH ×2 (06:24→17:50)
[2022-04-21] MEDS: GABAPENTIN 100 MG CAP PO SCH ×3 (08:51→20:45)
[2022-04-21] MEDS: FAMOTIDINE 20 MG TAB PO SCH ×2 (08:52→20:44)
[2022-04-21] MEDS: DULoxetine HCL 60 MG CAPSULE.DR PO SCH (08:52)
[2022-04-21] MEDS ORDERED: KETOROLAC 15 MG/ML 1 ML VIAL IVP STA (09:07)
[2022-04-21] MEDS ORDERED: IV FLUID CONTINUATION 1,000 ML IV ONE (11:21)
[2022-04-21] MEDS ORDERED: LIDOCAINE 2% INJ 20 MG/ML (2 ML VIAL) ONE (11:22)
[2022-04-21] MEDS ORDERED: PROPOFOL 10 MG/ML 20 ML VIAL IV ONE (11:22)
--- NOTE | 2022-04-21 11:47 | P.OP ---
Date of Procedure: 04/21/22 Preoperative Diagnosis: Abdominal pain Postoperative Diagnosis: Antral gastritis Small hiatal hernia Mild esophagitis Gastroparesis Normal colon Procedure(s) Performed: EGD Colonoscopy Anesthesia: MAC Surgeon: Skyler Denney Pathology: other (Antrum, esophagus) Condition: stable Disposition: PACU Description of Procedure: The patient's placed on the endoscopy table in the lateral position. She received IV sedation. The gastroscope placed oropharynx passed in the esophagus and stomach. Scope was placed through the pylorus. The first and second portion of the duodenum appeared normal. Scope was then brought back the antrum this appeared mildly inflamed. Biopsies performed. There is evidence of gastroparesis. There is present 200 mL of this fluid in the stomach. Scope was retroflexed and the remainder of the stomach appeared normal. There was a small hiatal hernia. The GE junction was at 39 7 is. The distal esophagus was mildly inflamed. A biopsies performed. The proximal esophagus appeared normal. Scope was withdrawn for patient. Next digital rectal exam was performed. The flexible colonoscope was then placed patient anus and passed throughout the entire colon. There is a poor colonic prep there was a large amount liquid stool the colon. The ileocecal valve was visualized. The cecum, ascending and transverse colon appeared normal. The descending and sigmoid colon appeared normal. Scope summer back the rectum and this appeared normal. Scope withdrawn for patient.
[2022-04-21 12:01] LABS: Glucose,Whole Blood 83 mg/dL (70-110)
--- NOTE | 2022-04-21 13:23 | P.PN ---
Subjective Progress Note Date: 04/21/22 Principal diagnosis: Hematuria The patient is a 51-year-old female with a past medical history significant for gastroparesis, hypertension, asthma, diabetes mellitus, GERD, sleep apnea, hypothyroid, MS, DDD, and sarcoidosis. She presented to the emergency department on 04/17/22 with complaints of lower quadrant abdominal pain. She reports that the pain has been going on for 3 days and radiates to her back. The patient denies any fever, chills, pain, or shortness of breath. Since reports being chronically nauseated secondary to her gastroparesis. She has a history of chronic pain and has a pain pump inserted on her right abdominal wall. She has reported hematochezia as well as hematuria. CT abdomen and pelvis without contrast done and does not show any renal stones, obstruction, or hydronephrosis.. General surgery has been consult regarding her abdominal pain. Their plan is to do an EGD and colonoscopy. Objective - Vital Signs Vital signs: Vital Signs Temp 98.0 F 04/21/22 08:00 Pulse 55 L 04/21/22 08:00 Resp 17 04/21/22 08:00 BP 111/70 04/21/22 08:00 Pulse Ox 94 L 04/21/22 08:00 FiO2 Intake & Output 04/20/22 04/21/22 04/21/22 18:59 06:59 18:59 Intake Total 0 100 Balance 0 100 Intake: IV 100 Oral 0 Other: Voiding Method Toilet Toilet # Voids 5 2 # Bowel Movements 2 - Exam General: Well developed, well nourished. No acute distress. HEENT: Head is atraumatic, normocephalic. Mucus membranes moist. Lungs: Respirations even and nonlabored. Abdomen/GI: Soft. Nondistended Right lower quadrant tenderness. : No suprapubic tenderness. Skin: Warm and dry Neurologic: Awake, alert and oriented times 3. CN II-XII grossly intact. No focal deficits. Psychiatric: Appropriate mood and affect. - Labs CBC & Chem 7: 04/21/22 05:19 04/21/22 05:19 Labs: Abnormal Lab Results - Last 24 Hours (Table) 04/21/22 04/21/22 Range/Units 05:19 05:19 RBC 3.79 L (3.80-5.40) m/uL Hgb 10.5 L (11.4-16.0) gm/dL Hct 33.4 L (34.0-46.0) % Chloride 108 H (98-107) mmol/L Calcium 8.0 L (8.4-10.2) mg/dL Assessment and Plan Assessment: The patient has s/p EGD and colonoscopy with findings of gastroparesis, mild esophagitis, small hiatal hernia, antral gastritis, and a normal colon. The patient reports continue right abdominal pain that radiates to her back. She continues to have hematuria, urinary urgency, and frequency. She has been afebrile, vital signs stable, and she is on room air. There is no evidence of urinary tract infection. She is to follow up with Dr. Dorantes in our office in 2 weeks for an outpatient cystoscopy to confirm the absence of intravesical pathology. From a urological standpoint the patient may be discharged. (1) Hematuria Current Visit: Yes Status: Acute Code(s): R31.9 - HEMATURIA, UNSPECIFIED SNOMED Code(s): 37367888 Plan: - Will need an outpatient cystoscopy Impression and plan of care have been directed as dictated by the signing physician. Gladys Huggins nurse practitioner acting as scribe for signing physician. Gladys Huggins [facility] Palliative Care/Urology Spectralink [id number] Email: [email or web address] I have personally seen and examined the patient, reviewed the documentation and agree with the assessment and plan as written. Number of minutes spent on the visit: 15. Karel Bishop MD
--- NOTE | 2022-04-21 16:38 | P.PN ---
Progress Note - Text Progress Note Date: 04/21/22 patient is a 51-year-old lady with past medical history significant for gastroparesis, kidney stone presented to the ER because of right-sided abdominal pain. Patient stated that this abdominal pain started 3 days ago and is progressively getting worse. Patient describes pain as being sharp, intermittent in nature. It was initially associated nausea and vomiting. No blood in the vomitus. There was no change in patient with bowel movements, for patient normal is going once or twice a week.Initial lab work showed sodium of 139, potassium 4.1, chloride 107, carbon dioxide 28, anion gap 4, BUN 18, creatinine 0.87. X abdominal showed no acute intra-abdominal process CT abdominal pelvis was negative for any acute intercurrent pathology, no renal stones or obstruction. Patient was admitted to hospitalist service for further evaluation and treatment. 04/20/2022: I assumed care of the patient today. She informed be that patient had maroon stool for about a week prior to coming in. Including abdominal pain. Had nausea vomiting last night. Discussed with Janie from surgery. She called back to me that patient proceed with EGD colonoscopy. Urology was also consulted. 04/21/2022: Patient underwent EGD colonoscopy today. Found of antral gastritis mild esophagitis and gastroparesis. Normal colon. Postprocedure patient is having gas pains. Having bowel spasm from air. IV morphine discontinued. Order patient to sit up in a chair. Soft diet. Increase activity in the hallw ay. Active Medications Acetaminophen (Acetaminophen Tab 325 Mg Tab) 650 mg PO Q6HR PRN PRN Reason: Mild Pain or Fever > 100.5 Albuterol Sulfate (Albuterol Nebulized 2.5 Mg/3 Ml) 2.5 mg INHALATION RT-Q6H PRN PRN Reason: Shortness Of Breath Baclofen (Baclofen 10 Mg Tab) 10 mg PO TID PRN PRN Reason: Muscle Pain Dextrose/Water (Dextrose 50% Syringe 50 Ml) 25 ml IVP PER PROTOCOL PRN; Protocol PRN Reason: Hypoglycemia Dextrose/Water (Dextrose 50% Syringe 50 Ml) 50 ml IVP PER PROTOCOL PRN; Protocol PRN Reason: Hypoglycemia Dicyclomine HCl (Dicyclomine 10 Mg Cap) 10 mg PO QID [facility] Diphenhydramine HCl (Diphenhydramine 50 Mg/Ml 1 Ml Vial) 25 mg IVP Q6HR PRN PRN Reason: Allergy Symptoms Last Admin: 04/21/22 13:31 Dose: 25 mg Duloxetine HCl (Duloxetine Hcl 60 Mg Capsule.) 60 mg PO DAILY [facility] Last Admin: 04/21/22 08:52 Dose: 60 mg Famotidine (Famotidine 20 Mg Tab) 20 mg PO BID [facility] Last Admin: 04/21/22 08:52 Dose: 20 mg Gabapentin (Gabapentin 100 Mg Cap) 100 mg PO TID [facility] Last Admin: 04/21/22 15:41 Dose: 100 mg Sodium Chloride (Saline 0.9%) 1,000 mls @ 130 mls/hr IV .Q7H42M [facility] Last Admin: 04/21/22 06:24 Dose: 130 mls/hr Insulin Aspart (Insulin Aspart (Novolog) 100 Unit/Ml Vial) 0 unit SQ ACHS [facility]; Protocol Last Admin: 04/21/22 12:28 Dose: Not Given Levothyroxine Sodium (Levothyroxine 112 Mcg Tab) 112 mcg PO DAILY@0630 [facility] Last Admin: 04/21/22 06:21 Dose: 112 mcg Methocarbamol (Methocarbamol 500 Mg Tab) 500 mg PO TID PRN PRN Reason: Muscle Pain Naloxone HCl (Naloxone 0.4 Mg/Ml 1 Ml Vial) 0.2 mg IV Q2M PRN PRN Reason: Opioid Reversal Ondansetron HCl (Ondansetron 4 Mg/2 Ml Vial) 4 mg IVP Q8HR PRN PRN Reason: Nausea And Vomiting Last Admin: 04/21/22 15:41 Dose: 4 mg Ropinirole HCl (Ropinirole Hcl 1 Mg Tab) 2 mg PO TID [facility] Last Admin: 04/21/22 15:41 Dose: 2 mg INVESTIGATIONS, reviewed in the clinical context: Sodium 140 potassium 3.8 creatinine 0.90 Computed tomography scan abdomen and pelvis: Negative for renal stone. No obstruction. Assessment and plan: -Acute GI bleed. Patient complained of maroon stool for about a week prior to coming in. EGD coloscopy done today by Dr. Denney. Found to have gastritis and esophagitis.: Normal -Sarcoidosis. IV inflecta every 42 days -Bowel spasms with nausea DC morphine. Add Bentyl. K pad. Increase activity. -Diabetes mellitus type 2 on oral hypoglycemic. Follow Accu-Cheks and sliding scale -Gastroparesis- had pylorus release surgery at [facility]. -GERD Protonix 40 mg twice a day -Obstructive sleep apnea -Hypothyroid Synthroid 112 -Multiple sclerosis Baclofen -Chronic restless legs syndrome Requip -Optic neuritis -Chronic pain syndrome patient does have a morphine pain pump being followed by Kyle Moran -Full code Start soft diet. DC IV morphine. Add Bentyl. K pad. Decreased activity. Hopefully discharge tomorrow.
[2022-04-21] MEDS: DICYCLOMINE 10 MG CAP PO SCH ×2 (17:01→20:44)
[2022-04-21 17:26] LABS: Glucose,Whole Blood 124 mg/dL (70-110)
[2022-04-21 20:17] LABS: Glucose,Whole Blood 122 mg/dL (70-110)
[2022-04-21] MEDS: BACLOFEN 10 MG TAB PO PRN (20:44)
[2022-04-21] MEDS: methocarbamoL 500 MG TAB PO PRN (20:54)
[2022-04-22] MEDS: SODIUM CHLORIDE 0.9% 1,000 ML IV SCH ×2 (02:05→08:06)
[2022-04-22] MEDS: diphenhydrAMINE 50 MG/ML 1 ML VIAL IVP PRN ×2 (02:17→08:05)
[2022-04-22 02:32] LABS: Glucose,Whole Blood 94 mg/dL (70-110)
[2022-04-22 05:48] LABS: Glucose,Whole Blood 105 mg/dL (70-110)
[2022-04-22] MEDS: LEVOTHYROXINE 112 MCG TAB PO SCH (06:30)
[2022-04-22] MEDS: BACLOFEN 10 MG TAB PO PRN (06:30)
[2022-04-22] MEDS: methocarbamoL 500 MG TAB PO PRN (06:33)
[2022-04-22 06:34] LABS: Glucose,Whole Blood 87 mg/dL (70-110)
[2022-04-22] MEDS: INSULIN ASPART (NovoLOG) 100 UNIT/ML VIAL SQ SCH (06:36)
[2022-04-22 08:05] VITALS: BP 146/91; PULSE 67; RESP 16; TEMP 98.1
[2022-04-22] MEDS: ONDANSETRON 4 MG/2 ML VIAL IVP PRN (08:05)
[2022-04-22] MEDS: DICYCLOMINE 10 MG CAP PO SCH (08:06)
[2022-04-22] MEDS: DULoxetine HCL 60 MG CAPSULE.DR PO SCH (08:06)
[2022-04-22] MEDS: GABAPENTIN 100 MG CAP PO SCH (08:06)
[2022-04-22] MEDS: FAMOTIDINE 20 MG TAB PO SCH (08:06)
--- NOTE | 2022-04-22 13:08 | P.PN ---
Subjective Progress Note Date: 04/22/22 CHIEF COMPLAINT: Abdominal pain HISTORY OF PRESENT ILLNESS: Patient complaining of headache. Patient requesting to be discharged. Patient had EGD and colonoscopy revealing gastritis, hiatal hernia and gastroparesis with normal colon. She tolerated diet. Patient did not have any further BMs. Hemoglobin stable at 10.5 PHYSICAL EXAM: VITAL SIGNS: Reviewed. GENERAL: Well-developed in no acute distress. HEENT: No sclera icterus. Extraocular movements grossly intact. Moist buccal mucosa. Head is atraumatic, normocephalic. ABDOMEN: Soft. Nondistended. NEUROLOGIC: Alert and oriented. Cranial nerves II through XII grossly intact. ASSESSMENT: 1. Chronic abdominal pain pain could be related to adhesions 2. History of gastroparesis 3. Multiple abdominal surgeries 4. Hematuria 5. GI bleed with bloody stools PLAN: -Patient is stable for discharge from surgical standpoint Physician Boat Outfitter note has been reviewed by physician. Signing provider agrees with the documented findings, assessment, and plan of care. Objective - Vital Signs Vital signs: Vital Signs Temp 98.1 F 04/22/22 08:00 Pulse 67 04/22/22 08:00 Resp 16 04/22/22 08:00 BP 146/91 04/22/22 08:00 Pulse Ox 98 04/22/22 08:00 FiO2 Intake & Output 04/21/22 04/22/22 04/22/22 18:59 06:59 18:59 Intake Total 100 59 Balance 100 59 Intake: IV 100 Oral 59 Other: Voiding Method Toilet Toilet # Voids 1 1 # Bowel Movements 4 - Labs CBC & Chem 7: 04/21/22 05:19 04/21/22 05:19 Labs: Abnormal Lab Results - Last 24 Hours (Table) 04/21/22 04/21/22 Range/Units 17:25 20:15 POC Glucose (mg/dL) 124 H 122 H (70-110) mg/dL
--- NOTE | 2022-04-22 18:53 | P.DS ---
Providers Date of admission: 04/19/22 11:14 Expected date of discharge: 04/22/22 Attending physician: José Ferreira Consults: 04/17/22 21:09 Consult Physician Routine Consulting Provider: Skyler Denney Consult Reason/Comments: abdominal pain Do you want consulting provider notified?: Yes 04/20/22 08:45 Consult Physician Routine Consulting Provider: Fabian Dorantes Consult Reason/Comments: hematurea Do you want consulting provider notified?: Yes Primary care physician: [facility] Course: patient is a 51-year-old lady with past medical history significant for gastroparesis, kidney stone presented to the ER because of right-sided abdominal pain. Patient stated that this abdominal pain started 3 days ago and is progressively getting worse. Patient describes pain as being sharp, intermittent in nature. It was initially associated nausea and vomiting. No blood in the vomitus. There was no change in patient with bowel movements, for patient normal is going once or twice a week.Initial lab work showed sodium of 139, potassium 4.1, chloride 107, carbon dioxide 28, anion gap 4, BUN 18, creatinine 0.87. X abdominal showed no acute intra-abdominal process CT abdominal pelvis was negative for any acute intercurrent pathology, no renal stones or obstruction. Patient was admitted to hospitalist service for further evaluation and treatment. 04/20/2022: I assumed care of the patient today. She informed be that patient had maroon stool for about a week prior to coming in. Including abdominal pain. Had nausea vomiting last night. Discussed with Janie from surgery. She called back to me that patient proceed with EGD colonoscopy. Urology was also consulted. 04/21/2022: Patient underwent EGD colonoscopy today. Found of antral gastritis mild esophagitis and gastroparesis. Normal colon. Postprocedure patient is having gas pains. Having bowel spasm from air. IV morphine discontinued. Order patient to sit up in a chair. Soft diet. Increase activity in the hallway. 04/22/2022: Care was discussed length with the patient and at the bedside. She does not wish to continue with Bentyl. She will continue with the home dose of Percocet and the morphine pain pump per Dr. Oliver. I did recommend to add mindfulness and other modalities of pain control. Patient does not wish to use the same. Patient will also follow-up with her tire mechanic at [facility]. INVESTIGATIONS, reviewed in the clinical context: Sodium 140 potassium 3.8 creatinine 0.90 Computed tomography scan abdomen and pelvis: Negative for renal stone. No obstruction. Assessment and plan: -Acute GI bleed. Patient complained of maroon stool for about a week prior to coming in. EGD coloscopy by Dr. Denney. Found to have gastritis and esophagitis.: Normal -Sarcoidosis. IV inflecta every 42 days -Bowel spasms with nausea: Better K pad. Increase activity. -Diabetes mellitus type 2 on oral hypoglycemic. Follow Accu-Cheks and sliding scale -Gastroparesis- had pylorus release surgery at [facility]. Follow-up with her tire mechanic at [facility]. Because prior blood clot gastric pacemaker could not be placed. Recommended to follow up at [facility] -GERD Protonix 40 mg twice a day -Obstructive sleep apnea -Hypothyroid Synthroid 112 -Multiple sclerosis Baclofen -Chronic restless legs syndrome Requip -Optic neuritis -Chronic pain syndrome patient does have a morphine pain pump being followed by Kyle Moran -Full code Disposition: Home Plan - Discharge Summary Discharge Rx Participant: No New Discharge Prescriptions: Continue Albuterol Sulfate [Proair Hfa] 2 puff INHALATION RT-Q6H PRN PRN Reason: Shortness Of Breath DULoxetine HCL [Cymbalta] 60 mg PO DAILY Scopolamine 1 mg/72 Hr Patch [TransDerm Scop] 1 patch TRANSDERM Q72H metFORMIN HCL [Glucophage] 500 mg PO BID #60 tab rOPINIRole HCL [Requip] 2 mg PO TID Levothyroxine Sodium [Synthroid] 112 mcg PO DAILY Baclofen 10 mg PO TID PRN PRN Reason: Muscle Pain Morphine Pain Pump 1 dose INTRATHECA CONTINUOUS Ondansetron Odt [Zofran ODT] 8 mg PO Q6H PRN PRN Reason: Nausea Gabapentin [Neurontin] 100 mg PO TID methocarbamoL [Robaxin] 500 mg PO TID PRN PRN Reason: Muscle Pain Pantoprazole Sodium [Protonix] 40 mg PO BID SUMAtriptan succinate 6 mg SQ BID PRN PRN Reason: Migraine Headache Infliximab-Dyyb [Inflectra] 1 dose IV Q42D oxyCODONE-APAP 10-325MG [Percocet 10-325 mg] 1 tab PO BID PRN PRN Reason: Pain Discharge Medication List Albuterol Sulfate [Proair Hfa] 2 puff INHALATION RT-Q6H PRN 09/26/15 [History] DULoxetine HCL [Cymbalta] 60 mg PO DAILY 01/10/17 [History] Scopolamine 1 mg/72 Hr Patch [TransDerm Scop] 1 patch TRANSDERM Q72H 07/07/17 [History] metFORMIN HCL [Glucophage] 500 mg PO BID #60 tab 02/10/18 [Rx] Levothyroxine Sodium [Synthroid] 112 mcg PO DAILY 12/05/18 [History] rOPINIRole HCL [Requip] 2 mg PO TID 12/05/18 [History] Baclofen 10 mg PO TID PRN 04/29/19 [History] Morphine Pain Pump 1 dose INTRATHECA CONTINUOUS 10/10/19 [History] Ondansetron Odt [Zofran ODT] 8 mg PO Q6H PRN 11/13/19 [History] Gabapentin [Neurontin] 100 mg PO TID 05/10/20 [History] Pantoprazole Sodium [Protonix] 40 mg PO BID 05/10/20 [History] SUMAtriptan succinate 6 mg SQ BID PRN 05/10/20 [History] methocarbamoL [Robaxin] 500 mg PO TID PRN 05/10/20 [History] Infliximab-Dyyb [Inflectra] 1 dose IV Q42D 05/23/20 [History] oxyCODONE-APAP 10-325MG [Percocet 10-325 mg] 1 tab PO BID PRN 04/17/22 [History] Follow up Appointment(s)/Referral(s): Fabian Dorantes MD [STAFF PHYSICIAN] - 2 Weeks Abdi Taylor MD [Primary Care Provider] - 1-2 days Activity/Diet/Wound Care/Special Instructions: Follow up with Dr. Dorantes for office cystoscopy in 2 weeks. Discharge Disposition: HOME SELF-CARE
== END 2022-04-22 12:05 | disposition home or self-care (01) | DRG 378 ==
LOC: EC 18:17 → 6NMEDSUR 21:09 → OBSVTOIN 04-19 11:14
PROVIDERS: ADMIT Hospitalist; ATTEND Hospitalist
PROC: 0DJD8ZZ Inspection of Lower Intestinal Tract, Via Natural or Artificial Opening Endoscopic (ICD-10-PCS; 2022-04-21)
PROC: 0DB38ZX Excision of Lower Esophagus, Via Natural or Artificial Opening Endoscopic, Diagnostic (ICD-10-PCS; principal; 2022-04-21 10:25)
PROC: 0DB78ZX Excision of Stomach, Pylorus, Via Natural or Artificial Opening Endoscopic, Diagnostic (ICD-10-PCS; 2022-04-21 10:25)
DX: K92.2 Gastrointestinal hemorrhage, unspecified (principal); H46.9 Unspecified optic neuritis; E11.43 Type 2 diabetes mellitus with diabetic autonomic (poly)neuropathy; D86.9 Sarcoidosis, unspecified; G35 Multiple sclerosis; K31.84 Gastroparesis; R31.9 Hematuria, unspecified; K44.9 Diaphragmatic hernia without obstruction or gangrene; K21.00 Gastro-esophageal reflux disease with esophagitis, without bleeding; K29.70 Gastritis, unspecified, without bleeding; I10 Essential (primary) hypertension; G47.33 Obstructive sleep apnea (adult) (pediatric); G89.4 Chronic pain syndrome; M54.9 Dorsalgia, unspecified; G25.81 Restless legs syndrome; G43.909 Migraine, unspecified, not intractable, without status migrainosus; E03.9 Hypothyroidism, unspecified; R39.15 Urgency of urination; R35.0 Frequency of micturition; J45.909 Unspecified asthma, uncomplicated; E66.9 Obesity, unspecified; Z68.30 Body mass index [BMI] 30.0-30.9, adult; Z79.84 Long term (current) use of oral hypoglycemic drugs; Z79.890 Hormone replacement therapy; Z79.891 Long term (current) use of opiate analgesic; Z79.899 Other long term (current) drug therapy; Z97.8 Presence of other specified devices; Z87.442 Personal history of urinary calculi; Z88.8 Allergy status to other drugs, medicaments and biological substances; Z91.040 Latex allergy status
CPT/HCPCS: 36415; 43239; 45378; 74018; 74176; 80048; 80053; 81001; 82150; 83036; 83605; 83690; 85025; 88305; 88312; 88342; 96361; 96374; 96375; 96376; 99285

== ENCOUNTER 2022-05-02 11:56 | Emergency (ER) | payer MEDICARE, OTHER ==
[2022-05-02 12:06] VITALS: TEMP 98
[2022-05-02] MEDS ORDERED: KETOROLAC 15 MG/ML 1 ML VIAL IVP STA (12:42)
[2022-05-02] MEDS ORDERED: DEXAMETHASONE SOD PHOSPHATE 10 MG/ML 1 ML VIAL IVP STA (12:42)
[2022-05-02] MEDS ORDERED: SODIUM CHLORIDE 0.9% 1,000 ML IV ONE (12:42)
[2022-05-02] MEDS ORDERED: PROCHLORPERAZINE INJ 10 MG/2 ML VIAL IVP STA (12:43)
[2022-05-02] MEDS ORDERED: diphenhydrAMINE 50 MG/ML 1 ML VIAL IVP STA (12:43)
--- NOTE | 2022-05-02 13:10 | ED ---
General Adult HPI - General Chief complaint: Neuro Symptoms/Deficit Stated complaint: Left side faical numbness Time Seen by Provider: 05/02/22 12:15 Source: patient, RN notes reviewed, old records reviewed Mode of arrival: ambulatory Limitations: no limitations - History of Present Illness Initial comments: This is a 51-year-old female who presents emergency Department with a past medical history significant for sarcoidosis, MS, migraine headache and gastroparesis. Patient comes in today because she has had a headache and left- sided tingling like her face is falling asleep for the last 6 days. She went and saw her neurologist and the physician blood donor unit assistant sent to the emergency department. Patient states she's had numbness on the left side of her body often in the past but not typically in the face. Patient denies any actual weakness or actual lack of sensation anywhere. Patient denies any recent fever chills patient denies any chest pain difficult breathing shortest breath. Patient denies lightheadedness or dizziness. Patient states the headache still remains. Patient denies any abdominal pain. - Related Data Home Medications Medication Instructions Recorded Confirmed Albuterol Sulfate [Proair Hfa] 2 puff INHALATION RT-Q6H PRN 09/26/15 05/02/22 DULoxetine HCL [Cymbalta] 60 mg PO DAILY 01/10/17 05/02/22 Scopolamine 1 mg/72 Hr Patch 1 patch TRANSDERM Q72H PRN 07/07/17 05/02/22 [TransDerm Scop] Levothyroxine Sodium [Synthroid] 112 mcg PO DAILY 12/05/18 05/02/22 rOPINIRole HCL [Requip] 2 mg PO TID 12/05/18 05/02/22 Baclofen 10 mg PO TID PRN 04/29/19 05/02/22 Morphine Pain Pump 1 dose INTRATHECA CONTINUOUS 10/10/19 05/02/22 Ondansetron Odt [Zofran ODT] 8 mg PO Q6H PRN 11/13/19 05/02/22 Gabapentin [Neurontin] 100 mg PO TID 05/10/20 05/02/22 Pantoprazole Sodium [Protonix] 40 mg PO BID 05/10/20 05/02/22 SUMAtriptan succinate 6 mg SQ BID PRN 05/10/20 05/02/22 methocarbamoL [Robaxin] 500 mg PO TID PRN 05/10/20 05/02/22 Infliximab-Dyyb [Inflectra] 1 dose IV Q42D 05/23/20 05/02/22 oxyCODONE-APAP 10-325MG [Percocet 1 tab PO BID PRN 04/17/22 05/02/22 10-325 mg] Previous Rx's Medication Instructions Recorded metFORMIN HCL [Glucophage] 500 mg PO BID #60 tab 02/10/18 Allergies Allergy/AdvReac Type Severity Reaction Status Date / Time adhesive Allergy Severe Rash/Hives Verified 05/02/22 13:49 adhesive tape Allergy Severe Rash/Hives Verified 05/02/22 13:49 fentanyl Allergy Severe Rash/Hives Verified 05/02/22 13:49 from patch only latex Allergy Severe Rash/Hives Verified 05/02/22 13:49 metoclopramide [From Reglan] Allergy dystonia Verified 05/02/22 13:49 from IV Reglan prochlorperazine Allergy dystonia Verified 05/02/22 13:49 [From Compazine] Review of Systems ROS Statement: Those systems with pertinent positive or pertinent negative responses have been documented in the HPI. ROS Other: All systems not noted in ROS Statement are negative. Past Medical History Past Medical History: Asthma, Diabetes Mellitus, GERD/Reflux, Hypertension, Musculoskeletal Disorder, Neurologic Disorder, Sleep Apnea/CPAP/BIPAP, Thyroid Disorder Additional Past Medical History / Comment(s): MS, back pain, DDD, optic neuritis, Gastroparesis., C-Diff (June 2018) leukopenia (sores in mouth) migraines, sleep apnea due to M.S. (no machine), sarcoidosis, cyst in stomach. , hopitalized 10/04/19 after lumbar puncture because heart rate dropped, hospitalized 10/10/19 for headache (post l.p.), states allergy to all adhesive and needs benadryl IV 50mg prior to using tape or tegaderm etc. History of Any Multi-Drug Resistant Organisms: C-DIFF Date of last positivie culture/infection: 2018 MDRO Source:: stool Past Surgical History: Bladder Surgery, Breast Surgery, Hernia Repair, Hysterectomy, Orthopedic Surgery, Tubal Ligation Additional Past Surgical History / Comment(s): rhinoplasty, bladder suspension, breast sx, morphine pump , RT KNEE SCOPE, TUMMY TUCK, Spinal cord stimulator inserted and removed. port august 2019, gastroparesis botox and EGD 11/06/2019, breast implants, gastric surgery 05/05/20, Stent placed on kidney Past Anesthesia/Blood Transfusion Reactions: Motion Sickness, Postoperative Nausea & Vomiting (PONV) Past Psychological History: No Psychological Hx Reported Smoking Status: Never smoker Past Alcohol Use History: Occasional Past Drug Use History: None Reported - Past Family History Father History Unknown: Yes Family Medical History: No Reported History Additional Family Medical History / Comment(s): . Mother History Unknown: Yes Family Medical History: No Reported History Additional Family Medical History / Comment(s): NO FAMILY HISTORY General Exam - General Exam Comments Initial Comments: GENERAL: Patient is well-developed and well-nourished. Patient is nontoxic and well-hydrated and is in mild distress. ENT: Neck is soft and supple. No significant lymphadenopathy is noted. Oropharynx is clear. Moist mucous membranes. Neck has full range of motion without eliciting any pain. EYES: The sclera were anicteric and conjunctiva were pink and moist. Extraocular movements were intact and pupils were equal round and reactive to light. Eyelids were unremarkable. PULMONARY: Unlabored respirations. Good breath sounds bilaterally. No audible rales rhonchi or wheezing was noted. CARDIOVASCULAR: There is a regular rate and rhythm without any murmurs gallops or rubs. ABDOMEN: Soft and nontender with normal bowel sounds. SKIN: Skin is clear with no lesions or rashes and otherwise unremarkable. NEUROLOGIC: Patient is alert and oriented x3. Cranial nerves II through XII are grossly intact. Motor and sensory are also intact. Normal speech, volume and content. Symmetrical smile. Patient's NIH is 0 MUSCULOSKELETAL: Normal extremities with adequate strength and full range of motion. LYMPHATICS: No significant lymphadenopathy is noted PSYCHIATRIC: Normal psychiatric evaluation. Limitations: no limitations Course Vital Signs 05/02/22 12:01 Temperature 98 F Pulse Rate 96 Respiratory 16 Rate Blood Pressure 137/88 O2 Sat by Pulse 98 Oximetry Medical Decision Making - Medical Decision Making Was pt. sent in by a medical professional or institution (, PA, RISK ASSESSMENT ANALYST, urgent care, hospital, or long term...) When possible be specific @ -Patient was sent in by Dr. No's office Did you speak to anyone other than the patient for history (EMS, parent, family, police, friend...)? What history was obtained from this source @ - gave some of the history because the patient was too uncomfortable to answer all questions Did you review nursing and triage notes (agree or disagree)? Why? @ -I reviewed and agree with nursing and triage notes Were old charts reviewed (outside hosp., previous admission, EMS record, old EKG, old radiological studies, urgent care reports/EKG's, long term records)? Report findings @ -No old charts were reviewed Differential Diagnosis (chest pain, altered mental status, abdominal pain women, abdominal pain men, vaginal bleeding, weakness, fever, dyspnea, syncope, headache, dizziness, GI bleed, back pain, seizure, CVA, palpatations, mental health)? @ -Differential Headache: Migraine, tension, cluster, carbon monoxide, central venous thrombosis, pension karma temporal arteritis, acute closure glaucoma, intercranial hemorrhage, mastoiditis, sinusitis, head injury, this is not meant to be an all-inclusive list. EKG interpreted by me (3pts min.). @ -As above X-rays interpreted by me (1pt min.). @ -None done CT interpreted by me (1pt min.). @ -None done U/S interpreted by me (1pt. min.). @ -None done What testing was considered but not performed or refused? (CT, X-rays, U/S, labs)? Why? @ -I did consider CT of head however patient is no objective findings and had similar symptoms in the past but did not include the face What meds were considered but not given or refused? Why? @ -None Did you discuss the management of the patient with other professionals (professionals i.e. , PA, RISK ASSESSMENT ANALYST, lab, RT, psych nurse, social media analyst, process manufacturing engineer, teacher, biosecurity officer, caser up)? Give summary @ -No Was smoking cessation discussed for >3mins.? @ -No Was critical care preformed (if so, how long)? @ -No Were there social determinants of health that impacted care today? How? (Homelessness, low income, unemployed, alcoholism, drug addiction, transportation, low edu. Level, literacy, decrease access to med. care, shelter, rehab)? @ -No Was there de-escalation of care discussed even if they declined (Discuss DNR or withdrawal of care, Hospice)? DNR status @ -No What co-morbidities impacted this encounter? (DM, HTN, Smoking, COPD, CAD, Cancer, CVA, ARF, Chemo, Hep., AIDS, mental health diagnosis, sleep apnea, morbid obesity)? @ -None Was patient admitted / discharged? Hospital course, mention meds given and route, prescriptions, significant lab abnormalities, going to OR and other pertinent info. @ -Patient has a history of migraine headaches audible sclerosis has had similar symptoms of tingling on the left side of her body though never in the face in the past. Patient was mainly here for headache control and she was given Decadron Benadryl Toradol and Compazine. I went back into the room to reevaluate the patient she stated her headache was gone and felt considerably better. Patient was sleeping shortly after the meds were given until the time I came back and reevaluated her Undiagnosed new problem with uncertain prognosis? @ -No Drug Therapy requiring intensive monitoring for toxicity (Heparin, Nitro, Insulin, Cardizem)? @ -No Were any procedures done? @ -No Diagnosis/symptom? @ -Migraine headache Acute, or Chronic, or Acute on Chronic? @ -Acute Uncomplicated (without systemic symptoms) or Complicated (systemic symptoms)? @ -Located Side effects of treatment? @ -No Exacerbation, Progression, or Severe Exacerbation? @ -Severe exacerbation Poses a threat to life or bodily function? How? (Chest pain, [place], [place], pneumonia, PE, COPD, DKA, ARF, appy, cholecystitis, CVA, Diverticulitis, Homicidal, Suicidal, threat to staff... and all critical care pts) @ -No Disposition Clinical Impression: Migraine headache Disposition: HOME SELF-CARE Condition: Good Instructions (If sedation given, give patient instructions): Migraine Headache (ED) Is patient prescribed a controlled substance at d/c from ED?: No Referrals: Abdi Taylor MD [Primary Care Provider] - 1-2 days Time of Disposition: 13:45
[2022-05-02 14:40] VITALS: BP 134/82; PULSE 94; RESP 18
== END 2022-05-02 14:41 | disposition home or self-care (01) ==
LOC: EC 11:56
DX: G43.909 Migraine, unspecified, not intractable, without status migrainosus (principal); G47.30 Sleep apnea, unspecified; I10 Essential (primary) hypertension; E11.9 Type 2 diabetes mellitus without complications; J45.909 Unspecified asthma, uncomplicated; K21.9 Gastro-esophageal reflux disease without esophagitis; E07.9 Disorder of thyroid, unspecified; Z79.84 Long term (current) use of oral hypoglycemic drugs; Z79.890 Hormone replacement therapy; Z79.899 Other long term (current) drug therapy; Z88.8 Allergy status to other drugs, medicaments and biological substances; Z91.040 Latex allergy status
CPT/HCPCS: 99283; 96374; 96375 ×4; 96361 ×2; J1200; J0780; J1100; J1642; J1885

== ENCOUNTER 2022-07-20 00:13 | Emergency (ER) | payer MEDICARE, OTHER ==
[2022-07-20 00:31] VITALS: TEMP 98.2
[2022-07-20] MEDS ORDERED: DEXAMETHASONE SOD PHOSPHATE 10 MG/ML 1 ML VIAL IVP STA (01:03)
[2022-07-20] MEDS ORDERED: PENICILLIN G BENZATHINE 1,200,000 UNIT/2 ML SYRINGE IM STA (01:03)
[2022-07-20] MEDS ORDERED: ONDANSETRON 4 MG/2 ML VIAL IVP STA (01:03)
[2022-07-20] MEDS ORDERED: SODIUM CHLORIDE 0.9% 1,000 ML IV STA (01:03)
[2022-07-20] MEDS ORDERED: diphenhydrAMINE 50 MG/ML 1 ML VIAL IVP STA (01:05)
--- NOTE | 2022-07-20 01:17 | ED ---
ENT HPI - General Chief complaint: Headache Stated complaint: Sore Throat Time Seen by Provider: 07/20/22 00:36 Source: patient, family, RN notes reviewed Mode of arrival: ambulatory Limitations: no limitations - History of Present Illness Initial comments: This is a 52-year-old female who presents to the emergency department for a sore throat, nausea, and vomiting. States that she's had a sore throat for the last 2-3 days. She tested positive for strep throat today. She has a port for gastroparesis and is unable to tolerate much by mouth. She has not taken any antibiotics, because she is unsure if she can take them orally and cannot get them through her port. Also reports diffuse joint pain and headaches, which she attributes to her sarcoidosis. She is also having nausea and vomiting. Denies any fevers, coughing, chest pain, or shortness of breath. Denies any fevers, chills, cough, dyspnea, chest pain, palpitations, abdominal pain, diarrhea, or back pain. MD complaint: sore throat Onset/Timin -: days(s) - Related Data Home Medications Medication Instructions Recorded Confirmed Albuterol Sulfate [Proair Hfa] 2 puff INHALATION RT-Q6H PRN 09/26/15 05/02/22 DULoxetine HCL [Cymbalta] 60 mg PO DAILY 01/10/17 05/02/22 Scopolamine 1 mg/72 Hr Patch 1 patch TRANSDERM Q72H PRN 07/07/17 05/02/22 [TransDerm Scop] Levothyroxine Sodium [Synthroid] 112 mcg PO DAILY 12/05/18 05/02/22 rOPINIRole HCL [Requip] 2 mg PO TID 12/05/18 05/02/22 Baclofen 10 mg PO TID PRN 04/29/19 05/02/22 Morphine Pain Pump 1 dose INTRATHECA CONTINUOUS 10/10/19 05/02/22 Ondansetron Odt [Zofran ODT] 8 mg PO Q6H PRN 11/13/19 05/02/22 Gabapentin [Neurontin] 100 mg PO TID 05/10/20 05/02/22 Pantoprazole Sodium [Protonix] 40 mg PO BID 05/10/20 05/02/22 SUMAtriptan succinate 6 mg SQ BID PRN 05/10/20 05/02/22 methocarbamoL [Robaxin] 500 mg PO TID PRN 05/10/20 05/02/22 Infliximab-Dyyb [Inflectra] 1 dose IV Q42D 05/23/20 05/02/22 oxyCODONE-APAP 10-325MG [Percocet 1 tab PO BID PRN 04/17/22 05/02/22 10-325 mg] Previous Rx's Medication Instructions Recorded metFORMIN HCL [Glucophage] 500 mg PO BID #60 tab 02/10/18 Allergies Allergy/AdvReac Type Severity Reaction Status Date / Time adhesive Allergy Severe Rash/Hives Verified 07/20/22 00:28 adhesive tape Allergy Severe Rash/Hives Verified 07/20/22 00:28 fentanyl Allergy Severe Rash/Hives Verified 07/20/22 00:28 from patch only latex Allergy Severe Rash/Hives Verified 07/20/22 00:28 metoclopramide [From Reglan] Allergy dystonia Verified 07/20/22 00:28 from IV Reglan prochlorperazine Allergy dystonia Verified 07/20/22 00:28 [From Compazine] Review of Systems ROS Statement: Those systems with pertinent positive or pertinent negative responses have been documented in the HPI. ROS Other: All systems not noted in ROS Statement are negative. Past Medical History Past Medical History: Asthma, Diabetes Mellitus, GERD/Reflux, Hypertension, Musculoskeletal Disorder, Neurologic Disorder, Sleep Apnea/CPAP/BIPAP, Thyroid Disorder Additional Past Medical History / Comment(s): MS, back pain, DDD, optic neuritis, Gastroparesis., C-Diff (June 2018) leukopenia (sores in mouth) migraines, sleep apnea due to M.S. (no machine), sarcoidosis, cyst in stomach. , hopitalized 10/04/19 after lumbar puncture because heart rate dropped, hospitalized 10/10/19 for headache (post l.p.), states allergy to all adhesive and needs benadryl IV 50mg prior to using tape or tegaderm etc. History of Any Multi-Drug Resistant Organisms: C-DIFF Date of last positivie culture/infection: 2018 MDRO Source:: stool Past Surgical History: Bladder Surgery, Breast Surgery, Hernia Repair, Hysterectomy, Orthopedic Surgery, Tubal Ligation Additional Past Surgical History / Comment(s): rhinoplasty, bladder suspension, breast sx, morphine pump , RT KNEE SCOPE, TUMMY TUCK, Spinal cord stimulator inserted and removed. port august 2019, gastroparesis botox and EGD 11/06/2019, breast implants, gastric surgery 05/05/20, Stent placed on kidney Past Anesthesia/Blood Transfusion Reactions: Motion Sickness, Postoperative Nausea & Vomiting (PONV) Past Psychological History: No Psychological Hx Reported Smoking Status: Never smoker Past Alcohol Use History: Occasional Past Drug Use History: None Reported - Past Family History Father History Unknown: Yes Family Medical History: No Reported History Additional Family Medical History / Comment(s): . Mother History Unknown: Yes Family Medical History: No Reported History Additional Family Medical History / Comment(s): NO FAMILY HISTORY General Exam Limitations: no limitations General appearance: alert, in no apparent distress Head exam: Present: atraumatic, normocephalic, normal inspection ENT exam: Present: other (Posterior pharyngeal erythema with 3+ tonsillar hypertrophy and exudates) Respiratory exam: Present: normal lung sounds bilaterally. Absent: respiratory distress, wheezes, rales, rhonchi, stridor Cardiovascular Exam: Present: regular rate, normal rhythm, normal heart sounds. Absent: systolic murmur, diastolic murmur, rubs, gallop, clicks GI/Abdominal exam: Present: soft, normal bowel sounds. Absent: distended, tenderness, guarding, rebound, rigid Neurological exam: Present: alert, oriented X3, CN II-XII intact Psychiatric exam: Present: normal affect, normal mood Skin exam: Present: warm, dry, intact, normal color. Absent: rash Course Vital Signs 07/20/22 07/20/22 00:29 03:25 Temperature 98.2 F Pulse Rate 95 95 Respiratory 18 17 Rate Blood Pressure 116/88 106/70 O2 Sat by Pulse 97 95 Oximetry Medical Decision Making - Medical Decision Making This is a 52-year-old female who presents to the emergency department for strep throat and nausea/vomiting. Was pt. sent in by a medical professional or institution? @ -No Did you speak to anyone other than the patient for history? @ -No Did you review nursing and triage notes? @ -Yes, and I agree, it is accurate with regards to the patient's symptoms. Were old charts reviewed? @ -No Differential Diagnosis? @ -Differential Nausea and Vomiting: Gastroenteritis, cholecystitis, appendicitis, pancreatitis, migraine, benign positional vertigo, food borne illness, pyelonephritis, irritable bowel syndrome, influenza, Covid, GERD, incarcerated hernia, intestinal obstruction, this is not meant to be an all-inclusive list. What testing was considered but not performed? (CT, X-rays, U/S, labs)? Why? @ -None What meds were considered but not given? Why? @ -None Did you discuss the management of the patient with other professionals? @ -No Did you reconcile home meds? @ -No Was smoking cessation discussed for >3mins.? @ -No Was critical care preformed (if so, how long)? @ -No Were there social determinants of health that impacted care today? How? (Homelessness, low income, unemployed, alcoholism, drug addiction, transportation, low edu. Level, literacy, decrease access to med. care, fci, rehab)? @ -No Was there de-escalation of care discussed even if they declined? (Discuss DNR or withdrawal of care, Hospice)? @ -No What co-morbidities impacted this encounter? (DM, HTN, Smoking, COPD, CAD, Cancer, CVA, Hep., AIDS, mental health diagnosis, sleep apnea, morbid obesity)? @ -DM, gastroparesis Was patient admitted / discharged? @ -Discharged. Blood sugar checked at 165. Given her difficulty with tolerating oral intake with regards to the gastroparesis, she was given the one time dose of IM Penicillin G for the strep pharyngitis so that she does not have to continue taking antibiotics. She was also given IV fluids, Decadron, and Zofran. She did feel improved, however she continued to have minor associated nausea. She does have problems with reactions to multiple nausea medications and she was subsequently given a dose of droperidol, which she tolerated well and states was effective. She has ODT Zofran and scopolamine patches at home that she'll continue to use as needed. Otherwise advised supportive care. Undiagnosed new problem with uncertain prognosis? @ -None Drug Therapy requiring intensive monitoring for toxicity (Heparin, Nitro, Insulin, Cardizem)? @ -None Were any procedures done? @ -None Diagnosis/symptom? @ -Strep pharyngitis, nausea and vomiting Acute, or Chronic, or Acute on Chronic? @ -Acute Uncomplicated (without systemic symptoms) or Complicated (systemic symptoms)? @ -Uncomplicated Side effects of treatment? @ -None Exacerbation, Progression, or Severe Exacerbation] @ -Not applicable Poses a threat to life or bodily function? @ -No Return precautions reviewed in depth, the patient is instructed to return to the emergency department with any new, worsening, or concerning symptoms. Patient verbalized understanding. This case was discussed in detail with the attending ED physician, Dr. Cardenas. Presentation, findings, and treatment plan discussed in detail as well. - Lab Data Lab Results 07/20/22 Range/Units 03:56 POC Glucose (mg/dL) 165 H (70-110) mg/dL POC Glu Sports Physical Therapist ID Jeff Cox Disposition Clinical Impression: Strep pharyngitis, Nausea Disposition: HOME SELF-CARE Instructions (If sedation given, give patient instructions): Strep Throat (ED), Acute Nausea and Vomiting (ED) Additional Instructions: Return to the emergency department with any new, worsening, or concerning symptoms. Continue to use the Zofran as needed for nausea and vomiting. Follow up with your primary care provider in 1-2 days. Is patient prescribed a controlled substance at d/c from ED?: No Referrals: Abdi Taylor MD [Primary Care Provider] - 1-2 days
[2022-07-20] MEDS ORDERED: KETOROLAC 15 MG/ML 1 ML VIAL IVP STA (02:52)
[2022-07-20 03:58] LABS: Glucose,Whole Blood 165 mg/dL (70-110)
[2022-07-20 05:23] VITALS: BP 114/76; PULSE 98; RESP 16
== END 2022-07-20 04:45 | disposition home or self-care (01) ==
LOC: EC 00:13
DX: J02.0 Streptococcal pharyngitis (principal); I10 Essential (primary) hypertension; G47.30 Sleep apnea, unspecified; J45.909 Unspecified asthma, uncomplicated; K21.9 Gastro-esophageal reflux disease without esophagitis; E11.9 Type 2 diabetes mellitus without complications; Z79.84 Long term (current) use of oral hypoglycemic drugs; Z79.899 Other long term (current) drug therapy; Z88.8 Allergy status to other drugs, medicaments and biological substances; Z91.040 Latex allergy status
CPT/HCPCS: 36415; 99283; 96374; 96375 ×4; 96361; J0561; J1200; J1100; J2405; J1885; J1790

== ENCOUNTER 2022-08-24 14:08 | Emergency (ER) | payer MEDICARE, OTHER ==
[2022-08-24] MEDS ORDERED: KETOROLAC 15 MG/ML 1 ML VIAL IVP STA (15:24)
[2022-08-24] MEDS ORDERED: ONDANSETRON 4 MG/2 ML VIAL IVP STA (15:24)
[2022-08-24] MEDS ORDERED: SODIUM CHLORIDE 0.9% 500 ML 500 ML IV STA (15:24)
--- NOTE | 2022-08-24 15:26 | ED ---
General Adult HPI - General Chief complaint: Abdominal Pain Stated complaint: stomach pain Time Seen by Provider: 08/24/22 15:15 Source: patient, RN notes reviewed, old records reviewed Mode of arrival: ambulatory Limitations: no limitations - History of Present Illness Initial comments: This is a 52-year-old female presents emergency Department complaining of right- sided abdominal pain. Patient states it started yesterday and continued today. Patient states she's nauseated but she is always nauseated. She has gastroparesis. Patient states she has blood in her urine and she has had kidney stone the past. Patient denies any fever chills. Patient denies any chest pain difficulty breathing. Patient states she does have a little bit of lower right- sided back pain. - Related Data Home Medications Medication Instructions Recorded Confirmed Albuterol Sulfate [Proair Hfa] 2 puff INHALATION RT-Q6H PRN 09/26/15 08/24/22 DULoxetine HCL [Cymbalta] 60 mg PO DAILY 01/10/17 08/24/22 Scopolamine 1 mg/72 Hr Patch 1 patch TRANSDERM Q72H PRN 07/07/17 08/24/22 [TransDerm Scop] Levothyroxine Sodium [Synthroid] 112 mcg PO DAILY 12/05/18 08/24/22 rOPINIRole HCL [Requip] 2 mg PO TID 12/05/18 08/24/22 Baclofen 10 mg PO TID PRN 04/29/19 08/24/22 Morphine Pain Pump 1 dose INTRATHECA CONTINUOUS 10/10/19 08/24/22 Ondansetron Odt [Zofran ODT] 8 mg PO Q6H PRN 11/13/19 08/24/22 Gabapentin [Neurontin] 100 mg PO TID 05/10/20 08/24/22 Pantoprazole Sodium [Protonix] 40 mg PO BID 05/10/20 08/24/22 SUMAtriptan succinate 6 mg SQ BID PRN 05/10/20 08/24/22 methocarbamoL [Robaxin] 500 mg PO TID PRN 05/10/20 08/24/22 Infliximab-Dyyb [Inflectra] 1 dose IV Q42D 05/23/20 08/24/22 oxyCODONE-APAP 10-325MG [Percocet 1 tab PO BID PRN 04/17/22 08/24/22 10-325 mg] Previous Rx's Medication Instructions Recorded metFORMIN HCL [Glucophage] 500 mg PO BID #60 tab 02/10/18 Allergies Allergy/AdvReac Type Severity Reaction Status Date / Time adhesive Allergy Severe Rash/Hives Verified 08/24/22 17:36 adhesive tape Allergy Severe Rash/Hives Verified 08/24/22 17:36 fentanyl Allergy Severe Rash/Hives Verified 08/24/22 17:36 from patch only latex Allergy Severe Rash/Hives Verified 08/24/22 17:36 metoclopramide [From Reglan] Allergy dystonia Verified 08/24/22 17:36 from IV Reglan prochlorperazine Allergy dystonia Verified 08/24/22 17:36 [From Compazine] Review of Systems ROS Statement: Those systems with pertinent positive or pertinent negative responses have been documented in the HPI. ROS Other: All systems not noted in ROS Statement are negative. Past Medical History Past Medical History: Asthma, Diabetes Mellitus, GERD/Reflux, Hypertension, Musculoskeletal Disorder, Neurologic Disorder, Sleep Apnea/CPAP/BIPAP, Thyroid Disorder Additional Past Medical History / Comment(s): MS, back pain, DDD, optic neuritis, Gastroparesis., C-Diff (June 2018) leukopenia (sores in mouth) migraines, sleep apnea due to M.S. (no machine), sarcoidosis, cyst in stomach. , hopitalized 10/04/19 after lumbar puncture because heart rate dropped, hospitalized 10/10/19 for headache (post l.p.), states allergy to all adhesive and needs benadryl IV 50mg prior to using tape or tegaderm etc. History of Any Multi-Drug Resistant Organisms: C-DIFF Date of last positivie culture/infection: 2018 MDRO Source:: stool Past Surgical History: Bladder Surgery, Breast Surgery, Hernia Repair, Hysterectomy, Orthopedic Surgery, Tubal Ligation Additional Past Surgical History / Comment(s): rhinoplasty, bladder suspension, breast sx, morphine pump , RT KNEE SCOPE, TUMMY TUCK, Spinal cord stimulator inserted and removed. port august 2019, gastroparesis botox and EGD 11/06/2019, breast implants, gastric surgery 05/05/20, Stent placed on kidney Past Anesthesia/Blood Transfusion Reactions: Motion Sickness, Postoperative Nausea & Vomiting (PONV) Past Psychological History: No Psychological Hx Reported Smoking Status: Never smoker Past Alcohol Use History: Occasional Past Drug Use History: None Reported - Past Family History Father History Unknown: Yes Family Medical History: No Reported History Additional Family Medical History / Comment(s): . Mother History Unknown: Yes Family Medical History: No Reported History Additional Family Medical History / Comment(s): NO FAMILY HISTORY General Exam - General Exam Comments Initial Comments: GENERAL: Patient is well-developed and well-nourished. Patient is nontoxic and well- hydrated and is in mild distress. ENT: Neck is soft and supple. No significant lymphadenopathy is noted. Oropharynx is clear. Moist mucous membranes. Neck has full range of motion without eliciting any pain. EYES: The sclera were anicteric and conjunctiva were pink and moist. Extraocular movements were intact and pupils were equal round and reactive to light. Eyelids were unremarkable. PULMONARY: Unlabored respirations. Good breath sounds bilaterally. No audible rales rhonchi or wheezing was noted. CARDIOVASCULAR: There is a regular rate and rhythm without any murmurs gallops or rubs. ABDOMEN: Soft and nontender with normal bowel sounds. SKIN: Skin is clear with no lesions or rashes and otherwise unremarkable. NEUROLOGIC: Patient is alert and oriented x3. Cranial nerves II through XII are grossly intact. Motor and sensory are also intact. Normal speech, volume and content. Symmetrical smile. MUSCULOSKELETAL: Normal extremities with adequate strength and full range of motion. No lower extremity swelling or edema. No calf tenderness. LYMPHATICS: No significant lymphadenopathy is noted PSYCHIATRIC: Normal psychiatric evaluation. Limitations: no limitations Course Vital Signs 08/24/22 08/24/22 14:35 16:37 Temperature 98.2 F 97.8 F Pulse Rate 79 68 Respiratory 17 17 Rate Blood Pressure 123/62 114/63 O2 Sat by Pulse 100 95 Oximetry Medical Decision Making - Medical Decision Making Was pt. sent in by a medical professional or institution (, PA, HOME CARE ASSISTANT, urgent care, hospital, or snf...) When possible be specific @ -No Did you speak to anyone other than the patient for history (EMS, parent, family, police, friend...)? What history was obtained from this source @ -No Did you review nursing and triage notes (agree or disagree)? Why? @ -I reviewed and agree with nursing and triage notes Were old charts reviewed (outside hosp., previous admission, EMS record, old EKG, old radiological studies, urgent care reports/EKG's, snf records)? Report findings @ -I reviewed prior lab work and prior charts from previous visits on this patient. Differential Diagnosis (chest pain, altered mental status, abdominal pain women, abdominal pain men, vaginal bleeding, weakness, fever, dyspnea, syncope, headache, dizziness, GI bleed, back pain, seizure, CVA, palpatations, mental health, musculoskeletal)? @ -Differential Abdominal Pain Women: Appendicitis, Cholecystitis, diverticulosis, ischemic bowel, pancreatitis, hepatitis, UTI, gastroenteritis, AAA, incarcerated hernia, bowel obstruction, constipation, inflammatory bowel, hepatitis, peptic ulcer disease, splenic infarction, perforated viscus, vulvitis, ovarian torsion, PID, kidney stone, placenta abruption, this is not meant to be an all-inclusive list EKG interpreted by me (3pts min.). @ -As above X-rays interpreted by me (1pt min.). @ -None done CT interpreted by me (1pt min.). @ -CT of the abdomen and pelvis was interpreted by myself I saw no acute abnormalities to explain the patient's pain or hematuria. U/S interpreted by me (1pt. min.). @ -None done What testing was considered but not performed or refused? (CT, X-rays, U/S, labs)? Why? @ -None What meds were considered but not given or refused? Why? @ -None Did you discuss the management of the patient with other professionals (professionals i.e. , PA, HOME CARE ASSISTANT, lab, RT, psych nurse, social science professor, overhead cleaner maintainer, teacher, fourth officer, case investigator)? Give summary @ -No Was smoking cessation discussed for >3mins.? @ -No Was critical care preformed (if so, how long)? @ -No Were there social determinants of health that impacted care today? How? (Homelessness, low income, unemployed, alcoholism, drug addiction, transportation, low edu. Level, literacy, decrease access to med. care, longterm, rehab)? @ -No Was there de-escalation of care discussed even if they declined (Discuss DNR or withdrawal of care, Hospice)? DNR status @ -No What co-morbidities impacted this encounter? (DM, HTN, Smoking, COPD, CAD, Cancer, CVA, ARF, Chemo, Hep., AIDS, mental health diagnosis, sleep apnea, morbid obesity)? @ -None Was patient admitted / discharged? Hospital course, mention meds given and route, prescriptions, significant lab abnormalities, going to OR and other pertinent info. @ -Zofran for nausea she did not vomit while in the emergency department. But she continued to complain of intermittent abdominal pain that sharp in nature. Patient states she is willing to go home and follow-up with her primary medical care doctor I offered her medication for nausea but she states she has plenty of medication at home. CAT scan did not show any acute normalities blood work was all normal and she was willing to go home and fact she stated she would be driving herself home to [employer]. Undiagnosed new problem with uncertain prognosis? @ -No Drug Therapy requiring intensive monitoring for toxicity (Heparin, Nitro, Insulin, Cardizem)? @ -No Were any procedures done? @ -No Diagnosis/symptom? @ -Abdominal pain Acute, or Chronic, or Acute on Chronic? @ -Acute Uncomplicated (without systemic symptoms) or Complicated (systemic symptoms)? @ -Complicated Side effects of treatment? @ -No Exacerbation, Progression, or Severe Exacerbation? @ -No Poses a threat to life or bodily function? How? (Chest pain, [place], [place], pneumonia, PE, COPD, DKA, ARF, appy, cholecystitis, CVA, Diverticulitis, Homicidal, Suicidal, threat to staff... and all critical care pts) @ -No Diagnosis/symptom? @ -Hematuria Acute, or Chronic, or Acute on Chronic? @ -Acute Uncomplicated (without systemic symptoms) or Complicated (systemic symptoms)? @ -Complicated Side effects of treatment? @ -none Exacerbation, Progression, or Severe Exacerbation] @ -no Poses a threat to life or bodily function? @ -no - Lab Data Result diagrams: 08/24/22 16:10 08/24/22 16:10 Lab Results 08/24/22 08/24/22 08/24/22 Range/Units 15:09 16:10 16:10 WBC 5.7 (3.8-10.6) k/uL RBC 4.37 (3.80-5.40) m/uL Hgb 12.1 (11.4-16.0) gm/dL Hct 37.1 (34.0-46.0) % MCV 85.1 (80.0-100.0) fL MCH 27.6 (25.0-35.0) pg MCHC 32.5 (31.0-37.0) g/dL RDW 13.7 (11.5-15.5) % Plt Count 258 (150-450) k/uL MPV 7.4 Neutrophils % 45 % Lymphocytes % 46 % Monocytes % 5 % Eosinophils % 2 % Basophils % 1 % Neutrophils # 2.6 (1.3-7.7) k/uL Lymphocytes # 2.6 (1.0-4.8) k/uL Monocytes # 0.3 (0-1.0) k/uL Eosinophils # 0.1 (0-0.7) k/uL Basophils # 0.0 (0-0.2) k/uL Sodium 139 (137-145) mmol/L Potassium 4.0 (3.5-5.1) mmol/L Chloride 103 (98-107) mmol/L Carbon Dioxide 30 (22-30) mmol/L Anion Gap 6 mmol/L BUN 14 (7-17) mg/dL Creatinine 0.79 (0.52-1.04) mg/dL Est GFR (CKD-EPI)AfAm >90 (>60 ml/min/1.73 sqM) Est GFR (CKD-EPI)NonAf 88 (>60 ml/min/1.73 sqM) Glucose 92 (74-99) mg/dL Calcium 8.6 (8.4-10.2) mg/dL Total Bilirubin 0.4 (0.2-1.3) mg/dL AST 26 (14-36) U/L ALT 20 (4-34) U/L Alkaline Phosphatase 78 (38-126) U/L Total Protein 6.6 (6.3-8.2) g/dL Albumin 3.8 (3.5-5.0) g/dL Amylase 62 (30-110) U/L Lipase 29 (23-300) U/L Urine Color Yellow Urine Appearance Clear (Clear) Urine pH 5.5 (5.0-8.0) Ur Specific [place] 1.027 (1.001-1.035) Urine Protein Trace H (Negative) Urine Glucose (UA) Negative (Negative) Urine Ketones Negative (Negative) Urine Blood Large H (Negative) Urine Nitrite Negative (Negative) Urine Bilirubin Negative (Negative) Urine Urobilinogen <2.0 (<2.0) mg/dL Ur Leukocyte Esterase Small H (Negative) Urine RBC >182 H (0-5) /hpf Urine WBC 5 (0-5) /hpf Ur Squamous Epith Cells 5 H (0-4) /hpf Urine Mucus Occasional H (None) /hpf Disposition Clinical Impression: Abdominal pain Disposition: HOME SELF-CARE Instructions (If sedation given, give patient instructions): Abdominal Pain (ED) Is patient prescribed a controlled substance at d/c from ED?: No Referrals: Abdi Taylor MD [Primary Care Provider] - 1-2 days Time of Disposition: 18:20
[2022-08-24 16:02] LABS: Appearance,Urine Clear (Clear); Bilirubin,Urine Negative (Negative); Blood,Urine Large (Negative); Color,Urine Yellow; Glucose,Urine (UA) Negative (Negative); Ketones,Urine Negative (Negative); Leukocyte Esterase,Urine Small (Negative); Mucus,Urine Occasional /hpf; Nitrite,Urine Negative (Negative); PH, Urine 5.5 (5.0-8.0); Protein,Urine Trace (Negative); RBC,Urine >182 /hpf (0-5); Specific Gravity,Urine 1.027 (1.001-1.035); Squamous Epithelial Cell,Urine 5 /hpf (0-4); Urobilinogen,Urine <2.0 mg/dL (<2.0); WBC,Urine 5 /hpf (0-5)
[2022-08-24 16:40] LABS: Basophils % (A) 1 %; Eosinophils # (A) 0.1 k/uL (0-0.7); Eosinophils % (A) 2 %; HCT 37.1 % (34.0-46.0); HGB 12.1 gm/dL (11.4-16.0); Lymphocytes # (A) 2.6 k/uL (1.0-4.8); Lymphocytes % (A) 46 %; MCH 27.6 pg (25.0-35.0); MCHC 32.5 g/dL (31.0-37.0); MCV 85.1 fL (80.0-100.0); Mean Platelet Volume 7.4; Monocytes # (A) 0.3 k/uL (0-1.0); Monocytes % (A) 5 %; Neutrophils # (A) 2.6 k/uL (1.3-7.7); Neutrophils % (A) 45 %; Platelet Count 258 k/uL (150-450); RBC 4.37 m/uL (3.80-5.40); RDW 13.7 % (11.5-15.5); WBC 5.7 k/uL (3.8-10.6)
[2022-08-24] MEDS ORDERED: diphenhydrAMINE 50 MG/ML 1 ML VIAL IVP STA (16:59)
[2022-08-24 17:02] LABS: ALT 20 U/L (4-34); AST 26 U/L (14-36); African American GFR (CKD) >90 (>60 ml/min/1.73 sqM); Albumin 3.8 g/dL (3.5-5.0); Alkaline Phosphatase 78 U/L (38-126); Amylase 62 U/L (30-110); Anion Gap 6 mmol/L; Blood Urea Nitrogen 14 mg/dL (7-17); Calcium 8.6 mg/dL (8.4-10.2); Carbon Dioxide 30 mmol/L (22-30); Chloride 103 mmol/L (98-107); Glucose 92 mg/dL (74-99); Lipase 29 U/L (23-300); Non-African American GFR(CKD) 88 (>60 ml/min/1.73 sqM); Sodium 139 mmol/L (137-145); Total Bilirubin 0.4 mg/dL (0.2-1.3); Total Protein 6.6 g/dL (6.3-8.2)
--- NOTE | 2022-08-24 17:40 | CT ---
EXAMINATION TYPE: CT abdomen pelvis wo con DATE OF EXAM: 08/24/2022 COMPARISON: 04/17/2022 INDICATION: RT flank pain DLP: 924.3 mGycm, Automated exposure control for dose reduction was used. CONTRAST: 0 mL of Isovue 300. Study performed without Oral Contrast TECHNIQUE: Axial images were obtained from above the diaphragm to the pubic rami in the axial plane a t 5 mm thick sections. Reconstructed images are reviewed on the computer in the coronal plane. FINDINGS: Limited CT sections are obtained the lung bases. The lung bases are clear. Bilateral breast prosthe ses are present. Small hiatal hernia is present CT ABDOMEN: Metallic device overlies the anterior right mid abdomen causing beam hardening artifact i n some limitation. Liver: Normal Spleen: Normal Pancreas: Atrophic Adrenal glands: The adrenal glands are normal. Gallbladder: Normal Kidneys: No masses are evident. No hydronephrosis is present. No cysts are present. No renal stone s are identified. Aorta: Vascular calcification is within the aorta. Inferior vena cava: Normal. CT PELVIS: There is a metallic type foreign body in the posterior right subcutaneous tissues. Loops of bowel within the abdomen and pelvis are normal. Few scattered diverticula are present witho ut evidence of acute diverticulitis. Fecal debris is in the ascending colon and cecum. The study is without oral contrast limiting bowel evaluation. Appendix: Not identified. No dilated tubular structure or inflammatory change evident. Urinary bladder: Normal. Genitourinary structures: Uterus and ovaries are not identified. Osseous structures: No suspicious lytic or sclerotic lesions. Degenerative disc changes present L5-S1 . IMPRESSIONS: 1. No suspicious abnormalities to account for right flank pain. 2. Old radiopaque foreign body posterior right buttock subcutaneous tissue.
[2022-08-24 18:53] VITALS: BP 178/83; PULSE 82; RESP 18; TEMP 98.4
== END 2022-08-24 18:53 | disposition home or self-care (01) ==
LOC: EC 14:08
DX: R10.9 Unspecified abdominal pain (principal); J45.909 Unspecified asthma, uncomplicated; E11.9 Type 2 diabetes mellitus without complications; K21.9 Gastro-esophageal reflux disease without esophagitis; I10 Essential (primary) hypertension; E07.9 Disorder of thyroid, unspecified; G47.30 Sleep apnea, unspecified; Z79.890 Hormone replacement therapy; Z79.899 Other long term (current) drug therapy; Z91.09 Other allergy status, other than to drugs and biological substances; Z91.040 Latex allergy status; Z88.5 Allergy status to narcotic agent; Z88.8 Allergy status to other drugs, medicaments and biological substances
CPT/HCPCS: 36415; 80053; 82150; 83690; 85025; 81001; 74176; 99285; 96374; 96375 ×2; J1200; J2405; J1885

== ENCOUNTER 2022-11-04 22:24 | Observation (INO) | payer MEDICARE, OTHER ==
[2022-11-05] MEDS ORDERED: ONDANSETRON 4 MG/2 ML VIAL IVP STA ×2 (00:01→01:11)
[2022-11-05] MEDS ORDERED: diphenhydrAMINE 50 MG/ML 1 ML VIAL IVP STA (00:01)
--- NOTE | 2022-11-05 00:06 | ED ---
General Adult HPI - General Source: patient Mode of arrival: ambulatory Limitations: no limitations <Adolfo Lacy - Last Filed: 11/05/22 00:06> <Joi Cid - Last Filed: 11/05/22 08:59> - General Chief complaint: Recheck/Abnormal Lab/Rx Stated complaint: Port malfunction Time Seen by Provider: 11/04/22 23:48 - History of Present Illness Initial comments: 52-year-old female with a past medical history significant for MS and sarcoidosis presents to ED with a chief complaint of port problem. Patient was previously seen at 2 other hospitals and they were unable to access her port. Therefore, Dr. Licea advisor to advised to this facility for further evaluation. While at this facility, able to access her port. However notes symptoms of nausea, vomiting, and belly pain ongoing for the past 4 days. States she has been been unable to tolerate oral intake for the past 3-4 days. Notes history of gastroparesis and feels as her symptoms are similar in nature. Denies chest pain shortness of breath. No other complaints. (Adolfo Lacy) - Related Data Home Medications Medication Instructions Recorded Confirmed Albuterol Sulfate [Proair Hfa] 2 puff INHALATION RT-Q6H PRN 09/26/15 08/24/22 DULoxetine HCL [Cymbalta] 60 mg PO DAILY 01/10/17 08/24/22 Scopolamine 1 mg/72 Hr Patch 1 patch TRANSDERM Q72H PRN 07/07/17 08/24/22 [TransDerm Scop] Levothyroxine Sodium [Synthroid] 112 mcg PO DAILY 12/05/18 08/24/22 rOPINIRole HCL [Requip] 2 mg PO TID 12/05/18 08/24/22 Baclofen 10 mg PO TID PRN 04/29/19 08/24/22 Morphine Pain Pump 1 dose INTRATHECA CONTINUOUS 10/10/19 08/24/22 Ondansetron Odt [Zofran ODT] 8 mg PO Q6H PRN 11/13/19 08/24/22 Gabapentin [Neurontin] 100 mg PO TID 05/10/20 08/24/22 Pantoprazole Sodium [Protonix] 40 mg PO BID 05/10/20 08/24/22 SUMAtriptan succinate 6 mg SQ BID PRN 05/10/20 08/24/22 methocarbamoL [Robaxin] 500 mg PO TID PRN 05/10/20 08/24/22 Infliximab-Dyyb [Inflectra] 1 dose IV Q42D 05/23/20 08/24/22 oxyCODONE-APAP 10-325MG [Percocet 1 tab PO BID PRN 04/17/22 08/24/22 10-325 mg] Previous Rx's Medication Instructions Recorded metFORMIN HCL [Glucophage] 500 mg PO BID #60 tab 02/10/18 Allergies Allergy/AdvReac Type Severity Reaction Status Date / Time adhesive Allergy Severe Rash/Hives Verified 08/24/22 17:36 adhesive tape Allergy Severe Rash/Hives Verified 08/24/22 17:36 fentanyl Allergy Severe Rash/Hives Verified 08/24/22 17:36 from patch only latex Allergy Severe Rash/Hives Verified 08/24/22 17:36 metoclopramide [From Reglan] Allergy dystonia Verified 08/24/22 17:36 from IV Reglan prochlorperazine Allergy dystonia Verified 08/24/22 17:36 [From Compazine] Review of Systems ROS Other: All systems not noted in ROS Statement are negative. <Adolfo Lacy - Last Filed: 11/05/22 00:06> ROS Other: All systems not noted in ROS Statement are negative. <Joi Cid - Last Filed: 11/05/22 08:59> ROS Statement: Those systems with pertinent positive or pertinent negative responses have been documented in the HPI. Past Medical History Past Medical History: Asthma, Diabetes Mellitus, GERD/Reflux, Hypertension, Musculoskeletal Disorder, Neurologic Disorder, Sleep Apnea/CPAP/BIPAP, Thyroid Disorder Additional Past Medical History / Comment(s): MS, back pain, DDD, optic n euritis, Gastroparesis., C-Diff (June 2018) leukopenia (sores in mouth) migraines, sleep apnea due to M.S. (no machine), sarcoidosis, cyst in stomach. , hopitalized 10/04/19 after lumbar puncture because heart rate dropped, hospitalized 10/10/19 for headache (post l.p.), states allergy to all adhesive and needs benadryl IV 50mg prior to using tape or tegaderm etc. History of Any Multi-Drug Resistant Organisms: C-DIFF Date of last positivie culture/infection: 2018 MDRO Source:: stool Past Surgical History: Bladder Surgery, Breast Surgery, Hernia Repair, Hysterectomy, Orthopedic Surgery, Tubal Ligation Additional Past Surgical History / Comment(s): rhinoplasty, bladder suspension, breast sx, morphine pump , RT KNEE SCOPE, TUMMY TUCK, Spinal cord stimulator inserted and removed. port august 2019, gastroparesis botox and EGD 11/06/2019, breast implants, gastric surgery 05/05/20, Stent placed on kidney Past Anesthesia/Blood Transfusion Reactions: Motion Sickness, Postoperative Nausea & Vomiting (PONV) Past Psychological History: No Psychological Hx Reported Smoking Status: Never smoker Past Alcohol Use History: Occasional Past Drug Use History: None Reported - Past Family History Father History Unknown: Yes Family Medical History: No Reported History Additional Family Medical History / Comment(s): . Mother History Unknown: Yes Family Medical History: No Reported History Additional Family Medical History / Comment(s): NO FAMILY HISTORY <Adolfo Lacy - Last Filed: 11/05/22 00:06> General Exam Limitations: no limitations General appearance: alert, in no apparent distress Neck exam: Present: normal inspection Respiratory exam: Present: normal lung sounds bilaterally Cardiovascular Exam: Present: regular rate, normal rhythm GI/Abdominal exam: Present: soft (Diffuse tenderness to palpation however no rebound guarding or rigidity.) Neurological exam: Present: alert, oriented X3 Skin exam: Present: warm, dry <Adolfo Lacy - Last Filed: 11/05/22 00:06> Course Vital Signs 11/04/22 11/05/22 22:26 01:30 Temperature 98.2 F Pulse Rate 104 H 88 Respiratory 18 18 Rate Blood Pressure 131/80 132/87 O2 Sat by Pulse 99 100 Oximetry Medical Decision Making <Adolfo Lacy - Last Filed: 11/05/22 00:06> - Lab Data Result diagrams: 11/04/22 23:45 11/04/22 23:45 <Joi Cid - Last Filed: 11/05/22 08:59> - Medical Decision Making Was pt. sent in by a medical professional or institution (, PA, MUD MILL TENDER, urgent care, hospital, or snf...) When possible be specific @ -[No] Did you speak to anyone other than the patient for history (EMS, parent, family, police, friend...)? What history was obtained from this source @ -[No] Did you review nursing and triage notes (agree or disagree)? Why? @ -[I reviewed and agree with nursing and triage notes] Were old charts reviewed (outside hosp., previous admission, EMS record, old EKG, old radiological studies, urgent care reports/EKG's, snf records)? Report findings @ -[No old charts were reviewed] Differential Diagnosis (chest pain, altered mental status, abdominal pain women, abdominal pain men, vaginal bleeding, weakness, fever, dyspnea, syncope, head ache, dizziness, GI bleed, back pain, seizure, CVA, palpatations, mental health, musculoskeletal)? @ -Differential Abdominal Pain Women: Appendicitis, Cholecystitis, diverticulosis, ischemic bowel, pancreatitis, hepatitis, UTI, gastroenteritis, AAA, incarcerated hernia, bowel obstruction, constipation, inflammatory bowel, hepatitis, peptic ulcer disease, splenic infarction, perforated viscus, vulvitis, ovarian torsion, PID, kidney stone, placenta abruption, this is not meant to be an all-inclusive list EKG interpreted by me (3pts min.). @ -None X-rays interpreted by me (1pt min.). @ -[None done] CT interpreted by me (1pt min.). @ -[None done] U/S interpreted by me (1pt. min.). @ -[None done] What testing was considered but not performed or refused? (CT, X-rays, U/S, labs)? Why? @ -[None] What meds were considered but not given or refused? Why? @ -[None] Did you discuss the management of the patient with other professionals (professionals i.e. , PA, MUD MILL TENDER, lab, RT, psych nurse, social services specialist, capacity planning analyst, teacher, restoration officer, case making machine operator)? Give summary @ -[No] Was smoking cessation discussed for >3mins.? @ -[No] Was critical care preformed (if so, how long)? @ -[No] Were there social determinants of health that impacted care today? How? (Homelessness, low income, unemployed, alcoholism, drug addiction, transportation, low edu. Level, literacy, decrease access to med. care, skilled nursing, rehab)? @ -[No] Was there de-escalation of care discussed even if they declined (Discuss DNR or withdrawal of care, Hospice)? DNR status @ -[No] What co-morbidities impacted this encounter? (DM, HTN, Smoking, COPD, CAD, Cancer, CVA, ARF, Chemo, Hep., AIDS, mental health diagnosis, sleep apnea, morbid obesity)? @ -[None] Was patient admitted / discharged? Hospital course, mention meds given and route, prescriptions, significant lab abnormalities, going to OR and other pertinent info. @ -Discharge. At time of evaluation basic labs pending. Patient provided antiemetics and Benadryl. Patient signed out to Dr. Cid. Undiagnosed new problem with uncertain prognosis? @ -[No] Drug Therapy requiring intensive monitoring for toxicity (Heparin, Nitro, Insulin, Cardizem)? @ -[No] Were any procedures done? @ -[No] Diagnosis/symptom? @ -[default] Acute, or Chronic, or Acute on Chronic? @ -[default] Uncomplicated (without systemic symptoms) or Complicated (systemic symptoms)? @ -[default] Side effects of treatment? @ -[No] Exacerbation, Progression, or Severe Exacerbation? @ -[No] Poses a threat to life or bodily function? How? (Chest pain, [place], [place], pneumonia, PE, COPD, DKA, ARF, appy, cholecystitis, CVA, Diverticulitis, Homicidal, Suicidal, threat to staff... and all critical care pts) @ -[No] (Adolfo Lacy) Was patient admitted / discharged? Hospital course, mention meds given and [place], prescriptions, significant lab abnormalities, going to OR and other pertinent info. @ -Patient was signed out to me pending laboratory studies. They are reviewed and demonstrate a leukocytosis. Patient is reevaluated and has not had any improvement in her nausea with the Zofran. I did discuss other medications however patient has several ALLERGIES. She is requesting a second dose of Zofran for which she was given. I discussed the results of the laboratory studies. Patient unable to hold down any drink and therefore will be admitted to the hospital. Spoke with Dr. Ferreira who will admit patient with surgery on consult for the port. Undiagnosed new problem with uncertain prognosis? @ -Yes Drug Therapy requiring intensive monitoring for toicty (Heparin, Nitro, Insulin, [place])? @ -No Were any procedures done? @ -No Diagnosis/symptom? @ -Acute port malfunction, acute exacerbation of gastroparesis, intractable nausea or vomiting Acute, or Chronic, or Acute on Chronic? @ -Acute Uncomplicated (without systemic symptoms) or Complicated (systemic symptoms)?@ - Complicated Side effects of treatment? @ -No Exacerbation, Progression, or Severe Exacerbation? @ -Yes Poses a threat to life or bodily function? How? (Chest pain, [place], [place], pneumonia, PE, COPD, DKA, ARF, appy, cholecystitis, CVA, Diverticulitis, Homicidal, Suicidal, anu to staff... and all critical care pts) @ -No (Joi Cid) - Lab Data Lab Results 11/04/22 11/04/22 Range/Units 23:45 23:45 WBC 17.2 H (3.8-10.6) k/uL RBC 4.43 (3.80-5.40) m/uL Hgb 12.4 (11.4-16.0) gm/dL Hct 38.5 (34.0-46.0) % MCV 87.0 (80.0-100.0) fL MCH 28.1 (25.0-35.0) pg MCHC 32.3 (31.0-37.0) g/dL RDW 14.1 (11.5-15.5) % Plt Count 267 (150-450) k/uL MPV 8.0 Neutrophils % 82 % Lymphocytes % 12 % Monocytes % 5 % Eosinophils % 0 % Basophils % 0 % Neutrophils # 14.1 H (1.3-7.7) k/uL Lymphocytes # 2.1 (1.0-4.8) k/uL Monocytes # 0.8 (0-1.0) k/uL Eosinophils # 0.0 (0-0.7) k/uL Basophils # 0.0 (0-0.2) k/uL Sodium 139 (137-145) mmol/L Potassium 4.4 (3.5-5.1) mmol/L Chloride 105 (98-107) mmol/L Carbon Dioxide 23 (22-30) mmol/L Anion Gap 11 mmol/L BUN 17 (7-17) mg/dL Creatinine 0.94 (0.52-1.04) mg/dL Est GFR (CKD-EPI)AfAm 81 (>60 ml/min/1.73 sqM) Est GFR (CKD-EPI)NonAf 71 (>60 ml/min/1.73 sqM) Glucose 166 H (74-99) mg/dL Calcium 9.4 (8.4-10.2) mg/dL Total Bilirubin 0.4 (0.2-1.3) mg/dL AST 33 (14-36) U/L ALT 25 (4-34) U/L Alkaline Phosphatase 92 (38-126) U/L Total Protein 7.4 (6.3-8.2) g/dL Albumin 4.1 (3.5-5.0) g/dL Disposition <Adolfo Lacy - Last Filed: 11/05/22 00:06> Is patient prescribed a controlled substance at d/c from ED?: No Time of Disposition: 01:12 Decision to Admit Reason: Admit from EC Decision Date: 11/05/22 Decision Time: 01:12 <Joi Cid - Last Filed: 11/05/22 08:59> Clinical Impression: Intractable nausea and vomiting, Gastroparesis Disposition: ADMITTED IP TO THIS [facility] Condition: Stable
[2022-11-05 00:11] LABS: Basophils % (A) 0 %; Eosinophils % (A) 0 %; HCT 38.5 % (34.0-46.0); HGB 12.4 gm/dL (11.4-16.0); Lymphocytes # (A) 2.1 k/uL (1.0-4.8); Lymphocytes % (A) 12 %; MCH 28.1 pg (25.0-35.0); MCHC 32.3 g/dL (31.0-37.0); Monocytes # (A) 0.8 k/uL (0-1.0); Monocytes % (A) 5 %; Neutrophils # (A) 14.1 k/uL (1.3-7.7); Neutrophils % (A) 82 %; Platelet Count 267 k/uL (150-450); RBC 4.43 m/uL (3.80-5.40); RDW 14.1 % (11.5-15.5); WBC 17.2 k/uL (3.8-10.6)
[2022-11-05 00:24] LABS: ALT 25 U/L (4-34); AST 33 U/L (14-36); African American GFR (CKD) 81 (>60 ml/min/1.73 sqM); Albumin 4.1 g/dL (3.5-5.0); Alkaline Phosphatase 92 U/L (38-126); Anion Gap 11 mmol/L; Blood Urea Nitrogen 17 mg/dL (7-17); Calcium 9.4 mg/dL (8.4-10.2); Carbon Dioxide 23 mmol/L (22-30); Chloride 105 mmol/L (98-107); Glucose 166 mg/dL (74-99); Non-African American GFR(CKD) 71 (>60 ml/min/1.73 sqM); Potassium 4.4 mmol/L (3.5-5.1); Sodium 139 mmol/L (137-145); Total Bilirubin 0.4 mg/dL (0.2-1.3); Total Protein 7.4 g/dL (6.3-8.2)
[2022-11-05] MEDS ORDERED: PANTOPRAZOLE 40 MG/10 ML VIAL IVP STA (01:11)
[2022-11-05] MEDS ORDERED: methylPREDNISolone SOD SUCCI 125 MG/2 ML VIAL IV STA (01:11)
[2022-11-05] MEDS ORDERED: NALOXONE 0.4 MG/ML 1 ML VIAL IV PRN (01:12)
[2022-11-05] MEDS ORDERED: SODIUM CHLORIDE 0.9% 2,000 ML IV ONE (01:14)
[2022-11-05] MEDS: SODIUM CHLORIDE 0.9% 1,000 ML IV SCH ×4 (01:26→23:12)
[2022-11-05] MEDS: diphenhydrAMINE 50 MG/ML 1 ML VIAL IVP SCH ×5 (01:26→23:12)
[2022-11-05] MEDS: PANTOPRAZOLE 40 MG/10 ML VIAL IV SCH (08:15)
[2022-11-05] MEDS: ONDANSETRON 4 MG/2 ML VIAL IVP PRN ×2 (08:16→16:02)
[2022-11-05 09:12] LABS: Bacteria,Urine Rare /hpf; Hyaline Casts,Urine 3 /lpf (0-2); Mucus,Urine Few /hpf; RBC,Urine <1 /hpf (0-5); Squamous Epithelial Cell,Urine 2 /hpf (0-4); WBC,Urine 3 /hpf (0-5)
[2022-11-05 09:28] LABS: Appearance,Urine Clear (Clear); Color,Urine Light Red
[2022-11-05 09:29] LABS: Bilirubin,Urine Negative (Negative); Blood,Urine Negative (Negative); Glucose,Urine (UA) Negative (Negative); Ketones,Urine Negative (Negative); Leukocyte Esterase,Urine Negative (Negative); Nitrite,Urine Negative (Negative); PH, Urine 5.5 (5.0-8.0); Protein,Urine Trace (Negative); Specific Gravity,Urine 1.033 (1.001-1.035); Urobilinogen,Urine <0.2 mg/dL (<2.0)
[2022-11-05] MEDS ORDERED: BUTALB/APAP/CAFF 50-325-40MG TAB PO PRN (10:41)
[2022-11-05] MEDS ORDERED: SUMAtriptan succinate 6 MG/0.5 ML VIAL SQ STA (10:48)
[2022-11-05] MEDS ORDERED: DEXTROSE 50% SYRINGE 50 ML IVP PRN ×2 (10:50)
[2022-11-05 11:44] LABS: Glucose,Whole Blood 180 mg/dL (70-110)
[2022-11-05] MEDS ORDERED: KETOROLAC 15 MG/ML 1 ML VIAL IVP PRN (12:04)
[2022-11-05] MEDS: INSULIN ASPART (NovoLOG) 100 UNIT/ML VIAL SQ SCH ×3 (12:28→21:25)
--- NOTE | 2022-11-05 13:19 | P.HPIM ---
History of Present Illness 52-year-old female came in because of nonfunctional port. Gen. surgery was consulted. Patient does have history of sarcoidosis. For which patient receives infliximab infusions. Patient states she has chronic back pain because of which she is on morphine pump at this time patient was also having nausea vomiting which was believed to be secondary to gastroparesis from multiple opiates she is taking. Patient is on liquid diet and in no nausea vomiting today. Patient side is being advanced patient does have leukocytosis but no clear evidence of infection. Patient was comparing of migraine for which patient was given Imitrex REVIEW OF SYSTEMS: CONSTITUTIONAL: No fever, no malaise, no fatigue. HEENT: No recent visual problems or hearing problems. Denied any sore throat. CARDIOVASCULAR: No chest pain, orthopnea, PND, no palpitations, no syncope. PULMONARY: No shortness of breath, no cough, no hemoptysis. GASTROINTESTINAL: As mentioned in HPI NEUROLOGICAL: no weakness, no numbness. HEMATOLOGICAL: Denies any bleeding or petechiae. GENITOURINARY: Denies any burning micturition, frequency, or urgency. MUSCULOSKELETAL/RHEUMATOLOGICAL: Denies any joint pain, swelling, or any muscle pain. ENDOCRINE: Denies any polyuria or polydipsia. The rest of the 14-point review of systems is negative. PHYSICAL EXAMINATION: GENERAL: The patient is alert and oriented x3, not in any acute distress. Well developed, well nourished. HEENT: Pupils are round and equally reacting to light. EOMI. No scleral icterus. No conjunctival pallor. Normocephalic, atraumatic. No pharyngeal erythema. No thyromegaly. CARDIOVASCULAR: S1 and S2 present. No murmurs, rubs, or gallops. PULMONARY: Chest is clear to auscultation, no wheezing or crackles. ABDOMEN: Soft, nontender, nondistended, normoactive bowel sounds. No palpable organomegaly. MUSCULOSKELETAL: No joint swelling or deformity. EXTREMITIES: No cyanosis, clubbing, or pedal edema. NEUROLOGICAL: Gross neurological examination did not reveal any focal deficits. SKIN: No rashes. Assessment and plan -Nausea vomiting due to decreased gastric motility from opiates and morphine pump. Patient to nausea vomiting improved and patient does have bowel sounds an d the will be started on liquid diet advancement as tolerated -Mild functioning port for infliximab infusions. Neurosurgery was consulted. -Hyperthyroidism continue with levothyroxine -History of sarcoidosis, patient will follow-up as an outpatient for infliximab infusions. Patient is not short of breath at this time but feels like she is having sarcoidosis flareup. -Type 2 diabetes mellitus: Sliding insulin -Sleep apnea, obesity -Hyperthyroidism -Leukocytosis reactive we'll repeat the WBC tomorrow no clinical evidence of infection at this time DVT prophylaxis: Lovenox Past Medical History Past Medical History: Asthma, Diabetes Mellitus, GERD/Reflux, Musculoskeletal Disorder, Neurologic Disorder, Sleep Apnea/CPAP/BIPAP, Thyroid Disorder Additional Past Medical History / Comment(s): MS, back pain, DDD, optic neuritis, Gastroparesis., C-Diff (June 2018) leukopenia (sores in mouth) migraines, sleep apnea due to M.S. (no machine), sarcoidosis, cyst in stomach. , hopitalized 10/04/19 after lumbar puncture because heart rate dropped, hospitalized 10/10/19 for headache (post l.p.), states allergy to all adhesive and needs benadryl IV 50mg prior to using tape or tegaderm etc. History of Any Multi-Drug Resistant Organisms: C-DIFF Date of last positivie culture/infection: 2018 MDRO Source:: stool Past Surgical History: Bladder Surgery, Breast Surgery, Hernia Repair, Hysterectomy, Orthopedic Surgery, Tubal Ligation Additional Past Surgical History / Comment(s): rhinoplasty, bladder suspension, breast sx, morphine pump, RT KNEE SCOPE, TUMMY TUCK, Spinal cord stimulator inserted and removed. port august 2019, gastroparesis botox and EGD 11/06/2019, breast implants, gastric surgery (g-poem) 05/05/20, Stent placed on kidney, hernia repair X2 Past Anesthesia/Blood Transfusion Reactions: Motion Sickness, Postoperative Nausea & Vomiting (PONV) Past Psychological History: No Psychological Hx Reported Smoking Status: Never smoker Past Alcohol Use History: Occasional Past Drug Use History: None Reported - Past Family History Father History Unknown: Yes Family Medical History: No Reported History Additional Family Medical History / Comment(s): . Mother History Unknown: Yes Family Medical History: No Reported History Additional Family Medical History / Comment(s): NO FAMILY HISTORY Medications and Allergies Home Medications Medication Instructions Recorded Confirmed Type Albuterol Sulfate [Proair Hfa] 2 puff INHALATION RT-Q6H PRN 09/26/15 11/05/22 History DULoxetine HCL [Cymbalta] 60 mg PO DAILY 01/10/17 11/05/22 History Scopolamine 1 mg/72 Hr Patch 1 patch TRANSDERM Q72H PRN 07/07/17 11/05/22 History [TransDerm Scop] metFORMIN HCL [Glucophage] 500 mg PO BID #60 tab 02/10/18 11/05/22 Rx Levothyroxine Sodium [Synthroid] 112 mcg PO DAILY 12/05/18 11/05/22 History rOPINIRole HCL [Requip] 2 mg PO TID PRN 12/05/18 11/05/22 History Baclofen 20 mg PO TID PRN 04/29/19 11/05/22 History Morphine Pain Pump 1 dose INTRATHECA CONTINUOUS 10/10/19 11/05/22 History Ondansetron Odt [Zofran ODT] 8 mg PO Q6H PRN 11/13/19 11/05/22 History Gabapentin [Neurontin] 100 mg PO TID 05/10/20 11/05/22 History Pantoprazole Sodium [Protonix] 40 mg PO BID 05/10/20 11/05/22 History SUMAtriptan succinate 6 mg SQ BID PRN 05/10/20 11/05/22 History methocarbamoL [Robaxin] 500 mg PO TID PRN 05/10/20 11/05/22 History Infliximab-Dyyb [Inflectra] 1 dose IV Q42D 05/23/20 11/05/22 History oxyCODONE-APAP 10-325MG [Percocet 1 tab PO BID PRN 04/17/22 11/05/22 History 10-325 mg] ALPRAZolam [Xanax] 0.25 mg PO BID 11/05/22 11/05/22 History Albuterol Inhaler [Ventolin Hfa 2 puff INHALATION RT-Q6H PRN 11/05/22 11/05/22 History Inhaler] Allergies Allergy/AdvReac Type Severity Reaction Status Date / Time adhesive Allergy Severe Rash/Hives Verified 11/05/22 12:42 adhesive tape Allergy Severe Rash/Hives Verified 11/05/22 12:42 fentanyl Allergy Severe Rash/Hives Verified 11/05/22 12:42 from patch only latex Allergy Severe Rash/Hives Verified 11/05/22 12:42 metoclopramide [From Reglan] Allergy dystonia Verified 11/05/22 12:42 from IV Reglan prochlorperazine Allergy dystonia Verified 11/05/22 12:42 [From Compazine] Physical Exam Vitals: Vital Signs Temp Pulse Pulse Resp BP BP Pulse Ox 11/05/22 07:00 98.1 F 73 16 100/59 97 11/05/22 02:12 98.8 F 80 16 119/79 100 11/05/22 01:30 88 18 132/87 100 11/04/22 22:26 98.2 F 104 H 18 131/80 99 Intake and Output 11/04/22 11/05/22 11/05/22 22:59 06:59 14:59 Other: Voiding Method Toilet Toilet # Voids 0 Weight 90.718 kg 90.718 kg Results CBC & Chem 7: 11/04/22 23:45 11/04/22 23:45 Labs: Abnormal Lab Results - Last 24 Hours (Table) 11/04/22 11/04/22 11/05/22 Range/Units 23:45 23:45 08:29 WBC 17.2 H (3.8-10.6) k/uL Neutrophils # 14.1 H (1.3-7.7) k/uL Glucose 166 H (74-99) mg/dL POC Glucose (mg/dL) (70-110) mg/dL Urine Bacteria Rare H (None) /hpf Hyaline Casts 3 H (0-2) /lpf Urine Mucus Few H (None) /hpf 11/05/22 Range/Units 11:43 WBC (3.8-10.6) k/uL Neutrophils # (1.3-7.7) k/uL Glucose (74-99) mg/dL POC Glucose (mg/dL) 180 H (70-110) mg/dL Urine Bacteria (None) /hpf Hyaline Casts (0-2) /lpf Urine Mucus (None) /hpf Thrombosis Risk Factor Assmnt - Choose All That Apply Each Factor Represents 1 point: Age 41-60 years, Obesity (BMI >25) Thrombosis Risk Factor Assessment Total Risk Factor Score: 2 Thrombosis Risk Factor Assessment Level: Low Risk
--- NOTE | 2022-11-05 17:14 | P.GSCN ---
History of Present Illness Consult date: 11/05/22 History of present illness: Patient presents with pre-existing gastroparesis and malfunctioning port present for 5 years. She reports being a difficult IV access. May need new port. Past Medical History Past Medical History: Asthma, Diabetes Mellitus, GERD/Reflux, Musculoskeletal Disorder, Neurologic Disorder, Sleep Apnea/CPAP/BIPAP, Thyroid Disorder Additional Past Medical History / Comment(s): MS, back pain, DDD, optic neuritis, Gastroparesis., C-Diff (June 2018) leukopenia (sores in mouth) migraines, sleep apnea due to M.S. (no machine), sarcoidosis, cyst in stomach. , hopitalized 10/04/19 after lumbar puncture because heart rate dropped, hospitalized 10/10/19 for headache (post l.p.), states allergy to all adhesive and needs benadryl IV 50mg prior to using tape or tegaderm etc. History of Any Multi-Drug Resistant Organisms: C-DIFF Year Discovered:: 2018 MDRO Source:: stool Past Surgical History: Bladder Surgery, Breast Surgery, Hernia Repair, Hysterectomy, Orthopedic Surgery, Tubal Ligation Additional Past Surgical History / Comment(s): rhinoplasty, bladder suspension, breast sx, morphine pump, RT KNEE SCOPE, TUMMY TUCK, Spinal cord stimulator inserted and removed. port august 2019, gastroparesis botox and EGD 11/06/2019, breast implants, gastric surgery (g-poem) 05/05/20, Stent placed on kidney, hernia repair X2 Past Anesthesia/Blood Transfusion Reactions: Motion Sickness, Postoperative Nausea & Vomiting (PONV) Past Psychological History: No Psychological Hx Reported Smoking Status: Never smoker Past Alcohol Use History: Occasional Past Drug Use History: None Reported - Past Family History Father History Unknown: Yes Family Medical History: No Reported History Additional Family Medical History / Comment(s): . Mother History Unknown: Yes Family Medical History: No Reported History Additional Family Medical History / Comment(s): NO FAMILY HISTORY Medications and Allergies Home Medications Medication Instructions Recorded Confirmed Type Albuterol Sulfate [Proair Hfa] 2 puff INHALATION RT-Q6H PRN 09/26/15 11/05/22 History DULoxetine HCL [Cymbalta] 60 mg PO DAILY 01/10/17 11/05/22 History Scopolamine 1 mg/72 Hr Patch 1 patch TRANSDERM Q72H PRN 07/07/17 11/05/22 History [TransDerm Scop] metFORMIN HCL [Glucophage] 500 mg PO BID #60 tab 02/10/18 11/05/22 Rx Levothyroxine Sodium [Synthroid] 112 mcg PO DAILY 12/05/18 11/05/22 History rOPINIRole HCL [Requip] 2 mg PO TID PRN 12/05/18 11/05/22 History Baclofen 20 mg PO TID PRN 04/29/19 11/05/22 History Morphine Pain Pump 1 dose INTRATHECA CONTINUOUS 10/10/19 11/05/22 History Ondansetron Odt [Zofran ODT] 8 mg PO Q6H PRN 11/13/19 11/05/22 History Gabapentin [Neurontin] 100 mg PO TID 05/10/20 11/05/22 History Pantoprazole Sodium [Protonix] 40 mg PO BID 05/10/20 11/05/22 History SUMAtriptan succinate 6 mg SQ BID PRN 05/10/20 11/05/22 History methocarbamoL [Robaxin] 500 mg PO TID PRN 05/10/20 11/05/22 History Infliximab-Dyyb [Inflectra] 1 dose IV Q42D 05/23/20 11/05/22 History oxyCODONE-APAP 10-325MG [Percocet 1 tab PO BID PRN 04/17/22 11/05/22 History 10-325 mg] ALPRAZolam [Xanax] 0.25 mg PO BID 11/05/22 11/05/22 History Albuterol Inhaler [Ventolin Hfa 2 puff INHALATION RT-Q6H PRN 11/05/22 11/05/22 History Inhaler] Allergies Allergy/AdvReac Type Severity Reaction Status Date / Time adhesive Allergy Severe Rash/Hives Verified 11/05/22 12:42 adhesive tape Allergy Severe Rash/Hives Verified 11/05/22 12:42 fentanyl Allergy Severe Rash/Hives Verified 11/05/22 12:42 from patch only latex Allergy Severe Rash/Hives Verified 11/05/22 12:42 metoclopramide [From Reglan] Allergy dystonia Verified 11/05/22 12:42 from IV Reglan prochlorperazine Allergy dystonia Verified 11/05/22 12:42 [From Compazine] Surgical - Exam Vital Signs Temp Pulse Resp BP Pulse Ox 98.2 F 104 H 18 131/80 99 11/04/22 22:26 11/04/22 22:26 11/04/22 22:26 11/04/22 22:26 11/04/22 22:26 Results - Labs 11/04/22 23:45 11/04/22 23:45 Abnormal Lab Results - Last 24 Hours (Table) 11/04/22 11/04/22 11/05/22 Range/Units 23:45 23:45 08:29 WBC 17.2 H (3.8-10.6) k/uL Neutrophils # 14.1 H (1.3-7.7) k/uL Glucose 166 H (74-99) mg/dL POC Glucose (mg/dL) (70-110) mg/dL Urine Bacteria Rare H (None) /hpf Hyaline Casts 3 H (0-2) /lpf Urine Mucus Few H (None) /hpf 11/05/22 Range/Units 11:43 WBC (3.8-10.6) k/uL Neutrophils # (1.3-7.7) k/uL Glucose (74-99) mg/dL POC Glucose (mg/dL) 180 H (70-110) mg/dL Urine Bacteria (None) /hpf Hyaline Casts (0-2) /lpf Urine Mucus (None) /hpf Diabetes panel 11/04/22 Range/Units 23:45 Sodium 139 (137-145) mmol/L Potassium 4.4 (3.5-5.1) mmol/L Chloride 105 (98-107) mmol/L Carbon Dioxide 23 (22-30) mmol/L BUN 17 (7-17) mg/dL Creatinine 0.94 (0.52-1.04) mg/dL Glucose 166 H (74-99) mg/dL Calcium 9.4 (8.4-10.2) mg/dL AST 33 (14-36) U/L ALT 25 (4-34) U/L Alkaline Phosphatase 92 (38-126) U/L Total Protein 7.4 (6.3-8.2) g/dL Albumin 4.1 (3.5-5.0) g/dL Calcium panel 11/04/22 Range/Units 23:45 Calcium 9.4 (8.4-10.2) mg/dL Albumin 4.1 (3.5-5.0) g/dL Pituitary panel 11/04/22 Range/Units 23:45 Sodium 139 (137-145) mmol/L Potassium 4.4 (3.5-5.1) mmol/L Chloride 105 (98-107) mmol/L Carbon Dioxide 23 (22-30) mmol/L BUN 17 (7-17) mg/dL Creatinine 0.94 (0.52-1.04) mg/dL Glucose 166 H (74-99) mg/dL Calcium 9.4 (8.4-10.2) mg/dL Adrenal panel 11/04/22 Range/Units 23:45 Sodium 139 (137-145) mmol/L Potassium 4.4 (3.5-5.1) mmol/L Chloride 105 (98-107) mmol/L Carbon Dioxide 23 (22-30) mmol/L BUN 17 (7-17) mg/dL Creatinine 0.94 (0.52-1.04) mg/dL Glucose 166 H (74-99) mg/dL Calcium 9.4 (8.4-10.2) mg/dL Total Bilirubin 0.4 (0.2-1.3) mg/dL AST 33 (14-36) U/L ALT 25 (4-34) U/L Alkaline Phosphatase 92 (38-126) U/L Total Protein 7.4 (6.3-8.2) g/dL Albumin 4.1 (3.5-5.0) g/dL
[2022-11-05 17:24] LABS: Glucose,Whole Blood 140 mg/dL (70-110)
[2022-11-05] MEDS ORDERED: oxyCODONE-APAP 10-325MG 1 EACH TAB PO PRN (17:32)
[2022-11-05] MEDS ORDERED: SUMAtriptan succinate 6 MG/0.5 ML VIAL SQ PRN (17:32)
[2022-11-05] MEDS ORDERED: SCOPOLAMINE 1 MG/72 HR PATCH TRANSDERM PRN (17:32)
[2022-11-05] MEDS ORDERED: BACLOFEN 10 MG TAB PO PRN (17:32)
[2022-11-05] MEDS ORDERED: NON FORMULARY DRUG (Albuterol Inhaler 90 MCG Puff) INHALATION PRN (17:32)
[2022-11-05] MEDS ORDERED: ALBUTEROL NEBULIZED 2.5 MG/3 ML INHALATION PRN (17:32)
[2022-11-05] MEDS ORDERED: methocarbamoL 500 MG TAB PO PRN (17:32)
[2022-11-05] MEDS ORDERED: PATIENT'S OWN (Morphine Pain Pump 1 DOSE) MISCELLANE SCH (17:45)
[2022-11-05] MEDS: ALPRAZolam 0.25 MG TAB PO SCH (20:36)
[2022-11-05] MEDS: GABAPENTIN 100 MG CAP PO SCH (20:36)
[2022-11-05 21:17] LABS: Glucose,Whole Blood 105 mg/dL (70-110)
[2022-11-06] MEDS: ONDANSETRON 4 MG/2 ML VIAL IVP PRN (04:36)
[2022-11-06] MEDS: diphenhydrAMINE 50 MG/ML 1 ML VIAL IVP SCH (05:51)
[2022-11-06] MEDS ORDERED: LEVOTHYROXINE 112 MCG TAB PO SCH (06:30)
[2022-11-06] MEDS: INSULIN ASPART (NovoLOG) 100 UNIT/ML VIAL SQ SCH (06:34)
[2022-11-06 06:36] LABS: Glucose,Whole Blood 98 mg/dL (70-110)
[2022-11-06 08:12] VITALS: BP 100/61; PULSE 65; RESP 13; TEMP 99.1
[2022-11-06] MEDS: SODIUM CHLORIDE 0.9% 1,000 ML IV SCH (08:51)
[2022-11-06] MEDS: ALPRAZolam 0.25 MG TAB PO SCH (08:52)
[2022-11-06] MEDS: GABAPENTIN 100 MG CAP PO SCH (08:52)
[2022-11-06] MEDS: PANTOPRAZOLE 40 MG/10 ML VIAL IV SCH (08:52)
[2022-11-06] MEDS ORDERED: DULoxetine HCL 60 MG CAPSULE.DR PO SCH (09:00)
[2022-11-06] MEDS ORDERED: ENOXAPARIN 40 MG/0.4 ML SYRINGE SQ SCH (09:00)
[2022-11-06 09:01] LABS: Basophils # (A) 0.03 X 10*3/uL (0.00-0.10); Basophils % (A) 0.2 %; Eosinophils # (A) 0.01 X 10*3/uL (0.04-0.35); Eosinophils % (A) 0.1 %; HCT 32.2 % (37.2-46.3); MCH 27.6 pg (27.0-32.0); MCHC 31.1 d/dL (32.0-37.0); Mean Platelet Volume 10.2 FL (9.5-12.2); Monocytes % (A) 6.5 %; NRBC Per 100 WBC 0 X 10*3/uL (0.00-0.01); Neutrophils # (A) 7.93 X 10*3/uL (1.80-7.70); Platelet Count 262 X 10*3/uL (140-440); RBC 3.62 X 10*6/uL (4.10-5.20); RDW 14.1 % (11.5-14.5)
[2022-11-06 09:14] LABS: Blood Urea Nitrogen 14.3 mg/dL (9.0-27.0); Calcium 8.3 mg/dL (8.7-10.3); Carbon Dioxide 21.9 mmol/L (21.6-31.8); Chloride 111 mmol/L (96-109); Glucose 120 mg/dL (70-110); Potassium 3.7 mmol/L (3.5-5.5); Sodium 143 mmol/L (135-145)
[2022-11-06] MEDS ORDERED: BACLOFEN 10 MG TAB PO PRN (11:01)
--- NOTE | 2022-11-06 11:57 | P.PN ---
Subjective Progress Note Date: 11/06/22 Her is at bedside. Patient is changing clothes to leave the hospital, "I am not getting my medications!" She is leaving. Reviewed patients options including continued hospitalization for assessment for surgery vs outpatient with Dr. Denney. Per discussion with nurse, patient is leaving Against Medical Advice. Objective - Vital Signs Vital signs: Vital Signs Temp 99.1 F 11/06/22 07:00 Pulse 65 11/06/22 07:00 Resp 13 11/06/22 08:52 BP 100/61 11/06/22 07:00 Pulse Ox 98 11/06/22 07:00 FiO2 Intake & Output 11/05/22 11/06/22 11/06/22 18:59 06:59 18:59 Intake Total 222 Balance 222 Intake: Oral 222 Other: Voiding Method Toilet Toilet Toilet # Voids 2 1 # Bowel Movements 0 - Labs CBC & Chem 7: 11/06/22 05:31 11/06/22 05:31 Labs: Abnormal Lab Results - Last 24 Hours (Table) 11/05/22 11/06/22 11/06/22 Range/Units 17:23 05:31 05:31 WBC 12.40 H (4.50-10.00) X 10*3/uL RBC 3.62 L (4.10-5.20) X 10*6/uL Hgb 10.0 L (12.0-15.0) d/dL Hct 32.2 L (37.2-46.3) % MCHC 31.1 L (32.0-37.0) d/dL Neutrophils # 7.93 H (1.80-7.70) X 10*3/uL Eosinophils # 0.01 L (0.04-0.35) X 10*3/uL Chloride 111 H (96-109) mmol/L Glucose 120 H (70-110) mg/dL POC Glucose (mg/dL) 140 H (70-110) mg/dL Calcium 8.3 L (8.7-10.3) mg/dL
--- NOTE | 2022-11-06 12:11 | P.PN ---
Subjective 52-year-old female came in because of nonfunctional port. Gen. surgery was consulted. Patient does have history of sarcoidosis. For which patient receives infliximab infusions. Patient states she has chronic back pain because of which she is on morphine pump at this time patient was also having nausea vomiting which was believed to be secondary to gastroparesis from multiple opiates she is taking. Patient is on liquid diet and in no nausea vomiting today. Patient side is being advanced patient does have leukocytosis but no clear evidence of infection. Patient was comparing of migraine for which patient was given Imitrex Patient had a bowel movement apparently she complained of diarrhea although she had a normal soft stool today. Patient does have bowel sounds, patient is on very high-dose of baclofen which was cut down. Patient was complaining of rash although thiswas not evident for me because of which IV Benadryl was dis continued. She states that she is ALLERGIC to tape will try to avoid the tape if she has a rash then will be treated accordingly. Patient received steroids yesterday. she is exhibiting opiate seeking and narcotic seeking behavior and was unhappy with IV Benadryl was discontinued. Patient is scheduled to get the port replaced tomorrow Constitutional: Denied any fatigue denied any fever. Cardio vascular: denied any chest pain, palpitations Gastrointestinal denied any nausea vomiting Pulmonary: Denied any shortness of breath cough Neurologic denied any new focal deficits All inpatient medications were reviewed and appropriate changes in these medications as dictated in the interval history and assessment and plan. PHYSICAL EXAMINATION: GENERAL: The patient is alert and oriented x3, not in any acute distress. Well developed, well nourished. HEENT: Pupils are round and equally reacting to light. EOMI. No scleral icterus. No conjunctival pallor. Normocephalic, atraumatic. No pharyngeal erythema. No thyromegaly. CARDIOVASCULAR: S1 and S2 present. No murmurs, rubs, or gallops. PULMONARY: Chest is clear to auscultation, no wheezing or crackles. ABDOMEN: Soft, nontender, nondistended, normoactive bowel sounds. No palpable organomegaly. MUSCULOSKELETAL: No joint swelling or deformity. EXTREMITIES: No cyanosis, clubbing, or pedal edema. NEUROLOGICAL: Gross neurological examination did not reveal any focal deficits. SKIN: No rashes. Assessment and plan -Nausea vomiting due to decreased gastric motility from opiates and morphine pump. Patient to nausea vomiting improved and patient does have bowel sounds and had a bowel movement. Avoid narcotics. -Mild functioning port for infliximab infusions. Neurosurgery was consulted. -Hyperthyroidism continue with levothyroxine -History of sarcoidosis, patient will follow-up as an outpatient for infliximab infusions. Patient is not short of breath at this time but feels like she is having sarcoidosis flareup. -Type 2 diabetes mellitus: Sliding insulin -Sleep apnea, obesity -Hyperthyroidism -Leukocytosis reactive we'll repeat the WBC tomorrow no clinical evidence of infection at this time DVT prophylaxis: Lovenox Objective - Vital Signs Vital signs: Vital Signs Temp 99.1 F 11/06/22 07:00 Pulse 65 11/06/22 07:00 Resp 13 11/06/22 08:52 BP 100/61 11/06/22 07:00 Pulse Ox 98 11/06/22 07:00 FiO2 Intake & Output 11/05/22 11/06/22 11/06/22 18:59 06:59 18:59 Intake Total 222 Balance 222 Intake: Oral 222 Other: Voiding Method Toilet Toilet Toilet # Voids 2 1 # Bowel Movements 0 - Labs CBC & Chem 7: 11/06/22 05:31 11/06/22 05:31 Labs: Abnormal Lab Results - Last 24 Hours (Table) 11/05/22 11/06/22 11/06/22 Range/Units 17:23 05:31 05:31 WBC 12.40 H (4.50-10.00) X 10*3/uL RBC 3.62 L (4.10-5.20) X 10*6/uL Hgb 10.0 L (12.0-15.0) d/dL Hct 32.2 L (37.2-46.3) % MCHC 31.1 L (32.0-37.0) d/dL Neutrophils # 7.93 H (1.80-7.70) X 10*3/uL Eosinophils # 0.01 L (0.04-0.35) X 10*3/uL Chloride 111 H (96-109) mmol/L Glucose 120 H (70-110) mg/dL POC Glucose (mg/dL) 140 H (70-110) mg/dL Calcium 8.3 L (8.7-10.3) mg/dL
--- NOTE | 2022-11-06 12:49 | P.DS ---
Providers Date of admission: 11/05/22 01:12 Attending physician: José Ferreira Consults: 11/05/22 01:12 Consult Physician Urgent Consulting Provider: Skyler Denney Consult Reason/Comments: Gastroparesis, port malfunction Do you want consulting provider notified?: Yes Primary care physician: [facility] Course: Patient left AMA Patient Condition at Discharge: Stable Plan - Discharge Summary New Discharge Prescriptions: No Action Albuterol Sulfate [Proair Hfa] 2 puff INHALATION RT-Q6H PRN PRN Reason: Shortness Of Breath DULoxetine HCL [Cymbalta] 60 mg PO DAILY Scopolamine 1 mg/72 Hr Patch [TransDerm Scop] 1 patch TRANSDERM Q72H PRN PRN Reason: Nausea metFORMIN HCL [Glucophage] 500 mg PO BID #60 tab rOPINIRole HCL [Requip] 2 mg PO TID PRN PRN Reason: restless legs, sleeping/naps Levothyroxine Sodium [Synthroid] 112 mcg PO DAILY Baclofen 20 mg PO TID PRN PRN Reason: Muscle Pain Morphine Pain Pump 1 dose INTRATHECA CONTINUOUS Ondansetron Odt [Zofran ODT] 8 mg PO Q6H PRN PRN Reason: Nausea Gabapentin [Neurontin] 100 mg PO TID methocarbamoL [Robaxin] 500 mg PO TID PRN PRN Reason: Muscle Pain Pantoprazole Sodium [Protonix] 40 mg PO BID SUMAtriptan succinate 6 mg SQ BID PRN PRN Reason: Migraine Headache Infliximab-Dyyb [Inflectra] 1 dose IV Q42D oxyCODONE-APAP 10-325MG [Percocet 10-325 mg] 1 tab PO BID PRN PRN Reason: Pain ALPRAZolam [Xanax] 0.25 mg PO BID Albuterol Inhaler [Ventolin Hfa Inhaler] 2 puff INHALATION RT-Q6H PRN PRN Reason: Shortness Of Breath Discharge Medication List Albuterol Sulfate [Proair Hfa] 2 puff INHALATION RT-Q6H PRN 09/26/15 [History] DULoxetine HCL [Cymbalta] 60 mg PO DAILY 01/10/17 [History] Scopolamine 1 mg/72 Hr Patch [TransDerm Scop] 1 patch TRANSDERM Q72H PRN 07/07/17 [History] metFORMIN HCL [Glucophage] 500 mg PO BID #60 tab 02/10/18 [Rx] Levothyroxine Sodium [Synthroid] 112 mcg PO DAILY 12/05/18 [History] rOPINIRole HCL [Requip] 2 mg PO TID PRN 12/05/18 [History] Baclofen 20 mg PO TID PRN 04/29/19 [History] Morphine Pain Pump 1 dose INTRATHECA CONTINUOUS 10/10/19 [History] Ondansetron Odt [Zofran ODT] 8 mg PO Q6H PRN 11/13/19 [History] Gabapentin [Neurontin] 100 mg PO TID 05/10/20 [History] Pantoprazole Sodium [Protonix] 40 mg PO BID 05/10/20 [History] SUMAtriptan succinate 6 mg SQ BID PRN 05/10/20 [History] methocarbamoL [Robaxin] 500 mg PO TID PRN 05/10/20 [History] Infliximab-Dyyb [Inflectra] 1 dose IV Q42D 05/23/20 [History] oxyCODONE-APAP 10-325MG [Percocet 10-325 mg] 1 tab PO BID PRN 04/17/22 [History] ALPRAZolam [Xanax] 0.25 mg PO BID 11/05/22 [History] Albuterol Inhaler [Ventolin Hfa Inhaler] 2 puff INHALATION RT-Q6H PRN 11/05/22 [History] Follow up Appointment(s)/Referral(s): Abdi Taylor MD [Primary Care Provider] - 1-2 days Discharge Disposition: LEFT AGAINST MEDICAL ADVICE
== END 2022-11-06 12:05 | disposition left against medical advice (07) ==
LOC: EC 22:24 → 6NMEDSUR 11-05 01:12
PROVIDERS: ADMIT Hospitalist; ATTEND Hospitalist
DX: T82.9XXA Unspecified complication of cardiac and vascular prosthetic device, implant and graft, initial encounter (principal); R11.2 Nausea with vomiting, unspecified; I05.0 Rheumatic mitral stenosis; D86.9 Sarcoidosis, unspecified; G35 Multiple sclerosis; J45.909 Unspecified asthma, uncomplicated; E11.9 Type 2 diabetes mellitus without complications; K21.9 Gastro-esophageal reflux disease without esophagitis; I10 Essential (primary) hypertension; G47.30 Sleep apnea, unspecified; E07.9 Disorder of thyroid, unspecified; G89.29 Other chronic pain; M54.9 Dorsalgia, unspecified; H46.9 Unspecified optic neuritis; Z86.2 Personal history of diseases of the blood and blood-forming organs and certain disorders involving the immune mechanism; K31.84 Gastroparesis; Z86.19 Personal history of other infectious and parasitic diseases; G43.909 Migraine, unspecified, not intractable, without status migrainosus; Z90.710 Acquired absence of both cervix and uterus; Z98.51 Tubal ligation status; Z96.89 Presence of other specified functional implants; Z98.890 Other specified postprocedural states; Z79.84 Long term (current) use of oral hypoglycemic drugs; Z79.890 Hormone replacement therapy; Z79.891 Long term (current) use of opiate analgesic; Z79.899 Other long term (current) drug therapy; Z88.4 Allergy status to anesthetic agent; Z91.040 Latex allergy status; Z88.8 Allergy status to other drugs, medicaments and biological substances; Z91.09 Other allergy status, other than to drugs and biological substances
CPT/HCPCS: 96376 ×3; 96361 ×2; 96372 ×2; 96375 ×2; 96374; 99284; 36415; 80053; 80048; 85025 ×2; 81003; 83036; G0378 ×2; J3030; J1200 ×2; J2930; J2405 ×2; J1650; J1885; C9113 ×2

== ENCOUNTER 2022-12-20 08:57 | Emergency (ER) | payer MEDICARE, OTHER ==
[2022-12-20 09:05] VITALS: BP 100/68; PULSE 102; RESP 18; TEMP 98.2
[2022-12-20] MEDS ORDERED: ONDANSETRON 4 MG/2 ML VIAL IM STA (09:38)
[2022-12-20] MEDS ORDERED: HYDROmorphone 1 MG/ML 1 ML SYRINGE IM STA (09:38)
[2022-12-20] MEDS ORDERED: diphenhydrAMINE 50 MG/ML 1 ML VIAL IM STA (09:38)
--- NOTE | 2022-12-20 09:39 | ED ---
General Adult HPI - General Chief complaint: Recheck/Abnormal Lab/Rx Stated complaint: Joint pain Time Seen by Provider: 12/20/22 09:12 Source: patient, RN notes reviewed Mode of arrival: ambulatory Limitations: no limitations - History of Present Illness Initial comments: This 52-year-old female presents emergency Department chief complaint of pain. This is a chronic ongoing issue. Patient states she's having issues with her check her doses and she has chronic joint pain, migraines from this. This is her typical presentation she has no focal weakness no went to fevers or chills. She states when she has certain procedures she has issues in which she states she was had esophageal dilation at [facility] and which she is followed closely by [facility] for her sarcoidosis. She states that she usually has to receive ferrous steroids to help her symptoms. - Related Data Home Medications Medication Instructions Recorded Confirmed Albuterol Sulfate [Proair Hfa] 2 puff INHALATION RT-Q6H PRN 09/26/15 11/05/22 DULoxetine HCL [Cymbalta] 60 mg PO DAILY 01/10/17 11/05/22 Scopolamine 1 mg/72 Hr Patch 1 patch TRANSDERM Q72H PRN 07/07/17 11/05/22 [TransDerm Scop] Levothyroxine Sodium [Synthroid] 112 mcg PO DAILY 12/05/18 11/05/22 rOPINIRole HCL [Requip] 2 mg PO TID PRN 12/05/18 11/05/22 Baclofen 20 mg PO TID PRN 04/29/19 11/05/22 Morphine Pain Pump 1 dose INTRATHECA CONTINUOUS 10/10/19 11/05/22 Ondansetron Odt [Zofran ODT] 8 mg PO Q6H PRN 11/13/19 11/05/22 Gabapentin [Neurontin] 100 mg PO TID 05/10/20 11/05/22 Pantoprazole Sodium [Protonix] 40 mg PO BID 05/10/20 11/05/22 SUMAtriptan succinate 6 mg SQ BID PRN 05/10/20 11/05/22 methocarbamoL [Robaxin] 500 mg PO TID PRN 05/10/20 11/05/22 Infliximab-Dyyb [Inflectra] 1 dose IV Q42D 05/23/20 11/05/22 oxyCODONE-APAP 10-325MG [Percocet 1 tab PO BID PRN 04/17/22 11/05/22 10-325 mg] ALPRAZolam [Xanax] 0.25 mg PO BID 11/05/22 11/05/22 Albuterol Inhaler [Ventolin Hfa 2 puff INHALATION RT-Q6H PRN 11/05/22 11/05/22 Inhaler] Previous Rx's Medication Instructions Recorded metFORMIN HCL [Glucophage] 500 mg PO BID #60 tab 02/10/18 Allergies Allergy/AdvReac Type Severity Reaction Status Date / Time adhesive Allergy Severe Rash/Hives Verified 12/20/22 09:03 adhesive tape Allergy Severe Rash/Hives Verified 12/20/22 09:03 fentanyl Allergy Severe Rash/Hives Verified 12/20/22 09:03 from patch only latex Allergy Severe Rash/Hives Verified 12/20/22 09:03 metoclopramide [From Reglan] Allergy dystonia Verified 12/20/22 09:03 from IV Reglan prochlorperazine Allergy dystonia Verified 12/20/22 09:03 [From Compazine] Review of Systems ROS Statement: Those systems with pertinent positive or pertinent negative responses have been documented in the HPI. ROS Other: All systems not noted in ROS Statement are negative. Past Medical History Past Medical History: Asthma, Diabetes Mellitus, GERD/Reflux, Musculoskeletal Disorder, Neurologic Disorder, Sleep Apnea/CPAP/BIPAP, Thyroid Disorder Additional Past Medical History / Comment(s): MS, back pain, DDD, optic neuritis, Gastroparesis., C-Diff (June 2018) leukopenia (sores in mouth) migraines, sleep apnea due to M.S. (no machine), sarcoidosis, cyst in stomach. , hopitalized 10/04/19 after lumbar puncture because heart rate dropped, hospitalized 10/10/19 for headache (post l.p.), states allergy to all adhesive and needs benadryl IV 50mg prior to using tape or tegaderm etc. History of Any Multi-Drug Resistant Organisms: C-DIFF Date of last positivie culture/infection: 2018 MDRO Source:: stool Past Surgical History: Bladder Surgery, Breast Surgery, Hernia Repair, Hysterectomy, Orthopedic Surgery, Tubal Ligation Additional Past Surgical History / Comment(s): rhinoplasty, bladder suspension, breast sx, morphine pump, RT KNEE SCOPE, TUMMY TUCK, Spinal cord stimulator inserted and removed. port august 2019, gastroparesis botox and EGD 11/06/2019, breast implants, gastric surgery (g-poem) 05/05/20, Stent placed on kidney, hernia repair X2 Past Anesthesia/Blood Transfusion Reactions: Motion Sickness, Postoperative Nausea & Vomiting (PONV) Past Psychological History: No Psychological Hx Reported Smoking Status: Never smoker Past Alcohol Use History: Occasional Past Drug Use History: None Reported - Past Family History Father History Unknown: Yes Family Medical History: No Reported History Additional Family Medical History / Comment(s): . Mother History Unknown: Yes Family Medical History: No Reported History Additional Family Medical History / Comment(s): NO FAMILY HISTORY General Exam Limitations: no limitations General appearance: alert, in no apparent distress Head exam: Present: atraumatic, normocephalic, normal inspection Eye exam: Present: normal appearance, PERRL, EOMI. Absent: scleral icterus, conjunctival injection, periorbital swelling ENT exam: Present: normal exam, mucous membranes moist Neck exam: Present: normal inspection, full ROM. Absent: tenderness, meningismus, lymphadenopathy Respiratory exam: Present: normal lung sounds bilaterally. Absent: respiratory distress, wheezes, rales, rhonchi, stridor Cardiovascular Exam: Present: regular rate, normal rhythm, normal heart sounds. Absent: systolic murmur, diastolic murmur, rubs, gallop, clicks GI/Abdominal exam: Present: soft, normal bowel sounds. Absent: distended, tenderness, guarding, rebound, rigid Neurological exam: Present: alert, oriented X3 Course Vital Signs 12/20/22 09:00 Temperature 98.2 F Pulse Rate 102 H Respiratory 18 Rate Blood Pressure 100/68 O2 Sat by Pulse 98 Oximetry Medical Decision Making - Medical Decision Making Was pt. sent in by a medical professional or institution (, PA, QUALITY ASSURANCE CALIBRATOR, urgent care, hospital, or custodial...) When possible be specific @ -No Did you speak to anyone other than the patient for history (EMS, parent, family, police, friend...)? What history was obtained from this source @ -No Did you review nursing and triage notes (agree or disagree)? Why? @ -I reviewed and agree with nursing and triage notes Were old charts reviewed (outside hosp., previous admission, EMS record, old EKG, old radiological studies, urgent care reports/EKG's, custodial records)? Report findings @ -No old charts were reviewed Differential Diagnosis (chest pain, altered mental status, abdominal pain women, abdominal pain men, vaginal bleeding, weakness, fever, dyspnea, syncope, headache, dizziness, GI bleed, back pain, seizure, CVA, palpatations, mental health, musculoskeletal)? @ -Chronic pain, second doses, migraine, headache EKG interpreted by me (3pts min.). @ -None X-rays interpreted by me (1pt min.). @ -None done CT interpreted by me (1pt min.). @ -None done U/S interpreted by me (1pt. min.). @ -None done What testing was considered but not performed or refused? (CT, X-rays, U/S, labs)? Why? @ -None What meds were considered but not given or refused? Why? @ -None Did you discuss the management of the patient with other professionals (professionals i.e. , PA, QUALITY ASSURANCE CALIBRATOR, lab, RT, psych nurse, social work professor, digital media representative, teacher, weapons electrical engineering officer, case reviewer)? Give summary @ -No Was smoking cessation discussed for >3mins.? @ -No Was critical care preformed (if so, how long)? @ -No Were there social determinants of health that impacted care today? How? (Homelessness, low income, unemployed, alcoholism, drug addiction, transportation, low edu. Level, literacy, decrease access to med. care, detention, rehab)? @ -No Was there de-escalation of care discussed even if they declined (Discuss DNR or withdrawal of care, Hospice)? DNR status @ -No What co-morbidities impacted this encounter? (DM, HTN, Smoking, COPD, CAD, Cancer, CVA, ARF, Chemo, Hep., AIDS, mental health diagnosis, sleep apnea, morbid obesity)? @ -Chronic pain, sarcoidosis Was patient admitted / discharged? Hospital course, mention meds given and route, prescriptions, significant lab abnormalities, going to OR and other pertinent info. @ -Discharge patient discharged in stable condition after pain control, antiemetics, steroids. Patient agrees with the plan and discharged return parameters were discussed. Undiagnosed new problem with uncertain prognosis? @ -No Drug Therapy requiring intensive monitoring for toxicity (Heparin, Nitro, Insulin, Cardizem)? @ -No Were any procedures done? @ -No Diagnosis/symptom? @ -Chronic pain, sarcoidosis Acute, or Chronic, or Acute on Chronic? @ -Acute on chronic Uncomplicated (without systemic symptoms) or Complicated (systemic symptoms)? @ -Uncomplicated Side effects of treatment? @ -No Exacerbation, Progression, or Severe Exacerbation? @ -No Poses a threat to life or bodily function? How? (Chest pain, [place], [place], pneumonia, PE, COPD, DKA, ARF, appy, cholecystitis, CVA, Diverticulitis, Homicidal, Suicidal, threat to staff... and all critical care pts) @ -No Disposition Clinical Impression: Chronic pain, Headache, Sarcoidosis Disposition: HOME SELF-CARE Condition: Stable Additional Instructions: Please return to the Emergency Department if symptoms worsen or any other concerns. Is patient prescribed a controlled substance at d/c from ED?: No Referrals: Abdi Taylor MD [Primary Care Provider] - 1-2 days Time of Disposition: 09:39
[2022-12-20] MEDS ORDERED: methylPREDNISolone SOD SUCCI 125 MG/2 ML VIAL IM ONE (10:09)
== END 2022-12-20 10:15 | disposition home or self-care (01) ==
LOC: EC 08:57
DX: G89.29 Other chronic pain (principal); R51.9 Headache, unspecified; D86.9 Sarcoidosis, unspecified; J45.909 Unspecified asthma, uncomplicated; E11.9 Type 2 diabetes mellitus without complications; K21.9 Gastro-esophageal reflux disease without esophagitis; E07.9 Disorder of thyroid, unspecified; Z88.8 Allergy status to other drugs, medicaments and biological substances; Z91.040 Latex allergy status; Z79.890 Hormone replacement therapy; Z79.899 Other long term (current) drug therapy
CPT/HCPCS: 99283

== ENCOUNTER 2023-04-12 09:46 | Emergency (ER) | payer MEDICARE, OTHER ==
[2023-04-12 09:55] VITALS: RESP 20; TEMP 98.6
--- NOTE | 2023-04-12 10:10 | ED ---
URI HPI - General Chief Complaint: Upper Respiratory Infection Stated Complaint: Cough Time Seen by Provider: 04/12/23 09:47 Source: patient, RN notes reviewed Mode of arrival: ambulatory Limitations: no limitations - History of Present Illness Initial Comments: Female presents emergency Department with chief complaint of cough congestion. Patient has been sick for several days. She states she has sarcoidosis states she has not had a recent fusion. She complains of bodyaches that her which she believes is caused by her sarcoidosis. Patient states she sees a physician out of a [place]. Patient denies any reported fever. Patient states that she has increasing chest congestion, sinus congestion. - Related Data Home Medications Medication Instructions Recorded Confirmed Albuterol Sulfate [Proair Hfa] 2 puff INHALATION RT-Q6H PRN 09/26/15 11/05/22 DULoxetine HCL [Cymbalta] 60 mg PO DAILY 01/10/17 11/05/22 Scopolamine 1 mg/72 Hr Patch 1 patch TRANSDERM Q72H PRN 07/07/17 11/05/22 [TransDerm Scop] Levothyroxine Sodium [Synthroid] 112 mcg PO DAILY 12/05/18 11/05/22 rOPINIRole HCL [Requip] 2 mg PO TID PRN 12/05/18 11/05/22 Baclofen 20 mg PO TID PRN 04/29/19 11/05/22 Morphine Pain Pump 1 dose INTRATHECA CONTINUOUS 10/10/19 11/05/22 Ondansetron Odt [Zofran ODT] 8 mg PO Q6H PRN 11/13/19 11/05/22 Gabapentin [Neurontin] 100 mg PO TID 05/10/20 11/05/22 Pantoprazole Sodium [Protonix] 40 mg PO BID 05/10/20 11/05/22 SUMAtriptan succinate 6 mg SQ BID PRN 05/10/20 11/05/22 methocarbamoL [Robaxin] 500 mg PO TID PRN 05/10/20 11/05/22 Infliximab-Dyyb [Inflectra] 1 dose IV Q42D 05/23/20 11/05/22 oxyCODONE-APAP 10-325MG [Percocet 1 tab PO BID PRN 04/17/22 11/05/22 10-325 mg] ALPRAZolam [Xanax] 0.25 mg PO BID 11/05/22 11/05/22 Albuterol Inhaler [Ventolin Hfa 2 puff INHALATION RT-Q6H PRN 11/05/22 11/05/22 Inhaler] Previous Rx's Medication Instructions Recorded metFORMIN HCL [Glucophage] 500 mg PO BID #60 tab 02/10/18 Azithromycin [Zithromax Z Pack] 0 tab PO DIRECTED #6 tab 04/12/23 predniSONE 50 mg PO DAILY #5 tab 04/12/23 Allergies Allergy/AdvReac Type Severity Reaction Status Date / Time adhesive Allergy Severe Rash/Hives Verified 04/12/23 09:51 adhesive tape Allergy Severe Rash/Hives Verified 04/12/23 09:51 fentanyl Allergy Severe Rash/Hives Verified 04/12/23 09:51 from patch only latex Allergy Severe Rash/Hives Verified 04/12/23 09:51 metoclopramide [From Reglan] Allergy dystonia Verified 04/12/23 09:51 from IV Reglan prochlorperazine Allergy dystonia Verified 04/12/23 09:51 [From Compazine] Review of Systems ROS Statement: Those systems with pertinent positive or pertinent negative responses have been documented in the HPI. ROS Other: All systems not noted in ROS Statement are negative. Past Medical History Past Medical History: Asthma, Diabetes Mellitus, GERD/Reflux, Musculoskeletal Disorder, Neurologic Disorder, Sleep Apnea/CPAP/BIPAP, Thyroid Disorder Additional Past Medical History / Comment(s): MS, back pain, DDD, optic neuritis, Gastroparesis., C-Diff (June 2018) leukopenia (sores in mouth) migraines, sleep apnea due to M.S. (no machine), sarcoidosis, cyst in stomach. , hopitalized 10/04/19 after lumbar puncture because heart rate dropped, hospitalized 10/10/19 for headache (post l.p.), states allergy to all adhesive and needs benadryl IV 50mg prior to using tape or tegaderm etc. History of Any Multi-Drug Resistant Organisms: C-DIFF Date of last positivie culture/infection: 2018 MDRO Source:: stool Past Surgical History: Bladder Surgery, Breast Surgery, Hernia Repair, Hysterectomy, Orthopedic Surgery, Tubal Ligation Additional Past Surgical History / Comment(s): rhinoplasty, bladder suspension, breast sx, morphine pump, RT KNEE SCOPE, TUMMY TUCK, Spinal cord stimulator inserted and removed. port august 2019, gastroparesis botox and EGD 11/06/2019, breast implants, gastric surgery (g-poem) 05/05/20, Stent placed on kidney, hernia repair X2 Past Anesthesia/Blood Transfusion Reactions: Motion Sickness, Postoperative Nausea & Vomiting (PONV) Past Psychological History: No Psychological Hx Reported Smoking Status: Never smoker Past Alcohol Use History: Occasional Past Drug Use History: None Reported - Past Family History Father History Unknown: Yes Family Medical History: No Reported History Additional Family Medical History / Comment(s): . Mother History Unknown: Yes Family Medical History: No Reported History Additional Family Medical History / Comment(s): NO FAMILY HISTORY General Exam Limitations: no limitations General appearance: alert, in no apparent distress Head exam: Present: atraumatic, normocephalic, normal inspection Eye exam: Present: normal appearance, PERRL, EOMI. Absent: scleral icterus, conjunctival injection, periorbital swelling ENT exam: Present: mucous membranes moist, TM's normal bilaterally. Absent: normal oropharynx (postnasal drainage) Neck exam: Present: normal inspection, full ROM. Absent: tenderness, meningismus, lymphadenopathy Respiratory exam: Present: normal lung sounds bilaterally. Absent: respiratory distress, wheezes, rales, rhonchi, stridor Cardiovascular Exam: Present: normal rhythm, tachycardia, normal heart sounds. Absent: systolic murmur, diastolic murmur, rubs, gallop, clicks GI/Abdominal exam: Present: soft, normal bowel sounds. Absent: distended, tenderness, guarding, rebound, rigid Neurological exam: Present: alert Skin exam: Present: warm, dry, intact, normal color. Absent: rash Course Vital Signs 04/12/23 04/12/23 04/12/23 09:49 10:11 10:19 Temperature 98.6 F Pulse Rate 112 H 94 Respiratory 20 20 20 Rate Blood Pressure 139/90 115/80 O2 Sat by Pulse 96 95 Oximetry Medical Decision Making - Medical Decision Making Was pt. sent in by a medical professional or institution (, PA, TOP DYEING MACHINE TENDER, urgent care, hospital, or senior care...) When possible be specific @ -No Did you speak to anyone other than the patient for history (EMS, parent, family, police, friend...)? What history was obtained from this source @ -No Did you review nursing and triage notes (agree or disagree)? Why? @ -I reviewed and agree with nursing and triage notes Were old charts reviewed (outside hosp., previous admission, EMS record, old EKG, old radiological studies, urgent care reports/EKG's, senior care records)? Report findings @ -No old charts were reviewed Differential Diagnosis (chest pain, altered mental status, abdominal pain women, abdominal pain men, vaginal bleeding, weakness, fever, dyspnea, syncope, headache, dizziness, GI bleed, back pain, seizure, CVA, palpatations, mental health, musculoskeletal)? @ -Chronic pain,COVID 19, RSV, influenza, pneumonia, acute bronchitis, URI, this list is not all inclusive] EKG interpreted by me (3pts min.). @ -None X-rays interpreted by me (1pt min.). @ -[Chest x-ray shows no acute process CT interpreted by me (1pt min.). @ -None done U/S interpreted by me (1pt. min.). @ -None done What testing was considered but not performed or refused? (CT, X-rays, U/S, labs)? Why? @ -None What meds were considered but not given or refused? Why? @ -None Did you discuss the management of the patient with other professionals (professionals i.e. , PA, TOP DYEING MACHINE TENDER, lab, RT, psych nurse, director of social work, causticiser, teacher, security control room officer, social work case manager)? Give summary @ -No Was smoking cessation discussed for >3mins.? @ -No Was critical care preformed (if so, how long)? @ -No Were there social determinants of health that impacted care today? How? (Homelessness, low income, unemployed, alcoholism, drug addiction, transportation, low edu. Level, literacy, decrease access to med. care, detention, rehab)? @ -No Was there de-escalation of care discussed even if they declined (Discuss DNR or withdrawal of care, Hospice)? DNR status @ -No What co-morbidities impacted this encounter? (DM, HTN, Smoking, COPD, CAD, Cancer, CVA, ARF, Chemo, Hep., AIDS, mental health diagnosis, sleep apnea, morbid obesity)? @ -gastroparesis, sarcoidosis Was patient admitted / discharged? Hospital course, mention meds given and route, prescriptions, significant lab abnormalities, going to OR and other pertinent info. @ -Discharged patient's viral swab negative chest x-ray does not show acute process given patient states her second dose this did offer steroids, antibiotics. She states that her steroid has to go through her port and she refuses IM. Patient states that in the oral pill and that she's been on it for years will not pass her stomach per patient and family. Patient is adamant not taking any oral pills advised that she is to follow-up with a specialist regarding further treatment than Undiagnosed new problem with uncertain prognosis? @ -No Drug Therapy requiring intensive monitoring for toxicity (Heparin, Nitro, Insulin, Cardizem)? @ -No Were any procedures done? @ -No Diagnosis/symptom? @ -[Sarcoidosis, tracheobronchitis Acute, or Chronic, or Acute on Chronic? @ -[acute Uncomplicated (without systemic symptoms) or Complicated (systemic symptoms)? @ -[uncomplicated Side effects of treatment? @ -No Exacerbation, Progression, or Severe Exacerbation? @ -No Poses a threat to life or bodily function? How? (Chest pain, [place], MS, pneumonia, PE, COPD, DKA, ARF, appy, cholecystitis, CVA, Diverticulitis, Homicidal, Emilie cidal, threat to staff... and all critical care pts) @ -No - Lab Data Lab Results 04/12/23 Range/Units 10:01 Influenza Type A (PCR) Not Detected (Not Detectd) Influenza Type B (PCR) Not Detected (Not Detectd) RSV (PCR) Not Detected (Not Detectd) SARS-CoV-2 (PCR) Not Detected (Not Detectd) Disposition Clinical Impression: Tracheobronchitis, Sarcoidosis Disposition: HOME SELF-CARE Condition: Stable Instructions (If sedation given, give patient instructions): Upper Respiratory Infection (ED) Additional Instructions: Please return to the Emergency Department if symptoms worsen or any other concerns. Prescriptions: predniSONE 50 mg PO DAILY #5 tab Azithromycin [Zithromax Z Pack] 0 tab PO DIRECTED #6 tab Is patient prescribed a controlled substance at d/c from ED?: No Referrals: Abdi Taylor MD [Primary Care Provider] - 1-2 days Time of Disposition: 10:59
--- NOTE | 2023-04-12 10:14 | XR ---
EXAMINATION TYPE: XR chest 2V DATE OF EXAM: 04/12/2023 COMPARISON: 04/30/2019 HISTORY: 52-year-old female with pain, body ache, chills TECHNIQUE: PA and lateral views FINDINGS: Heart normal size. Right anterior chest wall injection port with catheter tip at the mid SVC level. I nterstitial density has a chronic appearance. No consolidation or pleural effusion. IMPRESSION: Chronic changes. No acute process seen.
[2023-04-12 10:18] VITALS: BP 115/80; PULSE 94
[2023-04-12] MEDS ORDERED: HYDROmorphone 1 MG/ML 1 ML SYRINGE IM STA (10:59)
[2023-04-12] MEDS ORDERED: methylPREDNISolone SOD SUCCI 125 MG/2 ML VIAL IM ONE (10:59)
[2023-04-12] MEDS ORDERED: methylPREDNISolone SOD SUCCI 125 MG/2 ML VIAL IV STA (11:09)
[2023-04-12] MEDS ORDERED: diphenhydrAMINE 50 MG/ML 1 ML VIAL IVP STA (11:13)
--- NOTE | 2023-04-12 12:28 | ED ---
Medical Decision Making - Medical Decision Making Patient left AGAINST MEDICAL ADVICE as she left prior to receiving her treatment that was ordered. - Lab Data Lab Results 04/12/23 Range/Units 10:01 Influenza Type A (PCR) Not Detected (Not Detectd) Influenza Type B (PCR) Not Detected (Not Detectd) RSV (PCR) Not Detected (Not Detectd) SARS-CoV-2 (PCR) Not Detected (Not Detectd) Disposition Clinical Impression: Tracheobronchitis, Sarcoidosis Disposition: LEFT AGAINST MEDICAL ADVICE Condition: Stable Instructions (If sedation given, give patient instructions): Upper Respiratory Infection (ED) Additional Instructions: Please return to the Emergency Department if symptoms worsen or any other con cerns. Prescriptions: predniSONE 50 mg PO DAILY #5 tab prednisoLONE ORAL 15MG/5ML VITALIY [Prelone] 15 ml PO DAILY #75 ml Azithromycin [Zithromax] 0 ml PO DIRECTED #36 ml Azithromycin [Zithromax Z Pack] 0 tab PO DIRECTED #6 tab Referrals: Abdi Taylor MD [Primary Care Provider] - 1-2 days
== END 2023-04-12 12:05 | disposition left against medical advice (07) ==
LOC: EC 09:46
DX: J40 Bronchitis, not specified as acute or chronic (principal); D86.9 Sarcoidosis, unspecified; E11.9 Type 2 diabetes mellitus without complications; K21.9 Gastro-esophageal reflux disease without esophagitis; E07.9 Disorder of thyroid, unspecified; Z79.890 Hormone replacement therapy; Z79.899 Other long term (current) drug therapy; Z91.040 Latex allergy status; Z91.048 Other nonmedicinal substance allergy status; Z88.8 Allergy status to other drugs, medicaments and biological substances; Z20.822 Contact with and (suspected) exposure to COVID-19; Z53.29 Procedure and treatment not carried out because of patient's decision for other reasons
CPT/HCPCS: 71046; 87636; 99283

== ENCOUNTER 2023-06-10 19:27 | Emergency (ER) | payer MEDICARE, OTHER ==
[2023-06-10 19:57] VITALS: RESP 18; TEMP 97.8
--- NOTE | 2023-06-10 20:00 | ED ---
General Adult HPI - General Chief complaint: Nausea/Vomiting/Diarrhea Stated complaint: joint pain Time Seen by Provider: 06/10/23 19:35 Source: patient Mode of arrival: ambulatory Limitations: no limitations - History of Present Illness Initial comments: 52-year-old female with a past medical history significant for MS and sarcoidosis presenting to the ED with a chief complaint of nausea and vomiting. Patient reports yesterday received infliximab infusion. Upon returning home states that she started to develop some nausea and vomiting. No abdominal pain. Additionally, reports over the past few days has had some cough. Denies shortness of breath. Also notes over the past few days has had "pain all over" and muscle cramping especially of her lower legs and feet bilaterally and some joint pains/stiffness. Reports that yesterday upon returning home she received a call and they noted that her albumin was low and advised her to represent to the ED for further evaluation however patient states that she did not want to go back to [facility] due to long wait times and is instead presenting here the following day for further evaluation. No chest pain. No fever or chills. No changes in bladder habits. - Related Data Home Medications Medication Instructions Recorded Confirmed Albuterol Sulfate [Proair Hfa] 2 puff INHALATION RT-Q6H PRN 09/26/15 11/05/22 DULoxetine HCL [Cymbalta] 60 mg PO DAILY 01/10/17 11/05/22 Scopolamine 1 mg/72 Hr Patch 1 patch TRANSDERM Q72H PRN 07/07/17 11/05/22 [TransDerm Scop] Levothyroxine Sodium [Synthroid] 112 mcg PO DAILY 12/05/18 11/05/22 rOPINIRole HCL [Requip] 2 mg PO TID PRN 12/05/18 11/05/22 Baclofen 20 mg PO TID PRN 04/29/19 11/05/22 Morphine Pain Pump 1 dose INTRATHECA CONTINUOUS 10/10/19 11/05/22 Ondansetron Odt [Zofran ODT] 8 mg PO Q6H PRN 11/13/19 11/05/22 Gabapentin [Neurontin] 100 mg PO TID 05/10/20 11/05/22 Pantoprazole Sodium [Protonix] 40 mg PO BID 05/10/20 11/05/22 SUMAtriptan succinate 6 mg SQ BID PRN 05/10/20 11/05/22 methocarbamoL [Robaxin] 500 mg PO TID PRN 05/10/20 11/05/22 Infliximab-Dyyb [Inflectra] 1 dose IV Q42D 05/23/20 11/05/22 oxyCODONE-APAP 10-325MG [Percocet 1 tab PO BID PRN 04/17/22 11/05/22 10-325 mg] ALPRAZolam [Xanax] 0.25 mg PO BID 11/05/22 11/05/22 Albuterol Inhaler [Ventolin Hfa 2 puff INHALATION RT-Q6H PRN 11/05/22 11/05/22 Inhaler] Previous Rx's Medication Instructions Recorded metFORMIN HCL [Glucophage] 500 mg PO BID #60 tab 02/10/18 Azithromycin [Zithromax Z Pack] 0 tab PO DIRECTED #6 tab 04/12/23 Azithromycin [Zithromax] 0 ml PO DIRECTED #36 ml 04/12/23 predniSONE 50 mg PO DAILY #5 tab 04/12/23 prednisoLONE ORAL 15MG/5ML VITALIY 15 ml PO DAILY #75 ml 04/12/23 [Prelone] Allergies Allergy/AdvReac Type Severity Reaction Status Date / Time adhesive Allergy Severe Rash/Hives Verified 06/10/23 19:32 adhesive tape Allergy Severe Rash/Hives Verified 06/10/23 19:32 fentanyl Allergy Severe Rash/Hives Verified 06/10/23 19:32 from patch only latex Allergy Severe Rash/Hives Verified 06/10/23 19:32 metoclopramide [From Reglan] Allergy dystonia Verified 06/10/23 19:32 from IV Reglan prochlorperazine Allergy dystonia Verified 06/10/23 19:32 [From Compazine] Review of Systems ROS Statement: Those systems with pertinent positive or pertinent negative responses have been documented in the HPI. ROS Other: All systems not noted in ROS Statement are negative. Past Medical History Past Medical History: Asthma, Diabetes Mellitus, GERD/Reflux, Musculoskeletal Disorder, Neurologic Disorder, Sleep Apnea/CPAP/BIPAP, Thyroid Disorder Additional Past Medical History / Comment(s): MS, back pain, DDD, optic neuritis, Gastroparesis., C-Diff (June 2018) leukopenia (sores in mouth) migraines, sleep apnea due to M.S. (no machine), sarcoidosis, cyst in stomach. , hopitalized 10/04/19 after lumbar puncture because heart rate dropped, hospitalized 10/10/19 for headache (post l.p.), states allergy to all adhesive and needs benadryl IV 50mg prior to using tape or tegaderm etc. History of Any Multi-Drug Resistant Organisms: C-DIFF Date of last positivie culture/infection: 2018 MDRO Source:: stool Past Surgical History: Bladder Surgery, Breast Surgery, Hernia Repair, Hysterectomy, Orthopedic Surgery, Tubal Ligation Additional Past Surgical History / Comment(s): rhinoplasty, bladder suspension, breast sx, morphine pump, RT KNEE SCOPE, TUMMY TUCK, Spinal cord stimulator inserted and removed. port august 2019, gastroparesis botox and EGD 11/06/2019, breast implants, gastric surgery (g-poem) 05/05/20, Stent placed on kidney, hernia repair X2 Past Anesthesia/Blood Transfusion Reactions: Motion Sickness, Postoperative Nausea & Vomiting (PONV) Past Psychological History: No Psychological Hx Reported Smoking Status: Never smoker Past Alcohol Use History: Occasional Past Drug Use History: None Reported - Past Family History Father History Unknown: Yes Family Medical History: No Reported History Additional Family Medical History / Comment(s): . Mother History Unknown: Yes Family Medical History: No Reported History Additional Family Medical History / Comment(s): NO FAMILY HISTORY General Exam Limitations: no limitations General appearance: alert, in no apparent distress Eye exam: Present: normal appearance Neck exam: Present: normal inspection Respiratory exam: Present: wheezes Cardiovascular Exam: Present: regular rate, normal rhythm GI/Abdominal exam: Present: soft, normal bowel sounds. Absent: distended, tenderness, guarding, rebound, rigid Neurological exam: Present: alert, oriented X3 Skin exam: Present: warm, dry Course Vital Signs 06/10/23 06/10/23 06/10/23 19:28 20:53 21:03 Temperature 97.8 F Pulse Rate 82 64 66 Respiratory 18 Rate Blood Pressure 143/84 O2 Sat by Pulse 98 Oximetry 06/10/23 06/10/23 06/11/23 22:16 23:00 00:00 Temperature Pulse Rate 75 70 70 Respiratory 18 18 18 Rate Blood Pressure 121/72 115/69 113/61 O2 Sat by Pulse 99 98 96 Oximetry Medical Decision Making - Medical Decision Making Was pt. sent in by a medical professional or institution (, GILLIAN, PARATRANSIT OPERATOR, urgent care, hospital, or halfway...) When possible be specific @ -No Did you speak to anyone other than the patient for history (EMS, parent, family, police, friend...)? What history was obtained from this source @ -No Did you review nursing and triage notes (agree or disagree)? Why? @ -I reviewed and agree with nursing and triage notes Were old charts reviewed (outside hosp., previous admission, EMS record, old EKG, old radiological studies, urgent care reports/EKG's, halfway records)? Report findings @ -No old charts were reviewed Differential Diagnosis (chest pain, altered mental status, abdominal pain women, abdominal pain men, vaginal bleeding, weakness, fever, dyspnea, syncope, headache, dizziness, GI bleed, back pain, seizure, CVA, palpatations, mental health, musculoskeletal)? @ -Differential Abdominal Pain Women: Appendicitis, Cholecystitis, diverticulosis, ischemic bowel, pancreatitis, hepatitis, UTI, gastroenteritis, AAA, incarcerated hernia, bowel obstruction, constipation, inflammatory bowel, hepatitis, peptic ulcer disease, splenic infarction, perforated viscus, vulvitis, ovarian torsion, PID, kidney stone, placenta abruption, this is not meant to be an all-inclusive list EKG interpreted by me (3pts min.). @ -None X-rays interpreted by me (1pt min.). @ -Chest x-ray inter by me showing no evidence of acute finding. CT interpreted by me (1pt min.). @ -CT abdomen pelvis interpreted me showing no evidence of acute finding. U/S interpreted by me (1pt. min.). @ -None done What testing was considered but not performed or refused? (CT, X-rays, U/S, labs)? Why? @ -None What meds were considered but not given or refused? Why? @ -None Did you discuss the management of the patient with other professionals (professionals i.e. GILLIAN Garza, PARATRANSIT OPERATOR, lab, RT, psych nurse, psychosocial rehabilitation counselor, research director, teacher, protection officer, case resource manager)? Give summary @ -No Was smoking cessation discussed for >3mins.? @ -No Was critical care preformed (if so, how long)? @ -No Were there social determinants of health that impacted care today? How? (Homelessness, low income, unemployed, alcoholism, drug addiction, transportation, low edu. Level, literacy, decrease access to med. care, longterm, rehab)? @ -No Was there de-escalation of care discussed even if they declined (Discuss DNR or withdrawal of care, Hospice)? DNR status @ -No What co-morbidities impacted this encounter? (DM, HTN, Smoking, COPD, CAD, Cancer, CVA, ARF, Chemo, Hep., AIDS, mental health diagnosis, sleep apnea, morbid obesity)? @ -MS, sarcoidosis Was patient admitted / discharged? Hospital course, mention meds given and route, prescriptions, significant lab abnormalities, going to OR and other pertinent info. @ -Discharge 54-year-old female presents to the ED with complaints of nausea after recent infliximab infusion. Also notes over the past few days has had "pain all over "especially cramping of her bilateral lower legs and feet. Also notes that she was told her albumin was low. Laboratory studies reviewed. CBC, CMP largely unremarkable. Albumin 3.4. Serology panel unremarkable. UA did show greater than 182 red blood cells. No significant evidence of infection. CT abdomen pelvis revealed no acute findings. Chest x-ray revealed no acute findings. At this time vital signs stable afebrile. Discharged home in stable condition to follow-up with her PCP. Discussed return precautions with patient who verbalized agreement. Undiagnosed new problem with uncertain prognosis? @ -No Drug Therapy requiring intensive monitoring for toxicity (Heparin, Nitro, Insulin, Cardizem)? @ -No Were any procedures done? @ -No Diagnosis/symptom? @ -Nausea, myalgias Acute, or Chronic, or Acute on Chronic? @ -Acute Uncomplicated (without systemic symptoms) or Complicated (systemic symptoms)? @ -Uncomplicated Side effects of treatment? @ -No Exacerbation, Progression, or Severe Exacerbation? @ -No Poses a threat to life or bodily function? How? (Chest pain, USA, MD, pneumonia, PE, COPD, DKA, ARF, appy, cholecystitis, CVA, Diverticulitis, Homicidal, Suicidal, threat to staff... and all critical care pts) @ -Unlikely - Lab Data Result diagrams: 06/10/23 20:28 06/10/23 20:28 Lab Results 06/10/23 06/10/23 06/10/23 Range/Units 20:28 20:28 20:28 WBC 5.1 (3.8-10.6) k/uL RBC 3.91 (3.80-5.40) m/uL Hgb 10.5 L (11.4-16.0) gm/dL Hct 32.6 L (34.0-46.0) % MCV 83.3 (80.0-100.0) fL MCH 26.9 (25.0-35.0) pg MCHC 32.3 (31.0-37.0) g/dL RDW 15.0 (11.5-15.5) % Plt Count 249 (150-450) k/uL MPV 7.5 Neutrophils % 40 % Lymphocytes % 46 % Monocytes % 5 % Eosinophils % 7 % Basophils % 1 % Neutrophils # 2.1 (1.3-7.7) k/uL Lymphocytes # 2.4 (1.0-4.8) k/uL Monocytes # 0.2 (0-1.0) k/uL Eosinophils # 0.3 (0-0.7) k/uL Basophils # 0.0 (0-0.2) k/uL Hypochromasia Slight Sodium 140 (137-145) mmol/L Potassium 3.5 (3.5-5.1) mmol/L Chloride 106 (98-107) mmol/L Carbon Dioxide 30 (22-30) mmol/L Anion Gap 4 mmol/L BUN 13 (7-17) mg/dL Creatinine 0.69 (0.52-1.04) mg/dL Est GFR (CKD-EPI)AfAm >90 (>60 ml/min/1.73 sqM) Est GFR (CKD-EPI)NonAf >90 (>60 ml/min/1.73 sqM) Glucose 117 H (74-99) mg/dL Calcium 8.6 (8.4-10.2) mg/dL Total Bilirubin 0.4 (0.2-1.3) mg/dL AST 27 (14-36) U/L ALT 17 (4-34) U/L Alkaline Phosphatase 80 (38-126) U/L C-Reactive Protein <0.5 (<1.0) mg/dL Total Protein 6.1 L (6.3-8.2) g/dL Albumin 3.4 L (3.5-5.0) g/dL Amylase 59 (30-110) U/L Lipase 24 (23-300) U/L Urine Color Yellow Urine Appearance Cloudy H (Clear) Urine pH 5.5 (5.0-8.0) Ur Specific [place] 1.032 (1.001-1.035) Urine Protein Trace H (Negative) Urine Glucose (UA) Negative (Negative) Urine Ketones Negative (Negative) Urine Blood Moderate H (Negative) Urine Nitrite Negative (Negative) Urine Bilirubin Negative (Negative) Urine Urobilinogen <2.0 (<2.0) mg/dL Ur Leukocyte Esterase Negative (Negative) Urine RBC >182 H (0-5) /hpf Urine WBC 2 (0-5) /hpf Ur Squamous Epith Cells 6 H (0-4) /hpf Amorphous Sediment Occasional H (None) /hpf Hyaline Casts 11 H (0-2) /lpf Urine Mucus Moderate H (None) /hpf Influenza Type A (PCR) (Not Detectd) Influenza Type B (PCR) (Not Detectd) RSV (PCR) (Not Detectd) SARS-CoV-2 (PCR) (Not Detectd) 06/10/23 Range/Units 20:28 WBC (3.8-10.6) k/uL RBC (3.80-5.40) m/uL Hgb (11.4-16.0) gm/dL Hct (34.0-46.0) % MCV (80.0-100.0) fL MCH (25.0-35.0) pg MCHC (31.0-37.0) g/dL RDW (11.5-15.5) % Plt Count (150-450) k/uL MPV Neutrophils % % Lymphocytes % % Monocytes % % Eosinophils % % Basophils % % Neutrophils # (1.3-7.7) k/uL Lymphocytes # (1.0-4.8) k/uL Monocytes # (0-1.0) k/uL Eosinophils # (0-0.7) k/uL Basophils # (0-0.2) k/uL Hypochromasia Sodium (137-145) mmol/L Potassium (3.5-5.1) mmol/L Chloride (98-107) mmol/L Carbon Dioxide (22-30) mmol/L Anion Gap mmol/L BUN (7-17) mg/dL Creatinine (0.52-1.04) mg/dL Est GFR (CKD-EPI)AfAm (>60 ml/min/1.73 sqM) Est GFR (CKD-EPI)NonAf (>60 ml/min/1.73 sqM) Glucose (74-99) mg/dL Calcium (8.4-10.2) mg/dL Total Bilirubin (0.2-1.3) mg/dL AST (14-36) U/L ALT (4-34) U/L Alkaline Phosphatase (38-126) U/L C-Reactive Protein (<1.0) mg/dL Total Protein (6.3-8.2) g/dL Albumin (3.5-5.0) g/dL Amylase (30-110) U/L Lipase (23-300) U/L Urine Color Urine Appearance (Clear) Urine pH (5.0-8.0) Ur Specific [place] (1.001-1.035) Urine Protein (Negative) Urine Glucose (UA) (Negative) Urine Ketones (Negative) Urine Blood (Negative) Urine Nitrite (Negative) Urine Bilirubin (Negative) Urine Urobilinogen (<2.0) mg/dL Ur Leukocyte Esterase (Negative) Urine RBC (0-5) /hpf Urine WBC (0-5) /hpf Ur Squamous Epith Cells (0-4) /hpf Amorphous Sediment (None) /hpf Hyaline Casts (0-2) /lpf Urine Mucus (None) /hpf Influenza Type A (PCR) Not Detected (Not Detectd) Influenza Type B (PCR) Not Detected (Not Detectd) RSV (PCR) Not Detected (Not Detectd) SARS-CoV-2 (PCR) Not Detected (Not Detectd) Disposition Clinical Impression: Nausea, Myalgia Disposition: HOME SELF-CARE Condition: Good Instructions (If sedation given, give patient instructions): Acute Nausea and Vomiting (ED) Additional Instructions: Please return to the Emergency Department if symptoms worsen or any other concerns. Please follow-up with your PCP. Is patient prescribed a controlled substance at d/c from ED?: No Referrals: Abdi Taylor MD [Primary Care Provider] - 1-2 days Time of Disposition: 03:00
[2023-06-10 20:42] LABS: Basophils % (A) 1 %; Eosinophils # (A) 0.3 k/uL (0-0.7); Eosinophils % (A) 7 %; HCT 32.6 % (34.0-46.0); HGB 10.5 gm/dL (11.4-16.0); Hypochromasia Slight; Lymphocytes # (A) 2.4 k/uL (1.0-4.8); Lymphocytes % (A) 46 %; MCH 26.9 pg (25.0-35.0); MCHC 32.3 g/dL (31.0-37.0); MCV 83.3 fL (80.0-100.0); Mean Platelet Volume 7.5; Monocytes # (A) 0.2 k/uL (0-1.0); Monocytes % (A) 5 %; Neutrophils # (A) 2.1 k/uL (1.3-7.7); Neutrophils % (A) 40 %; Platelet Count 249 k/uL (150-450); RBC 3.91 m/uL (3.80-5.40); WBC 5.1 k/uL (3.8-10.6)
[2023-06-10] MEDS: SODIUM CHLORIDE 0.9% 1,000 ML IV STA (20:42)
[2023-06-10] MEDS: KETOROLAC 15 MG/ML 1 ML VIAL IVP STA (20:43)
[2023-06-10] MEDS: ONDANSETRON 4 MG/2 ML VIAL IVP STA (20:43)
[2023-06-10 20:52] LABS: Amorphous Sediment,Urine Occasional /hpf; Appearance,Urine Cloudy (Clear); Bilirubin,Urine Negative (Negative); Blood,Urine Moderate (Negative); Color,Urine Yellow; Glucose,Urine (UA) Negative (Negative); Hyaline Casts,Urine 11 /lpf (0-2); Ketones,Urine Negative (Negative); Leukocyte Esterase,Urine Negative (Negative); Mucus,Urine Moderate /hpf; Nitrite,Urine Negative (Negative); PH, Urine 5.5 (5.0-8.0); Protein,Urine Trace (Negative); RBC,Urine >182 /hpf (0-5); Specific Gravity,Urine 1.032 (1.001-1.035); Squamous Epithelial Cell,Urine 6 /hpf (0-4); Urobilinogen,Urine <2.0 mg/dL (<2.0); WBC,Urine 2 /hpf (0-5)
[2023-06-10] MEDS: IPRATROPIUM-ALBUTEROL 3 ML NEB INHALATION STA (20:53)
[2023-06-10] MEDS: diphenhydrAMINE 50 MG/ML 1 ML VIAL IVP STA (20:58)
[2023-06-10 21:01] LABS: ALT 17 U/L (4-34); AST 27 U/L (14-36); African American GFR (CKD) >90 (>60 ml/min/1.73 sqM); Albumin 3.4 g/dL (3.5-5.0); Alkaline Phosphatase 80 U/L (38-126); Amylase 59 U/L (30-110); Anion Gap 4 mmol/L; Blood Urea Nitrogen 13 mg/dL (7-17); Calcium 8.6 mg/dL (8.4-10.2); Carbon Dioxide 30 mmol/L (22-30); Chloride 106 mmol/L (98-107); Glucose 117 mg/dL (74-99); Lipase 24 U/L (23-300); Non-African American GFR(CKD) >90 (>60 ml/min/1.73 sqM); Potassium 3.5 mmol/L (3.5-5.1); Sodium 140 mmol/L (137-145); Total Bilirubin 0.4 mg/dL (0.2-1.3); Total Protein 6.1 g/dL (6.3-8.2)
[2023-06-10 21:28] LABS: C Reactive Protein <0.5 mg/dL (<1.0)
--- NOTE | 2023-06-10 21:47 | XR ---
EXAMINATION TYPE: XR chest 2V DATE OF EXAM: 06/10/2023 8:44 PM CLINICAL INDICATION:Female, 52 years old with history of cough; [facility] COMPARISON: 04/12/2023 TECHNIQUE: XR chest 2V. Frontal and lateral views of the chest.. FINDINGS: Lines/Tubes/Devices: Right chest Mediport again seen with catheter tip over the mid SVC. Heart/mediastinum: Heart size upper normal. Mediastinum appears normal. Pulmonary vascularity: Not increased, Lungs/Pleura: There is no evidence of pleural effusion, focal consolidation, or pneumothorax. Simila r mildly coarsened interstitial lung markings likely chronic changes. Musculoskeletal: No acute osseous abnormality demonstrated in the limits of the exam. Mild degenerat araceli changes. Other findings: None. IMPRESSION: No acute findings, or significant interval change.
[2023-06-10] MEDS: ORPHENADRINE 30 MG/ML 2 ML VIAL IVP STA (22:28)
[2023-06-11] MEDS: MORPHINE SULFATE 4 MG/ML SYRINGE IVP STA (00:20)
--- NOTE | 2023-06-11 01:02 | CT ---
EXAM: CT Abdomen and Pelvis Without Intravenous Contrast CLINICAL HISTORY: ITS.REASON CT Reason: flank pain hematuria r/o stone TECHNIQUE: Axial computed tomography images of the abdomen and pelvis without intravenous contrast. CTDI is 14.5 mGy and DLP is 844.4 mGy-cm. This CT exam was performed using one or more of the following dose reduction techniques: automated exposure control, adjustment of the mA and/or kV according to patient size, and/or use of iterative reconstruction technique. COMPARISON: No relevant prior studies available. FINDINGS: Lung bases: Unremarkable. No mass. No consolidation. ABDOMEN: Liver: Hepatic steatosis. Gallbladder and bile ducts: Unremarkable. No calcified stones. No ductal dilation. Pancreas: Unremarkable. No ductal dilation. Spleen: Unremarkable. No splenomegaly. Adrenals: Unremarkable. No mass. Kidneys and ureters: Unremarkable. No obstructing stones. No hydronephrosis. Stomach and bowel: Unremarkable. No obstruction. No mucosal thickening. PELVIS: Appendix: No findings to suggest acute appendicitis. Bladder: Unremarkable. No stones. Reproductive: Unremarkable as visualized. ABDOMEN and PELVIS: Intraperitoneal space: Unremarkable. No free air. No significant fluid collection. Bones/joints: No acute fracture. No dislocation. Soft tissues: Bilateral breast implants. Vasculature: Unremarkable. No abdominal aortic aneurysm. Lymph nodes: Unremarkable. No enlarged lymph nodes. Tubes, lines and devices: Spinal cord stimulator with generator in the RIGHT abdominal subcutaneous fat. IMPRESSION: No renal stones or hydronephrosis. No obstructive uropathy.
[2023-06-11 03:25] VITALS: PULSE 58
[2023-06-11 04:01] VITALS: BP 103/63
[2023-06-11 11:27] LABS: Erythrocyte Sedimentation Rate 14 mm/Hr (0-30)
== END 2023-06-11 03:38 | disposition home or self-care (01) ==
LOC: EC 19:27
DX: R11.2 Nausea with vomiting, unspecified (principal); M79.10 Myalgia, unspecified site; E11.43 Type 2 diabetes mellitus with diabetic autonomic (poly)neuropathy; K31.84 Gastroparesis; J45.909 Unspecified asthma, uncomplicated; K21.9 Gastro-esophageal reflux disease without esophagitis; E07.9 Disorder of thyroid, unspecified; Z20.822 Contact with and (suspected) exposure to COVID-19; Z79.890 Hormone replacement therapy; Z79.899 Other long term (current) drug therapy; Z88.8 Allergy status to other drugs, medicaments and biological substances; Z91.040 Latex allergy status; Z91.09 Other allergy status, other than to drugs and biological substances
CPT/HCPCS: 99285; 96374; 96375 ×5; 96361 ×2; 36415; 94640; 80053; 85652; 82150; 83690; 85025; 86140; 81001; 87636; 71046; 74176; J2270; J1200; J2360; J2405; J1642; J1885

== ENCOUNTER 2023-06-27 22:46 | Emergency (ER) | payer MEDICARE, OTHER ==
[2023-06-27 23:02] VITALS: TEMP 98.5
--- NOTE | 2023-06-28 00:41 | ED ---
General Adult HPI - General Chief complaint: Recheck/Abnormal Lab/Rx Stated complaint: Sore throat and joint pain Time Seen by Provider: 06/27/23 23:00 Source: patient Mode of arrival: ambulatory Limitations: no limitations - History of Present Illness Initial comments: 53-year-old female with history of sarcoidosis and multiple sclerosis presenting with chief complaint of sore throat and joint pain. Patient states that this has been ongoing for about a week. She thought that things would improve after receiving her infliximab infusion, however symptoms were not alleviated. No fevers or chills. No voice changes or drooling.. No chest pain or difficulty breathing. No abdominal pain. Patient does have issues with chronic nausea and vomiting, history of gastroparesis. She also has history of chronic joint pain. - Related Data Home Medications Medication Instructions Recorded Confirmed Albuterol Sulfate [Proair Hfa] 2 puff INHALATION RT-Q6H PRN 09/26/15 11/05/22 DULoxetine HCL [Cymbalta] 60 mg PO DAILY 01/10/17 11/05/22 Scopolamine 1 mg/72 Hr Patch 1 patch TRANSDERM Q72H PRN 07/07/17 11/05/22 [TransDerm Scop] Levothyroxine Sodium [Synthroid] 112 mcg PO DAILY 12/05/18 11/05/22 rOPINIRole HCL [Requip] 2 mg PO TID PRN 12/05/18 11/05/22 Baclofen 20 mg PO TID PRN 04/29/19 11/05/22 Morphine Pain Pump 1 dose INTRATHECA CONTINUOUS 10/10/19 11/05/22 Ondansetron Odt [Zofran ODT] 8 mg PO Q6H PRN 11/13/19 11/05/22 Gabapentin [Neurontin] 100 mg PO TID 05/10/20 11/05/22 Pantoprazole Sodium [Protonix] 40 mg PO BID 05/10/20 11/05/22 SUMAtriptan succinate 6 mg SQ BID PRN 05/10/20 11/05/22 methocarbamoL [Robaxin] 500 mg PO TID PRN 05/10/20 11/05/22 Infliximab-Dyyb [Inflectra] 1 dose IV Q42D 05/23/20 11/05/22 oxyCODONE-APAP 10-325MG [Percocet 1 tab PO BID PRN 04/17/22 11/05/22 10-325 mg] ALPRAZolam [Xanax] 0.25 mg PO BID 11/05/22 11/05/22 Albuterol Inhaler [Ventolin Hfa 2 puff INHALATION RT-Q6H PRN 11/05/22 11/05/22 Inhaler] Previous Rx's Medication Instructions Recorded metFORMIN HCL [Glucophage] 500 mg PO BID #60 tab 02/10/18 Azithromycin [Zithromax Z Pack] 0 tab PO DIRECTED #6 tab 04/12/23 Azithromycin [Zithromax] 0 ml PO DIRECTED #36 ml 04/12/23 predniSONE 50 mg PO DAILY #5 tab 04/12/23 prednisoLONE ORAL 15MG/5ML VITALIY 15 ml PO DAILY #75 ml 04/12/23 [Prelone] Allergies Allergy/AdvReac Type Severity Reaction Status Date / Time adhesive Allergy Severe Rash/Hives Verified 06/27/23 22:58 adhesive tape Allergy Severe Rash/Hives Verified 06/27/23 22:58 fentanyl Allergy Severe Rash/Hives Verified 06/27/23 22:58 from patch only latex Allergy Severe Rash/Hives Verified 06/27/23 22:58 metoclopramide [From Reglan] Allergy dystonia Verified 06/27/23 22:58 from IV Reglan prochlorperazine Allergy dystonia Verified 06/27/23 22:58 [From Compazine] Review of Systems ROS Statement: Those systems with pertinent positive or pertinent negative responses have been documented in the HPI. ROS Other: All systems not noted in ROS Statement are negative. Past Medical History Past Medical History: Asthma, Diabetes Mellitus, GERD/Reflux, Musculoskeletal Disorder, Neurologic Disorder, Sleep Apnea/CPAP/BIPAP, Thyroid Disorder Additional Past Medical History / Comment(s): MS, back pain, DDD, optic neuritis, Gastroparesis., C-Diff (June 2018) leukopenia (sores in mouth) migraines, sleep apnea due to M.S. (no machine), sarcoidosis, cyst in stomach. , hopitalized 10/04/19 after lumbar puncture because heart rate dropped, hospitalized 10/10/19 for headache (post l.p.), states allergy to all adhesive and needs benadryl IV 50mg prior to using tape or tegaderm etc. History of Any Multi-Drug Resistant Organisms: C-DIFF Date of last positivie culture/infection: 2018 MDRO Source:: stool Past Surgical History: Bladder Surgery, Breast Surgery, Hernia Repair, Hysterectomy, Orthopedic Surgery, Tubal Ligation Additional Past Surgical History / Comment(s): rhinoplasty, bladder suspension, breast sx, morphine pump, RT KNEE SCOPE, TUMMY TUCK, Spinal cord stimulator inserted and removed. port august 2019, gastroparesis botox and EGD 11/06/2019, breast implants, gastric surgery (g-poem) 05/05/20, Stent placed on kidney, hernia repair X2 Past Anesthesia/Blood Transfusion Reactions: Motion Sickness, Postoperative Nausea & Vomiting (PONV) Past Psychological History: No Psychological Hx Reported Smoking Status: Never smoker Past Alcohol Use History: Occasional Past Drug Use History: None Reported - Past Family History Father History Unknown: Yes Family Medical History: No Reported History Additional Family Medical History / Comment(s): . Mother History Unknown: Yes Family Medical History: No Reported History Additional Family Medical History / Comment(s): NO FAMILY HISTORY General Exam Limitations: no limitations General appearance: alert, anxious Head exam: Present: atraumatic, normocephalic Eye exam: Present: normal appearance, EOMI ENT exam: Present: normal oropharynx, mucous membranes moist Neck exam: Present: normal inspection. Absent: meningismus Respiratory exam: Present: normal lung sounds bilaterally. Absent: respiratory distress, wheezes, rales, rhonchi, stridor Cardiovascular Exam: Present: regular rate, normal rhythm, normal heart sounds. Absent: systolic murmur, diastolic murmur, rubs, gallop, clicks Neurological exam: Present: alert, oriented X3 Psychiatric exam: Present: normal affect, normal mood Skin exam: Present: warm, dry Course Vital Signs 06/27/23 06/28/23 06/28/23 22:54 00:30 01:00 Temperature 98.5 F Pulse Rate 104 H 72 Respiratory 21 18 18 Rate Blood Pressure 119/85 115/70 O2 Sat by Pulse 98 98 Oximetry 06/28/23 06/28/23 02:00 03:06 Temperature Pulse Rate 76 74 Respiratory 18 18 Rate Blood Pressure 115/64 118/77 O2 Sat by Pulse 95 95 Oximetry Medical Decision Making - Medical Decision Making Was pt. sent in by a medical professional or institution (Dr., PA, MANAGER PRO[employer], urgent care, hospital, or long-term...) When possible be specific @ -No Did you speak to anyone other than the patient for history (EMS, parent, family, police, friend...)? What history was obtained from this source @ -No Did you review nursing and triage notes (agree or disagree)? Why? @ -I reviewed and agree with nursing and triage notes Were old charts reviewed (outside hosp., previous admission, EMS record, old EKG, old radiological studies, urgent care reports/EKG's, long-term records)? Report findings @ -Previous visits reviewed Differential Diagnosis (chest pain, altered mental status, abdominal pain women, abdominal pain men, vaginal bleeding, weakness, fever, dyspnea, syncope, headache, dizziness, GI bleed, back pain, seizure, CVA, palpatations, mental health, musculoskeletal)? @ -Differential includes viral syndrome, dehydration, multiple sclerosis flare, not an all-inclusive list EKG interpreted by me (3pts min.). @ -As above X-rays interpreted by me (1pt min.). @ -None done CT interpreted by me (1pt min.). @ -None done U/S interpreted by me (1pt. min.). @ -None done What testing was considered but not performed or refused? (CT, X-rays, U/S, labs)? Why? @ -None What meds were considered but not given or refused? Why? @ -None Did you discuss the management of the patient with other professionals (professionals i.e. GILLIAN Garza, MANAGER PRO[employer], lab, RT, psych nurse, social science instructor, slip laster, teacher, department of natural resources officer, case advocate)? Give summary @ -No Was smoking cessation discussed for >3mins.? @ -No Was critical care preformed (if so, how long)? @ -No Were there social determinants of health that impacted care today? How? (Homelessness, low income, unemployed, alcoholism, drug addiction, transportation, low edu. Level, literacy, decrease access to med. care, [facility], rehab)? @ -No Was there de-escalation of care discussed even if they declined (Discuss DNR or withdrawal of care, Hospice)? DNR status @ -No What co-morbidities impacted this encounter? (DM, HTN, Smoking, COPD, CAD, Cancer, CVA, ARF, Chemo, Hep., AIDS, mental health diagnosis, sleep apnea, morbid obesity)? @ -Multiple sclerosis, sarcoidosis Was patient admitted / discharged? Hospital course, mention meds given and route, prescriptions, significant lab abnormalities, going to OR and other pertinent info. @ -53-year-old female presenting with chief complaint of diffuse joint pain and sore throat. History and physical exam are conducted. No midline shift. Normal posterior pharynx. No muffled voice or drooling. Heart and lungs are clear to auscultation. The patient is given pain and nausea meds as well as Decadron for sore throat. CBC and CMP requires no action. She is negative for influenza, RSV, COVID, group A strep. Assessment she reports improvement in her symptoms. Patient would like to be discharged home. Follow-up with PCP. Report back to ER with any new or worsening symptoms. Discussed return parameters and answered all questions. Patient conveyed verbal understanding and agreed to the plan. I discussed this case in detail with my attending Dr. Garland Undiagnosed new problem with uncertain prognosis? @ -No Drug Therapy requiring intensive monitoring for toxicity (Heparin, Nitro, Insulin, Cardizem)? @ -No Were any procedures done? @ -No Diagnosis/symptom? @ -Pharyngitis Acute, or Chronic, or Acute on Chronic? @ -Acute Uncomplicated (without systemic symptoms) or Complicated (systemic symptoms)? @ -Uncomplicated Side effects of treatment? @ -No Exacerbation, Progression, or Severe Exacerbation? @ -No Poses a threat to life or bodily function? How? (Chest pain, [place], [place], pneumonia, PE, COPD, DKA, ARF, appy, cholecystitis, CVA, Diverticulitis, Homicidal, Suicidal, threat to staff... and all critical care pts) @ -Low likelihood Diagnosis/symptom? @Chronic pain Acute, or Chronic, or Acute on Chronic? @Acute on chronic Uncomplicated (without systemic symptoms) or Complicated (systemic symptoms)? @Uncomplicated Side effects of treatment? @None Exacerbation, Progression, or Severe Exacerbation] @No Poses a threat to life or bodily function? @Low likelihood - Lab Data Result diagrams: 06/28/23 00:34 06/28/23 00:34 Lab Results 06/27/23 06/28/23 06/28/23 Range/Units 23:36 00:34 00:34 WBC 5.2 (3.8-10.6) k/uL RBC 4.49 (3.80-5.40) m/uL Hgb 11.7 (11.4-16.0) gm/dL Hct 37.4 (34.0-46.0) % MCV 83.3 (80.0-100.0) fL MCH 26.1 (25.0-35.0) pg MCHC 31.3 (31.0-37.0) g/dL RDW 14.7 (11.5-15.5) % Plt Count 256 (150-450) k/uL MPV 7.2 Neutrophils % 37 % Lymphocytes % 48 % Monocytes % 6 % Eosinophils % 6 % Basophils % 1 % Neutrophils # 1.9 (1.3-7.7) k/uL Lymphocytes # 2.5 (1.0-4.8) k/uL Monocytes # 0.3 (0-1.0) k/uL Eosinophils # 0.3 (0-0.7) k/uL Basophils # 0.0 (0-0.2) k/uL Hypochromasia Slight Sodium 139 (137-145) mmol/L Potassium 4.5 (3.5-5.1) mmol/L Chloride 108 H (98-107) mmol/L Carbon Dioxide 27 (22-30) mmol/L Anion Gap 4 mmol/L BUN 18 H (7-17) mg/dL Creatinine 0.75 (0.52-1.04) mg/dL Est GFR (CKD-EPI)AfAm >90 (>60 ml/min/1.73 sqM) Est GFR (CKD-EPI)NonAf >90 (>60 ml/min/1.73 sqM) Glucose 102 H (74-99) mg/dL Calcium 8.9 (8.4-10.2) mg/dL Total Bilirubin 0.4 (0.2-1.3) mg/dL AST 37 H (14-36) U/L ALT 28 (4-34) U/L Alkaline Phosphatase 89 (38-126) U/L Total Protein 6.7 (6.3-8.2) g/dL Albumin 3.6 (3.5-5.0) g/dL Influenza Type A (PCR) Not Detected (Not Detectd) Influenza Type B (PCR) Not Detected (Not Detectd) RSV (PCR) Not Detected (Not Detectd) SARS-CoV-2 (PCR) Not Detected (Not Detectd) Group A Strep (PCR) (Not Detectd) 06/28/23 Range/Units 00:34 WBC (3.8-10.6) k/uL RBC (3.80-5.40) m/uL Hgb (11.4-16.0) gm/dL Hct (34.0-46.0) % MCV (80.0-100.0) fL MCH (25.0-35.0) pg MCHC (31.0-37.0) g/dL RDW (11.5-15.5) % Plt Count (150-450) k/uL MPV Neutrophils % % Lymphocytes % % Monocytes % % Eosinophils % % Basophils % % Neutrophils # (1.3-7.7) k/uL Lymphocytes # (1.0-4.8) k/uL Monocytes # (0-1.0) k/uL Eosinophils # (0-0.7) k/uL Basophils # (0-0.2) k/uL Hypochromasia Sodium (137-145) mmol/L Potassium (3.5-5.1) mmol/L Chloride (98-107) mmol/L Carbon Dioxide (22-30) mmol/L Anion Gap mmol/L BUN (7-17) mg/dL Creatinine (0.52-1.04) mg/dL Est GFR (CKD-EPI)AfAm (>60 ml/min/1.73 sqM) Est GFR (CKD-EPI)NonAf (>60 ml/min/1.73 sqM) Glucose (74-99) mg/dL Calcium (8.4-10.2) mg/dL Total Bilirubin (0.2-1.3) mg/dL AST (14-36) U/L ALT (4-34) U/L Alkaline Phosphatase (38-126) U/L Total Protein (6.3-8.2) g/dL Albumin (3.5-5.0) g/dL Influenza Type A (PCR) (Not Detectd) Influenza Type B (PCR) (Not Detectd) RSV (PCR) (Not Detectd) SARS-CoV-2 (PCR) (Not Detectd) Group A Strep (PCR) NOT DETECTED (Not Detectd) Disposition Clinical Impression: Chronic pain, Pharyngitis Disposition: HOME SELF-CARE Condition: Good Instructions (If sedation given, give patient instructions): Pharyngitis (ED) Additional Instructions: Follow up with PCP. Report back to ER with any new or worsening symptoms. Is patient prescribed a controlled substance at d/c from ED?: No Referrals: Abdi Taylor MD [Primary Care Provider] - 1-2 days Time of Disposition: 02:43
[2023-06-28 00:43] LABS: Basophils % (A) 1 %; Eosinophils # (A) 0.3 k/uL (0-0.7); Eosinophils % (A) 6 %; HCT 37.4 % (34.0-46.0); HGB 11.7 gm/dL (11.4-16.0); Hypochromasia Slight; Lymphocytes # (A) 2.5 k/uL (1.0-4.8); Lymphocytes % (A) 48 %; MCH 26.1 pg (25.0-35.0); MCHC 31.3 g/dL (31.0-37.0); MCV 83.3 fL (80.0-100.0); Mean Platelet Volume 7.2; Monocytes # (A) 0.3 k/uL (0-1.0); Monocytes % (A) 6 %; Neutrophils # (A) 1.9 k/uL (1.3-7.7); Neutrophils % (A) 37 %; Platelet Count 256 k/uL (150-450); RBC 4.49 m/uL (3.80-5.40); RDW 14.7 % (11.5-15.5); WBC 5.2 k/uL (3.8-10.6)
[2023-06-28] MEDS: KETOROLAC 15 MG/ML 1 ML VIAL IVP STA (00:44)
[2023-06-28] MEDS: DEXAMETHASONE SOD PHOSPHATE 10 MG/ML 1 ML VIAL IV STA (00:44)
[2023-06-28 00:52] LABS: ALT 28 U/L (4-34); AST 37 U/L (14-36); African American GFR (CKD) >90 (>60 ml/min/1.73 sqM); Albumin 3.6 g/dL (3.5-5.0); Alkaline Phosphatase 89 U/L (38-126); Anion Gap 4 mmol/L; Blood Urea Nitrogen 18 mg/dL (7-17); Calcium 8.9 mg/dL (8.4-10.2); Carbon Dioxide 27 mmol/L (22-30); Chloride 108 mmol/L (98-107); Glucose 102 mg/dL (74-99); Non-African American GFR(CKD) >90 (>60 ml/min/1.73 sqM); Potassium 4.5 mmol/L (3.5-5.1); Sodium 139 mmol/L (137-145); Total Bilirubin 0.4 mg/dL (0.2-1.3); Total Protein 6.7 g/dL (6.3-8.2)
[2023-06-28 01:33] VITALS: RESP 18
[2023-06-28] MEDS: ONDANSETRON 4 MG/2 ML VIAL IVP STA (02:06)
[2023-06-28] MEDS: HYDROmorphone 1 MG/ML 1 ML SYRINGE IVP STA (02:08)
[2023-06-28 03:12] VITALS: BP 118/77; PULSE 74
== END 2023-06-28 03:07 | disposition home or self-care (01) ==
LOC: EC 22:46
DX: G89.29 Other chronic pain (principal); J02.9 Acute pharyngitis, unspecified; G35 Multiple sclerosis; M25.50 Pain in unspecified joint; D86.9 Sarcoidosis, unspecified; Z79.899 Other long term (current) drug therapy; Z91.040 Latex allergy status; Z91.09 Other allergy status, other than to drugs and biological substances; Z88.8 Allergy status to other drugs, medicaments and biological substances
CPT/HCPCS: 36415; 80053; 85025; 87636; 87651; 96374; 96375; 99284

== ENCOUNTER → 2023-07-03 | Outpatient (CLI) | payer MEDICARE, OTHER ==
--- NOTE | 2023-07-03 13:47 | XR ---
EXAMINATION TYPE: XR sinus DATE OF EXAM: 07/03/2023 1:19 PM CLINICAL INDICATION:Female, 53 years old with history of R09.81 sinus congestion; [facility] COMPARISON: None TECHNIQUE: Sinuses evaluated in frontal, lateral and Husain projection. FINDINGS: Radiographic evaluation of the orbits fail to demonstrate evidence of an orbital fracture. There is n o radiopaque foreign body identified. The adjacent paranasal sinuses are well aerated an without evid ence of intra-cavitary fluid accumulation. The nasal bridge appears intact. The mandible appears inta ct. Mastoid air cells are well aerated. The frontal sinus and maxillary sinuses are well aerated. IMPRESSION: No evidence of significant paranasal sinus disease. Consider CT sinus for complete evaluation of the sinuses.
== END | disposition home or self-care (01) ==
LOC: RADXRMAIN 13:03
PROVIDERS: ATTEND Internal Medicine
DX: R09.81 Nasal congestion (principal)
CPT/HCPCS: 70220

== ENCOUNTER 2023-07-11 22:18 | Observation (INO) | payer MEDICARE, OTHER ==
[2023-07-11] MEDS ORDERED: methylPREDNISolone SOD SUCCI 125 MG/2 ML VIAL IV STA (23:22)
[2023-07-11] MEDS: SODIUM CHLORIDE 0.9% 1,000 ML IV ONE (23:22)
[2023-07-11] MEDS: PANTOPRAZOLE 40 MG/10 ML VIAL IVP STA (23:22)
[2023-07-11] MEDS: methylPREDNISolone SOD SUCCI 125 MG/2 ML VIAL IV STA (23:22)
--- NOTE | 2023-07-11 23:35 | ED ---
General Adult HPI - General Chief complaint: Recheck/Abnormal Lab/Rx Stated complaint: Recheck-sent by PCP Time Seen by Provider: 07/11/23 22:35 Source: patient, RN notes reviewed, old records reviewed Mode of arrival: ambulatory Limitations: no limitations - History of Present Illness Initial comments: 53-year-old female with complex medical history including MS, sarcoidosis, and gastroparesis presenting with generalized swelling, fatigue, nausea. Patient has had several ER visits and was recommended by her pricing analyst to be admitted for IV treatment of ongoing symptoms. Patient has had nasal congestion. She has had workup for viruses and this was felt by her primary care provider to be related to a sinusitis. She has significant gastroparesis and has hard time taking oral medications. - Related Data Home Medications Medication Instructions Recorded Confirmed Albuterol Sulfate [Proair Hfa] 2 puff INHALATION RT-Q6H PRN 09/26/15 11/05/22 DULoxetine HCL [Cymbalta] 60 mg PO DAILY 01/10/17 11/05/22 Scopolamine 1 mg/72 Hr Patch 1 patch TRANSDERM Q72H PRN 07/07/17 11/05/22 [TransDerm Scop] Levothyroxine Sodium [Synthroid] 112 mcg PO DAILY 12/05/18 11/05/22 rOPINIRole HCL [Requip] 2 mg PO TID PRN 12/05/18 11/05/22 Baclofen 20 mg PO TID PRN 04/29/19 11/05/22 Morphine Pain Pump 1 dose INTRATHECA CONTINUOUS 10/10/19 11/05/22 Ondansetron Odt [Zofran ODT] 8 mg PO Q6H PRN 11/13/19 11/05/22 Gabapentin [Neurontin] 100 mg PO TID 05/10/20 11/05/22 Pantoprazole Sodium [Protonix] 40 mg PO BID 05/10/20 11/05/22 SUMAtriptan succinate 6 mg SQ BID PRN 05/10/20 11/05/22 methocarbamoL [Robaxin] 500 mg PO TID PRN 05/10/20 11/05/22 Infliximab-Dyyb [Inflectra] 1 dose IV Q42D 05/23/20 11/05/22 oxyCODONE-APAP 10-325MG [Percocet 1 tab PO BID PRN 04/17/22 11/05/22 10-325 mg] ALPRAZolam [Xanax] 0.25 mg PO BID 11/05/22 11/05/22 Albuterol Inhaler [Ventolin Hfa 2 puff INHALATION RT-Q6H PRN 11/05/22 11/05/22 Inhaler] Previous Rx's Medication Instructions Recorded metFORMIN HCL [Glucophage] 500 mg PO BID #60 tab 02/10/18 Azithromycin [Zithromax Z Pack] 0 tab PO DIRECTED #6 tab 04/12/23 Azithromycin [Zithromax] 0 ml PO DIRECTED #36 ml 04/12/23 predniSONE 50 mg PO DAILY #5 tab 04/12/23 prednisoLONE ORAL 15MG/5ML VITALIY 15 ml PO DAILY #75 ml 04/12/23 [Prelone] Allergies Allergy/AdvReac Type Severity Reaction Status Date / Time adhesive Allergy Severe Rash/Hives Verified 07/11/23 22:22 adhesive tape Allergy Severe Rash/Hives Verified 07/11/23 22:22 fentanyl Allergy Severe Rash/Hives Verified 07/11/23 22:22 from patch only latex Allergy Severe Rash/Hives Verified 07/11/23 22:22 metoclopramide [From Reglan] Allergy dystonia Verified 07/11/23 22:22 from IV Reglan prochlorperazine Allergy dystonia Verified 07/11/23 22:22 [From Compazine] Review of Systems ROS Statement: Those systems with pertinent positive or pertinent negative responses have been documented in the HPI. ROS Other: All systems not noted in ROS Statement are negative. Past Medical History Past Medical History: Asthma, Diabetes Mellitus, GERD/Reflux, Musculoskeletal Disorder, Neurologic Disorder, Sleep Apnea/CPAP/BIPAP, Thyroid Disorder Additional Past Medical History / Comment(s): MS, back pain, DDD, optic neuritis, Gastroparesis., C-Diff (June 2018) leukopenia (sores in mouth) migraines, sleep apnea due to M.S. (no machine), sarcoidosis, cyst in stomach. , hopitalized 10/04/19 after lumbar puncture because heart rate dropped, hospitalized 10/10/19 for headache (post l.p.), states allergy to all adhesive and needs benadryl IV 50mg prior to using tape or tegaderm etc. History of Any Multi-Drug Resistant Organisms: C-DIFF Date of last positivie culture/infection: 2018 MDRO Source:: stool Past Surgical History: Bladder Surgery, Breast Surgery, Hernia Repair, Hysterectomy, Orthopedic Surgery, Tubal Ligation Additional Past Surgical History / Comment(s): rhinoplasty, bladder suspension, breast sx, morphine pump, RT KNEE SCOPE, TUMMY TUCK, Spinal cord stimulator inserted and removed. port august 2019, gastroparesis botox and EGD 11/06/2019, breast implants, gastric surgery (g-poem) 05/05/20, Stent placed on kidney, hernia repair X2 Past Anesthesia/Blood Transfusion Reactions: Motion Sickness, Postoperative Nausea & Vomiting (PONV) Past Psychological History: No Psychological Hx Reported Smoking Status: Never smoker Past Alcohol Use History: Occasional Past Drug Use History: None Reported - Past Family History Father History Unknown: Yes Family Medical History: No Reported History Additional Family Medical History / Comment(s): . Mother History Unknown: Yes Family Medical History: No Reported History Additional Family Medical History / Comment(s): NO FAMILY HISTORY General Exam Limitations: no limitations General appearance: alert, in no apparent distress Head exam: Present: atraumatic, normocephalic Eye exam: Present: normal appearance, PERRL ENT exam: Present: mucous membranes dry Respiratory exam: Present: normal lung sounds bilaterally. Absent: respiratory distress, wheezes Cardiovascular Exam: Present: regular rate, normal rhythm GI/Abdominal exam: Present: soft. Absent: distended, tenderness Extremities exam: Present: normal inspection, normal capillary refill Neurological exam: Present: alert, oriented X3, CN II-XII intact. Absent: motor sensory deficit Skin exam: Present: warm, dry, pallor Course Vital Signs 07/11/23 07/11/23 07/12/23 22:19 23:44 00:35 Temperature 97.9 F Pulse Rate 91 76 74 Respiratory 18 14 16 Rate Blood Pressure 138/80 139/87 141/96 O2 Sat by Pulse 96 99 95 Oximetry Medical Decision Making - Medical Decision Making Was pt. sent in by a medical professional or institution (, PA, AUTOMOBILE [employer]OCATION ENGINEER, urgent care, hospital, or residential...) When possible be specific @ -No Did you speak to anyone other than the patient for history (EMS, parent, family, police, friend...)? What history was obtained from this source @ -Patient's Did you review nursing and triage notes (agree or disagree)? Why? @ -I reviewed and agree with nursing and triage notes Were old charts reviewed (outside hosp., previous admission, EMS record, old EKG, old radiological studies, urgent care reports/EKG's, residential records)? Report findings @ -No old charts were reviewed Differential Diagnosis (chest pain, altered mental status, abdominal pain women, abdominal pain men, vaginal bleeding, weakness, fever, dyspnea, syncope, headache, dizziness, GI bleed, back pain, seizure, CVA, palpatations, mental health, musculoskeletal)? @ -[Differential Weakness: Hypoglycemia, shock, sepsis, hyponatremia, anemia, infection, IA, ETOH, adverse medicine reaction, overdose, stroke, this is not meant to be an all-inclusive list. EKG interpreted by me (3pts min.). @ -As above X-rays interpreted by me (1pt min.). @ -None done CT interpreted by me (1pt min.). @ -None done U/S interpreted by me (1pt. min.). @ -None done What testing was considered but not performed or refused? (CT, X-rays, U/S, labs)? Why? @ -None What meds were considered but not given or refused? Why? @ -None Did you discuss the management of the patient with other professionals (professionals i.e. , PA, AUTOMOBILE RELOCATION ENGINEER, lab, RT, psych nurse, marriage and family social worker, medical research assistant, teacher, foreign policy officer, caseworker protective services)? Give summary @ -[Case discussed with Dr. Diaz who will admit. Was smoking cessation discussed for >3mins.? @ -No Was critical care preformed (if so, how long)? @ -No Were there social determinants of health that impacted care today? How? (Homelessness, low income, unemployed, alcoholism, drug addiction, transportation, low edu. Level, literacy, decrease access to med. care, intermediate, rehab)? @ -No Was there de-escalation of care discussed even if they declined (Discuss DNR or withdrawal of care, Hospice)? DNR status @ -No What co-morbidities impacted this encounter? (DM, HTN, Smoking, COPD, CAD, Cancer, CVA, ARF, Chemo, Hep., AIDS, mental health diagnosis, sleep apnea, morbid obesity)? @ -MS, sarcoidosis, gastroparesis Was patient admitted / discharged? Hospital course, mention meds given and route, prescriptions, significant lab abnormalities, going to OR and other pertinent info. @ -53-year-old female with multiple complaints, generalized swelling, generalized myalgia and arthralgia, nausea and inability to take oral medication. She also presents with recurrent gastric reflux. Patient has had 30 days of sinus congestion and cannot take oral antibiotics. She cannot take oral antibiotics secondary to gastroparesis. Patient has mild anemia which is stable, no leukocytosis, normal electrolytes. Patient given IV steroids, IV a ntibiotics, IV fluids. She will be admitted for IV medications secondary to current inability to tolerate oral medication. Undiagnosed new problem with uncertain prognosis? @ -No Drug Therapy requiring intensive monitoring for toxicity (Heparin, Nitro, Insulin, Cardizem)? @ -No Were any procedures done? @ -No Diagnosis/symptom? @ -[Chronic sinusitis, MS, sarcoidosis Acute, or Chronic, or Acute on Chronic? @ -Default Uncomplicated (without systemic symptoms) or Complicated (systemic symptoms)? @ -Default Side effects of treatment? @ -No Exacerbation, Progression, or Severe Exacerbation? @ -No Poses a threat to life or bodily function? How? (Chest pain, USA, IA, pneumonia, PE, COPD, DKA, ARF, appy, cholecystitis, CVA, Diverticulitis, Homicidal, Suicidal, threat to staff... and all critical care pts) @Low risk at this time - Lab Data Result diagrams: 07/11/23 23:38 07/11/23 23:38 Lab Results 07/11/23 07/11/23 07/11/23 Range/Units 23:38 23:38 23:38 WBC 5.4 (3.8-10.6) k/uL RBC 4.16 (3.80-5.40) m/uL Hgb 10.9 L (11.4-16.0) gm/dL Hct 34.1 (34.0-46.0) % MCV 81.9 (80.0-100.0) fL MCH 26.3 (25.0-35.0) pg MCHC 32.1 (31.0-37.0) g/dL RDW 15.0 (11.5-15.5) % Plt Count 222 (150-450) k/uL MPV 6.9 Neutrophils % 33 % Lymphocytes % 51 % Monocytes % 7 % Eosinophils % 6 % Basophils % 1 % Neutrophils # 1.8 (1.3-7.7) k/uL Lymphocytes # 2.8 (1.0-4.8) k/uL Monocytes # 0.4 (0-1.0) k/uL Eosinophils # 0.3 (0-0.7) k/uL Basophils # 0.1 (0-0.2) k/uL Sodium 140 (137-145) mmol/L Potassium 3.3 L (3.5-5.1) mmol/L Chloride 109 H (98-107) mmol/L Carbon Dioxide 26 (22-30) mmol/L Anion Gap 5 mmol/L BUN 14 (7-17) mg/dL Creatinine 0.77 (0.52-1.04) mg/dL Est GFR (CKD-EPI)AfAm >90 (>60 ml/min/1.73 sqM) Est GFR (CKD-EPI)NonAf 89 (>60 ml/min/1.73 sqM) Glucose 127 H (74-99) mg/dL Plasma Lactic Acid Antoni 1.1 (0.7-2.0) mmol/L Calcium 8.5 (8.4-10.2) mg/dL Magnesium 1.7 (1.6-2.3) mg/dL Total Bilirubin 0.3 (0.2-1.3) mg/dL AST 20 (14-36) U/L ALT 15 (4-34) U/L Alkaline Phosphatase 67 (38-126) U/L Total Protein 5.6 L (6.3-8.2) g/dL Albumin 3.0 L (3.5-5.0) g/dL Influenza Type A (PCR) (Not Detectd) Influenza Type B (PCR) (Not Detectd) RSV (PCR) (Not Detectd) SARS-CoV-2 (PCR) (Not Detectd) 07/11/23 Range/Units 23:38 WBC (3.8-10.6) k/uL RBC (3.80-5.40) m/uL Hgb (11.4-16.0) gm/dL Hct (34.0-46.0) % MCV (80.0-100.0) fL MCH (25.0-35.0) pg MCHC (31.0-37.0) g/dL RDW (11.5-15.5) % Plt Count (150-450) k/uL MPV Neutrophils % % Lymphocytes % % Monocytes % % Eosinophils % % Basophils % % Neutrophils # (1.3-7.7) k/uL Lymphocytes # (1.0-4.8) k/uL Monocytes # (0-1.0) k/uL Eosinophils # (0-0.7) k/uL Basophils # (0-0.2) k/uL Sodium (137-145) mmol/L Potassium (3.5-5.1) mmol/L Chloride (98-107) mmol/L Carbon Dioxide (22-30) mmol/L Anion Gap mmol/L BUN (7-17) mg/dL Creatinine (0.52-1.04) mg/dL Est GFR (CKD-EPI)AfAm (>60 ml/min/1.73 sqM) Est GFR (CKD-EPI)NonAf (>60 ml/min/1.73 sqM) Glucose (74-99) mg/dL Plasma Lactic Acid Antoni (0.7-2.0) mmol/L Calcium (8.4-10.2) mg/dL Magnesium (1.6-2.3) mg/dL Total Bilirubin (0.2-1.3) mg/dL AST (14-36) U/L ALT (4-34) U/L Alkaline Phosphatase (38-126) U/L Total Protein (6.3-8.2) g/dL Albumin (3.5-5.0) g/dL Influenza Type A (PCR) Not Detected (Not Detectd) Influenza Type B (PCR) Not Detected (Not Detectd) RSV (PCR) Not Detected (Not Detectd) SARS-CoV-2 (PCR) Not Detected (Not Detectd) Disposition Clinical Impression: Gastroparesis, Intractable nausea and vomiting, Multiple sclerosis, Chronic sinusitis Disposition: [facility] Condition: Stable Is patient prescribed a controlled substance at d/c from ED?: No Referrals: None,Stated [Primary Care Provider] - 1-2 days Time of Disposition: 01:13
[2023-07-11] MEDS: diphenhydrAMINE 50 MG/ML 1 ML VIAL IVP STA (23:43)
[2023-07-11 23:45] LABS: Basophils # (A) 0.1 k/uL (0-0.2); Basophils % (A) 1 %; Eosinophils # (A) 0.3 k/uL (0-0.7); Eosinophils % (A) 6 %; HCT 34.1 % (34.0-46.0); HGB 10.9 gm/dL (11.4-16.0); Lymphocytes # (A) 2.8 k/uL (1.0-4.8); Lymphocytes % (A) 51 %; MCH 26.3 pg (25.0-35.0); MCHC 32.1 g/dL (31.0-37.0); MCV 81.9 fL (80.0-100.0); Mean Platelet Volume 6.9; Monocytes # (A) 0.4 k/uL (0-1.0); Monocytes % (A) 7 %; Neutrophils # (A) 1.8 k/uL (1.3-7.7); Neutrophils % (A) 33 %; Platelet Count 222 k/uL (150-450); RBC 4.16 m/uL (3.80-5.40); WBC 5.4 k/uL (3.8-10.6)
[2023-07-11 23:55] LABS: ALT 15 U/L (4-34); AST 20 U/L (14-36); African American GFR (CKD) >90 (>60 ml/min/1.73 sqM); Alkaline Phosphatase 67 U/L (38-126); Anion Gap 5 mmol/L; Blood Urea Nitrogen 14 mg/dL (7-17); Calcium 8.5 mg/dL (8.4-10.2); Carbon Dioxide 26 mmol/L (22-30); Chloride 109 mmol/L (98-107); Glucose 127 mg/dL (74-99); Magnesium 1.7 mg/dL (1.6-2.3); Non-African American GFR(CKD) 89 (>60 ml/min/1.73 sqM); Potassium 3.3 mmol/L (3.5-5.1); Sodium 140 mmol/L (137-145); Total Bilirubin 0.3 mg/dL (0.2-1.3); Total Protein 5.6 g/dL (6.3-8.2)
[2023-07-12] MEDS ORDERED: NALOXONE 0.4 MG/ML 1 ML VIAL IV PRN (01:08)
[2023-07-12] MEDS: SODIUM CHLORIDE 0.9% 1,000 ML IV SCH (02:16)
[2023-07-12] MEDS: POTASSIUM CHLORIDE 10 MEQ in WATER FOR INJECTION 1 100ML.BAG IVPB SCH (02:19)
[2023-07-12 02:21] LABS: Appearance,Urine Clear (Clear); Bilirubin,Urine Negative (Negative); Blood,Urine Negative (Negative); Color,Urine Colorless; Glucose,Urine (UA) Negative (Negative); Ketones,Urine Negative (Negative); Leukocyte Esterase,Urine Negative (Negative); Nitrite,Urine Negative (Negative); PH, Urine 5.5 (5.0-8.0); Protein,Urine Negative (Negative); Specific Gravity,Urine 1.009 (1.001-1.035); Urobilinogen,Urine <2.0 mg/dL (<2.0)
[2023-07-12] MEDS: diphenhydrAMINE 50 MG/ML 1 ML VIAL IVP PRN (02:46)
[2023-07-12] MEDS: AMPICILLIN-SULBACTAM 3 GM in SODIUM CHLORIDE 0.9% 100 ML IVPB SCH (02:49)
[2023-07-12] MEDS: HYDROmorphone 0.5 MG/0.5 ML SYRINGE IVP STA (03:41)
[2023-07-12] MEDS: ONDANSETRON 4 MG/2 ML VIAL IVP PRN (03:42)
[2023-07-12] MEDS: methylPREDNISolone SOD SUCCI 125 MG/2 ML VIAL IV SCH (05:23)
[2023-07-12] MEDS ORDERED: methylPREDNISolone SOD SUCCI 125 MG/2 ML VIAL IV SCH (05:23)
[2023-07-12] MEDS ORDERED: ONDANSETRON ODT 8 MG TAB.RAPDIS PO PRN (09:15)
[2023-07-12] MEDS ORDERED: SUMAtriptan succinate 6 MG/0.5 ML VIAL SQ PRN (09:15)
[2023-07-12] MEDS ORDERED: ALBUTEROL NEBULIZED 2.5 MG/3 ML INHALATION PRN (09:15)
[2023-07-12] MEDS: PANTOPRAZOLE 40 MG/10 ML VIAL IVP SCH (10:55)
[2023-07-12] MEDS: DULoxetine HCL 60 MG CAPSULE.DR PO SCH (10:55)
[2023-07-12] MEDS: methocarbamoL 500 MG TAB PO SCH (10:56)
[2023-07-12] MEDS: GABAPENTIN 100 MG CAP PO SCH (10:56)
[2023-07-12] MEDS: LEVOTHYROXINE 112 MCG TAB PO SCH (10:56)
[2023-07-12] MEDS: PANTOPRAZOLE 40 MG TABLET PO SCH (10:56)
[2023-07-12] MEDS: NON FORMULARY DRUG (Morphine Pain Pump 1 DOSE) MISCELLANE SCH (12:27)
[2023-07-12] MEDS: oxyCODONE-APAP 10-325MG 1 EACH TAB PO PRN (16:58)
[2023-07-12] MEDS: BACLOFEN 10 MG TAB PO SCH (16:58)
[2023-07-12] MEDS: HYDROmorphone 0.5 MG/0.5 ML SYRINGE IVP PRN (21:01)
[2023-07-12] MEDS: ALPRAZolam 0.25 MG TAB PO SCH (21:01)
--- NOTE | 2023-07-12 23:34 | P.HPIM ---
History of Present Illness H&P Date: 07/12/23 Chief Complaint: Nausea and vomiting Patient is a 53-year-old female with a past medical history of sarcoidosis on infliximab infusion every 6 weekly, migraine headaches, obstructive sleep apnea, multiple sclerosis currently not on any medications, hypothyroidism, diabetes t ype 2 [id number], GERD and other multiple medical problems and gastroparesis with history of Botox treatment, chronic pain with pain pump in place presents to ER with complaints of nausea vomiting and not feeling well patient also states that she has been having generalized body pains and joint pains. Patient had several visits to ER. Patient states that she was told by her pulmonary physician but she has sinus infection and recommended IV antibiotics. Patient states that she has been having nasal congestion sore throat and postnasal drip as well. Also complains of subjective fevers at home. Patient states that she has significant gastroparesis and unable to take any oral medi cations. Denies any chest pain or worsening shortness of breath. No sputum production. Occasional congested cough. Patient was seen by her flitch hanger Dr. Duque from via telemedicine. Patient had x-ray of the sinuses was done for possible sinus infection. Patient had x-ray sinuses done on 07/03/2023 showed no evidence of significant paranasal sinus disease. Laboratory data showed WBC 5.4 hemoglobin 10.9 and platelets 222 Sodium 140 potassium 3.3 chloride 109 bicarb is 26 BUN 14 and creatinine 0.77 and blood sugar 127 and magnesium 1.7, liver enzymes are not elevated. Albumin 3.0 and total protein 5.6 Urinalysis is negative for infection. Influenza A, B, RSV and COVID-19 PCR not detected. Review of Systems Constitutional: Patient states that she had subjective fevers and chills at home.. Generalized weakness and fatigue.. Abdomen: Patient does have nausea vomiting. No diarrhea. No abdominal pain. Cardiovascular: Patient denies any chest pain or worsening short of breath no palpitations. Respiratory: patient does have cough and congestion and no sputum production. Sore throat. No worsening shortness of breath Neurologic: Patient denied any numbness or tingling headache. Musculoskeletal: Patient complains of joint pains and arthralgias.. Skin: Negative Psychiatric: Negative Endocrine: No heat or cold intolerance. No recent weight gain. Genitourinary: No dysuria or hematuria. All other 14 point ROS negative except the above Past Medical History Past Medical History: Asthma, Diabetes Mellitus, GERD/Reflux, Musculoskeletal Disorder, Neurologic Disorder, Sleep Apnea/CPAP/BIPAP, Thyroid Disorder Additional Past Medical History / Comment(s): MS, back pain, DDD, optic neuritis, Gastroparesis., C-Diff (June 2018) leukopenia (sores in mouth) migraines, sleep apnea due to M.S. (no machine), sarcoidosis, cyst in stomach. , hopitalized 10/04/19 after lumbar puncture because heart rate dropped, hospitalized 10/10/19 for headache (post l.p.), states allergy to all adhesive and needs benadryl IV 50mg prior to using tape or tegaderm etc. History of Any Multi-Drug Resistant Organisms: C-DIFF Date of last positivie culture/infection: 2018 MDRO Source:: stool Past Surgical History: Bladder Surgery, Breast Surgery, Hernia Repair, Hysterectomy, Orthopedic Surgery, Tubal Ligation Additional Past Surgical History / Comment(s): rhinoplasty, bladder suspension, breast sx, morphine pump, RT KNEE SCOPE, TUMMY TUCK, Spinal cord stimulator inserted and removed. port august 2019, gastroparesis botox and EGD 11/06/2019, breast implants, gastric surgery (g-poem) 05/05/20, Stent placed on kidney, hernia repair X2 Past Anesthesia/Blood Transfusion Reactions: Motion Sickness, Postoperative Nausea & Vomiting (PONV) Past Psychological History: No Psychological Hx Reported Smoking Status: Never smoker Past Alcohol Use History: Occasional Past Drug Use History: None Reported - Past Family History Father History Unknown: Yes Family Medical History: No Reported History Additional Family Medical History / Comment(s): . Mother History Unknown: Yes Family Medical History: No Reported History Additional Family Medical History / Comment(s): NO FAMILY HISTORY Medications and Allergies Home Medications Medication Instructions Recorded Confirmed Type DULoxetine HCL [Cymbalta] 60 mg PO DAILY 01/10/17 07/12/23 History metFORMIN HCL [Glucophage] 500 mg PO BID #60 tab 02/10/18 07/12/23 Rx Levothyroxine Sodium [Synthroid] 112 mcg PO DAILY 12/05/18 07/12/23 History rOPINIRole HCL [Requip] 2 mg PO TID 12/05/18 07/12/23 History Baclofen 10 mg PO TID 04/29/19 07/12/23 History Morphine Pain Pump 1 dose INTRATHECA CONTINUOUS 10/10/19 07/12/23 History Ondansetron Odt [Zofran ODT] 8 mg PO DAILY PRN 11/13/19 07/12/23 History Gabapentin [Neurontin] 100 mg PO TID 05/10/20 07/12/23 History Pantoprazole Sodium [Protonix] 40 mg PO BID 05/10/20 07/12/23 History SUMAtriptan succinate 6 mg SQ BID PRN 05/10/20 07/12/23 History methocarbamoL [Robaxin] 500 mg PO TID 05/10/20 07/12/23 History Infliximab-Dyyb [Inflectra] 1 dose IV Q42D 05/23/20 07/12/23 History oxyCODONE-APAP 10-325MG [Percocet 1 tab PO BID PRN 04/17/22 07/12/23 History 10-325 mg] ALPRAZolam [Xanax] 0.25 mg PO BID 11/05/22 07/12/23 History Albuterol Inhaler [Ventolin Hfa 2 puff INHALATION RT-Q6H PRN 11/05/22 07/12/23 History Inhaler] Albuterol Nebulized [Ventolin 2.5 mg INHALATION RT-QID PRN 07/12/23 07/12/23 History Nebulized] Allergies Allergy/AdvReac Type Severity Reaction Status Date / Time adhesive Allergy Severe Rash/Hives Verified 07/12/23 07:41 adhesive tape Allergy Severe Rash/Hives Verified 07/12/23 07:41 fentanyl Allergy Severe Rash/Hives Verified 07/12/23 07:41 from patch only latex Allergy Severe Rash/Hives Verified 07/12/23 07:41 metoclopramide [From Reglan] Allergy dystonia Verified 07/12/23 07:41 from IV Reglan prochlorperazine Allergy dystonia Verified 07/12/23 07:41 [From Compazine] Physical Exam Vitals: Vital Signs Temp Pulse Pulse Resp BP BP Pulse Ox 07/12/23 08:00 98.2 F 68 16 126/78 96 07/12/23 05:27 97.8 F 61 18 105/45 94 L 07/12/23 03:46 63 16 139/82 94 L 07/12/23 00:35 74 16 141/96 95 07/11/23 23:44 76 14 139/87 99 07/11/23 22:19 97.9 F 91 18 138/80 96 Intake and Output 07/11/23 07/12/23 07/12/23 22:59 06:59 14:59 Other: Weight 89.811 kg PHYSICAL EXAMINATION: Patient is lying in the bed comfortably, no acute distress, awake alert and oriented.. HEENT: Normocephalic. Neck is supple. Pupils reactive. Nostrils clear. Oral cavity is moist. No pharyngeal erythema/redness Neck reveals no JVD, carotid bruits, or thyromegaly. CHEST EXAMINATION: Trachea is central. Symmetrical expansion. Lung leung clear to auscultation and percussion. CARDIAC: Normal S1, S2 with no gallops. No murmurs ABDOMEN: Soft. Bowel sounds normal. No organomegaly. No abdominal bruits. Extremities: reveal no edema. No clubbing or cyanosis Neurologically awake, alert, oriented x3 with well-coordinated movements. No focal deficits noted Skin: No rash or skin lesions. Psychiatric: Coperative. Nonsuicidal, anxious. Musculoskeletal: No joint swelling or deformity. Patient does have joint tenderness. Normal range of motion. Results CBC & Chem 7: 07/11/23 23:38 07/11/23 23:38 Labs: Abnormal Lab Results - Last 24 Hours (Table) 07/11/23 07/11/23 Range/Units 23:38 23:38 Hgb 10.9 L (11.4-16.0) gm/dL Potassium 3.3 L (3.5-5.1) mmol/L Chloride 109 H (98-107) mmol/L Glucose 127 H (74-99) mg/dL Total Protein 5.6 L (6.3-8.2) g/dL Albumin 3.0 L (3.5-5.0) g/dL Thrombosis Risk Factor Assmnt - DVT/VTE Prophylaxis DVT/VTE Prophylaxis: Pharmacologic Prophylaxis ordered Assessment and Plan Assessment: Nausea, vomiting and unable to tolerate oral diet likely due to gastroparesis. Continue symptomatic management. Patient has history of Botox treatment. Sarcoidosis patient is on follow-up with her flitch hanger at . As per her pulmonary notes patient presents with generalized weakness fatigue and arthralgias. Respiratory status has been stable at baseline. Patient is on infliximab infusions every 6 hourly. Possible acute sinusitis patient states that she has been having cough congestion and postnasal drip and subjective fevers at home. History of MS Chronic back pain and degenerative disc disease on morphine pain pump History of migraine headaches Diabetes type 2 [id number]. Obstructive sleep apnea Hypothyroidism GERD Asthma not in exacerbation Anxiety/depression GI and DVT prophylaxis PPI and heparin subcu Plan: Patient will be continued on gentle IV hydration with normal saline. Patient was started on IV Solu-Medrol 60 mg every 6 hourly and antibiotics, Unasyn. Continue with Percocet for pain management and is also on pain pump. Current with home medications Continue symptomatic management for nausea and vomiting and encourage oral intake. Continue with breathing treatments as needed. Replace electrolytes and breathing treatments Discussed with patient in detail. Follow-up closely. Prognosis guarded with multiple medical problems and comorbid conditions. Time with Patient: Greater than 30
[2023-07-12] MEDS: HEPARIN SODIUM,PORCINE 5,000 UNIT/ML 1 ML VIAL SQ SCH (23:56)
[2023-07-13] MEDS: MAGNESIUM SULFATE-D5W PMX 1 GM in DEXTROSE/WATER 1 100ML.BAG IVPB ONE (05:51)
--- NOTE | 2023-07-13 08:18 | XR ---
EXAMINATION TYPE: XR chest 1V DATE OF EXAM: 07/13/2023 COMPARISON: 06/10/2023 HISTORY: Sarcoid TECHNIQUE: Single frontal view of the chest is obtained. FINDINGS: Right-sided Mediport catheter. The heart is enlarged. The lungs are clear. No pleural effu kilo or pneumothorax. Prominent right hilum may reflect underlying adenopathy. Prominent aortic arch in the differential diagnosis. Lucent change of the distal right clavicle only partially included in the [id number]. IMPRESSION: 1. No acute processes. 2. Convex border of the right paratracheal region and suprahilar region. Underlying adenopathy in the differential diagnosis given history of sarcoidosis. Aneurysm of the descending aorta also a conside ration.
[2023-07-13] MEDS: ALBUTEROL NEBULIZED 2.5 MG/3 ML INHALATION PRN (09:41)
[2023-07-13 11:25] LABS: Basophils # (A) 0.01 X 10*3/uL (0.00-0.10); Basophils % (A) 0.1 %; Eosinophils # (A) 0 X 10*3/uL (0.04-0.35); Eosinophils % (A) 0 %; HCT 31.7 % (37.2-46.3); HGB 9.7 g/dL (12.0-15.0); Lymphocytes # (A) 1.33 X 10*3/uL (0.90-5.00); MCH 25.9 pg (27.0-32.0); MCHC 30.6 g/dL (32.0-37.0); MCV 84.8 FL (80.0-97.0); Mean Platelet Volume 10.5 FL (9.5-12.2); Monocytes # (A) 0.12 X 10*3/uL (0.20-1.00); Monocytes % (A) 1.2 %; NRBC Per 100 WBC 0 X 10*3/uL (0.00-0.01); Neutrophils # (A) 8.75 X 10*3/uL (1.80-7.70); Neutrophils % (A) 85.4 %; Platelet Count 224 X 10*3/uL (140-440); RBC 3.74 X 10*6/uL (4.10-5.20); RDW 15.2 % (11.5-14.5); WBC 10.24 X 10*3/uL (4.50-10.00)
[2023-07-13 11:41] LABS: ALT 11 U/L (8-44); AST 13 U/L (13-35); Albumin 3.5 g/dL (3.8-4.9); Albumin/Globulin Ratio 1.52 Ratio (1.60-3.17); Alkaline Phosphatase 68 U/L (41-126); BUN/Creat Ratio 16.88 Ratio (12.00-20.00); Blood Urea Nitrogen 13.5 mg/dL (9.0-27.0); Calcium 8.4 mg/dL (8.7-10.3); Carbon Dioxide 26.3 mmol/L (21.6-31.8); Chloride 106 mmol/L (96-109); Globulin 2.3 g/dL (1.6-3.3); Glucose 193 mg/dL (70-110); Potassium 4.1 mmol/L (3.5-5.5); Sodium 140 mmol/L (135-145); Total Bilirubin 0.3 mg/dL (0.3-1.2); Total Protein 5.8 g/dL (6.2-8.2)
--- NOTE | 2023-07-13 22:30 | P.PN ---
Subjective Progress Note Date: 07/13/23 Patient is a 53-year-old female with a past medical history of sarcoidosis on infliximab infusion every 6 weekly, migraine headaches, obstructive sleep apnea, multiple sclerosis currently not on any medications, hypothyroidism, diabetes type 2 bzp-uqzejeo-jaidyztco, GERD and other multiple medical problems and gastroparesis with history of Botox treatment, chronic pain with pain pump in place presents to ER with complaints of nausea vomiting and not feeling well patient also states that she has been having generalized body pains and joint pains. Patient had several visits to ER. Patient states that she was told by her pulmonary physician but she has sinus infection and recommended IV antibiotics. Patient states that she has been having nasal congestion sore throat and postnasal drip as well. Also complains of subjective fevers at home. Patient states that she has significant gastroparesis and unable to take any oral medications. Denies any chest pain or worsening shortness of breath. No sputum production. Occasional congested cough. Patient was seen by her fixing carpenter Dr. Duque from [facility] via telemedicine. Patient had x-ray of the sinuses was done for possible sinus infection. Patient had x-ray sinuses done on 07/03/2023 showed no evidence of significant paranasal sinus disease. Laboratory data showed WBC 5.4 hemoglobin 10.9 and platelets 222 Sodium 140 potassium 3.3 chloride 109 bicarb is 26 BUN 14 and creatinine 0.77 and blood sugar 127 and magnesium 1.7, liver enzymes are not elevated. Albumin 3.0 and total protein 5.6 Urinalysis is negative for infection. Influenza A, B, RSV and COVID-19 PCR not detected. 07/13/2023 Patient is currently lying in the bed. Awake alert and oriented x 3. Still complains of generalized bodyaches and joint pains and also pain between his shoulder blades.. No complaints of shortness of breath. No chest pain. Riya ent states that she vomited this morning. Denies any hematemesis. Did not pass any sore throat or postnasal drip today. Afebrile. No headache or dizziness. Patient still requesting IV pain medicat ions. Does have morning from and patient states that he only delivers 2 milligrams per day. Patient also states that she is able to eat her lunch today and also able to take her home regular medications. Patient states that she could not tolerate any new medications by mouth and requesting all new medications through IV. Patient is being continued on IV Solu-Medrol every 6 hourly 60 mg and also on antibiotics in the form of Unasyn. Laboratory data showed WBC 10.24 likely due to steroids, hemoglobin 9.7 and platelets 224 MCV 84.4 Sodium 140 potassium 4.1 chloride 106 bicarb is 26.3 BUN 13.5 and creatinine 0.8 and blood sugar 193 and calcium 8.4 and albumin 3.5 Blood pressure 111/48 mm hg, pulse 78 respirations 16 pulse ox 95% on room air. Patient has been afebrile. Chest x-ray showed no acute process. Convex border of the right paratracheal region and suprahilar region. Underlying adenopathy in the differential diagnosis given history of sarcoidosis. Aneurysm of the descending aorta also a consideration. Current medications reviewed. Objective - Vital Signs Vital signs: Vital Signs Temp 98.0 F 07/13/23 19:34 Pulse 60 07/13/23 19:34 Resp 15 07/13/23 19:34 BP 122/73 07/13/23 19:34 Pulse Ox 96 07/13/23 19:34 FiO2 Intake & Output 07/13/23 07/13/23 07/14/23 06:59 18:59 06:59 Intake Total 360 777 Balance 360 777 Intake: Oral 360 777 Other: Voiding Method Toilet # Voids 1 3 - Exam PHYSICAL EXAMINATION: Patient is lying in the bed comfortably, no acute distress, awake alert and oriented.. HEENT: Normocephalic. Neck is supple. Pupils reactive. Nostrils clear. Oral cavity is moist. No pharyngeal erythema/redness Neck reveals no JVD, carotid bruits, or thyromegaly. CHEST EXAMINATION: Trachea is central. Symmetrical expansion. Lung leung clear to auscultation and percussion. CARDIAC: Normal S1, S2 with no gallops. No murmurs ABDOMEN: Soft. Bowel sounds normal. No organomegaly. No abdominal bruits. Extremities: reveal no edema. No clubbing or cyanosis Neurologically awake, alert, oriented x3 with well-coordinated movements. No focal deficits noted Skin: No rash or skin lesions. Psychiatric: Coperative. Nonsuicidal, anxious. Musculoskeletal: No joint swelling or deformity. Patient does have joint tenderness. Normal range of motion. - Labs CBC & Chem 7: 07/13/23 06:51 07/13/23 06:51 Labs: Abnormal Lab Results - Last 24 Hours (Table) 07/13/23 07/13/23 Range/Units 06:51 06:51 WBC 10.24 H (4.50-10.00) X 10*3/uL RBC 3.74 L (4.10-5.20) X 10*6/uL Hgb 9.7 L (12.0-15.0) g/dL Hct 31.7 L (37.2-46.3) % MCH 25.9 L (27.0-32.0) pg MCHC 30.6 L (32.0-37.0) g/dL RDW 15.2 H (11.5-14.5) % Neutrophils # 8.75 H (1.80-7.70) X 10*3/uL Monocytes # 0.12 L (0.20-1.00) X 10*3/uL Eosinophils # 0 L (0.04-0.35) X 10*3/uL Glucose 193 H (70-110) mg/dL Calcium 8.4 L (8.7-10.3) mg/dL Total Protein 5.8 L (6.2-8.2) g/dL Albumin 3.5 L (3.8-4.9) g/dL Albumin/Globulin Ratio 1.52 L (1.60-3.17) Ratio Microbiology - Last 24 Hours (Table) 07/12/23 02:40 Blood Culture - Preliminary Blood 07/12/23 02:25 Blood Culture - Preliminary Blood Assessment and Plan Assessment: Nausea, vomiting and unable to tolerate oral diet likely due to gastroparesis. Continue symptomatic management. Patient has history of Botox treatment. Patient is able to tolerate oral diet. Also states that she cannot tolerate any new medications by mouth. Sarcoidosis patient is on follow-up with her fixing carpenter at [facility]. As per her pulmonary notes patient presents with generalized weakness fatigue and arthralgias. Respiratory status has been stable at baseline. Patient is on infliximab infusions every 6 hourly. Possible acute sinusitis patient states that she has been having cough congestion and postnasal drip and subjective fevers at home. History of MS Chronic back pain and degenerative disc disease on morphine pain pump History of migraine headaches Diabetes type 2 [id number]-johibfeaj. Obstructive sleep apnea Hypothyroidism GERD Asthma not in exacerbation Anxiety/depression GI and DVT prophylaxis PPI and heparin subcu Plan: Patient will be continued on gentle IV hydration with normal saline and reduced to KVO Patient was started on IV Solu-Medrol 60 mg every 6 hourly and antibiotics, Unasyn. Continue with Percocet for pain management and is also on morphine pain pump. Patient is on antibiotics, Unasyn. Follow-up blood cultures. Patient also requested IV pain medications, Dilaudid overnight. Current with home medications which she has been taking orally. Continue symptomatic management for nausea and vomiting and encourage oral intake. Continue with breathing treatments as needed. Replace electrolytes. Discussed with patient in detail. Follow-up closely. Prognosis guarded with multiple medical problems and comorbid conditions. Time with Patient: Greater than 30
--- NOTE | 2023-07-13 23:45 | CT ---
EXAMINATION TYPE: CT angio thor/abd pel aorta CT DLP: 2426 mGycm, Automated exposure control for dose reduction was used. DATE OF EXAM: 07/13/2023 6:59 PM COMPARISON: Chest x-ray 07/13/2023. CLINICAL INDICATION:Female, 53 years old with history of abdominal pain, findings on cxr for poss ane urysm; PHH, abnormal cxr TECHNIQUE: Dissection protocol: Multiple axial CT images of the chest, abdomen, and pelvis were obtai ruben prior and after the administration of IV contrast. 3-D reformats and maximum intensity projection format were performed on a separate workstation. Contrast used:100 mL of Isovue 370 without and with IV Contrast, Oral contrast used: without Oral Contrast FINDINGS: ARTERIAL VASCULATURE: Aorta shows no evidence of intramural hematoma. There is minimal scattered athe rosclerotic calcification. The aorta enhances normally without evidence of dissection flap or aneurys m. The ascending aorta is 3.1 cm, descending aorta 2.4 cm. Normal 3 vessel arch with patent origins o f the branch vessels. Abdominal aorta is normal in course and caliber. Patent celiac, superior mesenteric, bilateral renal, and inferior mesenteric arteries. Iliac arterial trees are patent with no apparent abnormality. PULMONARY ARTERIAL VASCULATURE: Pulmonary trunk enhances normally, is towards the upper limits of nor mal in size measuring 2.8 cm. No evidence of filling defect to suggest pulmonary embolus. VENOUS SYSTEM: Unremarkable for the phase of enhancement. Right chest MediPort is present with its ca theter entering a right IJV approach before terminating in the mid SVC. Heart: Normal in size. No significant coronary calcifications. Minimal pericardial fluid without sign ificant effusion seen. Lungs/pleura: No acute consolidation is seen. Mild linear opacities in the left lower lobe may reflec t scarring and/or subsegmental atelectasis. There are a couple of left lung solid appearing nodules, up to 4 mm in size, due to small size not requiring specific follow-up without known or risk factors for malignancy. No pleural effusion or pneumothorax. Central airways: Patent. Mediastinum: No mediastinal nodes are definitely enlarged by CT criteria. There are some mildly promi nent nodes seen and mild soft tissue thickening in the hilar regions, nonspecific but might be reacti ve and/or related to the patient's history of sarcoid. Soft tissue density in the inferior mediastinu m may represent small hiatal hernia, and/or postoperative changes such as from fundoplication. There are some focal radiodensities present which could be calcifications or postoperative. Lower Neck: No significant findings. Chest wall: Bilateral breast implants. No chest wall mass or axillary adenopathy. Abdomen: Liver: Unremarkable. Gallbladder and Bile ducts: Gallbladder is contracted.. Pancreas: Fatty infiltrated without acute finding. Spleen: Unremarkable. Adrenal glands: Unremarkable. Kidneys and Ureters: Unremarkable. No hydronephrosis. Bladder: Incompletely distended, grossly unremarkable.. Reproductive: Uterus appears absent, correlate for hysterectomy. It seems that the ovaries remain. No suggestion of pelvic mass.. Stomach and Bowel: Stomach mildly distended with heterogeneous material, likely food stuffs. Duodenal sweep is patent. No distended small bowel loops are seen. There is moderate stool throughout the col on without focal acute colonic abnormality seen. The cecum is low-lying within the pelvis. The append ix is not definitely identified but there is no pericecal inflammatory process. Peritoneum: No evidence of pneumoperitoneum or free fluid. Musculoskeletal: No acute osseous abnormality. Mild degenerative changes of the hips and spine.. Lymph nodes: There are a few mildly prominent celiac region lymph nodes, up to 12 mm in short axis, w hich could be reactive and/or related to sarcoid. Abdominal wall/soft tissues: No acute abnormality. In the right anterior lower abdominal wall there i s a subcutaneous device, likely infusion pump, with a small catheter extending around the right flank posteriorly before entering the spinal canal in the mid lumbar region, extending cranially within th e canal and the tip is at the mid T6 level. IMPRESSION: 1. No evidence of aortic aneurysm or dissection. 2. Pulmonary trunk upper limits of normal in size. No evidence of filling defect to suggest embolus. 3. Otherwise, no acute abnormality demonstrated.
[2023-07-14 08:45] LABS: HCT 32.2 % (37.2-46.3); MCH 26.3 pg (27.0-32.0); MCHC 31.1 g/dL (32.0-37.0); MCV 84.7 FL (80.0-97.0); NRBC Per 100 WBC 0.03 X 10*3/uL (0.00-0.01); Platelet Count 209 X 10*3/uL (140-440); RDW 15.8 % (11.5-14.5); WBC 9.77 X 10*3/uL (4.50-10.00)
[2023-07-14 08:46] LABS: Basophils # (A) 0.01 X 10*3/uL (0.00-0.10); Basophils % (A) 0.1 %; Eosinophils # (A) 0 X 10*3/uL (0.04-0.35); Eosinophils % (A) 0 %; Lymphocytes # (A) 0.89 X 10*3/uL (0.90-5.00); Lymphocytes % (A) 9.1 %; Monocytes # (A) 0.16 X 10*3/uL (0.20-1.00); Monocytes % (A) 1.6 %; Neutrophils # (A) 8.68 X 10*3/uL (1.80-7.70); Neutrophils % (A) 88.9 %
[2023-07-14 08:50] LABS: BUN/Creat Ratio 16.56 Ratio (12.00-20.00); Blood Urea Nitrogen 14.9 mg/dL (9.0-27.0); Calcium 8.4 mg/dL (8.7-10.3); Carbon Dioxide 25.7 mmol/L (21.6-31.8); Chloride 110 mmol/L (96-109); Glucose 280 mg/dL (70-110); Potassium 3.8 mmol/L (3.5-5.5); Sodium 145 mmol/L (135-145)
[2023-07-14] MEDS: methylPREDNISolone SOD SUCCI 125 MG/2 ML VIAL IV SCH (12:16)
[2023-07-14] MEDS: KETOROLAC 15 MG/ML 1 ML VIAL IVP STA (12:16)
[2023-07-14 14:21] VITALS: BP 132/76; PULSE 69; RESP 16; TEMP 98.1
[2023-07-15] MEDS ORDERED: predniSONE 20 MG TAB PO SCH (09:00)
--- NOTE | 2023-07-17 16:18 | P.DS ---
Providers Date of admission: 07/12/23 01:08 Expected date of discharge: 07/14/23 Attending physician: Jennifer Diaz Primary care physician: Stated None Hospital Course: Final diagnosis Nausea, vomiting and unable to tolerate oral diet likely due to gastroparesis. Patient has history of Botox treatment. Patient is able to tolerate oral diet. Also states that she cannot tolerate any new medications by mouth. Sarcoidosis, patient is on follow-up with her packaging manager at [facility]. Dr. Duque As per her pulmonary notes patient presents with generalized weakness fatigue and arthralgias. Respiratory status has been stable at baseline. Patient is on infliximab infusions every 6 hourly. Possible acute sinusitis, patient states that she has been having cough congestion and postnasal drip and subjective fevers at home. History of MS Chronic back pain and degenerative disc disease on morphine pain pump History of migraine headaches Diabetes type 2 [id number]-[id number]. Obstructive sleep apnea Hypothyroidism GERD Asthma not in exacerbation Anxiety/depression GI and DVT prophylaxis PPI Discharge disposition Patient is being discharged in a stable condition with guarded prognosis to home. Patient will follow-up with Dr. Abdi Taylor although patient reports is looking for a new primary care provider as she moved and can never get into see her current primary care provider in the outpatient setting. Patient is to continue with prednisone taper and oral Augmentin and close outpatient follow-up with her primary pulmonary (sarcoidosis team out of [facility] )as scheduled. Total time taken is greater than 35 minutes. Hospital course This is a 53-year-old female who was recently admitted with nausea vomiting inability to tolerate any oral intake. Patient chronically takes multiple medications that she reports she chronically takes and has no difficulties with those although steroids and antibiotics she is unable to tolerate intermittent IV. Patient has been here for 3 days maintained on IV steroids along with IV antibiotics and testing has been negative. Patient did have a chest x-ray which showed no acute process and a convex border of the right paratracheal region and suprahilar region with underlying adenopathy in the differential diagnoses given her history of sarcoidosis. Aneurysm of the descending aorta also a consideration within the differential diagnoses. Discussed with the patient agreeable to thoracic aorta CT which showed aorta showing no evidence of intramural hematoma with minimal scattered atherosclerotic calcification of the aorta enhances normally without evidence of dissection flap or aneurysm. The ascending or aorta is 3.1 cm, descending aorta 2.4 cm and a normal three-vessel arch with patent origins of the branch vessels. Abdominal aorta is normal in course and caliber and arteries are patent with no apparent abnormality. There is no evidence to suggest pulmonary embolism, right chest Mediport is noted there is some mild linear opacities in the left lower lobe that reflect scarring or subsegmental atelectasis as well as a couple of left lung solid-appearing nodules up to 4 mm in size not requiring special follow-up, there are some mildly prominent nodes seen and soft mild tissue thickening in the hilar regions of the mediastinum likely related to the patient's history of sarcoid. There is no evidence of aortic aneurysm or dissection otherwise no acute abnormalities demonstrated. Patient was transition to by mouth oral steroids as well as antibiotics and patient is extremely happy that he is unable to tolerate these hence the reason her specialist told her to be hospitalized for this. Patient has had multiple ER visits with no hospitalizations for this. Patient reports her pulmonology specialist Dr. Hill out of [facility] instructed her to come to the ER and attempt to contact him for transfer. Tape Cutting Machine Operator attempted to contact this office and spoke with staff multiple times regarding the need to speak with the physician with no response. Patient became extremely agitated demanding patient advocate and refusing discharge. Patient was admitted under observation inpatient criteria and is being discharged. Patient was instructed she could leave AMA and patient refused. Multiple conversations regarding patient request transfer as patient reports her specialist told her to come to the hospital and discussed with her physicians and he would accept the transfer. Patient did not require tertiary transfer at this time. Patient was extremely upset making multiple comments about "the doctor" and was not happy with her service here. Patient and her at the bedside reported they will never be returning here. Patient demanded staff to leave the room and was refusing nursing staff to the access her Mediport and heparinize prior to discharge. Patient proceeded to remove her own Mediport IV and unsure per nursing staff if patient used heparin. Patient refused discharge paperwork and walked out with her . Currently no reports of chest pain, shortness of breath, or palpitations. Patient is afebrile. No reports of nausea or vomiting and patient is tolerating diet. Patient was discharged. Guarded prognosis and high risk for readmissions Physical exam: Gen: This is a 53-year-old female who is awake, alert and oriented x 3, well- developed, well-nourished, ill-appearing, obese HEENT: Head is atraumatic, normocephalic. Pupils equal, round. Sclerae is anicteric. NECK: Supple. No JVD. No lymphadenopathy. No thyromegaly. LUNGS: Clear to auscultation. No wheezes or rhonchi. No intercostal retractions. HEART: Regular rate and rhythm. No murmur. ABDOMEN: Soft. Obese. Tender. Bowel sounds are present. No masses. No tenderness. EXTREMITIES: No pedal edema. No calf tenderness. NEUROLOGICAL: Patient is awake, alert and oriented x3. Cranial nerves 2 through 12 are grossly intact. Please refer to medication reconciliation sheet for a list of medications. The impression and plan of care has been dictated by Patti Garcia, Nurse Practitioner as directed. Dr. Joe MD I have performed a history and examination and MDM of this patient, discussed the same with the dictator, and agree with the dictator's assessment and plan as written ,documented as a scribe. Based on total visit time, I have performed more than 50% of the visit. Patient Condition at Discharge: Stable Plan - Discharge Summary New Discharge Prescriptions: New predniSONE 10 mg PO DIRECTED #30 tab Amoxic-Pot Clav 875-125Mg [Augmentin 875-125] 1 tab PO Q12HR 7 Days #14 tab Continue DULoxetine HCL [Cymbalta] 60 mg PO DAILY metFORMIN HCL [Glucophage] 500 mg PO BID #60 tab rOPINIRole HCL [Requip] 2 mg PO TID Levothyroxine Sodium [Synthroid] 112 mcg PO DAILY Baclofen 10 mg PO TID Morphine Pain Pump 1 dose INTRATHECA CONTINUOUS Ondansetron Odt [Zofran ODT] 8 mg PO DAILY PRN PRN Reason: Nausea Gabapentin [Neurontin] 100 mg PO TID methocarbamoL [Robaxin] 500 mg PO TID Pantoprazole Sodium [Protonix] 40 mg PO BID SUMAtriptan succinate 6 mg SQ BID PRN PRN Reason: Migraine Headache Infliximab-Dyyb [Inflectra] 1 dose IV Q42D oxyCODONE-APAP 10-325MG [Percocet 10-325 mg] 1 tab PO BID PRN PRN Reason: Pain ALPRAZolam [Xanax] 0.25 mg PO BID Albuterol Inhaler [Ventolin Hfa Inhaler] 2 puff INHALATION RT-Q6H PRN PRN Reason: Shortness Of Breath Albuterol Nebulized [Ventolin Nebulized] 2.5 mg INHALATION RT-QID PRN PRN Reason: Shortness Of Breath Discharge Medication List DULoxetine HCL [Cymbalta] 60 mg PO DAILY 01/10/17 [History] metFORMIN HCL [Glucophage] 500 mg PO BID #60 tab 02/10/18 [Rx] Levothyroxine Sodium [Synthroid] 112 mcg PO DAILY 12/05/18 [History] rOPINIRole HCL [Requip] 2 mg PO TID 12/05/18 [History] Baclofen 10 mg PO TID 04/29/19 [History] Morphine Pain Pump 1 dose INTRATHECA CONTINUOUS 10/10/19 [History] Ondansetron Odt [Zofran ODT] 8 mg PO DAILY PRN 11/13/19 [History] Gabapentin [Neurontin] 100 mg PO TID 05/10/20 [History] Pantoprazole Sodium [Protonix] 40 mg PO BID 05/10/20 [History] SUMAtriptan succinate 6 mg SQ BID PRN 05/10/20 [History] methocarbamoL [Robaxin] 500 mg PO TID 05/10/20 [History] Infliximab-Dyyb [Inflectra] 1 dose IV Q42D 05/23/20 [History] oxyCODONE-APAP 10-325MG [Percocet 10-325 mg] 1 tab PO BID PRN 04/17/22 [History] ALPRAZolam [Xanax] 0.25 mg PO BID 11/05/22 [History] Albuterol Inhaler [Ventolin Hfa Inhaler] 2 puff INHALATION RT-Q6H PRN 11/05/22 [History] Albuterol Nebulized [Ventolin Nebulized] 2.5 mg INHALATION RT-QID PRN 07/12/23 [History] Amoxic-Pot Clav 875-125Mg [Augmentin 875-125] 1 tab PO Q12HR 7 Days #14 tab 07/14/23 [Rx] predniSONE 10 mg PO DIRECTED #30 tab 07/14/23 [Rx] Follow up Appointment(s)/Referral(s): Abdi Taylor MD [REFERRING] - 1 Week Taye Caldwell MD [REFERRING] - 1 Week Patient Instructions/Handouts: Sinusitis (GEN), Acute Nausea and Vomiting (DC) Activity/Diet/Wound Care/Special Instructions: Activity limited until follow-up Follow-up with primary care provider on discharge Follow-up with specialists as soon as possible Continue taking medications as prescribed Discharge Disposition: HOME SELF-CARE
== END 2023-07-14 15:20 | disposition home or self-care (01) ==
LOC: EC 22:18 → 6NMEDSUR 07-12 01:08 → 5NMEDONC 07-14 14:29
PROVIDERS: ADMIT Internal Medicine; ATTEND Internal Medicine
DX: R11.2 Nausea with vomiting, unspecified (principal); E11.43 Type 2 diabetes mellitus with diabetic autonomic (poly)neuropathy; K31.84 Gastroparesis; J32.9 Chronic sinusitis, unspecified; G35 Multiple sclerosis; J45.909 Unspecified asthma, uncomplicated; K21.9 Gastro-esophageal reflux disease without esophagitis; G47.33 Obstructive sleep apnea (adult) (pediatric); E03.9 Hypothyroidism, unspecified; D86.9 Sarcoidosis, unspecified; G89.29 Other chronic pain; M54.9 Dorsalgia, unspecified; G43.909 Migraine, unspecified, not intractable, without status migrainosus; F32.A Depression, unspecified; F41.9 Anxiety disorder, unspecified; Z79.890 Hormone replacement therapy; Z79.84 Long term (current) use of oral hypoglycemic drugs; Z79.899 Other long term (current) drug therapy; Z91.040 Latex allergy status
CPT/HCPCS: 96376 ×4; 96361 ×4; 96366 ×4; 96367; 96372 ×3; 96375 ×3; 96368; 96365; 99285; 36415; 94640; 94760; 80053 ×2; 80048; 83605; 83735; 85025 ×3; 81003; 87040; 87636; 71045; 71275; 74174; G0378 ×3; J1200 ×4; J1644 ×3; J2930; J2405 ×2; J3475; J3480; J0295 ×3; J1885; C9113; J1170 ×3; Q9967; J2919 ×4

== ENCOUNTER 2023-09-06 18:11 | Inpatient (IN) | payer MEDICARE, OTHER ==
[2023-09-06] MEDS ORDERED: NALOXONE 0.4 MG/ML 1 ML VIAL IV PRN (19:11)
--- NOTE | 2023-09-06 19:11 | ED ---
Recheck HPI - General Chief Complaint: Recheck/Abnormal Lab/Rx Stated Complaint: muscle spasm Time Seen by Provider: 09/06/23 18:37 Source: patient, RN notes reviewed, old records reviewed Mode of arrival: ambulatory Limitations: no limitations - History of Present Illness Initial Comments: Is a 53-year-old female to the ER for evaluation patient presents today for evaluation of severe weakness severe pain patient has severe pain and states her back pain pump is stopped working patient states her pain is uncontrolled she has a severe headache severe back pain severe abdominal pain with long history of chronic pain as well as believes she may be having an MS exacerbation secondary to the severe pain that she is in numbness and tingling down the legs which are consistent with her normal MS findings MD Complaint: medication refill request -: days(s) Returns Today for: persistent/worsening pain related to initial visit Context: ran out of medication Treatments Prior to Arrival: Given Pain Meds on - Related Data Home Medications Medication Instructions Recorded Confirmed DULoxetine HCL [Cymbalta] 60 mg PO DAILY 01/10/17 09/06/23 Levothyroxine Sodium [Synthroid] 112 mcg PO DAILY 12/05/18 09/06/23 rOPINIRole HCL [Requip] 2 mg PO TID 12/05/18 09/06/23 Baclofen 10 mg PO TID 04/29/19 09/06/23 Ondansetron Odt [Zofran ODT] 8 mg PO DAILY PRN 11/13/19 09/06/23 Gabapentin [Neurontin] 100 mg PO TID 05/10/20 09/06/23 Pantoprazole Sodium [Protonix] 40 mg PO BID 05/10/20 09/06/23 SUMAtriptan succinate 6 mg SQ BID PRN 05/10/20 09/06/23 methocarbamoL [Robaxin] 500 mg PO TID 05/10/20 09/06/23 Infliximab-Dyyb [Inflectra] 1 dose IV Q42D 05/23/20 09/06/23 oxyCODONE-APAP 10-325MG [Percocet 1 tab PO BID PRN 04/17/22 09/06/23 10-325 mg] ALPRAZolam [Xanax] 0.25 mg PO BID 11/05/22 09/06/23 Albuterol Inhaler [Ventolin Hfa 2 puff INHALATION RT-Q6H PRN 11/05/22 09/06/23 Inhaler] Albuterol Nebulized [Ventolin 2.5 mg INHALATION RT-QID PRN 07/12/23 09/06/23 Nebulized] Patient Own Pump 0 bag 09/06/23 Previous Rx's Medication Instructions Recorded metFORMIN HCL [Glucophage] 500 mg PO BID #60 tab 02/10/18 Allergies Allergy/AdvReac Type Severity Reaction Status Date / Time adhesive Allergy Severe Rash/Hives Verified 09/06/23 20:40 adhesive tape Allergy Severe Rash/Hives Verified 09/06/23 20:40 fentanyl Allergy Severe Rash/Hives Verified 09/06/23 20:40 from patch only latex Allergy Severe Rash/Hives Verified 09/06/23 20:40 metoclopramide [From Reglan] Allergy dystonia Verified 09/06/23 20:40 from IV Reglan prochlorperazine Allergy dystonia Verified 09/06/23 20:40 [From Compazine] Review of Systems ROS Statement: Those systems with pertinent positive or pertinent negative responses have been documented in the HPI. ROS Other: All systems not noted in ROS Statement are negative. Past Medical History Past Medical History: Asthma, Diabetes Mellitus, GERD/Reflux, Musculoskeletal Disorder, Neurologic Disorder, Sleep Apnea/CPAP/BIPAP, Thyroid Disorder Additional Past Medical History / Comment(s): MS, back pain, DDD, optic neuritis, Gastroparesis., C-Diff (June 2018) leukopenia (sores in mouth) mi graines, sleep apnea due to M.S. (no machine), sarcoidosis, cyst in stomach. , hopitalized 10/04/19 after lumbar puncture because heart rate dropped, hospitalized 10/10/19 for headache (post l.p.), states allergy to all adhesive and needs benadryl IV 50mg prior to using tape or tegaderm etc. History of Any Multi-Drug Resistant Organisms: C-DIFF Date of last positivie culture/infection: 2018 MDRO Source:: stool Past Surgical History: Bladder Surgery, Breast Surgery, Hernia Repair, Hysterectomy, Orthopedic Surgery, Tubal Ligation Additional Past Surgical History / Comment(s): rhinoplasty, bladder suspension, breast sx, morphine pump, RT KNEE SCOPE, TUMMY TUCK, Spinal cord stimulator inserted and removed. port august 2019, gastroparesis botox and EGD 11/06/2019, breast implants, gastric surgery (g-poem) 05/05/20, Stent placed on kidney, hernia repair X2 Past Anesthesia/Blood Transfusion Reactions: Motion Sickness, Postoperative Nausea & Vomiting (PONV) Past Psychological History: No Psychological Hx Reported Smoking Status: Never smoker Past Alcohol Use History: Occasional Past Drug Use History: None Reported - Past Family History Father History Unknown: Yes Family Medical History: No Reported History Additional Family Medical History / Comment(s): . Mother History Unknown: Yes Family Medical History: No Reported History Additional Family Medical History / Comment(s): NO FAMILY HISTORY General Exam Limitations: no limitations General appearance: alert, in no apparent distress Head exam: Present: atraumatic, normocephalic, normal inspection Eye exam: Present: normal appearance, PERRL, EOMI. Absent: scleral icterus, conjunctival injection, periorbital swelling ENT exam: Present: normal exam, mucous membranes moist Neck exam: Present: normal inspection. Absent: tenderness, meningismus, lymphadenopathy Respiratory exam: Present: normal lung sounds bilaterally. Absent: respiratory distress, wheezes, rales, rhonchi, stridor Cardiovascular Exam: Present: regular rate, normal rhythm, normal heart sounds. Absent: systolic murmur, diastolic murmur, rubs, gallop, clicks GI/Abdominal exam: Present: soft, normal bowel sounds. Absent: distended, tenderness, guarding, rebound, rigid Extremities exam: Present: normal inspection, full ROM, normal capillary refill. Absent: tenderness, pedal edema, joint swelling, calf tenderness Back exam: Present: normal inspection Neurological exam: Present: alert, oriented X3, CN II-XII intact Psychiatric exam: Present: normal affect, normal mood Skin exam: Present: warm, dry, intact, normal color. Absent: rash Course Vital Signs 09/06/23 18:17 Temperature 98.4 F Pulse Rate 88 Respiratory 20 Rate Blood Pressure 123/82 O2 Sat by Pulse 99 Oximetry - Reevaluation(s) Reevaluation #1: 09/06/23 19:15 Records reviewed Reevaluation #2: 09/06/23 19:15 Symptoms improving Reevaluation #3: 09/06/23 19:15 Patient informed of results questions answered Reevaluation #4: Was pt. sent in by a medical professional or institution (GILLIAN Garza, RETAIL CUSTOMER SERVICE REPRESENTATIVE, urgent care, hospital, or skilled nursing...) When possible be specific @ -no Did you speak to anyone other than the patient for history (EMS, parent, family, police, friend...)? What history was obtained from this source @ -no Did you review nursing and triage notes (agree or disagree)? Why? @ -agree Are old charts reviewed (outside hosp., previous admission, EMS record, old EKG, old radiological studies, urgent care reports/EKG's, skilled nursing records)? Report findings @ -yes Differential Diagnosis (chest pain, altered mental status, abdominal pain women, abdominal pain men, vaginal bleeding, weakness, fever, dyspnea, syncope, headache, dizziness, GI bleed, back pain, seizure, CVA, palpatations, mental health, musculoskeletal)? @ -prior EKG interpreted by me (3pts min.). @ -no X-rays interpreted by me (1pt min.). @ -no CT interpreted by me (1pt min.). @ -no U/S interpreted by me (1pt. min.). @ -no What testing was considered but not performed or refused? (CT, X-rays, U/S, labs)? Why? @ -none What meds were considered but not given or refused? Why? @ -none Did you discuss the management of the patient with other professionals (professionals i.e. GILLIAN Garza, RETAIL CUSTOMER SERVICE REPRESENTATIVE, lab, RT, psych nurse, adoption social worker, paid intern, teacher, command center officer, business case analyst)? Give summary @ -no Was smoking cessation discussed for >3mins.? @ -no Were there social determinants of health that impacted care today? How? (Homelessness, low income, unemployed, alcoholism, drug addiction, transportation, low edu. Level, literacy, decrease access to med. care, senior living, rehab)? @ -none Was there de-escalation of care discussed even if they declined (Discuss DNR or withdrawal of care, Hospice)? DNR status @ -no What co-morbidities impacted this encounter? (DM, HTN, Smoking, COPD, CAD, Cancer, CVA, ARF, Chemo, Hep., AIDS, mental health diagnosis, sleep apnea, morbid obesity)? @ -none Was patient admitted / discharged? Hospital course, mention meds given and route, prescriptions, significant lab abnormalities, going to OR and other pertinent info. @ - 53 Female to ER for MS exacerbation with chronic pain exacerbation, pain pump is stopped working, patient will be admitted for symptomatic treatment Admitted Was critical care preformed (if so, how long)? @ -no Undiagnosed new problem with uncertain prognosis? @ -no Drug Therapy requiring intensive monitoring for toxicity (Heparin, Nitro, Insulin, Cardizem)? @ -no Were any procedures done? @ -no Diagnosis/symptom? @ -MS exacerbation, chronic pain Acute, or Chronic, or Acute on Chronic? @ -Acute Uncomplicated (without systemic symptoms) or Complicated (systemic symptoms)? @ -Complicated Side effects of treatment? @ -no Exacerbation, Progression, or Severe Exacerbation? @ -exacerbation Poses a threat to life or bodily function? How? (Chest pain, [place], [place], pneumonia, PE, COPD, DKA, ARF, appy, cholecystitis, CVA, Diverticulitis, Homicidal, Suicidal, threat to staff... and all critical care pts) @ -no - Consultations Consultation #1: With Dr. Ferreira agrees to admit the patient Medical Decision Making - Medical Decision Making 53 Female to ER for MS exacerbation with chronic pain exacerbation, pain pump is stopped working, patient will be admitted for symptomatic treatment - Lab Data Result diagrams: 09/09/23 04:40 09/09/23 04:36 Lab Results 09/07/23 09/07/23 09/07/23 Range/Units 04:08 04:08 04:08 WBC 4.68 (4.50-10.00) X 10*3/uL RBC 4.42 (4.10-5.20) X 10*6/uL Hgb 11.7 L (12.0-15.0) g/dL Hct 36.8 L (37.2-46.3) % MCV 83.3 (80.0-97.0) FL MCH 26.5 L (27.0-32.0) pg MCHC 31.8 L (32.0-37.0) g/dL RDW 15.1 H (11.5-14.5) % Plt Count 288 (140-440) X 10*3/uL MPV 9.9 (9.5-12.2) FL Immature Gran % (Auto) 0.40 % Absolute Nucleated RBC 0 % Neutrophils % 68.2 % Lymphocytes % 29.7 % Monocytes % 1.1 % Eosinophils % 0 % Basophils % 0.6 % Immature Gran # 0.02 (0.00-0.04) X 10*3/uL Neutrophils # 3.19 (1.80-7.70) X 10*3/uL Lymphocytes # 1.39 (0.90-5.00) X 10*3/uL Monocytes # 0.05 L (0.20-1.00) X 10*3/uL Eosinophils # 0 L (0.04-0.35) X 10*3/uL Basophils # 0.03 (0.00-0.10) X 10*3/uL NRBC/100 WBC Diff 0 (0.00-0.01) X 10*3/uL Sodium 142 (135-145) mmol/L Potassium 4.2 (3.5-5.5) mmol/L Chloride 107 (96-109) mmol/L Carbon Dioxide 24.0 (21.6-31.8) mmol/L Anion Gap 11.00 (4.00-12.00) mmol/L BUN 15.5 (9.0-27.0) mg/dL Creatinine 0.9 (0.6-1.5) mg/dL Est GFR (CKD-EPI) 77 (>=60) BUN/Creatinine Ratio 17.22 (12.00-20.00) Ratio Glucose 182 H (70-110) mg/dL POC Glucose (mg/dL) (70-110) mg/dL POC Glu Copyholder ID Estimated Ave Glu mg/dL 134 mg/dL Hemoglobin A1c 6.3 H (<=6.0) % Calcium 9.2 (8.7-10.3) mg/dL Phosphorus 4.0 (2.4-5.1) mg/dL Magnesium 1.9 (1.5-2.4) mg/dL Total Bilirubin 0.4 (0.3-1.2) mg/dL AST 20 (13-35) U/L ALT 16 (8-44) U/L Alkaline Phosphatase 83 (41-126) U/L Total Protein 6.4 (6.2-8.2) g/dL Albumin 4.0 (3.8-4.9) g/dL Globulin 2.4 (1.6-3.3) g/dL Albumin/Globulin Ratio 1.67 (1.60-3.17) Ratio 09/07/23 09/07/23 Range/Units 06:12 12:17 WBC (4.50-10.00) X 10*3/uL RBC (4.10-5.20) X 10*6/uL Hgb (12.0-15.0) g/dL Hct (37.2-46.3) % MCV (80.0-97.0) FL MCH (27.0-32.0) pg MCHC (32.0-37.0) g/dL RDW (11.5-14.5) % Plt Count (140-440) X 10*3/uL MPV (9.5-12.2) FL Immature Gran % (Auto) % Absolute Nucleated RBC % Neutrophils % % Lymphocytes % % Monocytes % % Eosinophils % % Basophils % % Immature Gran # (0.00-0.04) X 10*3/uL Neutrophils # (1.80-7.70) X 10*3/uL Lymphocytes # (0.90-5.00) X 10*3/uL Monocytes # (0.20-1.00) X 10*3/uL Eosinophils # (0.04-0.35) X 10*3/uL Basophils # (0.00-0.10) X 10*3/uL NRBC/100 WBC Diff (0.00-0.01) X 10*3/uL Sodium (135-145) mmol/L Potassium (3.5-5.5) mmol/L Chloride (96-109) mmol/L Carbon Dioxide (21.6-31.8) mmol/L Anion Gap (4.00-12.00) mmol/L BUN (9.0-27.0) mg/dL Creatinine (0.6-1.5) mg/dL Est GFR (CKD-EPI) (>=60) BUN/Creatinine Ratio (12.00-20.00) Ratio Glucose (70-110) mg/dL POC Glucose (mg/dL) 168 H 161 H (70-110) mg/dL POC Glu Copyholder ID [address] Estimated [address] Glu mg/dL mg/dL Hemoglobin A1c (<=6.0) % Calcium (8.7-10.3) mg/dL Phosphorus (2.4-5.1) mg/dL Magnesium (1.5-2.4) mg/dL Total Bilirubin (0.3-1.2) mg/dL AST (13-35) U/L ALT (8-44) U/L Alkaline Phosphatase (41-126) U/L Total Protein (6.2-8.2) g/dL Albumin (3.8-4.9) g/dL Globulin (1.6-3.3) g/dL Albumin/Globulin Ratio (1.60-3.17) Ratio Disposition Clinical Impression: Headache, Migraine, Multiple sclerosis, Palpitations, Severe back pain Disposition: ADMITTED IP TO THIS [facility] Condition: Good Is patient prescribed a controlled substance at d/c from ED?: No Time of Disposition: 19:00
[2023-09-06] MEDS: diphenhydrAMINE 50 MG/ML 1 ML VIAL IVP STA (20:25)
[2023-09-06] MEDS: SODIUM CHLORIDE 0.9% 1,000 ML IV SCH (20:25)
[2023-09-06] MEDS: methylPREDNISolone SOD SUCCIN 250 MG in SODIUM CHLORIDE 0.9% 100 ML IVPB STA (20:30)
[2023-09-06] MEDS: HYDROmorphone 1 MG/ML 1 ML SYRINGE IVP STA (20:31)
[2023-09-06] MEDS ORDERED: oxyCODONE-APAP 10-325MG 1 EACH TAB PO PRN (23:12)
[2023-09-06] MEDS ORDERED: ALBUTEROL NEBULIZED 2.5 MG/3 ML INHALATION PRN ×2 (23:12)
[2023-09-06] MEDS ORDERED: DEXTROSE 50% SYRINGE 50 ML IVP PRN ×2 (23:17)
[2023-09-07] MEDS: HYDROmorphone 1 MG/ML 1 ML SYRINGE IVP PRN (00:11)
[2023-09-07] MEDS: methylPREDNISolone SOD SUCCIN 500 MG in SODIUM CHLORIDE 0.9% 100 ML IVPB SCH ×2 (00:12→20:59)
[2023-09-07 06:14] LABS: Glucose,Whole Blood 168 mg/dL (70-110)
[2023-09-07] MEDS: INSULIN ASPART (NovoLOG) 100 UNIT/ML VIAL SQ SCH ×2 (06:16→13:06)
[2023-09-07] MEDS: LEVOTHYROXINE 112 MCG TAB PO SCH (06:16)
[2023-09-07] MEDS: PANTOPRAZOLE 40 MG TABLET PO SCH ×2 (06:17→16:46)
[2023-09-07] MEDS: ONDANSETRON 4 MG/2 ML VIAL IVP PRN (06:17)
[2023-09-07] MEDS: metFORMIN 500 MG TAB PO SCH ×2 (06:17→16:46)
[2023-09-07] MEDS: diphenhydrAMINE 50 MG/ML 1 ML VIAL IVP PRN ×2 (06:18→17:58)
[2023-09-07] MEDS: GABAPENTIN 100 MG CAP PO SCH ×2 (08:23→16:47)
[2023-09-07] MEDS: ALPRAZolam 0.25 MG TAB PO SCH ×2 (08:23→21:00)
[2023-09-07] MEDS: DULoxetine HCL 60 MG CAPSULE.DR PO SCH (08:23)
[2023-09-07] MEDS: BACLOFEN 10 MG TAB PO SCH (08:23)
[2023-09-07 09:48] LABS: Basophils # (A) 0.03 X 10*3/uL (0.00-0.10); Basophils % (A) 0.6 %; Eosinophils # (A) 0 X 10*3/uL (0.04-0.35); Eosinophils % (A) 0 %; HCT 36.8 % (37.2-46.3); HGB 11.7 g/dL (12.0-15.0); Lymphocytes # (A) 1.39 X 10*3/uL (0.90-5.00); Lymphocytes % (A) 29.7 %; MCH 26.5 pg (27.0-32.0); MCHC 31.8 g/dL (32.0-37.0); MCV 83.3 FL (80.0-97.0); Mean Platelet Volume 9.9 FL (9.5-12.2); Monocytes # (A) 0.05 X 10*3/uL (0.20-1.00); Monocytes % (A) 1.1 %; NRBC Per 100 WBC 0 X 10*3/uL (0.00-0.01); Neutrophils # (A) 3.19 X 10*3/uL (1.80-7.70); Neutrophils % (A) 68.2 %; Platelet Count 288 X 10*3/uL (140-440); RBC 4.42 X 10*6/uL (4.10-5.20); RDW 15.1 % (11.5-14.5); WBC 4.68 X 10*3/uL (4.50-10.00)
[2023-09-07 09:52] LABS: ALT 16 U/L (8-44); AST 20 U/L (13-35); Albumin/Globulin Ratio 1.67 Ratio (1.60-3.17); Alkaline Phosphatase 83 U/L (41-126); BUN/Creat Ratio 17.22 Ratio (12.00-20.00); Blood Urea Nitrogen 15.5 mg/dL (9.0-27.0); Calcium 9.2 mg/dL (8.7-10.3); Chloride 107 mmol/L (96-109); Globulin 2.4 g/dL (1.6-3.3); Glucose 182 mg/dL (70-110); Magnesium 1.9 mg/dL (1.5-2.4); Potassium 4.2 mmol/L (3.5-5.5); Sodium 142 mmol/L (135-145); Total Bilirubin 0.4 mg/dL (0.3-1.2); Total Protein 6.4 g/dL (6.2-8.2)
--- NOTE | 2023-09-07 11:46 | P.PAINCN ---
History of Present Illness - Reason for Consult Consult date: 09/07/23 - History of Present Illness This is 53 years old Femal with a history of severe and chronic low back pain, and abdominal pain, and headache, patient had intrathecal pain pump placed at [facility], and the intrathecal pain pump was managed by , patient was admitted to [facility] because of severe intractable pain, patient had a history of multiple sclerosis and she has MS exacerbation, patient had follow-up appointment with to in the next week, Patient reported that she had generalized pain intensity of the pain is 8/10, also patient had history of sarcoidosis and she is currently on infiximab Past Medical History Past Medical History: Asthma, Diabetes Mellitus, GERD/Reflux, Musculoskeletal Disorder, Neurologic Disorder, Sleep Apnea/CPAP/BIPAP, Thyroid Disorder Additional Past Medical History / Comment(s): MS, back pain, DDD, optic neuritis, Gastroparesis., C-Diff (June 2018) leukopenia (sores in mouth) migraines, sleep apnea due to M.S. (no machine), sarcoidosis, cyst in stomach. , hopitalized 10/04/19 after lumbar puncture because heart rate dropped, hospitalized 10/10/19 for headache (post l.p.), states allergy to all adhesive and needs benadryl IV 50mg prior to using tape or tegaderm etc. History of Any Multi-Drug Resistant Organisms: C-DIFF Year Discovered:: 2018 MDRO Source:: stool Past Surgical History: Bladder Surgery, Breast Surgery, Hernia Repair, Hysterectomy, Orthopedic Surgery, Tubal Ligation Additional Past Surgical History / Comment(s): rhinoplasty, bladder suspension, breast sx, morphine pump, RT KNEE SCOPE, TUMMY TUCK, Spinal cord stimulator inserted and removed. port august 2019, gastroparesis botox and EGD 11/06/2019, breast implants, gastric surgery (g-poem) 05/05/20, Stent placed on kidney, hernia repair X2 Past Anesthesia/Blood Transfusion Reactions: Motion Sickness, Postoperative Nausea & Vomiting (PONV) Past Psychological History: No Psychological Hx Reported Additional Psychological History / Comment(s): . Smoking Status: Never smoker Past Alcohol Use History: None Reported Past Drug Use History: None Reported - Past Family History Father History Unknown: Yes Family Medical History: No Reported History Additional Family Medical History / Comment(s): . Mother History Unknown: Yes Family Medical History: No Reported History Additional Family Medical History / Comment(s): NO FAMILY HISTORY Medications and Allergies Home Medications Medication Instructions Recorded Confirmed Type DULoxetine HCL [Cymbalta] 60 mg PO DAILY 01/10/17 09/06/23 History metFORMIN HCL [Glucophage] 500 mg PO BID #60 tab 02/10/18 09/06/23 Rx Levothyroxine Sodium [Synthroid] 112 mcg PO DAILY 12/05/18 09/06/23 History rOPINIRole HCL [Requip] 2 mg PO TID 12/05/18 09/06/23 History Baclofen 10 mg PO TID 04/29/19 09/06/23 History Ondansetron Odt [Zofran ODT] 8 mg PO DAILY PRN 11/13/19 09/06/23 History Gabapentin [Neurontin] 100 mg PO TID 05/10/20 09/06/23 History Pantoprazole Sodium [Protonix] 40 mg PO BID 05/10/20 09/06/23 History SUMAtriptan succinate 6 mg SQ BID PRN 05/10/20 09/06/23 History methocarbamoL [Robaxin] 500 mg PO TID 05/10/20 09/06/23 History Infliximab-Dyyb [Inflectra] 1 dose IV Q42D 05/23/20 09/06/23 History oxyCODONE-APAP 10-325MG [Percocet 1 tab PO BID PRN 04/17/22 09/06/23 History 10-325 mg] ALPRAZolam [Xanax] 0.25 mg PO BID 11/05/22 09/06/23 History Albuterol Inhaler [Ventolin Hfa 2 puff INHALATION RT-Q6H PRN 11/05/22 09/06/23 History Inhaler] Albuterol Nebulized [Ventolin 2.5 mg INHALATION RT-QID PRN 07/12/23 09/06/23 History Nebulized] Patient Own Pump 0 bag 09/06/23 History Allergies Allergy/AdvReac Type Severity Reaction Status Date / Time adhesive Allergy Severe Rash/Hives Verified 09/06/23 20:40 adhesive tape Allergy Severe Rash/Hives Verified 09/06/23 20:40 fentanyl Allergy Severe Rash/Hives Verified 09/06/23 20:40 from patch only latex Allergy Severe Rash/Hives Verified 09/06/23 20:40 metoclopramide [From Reglan] Allergy dystonia Verified 09/06/23 20:40 from IV Reglan prochlorperazine Allergy dystonia Verified 09/06/23 20:40 [From Compazine] Physical Exam Vitals: Vital Signs Temp Pulse Pulse Resp BP BP Pulse Ox 09/07/23 07:00 98 F 59 L 16 113/69 94 L 09/07/23 02:13 97.7 F 66 17 119/73 97 09/06/23 22:00 97.7 F 53 L 16 146/87 100 09/06/23 18:17 98.4 F 88 20 123/82 99 Intake and Output 09/06/23 09/07/23 09/07/23 22:59 06:59 14:59 Intake Total 240 Balance 240 Intake: Oral 240 Other: Voiding Method Toilet Weight 90.718 kg PHYSICAL EXAMINATION: Patient is lying in the bed comfortably, no acute distress, awake alert and oriented.. HEENT: Normocephalic. Neck is supple. Pupils reactive. Nostrils clear. Oral cavity is moist. No pharyngeal erythema/redness Extremities: reveal no edema. No clubbing or cyanosis Neurologically awake, alert, oriented x3 with well-coordinated movements. No focal deficits noted Skin: No rash or skin lesions. Psychiatric: Coperative. anxious. Results CBC & Chem 7: 09/07/23 04:08 09/07/23 04:08 Labs: Abnormal Lab Results - Last 24 Hours (Table) 09/07/23 09/07/23 09/07/23 Range/Units 04:08 04:08 04:08 Hgb 11.7 L (12.0-15.0) g/dL Hct 36.8 L (37.2-46.3) % MCH 26.5 L (27.0-32.0) pg MCHC 31.8 L (32.0-37.0) g/dL RDW 15.1 H (11.5-14.5) % Monocytes # 0.05 L (0.20-1.00) X 10*3/uL Eosinophils # 0 L (0.04-0.35) X 10*3/uL Glucose 182 H (70-110) mg/dL POC Glucose (mg/dL) (70-110) mg/dL Hemoglobin A1c 6.3 H (<=6.0) % 09/07/23 Range/Units 06:12 Hgb (12.0-15.0) g/dL Hct (37.2-46.3) % MCH (27.0-32.0) pg MCHC (32.0-37.0) g/dL RDW (11.5-14.5) % Monocytes # (0.20-1.00) X 10*3/uL Eosinophils # (0.04-0.35) X 10*3/uL Glucose (70-110) mg/dL POC Glucose (mg/dL) 168 H (70-110) mg/dL Hemoglobin A1c (<=6.0) % Assessment and Plan Plan: Assessment and plan=1 1-chronic and severe low back pain and generalized pain. 2-multiple sclerosis. 3-chronic pain syndrome. Patient currently on intrathecal opioid, he reported that the current medication is not helping enough to control her pain she reported that intensity of her pain is 8/, 3 thecal pain pump analyzed showed patient currently on intrathecal morphine sulfate concentration 25 mg/mL and bupivacaine concentration 10 mg/mL, patient receiving a daily dose of morphine 2.4 mg/day and bupivacaine 0.9 mg/day, and because patient currently complaining of severe pain and intensity of the pain 11/10 I gave the patient intrathecal bolus of morphine sulfate 0.5 mg single bolus over 10 minutes, and I increased the intrathecal morphine dose to 2.95 mg/day which is equal to 5% increase in a dc ly dose, patient can be discharged home and she can follow-up with her pain physician as an outpatient Time with Patient: Less than 30 PQRS Measure Charge Sheet - Pain Location Bilateral Leg Non-Pharmacological Interventions: Position/Reposition, Reduce Environmental Stimuli Pharmacological Interventions: Discuss Pain Med Options, PRN Medication PQRS Narrative: Smoking Status Never smoker Blood Pressure [Right Arm] 113/69 Blood Pressure 123/82 Pain Intensity [Bilateral Leg] 8 Pain Intensity 8 Pain Scale Used Numeric (1 - 10) Scale Used Numeric (1 - 10) Home Medications: Ambulatory Orders DULoxetine HCL [Cymbalta] 60 mg PO DAILY 01/10/17 metFORMIN HCL [Glucophage] 500 mg PO BID #60 tab 02/10/18 Levothyroxine Sodium [Synthroid] 112 mcg PO DAILY 12/05/18 rOPINIRole HCL [Requip] 2 mg PO TID 12/05/18 Baclofen 10 mg PO TID 04/29/19 Ondansetron Odt [Zofran ODT] 8 mg PO DAILY PRN 11/13/19 Gabapentin [Neurontin] 100 mg PO TID 05/10/20 Pantoprazole Sodium [Protonix] 40 mg PO BID 05/10/20 SUMAtriptan succinate 6 mg SQ BID PRN 05/10/20 methocarbamoL [Robaxin] 500 mg PO TID 05/10/20 Infliximab-Dyyb [Inflectra] 1 dose IV Q42D 05/23/20 oxyCODONE-APAP 10-325MG [Percocet 10-325 mg] 1 tab PO BID PRN 04/17/22 ALPRAZolam [Xanax] 0.25 mg PO BID 11/05/22 Albuterol Inhaler [Ventolin Hfa Inhaler] 2 puff INHALATION RT-Q6H PRN 11/05/22 Albuterol Nebulized [Ventolin Nebulized] 2.5 mg INHALATION RT-QID PRN 07/12/23 Patient Own Pump 0 bag 09/06/23
[2023-09-07 12:18] LABS: Glucose,Whole Blood 161 mg/dL (70-110)
--- NOTE | 2023-09-07 12:31 | P.HPIM ---
History of Present Illness H&P Date: 09/07/23 Chief Complaint: Pain, chronic low back This is a 53-year-old white female with chronic low back pain on morphine pump who is being admitted to the hospital with intractable low back pain. She ran out of her morphine at home. She describes the pain as moderate to severe rad iating to her lower extremities. She denies chest pain, no shortness of breath, no hematuria dysuria hematemesis hematochezia. No diplopia. Review of Systems 10 systems reviewed, pertinent positive and negative HPI. Low back pain, no chest pain. Past Medical History Past Medical History: Asthma, Diabetes Mellitus, GERD/Reflux, Musculoskeletal Disorder, Neurologic Disorder, Sleep Apnea/CPAP/BIPAP, Thyroid Disorder Additional Past Medical History / Comment(s): MS, back pain, DDD, optic neuritis, Gastroparesis., C-Diff (June 2018) leukopenia (sores in mouth) migraines, sleep apnea due to M.S. (no machine), sarcoidosis, cyst in stomach. , hopitalized 10/04/19 after lumbar puncture because heart rate dropped, hospitalized 10/10/19 for headache (post l.p.), states allergy to all adhesive and needs benadryl IV 50mg prior to using tape or tegaderm etc. History of Any Multi-Drug Resistant Organisms: C-DIFF Date of last positivie culture/infection: 2018 MDRO Source:: stool Past Surgical History: Bladder Surgery, Breast Surgery, Hernia Repair, Hysterectomy, Orthopedic Surgery, Tubal Ligation Additional Past Surgical History / Comment(s): rhinoplasty, bladder suspension, breast sx, morphine pump, RT KNEE SCOPE, TUMMY TUCK, Spinal cord stimulator inserted and removed. port august 2019, gastroparesis botox and EGD 11/06/2019, breast implants, gastric surgery (g-poem) 05/05/20, Stent placed on kidney, hernia repair X2 Past Anesthesia/Blood Transfusion Reactions: Motion Sickness, Postoperative Nausea & Vomiting (PONV) Past Psychological History: No Psychological Hx Reported Additional Psychological History / Comment(s): . Smoking Status: Never smoker Past Alcohol Use History: None Reported Past Drug Use History: None Reported - Past Family History Father History Unknown: Yes Family Medical History: No Reported History Additional Family Medical History / Comment(s): . Mother History Unknown: Yes Family Medical History: No Reported History Additional Family Medical History / Comment(s): NO FAMILY HISTORY Medications and Allergies Home Medications Medication Instructions Recorded Confirmed Type DULoxetine HCL [Cymbalta] 60 mg PO DAILY 01/10/17 09/06/23 History metFORMIN HCL [Glucophage] 500 mg PO BID #60 tab 02/10/18 09/06/23 Rx Levothyroxine Sodium [Synthroid] 112 mcg PO DAILY 12/05/18 09/06/23 History rOPINIRole HCL [Requip] 2 mg PO TID 12/05/18 09/06/23 History Baclofen 10 mg PO TID 04/29/19 09/06/23 History Ondansetron Odt [Zofran ODT] 8 mg PO DAILY PRN 11/13/19 09/06/23 History Gabapentin [Neurontin] 100 mg PO TID 05/10/20 09/06/23 History Pantoprazole Sodium [Protonix] 40 mg PO BID 05/10/20 09/06/23 History SUMAtriptan succinate 6 mg SQ BID PRN 05/10/20 09/06/23 History methocarbamoL [Robaxin] 500 mg PO TID 05/10/20 09/06/23 History Infliximab-Dyyb [Inflectra] 1 dose IV Q42D 05/23/20 09/06/23 History oxyCODONE-APAP 10-325MG [Percocet 1 tab PO BID PRN 04/17/22 09/06/23 History 10-325 mg] ALPRAZolam [Xanax] 0.25 mg PO BID 11/05/22 09/06/23 History Albuterol Inhaler [Ventolin Hfa 2 puff INHALATION RT-Q6H PRN 11/05/22 09/06/23 History Inhaler] Albuterol Nebulized [Ventolin 2.5 mg INHALATION RT-QID PRN 07/12/23 09/06/23 History Nebulized] Patient Own Pump 0 bag 09/06/23 History Allergies Allergy/AdvReac Type Severity Reaction Status Date / Time adhesive Allergy Severe Rash/Hives Verified 09/06/23 20:40 adhesive tape Allergy Severe Rash/Hives Verified 09/06/23 20:40 fentanyl Allergy Severe Rash/Hives Verified 09/06/23 20:40 from patch only latex Allergy Severe Rash/Hives Verified 09/06/23 20:40 metoclopramide [From Reglan] Allergy dystonia Verified 09/06/23 20:40 from IV Reglan prochlorperazine Allergy dystonia Verified 09/06/23 20:40 [From Compazine] Physical Exam Vitals: Vital Signs Temp Pulse Pulse Resp BP BP Pulse Ox 09/07/23 07:00 98 F 59 L 16 113/69 94 L 09/07/23 02:13 97.7 F 66 17 119/73 97 09/06/23 22:00 97.7 F 53 L 16 146/87 100 09/06/23 18:17 98.4 F 88 20 123/82 99 Intake and Output 09/06/23 09/07/23 09/07/23 22:59 06:59 14:59 Intake Total 240 Balance 240 Intake: Oral 240 Other: Voiding Method Toilet Weight 90.718 kg Constitutional: No acute distress, conversant, pleasant Eyes: Anicteric sclerae, moist conjunctiva, no lid-lag, PERRLA ENMT: NC/AT,Oropharynx clear, no erythema, exudates Neck:Supple, FROM, no masses, or JVD, No carotid bruits; No thyromegaly Lungs: Clear to auscultation, Clear to percussion, Normal respiratory effort, no accessory muscle use Cardiovascular: Heart regular in rate and rhythm, No murmurs, gallops, or rubs no peripheral edema Abdominal: Soft Nontender, non distended, no guarding, no rebound or rigidity, Normoactive bowel sounds No hepatomegaly, No splenomegaly, No palpable mass No abdominal wall hernia noted Skin: Normal temperature, tone, texture, turgor, No induration No subcutaneous nodules, No rash, lesions, No ulcers Extremities:No digital cyanosis No clubbing, Pedal pulses intact and symmetrical Radial pulses intact and symmetrical Normal gait and station, No calf tenderness Psychiatric: Alert and oriented to person, place and time, Appropriate affect Intact judgement Neuro: Muscles Strength 5/5 in all 4 extremities, Sensation to light touch grossly present throughout, Cranial nerves II-XII grossly intact. No focal sensory deficits Results CBC & Chem 7: 09/07/23 04:08 09/07/23 04:08 Labs: Abnormal Lab Results - Last 24 Hours (Table) 09/07/23 09/07/23 09/07/23 Range/Units 04:08 04:08 04:08 Hgb 11.7 L (12.0-15.0) g/dL Hct 36.8 L (37.2-46.3) % MCH 26.5 L (27.0-32.0) pg MCHC 31.8 L (32.0-37.0) g/dL RDW 15.1 H (11.5-14.5) % Monocytes # 0.05 L (0.20-1.00) X 10*3/uL Eosinophils # 0 L (0.04-0.35) X 10*3/uL Glucose 182 H (70-110) mg/dL POC Glucose (mg/dL) (70-110) mg/dL Hemoglobin A1c 6.3 H (<=6.0) % 09/07/23 Range/Units 06:12 Hgb (12.0-15.0) g/dL Hct (37.2-46.3) % MCH (27.0-32.0) pg MCHC (32.0-37.0) g/dL RDW (11.5-14.5) % Monocytes # (0.20-1.00) X 10*3/uL Eosinophils # (0.04-0.35) X 10*3/uL Glucose (70-110) mg/dL POC Glucose (mg/dL) 168 H (70-110) mg/dL Hemoglobin A1c (<=6.0) % Thrombosis Risk Factor Assmnt - Choose All That Apply Each Factor Represents 1 point: Age 41-60 years, Obesity (BMI >25) Thrombosis Risk Factor Assessment Total Risk Factor Score: 2 Thrombosis Risk Factor Assessment Level: Low Risk Assessment and Plan Assessment: Low back pain Plan: Assessment and plan: 1. Acute on chronic severe low back pain: On morphine pump, appreciate input from pain control team. Adjust medications accordingly. 2. Sclerosis with exacerbation: Continue IV steroids. 3. Hypothyroidism: Continue Synthroid. 4. Diabetes type 2 with peripheral neuropathy: Continue sliding scale and gabapentin. 5. GERD without esophagitis: Continue PPI 6. Anxiety: Continue Xanax. Disposition: Home in the next 1 to 2 days pending clinical progression
[2023-09-07] MEDS ORDERED: BACLOFEN 10 MG TAB PO PRN (12:34)
[2023-09-07] MEDS ORDERED: DEXTROSE 50% SYRINGE 50 ML IVP PRN ×2 (13:00)
--- NOTE | 2023-09-07 15:34 | P.CNNES ---
History of Present Illness Consult date: 09/07/23 Requesting physician: Jose Chacon Reason for Consult: Multiple Sclerosis History of Present Illness: This is a 53-year-old woman with history of multiple sclerosis, sarcoidosis, chronic back pain pain the emergency department because of worsening pain in the lower extremities from hips down for the last 6 days. She stated that she has a pain pump feels a stop working but feels her pain. She feels she is having numbness in her feet and tingling also has been happening for the last 6 days. She feels weaker in the legs. Follows up with Viky (Dr. No's P.A) for her neurological issues. She used to be on IV Ocrevus and it was not helping her condition then later she was felt to have sarcoidosis and she stated she is on infliximab every 6 weeks and her last session was about 6 weeks ago and she uses it for her sarcoidosis. She stated that she was on so many medication for multiple sclerosis and none of them has worked. She is on baclofen. Stated that she had multiple images to the brain and back. Notified by the nurse that the patient was telling her that she did not get the pain medication overnight but it is documented that the patient did receive the pain medication overnight. Some of the workup during this hospital visit consisted of: Hemoglobin A1c is 6.3. AST ALT, sodium, BUN/creatinine are within normal limits Review of Systems The positive and negative as per HPI. Past Medical History Past Medical History: Asthma, Diabetes Mellitus, GERD/Reflux, Musculoskeletal Disorder, Neurologic Disorder, Sleep Apnea/CPAP/BIPAP, Thyroid Disorder Additional Past Medical History / Comment(s): MS, back pain, DDD, optic neuritis, Gastroparesis., C-Diff (June 2018) leukopenia (sores in mouth) migraines, sleep apnea due to M.S. (no machine), sarcoidosis, cyst in stomach. , hopitalized 10/04/19 after lumbar puncture because heart rate dropped, hospitalized 10/10/19 for headache (post l.p.), states allergy to all adhesive and needs benadryl IV 50mg prior to using tape or tegaderm etc. History of Any Multi-Drug Resistant Organisms: C-DIFF Date of last positivie culture/infection: 2018 MDRO Source:: stool Past Surgical History: Bladder Surgery, Breast Surgery, Hernia Repair, Hysterec errol, Orthopedic Surgery, Tubal Ligation Additional Past Surgical History / Comment(s): rhinoplasty, bladder suspension, breast sx, morphine pump, RT KNEE SCOPE, TUMMY TUCK, Spinal cord stimulator inserted and removed. port august 2019, gastroparesis botox and EGD 11/06/2019, kandi ast implants, gastric surgery (g-poem) 05/05/20, Stent placed on kidney, hernia repair X2 Past Anesthesia/Blood Transfusion Reactions: Motion Sickness, Postoperative Nausea & Vomiting (PONV) Past Psychological History: No Psychological Hx Reported Additional Psychological History / Comment(s): . Smoking Status: Never smoker Past Alcohol Use History: None Reported Past Drug Use History: None Reported - Past Family History Father History Unknown: Yes Family Medical History: No Reported History Additional Family Medical History / Comment(s): . Mother History Unknown: Yes Family Medical History: No Reported History Additional Family Medical History / Comment(s): NO FAMILY HISTORY Medications and Allergies Home Medications Medication Instructions Recorded Confirmed Type DULoxetine HCL [Cymbalta] 60 mg PO DAILY 01/10/17 09/06/23 History metFORMIN HCL [Glucophage] 500 mg PO BID #60 tab 02/10/18 09/06/23 Rx Levothyroxine Sodium [Synthroid] 112 mcg PO DAILY 12/05/18 09/06/23 History rOPINIRole HCL [Requip] 2 mg PO TID 12/05/18 09/06/23 History Baclofen 10 mg PO TID 04/29/19 09/06/23 History Ondansetron Odt [Zofran ODT] 8 mg PO DAILY PRN 11/13/19 09/06/23 History Gabapentin [Neurontin] 100 mg PO TID 05/10/20 09/06/23 History Pantoprazole Sodium [Protonix] 40 mg PO BID 05/10/20 09/06/23 History SUMAtriptan succinate 6 mg SQ BID PRN 05/10/20 09/06/23 History methocarbamoL [Robaxin] 500 mg PO TID 05/10/20 09/06/23 History Infliximab-Dyyb [Inflectra] 1 dose IV Q42D 05/23/20 09/06/23 History oxyCODONE-APAP 10-325MG [Percocet 1 tab PO BID PRN 04/17/22 09/06/23 History 10-325 mg] ALPRAZolam [Xanax] 0.25 mg PO BID 11/05/22 09/06/23 History Albuterol Inhaler [Ventolin Hfa 2 puff INHALATION RT-Q6H PRN 11/05/22 09/06/23 History Inhaler] Albuterol Nebulized [Ventolin 2.5 mg INHALATION RT-QID PRN 07/12/23 09/06/23 History Nebulized] Patient Own Pump 0 bag 09/06/23 History Allergies Allergy/AdvReac Type Severity Reaction Status Date / Time adhesive Allergy Severe Rash/Hives Verified 09/06/23 20:40 adhesive tape Allergy Severe Rash/Hives Verified 09/06/23 20:40 fentanyl Allergy Severe Rash/Hives Verified 09/06/23 20:40 from patch only latex Allergy Severe Rash/Hives Verified 09/06/23 20:40 metoclopramide [From Reglan] Allergy dystonia Verified 09/06/23 20:40 from IV Reglan prochlorperazine Allergy dystonia Verified 09/06/23 20:40 [From Compazine] Physical Examination - Vital Signs Vital Signs: Vital Signs Temp Pulse Pulse Resp BP BP Pulse Ox 09/07/23 14:59 98.2 F 16 L 16 90/59 93 L 09/07/23 07:00 98 F 59 L 16 113/69 94 L 09/07/23 02:13 97.7 F 66 17 119/73 97 09/06/23 22:00 97.7 F 53 L 16 146/87 100 09/06/23 18:17 98.4 F 88 20 123/82 99 Intake and Output 09/07/23 09/07/23 09/07/23 06:59 14:59 22:59 Intake Total 358 Balance 358 Intake: Oral 358 Other: Voiding Method Toilet # Voids 2 General: Lying in bed and is not in acute distress. Neuro: Patient is awake alert oriented to self place and time. The patient is following simple commands. No aphasia no neglect. Pupils are round equal reactive to light. The pupils are round 3 mm bilaterally. Visual leung are full to confrontation. Extraocular movements intact. No facial weakness. No dysarthria Motor is a strength is 5 out of 5 throughout Sensation is normal to touch Reflexes is 2 positive throughout except at the ankles. Results - Laboratory Findings CBC and BMP: 09/07/23 04:08 09/07/23 04:08 Abnormal Lab Findings: Abnormal Labs 09/07/23 09/07/23 09/07/23 04:08 04:08 04:08 Hgb 11.7 L Hct 36.8 L MCH 26.5 L MCHC 31.8 L RDW 15.1 H Monocytes # 0.05 L Eosinophils # 0 L Glucose 182 H POC Glucose (mg/dL) Hemoglobin A1c 6.3 H 09/07/23 09/07/23 06:12 12:17 Hgb Hct MCH MCHC RDW Monocytes # Eosinophils # Glucose POC Glucose (mg/dL) 168 H 161 H Hemoglobin A1c Assessment and Plan Assessment: This is a 53-year-old woman with history of multiple sclerosis, sarcoidosis, chronic back pain as well as chronic pain was on the pain pump and feels she is having worsening pain in the lower extremities with numbness tingling and she feels her pump is ineffective. She notified the nurse that she did not receive her pain medication overnight while in the ED but according to the nurse to document that she did receive the pain medication. Patient states that she was on numerous medication for multiple sclerosis and they are ineffective. She is on infliximab every 6 weeks for her sarcoidosis and the last dose was August 04, 2023 Worsening of pain: Unsure if truly exacerbation vs functional History of multiple sclerosis History of sarcoidosis Chronic pain and has a pain pump Plan: Currently the patient is on steroids 500 mg every hours that was started by the ED team for concern of MS exacerbation. I change it to every 12 hours. She also received 250 mg once in the ED. Currently she feels this is not helping. She is on multiple pain medication oxycodone, Dilaudid, She is on baclofen 10 mg 3 times daily as needed Recommend MRI of spinal imaging and brain as outpatient when she follows-up with Viky (Dr. No[facility] to assess if truly any new lesions. Anesthesiology is consulted for pain pump. Consulted PT and OT Will defer the rest of the medical management to primary and other specialist Plan discussed with the patient and her nurse Thank for the consultation. She states that she wants to be discharged by tomorrow since she has other commitment. Otherwise no additional neurological workup Time with Patient: Greater than 30
[2023-09-07] MEDS: ALBUTEROL NEBULIZED 2.5 MG/3 ML INHALATION SCH (16:33)
[2023-09-07 17:35] LABS: Glucose,Whole Blood 195 mg/dL (70-110)
[2023-09-07 20:49] LABS: Glucose,Whole Blood 169 mg/dL (70-110)
[2023-09-07] MEDS: oxyCODONE-APAP 10-325MG 1 EACH TAB PO SCH (21:00)
[2023-09-08] MEDS: TRIMETHOBENZAMIDE 100 MG/ML 2 ML VIAL IM STA (03:24)
[2023-09-08] MEDS: PROMETHAZINE SUPPOSITORY 25 MG SUPP RECTAL STA (03:45)
[2023-09-08] MEDS: LEVOTHYROXINE 112 MCG TAB PO SCH (06:09)
[2023-09-08 06:14] LABS: Glucose,Whole Blood 202 mg/dL (70-110)
[2023-09-08 07:47] VITALS: RESP 16
[2023-09-08] MEDS ORDERED: DULoxetine HCL 30 MG CAPSULE.DR PO SCH (09:00)
--- NOTE | 2023-09-08 10:40 | P.PN ---
Subjective Progress Note Date: 09/08/23 Feels better today, pain is better controlled but reports nausea and an episode of vomiting earlier today. Remains afebrile, no chest pain no abdominal pain. Objective - Vital Signs Vital signs: Vital Signs Temp 99.2 F 09/08/23 07:46 Pulse 77 09/08/23 07:46 Resp 16 09/08/23 07:46 BP 100/63 09/08/23 07:46 Pulse Ox 96 09/08/23 07:46 FiO2 Intake & Output 09/07/23 09/08/23 09/08/23 18:59 06:59 18:59 Intake Total 358 Balance 358 Intake: Oral 358 Other: Voiding Method Toilet Toilet # Voids 2 1 - Exam Constitutional: No acute distress, conversant, pleasant Eyes: Anicteric sclerae, moist conjunctiva, no lid-lag, PERRLA ENMT: NC/AT,Oropharynx clear, no erythema, exudates Neck:Supple, FROM, no masses, or JVD, No carotid bruits; No thyromegaly Lungs: Clear to auscultation, Clear to percussion, Normal respiratory effort, no accessory muscle use Cardiovascular: Heart regular in rate and rhythm, No murmurs, gallops, or rubs no peripheral edema Abdominal: Soft Nontender, non distended, no guarding, no rebound or rigidity, Normoactive bowel sounds No hepatomegaly, No splenomegaly, No palpable mass No abdominal wall hernia noted Skin: Normal temperature, tone, texture, turgor, No induration No subcutaneous nodules, No rash, lesions, No ulcers Extremities:No digital cyanosis No clubbing, Pedal pulses intact and sym metrical Radial pulses intact and symmetrical Normal gait and station, No calf tenderness Psychiatric: Alert and oriented to person, place and time, Appropriate affect Intact judgement Neuro: Muscles Strength 5/5 in all 4 extremities, Sensation to light touch grossly present throughout, Cranial nerves II-XII grossly intact. No focal sensory deficits - Labs CBC & Chem 7: 09/07/23 04:08 09/07/23 04:08 Labs: Abnormal Lab Results - Last 24 Hours (Table) 09/07/23 09/07/23 09/07/23 Range/Units 12:17 17:33 20:47 POC Glucose (mg/dL) 161 H 195 H 169 H (70-110) mg/dL 09/08/23 Range/Units 06:13 POC Glucose (mg/dL) 202 H (70-110) mg/dL Assessment and Plan Assessment: Low back pain Plan: Assessment and plan: 1. Acute on chronic severe low back pain: On morphine pump, appreciate input from pain control team. Adjust medications accordingly. Pain appears to be better controlled. 2. Sclerosis with exacerbation: Continue IV steroids. 3. Hypothyroidism: Continue Synthroid. 4. Diabetes type 2 with peripheral neuropathy: Continue sliding scale and gabapentin. 5. GERD without esophagitis: Continue PPI 6. Anxiety: Continue Xanax. 7. Diabetic gastroparesis: Supportive care. Antiemetics as indicated Disposition: Home hopefully tomorrow
[2023-09-08 12:06] LABS: Glucose,Whole Blood 195 mg/dL (70-110)
--- NOTE | 2023-09-08 16:25 | P.PN ---
Subjective Progress Note Date: 09/08/23 I am following up with the patient and she states the steroids is helping her. Per primary team she had uncontrolled nausea and vomiting earlier today so therefore she had to stay here another night. Denies any neurological issues. Objective - Vital Signs Vital signs: Vital Signs Temp 98.7 F 09/08/23 14:00 Pulse 70 09/08/23 14:00 Resp 16 09/08/23 14:00 BP 105/66 09/08/23 14:00 Pulse Ox 93 L 09/08/23 14:00 FiO2 Intake & Output 09/07/23 09/08/23 09/08/23 18:59 06:59 18:59 Intake Total 358 Balance 358 Intake: Oral 358 Other: Voiding Method Toilet Toilet Toilet # Voids 2 1 2 - Exam General: Lying in bed and is not in acute distress. Neuro: Is awake alert but not cooperative for examination. Some of the workup during this hospital visit consisted of: Hemoglobin A1c is 6.3. AST ALT, sodium, BUN/creatinine are within normal limits - Labs CBC & Chem 7: 09/07/23 04:08 09/07/23 04:08 Labs: Abnormal Lab Results - Last 24 Hours (Table) 09/07/23 09/07/23 09/08/23 Range/Units 17:33 20:47 06:13 POC Glucose (mg/dL) 195 H 169 H 202 H (70-110) mg/dL 09/08/23 Range/Units 12:05 POC Glucose (mg/dL) 195 H (70-110) mg/dL Assessment and Plan Assessment: This is a 53-year-old woman with history of multiple sclerosis, sarcoidosis, chronic back pain as well as chronic pain was on the pain pump and feels she is having worsening pain in the lower extremities with numbness tingling and she feels her pump is ineffective. She notified the nurse that she did not receive her pain medication overnight while in the ED but according to the nurse to document that she did receive the pain medication. Patient states that she was on numerous medication for multiple sclerosis and they are ineffective. She is on infliximab every 6 weeks for her sarcoidosis and the last dose was August 04, 2023 Worsening of subjective pain: I feel more functional and having pain seeking behavior. History of multiple sclerosis History of sarcoidosis Chronic pain and has a pain pump Plan: Currently the patient is on steroids 500 mg every hours that was started by the ED team for concern of MS exacerbation. I change it to every 12 hours and will have it stopped by tomorrow A.M.. She also received 250 mg once in the ED. Currently she feels this is helping. She is on multiple pain medication oxycodone, Dilaudid, She is on baclofen 10 mg 3 times daily as needed Recommend MRI of spinal imaging and brain as outpatient when she follows-up with Viky (Dr. No[facility] to assess if truly any new lesions. Anesthesiology is consulted for pain pump. Consulted PT and OT Will defer the rest of the medical management to primary and other specialist Plan discussed with the patient, primary team and her nurse. There is no further neurological work-up. By tomorrow she is clear for discharge from neurological perspective. Dr. Hirsch will resume neurology service tomorrow A.M. if needed. Time with Patient: Less than 30
[2023-09-08 17:23] LABS: Glucose,Whole Blood 152 mg/dL (70-110)
[2023-09-08 20:06] LABS: Glucose,Whole Blood 185 mg/dL (70-110)
[2023-09-09 06:31] LABS: Glucose,Whole Blood 185 mg/dL (70-110)
[2023-09-09 08:01] VITALS: BP 123/78; PULSE 62; TEMP 98.4
[2023-09-09] MEDS ORDERED: methocarbamoL 500 MG TAB PO SCH (09:00)
[2023-09-09 10:11] LABS: Basophils # (A) 0.01 X 10*3/uL (0.00-0.10); Basophils % (A) 0.1 %; Eosinophils # (A) 0 X 10*3/uL (0.04-0.35); Eosinophils % (A) 0 %; HCT 32.6 % (37.2-46.3); HGB 9.9 g/dL (12.0-15.0); Lymphocytes # (A) 1.09 X 10*3/uL (0.90-5.00); Lymphocytes % (A) 10.7 %; MCH 26.4 pg (27.0-32.0); MCHC 30.4 g/dL (32.0-37.0); MCV 86.9 FL (80.0-97.0); Mean Platelet Volume 10.7 FL (9.5-12.2); NRBC Per 100 WBC 0 X 10*3/uL (0.00-0.01); Neutrophils % (A) 87.8 %; Platelet Count 248 X 10*3/uL (140-440); RBC 3.75 X 10*6/uL (4.10-5.20); RDW 16.3 % (11.5-14.5); WBC 10.14 X 10*3/uL (4.50-10.00)
[2023-09-09 10:19] LABS: ALT 11 U/L (8-44); AST 12 U/L (13-35); Albumin 3.7 g/dL (3.8-4.9); Albumin/Globulin Ratio 1.76 Ratio (1.60-3.17); Alkaline Phosphatase 62 U/L (41-126); BUN/Creat Ratio 21.89 Ratio (12.00-20.00); Blood Urea Nitrogen 19.7 mg/dL (9.0-27.0); Calcium 8.6 mg/dL (8.7-10.3); Chloride 110 mmol/L (96-109); Globulin 2.1 g/dL (1.6-3.3); Glucose 175 mg/dL (70-110); Potassium 4.5 mmol/L (3.5-5.5); Sodium 143 mmol/L (135-145); Total Bilirubin 0.3 mg/dL (0.3-1.2); Total Protein 5.8 g/dL (6.2-8.2)
--- NOTE | 2023-09-09 17:04 | P.DS ---
Providers Date of admission: 09/07/23 14:54 Expected date of discharge: 09/09/23 Attending physician: Graciela Ritchie MD Consults: 09/06/23 19:11 Consult Physician Routine Consulting Provider: Elier Ceballos Consult Reason/Comments: MS Do you want consulting provider notified?: Yes Primary care physician: [facility] Hospital Course: Intractable back pain superimposed on chronic back pain with narcotic dependence Sarcoidosis exacerbation Hypothyroidism Diabetes type 2 GERD without esophagitis Anxiety Hospital course: This is a 53-year-old white female with chronic low back pain on morphine pump who is being admitted to the hospital with intractable low back pain. She ran out of her morphine at home. She describes the pain as moderate to severe radiating to her lower extremities. She denies chest pain, no shortness of breath, no hematuria dysuria hematemesis hematochezia. No diplopia. She was seen in consultation with neurology and started on high-dose steroids for 48 hours. She is also seen by pain management who gave her an additional bolus of morphine through her intrathecal pain pump. With these interventions, patient's pain did improve back to her baseline and she was discharged home with instructions to follow-up with her neurologist for adjustment to her pain pump settings as required for pain control. I spent 32 minutes coordinating this discharge Gen: In NAD, non-toxic HEENT: normocephalic, atraumatic, hearing acuity is intant, mucous membranes moist CVS: perfusing all extremities well, no pitting edema, Respiratory: symmetric chest expansion, no accessory muscle use, GI: soft, NTTP, ND, : no suprapubic tenderness, no CVA tenderness MSK/Derm: no rashes, cyanosis Neuro: CN II-XII intact, no motor weakness, Psych: cooperative, euthymic mood, judgment and insight is intact Patient Condition at Discharge: Good Plan - Discharge Summary New Discharge Prescriptions: Continue DULoxetine HCL [Cymbalta] 60 mg PO DAILY metFORMIN HCL [Glucophage] 500 mg PO BID #60 tab rOPINIRole HCL [Requip] 2 mg PO TID Levothyroxine Sodium [Synthroid] 112 mcg PO DAILY Baclofen 10 mg PO TID Ondansetron Odt [Zofran ODT] 8 mg PO DAILY PRN PRN Reason: Nausea Gabapentin [Neurontin] 100 mg PO TID methocarbamoL [Robaxin] 500 mg PO TID Pantoprazole Sodium [Protonix] 40 mg PO BID SUMAtriptan succinate 6 mg SQ BID PRN PRN Reason: Migraine Headache Infliximab-Dyyb [Inflectra] 1 dose IV Q42D oxyCODONE-APAP 10-325MG [Percocet 10-325 mg] 1 tab PO BID PRN PRN Reason: Pain ALPRAZolam [Xanax] 0.25 mg PO BID Albuterol Inhaler [Ventolin Hfa Inhaler] 2 puff INHALATION RT-Q6H PRN PRN Reason: Shortness Of Breath Albuterol Nebulized [Ventolin Nebulized] 2.5 mg INHALATION RT-QID PRN PRN Reason: Shortness Of Breath Patient Own Pump 0 bag Discharge Medication List DULoxetine HCL [Cymbalta] 60 mg PO DAILY 01/10/17 [History] metFORMIN HCL [Glucophage] 500 mg PO BID #60 tab 02/10/18 [Rx] Levothyroxine Sodium [Synthroid] 112 mcg PO DAILY 12/05/18 [History] rOPINIRole HCL [Requip] 2 mg PO TID 12/05/18 [History] Baclofen 10 mg PO TID 04/29/19 [History] Ondansetron Odt [Zofran ODT] 8 mg PO DAILY PRN 11/13/19 [History] Gabapentin [Neurontin] 100 mg PO TID 05/10/20 [History] Pantoprazole Sodium [Protonix] 40 mg PO BID 05/10/20 [History] SUMAtriptan succinate 6 mg SQ BID PRN 05/10/20 [History] methocarbamoL [Robaxin] 500 mg PO TID 05/10/20 [History] Infliximab-Dyyb [Inflectra] 1 dose IV Q42D 05/23/20 [History] oxyCODONE-APAP 10-325MG [Percocet 10-325 mg] 1 tab PO BID PRN 04/17/22 [History] ALPRAZolam [Xanax] 0.25 mg PO BID 11/05/22 [History] Albuterol Inhaler [Ventolin Hfa Inhaler] 2 puff INHALATION RT-Q6H PRN 11/05/22 [History] Albuterol Nebulized [Ventolin Nebulized] 2.5 mg INHALATION RT-QID PRN 07/12/23 [History] Patient Own Pump 0 bag 09/06/23 [History] Follow up Appointment(s)/Referral(s): Abdi Taylor MD [Primary Care Provider] - 1-2 days Maura No MD [Medical Doctor] - 1 Week Discharge Disposition: HOME SELF-CARE
== END 2023-09-09 11:15 | disposition home or self-care (01) | DRG 60 ==
LOC: EC 18:11 → 6NMEDSUR 19:13 → OBSVTOIN 09-07 14:54
PROVIDERS: ADMIT Internal Medicine; ATTEND Internal Medicine
DX: G35 Multiple sclerosis (principal); E11.42 Type 2 diabetes mellitus with diabetic polyneuropathy; E11.43 Type 2 diabetes mellitus with diabetic autonomic (poly)neuropathy; D86.9 Sarcoidosis, unspecified; J45.909 Unspecified asthma, uncomplicated; E03.9 Hypothyroidism, unspecified; K31.84 Gastroparesis; G47.30 Sleep apnea, unspecified; M54.50 Low back pain, unspecified; G43.909 Migraine, unspecified, not intractable, without status migrainosus; F41.9 Anxiety disorder, unspecified; G89.29 Other chronic pain; K21.9 Gastro-esophageal reflux disease without esophagitis; Z79.890 Hormone replacement therapy; Z79.899 Other long term (current) drug therapy; Z79.891 Long term (current) use of opiate analgesic; Z97.8 Presence of other specified devices; Z79.84 Long term (current) use of oral hypoglycemic drugs; Z91.040 Latex allergy status; Z91.048 Other nonmedicinal substance allergy status; Z88.5 Allergy status to narcotic agent; Z88.8 Allergy status to other drugs, medicaments and biological substances
CPT/HCPCS: 80053; 83036; 83735; 84100; 85025; 94640; 96365; 96375; 99285

== ENCOUNTER 2023-10-05 20:46 | Emergency (ER) | payer MEDICARE, OTHER ==
[2023-10-05 20:50] VITALS: RESP 18; TEMP 98.1
[2023-10-05] MEDS: SODIUM CHLORIDE 0.9% 500 ML 500 ML IV STA (21:14)
[2023-10-05] MEDS: diphenhydrAMINE 50 MG/ML 1 ML VIAL IVP STA (21:15)
[2023-10-05] MEDS: methylPREDNISolone SOD SUCCI 125 MG/2 ML VIAL IV STA (21:18)
[2023-10-05] MEDS: KETOROLAC 15 MG/ML 1 ML VIAL IVP STA (21:20)
[2023-10-05] MEDS: ONDANSETRON 4 MG/2 ML VIAL IVP STA (22:33)
[2023-10-05] MEDS: MORPHINE SULFATE 4 MG/ML SYRINGE IV STA (22:34)
--- NOTE | 2023-10-05 23:43 | ED ---
Headache HPI - General Chief Complaint: Headache Stated Complaint: headache joint pain Time Seen by Provider: 10/05/23 20:54 Mode of arrival: ambulatory Limitations: no limitations - History of Present Illness Initial Comments: This patient is a 53-year-old woman with history of previous headaches, who presents with worsening of diffuse headache. She states she is also feeling a little off balance or unsteady. Patient denies any inciting trauma. No fever or chills. No neck stiffness patient denies neurologic symptoms. Denies neurologic symptoms MD Complaint: headache Onset/Timin -: days(s) Onset Description: gradual Location: diffuse Severity: severe Quality: aching Consistency: constant Improves With: nothing Worsens With: none Context: occurred at rest Associated Symptoms: other (Feeling unsteady) Treatments Prior to Arrival: none - Related Data Home Medications Medication Instructions Recorded Confirmed DULoxetine HCL [Cymbalta] 60 mg PO DAILY 01/10/17 09/06/23 Levothyroxine Sodium [Synthroid] 112 mcg PO DAILY 12/05/18 09/06/23 rOPINIRole HCL [Requip] 2 mg PO TID 12/05/18 09/06/23 Baclofen 10 mg PO TID 04/29/19 09/06/23 Ondansetron Odt [Zofran ODT] 8 mg PO DAILY PRN 11/13/19 09/06/23 Gabapentin [Neurontin] 100 mg PO TID 05/10/20 09/06/23 Pantoprazole Sodium [Protonix] 40 mg PO BID 05/10/20 09/06/23 SUMAtriptan succinate 6 mg SQ BID PRN 05/10/20 09/06/23 methocarbamoL [Robaxin] 500 mg PO TID 05/10/20 09/06/23 Infliximab-Dyyb [Inflectra] 1 dose IV Q42D 05/23/20 09/06/23 oxyCODONE-APAP 10-325MG [Percocet 1 tab PO BID PRN 04/17/22 09/06/23 10-325 mg] ALPRAZolam [Xanax] 0.25 mg PO BID 11/05/22 09/06/23 Albuterol Inhaler [Ventolin Hfa 2 puff INHALATION RT-Q6H PRN 11/05/22 09/06/23 Inhaler] Albuterol Nebulized [Ventolin 2.5 mg INHALATION RT-QID PRN 07/12/23 09/06/23 Nebulized] Patient Own Pump 0 bag 09/06/23 Previous Rx's Medication Instructions Recorded metFORMIN HCL [Glucophage] 500 mg PO BID #60 tab 02/10/18 Allergies Allergy/AdvReac Type Severity Reaction Status Date / Time adhesive Allergy Severe Rash/Hives Verified 10/21/23 09:32 adhesive tape Allergy Severe Rash/Hives Verified 10/21/23 09:32 fentanyl Allergy Severe Rash/Hives Verified 10/21/23 09:32 from patch only latex Allergy Severe Rash/Hives Verified 10/21/23 09:32 metoclopramide [From Reglan] Allergy dystonia Verified 10/21/23 09:32 from IV Reglan prochlorperazine Allergy dystonia Verified 10/21/23 09:32 [From Compazine] Review of Systems ROS Statement: Those systems with pertinent positive or pertinent negative responses have been documented in the HPI. ROS Other: All systems not noted in ROS Statement are negative. Constitutional: Reports: weakness. Denies: fever, chills Eyes: Denies: vision change ENT: Denies: epistaxis Respiratory: Denies: dyspnea Cardiovascular: Denies: chest pain, syncope Gastrointestinal: Denies: abdominal pain, nausea, vomiting Genitourinary: Denies: dysuria, hematuria Musculoskeletal: Denies: back pain Skin: Denies: rash Neurological: Reports: headache, weakness. Denies: numbness, paresthesias, confusion Past Medical History Past Medical History: Asthma, Diabetes Mellitus, GERD/Reflux, Musculoskeletal Disorder, Neurologic Disorder, Sleep Apnea/CPAP/BIPAP, Thyroid Disorder Additional Past Medical History / Comment(s): MS, back pain, DDD, optic neuritis, Gastroparesis., C-Diff (June 2018) leukopenia (sores in mouth) migraines, sleep apnea due to M.S. (no machine), sarcoidosis, cyst in stomach. , hopitalized 10/04/19 after lumbar puncture because heart rate dropped, hospitalized 10/10/19 for headache (post l.p.), states allergy to all adhesive and needs benadryl IV 50mg prior to using tape or tegaderm etc. History of Any Multi-Drug Resistant Organisms: C-DIFF Date of last positivie culture/infection: 2018 MDRO Source:: stool Past Surgical History: Bladder Surgery, Breast Surgery, Hernia Repair, Hysterectomy, Orthopedic Surgery, Tubal Ligation Additional Past Surgical History / Comment(s): rhinoplasty, bladder suspension, breast sx, morphine pump, RT KNEE SCOPE, TUMMY TUCK, Spinal cord stimulator inserted and removed. port august 2019, gastroparesis botox and EGD 11/06/2019, breast implants, gastric surgery (g-poem) 05/05/20, Stent placed on kidney, hernia repair X2 Past Anesthesia/Blood Transfusion Reactions: Motion Sickness, Postoperative Nausea & Vomiting (PONV) Past Psychological History: No Psychological Hx Reported Smoking Status: Never smoker Past Alcohol Use History: Occasional Past Drug Use History: None Reported - Past Family History Father History Unknown: Yes Family Medical History: No Reported History Additional Family Medical History / Comment(s): . Mother History Unknown: Yes Family Medical History: No Reported History Additional Family Medical History / Comment(s): NO FAMILY HISTORY General Exam Limitations: no limitations General appearance: alert, in no apparent distress Head exam: Present: atraumatic, normocephalic Eye exam: Present: normal appearance, PERRL, EOMI. Absent: scleral icterus, conjunctival injection ENT exam: Present: normal oropharynx Neck exam: Present: normal inspection, full ROM. Absent: meningismus Respiratory exam: Present: normal lung sounds bilaterally. Absent: respiratory distress, wheezes, rales, rhonchi, stridor Cardiovascular Exam: Present: regular rate, normal rhythm, normal heart sounds GI/Abdominal exam: Present: soft. Absent: distended, tenderness Back exam: Present: normal inspection. Absent: vertebral tenderness Neurological exam: Present: alert, oriented X3, CN II-XII intact. Absent: motor sensory deficit Skin exam: Present: warm, dry, intact, normal color. Absent: rash Course Vital Signs 10/05/23 10/05/23 10/05/23 20:47 21:16 22:31 Temperature 98.1 F Pulse Rate 75 66 72 Respiratory 18 18 18 Rate Blood Pressure 165/103 137/87 143/93 O2 Sat by Pulse 100 100 99 Oximetry 10/06/23 00:26 Temperature Pulse Rate 52 L Respiratory 18 Rate Blood Pressure 117/75 O2 Sat by Pulse 96 Oximetry Medical Decision Making - Medical Decision Making Patient is a 53-year-old woman who is here with headache and feeling unsteady the patient states headache is similar to usual character. For this reason she had CT scan is held The patient is given medication and is feeling better and will continue as outpatient. Was pt. sent in by a medical professional or institution (, [facility], [facility], urgent care, hospital, or alf...) When possible be specific @ -[No] Did you speak to anyone other than the patient for history (EMS, parent, family, police, friend...)? What history was obtained from this source @ -[No] Did you review nursing and triage notes (agree or disagree)? Why? @ -[I reviewed and agree with nursing and triage notes] Were old charts reviewed (outside hosp., previous admission, EMS record, old EKG, old radiological studies, urgent care reports/EKG's, alf records)? Report findings @ -[No old charts were reviewed] Differential Diagnosis (chest pain, altered mental status, abdominal pain women, abdominal pain men, vaginal bleeding, weakness, fever, dyspnea, syncope, headache, dizziness, GI bleed, back pain, seizure, CVA, palpatations, mental health, musculoskeletal)? @ -[Differential Headache: Migraine, tension, cluster, carbon monoxide, central venous thrombosis, pension karma temporal arteritis, acute closure glaucoma, intercranial hemorrhage, mastoiditis, sinusitis, head injury, this is not meant to be an all-inclusive list. EKG interpreted by me (3pts min.). @ -[As above] X-rays interpreted by me (1pt min.). @ -[None done] CT interpreted by me (1pt min.). @ -[ U/S interpreted by me (1pt. min.). @ -[None done] What testing was considered but not performed or refused? (CT, X-rays, U/S, labs)? Why? @ -CT scan considered but patient states similar to previous headaches. What meds were considered but not given or refused? Why? @ -[None] Did you discuss the management of the patient with other professionals (professionals i.e. [facility] Garza, [facility]SULTANT, lab, RT, psych nurse, social security specialist, technical photographer, teacher, employee service officer, pillowcase folder)? Give summary @ -[No] Was smoking cessation discussed for >3mins.? @ -[No] Was critical care preformed (if so, how long)? @ -[No] Were there social determinants of health that impacted care today? How? (Homelessness, low income, unemployed, alcoholism, drug addiction, transportation, low edu. Level, literacy, decrease access to med. care, senior living, rehab)? @ -[No] Was there de-escalation of care discussed even if they declined (Discuss DNR or withdrawal of care, Hospice)? DNR status @ -[No] What co-morbidities impacted this encounter? (DM, HTN, Smoking, COPD, CAD, Cancer, CVA, ARF, Chemo, Hep., AIDS, mental health diagnosis, sleep apnea, morbid obesity)? @ -[History of headaches, MS Was patient admitted / discharged? Hospital course, mention meds given and route, prescriptions, significant lab abnormalities, going to OR and other pertinent info. @ -[See above Undiagnosed new problem with uncertain prognosis? @ -[No] Drug Therapy requiring intensive monitoring for toxicity (Heparin, Nitro, Insulin, Cardizem)? @ -[No] Were any procedures done? @ -[No] Diagnosis/symptom? @ -[Acute cephalgia Acute, or Chronic, or Acute on Chronic? @ -[Acute Uncomplicated (without systemic symptoms) or Complicated (systemic symptoms)? @ -[Uncomplicated Side effects of treatment? @ -[No] Exacerbation, Progression, or Severe Exacerbation? @ -[No] Poses a threat to life or bodily function? How? (Chest pain, [place], [place], pneumonia, PE, COPD, DKA, ARF, appy, cholecystitis, CVA, Diverticulitis, Homicidal, Suicidal, threat to staff... and all critical care pts) @ -[No] Disposition Clinical Impression: Migraine Disposition: HOME SELF-CARE Condition: Good Instructions (If sedation given, give patient instructions): Acute Headache (ED) Is patient prescribed a controlled substance at d/c from ED?: No Referrals: Abdi Taylor MD [Primary Care Provider] - 1-2 days
[2023-10-06 00:26] VITALS: BP 117/75; PULSE 52
[2023-10-06] MEDS: SUMAtriptan succinate 6 MG/0.5 ML VIAL SQ STA (00:28)
== END 2023-10-06 00:40 | disposition home or self-care (01) ==
LOC: EC 20:46
DX: G43.909 Migraine, unspecified, not intractable, without status migrainosus (principal); Z88.5 Allergy status to narcotic agent; Z91.040 Latex allergy status; Z88.8 Allergy status to other drugs, medicaments and biological substances; Z91.09 Other allergy status, other than to drugs and biological substances
CPT/HCPCS: 99283; 96374; 96375 ×4; 96361; J2270; J1200; J2405; J1885; J2919

== ENCOUNTER 2023-10-11 14:35 | Emergency (ER) | payer MEDICARE, OTHER ==
[2023-10-11 14:42] VITALS: RESP 16
--- NOTE | 2023-10-11 15:20 | ED ---
Nausea/Vomiting/Diarrhea HPI - General Source: patient, RN notes reviewed Mode of arrival: ambulatory Limitations: no limitations <Jae Villegas - Last Filed: 10/11/23 15:18> - General Source: patient, RN notes reviewed, old records reviewed Mode of arrival: ambulatory Limitations: no limitations - History of Present Illness MD complaint: nausea, vomiting, diarrhea, abdominal pain -: days(s) Associated Abdominal Pain: Yes Location: diffuse Radiation: none Severity: mild, moderate, severe Quality: crushing, sharp Consistency: intermittent Improves with: none Worsens with: none <Jose Chacon - Last Filed: 10/23/23 02:03> - General Chief complaint: Nausea/Vomiting/Diarrhea Stated complaint: vomitting, migraine, cancer PT Time Seen by Provider: 10/11/23 14:54 - History of Present Illness Initial comments: Quick note 53-year-old female well-known emergency room presents emergency room chief complaint nausea vomiting headache shortness of breath. Patient has multitude of symptoms states that she was just here for similar reason. Patient states she has a port and prefers her port to be accessed for medication use. (Jae Villegas) This is a 53-year-old female well-known to our ER for nausea vomiting headache shortness of breath not feeling well weakness (Jose Chacon) - Related Data Home Medications Medication Instructions Recorded Confirmed DULoxetine HCL [Cymbalta] 60 mg PO DAILY 01/10/17 09/06/23 Levothyroxine Sodium [Synthroid] 112 mcg PO DAILY 12/05/18 09/06/23 rOPINIRole HCL [Requip] 2 mg PO TID 12/05/18 09/06/23 Baclofen 10 mg PO TID 04/29/19 09/06/23 Ondansetron Odt [Zofran ODT] 8 mg PO DAILY PRN 11/13/19 09/06/23 Gabapentin [Neurontin] 100 mg PO TID 05/10/20 09/06/23 Pantoprazole Sodium [Protonix] 40 mg PO BID 05/10/20 09/06/23 SUMAtriptan succinate 6 mg SQ BID PRN 05/10/20 09/06/23 methocarbamoL [Robaxin] 500 mg PO TID 05/10/20 09/06/23 Infliximab-Dyyb [Inflectra] 1 dose IV Q42D 05/23/20 09/06/23 oxyCODONE-APAP 10-325MG [Percocet 1 tab PO BID PRN 04/17/22 09/06/23 10-325 mg] ALPRAZolam [Xanax] 0.25 mg PO BID 11/05/22 09/06/23 Albuterol Inhaler [Ventolin Hfa 2 puff INHALATION RT-Q6H PRN 11/05/22 09/06/23 Inhaler] Albuterol Nebulized [Ventolin 2.5 mg INHALATION RT-QID PRN 07/12/23 09/06/23 Nebulized] Patient Own Pump 0 bag 09/06/23 Previous Rx's Medication Instructions Recorded metFORMIN HCL [Glucophage] 500 mg PO BID #60 tab 02/10/18 Allergies Allergy/AdvReac Type Severity Reaction Status Date / Time adhesive Allergy Severe Rash/Hives Verified 10/21/23 09:32 adhesive tape Allergy Severe Rash/Hives Verified 10/21/23 09:32 fentanyl Allergy Severe Rash/Hives Verified 10/21/23 09:32 from patch only latex Allergy Severe Rash/Hives Verified 10/21/23 09:32 metoclopramide [From Reglan] Allergy dystonia Verified 10/21/23 09:32 from IV Reglan prochlorperazine Allergy dystonia Verified 10/21/23 09:32 [From Compazine] Review of Systems ROS Other: All systems not noted in ROS Statement are negative. <Jae Villegas - Last Filed: 10/11/23 15:18> ROS Other: All systems not noted in ROS Statement are negative. <Jose Chacon - Last Filed: 10/23/23 02:03> ROS Statement: Those systems with pertinent positive or pertinent negative responses have been documented in the HPI. Past Medical History Past Medical History: Asthma, Diabetes Mellitus, GERD/Reflux, Musculoskeletal Disorder, Neurologic Disorder, Sleep Apnea/CPAP/BIPAP, Thyroid Disorder Additional Past Medical History / Comment(s): MS, back pain, DDD, optic neuritis, Gastroparesis., C-Diff (June 2018) leukopenia (sores in mouth) migraines, sleep apnea due to M.S. (no machine), sarcoidosis, cyst in stomach. , hopitalized 10/04/19 after lumbar puncture because heart rate dropped, hospi talized 10/10/19 for headache (post l.p.), states allergy to all adhesive and needs benadryl IV 50mg prior to using tape or tegaderm etc. History of Any Multi-Drug Resistant Organisms: C-DIFF Date of last positivie culture/infection: 2018 MDRO Source:: stool Past Surgical History: Bladder Surgery, Breast Surgery, Hernia Repair, Hysterectomy, Orthopedic Surgery, Tubal Ligation Additional Past Surgical History / Comment(s): rhinoplasty, bladder suspension, breast sx, morphine pump, RT KNEE SCOPE, TUMMY TUCK, Spinal cord stimulator inserted and removed. port august 2019, gastroparesis botox and EGD 11/06/2019, breast implants, gastric surgery (g-poem) 05/05/20, Stent placed on kidney, hernia repair X2 Past Anesthesia/Blood Transfusion Reactions: Motion Sickness, Postoperative Nausea & Vomiting (PONV) Past Psychological History: No Psychological Hx Reported Smoking Status: Never smoker Past Alcohol Use History: Occasional Past Drug Use History: None Reported - Past Family History Father History Unknown: Yes Family Medical History: No Reported History Additional Family Medical History / Comment(s): . Mother History Unknown: Yes Family Medical History: No Reported History Additional Family Medical History / Comment(s): NO FAMILY HISTORY <Jae Villegas M - Last Filed: 10/11/23 15:18> General Exam Limitations: no limitations <Jae Villegas M - Last Filed: 10/11/23 15:18> General appearance: alert, in no apparent distress Head exam: Present: atraumatic, normocephalic, normal inspection Eye exam: Present: normal appearance, PERRL, EOMI. Absent: scleral icterus, conjunctival injection, periorbital swelling ENT exam: Present: normal exam, mucous membranes moist Neck exam: Present: normal inspection. Absent: tenderness, meningismus, lymphadenopathy Respiratory exam: Present: normal lung sounds bilaterally. Absent: respiratory distress, wheezes, rales, rhonchi, stridor Cardiovascular Exam: Present: regular rate, normal rhythm, normal heart sounds. Absent: systolic murmur, diastolic murmur, rubs, gallop, clicks GI/Abdominal exam: Present: soft, normal bowel sounds. Absent: distended, tenderness, guarding, rebound, rigid Extremities exam: Present: normal inspection, full ROM, normal capillary refill. Absent: tenderness, pedal edema, joint swelling, calf tenderness Back exam: Present: normal inspection Neurological exam: Present: alert, oriented X3, CN II-XII intact Psychiatric exam: Present: normal affect, normal mood Skin exam: Present: warm, dry, intact, normal color. Absent: rash <Jose Chacon - Last Filed: 10/23/23 02:03> - General Exam Comments Initial Comments: Visual Physical Exam Vital signs reviewed General: Well-appearing, nontoxic, no acute distress. Head: Normocephalic, atraumatic Eyes: PERRLA, EOMI ENT: Airway patent Chest: Nonlabored breathing Skin: No visual rash, normal skin tone Neuro: Alert and oriented 3 Musculoskeletal: No gross abnormalities (Jae Villegas) Course <Jose Chacon Filed: 10/23/23 02:03> Vital Signs 10/11/23 10/11/23 14:40 21:56 Temperature 98.1 F 98.0 F Pulse Rate 118 H 89 Respiratory 16 16 Rate Blood Pressure 164/99 125/84 O2 Sat by Pulse 97 97 Oximetry - Reevaluation(s) Reevaluation #1: Medical records reviewed (Jose Chacon) Reevaluation #2: Patient symptoms improved (Jose Chacon) Reevaluation #3: Patient informed of results and questions answered (Jose Chacon) Reevaluation #4: Was pt. sent in by a medical professional or institution (, PA, LINE HAUL OWNER OPERATOR, urgent care, hospital, or correction...) When possible be specific @ -no Did you speak to anyone other than the patient for history (EMS, parent, family, police, friend...)? What history was obtained from this source @ -no Did you review nursing and triage notes (agree or disagree)? Why? @ -agree Are old charts reviewed (outside hosp., previous admission, EMS record, old EKG, old radiological studies, urgent care reports/EKG's, correction records)? Report findings @ -yes Differential Diagnosis (chest pain, altered mental status, abdominal pain women, abdominal pain men, vaginal bleeding, weakness, fever, dyspnea, syncope, headache, dizziness, GI bleed, back pain, seizure, CVA, palpatations, mental health, musculoskeletal)? @ -prior EKG interpreted by me (3pts min.). @ -no X-rays interpreted by me (1pt min.). @ -yno CT interpreted by me (1pt min.). @ -no U/S interpreted by me (1pt. min.). @ -no What testing was considered but not performed or refused? (CT, X-rays, U/S, labs)? Why? @ -none What meds were considered but not given or refused? Why? @ -none Did you discuss the management of the patient with other professionals (professionals i.e. Dr., PA, LINE HAUL OWNER OPERATOR, lab, RT, psych nurse, manager social responsibility, keyliner, teacher, mail officer, rn case mgr)? Give summary @ -no Was smoking cessation discussed for >3mins.? @ -no Was critical care preformed (if so, how long)? @ -no Were there social determinants of health that impacted care today? How? (Homelessness, low income, unemployed, alcoholism, drug addiction, transportation, low edu. Level, literacy, decrease access to med. care, custodial, rehab)? @ -none Was there de-escalation of care discussed even if they declined (Discuss DNR or withdrawal of care, Hospice)? DNR status @ -no What co-morbidities impacted this encounter? (DM, HTN, Smoking, COPD, CAD, Ca ncer, CVA, ARF, Chemo, Hep., AIDS, mental health diagnosis, sleep apnea, morbid obesity)? @ -none Was patient admitted / discharged? Hospital course, mention meds given and route, prescriptions, significant lab abnormalities, going to OR and other pertinent info. @ - 53 female with nausea vomiting and abdominal pain with no significant symptoms here in the ER patient would like treatment and can be discharged home Discharge Undiagnosed new problem with uncertain prognosis? @ -no Drug Therapy requiring intensive monitoring for toxicity (Heparin, Nitro, Insulin, Cardizem)? @ -no Were any procedures done? @ -no Diagnosis/symptom? @ -Vomiting Acute, or Chronic, or Acute on Chronic? @ -Acute Uncomplicated (without systemic symptoms) or Complicated (systemic symptoms)? @ -Complicated Side effects of treatment? @ -no Exacerbation, Progression, or Severe Exacerbation? @ -exacerbation Poses a threat to life or bodily function? How? (Chest pain, USA, IA, pneumonia, PE, COPD, DKA, ARF, appy, cholecystitis, CVA, Diverticulitis, Homicidal, Suicidal, threat to staff... and all critical care pts) @ -no (Jose Chacon) Medical Decision Making <Jae Villegas - Last Filed: 10/11/23 15:18> - Lab Data Result diagrams: 10/11/23 17:53 10/11/23 17:53 <Jose Chacon - Last Filed: 10/23/23 02:03> - Medical Decision Making I completed the quick note portion of this chart signed Jae Villegas PA-C (Jae Villegas) 53 female with nausea vomiting and abdominal pain with no significant symptoms here in the ER patient would like treatment and can be discharged home (Jose Chacon) - Lab Data Lab Results 10/11/23 10/11/23 10/11/23 Range/Units 17:53 17:53 17:53 WBC 5.7 (3.8-10.6) k/uL RBC 3.97 (3.80-5.40) m/uL Hgb 10.9 L (11.4-16.0) gm/dL Hct 33.8 L (34.0-46.0) % MCV 85.3 (80.0-100.0) fL MCH 27.4 (25.0-35.0) pg MCHC 32.1 (31.0-37.0) g/dL RDW 15.5 (11.5-15.5) % Plt Count 228 (150-450) k/uL MPV 7.4 Neutrophils % 43 % Lymphocytes % 46 % Monocytes % 6 % Eosinophils % 2 % Basophils % 1 % Neutrophils # 2.5 (1.3-7.7) k/uL Lymphocytes # 2.6 (1.0-4.8) k/uL Monocytes # 0.3 (0-1.0) k/uL Eosinophils # 0.1 (0-0.7) k/uL Basophils # 0.0 (0-0.2) k/uL Sodium 140 (137-145) mmol/L Potassium 3.4 L (3.5-5.1) mmol/L Chloride 111 H (98-107) mmol/L Carbon Dioxide 25 (22-30) mmol/L Anion Gap 4 mmol/L BUN 12 (7-17) mg/dL Creatinine 0.62 (0.52-1.04) mg/dL Est GFR (CKD-EPI)AfAm >90 (>60 ml/min/1.73 sqM) Est GFR (CKD-EPI)NonAf >90 (>60 ml/min/1.73 sqM) Glucose 85 (74-99) mg/dL Calcium 7.1 L (8.4-10.2) mg/dL Phosphorus 3.1 (2.5-4.5) mg/dL Magnesium 1.5 L (1.6-2.3) mg/dL Total Bilirubin 0.3 (0.2-1.3) mg/dL AST 25 (14-36) U/L ALT 14 (4-34) U/L Alkaline Phosphatase 62 (38-126) U/L Total Protein 5.3 L (6.3-8.2) g/dL Albumin 2.9 L (3.5-5.0) g/dL Lipase 19 L (23-300) U/L Urine Color Yellow Urine Appearance Clear (Clear) Urine pH 7.0 (5.0-8.0) Ur Specific [place] 1.025 (1.001-1.035) Urine Protein Trace H (Negative) Urine Glucose (UA) Negative (Negative) Urine Ketones Negative (Negative) Urine Blood Negative (Negative) Urine Nitrite Negative (Negative) Urine Bilirubin Negative (Negative) Urine Urobilinogen <2.0 (<2.0) mg/dL Ur Leukocyte Esterase Moderate H (Negative) Urine RBC 2 (0-5) /hpf Urine WBC 3 (0-5) /hpf Ur Squamous Epith Cells 3 (0-4) /hpf Hyaline Casts 8 H (0-2) /lpf Urine Mucus Few H (None) /hpf Disposition <Jae Villegas - Last Filed: 10/11/23 15:18> Is patient prescribed a controlled substance at d/c from ED?: No Time of Disposition: 21:45 <Jose Chacon - Last Filed: 10/23/23 02:03> Clinical Impression: Abdominal pain, Nausea & vomiting Disposition: HOME SELF-CARE Condition: Fair Instructions (If sedation given, give patient instructions): Acute Nausea and Vomiting (ED), Abdominal Pain (ED) Referrals: Abdi Taylor MD [Primary Care Provider] - 1-2 days
[2023-10-11] MEDS: diphenhydrAMINE 50 MG/ML 1 ML VIAL IVP STA (17:47)
[2023-10-11] MEDS: SODIUM CHLORIDE 0.9% 1,000 ML IV STA ×2 (17:47→21:19)
[2023-10-11] MEDS: PANTOPRAZOLE 40 MG/10 ML VIAL IV STA (17:48)
[2023-10-11] MEDS: HYDROmorphone 1 MG/ML 1 ML SYRINGE IVP STA ×2 (17:48→21:33)
[2023-10-11] MEDS: ONDANSETRON 4 MG/2 ML VIAL IVP STA (17:48)
[2023-10-11 18:12] LABS: Basophils % (A) 1 %; Eosinophils # (A) 0.1 k/uL (0-0.7); Eosinophils % (A) 2 %; HCT 33.8 % (34.0-46.0); HGB 10.9 gm/dL (11.4-16.0); Lymphocytes # (A) 2.6 k/uL (1.0-4.8); Lymphocytes % (A) 46 %; MCH 27.4 pg (25.0-35.0); MCHC 32.1 g/dL (31.0-37.0); MCV 85.3 fL (80.0-100.0); Mean Platelet Volume 7.4; Monocytes # (A) 0.3 k/uL (0-1.0); Monocytes % (A) 6 %; Neutrophils # (A) 2.5 k/uL (1.3-7.7); Neutrophils % (A) 43 %; Platelet Count 228 k/uL (150-450); RBC 3.97 m/uL (3.80-5.40); RDW 15.5 % (11.5-15.5); WBC 5.7 k/uL (3.8-10.6)
[2023-10-11 18:32] LABS: Appearance,Urine Clear (Clear); Bilirubin,Urine Negative (Negative); Blood,Urine Negative (Negative); Color,Urine Yellow; Glucose,Urine (UA) Negative (Negative); Hyaline Casts,Urine 8 /lpf (0-2); Ketones,Urine Negative (Negative); Leukocyte Esterase,Urine Moderate (Negative); Mucus,Urine Few /hpf; Nitrite,Urine Negative (Negative); Protein,Urine Trace (Negative); RBC,Urine 2 /hpf (0-5); Specific Gravity,Urine 1.025 (1.001-1.035); Squamous Epithelial Cell,Urine 3 /hpf (0-4); Urobilinogen,Urine <2.0 mg/dL (<2.0); WBC,Urine 3 /hpf (0-5)
[2023-10-11] MEDS: SODIUM CHLORIDE 0.9% 500 ML 500 ML IV STA (18:37)
[2023-10-11 21:14] LABS: ALT 14 U/L (4-34); AST 25 U/L (14-36); African American GFR (CKD) >90 (>60 ml/min/1.73 sqM); Albumin 2.9 g/dL (3.5-5.0); Alkaline Phosphatase 62 U/L (38-126); Anion Gap 4 mmol/L; Blood Urea Nitrogen 12 mg/dL (7-17); Calcium 7.1 mg/dL (8.4-10.2); Carbon Dioxide 25 mmol/L (22-30); Chloride 111 mmol/L (98-107); Glucose 85 mg/dL (74-99); Lipase 19 U/L (23-300); Magnesium 1.5 mg/dL (1.6-2.3); Non-African American GFR(CKD) >90 (>60 ml/min/1.73 sqM); Phosphorus 3.1 mg/dL (2.5-4.5); Potassium 3.4 mmol/L (3.5-5.1); Sodium 140 mmol/L (137-145); Total Bilirubin 0.3 mg/dL (0.2-1.3); Total Protein 5.3 g/dL (6.3-8.2)
[2023-10-11] MEDS: LORazepam 2 MG/ML INJ IV STA (21:35)
[2023-10-11] MEDS: MAGNESIUM OXIDE 400 MG TAB PO STA ×2 (21:36→21:37)
[2023-10-11 21:58] VITALS: BP 125/84; PULSE 89; TEMP 98
== END 2023-10-11 22:07 | disposition home or self-care (01) ==
LOC: EC 14:35
DX: R11.2 Nausea with vomiting, unspecified (principal); R10.9 Unspecified abdominal pain; Z91.040 Latex allergy status; Z88.6 Allergy status to analgesic agent; Z88.8 Allergy status to other drugs, medicaments and biological substances; Z91.09 Other allergy status, other than to drugs and biological substances
CPT/HCPCS: 36415; 80053; 83690; 83735; 84100; 85025; 81001; 99284; 96374; 96375 ×5; 96376; 96361; J2060; J1200; J2405; J1170; J1642; J2470

== ENCOUNTER 2023-10-21 09:12 | Emergency (ER) | payer MEDICARE, OTHER ==
--- NOTE | 2023-10-21 10:43 | ED ---
General Adult HPI - General Chief complaint: Extremity Problem,Nontraumatic Stated complaint: R leg issue Time Seen by Provider: 10/21/23 09:35 Source: patient, RN notes reviewed, old records reviewed Mode of arrival: wheelchair Limitations: no limitations - History of Present Illness Initial comments: 53-year-old female presenting for evaluation of right heel pain and swelling. Patient denies injury. Symptoms began over the past 24 hours. Patient denies chest pain or dyspnea. She has had urinary frequency as well as a secondary complaint. - Related Data Home Medications Medication Instructions Recorded Confirmed DULoxetine HCL [Cymbalta] 60 mg PO DAILY 01/10/17 09/06/23 Levothyroxine Sodium [Synthroid] 112 mcg PO DAILY 12/05/18 09/06/23 rOPINIRole HCL [Requip] 2 mg PO TID 12/05/18 09/06/23 Baclofen 10 mg PO TID 04/29/19 09/06/23 Ondansetron Odt [Zofran ODT] 8 mg PO DAILY PRN 11/13/19 09/06/23 Gabapentin [Neurontin] 100 mg PO TID 05/10/20 09/06/23 Pantoprazole Sodium [Protonix] 40 mg PO BID 05/10/20 09/06/23 SUMAtriptan succinate 6 mg SQ BID PRN 05/10/20 09/06/23 methocarbamoL [Robaxin] 500 mg PO TID 05/10/20 09/06/23 Infliximab-Dyyb [Inflectra] 1 dose IV Q42D 05/23/20 09/06/23 oxyCODONE-APAP 10-325MG [Percocet 1 tab PO BID PRN 04/17/22 09/06/23 10-325 mg] ALPRAZolam [Xanax] 0.25 mg PO BID 11/05/22 09/06/23 Albuterol Inhaler [Ventolin Hfa 2 puff INHALATION RT-Q6H PRN 11/05/22 09/06/23 Inhaler] Albuterol Nebulized [Ventolin 2.5 mg INHALATION RT-QID PRN 07/12/23 09/06/23 Nebulized] Patient Own Pump 0 bag 09/06/23 Previous Rx's Medication Instructions Recorded metFORMIN HCL [Glucophage] 500 mg PO BID #60 tab 02/10/18 Allergies Allergy/AdvReac Type Severity Reaction Status Date / Time adhesive Allergy Severe Rash/Hives Verified 10/21/23 09:32 adhesive tape Allergy Severe Rash/Hives Verified 10/21/23 09:32 fentanyl Allergy Severe Rash/Hives Verified 10/21/23 09:32 from patch only latex Allergy Severe Rash/Hives Verified 10/21/23 09:32 metoclopramide [From Reglan] Allergy dystonia Verified 10/21/23 09:32 from IV Reglan prochlorperazine Allergy dystonia Verified 10/21/23 09:32 [From Compazine] Review of Systems ROS Statement: Those systems with pertinent positive or pertinent negative responses have been documented in the HPI. ROS Other: All systems not noted in ROS Statement are negative. Past Medical History Past Medical History: Asthma, Diabetes Mellitus, GERD/Reflux, Musculoskeletal Disorder, Neurologic Disorder, Sleep Apnea/CPAP/BIPAP, Thyroid Disorder Additional Past Medical History / Comment(s): MS, back pain, DDD, optic neuritis, Gastroparesis., C-Diff (June 2018) leukopenia (sores in mouth) migraines, sleep apnea due to M.S. (no machine), sarcoidosis, cyst in stomach. , hopitalized 10/04/19 after lumbar puncture because heart rate dropped, hospitalized 10/10/19 for headache (post l.p.), states allergy to all adhesive and needs benadryl IV 50mg prior to using tape or tegaderm etc. History of Any Multi-Drug Resistant Organisms: C-DIFF Date of last positivie culture/infection: 2018 MDRO Source:: stool Past Surgical History: Bladder Surgery, Breast Surgery, Hernia Repair, Hysterectomy, Orthopedic Surgery, Tubal Ligation Additional Past Surgical History / Comment(s): rhinoplasty, bladder suspension, breast sx, morphine pump, RT KNEE SCOPE, TUMMY TUCK, Spinal cord stimulator inserted and removed. port august 2019, gastroparesis botox and EGD 11/06/2019, breast implants, gastric surgery (g-poem) 05/05/20, Stent placed on kidney, hernia repair X2 Past Anesthesia/Blood Transfusion Reactions: Motion Sickness, Postoperative Nausea & Vomiting (PONV) Past Psychological History: No Psychological Hx Reported Smoking Status: Never smoker Past Alcohol Use History: Occasional Past Drug Use History: None Reported - Past Family History Father History Unknown: Yes Family Medical History: No Reported History Additional Family Medical History / Comment(s): . Mother History Unknown: Yes Family Medical History: No Reported History Additional Family Medical History / Comment(s): NO FAMILY HISTORY General Exam Limitations: no limitations General appearance: alert, in no apparent distress Head exam: Present: atraumatic, normocephalic Eye exam: Present: normal appearance, PERRL ENT exam: Present: normal exam Neck exam: Present: normal inspection. Absent: tenderness, meningismus Respiratory exam: Present: normal lung sounds bilaterally. Absent: respiratory distress, wheezes Cardiovascular Exam: Present: regular rate, normal rhythm GI/Abdominal exam: Present: soft. Absent: distended, tenderness, guarding Extremities exam: Present: pedal edema, other (Tenderness in the right heel. No erythema. DP and PT pulses are symmetric and 2+) Neurological exam: Present: alert, oriented X3, CN II-XII intact. Absent: motor sensory deficit Psychiatric exam: Present: anxious Skin exam: Present: warm, dry, intact Course Vital Signs 10/21/23 10/21/23 09:31 11:10 Temperature 99.2 F 98.7 F Pulse Rate 81 76 Respiratory 18 18 Rate Blood Pressure 119/72 110/62 O2 Sat by Pulse 100 100 Oximetry Medical Decision Making - Medical Decision Making Was pt. sent in by a medical professional or institution (GILLIAN Garza, GRAIN ELEVATOR OPERATOR, urgent care, hospital, or custodial...) When possible be specific @ -No Did you speak to anyone other than the patient for history (EMS, parent, family, police, friend...)? What history was obtained from this source @ -No Did you review nursing and triage notes (agree or disagree)? Why? @ -I reviewed and agree with nursing and triage notes Were old charts reviewed (outside hosp., previous admission, EMS record, old EKG, old radiological studies, urgent care reports/EKG's, custodial records)? Report findings @ -No old charts were reviewed Differential Diagnosis: cellulitis, DVT, orthopedic injury EKG interpreted by me (3pts min.). @ -As above X-rays interpreted by me (1pt min.). @ -X-ray of the right foot shows soft tissue swelling without acute bony abnormality CT interpreted by me (1pt min.). @ -None done U/S interpreted by me (1pt. min.). @ -Ultrasound is negative for DVT What testing was considered but not performed or refused? (CT, X-rays, U/S, labs)? Why? @ -None What meds were considered but not given or refused? Why? @ -None Did you discuss the management of the patient with other professionals (professionals i.e. Dr., PA, GRAIN ELEVATOR OPERATOR, lab, RT, psych nurse, clinical social worker, legal billing coordinator, teacher, philanthropy officer, clinical case manager)? Give summary @ -No Was smoking cessation discussed for >3mins.? @ -No Was critical care preformed (if so, how long)? @ -No Were there social determinants of health that impacted care today? How? (Homelessness, low income, unemployed, alcoholism, drug addiction, transportation, low edu. Level, literacy, decrease access to med. care, shelter, rehab)? @ -No Was there de-escalation of care discussed even if they declined (Discuss DNR or withdrawal of care, Hospice)? DNR status @ -No What co-morbidities impacted this encounter? (DM, HTN, Smoking, COPD, CAD, Cancer, CVA, ARF, Chemo, Hep., AIDS, mental health diagnosis, sleep apnea, morbid obesity)? @ -None Was patient admitted / discharged? Hospital course, mention meds given and route, prescriptions, significant lab abnormalities, going to OR and other pertinent info. @53-year-old female with atraumatic right heel pain. There is some soft tissue swelling on exam. Distal pulses are intact. There is no erythema, no warmth. X-ray is negative for soft tissue gas or acute finding. Ultrasound negative for DVT. Additionally there was some complaint of urinary frequency. Urinalysis negative for infection. Patient stable for discharge with outpatient follow-up at this time. Undiagnosed new problem with uncertain prognosis? @ -No Drug Therapy requiring intensive monitoring for toxicity (Heparin, Nitro, Insulin, Cardizem)? @ -No Were any procedures done? @ -No Diagnosis/symptom? @ -Heel pain Acute, or Chronic, or Acute on Chronic? @ -Acute Uncomplicated (without systemic symptoms) or Complicated (systemic symptoms)? @ -Default Side effects of treatment? @ -No Exacerbation, Progression, or Severe Exacerbation? @ -No Poses a threat to life or bodily function? How? (Chest pain, USA, [place], pneumonia, PE, COPD, DKA, ARF, appy, cholecystitis, CVA, Diverticulitis, Homicidal, Suicidal, threat to staff... and all critical care pts) @ -No - Lab Data Lab Results 10/21/23 Range/Units 10:51 Urine Color Yellow Urine Appearance Clear (Clear) Urine pH 5.5 (5.0-8.0) Ur Specific [place] 1.033 (1.001-1.035) Urine Protein Trace H (Negative) Urine Glucose (UA) Negative (Negative) Urine Ketones Negative (Negative) Urine Blood Negative (Negative) Urine Nitrite Negative (Negative) Urine Bilirubin Negative (Negative) Urine Urobilinogen <2.0 (<2.0) mg/dL Ur Leukocyte Esterase Small H (Negative) Urine RBC 1 (0-5) /hpf Urine WBC 2 (0-5) /hpf Ur Squamous Epith Cells 1 (0-4) /hpf Hyaline Casts 4 H (0-2) /lpf Urine Mucus Many H (None) /hpf Disposition Clinical Impression: Heel pain Disposition: HOME SELF-CARE Condition: Fair Instructions (If sedation given, give patient instructions): Plantar Fasciitis (ED) Is patient prescribed a controlled substance at d/c from ED?: No Referrals: Abdi Taylor MD [Primary Care Provider] - 1-2 days Time of Disposition: 12:56
[2023-10-21 11:10] LABS: Appearance,Urine Clear (Clear); Bilirubin,Urine Negative (Negative); Blood,Urine Negative (Negative); Color,Urine Yellow; Glucose,Urine (UA) Negative (Negative); Hyaline Casts,Urine 4 /lpf (0-2); Ketones,Urine Negative (Negative); Leukocyte Esterase,Urine Small (Negative); Mucus,Urine Many /hpf; Nitrite,Urine Negative (Negative); PH, Urine 5.5 (5.0-8.0); Protein,Urine Trace (Negative); RBC,Urine 1 /hpf (0-5); Specific Gravity,Urine 1.033 (1.001-1.035); Squamous Epithelial Cell,Urine 1 /hpf (0-4); Urobilinogen,Urine <2.0 mg/dL (<2.0); WBC,Urine 2 /hpf (0-5)
[2023-10-21 11:11] VITALS: PULSE 76; TEMP 98.7
--- NOTE | 2023-10-21 11:36 | US ---
EXAMINATION TYPE: US venous doppler duplex LE RT DATE OF EXAM: 10/21/2023 9:44 AM COMPARISON: NONE CLINICAL INDICATION: Female, 53 years old with history of pain/swelling; Right heel pain. No redness . Pt states she has MS. Not on blood thinners. No injury. SIDE PERFORMED: Right TECHNIQUE: The lower extremity deep venous system is examined utilizing real time linear array sonog jocelyne with graded compression, doppler sonography and color-flow sonography. VESSELS IMAGED: Common Femoral Vein Deep Femoral Vein Greater Saphenous Vein * Femoral Vein Popliteal Vein Small Saphenous Vein * Proximal Calf Veins (* superficial vessels) Right Leg: Negative for DVT IMPRESSION: Grayscale, color doppler, spectral doppler imaging performed of the deep veins of the lo wer extremities. There is normal flow, compressibility, vascular waveforms.
--- NOTE | 2023-10-21 12:56 | XR ---
EXAMINATION TYPE: XR foot complete RT DATE OF EXAM: 10/21/2023 9:44 AM CLINICAL INDICATION:Female, 53 years old with history of pain/swelling; PH[facility] COMPARISON: None TECHNIQUE: XR foot complete RT examined in the AP, oblique, and lateral projections. FINDINGS: Soft tissue swelling without evidence of subcutaneous gas or erosion to suggest osteomyelitis. No sun dence of any acute osseous pathology. Multifocal degeneration changes throughout the joints of the foot with osteophyte formation and joint space narrowing. Calcaneal Achilles enthesophyte. Calcaneal plantar spurring is present. IMPRESSION: 1. No evidence of acute fracture. 2. Soft tissue swelling without evidence for osseous erosion. 3. Multifocal degeneration changes throughout the joints of the foot.
[2023-10-21] MEDS: HYDROmorphone 1 MG/ML 1 ML SYRINGE IM STA (12:59)
[2023-10-21 13:06] VITALS: BP 122/85; RESP 20
== END 2023-10-21 13:19 | disposition home or self-care (01) ==
LOC: EC 09:12
DX: M79.671 Pain in right foot (principal); M79.89 Other specified soft tissue disorders; Z91.040 Latex allergy status; Z88.8 Allergy status to other drugs, medicaments and biological substances; Z91.048 Other nonmedicinal substance allergy status
CPT/HCPCS: 81001; 96372; 99284

== ENCOUNTER 2023-12-30 21:41 | Emergency (ER) | payer MEDICARE, OTHER ==
[2023-12-30 21:57] VITALS: TEMP 97.5
[2023-12-31] MEDS: SODIUM CHLORIDE 0.9% 1,000 ML IV STA
[2023-12-31] MEDS: ONDANSETRON 4 MG/2 ML VIAL IVP STA ×2 (00:01→01:57)
[2023-12-31] MEDS: diphenhydrAMINE 50 MG/ML 1 ML VIAL IVP STA (00:03)
[2023-12-31] MEDS: HYDROmorphone 0.5 MG/0.5 ML SYRINGE IVP STA (00:05)
[2023-12-31 00:37] LABS: ALT 30 U/L (4-34); AST 20 U/L (14-36); African American GFR (CKD) >90 (>60 ml/min/1.73 sqM); Albumin 3.6 g/dL (3.5-5.0); Alkaline Phosphatase 70 U/L (38-126); Anion Gap 2 mmol/L; Blood Urea Nitrogen 25 mg/dL (7-17); Calcium 9.1 mg/dL (8.4-10.2); Carbon Dioxide 26 mmol/L (22-30); Chloride 111 mmol/L (98-107); Glucose 141 mg/dL (74-99); Lipase 23 U/L (23-300); Non-African American GFR(CKD) 87 (>60 ml/min/1.73 sqM); Potassium 3.9 mmol/L (3.5-5.1); Sodium 139 mmol/L (137-145); Total Bilirubin 0.3 mg/dL (0.2-1.3); Total Protein 5.9 g/dL (6.3-8.2)
[2023-12-31 00:49] LABS: Anisocytosis Slight; Basophils % (A) 0 %; Eosinophils # (A) 0.1 k/uL (0-0.7); Eosinophils % (A) 1 %; HCT 37.8 % (34.0-46.0); HGB 12.2 gm/dL (11.4-16.0); Lymphocytes # (A) 2.6 k/uL (1.0-4.8); Lymphocytes % (A) 29 %; MCH 28.4 pg (25.0-35.0); MCHC 32.4 g/dL (31.0-37.0); MCV 87.8 fL (80.0-100.0); Mean Platelet Volume 7.2; Monocytes # (A) 0.5 k/uL (0-1.0); Monocytes % (A) 6 %; Neutrophils # (A) 5.8 k/uL (1.3-7.7); Neutrophils % (A) 63 %; Platelet Count 227 k/uL (150-450); RBC 4.31 m/uL (3.80-5.40); RDW 16.2 % (11.5-15.5); WBC 9.2 k/uL (3.8-10.6)
[2023-12-31 02:02] VITALS: BP 130/98; PULSE 81; RESP 18
--- NOTE | 2023-12-31 02:39 | ED ---
Headache HPI - General Chief Complaint: Headache Stated Complaint: Migraine Time Seen by Provider: 12/30/23 23:18 Mode of arrival: ambulatory Limitations: no limitations - History of Present Illness Initial Comments: This patient is a 53-year-old woman with history of headaches who presents to have evaluation for headache that is not improving with her usual home treatments. She states it is not the worst headache of life. She has not noted associated fever, neck stiffness, neurologic symptoms. MD Complaint: headache -: days(s) Onset Description: gradual Location: diffuse Severity: moderate Quality: aching Consistency: constant Improves With: nothing Worsens With: light, noise Context: occurred at rest Associated Symptoms: nausea - Related Data Home Medications Medication Instructions Recorded Confirmed DULoxetine HCL [Cymbalta] 60 mg PO DAILY 01/10/17 09/06/23 Levothyroxine Sodium [Synthroid] 112 mcg PO DAILY 12/05/18 09/06/23 rOPINIRole HCL [Requip] 2 mg PO TID 12/05/18 09/06/23 Baclofen 10 mg PO TID 04/29/19 09/06/23 Ondansetron Odt [Zofran ODT] 8 mg PO DAILY PRN 11/13/19 09/06/23 Gabapentin [Neurontin] 100 mg PO TID 05/10/20 09/06/23 Pantoprazole Sodium [Protonix] 40 mg PO BID 05/10/20 09/06/23 SUMAtriptan succinate 6 mg SQ BID PRN 05/10/20 09/06/23 methocarbamoL [Robaxin] 500 mg PO TID 05/10/20 09/06/23 Infliximab-Dyyb [Inflectra] 1 dose IV Q42D 05/23/20 09/06/23 oxyCODONE-APAP 10-325MG [Percocet 1 tab PO BID PRN 04/17/22 09/06/23 10-325 mg] ALPRAZolam [Xanax] 0.25 mg PO BID 11/05/22 09/06/23 Albuterol Inhaler [Ventolin Hfa 2 puff INHALATION RT-Q6H PRN 11/05/22 09/06/23 Inhaler] Albuterol Nebulized [Ventolin 2.5 mg INHALATION RT-QID PRN 07/12/23 09/06/23 Nebulized] Patient Own Pump 0 bag 06/05/24 Previous Rx's Medication Instructions Recorded metFORMIN HCL [Glucophage] 500 mg PO BID #60 tab 02/10/18 Allergies Allergy/AdvReac Type Severity Reaction Status Date / Time adhesive Allergy Severe Rash/Hives Verified 12/30/23 21:57 adhesive tape Allergy Severe Rash/Hives Verified 12/30/23 21:57 fentanyl Allergy Severe Rash/Hives Verified 12/30/23 21:57 from patch only latex Allergy Severe Rash/Hives Verified 12/30/23 21:57 metoclopramide [From Reglan] Allergy dystonia Verified 12/30/23 21:57 from IV Reglan prochlorperazine Allergy dystonia Verified 12/30/23 21:57 [From Compazine] Review of Systems ROS Statement: Those systems with pertinent positive or pertinent negative responses have been documented in the HPI. ROS Other: All systems not noted in ROS Statement are negative. Constitutional: Denies: fever, chills, weakness Eyes: Denies: vision change ENT: Denies: ear pain, congestion Respiratory: Denies: cough, dyspnea Cardiovascular: Denies: chest pain, syncope Gastrointestinal: Reports: nausea. Denies: abdominal pain Musculoskeletal: Denies: back pain Skin: Denies: rash Neurological: Reports: headache. Denies: weakness, numbness, confusion Past Medical History Past Medical History: Asthma, Diabetes Mellitus, GERD/Reflux, Musculoskeletal Disorder, Neurologic Disorder, Sleep Apnea/CPAP/BIPAP, Thyroid Disorder Additional Past Medical History / Comment(s): MS, back pain, DDD, optic neuritis, Gastroparesis., C-Diff (June 2018) leukopenia (sores in mouth) migraines, sleep apnea due to M.S. (no machine), sarcoidosis, cyst in stomach. , hopitalized 10/04/19 after lumbar puncture because heart rate dropped, hospitalized 10/10/19 for headache (post l.p.), states allergy to all adhesive and needs benadryl IV 50mg prior to using tape or tegaderm etc. History of Any Multi-Drug Resistant Organisms: C-DIFF Date of last positivie culture/infection: 2018 MDRO Source:: stool Past Surgical History: Bladder Surgery, Breast Surgery, Hernia Repair, Hysterectomy, Orthopedic Surgery, Tubal Ligation Additional Past Surgical History / Comment(s): rhinoplasty, bladder suspension, breast sx, morphine pump, RT KNEE SCOPE, TUMMY TUCK, Spinal cord stimulator inserted and removed. port august 2019, gastroparesis botox and EGD 11/06/2019, breast implants, gastric surgery (g-poem) 05/05/20, Stent placed on kidney, hernia repair X2 Past Anesthesia/Blood Transfusion Reactions: Motion Sickness, Postoperative Nausea & Vomiting (PONV) Past Psychological History: No Psychological Hx Reported Smoking Status: Never smoker Past Alcohol Use History: Occasional Past Drug Use History: None Reported - Past Family History Father History Unknown: Yes Family Medical History: No Reported History Additional Family Medical History / Comment(s): . Mother History Unknown: Yes Family Medical History: No Reported History Additional Family Medical History / Comment(s): NO FAMILY HISTORY General Exam Limitations: no limitations General appearance: alert, in no apparent distress Head exam: Present: atraumatic, normocephalic Eye exam: Present: normal appearance, EOMI. Absent: scleral icterus, conjunctival injection, nystagmus ENT exam: Present: normal oropharynx Neck exam: Present: normal inspection, full ROM. Absent: tenderness, meningismus GI/Abdominal exam: Present: soft. Absent: tenderness Extremities exam: Present: normal inspection, normal capillary refill Neurological exam: Present: alert, oriented X3, CN II-XII intact. Absent: motor sensory deficit Skin exam: Present: warm, dry, intact, normal color. Absent: rash Course Vital Signs 12/30/23 12/31/23 21:55 02:00 Temperature 97.5 F L Pulse Rate 102 H 81 Respiratory 20 18 Rate Blood Pressure 132/87 130/98 O2 Sat by Pulse 100 99 Oximetry Medical Decision Making - Medical Decision Making Was pt. sent in by a medical professional or institution (, PA, SURFACING MACHINE OPERATOR, urgent care, hospital, or intermediate...) When possible be specific @ -[No] Did you speak to anyone other than the patient for history (EMS, parent, family, police, friend...)? What history was obtained from this source @ -[No] Did you review nursing and triage notes (agree or disagree)? Why? @ -[I reviewed and agree with nursing and triage notes] Were old charts reviewed (outside hosp., previous admission, EMS record, old EKG, old radiological studies, urgent care reports/EKG's, intermediate records)? Report findings @ -[No old charts were reviewed] Differential Diagnosis (chest pain, altered mental status, abdominal pain women, abdominal pain men, vaginal bleeding, weakness, fever, dyspnea, syncope, headache, dizziness, GI bleed, back pain, seizure, CVA, palpatations, mental health, musculoskeletal)? @ -[Differential Headache: Migraine, tension, cluster, carbon monoxide, central venous thrombosis, pension karma temporal arteritis, acute closure glaucoma, intercranial hemorrhage, mastoiditis, sinusitis, head injury, this is not meant to be an all-inclusive list. EKG interpreted by me (3pts min.). @ -[As above] X-rays interpreted by me (1pt min.). @ -[None done] CT interpreted by me (1pt min.). @ -[None done] U/S interpreted by me (1pt. min.). @ -[None done] What testing was considered but not performed or refused? (CT, X-rays, U/S, labs)? Why? @ -[None] What meds were considered but not given or refused? Why? @ -[None] Did you discuss the management of the patient with other professionals (professionals i.e. , PA, SURFACING MACHINE OPERATOR, lab, RT, psych nurse, bilingual social worker, professor of forestry, teacher, assistant chief nursing officer, family preservation caseworker)? Give summary @ -[No] Was smoking cessation discussed for >3mins.? @ -[No] Was critical care preformed (if so, how long)? @ -[No] Were there social determinants of health that impacted care today? How? (Homelessness, low income, unemployed, alcoholism, drug addiction, transportation, low edu. Level, literacy, decrease access to med. care, senior living, rehab)? @ -[No] Was there de-escalation of care discussed even if they declined (Discuss DNR or withdrawal of care, Hospice)? DNR status @ -[No] What co-morbidities impacted this encounter? (DM, HTN, Smoking, COPD, CAD, Cancer, CVA, ARF, Chemo, Hep., AIDS, mental health diagnosis, sleep apnea, morbid obesity)? @ -[History of migraine headache Was patient admitted / discharged? Hospital course, mention meds given and route, prescriptions, significant lab abnormalities, going to OR and other pertinent info. @ -Patient is a 53-year-old woman with history of chronic headaches. She did have some relief here and would like to go home. Discussed appropriate further care and follow-up as well as return parameters. Undiagnosed new problem with uncertain prognosis? @ -[No] Drug Therapy requiring intensive monitoring for toxicity (Heparin, Nitro, Insulin, Cardizem)? @ -[No] Were any procedures done? @ -[No] Diagnosis/symptom? @ -Acute headache Acute, or Chronic, or Acute on Chronic? @ -[Acute Uncomplicated (without systemic symptoms) or Complicated (systemic symptoms)? @ -[Uncomplicated Side effects of treatment? @ -[No] Exacerbation, Progression, or Severe Exacerbation? @ -[No] Poses a threat to life or bodily function? How? (Chest pain, [place], [place], pneumonia, PE, COPD, DKA, ARF, appy, cholecystitis, CVA, Diverticulitis, Homicidal, Suicidal, threat to staff... and all critical care pts) @ -[No] - Lab Data Result diagrams: 12/31/23 00:07 12/31/23 00:07 Lab Results 12/31/23 12/31/23 12/31/23 Range/Units 00:07 00:07 00:07 WBC 9.2 (3.8-10.6) k/uL RBC 4.31 (3.80-5.40) m/uL Hgb 12.2 (11.4-16.0) gm/dL Hct 37.8 (34.0-46.0) % MCV 87.8 (80.0-100.0) fL MCH 28.4 (25.0-35.0) pg MCHC 32.4 (31.0-37.0) g/dL RDW 16.2 H (11.5-15.5) % Plt Count 227 (150-450) k/uL MPV 7.2 Neutrophils % 63 % Lymphocytes % 29 % Monocytes % 6 % Eosinophils % 1 % Basophils % 0 % Neutrophils # 5.8 (1.3-7.7) k/uL Lymphocytes # 2.6 (1.0-4.8) k/uL Monocytes # 0.5 (0-1.0) k/uL Eosinophils # 0.1 (0-0.7) k/uL Basophils # 0.0 (0-0.2) k/uL Anisocytosis Slight Sodium 139 (137-145) mmol/L Potassium 3.9 (3.5-5.1) mmol/L Chloride 111 H (98-107) mmol/L Carbon Dioxide 26 (22-30) mmol/L Anion Gap 2 mmol/L BUN 25 H (7-17) mg/dL Creatinine 0.79 (0.52-1.04) mg/dL Est GFR (CKD-EPI)AfAm >90 (>60 ml/min/1.73 sqM) Est GFR (CKD-EPI)NonAf 87 (>60 ml/min/1.73 sqM) Glucose 141 H (74-99) mg/dL Calcium 9.1 (8.4-10.2) mg/dL Magnesium 2.0 (1.6-2.3) mg/dL Total Bilirubin 0.3 (0.2-1.3) mg/dL AST 20 (14-36) U/L ALT 30 (4-34) U/L Alkaline Phosphatase 70 (38-126) U/L Total Protein 5.9 L (6.3-8.2) g/dL Albumin 3.6 (3.5-5.0) g/dL Lipase 23 (23-300) U/L Influenza Type A (PCR) Not Detected (Not Detectd) Influenza Type B (PCR) Not Detected (Not Detectd) RSV (PCR) Not Detected (Not Detectd) SARS-CoV-2 (PCR) Not Detected (Not Detectd) Disposition Clinical Impression: Headache Disposition: HOME SELF-CARE Condition: Good Instructions (If sedation given, give patient instructions): Acute Headache (ED) Is patient prescribed a controlled substance at d/c from ED?: No Referrals: Abdi Taylor MD [Primary Care Provider] - 1-2 days
== END 2023-12-31 03:26 | disposition home or self-care (01) ==
LOC: EC 21:41
CPT/HCPCS: 36415; 80053; 83690; 83735; 85025; 87636; 93005; 96361; 96374; 96375; 96376; 99283

== ENCOUNTER 2024-01-30 00:52 | Emergency (ER) | payer MEDICARE, OTHER ==
[2024-01-30 00:58] VITALS: BP 121/80; PULSE 116; RESP 20; TEMP 97.7
[2024-01-30] MEDS ORDERED: SODIUM CHLORIDE 0.9% 1,000 ML IV STA (01:21)
[2024-01-30] MEDS ORDERED: diphenhydrAMINE 50 MG/ML 1 ML VIAL IVP STA (01:21)
[2024-01-30] MEDS ORDERED: ONDANSETRON 4 MG/2 ML VIAL IVP STA (01:21)
--- NOTE | 2024-01-30 02:39 | XR ---
EXAM: XR Chest, 2 Views CLINICAL HISTORY: ITS.REASON XR Reason: pain TECHNIQUE: Frontal and lateral views of the chest. COMPARISON: No relevant prior studies available. FINDINGS: Lungs: Unremarkable. No consolidation. Pleural space: Unremarkable. No pneumothorax. Heart: Unremarkable. No cardiomegaly. Mediastinum: Unremarkable. Normal mediastinal contour. Bones/joints: Unremarkable. No acute fracture. Tubes, lines and devices: RIGHT Port-A-Cath terminates in the SVC. IMPRESSION: No acute findings in the chest.
--- NOTE | 2024-01-30 02:53 | ED ---
General Adult HPI - General Chief complaint: Nausea/Vomiting/Diarrhea Stated complaint: Vomiting, heartburn Time Seen by Provider: 01/30/24 01:03 Source: patient Mode of arrival: ambulatory Limitations: no limitations - History of Present Illness Initial comments: 53-year-old female presenting with chief complaint of nausea and vomiting. This has been ongoing for several days. Patient has history of gastroparesis. She also admits to heartburn. No hematemesis. Patient states she has had diarrhea but she does regularly have diarrhea at baseline. She denies difficulty breathing. No fever, she does admit to chills. - Related Data Home Medications Medication Instructions Recorded Confirmed DULoxetine HCL [Cymbalta] 60 mg PO DAILY 01/10/17 09/06/23 Levothyroxine Sodium [Synthroid] 112 mcg PO DAILY 12/05/18 09/06/23 rOPINIRole HCL [Requip] 2 mg PO TID 12/05/18 09/06/23 Baclofen 10 mg PO TID 04/29/19 09/06/23 Ondansetron Odt [Zofran ODT] 8 mg PO DAILY PRN 11/13/19 09/06/23 Gabapentin [Neurontin] 100 mg PO TID 05/10/20 09/06/23 Pantoprazole Sodium [Protonix] 40 mg PO BID 05/10/20 09/06/23 SUMAtriptan succinate 6 mg SQ BID PRN 05/10/20 09/06/23 methocarbamoL [Robaxin] 500 mg PO TID 05/10/20 09/06/23 Infliximab-Dyyb [Inflectra] 1 dose IV Q42D 05/23/20 09/06/23 oxyCODONE-APAP 10-325MG [Percocet 1 tab PO BID PRN 04/17/22 09/06/23 10-325 mg] ALPRAZolam [Xanax] 0.25 mg PO BID 11/05/22 09/06/23 Albuterol Inhaler [Ventolin Hfa 2 puff INHALATION RT-Q6H PRN 11/05/22 09/06/23 Inhaler] Albuterol Nebulized [Ventolin 2.5 mg INHALATION RT-QID PRN 07/12/23 09/06/23 Nebulized] Patient Own Pump 0 bag 09/06/23 Previous Rx's Medication Instructions Recorded metFORMIN HCL [Glucophage] 500 mg PO BID #60 tab 02/10/18 Allergies Allergy/AdvReac Type Severity Reaction Status Date / Time adhesive Allergy Severe Rash/Hives Verified 01/30/24 00:58 adhesive tape Allergy Severe Rash/Hives Verified 01/30/24 00:58 fentanyl Allergy Severe Rash/Hives Verified 01/30/24 00:58 from patch only latex Allergy Severe Rash/Hives Verified 01/30/24 00:58 metoclopramide [From Reglan] Allergy dystonia Verified 01/30/24 00:58 from IV Reglan prochlorperazine Allergy dystonia Verified 01/30/24 00:58 [From Compazine] Review of Systems ROS Statement: Those systems with pertinent positive or pertinent negative responses have been documented in the HPI. ROS Other: All systems not noted in ROS Statement are negative. Past Medical History Past Medical History: Asthma, Diabetes Mellitus, GERD/Reflux, Musculoskeletal Disorder, Neurologic Disorder, Sleep Apnea/CPAP/BIPAP, Thyroid Disorder Additional Past Medical History / Comment(s): MS, back pain, DDD, optic neuritis, Gastroparesis., C-Diff (June 2018) leukopenia (sores in mouth) migraines, sleep apnea due to M.S. (no machine), sarcoidosis, cyst in stomach. , hopitalized 10/04/19 after lumbar puncture because heart rate dropped, hospitalized 10/10/19 for headache (post l.p.), states allergy to all adhesive and needs benadryl IV 50mg prior to using tape or tegaderm etc. History of Any Multi-Drug Resistant Organisms: C-DIFF Date of last positivie culture/infection: 2018 MDRO Source:: stool Past Surgical History: Bladder Surgery, Breast Surgery, Hernia Repair, Hysterectomy, Orthopedic Surgery, Tubal Ligation Additional Past Surgical History / Comment(s): rhinoplasty, bladder suspension, breast sx, morphine pump, RT KNEE SCOPE, TUMMY TUCK, Spinal cord stimulator inserted and removed. port august 2019, gastroparesis botox and EGD 11/06/2019, breast implants, gastric surgery (g-poem) 05/05/20, Stent placed on kidney, hernia repair X2 Past Anesthesia/Blood Transfusion Reactions: Motion Sickness, Postoperative Nausea & Vomiting (PONV) Past Psychological History: No Psychological Hx Reported Smoking Status: Never smoker Past Alcohol Use History: Occasional Past Drug Use History: None Reported - Past Family History Father History Unknown: Yes Family Medical History: No Reported History Additional Family Medical History / Comment(s): . Mother History Unknown: Yes Family Medical History: No Reported History Additional Family Medical History / Comment(s): NO FAMILY HISTORY General Exam Limitations: no limitations General appearance: alert, in no apparent distress Head exam: Present: atraumatic, normocephalic, normal inspection Eye exam: Present: normal appearance, EOMI Neck exam: Present: normal inspection. Absent: meningismus Respiratory exam: Present: normal lung sounds bilaterally. Absent: respiratory distress, wheezes, rales, rhonchi, stridor Cardiovascular Exam: Present: regular rate, normal rhythm, normal heart sounds. Absent: systolic murmur, diastolic murmur, rubs, gallop, clicks GI/Abdominal exam: Present: soft. Absent: distended, tenderness, guarding, rebound, rigid Neurological exam: Present: alert, oriented X3 Psychiatric exam: Present: normal affect, normal mood Skin exam: Present: warm, dry Course Vital Signs 01/30/24 00:54 Temperature 97.7 F Pulse Rate 116 H Respiratory 20 Rate Blood Pressure 121/80 O2 Sat by Pulse 100 Oximetry Medical Decision Making - Medical Decision Making Was pt. sent in by a medical professional or institution (GILLIAN Garza, WASHING MACHINE REPAIRER, urgent care, hospital, or [facility]...) When possible be specific @ -No Did you speak to anyone other than the patient for history (EMS, parent, family, police, friend...)? What history was obtained from this source @ -No Did you review nursing and triage notes (agree or disagree)? Why? @ -I reviewed and agree with nursing and triage notes Were old charts reviewed (outside hosp., previous admission, EMS record, old EKG, old radiological studies, urgent care reports/EKG's, [facility] records)? Report findings @ -No old charts were reviewed Differential Diagnosis (chest pain, altered mental status, abdominal pain women, abdominal pain men, vaginal bleeding, weakness, fever, dyspnea, syncope, headache, dizziness, GI bleed, back pain, seizure, CVA, palpatations, mental health, musculoskeletal)? @ -Differential includes gastroenteritis, gastritis, GERD, ACS,, this is not an all-inclusive list EKG interpreted by me (3pts min.). @ -EKG shows sinus tachycardia ventricular rate 103. WA interval 136. QRS 76. QT 333. QTc 393. X-rays interpreted by me (1pt min.). @ -Chest x-ray shows no acute process in the chest CT interpreted by me (1pt min.). @ -None done U/S interpreted by me (1pt. min.). @ -None done What testing was considered but not performed or refused? (CT, X-rays, U/S, labs)? Why? @ -Lab work was ordered, patient left prior to obtaining labs What meds were considered but not given or refused? Why? @ -None Did you discuss the management of the patient with other professionals (professionals i.e. , PA, WASHING MACHINE REPAIRER, lab, RT, psych nurse, pediatric social worker, head pumper, teacher, control officer, immigration case manager)? Give summary @ -No Was smoking cessation discussed for >3mins.? @ -No Was critical care preformed (if so, how long)? @ -No Were there social determinants of health that impacted care today? How? (Homelessness, low income, unemployed, alcoholism, drug addiction, transportation, low edu. Level, literacy, decrease access to med. care, custodial, rehab)? @ -No Was there de-escalation of care discussed even if they declined (Discuss DNR or withdrawal of care, Hospice)? DNR status @ -No What co-morbidities impacted this encounter? (DM, HTN, Smoking, COPD, CAD, Cancer, CVA, ARF, Chemo, Hep., AIDS, mental health diagnosis, sleep apnea, morbid obesity)? @ -None Was patient admitted / discharged? Hospital course, mention meds given and route, prescriptions, significant lab abnormalities, going to OR and other pertinent info. @ -53-year-old female presenting with chief complaint of nausea and vomiting. History of gastroparesis. She is also complaining of heartburn. Lab work, chest x-ray, EKG, antiemetics are ordered. Chest x-ray shows no acute process. EKG shows sinus rhythm. I am later told by nursing staff that the patient left due to frustrations with them trying to access her port. Patient eloped prior to speaking with me. Undiagnosed new problem with uncertain prognosis? @ -No Drug Therapy requiring intensive monitoring for toxicity (Heparin, Nitro, Insulin, Cardizem)? @ -No Were any procedures done? @ -No Diagnosis/symptom? @ -Nausea and vomiting Acute, or Chronic, or Acute on Chronic? @ -Acute Uncomplicated (without systemic symptoms) or Complicated (systemic symptoms)? @ -Not determined Side effects of treatment? @ -No Exacerbation, Progression, or Severe Exacerbation? @ -No Poses a threat to life or bodily function? How? (Chest pain, [place], [place], pneumonia, PE, COPD, DKA, ARF, appy, cholecystitis, CVA, Diverticulitis, Homicidal, Suicidal, threat to staff... and all critical care pts) @ -Potential, patient did not complete evaluation prior to eloping Disposition Clinical Impression: Nausea & vomiting Disposition: LEFT AGAINST MEDICAL ADVICE Condition: Undetermined Referrals: Abdi Taylor MD [Primary Care Provider] - 1-2 days
== END 2024-01-30 02:36 | disposition left against medical advice (07) ==
LOC: EC 00:52
CPT/HCPCS: 71046; 93005; 99284

== ENCOUNTER 2024-03-21 21:52 | Inpatient (IN) | payer MEDICARE, OTHER ==
--- NOTE | 2024-03-22 00:20 | ED ---
Abdominal Pain HPI - General Source: patient, RN notes reviewed Mode of arrival: wheelchair Limitations: no limitations - History of Present Illness MD Complaint: abdominal pain Onset/Timin -: hour(s) <Peewee Gamez - Last Filed: 03/22/24 00:17> <Patti Bobby - Last Filed: 03/22/24 06:46> - General Chief Complaint: Abdominal Pain Stated Complaint: Post op pain - History of Present Illness Initial Comments: This is a 53-year-old female presenting for surgical abdominal pain (01/10). Patient states she recently left leg from medical AMA following GJ tube surgical procedure 1 hour prior to ER arrival. Patient states she was very unhappy with everything was conducted there, stating she did not receive any pain medication following the procedure. Patient states she spoke to Dr. Wynne who advised her to go to [facility] ER. Patient states she has never been in this much pain before. (Peewee Gamez) - Related Data Home Medications Medication Instructions Recorded Confirmed DULoxetine HCL [Cymbalta] 60 mg PO DAILY 01/10/17 09/06/23 Levothyroxine Sodium [Synthroid] 112 mcg PO DAILY 12/05/18 09/06/23 rOPINIRole HCL [Requip] 2 mg PO TID 12/05/18 09/06/23 Baclofen 10 mg PO TID 04/29/19 09/06/23 Ondansetron Odt [Zofran ODT] 8 mg PO DAILY PRN 11/13/19 09/06/23 Gabapentin [Neurontin] 100 mg PO TID 05/10/20 09/06/23 Pantoprazole Sodium [Protonix] 40 mg PO BID 05/10/20 09/06/23 SUMAtriptan succinate 6 mg SQ BID PRN 05/10/20 09/06/23 methocarbamoL [Robaxin] 500 mg PO TID 05/10/20 09/06/23 Infliximab-Dyyb [Inflectra] 1 dose IV Q42D 05/23/20 09/06/23 oxyCODONE-APAP 10-325MG [Percocet 1 tab PO BID PRN 04/17/22 09/06/23 10-325 mg] ALPRAZolam [Xanax] 0.25 mg PO BID 11/05/22 09/06/23 Albuterol Inhaler [Ventolin Hfa 2 puff INHALATION RT-Q6H PRN 11/05/22 09/06/23 Inhaler] Albuterol Nebulized [Ventolin 2.5 mg INHALATION RT-QID PRN 07/12/23 09/06/23 Nebulized] Patient Own Pump 0 bag 09/06/23 Previous Rx's Medication Instructions Recorded metFORMIN HCL [Glucophage] 500 mg PO BID #60 tab 02/10/18 Allergies Allergy/AdvReac Type Severity Reaction Status Date / Time adhesive Allergy Severe Rash/Hives Verified 03/21/24 22:00 adhesive tape Allergy Severe Rash/Hives Verified 03/21/24 22:00 fentanyl Allergy Severe Rash/Hives Verified 03/21/24 22:00 from patch only latex Allergy Severe Rash/Hives Verified 03/21/24 22:00 metoclopramide [From Reglan] Allergy dystonia Verified 03/21/24 22:00 from IV Reglan prochlorperazine Allergy dystonia Verified 03/21/24 22:00 [From Compazine] Review of Systems ROS Other: All systems not noted in ROS Statement are negative. <Peewee Gamez - Last Filed: 03/22/24 00:17> ROS Other: All systems not noted in ROS Statement are negative. <Patti Bobby - Last Filed: 03/22/24 06:46> ROS Statement: Those systems with pertinent positive or pertinent negative responses have been documented in the HPI. Past Medical History Past Medical History: Asthma, Diabetes Mellitus, GERD/Reflux, Musculoskeletal Disorder, Neurologic Disorder, Sleep Apnea/CPAP/BIPAP, Thyroid Disorder Additional Past Medical History / Comment(s): MS, back pain, DDD, optic neuritis, Gastroparesis., C-Diff (June 2018) leukopenia (sores in mouth) migraines, sleep apnea due to M.S. (no machine), sarcoidosis, cyst in stomach. , hopitalized 10/04/19 after lumbar puncture because heart rate dropped, hospitalized 10/10/19 for headache (post l.p.), states allergy to all adhesive and needs benadryl IV 50mg prior to using tape or tegaderm etc. History of Any Multi-Drug Resistant Organisms: C-DIFF Date of last positivie culture/infection: 2018 MDRO Source:: stool Past Surgical History: Bladder Surgery, Breast Surgery, Hernia Repair, Hysterectomy, Orthopedic Surgery, Tubal Ligation Additional Past Surgical History / Comment(s): rhinoplasty, bladder suspension, breast sx, morphine pump, RT KNEE SCOPE, TUMMY TUCK, Spinal cord stimulator inserted and removed. port august 2019, gastroparesis botox and EGD 11/06/2019, breast implants, gastric surgery (g-poem) 05/05/20, Stent placed on kidney, hernia repair X2 Past Anesthesia/Blood Transfusion Reactions: Motion Sickness, Postoperative Nausea & Vomiting (PONV) Past Psychological History: No Psychological Hx Reported Smoking Status: Never smoker Past Alcohol Use History: Occasional Past Drug Use History: None Reported - Past Family History Father History Unknown: Yes Family Medical History: No Reported History Additional Family Medical History / Comment(s): . Mother History Unknown: Yes Family Medical History: No Reported History Additional Family Medical History / Comment(s): NO FAMILY HISTORY <Peewee Gamez - Last Filed: 03/22/24 00:17> General Exam Limitations: no limitations <Peewee Gamez - Last Filed: 03/22/24 00:17> <Patti Bobby - Last Filed: 03/22/24 06:46> - General Exam Comments Initial Comments: Visual Physical Exam Vital signs reviewed General: Nontoxic. Patient appears distressed, seated in wheelchair Head: Normocephalic, atraumatic Eyes: PERRLA, EOMI ENT: Airway patent Chest: Nonlabored breathing Skin: No visual rash, normal skin tone Neuro: Alert and oriented 3 Musculoskeletal: No gross abnormalities (Peewee Gamez) Physical Exam GENERAL: Patient is laying on her right side curled in a ball holding her abdomen crying in pain. HENT: Normocephalic, Atraumatic. EYES: PERRL, EOMI PULMONARY: Unlabored respirations CARDIOVASCULAR: Warm and well-perfused extremities ABDOMEN: Soft, diffusely tender, new GJ tube in place with no surrounding erythema or bleeding SKIN: New GJ tube in abdomen with no significant bleeding or bruising : Deferred NEUROLOGIC: Patient is alert and oriented x3 MUSCULOSKELETAL: Normal extremities with adequate strength and full range of motion. No lower extremity swelling or edema. No calf tenderness. (Bobby,Patti P) Course Vital Signs 03/21/24 03/22/24 21:55 04:58 Temperature 97.5 F L Pulse Rate 99 78 Respiratory 20 17 Rate Blood Pressure 134/90 118/75 O2 Sat by Pulse 97 94 L Oximetry Medical Decision Making <Peewee Gamez - Last Filed: 03/22/24 00:17> - Lab Data Result diagrams: 03/22/24 01:01 03/22/24 01:01 <Patti Bobby - Last Filed: 03/22/24 06:46> - Medical Decision Making I completed the quick note portion of this chart signed PETER Steele (Peewee Gamez) Peyton is a 53-year-old female with very complicated complex medical history including MS, gastroparesis. Patient reports she has been hospitalized at [facility] for the past 10 days, she underwent placement of a GJ tube by IR earlier today but upon her return to the floor she felt she was not having her pain adequately treated and she decided to leave from the hospital AGAINST MEDICAL ADVICE to seek care here. Patient states she was planning on being transferred here for consult to surgeons for port placement. Was pt. sent in by a medical professional or institution (, GILLIAN, PLASTICS WORKER, urgent care, hospital, or group home...) When possible be specific @ -Yes, advised to come here by Dr. Wynne Did you speak to anyone other than the patient for history (EMS, parent, family, police, friend...)? What history was obtained from this source @ -, Dr. Wynne Did you review nursing and triage notes (agree or disagree)? Why? @ -I reviewed and agree with nursing and triage notes Were old charts reviewed (outside hosp., previous admission, EMS record, old EKG, old radiological studies, urgent care reports/EKG's, group home records)? Report findings @ -No old charts were reviewed Differential Diagnosis (chest pain, altered mental status, abdominal pain women, abdominal pain men, vaginal bleeding, weakness, fever, dyspnea, syncope, headach e, dizziness, GI bleed, back pain, seizure, CVA, palpatations, mental health)? @ -Differential Abdominal Pain Women: Appendicitis, Cholecystitis, diverticulosis, ischemic bowel, pancreatitis, hepatitis, UTI, gastroenteritis, AAA, incarcerated hernia, bowel obstruction, constipation, inflammatory bowel, hepatitis, peptic ulcer disease, splenic infarction, perforated viscus, vulvitis, ovarian torsion, PID, kidney stone, placenta abruption, this is not meant to be an all-inclusive list EKG interpreted by me (3pts min.). @ -As above X-rays interpreted by me (1pt min.). @ -None done CT interpreted by me (1pt min.). @ -CT scan with contrast within the lumen of the jejunum, no free air or signs of obstruction U/S interpreted by me (1pt. min.). @ -None done What testing was considered but not performed or refused? (CT, X-rays, U/S, labs)? Why? @ -None What meds were considered but not given or refused? Why? @ -None Did you discuss the management of the patient with other professionals (professionals i.e. , PA, PLASTICS WORKER, lab, RT, psych nurse, sr. social media & mobile manager, quality improvement manager, teacher, chief administrative officer, director of casework department)? Give summary @ -Discussed with Dr. Wynne Was smoking cessation discussed for >3mins.? @ -No Was critical care preformed (if so, how long)? @ -No Were there social determinants of health that impacted care today? How? (Homelessness, low income, unemployed, alcoholism, drug addiction, transportation, low edu. Level, literacy, decrease access to med. care, senior living, rehab)? @ -No Was there de-escalation of care discussed even if they declined (Discuss DNR or withdrawal of care, Hospice)? DNR status @ -No What co-morbidities impacted this encounter? (DM, HTN, Smoking, COPD, CAD, Cancer, CVA, ARF, Chemo, Hep., AIDS, mental health diagnosis, sleep apnea, morbid obesity)? @ -None Was patient admitted / discharged? Hospital course, mention meds given and route, prescriptions, significant lab abnormalities, going to OR and other pertinent info. @ -Admit Patient was seen and evaluated, history is obtained from patient. Patient has been under Dr. Wynne's care at [facility] for the past 10 days today she had a GJ tube placed by IR and her pain was not managed appropriately so she came here for further management. She is in excruciating pain labs and a CT scan were obtained labs are unremarkable CT scan shows GJ tube in appropriate position. These findings were discussed with Dr. Wynne who recommends admission to the hospital with a consult to Dr. Huerta for possible port placement and consult to dietary for PEG tube planning. Undiagnosed new problem with uncertain prognosis? @ -No Drug Therapy requiring intensive monitoring for toxicity (Heparin, Nitro, Insulin, Cardizem)? @ -No Were any procedures done? @ -No Diagnosis/symptom? @ -Gastroparesis, GJ tube placement, need for tube feed management Acute, or Chronic, or Acute on Chronic? @ -Acute Uncomplicated (without systemic symptoms) or Complicated (systemic symptoms)? @ -Default Side effects of treatment? @ -No Exacerbation, Progression, or Severe Exacerbation? @ -No Poses a threat to life or bodily function? How? (Chest pain, USA, NM, pneumonia, PE, COPD, DKA, ARF, appy, cholecystitis, CVA, Diverticulitis, Homicidal, Suicidal, threat to staff... and all critical care pts) @ -No (Patti Bobby) - Lab Data Lab Results 03/22/24 03/22/24 03/22/24 Range/Units 01:01 01:01 01:01 WBC 7.9 (3.8-10.6) k/uL RBC 4.38 (3.80-5.40) m/uL Hgb 12.4 (11.4-16.0) gm/dL Hct 37.9 (34.0-46.0) % MCV 86.6 (80.0-100.0) fL MCH 28.2 (25.0-35.0) pg MCHC 32.6 (31.0-37.0) g/dL RDW 14.1 (11.5-15.5) % Plt Count 253 (150-450) k/uL MPV 7.3 Neutrophils % 54 % Lymphocytes % 31 % Monocytes % 5 % Eosinophils % 9 % Basophils % 1 % Neutrophils # 4.2 (1.3-7.7) k/uL Lymphocytes # 2.5 (1.0-4.8) k/uL Monocytes # 0.4 (0-1.0) k/uL Eosinophils # 0.7 (0-0.7) k/uL Basophils # 0.1 (0-0.2) k/uL Sodium 137 (137-145) mmol/L Potassium 4.8 (3.5-5.1) mmol/L Chloride 104 (98-107) mmol/L Carbon Dioxide 28 (22-30) mmol/L Anion Gap 5 mmol/L BUN 18 H (7-17) mg/dL Creatinine 0.93 (0.52-1.04) mg/dL Est GFR (CKD-EPI)AfAm 82 (>60 ml/min/1.73 sqM) Est GFR (CKD-EPI)NonAf 71 (>60 ml/min/1.73 sqM) Glucose 110 H (74-99) mg/dL Plasma Lactic Acid Antoni 1.3 (0.7-2.0) mmol/L Calcium 9.3 (8.4-10.2) mg/dL Total Bilirubin 0.8 (0.2-1.3) mg/dL AST 26 (14-36) U/L ALT 16 (4-34) U/L Alkaline Phosphatase 66 (38-126) U/L Total Protein 7.3 (6.3-8.2) g/dL Albumin 4.2 (3.5-5.0) g/dL Lipase 20 L (23-300) U/L Disposition <Peewee Gamez - Last Filed: 03/22/24 00:17> Is patient prescribed a controlled substance at d/c from ED?: No <Patti Bobby - Last Filed: 03/22/24 06:46> Clinical Impression: Gastroparesis, Intractable pain Disposition: ADMITTED IP TO THIS HOSP Condition: Stable Referrals: Abdi Taylor MD [REFERRING] - 1-2 days
[2024-03-22] MEDS: KETOROLAC 15 MG/ML 1 ML VIAL IVP STA (00:30)
[2024-03-22] MEDS: HYDROmorphone 1 MG/ML 1 ML SYRINGE IVP STA ×3 (00:31→04:54)
[2024-03-22 01:11] LABS: Basophils # (A) 0.1 k/uL (0-0.2); Basophils % (A) 1 %; Eosinophils # (A) 0.7 k/uL (0-0.7); Eosinophils % (A) 9 %; HCT 37.9 % (34.0-46.0); HGB 12.4 gm/dL (11.4-16.0); Lymphocytes # (A) 2.5 k/uL (1.0-4.8); Lymphocytes % (A) 31 %; MCH 28.2 pg (25.0-35.0); MCHC 32.6 g/dL (31.0-37.0); MCV 86.6 fL (80.0-100.0); Mean Platelet Volume 7.3; Monocytes # (A) 0.4 k/uL (0-1.0); Monocytes % (A) 5 %; Neutrophils # (A) 4.2 k/uL (1.3-7.7); Neutrophils % (A) 54 %; Platelet Count 253 k/uL (150-450); RBC 4.38 m/uL (3.80-5.40); RDW 14.1 % (11.5-15.5); WBC 7.9 k/uL (3.8-10.6)
[2024-03-22] MEDS ORDERED: IOPAMIDOL CONTRAST (ORAL USE) VIAL PO PRN (01:25)
[2024-03-22 01:31] LABS: ALT 16 U/L (4-34); AST 26 U/L (14-36); African American GFR (CKD) 82 (>60 ml/min/1.73 sqM); Albumin 4.2 g/dL (3.5-5.0); Alkaline Phosphatase 66 U/L (38-126); Anion Gap 5 mmol/L; Blood Urea Nitrogen 18 mg/dL (7-17); Calcium 9.3 mg/dL (8.4-10.2); Carbon Dioxide 28 mmol/L (22-30); Chloride 104 mmol/L (98-107); Glucose 110 mg/dL (74-99); Lipase 20 U/L (23-300); Non-African American GFR(CKD) 71 (>60 ml/min/1.73 sqM); Potassium 4.8 mmol/L (3.5-5.1); Sodium 137 mmol/L (137-145); Total Bilirubin 0.8 mg/dL (0.2-1.3); Total Protein 7.3 g/dL (6.3-8.2)
[2024-03-22] MEDS: diphenhydrAMINE 50 MG/ML 1 ML VIAL IVP STA (01:35)
--- NOTE | 2024-03-22 06:03 | CT ---
EXAM: CT Abdomen and Pelvis Without Intravenous Contrast CLINICAL HISTORY: ITS.REASON CT Reason: GJ placement 7pm, severe pain TECHNIQUE: Axial computed tomography images of the abdomen and pelvis without intravenous contrast. CTDI is 23.9 mGy and DLP is 1415 mGy-cm. This CT exam was performed using one or more of the following dose reduction techniques: automated exposure control, adjustment of the mA and/or kV according to patient size, and/or use of iterative reconstruction technique. COMPARISON: CT dated 07/13/2023 FINDINGS: Lung bases: Multiple bilateral pulmonary nodules the largest measuring 4 mm. Consider follow-up with nonemergent outpatient dedicated chest CT for further evaluation. No consolidation. ABDOMEN: Liver: The liver is enlarged with uniform decreased density consistent with hepatic steatosis. Gallbladder and bile ducts: Unremarkable. No calcified stones. No ductal dilation. Pancreas: Unremarkable. No ductal dilation. Spleen: Unremarkable. No splenomegaly. Adrenals: Unremarkable. No mass. Kidneys and ureters: Unremarkable. No obstructing stones. No hydronephrosis. Stomach and bowel: Colonic diverticulosis without evidence of acute diverticulitis. No obstruction. PELVIS: Appendix: No findings to suggest acute appendicitis. Bladder: Unremarkable. No stones. Reproductive: Unremarkable as visualized. ABDOMEN and PELVIS: Intraperitoneal space: Small foci is punctate free air is seen at the gastronomy tube site. No significant fluid collection. Bones/joints: Mild degenerative changes are seen within the spine and hips. No acute fracture. No dislocation. Soft tissues: Bilateral breast prostheses are in place. Vasculature: Unremarkable. No abdominal aortic aneurysm. Lymph nodes: Unremarkable. No enlarged lymph nodes. Tubes, lines and devices: Percutaneous gastrostomy tube is in place. Other findings: No evidence of extraluminal contrast material. IMPRESSION: 1. Expected changes of a percutaneous gastrostomy tube placement without evidence of extraluminal contrast material. 2. No acute intra-abdominal or pelvic findings.
[2024-03-22] MEDS ORDERED: NALOXONE 0.4 MG/ML 1 ML VIAL IV PRN (06:27)
[2024-03-22] MEDS: SODIUM CHLORIDE 0.9% 1,000 ML IV SCH (09:38)
[2024-03-22] MEDS: ONDANSETRON 4 MG/2 ML VIAL IVP PRN (09:39)
[2024-03-22] MEDS: HYDROmorphone 1 MG/ML 1 ML SYRINGE IVP PRN (09:43)
[2024-03-22] MEDS: PANTOPRAZOLE 40 MG/10 ML VIAL IVP SCH (09:48)
[2024-03-22] MEDS: diphenhydrAMINE 50 MG/ML 1 ML VIAL IVP PRN (11:08)
--- NOTE | 2024-03-22 11:46 | P.GSCN ---
History of Present Illness Consult date: 03/22/24 History of present illness: CHIEF COMPLAINT: Abdominal pain HISTORY OF PRESENT ILLNESS: This is a 53-year-old female with a known history of multiple sclerosis and gastroparesis. Patient had a recent hospitalization at [facility] for the past 10 days due to nausea and poor oral intake. She had a GJ tube placed by the IR service at [facility] yesterday. Patient reports after the procedure she was having significant abdominal pain. She reports that her pain was not controlled and therefore she left AGAINST MEDICAL ADVICE and proceeded to to [facility] for pain management. Patient had a CT scan abdomen pelvis that reports that the GJ tube is in correct position. Dietitian is currently on consult for tube feeds. Patient also has a known h istory of sarcoidosis and receives infusions at [facility]. The at bedside reports that her prior port that was placed about 4 years ago there were concerns for possible infection at the port site. And it was removed about a month ago. Per the repeat blood cultures have all been negative. And now consult has been placed for a new port to be inserted. Patient seen in the ER and continues to report abdominal pain. Nursing staff will be administering pain medication. Patient also complaining of nausea and heartburn symptoms. Surgical consult requested for port placement. PAST MEDICAL HISTORY: See below PAST SURGICAL HISTORY: See below MEDICATIONS: See below ALLERGIES: See below SOCIAL HISTORY: No illicit drug use. REVIEW OF SYSTEMS: CONSTITUTIONAL: Denies fever or chills. HEENT: Denies blurred vision, vision changes, or eye pain. Denies hemoptysis CARDIOVASCULAR: Denies chest pain or pressure. RESPIRATORY: No shortness of breath. GASTROINTESTINAL: See HPI for pertinent findings HEMATOLOGIC: Denies bleeding disorders. GENITOURINARY: Denies any blood in urine or increased urinary frequency. SKIN: Denies pruitis. Denies rash. PHYSICAL EXAM: VITAL SIGNS: Reviewed GENERAL: Well-developed in no acute distress. HEENT: No sclera icterus. Extraocular movements grossly intact. Moist buccal mucosa. Head is atraumatic, normocephalic. No nasal drainage. ABDOMEN: Soft. Obese. Nondistended. Mild tenderness around GJ tube site. Area is clean dry and intact. Patient has pain pump on the right side of the abdomen NEUROLOGIC: Alert and oriented. Cranial nerves II through XII grossly intact. LABORATORY DATA: WBC is 7.9 Hgb 12.4 platelets 253 Sodium 137 potassium is 4.8 creatinine 0.93 Lactic acid 1.3 LFTs normal IMAGING: CT scan abdomen pelvis reports expected changes of percutaneous gastrostomy tube placement without evidence of extraluminal contrast material. No acute intra- abdominal or pelvic findings ASSESSMENT: 1. History of sarcoidosis with removal of prior Mediport due to concerns for possible infection. 2. Abdominal pain 3. Recent GJ tube placement by IR service yesterday due to history of gastroparesis PLAN: -Further recommendations forthcoming per surgeon. But anticipate that the Mediport will be placed at a later date once her acute medical issues are addressed. Physician Exec. Creative Director note has been reviewed by physician. Signing provider agrees with the documented findings, assessment, and plan of care. I have personally seen and examined the patient, reviewed the POLYSOMNOGRAPH TECH /PAs history, exam and MDM and agree with the assessment and plan as written. Based on total visit time, I have performed more than 50% of the visit. As above: Patient with a complicated medical history. Recently hospitalized at [facility]. Patient apparently was frustrated with her care and left AGAINST MEDICAL ADVICE soon after a percutaneous GJ tube was placed by interventional radiology per patient. Trying to obtain old records. Patient had a CAT scan showing no evidence of extravasation. A tiny sliver of pneumoperitoneum adjacent to the insertion site is noted. No inflammatory changes identified. May gradually initiate tube feeds at a low volume. Recommend starting at 10 cc/h. Monitor the patient's discomforts. Patient apparently needs a Port-A-Cath at some point. This will be performed at some point in the future. Patient does not want that placed currently. Past Medical History Past Medical History: Asthma, Diabetes Mellitus, GERD/Reflux, Musculoskeletal Disorder, Neurologic Disorder, Sleep Apnea/CPAP/BIPAP, Thyroid Disorder Additional Past Medical History / Comment(s): MS, back pain, DDD, optic neuritis, Gastroparesis., C-Diff (June 2018) leukopenia (sores in mouth) migraines, sleep apnea due to M.S. (no machine), sarcoidosis, cyst in stomach. , hopitalized 10/04/19 after lumbar puncture because heart rate dropped, hospitalized 10/10/19 for headache (post l.p.), states allergy to all adhesive and needs benadryl IV 50mg prior to using tape or tegaderm etc. History of Any Multi-Drug Resistant Organisms: C-DIFF Year Discovered:: 2018 MDRO Source:: stool Past Surgical History: Bladder Surgery, Breast Surgery, Hernia Repair, Hysterectomy, Orthopedic Surgery, Tubal Ligation Additional Past Surgical History / Comment(s): rhinoplasty, bladder suspension, breast sx, morphine pump, RT KNEE SCOPE, TUMMY TUCK, Spinal cord stimulator inserted and removed. port august 2019, gastroparesis botox and EGD 11/06/2019, breast implants, gastric surgery (g-poem) 05/05/20, Stent placed on kidney, hernia repair X2 Past Anesthesia/Blood Transfusion Reactions: Motion Sickness, Postoperative Nausea & Vomiting (PONV) Past Psychological History: No Psychological Hx Reported Smoking Status: Never smoker Past Alcohol Use History: Occasional Past Drug Use History: None Reported - Past Family History Father History Unknown: Yes Family Medical History: No Reported History Additional Family Medical History / Comment(s): . Mother History Unknown: Yes Family Medical History: No Reported History Additional Family Medical History / Comment(s): NO FAMILY HISTORY Medications and Allergies Home Medications Medication Instructions Recorded Confirmed Type DULoxetine HCL [Cymbalta] 60 mg PO DAILY 01/10/17 09/06/23 History metFORMIN HCL [Glucophage] 500 mg PO BID #60 tab 02/10/18 09/06/23 Rx Levothyroxine Sodium [Synthroid] 112 mcg PO DAILY 12/05/18 09/06/23 History rOPINIRole HCL [Requip] 2 mg PO TID 12/05/18 09/06/23 History Baclofen 10 mg PO TID 04/29/19 09/06/23 History Ondansetron Odt [Zofran ODT] 8 mg PO DAILY PRN 11/13/19 09/06/23 History Gabapentin [Neurontin] 100 mg PO TID 05/10/20 09/06/23 History Pantoprazole Sodium [Protonix] 40 mg PO BID 05/10/20 09/06/23 History SUMAtriptan succinate 6 mg SQ BID PRN 05/10/20 09/06/23 History methocarbamoL [Robaxin] 500 mg PO TID 05/10/20 09/06/23 History Infliximab-Dyyb [Inflectra] 1 dose IV Q42D 05/23/20 09/06/23 History oxyCODONE-APAP 10-325MG [Percocet 1 tab PO BID PRN 04/17/22 09/06/23 History 10-325 mg] ALPRAZolam [Xanax] 0.25 mg PO BID 11/05/22 09/06/23 History Albuterol Inhaler [Ventolin Hfa 2 puff INHALATION RT-Q6H PRN 11/05/22 09/06/23 History Inhaler] Albuterol Nebulized [Ventolin 2.5 mg INHALATION RT-QID PRN 07/12/23 09/06/23 History Nebulized] Patient Own Pump 0 bag 09/06/23 History Allergies Allergy/AdvReac Type Severity Reaction Status Date / Time adhesive Allergy Severe Rash/Hives Verified 03/21/24 22:00 adhesive tape Allergy Severe Rash/Hives Verified 03/21/24 22:00 fentanyl Allergy Severe Rash/Hives Verified 03/21/24 22:00 from patch only latex Allergy Severe Rash/Hives Verified 03/21/24 22:00 metoclopramide [From Reglan] Allergy dystonia Verified 03/21/24 22:00 from IV Reglan prochlorperazine Allergy dystonia Verified 03/21/24 22:00 [From Compazine] Surgical - Exam Vital Signs Temp Pulse Resp BP Pulse Ox 97.5 F L 99 20 134/90 97 03/21/24 21:55 03/21/24 21:55 03/21/24 21:55 03/21/24 21:55 03/21/24 21:55 Results - Labs 03/22/24 01:01 03/22/24 01:01 Abnormal Lab Results - Last 24 Hours (Table) 03/22/24 Range/Units 01:01 BUN 18 H (7-17) mg/dL Glucose 110 H (74-99) mg/dL Lipase 20 L (23-300) U/L Diabetes panel 03/22/24 Range/Units 01:01 Sodium 137 (137-145) mmol/L Potassium 4.8 (3.5-5.1) mmol/L Chloride 104 (98-107) mmol/L Carbon Dioxide 28 (22-30) mmol/L BUN 18 H (7-17) mg/dL Creatinine 0.93 (0.52-1.04) mg/dL Glucose 110 H (74-99) mg/dL Calcium 9.3 (8.4-10.2) mg/dL AST 26 (14-36) U/L ALT 16 (4-34) U/L Alkaline Phosphatase 66 (38-126) U/L Total Protein 7.3 (6.3-8.2) g/dL Albumin 4.2 (3.5-5.0) g/dL Calcium panel 03/22/24 Range/Units 01:01 Calcium 9.3 (8.4-10.2) mg/dL Albumin 4.2 (3.5-5.0) g/dL Pituitary panel 03/22/24 Range/Units 01:01 Sodium 137 (137-145) mmol/L Potassium 4.8 (3.5-5.1) mmol/L Chloride 104 (98-107) mmol/L Carbon Dioxide 28 (22-30) mmol/L BUN 18 H (7-17) mg/dL Creatinine 0.93 (0.52-1.04) mg/dL Glucose 110 H (74-99) mg/dL Calcium 9.3 (8.4-10.2) mg/dL Adrenal panel 03/22/24 Range/Units 01:01 Sodium 137 (137-145) mmol/L Potassium 4.8 (3.5-5.1) mmol/L Chloride 104 (98-107) mmol/L Carbon Dioxide 28 (22-30) mmol/L BUN 18 H (7-17) mg/dL Creatinine 0.93 (0.52-1.04) mg/dL Glucose 110 H (74-99) mg/dL Calcium 9.3 (8.4-10.2) mg/dL Total Bilirubin 0.8 (0.2-1.3) mg/dL AST 26 (14-36) U/L ALT 16 (4-34) U/L Alkaline Phosphatase 66 (38-126) U/L Total Protein 7.3 (6.3-8.2) g/dL Albumin 4.2 (3.5-5.0) g/dL
[2024-03-22 12:28] LABS: Prothrombin Time 10.8 sec (10.0-12.5)
[2024-03-22 12:34] LABS: Partial Thromboplastin Time 20.8 sec (22.0-30.0)
[2024-03-22] MEDS: KETOROLAC 15 MG/ML 1 ML VIAL IVP SCH (12:49)
[2024-03-22] MEDS: IPRATROPIUM-ALBUTEROL 3 ML NEB INHALATION SCH (12:54)
[2024-03-22] MEDS: BACLOFEN 10 MG TAB PO SCH (15:11)
[2024-03-22] MEDS: methocarbamoL 500 MG TAB PO SCH (15:12)
[2024-03-22] MEDS: GABAPENTIN 100 MG CAP PO SCH (15:12)
[2024-03-22] MEDS: ALPRAZolam 0.25 MG TAB PO SCH (20:22)
[2024-03-22] MEDS: LORazepam 2 MG/ML INJ IV PRN (21:03)
[2024-03-22] MEDS: GABAPENTIN 300 MG CAP PO SCH (21:07)
[2024-03-22] MEDS: INSULIN ASPART (NovoLOG) 100 UNIT/ML VIAL SQ SCH (21:56)
--- NOTE | 2024-03-22 22:17 | P.CONS ---
History of Present Illness - Reason for Consult Consult date: 03/22/24 Recent fungal infection Requesting physician: Sean Wynne - Chief Complaint Abdominal pain x 1 day - History of Present Illness Patient is a 53-year-old female with a past medical history significant for diabetes mellitus reflux sleep apnea apparently the patient recently did have a positive blood culture with yeast which was possibly related to Mediport which was subsequently discontinued patient has completed her antifungal therapy and mention she did have a 3 or 4 blood culture subsequently those has been negative patient did have a significant diabetic gastroparesis with multiple episode of vomiting and recently did have a jejunostomy tube placement at [facility] afterwards the patient is signed out as she mentioned she was not getting her pain medication patient subsequently presented to [facility] on for further care post tube placement patient on presentation to the hospital was afebrile and had no fever have been recorded subsequently patient was not tachycardic hypotensive or hypoxic patient did have normal white count 7.9 creatinine 0.93 electrolyte has been normal liver enzymes are normal patient did have abdominal pelvis CT expected changes of her percutaneous gastrotomy tube placement without evidence for extraluminal contrast material no acute findings infectious disease was consulted regarding recent fungal infection Review of Systems Positive point and negatives has been mentioned in the HPI, complete review of systems was performed and all other systems are negative Past Medical History Past Medical History: Asthma, Diabetes Mellitus, GERD/Reflux, Musculoskeletal Disorder, Neurologic Disorder, Sleep Apnea/CPAP/BIPAP, Thyroid Disorder Additional Past Medical History / Comment(s): MS, back pain, DDD, optic neuritis, Gastroparesis., C-Diff (June 2018) leukopenia (sores in mouth) migraines, sleep apnea due to M.S. (no machine), sarcoidosis, cyst in stomach. , hopitalized 10/04/19 after lumbar puncture because heart rate dropped, hospitalized 10/10/19 for headache (post l.p.), states allergy to all adhesive and needs benadryl IV 50mg prior to using tape or tegaderm etc. History of Any Multi-Drug Resistant Organisms: C-DIFF Year Discovered:: 2018 MDRO Source:: stool Past Surgical History: Bladder Surgery, Breast Surgery, Hernia Repair, Hysterectomy, Orthopedic Surgery, Tubal Ligation Additional Past Surgical History / Comment(s): rhinoplasty, bladder suspension, breast sx, morphine pump, RT KNEE SCOPE, TUMMY TUCK, Spinal cord stimulator inserted and removed. port august 2019, gastroparesis botox and EGD 11/06/2019, breast implants, gastric surgery (g-poem) 05/05/20, Stent placed on kidney, hernia repair X2 Past Anesthesia/Blood Transfusion Reactions: Motion Sickness, Postoperative Nausea & Vomiting (PONV) Past Psychological History: No Psychological Hx Reported Smoking Status: Never smoker Past Alcohol Use History: Occasional Past Drug Use History: None Reported - Past Family History Father History Unknown: Yes Family Medical History: No Reported History Additional Family Medical History / Comment(s): . Mother History Unknown: Yes Family Medical History: No Reported History Additional Family Medical History / Comment(s): NO FAMILY HISTORY Medications and Allergies Home Medications Medication Instructions Recorded Confirmed Type DULoxetine HCL [Cymbalta] 60 mg PO DAILY 01/10/17 03/22/24 History metFORMIN HCL [Glucophage] 500 mg PO BID #60 tab 02/10/18 03/22/24 Rx Levothyroxine Sodium [Synthroid] 112 mcg PO DAILY 12/05/18 03/22/24 History rOPINIRole HCL [Requip] 2 mg PO TID 12/05/18 03/22/24 History Baclofen 10 mg PO TID 04/29/19 03/22/24 History Ondansetron Odt [Zofran ODT] 8 mg PO DAILY PRN 11/13/19 03/22/24 History Pantoprazole Sodium [Protonix] 40 mg PO BID 05/10/20 03/22/24 History SUMAtriptan succinate 6 mg SQ BID PRN 05/10/20 03/22/24 History methocarbamoL [Robaxin] 500 mg PO TID 05/10/20 03/22/24 History Infliximab-Dyyb [Inflectra] 1 dose IV Q42D 05/23/20 03/22/24 History ALPRAZolam [Xanax] 0.25 mg PO BID 11/05/22 03/22/24 History Albuterol Inhaler [Ventolin Hfa 2 puff INHALATION RT-Q6H PRN 11/05/22 03/22/24 History Inhaler] Albuterol Nebulized [Ventolin 2.5 mg INHALATION RT-QID PRN 07/12/23 03/22/24 History Nebulized] Patient Own Pump 0 bag 06/05/24 History Gabapentin 300 mg PO TID 03/22/24 03/22/24 History oxyCODONE-APAP 10-325MG [Percocet 1 tab PO BID PRN 7 Days #14 tab 03/25/24 Rx 10-325 mg] Allergies Allergy/AdvReac Type Severity Reaction Status Date / Time adhesive Allergy Severe Rash/Hives Verified 03/31/24 21:05 adhesive tape Allergy Severe Rash/Hives Verified 03/31/24 21:05 fentanyl Allergy Severe Rash/Hives Verified 03/31/24 21:05 from patch only latex Allergy Severe Rash/Hives Verified 03/31/24 21:05 metoclopramide [From Reglan] Allergy dystonia Verified 03/31/24 21:05 from IV Reglan prochlorperazine Allergy dystonia Verified 03/31/24 21:05 [From Compazine] Physical Exam Vitals: Vital Signs Temp Pulse Resp BP Pulse Ox 03/22/24 11:14 16 03/22/24 10:13 16 03/22/24 09:40 85 17 125/60 100 03/22/24 08:59 99.4 F 89 18 128/75 93 L 03/22/24 08:20 17 03/22/24 04:58 78 17 118/75 94 L 03/21/24 21:55 97.5 F L 99 20 134/90 97 Intake and Output 03/21/24 03/22/24 03/22/24 22:59 06:59 14:59 Other: Weight 104.326 kg 104.326 kg GENERAL DESCRIPTION: Middle-aged female lying in bed, no distress. No tachypnea or accessory muscle of respiration use. HEENT: Shows Pallor , no scleral icterus. Oral mucous membrane is dry. NECK: Trachea central, no thyromegaly. LUNGS: Unlabored breathing. Clear to auscultation anteriorly. No wheeze or crackle. HEART: S1, S2, regular rate and rhythm. No loud murmur ABDOMEN: Soft, mild tenderness EXTREMITIES: No edema of feet. SKIN: No rash, no masses palpable. NEUROLOGICAL: The patient is awake, alert, oriented x3, mood and affect normal. Results CBC & Chem 7: 03/30/24 07:01 03/30/24 07:01 Labs: Abnormal Lab Results - Last 24 Hours (Table) 03/22/24 Range/Units 01:01 BUN 18 H (7-17) mg/dL Glucose 110 H (74-99) mg/dL Lipase 20 L (23-300) U/L Assessment and Plan (1) Chronic pain Status: Acute Code(s): G89.29 - OTHER CHRONIC PAIN SNOMED Code(s): 17197770 Plan: 1patient apparently recently did have positive blood culture with Abby back in December 2023 as reported by the patient as it was not at this facility patient mention she has completed her antifungal therapy and subsequently did h ave 3 or 4 blood culture which has been negative patient now has been admitted to the hospital post gastrotomy tube placement at outside facility as she did not like the care at that facility patient not running any fever white count has been normal did have a CT abdominal pelvis did not show any acute changes, clinically no obvious signs and symptoms of ongoing fungal infection 2-patient has been offered repeat blood culture to make sure no evidence of any candidemia however the patient has refused ID service will sign off please call back if any question regarding her infectious disease care Thank you for this consultation Time with Patient: Greater than 30
--- NOTE | 2024-03-23 02:43 | HP ---
HISTORY AND PHYSICAL HISTORY OF PRESENT ILLNESS: A 53-year-old female with , gastroparesis, had a PEG tube placed 24 hours ago. She is not getting enough pain control. She wants to get some medical advice due to noncompliance and nursing. She was started on tube feedings . Pain control. We will get GI and surgical consult. She also wants a port placed port placed in her shoulder. PAST MEDICAL HISTORY: See old chart. SOCIAL HISTORY: See old chart. MEDICATIONS: See list. ALLERGIES: See list. SOCIAL HISTORY: No drug use. REVIEW OF SYSTEMS: A 14-point review of systems otherwise negative. PHYSICAL EXAMINATION: RICA SIGNS: Reviewed. HEENT: Normocephalic, atraumatic. CARDIOVASCULAR: S1, S2. LUNGS: Transmitted upper sounds. ABDOMEN: Soft, nontender. PSYCH: Fair mood and affect. LABORATORY DATA: White count 7.9, hemoglobin is 12.4, platelets 253. Sodium 137, potassium 4.8, creatinine 0.93. Lactic acid 1.3. LFTs are normal. CT abdomen and pelvis shows percutaneous gastrostomy tube placement done 1 day ago by Radiology at [facility]. ASSESSMENT AND PLAN: History of sarcoidosis, removal of prior MediPort due to concerns for possible infection. Cultures were negative of the port itself, gastroparesis, esophageal dysmobility. GI tube was placed. We will get dietary to advance the feedings. Pain control. Consults were done. Further recommendations for surgery, possible port placement. Please see further orders. MMODL / IJN: [id number] /
[2024-03-23] MEDS: LEVOTHYROXINE 112 MCG TAB PO SCH (05:48)
[2024-03-23 06:13] LABS: Glucose,Whole Blood 106 mg/dL (70-110)
[2024-03-23] MEDS ORDERED: INSULIN ASPART (NovoLOG) 100 UNIT/ML VIAL SQ SCH (07:30)
[2024-03-23] MEDS: DULoxetine HCL 60 MG CAPSULE.DR PO SCH (08:55)
--- NOTE | 2024-03-23 10:15 | P.PN ---
Subjective Progress Note Date: 03/23/24 NAEON. No F/C. No SOB or CP. No headache or blurry vision. Tolerating diet without issue. Ambulatory. Objective - Vital Signs Vital signs: Vital Signs Temp 98.4 F 03/23/24 07:17 Pulse 77 03/23/24 07:17 Resp 17 03/23/24 07:17 BP 103/70 03/23/24 07:17 Pulse Ox 93 L 03/23/24 07:17 FiO2 Intake & Output 03/22/24 03/23/24 03/23/24 18:59 06:59 18:59 Weight 104.326 kg 104.5 kg - Exam Gen: AxO, NAD Pulm: non-labored respirations Abd: soft, non-tender non-distended. No guarding/rebound/rigidity Extrem: no edema seen - Labs CBC & Chem 7: 03/22/24 01:01 03/22/24 01:01 Labs: Abnormal Lab Results - Last 24 Hours (Table) 03/22/24 Range/Units 11:27 APTT 20.8 L (22.0-30.0) sec Assessment and Plan Assessment: Patient is a 53 year old female with a PMH of sarcoidosis with prior mediport placement and removal for infection for whom general surgery is consulted for mediport replacement. Plan: -TF as tolerated -PRN pain and nausea control -DVT/GI PPx -Encourage ambulation -Will discuss mediport placement with staff surgeon; no acute surgical intervention at this time Gerardo Ramos M.D. General Surgery
[2024-03-23 10:40] LABS: Basophils # (A) 0.04 X 10*3/uL (0.00-0.10); Basophils % (A) 0.8 %; Eosinophils # (A) 0.67 X 10*3/uL (0.04-0.35); Eosinophils % (A) 13.1 %; HCT 31.6 % (37.2-46.3); HGB 9.8 g/dL (12.0-15.0); Lymphocytes % (A) 40.9 %; MCH 27.8 pg (27.0-32.0); MCV 89.5 FL (80.0-97.0); Mean Platelet Volume 9.6 FL (9.5-12.2); Monocytes # (A) 0.56 X 10*3/uL (0.20-1.00); Monocytes % (A) 10.9 %; NRBC Per 100 WBC 0 X 10*3/uL (0.00-0.01); Neutrophils # (A) 1.75 X 10*3/uL (1.80-7.70); Neutrophils % (A) 34.1 %; Platelet Count 205 X 10*3/uL (140-440); RBC 3.53 X 10*6/uL (4.10-5.20); RDW 13.2 % (11.5-14.5); WBC 5.13 X 10*3/uL (4.50-10.00)
[2024-03-23 10:59] LABS: ALT 11 U/L (8-44); AST 20 U/L (13-35); Albumin 3.2 g/dL (3.8-4.9); Alkaline Phosphatase 55 U/L (41-126); BUN/Creat Ratio 15.88 Ratio (12.00-20.00); Blood Urea Nitrogen 12.7 mg/dL (9.0-27.0); Calcium 8.4 mg/dL (8.7-10.3); Carbon Dioxide 25.3 mmol/L (21.6-31.8); Chloride 106 mmol/L (96-109); Glucose 101 mg/dL (70-110); Potassium 4.3 mmol/L (3.5-5.5); Sodium 140 mmol/L (135-145); Total Bilirubin 0.4 mg/dL (0.3-1.2); Total Protein 5.2 g/dL (6.2-8.2)
[2024-03-23 11:18] LABS: Glucose,Whole Blood 101 mg/dL (70-110)
[2024-03-23 16:26] LABS: Glucose,Whole Blood 117 mg/dL (70-110)
[2024-03-23 21:49] LABS: Glucose,Whole Blood 98 mg/dL (70-110)
--- NOTE | 2024-03-24 00:55 | PN ---
PROGRESS NOTE SUBJECTIVE: 53-year-old white female, had a PEG tube for severe gastroparesis. She had signed out at the other hospital, came back to this hospital, had multiple interactions over her medications today as well as drinking liquids and soft foods with her tube feeding, which was all explained to her. Surgery has seen her. OBJECTIVE: Temp 98.6, pulse 76, respiratory rate 14 to 16, she is saturating 91% on 3 L, blood pressure 96/62. LABORATORY DATA: White count is 5.13, hemoglobin is 9.8. Sodium 140, potassium 4.3, creatinine 0.8, BUN is 12.7, albumin is 3.2. She is a bit more agitated today. She is at 91% on 3 L. We are going to do a CAT scan, make sure she has no pleural effusion post Radiology placement of the PEG tube. PROGNOSIS: Guarded. Please see further orders. Continue home medicines as mentioned and advance tube feedings as tolerated. Rule out aspiration pneumonia. MMODL / IJN: [id number] /
[2024-03-24 07:04] LABS: Glucose,Whole Blood 103 mg/dL (70-110)
[2024-03-24 07:43] LABS: Basophils % (A) 1 %; Eosinophils # (A) 0.5 k/uL (0-0.7); Eosinophils % (A) 8 %; HGB 10.3 gm/dL (11.4-16.0); Lymphocytes # (A) 2.1 k/uL (1.0-4.8); Lymphocytes % (A) 37 %; MCH 28.5 pg (25.0-35.0); MCHC 33.1 g/dL (31.0-37.0); Mean Platelet Volume 7.6; Monocytes # (A) 0.3 k/uL (0-1.0); Monocytes % (A) 6 %; Neutrophils # (A) 2.6 k/uL (1.3-7.7); Neutrophils % (A) 46 %; Platelet Count 216 k/uL (150-450); RBC 3.61 m/uL (3.80-5.40); RDW 13.9 % (11.5-15.5); WBC 5.6 k/uL (3.8-10.6)
[2024-03-24 07:45] LABS: ALT 13 U/L (4-34); AST 23 U/L (14-36); African American GFR (CKD) 88 (>60 ml/min/1.73 sqM); Albumin 3.3 g/dL (3.5-5.0); Albumin/Globulin Ratio 1.3; Alkaline Phosphatase 56 U/L (38-126); Anion Gap 5 mmol/L; Blood Urea Nitrogen 11 mg/dL (7-17); Calcium 8.9 mg/dL (8.4-10.2); Carbon Dioxide 29 mmol/L (22-30); Chloride 103 mmol/L (98-107); Globulin 2.5 g/dL; Glucose 91 mg/dL (74-99); Non-African American GFR(CKD) 76 (>60 ml/min/1.73 sqM); Potassium 4.2 mmol/L (3.5-5.1); Sodium 137 mmol/L (137-145); Total Bilirubin 0.5 mg/dL (0.2-1.3); Total Protein 5.8 g/dL (6.3-8.2)
--- NOTE | 2024-03-24 09:31 | CT ---
EXAMINATION TYPE: CT chest wo con DATE OF EXAM: 03/24/2024 COMPARISON: CTA thorax dated 07/13/2023 CLINICAL INDICATION: Female, 53 years old with history of aspiration; PHH, aspiration TECHNIQUE: CT scan of the thorax is performed without IV contrast. CT DLP: 697.[address] CTDI: mGy Automated exposure control for dose reduction was used. FINDINGS: There is been interval development of a 7 mm ill-defined nodular density in the right upper lobe. The re is been interval development of ill-defined consolidative/nodular opacity in the right upper lobe measures approximately 2.2 x 1.4 mm. There is been interval development of mild interstitial opacity with subpleural parenchymal consolidation in the left lung base. The findings could represent an acut e bilateral inflammatory process. Neoplasm in the right upper lobe is not excluded and short-term fol low-up is recommended. There is no pleural effusion or pneumothorax. There is moderate cardiomegaly. The great vessels appear normal. There is no mediastinal, hilar or ax illary adenopathy. There is a small to moderate hiatal hernia. There is an NG tube within the proximal small bowel. There are bilateral breast implants. There are no focal osseous lesions. IMPRESSION: 1. Interval development of right upper lobe and left lower lobe opacities possibly indicating acute i nflammatory processes. Neoplasm is not excluded in the right upper lobe and short-term follow-up is r ecommended. The findings in the left lower lobe could be secondary to aspiration which is the provide d history. 2. Moderate cardiomegaly. 3. Small hiatal hernia. [facility], , 03/24/2024 9:28 AM
--- NOTE | 2024-03-24 10:43 | P.CNPUL ---
History of Present Illness Consult date: 03/24/24 Reason for consult: dyspnea, abnormal CXR/CT Chief complaint: Abdominal pain History of present illness: 51-year-old female admitted into hospital with abdominal pain of note that patient signed out AMA 1 hour prior to admission/arrival emergency department, reaching home patient started having abdominal pain PMD advised to go back to emergency department for evaluation. On arrival patient was afebrile but tachypneic and tachycardic labs including CBC and chemistry fairly unremarkable, CT scan of the abdomen pelvis at admission small amount of free air seen at gastrostomy site no fluid collection no other acute finding noted, CT scan of the chest done right upper lobe small subcentimeter nodules are seen the largest is about 6 mm size few mediastinal hilar lymph node also seen final report is pending. Of note that patient had prior CT scan of the chest done in July 2023 right upper lobe nodules were seen at that time as well however appear to be smaller in size about 3 to 4 mm, patient currently managed with pain control anxiety control along with bronchodilators continuation of her home medicines an d has been gently rehydrated Well-known to me for pulmonary sarcoidosis and systemic sarcoidosis in remission as well calcified lymph node, chronic pain syndrome, generalized anxiety disorder, history of chronic intermittent intractable nausea and vomiting, restless leg syndrome, hypothyroidism, peripheral neuropathy, peptic ulcer disease, chronic migraine headaches, COPD, chronic intermittent asthma, type 2 diabetes mellitus, sleep disordered breathing and sleep apnea, multiple sclerosis with history of optic neuritis and gastroparesis, history of C. difficile colitis also recent history of fungemia thought to be related to port, patient on long-term antifungal by infectious disease, finish therapy Review of Systems All systems: negative Past Medical History Past Medical History: Asthma, Diabetes Mellitus, GERD/Reflux, Musculoskeletal Disorder, Neurologic Disorder, Sleep Apnea/CPAP/BIPAP, Thyroid Disorder Additional Past Medical History / Comment(s): MS, back pain, DDD, optic ne uritis, Gastroparesis., C-Diff (June 2018) leukopenia (sores in mouth) migraines, sleep apnea due to M.S. (no machine), sarcoidosis, cyst in stomach. , hopitalized 10/04/19 after lumbar puncture because heart rate dropped, hospitalized 10/10/19 for headache (post l.p.), states allergy to all adhesive and needs benadryl IV 50mg prior to using tape or tegaderm etc. History of Any Multi-Drug Resistant Organisms: C-DIFF Date of last positivie culture/infection: 2018 MDRO Source:: stool Past Surgical History: Bladder Surgery, Breast Surgery, Hernia Repair, Hysterectomy, Orthopedic Surgery, Tubal Ligation Additional Past Surgical History / Comment(s): rhinoplasty, bladder suspension, breast sx, morphine pump, RT KNEE SCOPE, TUMMY TUCK, Spinal cord stimulator inserted and removed. port august 2019, gastroparesis botox and EGD 11/06/2019, breast implants, gastric surgery (g-poem) 05/05/20, Stent placed on kidney, hernia repair X2 Past Anesthesia/Blood Transfusion Reactions: Motion Sickness, Postoperative Nausea & Vomiting (PONV) Past Psychological History: No Psychological Hx Reported Additional Psychological History / Comment(s): . Smoking Status: Never smoker Past Alcohol Use History: Occasional Past Drug Use History: None Reported - Past Family History Father History Unknown: Yes Family Medical History: No Reported History Additional Family Medical History / Comment(s): . Mother History Unknown: Yes Family Medical History: No Reported History Additional Family Medical History / Comment(s): NO FAMILY HISTORY Medications and Allergies Home Medications Medication Instructions Recorded Confirmed Type DULoxetine HCL [Cymbalta] 60 mg PO DAILY 01/10/17 03/22/24 History metFORMIN HCL [Glucophage] 500 mg PO BID #60 tab 02/10/18 03/22/24 Rx Levothyroxine Sodium [Synthroid] 112 mcg PO DAILY 12/05/18 03/22/24 History rOPINIRole HCL [Requip] 2 mg PO TID 12/05/18 03/22/24 History Baclofen 10 mg PO TID 04/29/19 03/22/24 History Ondansetron Odt [Zofran ODT] 8 mg PO DAILY PRN 11/13/19 03/22/24 History Pantoprazole Sodium [Protonix] 40 mg PO BID 05/10/20 03/22/24 History SUMAtriptan succinate 6 mg SQ BID PRN 05/10/20 03/22/24 History methocarbamoL [Robaxin] 500 mg PO TID 05/10/20 03/22/24 History Infliximab-Dyyb [Inflectra] 1 dose IV Q42D 05/23/20 03/22/24 History oxyCODONE-APAP 10-325MG [Percocet 1 tab PO BID PRN 04/17/22 03/22/24 History 10-325 mg] ALPRAZolam [Xanax] 0.25 mg PO BID 11/05/22 03/22/24 History Albuterol Inhaler [Ventolin Hfa 2 puff INHALATION RT-Q6H PRN 11/05/22 03/22/24 History Inhaler] Albuterol Nebulized [Ventolin 2.5 mg INHALATION RT-QID PRN 07/12/23 03/22/24 History Nebulized] Patient Own Pump 0 bag 09/06/23 History Gabapentin 300 mg PO TID 03/22/24 03/22/24 History Allergies Allergy/AdvReac Type Severity Reaction Status Date / Time adhesive Allergy Severe Rash/Hives Verified 03/22/24 18:03 adhesive tape Allergy Severe Rash/Hives Verified 03/22/24 18:03 fentanyl Allergy Severe Rash/Hives Verified 03/22/24 18:03 from patch only latex Allergy Severe Rash/Hives Verified 03/22/24 18:03 metoclopramide [From Reglan] Allergy dystonia Verified 03/22/24 18:03 from IV Reglan prochlorperazine Allergy dystonia Verified 03/22/24 18:03 [From Compazine] Physical Exam Vitals: Vital Signs Temp Pulse Resp BP BP Pulse Ox 03/24/24 06:50 98.3 F 76 17 95/54 91 L 03/23/24 20:00 98.6 F 76 14 96/62 91 L 03/23/24 12:29 98.8 F 73 17 112/69 95 Intake and Output 03/23/24 03/24/24 03/24/24 22:59 06:59 14:59 Other: Voiding Method Toilet # Voids 2 Weight 103 kg - Constitutional General appearance: disheveled, morbidly obese, no acute distress - EENT Eyes: EOMI, PERRLA Ears: bilateral: normal - Neck Neck: normal ROM Carotids: bilateral: upstroke normal Thyroid: bilateral: normal size - Respiratory Respiratory: bilateral: CTA - Cardiovascular Rhythm: regular Heart sounds: normal: S1, S2 - Gastrointestinal General gastrointestinal: normal bowel sounds - Integumentary Integumentary: normal turgor - Neurologic Neurologic: CNII-XII intact - Musculoskeletal Musculoskeletal: gait normal, generalized weakness, strength equal bilaterally - Psychiatric Psychiatric: A&O x's 3, appropriate affect, intact judgment & insight Results - Laboratory Findings CBC and BMP: 03/24/24 06:21 03/24/24 06:21 PT/INR, D-dimer PT 10.8 sec (10.0-12.5) 03/22/24 11: INR 1.0 (<1.2) 03/22/24 11:27 Abnormal lab findings: Abnormal Labs 03/22/24 03/22/24 03/23/24 01:01 11:27 06:47 RBC 3.53 L Hgb 9.8 L Hct 31.6 L MCHC 31.0 L Neutrophils # 1.75 L Eosinophils # 0.67 H APTT 20.8 L BUN 18 H Glucose 110 H POC Glucose (mg/dL) Calcium Total Protein Albumin Lipase 20 L 03/23/24 03/23/24 03/24/24 06:47 16:24 06:21 RBC 3.61 L Hgb 10.3 L Hct 31.0 L MCHC Neutrophils # Eosinophils # APTT BUN Glucose POC Glucose (mg/dL) 117 H Calcium 8.4 L Total Protein 5.2 L Albumin 3.2 L Lipase 03/24/24 06:21 RBC Hgb Hct MCHC Neutrophils # Eosinophils # APTT BUN Glucose POC Glucose (mg/dL) Calcium Total Protein 5.8 L Albumin 3.3 L Lipase Assessment and Plan Assessment: Abnormal CAT scan with multiple right upper lobe nodules were seen back in July 2023 as well History of pulmonary and systemic sarcoidosis in remission History of fungemia s/p therapy with antifungal Intractable abdominal pain primary care managing Intractable nausea and vomiting as above Protein calorie malnourishment, status post percutaneous PEG tube Plan: Overall plan is to monitor observe closely, patient will need outpatient workup and evaluation including PET scan PFTs, further recommendation pending and plan of care as per clinical response with the patient
[2024-03-24] MEDS: SODIUM CHLORIDE 0.9% 1,000 ML IV SCH (11:19)
[2024-03-24 11:50] LABS: Glucose,Whole Blood 91 mg/dL (70-110)
[2024-03-24] MEDS: AZITHROMYCIN 500 MG in SODIUM CHLORIDE 0.9% 250 ML IVPB SCH (13:15)
--- NOTE | 2024-03-24 14:44 | P.PN ---
Subjective Progress Note Date: 03/24/24 CHIEF COMPLAINT: Abdominal pain HISTORY OF PRESENT ILLNESS: The patient is a 53-year-old female admitted with a new gastrojejunostomy including poor IV access. Patient reports she is lost IV access today. She does report appropriate soreness along her gastrojejunostomy tube site. She is on Glucerna tube feeds at 20 cc/h. ROS: No fevers or chills. No new chest pain. Morbid obesity due to excess calories, BMI 34.5. PHYSICAL EXAM: VITAL SIGNS: Reviewed CONSTITUTIONAL: Well developed and in no acute distress. EYES: Conjuctivae without sclera icterus. Extraocular movements grossly intact. HEAD, EARS, NOSE, THROAT: Moist buccal mucosa. Head is atraumatic, normocephalic. Hears conversational speech. No nasal drainage. RESPIRATORY: Non-labored respirations and equal bilateral excursions. CARDIOVASCULAR: Palpable 2+ radial pulses. ABDOMEN: Gastrojejunostomy site clean dry intact without erythema or drainage. MUSCULOSKELETAL: No gross deformity of the lower extremities noted. No clubbing. No cyanosis. SKIN: Good skin turgor. Well perfused. NEUROLOGIC: Cranial nerves II through XII grossly intact. No focal or lateralizing signs. PSYCH: Appropriate affect. Alert and oriented to person, place and time. CLINICAL LABS: Reviewed. WBC and hemoglobin normal. ASSESSMENT: 1. Gastrojejunostomy status 2. Morbid obesity excess calories, BMI 34.5 3. Poor IV access PLAN: 1. She may have IV access via midline. 2. Tube feeds to goal per dietitian. Objective - Vital Signs Vital signs: Vital Signs Temp 98.9 F 03/24/24 13:48 Pulse 66 03/24/24 13:48 Resp 17 03/24/24 13:48 BP 131/78 03/24/24 13:48 Pulse Ox 94 L 03/24/24 13:48 FiO2 Intake & Output 03/23/24 03/24/24 03/24/24 18:59 06:59 18:59 Weight 103 kg Other: Voiding Method Toilet Toilet # Voids 2 - Labs CBC & Chem 7: 03/24/24 06:21 03/24/24 06:21 Labs: Abnormal Lab Results - Last 24 Hours (Table) 03/23/24 03/24/24 03/24/24 Range/Units 16:24 06:21 06:21 RBC 3.61 L (3.80-5.40) m/uL Hgb 10.3 L (11.4-16.0) gm/dL Hct 31.0 L (34.0-46.0) % POC Glucose (mg/dL) 117 H (70-110) mg/dL Total Protein 5.8 L (6.3-8.2) g/dL Albumin 3.3 L (3.5-5.0) g/dL Microbiology - Last 24 Hours (Table) 03/22/24 17:48 Urine Culture - Final Urine,Clean Catch
[2024-03-24 17:30] LABS: Glucose,Whole Blood 141 mg/dL (70-110)
[2024-03-24] MEDS: PIPERACILLIN-TAZOBACTAM 3.375 GM in SODIUM CHLORIDE 0.9% 100 ML IVPB SCH (18:43)
[2024-03-24 21:01] LABS: Glucose,Whole Blood 79 mg/dL (70-110)
--- NOTE | 2024-03-25 01:01 | PN ---
PROGRESS NOTE SUBJECTIVE: Aspiration pneumonia is found on CAT scan bilaterally. We are going to get pulmonary consult. We started her on Zosyn and azithromycin. Consult Dr. Marques. Gastroparesis is severe. She vomited once overnight. She is on very little liquids and soft foods. Rest of the tube feedings starting. OBJECTIVE: CARDIOVASCULAR: S1, S2. LUNGS: Scattered rhonchi and wheeze. HEMATOLOGY: Negative Homans. PSYCH: Fair mood and affect. Her oxygen dropped low as of last night, for which CAT scan was ordered which showed aspiration pneumonia. Saturating 94 on 3 L, 91 on room air. Blood pressure is low at 90s over 50s. Temperature 98.3, pulse 76, respiratory rate 16 to 18. Continue on broad-spectrum antibiotics. Monitor for signs of hypotension. Check orthostatic changes. PROGNOSIS: Extremely guarded. Please see further orders. MMODL / IJN: [id number] /
[2024-03-25 06:27] LABS: Glucose,Whole Blood 130 mg/dL (70-110)
--- NOTE | 2024-03-25 11:16 | P.PN ---
Subjective Progress Note Date: 03/25/24 SURGICAL PROGRESS NOTE CHIEF COMPLAINT: Abdominal pain HISTORY OF PRESENT ILLNESS: Patient reports less abdominal pain around the G J- tube site. She is tolerating the tube feeds. Tube feeds are currently at 40 mL/h. Patient complaining that her IVs keep going bad. Afebrile. WBC 5.6 PHYSICAL EXAM: VITAL SIGNS: Reviewed. GENERAL: Well-developed in no acute distress. ABDOMEN: Soft. Nondistended. Minimal tenderness to palpation around the gastrojejunostomy tube. Site is clean dry and intact. Mild dried blood noted on the dressing. NEUROLOGIC: Alert and oriented. Cranial nerves II through XII grossly intact. ASSESSMENT: 1. Status post recent gastrojejunostomy tube placement. Tolerating tube feeds 2. History of sarcoidosis PLAN: -No plans for Mediport placement during this hospitalization. Mediport will be placed outpatient -Continue tube feeds -Discussed with nursing staff patient can have midline or PICC line for IV access Physician Septic Tank Servicer note has been reviewed by physician. Signing provider agrees with the documented findings, assessment, and plan of care. I have personally seen and examined the patient, reviewed the AUTOMOTIVE REPAIR TECHNICIAN /PAs history, exam and MDM and agree with the assessment and plan as written. Based on total visit time, I have performed more than 50% of the visit. As above: Patient still complaining of a variety of different issues. States she is not happy with her care at [facility] and also is not happy with her care here during this current hospital stay. Patient requires long-term IV access for infusions. Port-A-Cath can be replaced as an outpatient. No plans for Port-A-Cath at this time. From our point of view patient should be stable for discharge as she seems to be tolerating her tube feeds well. Not sure there is a need currently for IV access. We will sign off at this point. Please recontact if needed. Objective - Vital Signs Vital signs: Vital Signs Temp 98.9 F 03/25/24 07:02 Pulse 69 03/25/24 10:22 Resp 16 03/25/24 10:22 BP 110/60 03/25/24 07:02 Pulse Ox 90 L 03/25/24 07:02 FiO2 Intake & Output 03/24/24 03/25/24 03/25/24 18:59 06:59 18:59 Weight 104.5 kg Other: Voiding Method Toilet # Voids 1 # Bowel Movements 1 - Labs CBC & Chem 7: 03/24/24 06:21 03/24/24 06:21 Labs: Abnormal Lab Results - Last 24 Hours (Table) 03/24/24 03/25/24 Range/Units 17:28 06:25 POC Glucose (mg/dL) 141 H 130 H (70-110) mg/dL
[2024-03-25 11:30] LABS: Glucose,Whole Blood 81 mg/dL (70-110)
--- NOTE | 2024-03-25 14:05 | P.PAINPG ---
Objective - Vital Signs Vital signs: Vital Signs Temp 98.9 F 03/25/24 07:02 Pulse 69 03/25/24 10:22 Resp 16 03/25/24 10:22 BP 110/60 03/25/24 07:02 Pulse Ox 90 L 03/25/24 07:02 FiO2 Intake & Output 03/24/24 03/25/24 03/25/24 18:59 06:59 18:59 Weight 104.5 kg Other: Voiding Method Toilet # Voids 1 # Bowel Movements 1 - Labs CBC & Chem 7: 03/24/24 06:21 03/24/24 06:21 Labs: Abnormal Lab Results - Last 24 Hours (Table) 03/24/24 03/25/24 Range/Units 17:28 06:25 POC Glucose (mg/dL) 141 H 130 H (70-110) mg/dL PQRS Measure Charge Sheet Comment: HISTORY OF PRESENT ILLNESS: A 53 yr old inpatient female as a referral from Dr Wynne presents today w severe LBP & abdominal pain secondary to radiculopathy for evaluation. Pt states pain level is provoked at 9 /10 in intensity, constant, localized in the lumbosacral spine, predominantly axial, achy in character without shooting pain . She has not been able to keep oral pain medicine down due to gastroparesis episode. Pain has no known provocative factors. Pain is alleviated by medications (Dilaudid 1mg IVP q4h prn), repositioning and rest . PMH: OA, Asthma, Diabetes Mellitus, GERD, JASPREET, Hypothyroidism, MS, Optic Neuritis, Migraines PSH: Bladder Surgery, Breast Surgery, Hernia Repair x2, R Knee Arthroscopy, Hysterectomy, Renal Stent, Tubal Ligation, Tummy Tuck, Breast Implants, SCS Insertion/ Removal, EGD (2019), Port Placement SH: Never smoker, Occ ETOH use, No illicit drug use FH: Fa- No Reported History. Mo- No Reported History All: See list Meds: See list REVIEW OF ORGAN SYSTEMS: CONSTITUTIONAL: No fevers or chills. No recent weight loss. NEUROLOGICAL: + numbness and tingling along the distal extremities. No seizure disorders or headaches. MUSCULOSKELETAL: + pain PSYCHIATRIC: Denies current depression or suicidal thoughts. Physical Examinations : +Abd incisional scars Constitutional : Cooperative , not in acute distress . Neurologic : Cranial nerve II to XII intact. No focal neurological deficits. Psychiatric : alert & oriented x 3. Matching mood & appropriate affect. Judgment & insight intact. Musculoskeletal : Cervical Spine Motor strength in the deltoid and biceps: Normal right side. Normal Left side Motor strength biceps and the wrist extensors: Normal right side . Normal left side Motor strength in the triceps muscle: Normal right side. Normal left side Deep tendon reflexes: Normal at the biceps. Normal at Brachioradialis. Normal at triceps Vertebral body tenderness to deep palpation over Cervical facet loading test: positive bilaterally Spurling test: positive bilaterally Neck distraction test: positive bilaterally Marisol sign: positive bilaterally Lumbar spine Motor strength lower extremities ,thigh and legs 5/5 Right side , 5/5 Left side Deep tendon reflexes : Normal Knee Jerk. Normal Ankle Jerk Vertebral body tenderness over Ayala Test positive Lumbar facet Loading Test: positive Right / positive Left Range of motion of the lumbar spine Flexion 30 degrees, extension 10 degrees Straight Leg Raise test: Left/ Right positive at degrees Honorio test: positive right / positive left. Severe tenderness over the Sacroiliac joint on the Right / Left sides Gaenslen test: positive bilaterally Seated flexion test: positive bilaterally. Sacral spine : Severe tenderness over the Sacroiliac joint: right side / left side Range of motion: Flexion of the lumbar spine <60 degrees Range of motion: Extension of the lumbar spine <20 degrees Gaenslen's Test positive Honorio test: positive right side / left side Thigh Thrust Test Sacral Thrust Test Assessment/ Plan : Gastroparesis, Diabetes controlled, Hx of Abdominal Surgeries Recommendation of medication management. Continue IV Dilaudid as pt can not tolerate orals during gastroparesis episode. Percocet 10/325mg #14 upon d ischarge. Use, side effects, adverse reactions, safe storage discussed. All questions answered. I have spent greater than 30 minutes on patient care today. Dr Skinner was available by phone for the evaluation of this patient. The time was used to review the medical records including relevant urine studies and Prescription history (MAPs), review of the available imaging, evaluation and examination of the patient, coordination of care with the medical staff and if applicable referring physicians, as well as creation of the medical record - Pain Location Abdomen Pharmacological Interventions: PRN Medication PQRS Narrative: Smoking Status Never smoker Blood Pressure [Right Arm] 110/60 Blood Pressure [Left Arm] 131/78 Blood Pressure 96/67 Pain Intensity [Abdomen] 8 Pain Intensity 9 Pain Scale Used Numeric (1 - 10) Scale Used Numeric (1 - 10) Home Medications: Ambulatory Orders DULoxetine HCL [Cymbalta] 60 mg PO DAILY 01/10/17 metFORMIN HCL [Glucophage] 500 mg PO BID #60 tab 02/10/18 Levothyroxine Sodium [Synthroid] 112 mcg PO DAILY 12/05/18 rOPINIRole HCL [Requip] 2 mg PO TID 12/05/18 Baclofen 10 mg PO TID 04/29/19 Ondansetron Odt [Zofran ODT] 8 mg PO DAILY PRN 11/13/19 Pantoprazole Sodium [Protonix] 40 mg PO BID 05/10/20 SUMAtriptan succinate 6 mg SQ BID PRN 05/10/20 methocarbamoL [Robaxin] 500 mg PO TID 05/10/20 Infliximab-Dyyb [Inflectra] 1 dose IV Q42D 05/23/20 ALPRAZolam [Xanax] 0.25 mg PO BID 11/05/22 Albuterol Inhaler [Ventolin Hfa Inhaler] 2 puff INHALATION RT-Q6H PRN 11/05/22 Albuterol Nebulized [Ventolin Nebulized] 2.5 mg INHALATION RT-QID PRN 07/12/23 Patient Own Pump 0 bag 09/06/23 Gabapentin 300 mg PO TID 03/22/24 oxyCODONE-APAP 10-325MG [Percocet 10-325 mg] 1 tab PO BID PRN 7 Days #14 tab 03/25/24 Controlled Substance Measures - Controlled Substance Measures Is patient prescribed a controlled substance at discharge?: Yes When asked, does pt state using other controlled substances?: Yes If prescribed controlled substance>3 days was MAPS reviewed?: Yes If opioid is for acute pain is fill amount 7 days or less?: Yes
[2024-03-25 16:23] LABS: Glucose,Whole Blood 115 mg/dL (70-110)
[2024-03-25 21:24] LABS: Glucose,Whole Blood 104 mg/dL (70-110)
[2024-03-26 06:38] LABS: Glucose,Whole Blood 122 mg/dL (70-110)
--- NOTE | 2024-03-26 11:10 | CDI ---
Documentation Clarification Form Date: 03/26/2024 10:36:35 AM From: Susanne Arora RN, CCDS Phone: [phone] Admit Date: 03/22/2024 06:28:00 AM Patient Name: Peyton Mcneil Visit Number: [id number] Discharge Date: ATTENTION: The Clinical Documentation Specialists (CDI) and [facility] Coding Staff appreciate your assistance in clarifying documentation. Please respond to the clarification below the line at the bottom and electronically sign. The CDI & [facility] Coding staff will review the response and follow-up if needed. Please note: Queries are made part of the Legal Health Record. If you have any questions, please contact the author of this message via ITS. Doctor. Sean Wynne History of diabetes is documented in the past medical history with ongoing treatment Chief compliant of and/or presenting with symptoms: severe gastroparesis, had a PEG tube placed 24 hours ago. History/Risk Factors: Asthma, Diabetes Mellitus, GERD/Reflux, Gastroparesis Clinical Indicators: 53-year-old female with a past medical history significant for diabetes mellitus reflux. She did have a significant diabetic gastroparesis with multiple episodes of vomiting and recently did have a jejunostomy tube placement at [facility] afterwards the patient is signed, per ID assessment on 03/22/24. Glucose 110, 101, 91 Treatment: Protonix 40 MG IVP Daily Zofran 4 mg IVP Q 6 HRS PRN In your professional opinion, can you please clarify the relationship between the diabetes and the patients presenting symptoms if known? [ ] Diabetic Gastroparesis with history of Diabetes mellitus type 2 [ ] Other, please specify [ ] Unable to Determine AND [ ] FPC Insulin Use [ ] Current Insulin Use (Last Revision: January 2017) MTDD
[2024-03-26 11:33] LABS: Glucose,Whole Blood 129 mg/dL (70-110)
--- NOTE | 2024-03-26 22:19 | PN ---
PROGRESS NOTE OBJECTIVE: VITAL SIGNS: Blood pressure 110 to 130s over 60s to 70s, O2 93 to 96, temperature 98.2, pulse 60s to 70s, respiratory rate 16 to 18. CARDIOVASCULAR: S1, S2. LUNGS: Transmitted upper sounds. HEMATOLOGY: Negative Homans. Sugars are mid 100s. Seen by Pain Management. Tube feeding is being addressed. She is being taught how to do tube feedings and bolus feedings. She has lost 16 to 20 pounds over the last year. She used to be 254 to 260, now she is 238. She has been vomiting for at least a month or 2, unable to keep any food or liquid down. She has severe gastroparesis, Clinic down at [facility] to get a gastric pump in the near future. She is not able to keep significant calories down over the last month. Prognosis is guarded. She needs tube feedings at home, please setup. She is getting them here and she is being treated for aspiration pneumonia for progressive vomiting, which is causing aspiration pneumonia. Prognosis is extremely guarded. MMODL / IJN: [id number] /
[2024-03-26] MEDS: PANTOPRAZOLE 40 MG/10 ML VIAL IVP SCH (22:22)
--- NOTE | 2024-03-26 22:34 | PN ---
PROGRESS NOTE Diabetic gastroparesis, history of diabetes type 2. MMODL / IJN: [id number] /
--- NOTE | 2024-03-27 11:18 | P.PN ---
Subjective Progress Note Date: 03/27/24 Principal diagnosis: Abnormal CAT scan with multiple right upper lobe nodules were seen back in July 2023 as well History of pulmonary and systemic sarcoidosis in remission History of fungemia s/p therapy with antifungal Intractable abdominal pain primary care managing Intractable nausea and vomiting as above Protein calorie malnourishment, status post percutaneous PEG tube 03/27/2024, patient seen eval examined during rounds labs reviewed medications reviewed care plan discussed, patient continued to have symptoms associated with diabetic gastroparesis with type 2 diabetes mellitus. Currently patient is on bronchodilator along with Xanax for generalized anxiety control, antidepressant pain control with Dilaudid as well as Toradol and Synthroid replacement patient is on IV Zosyn as well labs not done today she is afebrile with temperature 97 blood pressure 110/71 room air oxygen saturation 97%, pain management has been following as well, patient has been complaining of dyspepsia we will get Pepto- Bismol, ordered labs and x-ray for tomorrow as well 51-year-old female admitted into hospital with abdominal pain of note that patient signed out AMA 1 hour prior to admission/arrival emergency department, reaching home patient started having abdominal pain PMD advised to go back to emergency department for evaluation. On arrival patient was afebrile but t achypneic and tachycardic labs including CBC and chemistry fairly unremarkable, CT scan of the abdomen pelvis at admission small amount of free air seen at gastrostomy site no fluid collection no other acute finding noted, CT scan of the chest done right upper lobe small subcentimeter nodules are seen the largest is about 6 mm size few mediastinal hilar lymph node also seen final report is pending. Of note that patient had prior CT scan of the chest done in July 2023 right upper lobe nodules were seen at that time as well however appear to be smaller in size about 3 to 4 mm, patient currently managed with pain control anxiety control along with bronchodilators continuation of her home medicines and has been gently rehydrated Well-known to me for pulmonary sarcoidosis and systemic sarcoidosis in remission as well calcified lymph node, chronic pain syndrome, generalized anxiety disorder, history of chronic intermittent intractable nausea and vomiting, restless leg syndrome, hypothyroidism, peripheral neuropathy, peptic ulcer disease, chronic migraine headaches, COPD, chronic intermittent asthma, type 2 diabetes mellitus, sleep disordered breathing and sleep apnea, multiple scleros is with history of optic neuritis and gastroparesis, history of C. difficile colitis also recent history of fungemia thought to be related to port, patient on long-term antifungal by infectious disease, finish therapy Objective - Vital Signs Vital signs: Vital Signs Temp 97.5 F L 03/27/24 08:06 Pulse 74 03/27/24 08:06 Resp 18 03/27/24 08:06 BP 112/71 03/27/24 08:06 Pulse Ox 97 03/27/24 08:06 FiO2 Intake & Output 03/26/24 03/27/24 03/27/24 18:59 06:59 18:59 Weight 234.7 kg 109 kg Other: Voiding Method Toilet Toilet # Voids 5 - Exam - Constitutional General appearance: disheveled, morbidly obese, no acute distress - EENT Eyes: EOMI, PERRLA Ears: bilateral: normal - Neck Neck: normal ROM Carotids: bilateral: upstroke normal Thyroid: bilateral: normal size - Respiratory Respiratory: bilateral: CTA - Cardiovascular Rhythm: regular Heart sounds: normal: S1, S2 - Gastrointestinal General gastrointestinal: normal bowel sounds - Integumentary Integumentary: normal turgor - Neurologic Neurologic: CNII-XII intact - Musculoskeletal Musculoskeletal: gait normal, generalized weakness, strength equal bilaterally - Psychiatric Psychiatric: A&O x's 3, appropriate affect, intact judgment & insight - Labs CBC & Chem 7: 03/24/24 06:21 03/24/24 06:21 Labs: Abnormal Lab Results - Last 24 Hours (Table) 03/26/24 Range/Units 11:32 POC Glucose (mg/dL) 129 H (70-110) mg/dL Assessment and Plan Assessment: Chronic pain syndrome being followed by pain management services and Dr. Pope Abnormal CAT scan with multiple right upper lobe nodules were seen back in July 2023 as well History of pulmonary and systemic sarcoidosis in remission History of fungemia s/p therapy with antifungal Intractable abdominal pain primary care managing Intractable nausea and vomiting as above Protein calorie malnourishment, status post percutaneous PEG tube Plan: Continue pain management, continue antibiotics repeat labs and x-ray tomorrow Overall plan is to monitor observe closely, patient will need outpatient workup and evaluation including PET scan PFTs, further recommendation pending and plan of care as per clinical response with the patient Time with Patient: Greater than 30
[2024-03-27] MEDS: BISMUTH SUBSALICYLATE 4,192 MG/240 ML BOTTLE PO PRN (12:05)
--- NOTE | 2024-03-28 10:29 | P.PN ---
Subjective Progress Note Date: 03/28/24 Principal diagnosis: Abnormal CAT scan with multiple right upper lobe nodules were seen back in July 2023 as well History of pulmonary and systemic sarcoidosis in remission History of fungemia s/p therapy with antifungal Intractable abdominal pain primary care managing Intractable nausea and vomiting as above Protein calorie malnourishment, status post percutaneous PEG tube March 28, 2024, patient seen evaluate examined during rounds labs reviewed medications reviewed care plan discussed, patient pulled out the NG tube refused tube feed, still have ongoing intermittent nausea and chronic pain syndrome, T maximum is 99, saturation is 93%, hemodynamic status stable patient is on room air, labs not done today, last set of Dev labs done over 5 days ago, patient re adrianna on bronchodilator generalized anxiety disorder for Xanax Benadryl and IV Zosyn 03/27/2024, patient seen eval examined during rounds labs reviewed medications reviewed care plan discussed, patient continued to have symptoms associated with diabetic gastroparesis with type 2 diabetes mellitus. Currently patient is on bronchodilator along with Xanax for generalized anxiety control, antidepressant pain control with Dilaudid as well as Toradol and Synthroid replacement patient is on IV Zosyn as well labs not done today she is afebrile with temperature 97 blood pressure 110/71 room air oxygen saturation 97%, pain management has been following as well, patient has been complaining of dyspepsia we will get Pepto- Bismol, ordered labs and x-ray for tomorrow as well 51-year-old female admitted into hospital with abdominal pain of note that patient signed out AMA 1 hour prior to admission/arrival emergency department, reaching home patient started having abdominal pain PMD advised to go back to emergency department for evaluation. On arrival patient was afebrile but tachypneic and tachycardic labs including CBC and chemistry fairly unremarkable, CT scan of the abdomen pelvis at admission small amount of free air seen at gastrostomy site no fluid collection no other acute finding noted, CT scan of the chest done right upper lobe small subcentimeter nodules are seen the largest is about 6 mm size few mediastinal hilar lymph node also seen final report is pending. Of note that patient had prior CT scan of the chest done in July 2023 right upper lobe nodules were seen at that time as well however appear to be smaller in size about 3 to 4 mm, patient currently managed with pain control anxiety control along with bronchodilators continuation of her home medicines and has been gently rehydrated Well-known to me for pulmonary sarcoidosis and systemic sarcoidosis in remission as well calcified lymph node, chronic pain syndrome, generalized anxiety disorder, history of chronic intermittent intractable nausea and vomiting, restless leg syndrome, hypothyroidism, peripheral neuropathy, peptic ulcer disease, chronic migraine headaches, COPD, chronic intermittent asthma, type 2 diabetes mellitus, sleep disordered breathing and sleep apnea, multiple sclerosis with history of optic neuritis and gastroparesis, history of C. difficile colitis also recent history of fungemia thought to be related to port, patient on long-term antifungal by infectious disease, finish therapy Objective - Vital Signs Vital signs: Vital Signs Temp 99.1 F 03/28/24 06:46 Pulse 84 03/28/24 06:46 Resp 18 03/28/24 06:46 BP 126/78 03/28/24 06:46 Pulse Ox 93 L 03/28/24 06:46 FiO2 Intake & Output 03/27/24 03/28/24 03/28/24 18:59 06:59 18:59 Weight 107.5 kg Other: Voiding Method Toilet Toilet - Exam - Constitutional General appearance: disheveled, morbidly obese, no acute distress - EENT Eyes: EOMI, PERRLA Ears: bilateral: normal - Neck Neck: normal ROM Carotids: bilateral: upstroke normal Thyroid: bilateral: normal size - Respiratory Respiratory: bilateral: CTA - Cardiovascular Rhythm: regular Heart sounds: normal: S1, S2 - Gastrointestinal General gastrointestinal: normal bowel sounds - Integumentary Integumentary: normal turgor - Neurologic Neurologic: CNII-XII intact - Musculoskeletal Musculoskeletal: gait normal, generalized weakness, strength equal bilaterally - Psychiatric Psychiatric: A&O x's 3, appropriate affect, intact judgment & insight - Labs CBC & Chem 7: 03/24/24 06:21 03/24/24 06:21 Assessment and Plan Assessment: Chronic pain syndrome being followed by pain management services and Dr. Pope Abnormal CAT scan with multiple right upper lobe nodules were seen back in July 2023 as well History of pulmonary and systemic sarcoidosis in remission History of fungemia s/p therapy with antifungal Intractable abdominal pain primary care managing Intractable nausea and vomiting as above Protein calorie malnourishment, status post percutaneous PEG tube Plan: Continue pain management, continue antibiotics repeat labs and x-ray tomorrow Overall plan is to monitor observe closely, patient will need outpatient workup and evaluation including PET scan PFTs, further recommendation pending and plan of care as per clinical response with the patient Time with Patient: Greater than 30
--- NOTE | 2024-03-29 07:46 | XR ---
EXAMINATION TYPE: XR chest 1V portable DATE OF EXAM: 03/29/2024 COMPARISON: 01/30/2020 CLINICAL INDICATION: Female, 53 years old with history of cough; , TECHNIQUE: XR chest 1V portable views of the chest. FINDINGS: Limited inspiration The lungs are clear and there is no pneumothorax, pleural effusion, or focal pne umonia. Mild cardiomegaly but no overt failure. Osseous structures demonstrate hypertrophic and degen erative changes of the spine. IMPRESSION: 1. No acute process. [facility], , 03/29/2024 7:43 AM
[2024-03-29 08:26] LABS: ALT 13 U/L (8-44); AST 20 U/L (13-35); Albumin 3.5 g/dL (3.8-4.9); Albumin/Globulin Ratio 1.46 Ratio (1.60-3.17); Alkaline Phosphatase 55 U/L (41-126); BUN/Creat Ratio 11.62 Ratio (12.00-20.00); Blood Urea Nitrogen 9.3 mg/dL (9.0-27.0); Calcium 9.2 mg/dL (8.7-10.3); Carbon Dioxide 26.1 mmol/L (21.6-31.8); Chloride 104 mmol/L (96-109); Globulin 2.4 g/dL (1.6-3.3); Glucose 105 mg/dL (70-110); Potassium 4.6 mmol/L (3.5-5.5); Sodium 140 mmol/L (135-145); Total Bilirubin <0.2 mg/dL (0.3-1.2); Total Protein 5.9 g/dL (6.2-8.2)
[2024-03-29 08:43] LABS: Basophils # (A) 0.06 X 10*3/uL (0.00-0.10); Basophils % (A) 0.9 %; Eosinophils # (A) 0.52 X 10*3/uL (0.04-0.35); Eosinophils % (A) 8.2 %; HCT 32.7 % (37.2-46.3); HGB 10.3 g/dL (12.0-15.0); Lymphocytes # (A) 2.43 X 10*3/uL (0.90-5.00); Lymphocytes % (A) 38.1 %; MCH 28.1 pg (27.0-32.0); MCHC 31.5 g/dL (32.0-37.0); MCV 89.1 FL (80.0-97.0); Mean Platelet Volume 10.5 FL (9.5-12.2); Monocytes # (A) 0.61 X 10*3/uL (0.20-1.00); Monocytes % (A) 9.6 %; NRBC Per 100 WBC 0 X 10*3/uL (0.00-0.01); Neutrophils # (A) 2.74 X 10*3/uL (1.80-7.70); Platelet Count 298 X 10*3/uL (140-440); RBC 3.67 X 10*6/uL (4.10-5.20); RDW 13.4 % (11.5-14.5); WBC 6.37 X 10*3/uL (4.50-10.00)
--- NOTE | 2024-03-29 11:39 | P.PN ---
Subjective Progress Note Date: 03/29/24 Principal diagnosis: Abnormal CAT scan with multiple right upper lobe nodules were seen back in July 2023 as well History of pulmonary and systemic sarcoidosis in remission History of fungemia s/p therapy with antifungal Intractable abdominal pain primary care managing Intractable nausea and vomiting as above Protein calorie malnourishment, status post percutaneous PEG tube March 29, 2024, patient seen eval examined during rounds labs reviewed medications reviewed, tube feeds on hold, patient is being prepared for another tube feed, nutrition has been following. Labs from today reviewed white cell 6.3 hemoglobin platelet count 2 98,000, chemistry fairly within normal limit, patient remains on bronchodilator along with antianxiety medicine with Xanax, patient has been replaced with Synthroid as well along with broad- spectrum IV antibiotics with Zosyn March 28, 2024, patient seen evaluate examined during rounds labs reviewed medications reviewed care plan discussed, patient pulled out the NG tube refused tube feed, still have ongoing intermittent nausea and chronic pain syndrome, T maximum is 99, saturation is 93%, hemodynamic status stable patient is on room air, labs not done today, last set of Dev labs done over 5 days ago, patient remains on bronchodilator generalized anxiety disorder for Xanax Benadryl and IV Zosyn 03/27/2024, patient seen eval examined during rounds labs reviewed medications reviewed care plan discussed, patient continued to have symptoms associated with diabetic gastroparesis with type 2 diabetes mellitus. Currently patient is on bronchodilator along with Xanax for generalized anxiety control, antidepressant pain control with Dilaudid as well as Toradol and Synthroid replacement patient is on IV Zosyn as well labs not done today she is afebrile with temperature 97 blood pressure 110/71 room air oxygen saturation 97%, pain management has been following as well, patient has been complaining of dyspepsia we will get Pepto- Bismol, ordered labs and x-ray for tomorrow as well 51-year-old female admitted into hospital with abdominal pain of note that patient signed out AMA 1 hour prior to admission/arrival emergency department, reaching home patient started having abdominal pain PMD advised to go back to emergency department for evaluation. On arrival patient was afebrile but tachypneic and tachycardic labs including CBC and chemistry fairly unremarkable, CT scan of the abdomen pelvis at admission small amount of free air seen at gastrostomy site no fluid collection no other acute finding noted, CT scan of the chest done right upper lobe small subcentimeter nodules are seen the largest is about 6 mm size few mediastinal hilar lymph node also seen final report is pending. Of note that patient had prior CT scan of the chest done in July 2023 right upper lobe nodules were seen at that time as well however appear to be smaller in size about 3 to 4 mm, patient currently managed with pain control anxiety control along with bronchodilators continuation of her home medicines and has been gently rehydrated Well-known to me for pulmonary sarcoidosis and systemic sarcoidosis in remission as well calcified lymph node, chronic pain syndrome, generalized anxiety disorder, history of chronic intermittent intractable nausea and vomiting, restless leg syndrome, hypothyroidism, peripheral neuropathy, peptic ulcer disease, chronic migraine headaches, COPD, chronic intermittent asthma, type 2 d iabetes mellitus, sleep disordered breathing and sleep apnea, multiple sclerosis with history of optic neuritis and gastroparesis, history of C. difficile colitis also recent history of fungemia thought to be related to port, patient on long-term antifungal by infectious disease, finish therapy Objective - Vital Signs Vital signs: Vital Signs Temp 99 F 03/29/24 07:15 Pulse 78 03/29/24 07:15 Resp 16 03/29/24 07:15 BP 114/72 03/29/24 07:15 Pulse Ox 93 L 03/29/24 07:15 FiO2 Intake & Output 03/28/24 03/29/24 03/29/24 18:59 06:59 18:59 Weight 107.5 kg 104.5 kg Other: Voiding Method Toilet Toilet # Voids 3 # Bowel Movements 1 - Exam - Constitutional General appearance: disheveled, morbidly obese, no acute distress - EENT Eyes: EOMI, PERRLA Ears: bilateral: normal - Neck Neck: normal ROM Carotids: bilateral: upstroke normal Thyroid: bilateral: normal size - Respiratory Respiratory: bilateral: CTA - Cardiovascular Rhythm: regular Heart sounds: normal: S1, S2 - Gastrointestinal General gastrointestinal: normal bowel sounds - Integumentary Integumentary: normal turgor - Neurologic Neurologic: CNII-XII intact - Musculoskeletal Musculoskeletal: gait normal, generalized weakness, strength equal bilaterally - Psychiatric Psychiatric: A&O x's 3, appropriate affect, intact judgment & insight - Labs CBC & Chem 7: 03/29/24 03:14 12/27/24 03:14 Labs: Abnormal Lab Results - Last 24 Hours (Table) 03/29/24 03/29/24 Range/Units 03:14 03:14 RBC 3.67 L (4.10-5.20) X 10*6/uL Hgb 10.3 L (12.0-15.0) g/dL Hct 32.7 L (37.2-46.3) % MCHC 31.5 L (32.0-37.0) g/dL Eosinophils # 0.52 H (0.04-0.35) X 10*3/uL BUN/Creatinine Ratio 11.62 L (12.00-20.00) Ratio Total Bilirubin <0.2 L (0.3-1.2) mg/dL Total Protein 5.9 L (6.2-8.2) g/dL Albumin 3.5 L (3.8-4.9) g/dL Albumin/Globulin Ratio 1.46 L (1.60-3.17) Ratio Assessment and Plan Assessment: Chronic pain syndrome being followed by pain management services and Dr. Flanagan Abnormal CAT scan with multiple right upper lobe nodules were seen back in July 2023 as well History of pulmonary and systemic sarcoidosis in remission History of fungemia s/p therapy with antifungal Intractable abdominal pain primary care managing Intractable nausea and vomiting as above Protein calorie malnourishment, status post percutaneous PEG tube Plan: Continue pain management, continue antibiotics repeat labs and x-ray tomorrow Overall plan is to monitor observe closely, patient will need outpatient workup and evaluation including PET scan PFTs, further recommendation pending and plan of care as per clinical response with the patient Time with Patient: Greater than 30
[2024-03-29 13:33] VITALS: BMI 35.0
[2024-03-29 16:38] LABS: Glucose,Whole Blood 91 mg/dL (70-110)
[2024-03-30 07:57] LABS: Basophils % (A) 1 %; Eosinophils # (A) 0.5 k/uL (0-0.7); Eosinophils % (A) 8 %; HCT 36.1 % (34.0-46.0); HGB 11.8 gm/dL (11.4-16.0); Lymphocytes # (A) 2.4 k/uL (1.0-4.8); Lymphocytes % (A) 39 %; MCH 28.2 pg (25.0-35.0); MCHC 32.5 g/dL (31.0-37.0); MCV 86.8 fL (80.0-100.0); Mean Platelet Volume 7.5; Monocytes # (A) 0.4 k/uL (0-1.0); Monocytes % (A) 7 %; Neutrophils # (A) 2.7 k/uL (1.3-7.7); Neutrophils % (A) 43 %; Platelet Count 318 k/uL (150-450); RBC 4.16 m/uL (3.80-5.40); RDW 14.3 % (11.5-15.5); WBC 6.2 k/uL (3.8-10.6)
[2024-03-30 08:06] LABS: ALT 13 U/L (4-34); AST 22 U/L (14-36); African American GFR (CKD) 83 (>60 ml/min/1.73 sqM); Albumin 3.7 g/dL (3.5-5.0); Albumin/Globulin Ratio 1.3; Alkaline Phosphatase 58 U/L (38-126); Anion Gap 6 mmol/L; Blood Urea Nitrogen 10 mg/dL (7-17); Calcium 9.6 mg/dL (8.4-10.2); Carbon Dioxide 30 mmol/L (22-30); Chloride 102 mmol/L (98-107); Globulin 2.8 g/dL; Glucose 103 mg/dL (74-99); Non-African American GFR(CKD) 72 (>60 ml/min/1.73 sqM); Potassium 4.3 mmol/L (3.5-5.1); Sodium 138 mmol/L (137-145); Total Bilirubin 0.2 mg/dL (0.2-1.3); Total Protein 6.5 g/dL (6.3-8.2)
--- NOTE | 2024-03-30 09:36 | P.PN ---
Subjective Progress Note Date: 03/30/24 Principal diagnosis: Abnormal CAT scan with multiple right upper lobe nodules were seen back in July 2023 as well History of pulmonary and systemic sarcoidosis in remission History of fungemia s/p therapy with antifungal Intractable abdominal pain primary care managing Intractable nausea and vomiting as above Protein calorie malnourishment, status post percutaneous PEG tube 10/29/2023, patient seen eval examined during rounds labs reviewed medications reviewed, patient expresses desire to go to [facility] labs from today reviewed CBC within normal limit chemistry also normal sugar 103, medications reviewed, patient on bronchodilator and Zosyn high-dose IV steroids have been discontinued patient is on maintenance dose of Medrol March 29, 2024, patient seen eval examined during rounds labs reviewed medications reviewed, tube feeds on hold, patient is being prepared for another tube feed, nutrition has been following. Labs from today reviewed white cell 6.3 hemoglobin platelet count 2 98,000, chemistry fairly within normal limit, patient remains on bronchodilator along with antianxiety medicine with Xanax, patient has been replaced with Synthroid as well along with broad- spectrum IV antibiotics with Zosyn March 28, 2024, patient seen evaluate examined during rounds labs reviewed medications reviewed care plan discussed, patient pulled out the NG tube refused tube feed, still have ongoing intermittent nausea and chronic pain syndrome, T maximum is 99, saturation is 93%, hemodynamic status stable patient is on room air, labs not done today, last set of Dev labs done over 5 days ago, patient remains on bronchodilator generalized anxiety disorder for Xanax Benadryl and IV Zosyn 03/27/2024, patient seen eval examined during rounds labs reviewed medications reviewed care plan discussed, patient continued to have symptoms associated with diabetic gastroparesis with type 2 diabetes mellitus. Currently patient is on bronchodilator along with Xanax for generalized anxiety control, antidepressant pain control with Dilaudid as well as Toradol and Synthroid replacement patient is on IV Zosyn as well labs not done today she is afebrile with temperature 97 blood pressure 110/71 room air oxygen saturation 97%, pain management has been following as well, patient has been complaining of dyspepsia we will get Pepto- Bismol, ordered labs and x-ray for tomorrow as well 51-year-old female admitted into hospital with abdominal pain of note that patient signed out AMA 1 hour prior to admission/arrival emergency department, reaching home patient started having abdominal pain PMD advised to go back to emergency department for evaluation. On arrival patient was afebrile but tachypneic and tachycardic labs including CBC and chemistry fairly unremarkable, CT scan of the abdomen pelvis at admission small amount of free air seen at gastrostomy site no fluid collection no other acute finding noted, CT scan of the chest done right upper lobe small subcentimeter nodules are seen the largest is about 6 mm size few mediastinal hilar lymph node also seen final report is pending. Of note that patient had prior CT scan of the chest done in July 2023 right upper lobe nodules were seen at that time as well however appear to be sm aller in size about 3 to 4 mm, patient currently managed with pain control anxiety control along with bronchodilators continuation of her home medicines and has been gently rehydrated Well-known to me for pulmonary sarcoidosis and systemic sarcoidosis in remission as well calcified lymph node, chronic pain syndrome, generalized anxiety disorder, history of chronic intermittent intractable nausea and vomiting, restless leg syndrome, hypothyroidism, peripheral neuropathy, peptic ulcer disease, chronic migraine headaches, COPD, chronic intermittent asthma, type 2 diabetes mellitus, sleep disordered breathing and sleep apnea, multiple sclerosis with history of optic neuritis and gastroparesis, history of C. difficile colitis also recent history of fungemia thought to be related to port, patient on long-term antifungal by infectious disease, finish therapy Objective - Vital Signs Vital signs: Vital Signs Temp 98.7 F 03/30/24 07:01 Pulse 86 03/30/24 07:01 Resp 17 03/30/24 07:01 BP 123/82 03/30/24 07:01 Pulse Ox 95 03/30/24 07:01 FiO2 Intake & Output 03/29/24 03/30/24 03/30/24 18:59 06:59 18:59 Intake Total 1650 Balance 1650 Weight 104.5 kg Intake: Oral 1650 Other: # Voids 4 6 - Exam - Constitutional General appearance: disheveled, morbidly obese, no acute distress - EENT Eyes: EOMI, PERRLA Ears: bilateral: normal - Neck Neck: normal ROM Carotids: bilateral: upstroke normal Thyroid: bilateral: normal size - Respiratory Respiratory: bilateral: CTA - Cardiovascular Rhythm: regular Heart sounds: normal: S1, S2 - Gastrointestinal General gastrointestinal: normal bowel sounds - Integumentary Integumentary: normal turgor - Neurologic Neurologic: CNII-XII intact - Musculoskeletal Musculoskeletal: gait normal, generalized weakness, strength equal bilaterally - Psychiatric Psychiatric: A&O x's 3, appropriate affect, intact judgment & insight - Labs CBC & Chem 7: 03/30/24 07:01 03/30/24 07:01 Labs: Abnormal Lab Results - Last 24 Hours (Table) 03/30/24 Range/Units 07:01 Glucose 103 H (74-99) mg/dL Assessment and Plan Assessment: Chronic pain syndrome being followed by pain management services and Dr. Flanagan Abnormal CAT scan with multiple right upper lobe nodules were seen back in July 2023 as well History of pulmonary and systemic sarcoidosis in remission History of fungemia s/p therapy with antifungal Intractable abdominal pain primary care managing Intractable nausea and vomiting as above Protein calorie malnourishment, status post percutaneous PEG tube Plan: Continue pain management, continue antibiotics repeat labs and x-ray reviewed la bs unremarkable including CBC and chemistry, chest x-ray no active disease identified Overall plan is to monitor observe closely, patient will need outpatient workup and evaluation including PET scan PFTs, further recommendation pending and plan of care as per clinical response with the patient Time with Patient: Greater than 30
[2024-03-30 16:14] LABS: Glucose,Whole Blood 100 mg/dL (70-110)
[2024-03-31] MEDS: oxyCODONE-APAP 10-325MG 1 EACH TAB PO SCH (06:22)
[2024-03-31] MEDS: ONDANSETRON ODT 8 MG TAB.RAPDIS PO PRN (06:30)
[2024-03-31 06:55] LABS: Glucose,Whole Blood 108 mg/dL (70-110)
[2024-03-31 07:18] VITALS: BP 112/77; PULSE 84; RESP 16; TEMP 98
--- NOTE | 2024-03-31 12:32 | P.DS ---
Providers Date of admission: 03/22/24 06:28 Expected date of discharge: 03/31/24 Attending physician: Sean Wynne Consults: 03/22/24 09:04 Consult Physician Routine Consulting Provider: Romelia Marques Consult Reason/Comments: recent fungal bacteremia Do you want consulting provider notified?: Yes 03/22/24 09:05 Consult Physician Routine Consulting Provider: Nicole Gage Consult Reason/Comments: gastroparesis Do you want consulting provider notified?: Yes 03/22/24 09:06 Consult Physician Routine Consulting Provider: Guillermina Skinner Consult Reason/Comments: chronic pain Do you want consulting provider notified?: Yes 03/23/24 21:25 Consult Physician Routine Consulting Provider: Ryan Sanders Consult Reason/Comments: hypoxia Do you want consulting provider notified?: Yes 03/24/24 10:31 Consult Physician Routine Consulting Provider: Ryan Sanders Consult Reason/Comments: possible aspiration pneumonia Do you want consulting provider notified?: Yes Primary care physician: [facility] Course: March 31, 2024, patient refused to wait to transfer to [facility] and decided to leave AGAINST MEDICAL ADVICE , patient seen eval examined during rounds labs reviewed medications reviewed, patient expresses desire to go to [facility] labs from today reviewed CBC within normal limit chemistry also normal sugar 103, m edications reviewed, patient on bronchodilator and Zosyn high-dose IV steroids have been discontinued patient is on maintenance dose of Medrol March 29, 2024, patient seen eval examined during rounds labs reviewed medications reviewed, tube feeds on hold, patient is being prepared for another tube feed, nutrition has been following. Labs from today reviewed white cell 6.3 hemoglobin platelet count 2 98,000, chemistry fairly within normal limit, patient remains on bronchodilator along with antianxiety medicine with Xanax, patient has been replaced with Synthroid as well along with broad- spectrum IV antibiotics with Zosyn March 28, 2024, patient seen evaluate examined during rounds labs reviewed medications reviewed care plan discussed, patient pulled out the NG tube refused tube feed, still have ongoing intermittent nausea and chronic pain syndrome, T maximum is 99, saturation is 93%, hemodynamic status stable patient is on room air, labs not done today, last set of Dev labs done over 5 days ago, patient remains on bronchodilator generalized anxiety disorder for Xanax Benadryl and IV Zosyn 03/27/2024, patient seen eval examined during rounds labs reviewed medications reviewed care plan discussed, patient continued to have symptoms associated with diabetic gastroparesis with type 2 diabetes mellitus. Currently patient is on bronchodilator along with Xanax for generalized anxiety control, antidepressant pain control with Dilaudid as well as Toradol and Synthroid replacement patient is on IV Zosyn as well labs not done today she is afebrile with temperature 97 blood pressure 110/71 room air oxygen saturation 97%, pain management has been following as well, patient has been complaining of dyspepsia we will get Pepto- Bismol, ordered labs and x-ray for tomorrow as well 51-year-old female admitted into hospital with abdominal pain of note that patient signed out AMA 1 hour prior to admission/arrival emergency department, reaching home patient started having abdominal pain PMD advised to go back to emergency department for evaluation. On arrival patient was afebrile but tachypneic and tachycardic labs including CBC and chemistry fairly unremarkable, CT scan of the abdomen pelvis at admission small amount of free air seen at gastrostomy site no fluid collection no other acute finding noted, CT scan of the chest done right upper lobe small subcentimeter nodules are seen the largest is about 6 mm size few mediastinal hilar lymph node also seen final report is pending. Of note that patient had prior CT scan of the chest done in July 2023 right upper lobe nodules were seen at that time as well however appear to be smaller in size about 3 to 4 mm, patient currently managed with pain control anxiety control along with bronchodilators continuation of her home medicines and has been gently rehydrated Well-known to me for pulmonary sarcoidosis and systemic sarcoidosis in remission as well calcified lymph node, chronic pain syndrome, generalized anxiety disorder, history of chronic intermittent intractable nausea and vomiting, restless leg syndrome, hypothyroidism, peripheral neuropathy, peptic ulcer disease, chronic migraine headaches, COPD, chronic intermittent asthma, type 2 diabetes mellitus, sleep disordered breathing and sleep apnea, multiple sclerosis with history of optic neuritis and gastroparesis, history of C. difficile colitis also recent history of fungemia thought to be related to port, patient on long-term antifungal by infectious disease, finish therapy Assessment: Abnormal CAT scan with multiple right upper lobe nodules were seen back in July 2023 as well History of pulmonary and systemic sarcoidosis in remission History of fungemia s/p therapy with antifungal Intractable abdominal pain primary care managing Intractable nausea and vomiting as above Protein calorie malnourishment, status post percutaneous PEG tube Pertinent Studies: As above Procedures: Midline IV access on March 25, 2024, CT scan of the chest on March 24, 2024 CT scan of the abdomen pelvis on March 30, 2024 Patient Condition at Discharge: Stable Plan - Discharge Summary Discharge Rx Participant: No New Discharge Prescriptions: Continue oxyCODONE-APAP 10-325MG [Percocet 10-325 mg] 1 tab PO BID PRN 7 Days #14 tab PRN Reason: Pain No Action DULoxetine HCL [Cymbalta] 60 mg PO DAILY metFORMIN HCL [Glucophage] 500 mg PO BID #60 tab rOPINIRole HCL [Requip] 2 mg PO TID Levothyroxine Sodium [Synthroid] 112 mcg PO DAILY Baclofen 10 mg PO TID Ondansetron Odt [Zofran ODT] 8 mg PO DAILY PRN PRN Reason: Nausea methocarbamoL [Robaxin] 500 mg PO TID Pantoprazole Sodium [Protonix] 40 mg PO BID SUMAtriptan succinate 6 mg SQ BID PRN PRN Reason: Migraine Headache Infliximab-Dyyb [Inflectra] 1 dose IV Q42D ALPRAZolam [Xanax] 0.25 mg PO BID Albuterol Inhaler [Ventolin Hfa Inhaler] 2 puff INHALATION RT-Q6H PRN PRN Reason: Shortness Of Breath Albuterol Nebulized [Ventolin Nebulized] 2.5 mg INHALATION RT-QID PRN PRN Reason: Shortness Of Breath Patient Own Pump 0 bag Gabapentin 300 mg PO TID Discharge Medication List DULoxetine HCL [Cymbalta] 60 mg PO DAILY 01/10/17 [History] metFORMIN HCL [Glucophage] 500 mg PO BID #60 tab 02/10/18 [Rx] Levothyroxine Sodium [Synthroid] 112 mcg PO DAILY 12/05/18 [History] rOPINIRole HCL [Requip] 2 mg PO TID 12/05/18 [History] Baclofen 10 mg PO TID 04/29/19 [History] Ondansetron Odt [Zofran ODT] 8 mg PO DAILY PRN 11/13/19 [History] Pantoprazole Sodium [Protonix] 40 mg PO BID 05/10/20 [History] SUMAtriptan succinate 6 mg SQ BID PRN 05/10/20 [History] methocarbamoL [Robaxin] 500 mg PO TID 05/10/20 [History] Infliximab-Dyyb [Inflectra] 1 dose IV Q42D 05/23/20 [History] ALPRAZolam [Xanax] 0.25 mg PO BID 11/05/22 [History] Albuterol Inhaler [Ventolin Hfa Inhaler] 2 puff INHALATION RT-Q6H PRN 11/05/22 [History] Albuterol Nebulized [Ventolin Nebulized] 2.5 mg INHALATION RT-QID PRN 07/12/23 [History] Patient Own Pump 0 bag 09/06/23 [History] Gabapentin 300 mg PO TID 03/22/24 [History] oxyCODONE-APAP 10-325MG [Percocet 10-325 mg] 1 tab PO BID PRN 7 Days #14 tab 03/25/24 [Rx] Follow up Appointment(s)/Referral(s): Abdi Taylor MD [REFERRING] - 1-2 days [facility], [NON-STAFF] - As Needed ([facility] will call you to schedule your in home visits. ) [facility], [REFERRING] - As Needed Discharge Disposition: LEFT AGAINST MEDICAL ADVICE
== END 2024-03-31 10:07 | disposition left against medical advice (07) | DRG 73 ==
LOC: EC 21:52 → 4SSUR 03-22 06:28
PROVIDERS: ADMIT Family Medicine; ATTEND Family Medicine
PROC: 3E0G76Z Introduction of Nutritional Substance into Upper GI, Via Natural or Artificial Opening (ICD-10-PCS; principal; 2024-03-22)
PROC: 05HA33Z Insertion of Infusion Device into Left Brachial Vein, Percutaneous Approach (ICD-10-PCS; 2024-03-22)
DX: E11.43 Type 2 diabetes mellitus with diabetic autonomic (poly)neuropathy (principal); J69.0 Pneumonitis due to inhalation of food and vomit; E46 Unspecified protein-calorie malnutrition; K31.84 Gastroparesis; E66.01 Morbid (severe) obesity due to excess calories; F41.1 Generalized anxiety disorder; J45.20 Mild intermittent asthma, uncomplicated; G89.4 Chronic pain syndrome; Z68.34 Body mass index [BMI] 34.0-34.9, adult; G35 Multiple sclerosis; D86.0 Sarcoidosis of lung; E03.9 Hypothyroidism, unspecified; Z79.4 Long term (current) use of insulin; Z79.84 Long term (current) use of oral hypoglycemic drugs; Z79.890 Hormone replacement therapy; Z79.899 Other long term (current) drug therapy; Z86.19 Personal history of other infectious and parasitic diseases; Z87.11 Personal history of peptic ulcer disease; Z90.710 Acquired absence of both cervix and uterus; Z91.199 Patient's noncompliance with other medical treatment and regimen due to unspecified reason; Z93.4 Other artificial openings of gastrointestinal tract status; Z98.82 Breast implant status; G25.81 Restless legs syndrome; I89.8 Other specified noninfective disorders of lymphatic vessels and lymph nodes; Z91.040 Latex allergy status; Z53.29 Procedure and treatment not carried out because of patient's decision for other reasons; Z87.19 Personal history of other diseases of the digestive system; G62.9 Polyneuropathy, unspecified; G89.3 Neoplasm related pain (acute) (chronic); Z68.35 Body mass index [BMI] 35.0-35.9, adult; Z93.1 Gastrostomy status; Z88.8 Allergy status to other drugs, medicaments and biological substances
CPT/HCPCS: 36410; 36415; 71045; 71250; 74176; 80053; 83605; 83690; 85025; 85610; 85730; 87086; 96361; 96374; 96375; 96376; 99285

== ENCOUNTER 2024-03-31 20:39 | Inpatient (IN) | payer MEDICARE ==
--- NOTE | 2024-03-31 21:11 | ED ---
Nausea/Vomiting/Diarrhea HPI - General Source: patient, RN notes reviewed Mode of arrival: wheelchair - History of Present Illness complaint: nausea, vomiting Onset/Timin -: days(s) <Peewee Gamez - Last Filed: 03/31/24 21:08> - General Source: patient, RN notes reviewed, old records reviewed Mode of arrival: wheelchair - History of Present Illness complaint: nausea, vomiting Location: diffuse Severity: severe Severity scale (1-10): 9 Consistency: constant Improves with: none Worsens with: none Associated Symptoms: loss of appetite, nausea/vomiting, weakness <Jose Chacon - Last Filed: 04/08/24 21:25> - General Chief complaint: Nausea/Vomiting/Diarrhea Stated complaint: NV Time Seen by Provider: 03/31/24 20:54 - History of Present Illness Initial comments: Quick note: This is a 53-year-old female presenting for nausea and vomiting following G-tube placement last . Patient endorses concern for gastroparesis. States there is no way to close G-tube and is dissatisfied with the surgery. Patient denies fever, chills, chest pain, dyspnea, abdominal pain, diarrhea, constipation, hematemesis. (Peewee Gamez) This is a 53-year-old female very frustrated with recent G-tube and gastroparesis, patient having persistent nausea vomiting chronic pain (Jose Chacon) - Related Data Home Medications Medication Instructions Recorded Confirmed DULoxetine HCL [Cymbalta] 60 mg PO DAILY 01/10/17 04/07/24 Levothyroxine Sodium [Synthroid] 112 mcg PO DAILY 12/05/18 04/07/24 rOPINIRole HCL [Requip] 2 mg PO TID 12/05/18 04/07/24 Baclofen 10 mg PO TID 04/29/19 04/07/24 Ondansetron Odt [Zofran ODT] 8 mg PO DAILY PRN 11/13/19 04/07/24 Pantoprazole Sodium [Protonix] 40 mg PO BID 05/10/20 04/07/24 SUMAtriptan succinate 6 mg SQ BID PRN 05/10/20 04/07/24 methocarbamoL [Robaxin] 500 mg PO TID 05/10/20 04/07/24 Infliximab-Dyyb [Inflectra] 1 dose IV Q42D 05/23/20 04/07/24 ALPRAZolam [Xanax] 0.25 mg PO BID 11/05/22 04/07/24 Albuterol Inhaler [Ventolin Hfa 2 puff INHALATION RT-Q6H PRN 11/05/22 04/07/24 Inhaler] Albuterol Nebulized [Ventolin 2.5 mg INHALATION RT-QID PRN 07/12/23 04/07/24 Nebulized] Gabapentin 300 mg PO TID 03/22/24 04/07/24 Previous Rx's Medication Instructions Recorded oxyCODONE-APAP 10-325MG [Percocet 1 tab PO BID PRN 7 Days #14 tab 03/25/24 10-325 mg] Allergies Allergy/AdvReac Type Severity Reaction Status Date / Time adhesive Allergy Severe Rash/Hives Verified 04/07/24 12:09 adhesive tape Allergy Severe Rash/Hives Verified 04/07/24 12:09 fentanyl Allergy Severe Rash/Hives Verified 04/07/24 12:09 from patch only latex Allergy Severe Rash/Hives Verified 04/07/24 12:09 metoclopramide [From Reglan] Allergy dystonia Verified 04/07/24 12:09 from IV Reglan micafungin Allergy Diarrhea Verified 04/07/24 12:09 prochlorperazine Allergy dystonia Verified 04/07/24 12:09 [From Compazine] Review of Systems ROS Other: All systems not noted in ROS Statement are negative. <Peewee Gamez - Last Filed: 03/31/24 21:08> ROS Other: All systems not noted in ROS Statement are negative. <Jose Chacon - Last Filed: 04/08/24 21:25> ROS Statement: Those systems with pertinent positive or pertinent negative responses have been documented in the HPI. Past Medical History Past Medical History: Asthma, Diabetes Mellitus, GERD/Reflux, Musculoskeletal Disorder, Neurologic Disorder, Sleep Apnea/CPAP/BIPAP, Thyroid Disorder Additional Past Medical History / Comment(s): MS, back pain, DDD, optic neuritis, Gastroparesis., C-Diff (June 2018) leukopenia (sores in mouth) migraines, sleep apnea due to M.S. (no machine), sarcoidosis, cyst in stomach. , hopitalized 10/04/19 after lumbar puncture because heart rate dropped, hospitalized 10/10/19 for headache (post l.p.), states allergy to all adhesive and needs benadryl IV 50mg prior to using tape or tegaderm etc. History of Any Multi-Drug Resistant Organisms: C-DIFF Date of last positivie culture/infection: 2018 MDRO Source:: stool Past Surgical History: Bladder Surgery, Breast Surgery, Hernia Repair, Hys terectomy, Orthopedic Surgery, Tubal Ligation Additional Past Surgical History / Comment(s): rhinoplasty, bladder suspension, breast sx, morphine pump, RT KNEE SCOPE, TUMMY TUCK, Spinal cord stimulator inserted and removed. port august 2019, gastroparesis botox and EGD 11/06/2019, breast implants, gastric surgery (g-poem) 05/05/20, Stent placed on kidney, hernia repair X2 Past Anesthesia/Blood Transfusion Reactions: Motion Sickness, Postoperative Nausea & Vomiting (PONV) Past Psychological History: No Psychological Hx Reported Smoking Status: Never smoker Past Alcohol Use History: Occasional Past Drug Use History: None Reported - Past Family History Father History Unknown: Yes Family Medical History: No Reported History Additional Family Medical History / Comment(s): . Mother History Unknown: Yes Family Medical History: No Reported History Additional Family Medical History / Comment(s): NO FAMILY HISTORY <Peewee Gamez - Last Filed: 03/31/24 21:08> General Exam <Peewee Gamez - Last Filed: 03/31/24 21:08> General appearance: alert, in no apparent distress Head exam: Present: atraumatic, normocephalic, normal inspection Eye exam: Present: normal appearance, PERRL, EOMI. Absent: scleral icterus, conjunctival injection, periorbital swelling ENT exam: Present: normal exam, mucous membranes moist Neck exam: Present: normal inspection. Absent: tenderness, meningismus, lymphadenopathy Respiratory exam: Present: normal lung sounds bilaterally. Absent: respiratory distress, wheezes, rales, rhonchi, stridor Cardiovascular Exam: Present: regular rate, normal rhythm, normal heart sounds. Absent: systolic murmur, diastolic murmur, rubs, gallop, clicks GI/Abdominal exam: Present: soft, normal bowel sounds. Absent: distended, tenderness, guarding, rebound, rigid Extremities exam: Present: normal inspection, full ROM, normal capillary refill. Absent: tenderness, pedal edema, joint swelling, calf tenderness Back exam: Present: normal inspection Neurological exam: Present: alert, oriented X3, CN II-XII intact Psychiatric exam: Present: normal affect, normal mood Skin exam: Present: warm, dry, intact, normal color. Absent: rash <Jose Chacon - Last Filed: 04/08/24 21:25> - General Exam Comments Initial Comments: Visual Physical Exam Vital signs reviewed General: Well-appearing, nontoxic, no acute distress. Head: Normocephalic, atraumatic Eyes: PERRLA, EOMI ENT: Airway patent Chest: Nonlabored breathing Skin: No visual rash, normal skin tone Neuro: Alert and oriented 3 Musculoskeletal: No gross abnormalities (Peewee Gamez) Course <Jose Chacon - Last Filed: 04/08/24 21:25> Vital Signs 03/31/24 04/01/24 04/01/24 21:01 01:30 07:28 Temperature 98.1 F 98.7 F Pulse Rate 76 87 75 Respiratory 18 18 18 Rate Blood Pressure 126/91 117/84 126/74 O2 Sat by Pulse 98 99 99 Oximetry - Reevaluation(s) Reevaluation #1: 03/31/24 23:21 Medical records reviewed (Jose Chacon) Reevaluation #2: 03/31/24 23:21 Patient symptoms unchanged (Jose Chacon) Reevaluation #3: 03/31/24 23:21 Patient informed of results and questions answered (Jose Chacon) Reevaluation #4: 03/31/24 23:21 Was pt. sent in by a medical professional or institution (, PA, CARROT TIER, urgent care, hospital, or custodial...) When possible be specific @ -no Did you speak to anyone other than the patient for history (EMS, parent, family, police, friend...)? What history was obtained from this source @ -no Did you review nursing and triage notes (agree or disagree)? Why? @ -agree Are old charts reviewed (outside hosp., previous admission, EMS record, old EKG, old radiological studies, urgent care reports/EKG's, custodial records)? Report findings @ -yes Differential Diagnosis (chest pain, altered mental status, abdominal pain women, abdominal pain men, vaginal bleeding, weakness, fever, dyspnea, syncope, headache, dizziness, GI bleed, back pain, seizure, CVA, palpatations, mental health, musculoskeletal)? @ -prior EKG interpreted by me (3pts min.). @ -yes X-rays interpreted by me (1pt min.). @ -no CT interpreted by me (1pt min.). @ -no U/S interpreted by me (1pt. min.). @ -no What testing was considered but not performed or refused? (CT, X-rays, U/S, labs)? Why? @ -none What meds were considered but not given or refused? Why? @ -none Did you discuss the management of the patient with other professionals (professionals i.e. , PA, CARROT TIER, lab, RT, psych nurse, executive secretary social welfare, counseling specialist, teacher, complaint evaluation officer, case resolution specialist)? Give summary @ -no Was smoking cessation discussed for >3mins.? @ -no Was critical care preformed (if so, how long)? @ -no Were there social determinants of health that impacted care today? How? (Homelessness, low income, unemployed, alcoholism, drug addiction, transportation, low edu. Level, literacy, decrease access to med. care, care home, rehab)? @ -none Was there de-escalation of care discussed even if they declined (Discuss DNR or withdrawal of care, Hospice)? DNR status @ -no What co-morbidities impacted this encounter? (DM, HTN, Smoking, COPD, CAD, Cancer, CVA, ARF, Chemo, Hep., AIDS, mental health diagnosis, sleep apnea, morbid obesity)? @ -none Was patient admitted / discharged? Hospital course, mention meds given and route, prescriptions, significant lab abnormalities, going to OR and other pertinent info. @ - 53 female presents after AMA failed IV in for intractable nausea vomiting outpatient basis. Patient will admit for further evaluation and management need for permanent line placement due to difficult IV, patient does need consultation instruction regarding feeding tube Admitted Undiagnosed new problem with uncertain prognosis? @ -no Drug Therapy requiring intensive monitoring for toxicity (Heparin, Nitro, Insu debbi, Cardizem)? @ -no Were any procedures done? @ -no Diagnosis/symptom? @ -Weakness failure to thrive nausea vomiting diarrhea anorexia Acute, or Chronic, or Acute on Chronic? @ -Acute Uncomplicated (without systemic symptoms) or Complicated (systemic symptoms)? @ -Complicated Side effects of treatment? @ -no Exacerbation, Progression, or Severe Exacerbation? @ -exacerbation Poses a threat to life or bodily function? How? (Chest pain, USA, UT, pneumonia, PE, COPD, DKA, ARF, appy, cholecystitis, CVA, Diverticulitis, Homicidal, Suicidal, threat to staff... and all critical care pts) @ -yes (Jose Chacon) Reevaluation #5: Differential Weakness: Hypoglycemia, shock, sepsis, hyponatremia, anemia, infection, UT, ETOH, adverse medicine reaction, overdose, stroke, this is not meant to be an all-inclusive list. (Jose Chacon) - Consultations Consultation #1: Spoke with Dr. Leigh who agrees to admit this patient (Jose Chacon) Medical Decision Making <Peewee Gamez - Last Filed: 03/31/24 21:08> - Lab Data Result diagrams: 04/01/24 08:43 04/01/24 08:43 <Jose Chacon - Last Filed: 04/08/24 21:25> - Medical Decision Making I completed the quick note portion of this chart signed PETER Steele (Peewee Gamez) 53 female presents after AMA failed IV in for intractable nausea vomiting outpatient basis. Patient will admit for further evaluation and management need for permanent line placement due to difficult IV, patient does need consultation instruction regarding feeding tube (Jose Chacon) - Lab Data Lab Results 03/31/24 03/31/24 03/31/24 Range/Units 22:53 22:53 22:53 WBC 9.3 (3.8-10.6) k/uL RBC 4.20 (3.80-5.40) m/uL Hgb 11.8 (11.4-16.0) gm/dL Hct 36.1 (34.0-46.0) % MCV 86.1 (80.0-100.0) fL MCH 28.2 (25.0-35.0) pg MCHC 32.8 (31.0-37.0) g/dL RDW 14.0 (11.5-15.5) % Plt Count 356 (150-450) k/uL MPV 6.9 Neutrophils % 59 % Lymphocytes % 31 % Monocytes % 5 % Eosinophils % 2 % Basophils % 1 % Neutrophils # 5.5 (1.3-7.7) k/uL Lymphocytes # 2.9 (1.0-4.8) k/uL Monocytes # 0.5 (0-1.0) k/uL Eosinophils # 0.2 (0-0.7) k/uL Basophils # 0.1 (0-0.2) k/uL Sodium 137 (137-145) mmol/L Potassium 4.6 (3.5-5.1) mmol/L Chloride 99 (98-107) mmol/L Carbon Dioxide 29 (22-30) mmol/L Anion Gap 9 mmol/L BUN 13 (7-17) mg/dL Creatinine 0.86 (0.52-1.04) mg/dL Est GFR (CKD-EPI)AfAm >90 (>60 ml/min/1.73 sqM) Est GFR (CKD-EPI)NonAf 79 (>60 ml/min/1.73 sqM) Glucose 117 H (74-99) mg/dL Plasma Lactic Acid Antoni 1.1 (0.7-2.0) mmol/L Calcium 9.7 (8.4-10.2) mg/dL Magnesium 1.8 (1.6-2.3) mg/dL Total Bilirubin 0.6 (0.2-1.3) mg/dL AST 28 (14-36) U/L ALT 14 (4-34) U/L Alkaline Phosphatase 53 (38-126) U/L Total Protein 7.6 (6.3-8.2) g/dL Albumin 4.4 (3.5-5.0) g/dL Amylase 56 (30-110) U/L Lipase 17 L (23-300) U/L Disposition <Peewee Gamez - Last Filed: 03/31/24 21:08> Is patient prescribed a controlled substance at d/c from ED?: No Time of Disposition: 23:30 <Jose Chacon - Last Filed: 04/08/24 21:25> Clinical Impression: Abdominal pain, Gastroparesis, Multiple sclerosis, Intractable abdominal pain, Nausea & vomiting Disposition: ADMITTED IP TO THIS HOSP Condition: Fair
[2024-03-31] MEDS ORDERED: NALOXONE 0.4 MG/ML 1 ML VIAL IV PRN (23:16)
[2024-03-31] MEDS: ONDANSETRON 4 MG/2 ML VIAL IVP PRN (23:28)
[2024-03-31] MEDS: diphenhydrAMINE 50 MG/ML 1 ML VIAL IVP STA (23:32)
[2024-03-31] MEDS: HYDROmorphone 1 MG/ML 1 ML SYRINGE IM STA (23:33)
[2024-03-31 23:44] LABS: Basophils # (A) 0.1 k/uL (0-0.2); Basophils % (A) 1 %; Eosinophils # (A) 0.2 k/uL (0-0.7); Eosinophils % (A) 2 %; HCT 36.1 % (34.0-46.0); HGB 11.8 gm/dL (11.4-16.0); Lymphocytes # (A) 2.9 k/uL (1.0-4.8); Lymphocytes % (A) 31 %; MCH 28.2 pg (25.0-35.0); MCHC 32.8 g/dL (31.0-37.0); MCV 86.1 fL (80.0-100.0); Mean Platelet Volume 6.9; Monocytes # (A) 0.5 k/uL (0-1.0); Monocytes % (A) 5 %; Neutrophils # (A) 5.5 k/uL (1.3-7.7); Neutrophils % (A) 59 %; Platelet Count 356 k/uL (150-450); WBC 9.3 k/uL (3.8-10.6)
[2024-03-31 23:55] LABS: ALT 14 U/L (4-34); AST 28 U/L (14-36); African American GFR (CKD) >90 (>60 ml/min/1.73 sqM); Albumin 4.4 g/dL (3.5-5.0); Alkaline Phosphatase 53 U/L (38-126); Amylase 56 U/L (30-110); Anion Gap 9 mmol/L; Blood Urea Nitrogen 13 mg/dL (7-17); Calcium 9.7 mg/dL (8.4-10.2); Carbon Dioxide 29 mmol/L (22-30); Chloride 99 mmol/L (98-107); Glucose 117 mg/dL (74-99); Lipase 17 U/L (23-300); Magnesium 1.8 mg/dL (1.6-2.3); Non-African American GFR(CKD) 79 (>60 ml/min/1.73 sqM); Potassium 4.6 mmol/L (3.5-5.1); Sodium 137 mmol/L (137-145); Total Bilirubin 0.6 mg/dL (0.2-1.3); Total Protein 7.6 g/dL (6.3-8.2)
[2024-04-01] MEDS: ONDANSETRON 4 MG/2 ML VIAL IM STA (03:44)
[2024-04-01] MEDS: droPERidol 5 MG/2 ML VIAL IVP ONE (05:43)
[2024-04-01] MEDS: ONDANSETRON ODT 4 MG TAB PO STA (05:44)
[2024-04-01] MEDS: HYDROmorphone 1 MG/ML 1 ML SYRINGE IVP STA (05:49)
[2024-04-01] MEDS: SODIUM CHLORIDE 0.9% 1,000 ML IV STA (05:52)
[2024-04-01] MEDS: diphenhydrAMINE 50 MG/ML 1 ML VIAL IVP PRN (05:54)
[2024-04-01] MEDS: SCOPOLAMINE 1 MG/72 HR PATCH TRANSDERM STA (05:56)
[2024-04-01 09:22] LABS: Basophils # (A) 0.1 k/uL (0-0.2); Basophils % (A) 1 %; Eosinophils # (A) 0.3 k/uL (0-0.7); Eosinophils % (A) 4 %; HCT 31.6 % (34.0-46.0); HGB 10.2 gm/dL (11.4-16.0); Hypochromasia Slight; Lymphocytes # (A) 2.7 k/uL (1.0-4.8); Lymphocytes % (A) 38 %; MCH 28.1 pg (25.0-35.0); MCHC 32.2 g/dL (31.0-37.0); MCV 87.4 fL (80.0-100.0); Mean Platelet Volume 6.8; Monocytes # (A) 0.5 k/uL (0-1.0); Monocytes % (A) 7 %; Neutrophils # (A) 3.4 k/uL (1.3-7.7); Neutrophils % (A) 48 %; Platelet Count 310 k/uL (150-450); RBC 3.62 m/uL (3.80-5.40); RDW 13.9 % (11.5-15.5); WBC 7.2 k/uL (3.8-10.6)
[2024-04-01] MEDS: HYDROmorphone 1 MG/ML 1 ML SYRINGE IVP PRN (09:40)
[2024-04-01 09:47] LABS: ALT 11 U/L (4-34); AST 18 U/L (14-36); African American GFR (CKD) >90 (>60 ml/min/1.73 sqM); Albumin 3.6 g/dL (3.5-5.0); Alkaline Phosphatase 51 U/L (38-126); Anion Gap 7 mmol/L; Blood Urea Nitrogen 14 mg/dL (7-17); Carbon Dioxide 27 mmol/L (22-30); Chloride 104 mmol/L (98-107); Glucose 89 mg/dL (74-99); Magnesium 1.7 mg/dL (1.6-2.3); Non-African American GFR(CKD) 84 (>60 ml/min/1.73 sqM); Phosphorus 3.9 mg/dL (2.5-4.5); Potassium 4.4 mmol/L (3.5-5.1); Sodium 138 mmol/L (137-145); Total Bilirubin 0.4 mg/dL (0.2-1.3); Total Protein 6.2 g/dL (6.3-8.2)
[2024-04-01] MEDS ORDERED: ONDANSETRON ODT 8 MG TAB.RAPDIS PO PRN (10:34)
[2024-04-01] MEDS ORDERED: SUMATRIPTAN SUCCINATE 6 MG/0.5 ML SQ PRN (10:34)
[2024-04-01] MEDS ORDERED: oxyCODONE-APAP 10-325MG 1 EACH TAB PO PRN (10:34)
[2024-04-01] MEDS: ONDANSETRON 4 MG/2 ML VIAL IVP PRN (13:16)
--- NOTE | 2024-04-01 13:43 | US ---
EXAMINATION TYPE: US venous doppler duplex UE LT DATE OF EXAM: 04/01/2024 COMPARISON: NONE CLINICAL INDICATION: Female, 53 years old with history of swelling , previous IV site; Left arm pain and lump at previous IV site. TECHNIQUE: Grayscale, color Doppler and spectral Doppler imaging of the upper extremity. SIDE PERFORMED: Left FINDINGS: Left Arm: Clot visualized in Cephalic Vein from forearm to right above elbow. All other vessels are n egative for DVT. IMPRESSION: 1. Exam positive for SVT involving the cephalic vein from the forearm to just above the elbow. 3. No evidence for DVT within the left upper extremity. [facility], , 04/01/2024 1:40 PM
--- NOTE | 2024-04-01 15:47 | P.GSCN ---
History of Present Illness Consult date: 04/01/24 Reason for Consult: Intractable vomiting History of present illness: 53-year-old female known to our service from recent admission 1 to 2 weeks ago. Patient with recent percutaneous GJ tube placement. Apparently when they used the catheter last she had episodes of vomiting. States the emesis was the tube feeds itself. thinks they were using the gastrostomy port for feeding however. Does not sound like this was used at home. Per the family insurance company is denying paying for tube feeds for this patient. Patient says her pain is better. She has very poor IV access. She is also here for Port-A-Cath placement. Previous port was removed because of infection it appears. Review of Systems The patient denies any acute changes in vision or hearing, no dysphagia or odynophagia, no chest pain or shortness of breath, no dysuria or hematuria, no headache, no runny nose, no rectal bleeding or melena, no unexplained weight loss Past Medical History Past Medical History: Asthma, Diabetes Mellitus, GERD/Reflux, Musculoskeletal Disorder, Neurologic Disorder, Sleep Apnea/CPAP/BIPAP, Thyroid Disorder Additional Past Medical History / Comment(s): MS, back pain, DDD, optic neuritis, Gastroparesis., C-Diff (June 2018) leukopenia (sores in mouth) migraines, sleep apnea due to M.S. (no machine), sarcoidosis, cyst in stomach. , hopitalized 10/04/19 after lumbar puncture because heart rate dropped, hospitalized 10/10/19 for headache (post l.p.), states allergy to all adhesive and needs benadryl IV 50mg prior to using tape or tegaderm etc. History of Any Multi-Drug Resistant Organisms: C-DIFF Year Discovered:: 2018 MDRO Source:: stool Past Surgical History: Bladder Surgery, Breast Surgery, Hernia Repair, Hysterectomy, Orthopedic Surgery, Tubal Ligation Additional Past Surgical History / Comment(s): rhinoplasty, bladder suspension, breast sx, morphine pump, RT KNEE SCOPE, TUMMY TUCK, Spinal cord stimulator inserted and removed. port august 2019, gastroparesis botox and EGD 11/06/2019, breast implants, gastric surgery (g-poem) 05/05/20, Stent placed on kidney, hernia repair X2 Past Anesthesia/Blood Transfusion Reactions: Motion Sickness, Postoperative Nausea & Vomiting (PONV) Past Psychological History: No Psychological Hx Reported Additional Psychological History / Comment(s): . Smoking Status: Never smoker Past Alcohol Use History: Occasional Past Drug Use History: None Reported - Past Family History Father History Unknown: Yes Family Medical History: No Reported History Additional Family Medical History / Comment(s): . Mother History Unknown: Yes Family Medical History: No Reported History Additional Family Medical History / Comment(s): NO FAMILY HISTORY Medications and Allergies Home Medications Medication Instructions Recorded Confirmed Type DULoxetine HCL [Cymbalta] 60 mg PO DAILY 01/10/17 04/01/24 History metFORMIN HCL [Glucophage] 500 mg PO BID #60 tab 02/10/18 04/01/24 Rx Levothyroxine Sodium [Synthroid] 112 mcg PO DAILY 12/05/18 04/01/24 History rOPINIRole HCL [Requip] 2 mg PO TID 12/05/18 04/01/24 History Baclofen 10 mg PO TID 04/29/19 04/01/24 History Ondansetron Odt [Zofran ODT] 8 mg PO DAILY PRN 11/13/19 04/01/24 History Pantoprazole Sodium [Protonix] 40 mg PO BID 05/10/20 04/01/24 History SUMAtriptan succinate 6 mg SQ BID PRN 05/10/20 04/01/24 History methocarbamoL [Robaxin] 500 mg PO TID 05/10/20 04/01/24 History Infliximab-Dyyb [Inflectra] 1 dose IV Q42D 05/23/20 04/01/24 History ALPRAZolam [Xanax] 0.25 mg PO BID 11/05/22 04/01/24 History Albuterol Inhaler [Ventolin Hfa 2 puff INHALATION RT-Q6H PRN 11/05/22 04/01/24 History Inhaler] Albuterol Nebulized [Ventolin 2.5 mg INHALATION RT-QID PRN 07/12/23 04/01/24 History Nebulized] Patient Own Pump 0 bag 09/06/23 History Gabapentin 300 mg PO TID 03/22/24 04/01/24 History oxyCODONE-APAP 10-325MG [Percocet 1 tab PO BID PRN 7 Days #14 tab 03/25/24 04/01/24 Rx 10-325 mg] Allergies Allergy/AdvReac Type Severity Reaction Status Date / Time adhesive Allergy Severe Rash/Hives Verified 04/01/24 06:48 adhesive tape Allergy Severe Rash/Hives Verified 04/01/24 06:48 fentanyl Allergy Severe Rash/Hives Verified 04/01/24 06:48 from patch only latex Allergy Severe Rash/Hives Verified 04/01/24 06:48 metoclopramide [From Reglan] Allergy dystonia Verified 04/01/24 06:48 from IV Reglan prochlorperazine Allergy dystonia Verified 04/01/24 06:48 [From Compazine] Surgical - Exam Vital Signs Temp Pulse Resp BP Pulse Ox 98.1 F 76 18 126/91 98 03/31/24 21:01 03/31/24 21:01 03/31/24 21:01 03/31/24 21:01 03/31/24 21:01 Physical exam: General: Well-developed, well-nourished HEENT: Normocephalic, sclerae nonicteric Abdomen: Nontender, nondistended, upper abdominal GJ tube in place Extremities: No edema Neuro: Alert and oriented Results - Labs 04/01/24 08:43 04/01/24 08:43 Abnormal Lab Results - Last 24 Hours (Table) 03/31/24 04/01/24 04/01/24 Range/Units 22:53 08:43 08:43 RBC 3.62 L (3.80-5.40) m/uL Hgb 10.2 L (11.4-16.0) gm/dL Hct 31.6 L (34.0-46.0) % Glucose 117 H (74-99) mg/dL Total Protein 6.2 L (6.3-8.2) g/dL Lipase 17 L (23-300) U/L Diabetes panel 03/31/24 04/01/24 Range/Units 22:53 08:43 Sodium 137 138 (137-145) mmol/L Potassium 4.6 4.4 (3.5-5.1) mmol/L Chloride 99 104 (98-107) mmol/L Carbon Dioxide 29 27 (22-30) mmol/L BUN 13 14 (7-17) mg/dL Creatinine 0.86 0.81 (0.52-1.04) mg/dL Glucose 117 H 89 (74-99) mg/dL Calcium 9.7 9.0 (8.4-10.2) mg/dL AST 28 18 (14-36) U/L ALT 14 11 (4-34) U/L Alkaline Phosphatase 53 51 (38-126) U/L Total Protein 7.6 6.2 L (6.3-8.2) g/dL Albumin 4.4 3.6 (3.5-5.0) g/dL Calcium panel 03/31/24 04/01/24 Range/Units 22:53 08:43 Calcium 9.7 9.0 (8.4-10.2) mg/dL Phosphorus 3.9 (2.5-4.5) mg/dL Albumin 4.4 3.6 (3.5-5.0) g/dL Pituitary panel 03/31/24 04/01/24 Range/Units 22:53 08:43 Sodium 137 138 (137-145) mmol/L Potassium 4.6 4.4 (3.5-5.1) mmol/L Chloride 99 104 (98-107) mmol/L Carbon Dioxide 29 27 (22-30) mmol/L BUN 13 14 (7-17) mg/dL Creatinine 0.86 0.81 (0.52-1.04) mg/dL Glucose 117 H 89 (74-99) mg/dL Calcium 9.7 9.0 (8.4-10.2) mg/dL Adrenal panel 03/31/24 04/01/24 Range/Units 22:53 08:43 Sodium 137 138 (137-145) mmol/L Potassium 4.6 4.4 (3.5-5.1) mmol/L Chloride 99 104 (98-107) mmol/L Carbon Dioxide 29 27 (22-30) mmol/L BUN 13 14 (7-17) mg/dL Creatinine 0.86 0.81 (0.52-1.04) mg/dL Glucose 117 H 89 (74-99) mg/dL Calcium 9.7 9.0 (8.4-10.2) mg/dL Total Bilirubin 0.6 0.4 (0.2-1.3) mg/dL AST 28 18 (14-36) U/L ALT 14 11 (4-34) U/L Alkaline Phosphatase 53 51 (38-126) U/L Total Protein 7.6 6.2 L (6.3-8.2) g/dL Albumin 4.4 3.6 (3.5-5.0) g/dL Assessment and Plan (1) Gastroparesis Narrative/Plan: 53-year-old female with reported history of multiple sclerosis and gastroparesis. Apparently had a GJ tube placed for that reason. Spoke with family at length. Does not make sense to remove this at this time since it really has never been utilized. For step would be checking to see where the tip of the J-tube is located. Will order a small bowel study through the J-tube to confirm appropriate placement. Following that would recommend restarting tube feeds via pump through the J-tube port. If patient has further vomiting with that this will need to be addressed further. Discussed with her that Port-A-Cath placement is an option. Will discuss with Dr. Denney who will be covering me for 1 week after today. Tentatively will schedule for tomorrow. Current Visit: Yes Status: Acute Code(s): K31.84 - GASTROPARESIS SNOMED Code(s): 402561984
[2024-04-01] MEDS: PANTOPRAZOLE 40 MG TABLET PO SCH (16:35)
[2024-04-01] MEDS: GABAPENTIN 300 MG CAP PO SCH (16:35)
[2024-04-01] MEDS: ALPRAZolam 0.25 MG TAB PO SCH (20:00)
--- NOTE | 2024-04-01 21:05 | HP ---
HISTORY AND PHYSICAL HISTORY OF PRESENT ILLNESS: The patient signed out AMA due to inability of the nursing to get an IV site yesterday. She went home. She came back due to severe pain. She PEG tube feedings at home, and she normally gets IV sites. Her port is to be replaced as she gets long-term IV infusions every month due to history of sarcoidosis. She has severe gastroparesis, nausea, and vomiting. She is unhappy with the surgery for the G-tube. She was noncompliant during the G-tube with gastroparesis, nausea, vomiting, chronic pain. HOME MEDICATIONS: 1. Cymbalta 60 daily. 2. Synthroid 112 daily. 3. Requip 2 mg t.i.d. 4. Baclofen 10 t.i.d. 5. Pantoprazole 40 b.i.d. 6. Sumatriptan 6 mg every 42 days IV. 7. 0.25 b.i.d. nebulizer treatments. 8. Gabapentin. ALLERGIES: Adhesive tape, fentanyl, Reglan, Compazine. PAST MEDICAL HISTORY: Diabetes mellitus, GERD, musculoskeletal disorder, neurologic disorder, sleep apnea, hypothyroidism, MS, degenerative disk disease, C diff, migraines, sleep apnea, sarcoidosis, noncompliant with CPAP machine, bladder surgery, breast surgery, hernia repair, hysterectomy, orthopedic surgery, tubal ligation, rhinoscopy, spinal cord stimulator, gastroparesis, Botox, breast implants, gastric surgery, hernia repair x2. FAMILY HISTORY: Father, negative. Mother, negative. PHYSICAL EXAMINATION: CARDIOVASCULAR: S1 and S2. LUNGS: Transmitted upper sounds. HEMATOLOGY: Negative Homans. PSYCHIATRIC: Fair mood and affect. GI: Soft. NEUROLOGIC: Cranial nerves intact. EXTREMITIES: No cyanosis, clubbing, edema. NEUROLOGIC: Alert and oriented x3. She has a PEG tube in place. She has chronic cervical lumbar disk pain, paraspinal muscle tenderness. VITAL SIGNS: Temperature 98.1, pulse 70 to 76, blood pressure 126/91, O2 saturation 98, respiratory rate [address] Sanders was covering me, admitted the patient, and I am doing history and physical. She had left AMA due to inability for IV access. She had a port placed per Dr. Licea for long-term sarcoidosis treatments and MS treatments. Prognosis guarded. Please see further orders. MMODL / IJN: [id number] /
--- NOTE | 2024-04-01 21:57 | P.CONS ---
History of Present Illness - Reason for Consult Consult date: 04/01/24 Patient known Requesting physician: Sean Wynne - Chief Complaint Nausea and vomiting x few days - History of Present Illness Patient is a 53-year-old female with a past medical history significant for diabetes mellitus reflux sleep apnea with a recent PEG tube placement at [facility] for diabetic gastroparesis and recurrent vomiting subsequently admitted at this facility after the procedure because she did not like care at that facility patient was here for about a week and was just discharged yesterday home as the patient mention she did not like the care provided to her on the fourth floor and presenting back to the hospital concerning for persistent nausea and vomiting patient also mention she did have a left forearm swelling and redness over the last few days at the site of IV that was subsequently discontinued however no ultrasound was done and is concerned about possible blood clot in the area patient be complaining of pain to the left forearm to be dull aching to throbbing mild to moderate intensity without any relation with associated swelling admits patient denies having any fever or any chills and no fever have been counted on presentation to the hospital patient was not tachycardic hypotensive or hypoxic she did have white count of 9.3 creatinine 0.86 electrolytes are normal liver enzymes are normal infectious disease was consulted with recent patient on Review of Systems Positive point and negatives has been mentioned in the HPI, complete review of systems was performed and all other systems are negative Past Medical History Past Medical History: Asthma, Diabetes Mellitus, GERD/Reflux, Musculoskeletal Disorder, Neurologic Disorder, Sleep Apnea/CPAP/BIPAP, Thyroid Disorder Additional Past Medical History / Comment(s): MS, back pain, DDD, optic neuritis, Gastroparesis., C-Diff (June 2018) leukopenia (sores in mouth) migraines, sleep apnea due to M.S. (no machine), sarcoidosis, cyst in stomach. , hopitalized 10/04/19 after lumbar puncture because heart rate dropped, hospitalized 10/10/19 for headache (post l.p.), states allergy to all adhesive and needs benadryl IV 50mg prior to using tape or tegaderm etc. History of Any Multi-Drug Resistant Organisms: C-DIFF Year Discovered:: 2018 MDRO Source:: stool Past Surgical History: Bladder Surgery, Breast Surgery, Hernia Repair, Hysterectomy, Orthopedic Surgery, Tubal Ligation Additional Past Surgical History / Comment(s): rhinoplasty, bladder suspension, breast sx, morphine pump, RT KNEE SCOPE, TUMMY TUCK, Spinal cord stimulator inserted and removed. port august 2019, gastroparesis botox and EGD 11/06/2019, breast implants, gastric surgery (g-poem) 05/05/20, Stent placed on kidney, hernia repair X2 Past Anesthesia/Blood Transfusion Reactions: Motion Sickness, Postoperative Nausea & Vomiting (PONV) Past Psychological History: No Psychological Hx Reported Additional Psychological History / Comment(s): . Smoking Status: Never smoker Past Alcohol Use History: Occasional Past Drug Use History: None Reported - Past Family History Father History Unknown: Yes Family Medical History: No Reported History Additional Family Medical History / Comment(s): . Mother History Unknown: Yes Family Medical History: No Reported History Additional Family Medical History / Comment(s): NO FAMILY HISTORY Medications and Allergies Home Medications Medication Instructions Recorded Confirmed Type DULoxetine HCL [Cymbalta] 60 mg PO DAILY 01/10/17 04/01/24 History Levothyroxine Sodium [Synthroid] 112 mcg PO DAILY 12/05/18 04/01/24 History rOPINIRole HCL [Requip] 2 mg PO TID 12/05/18 04/01/24 History Baclofen 10 mg PO TID 04/29/19 04/01/24 History Ondansetron Odt [Zofran ODT] 8 mg PO DAILY PRN 11/13/19 04/01/24 History Pantoprazole Sodium [Protonix] 40 mg PO BID 05/10/20 04/01/24 History SUMAtriptan succinate 6 mg SQ BID PRN 05/10/20 04/01/24 History methocarbamoL [Robaxin] 500 mg PO TID 05/10/20 04/01/24 History Infliximab-Dyyb [Inflectra] 1 dose IV Q42D 05/23/20 04/01/24 History ALPRAZolam [Xanax] 0.25 mg PO BID 11/05/22 04/01/24 History Albuterol Inhaler [Ventolin Hfa 2 puff INHALATION RT-Q6H PRN 11/05/22 04/01/24 History Inhaler] Albuterol Nebulized [Ventolin 2.5 mg INHALATION RT-QID PRN 07/12/23 04/01/24 History Nebulized] Gabapentin 300 mg PO TID 03/22/24 04/01/24 History oxyCODONE-APAP 10-325MG [Percocet 1 tab PO BID PRN 7 Days #14 tab 03/25/24 04/01/24 Rx 10-325 mg] Allergies Allergy/AdvReac Type Severity Reaction Status Date / Time adhesive Allergy Severe Rash/Hives Verified 04/02/24 10:39 adhesive tape Allergy Severe Rash/Hives Verified 04/02/24 10:39 fentanyl Allergy Severe Rash/Hives Verified 04/02/24 10:39 from patch only latex Allergy Severe Rash/Hives Verified 04/02/24 10:39 metoclopramide [From Reglan] Allergy dystonia Verified 04/02/24 10:39 from IV Reglan micafungin Allergy Diarrhea Verified 04/02/24 10:41 prochlorperazine Allergy dystonia Verified 04/02/24 10:39 [From Compazine] Physical Exam Vitals: Vital Signs Temp Pulse Pulse Resp BP BP Pulse Ox 04/01/24 07:47 98.4 F 73 18 133/87 99 04/01/24 07:28 75 18 126/74 99 04/01/24 01:30 98.7 F 87 18 117/84 99 03/31/24 21:01 98.1 F 76 18 126/91 98 Intake and Output 03/31/24 04/01/24 04/01/24 22:59 06:59 14:59 Other: Voiding Method Toilet Weight 90.718 kg 90.718 kg GENERAL DESCRIPTION: Middle-aged female lying in bed, no distress. No tachypnea or accessory muscle of respiration use. HEENT: Shows Pallor , no scleral icterus. Oral mucous membrane is dry. NECK: Trachea central, no thyromegaly. LUNGS: Unlabored breathing. Clear to auscultation anteriorly. No wheeze or crackle. HEART: S1, S2, regular rate and rhythm. No loud murmur ABDOMEN: Soft, PEG tube site with no swelling redness or drainage EXTREMITIES: Left forearm did have swelling minimal redness slightly tender to touch SKIN: No rash, no masses palpable. NEUROLOGICAL: The patient is awake, alert, oriented x3, mood and affect normal. Results CBC & Chem 7: 04/01/24 08:43 04/01/24 08:43 Labs: Abnormal Lab Results - Last 24 Hours (Table) 03/31/24 04/01/24 04/01/24 Range/Units 22:53 08:43 08:43 RBC 3.62 L (3.80-5.40) m/uL Hgb 10.2 L (11.4-16.0) gm/dL Hct 31.6 L (34.0-46.0) % Glucose 117 H (74-99) mg/dL Total Protein 6.2 L (6.3-8.2) g/dL Lipase 17 L (23-300) U/L Assessment and Plan (1) Phlebitis Status: Acute Code(s): I80.9 - PHLEBITIS AND THROMBOPHLEBITIS OF UNSPECIFIED SITE SNOMED Code(s): 60707550 Plan: 1patient presenting to the hospital with nausea and vomiting concern for diabetic gastroparesis and recently did have a PEG tube placement at [facility] the patient did not like her PEG tube and has been concerned about functioning of the tube currently there is no evidence of any cellulitis at the PEG tube site patient not running any fever or elevated white count. 2patient did have erythema to the left forearm and some swelling more likely du e to phlebitis from a previous IV not behaving as a septic phlebitis with no fever or elevated white count 3-patient has been advised to apply cold compression to the area of swelling to the left forearm keep it elevated and we will check an ultrasound of the left forearm 4-no need for systemic antibiotic therapy at this point We will follow on clinical condition and cultures to further adjust medication if needed Thank you for this consultation we will follow the patient along with you Dictation was produced using [employer] dictation software. please excuse any grammatical, word or spelling errors. Time with Patient: Greater than 30
[2024-04-02] MEDS: LEVOTHYROXINE 112 MCG TAB PO SCH (00:29)
[2024-04-02] MEDS: DULoxetine HCL 60 MG CAPSULE.DR PO SCH (10:37)
[2024-04-02] MEDS: IOPAMIDOL-370 100ML BTL MISCELLANE ONE ×2 (10:44→12:06)
[2024-04-02] MEDS: BUPIVACAINE (PF) 0.25% 30 ML VIAL SQ ONE ×2 (10:44→12:06)
[2024-04-02] MEDS ORDERED: CITRIC ACID-SODIUM CITRATE 15 ML CUP PO ONE (10:53)
[2024-04-02] MEDS: DEXAMETHASONE SOD PHOSPHATE 4 MG/ML 1 ML VIAL IVP STA (10:55)
[2024-04-02] MEDS: LACTATED RINGERS 1,000 ML BAG IV STA (10:56)
[2024-04-02] MEDS: CITRIC ACID-SODIUM CITRATE 15 ML CUP PO ONE (11:01)
[2024-04-02 11:04] LABS: Glucose,Whole Blood 87 mg/dL (70-110)
[2024-04-02] MEDS: IV FLUID CONTINUATION 1,000 ML IV ONE (11:37)
--- NOTE | 2024-04-02 11:38 | P.PN ---
Progress Note - Text Progress Note Date: 04/02/[address] Port-A-Cath today.
[2024-04-02] MEDS ORDERED: LACTATED RINGERS 1,000 ML IV SCH (11:45)
--- NOTE | 2024-04-02 12:17 | P.OP ---
Date of Procedure: 04/02/24 Preoperative Diagnosis: Malnutrition Postoperative Diagnosis: Malnutrition Procedure(s) Performed: Port-A-Cath placement left subclavian Anesthesia: MINH Surgeon: Skyler Denney Estimated Blood Loss (ml): 5 Pathology: none sent Condition: stable Disposition: PACU Description of Procedure: The patient was placed on the operating table in the supine position. The patient received IV sedation. The patient's chest was prepped and draped in the usual sterile fashion. A roll had been placed between the shoulder blades in a longitudinal fashion. After prepping and draping the skin was anesthetized 1% local Xylocaine. And then using the Seldinger technique the subclavian vein was cannulated. A wire was placed into the vein and fluoroscopy position the wire at the atrial caval junction. Next the dilator sheath was placed over top the wire and the wire was withdrawn. The catheter was positioned at the atriocaval position. The catheter was placed through the sheath after the dilator was withdrawn. The sheath was then withdrawn. Position of the catheter was confirm ed with fluoroscopy. The Port-A-Cath was connected to the catheter. The Port-A-Cath was flushed with saline and then heparinized saline. The skin was closed interrupted 3-0 Monocryl suture. Dermabond was applied. Patient tolerated procedure well and was sent to recovery room stable condition.
[2024-04-02] MEDS ORDERED: PHENYLEPHRINE-0.9% NACL SYG 1,000 MCG/10 ML SYRINGE ONE (12:28)
[2024-04-02] MEDS ORDERED: fentaNYL (PF) 50 MCG/ML 2 ML AMP ONE (12:28)
[2024-04-02] MEDS ORDERED: LIDOCAINE 1% INJ 10MG/ML (20 ML MDV) ONE (12:28)
[2024-04-02] MEDS ORDERED: SUCCINYLCHOLINE CHLORIDE 200 MG/10 ML VIAL IV ONE (12:28)
[2024-04-02] MEDS ORDERED: MIDAZOLAM 2 MG/2 ML VIAL ONE (12:28)
[2024-04-02] MEDS ORDERED: PROPOFOL 10 MG/ML 20 ML VIAL IV ONE (12:28)
--- NOTE | 2024-04-02 12:39 | FL ---
EXAMINATION TYPE: FL guided central line placemt DATE OF EXAM: 04/02/2024 FLUOROSCOPY PORT-A-CATH PLACEMENT. 4 SECS FL. 0.3074 DAP. One image is submitted. [facility], , 04/02/2024 12:37 PM
--- NOTE | 2024-04-02 13:23 | XR ---
EXAMINATION TYPE: XR chest 1V portable DATE OF EXAM: 04/02/2024 1:17 PM COMPARISON: 03/29/2024 CLINICAL INDICATION: Female, 53 years old with history of Left subclavian Port-A-Cath, , FINDINGS: Left anterior chest wall injection port with subclavian access and catheter tip at the mid to lower SVC level. Low lung volumes with crowded vascular markings and likely accentuating heart siz e which is upper limits of normal. No consolidation or pleural effusion. IMPRESSION: Left anterior chest wall injection port with subclavian access. Catheter tip mid to lower SVC. Hypove ntilatory changes in the lungs. [facility], , 04/02/2024 1:21 PM
--- NOTE | 2024-04-02 14:20 | XR ---
EXAMINATION TYPE: XR KUB DATE OF EXAM: 04/02/2024 2:01 PM COMPARISON: 04/17/2022 CLINICAL INDICATION: Female, 53 years old with history of EVALUATE PLACEMENT OF J-TUBE TIP, , FINDINGS: There is a jejunostomy tube present. This seems to course along the superior loop of the duodenum wit h tip near the expected proximal jejunum left upper quadrant. Opacification of the duodenum and a few proximal jejunal loops. Nonobstructive bowel gas pattern. No extravasation of contrast to suggest le ak. IMPRESSION: Jejunostomy tube follows the C-loop of the duodenum with tip in the proximal jejunum left upper quadr ant. [facility], , 04/02/2024 2:17 PM
[2024-04-02 14:22] VITALS: BP 152/101; PULSE 76; RESP 20; TEMP 98.8
== END 2024-04-02 15:30 | disposition home or self-care (01) | DRG 982 ==
LOC: EC 20:39 → 5NMEDONC 23:16 → 4SSUR 04-01 01:40 → 1SOBS 04-01 07:20
PROVIDERS: ADMIT Internal Medicine Sleep Medicine; ATTEND Internal Medicine Sleep Medicine
PROC: 02HV33Z Insertion of Infusion Device into Superior Vena Cava, Percutaneous Approach (ICD-10-PCS; 2024-04-02)
PROC: B5181ZA Fluoroscopy of Superior Vena Cava using Low Osmolar Contrast, Guidance (ICD-10-PCS; 2024-04-02)
PROC: B548ZZA Ultrasonography of Superior Vena Cava, Guidance (ICD-10-PCS; 2024-04-02)
PROC: 0JH60WZ Insertion of Totally Implantable Vascular Access Device into Chest Subcutaneous Tissue and Fascia, Open Approach (ICD-10-PCS; principal; 2024-04-02 07:30)
DX: E11.43 Type 2 diabetes mellitus with diabetic autonomic (poly)neuropathy (principal); E46 Unspecified protein-calorie malnutrition; D86.9 Sarcoidosis, unspecified; E03.9 Hypothyroidism, unspecified; G35 Multiple sclerosis; G89.29 Other chronic pain; I80.9 Phlebitis and thrombophlebitis of unspecified site; J45.909 Unspecified asthma, uncomplicated; K31.84 Gastroparesis; Z79.84 Long term (current) use of oral hypoglycemic drugs; Z79.890 Hormone replacement therapy; Z79.899 Other long term (current) drug therapy; Z90.710 Acquired absence of both cervix and uterus; Z91.199 Patient's noncompliance with other medical treatment and regimen due to unspecified reason; Z93.1 Gastrostomy status; Z98.82 Breast implant status; Z87.19 Personal history of other diseases of the digestive system; Z98.51 Tubal ligation status; Z68.34 Body mass index [BMI] 34.0-34.9, adult; Z88.1 Allergy status to other antibiotic agents; Z88.5 Allergy status to narcotic agent; Z91.048 Other nonmedicinal substance allergy status; Z91.040 Latex allergy status
CPT/HCPCS: 36415; 71045; 74018; 77001; 80053; 82150; 83605; 83690; 83735; 84100; 85025; 96361; 96372; 96374; 96375; 96376; 99284

== ENCOUNTER 2024-04-07 03:52 | Inpatient (IN) | payer MEDICARE, OTHER ==
--- NOTE | 2024-04-07 04:12 | ED ---
General Adult HPI - General Source: patient Mode of arrival: ambulatory Limitations: no limitations <Jacob Garland - Last Filed: 04/07/24 07:10> <Jose Stuart - Last Filed: 04/07/24 08:16> - General Chief complaint: Abdominal Pain Stated complaint: vomiting Time Seen by Provider: 04/07/24 03:57 - History of Present Illness Initial comments: Dictation was produced using [employer] dictation software. please excuse any grammatical, word or spelling errors. Chief Complaint: 53-year-old female presents to the emergency department with persistent nausea vomiting History of Present Illness: Patient is a 53-year-old female she has history of sarcoidosis with resultant gastroparesis. She recently had a port placed. She has a gastrojejunostomy tube. Patient states that she is unable to keep anything down and has persistent protracted vomiting. She was told by her primary care doctor to come to the emergency department to be admitted couple days ago however she is trying to stick it out for the holidays. Patient has any fever, chills or night sweats. Complains of some diffuse abdominal pain. Patient specialist is from [facility] The ROS documented in this emergency department record has been reviewed and confirmed by me. Those systems with pertinent positive or negative responses have been documented in the HPI. All other systems are other negative and/or noncontributory. (Jacob Garland) - Related Data Home Medications Medication Instructions Recorded Confirmed DULoxetine HCL [Cymbalta] 60 mg PO DAILY 01/10/17 04/01/24 Levothyroxine Sodium [Synthroid] 112 mcg PO DAILY 12/05/18 04/01/24 rOPINIRole HCL [Requip] 2 mg PO TID 12/05/18 04/01/24 Baclofen 10 mg PO TID 04/29/19 04/01/24 Ondansetron Odt [Zofran ODT] 8 mg PO DAILY PRN 11/13/19 04/01/24 Pantoprazole Sodium [Protonix] 40 mg PO BID 05/10/20 04/01/24 SUMAtriptan succinate 6 mg SQ BID PRN 05/10/20 04/01/24 methocarbamoL [Robaxin] 500 mg PO TID 05/10/20 04/01/24 Infliximab-Dyyb [Inflectra] 1 dose IV Q42D 05/23/20 04/01/24 ALPRAZolam [Xanax] 0.25 mg PO BID 11/05/22 04/01/24 Albuterol Inhaler [Ventolin Hfa 2 puff INHALATION RT-Q6H PRN 11/05/22 04/01/24 Inhaler] Albuterol Nebulized [Ventolin 2.5 mg INHALATION RT-QID PRN 07/12/23 04/01/24 Nebulized] Gabapentin 300 mg PO TID 03/22/24 04/01/24 Previous Rx's Medication Instructions Recorded oxyCODONE-APAP 10-325MG [Percocet 1 tab PO BID PRN 7 Days #14 tab 03/25/24 10-325 mg] Allergies Allergy/AdvReac Type Severity Reaction Status Date / Time adhesive Allergy Severe Rash/Hives Verified 04/07/24 03:59 adhesive tape Allergy Severe Rash/Hives Verified 04/07/24 03:59 fentanyl Allergy Severe Rash/Hives Verified 04/07/24 03:59 from patch only latex Allergy Severe Rash/Hives Verified 04/07/24 03:59 metoclopramide [From Reglan] Allergy dystonia Verified 04/07/24 03:59 from IV Reglan micafungin Allergy Diarrhea Verified 04/07/24 03:59 prochlorperazine Allergy dystonia Verified 04/07/24 03:59 [From Compazine] Review of Systems ROS Other: All systems not noted in ROS Statement are negative. <Jacob Garland - Last Filed: 04/07/24 07:10> ROS Other: All systems not noted in ROS Statement are negative. <Jose Stuart - Last Filed: 04/07/24 08:16> ROS Statement: Those systems with pertinent positive or pertinent negative responses have been documented in the HPI. Past Medical History Past Medical History: Asthma, Diabetes Mellitus, GERD/Reflux, Musculoskeletal Disorder, Neurologic Disorder, Sleep Apnea/CPAP/BIPAP, Thyroid Disorder Additional Past Medical History / Comment(s): MS, back pain, DDD, optic neuritis, Gastroparesis., C-Diff (June 2018) leukopenia (sores in mouth) migraines, sleep apnea due to M.S. (no machine), sarcoidosis, cyst in stomach. , hopitalized 7/3/20 after lumbar puncture because heart rate dropped, hospitalized 10/10/19 for headache (post l.p.), states allergy to all adhesive and needs benadryl IV 50mg prior to using tape or tegaderm etc. History of Any Multi-Drug Resistant Organisms: C-DIFF Date of last positivie culture/infection: 2018 MDRO Source:: stool Past Surgical History: Bladder Surgery, Breast Surgery, Hernia Repair, Hysterectomy, Orthopedic Surgery, Tubal Ligation Additional Past Surgical History / Comment(s): rhinoplasty, bladder suspension, breast sx, morphine pump, RT KNEE SCOPE, TUMMY TUCK, Spinal cord stimulator inserted and removed. port august 2019, gastroparesis botox and EGD 11/06/2019, breast implants, gastric surgery (g-poem) 05/05/20, Stent placed on kidney, hernia repair X2 Past Anesthesia/Blood Transfusion Reactions: Motion Sickness, Postoperative Nausea & Vomiting (PONV) Past Psychological History: No Psychological Hx Reported Smoking Status: Never smoker Past Alcohol Use History: Occasional Past Drug Use History: None Reported - Past Family History Father History Unknown: Yes Family Medical History: No Reported History Additional Family Medical History / Comment(s): . Mother History Unknown: Yes Family Medical History: No Reported History Additional Family Medical History / Comment(s): NO FAMILY HISTORY <Jacob Garland - Last Filed: 04/07/24 07:10> General Exam Limitations: no limitations <Jacob Garland - Last Filed: 04/07/24 07:10> - General Exam Comments Initial Comments: PHYSICAL EXAM: General Impression: Alert and oriented x3, not in acute distress HEENT: Normocephalic atraumatic, extra-ocular movements intact, pupils equal and reactive to light bilaterally, mucous membranes moist. Cardiovascular: Heart regular rate and rhythm Chest: Able to complete full sentences, no retractions, no tachypnea Abdomen: abdomen soft, non-tender, non-distended, no organomegaly Musculoskeletal: Pulses present and equal in all extremities, no peripheral edema Motor: no focal deficits noted Neurological: CN II-XII grossly intact, no focal motor or sensory deficits noted Skin: Intact with no visualized rashes, surgical sites clean dry and intact Psych: Normal affect and mood (Jacob Garland) Course Vital Signs 04/07/24 04/07/24 04/07/24 03:55 06:37 07:50 Temperature 97.8 F 98.4 F Pulse Rate 94 84 80 Respiratory 18 18 18 Rate Blood Pressure 153/101 155/79 128/90 O2 Sat by Pulse 99 97 98 Oximetry Medical Decision Making - Lab Data Result diagrams: 04/07/24 06:26 04/07/24 06:26 <Jacob Garland - Last Filed: 04/07/24 07:10> - Lab Data Result diagrams: 04/07/24 06:26 04/07/24 06:26 <Jose Stuart - Last Filed: 04/07/24 08:16> - Medical Decision Making Was pt. sent in by a medical professional or institution (, PA, INSTRUMENTATION SUPERVISOR, urgent care, hospital, or [place] health care facility...) When possible be specific @ -No Did you speak to anyone other than the patient for history (EMS, parent, family, police, friend...)? What history was obtained from this source @ -No Did you review nursing and triage notes (agree or disagree)? Why? @ -I reviewed and agree with nursing and triage notes Were old charts reviewed (outside hosp., previous admission, EMS record, old EKG, old radiological studies, urgent care reports/EKG's, [place] health care facility records)? Report findings @ -No old charts were reviewed Differential Diagnosis (chest pain, altered mental status, abdominal pain women, abdominal pain men, vaginal bleeding, musculoskeletal, weakness, fever, dyspnea, syncope, headache, dizziness, GI bleed, back pain, seizure, CVA, palpatations, mental health)? @ -Differential Abdominal Pain Women: Appendicitis, Cholecystitis, diverticulosis, ischemic bowel, pancreatitis, hepatitis, UTI, gastroenteritis, AAA, incarcerated hernia, bowel obstruction, constipation, inflammatory bowel, hepatitis, peptic ulcer disease, splenic infarction, perforated viscus, vulvitis, ovarian torsion, PID, kidney stone, placenta abruption, this is not meant to be an all-inclusive list EKG interpreted by me (3pts min.). @ -None done X-rays interpreted by me (1pt min.). @ -None done CT interpreted by me (1pt min.). @ -Pending U/S interpreted by me (1pt. min.). @ -None done What testing was considered but not performed or refused? (CT, X-rays, U/S, labs)? Why? @ -None What meds were considered but not given or refused? Why? @ -None Was smoking cessation discussed for >3mins.? @ -No Were there social determinants of health that impacted care today? How? (Homelessness, low income, unemployed, alcoholism, drug addiction, stewart sportation, low edu. Level, literacy, decrease access to med. care, longterm, rehab)? @ -No Was there de-escalation of care discussed even if they declined (Discuss DNR or withdrawal of care, Hospice)? DNR status @ -No What co-morbidities impacted this encounter? (DM, HTN, Smoking, COPD, CAD, Cancer, CVA, ARF, Chemo, Hep., AIDS, mental health diagnosis, sleep apnea, morbid obesity)? @ -Port, sarcoidosis, gastroparesis Was patient admitted / discharged? Hospital course, mention meds given and rout e, prescriptions, significant lab abnormalities, going to OR and other pertinent info. @ -53-year-old female with history of sarcoidosis and extensive gastroparesis presents to the ER for intractable vomiting. She was instructed to come to be admitted. Vital signs are stable. Laboratory evaluation is unremarkable. Pending CT. Patient case signed out to Dr. Stuart at 7:00 AM Did you discuss the management of the patient with other professionals (professionals i.e. , PA, INSTRUMENTATION SUPERVISOR, lab, RT, psych nurse, medical social worker, canoe inspector final, teacher, staff readiness officer, upper caser)? Give summary @ -No Was critical care preformed (if so, how long)? @ -No Undiagnosed new problem with uncertain prognosis? @ -No Drug Therapy requiring intensive monitoring for toxicity (Heparin, Nitro, Insulin, Cardizem)? @ -No Were any procedures done? @ -No Diagnosis/symptom? Acute, or Chronic, or Acute on Chronic? Uncomplicated (without systemic symptoms) or Complicated (systemic symptoms)? @ -intractable vomitinin Side effects of treatment? @ -No Exacerbation, Progression, or Severe Exacerbation? @ -No Poses a threat to life or bodily function? How? (Chest pain, USA, VT, pneumonia, PE, COPD, DKA, ARF, appy, cholecystitis, CVA, Diverticulitis, Homicidal, Suicidal, threat to staff... and all critical care pts) @ -yes (Jacob Garland) EKG was interpreted by myself EKG shows a sinus rhythm at 70 bpm AL was 149 QRS is 82 QT interval 375 QTc is 408. EKG shows no ST segment ovation or depression. Was patient admitted / discharged? Hospital course, mention meds given and route, prescriptions, significant lab abnormalities, going to OR and other pertinent info. @ -Patient was signed out to me by Dr. Garland at 7:00. Patient's CAT scan came back was interpreted by myself as no acute abnormalities. I went back into reevaluate the patient she was feeling better after the IV Zofran but she stated she did not think she could go home because she continues to vomit and lose weight. Patient was given droperidol for nausea and some pain control. I spoke with Dr. Wynne he agreed to admit the patient I consulted Dr. Batresania Undiagnosed new problem with uncertain prognosis? @ -No Drug Therapy requiring intensive monitoring for toxicity (Heparin, Nitro, Insul in, Cardizem)? @ -No Were any procedures done? @ -No Diagnosis/symptom? @ -Intractable vomiting Acute, or Chronic, or Acute on Chronic? @ -Acute Uncomplicated (without systemic symptoms) or Complicated (systemic symptoms)? @ -Complicated Side effects of treatment? @ -No Exacerbation, Progression, or Severe Exacerbation? @ -No Poses a threat to life or bodily function? How? (Chest pain, USA, VT, pneumonia, PE, COPD, DKA, ARF, appy, cholecystitis, CVA, Diverticulitis, Homicidal, Suicidal, threat to staff... and all critical care pts) @ -No (Jose Stuart) - Lab Data Lab Results 04/07/24 04/07/24 Range/Units 06:26 06:26 WBC 7.3 (3.8-10.6) k/uL RBC 4.24 (3.80-5.40) m/uL Hgb 11.9 (11.4-16.0) gm/dL Hct 36.6 (34.0-46.0) % MCV 86.3 (80.0-100.0) fL MCH 28.0 (25.0-35.0) pg MCHC 32.4 (31.0-37.0) g/dL RDW 14.1 (11.5-15.5) % Plt Count 385 (150-450) k/uL MPV 6.7 Neutrophils % 50 % Lymphocytes % 38 % Monocytes % 6 % Eosinophils % 3 % Basophils % 1 % Neutrophils # 3.6 (1.3-7.7) k/uL Lymphocytes # 2.8 (1.0-4.8) k/uL Monocytes # 0.5 (0-1.0) k/uL Eosinophils # 0.2 (0-0.7) k/uL Basophils # 0.0 (0-0.2) k/uL Sodium 139 (137-145) mmol/L Potassium 4.0 (3.5-5.1) mmol/L Chloride 103 (98-107) mmol/L Carbon Dioxide 29 (22-30) mmol/L Anion Gap 7 mmol/L BUN 15 (7-17) mg/dL Creatinine 0.74 (0.52-1.04) mg/dL Est GFR (CKD-EPI)AfAm >90 (>60 ml/min/1.73 sqM) Est GFR (CKD-EPI)NonAf >90 (>60 ml/min/1.73 sqM) Glucose 105 H (74-99) mg/dL Calcium 9.9 (8.4-10.2) mg/dL Total Bilirubin 0.5 (0.2-1.3) mg/dL AST 20 (14-36) U/L ALT 11 (4-34) U/L Alkaline Phosphatase 61 (38-126) U/L Total Protein 7.3 (6.3-8.2) g/dL Albumin 4.3 (3.5-5.0) g/dL Lipase 22 L (23-300) U/L Disposition <Jacob Garland - Last Filed: 04/07/24 07:10> Time of Disposition: 07:46 <Jose Stuart - Last Filed: 04/07/24 08:16> Clinical Impression: Intractable nausea and vomiting Disposition: ADMITTED IP TO THIS HOSP
[2024-04-07] MEDS: SODIUM CHLORIDE 0.9% 1,000 ML IV STA (06:23)
[2024-04-07] MEDS: diphenhydrAMINE 50 MG/ML 1 ML VIAL IVP STA (06:34)
[2024-04-07] MEDS: ONDANSETRON 4 MG/2 ML VIAL IVP STA (06:34)
[2024-04-07 06:40] LABS: Basophils % (A) 1 %; Eosinophils # (A) 0.2 k/uL (0-0.7); Eosinophils % (A) 3 %; HCT 36.6 % (34.0-46.0); HGB 11.9 gm/dL (11.4-16.0); Lymphocytes # (A) 2.8 k/uL (1.0-4.8); Lymphocytes % (A) 38 %; MCHC 32.4 g/dL (31.0-37.0); MCV 86.3 fL (80.0-100.0); Mean Platelet Volume 6.7; Monocytes # (A) 0.5 k/uL (0-1.0); Monocytes % (A) 6 %; Neutrophils # (A) 3.6 k/uL (1.3-7.7); Neutrophils % (A) 50 %; Platelet Count 385 k/uL (150-450); RBC 4.24 m/uL (3.80-5.40); RDW 14.1 % (11.5-15.5); WBC 7.3 k/uL (3.8-10.6)
[2024-04-07 06:54] LABS: ALT 11 U/L (4-34); AST 20 U/L (14-36); African American GFR (CKD) >90 (>60 ml/min/1.73 sqM); Albumin 4.3 g/dL (3.5-5.0); Alkaline Phosphatase 61 U/L (38-126); Anion Gap 7 mmol/L; Blood Urea Nitrogen 15 mg/dL (7-17); Calcium 9.9 mg/dL (8.4-10.2); Carbon Dioxide 29 mmol/L (22-30); Chloride 103 mmol/L (98-107); Glucose 105 mg/dL (74-99); Lipase 22 U/L (23-300); Non-African American GFR(CKD) >90 (>60 ml/min/1.73 sqM); Sodium 139 mmol/L (137-145); Total Bilirubin 0.5 mg/dL (0.2-1.3); Total Protein 7.3 g/dL (6.3-8.2)
--- NOTE | 2024-04-07 07:38 | CT ---
EXAMINATION TYPE: CT abdomen pelvis w con DATE OF EXAM: 04/07/2024 HISTORY: ABD PAIN with nausea and vomiting CT DLP: 1728.3mGycm Automated Exposure Control for Dose Reduction was Utilized. CONTRAST: CT scan of the abdomen and pelvis is performed with IV Contrast, patient injected with 100 mL of Isov ue 300. COMPARISON: Prior CT March 22, 2024 FINDINGS: LUNG BASES: Bilateral breast implants are partially imaged similar to prior. LIVER/GB: No significant abnormality is appreciated. PANCREAS: Moderate generalized atrophy redemonstrated. SPLEEN: No significant abnormality is seen. ADRENALS: No significant abnormality is seen. KIDNEYS: No significant abnormality is seen. BOWEL: There is persistent feeding catheter entering stomach and now terminating in the proximal jeju num. No abnormal small or large bowel dilatation. A few scattered colonic diverticula. No CT evidence for acute diverticulitis. Stable small sized hiatal hernia. UTERUS/ADNEXA: Uterus is surgically absent. No free fluid in the pelvis. LYMPH NODES: No greater than 1cm abdominal or pelvic lymph nodes are appreciated. OSSEOUS STRUCTURES: Mild multilevel disc space narrowing redemonstrated. OTHER: Stimulator device overlies the anterior right lower quadrant similar to prior causing streak a rtifact. IMPRESSION: No bowel obstruction. No significant acute finding is seen to account for patient's clini sandrita symptoms. [facility], , 04/07/2024 7:35 AM
[2024-04-07] MEDS: SODIUM CHLORIDE 0.9% 1,000 ML IV ONE (07:53)
[2024-04-07 08:16] LABS: Amphetamine Screen,Urine Not Detected (NotDetected); Barbiturate Screen,Urine Not Detected (NotDetected); Benzodiazepines Screen,Urine Detected (NotDetected); Cocaine Screen,Urine Not Detected (NotDetected); Methadone Screen, Urine Not Detected (NotDetected); Opiate Screen,Urine Detected (NotDetected); Oxycodone Screen, Urine Detected (NotDetected); Phencyclidine Screen,Urine Not Detected (NotDetected); Tricyclic Antidepressant,Urine Not Detected (NotDetected); Urn Cannabinoid Scrn Not Detected (NotDetected)
[2024-04-07] MEDS: droPERidol 5 MG/2 ML VIAL IVP ONE (08:18)
[2024-04-07] MEDS: IPRATROPIUM-ALBUTEROL 3 ML NEB INHALATION SCH (12:12)
[2024-04-07 12:21] LABS: Glucose,Whole Blood 84 mg/dL (70-110)
[2024-04-07] MEDS: GABAPENTIN 300 MG CAP PO SCH (16:33)
[2024-04-07] MEDS: ONDANSETRON 4 MG/2 ML VIAL IVP PRN (16:50)
[2024-04-07] MEDS: diphenhydrAMINE 50 MG/ML 1 ML VIAL IVP PRN (16:50)
[2024-04-07 17:15] LABS: Glucose,Whole Blood 94 mg/dL (70-110)
[2024-04-07] MEDS: LORazepam 2 MG/ML INJ IV PRN (18:08)
[2024-04-07] MEDS: ALPRAZolam 0.25 MG TAB PO SCH (20:46)
[2024-04-07] MEDS: PANTOPRAZOLE 40 MG/10 ML VIAL IVP SCH (20:46)
[2024-04-07 21:22] LABS: Glucose,Whole Blood 97 mg/dL (70-110)
--- NOTE | 2024-04-08 05:00 | HP ---
HISTORY AND PHYSICAL HISTORY OF PRESENT ILLNESS: This is a 53-year-old white female with severe gastroparesis. She has lost 18 pounds over 1 week period of time due to progressive nausea and vomiting from gastroparesis. She is admitted for surgical consult, possibly PEG tube replacement and possibly starting nutrition through the IV. OBJECTIVE: CARDIOVASCULAR: S1, S2. LUNGS: Transmitted upper airway sounds. GI: Soft. EXTREMITIES: No cyanosis, clubbing, edema. NEUROLOGIC: Cranial nerves intact. REVIEW OF SYSTEMS: 14-point review of systems otherwise negative. HOME MEDICINES: 1. Cymbalta 60 daily. 2. Synthroid 112 daily. 3. Requip 2 mg t.i.d. 4. Baclofen 10 t.i.d. 5. Zofran 8 mg daily. 6. Protonix 40 mg b.i.d. 7. Robaxin 500 t.i.d. 8. Inflectra IV q.42 hours. 9. Xanax 0.25 b.i.d. 10. nebulized solution daily. PAST MEDICAL HISTORY: Gastroparesis, asthma, diabetes mellitus, GERD, musculoskeletal disorder, neurologic disorder, sleep apnea, thyroid disorder, history of migraines, C difficile. Cultures were drawn. PHYSICAL EXAMINATION: VITAL SIGNS: Reviewed. NEUROLOGIC: Alert and oriented x3. INTEGUMENT: Dry skin turgor. Dry mucous membranes. PSYCHIATRIC: She is sleepy and lethargic. Speech is normal. Giving appropriate answers. MUSCULOSKELETAL: Range of motion full x4. SKIN: Dry skin turgor. LUNGS: Transmitted upper airway sounds. CARDIOVASCULAR: S1 and S2. Labs reviewed. Blood pressure 150s over 100s. EKG sinus rhythm, no ischemia. White count 7.3, hemoglobin is 11.9. ASSESSMENT AND PLAN: Recurrent abdominal pain, gastroparesis, dehydration, acute weight loss 12 to 18 pounds in 1 week. Surgical consult for abdominal pain. Dietary consulted for tube feedings. Prognosis guarded. MMODL / IJN: [id number] /
[2024-04-08 06:02] LABS: Glucose,Whole Blood 101 mg/dL (70-110)
[2024-04-08] MEDS: LEVOTHYROXINE 112 MCG TAB PO SCH (06:32)
[2024-04-08] MEDS: LOPERAMIDE 2 MG CAP PO PRN (06:32)
[2024-04-08 08:45] LABS: BUN/Creat Ratio 13.86 Ratio (12.00-20.00); Blood Urea Nitrogen 9.7 mg/dL (9.0-27.0); Chloride 109 mmol/L (96-109); Glucose 118 mg/dL (70-110); Potassium 3.8 mmol/L (3.5-5.5); Sodium 143 mmol/L (135-145)
[2024-04-08 08:46] LABS: ALT 8 U/L (8-44); AST 16 U/L (13-35); Albumin 3.7 g/dL (3.8-4.9); Albumin/Globulin Ratio 1.68 Ratio (1.60-3.17); Alkaline Phosphatase 54 U/L (41-126); Calcium 8.5 mg/dL (8.7-10.3); Carbon Dioxide 26.3 mmol/L (21.6-31.8); Globulin 2.2 g/dL (1.6-3.3); Total Bilirubin 0.2 mg/dL (0.3-1.2); Total Protein 5.9 g/dL (6.2-8.2)
[2024-04-08 09:21] LABS: Basophils # (A) 0.06 X 10*3/uL (0.00-0.10); Basophils % (A) 1.2 %; HCT 32.5 % (37.2-46.3); HGB 10.3 g/dL (12.0-15.0); Lymphocytes # (A) 2.55 X 10*3/uL (0.90-5.00); Lymphocytes % (A) 50.7 %; MCH 27.6 pg (27.0-32.0); MCHC 31.7 g/dL (32.0-37.0); MCV 87.1 FL (80.0-97.0); Mean Platelet Volume 9.7 FL (9.5-12.2); Monocytes # (A) 0.44 X 10*3/uL (0.20-1.00); Monocytes % (A) 8.7 %; NRBC Per 100 WBC 0 X 10*3/uL (0.00-0.01); Neutrophils # (A) 1.67 X 10*3/uL (1.80-7.70); Neutrophils % (A) 33.2 %; Platelet Count 353 X 10*3/uL (140-440); RBC 3.73 X 10*6/uL (4.10-5.20); RDW 13.7 % (11.5-14.5); WBC 5.03 X 10*3/uL (4.50-10.00)
[2024-04-08] MEDS: DULoxetine HCL 60 MG CAPSULE.DR PO SCH (10:08)
[2024-04-08 12:04] LABS: Glucose,Whole Blood 94 mg/dL (70-110)
[2024-04-08 14:19] VITALS: BMI 32.5
--- NOTE | 2024-04-08 15:46 | P.GSCN ---
History of Present Illness Consult date: 04/08/24 History of present illness: CHIEF COMPLAINT: Nausea and vomiting HISTORY OF PRESENT ILLNESS: This is a 53-year-old female with a known history of multiple sclerosis, gastroparesis and sarcoidosis. Patient does have issues with recurrent nausea and vomiting. She did have a J-tube placed for nutrition. Unfortunately patient has not been able to use the tube feeds due to insurance reasons. She reports though when she did use it she still had nausea and vomiting. Patient has been able to tolerate the clear liquids today. Last episode of vomiting was yesterday. She had reported diarrhea as well this appears to have improved. She had a recent Port-A-Cath placed on April [address] Denney. Patient reports that she had bruising at that site and the t ape had been causing her to itch. The Port-A-Cath is functioning appropriately. Surgical service has been consulted in regards to patient's nausea and vomiting. Patient had a CT scan abdomen pelvis which was negative. Her last EGD was in April 2022 had reported gastritis, small hiatal hernia esophagitis and gastroparesis. Colonoscopy was normal at that time. PAST MEDICAL HISTORY: See list. PAST SURGICAL HISTORY: See list. MEDICATIONS: See list. ALLERGIES: See list. SOCIAL HISTORY: No illicit drug use. REVIEW OF SYSTEMS: CONSTITUTIONAL: Denies fever or chills. HEENT: Denies blurred vision, vision changes, or eye pain. Denies hemoptysis ENDOCRINE: Denies heat or cold intolerance. CARDIOVASCULAR: Denies chest pain or pressure. RESPIRATORY: No shortness of breath. GASTROINTESTINAL: Please refer to HPI otherwise unremarkable NEURO: Denies history of seizures. PSYCH: No depression or suicidal ideation HEMATOLOGIC: Denies bleeding disorders. LYMPHATIC: The patient denies any lumps and bumps around the neck. GENITOURINARY: Denies any blood in urine or increased urinary frequency. MUSCULOSKELETAL: Denies myalgias. Denies joint swelling. Denies decreased range of motion beyond patients baseline. SKIN: Denies pruitis. Denies rash. PHYSICAL EXAM: VITAL SIGNS: Reviewed GENERAL: Well-developed in no acute distress. HEENT: No sclera icterus. Extraocular movements grossly intact. Moist buccal mucosa. Head is atraumatic, normocephalic. Hears conversational speech. No nasal drainage. NECK: Supple without lymphadenopathy. CHEST: Non-labored respirations and equal bilateral excursions. CARDIOVASCULAR: Palpable 2+ radial pulses. ABDOMEN: Soft. Nondistended. Nontender. J-tube site clean dry and intact MUSCULOSKELETAL: No clubbing or cyanosis. NEUROLOGIC: No focal or lateralizing signs. Cranial nerves II through XII grossly intact. PSYCH: Appropriate affect. Alert and oriented to person, place and time. SKIN: Patient has reports left chest wall. Patient does have minimal bruising at port site. There is some yellowish bruising lower on the chest wall below the port. Port is functioning. LABORATORY DATA: WBC 5.03 Hgb 10.3 platelets 353 Sodium 143 potassium 3.8 creatinine 0.7 Drug screen positive for opiates, oxycodone, benzodiazepine IMAGING: CT scan abdomen pelvis reports no bowel obstruction. No significant acute finding is seen to account for patient's clinical symptoms ASSESSMENT: 1. Intractable nausea and vomiting likely related to patient's gastroparesis 2. Recent Port-A-Cath placement. Port is functioning appropriately 3. Moderate protein calorie malnutrition PLAN: -No surgical intervention planned -Continue clear liquid diet -Add Ensure for protein supplement -Continue antiemetics as needed -Check magnesium level Physician Fan Installer note has been reviewed by physician. Signing provider agrees with the documented findings, assessment, and plan of care. As above. Please see additional documentation below. CHIEF COMPLAINT: Intractable nausea and vomiting. HISTORY OF PRESENT ILLNESS: The patient is a 53-year-old female presents with intractable nausea and vomiting with pre-existing gastroparesis. Patient has had multiple surgical procedures including gastric POEM procedure, pain stimulator along the lower abdomen, hernia repairs. She had a recent Mediport placement. STUDIES: CT of the abdomen pelvis independently reviewed demonstrates small diaphragmatic midline hiatal hernia. Gastrostomy tube in appropriate location including distention of the jejunojejunal jejunostomy tube. No free air or internal hernia identified. No inflammatory changes or colitis identified. Presence of bilateral breast implants. Presence of gallbladder. Anterior abdominal wall pump of the right abdomen. This is my independent interpretation. ASSESSMENT: 1. Intractable nausea and vomiting with gastroparesis. 2. Recent Mediport placement. PLAN: 1. No acute surgical intervention at this time 2. May continue to use port. 3. Do recommend check of magnesium, thiamine levels as well as may contribute to intractable nausea and vomiting. Past Medical History Past Medical History: Asthma, Diabetes Mellitus, GERD/Reflux, Musculoskeletal Disorder, Neurologic Disorder, Sleep Apnea/CPAP/BIPAP, Thyroid Disorder Additional Past Medical History / Comment(s): MS, back pain, DDD, optic neuritis, Gastroparesis., C-Diff (June 2018) leukopenia (sores in mouth) migraines, sleep apnea due to M.S. (no machine), sarcoidosis, cyst in stomach. , hopitalized 10/04/19 after lumbar puncture because heart rate dropped, hospitalized 10/10/19 for headache (post l.p.), states allergy to all adhesive and needs benadryl IV 50mg prior to using tape or tegaderm etc. History of Any Multi-Drug Resistant Organisms: C-DIFF Year Discovered:: 2018 MDRO Source:: stool Past Surgical History: Bladder Surgery, Breast Surgery, Hernia Repair, Hyster ectomy, Orthopedic Surgery, Tubal Ligation Additional Past Surgical History / Comment(s): rhinoplasty, bladder suspension, breast sx, morphine pump, RT KNEE SCOPE, TUMMY TUCK, Spinal cord stimulator inserted and removed. port august 2019 but removed and new one placed on left side, gastroparesis botox and EGD 11/06/2019, breast implants, gastric surgery (g-poem) 05/05/20, Stent placed on kidney, hernia repair X2 Past Anesthesia/Blood Transfusion Reactions: Motion Sickness, Postoperative Nausea & Vomiting (PONV) Past Psychological History: No Psychological Hx Reported, Anxiety Additional Psychological History / Comment(s): . Smoking Status: Never smoker Past Alcohol Use History: Occasional Past Drug Use History: None Reported - Past Family History Father History Unknown: Yes Family Medical History: No Reported History Additional Family Medical History / Comment(s): . Mother History Unknown: Yes Family Medical History: No Reported History Additional Family Medical History / Comment(s): NO FAMILY HISTORY Brother(s) Additional Family Medical History / Comment(s): one brother in seep from CHF, and one of heroin overdose both at age of 27 Medications and Allergies Home Medications Medication Instructions Recorded Confirmed Type DULoxetine HCL [Cymbalta] 60 mg PO DAILY 01/10/17 04/07/24 History Levothyroxine Sodium [Synthroid] 112 mcg PO DAILY 12/05/18 04/07/24 History rOPINIRole HCL [Requip] 2 mg PO TID 12/05/18 04/07/24 History Baclofen 10 mg PO TID 04/29/19 04/07/24 History Ondansetron Odt [Zofran ODT] 8 mg PO DAILY PRN 11/13/19 04/07/24 History Pantoprazole Sodium [Protonix] 40 mg PO BID 05/10/20 04/07/24 History SUMAtriptan succinate 6 mg SQ BID PRN 05/10/20 04/07/24 History methocarbamoL [Robaxin] 500 mg PO TID 05/10/20 04/07/24 History Infliximab-Dyyb [Inflectra] 1 dose IV Q42D 05/23/20 04/07/24 History ALPRAZolam [Xanax] 0.25 mg PO BID 11/05/22 04/07/24 History Albuterol Inhaler [Ventolin Hfa 2 puff INHALATION RT-Q6H PRN 11/05/22 04/07/24 History Inhaler] Albuterol Nebulized [Ventolin 2.5 mg INHALATION RT-QID PRN 07/12/23 04/07/24 History Nebulized] Gabapentin 300 mg PO TID 03/22/24 04/07/24 History oxyCODONE-APAP 10-325MG [Percocet 1 tab PO BID PRN 7 Days #14 tab 03/25/2408/25 Rx 10-325 mg] Allergies Allergy/AdvReac Type Severity Reaction Status Date / Time adhesive Allergy Severe Rash/Hives Verified 04/07/24 12:09 adhesive tape Allergy Severe Rash/Hives Verified 04/07/24 12:09 fentanyl Allergy Severe Rash/Hives Verified 04/07/24 12:09 from patch only latex Allergy Severe Rash/Hives Verified 04/07/24 12:09 metoclopramide [From Reglan] Allergy dystonia Verified 04/07/24 12:09 from IV Reglan micafungin Allergy Diarrhea Verified 04/07/24 12:09 prochlorperazine Allergy dystonia Verified 04/07/24 12:09 [From Compazine] Surgical - Exam Vital Signs Temp Pulse Resp BP Pulse Ox 97.8 F 94 18 153/101 99 04/07/24 03:55 04/07/24 03:55 04/07/24 03:55 04/07/24 03:55 04/07/24 03:55 Results - Labs 04/08/24 05:29 04/08/24 05:29 Abnormal Lab Results - Last 24 Hours (Table) 04/08/24 04/08/24 Range/Units 05:29 05:29 RBC 3.73 L (4.10-5.20) X 10*6/uL Hgb 10.3 L (12.0-15.0) g/dL Hct 32.5 L (37.2-46.3) % MCHC 31.7 L (32.0-37.0) g/dL Neutrophils # 1.67 L (1.80-7.70) X 10*3/uL Glucose 118 H (70-110) mg/dL Calcium 8.5 L (8.7-10.3) mg/dL Total Bilirubin 0.2 L (0.3-1.2) mg/dL Total Protein 5.9 L (6.2-8.2) g/dL Albumin 3.7 L (3.8-4.9) g/dL Diabetes panel 04/08/24 Range/Units 05:29 Sodium 143 (135-145) mmol/L Potassium 3.8 (3.5-5.5) mmol/L Chloride 109 (96-109) mmol/L Carbon Dioxide 26.3 (21.6-31.8) mmol/L BUN 9.7 (9.0-27.0) mg/dL Creatinine 0.7 (0.6-1.5) mg/dL Glucose 118 H (70-110) mg/dL Calcium 8.5 L (8.7-10.3) mg/dL AST 16 (13-35) U/L ALT 8 (8-44) U/L Alkaline Phosphatase 54 (41-126) U/L Total Protein 5.9 L (6.2-8.2) g/dL Albumin 3.7 L (3.8-4.9) g/dL Calcium panel 04/08/24 Range/Units 05:29 Calcium 8.5 L (8.7-10.3) mg/dL Albumin 3.7 L (3.8-4.9) g/dL Pituitary panel 04/08/24 Range/Units 05:29 Sodium 143 (135-145) mmol/L Potassium 3.8 (3.5-5.5) mmol/L Chloride 109 (96-109) mmol/L Carbon Dioxide 26.3 (21.6-31.8) mmol/L BUN 9.7 (9.0-27.0) mg/dL Creatinine 0.7 (0.6-1.5) mg/dL Glucose 118 H (70-110) mg/dL Calcium 8.5 L (8.7-10.3) mg/dL Adrenal panel 04/08/24 Range/Units 05:29 Sodium 143 (135-145) mmol/L Potassium 3.8 (3.5-5.5) mmol/L Chloride 109 (96-109) mmol/L Carbon Dioxide 26.3 (21.6-31.8) mmol/L BUN 9.7 (9.0-27.0) mg/dL Creatinine 0.7 (0.6-1.5) mg/dL Glucose 118 H (70-110) mg/dL Calcium 8.5 L (8.7-10.3) mg/dL Total Bilirubin 0.2 L (0.3-1.2) mg/dL AST 16 (13-35) U/L ALT 8 (8-44) U/L Alkaline Phosphatase 54 (41-126) U/L Total Protein 5.9 L (6.2-8.2) g/dL Albumin 3.7 L (3.8-4.9) g/dL
[2024-04-08] MEDS: HYDROmorphone 0.5 MG/0.5 ML SYRINGE IVP PRN (20:34)
--- NOTE | 2024-04-09 01:32 | PN ---
PROGRESS NOTE She has retractable nausea and vomiting. Wants to see Dr. Licea tomorrow for her abdominal pain, gastroparesis, and possible PEG tube removal. Also GI doctor to see what her options are for the severe gastroparesis, what we can do to get her better. Consult tomorrow. OBJECTIVE: VITAL SIGNS: Temp 98.4, blood pressure 119/70, O2 of 98% on room air, pulse 68, respiratory rate 16 to 18. CARDIOVASCULAR: S1, S2. LUNGS: Transmitted upper sounds. GI: Soft. HEMATOLOGY: Negative Homans. PSYCH: Fair mood and affect. Hemoglobin is 10.3, white count is 5.03, sodium 143, potassium 3.8. Sugars are low to mid 100s, albumin 3.7. Prognosis guarded. Ambulate as tolerated. Get GI and surgical consult. Prognosis guarded depending on pending words from GI and Surgery. MMODL / IJN: [id number] /
[2024-04-09] MEDS: MAGNESIUM SULFATE-D5W PMX 1 GM in DEXTROSE/WATER 1 100ML.BAG IVPB SCH (09:14)
--- NOTE | 2024-04-09 12:11 | P.CONS ---
History of Present Illness - Reason for Consult Consult date: 04/09/24 Gastroparesis Requesting physician: Sean Wynne - Chief Complaint Nausea and vomiting - History of Present Illness This is a pleasant 53-year-old female with a known history of diabetic gastroparesis diagnosed approximately 2014 who follows with [facility] who has had previous Botox injections, J-tube placement for nutrition and most recently port placement. She has also past medical history of diabetes mellitus, multiple sclerosis and sarcoidosis. She presented to the hospital for intractable nausea and vomiting and states that she lost 18 pounds over last few days duration. She was just recently here and had Port-A-Cath placement done on 04/02/2024. Apparently patient states she went home and noticed that there was some glue on her chest from port and states that she is allergic to it and she started having nausea and vomiting and ended up back in the hospital. She is unable to use her J-tube secondary to insurance will not cover her feedings. Patient states she can only eat if she has IV medications. She was admitted for IV hydration and antiemetics. She has multiple allergies and is not able to take Reglan, Phenergan or scopolamine patch. She states that IV Zofran works best for her. She states that she has chronic pain secondary to degenerative disc disease as well as her other comorbidities. She denies any hematemesis or coffee-ground emesis. Patient has pain pump. States Dilaudid is not helping her pain. General surgery increased her Benadryl from 25 mg to 50 mg per request of patient. Review of Systems REVIEW OF SYSTEMS: CARDIOPULMONARY: No chest pain or shortness of breath. Gastrointestinal: Abdominal pain. Nausea and vomiting. No hematemesis, coffee-ground emesis. No rectal bleeding, or melena. GENITOURINARY: No dysuria or hematuria. MUSCULOSKELETAL: Reports normal range of motion., Joint pain. Back pain. Patient reports allover pain. SKIN: No rashes. No jaundice. ENDOCRINE: No chills, fevers. No excessive weight gain or loss. No polydipsia or polyuria. PSYCHIATRIC: Unremarkable. NEUROLOGY: No change in mental status. Denies dizziness, headache. ENT: Vision unremarkable. CONSTITUTIONAL: No recent weight loss. No fever, chills, night sweats. Past Medical History Past Medical History: Asthma, Diabetes Mellitus, GERD/Reflux, Musculoskeletal Disorder, Neurologic Disorder, Sleep Apnea/CPAP/BIPAP, Thyroid Disorder Additional Past Medical History / Comment(s): MS, back pain, DDD, optic neuri tis, Gastroparesis., C-Diff (June 2018) leukopenia (sores in mouth) migraines, sleep apnea due to M.S. (no machine), sarcoidosis, cyst in stomach. , hopitalized 10/04/19 after lumbar puncture because heart rate dropped, hospitalized 10/10/19 for headache (post l.p.), states allergy to all adhesive and needs benadryl IV 50mg prior to using tape or tegaderm etc. History of Any Multi-Drug Resistant Organisms: C-DIFF Year Discovered:: 2018 MDRO Source:: stool Past Surgical History: Bladder Surgery, Breast Surgery, Hernia Repair, Hysterectomy, Orthopedic Surgery, Tubal Ligation Additional Past Surgical History / Comment(s): rhinoplasty, bladder suspension, breast sx, morphine pump, RT KNEE SCOPE, TUMMY TUCK, Spinal cord stimulator inserted and removed. port august 2019 but removed and new one placed on left side, gastroparesis botox and EGD 11/06/2019, breast implants, gastric surgery (g-poem) 05/05/20, Stent placed on kidney, hernia repair X2 Past Anesthesia/Blood Transfusion Reactions: Motion Sickness, Postoperative Nausea & Vomiting (PONV) Past Psychological History: No Psychological Hx Reported, Anxiety Additional Psychological History / Comment(s): . Smoking Status: Never smoker Past Alcohol Use History: Occasional Past Drug Use History: None Reported - Past Family History Father History Unknown: Yes Family Medical History: No Reported History Additional Family Medical History / Comment(s): . Mother History Unknown: Yes Family Medical History: No Reported History Additional Family Medical History / Comment(s): NO FAMILY HISTORY Brother(s) Additional Family Medical History / Comment(s): one brother in seep from CHF, and one of heroin overdose both at age of 27 Medications and Allergies Home Medications Medication Instructions Recorded Confirmed Type DULoxetine HCL [Cymbalta] 60 mg PO DAILY 01/10/17 04/07/24 History Levothyroxine Sodium [Synthroid] 112 mcg PO DAILY 12/05/18 04/07/24 History rOPINIRole HCL [Requip] 2 mg PO TID 12/05/18 04/07/24 History Baclofen 10 mg PO TID 04/29/19 04/07/24 History Ondansetron Odt [Zofran ODT] 8 mg PO DAILY PRN 11/13/19 04/07/24 History Pantoprazole Sodium [Protonix] 40 mg PO BID 05/10/20 04/07/24 History SUMAtriptan succinate 6 mg SQ BID PRN 05/10/20 04/07/24 History methocarbamoL [Robaxin] 500 mg PO TID 05/10/20 04/07/24 History Infliximab-Dyyb [Inflectra] 1 dose IV Q42D 05/23/20 04/07/24 History ALPRAZolam [Xanax] 0.25 mg PO BID 11/05/22 04/07/24 History Albuterol Inhaler [Ventolin Hfa 2 puff INHALATION RT-Q6H PRN 11/05/22 04/07/24 History Inhaler] Albuterol Nebulized [Ventolin 2.5 mg INHALATION RT-QID PRN 07/12/23 04/07/24 History Nebulized] Gabapentin 300 mg PO TID 03/22/24 04/07/24 History oxyCODONE-APAP 10-325MG [Percocet 1 tab PO BID PRN 7 Days #14 tab 03/25/24 04/07/24 Rx 10-325 mg] Allergies Allergy/AdvReac Type Severity Reaction Status Date / Time adhesive Allergy Severe Rash/Hives Verified 04/07/24 12:09 adhesive tape Allergy Severe Rash/Hives Verified 04/07/24 12:09 fentanyl Allergy Severe Rash/Hives Verified 04/07/24 12:09 from patch only latex Allergy Severe Rash/Hives Verified 04/07/24 12:09 metoclopramide [From Reglan] Allergy dystonia Verified 04/07/24 12:09 from IV Reglan micafungin Allergy Diarrhea Verified 04/07/24 12:09 prochlorperazine Allergy dystonia Verified 04/07/24 12:09 [From Compazine] Physical Exam Vitals: Vital Signs Temp Pulse Resp BP Pulse Ox 04/09/24 07:10 98.7 F 77 17 150/85 99 04/09/24 02:38 98.9 F 65 18 117/74 98 04/08/24 20:04 98.4 F 68 18 119/70 98 04/08/24 15:00 98.8 F 72 16 130/77 96 Intake and Output 04/08/24 04/09/24 04/09/24 22:59 06:59 14:59 Other: # Voids 1 2 General appearance: The patient is alert, oriented, appears in no acute distress. Obese HET: Head is normocephalic and atraumatic. Conjunctiva pink. Sclera anicteric. Neck: Supple without lymphadenopathy. Trachea midline. Left chest port without any surrounding erythema or swelling. Heart: Regular. Lungs: Equal expansion, normal respiratory effort. Abdomen: Soft, nontender, nondistended. Skin: No rashes. No jaundice. Extremities: Normal skin color and turgor. No pedal edema. Neurological: No focal deficits. Alert and oriented x3. Results CBC & Chem 7: 04/08/24 05:29 04/08/24 05:29 Comments: CT abdomen pelvis reports no bowel obstruction. No significant acute findings seen to account for patient's clinical symptoms. Assessment and Plan (1) Gastroparesis Narrative/Plan: 53-year-old female with about a 10-year history of gastroparesis who follows with [facility] with chronic nausea and vomiting recently had J-tube placement however insurance will not cover enteral tube feedings. She returned back to the hospital and recently had a Port-A-Cath placement on 04/02/2024 and patient states that she had a reaction to the adhesive used and was having pain and nausea and vomiting so came back to the hospital. Reported upper endoscopy done in December 2023 at [facility] with dilation and states she has had some issues since then. Multiple medication allergies to antiemetics and adhesives therefore limited on antiemetics. Will increase Zofran to every 6 hours [id number]. Continue Protonix 40 mg twice daily. Pain management per primary medical team. No further indication for any gastroenterology intervention. Recommend outpatient follow-up with her [facility] gastroparesis specialist. Current Visit: No Status: Acute Code(s): K31.84 - GASTROPARESIS SNOMED Code(s): 566635857 (2) Chronic pain Current Visit: No Status: Acute Code(s): G89.29 - OTHER CHRONIC PAIN SNOMED Code(s): 75061664 (3) Diabetes Current Visit: No Status: Acute Code(s): E11.9 - TYPE 2 DIABETES MELLITUS WITHOUT COMPLICATIONS SNOMED Code(s): 20891833 (4) Nausea & vomiting Current Visit: No Status: Acute Code(s): R11.2 - NAUSEA WITH VOMITING, UNSPECIFIED SNOMED Code(s): 51691789 Plan: 1. Continue symptomatic and supportive care 2. Diet as tolerated. Recommend small frequent meals. 3. Change Zofran to every 6 hours [id number] 4. Continue Protonix 40 mg twice daily 5. Pain medication per primary medical team 6. No plans on endoscopic evaluation or further workup from gastroenterology. Recommend outpatient follow-up with her [facility] gastroparesis specialist. 7. Rest of medical management per primary medical team Thank you for this consultation, we will continue to follow. Dr. Haley Gage I agree with the dictator's note, documented as a scribe by Brooke Martínez.
[2024-04-09] MEDS: ONDANSETRON 4 MG/2 ML VIAL IVP SCH (13:17)
[2024-04-09] MEDS: diphenhydrAMINE 50 MG/ML 1 ML VIAL IVP PRN (13:17)
[2024-04-10 12:02] LABS: Glucose,Whole Blood 102 mg/dL (70-110)
--- NOTE | 2024-04-10 13:28 | P.PN ---
Subjective Progress Note Date: 04/09/24 CHIEF COMPLAINT: Gastroparesis HISTORY OF PRESENT ILLNESS: The patient is a 53-year-old female with pre- existing history of longstanding gastroparesis. She had recent Mediport placement 1 week ago additionally feeding tube was placed almost a month ago. Patient is being seen by gastroenterology team. She is complaining of Mediport site and glue. She is currently getting infusions. ROS: No fevers or chills. No new chest pain. No productive sputum PHYSICAL EXAM: VITAL SIGNS: Reviewed CONSTITUTIONAL: Well developed and in no acute distress. EYES: Conjuctivae without sclera icterus. Extraocular movements grossly intact. HEAD, EARS, NOSE, THROAT: Moist buccal mucosa. Head is atraumatic, normocephalic. Hears conversational speech. No nasal drainage. RESPIRATORY: Non-labored respirations and equal bilateral excursions. CARDIOVASCULAR: Palpable 2+ radial pulses. ABDOMEN: No peritonitis. MUSCULOSKELETAL: No gross deformity of the lower extremities noted. No clubbing. No cyanosis. SKIN: Good skin turgor. Well perfused. No infection at Mediport site. NEUROLOGIC: Cranial nerves II through XII grossly intact. No focal or lateralizing signs. PSYCH: Appropriate affect. Alert and oriented to person, place and time. CLINICAL LABS: Reviewed. Magnesium 1.7. WBC normal. ASSESSMENT: 1. Gastroparesis 2. Mediport complication PLAN: 1. Patient has gastroparesis and nausea can be exacerbated by medications as well as hypomagnesia. Magnesium level is low. Do recommend magnesium supplementation for goal magnesium 2.0 2. There is no infection of her Mediport site and may benefit from removal of current dressing with removal of glue. 3. Recommend placing new dressing after discontinuing her old 1 4. No acute surgical intervention 5. General surgery will sign off. Objective - Vital Signs Vital signs: Vital Signs Temp 99.1 F 04/10/24 07:25 Pulse 80 04/10/24 07:25 Resp 16 04/10/24 07:25 BP 165/90 04/10/24 07:25 Pulse Ox 98 04/10/24 07:25 FiO2 Intake & Output 04/09/24 04/10/24 04/10/24 18:59 06:59 18:59 Other: # Voids 1 3 - Labs CBC & Chem 7: 04/08/24 05:29 04/08/24 05:29
[2024-04-10 14:03] VITALS: BP 139/68; PULSE 74; RESP 15; TEMP 98.7
--- NOTE | 2024-04-10 14:59 | P.PN ---
Subjective Progress Note Date: 04/10/24 Principal diagnosis: Gastroparesis This is a pleasant 53-year-old female with a known history of diabetic gastroparesis diagnosed approximately 2015 who follows with [facility] who has had previous Botox injections, J-tube placement for nutrition and most recently port placement. She has also past medical history of diabetes mellitus, multiple sclerosis and sarcoidosis. She presented to the hospital for intractable nausea and vomiting and states that she lost 18 pounds over last few days duration. She was just recently here and had Port-A-Cath placement done on 04/02/2024. Apparently patient states she went home and noticed that there was some glue on her chest from port and states that she is allergic to it and she started having nausea and vomiting and ended up back in the hospital. She is unable to use her J-tube secondary to insurance will not cover her feedings. Patient states she can only eat if she has IV medications. She was admitted for IV hydration and antiemetics. She has multiple allergies and is not able to take Reglan, Phenergan or scopolamine patch. She states that IV Zofran works best for her. She states that she has chronic pain secondary to degenerative disc disease as well as her other comorbidities. She denies any hematemesis or coffee-ground emesis. Patient has pain pump. States Dilaudid is not helping her pain. General surgery increased her Benadryl from 25 mg to 50 mg per request of patient. 04/10/2024 Patient seen and examined today as a follow-up. States she is still having nausea but no vomiting. States she is not eating. She is not willing to advance her diet and is on a clear liquid diet according to nursing but has had multiple fast food wrappers at her bedside garbage. Patient states she is u nable to eat due to the nausea. Patient has chronic pain syndrome has pain pump present. She states that she is doing better with the IV Zofran [id number]. Currently has no IV fluids infusing. Apparently there was talks with patient's PCP Dr. Linton for possible transfer to [facility] where her sarcoid-itis specialist as well as her gastroparesis specialist is. Objective - Vital Signs Vital signs: Vital Signs Temp 99.1 F 04/10/24 07:25 Pulse 80 04/10/24 07:25 Resp 16 04/10/24 07:25 BP 165/90 04/10/24 07:25 Pulse Ox 98 04/10/24 07:25 FiO2 Intake & Output 04/09/24 04/10/24 04/10/24 18:59 06:59 18:59 Other: # Voids 1 3 - Exam General appearance: The patient is alert, oriented, appears in no acute distress. HET: Head is normocephalic and atraumatic. Conjunctiva pink. Sclera anicteric. Neck: Supple without lymphadenopathy. Left upper chest/subclavian port without any surrounding redness or swelling. Abdomen: Soft, nontender, nondistended. J-tube present. Extremities: Normal skin color and turgor. No pedal edema Skin: No rashes, no jaundice Neurological: No focal deficits. Alert and oriented. - Labs CBC & Chem 7: 04/08/24 05:29 04/08/24 05:29 Assessment and Plan (1) Gastroparesis Narrative/Plan: 53-year-old female with about a 10-year history of gastroparesis who follows with [facility] with chronic nausea and vomiting recently had J-tube placement however insurance will not cover enteral tube feedings. She returned back to the hospital and recently had a Port-A-Cath placement on 04/02/2024 and patient states that she had a reaction to the adhesive used and was having pain and nausea and vomiting so came back to the hospital. Reported upper endoscopy done in December 2023 at [facility] with dilation and states she has had some issues since then. Multiple medication allergies to antiemetics and adhesives therefore limited on antiemetics. Will increase Zofran to every 6 hours [id number]. Continue Protonix 40 mg twice daily. Pain management per primary medical team. No further indication for any gastroenterology intervention. Recommend tube feedings however patient is refusing. Continue with Ensure. Recommend advancing diet however patient is refusing. Recommend outpatient follow-up with her [facility] gastroparesis specialist. Current Visit: No Status: Acute Code(s): K31.84 - GASTROPARESIS SNOMED Code(s): 950008953 (2) Chronic pain Current Visit: No Status: Acute Code(s): G89.29 - OTHER CHRONIC PAIN SNOMED Code(s): 85755566 (3) Diabetes Current Visit: No Status: Acute Code(s): E11.9 - TYPE 2 DIABETES MELLITUS WITHOUT COMPLICATIONS SNOMED Code(s): 91055854 (4) Nausea & vomiting Narrative/Plan: Vomiting improved. Current Visit: No Status: Acute Code(s): R11.2 - NAUSEA WITH VOMITING, UNSPECIFIED SNOMED Code(s): 31020889 Plan: 1. Continue symptomatic and supportive care 2. Recommend starting tube feeds at slow rate. Patient is refusing any tube feeds. 3. Diet as tolerated. Recommend small frequent meals. 4. Continue Zofran to every 6 hours [id number] 5. Continue Protonix 40 mg twice daily 6. Pain medication per primary medical team 7. No plans on endoscopic evaluation or further workup from gastroenterology. Recommend outpatient follow-up with her [facility] gastroparesis specialist. Again did discuss starting tube feedings at slow rate for parental nutrition. Patient is refusing. Patient is requesting IV Zofran as an outpatient that will need to be managed and cleared by her insurance and done through her primary medical provider. Recommend follow-up with her gastroparesis specialist or to go to [facility] for further management of gastroparesis. Thank you for this consultation, we will sign off at this time. Dr. Haley Gage I agree with the dictator's note, documented as a scribe by Brooke Martínez.
[2024-04-10] MEDS: SODIUM CHLORIDE 0.9% 1,000 ML IV SCH (16:28)
--- NOTE | 2024-04-10 23:51 | PN ---
PROGRESS NOTE DATE OF SERVICE: 04/10/2024 Peyton Mcneil is a 53-year-old white female with nausea and vomiting. I saw her in the hospital to consult on her. She was recommended Protonix 40 b.i.d., Zofran every 6 around the clock, and following up with Dr. Buddy Jewell, which will probably have to do that. Prognosis guarded. Ambulate as tolerated. MMODL / IJN: [id number] /
== END 2024-04-10 16:32 | disposition home or self-care (01) | DRG 74 ==
LOC: EC 03:52 → SUPCPDRO 03:52 → 6NMEDSUR 07:47 → OBSVTOIN 04-09 16:27
PROVIDERS: ADMIT Family Medicine; ATTEND Family Medicine
DX: E11.43 Type 2 diabetes mellitus with diabetic autonomic (poly)neuropathy (principal); E44.0 Moderate protein-calorie malnutrition; Z93.4 Other artificial openings of gastrointestinal tract status; G35 Multiple sclerosis; Z68.32 Body mass index [BMI] 32.0-32.9, adult; K31.84 Gastroparesis; D86.9 Sarcoidosis, unspecified; G89.4 Chronic pain syndrome; E83.42 Hypomagnesemia; E86.0 Dehydration; K44.9 Diaphragmatic hernia without obstruction or gangrene; Z96.89 Presence of other specified functional implants; Z98.82 Breast implant status; Z79.890 Hormone replacement therapy; Z79.899 Other long term (current) drug therapy
CPT/HCPCS: 36415; 74177; 80053; 80306; 82533; 83690; 83735; 84425; 85025; 93005; 96361; 96374; 96375; 99285

== ENCOUNTER 2024-04-15 13:01 | Emergency (ER) | payer MEDICARE, OTHER ==
--- NOTE | 2024-04-15 13:38 | ED ---
General Adult HPI - General Source: patient, RN notes reviewed Mode of arrival: ambulatory Limitations: no limitations <Jae Villegas - Last Filed: 04/15/24 13:36> <Jose Stuart - Last Filed: 04/15/24 15:10> - General Stated complaint: feeding tube issue,nausea Time Seen by Provider: 04/15/24 13:20 - History of Present Illness Initial comments: Quick note 53-year-old female presents emergency department chief complaint of nausea, feeding tube issue. She states that is not functioning they are unable to use it. Patient states that she believes there is mold growing in it and she was advised by her surgeon Dr. Oates to come to emergency department for evaluation and possible removal. She states that does not have a open wound on the end of it. She states that there is a hard plastic piece. Patient states that she also had a recent port placement. (Jae Villegas) This is a 53-year-old female who comes to the emergency department wanting her feeding tube removed. Patient states she was told by Dr. Denney to come to the emergency department because there was mold in her tube and she needed re placed. Patient states she was also told that it needed to be surgically removed. Patient denies any fever chills. Patient states she has gastroparesis and the tube does not help and she just does not have the tube out permanently. (Jose Stuart) - Related Data Home Medications Medication Instructions Recorded Confirmed DULoxetine HCL [Cymbalta] 60 mg PO DAILY 01/10/17 04/07/24 Levothyroxine Sodium [Synthroid] 112 mcg PO DAILY 12/05/18 04/07/24 rOPINIRole HCL [Requip] 2 mg PO TID 12/05/18 04/07/24 Baclofen 10 mg PO TID 04/29/19 04/07/24 Ondansetron Odt [Zofran ODT] 8 mg PO DAILY PRN 11/13/19 04/07/24 Pantoprazole Sodium [Protonix] 40 mg PO BID 05/10/20 04/07/24 SUMAtriptan succinate 6 mg SQ BID PRN 05/10/20 04/07/24 methocarbamoL [Robaxin] 500 mg PO TID 05/10/20 04/07/24 Infliximab-Dyyb [Inflectra] 1 dose IV Q42D 05/23/20 04/07/24 ALPRAZolam [Xanax] 0.25 mg PO BID 11/05/22 04/07/24 Albuterol Inhaler [Ventolin Hfa 2 puff INHALATION RT-Q6H PRN 11/05/22 04/07/24 Inhaler] Albuterol Nebulized [Ventolin 2.5 mg INHALATION RT-QID PRN 07/12/23 04/07/24 Nebulized] Gabapentin 300 mg PO TID 03/22/24 04/07/24 Previous Rx's Medication Instructions Recorded oxyCODONE-APAP 10-325MG [Percocet 1 tab PO BID PRN 7 Days #14 tab 03/25/24 10-325 mg] Ipratropium-Albuterol Nebulize 3 ml INHALATION RT-QID each 04/10/24 [Duoneb 0.5 mg-3 mg/3 ml Soln] Allergies Allergy/AdvReac Type Severity Reaction Status Date / Time adhesive Allergy Severe Rash/Hives Verified 04/15/24 13:45 adhesive tape Allergy Severe Rash/Hives Verified 04/15/24 13:45 fentanyl Allergy Severe Rash/Hives Verified 04/15/24 13:45 from patch only latex Allergy Severe Rash/Hives Verified 04/15/24 13:45 metoclopramide [From Reglan] Allergy dystonia Verified 04/15/24 13:45 from IV Reglan micafungin Allergy Diarrhea Verified 04/15/24 13:45 prochlorperazine Allergy dystonia Verified 04/15/24 13:45 [From Compazine] Review of Systems ROS Other: All systems not noted in ROS Statement are negative. <Jae Villegas - Last Filed: 04/15/24 13:36> ROS Other: All systems not noted in ROS Statement are negative. <Jose Stuart - Last Filed: 04/15/24 15:10> ROS Statement: Those systems with pertinent positive or pertinent negative responses have been documented in the HPI. Past Medical History Past Medical History: Asthma, Diabetes Mellitus, GERD/Reflux, Musculoskeletal Disorder, Neurologic Disorder, Sleep Apnea/CPAP/BIPAP, Thyroid Disorder Additional Past Medical History / Comment(s): MS, back pain, DDD, optic neuritis, Gastroparesis., C-Diff (June 2018) leukopenia (sores in mouth) migraines, sleep apnea due to M.S. (no machine), sarcoidosis, cyst in stomach. , hopitalized 10/04/19 after lumbar puncture because heart rate dropped, hospitalized 10/10/19 for headache (post l.p.), states allergy to all adhesive and needs benadryl IV 50mg prior to using tape or tegaderm etc. History of Any Multi-Drug Resistant Organisms: C-DIFF Date of last positivie culture/infection: 2018 MDRO Source:: stool Past Surgical History: Bladder Surgery, Breast Surgery, Hernia Repair, Hysterectomy, Orthopedic Surgery, Tubal Ligation Additional Past Surgical History / Comment(s): rhinoplasty, bladder suspension, breast sx, morphine pump, RT KNEE SCOPE, TUMMY TUCK, Spinal cord stimulator inserted and removed. port august 2019 but removed and new one placed on left side, gastroparesis botox and EGD 11/06/2019, breast implants, gastric surgery (g-poem) 05/05/20, Stent placed on kidney, hernia repair X2 Past Anesthesia/Blood Transfusion Reactions: Motion Sickness, Postoperative Nausea & Vomiting (PONV) Past Psychological History: No Psychological Hx Reported, Anxiety Additional Psychological History / Comment(s): . Smoking Status: Never smoker Past Alcohol Use History: Occasional Past Drug Use History: None Reported - Past Family History Father History Unknown: Yes Family Medical History: No Reported History Additional Family Medical History / Comment(s): . Mother History Unknown: Yes Family Medical History: No Reported History Additional Family Medical History / Comment(s): NO FAMILY HISTORY Brother(s) Additional Family Medical History / Comment(s): one brother in seep from CHF, and one of heroin overdose both at age of 27 <Jae Villegas - Last Filed: 04/15/24 13:36> General Exam <Jae Villegas - Last Filed: 04/15/24 13:36> <Jose Stuart - Last Filed: 04/15/24 15:10> - General Exam Comments Initial Comments: Visual Physical Exam Vital signs reviewed General: Well-appearing, nontoxic, no acute distress. Head: Normocephalic, atraumatic Eyes: PERRLA, EOMI ENT: Airway patent Chest: Nonlabored breathing Skin: No visual rash, normal skin tone Neuro: Alert and oriented 3 Musculoskeletal: No gross abnormalities (Jae Villegas) GENERAL: Patient is well-developed and well-nourished. Patient is nontoxic and well- hydrated and is in no acute distress. ENT: Neck is soft and supple. No significant lymphadenopathy is noted. Oropharynx is clear. Moist mucous membranes. Neck has full range of motion without eliciting any pain. EYES: The sclera were anicteric and conjunctiva were pink and moist. Extraocular movements were intact and pupils were equal round and reactive to light. Eyelids were unremarkable. ABDOMINAL: Patient's feeding tube is securely in place there is no area that appears to be infected. SKIN: Skin is clear with no lesions or rashes and otherwise unremarkable. NEUROLOGIC: Patient is alert and oriented x3. Cranial nerves II through XII are grossly intact. Motor and sensory are also intact. Normal speech, volume and content. Symmetrical smile. MUSCULOSKELETAL: Normal extremities with adequate strength and full range of motion. LYMPHATICS: No significant lymphadenopathy is noted PSYCHIATRIC: Normal psychiatric evaluation. (Jose Stuart) Course Vital Signs 04/15/24 13:42 Temperature 98.4 F Pulse Rate 96 Respiratory 20 Rate Blood Pressure 148/80 O2 Sat by Pulse 99 Oximetry Medical Decision Making <Jae Villegas - Last Filed: 04/15/24 13:36> <Jose Stuart - Last Filed: 04/15/24 15:10> - Medical Decision Making I completed the quick note portion of this chart signed Jae Villegas PA-C (Jae Villegas) Was pt. sent in by a medical professional or institution ([facility], [facility], urgent care, hospital, or [facility]...) When possible be specific @ -No Did you speak to anyone other than the patient for history (EMS, parent, family, police, friend...)? What history was obtained from this source @ -No Did you review nursing and triage notes (agree or disagree)? Why? @ -I reviewed and agree with nursing and triage notes Were old charts reviewed (outside hosp., previous admission, EMS record, old EKG, old radiological studies, urgent care reports/EKG's, [facility] records)? Report findings @ -No old charts were reviewed Differential Diagnosis? @ -Feeding tube malfunction, feeding tube dislodged. Feeding tube infection this is not an all-inclusive list EKG interpreted by me (3pts min.). @ -As above X-rays interpreted by me (1pt min.). @ -None done CT interpreted by me (1pt min.). @ -None done U/S interpreted by me (1pt. min.). @ -None done What testing was considered but not performed or refused? (CT, X-rays, U/S, labs)? Why? @ -None What meds were considered but not given or refused? Why? @ -None Did you discuss the management of the patient with other professionals (professionals i.e. DrDione, PA, [facility] [facility], lab, RT, psych nurse, social work program coordinator, ironworker wire fence erector, teacher, physics technical officer, case finisher)? Give summary @ -I spoke with Dr. Denney and he stated that he had never told the patient to come to the emergency department might have been his office staff. He also stated that he did not tell anyone that that there was mold in her feeding tube. Dr. Abel did not want me to touch feeding tube he wanted to see the patient in the office tomorrow and she already has an appointment show she will follow- up in the office Was smoking cessation discussed for >3mins.? @ -No Was critical care preformed (if so, how long)? @ -No Were there social determinants of health that impacted care today? How? (Homelessness, low income, unemployed, alcoholism, drug addiction, transportation, low edu. Level, literacy, decrease access to med. care, assisted, rehab)? @ -No Was there de-escalation of care discussed even if they declined (Discuss DNR or withdrawal of care, Hospice)? DNR status @ -No What co-morbidities impacted this encounter? (DM, HTN, Smoking, COPD, CAD, Cancer, CVA, ARF, Chemo, Hep., AIDS, mental health diagnosis, sleep apnea, morbid obesity)? @ -None Was patient admitted / discharged? Hospital course, mention meds given and route, prescriptions, significant lab abnormalities, going to OR and other pertinent info. @ -Patient was in agreement to follow-up tomorrow Undiagnosed new problem with uncertain prognosis? @ -No Drug Therapy requiring intensive monitoring for toxicity (Heparin, Nitro, Insulin, Cardizem)? @ -No Were any procedures done? @ -No Diagnosis/symptom? @ -Feeding tube issue Acute, or Chronic, or Acute on Chronic? @ -Acute Uncomplicated (without systemic symptoms) or Complicated (systemic symptoms)? @ -Uncomplicated Side effects of treatment? @ -No Exacerbation, Progression, or Severe Exacerbation? @ -No Poses a threat to life or bodily function? How? (Chest pain, [place], [place], pneumonia, PE, COPD, DKA, ARF, appy, cholecystitis, CVA, Diverticulitis, Homicidal, Suicidal, threat to staff... and all critical care pts) @ -No (Jose Stuart) Disposition <Jae Villegas - Last Filed: 04/15/24 13:36> Is patient prescribed a controlled substance at d/c from ED?: No Time of Disposition: 15:10 <Jose Stuart - Last Filed: 04/15/24 15:10> Clinical Impression: Complication of feeding tube Disposition: HOME SELF-CARE Condition: Good Referrals: Sean Wynne MD [Primary Care Provider] - 1-2 days
[2024-04-15 13:45] VITALS: RESP 20
[2024-04-15 15:29] VITALS: BP 136/76; PULSE 90; TEMP 98
== END 2024-04-15 15:29 | disposition home or self-care (01) ==
LOC: EC 13:01
DX: Z46.59 Encounter for fitting and adjustment of other gastrointestinal appliance and device (principal); Z91.048 Other nonmedicinal substance allergy status; Z91.040 Latex allergy status; Z88.8 Allergy status to other drugs, medicaments and biological substances
CPT/HCPCS: 99283

== ENCOUNTER 2024-05-06 07:58 | Emergency (ER) | payer MEDICARE, OTHER ==
[2024-05-06 08:11] VITALS: TEMP 98.8
--- NOTE | 2024-05-06 08:49 | ED ---
Nausea/Vomiting/Diarrhea HPI - General Chief complaint: Nausea/Vomiting/Diarrhea Stated complaint: Abd pain,Vomiting Time Seen by Provider: 05/06/24 08:22 Source: patient, RN notes reviewed Mode of arrival: ambulatory Limitations: no limitations - History of Present Illness Initial comments: 53-year-old female presents emergency department complaining nausea vomiting. Patient states she had a recent sarcoidosis infusion ordered by her physician at [facility]. She states she missed several months and states that because that she now she is having intractable nausea vomiting states that she is coughing up phlegm. Patient denies any fevers or chills denies any sick contacts. Patient states that she has a port that they accessed for her on the left side. Patient denies any localized abdominal pain no chest pain no shortness of breath. - Related Data Home Medications Medication Instructions Recorded Confirmed DULoxetine HCL [Cymbalta] 60 mg PO DAILY 01/10/17 04/07/24 Levothyroxine Sodium [Synthroid] 112 mcg PO DAILY 12/05/18 04/07/24 rOPINIRole HCL [Requip] 2 mg PO TID 12/05/18 04/07/24 Baclofen 10 mg PO TID 04/29/19 04/07/24 Ondansetron Odt [Zofran ODT] 8 mg PO DAILY PRN 11/13/19 04/07/24 Pantoprazole Sodium [Protonix] 40 mg PO BID 05/10/20 04/07/24 SUMAtriptan succinate 6 mg SQ BID PRN 05/10/20 04/07/24 methocarbamoL [Robaxin] 500 mg PO TID 05/10/20 04/07/24 Infliximab-Dyyb [Inflectra] 1 dose IV Q42D 05/23/20 04/07/24 ALPRAZolam [Xanax] 0.25 mg PO BID 11/05/22 04/07/24 Albuterol Inhaler [Ventolin Hfa 2 puff INHALATION RT-Q6H PRN 11/05/22 04/07/24 Inhaler] Albuterol Nebulized [Ventolin 2.5 mg INHALATION RT-QID PRN 07/12/23 04/07/24 Nebulized] Gabapentin 300 mg PO TID 03/22/24 04/07/24 Previous Rx's Medication Instructions Recorded oxyCODONE-APAP 10-325MG [Percocet 1 tab PO BID PRN 7 Days #14 tab 03/25/24 10-325 mg] Ipratropium-Albuterol Nebulize 3 ml INHALATION RT-QID each 04/10/24 [Duoneb 0.5 mg-3 mg/3 ml Soln] Allergies Allergy/AdvReac Type Severity Reaction Status Date / Time adhesive Allergy Severe Rash/Hives Verified 05/06/24 08:11 adhesive tape Allergy Severe Rash/Hives Verified 05/06/24 08:11 fentanyl Allergy Severe Rash/Hives Verified 05/06/24 08:11 from patch only latex Allergy Severe Rash/Hives Verified 05/06/24 08:11 metoclopramide [From Reglan] Allergy dystonia Verified 05/06/24 08:11 from IV Reglan micafungin Allergy Diarrhea Verified 05/06/24 08:11 prochlorperazine Allergy dystonia Verified 05/06/24 08:11 [From Compazine] Review of Systems ROS Statement: Those systems with pertinent positive or pertinent negative responses have been documented in the HPI. ROS Other: All systems not noted in ROS Statement are negative. Past Medical History Past Medical History: Asthma, Diabetes Mellitus, GERD/Reflux, Musculoskeletal Disorder, Neurologic Disorder, Sleep Apnea/CPAP/BIPAP, Thyroid Disorder Additional Past Medical History / Comment(s): MS, back pain, DDD, optic neur itis, Gastroparesis., C-Diff (June 2018) leukopenia (sores in mouth) migraines, sleep apnea due to M.S. (no machine), sarcoidosis, cyst in stomach. , hopitalized 10/04/19 after lumbar puncture because heart rate dropped, hospitalized 10/10/19 for headache (post l.p.), states allergy to all adhesive and needs benadryl IV 50mg prior to using tape or tegaderm etc. History of Any Multi-Drug Resistant Organisms: C-DIFF Date of last positivie culture/infection: 2018 MDRO Source:: stool Past Surgical History: Bladder Surgery, Breast Surgery, Hernia Repair, Hysterectomy, Orthopedic Surgery, Tubal Ligation Additional Past Surgical History / Comment(s): rhinoplasty, bladder suspension, breast sx, morphine pump, RT KNEE SCOPE, TUMMY TUCK, Spinal cord stimulator inserted and removed. port august 2019 but removed and new one placed on left side, gastroparesis botox and EGD 11/06/2019, breast implants, gastric surgery (g-poem) 05/05/20, Stent placed on kidney, hernia repair X2 Past Anesthesia/Blood Transfusion Reactions: Motion Sickness, Postoperative Nausea & Vomiting (PONV) Past Psychological History: No Psychological Hx Reported, Anxiety Smoking Status: Never smoker Past Alcohol Use History: Occasional Past Drug Use History: None Reported - Past Family History Father History Unknown: Yes Family Medical History: No Reported History Additional Family Medical History / Comment(s): . Mother History Unknown: Yes Family Medical History: No Reported History Additional Family Medical History / Comment(s): NO FAMILY HISTORY Brother(s) Additional Family Medical History / Comment(s): one brother in seep from CHF, and one of heroin overdose both at age of 27 General Exam Limitations: no limitations General appearance: alert, in no apparent distress Head exam: Present: atraumatic, normocephalic, normal inspection Eye exam: Present: normal appearance, PERRL, EOMI. Absent: scleral icterus, conjunctival injection, periorbital swelling ENT exam: Present: normal exam, mucous membranes moist Neck exam: Present: normal inspection, full ROM. Absent: tenderness, meningismus, lymphadenopathy Respiratory exam: Present: normal lung sounds bilaterally. Absent: respiratory distress, wheezes, rales, rhonchi, stridor Cardiovascular Exam: Present: regular rate, normal rhythm, normal heart sounds. Absent: systolic murmur, diastolic murmur, rubs, gallop, clicks Neurological exam: Present: alert, oriented X3, CN II-XII intact Skin exam: Present: warm, dry, intact, normal color. Absent: rash Course Vital Signs 05/06/24 05/06/24 08:07 11:02 Temperature 98.8 F Pulse Rate 91 64 Respiratory 18 16 Rate Blood Pressure 128/83 119/78 O2 Sat by Pulse 98 99 Oximetry Medical Decision Making - Medical Decision Making Was pt. sent in by a medical professional or institution (, PA, ASSEMBLING MACHINE OPERATOR, urgent care, hospital, or shelter...) When possible be specific @ -No Did you speak to anyone other than the patient for history (EMS, parent, family, police, friend...)? What history was obtained from this source @ -No Did you review nursing and triage notes (agree or disagree)? Why? @ -I reviewed and agree with nursing and triage notes Were old charts reviewed (outside hosp., previous admission, EMS record, old EKG, old radiological studies, urgent care reports/EKG's, shelter records)? Report findings @ -No old charts were reviewed Differential Diagnosis (chest pain, altered mental status, abdominal pain women, abdominal pain men, vaginal bleeding, weakness, fever, dyspnea, syncope, headache, dizziness, GI bleed, back pain, seizure, CVA, palpatations, mental health, musculoskeletal)? @ -Differential Abdominal Pain Women: Appendicitis, Cholecystitis, diverticulosis, ischemic bowel, pancreatitis, hepatitis, UTI, gastroenteritis, AAA, incarcerated hernia, bowel obstruction, constipation, inflammatory bowel, hepatitis, peptic ulcer disease, splenic infarction, perforated viscus, vulvitis, ovarian torsion, PID, kidney stone, placenta abruption, this is not meant to be an all-inclusive list EKG interpreted by me (3pts min.). @ -None X-rays interpreted by me (1pt min.). @ -Chest x-ray has no acute cardiopulmonary process. CT interpreted by me (1pt min.). @ -None done U/S interpreted by me (1pt. min.). @ -None done What testing was considered but not performed or refused? (CT, X-rays, U/S, labs)? Why? @ -None What meds were considered but not given or refused? Why? @ -None Did you discuss the management of the patient with other professionals (professionals i.e. , PA, ASSEMBLING MACHINE OPERATOR, lab, RT, psych nurse, manager social services, fire equipment inspector helper, teacher, police booking officer, assistant case manager)? Give summary @ -No Was smoking cessation discussed for >3mins.? @ -No Was critical care preformed (if so, how long)? @ -No Were there social determinants of health that impacted care today? How? (Homelessness, low income, unemployed, alcoholism, drug addiction, transportation, low edu. Level, literacy, decrease access to med. care, half-way, rehab)? @ -No Was there de-escalation of care discussed even if they declined (Discuss DNR or withdrawal of care, Hospice)? DNR status @ -No What co-morbidities impacted this encounter? (DM, HTN, Smoking, COPD, CAD, Cancer, CVA, ARF, Chemo, Hep., AIDS, mental health diagnosis, sleep apnea, morbid obesity)? @ -None Was patient admitted / discharged? Hospital course, mention meds given and route, prescriptions, significant lab abnormalities, going to OR and other pertinent info. @ -Discharge patient greatly improved after fluids, antiemetics. Patient updated on lab results. Patient will contact her sarcoidosis physician regarding her reaction. Undiagnosed new problem with uncertain prognosis? @ -No Drug Therapy requiring intensive monitoring for toxicity (Heparin, Nitro, Insulin, Cardizem)? @ -No Were any procedures done? @ -No Diagnosis/symptom? @ -Nausea vomiting Acute, or Chronic, or Acute on Chronic? @ -Acute Uncomplicated (without systemic symptoms) or Complicated (systemic symptoms)? @ -Uncomplicated Side effects of treatment? @ -No Exacerbation, Progression, or Severe Exacerbation? @ -No Poses a threat to life or bodily function? How? (Chest pain, USA, ID, pneumonia, PE, COPD, DKA, ARF, appy, cholecystitis, CVA, Diverticulitis, Homicidal, Suicidal, threat to staff... and all critical care pts) @ -No - Lab Data Result diagrams: 05/06/24 09:13 05/06/24 09:13 Lab Results 05/06/24 05/06/24 Range/Units 09:13 09:13 WBC 5.7 (3.8-10.6) k/uL RBC 3.95 (3.80-5.40) m/uL Hgb 10.8 L (11.4-16.0) gm/dL Hct 33.4 L (34.0-46.0) % MCV 84.6 (80.0-100.0) fL MCH 27.5 (25.0-35.0) pg MCHC 32.4 (31.0-37.0) g/dL RDW 13.7 (11.5-15.5) % Plt Count 285 (150-450) k/uL MPV 6.8 Neutrophils % 45 % Lymphocytes % 40 % Monocytes % 9 % Eosinophils % 3 % Basophils % 1 % Neutrophils # 2.5 (1.3-7.7) k/uL Lymphocytes # 2.3 (1.0-4.8) k/uL Monocytes # 0.5 (0-1.0) k/uL Eosinophils # 0.2 (0-0.7) k/uL Basophils # 0.0 (0-0.2) k/uL Sodium 136 L (137-145) mmol/L Potassium 3.7 (3.5-5.1) mmol/L Chloride 99 (98-107) mmol/L Carbon Dioxide 31 H (22-30) mmol/L Anion Gap 6 mmol/L BUN 16 (7-17) mg/dL Creatinine 0.82 (0.52-1.04) mg/dL Est GFR (CKD-EPI)AfAm >90 (>60 ml/min/1.73 sqM) Est GFR (CKD-EPI)NonAf 83 (>60 ml/min/1.73 sqM) Glucose 110 H (74-99) mg/dL Calcium 9.3 (8.4-10.2) mg/dL Total Bilirubin 0.6 (0.2-1.3) mg/dL AST 24 (14-36) U/L ALT 15 (4-34) U/L Alkaline Phosphatase 68 (38-126) U/L Total Protein 6.8 (6.3-8.2) g/dL Albumin 3.9 (3.5-5.0) g/dL Disposition Clinical Impression: Nausea & vomiting Disposition: HOME SELF-CARE Condition: Stable Instructions (If sedation given, give patient instructions): Acute Nausea and Vomiting (ED) Additional Instructions: Please return to the Emergency Department if symptoms worsen or any other concerns. Is patient prescribed a controlled substance at d/c from ED?: No Referrals: Sean Wynne MD [Primary Care Provider] - 1-2 days Time of Disposition: 10:22
[2024-05-06] MEDS: droPERidol 2.5 MG/ML VIAL IVP ONE (09:06)
[2024-05-06] MEDS: ONDANSETRON 4 MG/2 ML VIAL IVP STA (09:08)
[2024-05-06] MEDS: diphenhydrAMINE 50 MG/ML 1 ML VIAL IVP STA (09:08)
[2024-05-06 09:22] LABS: Basophils % (A) 1 %; Eosinophils # (A) 0.2 k/uL (0-0.7); Eosinophils % (A) 3 %; HCT 33.4 % (34.0-46.0); HGB 10.8 gm/dL (11.4-16.0); Lymphocytes # (A) 2.3 k/uL (1.0-4.8); Lymphocytes % (A) 40 %; MCH 27.5 pg (25.0-35.0); MCHC 32.4 g/dL (31.0-37.0); MCV 84.6 fL (80.0-100.0); Mean Platelet Volume 6.8; Monocytes # (A) 0.5 k/uL (0-1.0); Monocytes % (A) 9 %; Neutrophils # (A) 2.5 k/uL (1.3-7.7); Neutrophils % (A) 45 %; Platelet Count 285 k/uL (150-450); RBC 3.95 m/uL (3.80-5.40); RDW 13.7 % (11.5-15.5); WBC 5.7 k/uL (3.8-10.6)
--- NOTE | 2024-05-06 09:36 | XR ---
EXAMINATION TYPE: XR chest 2V DATE OF EXAM: 05/06/2024 9:27 AM COMPARISON: Chest radiographs from 04/02/2024, CT chest 03/24/2024 TECHNIQUE: XR chest 2V Frontal and lateral views of the chest. CLINICAL INDICATION:Female, 53 years old with history of cough; FINDINGS: Lungs/Pleura: There is no evidence of pleural effusion, focal consolidation, or pneumothorax. Pulmonary vascularity: Unremarkable. Heart/mediastinum: Cardiomediastinal silhouette is unremarkable. Musculoskeletal: No acute osseous pathology. Other findings: None Lines/Tubes: Left subclavian approach injection port projecting over the left hemithorax with distal tip at the mid SVC. IMPRESSION: No acute cardiopulmonary disease/process. [facility], , 05/06/2024 9:34 AM
[2024-05-06 09:46] LABS: ALT 15 U/L (4-34); AST 24 U/L (14-36); African American GFR (CKD) >90 (>60 ml/min/1.73 sqM); Albumin 3.9 g/dL (3.5-5.0); Alkaline Phosphatase 68 U/L (38-126); Anion Gap 6 mmol/L; Blood Urea Nitrogen 16 mg/dL (7-17); Calcium 9.3 mg/dL (8.4-10.2); Carbon Dioxide 31 mmol/L (22-30); Chloride 99 mmol/L (98-107); Glucose 110 mg/dL (74-99); Non-African American GFR(CKD) 83 (>60 ml/min/1.73 sqM); Potassium 3.7 mmol/L (3.5-5.1); Sodium 136 mmol/L (137-145); Total Bilirubin 0.6 mg/dL (0.2-1.3); Total Protein 6.8 g/dL (6.3-8.2)
[2024-05-06 11:02] VITALS: BP 119/78; PULSE 64; RESP 16
== END 2024-05-06 11:02 | disposition home or self-care (01) ==
LOC: EC 07:58
DX: R11.2 Nausea with vomiting, unspecified (principal); Z88.8 Allergy status to other drugs, medicaments and biological substances; Z91.040 Latex allergy status
CPT/HCPCS: 99284 ×2; 96374 ×2; 96375 ×3; 36415; 80053; 85025; 71046; J1200; J2405; J1642

== ENCOUNTER 2024-05-29 05:47 | Day surgery (SDC) | payer MEDICARE, OTHER ==
[2024-05-29] MEDS ORDERED: HYDROmorphone 0.5 MG/0.5 ML SYRINGE IVP PRN ×2 (06:12→16:02)
[2024-05-29] MEDS: IV FLUID CONTINUATION 1,000 ML IV ONE (06:21)
[2024-05-29] MEDS: diphenhydrAMINE 50 MG/ML 1 ML VIAL IVP STA (07:03)
[2024-05-29] MEDS: DEXAMETHASONE SOD PHOSPHATE 4 MG/ML 1 ML VIAL IV ONE (07:04)
[2024-05-29] MEDS: ACETAMINOPHEN TAB 500 MG TAB PO PRN (07:04)
[2024-05-29] MEDS: ONDANSETRON 4 MG/2 ML VIAL IVP ONE (07:04)
[2024-05-29] MEDS: LACTATED RINGERS 1,000 ML IV SCH (07:04)
[2024-05-29] MEDS: HEPARIN SODIUM,PORCINE 5,000 UNIT/ML 1 ML VIAL SQ PRN (07:05)
[2024-05-29] MEDS: FAMOTIDINE 20 MG/2 ML VIAL IV STA (07:19)
[2024-05-29] MEDS ORDERED: ePHEDrine 50 MG/ML 1 ML VIAL ONE (07:32)
[2024-05-29] MEDS ORDERED: fentaNYL (PF) 50 MCG/ML 2 ML AMP ONE (07:32)
[2024-05-29] MEDS ORDERED: SUGAMMADEX SODIUM 100 MG/ML SYR IV ONE (07:32)
[2024-05-29] MEDS ORDERED: SUCCINYLCHOLINE CHLORIDE 200 MG/10 ML VIAL IV ONE (07:32)
[2024-05-29] MEDS ORDERED: LIDOCAINE 1% INJ 10MG/ML (20 ML MDV) ONE (07:32)
[2024-05-29] MEDS ORDERED: PROPOFOL 10 MG/ML 20 ML VIAL IV ONE (07:32)
[2024-05-29] MEDS ORDERED: HYDROmorphone (PF) 1 MG/ML ONE (07:32)
[2024-05-29] MEDS ORDERED: WATER FOR INJECTION, STERILE 10 ML VIAL IV ONE (07:32)
[2024-05-29] MEDS ORDERED: KETAMINE HCL IN 0.9 % NACL 50 MG/5 ML SYRINGE ONE (07:32)
[2024-05-29] MEDS ORDERED: ROCURONIUM 10 MG/ML (5 ML VIAL) IV ONE (07:32)
[2024-05-29] MEDS: BUPIVACAINE (PF) 0.25% 30 ML VIAL SQ ONE (08:19)
--- NOTE | 2024-05-29 09:37 | P.OP ---
Date of Procedure: 05/29/24 Preoperative Diagnosis: Dysphagia Recurrent hiatal hernia Postoperative Diagnosis: Dysphagia Recurrent hiatal hernia Procedure(s) Performed: Laparoscopic repair of hiatal hernia Gastrorrhaphy of PEG tube site Anesthesia: MINH Surgeon: Skyler Denney Estimated Blood Loss (ml): 5 Pathology: none sent Condition: stable Disposition: PACU Description of Procedure: The patient was placed on the operating table in the supine position. The patient received general anesthesia. And was placed in dorsal lithotomy position. The patient was prepped and draped in the usual sterile fashion. The skin incision sites were anesthetized with 1% local Xylocaine. The skin was incised in the left periumbilical area and then using a blade less 5 mm trocar under direct visualization panel cavity was entered. After adequate insufflation the laparoscope was then placed into the peritoneal cavity. Next a 5 mm trochars placed in the right epigastric position. Another 5 millimeter trocar the right lateral position. Another 5 millimeter trocar in the left lateral position a 5 mm trocar is placed in the left epigastric position. And then the initial 5 mm trocar was exchanged for a 10 mm trocar. The left lateral lobe liver was retracted. The patient had a previously placed PEG tube. A gastrorrhaphy was performed by dividing the PEG tube tract with a 60 mm EEA stapler. The hernia was seen. There were adhesions of the stomach to the diaphragm. These were lysed with sharp dissection. The crural defect was then dissected using the Harmonic scissors device. A 360 crural dissection was performed the esophagus stomach was reduced back into the peritoneal Cavity. The crural defect was then closed using 2-0 Ethibond suture. There was no injury seen to the stomach or esophagus. The stomach was insufflated with methylene blue normal saline. There is no evidence of any extravasation of methylene blue from the stomach or esophagus. . The abdomen was irrigated there is no bleeding seen. The trochars were then withdrawn and then skin incision sites were closed using 3-0 Monocryl suture sterile dressing applied. Patient was sent to recovery in stable condition.
[2024-05-29] MEDS: ONDANSETRON 4 MG/2 ML VIAL IVP PRN (10:29)
[2024-05-29] MEDS ORDERED: METOCLOPRAMIDE 5 MG/ML 2 ML VIAL IVP SCH (12:00)
[2024-05-29] MEDS: HYDROmorphone 1 MG/ML 1 ML SYRINGE IVP PRN ×2 (14:19→17:46)
[2024-05-29] MEDS: D5-0.45% NACL WITH KCL 20MEQ/L 1,000 ML IV SCH (14:37)
[2024-05-29] MEDS ORDERED: diphenhydrAMINE 50 MG/ML 1 ML VIAL IVP PRN (14:45)
[2024-05-29] MEDS ORDERED: SUMAtriptan succinate 6 MG/0.5 ML VIAL SQ PRN (15:23)
[2024-05-29] MEDS ORDERED: ALBUTEROL NEBULIZED 2.5 MG/3 ML INHALATION PRN (15:23)
[2024-05-29] MEDS ORDERED: NON FORMULARY DRUG (Albuterol Inhaler 90 MCG Puff) INHALATION PRN (15:23)
[2024-05-29] MEDS ORDERED: oxyCODONE-APAP 10-325MG 1 EACH TAB PO PRN (15:23)
[2024-05-29] MEDS ORDERED: ONDANSETRON ODT 8 MG TAB.RAPDIS PO PRN (15:23)
[2024-05-29] MEDS: IPRATROPIUM-ALBUTEROL 3 ML NEB INHALATION SCH (16:38)
[2024-05-29] MEDS: BACLOFEN 10 MG TAB PO SCH (16:39)
[2024-05-29] MEDS: GABAPENTIN 300 MG CAP PO SCH (16:40)
[2024-05-29] MEDS: methocarbamoL 500 MG TAB PO SCH (16:40)
[2024-05-29] MEDS: diphenhydrAMINE 50 MG/ML 1 ML VIAL IVP PRN (18:13)
[2024-05-29 20:55] LABS: Glucose,Whole Blood 130 mg/dL (70-110)
--- NOTE | 2024-05-29 21:08 | CONS ---
CONSULTATION A 53-year-old white female. Medical management consult for status post hiatal hernia surgery and repair of a PEG tube. She had hiatal hernia repair after the last gastric sleeve; it was loose, but Dr. Denney took out the PEG tube. Medications were reordered. She is complaining of 10/10 pain. She is on Dilaudid 1 mg every 4 hours that I increased to 1 mg every 3. Continue the home medications for pain control, etc. PHYSICAL EXAMINATION: GENERAL: She is lying comfortably in bed. CARDIOVASCULAR: S1, S2. LUNGS: Transmitted upper airway sounds, clear. GI: Soft. She is holding her belly. NEUROLOGIC: Alert and oriented x3. PSYCHIATRIC: Fair mood and affect. HEMATOLOGY: Negative Homans. OPHTHALMOLOGIC: Pupils equal, round, reactive. ASSESSMENT: 1. Hiatal hernia repair. 2. History of sarcoidosis. 3. Chronic obstructive pulmonary disease. Prognosis is guarded. Follow up in the next 24 to 48 hours. Pain control has been done. Please see further orders. MMODL / IJN: [id number] /
[2024-05-29] MEDS: FAMOTIDINE 20 MG/2 ML VIAL IV SCH (21:17)
[2024-05-29] MEDS: PANTOPRAZOLE 40 MG TABLET PO SCH (21:25)
[2024-05-29] MEDS: ALPRAZolam 0.25 MG TAB PO SCH (21:25)
[2024-05-30 06:07] LABS: Glucose,Whole Blood 112 mg/dL (70-110)
[2024-05-30] MEDS: LEVOTHYROXINE 112 MCG TAB PO SCH (06:36)
[2024-05-30 09:09] VITALS: RESP 18
[2024-05-30] MEDS: DULoxetine HCL 60 MG CAPSULE.DR PO SCH (09:46)
[2024-05-30] MEDS: ENOXAPARIN 40 MG/0.4 ML SYRINGE SQ SCH (09:51)
[2024-05-30 11:52] LABS: Glucose,Whole Blood 107 mg/dL (70-110)
[2024-05-30 13:36] VITALS: BMI 33.8
[2024-05-30] MEDS ORDERED: oxyCODONE-APAP 10-325MG 1 EACH TAB PO PRN ×2 (15:07→15:30)
--- NOTE | 2024-05-30 15:13 | P.DS ---
Providers Expected date of discharge: 05/30/24 Attending physician: Skyler Denney Consults: 05/29/24 09:40 Consult Physician Routine Consulting Provider: Sean Wynne Consult Reason/Comments: med manage Do you want consulting provider notified?: Yes Primary care physician: Abdi Taylor Hospital Course: Discharge diagnosis 1. Dysphagia and recurrent hiatal hernia Hospital course This is a 53-year-old female with a known recurrent hiatal hernia and dysphagia. She is status post laparoscopic repair of hiatal hernia and Gastrorrhaphy of PEG tube site. Her pain is controlled. She has tolerated liquids. Upper GI reviewed by Dr. Denney no evidence of leak or obstruction. Patient is afebrile. She has been up and ambulating. She denies any difficulty urinating. Patient is stable for discharge. Please refer to chart for any further details. Physician Residential Green Building Designer note has been reviewed by physician. Signing provider agrees with the documented findings, assessment, and plan of care. Patient Condition at Discharge: Stable Plan - Discharge Summary Discharge Rx Participant: Yes New Discharge Prescriptions: Continue DULoxetine HCL [Cymbalta] 60 mg PO DAILY rOPINIRole HCL [Requip] 2 mg PO TID Levothyroxine Sodium [Synthroid] 112 mcg PO DAILY Baclofen 20 mg PO TID Ondansetron Odt [Zofran ODT] 8 mg PO DAILY PRN PRN Reason: Nausea methocarbamoL [Robaxin] 500 mg PO TID Pantoprazole Sodium [Protonix] 40 mg PO BID SUMAtriptan succinate 6 mg SQ BID PRN PRN Reason: Migraine Headache Infliximab-Dyyb [Inflectra] 1 dose IV Q42D ALPRAZolam [Xanax] 0.25 mg PO BID Albuterol Inhaler [Ventolin Hfa Inhaler] 2 puff INHALATION RT-Q6H PRN PRN Reason: Shortness Of Breath Albuterol Nebulized [Ventolin Nebulized] 2.5 mg INHALATION RT-QID PRN PRN Reason: Shortness Of Breath oxyCODONE-APAP 10-325MG [Percocet 10-325 mg] 1 tab PO BID PRN 7 Days #14 tab PRN Reason: Pain Ipratropium-Albuterol Nebulize [Duoneb 0.5 mg-3 mg/3 ml Soln] 3 ml INHALATION RT-QID each Gabapentin 300 mg PO TID Vyepti Infusion 1 dose IV Q90D Morphine Pump Discharge Medication List DULoxetine HCL [Cymbalta] 60 mg PO DAILY 01/10/17 [History] Levothyroxine Sodium [Synthroid] 112 mcg PO DAILY 12/05/18 [History] rOPINIRole HCL [Requip] 2 mg PO TID 12/05/18 [History] Baclofen 20 mg PO TID 04/29/19 [History] Ondansetron Odt [Zofran ODT] 8 mg PO DAILY PRN 11/13/19 [History] Pantoprazole Sodium [Protonix] 40 mg PO BID 05/10/20 [History] SUMAtriptan succinate 6 mg SQ BID PRN 05/10/20 [History] methocarbamoL [Robaxin] 500 mg PO TID 05/10/20 [History] Infliximab-Dyyb [Inflectra] 1 dose IV Q42D 05/23/20 [History] ALPRAZolam [Xanax] 0.25 mg PO BID 11/05/22 [History] Albuterol Inhaler [Ventolin Hfa Inhaler] 2 puff INHALATION RT-Q6H PRN 11/05/22 [History] Albuterol Nebulized [Ventolin Nebulized] 2.5 mg INHALATION RT-QID PRN 07/12/23 [History] Gabapentin 300 mg PO TID 03/22/24 [History] oxyCODONE-APAP 10-325MG [Percocet 10-325 mg] 1 tab PO BID PRN 7 Days #14 tab 03/25/24 [Rx] Ipratropium-Albuterol Nebulize [Duoneb 0.5 mg-3 mg/3 ml Soln] 3 ml INHALATION RT-QID each 04/10/24 [Rx] Morphine Pump 05/27/24 [History] Vyepti Infusion 1 dose IV Q90D 05/27/24 [History] Follow up Appointment(s)/Referral(s): Skyler Denney MD [STAFF PHYSICIAN] - 1 Week Activity/Diet/Wound Care/Special Instructions: No driving while taking narcotics. Patient to follow-up with her pain management team. No lifting over 10 pounds Shower daily. No soaking or tub baths for 2 weeks Very light activity until you are reevaluated at your follow up appointment with your surgeon Discharge Disposition: HOME SELF-CARE
--- NOTE | 2024-05-30 15:14 | FL ---
EXAMINATION TYPE: FL esophagus cervic/pharynx DATE OF EXAM: 05/30/2024 10:27 AM COMPARISON: 05/20/2024 CLINICAL INDICATION:Female, 53 years old with history of rule out leak/obstruction; TECHNIQUE: Limited single contrast UGI study is performed with Isovue-370. DAP: 2937.68 mGym2 FINDINGS: The stomach demonstrates a postsurgical morphology. No extravasation of contrast identifie d. No evidence of mass or ulcer disease. The duodenal bulb and sweep are unremarkable. IMPRESSION: Postsurgical changes without evidence of contrast extravasation. [facility], , 05/30/2024 3:12 PM
[2024-05-30 15:45] VITALS: BP 120/76; PULSE 56; TEMP 97.8
== END 2024-05-30 16:42 | disposition home or self-care (01) ==
LOC: OR 05:47 → 4SSUR 12:51 → OR 05-30 16:42
PROVIDERS: ATTEND Surgery
DX: K44.9 Diaphragmatic hernia without obstruction or gangrene (principal); D86.9 Sarcoidosis, unspecified; J44.9 Chronic obstructive pulmonary disease, unspecified; Z79.899 Other long term (current) drug therapy
CPT/HCPCS: 74210; 43281; J1200 ×2; J1644; J1100; J0690 ×2; J2405 ×2; J1650; J3490 ×2; J1171 ×2; J1642; Q9967; J0665

== ENCOUNTER 2024-07-23 18:56 | Inpatient (IN) | payer MEDICARE, OTHER ==
--- NOTE | 2024-07-23 19:44 | ED ---
General Adult HPI - General Source: patient, RN notes reviewed Mode of arrival: ambulatory Limitations: no limitations <Peewee Gamez - Last Filed: 07/23/24 19:41> <Jacob Garland - Last Filed: 07/24/24 00:10> - General Chief complaint: Recheck/Abnormal Lab/Rx Stated complaint: joint pain, headache Time Seen by Provider: 07/23/24 19:14 - History of Present Illness Initial comments: Quick note: This is a 54-year-old female with history including sarcoidosis and MS presenting for low back pain (01/10) x 3 days. Patient attributes pain to a sarcoidosis flare with associated diffuse joint pain as well as a migraine. Patient endorses recent hiatal hernia surgery 1 month ago. Patient states she requires admission and an IV drip of 250 mg Solu-Medrol for 3 days for treatment. Patient states she has a phone number for her PCP to call for confirmation. Patient states she has a port as well. (Peewee Gamez) Dictation was produced using [employer] dictation software. please excuse any grammatical, word or spelling errors. Chief Complaint: 54-year-old female presents with sarcoidosis flare History of Present Illness: Patient is 54-year-old female she states she has history of sarcoidosis. States that her primary care doctor requested that she come to the ER to be admitted before inpatient Solu-Medrol treatment. She states that her primary care doctor told her this yesterday. She did not come yesterday due to issues with her dog. States that she is having her usual classic symptoms of a sarcoidosis flare including joint pain, rash, headache and scratchy throat. Patient states she has a port. The ROS documented in this emergency department record has been reviewed and confirmed by me. Those systems with pertinent positive or negative responses have been documented in the HPI. All other systems are other negative and/or noncontributory. (Jacob Garland) - Related Data Home Medications Medication Instructions Recorded Confirmed DULoxetine HCL [Cymbalta] 60 mg PO DAILY 01/10/17 05/27/24 Levothyroxine Sodium [Synthroid] 112 mcg PO DAILY 12/05/18 05/27/24 rOPINIRole HCL [Requip] 2 mg PO TID 12/05/18 05/27/24 Baclofen 20 mg PO TID 04/29/19 05/27/24 Ondansetron Odt [Zofran ODT] 8 mg PO DAILY PRN 11/13/19 05/27/24 Pantoprazole Sodium [Protonix] 40 mg PO BID 05/10/20 05/27/24 SUMAtriptan succinate 6 mg SQ BID PRN 05/10/20 05/27/24 methocarbamoL [Robaxin] 500 mg PO TID 05/10/20 05/27/24 Infliximab-Dyyb [Inflectra] 1 dose IV Q42D 05/23/20 05/27/24 ALPRAZolam [Xanax] 0.25 mg PO BID 11/05/22 05/27/24 Albuterol Inhaler [Ventolin Hfa 2 puff INHALATION RT-Q6H PRN 11/05/22 05/27/24 Inhaler] Albuterol Nebulized [Ventolin 2.5 mg INHALATION RT-QID PRN 07/12/23 05/27/24 Nebulized] Gabapentin 300 mg PO TID 03/22/24 05/27/24 Morphine Pump 05/27/24 Vyepti Infusion 1 dose IV Q90D 05/27/24 Previous Rx's Medication Instructions Recorded oxyCODONE-APAP 10-325MG [Percocet 1 tab PO BID PRN 7 Days #14 tab 03/25/24 10-325 mg] Ipratropium-Albuterol Nebulize 3 ml INHALATION RT-QID each 04/10/24 [Duoneb 0.5 mg-3 mg/3 ml Soln] HYDROcodone/APAP 5-325MG [[place] 1 tab PO Q6HR PRN #10 tab 05/30/24 5-325] Allergies Allergy/AdvReac Type Severity Reaction Status Date / Time adhesive Allergy Severe Rash/Hives Verified 07/23/24 19:09 adhesive tape Allergy Severe Rash/Hives Verified 07/23/24 19:09 fentanyl Allergy Severe Rash/Hives Verified 07/23/24 19:09 from patch only latex Allergy Severe Rash/Hives Verified 07/23/24 19:09 metoclopramide [From Reglan] Allergy dystonia Verified 07/23/24 19:09 from IV Reglan micafungin Allergy Diarrhea Verified 07/23/24 19:09 prochlorperazine Allergy dystonia Verified 07/23/24 19:09 [From Compazine] Review of Systems ROS Other: All systems not noted in ROS Statement are negative. <Peewee Gamez - Last Filed: 07/23/24 19:41> ROS Other: All systems not noted in ROS Statement are negative. <Jacob Garland - Last Filed: 07/24/24 00:10> ROS Statement: Those systems with pertinent positive or pertinent negative responses have been documented in the HPI. Past Medical History Past Medical History: Asthma, Diabetes Mellitus, GERD/Reflux, Musculoskeletal Disorder, Neurologic Disorder, Sleep Apnea/CPAP/BIPAP, Thyroid Disorder Additional Past Medical History / Comment(s): MS, back pain, DDD, optic ne uritis, Gastroparesis., C-Diff (June 2018) leukopenia (sores in mouth) migraines, sleep apnea due to M.S. (no machine), sarcoidosis, cyst in stomach. , hopitalized 10/04/19 after lumbar puncture because heart rate dropped, hospitalized 10/10/19 for headache (post l.p.), states allergy to all adhesive and needs benadryl IV 50mg prior to using tape or tegaderm etc. HIATAL HERNIA History of Any Multi-Drug Resistant Organisms: C-DIFF Date of last positivie culture/infection: 2018 MDRO Source:: stool Past Surgical History: Bladder Surgery, Breast Surgery, Hernia Repair, Hysterectomy, Orthopedic Surgery, Tubal Ligation Additional Past Surgical History / Comment(s): rhinoplasty, bladder suspension, breast sx, morphine pump, RT KNEE SCOPE, TUMMY TUCK, Spinal cord stimulator inserted and removed. port august 2019 but removed and new one placed on left side, gastroparesis botox and EGD 11/06/2019, breast implants, gastric surgery (g-poem) 05/05/20, Stent placed on kidney, hernia repair X2,COLONOSCOPY Past Anesthesia/Blood Transfusion Reactions: Motion Sickness, Postoperative Nausea & Vomiting (PONV) Additional Past Anesthesia/Blood Transfusion Reaction / Comment(s): NO HX BLOOD TRANSFUSION Past Psychological History: Anxiety Smoking Status: Never smoker Past Alcohol Use History: Occasional Past Drug Use History: None Reported - Past Family History Father History Unknown: Yes Family Medical History: No Reported History Additional Family Medical History / Comment(s): . Mother History Unknown: Yes Family Medical History: No Reported History Additional Family Medical History / Comment(s): NO FAMILY HISTORY Brother(s) Additional Family Medical History / Comment(s): one brother in sLeep from CHF, and one of heroin overdose both at age of 27 <Peewee Gamez - Last Filed: 07/23/24 19:41> General Exam Limitations: no limitations <Peewee Gamez - Last Filed: 07/23/24 19:41> <Jacob Garland - Last Filed: 07/24/24 00:10> - General Exam Comments Initial Comments: Visual Physical Exam Vital signs reviewed General: Well-appearing, nontoxic, no acute distress. Head: Normocephalic, atraumatic Eyes: PERRLA, EOMI ENT: Airway patent Chest: Nonlabored breathing Skin: No visual rash, normal skin tone Neuro: Alert and oriented 3 Musculoskeletal: No gross abnormalities (Peewee Gamez) PHYSICAL EXAM: General Impression: Alert and oriented x3, not in acute distress HEENT: Normocephalic atraumatic, extra-ocular movements intact, pupils equal and reactive to light bilaterally, mucous membranes moist. Cardiovascular: Heart regular rate and rhythm Chest: Able to complete full sentences, no retractions, no tachypnea Abdomen: abdomen soft, non-tender, non-distended, no organomegaly Musculoskeletal: Pulses present and equal in all extremities, no peripheral edema Motor: no focal deficits noted Neurological: CN II-XII grossly intact, no focal motor or sensory deficits noted Skin: Intact with no visualized rashes Psych: Normal affect and mood (Jacob Garland) Course Vital Signs 07/23/24 07/23/24 19:07 21:30 Temperature 98.6 F Pulse Rate 88 93 Respiratory 18 18 Rate Blood Pressure 146/110 149/90 O2 Sat by Pulse 100 98 Oximetry EKG Findings - EKG Comments: EKG Findings:: My EKG interpretation: Ventricular rate 83, sinus rhythm, MA 130, cures 92, QTc 410. No MA prolongation, no QTC prolongation, no ST or T-wave changes noted. Overall, this EKG is unremarkable <Jacob Garland - Last Filed: 07/24/24 00:10> Medical Decision Making <Peewee Gamez - Last Filed: 07/23/24 19:41> - Lab Data Result diagrams: 07/23/24 23:15 07/23/24 23:15 <Jacob Garland - Last Filed: 07/24/24 00:10> - Medical Decision Making I completed the quick note portion of this chart signed PETER Steele (Peewee Gamez) Was pt. sent in by a medical professional or institution (GILLIAN Garza, SCREEN MAKING TECHNICIAN, urgent care, hospital, or alf...) When possible be specific @ -No Did you speak to anyone other than the patient for history (EMS, parent, family, police, friend...)? What history was obtained from this source @ -No Did you review nursing and triage notes (agree or disagree)? Why? @ -I reviewed and agree with nursing and triage notes Were old charts reviewed (outside hosp., previous admission, EMS record, old EKG, old radiological studies, urgent care reports/EKG's, alf records)? Report findings @ -No old charts were reviewed Differential Diagnosis (chest pain, altered mental status, abdominal pain women, abdominal pain men, vaginal bleeding, musculoskeletal, weakness, fever, dyspnea, syncope, headache, dizziness, GI bleed, back pain, seizure, CVA, palpatations, mental health)? @ -Differential Musculoskeletal: Muscular strain, contusion, ligament sprain, fracture, arthritis, septic arthritis, bursitis, cellulitis, muscle spasm, nerve compression, DVT, arterial occlusion, herpes zoster, electrolyte abnormality, tumor.... This is not meant to be in all inclusive list EKG interpreted by me (3pts min.). @ -See above X-rays interpreted by me (1pt min.). @ -None done CT interpreted by me (1pt min.). @ -None done U/S interpreted by me (1pt. min.). @ -None done What testing was considered but not performed or refused? (CT, X-rays, U/S, labs)? Why? @ -None What meds were considered but not given or refused? Why? @ -None Was smoking cessation discussed for >3mins.? @ -No Were there social determinants of health that impacted care today? How? (Homelessness, low income, unemployed, alcoholism, drug addiction, transportation, low edu. Level, literacy, decrease access to med. care, assisted, rehab)? @ -No Was there de-escalation of care discussed even if they declined (Discuss DNR or withdrawal of care, Hospice)? DNR status @ -No What co-morbidities impacted this encounter? (DM, HTN, Smoking, COPD, CAD, Cancer, CVA, ARF, Chemo, Hep., AIDS, mental health diagnosis, sleep apnea, morbid obesity)? @ -Sarcoidosis Was patient admitted / discharged? Hospital course, mention meds given and route, prescriptions, significant lab abnormalities, going to OR and other pertinent info. @ -54-year-old female with sarcoidosis flare. Vital signs stable. Physical examination is benign. Patient no acute distress. Laboratory evaluation is unremarkable. Patient requesting admission to Dr. Wynne. Case discussed with Dr. Wynne who is agreeable with assuming patient's care in the hospital. Patient given Solu-Medrol. Did you discuss the management of the patient with other professionals (professionals i.e. , PA, SCREEN MAKING TECHNICIAN, lab, RT, psych nurse, psych social worker, catering sales manager, teacher, correction officer supervisor, correctional casework specialist)? Give summary @ -No Was critical care preformed (if so, how long)? @ -No Undiagnosed new problem with uncertain prognosis? @ -No Drug Therapy requiring intensive monitoring for toxicity (Heparin, Nitro, Insulin, Cardizem)? @ -No Were any procedures done? @ -No Diagnosis/symptom? Acute, or Chronic, or Acute on Chronic? Uncomplicated (without systemic symptoms) or Complicated (systemic symptoms)? @ -Sarcoidosis flare Side effects of treatment? @ -No Exacerbation, Progression, or Severe Exacerbation? @ -No Poses a threat to life or bodily function? How? (Chest pain, [place], [place], pneumonia, PE, COPD, DKA, ARF, appy, cholecystitis, CVA, Diverticulitis, Homicidal, Suicidal, threat to staff... and all critical care pts) @ -yes (Jacob Garland) - Lab Data Lab Results 07/23/24 07/23/24 Range/Units 23:15 23:15 WBC 5.32 (4.50-10.00) 10*3/uL RBC 3.79 L (4.10-5.20) 10*6/uL Hgb 10.5 L (12.0-15.0) g/dL Hct 32.1 L (37.2-46.3) % MCV 84.7 (80.0-97.0) fL MCH 27.7 (27.0-32.0) pg MCHC 32.7 (32.0-37.0) g/dL Plt Count 235 (140-440) 10*3/uL MPV 9.8 (9.5-12.2) fL Immature Gran % (Auto) 0.4 % Neutrophils % 33.9 % Lymphocytes % 51.7 % Monocytes % 9.6 % Eosinophils % 3.8 % Basophils % 0.6 % Immature Gran # 0.02 (0.00-0.04) 10*3/uL Neutrophils # 1.81 (1.80-7.70) 10*3/uL Lymphocytes # 2.75 (0.90-5.00) 10*3/uL Monocytes # 0.51 (0.20-1.00) 10*3/uL Eosinophils # 0.20 (0.04-0.35) 10*3/uL Basophils # 0.03 (0.00-0.10) 10*3/uL Sodium 140 (137-145) mmol/L Potassium 3.7 (3.5-5.1) mmol/L Chloride 107 (98-107) mmol/L Carbon Dioxide 26 (22-30) mmol/L Anion Gap 7 mmol/L BUN 13 (7-17) mg/dL Creatinine 0.65 (0.52-1.04) mg/dL Est GFR (CKD-EPI)AfAm >90 (>60 ml/min/1.73 sqM) Est GFR (CKD-EPI)NonAf >90 (>60 ml/min/1.73 sqM) Glucose 109 H (74-99) mg/dL Calcium 9.4 (8.4-10.2) mg/dL Total Bilirubin 0.5 (0.2-1.3) mg/dL AST 30 (14-36) U/L ALT 17 (4-34) U/L Alkaline Phosphatase 65 (38-126) U/L Total Protein 6.1 L (6.3-8.2) g/dL Albumin 3.6 (3.5-5.0) g/dL Disposition <Peewee Gamez - Last Filed: 07/23/24 19:41> Decision Time: 00:10 <Jacob Garland - Last Filed: 07/24/24 00:10> Clinical Impression: Sarcoidosis Disposition: ADMITTED IP TO THIS HOSP Condition: Fair Referrals: Tila Gamble MD [Primary Care Provider] - 1-2 days
[2024-07-23] MEDS: methylPREDNISolone SOD SUCCI 125 MG/2 ML VIAL IV STA (22:26)
[2024-07-23] MEDS: ONDANSETRON 4 MG/2 ML VIAL IVP STA (23:07)
[2024-07-23] MEDS: SODIUM CHLORIDE 0.9% 1,000 ML IV STA (23:08)
[2024-07-23] MEDS: KETOROLAC 15 MG/ML 1 ML VIAL IVP STA (23:09)
[2024-07-23] MEDS: diphenhydrAMINE 50 MG/ML 1 ML VIAL IVP STA (23:11)
[2024-07-23 23:19] LABS: Basophils # (A) 0.03 10*3/uL (0.00-0.10); Basophils % (A) 0.6 %; Eosinophils % (A) 3.8 %; HCT 32.1 % (37.2-46.3); HGB 10.5 g/dL (12.0-15.0); Lymphocytes # (A) 2.75 10*3/uL (0.90-5.00); Lymphocytes % (A) 51.7 %; MCH 27.7 pg (27.0-32.0); MCHC 32.7 g/dL (32.0-37.0); MCV 84.7 fL (80.0-97.0); Mean Platelet Volume 9.8 fL (9.5-12.2); Monocytes # (A) 0.51 10*3/uL (0.20-1.00); Monocytes % (A) 9.6 %; Neutrophils # (A) 1.81 10*3/uL (1.80-7.70); Neutrophils % (A) 33.9 %; Platelet Count 235 10*3/uL (140-440); RBC 3.79 10*6/uL (4.10-5.20); RDW 14.8 % (11.5-14.5); WBC 5.32 10*3/uL (4.50-10.00)
[2024-07-23 23:53] LABS: ALT 17 U/L (4-34); AST 30 U/L (14-36); African American GFR (CKD) >90 (>60 ml/min/1.73 sqM); Albumin 3.6 g/dL (3.5-5.0); Alkaline Phosphatase 65 U/L (38-126); Anion Gap 7 mmol/L; Blood Urea Nitrogen 13 mg/dL (7-17); Calcium 9.4 mg/dL (8.4-10.2); Carbon Dioxide 26 mmol/L (22-30); Chloride 107 mmol/L (98-107); Glucose 109 mg/dL (74-99); Non-African American GFR(CKD) >90 (>60 ml/min/1.73 sqM); Potassium 3.7 mmol/L (3.5-5.1); Sodium 140 mmol/L (137-145); Total Bilirubin 0.5 mg/dL (0.2-1.3); Total Protein 6.1 g/dL (6.3-8.2)
[2024-07-23] MEDS: methylPREDNISolone SOD SUCCIN 250 MG in SODIUM CHLORIDE 0.9% 100 ML IVPB ONE (23:58)
[2024-07-24] MEDS: methylPREDNISolone SOD SUCCIN 250 MG in SODIUM CHLORIDE 0.9% 100 ML IVPB STA
[2024-07-24] MEDS ORDERED: NALOXONE 0.4 MG/ML 1 ML VIAL IV PRN (00:07)
[2024-07-24] MEDS: MORPHINE SULFATE 4 MG/ML SYRINGE IVP STA (02:44)
[2024-07-24] MEDS: SODIUM CHLORIDE 0.9% 1,000 ML IV SCH (02:52)
[2024-07-24] MEDS: diphenhydrAMINE 50 MG/ML 1 ML VIAL IVP STA ×2 (06:12→09:09)
[2024-07-24] MEDS: LOPERAMIDE 2 MG CAP PO STA (06:34)
[2024-07-24] MEDS ORDERED: diphenhydrAMINE 50 MG/ML 1 ML VIAL IVP PRN (08:39)
[2024-07-24] MEDS ORDERED: INFLIXIMAB-DYYB 100 MG VIAL IV SCH (08:45)
[2024-07-24] MEDS ORDERED: DULoxetine HCL 60 MG CAPSULE.DR PO SCH (09:00)
[2024-07-24] MEDS ORDERED: BACLOFEN 10 MG TAB PO SCH (09:00)
[2024-07-24] MEDS: methylPREDNISolone SOD SUCCI 125 MG/2 ML VIAL IV SCH (09:08)
[2024-07-24] MEDS: ONDANSETRON 4 MG/2 ML VIAL IVP PRN (09:09)
[2024-07-24] MEDS: HYDROcodone/APAP 5-325MG 1 EACH TAB PO PRN (09:09)
[2024-07-24] MEDS: GABAPENTIN 300 MG CAP PO SCH (09:10)
[2024-07-24] MEDS: methocarbamoL 500 MG TAB PO SCH (09:10)
[2024-07-24] MEDS: LEVOTHYROXINE 112 MCG TAB PO SCH (09:11)
[2024-07-24] MEDS: PANTOPRAZOLE 40 MG TABLET PO SCH (09:33)
[2024-07-24] MEDS: BACLOFEN 10 MG TAB PO SCH (10:45)
[2024-07-24] MEDS: ALPRAZolam 0.25 MG TAB PO SCH (11:27)
[2024-07-24] MEDS: IPRATROPIUM-ALBUTEROL 3 ML NEB INHALATION SCH (12:11)
[2024-07-24] MEDS: HYDROmorphone 0.5 MG/0.5 ML SYRINGE IVP PRN (14:54)
[2024-07-24 19:59] LABS: Glucose,Whole Blood 242 mg/dL (70-110)
[2024-07-24] MEDS: diphenhydrAMINE 50 MG/ML 1 ML VIAL IVP PRN (20:36)
[2024-07-24] MEDS: INSULIN LISPRO (HumaLOG) 100 UNIT/ML 10 mL VL SQ SCH (20:37)
--- NOTE | 2024-07-25 03:52 | HP ---
HISTORY AND PHYSICAL HISTORY OF PRESENT ILLNESS: A 54-year-old white female admitted for flare of her sarcoidosis. She was given high- dose steroids for 3 days, then she will go home. Home medications were reordered. Her pain and muscle problems are much better since the IV steroids were given. Prognosis guarded. Ambulate as tolerated. Please see further orders. Follow up as an outpatient. Another 2 days IV steroids and we will be able to send her home. HOME MEDICATIONS: Include, 1. DuoNeb t.i.d. 2. Neurontin 300 t.i.d. 3. Benadryl p.r.n. 4. Lioresal 10 mg t.i.d. 5. NovoLog insulin. 6. Synthroid 112 mcg daily. 7. Zofran 4 mg q.6h p.r.n. 8. Protonix 40 b.i.d. 9. Percocet 10 b.i.d. 10.Requip 3 mg t.i.d. FAMILY HISTORY: Reviewed. SOCIAL HISTORY: Reviewed. Please see old chart. PAST SURGICAL HISTORY: See old chart. ASSESSMENT: Acute on chronic sarcoidosis flare, asthma, chronic obstructive pulmonary disease, insulin-dependent diabetes mellitus, gastroesophageal reflux disease, generalized weakness and muscle joint pain. Prognosis guarded. Continue with IV steroids. Please see further orders. MMODL / IJN: [id number] /
[2024-07-25 07:04] LABS: Glucose,Whole Blood 170 mg/dL (70-110)
[2024-07-25 11:58] LABS: Glucose,Whole Blood 214 mg/dL (70-110)
[2024-07-25 17:02] LABS: Glucose,Whole Blood 187 mg/dL (70-110)
[2024-07-25 20:28] LABS: Glucose,Whole Blood 167 mg/dL (70-110)
[2024-07-26 07:01] LABS: Glucose,Whole Blood 181 mg/dL (70-110)
[2024-07-26 12:06] LABS: Glucose,Whole Blood 241 mg/dL (70-110)
--- NOTE | 2024-07-26 14:09 | P.HPIM ---
History of Present Illness H&P Date: 07/26/24 Chief Complaint: Generalized aches and pains 54-year-old morbidly obese female with history of chronic pain syndrome came into the hospital with back pain joint pain which she feels pain was associated with sarcoidosis, patient has been on high-dose IV steroids for 3 days. Patient has been recently resumed on home medicine Her prior medical history significant for major depression, hypothyroidism, restless leg syndrome, chronic pain syndrome, GERD, chronic migraine headache, multiple sclerosis, generalized anxiety disorder, chronic asthma, patient is a pain pump with morphine as well as takes. Neurontin labs pending blood sugars 240 Review of Systems All systems: negative Past Medical History Past Medical History: Asthma, Diabetes Mellitus, GERD/Reflux, Musculoskeletal Disorder, Neurologic Disorder, Sleep Apnea/CPAP/BIPAP, Thyroid Disorder Additional Past Medical History / Comment(s): MS, back pain, DDD, optic neuritis, Gastroparesis., C-Diff (June 2018) leukopenia (sores in mouth) migraines, sleep apnea due to M.S. (no machine), sarcoidosis, cyst in stomach. , hopitalized 10/04/19 after lumbar puncture because heart rate dropped, hospitalized 10/10/19 for headache (post l.p.), states allergy to all adhesive and needs benadryl IV 50mg prior to using tape or tegaderm etc. HIATAL HERNIA History of Any Multi-Drug Resistant Organisms: C-DIFF Date of last positivie culture/infection: 2018 MDRO Source:: stool Past Surgical History: Bladder Surgery, Breast Surgery, Hernia Repair, Hysterectomy, Orthopedic Surgery, Tubal Ligation Additional Past Surgical History / Comment(s): rhinoplasty, bladder suspension, breast sx, morphine pump, RT KNEE SCOPE, TUMMY TUCK, Spinal cord stimulator inserted and removed. port august 2019 but removed and new one placed on left side, gastroparesis botox and EGD 11/06/2019, breast implants, gastric surgery (g-poem) 05/05/20, Stent placed on kidney, hernia repair X2,COLONOSCOPY Past Anesthesia/Blood Transfusion Reactions: Motion Sickness, Postoperative Nausea & Vomiting (PONV) Additional Past Anesthesia/Blood Transfusion Reaction / Comment(s): NO HX BLOOD TRANSFUSION Past Psychological History: Anxiety Additional Psychological History / Comment(s): . Smoking Status: Never smoker Past Alcohol Use History: Occasional Past Drug Use History: None Reported - Past Family History Father History Unknown: Yes Family Medical History: No Reported History Additional Family Medical History / Comment(s): . Mother History Unknown: Yes Family Medical History: No Reported History Additional Family Medical History / Comment(s): NO FAMILY HISTORY Brother(s) Additional Family Medical History / Comment(s): one brother in sLeep from CHF, and one of heroin overdose both at age of 27 Medications and Allergies Home Medications Medication Instructions Recorded Confirmed Type Levothyroxine Sodium [Synthroid] 112 mcg PO DAILY 12/05/18 07/24/24 History rOPINIRole HCL [Requip] 2 mg PO TID 12/05/18 07/24/24 History Baclofen 10 mg PO TID 04/29/19 07/24/24 History Ondansetron Odt [Zofran ODT] 8 mg PO DAILY PRN 11/13/19 07/24/24 History Pantoprazole Sodium [Protonix] 40 mg PO BID 05/10/20 07/24/24 History SUMAtriptan succinate 6 mg SQ BID PRN 05/10/20 07/24/24 History Infliximab-Dyyb [Inflectra] 1 dose IV Q42D 05/23/20 07/24/24 History ALPRAZolam [Xanax] 0.25 mg PO BID 11/05/22 07/24/24 History Albuterol Inhaler [Ventolin Hfa 2 puff INHALATION RT-Q6H PRN 11/05/22 07/24/24 History Inhaler] Albuterol Nebulized [Ventolin 2.5 mg INHALATION RT-QID PRN 07/12/23 07/24/24 History Nebulized] Gabapentin 300 mg PO TID 03/22/24 07/24/24 History oxyCODONE-APAP 10-325MG [Percocet 1 tab PO BID PRN 7 Days #14 tab 03/25/24 07/24/24 Rx 10-325 mg] Ipratropium-Albuterol Nebulize 3 ml INHALATION RT-QID each 04/10/24 07/24/24 Rx [Duoneb 0.5 mg-3 mg/3 ml Soln] Morphine Pump 05/27/24 History Vyepti Infusion 100 mg IV Q90D 05/27/24 07/24/24 History Cholecalciferol (Vitamin D3) 1,250 mcg PO WE 07/24/24 07/24/24 History [Vitamin D3 (1250 Mcg = 50,000 Iu)] Allergies Allergy/AdvReac Type Severity Reaction Status Date / Time adhesive Allergy Severe Rash/Hives Verified 07/24/24 09:16 adhesive tape Allergy Severe Rash/Hives Verified 07/24/24 09:16 fentanyl Allergy Severe Rash/Hives Verified 07/24/24 09:16 from patch only latex Allergy Severe Rash/Hives Verified 07/24/24 09:16 metoclopramide [From Reglan] Allergy dystonia Verified 07/24/24 09:16 from IV Reglan micafungin Allergy Diarrhea Verified 07/24/24 09:16 prochlorperazine Allergy dystonia Verified 07/24/24 09:16 [From Compazine] Physical Exam Vitals: Vital Signs Temp Pulse Resp BP Pulse Ox 07/26/24 12:39 98.2 F 60 16 108/68 97 07/26/24 07:01 98.1 F 55 L 16 111/69 94 L 07/26/24 01:08 98.0 F 57 L 18 104/67 97 07/25/24 19:02 98.5 F 74 18 116/69 Intake and Output 07/25/24 07/26/24 07/26/24 22:59 06:59 14:59 Intake Total 300 Balance 300 Intake: Oral 300 Other: Voiding Method Toilet # Voids 1 General: Well-appearing, nontoxic, no acute distress. Head: Normocephalic, atraumatic Eyes: PERRLA, EOMI ENT: Airway patent Chest: Nonlabored breathing Skin: No visual rash, normal skin tone Neuro: Alert and oriented 3 Musculoskeletal: No gross abnormalities Results CBC & Chem 7: 07/23/24 23:15 07/23/24 23:15 Labs: Abnormal Lab Results - Last 24 Hours (Table) 07/25/24 07/25/24 07/26/24 Range/Units 17:00 20:27 07:00 POC Glucose (mg/dL) 187 H 167 H 181 H (70-110) mg/dL 07/26/24 Range/Units 12:04 POC Glucose (mg/dL) 241 H (70-110) mg/dL Thrombosis Risk Factor Assmnt - Choose All That Apply Any of the Below Risk Factors Present?: Yes Each Factor Represents 1 point: Age 41-60 years, Obesity (BMI >25) Each Risk Factor Represents 3 Points: History of DVT/PE Thrombosis Risk Factor Assessment Total Risk Factor Score: 5 Thrombosis Risk Factor Assessment Level: High Risk Assessment and Plan Assessment: Acute exacerbation sarcoidosis on high-dose IV steroid Type 2 diabetes mellitus hyperglycemia, continue short and long-acting insulin Hypothyroidism on replacement therapy with Synthroid Hyperemesis and gastroparesis, on Zofran as needed Chronic pain syndrome, continue Percocet and Dilaudid as needed GERD, on Protonix Restless leg syndrome, continue Requip Intravascular volume depletion dehydration, continue gentle rehydration Chronic asthma without exacerbation continue bronchodilators Plan: As above Time with Patient: Greater than 30
[2024-07-26 17:02] LABS: Glucose,Whole Blood 157 mg/dL (70-110)
[2024-07-26 20:17] LABS: Glucose,Whole Blood 194 mg/dL (70-110)
[2024-07-27 07:09] LABS: Glucose,Whole Blood 193 mg/dL (70-110)
--- NOTE | 2024-07-27 09:55 | P.PN ---
Subjective Progress Note Date: 07/27/24 Principal diagnosis: Acute exacerbation sarcoidosis on high-dose pulse IV steroid Type 2 diabetes mellitus hyperglycemia, continue short and long-acting insulin Hypothyroidism on replacement therapy with Synthroid Hyperemesis and gastroparesis, on Zofran as needed Chronic pain syndrome, continue Percocet and Dilaudid as needed GERD, on Protonix Restless leg syndrome, continue Requip Intravascular volume depletion dehydration, continue gentle rehydration Chronic asthma without exacerbation continue bronchodilators July 27, 2024, patient seen eval examined during rounds labs reviewed medications reviewed patient continue complain of aches and pain in the joint, p joel has been on high-dose pulse IV steroid therapy for acute exacerbation of sarcoid associated arthropathy, patient has chronic symptoms of gastroparesis with nausea overall they are stable has been tolerating clear liquid diet fairly well, blood sugar stable 193 has been on short and long-acting insulin 54-year-old morbidly obese female with history of chronic pain syndrome came into the hospital with back pain joint pain which she feels pain was associated with sarcoidosis, patient has been on high-dose IV steroids for 3 days. Patient has been recently resumed on home medicine Her prior medical history significant for major depression, hypothyroidism, restless leg syndrome, chronic pain syndrome, GERD, chronic migraine headache, multiple sclerosis, generalized anxiety disorder, chronic asthma, patient is a pain pump with morphine as well as takes. Neurontin labs pending blood sugars 240 Objective - Vital Signs Vital signs: Vital Signs Temp 98.3 F 07/27/24 07:05 Pulse 59 L 07/27/24 07:05 Resp 16 07/27/24 07:05 BP 144/87 07/27/24 07:05 Pulse Ox 94 L 07/27/24 07:05 FiO2 Intake & Output 07/26/24 07/27/24 07/27/24 18:59 06:59 18:59 Intake Total 1860 480 Balance 1860 480 Intake: Oral 1860 480 Other: Voiding Method Toilet # Voids 3 1 - Exam General: Well-appearing, nontoxic, no acute distress. Head: Normocephalic, atraumatic Eyes: PERRLA, EOMI ENT: Airway patent Chest: Nonlabored breathing Skin: No visual rash, normal skin tone Neuro: Alert and oriented 3 Musculoskeletal: No gross abnormalities - Labs CBC & Chem 7: 07/23/24 23:15 07/23/24 23:15 Labs: Abnormal Lab Results - Last 24 Hours (Table) 07/26/24 07/26/24 07/26/24 Range/Units 12:04 16:58 20:14 POC Glucose (mg/dL) 241 H 157 H 194 H (70-110) mg/dL 07/27/24 Range/Units 07:07 POC Glucose (mg/dL) 193 H (70-110) mg/dL Assessment and Plan Assessment: Acute exacerbation sarcoidosis on high-dose IV steroid Sarcoidosis associated arthralgia and diffuse arthritis with exacerbation Type 2 diabetes mellitus hyperglycemia, continue short and long-acting insulin Hypothyroidism on replacement therapy with Synthroid Hyperemesis and gastroparesis, on Zofran as needed Chronic pain syndrome, continue Percocet and Dilaudid as needed GERD, on Protonix Restless leg syndrome, continue Requip Intravascular volume depletion dehydration, continue gentle rehydration Chronic asthma without exacerbation continue bronchodilators Plan: As above Time with Patient: Greater than 30
[2024-07-27 12:11] LABS: Glucose,Whole Blood 194 mg/dL (70-110)
[2024-07-27 17:10] LABS: Glucose,Whole Blood 226 mg/dL (70-110)
[2024-07-27 20:16] LABS: Glucose,Whole Blood 184 mg/dL (70-110)
[2024-07-28 06:37] LABS: Glucose,Whole Blood 185 mg/dL (70-110)
--- NOTE | 2024-07-28 10:30 | P.PN ---
Subjective Progress Note Date: 07/28/24 Principal diagnosis: Acute exacerbation sarcoidosis on high-dose pulse IV steroid Type 2 diabetes mellitus hyperglycemia, continue short and long-acting insulin Hypothyroidism on replacement therapy with Synthroid Hyperemesis and gastroparesis, on Zofran as needed Chronic pain syndrome, continue Percocet and Dilaudid as needed GERD, on Protonix Restless leg syndrome, continue Requip Intravascular volume depletion dehydration, continue gentle rehydration Chronic asthma without exacerbation continue bronchodilators July 28, 2024, patient seen eval examined during rounds labs reviewed medication care plan discussed, sugars are mid 200 range, patient remains on pul se IV steroid therapy, will get follow-up chest x-ray and labs previously they were done as outpatient, hemodynamic status overall stable continue to have pain discomfort in the joints slightly improved however emesis and nausea better under control tolerating diet July 27, 2024, patient seen eval examined during rounds labs reviewed medications reviewed patient continue complain of aches and pain in the joint, patient has been on high-dose pulse IV steroid therapy for acute exacerbation of sarcoid associated arthropathy, patient has chronic symptoms of gastroparesis with nausea overall they are stable has been tolerating clear liquid diet fairly well, blood sugar stable 193 has been on short and long-acting insulin 54-year-old morbidly obese female with history of chronic pain syndrome came into the hospital with back pain joint pain which she feels pain was associated with sarcoidosis, patient has been on high-dose IV steroids for 3 days. Patient has been recently resumed on home medicine Her prior medical history significant for major depression, hypothyroidism, restless leg syndrome, chronic pain syndrome, GERD, chronic migraine headache, multiple sclerosis, generalized anxiety disorder, chronic asthma, patient is a pain pump with morphine as well as takes. Neurontin labs pending blood sugars 240 Objective - Vital Signs Vital signs: Vital Signs Temp 98.2 F 07/28/24 06:35 Pulse 52 L 07/28/24 06:35 Resp 16 07/28/24 06:35 BP 165/84 07/28/24 06:35 Pulse Ox 94 L 07/28/24 06:35 FiO2 Intake & Output 07/27/24 07/28/24 07/28/24 18:59 06:59 18:59 Intake Total 3050 200 480 Balance 3050 200 480 Intake: Oral 3050 200 480 Other: Voiding Method Toilet Toilet # Voids 5 1 - Exam General: Well-appearing, nontoxic, no acute distress. Head: Normocephalic, atraumatic Eyes: PERRLA, EOMI ENT: Airway patent Chest: Nonlabored breathing Skin: No visual rash, normal skin tone Neuro: Alert and oriented 3 Musculoskeletal: No gross abnormalities - Labs CBC & Chem 7: 07/23/24 23:15 07/23/24 23:15 Labs: Abnormal Lab Results - Last 24 Hours (Table) 07/27/24 07/27/24 07/27/24 Range/Units 12:09 17:08 20:14 POC Glucose (mg/dL) 194 H 226 H 184 H (70-110) mg/dL 07/28/24 Range/Units 06:36 POC Glucose (mg/dL) 185 H (70-110) mg/dL Assessment and Plan Assessment: Acute exacerbation sarcoidosis on high-dose IV steroid Sarcoidosis associated arthralgia and diffuse arthritis with exacerbation Type 2 diabetes mellitus hyperglycemia, continue short and long-acting insulin Hypothyroidism on replacement therapy with Synthroid Hyperemesis and gastroparesis, on Zofran as needed Chronic pain syndrome, continue Percocet and Dilaudid as needed GERD, on Protonix Restless leg syndrome, continue Requip Intravascular volume depletion dehydration, continue gentle rehydration Chronic asthma without exacerbation continue bronchodilators Plan: As above obtain follow-up labs and x-ray Time with Patient: Greater than 30
[2024-07-28 12:13] LABS: Glucose,Whole Blood 194 mg/dL (70-110)
[2024-07-28 16:57] LABS: Glucose,Whole Blood 191 mg/dL (70-110)
[2024-07-28 20:35] LABS: Glucose,Whole Blood 429 mg/dL (70-110)
[2024-07-28] MEDS: oxyCODONE-APAP 10-325MG 1 EACH TAB PO PRN (20:52)
[2024-07-29 07:07] LABS: Glucose,Whole Blood 187 mg/dL (70-110)
--- NOTE | 2024-07-29 07:58 | XR ---
EXAMINATION TYPE: XR chest 1V portable DATE OF EXAM: 07/29/2024 7:44 AM COMPARISON: 05/06/2024 CLINICAL INDICATION: Female, 54 years old with history of Sarcoidosis, TECHNIQUE: XR chest 1V portable views of the chest are obtained. FINDINGS: Demonstrated are scattered senescent parenchymal change. There is no evidence for focal infiltrate. Central venous line unchanged in position. The heart is stable. Hilar and mediastinal structures are within normal limits. Degenerative changes are seen of the dorsal spine. IMPRESSION: 1. Chronic changes without evidence for acute pulmonary disease. [facility], , 07/29/2024 7:55 AM
[2024-07-29 08:49] LABS: Basophils # (A) 0 X 10*3/uL (0.00-0.10); Basophils % (A) 0 %; Eosinophils # (A) 0 X 10*3/uL (0.04-0.35); Eosinophils % (A) 0 %; HCT 34.5 % (37.2-46.3); HGB 10.8 g/dL (12.0-15.0); Lymphocytes # (A) 0.89 X 10*3/uL (0.90-5.00); Lymphocytes % (A) 18.7 %; MCH 26.9 pg (27.0-32.0); MCHC 31.3 g/dL (32.0-37.0); MCV 85.8 FL (80.0-97.0); Mean Platelet Volume 10.6 FL (9.5-12.2); Monocytes # (A) 0.19 X 10*3/uL (0.20-1.00); NRBC Per 100 WBC 0.02 X 10*3/uL (0.00-0.01); Neutrophils # (A) 3.64 X 10*3/uL (1.80-7.70); Neutrophils % (A) 76.3 %; Platelet Count 250 X 10*3/uL (140-440); RBC 4.02 X 10*6/uL (4.10-5.20); RDW 14.6 % (11.5-14.5); WBC 4.77 X 10*3/uL (4.50-10.00)
[2024-07-29 09:34] LABS: ALT 17 U/L (8-44); AST 13 U/L (13-35); Albumin 3.5 g/dL (3.8-4.9); Albumin/Globulin Ratio 1.67 Ratio (1.60-3.17); Alkaline Phosphatase 63 U/L (41-126); BUN/Creat Ratio 31.88 Ratio (12.00-20.00); Blood Urea Nitrogen 25.5 mg/dL (9.0-27.0); Carbon Dioxide 30.9 mmol/L (21.6-31.8); Chloride 104 mmol/L (96-109); Globulin 2.1 g/dL (1.6-3.3); Glucose 176 mg/dL (70-110); Potassium 4.5 mmol/L (3.5-5.5); Sodium 142 mmol/L (135-145); Total Bilirubin 0.3 mg/dL (0.3-1.2); Total Protein 5.6 g/dL (6.2-8.2)
--- NOTE | 2024-07-29 10:07 | P.PN ---
Subjective Progress Note Date: 07/29/24 Principal diagnosis: Uncontrolled hypertension Acute exacerbation sarcoidosis on high-dose pulse IV steroid Type 2 diabetes mellitus hyperglycemia, continue short and long-acting insulin Hypothyroidism on replacement therapy with Synthroid Hyperemesis and gastroparesis, on Zofran as needed Chronic pain syndrome, continue Percocet and Dilaudid as needed GERD, on Protonix Restless leg syndrome, continue Requip Intravascular volume depletion dehydration, continue gentle rehydration Chronic asthma without exacerbation continue bronchodilators July 29, 2024, patient seen eval examined during rounds labs reviewed medications and care plan discussed, patient severity of joint pain and arthralgia slightly better, nausea still there but able to tolerate p.o., no overt throwing or nausea vomiting has been noted. Labs from today reviewed WBC within normal limit hemoglobin hematocrit 10/34 platelet count 250, chemistry fairly within normal limit blood glucose 176. Patient's blood pressure however running on the higher side patient has a history of hypotension, oxygen saturation is 95% on room air, heart rate is 60-76 at times it was in 50s, patient is afebrile last set of blood pressure was 143/82 prior to that has been consistently around systolic 140-160 this morning was 167/97, will start low- dose Norvasc and monitor closely. Chest x-ray from today reviewed some chronic changes is are seen however no acute pulmonary process identified July 28, 2024, patient seen eval examined during rounds labs reviewed medication care plan discussed, sugars are mid 200 range, patient remains on pulse IV steroid therapy, will get follow-up chest x-ray and labs previously they were done as outpatient, hemodynamic status overall stable continue to have pain discomfort in the joints slightly improved however emesis and nausea better under control tolerating diet July 27, 2024, patient seen eval examined during rounds labs reviewed medications reviewed patient continue complain of aches and pain in the joint, patient has been on high-dose pulse IV steroid therapy for acute exacerbation of sarcoid associated arthropathy, patient has chronic symptoms of gastroparesis with nausea overall they are stable has been tolerating clear liquid diet fairly well, blood sugar stable 193 has been on short and long-acting insulin 54-year-old morbidly obese female with history of chronic pain syndrome came into the hospital with back pain joint pain which she feels pain was associated with sarcoidosis, patient has been on high-dose IV steroids for 3 days. Patient has been recently resumed on home medicine Her prior medical history significant for major depression, hypothyroidism, restless leg syndrome, chronic pain syndrome, GERD, chronic migraine headache, multiple sclerosis, generalized anxiety disorder, chronic asthma, patient is a pain pump with morphine as well as takes. Neurontin labs pending blood sugars 240 Objective - Vital Signs Vital signs: Vital Signs Temp 98.9 F 07/29/24 07:43 Pulse 76 07/29/24 09:40 Resp 16 07/29/24 07:43 BP 143/82 07/29/24 09:40 Pulse Ox 94 L 07/29/24 07:43 FiO2 Intake & Output 07/28/24 07/29/24 07/29/24 18:59 06:59 18:59 Intake Total 2280 Balance 2280 Intake: Oral 2280 Other: Voiding Method Toilet # Voids 5 1 # Bowel Movements 1 - Exam General: Well-appearing, nontoxic, no acute distress. Head: Normocephalic, atraumatic Eyes: PERRLA, EOMI ENT: Airway patent Chest: Nonlabored breathing Skin: No visual rash, normal skin tone Neuro: Alert and oriented 3 Musculoskeletal: No gross abnormalities - Labs CBC & Chem 7: 07/29/24 05:48 07/29/24 05:48 Labs: Abnormal Lab Results - Last 24 Hours (Table) 07/28/24 07/28/24 07/28/24 Range/Units 12:12 16:56 20:32 RBC (4.10-5.20) X 10*6/uL Hgb (12.0-15.0) g/dL Hct (37.2-46.3) % MCH (27.0-32.0) pg MCHC (32.0-37.0) g/dL RDW (11.5-14.5) % Immature Gran # (0.00-0.04) X 10*3/uL Lymphocytes # (0.90-5.00) X 10*3/uL Monocytes # (0.20-1.00) X 10*3/uL Eosinophils # (0.04-0.35) X 10*3/uL NRBC/100 WBC Diff (0.00-0.01) X 10*3/uL BUN/Creatinine Ratio (12.00-20.00) Ratio Glucose (70-110) mg/dL POC Glucose (mg/dL) 194 H 191 H 429 H (70-110) mg/dL Calcium (8.7-10.3) mg/dL Total Protein (6.2-8.2) g/dL Albumin (3.8-4.9) g/dL 07/29/24 07/29/24 07/29/24 Range/Units 05:48 05:48 06:56 RBC 4.02 L (4.10-5.20) X 10*6/uL Hgb 10.8 L (12.0-15.0) g/dL Hct 34.5 L (37.2-46.3) % MCH 26.9 L (27.0-32.0) pg MCHC 31.3 L (32.0-37.0) g/dL RDW 14.6 H (11.5-14.5) % Immature Gran # 0.05 H (0.00-0.04) X 10*3/uL Lymphocytes # 0.89 L (0.90-5.00) X 10*3/uL Monocytes # 0.19 L (0.20-1.00) X 10*3/uL Eosinophils # 0 L (0.04-0.35) X 10*3/uL NRBC/100 WBC Diff 0.02 H (0.00-0.01) X 10*3/uL BUN/Creatinine Ratio 31.88 H (12.00-20.00) Ratio Glucose 176 H (70-110) mg/dL POC Glucose (mg/dL) 187 H (70-110) mg/dL Calcium 8.0 L (8.7-10.3) mg/dL Total Protein 5.6 L (6.2-8.2) g/dL Albumin 3.5 L (3.8-4.9) g/dL Assessment and Plan Assessment: Acute exacerbation sarcoidosis on high-dose IV steroid Sarcoidosis associated arthralgia and diffuse arthritis with exacerbation Type 2 diabetes mellitus hyperglycemia, continue short and long-acting insulin Hypothyroidism on replacement therapy with Synthroid Hyperemesis and gastroparesis, on Zofran as needed Chronic pain syndrome, continue Percocet and Dilaudid as needed GERD, on Protonix Restless leg syndrome, continue Requip Intravascular volume depletion dehydration, continue gentle rehydration Chronic asthma without exacerbation continue bronchodilators Plan: As above obtain follow-up labs and x-ray
[2024-07-29] MEDS: amLODIPine 2.5 MG TAB PO SCH (10:36)
[2024-07-29 12:38] LABS: Glucose,Whole Blood 137 mg/dL (70-110)
[2024-07-29 17:08] LABS: Glucose,Whole Blood 215 mg/dL (70-110)
[2024-07-29 20:54] LABS: Glucose,Whole Blood 189 mg/dL (70-110)
[2024-07-29] MEDS: LOPERAMIDE 2 MG CAP PO PRN (21:08)
[2024-07-29] MEDS: PROMETHAZINE 25 MG TAB PO PRN (23:30)
[2024-07-30 07:38] LABS: Glucose,Whole Blood 156 mg/dL (70-110)
[2024-07-30 08:12] VITALS: BP 144/85; PULSE 52; RESP 17; TEMP 99.3
--- NOTE | 2024-07-30 10:47 | P.DS ---
Providers Date of admission: 07/26/24 07:30 Expected date of discharge: 07/30/24 Attending physician: Sean Wynne [facility] Course: July 30, 2024 today's exam she is awake and alert some discomfort in joint is present but significantly improved compared to time of admission, some loose stool is present, blood pressure is well-controlled offered Norvasc to be continued outpatient patient wants to hold on it we will discuss with primary care doctor. Sugar latest was 156 July 29, 2024, patient seen eval examined during rounds labs reviewed medications and care plan discussed, patient severity of joint pain and arthralgia slightly better, nausea still there but able to tolerate p.o., no overt throwing or nausea vomiting has been noted. Labs from today reviewed WBC within normal limit hemoglobin hematocrit 10/34 platelet count 250, chemistry fairly within normal limit blood glucose 176. Patient's blood pressure however running on the higher side patient has a history of hypotension, oxygen saturation is 95% on room air, heart rate is 60-76 at times it was in 50s, patient is afebrile last set of blood pressure was 143/82 prior to that has been consistently around systolic 140-160 this morning was 167/97, will start low- dose Norvasc and monitor closely. Chest x-ray from today reviewed some chronic changes is are seen however no acute pulmonary process identified July 28, 2024, patient seen eval examined during rounds labs reviewed medication care plan discussed, sugars are mid 200 range, patient remains on pulse IV steroid therapy, will get follow-up chest x-ray and labs previously they were done as outpatient, hemodynamic status overall stable continue to have pain discomfort in the joints slightly improved however emesis and nausea better under control tolerating diet July 27, 2024, patient seen eval examined during rounds labs reviewed medications reviewed patient continue complain of aches and pain in the joint, patient has been on high-dose pulse IV steroid therapy for acute exacerbation of sarcoid associated arthropathy, patient has chronic symptoms of gastroparesis with nausea overall they are stable has been tolerating clear liquid diet fairly well, blood sugar stable 193 has been on short and long-acting insulin 54-year-old morbidly obese female with history of chronic pain syndrome came into the hospital with back pain joint pain which she feels pain was associated with sarcoidosis, patient has been on high-dose IV steroids for 3 days. Patient has been recently resumed on home medicine Her prior medical history significant for major depression, hypothyroidism, restless leg syndrome, chronic pain syndrome, GERD, chronic migraine headache, multiple sclerosis, generalized anxiety disorder, chronic asthma, patient is a pain pump with morphine as well as takes. Neurontin labs pending blood sugars 240 Assessment: Acute exacerbation sarcoidosis on high-dose pulse IV steroid Type 2 diabetes mellitus hyperglycemia, continue short and long-acting insulin Hypothyroidism on replacement therapy with Synthroid Hyperemesis and gastroparesis, on Zofran as needed Chronic pain syndrome, continue Percocet and Dilaudid as needed GERD, on Protonix Restless leg syndrome, continue Requip Intravascular volume depletion dehydration, continue gentle rehydration Patient Condition at Discharge: Fair Plan - Discharge Summary New Discharge Prescriptions: No Action rOPINIRole HCL [Requip] 2 mg PO TID Levothyroxine Sodium [Synthroid] 112 mcg PO DAILY Baclofen 10 mg PO TID Ondansetron Odt [Zofran ODT] 8 mg PO DAILY PRN PRN Reason: Nausea Pantoprazole Sodium [Protonix] 40 mg PO BID SUMAtriptan succinate 6 mg SQ BID PRN PRN Reason: Migraine Headache Infliximab-Dyyb [Inflectra] 1 dose IV Q42D ALPRAZolam [Xanax] 0.25 mg PO BID Albuterol Inhaler [Ventolin Hfa Inhaler] 2 puff INHALATION RT-Q6H PRN PRN Reason: Shortness Of Breath Albuterol Nebulized [Ventolin Nebulized] 2.5 mg INHALATION RT-QID PRN PRN Reason: Shortness Of Breath oxyCODONE-APAP 10-325MG [Percocet 10-325 mg] 1 tab PO BID PRN 7 Days #14 tab PRN Reason: Pain Ipratropium-Albuterol Nebulize [Duoneb 0.5 mg-3 mg/3 ml Soln] 3 ml INHALATION RT-QID each Gabapentin 300 mg PO TID Vyepti Infusion 100 mg IV Q90D Morphine Pump Cholecalciferol (Vitamin D3) [Vitamin D3 (1250 Mcg = 50,000 Iu)] 1,250 mcg PO WE Discharge Medication List Levothyroxine Sodium [Synthroid] 112 mcg PO DAILY 12/05/18 [History] rOPINIRole HCL [Requip] 2 mg PO TID 12/05/18 [History] Baclofen 10 mg PO TID 04/29/19 [History] Ondansetron Odt [Zofran ODT] 8 mg PO DAILY PRN 11/13/19 [History] Pantoprazole Sodium [Protonix] 40 mg PO BID 05/10/20 [History] SUMAtriptan succinate 6 mg SQ BID PRN 05/10/20 [History] Infliximab-Dyyb [Inflectra] 1 dose IV Q42D 05/23/20 [History] ALPRAZolam [Xanax] 0.25 mg PO BID 11/05/22 [History] Albuterol Inhaler [Ventolin Hfa Inhaler] 2 puff INHALATION RT-Q6H PRN 11/05/22 [History] Albuterol Nebulized [Ventolin Nebulized] 2.5 mg INHALATION RT-QID PRN 07/12/23 [History] Gabapentin 300 mg PO TID 03/22/24 [History] oxyCODONE-APAP 10-325MG [Percocet 10-325 mg] 1 tab PO BID PRN 7 Days #14 tab 03/25/24 [Rx] Ipratropium-Albuterol Nebulize [Duoneb 0.5 mg-3 mg/3 ml Soln] 3 ml INHALATION RT-QID each 04/10/24 [Rx] Morphine Pump 05/27/24 [History] Vyepti Infusion 100 mg IV Q90D 05/27/24 [History] Cholecalciferol (Vitamin D3) [Vitamin D3 (1250 Mcg = 50,000 Iu)] 1,250 mcg PO WE 07/24/24 [History] Follow up Appointment(s)/Referral(s): Tila Gamble MD [Primary Care Provider] - 1-2 days Discharge Disposition: HOME SELF-CARE
== END 2024-07-30 11:29 | disposition home or self-care (01) | DRG 198 ==
LOC: EC 18:56 → 1SOBS 07-24 00:07 → 5NMEDONC 07-24 06:34 → OBSVTOIN 07-26 07:30
PROVIDERS: ADMIT Family Medicine; ATTEND Family Medicine
DX: D86.9 Sarcoidosis, unspecified (principal); E03.9 Hypothyroidism, unspecified; E11.43 Type 2 diabetes mellitus with diabetic autonomic (poly)neuropathy; E66.01 Morbid (severe) obesity due to excess calories; J44.89 Other specified chronic obstructive pulmonary disease; G35 Multiple sclerosis; I10 Essential (primary) hypertension; G25.81 Restless legs syndrome; E11.65 Type 2 diabetes mellitus with hyperglycemia; Z79.4 Long term (current) use of insulin; E86.0 Dehydration; F41.9 Anxiety disorder, unspecified; R11.10 Vomiting, unspecified; E86.9 Volume depletion, unspecified; G89.4 Chronic pain syndrome; G43.909 Migraine, unspecified, not intractable, without status migrainosus; K21.9 Gastro-esophageal reflux disease without esophagitis; K31.84 Gastroparesis; M19.90 Unspecified osteoarthritis, unspecified site; Z79.890 Hormone replacement therapy; Z79.899 Other long term (current) drug therapy; Z82.49 Family history of ischemic heart disease and other diseases of the circulatory system; Z90.710 Acquired absence of both cervix and uterus; Z98.82 Breast implant status; Z88.5 Allergy status to narcotic agent; Z91.040 Latex allergy status; Z91.048 Other nonmedicinal substance allergy status; Z87.19 Personal history of other diseases of the digestive system; Z81.1 Family history of alcohol abuse and dependence; Z88.8 Allergy status to other drugs, medicaments and biological substances
CPT/HCPCS: 36415; 71045; 80053; 83036; 85025; 93005; 96361; 96365; 96366; 96375; 96376; 99285